=== PATIENT | female | born 1940 | race Caucasian/White ===

== ENCOUNTER 2016-04-09 15:07 | Inpatient (IN) | payer MEDICARE, OTHER ==
[2016-04-09] MEDS ORDERED: HEPARIN SOD (PORCINE) 1,000 UNIT/ML 10 ML VIAL IV PRN ×2 (15:45→16:29)
[2016-04-09 16:26] LABS: HEMATOCRIT 40.7 % (36.0-47.0); HEMOGLOBIN 13.1 g/dL (12.0-15.5); HGB HCT DIFFERENCE -1.4; MEAN CORPUSCULAR HEMOGLOBIN 29.4 pg (27.0-33.4); MEAN CORPUSCULAR HGB CONC 32.2 g/dL (32.0-36.0); MEAN CORPUSCULAR VOLUME 91 fl (80-97); RED BLOOD COUNT 4.46 10^6/uL (3.72-5.28); RED CELL DISTRIBUTION WIDTH 16.1 % (11.5-14.0); WHITE BLOOD COUNT 9.5 10^3/uL (4.0-10.5)
[2016-04-09 16:45] LABS: PROTHROMBIN TIME 12.9 SEC (11.4-15.4)
[2016-04-09 16:46] LABS: ALANINE AMINOTRANSFERASE 18 U/L (9-52); ALKALINE PHOSPHATASE 120 U/L (38-126); ANION GAP 13 (5-19); ASPARTATE AMINO TRANSFERASE 20 U/L (14-36); BILIRUBIN,TOTAL 0.2 mg/dL (0.2-1.3); BLOOD UREA NITROGEN 13 mg/dL (7-20); CALCIUM 9.5 mg/dL (8.4-10.2); CARBON DIOXIDE 21 mmol/L (22-30); CHLORIDE 106 mmol/L (98-107); CREATININE RESULT 0.94 mg/dL (0.52-1.25); GLUCOSE 76 mg/dL (75-110); PARTIAL THROMBOPLASTIN TIME 26.5 SEC (23.5-35.8); POTASSIUM 4.7 mmol/L (3.6-5.0); SODIUM 140.1 mmol/L (137-145); TOTAL PROTEIN 7.2 g/dL (6.3-8.2)
[2016-04-09] MEDS: HEPARIN SODIUM,PORCINE/D5W 25,000 UNIT/250 ML RTUINJ IV PRN (17:16)
[2016-04-09] MEDS ORDERED: ALBUTEROL SULFATE 0.083% NEB 2.5 MG/3 ML AMPUL NEB PRN ×2 (20:02→20:47)
[2016-04-09] MEDS ORDERED: (PENDING PHARMACY ID) (Oxycodone Hcl/Acetaminophen [Percocet 7.5-325 Mg Tablet] 1 EACH) PO PRN (20:02)
[2016-04-09] MEDS ORDERED: (PENDING PHARMACY ID) (Buspirone Hcl [Buspar 5 Mg Tablet] 7.5 MG) PO SCH (20:15)
--- NOTE | 2016-04-09 20:18 | PDOC H&P ---
History of Present Illness Admission Date/PCP: 04/09/16 15:07 SARITA CASTILLO History of Present Illness: SUSAN BINGHAM is a 75 year old female patient apparently saw the computer console operator, Dr. Rosen today in the office because of progressive shortness of breath CTA chest was requested and he showed bilateral emphysematous changes. There is residual infiltrate in the right lower lobe posteriorly. There is minimal bibasilar pleural thickening right more than left. There is right basilar atelectasis or scarring there is no effusions. Thrombus in the right lower lobe main pulmonary artery this is increased in size when compared to January. The thrombus extends into the proximal segmental branches. The left pulmonary artery and branches are patent. The amount of thrombosis as increased when compared to January do suggest a new event. She had a history of pulmonary embolism and she was on anticoagulant but this was discontinued. Patient had a long history of COPD and protein calorie on the nutrition a body mass index is 14 and she has a history of chronic tobacco use. DR Rosen called me this morning to advise me of this patient and that she needed to be admitted to the hospital for management of the acute pulmonary embolism, she is a patient of Dr. Castillo but am covering his service this weekend. Past Medical History Cardiac Medical History: Reports: Hyperlipidema, Hypertension, Pulmonary Embolism Pulmonary Medical History: Reports: Asthma, Bronchitis, Chronic Obstructive Pulmonary Disease (COPD), Pneumonia, Respiratory Failure, Sleep Apnea GI Medical History: Reports: Diverticulitis, Gastroesophageal Reflux Disease Musculoskeltal Medical History: Reports: Arthritis Psychiatric Medical History: Reports: Depression Past Surgical History Past Surgical History: Reports: Colostomy - with reversal, 6 years ago, Hysterectomy, Pacemaker Social History Smoking Status: Current Some Day Smoker Number of Years Smokin Last Time Smoked: today Frequency of Alcohol Use: None Hx Recreational Drug Use: No Drugs: None Hx Prescription Drug Abuse: No Family History Family History: CAD - This is in not immediate family members., DM, Hyperlipidemia, Hypertension Parental Family History Reviewed: Yes Children Family History Reviewed: Yes Sibling(s) Family History Reviewed.: Yes Medication/Allergy Home Medications: Acetazolamide [Diamox 250 mg Tab] 250 mg PO Q12 01/13/16 Citalopram Hydrobromide [Celexa] 40 mg PO DAILY 01/13/16 Montelukast Sodium 10 mg PO DAILY 01/13/16 Promethazine HCl 25 mg PO Q6H PRN 01/13/16 Roflumilast [Daliresp 500 mcg Tablet] 500 mcg PO QHS 01/13/16 Ropinirole HCl 1 mg PO TID 01/13/16 Albuterol Sulfate [Albuterol Sulfate 2.5mg/3 mL] 1 inh PO PRN PRN 01/14/16 Clonazepam [Klonopin 1 mg Tablet] 1 mg PO BID 01/14/16 Gabapentin 200 mg PO QPM 01/14/16 Oxycodone HCl/Acetaminophen [Percocet 7.5-325 Mg Tablet] 1 each PO TID PRN 01/13 Buspirone HCl [Buspar 5 mg Tablet] 7.5 mg PO BID 04/09/16 Docusate Sodium [Colace 100 mg Capsule] 100 mg PO DAILY 04/09/16 Zolpidem Tartrate [Ambien 5 mg Tablet] 5 mg PO QHS PRN 04/09/16 Allergies/Adverse Reactions: codeine [Codeine] Allergy (Unknown, Verified 11/04/14 17:36) erythromycin base [Erythromycin Base] Allergy (Unknown, Verified 11/04/14 17:36) Review of Systems Constitutional: ABSENT: chills, fever(s), headache(s), weight gain, weight loss Eyes: ABSENT: visual disturbances Ears: ABSENT: hearing changes Cardiovascular: PRESENT: dyspnea on exertion Respiratory: PRESENT: dyspnea Gastrointestinal: ABSENT: abdominal pain, constipation, diarrhea, hematemesis, hematochezia, nausea, vomiting Genitourinary: ABSENT: dysuria, hematuria Musculoskeletal: ABSENT: joint swelling Integumentary: ABSENT: rash, wounds Neurological: ABSENT: abnormal gait, abnormal speech, confusion, dizziness, focal weakness, syncope Psychiatric: ABSENT: anxiety, depression, homidical ideation, suicidal ideation Endocrine: ABSENT: cold intolerance, heat intolerance, menstrual abnormalities, polydipsia, polyuria Hematologic/Lymphatic: ABSENT: easy bleeding, easy bruising, lymphadenopathy Physical Exam Vital Signs: Temp Pulse Resp BP Pulse Ox 97.8 F 76 22 H 115/67 100 04/09/16 17:08 04/09/16 17:08 04/09/16 17:08 04/09/16 17:08 04/09/16 17:08 Intake & Output 0304/09/16 04/10/16 06:59 06:59 06:59 Intake Total 240 Balance 240 Weight 35.1 kg General appearance: PRESENT: thin Head exam: PRESENT: atraumatic, normocephalic Eye exam: PRESENT: conjunctiva pink, EOMI, PERRLA Ear exam: PRESENT: normal external ear exam Mouth exam: PRESENT: moist, tongue midline Neck exam: PRESENT: full ROM Respiratory exam: PRESENT: decreased breath sounds Cardiovascular exam: PRESENT: RRR, +S1, +S2 Pulses: PRESENT: normal dorsalis pedis pul, +2 pedal pulses bilateral Vascular exam: PRESENT: normal capillary refill GI/Abdominal exam: PRESENT: normal bowel sounds, soft Rectal exam: PRESENT: deferred Neurological exam: PRESENT: alert, awake, oriented to person, oriented to place , oriented to time, oriented to situation, CN II-XII grossly intact Psychiatric exam: PRESENT: appropriate affect, normal mood Skin exam: PRESENT: dry, intact, warm Results Laboratory Results: 04/09/16 16:00 04/09/16 16:00 04/09/16 04/09/16 16:00 16:00 WBC 9.5 RBC 4.46 Hgb 13.1 Hct 40.7 MCV 91 MCH 29.4 MCHC 32.2 RDW 16.1 H Plt Count 261 Sodium 140.1 Potassium 4.7 Chloride 106 Carbon Dioxide 21 L Anion Gap 13 BUN 13 Creatinine 0.94 Est GFR ( Amer) > 60 Est GFR (Non-Af Amer) 58 L Glucose 76 Calcium 9.5 Total Bilirubin 0.2 AST 20 ALT 18 Alkaline Phosphatase 120 Total Protein 7.2 Albumin 4.0 Assessment & Plan - Diagnosis (1) Pulmonary embolism Qualifiers: Pulmonary embolism type: other Chronicity: acute Acute cor pulmonale presence: without acute cor pulmonale Qualified Code(s): I26.99 - Other pulmonary embolism without acute cor pulmonale Is this a current diagnosis for this admission?: YesPlan: She has a history of pulmonary embolism , she has a known pulmonary embolus the left lower lobe main pulmonary artery, she will be treated with high-dose heparin per protocol (2) Protein-calorie undernutrition Is this a current diagnosis for this admission?: YesPlan: She has a history of protein calorie undernutrition from review of the old record (4) Coronary artery disease Qualifiers: Coronary Disease-Associated Artery/Lesion type: [place] artery [place] vs. transplanted heart: [place] heart Associated angina: angina presence unspecified Qualified Code(s): I25.10 - Atherosclerotic heart disease of [place] coronary artery without angina pectoris (6) Chronic obstructive lung disease Qualifiers: COPD type: unspecified COPD Qualified Code(s): J44.9 - Chronic obstructive pulmonary disease, unspecified Is this a current diagnosis for this admission?: YesPlan: The CAT scan showed residual infiltrate in the right lower lobe posteriorly though clinically she does not look like she has pneumonia, this infiltrate could be possibly chronic lung disease changes other than pneumonic changes will hold off antibiotic at this time unless patient shows symptoms and signs of pneumonia
[2016-04-09] MEDS ORDERED: GABAPENTIN 100 MG CAPSULE PO ONE (21:00)
[2016-04-09] MEDS ORDERED: DOCUSATE SODIUM 100 MG CAPSULE PO ONE (21:00)
[2016-04-09] MEDS ORDERED: CITALOPRAM HYDROBROMIDE 20 MG TABLET PO ONE (21:00)
[2016-04-09] MEDS: CLONAZEPAM 1 MG TABLET PO SCH (21:08)
[2016-04-09] MEDS: ROPINIROLE HCL 1 MG TABLET PO SCH (21:08)
[2016-04-09] MEDS: ZOLPIDEM TARTRATE 5 MG TABLET PO PRN (21:08)
[2016-04-09] MEDS: ACETAZOLAMIDE 250 MG TABLET PO SCH (21:09)
[2016-04-09 21:10] LABS: APPEARANCE,URINE CLEAR; BILIRUBIN,URINE NEGATIVE (NEGATIVE); GLUCOSE, URINE NEGATIVE (NEGATIVE); KETONES,URINE NEGATIVE (NEGATIVE); LEUKOCYTE ESTERASE,URINE TRACE (NEGATIVE); NITRITE,URINE NEGATIVE (NEGATIVE); PROTEIN,URINE NEGATIVE (NEGATIVE); UROBILINOGEN,URINE NEGATIVE mg/dL (<2.0)
[2016-04-09] MEDS: ROFLUMILAST 500 MCG TABLET PO SCH (21:18)
[2016-04-09] MEDS: OXYCODONE-ACETAMINOPHEN 5-325 MG TABLET PO PRN (21:18)
[2016-04-09] MEDS: OXYCODONE HCL IR 5 MG TABLET PO PRN (21:19)
[2016-04-10] MEDS: ROPINIROLE HCL 1 MG TABLET PO SCH ×3 (05:51→22:02)
[2016-04-10] MEDS: DOCUSATE SODIUM 100 MG CAPSULE PO SCH (09:15)
[2016-04-10] MEDS: CLONAZEPAM 1 MG TABLET PO SCH ×2 (09:15→22:02)
[2016-04-10] MEDS: ACETAZOLAMIDE 250 MG TABLET PO SCH ×2 (09:15→22:00)
[2016-04-10] MEDS: CITALOPRAM HYDROBROMIDE 20 MG TABLET PO SCH (09:16)
[2016-04-10] MEDS: OXYCODONE-ACETAMINOPHEN 5-325 MG TABLET PO PRN ×2 (09:17→22:00)
--- NOTE | 2016-04-10 16:35 | PDOC PROGRESS REPORT ---
Subjective Progress Note for:: 04/10/16 Subjective:: She was admitted yesterday because of right pulmonary embolism and she is on IV heparin infusion Physical Exam Vital Signs: Temp Pulse Resp BP Pulse Ox 97.6 F 61 17 98/52 L 99 04/10/16 10:42 04/10/16 10:42 04/10/16 10:42 04/10/16 10:42 04/10/16 10:42 Intake & Output 04/09/16 04/10/16 04/11/16 06:59 06:59 06:59 Intake Total 324 120 Output Total 350 600 Balance -26 -480 Weight 35.2 kg General appearance: PRESENT: no acute distress Eye exam: PRESENT: PERRLA Respiratory exam: PRESENT: clear to auscultation luci Cardiovascular exam: PRESENT: +S1, +S2 GI/Abdominal exam: PRESENT: soft Neurological exam: PRESENT: alert, CN II-XII grossly intact Results Laboratory Results: 04/09/16 16:00 04/09/16 16:00 04/09/16 04/09/16 16:00 20:10 Sodium 140.1 Potassium 4.7 Chloride 106 Carbon Dioxide 21 L Anion Gap 13 BUN 13 Creatinine 0.94 Est GFR ( Amer) > 60 Est GFR (Non-Af Amer) 58 L Glucose 76 Calcium 9.5 Total Bilirubin 0.2 AST 20 ALT 18 Alkaline Phosphatase 120 Total Protein 7.2 Albumin 4.0 Urine Color STRAW Urine Appearance CLEAR Urine pH 7.0 Ur Specific [place] 1.010 Urine Protein NEGATIVE Urine Glucose (UA) NEGATIVE Urine Ketones NEGATIVE Urine Blood NEGATIVE Urine Nitrite NEGATIVE Ur Leukocyte Esterase TRACE H Urine WBC (Auto) 3 Assessment & Plan - Diagnosis (1) Pulmonary embolism Qualifiers: Pulmonary embolism type: other Chronicity: acute Acute cor pulmonale presence: without acute cor pulmonale Qualified Code(s): I26.99 - Other pulmonary embolism without acute cor pulmonale Is this a current diagnosis for this admission?: YesPlan: She will continue IV heparin for a total of 7 days, the other option is to treat with loading dose of Eliquis which is 10 mg p.o. twice daily for 7 days but because of the recurrent nature of the embolism and the fact that it is large I would prefer the IV heparin to be continued for 7 days after which she can be transitioned to a maintenance dose of Eliquis 5 mg p.o. twice daily (2) Protein-calorie undernutrition Is this a current diagnosis for this admission?: Yes (4) Coronary artery disease Qualifiers: Coronary Disease-Associated Artery/Lesion type: [place] artery [place] vs. transplanted heart: [place] heart Associated angina: angina presence unspecified Qualified Code(s): I25.10 - Atherosclerotic heart disease of [place] coronary artery without angina pectoris (5) H/O cardiac pacemaker Is this a current diagnosis for this admission?: Yes (6) Chronic obstructive lung disease Qualifiers: COPD type: unspecified COPD Qualified Code(s): J44.9 - Chronic obstructive pulmonary disease, unspecified Is this a current diagnosis for this admission?: Yes
[2016-04-10] MEDS: GABAPENTIN 100 MG CAPSULE PO SCH (17:41)
[2016-04-10] MEDS: ZOLPIDEM TARTRATE 5 MG TABLET PO PRN (22:01)
[2016-04-10] MEDS: MONTELUKAST SODIUM 10 MG TABLET PO SCH (22:01)
[2016-04-10] MEDS: ROFLUMILAST 500 MCG TABLET PO SCH (22:02)
[2016-04-11] MEDS: HEPARIN SODIUM,PORCINE/D5W 25,000 UNIT/250 ML RTUINJ IV PRN (01:21)
[2016-04-11] MEDS: OXYCODONE HCL IR 5 MG TABLET PO PRN (05:36)
[2016-04-11] MEDS: OXYCODONE-ACETAMINOPHEN 5-325 MG TABLET PO PRN ×2 (05:36→21:22)
[2016-04-11] MEDS: ROPINIROLE HCL 1 MG TABLET PO SCH ×3 (05:36→21:19)
[2016-04-11] MEDS: CITALOPRAM HYDROBROMIDE 20 MG TABLET PO SCH (09:12)
[2016-04-11] MEDS: CLONAZEPAM 1 MG TABLET PO SCH ×2 (09:12→21:19)
[2016-04-11] MEDS: ACETAZOLAMIDE 250 MG TABLET PO SCH ×2 (09:12→21:19)
[2016-04-11] MEDS: DOCUSATE SODIUM 100 MG CAPSULE PO SCH (09:12)
--- NOTE | 2016-04-11 15:32 | PDOC PROGRESS REPORT ---
Subjective Progress Note for:: 04/11/16 Subjective:: She was admitted on Tuesday because of a large pulmonary embolism affecting the right lung, she is on intravenous heparin hopefully for 7 days, this will correlate to the duration for the loading dose of Eliquis. I prefer that she uses intravenous heparin because of the large size of the thrombus and the fact that it is recurrent pulmonary embolism. She will need a lifelong anticoagulation. Physical Exam Vital Signs: Temp Pulse Resp BP Pulse Ox 98.2 F 83 17 98/45 L 97 04/11/16 11:22 04/11/16 14:00 04/11/16 11:22 04/11/16 11:22 04/11/16 11:22 Intake & Output 04/10/16 04/11/16 04/12/16 06:59 06:59 06:59 Intake Total 324 1679 358 Output Total 350 1751 600 Balance -26 -72 -242 Weight 35.2 kg 41.4 kg General appearance: PRESENT: no acute distress Eye exam: PRESENT: PERRLA Respiratory exam: PRESENT: decreased breath sounds Cardiovascular exam: PRESENT: +S1, +S2 GI/Abdominal exam: PRESENT: soft Neurological exam: PRESENT: alert, CN II-XII grossly intact Results Laboratory Results: 04/09/16 16:00 04/09/16 16:00 04/09/16 18:58 Nasophary ([facility] Only) MRSA Surveillance Culture - Final NO MRSA RECOVERED Assessment & Plan - Diagnosis (1) Pulmonary embolism Qualifiers: Pulmonary embolism type: other Chronicity: acute Acute cor pulmonale presence: without acute cor pulmonale Qualified Code(s): I26.99 - Other pulmonary embolism without acute cor pulmonale Is this a current diagnosis for this admission?: YesPlan: She will continue intravenous heparin according to high-dose protocol (2) Protein-calorie undernutrition Is this a current diagnosis for this admission?: Yes (3) Chronic respiratory failure with hypoxia and hypercapnia Is this a current diagnosis for this admission?: Yes (4) Coronary artery disease Qualifiers: Coronary Disease-Associated Artery/Lesion type: [place] artery [place] vs. transplanted heart: [place] heart Associated angina: angina presence unspecified Qualified Code(s): I25.10 - Atherosclerotic heart disease of [place] coronary artery without angina pectoris Is this a current diagnosis for this admission?: Yes (5) H/O cardiac pacemaker Is this a current diagnosis for this admission?: Yes (6) Chronic obstructive lung disease Qualifiers: COPD type: unspecified COPD Qualified Code(s): J44.9 - Chronic obstructive pulmonary disease, unspecified Is this a current diagnosis for this admission?: Yes
[2016-04-11] MEDS: GABAPENTIN 100 MG CAPSULE PO SCH (17:53)
[2016-04-11] MEDS: MONTELUKAST SODIUM 10 MG TABLET PO SCH (21:19)
[2016-04-11] MEDS: ROFLUMILAST 500 MCG TABLET PO SCH ×2 (21:20→21:50)
[2016-04-11] MEDS: ZOLPIDEM TARTRATE 5 MG TABLET PO PRN (21:20)
[2016-04-12] MEDS: OXYCODONE HCL IR 5 MG TABLET PO PRN ×2 (03:29→22:03)
[2016-04-12] MEDS: ROPINIROLE HCL 1 MG TABLET PO SCH ×3 (05:09→21:59)
[2016-04-12] MEDS: DOCUSATE SODIUM 100 MG CAPSULE PO SCH (09:33)
[2016-04-12] MEDS: CITALOPRAM HYDROBROMIDE 20 MG TABLET PO SCH (09:33)
[2016-04-12] MEDS: CLONAZEPAM 1 MG TABLET PO SCH ×2 (09:33→21:58)
[2016-04-12] MEDS: ACETAZOLAMIDE 250 MG TABLET PO SCH ×2 (09:33→21:59)
[2016-04-12] MEDS: OXYCODONE-ACETAMINOPHEN 5-325 MG TABLET PO PRN ×2 (09:34→22:03)
[2016-04-12] MEDS: HEPARIN SODIUM,PORCINE/D5W 25,000 UNIT/250 ML RTUINJ IV PRN (09:36)
[2016-04-12] MEDS: BUSPIRONE HCL 10 MG TABLET PO SCH ×2 (15:14→21:59)
[2016-04-12 16:35] LABS: HEMATOCRIT 37.1 % (36.0-47.0); HEMOGLOBIN 11.7 g/dL (12.0-15.5); MEAN CORPUSCULAR HEMOGLOBIN 28.7 pg (27.0-33.4); MEAN CORPUSCULAR HGB CONC 31.6 g/dL (32.0-36.0); MEAN CORPUSCULAR VOLUME 91 fl (80-97); RED BLOOD COUNT 4.09 10^6/uL (3.72-5.28); RED CELL DISTRIBUTION WIDTH 16.1 % (11.5-14.0); WHITE BLOOD COUNT 6.9 10^3/uL (4.0-10.5)
[2016-04-12] MEDS ORDERED: APIXABAN 2.5 MG TABLET PO ONE (19:00)
[2016-04-12] MEDS: GABAPENTIN 100 MG CAPSULE PO SCH (19:16)
[2016-04-12] MEDS: MONTELUKAST SODIUM 10 MG TABLET PO SCH (21:58)
[2016-04-12] MEDS: ZOLPIDEM TARTRATE 5 MG TABLET PO PRN (22:04)
[2016-04-13] MEDS: BUSPIRONE HCL 10 MG TABLET PO SCH ×3 (06:22→21:31)
[2016-04-13] MEDS: OXYCODONE-ACETAMINOPHEN 5-325 MG TABLET PO PRN ×2 (06:22→21:30)
[2016-04-13] MEDS: OXYCODONE HCL IR 5 MG TABLET PO PRN ×2 (06:23→21:32)
[2016-04-13] MEDS: ROPINIROLE HCL 1 MG TABLET PO SCH ×3 (06:37→21:31)
--- NOTE | 2016-04-13 08:13 | PDOC PROGRESS REPORT ---
Subjective Progress Note for:: 04/13/16 Subjective:: No chest pain or worsening difficulty with breathing. No nausea, vomiting, or abdominal pain. Currently off IV heparin infusion. She has been started on Eliquis therapy. Physical Exam Vital Signs: Temp Pulse Resp BP Pulse Ox 97.5 F 59 L 16 93/52 L 99 04/13/16 04:05 04/13/16 04:05 04/13/16 04:05 04/13/16 04:05 04/13/16 04:05 Intake & Output 04/12/16 04/13/16 04/14/16 06:59 06:59 06:59 Intake Total 1794 1792 Output Total 1725 1000 Balance 69 792 Weight 39.9 kg 40.2 kg Physical Exam: General appearance: PRESENT: no acute distress, cooperative, mild distress - with supplemental oxygen in use., thin Eye exam: PRESENT: conjunctiva pink, EOMI, PERRLA. ABSENT: scleral icterus Neck exam: PRESENT: full ROM. ABSENT: carotid bruit, JVD, lymphadenopathy, thyromegaly Respiratory exam: PRESENT: crackles - scattered, decreased breath sounds Cardiovascular exam: PRESENT: RRR. ABSENT: diastolic murmur, rubs, systolic murmur GI/Abdominal exam: PRESENT: normal bowel sounds, soft. ABSENT: distended, guarding, mass, organomegaly, rebound, tenderness Extremities exam: PRESENT: full ROM Musculoskeletal exam: PRESENT: deformity - related to arthritis involvement of multiple joints. Psychiatric exam: PRESENT: appropriate affect, normal mood. ABSENT: homicidal ideation, suicidal ideation Results Laboratory Results: 04/12/16 16:20 04/09/16 16:00 04/12/16 16:20 WBC 6.9 RBC 4.09 Hgb 11.7 L Hct 37.1 MCV 91 MCH 28.7 MCHC 31.6 L RDW 16.1 H Plt Count 267 Assessment & Plan - Diagnosis (1) Pulmonary embolism Qualifiers: Pulmonary embolism type: other Chronicity: acute Acute cor pulmonale presence: without acute cor pulmonale Qualified Code(s): I26.99 - Other pulmonary embolism without acute cor pulmonale Is this a current diagnosis for this admission?: YesPlan: See attending physician order. (2) Chronic respiratory failure with hypoxia and hypercapnia Is this a current diagnosis for this admission?: YesPlan: See attending physician order. (3) HLD (hyperlipidemia) Qualifiers: Hyperlipidemia type: pure hypercholesterolemia Qualified Code(s): E78.00 - Pure hypercholesterolemia, unspecified; E78.0 - Pure hypercholesterolemia Is this a current diagnosis for this admission?: YesPlan: See attending physician order. (4) HTN (hypertension) Qualifiers: Hypertension type: essential hypertension Qualified Code(s): I10 - Essential (primary) hypertension Is this a current diagnosis for this admission?: YesPlan: See attending physician order. (5) Kwybm-Ckafakhru-Ulzcf syndrome Is this a current diagnosis for this admission?: YesPlan: See attending physician order. - Time Time Spent with patient: 25-34 minutes Medications reviewed and adjusted accordingly: Yes Anticipated discharge: Home with Homehealth - Inpatient Certification Medical Necessity: Need Close Monitoring Due to Risk of Patient Decompensation, Risk of Complication if Not Cared For in Hospital Post Hospital Care: D/C [employer] Documentation - Plan Summary Plan Summary: See attending physician order.
[2016-04-13] MEDS: DOCUSATE SODIUM 100 MG CAPSULE PO SCH (09:28)
[2016-04-13] MEDS: CITALOPRAM HYDROBROMIDE 20 MG TABLET PO SCH (09:28)
[2016-04-13] MEDS: CLONAZEPAM 1 MG TABLET PO SCH ×2 (09:28→21:31)
[2016-04-13] MEDS: ACETAZOLAMIDE 250 MG TABLET PO SCH ×2 (09:29→21:32)
[2016-04-13] MEDS: APIXABAN 2.5 MG TABLET PO SCH ×2 (09:29→17:27)
[2016-04-13] MEDS: GABAPENTIN 100 MG CAPSULE PO SCH (17:27)
[2016-04-13] MEDS: ROFLUMILAST 500 MCG TABLET PO SCH (21:31)
[2016-04-13] MEDS: MONTELUKAST SODIUM 10 MG TABLET PO SCH (21:31)
[2016-04-13] MEDS: ZOLPIDEM TARTRATE 5 MG TABLET PO PRN (22:41)
[2016-04-14] MEDS: BUSPIRONE HCL 10 MG TABLET PO SCH ×3 (06:00→21:24)
[2016-04-14] MEDS: ROPINIROLE HCL 1 MG TABLET PO SCH ×3 (06:00→21:24)
--- NOTE | 2016-04-14 08:18 | PDOC PROGRESS REPORT ---
Subjective Progress Note for:: 04/14/16 Subjective:: No chest pain or worsening difficulty with breathing. No nausea, vomiting, or abdominal pain. No reported bleeding episode. She has been started on Eliquis therapy. Physical Exam Vital Signs: Temp Pulse Resp BP Pulse Ox 97.4 F 64 18 113/55 L 96 04/14/16 04:12 04/14/16 04:12 04/14/16 04:12 04/14/16 04:12 04/14/16 04:12 Intake & Output 04/13/16 04/14/16 04/15/16 06:59 06:59 06:59 Intake Total 1792 597 Output Total 1000 Balance 792 597 Weight 40.2 kg 40.2 kg Physical Exam: General appearance: PRESENT: no acute distress, cooperative, mild distress - with supplemental oxygen in use., thin Eye exam: PRESENT: conjunctiva pink, EOMI, PERRLA. ABSENT: scleral icterus Neck exam: PRESENT: full ROM. ABSENT: carotid bruit, JVD, lymphadenopathy, thyromegaly Respiratory exam: PRESENT: crackles - scattered, decreased breath sounds Cardiovascular exam: PRESENT: RRR. ABSENT: diastolic murmur, rubs, systolic murmur GI/Abdominal exam: PRESENT: normal bowel sounds, soft. ABSENT: distended, guarding, mass, organomegaly, rebound, tenderness Extremities exam: PRESENT: full ROM Musculoskeletal exam: PRESENT: deformity - related to arthritis involvement of multiple joints. Psychiatric exam: PRESENT: appropriate affect, normal mood. ABSENT: homicidal ideation, suicidal ideation Results Laboratory Results: 04/12/16 16:20 04/09/16 16:00 Assessment & Plan - Diagnosis (1) Pulmonary embolism Qualifiers: Pulmonary embolism type: other Chronicity: acute Acute cor pulmonale presence: without acute cor pulmonale Qualified Code(s): I26.99 - Other pulmonary embolism without acute cor pulmonale Is this a current diagnosis for this admission?: YesPlan: See attending physician order. (2) Chronic respiratory failure with hypoxia and hypercapnia Is this a current diagnosis for this admission?: YesPlan: See attending physician order. (3) HLD (hyperlipidemia) Qualifiers: Hyperlipidemia type: pure hypercholesterolemia Qualified Code(s): E78.00 - Pure hypercholesterolemia, unspecified; E78.0 - Pure hypercholesterolemia Is this a current diagnosis for this admission?: YesPlan: See attending physician order. (4) HTN (hypertension) Qualifiers: Hypertension type: essential hypertension Qualified Code(s): I10 - Essential (primary) hypertension Is this a current diagnosis for this admission?: YesPlan: See attending physician order. (5) Rxehc-Ycrnibnas-Hpeoj syndrome Is this a current diagnosis for this admission?: YesPlan: See attending physician order. - Time Time Spent with patient: 25-34 minutes Medications reviewed and adjusted accordingly: Yes Anticipated discharge: Home with Homehealth - Inpatient Certification Medical Necessity: Need Close Monitoring Due to Risk of Patient Decompensation, Need For Continuous Telemetry Monitoring, Risk of Complication if Not Cared For in Hospital - Plan Summary Plan Summary: See attending physician orders.
[2016-04-14] MEDS: CLONAZEPAM 1 MG TABLET PO SCH ×2 (09:20→21:24)
[2016-04-14] MEDS: DOCUSATE SODIUM 100 MG CAPSULE PO SCH (09:20)
[2016-04-14] MEDS: ACETAZOLAMIDE 250 MG TABLET PO SCH ×2 (09:20→21:24)
[2016-04-14] MEDS: CITALOPRAM HYDROBROMIDE 20 MG TABLET PO SCH (09:20)
[2016-04-14] MEDS: APIXABAN 2.5 MG TABLET PO SCH ×2 (09:21→17:35)
[2016-04-14] MEDS: OXYCODONE HCL IR 5 MG TABLET PO PRN ×2 (10:15→19:36)
[2016-04-14] MEDS: OXYCODONE-ACETAMINOPHEN 5-325 MG TABLET PO PRN ×2 (10:15→19:36)
[2016-04-14] MEDS: GABAPENTIN 100 MG CAPSULE PO SCH (17:35)
[2016-04-14] MEDS: MONTELUKAST SODIUM 10 MG TABLET PO SCH (21:24)
[2016-04-14] MEDS: ROFLUMILAST 500 MCG TABLET PO SCH (21:24)
[2016-04-14] MEDS: ZOLPIDEM TARTRATE 5 MG TABLET PO PRN (21:24)
[2016-04-15] MEDS: OXYCODONE HCL IR 5 MG TABLET PO PRN (06:51)
[2016-04-15] MEDS: ROPINIROLE HCL 1 MG TABLET PO SCH (06:51)
[2016-04-15] MEDS: BUSPIRONE HCL 10 MG TABLET PO SCH (06:52)
[2016-04-15] MEDS: OXYCODONE-ACETAMINOPHEN 5-325 MG TABLET PO PRN (06:52)
--- NOTE | 2016-04-15 07:56 | PDOC DISCHARGE SUMMARY ---
General - Admit/Disc Date/PCP Admission Date/Primary Care Provider: 04/09/16 15:07 SARITA CASTILLO Discharge Date: 04/15/16 - Discharge Diagnosis (1) Pulmonary embolism Is this a current diagnosis for this admission?: Yes (2) Chronic respiratory failure with hypoxia and hypercapnia Is this a current diagnosis for this admission?: Yes (3) HLD (hyperlipidemia) Is this a current diagnosis for this admission?: Yes (4) HTN (hypertension) Is this a current diagnosis for this admission?: Yes (5) Ydufo-Whfthrqgg-Viasr syndrome Is this a current diagnosis for this admission?: Yes - Additional Information Discharge Diet: As Tolerated - with oral supplementation Discharge Activity: Activity As Tolerated, Energy Conservation Home Medications: Acetazolamide [Diamox 250 mg Tab] 250 mg PO Q12 01/13/16 Citalopram Hydrobromide [Celexa] 40 mg PO DAILY 01/13/16 Montelukast Sodium 10 mg PO DAILY 01/13/16 Promethazine HCl 25 mg PO Q6H PRN 01/13/16 Roflumilast [Daliresp 500 mcg Tablet] 500 mcg PO QHS 01/13/16 Ropinirole HCl 1 mg PO TID 01/13/16 Albuterol Sulfate [Albuterol Sulfate 2.5mg/3 mL] 1 inh PO PRN PRN 01/14/16 Clonazepam [Klonopin 1 mg Tablet] 1 mg PO BID 01/14/16 Gabapentin 200 mg PO QPM 01/14/16 Oxycodone HCl/Acetaminophen [Percocet 7.5-325 mg Tablet] 1 each PO TID PRN 01/13 Buspirone HCl [Buspar 5 mg Tablet] 7.5 mg PO BID 04/09/16 Docusate Sodium [Colace 100 mg Capsule] 100 mg PO DAILY 04/09/16 Zolpidem Tartrate [Ambien 5 mg Tablet] 5 mg PO QHS PRN 04/09/16 Apixaban [Eliquis 2.5 mg Tablet] 2.5 mg PO BID #60 tablet 04/15/16 History of Present Illness Patient complains of: Shortness of breath History of Present Illness: SUSAN BINGHAM is a 75 year old female patient apparently saw the construction area manager, Dr. Rosen today in the office because of progressive shortness of breath CTA chest was requested and he showed bilateral emphysematous changes. There is residual infiltrate in the right lower lobe posteriorly. There is minimal bibasilar pleural thickening right more than left. There is right basilar atelectasis or scarring there is no effusions. Thrombus in the right lower lobe main pulmonary artery this is increased in size when compared to January. The thrombus extends into the proximal segmental branches. The left pulmonary artery and branches are patent. The amount of thrombosis as increased when compared to January do suggest a new event. She had a history of pulmonary embolism and she was on anticoagulant but this was discontinued. Patient had a long history of COPD and protein calorie on the nutrition a body mass index is 14 and she has a history of chronic tobacco use. DR Rosen called me this morning to advise me of this patient and that she needed to be admitted to the hospital for management of the acute pulmonary embolism, she is a patient of Dr. Castillo but am covering his service this weekend. Hospital Course Hospital Course: Patient was managed with IV heparin initially and eventually changed to oral Eliquis. Breathing remain fair at rest but exertion continue to elicit SOB at her baseline end stage COPD. Her vitals remain fairly stable. Patient is agreeable to discharge home today. She resent [employer] arranged with [facility] [employer]. She will follow up in office as instructed upon discharge. Patient will follow up with Dr. Rosen as instructed upon discharge. Physical Exam Vital Signs: Temp Pulse Resp BP Pulse Ox 98.1 F 63 22 H 102/50 L 98 04/15/16 03:19 04/15/16 07:00 04/15/16 03:19 04/15/16 03:19 04/15/16 03:19 Intake & Output 04/14/16 04/15/16 04/16/16 06:59 06:59 06:59 Intake Total 597 1480 Output Total 0 Balance 597 1480 Weight 40.2 kg 39.8 kg Physical Exam: General appearance: PRESENT: no acute distress, cooperative, mild distress - with supplemental oxygen in use., thin Eye exam: PRESENT: conjunctiva pink, EOMI, PERRLA. ABSENT: scleral icterus Neck exam: PRESENT: full ROM. ABSENT: carotid bruit, JVD, lymphadenopathy, thyromegaly Respiratory exam: PRESENT: crackles - scattered, decreased breath sounds Cardiovascular exam: PRESENT: RRR. ABSENT: diastolic murmur, rubs, systolic murmur GI/Abdominal exam: PRESENT: normal bowel sounds, soft. ABSENT: distended, guarding, mass, organomegaly, rebound, tenderness Extremities exam: PRESENT: full ROM Musculoskeletal exam: PRESENT: deformity - related to arthritis involvement of multiple joints. Psychiatric exam: PRESENT: appropriate affect, normal mood. ABSENT: homicidal ideation, suicidal ideation Results Laboratory Results: 04/12/16 16:20 04/09/16 16:00 Qualifiers PATEINT BEING DISCHARGED WITH ANY OF THE FOLLOWING DIAGNOSIS?: No Plan Discharge Plan: D/C home today with [employer] services. Follow up in office as instructed upon discharge. Time Spent: Less than 30 Minutes
[2016-04-15] MEDS: APIXABAN 2.5 MG TABLET PO SCH (09:03)
[2016-04-15] MEDS: ACETAZOLAMIDE 250 MG TABLET PO SCH (09:04)
[2016-04-15] MEDS: CLONAZEPAM 1 MG TABLET PO SCH (09:04)
[2016-04-15] MEDS: CITALOPRAM HYDROBROMIDE 20 MG TABLET PO SCH (09:04)
[2016-04-15] MEDS: DOCUSATE SODIUM 100 MG CAPSULE PO SCH (09:05)
[2016-04-15 10:45] VITALS: BP 115/67
== END 2016-04-15 12:47 | disposition home health service (06) | DRG 176 ==
LOC: 3S 15:07
PROVIDERS: ADMIT Internal Medicine Geriatric Medicine; ATTEND Internal Medicine Geriatric Medicine
PROC: 3E0F73Z Introduction of Anti-inflammatory into Respiratory Tract, Via Natural or Artificial Opening (ICD-10-PCS; principal; 2016-04-09)
DX: I26.99 Other pulmonary embolism without acute cor pulmonale (principal); E46 Unspecified protein-calorie malnutrition; Z68.1 Body mass index [BMI] 19.9 or less, adult; J96.11 Chronic respiratory failure with hypoxia; J96.12 Chronic respiratory failure with hypercapnia; J44.9 Chronic obstructive pulmonary disease, unspecified; I25.10 Atherosclerotic heart disease of native coronary artery without angina pectoris; Z95.0 Presence of cardiac pacemaker; I45.6 Pre-excitation syndrome; I10 Essential (primary) hypertension; E78.00 Pure hypercholesterolemia, unspecified; F17.210 Nicotine dependence, cigarettes, uncomplicated; Z86.711 Personal history of pulmonary embolism; Z79.01 Long term (current) use of anticoagulants; K21.9 Gastro-esophageal reflux disease without esophagitis; J45.909 Unspecified asthma, uncomplicated; M19.90 Unspecified osteoarthritis, unspecified site; Z90.710 Acquired absence of both cervix and uterus; Z88.1 Allergy status to other antibiotic agents; Z88.6 Allergy status to analgesic agent
CPT/HCPCS: 36415; 71275; 80048; 80076; 81001; 82565; 85027; 85610; 85730; G8978-GP; G8979-GP; J1644; J3490

== ENCOUNTER → 2016-04-09 | Outpatient (CLI) | payer MEDICARE, OTHER ==
[~2016-04-09] MED LIST: APIXABAN 2.5 MG TABLET PO SCH
--- NOTE | 2016-04-12 18:22 | PDOC PROGRESS REPORT ---
Subjective Progress Note for:: 04/12/16 Subjective:: Patient remain on supplemental oxygen. Denied any chest pain. No reported fever or chills. No nausea, vomiting or abdominal pain. No abnormal bleeding. Interval notes appreciated. Her CTA chest suggested progression in her RLL main pulmonary artery thrombus with small extension intop segmental branches of RLL with increase load of thrombus comparative to 01/19/2016 CTA chest findings. She remain on IV heparin infusion with therapeutic PTT level. Physical Exam General appearance: PRESENT: no acute distress, cooperative, mild distress - with supplemental oxygen in use., thin Eye exam: PRESENT: conjunctiva pink, EOMI, PERRLA. ABSENT: scleral icterus Neck exam: PRESENT: full ROM. ABSENT: carotid bruit, JVD, lymphadenopathy, thyromegaly Respiratory exam: PRESENT: crackles - scattered, decreased breath sounds Cardiovascular exam: PRESENT: RRR. ABSENT: diastolic murmur, rubs, systolic murmur GI/Abdominal exam: PRESENT: normal bowel sounds, soft. ABSENT: distended, guarding, mass, organolmegaly, rebound, tenderness Extremities exam: PRESENT: full ROM Musculoskeletal exam: PRESENT: deformity - related to arthritis involvement of multiple joints. Psychiatric exam: PRESENT: appropriate affect, normal mood. ABSENT: homicidal ideation, suicidal ideation Results Laboratory Results: See [facility] for details. This was reviewed and contribute to my decision making on this case. Impressions: Chest/Abdomen CTA 04/09/16 09:23 IMPRESSION: 1. There is pulmonary embolus in the right lower lobe main pulmonary artery with small amount of thrombus extending into segmental branches of the right lower lobe. The amount of thrombus has increased when compared to January this suggests a new event. 2. Emphysematous changes, mild pleural thickening and minimal residual infiltrate in the right lower lobe. Overall aeration is improved when compared to prior study. Assessment & Plan - Diagnosis (1) Pulmonary embolism Qualifiers: Pulmonary embolism type: other Chronicity: acute Acute cor pulmonale presence: without acute cor pulmonale Qualified Code(s): I26.99 - Other pulmonary embolism without acute cor pulmonale Is this a current diagnosis for this admission?: YesPlan: D/C IV heparin infusion. Start on Eliquis 2.5 mg p.o bid (2) Chronic respiratory failure with hypoxia and hypercapnia Is this a current diagnosis for this admission?: YesPlan: See attending physician order. (3) H/O cardiac pacemaker Is this a current diagnosis for this admission?: YesPlan: See attending physician order. (4) HLD (hyperlipidemia) Qualifiers: Hyperlipidemia type: pure hypercholesterolemia Qualified Code(s): E78.00 - Pure hypercholesterolemia, unspecified; E78.0 - Pure hypercholesterolemia Is this a current diagnosis for this admission?: YesPlan: See attending physician order. (5) HTN (hypertension) Qualifiers: Hypertension type: essential hypertension Qualified Code(s): I10 - Essential (primary) hypertension Is this a current diagnosis for this admission?: YesPlan: See attending physician order. (6) Okjwq-Ytemjdysr-Ifqpw syndrome Is this a current diagnosis for this admission?: YesPlan: See attending physician order. - Time Time Spent with patient: 25-34 minutes Medications reviewed and adjusted accordingly: Yes Anticipated discharge: Home with Homehealth Within: Other - Inpatient Certification Medical Necessity: Need Close Monitoring Due to Risk of Patient Decompensation, Need For Continuous Telemetry Monitoring, Risk of Complication if Not Cared For in Hospital Post Hospital Care: D/C [employer] Documentation - Plan Summary Plan Summary: See attending physician order.
== END ==
LOC: RAD 09:24
PROVIDERS: ATTEND Nurse Practitioner Adult Health
DX: I26.99 Other pulmonary embolism without acute cor pulmonale (principal)
CPT/HCPCS: 71275; 82565

== ENCOUNTER 2016-05-23 19:01 | Inpatient (IN) | payer MEDICARE, OTHER ==
[2016-05-23] MEDS ORDERED: METHYLPREDNISOLONE INJ 125 MG/2 ML SDV IV ONE (19:22)
[2016-05-23] MEDS ORDERED: IPRATROPIUM BROMIDE 0.02% NEB 0.5 MG/2.5 ML AMPUL NEB PRN (19:24)
[2016-05-23] MEDS ORDERED: ALBUTEROL SULFATE 0.083% NEB 2.5 MG/3 ML AMPUL NEB ONE (19:24)
[2016-05-23] MEDS ORDERED: METHYLPREDNISOLONE INJ 125 MG/2 ML SDV ONE (19:25)
[2016-05-23] MEDS ORDERED: MAGNESIUM SULFATE/D5W 2 GM/200 ML RTUPB IV ONE (19:25)
--- NOTE | 2016-05-23 19:25 | ER Document Report ---
ED Respiratory Problem - General Mode of Arrival: Ambulatory Information source: Patient, Relative TRAVEL OUTSIDE OF THE [place] IN LAST 30 DAYS: No - HPI Patient complains to provider of: Short of breath Associated symptoms: Other - See above <LARA DOLAN - Last Filed: 05/24/16 00:13> <ELDON SAAVEDRA - Last Filed: 05/25/16 20:56> - General Chief Complaint: Shortness Of Breath Stated Complaint: Short of breath Notes: Patient is a 75 year old female, with a past medical history including COPD and PE, who presents to the emergency department complaining of shortness of breath onset 2 days ago. Patient states that she is normally on 2L of home air but has switched to 3L due to her symptoms, patient was at 85% on her 3L when she arrived. Per daughter, patient appears to be struggling more than normal to catch her breath. Patient has had issues with blood clots in the past and is currently taking Eliquis with no bleeding complications. Patient also complains of cough, diarrhea, chronic chills, and her daughter states patient had an episode of fecal incontinence en route. Patient denies nausea, vomiting, and any new/changing medications. 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 Patient has had her flu and pneumonia vaccinations this year. PCP: Dr. Jackson (LARA DOLAN) - Related Data Allergies/Adverse Reactions: codeine [Codeine] Allergy (Unknown, Verified 11/04/14 17:36) erythromycin base [Erythromycin Base] Allergy (Unknown, Verified 11/04/14 17:36) Home Medications: Current Home Medications Acetazolamide [Diamox 250 mg Tab] 250 mg PO Q12 05/24/16 [History] Albuterol Sulfate [Albuterol Sulfate 2.5mg/3 mL] 2.5 ml NEB TIDP PRN 05/24/16 [ History] Apixaban [Eliquis] 2.5 mg PO Q12 05/24/16 [History] Buspirone HCl [Buspar 15 mg Tablet] 7.5 mg PO BID 05/24/16 [History] Citalopram Hydrobromide [Celexa 40 mg Tablet] 40 mg PO DAILY 05/24/16 [History] Clonazepam [Klonopin 1 mg Tablet] 1 mg PO Q12 05/24/16 [History] Docusate Sodium [Colace 100 mg Capsule] 100 mg PO DAILY 05/24/16 [History] Fluticasone/Salmeterol [Advair 250-50 Diskus 14 Dose/Diskus] 1 puff IH BID 05/24 [History] Gabapentin [Neurontin 100 mg Capsule] 200 mg PO QPM 05/24/16 [History] Montelukast Sodium [Singulair 10 mg Tablet] 10 g PO DAILY 05/24/16 [History] Oxycodone HCl/Acetaminophen [Oxycodon-Acetaminophen 7.5-325] 1 tab PO TID [History] Pregabalin [Lyrica] 50 mg PO DAILY 05/24/16 [History] Promethazine HCl [Phenergan 25 mg Tablet] 25 mg PO Q6HP PRN 05/24/16 [History] Roflumilast [Daliresp 500 mcg Tablet] 500 mcg PO DAILY 05/24/16 [History] Ropinirole HCl 1 mg PO TID 05/24/16 [History] Tiotropium [place] [Spiriva Handihaler 5 Cap/Kit (18 Mcg/Cap)] 2 puff IH BID [History] Zolpidem Tartrate [Ambien 5 mg Tablet] 5 mg PO HSP PRN 05/24/16 [History] Past Medical History - General Information source: Patient - Social History Smoking Status: Unknown if Ever Smoked Family History: Reviewed & Not Pertinent, CAD - This is in not immediate family members., DM, Hyperlipidemia, Hypertension - Past Medical History Cardiac Medical History: Reports: Hx Hypercholesterolemia, Hx Hypertension, Hx Pulmonary Embolism, Other - HX WPW Pulmonary Medical History: Reports: Hx Asthma, Hx Bronchitis, Hx COPD, Hx Pneumonia, Hx Respiratory Failure, Hx Sleep Apnea Renal/ Medical History: Reports: Hx Kidney Stones - 20 year ago GI Medical History: Reports: Hx Diverticulitis, Hx Gastroesophageal Reflux Disease, Hx Ulcer Musculoskeltal Medical History: Reports Hx Arthritis Skin Medical History: Reports Hx MRSA Psychiatric Medical History: Reports: Hx Depression Past Surgical History: Reports: Hx Bowel Surgery - Old colostomy from a tear intestines resectioned, Hx Cardiac Surgery - pacemaker, Hx Colostomy - with reversal, 6 years ago, Hx Hysterectomy, Hx Pacemaker - Immunizations Immunizations up to date: Yes Hx Diphtheria, Pertussis, Tetanus Vaccination: Yes Hx Pneumococcal Vaccination: 06/04/11 <LARA DOLAN - Last Filed: 05/24/16 00:13> Review of Systems - Review of Systems Constitutional: See HPI, Chills EENT: No symptoms reported Cardiovascular: No symptoms reported Respiratory: See HPI, Cough, Short of breath Gastrointestinal: See HPI, Diarrhea, Fecal incontinence. denies: Nausea, Vomiting Genitourinary: No symptoms reported Female Genitourinary: No symptoms reported Musculoskeletal: No symptoms reported Skin: No symptoms reported Hematologic/Lymphatic: No symptoms reported Neurological/Psychological: No symptoms reported -: Yes All other systems reviewed and negative <LARA DOLAN - Last Filed: 05/24/16 00:13> Physical Exam - Vital signs Interpretation: Tachycardic - General General appearance: Alert In distress: Moderate - respiratory distress - HEENT Head: Normocephalic, Atraumatic - Respiratory Respiratory status: Respiratory distress - moderate, Retractions - Intercostal retractions Chest status: Nontender Breath sounds: Wheezing - Diffuse expiratory wheezing Chest palpation: Normal - Cardiovascular Rhythm: Tachycardia Heart sounds: Normal auscultation Murmur: No Pulses: Normal: Radial, Dorsalis pedis - Extremities General upper extremity: Normal inspection General lower extremity: Normal inspection - Neurological Neuro grossly intact: Yes Cognition: Normal Orientation: AAOx4 [place] Coma Scale Eye Opening: Spontaneous [place] Coma Scale Verbal: Oriented [place] Coma Scale Motor: Obeys Commands [place] Coma Scale Total: 15 Speech: Other - mild conversational dyspnea - Psychological Associated symptoms: Normal affect, Normal mood - Skin Skin Temperature: Warm Skin Moisture: Dry Skin Color: Normal <LARA DOLAN - Last Filed: 05/24/16 00:13> Course - Laboratory Result Diagrams: 05/23/16 19:31 05/23/16 19:31 - Consults Dr. Avendano Time consulted: 21:00 - Discussed patients condition, Dr. Avendano will admit <LARA DOLAN - Last Filed: 05/24/16 00:13> - Laboratory Result Diagrams: 05/25/16 06:34 05/25/16 06:34 <ELDON SAAVEDRA - Last Filed: 05/25/16 20:56> - Re-evaluation Re-evalutation: 05/23/16 19:26 Patient presents emergency, chief complaint of severe shortness of breath and tachycardia. On ED arrival patient is 75-year-old female with a history of COPD on 3 L of oxygen at home asthma and bilateral PEs diagnosed on 04/09/16. Patient is on blood thinner in the form of eliquis. She is arriving with 85% on 3 L nasal cannula which she is on at home. On physical examination she is alert and oriented 3 she is afebrile no nuchal rigidity or altered mental status. She has mild conversational dyspnea moderate respiratory distress. Her lungs are decreased movement with expiratory wheeze good pulses perfusion no chest pain. Rales. Immediately obtained IV access Solu-Medrol albuterol Atrovent magnesium EKG stat portable chest x-ray and labs. 05/23/16 23:02 Patient with blood gas showing a pH of 7.21, PCO2 of 64, PO2 of 96, CO2 of 26.9. Chest x-ray shows small pleural effusion but no pneumonia. Patient does have an elevated white count of 19,000 when ahead and gave her broad-spectrum IV antibiotics and lactic acid multiple reassessments at the bedside she still with slight respiratory distress but much improved maintaining her own O2 sats on her 3 L nasal cannula. States she feels significantly better. I contacted the on-call doctor for her primary care physician his can admit her to the hospital for further assessment and evaluation (ELDON SAAVEDRA) - Vital Signs Vital signs: Temp Pulse Resp BP Pulse Ox 97.8 F 105 H 22 H 108/59 L 99 05/25/16 19:28 05/25/16 19:48 05/25/16 19:48 05/25/16 19:28 05/25/16 19:48 - Laboratory Laboratory results interpreted by me: 05/23/16 05/23/16 05/23/16 19:31 19:31 19:31 WBC 19.3 H MCHC 30.7 L RDW 15.6 H Seg Neuts % (Manual) 85 H Lymphocytes % (Manual) 3 L Abs Neuts (Manual) 17.2 H Abs Monocytes (Manual) 1.5 H Carbonic Acid ABG pH ABG pCO2 ABG Total CO2 Glucose 171 H NT-Pro-B Natriuret Pep 1570 H 05/23/16 22:35 WBC MCHC RDW Seg Neuts % (Manual) Lymphocytes % (Manual) Abs Neuts (Manual) Abs Monocytes (Manual) Carbonic Acid 1.94 H ABG pH 7.21 L ABG pCO2 64.4 H ABG Total CO2 26.9 H Glucose NT-Pro-B Natriuret Pep Critical Care Note - Critical Care Note Total time excluding time spent on procedures (mins): 65 <ELDON SAAVEDRA - Last Filed: 05/25/16 20:56> Discharge <LARA DOLAN - Last Filed: 05/24/16 00:13> - Discharge Admitting Provider: [facility] Unit Admitted: [facility] <ELDON SAAVEDRA - Last Filed: 05/25/16 20:56> - Discharge Clinical Impression: acute copd exacerbation, Acute respiratory distress Condition: Stable Disposition: ADMITTED INPATIENT Scribe Attestation: 05/25/16 20:54 i personally performed the services described in the documentation, reviewed the documentation recorded by the scribe in my presence and it accurately and completely records my words and actions. (ELDON SAAVEDRA) Scribe Documentation - Scribe Written by Priscilla:: priscilla Mccrary, 05/23/162002 acting as scribe for :: Dajuan <LARA DOLAN - Last Filed: 05/24/16 00:13>
[2016-05-23] MEDS ORDERED: IPRATROPIUM/ALBUTEROL 0.5-2.5 MG/3 ML AMPUL NEB ONE (19:26)
[2016-05-23] MEDS ORDERED: MAGNESIUM SULFATE/D5W 100 ML IV SCH (19:30)
[2016-05-23 19:56] LABS: HEMATOCRIT 40.2 % (36.0-47.0); HEMOGLOBIN 12.3 g/dL (12.0-15.5); HGB HCT DIFFERENCE -3.3; MEAN CORPUSCULAR HEMOGLOBIN 27.9 pg (27.0-33.4); MEAN CORPUSCULAR HGB CONC 30.7 g/dL (32.0-36.0); MEAN CORPUSCULAR VOLUME 91 fl (80-97); RED BLOOD COUNT 4.42 10^6/uL (3.72-5.28); RED CELL DISTRIBUTION WIDTH 15.6 % (11.5-14.0); WHITE BLOOD COUNT 19.3 10^3/uL (4.0-10.5)
[2016-05-23 20:09] LABS: ANION GAP 13 (5-19); BLOOD UREA NITROGEN 19 mg/dL (7-20); CALCIUM 9.2 mg/dL (8.4-10.2); CARBON DIOXIDE 23 mmol/L (22-30); CHLORIDE 105 mmol/L (98-107); CREATININE RESULT 0.81 mg/dL (0.52-1.25); GLUCOSE 171 mg/dL (75-110); POTASSIUM 4.1 mmol/L (3.6-5.0); SODIUM 140.6 mmol/L (137-145)
[2016-05-23 20:12] LABS: BAND NEUTROPHILS % (MANUAL) 4 % (3-5); BASOPHILS % (MANUAL) 0 % (0-2); EOSINOPHILS % (MANUAL) 0 % (0-6); LYMPHOCYTES % (MANUAL) 3 % (13-45); TOTAL CELLS COUNTED 100
[2016-05-23 20:13] LABS: ANISOCYTOSIS SLIGHT; TOXIC GRANULATION SLIGHT
[2016-05-23 20:22] LABS: TROPONIN I < 0.012 ng/mL
[2016-05-23] MEDS ORDERED: CEFTRIAXONE INJ 1000 MG VIAL IV ONE (21:59)
[2016-05-23] MEDS ORDERED: PIPERACILLIN/TAZOBACTAM 3.375 GM VIAL IV ONE (22:00)
[2016-05-23 22:50] LABS: ARTERIAL BLOOD BASE EXCESS -4.2 mmol/L; ARTERIAL BLOOD O2 SATURATION 95.7 % (94-98)
[2016-05-24] MEDS ORDERED: ALBUTEROL SULFATE 0.083% NEB 2.5 MG/3 ML AMPUL NEB PRN (04:41)
--- NOTE | 2016-05-24 08:43 | EKG REPORT ---
SEVERITY:- ABNORMAL ECG - SINUS TACHYCARDIA PROBABLE LEFT ATRIAL ABNORMALITY LEFT ANTERIOR FASCICULAR BLOCK PROBABLE LEFT VENTRICULAR HYPERTROPHY : Confirmed by: Mervat Mancuso 24-May-2016 08:41:59
[2016-05-24] MEDS: CLONAZEPAM 1 MG TABLET PO SCH ×2 (09:30→21:23)
[2016-05-24] MEDS: LEVOFLOXACIN 750 MG TABLET PO SCH (09:30)
[2016-05-24] MEDS: ROPINIROLE HCL 1 MG TABLET PO SCH ×2 (09:31→15:17)
[2016-05-24] MEDS: MONTELUKAST SODIUM 10 MG TABLET PO SCH (09:31)
[2016-05-24] MEDS: APIXABAN 2.5 MG TABLET PO SCH ×2 (09:31→17:39)
[2016-05-24] MEDS: BUSPIRONE HCL 10 MG TABLET PO SCH ×2 (09:32→21:23)
[2016-05-24] MEDS: ASPIRIN 81 MG TABLET, CHEWABLE PO SCH (09:32)
[2016-05-24] MEDS: ACETAZOLAMIDE 250 MG TABLET PO SCH ×2 (09:32→21:23)
[2016-05-24] MEDS: CEFEPIME 1 GM/D5W RTU 50 ML IV SCH ×2 (09:50→21:22)
[2016-05-24] MEDS: IPRATROPIUM/ALBUTEROL 0.5-2.5 MG/3 ML AMPUL NEB PRN ×2 (10:23→16:47)
[2016-05-24] MEDS: OXYCODONE HCL IR 5 MG TABLET PO PRN (12:32)
[2016-05-24] MEDS: OXYCODONE-ACETAMINOPHEN 5-325 MG TABLET PO PRN ×2 (12:33→23:37)
--- NOTE | 2016-05-24 18:42 | PDOC H&P ---
History of Present Illness Admission Date/PCP: 05/23/16 23:09 SARITA ANNA Patient complains of: Worsening difficulty with brathing History of Present Illness: SUSAN BINGHAM is a 75 year old female known to my practice who presented to ED with worsening difficulty with breathing. Patient denied any associated chest pain or palpitation. She reported associated coughing with sputum production, chills but no definite fever. She was seen in the office 2 days prior to presentation at her baseline end stage COPD on supplemental oxygen at 2L/min. She demonstrated hypoxemia at 85% on 3L/min. No nausea or vomiting but had episode of fecal incontinence with diarrhea prior to her arrival at the ED. There is history of Pulmonary embolism as well as Cemd-Xgnlfhobe-Whdxw syndrome and associated tachycardia. She is schedule for cardiology follow up at [facility] in [place], [place] for possible replacement of her pacemaker or addition of rhythm control medication. She is currently on Eliquis therapy for her pulmonary embolism management. Past Medical History Cardiac Medical History: Reports: Hyperlipidema, Hypertension, Pulmonary Embolism, Other - HX WPW Pulmonary Medical History: Reports: Asthma, Bronchitis, Chronic Obstructive Pulmonary Disease (COPD), Pneumonia, Respiratory Failure, Sleep Apnea GI Medical History: Reports: Diverticulitis, Gastroesophageal Reflux Disease Musculoskeltal Medical History: Reports: Arthritis Psychiatric Medical History: Reports: Depression Past Surgical History Past Surgical History: Reports: Colostomy - with reversal, 6 years ago, Hysterectomy, Pacemaker Social History Smoking Status: Current Some Day Smoker Frequency of Alcohol Use: None Hx Recreational Drug Use: No Drugs: None Hx Prescription Drug Abuse: No Family History Family History: Reviewed & Not Pertinent, CAD - This is in not immediate family members., DM, Hyperlipidemia, Hypertension Parental Family History Reviewed: Yes Children Family History Reviewed: Yes Sibling(s) Family History Reviewed.: Yes Medication/Allergy Home Medications: Acetazolamide [Diamox 250 mg Tab] 250 mg PO Q12 05/24/16 Albuterol Sulfate [Albuterol Sulfate 2.5mg/3 mL] 2.5 ml NEB TIDP PRN 05/24/16 Apixaban [Eliquis] 2.5 mg PO Q12 05/24/16 Buspirone HCl [Buspar 15 mg Tablet] 7.5 mg PO BID 05/24/16 Citalopram Hydrobromide [Celexa 40 mg Tablet] 40 mg PO DAILY 05/24/16 Clonazepam [Klonopin 1 mg Tablet] 1 mg PO Q12 05/24/16 Docusate Sodium [Colace 100 mg Capsule] 100 mg PO DAILY 05/24/16 Fluticasone/Salmeterol [Advair 250-50 Diskus 14 Dose/Diskus] 1 puff IH BID 05/24 Gabapentin [Neurontin 100 mg Capsule] 200 mg PO QPM 05/24/16 Montelukast Sodium [Singulair 10 mg Tablet] 10 g PO DAILY 05/24/16 Oxycodone HCl/Acetaminophen [Oxycodon-Acetaminophen 7.5-325] 1 tab PO TID Pregabalin [Lyrica] 50 mg PO DAILY 05/24/16 Promethazine HCl [Phenergan 25 mg Tablet] 25 mg PO Q6HP PRN 05/24/16 Roflumilast [Daliresp 500 mcg Tablet] 500 mcg PO DAILY 05/24/16 Ropinirole HCl 1 mg PO TID 05/24/16 Tiotropium [place] [Spiriva Handihaler 5 Cap/Kit (18 Mcg/Cap)] 2 puff IH BID Zolpidem Tartrate [Ambien 5 mg Tablet] 5 mg PO HSP PRN 05/24/16 Allergies/Adverse Reactions: codeine [Codeine] Allergy (Unknown, Verified 11/04/14 17:36) erythromycin base [Erythromycin Base] Allergy (Unknown, Verified 11/04/14 17:36) Review of Systems Constitutional: PRESENT: anorexia, chills, fatigue, weakness. ABSENT: as per HPI, fever(s), headache(s), night sweats, weight gain, weight loss, other Eyes: PRESENT: visual disturbances - correction with glasses Ears: ABSENT: hearing changes Nose, Mouth, and Throat: ABSENT: as per HPI, headache(s), mouth pain, sore throat, vertigo, other Cardiovascular: PRESENT: dyspnea on exertion. ABSENT: as per HPI, chest pain, edema, orthropnea, palpitations, other Respiratory: PRESENT: cough, dyspnea, sputum. ABSENT: as per HPI, hemoptysis, other Gastrointestinal: PRESENT: diarrhea. ABSENT: as per HPI, abdominal pain, bloating, coffee ground emesis, constipation, dysphagia, heartburn, hematemesis , hematochezia, melena, nausea, vomiting, other Genitourinary: ABSENT: dysuria, hematuria Musculoskeletal: PRESENT: back pain, deformity, muscle weakness - generalized Integumentary: ABSENT: rash, wounds Neurological: PRESENT: weakness - generalized. ABSENT: as per HPI, abnormal gait, abnormal movements, abnormal speech, confusion, convulsions, dizziness, focal weakness, frequent falls, lack of coordination, memory loss, numbness, paresthesias, restless legs, syncope, tingling, tremor(s), vertigo, other Psychiatric: PRESENT: anxiety. ABSENT: as per HPI, depression, hallucinations, homidical ideation, suicidal ideation Endocrine: PRESENT: cold intolerance - chronic chills. ABSENT: as per HPI, flushing, heat intolerance, menstrual abnormalities, polydipsia, polyphagia, polyuria, other Hematologic/Lymphatic: PRESENT: easy bruising. ABSENT: as per HPI, easy bleeding, lymphadenopathy, other Allergic/Immunologic: ABSENT: as per HPI, seasonal rhinorrhea, other Physical Exam Vital Signs: Temp Pulse Resp BP Pulse Ox 97.6 F 74 20 105/60 95 05/24/16 04:25 05/24/16 08:30 05/24/16 04:25 05/24/16 04:25 05/24/16 04:25 Intake & Output 05/23/16 05/24/16 05/25/16 06:59 06:59 06:59 Intake Total 0 Balance 0 Weight 37.3 kg General appearance: PRESENT: no acute distress, cooperative, mild distress, thin Head exam: PRESENT: atraumatic, normocephalic Eye exam: PRESENT: conjunctiva pink, EOMI, PERRLA. ABSENT: scleral icterus Ear exam: PRESENT: normal external ear exam Mouth exam: PRESENT: moist, tongue midline Throat exam: ABSENT: post pharyngeal erythema, tonsillar erythema, tonsillar exudate, tonsillogmegaly, other Neck exam: PRESENT: full ROM. ABSENT: carotid bruit, JVD, lymphadenopathy, thyromegaly Respiratory exam: PRESENT: accessory muscle use, crackles, decreased breath sounds, prolonged expiratory phas, rhonchi. ABSENT: chest wall tenderness, clear to auscultation luci, rales, retraction, stridor, symmetrical, tachypnea, unlabored, wheezes, other Cardiovascular exam: PRESENT: RRR. ABSENT: diastolic murmur, rubs, systolic murmur Pulses: PRESENT: normal dorsalis pedis pul, +2 pedal pulses bilateral Vascular exam: PRESENT: normal capillary refill GI/Abdominal exam: PRESENT: normal bowel sounds, soft. ABSENT: distended, guarding, mass, organolmegaly, rebound, tenderness Rectal exam: PRESENT: deferred Extremities exam: PRESENT: full ROM Musculoskeletal exam: PRESENT: deformity - due to multiple joint involvement with arthritis Neurological exam: PRESENT: alert, awake, oriented to person, oriented to place , oriented to time, oriented to situation, CN II-XII grossly intact. ABSENT: motor sensory deficit Psychiatric exam: PRESENT: anxious - related to her chronic mental health issue with anxiety Skin exam: PRESENT: dry, intact, warm. ABSENT: cyanosis, rash Results Laboratory Results: I reviewed her laboratory reports as listed on [employer] this form significant part of my medical decision making in this case. Impressions: Chest X-Ray 05/23/16 19:13 IMPRESSION: Small pleural effusions superimposed on chronic obstructive pulmonary disease. Assessment & Plan - Diagnosis (1) Mixed anxiety and depressive disorder Is this a current diagnosis for this admission?: YesPlan: See admitting physician orders. (2) Acute bronchitis with COPD Is this a current diagnosis for this admission?: YesPlan: See admitting physician orders. (3) COPD (chronic obstructive pulmonary disease) Qualifiers: COPD type: unspecified COPD Qualified Code(s): J44.9 - Chronic obstructive pulmonary disease, unspecified Is this a current diagnosis for this admission?: YesPlan: See admitting physician orders. (4) Chronic respiratory failure with hypoxia and hypercapnia Is this a current diagnosis for this admission?: YesPlan: See admitting physician orders. (5) H/O cardiac pacemaker Is this a current diagnosis for this admission?: YesPlan: See admitting physician orders. (6) Pulmonary embolism Qualifiers: Pulmonary embolism type: other Chronicity: chronic Acute cor pulmonale presence: without acute cor pulmonale Qualified Code(s): I27.82 - Chronic pulmonary embolism Is this a current diagnosis for this admission?: YesPlan: See admitting physician orders. (7) HLD (hyperlipidemia) Qualifiers: Hyperlipidemia type: pure hypercholesterolemia Qualified Code(s): E78.00 - Pure hypercholesterolemia, unspecified; E78.0 - Pure hypercholesterolemia Is this a current diagnosis for this admission?: YesPlan: See admitting physician orders. (8) HTN (hypertension) Qualifiers: Hypertension type: essential hypertension Qualified Code(s): I10 - Essential (primary) hypertension Is this a current diagnosis for this admission?: YesPlan: See admitting physician orders. (9) Ulzqt-Kkrzwyuov-Ztabm syndrome Is this a current diagnosis for this admission?: YesPlan: See admitting physician orders. 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
[2016-05-24] MEDS: PREGABALIN 50 MG CAPSULE PO SCH (21:22)
[2016-05-24] MEDS: ROFLUMILAST 500 MCG TABLET PO SCH (21:23)
[2016-05-24] MEDS ORDERED: PROMETHAZINE HCL 25 MG TABLET PO PRN (21:48)
[2016-05-24] MEDS: FLUTICASONE/SALMETEROL DISKUS 250-50 MCG/DOSE IH SCH (22:23)
[2016-05-24] MEDS: ZOLPIDEM TARTRATE 5 MG TABLET PO PRN (22:30)
[2016-05-25 07:02] LABS: ABSOLUTE MONOCYTES (AUTO) 1.7 10^3/uL (0.1-1.4); ABSOLUTE NEUT (AUTO) 14.4 10^3/uL (1.7-8.2); BASOPHILS % (AUTO) 0.1 % (0-2); EOSINOPHILS % (AUTO) 0.1 % (0-6); HEMATOCRIT 36.8 % (36.0-47.0); HEMOGLOBIN 11.7 g/dL (12.0-15.5); HGB HCT DIFFERENCE -1.7; LYMPHOCYTES % (AUTO) 6.1 % (13-45); MEAN CORPUSCULAR HEMOGLOBIN 28.7 pg (27.0-33.4); MEAN CORPUSCULAR HGB CONC 31.8 g/dL (32.0-36.0); MEAN CORPUSCULAR VOLUME 90 fl (80-97); MONOCYTES % (AUTO) 9.7 % (3-13); RED BLOOD COUNT 4.07 10^6/uL (3.72-5.28); RED CELL DISTRIBUTION WIDTH 15.9 % (11.5-14.0); WHITE BLOOD COUNT 17.1 10^3/uL (4.0-10.5)
[2016-05-25 07:23] LABS: ANION GAP 9 (5-19); BLOOD UREA NITROGEN 21 mg/dL (7-20); CALCIUM 9.3 mg/dL (8.4-10.2); CARBON DIOXIDE 25 mmol/L (22-30); CHLORIDE 104 mmol/L (98-107); CREATININE RESULT 0.87 mg/dL (0.52-1.25); GLUCOSE 98 mg/dL (75-110)
--- NOTE | 2016-05-25 08:18 | PDOC PROGRESS REPORT ---
Subjective Progress Note for:: 05/25/16 Subjective:: Patient reported episodes of nausea but no vomiting. No abdominal pain. No chest pain. Baseline difficulty with breathing on supplemental oxygen via nasal canula. Remain on IV Solu Medrol, Levofloxacin and Cefepime. Physical Exam Vital Signs: Temp Pulse Resp BP Pulse Ox 98.0 F 88 18 109/63 97 05/25/16 04:00 05/25/16 08:00 05/25/16 08:00 05/25/16 04:00 05/25/16 08:00 Intake & Output 05/24/16 05/25/16 05/26/16 06:59 06:59 06:59 Intake Total 940 Output Total 650 Balance 290 Weight 62.5 kg General appearance: PRESENT: no acute distress, cooperative, mild distress, thin Head exam: PRESENT: atraumatic, normocephalic Eye exam: PRESENT: conjunctiva pink, EOMI, PERRLA. ABSENT: scleral icterus Respiratory exam: PRESENT: crackles, decreased breath sounds, rhonchi Cardiovascular exam: PRESENT: RRR. ABSENT: diastolic murmur, rubs, systolic murmur GI/Abdominal exam: PRESENT: normal bowel sounds, soft. ABSENT: distended, guarding, mass, organolmegaly, rebound, tenderness Extremities exam: PRESENT: full ROM Musculoskeletal exam: PRESENT: deformity - related to joint involvement with arthritis Neurological exam: PRESENT: alert, awake, oriented to person, oriented to place , oriented to time, oriented to situation, CN II-XII grossly intact. ABSENT: motor sensory deficit Psychiatric exam: PRESENT: appropriate affect, normal mood. ABSENT: homicidal ideation, suicidal ideation Skin exam: PRESENT: dry, intact, warm. ABSENT: cyanosis, rash Results Laboratory Results: 05/25/16 06:34 05/25/16 06:34 05/25/16 05/25/16 06:34 06:34 WBC 17.1 H RBC 4.07 Hgb 11.7 L Hct 36.8 MCV 90 MCH 28.7 MCHC 31.8 L RDW 15.9 H Plt Count 299 Seg Neutrophils % 84.0 H Lymphocytes % 6.1 L Monocytes % 9.7 Eosinophils % 0.1 Basophils % 0.1 Absolute Neutrophils 14.4 H Absolute Lymphocytes 1.0 Absolute Monocytes 1.7 H Absolute Eosinophils 0.0 Absolute Basophils 0.0 Sodium 138.0 Potassium 4.0 Chloride 104 Carbon Dioxide 25 Anion Gap 9 BUN 21 H Creatinine 0.87 Est GFR ( Amer) > 60 Est GFR (Non-Af Amer) > 60 Glucose 98 Calcium 9.3 Impressions: Chest X-Ray 05/23/16 19:13 IMPRESSION: Small pleural effusions superimposed on chronic obstructive pulmonary disease. Assessment & Plan - Diagnosis (1) Mixed anxiety and depressive disorder Is this a current diagnosis for this admission?: YesPlan: See attending physician orders. Maintain on pre-admission medication management. (2) Acute bronchitis with COPD Is this a current diagnosis for this admission?: YesPlan: Continue on current antibiotic coverage and bronchodilator therapy. Encouraged use of Flutter device to aide expectoration. (3) COPD (chronic obstructive pulmonary disease) Qualifiers: COPD type: unspecified COPD Qualified Code(s): J44.9 - Chronic obstructive pulmonary disease, unspecified Is this a current diagnosis for this admission?: YesPlan: Continue current medication management. See attending physician orders. (4) Chronic respiratory failure with hypoxia and hypercapnia Is this a current diagnosis for this admission?: YesPlan: Continue current medication management. See attending physician orders. (5) H/O cardiac pacemaker Is this a current diagnosis for this admission?: YesPlan: See attending physician orders. Maintain on pre-admission medication management. (6) Pulmonary embolism Qualifiers: Pulmonary embolism type: other Chronicity: chronic Acute cor pulmonale presence: without acute cor pulmonale Qualified Code(s): I27.82 - Chronic pulmonary embolism Is this a current diagnosis for this admission?: YesPlan: See attending physician orders. Maintain on pre-admission medication management. (7) HLD (hyperlipidemia) Qualifiers: Hyperlipidemia type: pure hypercholesterolemia Qualified Code(s): E78.00 - Pure hypercholesterolemia, unspecified; E78.0 - Pure hypercholesterolemia Is this a current diagnosis for this admission?: YesPlan: See attending physician orders. Maintain on pre-admission medication management. (8) HTN (hypertension) Qualifiers: Hypertension type: essential hypertension Qualified Code(s): I10 - Essential (primary) hypertension Is this a current diagnosis for this admission?: YesPlan: See attending physician orders. Maintain on pre-admission medication management. (9) Cwmol-Jlwldzgpq-Bwxlq syndrome Is this a current diagnosis for this admission?: YesPlan: See attending physician orders. Maintain on pre-admission medication management. - Time Time Spent with patient: 25-34 minutes Medications reviewed and adjusted accordingly: Yes Anticipated discharge: Home with Homehealth Within: Other - Inpatient Certification Medical Necessity: Need Close Monitoring Due to Risk of Patient Decompensation, Need For IV Fluids, Need For Continuous Telemetry Monitoring, Need for Nebulizer Therapy and Monitoring of Response, Need for IV Antibiotics, Risk of Complication if Not Cared For in Hospital - Plan Summary Plan Summary: See attending physician orders.
[2016-05-25] MEDS ORDERED: TRIMETHOBENZAMIDE HCL 300 MG CAPSULE PO PRN (08:19)
[2016-05-25] MEDS ORDERED: (PENDING PHARMACY ID) (Buspirone Hcl [Buspar 15 Mg Tablet] 7.5 MG) PO SCH (10:00)
[2016-05-25] MEDS ORDERED: ACETAZOLAMIDE 250 MG TABLET PO SCH (10:00)
[2016-05-25] MEDS ORDERED: (PENDING PHARMACY ID) (Oxycodone Hcl/Acetaminophen [Oxycodon-Acetaminophen 7.5-325] 1 TAB) PO SCH (10:00)
[2016-05-25] MEDS ORDERED: OXYCODONE-ACETAMINOPHEN 5-325 MG TABLET PO SCH (10:00)
[2016-05-25] MEDS ORDERED: OXYCODONE HCL IR 5 MG TABLET PO SCH (10:00)
[2016-05-25] MEDS ORDERED: TIOTROPIUM BROMIDE DPI 5 CAP/KIT (18 MCG/CAP) IH SCH (10:00)
[2016-05-25] MEDS: ACETAZOLAMIDE 250 MG TABLET PO SCH ×2 (10:47→22:05)
[2016-05-25] MEDS: ROPINIROLE HCL 1 MG TABLET PO SCH ×3 (10:47→17:57)
[2016-05-25] MEDS: CLONAZEPAM 1 MG TABLET PO SCH ×2 (10:47→22:05)
[2016-05-25] MEDS: LEVOFLOXACIN 750 MG TABLET PO SCH (10:47)
[2016-05-25] MEDS: APIXABAN 2.5 MG TABLET PO SCH ×3 (10:48→22:05)
[2016-05-25] MEDS: BUSPIRONE HCL 10 MG TABLET PO SCH ×3 (10:48→17:58)
[2016-05-25] MEDS: DRONABINOL 2.5 MG CAPSULE PO SCH (10:48)
[2016-05-25] MEDS: MONTELUKAST SODIUM 10 MG TABLET PO SCH (10:48)
[2016-05-25] MEDS: ASPIRIN 81 MG TABLET, CHEWABLE PO SCH (10:48)
[2016-05-25] MEDS: DOCUSATE SODIUM 100 MG CAPSULE PO SCH (10:50)
[2016-05-25] MEDS: CEFEPIME 1 GM/D5W RTU 50 ML IV SCH ×2 (10:51→22:05)
[2016-05-25] MEDS: FLUTICASONE/SALMETEROL DISKUS 250-50 MCG/DOSE IH SCH ×2 (10:52→22:04)
[2016-05-25] MEDS: IPRATROPIUM/ALBUTEROL 0.5-2.5 MG/3 ML AMPUL NEB PRN ×2 (14:06→19:46)
[2016-05-25] MEDS: GABAPENTIN 100 MG CAPSULE PO SCH (17:58)
[2016-05-25] MEDS: PREGABALIN 50 MG CAPSULE PO SCH (22:05)
[2016-05-25] MEDS: ROFLUMILAST 500 MCG TABLET PO SCH (22:05)
--- NOTE | 2016-05-26 08:04 | PDOC PROGRESS REPORT ---
Subjective Progress Note for:: 05/26/16 Subjective:: Patient reported episode of diarrhea this morning. No abdominal pain. Her nausea is improving but P.O intake remain a challenge. No vomiting. No chest pain. Remain on IV Solu Medrol, Levofloxacin and Cefepime. Baseline difficulty with breathing on supplemental oxygen via nasal canula. Physical Exam Vital Signs: Temp Pulse Resp BP Pulse Ox 97.5 F 97 25 H 110/66 100 05/26/16 04:00 05/26/16 04:00 05/26/16 04:00 05/26/16 04:00 05/26/16 04:00 Intake & Output 05/25/16 05/26/16 05/27/16 06:59 06:59 06:59 Intake Total 940 1360 Output Total 650 400 Balance 290 960 Weight 62.5 kg 69.5 kg Physical Exam: General appearance: PRESENT: no acute distress, cooperative, mild distress, thin Head exam: PRESENT: atraumatic, normocephalic Eye exam: PRESENT: conjunctiva pink, EOMI, PERRLA. ABSENT: scleral icterus Respiratory exam: PRESENT: crackles, decreased breath sounds, rhonchi Cardiovascular exam: PRESENT: RRR. ABSENT: diastolic murmur, rubs, systolic murmur GI/Abdominal exam: PRESENT: normal bowel sounds, soft. ABSENT: distended, guarding, mass, organomegaly, rebound, tenderness Extremities exam: PRESENT: full ROM Musculoskeletal exam: PRESENT: deformity - related to joint involvement with arthritis Neurological exam: PRESENT: alert, awake, oriented to person, oriented to place , oriented to time, oriented to situation, CN II-XII grossly intact. ABSENT: motor sensory deficit Psychiatric exam: PRESENT: appropriate affect, normal mood. ABSENT: homicidal ideation, suicidal ideation Skin exam: PRESENT: dry, intact, warm. ABSENT: cyanosis, rash Results Laboratory Results: 05/25/16 06:34 05/25/16 06:34 Impressions: Chest X-Ray 05/23/16 19:13 IMPRESSION: Small pleural effusions superimposed on chronic obstructive pulmonary disease. Assessment & Plan - Diagnosis (1) Mixed anxiety and depressive disorder Is this a current diagnosis for this admission?: Yes (2) Acute bronchitis with COPD Is this a current diagnosis for this admission?: YesPlan: Continue on current antibiotic coverage and bronchodilator therapy. (3) COPD (chronic obstructive pulmonary disease) Qualifiers: COPD type: unspecified COPD Qualified Code(s): J44.9 - Chronic obstructive pulmonary disease, unspecified Is this a current diagnosis for this admission?: YesPlan: Continue current medication management. See attending physician orders. (4) Chronic respiratory failure with hypoxia and hypercapnia Is this a current diagnosis for this admission?: YesPlan: Continue current medication management. See attending physician orders. (5) H/O cardiac pacemaker Is this a current diagnosis for this admission?: YesPlan: See attending physician orders. Maintain on pre-admission medication management. (6) Pulmonary embolism Qualifiers: Pulmonary embolism type: other Chronicity: chronic Acute cor pulmonale presence: without acute cor pulmonale Qualified Code(s): I27.82 - Chronic pulmonary embolism Is this a current diagnosis for this admission?: YesPlan: See attending physician orders. Maintain on pre-admission medication management. (7) HLD (hyperlipidemia) Qualifiers: Hyperlipidemia type: pure hypercholesterolemia Qualified Code(s): E78.00 - Pure hypercholesterolemia, unspecified; E78.0 - Pure hypercholesterolemia Is this a current diagnosis for this admission?: YesPlan: See attending physician orders. Maintain on pre-admission medication management. (8) HTN (hypertension) Qualifiers: Hypertension type: essential hypertension Qualified Code(s): I10 - Essential (primary) hypertension Is this a current diagnosis for this admission?: YesPlan: See attending physician orders. Maintain on pre-admission medication management. (9) Qskok-Uqynqkffx-Wthrn syndrome Is this a current diagnosis for this admission?: YesPlan: See attending physician orders. Maintain on pre-admission medication management. (10) Diarrhea Qualifiers: Diarrhea type: unspecified type Qualified Code(s): R19.7 - Diarrhea , unspecified Is this a current diagnosis for this admission?: NoPlan: Obtain stool for C. difficile toxin titer. Encouraged increase oral fluid, water , intake. Start on IV Normal saline @ 50 ml / hour. - Time Time Spent with patient: 25-34 minutes Medications reviewed and adjusted accordingly: Yes Anticipated discharge: Home with Homehealth - Inpatient Certification Medical Necessity: Need Close Monitoring Due to Risk of Patient Decompensation, Need For IV Fluids, Need For Continuous Telemetry Monitoring, Need for Nebulizer Therapy and Monitoring of Response, Need for IV Antibiotics, Risk of Complication if Not Cared For in Hospital - Plan Summary Plan Summary: See attending physician orders.
[2016-05-26] MEDS ORDERED: METHYLPREDNISOLONE INJ 125 MG/2 ML SDV IV ONE (09:00)
[2016-05-26] MEDS: IPRATROPIUM/ALBUTEROL 0.5-2.5 MG/3 ML AMPUL NEB PRN (09:42)
[2016-05-26] MEDS: ROPINIROLE HCL 1 MG TABLET PO SCH ×3 (11:06→18:12)
[2016-05-26] MEDS: MONTELUKAST SODIUM 10 MG TABLET PO SCH (11:06)
[2016-05-26] MEDS: DRONABINOL 2.5 MG CAPSULE PO SCH (11:07)
[2016-05-26] MEDS: ASPIRIN 81 MG TABLET, CHEWABLE PO SCH (11:07)
[2016-05-26] MEDS: LEVOFLOXACIN 750 MG TABLET PO SCH (11:07)
[2016-05-26] MEDS: APIXABAN 2.5 MG TABLET PO SCH ×2 (11:09→21:14)
[2016-05-26] MEDS: CEFEPIME 1 GM/D5W RTU 50 ML IV SCH ×2 (11:10→21:14)
[2016-05-26] MEDS: NORMAL SALINE 1000 ML 1,000 ML IV PRN (11:12)
[2016-05-26] MEDS: CLONAZEPAM 1 MG TABLET PO SCH ×2 (11:18→21:14)
[2016-05-26] MEDS: ACETAZOLAMIDE 250 MG TABLET PO SCH ×2 (11:18→21:14)
[2016-05-26] MEDS: DOCUSATE SODIUM 100 MG CAPSULE PO SCH (11:18)
[2016-05-26] MEDS: BUSPIRONE HCL 10 MG TABLET PO SCH ×2 (11:18→18:12)
[2016-05-26] MEDS: OXYCODONE-ACETAMINOPHEN 5-325 MG TABLET PO PRN ×2 (12:31→21:27)
[2016-05-26] MEDS: OXYCODONE HCL IR 5 MG TABLET PO PRN ×2 (12:32→21:27)
[2016-05-26] MEDS: METHYLPREDNISOLONE INJ 125 MG/2 ML SDV IV SCH (18:12)
[2016-05-26] MEDS: GABAPENTIN 100 MG CAPSULE PO SCH (18:12)
[2016-05-26] MEDS: PREGABALIN 50 MG CAPSULE PO SCH (21:14)
[2016-05-26] MEDS: ROFLUMILAST 500 MCG TABLET PO SCH (21:14)
[2016-05-27] MEDS: METHYLPREDNISOLONE INJ 125 MG/2 ML SDV IV SCH ×3 (02:10→18:37)
[2016-05-27] MEDS: NORMAL SALINE 1000 ML 1,000 ML IV PRN (04:05)
--- NOTE | 2016-05-27 08:00 | PDOC PROGRESS REPORT ---
Subjective Progress Note for:: 05/27/16 Subjective:: Patient reported improvement in diarrhea since last clinical evaluation. No nausea, vomiting or abdominal pain. No chest pain. Baseline difficulty with breathing on supplemental oxygen via nasal canula at 2.5L/minute. Remain on IV Solu Medrol, Levofloxacin and Cefepime. Physical Exam Vital Signs: Temp Pulse Resp BP Pulse Ox 97.4 F 71 19 94/51 L 93 05/27/16 03:58 05/27/16 07:00 05/27/16 03:58 05/27/16 03:58 05/27/16 03:58 Intake & Output 05/26/16 05/27/16 05/28/16 06:59 06:59 06:59 Intake Total 1360 2190 Output Total 400 300 Balance 960 1890 Weight 69.5 kg Physical Exam: General appearance: PRESENT: no acute distress, cooperative, mild distress, thin Head exam: PRESENT: atraumatic, normocephalic Eye exam: PRESENT: conjunctiva pink, EOMI, PERRLA. ABSENT: scleral icterus Respiratory exam: PRESENT: less crackles, decreased breath sounds, rhonchi Cardiovascular exam: PRESENT: RRR. ABSENT: diastolic murmur, rubs, systolic murmur GI/Abdominal exam: PRESENT: normal bowel sounds, soft. ABSENT: distended, guarding, mass, organomegaly, rebound, tenderness Extremities exam: PRESENT: full ROM Musculoskeletal exam: PRESENT: deformity - related to joint involvement with arthritis Neurological exam: PRESENT: alert, awake, oriented to person, oriented to place , oriented to time, oriented to situation, CN II-XII grossly intact. ABSENT: motor sensory deficit Psychiatric exam: PRESENT: appropriate affect, normal mood. ABSENT: homicidal ideation, suicidal ideation Skin exam: PRESENT: dry, intact, warm. ABSENT: cyanosis, rash Results Laboratory Results: 05/25/16 06:34 05/25/16 06:34 Impressions: Chest X-Ray 05/23/16 19:13 IMPRESSION: Small pleural effusions superimposed on chronic obstructive pulmonary disease. Assessment & Plan - Diagnosis (1) Mixed anxiety and depressive disorder Is this a current diagnosis for this admission?: YesPlan: See attending physician orders. Maintain on pre-admission medication management. (2) Acute bronchitis with COPD Is this a current diagnosis for this admission?: YesPlan: Continue on current antibiotic coverage and bronchodilator therapy. (3) COPD (chronic obstructive pulmonary disease) Qualifiers: COPD type: unspecified COPD Qualified Code(s): J44.9 - Chronic obstructive pulmonary disease, unspecified Is this a current diagnosis for this admission?: YesPlan: Continue current medication management. See attending physician orders. (4) Chronic respiratory failure with hypoxia and hypercapnia Is this a current diagnosis for this admission?: YesPlan: Continue current medication management. See attending physician orders. (5) H/O cardiac pacemaker Is this a current diagnosis for this admission?: YesPlan: See attending physician orders. Maintain on pre-admission medication management. (6) Pulmonary embolism Qualifiers: Pulmonary embolism type: other Chronicity: chronic Acute cor pulmonale presence: without acute cor pulmonale Qualified Code(s): I27.82 - Chronic pulmonary embolism Is this a current diagnosis for this admission?: YesPlan: See attending physician orders. Maintain on pre-admission medication management. (7) HLD (hyperlipidemia) Qualifiers: Hyperlipidemia type: pure hypercholesterolemia Qualified Code(s): E78.00 - Pure hypercholesterolemia, unspecified; E78.0 - Pure hypercholesterolemia Is this a current diagnosis for this admission?: YesPlan: See attending physician orders. Maintain on pre-admission medication management. (8) HTN (hypertension) Qualifiers: Hypertension type: essential hypertension Qualified Code(s): I10 - Essential (primary) hypertension Is this a current diagnosis for this admission?: YesPlan: See attending physician orders. Maintain on pre-admission medication management. (9) Bqghu-Jkxwhviqa-Gkeex syndrome Is this a current diagnosis for this admission?: YesPlan: See attending physician orders. Maintain on pre-admission medication management. (10) Diarrhea Qualifiers: Diarrhea type: unspecified type Qualified Code(s): R19.7 - Diarrhea , unspecified Is this a current diagnosis for this admission?: NoPlan: Improving. C. difficile toxin titer was reported negative. - Time Time Spent with patient: 25-34 minutes Medications reviewed and adjusted accordingly: Yes Anticipated discharge: Home with Homehealth Within: Other - Inpatient Certification Based on my medical assessment, after consideration of the patient's comorbidities, presenting symptoms, or acuity I expect that the services needed warrant INPATIENT care.: Yes I certify that my determination is in accordance with my understanding of Medicare's requirements for reasonable and necessary INPATIENT services [42 CFR 412.3e].: Yes Medical Necessity: Need Close Monitoring Due to Risk of Patient Decompensation, Need For IV Fluids, Need For Continuous Telemetry Monitoring, Need for Nebulizer Therapy and Monitoring of Response, Need for IV Antibiotics, Risk of Complication if Not Cared For in Hospital - Plan Summary Plan Summary: See attending physician orders.
[2016-05-27] MEDS: APIXABAN 2.5 MG TABLET PO SCH ×2 (10:10→21:47)
[2016-05-27] MEDS: ACETAZOLAMIDE 250 MG TABLET PO SCH ×2 (10:10→21:48)
[2016-05-27] MEDS: BUSPIRONE HCL 10 MG TABLET PO SCH ×2 (10:12→18:39)
[2016-05-27] MEDS: ASPIRIN 81 MG TABLET, CHEWABLE PO SCH (10:12)
[2016-05-27] MEDS: CEFEPIME 1 GM/D5W RTU 50 ML IV SCH ×2 (10:13→21:50)
[2016-05-27] MEDS: CLONAZEPAM 1 MG TABLET PO SCH ×2 (10:14→21:48)
[2016-05-27] MEDS: DRONABINOL 2.5 MG CAPSULE PO SCH (10:15)
[2016-05-27] MEDS: LEVOFLOXACIN 750 MG TABLET PO SCH (10:15)
[2016-05-27] MEDS: DOCUSATE SODIUM 100 MG CAPSULE PO SCH (10:16)
[2016-05-27] MEDS: ROPINIROLE HCL 1 MG TABLET PO SCH ×3 (10:16→18:37)
[2016-05-27] MEDS: MONTELUKAST SODIUM 10 MG TABLET PO SCH (10:16)
[2016-05-27] MEDS: CITALOPRAM HYDROBROMIDE 20 MG TABLET PO SCH ×2 (10:37→10:39)
[2016-05-27] MEDS: TIOTROPIUM BROMIDE DPI 5 CAP/KIT (18 MCG/CAP) IH SCH (10:39)
[2016-05-27] MEDS: IPRATROPIUM/ALBUTEROL 0.5-2.5 MG/3 ML AMPUL NEB PRN ×2 (13:16→22:12)
[2016-05-27] MEDS: GABAPENTIN 100 MG CAPSULE PO SCH (18:37)
[2016-05-27] MEDS: ROFLUMILAST 500 MCG TABLET PO SCH (21:47)
[2016-05-27] MEDS: PREGABALIN 50 MG CAPSULE PO SCH (21:48)
[2016-05-27] MEDS: OXYCODONE-ACETAMINOPHEN 5-325 MG TABLET PO PRN (21:58)
[2016-05-28] MEDS: METHYLPREDNISOLONE INJ 125 MG/2 ML SDV IV SCH ×3 (02:59→19:48)
--- NOTE | 2016-05-28 08:25 | PDOC PROGRESS REPORT ---
Subjective Progress Note for:: 05/28/16 Subjective:: Patient reported improvement in breathing effort. Denied any chest pain. No nausea or vomiting but oral intake remain poor. No abdominal pain. No fever or chills. Remain on IV antibiotic therapy. Blood culture remain no growth x 4 days. Physical Exam Vital Signs: Temp Pulse Resp BP Pulse Ox 97.6 F 113 H 21 H 109/50 L 98 05/28/16 04:20 05/28/16 07:00 05/28/16 04:20 05/28/16 04:20 05/28/16 04:20 Intake & Output 05/27/16 05/28/16 05/29/16 06:59 06:59 06:59 Intake Total 2190 1892 Output Total 300 1250 Balance 1890 642 Weight 42 kg Physical Exam: General appearance: PRESENT: no acute distress, cooperative, mild distress, thin Head exam: PRESENT: atraumatic, normocephalic Eye exam: PRESENT: conjunctiva pink, EOMI, PERRLA. ABSENT: scleral icterus Respiratory exam: PRESENT: less crackles, decreased breath sounds, rhonchi Cardiovascular exam: PRESENT: RRR. ABSENT: diastolic murmur, rubs, systolic murmur GI/Abdominal exam: PRESENT: normal bowel sounds, soft. ABSENT: distended, guarding, mass, organomegaly, rebound, tenderness Extremities exam: PRESENT: full ROM Musculoskeletal exam: PRESENT: deformity - related to joint involvement with arthritis Neurological exam: PRESENT: alert, awake, oriented to person, oriented to place , oriented to time, oriented to situation, CN II-XII grossly intact. ABSENT: motor sensory deficit Psychiatric exam: PRESENT: appropriate affect, normal mood. ABSENT: homicidal ideation, suicidal ideation Skin exam: PRESENT: dry, intact, warm. ABSENT: cyanosis, rash Results Laboratory Results: 05/25/16 06:34 05/25/16 06:34 Impressions: Chest X-Ray 05/23/16 19:13 IMPRESSION: Small pleural effusions superimposed on chronic obstructive pulmonary disease. Assessment & Plan - Diagnosis (1) Mixed anxiety and depressive disorder Is this a current diagnosis for this admission?: YesPlan: See attending physician orders. Maintain on current medication management. (2) Acute bronchitis with COPD Is this a current diagnosis for this admission?: YesPlan: Continue on current antibiotic coverage and bronchodilator therapy. Follow up on blood culture findings. (3) COPD (chronic obstructive pulmonary disease) Qualifiers: COPD type: unspecified COPD Qualified Code(s): J44.9 - Chronic obstructive pulmonary disease, unspecified Is this a current diagnosis for this admission?: YesPlan: Continue current medication management. I will taper IV Solu Medrol down to 80 mg [id number]. See attending physician orders. (4) Chronic respiratory failure with hypoxia and hypercapnia Is this a current diagnosis for this admission?: YesPlan: Continue current medication management. See attending physician orders. (5) H/O cardiac pacemaker Is this a current diagnosis for this admission?: YesPlan: See attending physician orders. Maintain on current medication management. (6) Pulmonary embolism Qualifiers: Pulmonary embolism type: other Chronicity: chronic Acute cor pulmonale presence: without acute cor pulmonale Qualified Code(s): I27.82 - Chronic pulmonary embolism Is this a current diagnosis for this admission?: YesPlan: See attending physician orders. Maintain on current medication management. (7) HLD (hyperlipidemia) Qualifiers: Hyperlipidemia type: pure hypercholesterolemia Qualified Code(s): E78.00 - Pure hypercholesterolemia, unspecified; E78.0 - Pure hypercholesterolemia Is this a current diagnosis for this admission?: YesPlan: See attending physician orders. Maintain on current medication management. (8) HTN (hypertension) Qualifiers: Hypertension type: essential hypertension Qualified Code(s): I10 - Essential (primary) hypertension Is this a current diagnosis for this admission?: YesPlan: See attending physician orders. Maintain on medication medication management. (9) Lnxnv-Aelryelgm-Wcdrf syndrome Is this a current diagnosis for this admission?: YesPlan: See attending physician orders. Maintain on current medication management. (10) Diarrhea Qualifiers: Diarrhea type: unspecified type Qualified Code(s): R19.7 - Diarrhea , unspecified Is this a current diagnosis for this admission?: NoPlan: Improving. See attending physician orders. - Time Time Spent with patient: 25-34 minutes Medications reviewed and adjusted accordingly: Yes Anticipated discharge: Home with Homehealth Within: Other - Inpatient Certification Based on my medical assessment, after consideration of the patient's comorbidities, presenting symptoms, or acuity I expect that the services needed warrant INPATIENT care.: Yes I certify that my determination is in accordance with my understanding of Medicare's requirements for reasonable and necessary INPATIENT services [42 CFR 412.3e].: Yes Medical Necessity: Need Close Monitoring Due to Risk of Patient Decompensation, Need For IV Fluids, Need For Continuous Telemetry Monitoring, Need for Nebulizer Therapy and Monitoring of Response, Need for IV Antibiotics, Risk of Complication if Not Cared For in Hospital - Plan Summary Plan Summary: See attending physician orders
[2016-05-28 08:43] LABS: HEMATOCRIT 33.8 % (36.0-47.0); HEMOGLOBIN 10.5 g/dL (12.0-15.5); HGB HCT DIFFERENCE -2.3; MEAN CORPUSCULAR HEMOGLOBIN 28.5 pg (27.0-33.4); MEAN CORPUSCULAR HGB CONC 31.2 g/dL (32.0-36.0); MEAN CORPUSCULAR VOLUME 91 fl (80-97); RED CELL DISTRIBUTION WIDTH 16.4 % (11.5-14.0); WHITE BLOOD COUNT 15.6 10^3/uL (4.0-10.5)
[2016-05-28 08:44] LABS: ALANINE AMINOTRANSFERASE 18 U/L (9-52); ALKALINE PHOSPHATASE 64 U/L (38-126); ANION GAP 10 (5-19); ASPARTATE AMINO TRANSFERASE 10 U/L (14-36); BILIRUBIN,DIRECT 0.1 mg/dL (0.0-0.4); BILIRUBIN,TOTAL 0.2 mg/dL (0.2-1.3); BLOOD UREA NITROGEN 19 mg/dL (7-20); CALCIUM 9.2 mg/dL (8.4-10.2); CARBON DIOXIDE 25 mmol/L (22-30); CHLORIDE 110 mmol/L (98-107); CREATININE RESULT 0.73 mg/dL (0.52-1.25); GLUCOSE 128 mg/dL (75-110); POTASSIUM 4.2 mmol/L (3.6-5.0); SODIUM 144.9 mmol/L (137-145); TOTAL PROTEIN 5.8 g/dL (6.3-8.2)
[2016-05-28 09:03] LABS: BAND NEUTROPHILS % (MANUAL) 3 % (3-5); BASOPHILS % (MANUAL) 0 % (0-2); EOSINOPHILS % (MANUAL) 0 % (0-6); LYMPHOCYTES % (MANUAL) 1 % (13-45); TOTAL CELLS COUNTED 100
[2016-05-28 09:06] LABS: ANISOCYTOSIS 1+; POIKILOCYTOSIS 1+; POLYCHROMASIA SLIGHT; TARGET CELLS 1+
[2016-05-28] MEDS: ROPINIROLE HCL 1 MG TABLET PO SCH ×2 (10:50→19:49)
[2016-05-28] MEDS: BUSPIRONE HCL 10 MG TABLET PO SCH ×2 (10:50→19:48)
[2016-05-28] MEDS: CEFEPIME 1 GM/D5W RTU 50 ML IV SCH ×2 (10:50→22:15)
[2016-05-28] MEDS: TIOTROPIUM BROMIDE DPI 5 CAP/KIT (18 MCG/CAP) IH SCH (10:50)
[2016-05-28] MEDS: APIXABAN 2.5 MG TABLET PO SCH ×2 (10:50→22:17)
[2016-05-28] MEDS: DRONABINOL 2.5 MG CAPSULE PO SCH (10:50)
[2016-05-28] MEDS: ACETAZOLAMIDE 250 MG TABLET PO SCH ×2 (10:50→22:18)
[2016-05-28] MEDS: MONTELUKAST SODIUM 10 MG TABLET PO SCH (10:50)
[2016-05-28] MEDS: DOCUSATE SODIUM 100 MG CAPSULE PO SCH (10:50)
[2016-05-28] MEDS: LEVOFLOXACIN 750 MG TABLET PO SCH (10:50)
[2016-05-28] MEDS: ASPIRIN 81 MG TABLET, CHEWABLE PO SCH (10:50)
[2016-05-28] MEDS: CLONAZEPAM 1 MG TABLET PO SCH ×2 (10:55→22:17)
[2016-05-28] MEDS: OXYCODONE-ACETAMINOPHEN 5-325 MG TABLET PO PRN (16:42)
[2016-05-28 17:11] LABS: ARTERIAL BLOOD BASE EXCESS 0.4 mmol/L; ARTERIAL BLOOD O2 SATURATION 97.4 % (94-98)
[2016-05-28] MEDS: GABAPENTIN 100 MG CAPSULE PO SCH (19:00)
[2016-05-28] MEDS: PREGABALIN 50 MG CAPSULE PO SCH (22:17)
[2016-05-28] MEDS: ROFLUMILAST 500 MCG TABLET PO SCH (22:18)
[2016-05-29] MEDS: METHYLPREDNISOLONE INJ 125 MG/2 ML SDV IV SCH ×2 (03:23→18:17)
[2016-05-29] MEDS: NORMAL SALINE 1000 ML 1,000 ML IV PRN (03:24)
[2016-05-29] MEDS: IPRATROPIUM/ALBUTEROL 0.5-2.5 MG/3 ML AMPUL NEB PRN ×2 (04:27→09:06)
[2016-05-29] MEDS ORDERED: METHYLPREDNISOLONE INJ 125 MG/2 ML SDV IV SCH (09:24)
--- NOTE | 2016-05-29 09:56 | PDOC PROGRESS REPORT ---
Subjective Progress Note for:: 05/29/16 Subjective:: Patient is currently doing same patient still wheezing patients denied any chest pain denied any shortness of the breath. Patient was admitted for the COPD acute exacerbations and the shortness of the breath. Patient's pH was better Physical Exam Vital Signs: Temp Pulse Resp BP Pulse Ox 97.4 F 80 20 112/54 L 98 05/29/16 08:00 05/29/16 09:06 05/29/16 09:06 05/29/16 08:00 05/29/16 09:06 Intake & Output 05/28/16 05/29/16 05/30/16 06:59 06:59 06:59 Intake Total 2492 1592 Output Total 1250 575 Balance 1242 1017 Weight 42 kg 42 kg General appearance: PRESENT: no acute distress, well-developed, well-nourished Head exam: PRESENT: atraumatic, normocephalic Eye exam: PRESENT: conjunctiva pink, EOMI, PERRLA. ABSENT: scleral icterus Ear exam: PRESENT: normal external ear exam Mouth exam: PRESENT: moist, tongue midline Neck exam: PRESENT: full ROM. ABSENT: carotid bruit, JVD, lymphadenopathy, thyromegaly Respiratory exam: PRESENT: wheezes Cardiovascular exam: PRESENT: RRR. ABSENT: diastolic murmur, rubs, systolic murmur Pulses: PRESENT: normal dorsalis pedis pul, +2 pedal pulses bilateral Vascular exam: PRESENT: normal capillary refill GI/Abdominal exam: PRESENT: normal bowel sounds, soft. ABSENT: distended, guarding, mass, organolmegaly, rebound, tenderness Rectal exam: PRESENT: deferred Neurological exam: PRESENT: alert, awake, oriented to person, oriented to place , oriented to time, oriented to situation, CN II-XII grossly intact. ABSENT: motor sensory deficit Psychiatric exam: PRESENT: appropriate affect, normal mood. ABSENT: homicidal ideation, suicidal ideation Skin exam: PRESENT: dry, intact, warm. ABSENT: cyanosis, rash Results Laboratory Results: 05/28/16 06:15 05/28/16 06:15 05/28/16 16:55 Carbonic Acid 1.69 H HCO3/H2CO3 Ratio 16:1 ABG pH 7.31 L ABG pCO2 56.0 H ABG pO2 108.3 H ABG HCO3 27.5 H ABG O2 Saturation 97.4 ABG Base Excess 0.4 FiO2 2.5L Impressions: Chest X-Ray 05/23/16 19:13 IMPRESSION: Small pleural effusions superimposed on chronic obstructive pulmonary disease. Assessment & Plan - Diagnosis (1) Acute bronchitis with COPD Is this a current diagnosis for this admission?: YesPlan: Continues to IV antibiotic will repeat the chest x-ray today (2) COPD (chronic obstructive pulmonary disease) Qualifiers: COPD type: COPD with acute exacerbation Qualified Code(s): J44.1 - Chronic obstructive pulmonary disease with (acute) exacerbation Is this a current diagnosis for this admission?: YesPlan: Continues to IV Solu-Medrol and continues to nebulizer treatments. The chest x- ray consult the pulmonary while patient is not getting better (3) Chronic respiratory failure with hypoxia and hypercapnia Is this a current diagnosis for this admission?: YesPlan: Patient's pH is getting better will continues to current medications consult the pulmonary (4) Coronary artery disease Qualifiers: Coronary Disease-Associated Artery/Lesion type: [place] artery [place] vs. transplanted heart: [place] heart Associated angina: angina presence unspecified Qualified Code(s): I25.10 - Atherosclerotic heart disease of [place] coronary artery without angina pectoris Is this a current diagnosis for this admission?: YesPlan: Stable (5) H/O cardiac pacemaker Is this a current diagnosis for this admission?: YesPlan: Stable (6) Chronic pain syndrome Is this a current diagnosis for this admission?: YesPlan: Continues current medications (7) HTN (hypertension) Qualifiers: Hypertension type: essential hypertension Qualified Code(s): I10 - Essential (primary) hypertension Is this a current diagnosis for this admission?: Yes - Time Time Spent with patient: 15-24 minutes Medications reviewed and adjusted accordingly: Yes Anticipated discharge: Home Within: Other - Inpatient Certification Medical Necessity: Need Close Monitoring Due to Risk of Patient Decompensation, Need for IV Antibiotics - Plan Summary Plan Summary: Continues to IV Solu-Medrol repeat the chest x-ray and repeat the CBC and Chem- 7 and consult the pulmonary. Discussed with the patient's daughter regarding the patient's current conditions
[2016-05-29] MEDS: ASPIRIN 81 MG TABLET, CHEWABLE PO SCH (10:30)
[2016-05-29] MEDS: LEVOFLOXACIN 750 MG TABLET PO SCH (10:30)
[2016-05-29] MEDS: DRONABINOL 2.5 MG CAPSULE PO SCH (10:30)
[2016-05-29] MEDS: DOCUSATE SODIUM 100 MG CAPSULE PO SCH (10:30)
[2016-05-29] MEDS: ROPINIROLE HCL 1 MG TABLET PO SCH ×3 (10:31→18:17)
[2016-05-29] MEDS: CLONAZEPAM 1 MG TABLET PO SCH ×2 (10:31→23:06)
[2016-05-29] MEDS: MONTELUKAST SODIUM 10 MG TABLET PO SCH (10:31)
[2016-05-29] MEDS: TIOTROPIUM BROMIDE DPI 5 CAP/KIT (18 MCG/CAP) IH SCH (10:31)
[2016-05-29] MEDS: CEFEPIME 1 GM/D5W RTU 50 ML IV SCH ×2 (10:33→23:06)
[2016-05-29] MEDS: ACETAZOLAMIDE 250 MG TABLET PO SCH ×2 (10:33→23:05)
[2016-05-29] MEDS: BUSPIRONE HCL 10 MG TABLET PO SCH ×2 (10:35→18:17)
[2016-05-29] MEDS ORDERED: METHYLPREDNISOLONE INJ 125 MG/2 ML SDV IV ONE (11:00)
[2016-05-29 11:39] LABS: ANION GAP 11 (5-19); BLOOD UREA NITROGEN 24 mg/dL (7-20); CALCIUM 9.3 mg/dL (8.4-10.2); CARBON DIOXIDE 25 mmol/L (22-30); CHLORIDE 110 mmol/L (98-107); CREATININE RESULT 0.74 mg/dL (0.52-1.25); GLUCOSE 193 mg/dL (75-110); MAGNESIUM 2.3 mg/dL (1.6-2.3); POTASSIUM 4.1 mmol/L (3.6-5.0); SODIUM 145.7 mmol/L (137-145)
[2016-05-29] MEDS ORDERED: BUDESONIDE NEB 0.5 MG/2 ML AMPUL NEB PRN (13:30)
[2016-05-29] MEDS ORDERED: IPRATROPIUM/ALBUTEROL 0.5-2.5 MG/3 ML AMPUL NEB PRN (13:30)
[2016-05-29] MEDS: APIXABAN 2.5 MG TABLET PO SCH ×2 (13:51→23:04)
--- NOTE | 2016-05-29 14:10 | PDOC CONSULTATION ---
Consultation Consult Date: 05/29/16 Attending physician:: DANISH DAWN Consult reason:: Cardiac dysrhythmia History of Present Illness Admission Date/PCP: 05/24/16 08:34 SARITA ABBEYMANDIELISABETH Patient complains of: Shortness of breath History of Present Illness: SUSAN BINGHAM is a 75 year old female known to me from previous encounter several months ago, who presented this time with worsening difficulty with breathing. Patient denied any associated chest pain or palpitation. She reported associated coughing with sputum production, chills but no definite fever. She was seen in the office 2 days prior to presentation at her baseline end stage COPD on supplemental oxygen at 2L/min. She demonstrated hypoxemia at 85% on 3L/min. No nausea or vomiting but had episode of fecal incontinence with diarrhea prior to her arrival at the ED. 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 She is schedule for cardiology follow up at [facility] in [place], [place] for possible replacement of her pacemaker or addition of rhythm control medication. She is currently on Eliquis therapy for her pulmonary embolism management. During my last consultation, patient was referred to [facility] for cardiac catheterization as she was noted to have wall motion abnormalities on her echocardiogram. On asking patient about this, patient just does not remember what was done. I cannot access [facility] records at this time. Have asked nurses to get this from the medical records department at [facility]. Today I was asked to see her because of some abnormalities being noted on the life skills consultant. Past Medical History Cardiac Medical History: Reports: Hyperlipidema, Hypertension, Pulmonary Embolism, Other - HX WPW Pulmonary Medical History: Reports: Asthma, Bronchitis, Chronic Obstructive Pulmonary Disease (COPD), Pneumonia, Respiratory Failure, Sleep Apnea GI Medical History: Reports: Diverticulitis, Gastroesophageal Reflux Disease Musculoskeltal Medical History: Reports: Arthritis Psychiatric Medical History: Reports: Depression Past Surgical History Past Surgical History: Reports: Colostomy - with reversal, 6 years ago, Hysterectomy, Pacemaker Social History Information Source: Patient Smoking Status: Current Some Day Smoker Frequency of Alcohol Use: None Hx Recreational Drug Use: No Drugs: None Hx Prescription Drug Abuse: No Family History Family History: Reviewed & Not Pertinent, CAD - This is in not immediate family members., DM, Hyperlipidemia, Hypertension Parental Family History Reviewed: Yes Children Family History Reviewed: Yes Sibling(s) Family History Reviewed.: Yes Medication/Allergy Home Medications: Acetazolamide [Diamox 250 mg Tab] 250 mg PO Q12 05/24/16 Albuterol Sulfate [Albuterol Sulfate 2.5mg/3 mL] 2.5 ml NEB TIDP PRN 05/24/16 Apixaban [Eliquis] 2.5 mg PO Q12 05/24/16 Buspirone HCl [Buspar 15 mg Tablet] 7.5 mg PO BID 05/24/16 Citalopram Hydrobromide [Celexa 40 mg Tablet] 40 mg PO DAILY 05/24/16 Clonazepam [Klonopin 1 mg Tablet] 1 mg PO Q12 05/24/16 Docusate Sodium [Colace 100 mg Capsule] 100 mg PO DAILY 05/24/16 Fluticasone/Salmeterol [Advair 250-50 Diskus 14 Dose/Diskus] 1 puff IH BID 05/24 Gabapentin [Neurontin 100 mg Capsule] 200 mg PO QPM 05/24/16 Montelukast Sodium [Singulair 10 mg Tablet] 10 g PO DAILY 05/24/16 Oxycodone HCl/Acetaminophen [Oxycodon-Acetaminophen 7.5-325] 1 tab PO TID Pregabalin [Lyrica] 50 mg PO DAILY 05/24/16 Promethazine HCl [Phenergan 25 mg Tablet] 25 mg PO Q6HP PRN 05/24/16 Roflumilast [Daliresp 500 mcg Tablet] 500 mcg PO DAILY 05/24/16 Ropinirole HCl 1 mg PO TID 05/24/[address] [place] [Spiriva Handihaler 5 Cap/Kit (18 Mcg/Cap)] 2 puff IH BID Zolpidem Tartrate [Ambien 5 mg Tablet] 5 mg PO HSP PRN 05/24/16 Allergies/Adverse Reactions: codeine [Codeine] Allergy (Unknown, Verified 11/04/14 17:36) erythromycin base [Erythromycin Base] Allergy (Unknown, Verified 11/04/14 17:36) Physical Exam Vital Signs: Temp Pulse Resp BP Pulse Ox 97.8 F 106 H 24 H 143/56 H 96 05/29/16 12:00 05/29/16 12:00 05/29/16 12:00 05/29/16 12:00 05/29/16 12:00 Intake & Output 05/28/16 05/29/16 05/30/16 06:59 06:59 06:59 Intake Total 2492 1592 Output Total 1250 575 Balance 1242 1017 Weight 42 kg 42 kg Exam: GENERAL: well-nourished and in no acute distress. Alert and oriented x3 HEAD: Atraumatic, normocephalic. EYES: Pupils equal round and reactive to light, extraocular movements intact, sclera anicteric, conjunctiva are normal. ENT: TMs normal, nares patent, oropharynx clear without exudates. Moist mucous membranes. No oral ulcerations or bleeding gums noted NECK: supple without lymphadenopathy. Trachea is central. No cervical or axillary lymphadenopathy noted. Carotids are 2+, JVD WNL LUNGS: Respiration seems nonlabored, no significant accessory muscle action noted. Bilateral diffuse wheezing noted. No dullness noted. CHEST: Palpation of the chest wall shows no significant chest wall tenderness. No other significant abnormalities noted. 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 ABDOMEN: Soft, no significant tenderness appreciated, normoactive bowel sounds. No guarding, no rebound. No rigidity noted . No masses appreciated. EXTREMITIES: Pedal pulses are 1-2+, no calf tenderness noted. No clubbing or cyanosis.trace pedal edema noted NEUROLOGICAL: Focused neurological exam showed no significant neurologic deficit. Normal speech, no focal weakness appreciated. PSYCH: Normal mood, normal affect. Judgment and insight within normal limits. SKIN: No significant ecchymosis, rash, ulcerations or signs of pruritus noted. MUSCULOSKELETAL EXAM: No significant joint swelling noted. Results Laboratory Results: 05/28/16 06:15 05/29/16 10:45 05/28/16 05/29/16 16:55 10:45 Carbonic Acid 1.69 H HCO3/H2CO3 Ratio 16:1 ABG pH 7.31 L ABG pCO2 56.0 H ABG pO2 108.3 H ABG HCO3 27.5 H ABG O2 Saturation 97.4 ABG Base Excess 0.4 FiO2 2.5L Sodium 145.7 H Potassium 4.1 Chloride 110 H Carbon Dioxide 25 Anion Gap 11 BUN 24 H Creatinine 0.74 Est GFR ( Amer) > 60 Est GFR (Non-Af Amer) > 60 Glucose 193 H Calcium 9.3 Magnesium 2.3 EKG Comments: Sinus tachycardia, left axis deviation, no acute ST-T wave changes noted. Impressions: Chest X-Ray 05/29/16 00:00 IMPRESSION: Slight improved aeration of the lung bases. COPD. Assessment & Plan - Diagnosis (1) Cardiac dysrhythmia Qualifiers: Arrhythmia type: unspecified cardiac arrhythmia Qualified Code(s): I49.9 - Cardiac arrhythmia, unspecified Is this a current diagnosis for this admission?: Yes (2) Acute respiratory distress Is this a current diagnosis for this admission?: Yes (3) Hypercapnic respiratory failure Qualifiers: Chronicity: acute on chronic Qualified Code(s): J96.22 - Acute and chronic respiratory failure with hypercapnia Is this a current diagnosis for this admission?: Yes (4) COPD (chronic obstructive pulmonary disease) Qualifiers: COPD type: COPD with acute exacerbation Qualified Code(s): J44.1 - Chronic obstructive pulmonary disease with (acute) exacerbation Is this a current diagnosis for this admission?: Yes (5) Coronary artery disease Qualifiers: Coronary Disease-Associated Artery/Lesion type: [place] artery [place] vs. transplanted heart: [place] heart Associated angina: angina presence unspecified Qualified Code(s): I25.10 - Atherosclerotic heart disease of [place] coronary artery without angina pectoris Is this a current diagnosis for this admission?: Yes (6) H/O cardiac pacemaker Is this a current diagnosis for this admission?: Yes - Notes Notes: Cardiac dysrhythmia: Patient gives history of cardiac dysrhythmia. Patient has a pacemaker in situ. Patient*telemetry strips were reviewed. Patient noted to have intermittent atrial paced beats. Chest x-ray shows normal positioning of pacemaker leads. Patient did have a recent pacemaker evaluation about a week ago however these results are not available. Review of telemetry monitoring shows that there are significant artifacts which preclude accurate assessment but did not see any significant abnormalities. At this point have recommended the nurse to change the leads, change the electrodes. Will continue to observe patient closely. Dyspnea: This is most likely related to severe COPD. Patient is noted to be actively wheezing. Respiratory failure with hypercapnia: Patient noted to have this based on symptoms of dyspnea and ABG report. Coronary artery disease: Previous chart review shows non-STEMI in January 2016 and coronary CTA showing coronary calcification. Currently without any chest pain. Recommend statin, aspirin, beta logan may be relatively contraindicated because of severe COPD with active wheezing. COPD with exacerbation: This is a significant problems. Patient on oxygen supplementation. Patient apparently continues to smoke. Buyer Tobacco Head has been consulted. Pacemaker in situ: Telemetry strips shows normal functioning of the pacemaker. Will review recent pacemaker interrogation results. - Time Time Spent: 30 to 50 Minutes - CODE STATUS was discussed, patient remains full code. Surrogate decision-maker patient's children. Multiple medical problems were addressed.More than 50% of the time spent coordinating care, discussing management plans with involved caregivers. Management plans discussed with involved personnels. Medical decision making was of moderate to high complexity , patient's has multiple severe comorbidities.
[2016-05-29] MEDS: GABAPENTIN 100 MG CAPSULE PO SCH (18:17)
[2016-05-29] MEDS: BUDESONIDE NEB 0.5 MG/2 ML AMPUL NEB SCH (20:11)
[2016-05-29] MEDS: IPRATROPIUM/ALBUTEROL 0.5-2.5 MG/3 ML AMPUL NEB SCH (20:11)
[2016-05-29] MEDS: PREGABALIN 50 MG CAPSULE PO SCH (23:06)
[2016-05-29] MEDS: ROFLUMILAST 500 MCG TABLET PO SCH (23:06)
[2016-05-30] MEDS: METHYLPREDNISOLONE INJ 125 MG/2 ML SDV IV SCH ×3 (02:24→17:29)
[2016-05-30 08:18] LABS: HEMATOCRIT 32.2 % (36.0-47.0); HGB HCT DIFFERENCE -2.2; MEAN CORPUSCULAR HGB CONC 31.1 g/dL (32.0-36.0); MEAN CORPUSCULAR VOLUME 90 fl (80-97); RED BLOOD COUNT 3.58 10^6/uL (3.72-5.28); RED CELL DISTRIBUTION WIDTH 16.3 % (11.5-14.0); WHITE BLOOD COUNT 12.8 10^3/uL (4.0-10.5)
[2016-05-30] MEDS: IPRATROPIUM/ALBUTEROL 0.5-2.5 MG/3 ML AMPUL NEB SCH ×2 (08:37→20:08)
[2016-05-30] MEDS: BUDESONIDE NEB 0.5 MG/2 ML AMPUL NEB SCH ×2 (08:37→20:08)
[2016-05-30 08:39] LABS: ANION GAP 7 (5-19); BLOOD UREA NITROGEN 24 mg/dL (7-20); CALCIUM 9.2 mg/dL (8.4-10.2); CARBON DIOXIDE 29 mmol/L (22-30); CHLORIDE 109 mmol/L (98-107); CREATININE RESULT 0.67 mg/dL (0.52-1.25); GLUCOSE 109 mg/dL (75-110); POTASSIUM 4.5 mmol/L (3.6-5.0); SODIUM 145.4 mmol/L (137-145)
[2016-05-30 08:43] LABS: BASOPHILS % (MANUAL) 0 % (0-2); EOSINOPHILS % (MANUAL) 0 % (0-6); LYMPHOCYTES % (MANUAL) 6 % (13-45); TOTAL CELLS COUNTED 100
[2016-05-30 08:44] LABS: ANISOCYTOSIS 1+; TARGET CELLS SLIGHT
--- NOTE | 2016-05-30 09:25 | PDOC PROGRESS REPORT ---
Subjective Progress Note for:: 05/30/16 Subjective:: Patient is currently doing fair patient is denying any chest pain denied any shortness of the breath still wheezing Patient had a somewhat irregular rhythm issue and her telemetry yesterday and was seen by the Dr. Mancuso and suggested pretty much all stable No events happened overnight Physical Exam Vital Signs: Temp Pulse Resp BP Pulse Ox 97.7 F 74 22 H 118/54 L 100 05/30/16 07:36 05/30/16 07:36 05/30/16 07:36 05/30/16 07:36 05/30/16 07:36 Intake & Output 05/29/16 05/30/16 05/31/16 06:59 06:59 06:59 Intake Total 1592 2137 Output Total 575 2450 Balance 1017 -313 Weight 42 kg 44.6 kg General appearance: PRESENT: no acute distress, well-developed, well-nourished Head exam: PRESENT: atraumatic, normocephalic Eye exam: PRESENT: conjunctiva pink, EOMI, PERRLA. ABSENT: scleral icterus Ear exam: PRESENT: normal external ear exam Mouth exam: PRESENT: moist, tongue midline Neck exam: PRESENT: full ROM. ABSENT: carotid bruit, JVD, lymphadenopathy, thyromegaly Respiratory exam: PRESENT: wheezes Cardiovascular exam: PRESENT: RRR. ABSENT: diastolic murmur, rubs, systolic murmur Pulses: PRESENT: normal dorsalis pedis pul, +2 pedal pulses bilateral Vascular exam: PRESENT: normal capillary refill GI/Abdominal exam: PRESENT: normal bowel sounds, soft. ABSENT: distended, guarding, mass, organolmegaly, rebound, tenderness Rectal exam: PRESENT: deferred Neurological exam: PRESENT: alert, awake, oriented to person, oriented to place , oriented to time, oriented to situation, CN II-XII grossly intact. ABSENT: motor sensory deficit Psychiatric exam: PRESENT: appropriate affect, normal mood. ABSENT: homicidal ideation, suicidal ideation Skin exam: PRESENT: dry, intact, warm. ABSENT: cyanosis, rash Results Laboratory Results: 05/30/16 07:40 05/30/16 07:40 05/29/16 05/30/16 05/30/16 10:45 07:40 07:40 WBC 12.8 H RBC 3.58 L Hgb 10.0 L Hct 32.2 L MCV 90 MCH 28.0 MCHC 31.1 L RDW 16.3 H Plt Count 493 H Seg Neutrophils % Not Reportable Lymphocytes % Not Reportable Monocytes % Not Reportable Eosinophils % Not Reportable Basophils % Not Reportable Absolute Neutrophils Not Reportable Absolute Lymphocytes Not Reportable Absolute Monocytes Not Reportable Absolute Eosinophils Not Reportable Absolute Basophils Not Reportable Sodium 145.7 H 145.4 H Potassium 4.1 4.5 Chloride 110 H 109 H Carbon Dioxide 25 29 Anion Gap 11 7 BUN 24 H 24 H Creatinine 0.74 0.67 Est GFR ( Amer) > 60 > 60 Est GFR (Non-Af Amer) > 60 > 60 Glucose 193 H 109 Calcium 9.3 9.2 Magnesium 2.3 Impressions: Chest X-Ray 05/29/16 00:00 IMPRESSION: Slight improved aeration of the lung bases. COPD. Assessment & Plan - Diagnosis (1) Acute bronchitis with COPD Is this a current diagnosis for this admission?: YesPlan: Continues to IV antibiotic will repeat the chest x-ray today (2) COPD (chronic obstructive pulmonary disease) Qualifiers: COPD type: COPD with acute exacerbation Qualified Code(s): J44.1 - Chronic obstructive pulmonary disease with (acute) exacerbation Is this a current diagnosis for this admission?: YesPlan: Continues to IV Solu-Medrol and continues to nebulizer treatments. The chest x- ray consult the pulmonary while patient is not getting better (3) Chronic respiratory failure with hypoxia and hypercapnia Is this a current diagnosis for this admission?: YesPlan: Patient's pH is getting better will continues to current medications consult the pulmonary (4) Coronary artery disease Qualifiers: Coronary Disease-Associated Artery/Lesion type: [place] artery [place] vs. transplanted heart: [place] heart Associated angina: angina presence unspecified Qualified Code(s): I25.10 - Atherosclerotic heart disease of [place] coronary artery without angina pectoris Is this a current diagnosis for this admission?: YesPlan: Stable (5) H/O cardiac pacemaker Is this a current diagnosis for this admission?: YesPlan: Stable (6) Chronic pain syndrome Is this a current diagnosis for this admission?: YesPlan: Continues current medications (7) HTN (hypertension) Qualifiers: Hypertension type: essential hypertension Qualified Code(s): I10 - Essential (primary) hypertension Is this a current diagnosis for this admission?: Yes - Time Time Spent with patient: 15-24 minutes Medications reviewed and adjusted accordingly: Yes Anticipated discharge: Home Within: Other - Inpatient Certification Medical Necessity: Need for IV Antibiotics Post Hospital Care: D/C Cigar Head Stringer Documentation - Plan Summary Plan Summary: Continues to current medications patient is currently stable discussed with the patient's family in the room
[2016-05-30] MEDS: BUSPIRONE HCL 10 MG TABLET PO SCH ×2 (11:00→17:29)
[2016-05-30] MEDS: OXYCODONE-ACETAMINOPHEN 5-325 MG TABLET PO PRN ×2 (11:00→21:57)
[2016-05-30] MEDS: MONTELUKAST SODIUM 10 MG TABLET PO SCH (11:00)
[2016-05-30] MEDS: ROPINIROLE HCL 1 MG TABLET PO SCH ×3 (11:01→17:29)
[2016-05-30] MEDS: OXYCODONE HCL IR 5 MG TABLET PO PRN (11:01)
[2016-05-30] MEDS: DOCUSATE SODIUM 100 MG CAPSULE PO SCH (11:01)
[2016-05-30] MEDS: ASPIRIN 81 MG TABLET, CHEWABLE PO SCH (11:01)
[2016-05-30] MEDS: ACETAZOLAMIDE 250 MG TABLET PO SCH ×2 (11:02→21:50)
[2016-05-30] MEDS: DRONABINOL 2.5 MG CAPSULE PO SCH (11:02)
[2016-05-30] MEDS: LEVOFLOXACIN 750 MG TABLET PO SCH (11:02)
[2016-05-30] MEDS: APIXABAN 2.5 MG TABLET PO SCH ×2 (11:02→21:51)
[2016-05-30] MEDS: CLONAZEPAM 1 MG TABLET PO SCH ×2 (11:02→21:50)
[2016-05-30] MEDS: CEFEPIME 1 GM/D5W RTU 50 ML IV SCH ×2 (11:04→21:51)
--- NOTE | 2016-05-30 12:07 | PDOC PROGRESS REPORT ---
Subjective Progress Note for:: 05/30/16 Subjective:: Patient doing better today. She is less short of breath. She is still wheezing but has less shortness of breath. Patient telemetry strip shows sinus rhythm. Occasional atrial paced beats are noted. Records from [facility] was reviewed. Patient was sent there in January for heart catheterization for a non-STEMI but patient did not have a heart catheter but was treated medically. Physical Exam Vital Signs: Temp Pulse Resp BP Pulse Ox 97.7 F 74 22 H 118/54 L 100 05/30/16 07:36 05/30/16 07:36 05/30/16 07:36 05/30/16 07:36 05/30/16 07:36 Intake & Output 05/29/16 05/30/16 05/31/16 06:59 06:59 06:59 Intake Total 1592 2137 Output Total 575 2450 Balance 1017 -313 Weight 42 kg 44.6 kg Exam: GENERAL: well-nourished and in no acute distress. Alert and oriented x3 HEAD: Atraumatic, normocephalic. EYES: Pupils equal round and reactive to light, extraocular movements intact, sclera anicteric, conjunctiva are normal. ENT: TMs normal, nares patent, oropharynx clear without exudates. Moist mucous membranes. No oral ulcerations or bleeding gums noted NECK: supple without lymphadenopathy. Trachea is central. No cervical or axillary lymphadenopathy noted. Carotids are 2+, JVD WNL LUNGS: Respiration seems nonlabored, no significant accessory muscle action noted. Bilateral wheezing noted, improved. No dullness noted. CHEST: Palpation of the chest wall shows no significant chest wall tenderness. No other significant abnormalities noted. Pacemaker noted on the left side. 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 ABDOMEN: Soft, no significant tenderness appreciated, normoactive bowel sounds. No guarding, no rebound. No rigidity noted . No masses appreciated. EXTREMITIES: Pedal pulses are 1-2+, no calf tenderness noted. No clubbing or cyanosis.trace to 1+ pedal edema noted NEUROLOGICAL: Focused neurological exam showed no significant neurologic deficit. Normal speech, no focal weakness appreciated. PSYCH: Normal mood, normal affect. Judgment and insight within normal limits. SKIN: No significant ecchymosis, rash, ulcerations or signs of pruritus noted. MUSCULOSKELETAL EXAM: No significant joint swelling noted. Results Laboratory Results: 05/30/16 07:40 05/30/16 07:40 05/30/16 05/30/16 07:40 07:40 WBC 12.8 H RBC 3.58 L Hgb 10.0 L Hct 32.2 L MCV 90 MCH 28.0 MCHC 31.1 L RDW 16.3 H Plt Count 493 H Seg Neutrophils % Not Reportable Lymphocytes % Not Reportable Monocytes % Not Reportable Eosinophils % Not Reportable Basophils % Not Reportable Absolute Neutrophils Not Reportable Absolute Lymphocytes Not Reportable Absolute Monocytes Not Reportable Absolute Eosinophils Not Reportable Absolute Basophils Not Reportable Sodium 145.4 H Potassium 4.5 Chloride 109 H Carbon Dioxide 29 Anion Gap 7 BUN 24 H Creatinine 0.67 Est GFR ( Amer) > 60 Est GFR (Non-Af Amer) > 60 Glucose 109 Calcium 9.2 Impressions: Chest X-Ray 05/29/16 00:00 IMPRESSION: Slight improved aeration of the lung bases. COPD. Assessment & Plan - Diagnosis (1) Cardiac dysrhythmia Qualifiers: Arrhythmia type: unspecified cardiac arrhythmia Qualified Code(s): I49.9 - Cardiac arrhythmia, unspecified Is this a current diagnosis for this admission?: Yes (2) Acute respiratory distress Is this a current diagnosis for this admission?: Yes (3) Hypercapnic respiratory failure Qualifiers: Chronicity: acute on chronic Qualified Code(s): J96.22 - Acute and chronic respiratory failure with hypercapnia Is this a current diagnosis for this admission?: Yes (4) COPD (chronic obstructive pulmonary disease) Qualifiers: COPD type: COPD with acute exacerbation Qualified Code(s): J44.1 - Chronic obstructive pulmonary disease with (acute) exacerbation Is this a current diagnosis for this admission?: Yes (5) Coronary artery disease Qualifiers: Coronary Disease-Associated Artery/Lesion type: [place] artery [place] vs. transplanted heart: [place] heart Associated angina: angina presence unspecified Qualified Code(s): I25.10 - Atherosclerotic heart disease of [place] coronary artery without angina pectoris Is this a current diagnosis for this admission?: Yes (6) H/O cardiac pacemaker Is this a current diagnosis for this admission?: Yes - Notes Notes: Cardiac dysrhythmia: Patient gives history of cardiac dysrhythmia. Patient has a pacemaker in situ. Patient telemetry strips were reviewed. Patient noted to have intermittent atrial paced beats. Chest x-ray shows normal positioning of pacemaker leads. Patient did have a recent pacemaker evaluation about a week ago however these results are not available. Review of telemetry monitoring shows that patient maintaining sinus rhythm. No indication of pacemaker malfunction just on rhythm strip reviewed. Patient did have a pacemaker interrogation last week results of which are not available. Will continue to observe patient closely. Dyspnea: Improved. This is most likely related to severe COPD. Patient is noted to be wheezing but less than yesterday. Respiratory failure with hypercapnia: Patient noted to have this based on symptoms of dyspnea and ABG report. Improved Coronary artery disease: Previous chart review shows non-STEMI in January 2016 and coronary CTA showing coronary calcification. Currently without any chest pain. Recommend statin, aspirin, beta logan may be relatively contraindicated because of severe COPD with active wheezing. Currently stable. COPD with exacerbation: This is a significant problems. Patient on oxygen supplementation. Patient apparently continues to smoke. Obstetrical Tech has been consulted. Improved. Continue current regimen. - Time Time with patient: 15-25 minutes - CODE STATUS was discussed, patient remains full code. Surrogate decision-maker unchanged. Multiple medical problems were addressed.More than 50% of the time spent coordinating care, discussing management plans with involved caregivers. Management plans discussed with involved personnels. Medical decision making was of moderate to high complexity , patient's has multiple severe comorbidities.
[2016-05-30] MEDS: GABAPENTIN 100 MG CAPSULE PO SCH (17:29)
[2016-05-30] MEDS: PREGABALIN 50 MG CAPSULE PO SCH (21:50)
[2016-05-30] MEDS: ROFLUMILAST 500 MCG TABLET PO SCH (21:51)
[2016-05-30] MEDS: NORMAL SALINE 1000 ML 1,000 ML IV PRN (21:51)
[2016-05-30] MEDS: ZOLPIDEM TARTRATE 5 MG TABLET PO PRN (23:24)
[2016-05-31] MEDS: METHYLPREDNISOLONE INJ 125 MG/2 ML SDV IV SCH ×3 (02:10→17:49)
[2016-05-31 06:31] LABS: ANION GAP 8 (5-19); BLOOD UREA NITROGEN 26 mg/dL (7-20); CALCIUM 8.8 mg/dL (8.4-10.2); CARBON DIOXIDE 28 mmol/L (22-30); CHLORIDE 107 mmol/L (98-107); CREATININE RESULT 0.65 mg/dL (0.52-1.25); GLUCOSE 140 mg/dL (75-110); POTASSIUM 4.4 mmol/L (3.6-5.0); SODIUM 142.9 mmol/L (137-145)
[2016-05-31] MEDS: IPRATROPIUM/ALBUTEROL 0.5-2.5 MG/3 ML AMPUL NEB SCH ×2 (08:42→20:09)
[2016-05-31] MEDS: BUDESONIDE NEB 0.5 MG/2 ML AMPUL NEB SCH ×2 (08:42→20:09)
[2016-05-31] MEDS: DRONABINOL 2.5 MG CAPSULE PO SCH (11:19)
[2016-05-31] MEDS: DOCUSATE SODIUM 100 MG CAPSULE PO SCH (11:25)
[2016-05-31] MEDS: LEVOFLOXACIN 750 MG TABLET PO SCH (11:26)
[2016-05-31] MEDS: MONTELUKAST SODIUM 10 MG TABLET PO SCH (11:26)
[2016-05-31] MEDS: ASPIRIN 81 MG TABLET, CHEWABLE PO SCH (11:26)
[2016-05-31] MEDS: ROPINIROLE HCL 1 MG TABLET PO SCH ×3 (11:26→18:56)
[2016-05-31] MEDS: ACETAZOLAMIDE 250 MG TABLET PO SCH ×2 (11:27→21:56)
[2016-05-31] MEDS: APIXABAN 2.5 MG TABLET PO SCH ×2 (11:27→21:56)
[2016-05-31] MEDS: BUSPIRONE HCL 10 MG TABLET PO SCH ×2 (11:27→17:50)
[2016-05-31] MEDS: GABAPENTIN 100 MG CAPSULE PO SCH (17:48)
--- NOTE | 2016-05-31 18:44 | PDOC PROGRESS REPORT ---
Subjective Progress Note for:: 05/31/16 Subjective:: Patient reported worsening breathing ability over the last weekend with Dr. Suarez on coverage. She was seen in consultation by Dr. Gomez, daytime babysitter, due to arrhythmia. She reported some improvement in breathing effort. She denied any chest pain. No nausea or vomiting. Appetite and p.o intake are improving. No abdominal pain. No fever or chills. Remain on IV antibiotic and IV Solu Medrol therapy. Physical Exam Vital Signs: Temp Pulse Resp BP Pulse Ox 97.2 F 77 16 118/55 L 100 05/31/16 12:00 05/31/16 12:00 05/31/16 12:00 05/31/16 12:00 05/31/16 12:00 Intake & Output 05/30/16 05/31/16 06/01/16 06:59 06:59 06:59 Intake Total 2137 3726 900 Output Total 2450 200 800 Balance -313 3526 100 Weight 44.6 kg 45 kg Physical Exam: General appearance: PRESENT: no acute distress, cooperative, mild distress, thin Head exam: PRESENT: atraumatic, normocephalic Eye exam: PRESENT: conjunctiva pink, EOMI, PERRLA. ABSENT: scleral icterus Respiratory exam: PRESENT: less crackles, decreased breath sounds, rhonchi Cardiovascular exam: PRESENT: RRR. ABSENT: diastolic murmur, rubs, systolic murmur GI/Abdominal exam: PRESENT: normal bowel sounds, soft. ABSENT: distended, guarding, mass, organomegaly, rebound, tenderness Extremities exam: PRESENT: full ROM Musculoskeletal exam: PRESENT: deformity - related to joint involvement with arthritis Neurological exam: PRESENT: alert, awake, oriented to person, oriented to place , oriented to time, oriented to situation, CN II-XII grossly intact. ABSENT: motor sensory deficit Psychiatric exam: PRESENT: appropriate affect, normal mood. ABSENT: homicidal ideation, suicidal ideation Skin exam: PRESENT: dry, intact, warm. ABSENT: cyanosis, rash Results Laboratory Results: 05/30/16 07:40 05/31/16 04:45 05/31/16 04:45 Sodium 142.9 Potassium 4.4 Chloride 107 Carbon Dioxide 28 Anion Gap 8 BUN 26 H Creatinine 0.65 Est GFR ( Amer) > 60 Est GFR (Non-Af Amer) > 60 Glucose 140 H Calcium 8.8 Impressions: Chest X-Ray 05/29/16 00:00 IMPRESSION: Slight improved aeration of the lung bases. COPD. Assessment & Plan - Diagnosis (1) Mixed anxiety and depressive disorder Is this a current diagnosis for this admission?: Yes (2) Acute bronchitis with COPD Is this a current diagnosis for this admission?: YesPlan: Continue on current antibiotic coverage and bronchodilator therapy. Blood culture is no growth x 5 days. (3) COPD (chronic obstructive pulmonary disease) Qualifiers: COPD type: COPD with acute exacerbation Qualified Code(s): J44.1 - Chronic obstructive pulmonary disease with (acute) exacerbation Is this a current diagnosis for this admission?: YesPlan: Continue current IV Solu Medrol down 80 mg [id number] and bronchodilator therapy. See attending physician orders. (4) Chronic respiratory failure with hypoxia and hypercapnia Is this a current diagnosis for this admission?: YesPlan: Continue current medication management. See attending physician orders. (5) H/O cardiac pacemaker Is this a current diagnosis for this admission?: YesPlan: See attending physician orders. Maintain on current medication management. (6) Pulmonary embolism Qualifiers: Pulmonary embolism type: other Chronicity: chronic Acute cor pulmonale presence: without acute cor pulmonale Qualified Code(s): I27.82 - Chronic pulmonary embolism Is this a current diagnosis for this admission?: YesPlan: See attending physician orders. Maintain on current medication management. (7) HLD (hyperlipidemia) Qualifiers: Hyperlipidemia type: pure hypercholesterolemia Qualified Code(s): E78.00 - Pure hypercholesterolemia, unspecified; E78.0 - Pure hypercholesterolemia Is this a current diagnosis for this admission?: YesPlan: See attending physician orders. Maintain on current medication management. (8) HTN (hypertension) Qualifiers: Hypertension type: essential hypertension Qualified Code(s): I10 - Essential (primary) hypertension Is this a current diagnosis for this admission?: YesPlan: See attending physician orders. Maintain on medication medication management. (9) Hnrfx-Mjsilidjd-Rgbqq syndrome Is this a current diagnosis for this admission?: YesPlan: See attending physician orders. Maintain on current medication management. (10) Diarrhea Qualifiers: Diarrhea type: unspecified type Qualified Code(s): R19.7 - Diarrhea , unspecified Is this a current diagnosis for this admission?: NoPlan: Improved. See attending physician orders. - Time Time Spent with patient: 25-34 minutes Medications reviewed and adjusted accordingly: Yes Anticipated discharge: Home with Homehealth Within: Other - Inpatient Certification Medical Necessity: Need Close Monitoring Due to Risk of Patient Decompensation, Need For IV Fluids, Need For Continuous Telemetry Monitoring, Need for Nebulizer Therapy and Monitoring of Response, Need for IV Antibiotics, Risk of Complication if Not Cared For in Hospital Post Hospital Care: D/C Mirror Polisher Documentation - Plan Summary Plan Summary: I will maintain on IV solu medrol and re-evaluate tapering her of and transition to oral steroid therapy as she improves with regard to scattered expiratory rhonchi. I will obtain speech pathology evaluation for possible aspiration risk and recurrent episodes of worsening rhonchi.
--- NOTE | 2016-05-31 20:52 | PDOC PROGRESS REPORT ---
Subjective Progress Note for:: 05/31/16 Subjective:: Patient doing better today. She is less short of breath. She is still wheezing but has less shortness of breath. Patient telemetry strip shows sinus rhythm. Occasional atrial paced beats are noted. Records from [facility] was reviewed. Patient was sent there in January for heart catheterization for a non-STEMI but patient did not have a heart catheter but was treated medically. Patient claims that she is being followed closely by a didactic program in dietetics director and had a recent pacemaker placement. At this point her problem seems mainly pulmonary. Telemetry strips reviewed did not show any significant significant dysrhythmia. Physical Exam Vital Signs: Temp Pulse Resp BP Pulse Ox 97.2 F 71 16 118/55 L 96 05/31/16 12:00 05/31/16 20:12 05/31/16 20:12 05/31/16 12:00 05/31/16 20:12 Intake & Output 05/30/16 05/31/16 06/01/16 06:59 06:59 06:59 Intake Total 2137 3726 900 Output Total 2450 200 800 Balance -313 3526 100 Weight 44.6 kg 45 kg Exam: GENERAL: well-nourished and in no acute distress. Alert and oriented x3 HEAD: Atraumatic, normocephalic. EYES: Pupils equal round and reactive to light, extraocular movements intact, sclera anicteric, conjunctiva are normal. ENT: TMs normal, nares patent, oropharynx clear without exudates. Moist mucous membranes. No oral ulcerations or bleeding gums noted NECK: supple without lymphadenopathy. Trachea is central. No cervical or axillary lymphadenopathy noted. Carotids are 2+, JVD WNL LUNGS: Respiration seems nonlabored, no significant accessory muscle action noted. Bilateral wheezing noted. No dullness noted. CHEST: Palpation of the chest wall shows no significant chest wall tenderness. No other significant abnormalities noted. 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 ABDOMEN: Soft, no significant tenderness appreciated, normoactive bowel sounds. No guarding, no rebound. No rigidity noted . No masses appreciated. EXTREMITIES: Pedal pulses are 1-2+, no calf tenderness noted. No clubbing or cyanosis.negative pedal edema noted NEUROLOGICAL: Focused neurological exam showed no significant neurologic deficit. Normal speech, no focal weakness appreciated. PSYCH: Normal mood, normal affect. Judgment and insight within normal limits. SKIN: No significant ecchymosis, rash, ulcerations or signs of pruritus noted. MUSCULOSKELETAL EXAM: No significant joint swelling noted. Results Laboratory Results: 05/30/16 07:40 05/31/16 04:45 05/31/16 04:45 Sodium 142.9 Potassium 4.4 Chloride 107 Carbon Dioxide 28 Anion Gap 8 BUN 26 H Creatinine 0.65 Est GFR ( Amer) > 60 Est GFR (Non-Af Amer) > 60 Glucose 140 H Calcium 8.8 Impressions: Chest X-Ray 05/29/16 00:00 IMPRESSION: Slight improved aeration of the lung bases. COPD. Assessment & Plan - Diagnosis (1) Cardiac dysrhythmia Qualifiers: Arrhythmia type: unspecified cardiac arrhythmia Qualified Code(s): I49.9 - Cardiac arrhythmia, unspecified Is this a current diagnosis for this admission?: Yes (2) Acute respiratory distress Is this a current diagnosis for this admission?: Yes (3) Hypercapnic respiratory failure Qualifiers: Chronicity: acute on chronic Qualified Code(s): J96.22 - Acute and chronic respiratory failure with hypercapnia Is this a current diagnosis for this admission?: Yes (4) COPD (chronic obstructive pulmonary disease) Qualifiers: COPD type: COPD with acute exacerbation Qualified Code(s): J44.1 - Chronic obstructive pulmonary disease with (acute) exacerbation Is this a current diagnosis for this admission?: Yes (5) Coronary artery disease Qualifiers: Coronary Disease-Associated Artery/Lesion type: [place] artery [place] vs. transplanted heart: [place] heart Associated angina: angina presence unspecified Qualified Code(s): I25.10 - Atherosclerotic heart disease of [place] coronary artery without angina pectoris Is this a current diagnosis for this admission?: Yes (6) H/O cardiac pacemaker Is this a current diagnosis for this admission?: Yes - Notes Notes: Cardiac dysrhythmia: Telemetry reviewed. No significant dysrhythmia noted. Acute respiratory distress: This is related to severe COPD. Hypercapnic respiratory failure: Again related to COPD CAD: Clinically stable. Patient to report any chest pain. History of pacemaker placement. Patient being followed by a didactic program in dietetics director in [place]. Will repeat a 12-lead EKG in the morning. Patient last EKG was several days ago. Patient's medical regimen reviewed and is currently satisfactory. - Time Time with patient: 15-25 minutes - CODE STATUS was discussed, patient remains full code. Surrogate decision-maker unchanged. Multiple medical problems were addressed.More than 50% of the time spent coordinating care, discussing management plans with involved caregivers. Management plans discussed with involved personnels. Medical decision making was of moderate to high complexity , patient's has multiple severe comorbidities. Medications reviewed and adjusted accordingly: Yes
[2016-05-31] MEDS: PREGABALIN 50 MG CAPSULE PO SCH (21:56)
[2016-05-31] MEDS: ROFLUMILAST 500 MCG TABLET PO SCH (21:56)
[2016-05-31] MEDS: ZOLPIDEM TARTRATE 5 MG TABLET PO PRN (22:38)
[2016-05-31] MEDS ORDERED: OXYCODONE-ACETAMINOPHEN 5-325 MG TABLET PO ONE (23:00)
[2016-05-31] MEDS ORDERED: OXYCODONE HCL IR 5 MG TABLET PO ONE (23:00)
[2016-05-31] MEDS: NORMAL SALINE 1000 ML 1,000 ML IV PRN (23:14)
[2016-06-01] MEDS: METHYLPREDNISOLONE INJ 125 MG/2 ML SDV IV SCH ×4 (02:39→21:04)
[2016-06-01 06:17] LABS: ANION GAP 9 (5-19); BLOOD UREA NITROGEN 24 mg/dL (7-20); CALCIUM 8.9 mg/dL (8.4-10.2); CARBON DIOXIDE 26 mmol/L (22-30); CHLORIDE 108 mmol/L (98-107); CREATININE RESULT 0.66 mg/dL (0.52-1.25); GLUCOSE 96 mg/dL (75-110); POTASSIUM 4.3 mmol/L (3.6-5.0); SODIUM 142.7 mmol/L (137-145)
[2016-06-01] MEDS: IPRATROPIUM/ALBUTEROL 0.5-2.5 MG/3 ML AMPUL NEB SCH ×2 (08:18→20:35)
[2016-06-01] MEDS: BUDESONIDE NEB 0.5 MG/2 ML AMPUL NEB SCH ×2 (08:18→20:35)
[2016-06-01] MEDS: ACETAZOLAMIDE 250 MG TABLET PO SCH ×2 (09:42→21:03)
[2016-06-01] MEDS: APIXABAN 2.5 MG TABLET PO SCH ×2 (09:43→21:04)
[2016-06-01] MEDS: ASPIRIN 81 MG TABLET, CHEWABLE PO SCH (09:44)
[2016-06-01] MEDS: MONTELUKAST SODIUM 10 MG TABLET PO SCH (09:45)
[2016-06-01] MEDS: ROPINIROLE HCL 1 MG TABLET PO SCH ×3 (09:45→18:13)
[2016-06-01] MEDS: BUSPIRONE HCL 10 MG TABLET PO SCH ×2 (09:45→18:12)
[2016-06-01] MEDS: LEVOFLOXACIN 750 MG TABLET PO SCH (09:46)
[2016-06-01] MEDS: DOCUSATE SODIUM 100 MG CAPSULE PO SCH (09:47)
--- NOTE | 2016-06-01 11:13 | EKG REPORT ---
SEVERITY:- ABNORMAL ECG - ATRIAL-PACED COMPLEXES NONSPECIFIC INTRAVENTRICULAR CONDUCTION DELAY : Confirmed by: Mervat Mancuso 01-Jun-2016 11:12:52
[2016-06-01] MEDS: GABAPENTIN 100 MG CAPSULE PO SCH (18:13)
--- NOTE | 2016-06-01 19:00 | PDOC PROGRESS REPORT ---
Subjective Progress Note for:: 06/01/16 Subjective:: Patient reported improvement in her breathing so far today. Her spech evaluation as suggestive of reflux or reaction to environmental factors as cause of her breathing decompensation. She denied any chest pain. No nausea or vomiting. Appetite and p.o intake are improving. No fever or chills. Remain on IV antibiotic and IV Solu Medrol therapy. Physical Exam Vital Signs: Temp Pulse Resp BP Pulse Ox 97.7 F 77 16 141/61 H 97 06/01/16 07:19 06/01/16 14:00 06/01/16 08:21 06/01/16 07:19 06/01/16 08:21 Intake & Output 05/31/16 06/01/16 06/02/16 06:59 06:59 06:59 Intake Total 3726 1500 1366 Output Total 200 1300 1800 Balance 3526 200 -434 Weight 45 kg Physical Exam: General appearance: PRESENT: no acute distress, cooperative, mild distress, thin Head exam: PRESENT: atraumatic, normocephalic Eye exam: PRESENT: conjunctiva pink, EOMI, PERRLA. ABSENT: scleral icterus Respiratory exam: PRESENT: No crackles, decreased breath sounds, less end expiratory rhonchi Cardiovascular exam: PRESENT: RRR. ABSENT: diastolic murmur, rubs, systolic murmur GI/Abdominal exam: PRESENT: normal bowel sounds, soft. ABSENT: distended, guarding, mass, organomegaly, rebound, tenderness Extremities exam: PRESENT: full ROM Musculoskeletal exam: PRESENT: deformity - related to joint involvement with arthritis Neurological exam: PRESENT: alert, awake, oriented to person, oriented to place , oriented to time, oriented to situation, CN II-XII grossly intact. ABSENT: motor sensory deficit Psychiatric exam: PRESENT: appropriate affect, normal mood. ABSENT: homicidal ideation, suicidal ideation Skin exam: PRESENT: dry, intact, warm. ABSENT: cyanosis, rash Results Laboratory Results: 05/30/16 07:40 06/01/16 05:15 06/01/16 05:15 Sodium 142.7 Potassium 4.3 Chloride 108 H Carbon Dioxide 26 Anion Gap 9 BUN 24 H Creatinine 0.66 Est GFR ( Amer) > 60 Est GFR (Non-Af Amer) > 60 Glucose 96 Calcium 8.9 Impressions: Chest X-Ray 05/29/16 00:00 IMPRESSION: Slight improved aeration of the lung bases. COPD. Assessment & Plan - Diagnosis (1) Mixed anxiety and depressive disorder Is this a current diagnosis for this admission?: YesPlan: See attending physician orders. Maintain on current medication management. (2) Acute bronchitis with COPD Is this a current diagnosis for this admission?: YesPlan: Continue on current antibiotic coverage and bronchodilator therapy. (3) COPD (chronic obstructive pulmonary disease) Qualifiers: COPD type: COPD with acute exacerbation Qualified Code(s): J44.1 - Chronic obstructive pulmonary disease with (acute) exacerbation Is this a current diagnosis for this admission?: YesPlan: Continue current IV Solu Medrol but taper down to 60 mg [id number] and bronchodilator therapy. See attending physician orders. (4) Chronic respiratory failure with hypoxia and hypercapnia Is this a current diagnosis for this admission?: YesPlan: Continue current medication management. See attending physician orders. (5) H/O cardiac pacemaker Is this a current diagnosis for this admission?: YesPlan: See attending physician orders. Maintain on current medication management. (6) Pulmonary embolism Qualifiers: Pulmonary embolism type: other Chronicity: chronic Acute cor pulmonale presence: without acute cor pulmonale Qualified Code(s): I27.82 - Chronic pulmonary embolism Is this a current diagnosis for this admission?: YesPlan: See attending physician orders. Maintain on current medication management. (7) HLD (hyperlipidemia) Qualifiers: Hyperlipidemia type: pure hypercholesterolemia Qualified Code(s): E78.00 - Pure hypercholesterolemia, unspecified; E78.0 - Pure hypercholesterolemia Is this a current diagnosis for this admission?: YesPlan: See attending physician orders. Maintain on current medication management. (8) HTN (hypertension) Qualifiers: Hypertension type: essential hypertension Qualified Code(s): I10 - Essential (primary) hypertension Is this a current diagnosis for this admission?: YesPlan: See attending physician orders. Maintain on medication medication management. (9) Xyiui-Jvyrorpfa-Bplin syndrome Is this a current diagnosis for this admission?: YesPlan: See attending physician orders. Maintain on current medication management. (10) Diarrhea Qualifiers: Diarrhea type: unspecified type Qualified Code(s): R19.7 - Diarrhea , unspecified Is this a current diagnosis for this admission?: NoPlan: Improved. See attending physician orders. - Time Time Spent with patient: 25-34 minutes Medications reviewed and adjusted accordingly: Yes Anticipated discharge: Home with Homehealth Within: Other - Inpatient Certification Medical Necessity: Need Close Monitoring Due to Risk of Patient Decompensation, Need For IV Fluids, Need For Continuous Telemetry Monitoring, Need for Nebulizer Therapy and Monitoring of Response, Risk of Complication if Not Cared For in Hospital Post Hospital Care: D/C Food Service Assistant 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 I will request for physical therapy evaluation for possible deconditioning.
--- NOTE | 2016-06-01 20:43 | PDOC PROGRESS REPORT ---
Subjective Progress Note for:: 06/01/16 Subjective:: Patient doing better today. She is less short of breath. She is still wheezing but has less shortness of breath. Patient has significant COPD and most of the problem arising from that. Telemetry strips reviewed did not show any significant significant dysrhythmia. EKG review and telemetry strips review shows intermittent atrial paced beats. But patient mainly maintaining her own rhythm. Physical Exam Vital Signs: Temp Pulse Resp BP Pulse Ox 97.7 F 77 16 141/61 H 97 06/01/16 07:19 06/01/16 14:00 06/01/16 08:21 06/01/16 07:19 06/01/16 08:21 Intake & Output 05/31/16 06/01/16 06/02/16 06:59 06:59 06:59 Intake Total 3726 1500 1366 Output Total 200 1300 1800 Balance 3526 200 -434 Weight 45 kg Exam: GENERAL: well-nourished and in no acute distress. Alert and oriented x3 HEAD: Atraumatic, normocephalic. EYES: Pupils equal round and reactive to light, extraocular movements intact, sclera anicteric, conjunctiva are normal. ENT: TMs normal, nares patent, oropharynx clear without exudates. Moist mucous membranes. No oral ulcerations or bleeding gums noted NECK: supple without lymphadenopathy. Trachea is central. No cervical or axillary lymphadenopathy noted. Carotids are 2+, JVD WNL LUNGS: Respiration seems nonlabored, no significant accessory muscle action noted. Few bilateral wheezes rales or rhonchi noted. No significant dullness noted on percussion. Lung findings improved CHEST: Palpation of the chest wall shows no significant chest wall tenderness. No other significant abnormalities noted. 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 ABDOMEN: Soft, no significant tenderness appreciated, normoactive bowel sounds. No guarding, no rebound. No rigidity noted . No masses appreciated. EXTREMITIES: Pedal pulses are 1-2+, no calf tenderness noted. No clubbing or cyanosis.negative pedal edema noted NEUROLOGICAL: Focused neurological exam showed no significant neurologic deficit. Normal speech, no focal weakness appreciated. PSYCH: Normal mood, normal affect. Judgment and insight within normal limits. SKIN: No significant ecchymosis, rash, ulcerations or signs of pruritus noted. MUSCULOSKELETAL EXAM: No significant joint swelling noted. Results Laboratory Results: 05/30/16 07:40 06/01/16 05:15 06/01/16 05:15 Sodium 142.7 Potassium 4.3 Chloride 108 H Carbon Dioxide 26 Anion Gap 9 BUN 24 H Creatinine 0.66 Est GFR ( Amer) > 60 Est GFR (Non-Af Amer) > 60 Glucose 96 Calcium 8.9 Impressions: Chest X-Ray 05/29/16 00:00 IMPRESSION: Slight improved aeration of the lung bases. COPD. Assessment & Plan - Diagnosis (1) Cardiac dysrhythmia Qualifiers: Arrhythmia type: unspecified cardiac arrhythmia Qualified Code(s): I49.9 - Cardiac arrhythmia, unspecified Is this a current diagnosis for this admission?: Yes (2) Acute respiratory distress Is this a current diagnosis for this admission?: Yes (3) Hypercapnic respiratory failure Qualifiers: Chronicity: acute on chronic Qualified Code(s): J96.22 - Acute and chronic respiratory failure with hypercapnia Is this a current diagnosis for this admission?: Yes (4) COPD (chronic obstructive pulmonary disease) Qualifiers: COPD type: COPD with acute exacerbation Qualified Code(s): J44.1 - Chronic obstructive pulmonary disease with (acute) exacerbation Is this a current diagnosis for this admission?: Yes (5) Coronary artery disease Qualifiers: Coronary Disease-Associated Artery/Lesion type: [place] artery [place] vs. transplanted heart: [place] heart Associated angina: angina presence unspecified Qualified Code(s): I25.10 - Atherosclerotic heart disease of [place] coronary artery without angina pectoris Is this a current diagnosis for this admission?: Yes (6) H/O cardiac pacemaker Is this a current diagnosis for this admission?: Yes - Notes Notes: Cardiac dysrhythmia: Telemetry reviewed. No significant dysrhythmia noted. Acute respiratory distress: This is related to severe COPD. Hypercapnic respiratory failure: Again related to COPD CAD: Clinically stable. Patient to report any chest pain. History of pacemaker placement. Patient being followed by a caster operator in [place]. Twelve-lead EKG reviewed. It showed atrial paced rhythm. Patient's medical regimen reviewed and is currently satisfactory. Patient has remained stable from [employer] standpoint. At this point will sign off. Please reconsult if needed.
[2016-06-01] MEDS: ROFLUMILAST 500 MCG TABLET PO SCH (21:03)
[2016-06-01] MEDS: PREGABALIN 50 MG CAPSULE PO SCH (21:04)
[2016-06-01] MEDS: OXYCODONE HCL IR 5 MG TABLET PO PRN (21:09)
[2016-06-01] MEDS: OXYCODONE-ACETAMINOPHEN 5-325 MG TABLET PO PRN (21:11)
[2016-06-02] MEDS: METHYLPREDNISOLONE INJ 125 MG/2 ML SDV IV SCH ×2 (05:39→14:08)
[2016-06-02 06:56] LABS: HEMATOCRIT 34.9 % (36.0-47.0); HEMOGLOBIN 10.8 g/dL (12.0-15.5); HGB HCT DIFFERENCE -2.5; MEAN CORPUSCULAR HEMOGLOBIN 27.8 pg (27.0-33.4); MEAN CORPUSCULAR HGB CONC 31.1 g/dL (32.0-36.0); MEAN CORPUSCULAR VOLUME 90 fl (80-97); RED CELL DISTRIBUTION WIDTH 16.3 % (11.5-14.0); WHITE BLOOD COUNT 14.3 10^3/uL (4.0-10.5)
[2016-06-02 07:30] LABS: BASOPHILS % (MANUAL) 0 % (0-2); EOSINOPHILS % (MANUAL) 0 % (0-6); LYMPHOCYTES % (MANUAL) 5 % (13-45); TOTAL CELLS COUNTED 100
[2016-06-02 07:32] LABS: ANISOCYTOSIS 1+
[2016-06-02] MEDS: BUDESONIDE NEB 0.5 MG/2 ML AMPUL NEB SCH ×2 (07:52→20:24)
[2016-06-02] MEDS: IPRATROPIUM/ALBUTEROL 0.5-2.5 MG/3 ML AMPUL NEB SCH (07:52)
[2016-06-02] MEDS: ROPINIROLE HCL 1 MG TABLET PO SCH ×3 (10:37→18:48)
[2016-06-02] MEDS: ASPIRIN 81 MG TABLET, CHEWABLE PO SCH (10:37)
[2016-06-02] MEDS: MONTELUKAST SODIUM 10 MG TABLET PO SCH (10:37)
[2016-06-02] MEDS: ACETAZOLAMIDE 250 MG TABLET PO SCH ×2 (10:38→21:23)
[2016-06-02] MEDS: LEVOFLOXACIN 750 MG TABLET PO SCH (10:38)
[2016-06-02] MEDS: BUSPIRONE HCL 10 MG TABLET PO SCH ×2 (10:39→18:47)
[2016-06-02] MEDS: APIXABAN 2.5 MG TABLET PO SCH ×2 (10:40→21:22)
[2016-06-02] MEDS: DOCUSATE SODIUM 100 MG CAPSULE PO SCH (10:41)
[2016-06-02] MEDS ORDERED: ALPRAZOLAM 0.25 MG TABLET PO ONE (16:15)
--- NOTE | 2016-06-02 18:04 | PDOC PROGRESS REPORT ---
Subjective Progress Note for:: 06/02/16 Subjective:: Patient reported some improvement in her breathing. She participated in physical therapy session. She is adamant about going home upon discharge. She denied any chest pain. No nausea or vomiting. Appetite and p.o intake are improving. No fever or chills. Remain on IV antibiotic and IV Solu Medrol therapy. Physical Exam Vital Signs: Temp Pulse Resp BP Pulse Ox 98.1 F 75 14 120/58 L 98 06/02/16 16:00 06/02/16 16:00 06/02/16 16:00 06/02/16 16:00 06/02/16 16:00 Intake & Output 06/01/16 06/02/16 06/03/16 06:59 06:59 06:59 Intake Total 1500 2539 400 Output Total 1300 2200 800 Balance 200 339 -400 Physical Exam: General appearance: PRESENT: no acute distress, cooperative, mild distress, thin Head exam: PRESENT: atraumatic, normocephalic Eye exam: PRESENT: conjunctiva pink, EOMI, PERRLA. ABSENT: scleral icterus Respiratory exam: PRESENT: No crackles, decreased breath sounds, less end expiratory rhonchi Cardiovascular exam: PRESENT: RRR. ABSENT: diastolic murmur, rubs, systolic murmur GI/Abdominal exam: PRESENT: normal bowel sounds, soft. ABSENT: distended, guarding, mass, organomegaly, rebound, tenderness Extremities exam: PRESENT: full ROM Musculoskeletal exam: PRESENT: deformity - related to joint involvement with arthritis Neurological exam: PRESENT: alert, awake, oriented to person, oriented to place , oriented to time, oriented to situation, CN II-XII grossly intact. ABSENT: motor sensory deficit Psychiatric exam: PRESENT: appropriate affect, normal mood. ABSENT: homicidal ideation, suicidal ideation Skin exam: PRESENT: dry, intact, warm. ABSENT: cyanosis, rash Results Laboratory Results: 06/02/16 05:45 06/01/16 05:15 06/02/16 05:45 WBC 14.3 H RBC 3.90 Hgb 10.8 L Hct 34.9 L MCV 90 MCH 27.8 MCHC 31.1 L RDW 16.3 H Plt Count 512 H Seg Neutrophils % Not Reportable Lymphocytes % Not Reportable Monocytes % Not Reportable Eosinophils % Not Reportable Basophils % Not Reportable Absolute Neutrophils Not Reportable Absolute Lymphocytes Not Reportable Absolute Monocytes Not Reportable Absolute Eosinophils Not Reportable Absolute Basophils Not Reportable Impressions: Chest X-Ray 05/29/16 00:00 IMPRESSION: Slight improved aeration of the lung bases. COPD. Assessment & Plan - Diagnosis (1) Mixed anxiety and depressive disorder Is this a current diagnosis for this admission?: Yes (2) Acute bronchitis with COPD Is this a current diagnosis for this admission?: YesPlan: Continue on current antibiotic coverage and bronchodilator therapy. (3) COPD (chronic obstructive pulmonary disease) Qualifiers: COPD type: COPD with acute exacerbation Qualified Code(s): J44.1 - Chronic obstructive pulmonary disease with (acute) exacerbation Is this a current diagnosis for this admission?: YesPlan: D/C IV Solu Medrol due to incident of increase jitteriness of unclear source, steroid induce versus bronchodilator. See attending physician orders. (4) Chronic respiratory failure with hypoxia and hypercapnia Is this a current diagnosis for this admission?: YesPlan: Continue current medication management. See attending physician orders. (5) H/O cardiac pacemaker Is this a current diagnosis for this admission?: Yes (6) Pulmonary embolism Qualifiers: Pulmonary embolism type: other Chronicity: chronic Acute cor pulmonale presence: without acute cor pulmonale Qualified Code(s): I27.82 - Chronic pulmonary embolism Is this a current diagnosis for this admission?: Yes (7) HLD (hyperlipidemia) Qualifiers: Hyperlipidemia type: pure hypercholesterolemia Qualified Code(s): E78.00 - Pure hypercholesterolemia, unspecified; E78.0 - Pure hypercholesterolemia Is this a current diagnosis for this admission?: Yes (8) HTN (hypertension) Qualifiers: Hypertension type: essential hypertension Qualified Code(s): I10 - Essential (primary) hypertension Is this a current diagnosis for this admission?: Yes (9) Ztqoe-Mdhgklabu-Nofcr syndrome Is this a current diagnosis for this admission?: Yes (10) Diarrhea Qualifiers: Diarrhea type: unspecified type Qualified Code(s): R19.7 - Diarrhea , unspecified Is this a current diagnosis for this admission?: No - Time Time Spent with patient: 25-34 minutes Medications reviewed and adjusted accordingly: Yes Anticipated discharge: Home with Homehealth Within: Other - Inpatient Certification Medical Necessity: Need Close Monitoring Due to Risk of Patient Decompensation, Need For IV Fluids, Need For Continuous Telemetry Monitoring, Need for Nebulizer Therapy and Monitoring of Response, Need for IV Antibiotics, Risk of Complication if Not Cared For in Hospital Post Hospital Care: D/C Interpreter Deaf 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
[2016-06-02] MEDS: GABAPENTIN 100 MG CAPSULE PO SCH (18:47)
[2016-06-02] MEDS: IPRATROPIUM/ALBUTEROL 0.5-2.5 MG/3 ML AMPUL NEB PRN (20:24)
[2016-06-02] MEDS: ROFLUMILAST 500 MCG TABLET PO SCH (21:22)
[2016-06-02] MEDS: PREGABALIN 50 MG CAPSULE PO SCH (21:23)
[2016-06-02] MEDS: OXYCODONE-ACETAMINOPHEN 5-325 MG TABLET PO PRN (21:27)
[2016-06-02] MEDS: NORMAL SALINE 1000 ML 1,000 ML IV PRN (21:27)
[2016-06-03] MEDS: OXYCODONE HCL IR 5 MG TABLET PO PRN ×2 (02:00→20:16)
[2016-06-03] MEDS: OXYCODONE-ACETAMINOPHEN 5-325 MG TABLET PO PRN (06:42)
[2016-06-03] MEDS: IPRATROPIUM/ALBUTEROL 0.5-2.5 MG/3 ML AMPUL NEB PRN ×2 (08:14→19:59)
[2016-06-03] MEDS: BUDESONIDE NEB 0.5 MG/2 ML AMPUL NEB SCH ×2 (08:14→19:59)
[2016-06-03] MEDS: DOCUSATE SODIUM 100 MG CAPSULE PO SCH (10:31)
[2016-06-03] MEDS: MONTELUKAST SODIUM 10 MG TABLET PO SCH (10:32)
[2016-06-03] MEDS: ACETAZOLAMIDE 250 MG TABLET PO SCH ×2 (10:32→20:16)
[2016-06-03] MEDS: BUSPIRONE HCL 10 MG TABLET PO SCH ×2 (10:32→17:39)
[2016-06-03] MEDS: ROPINIROLE HCL 1 MG TABLET PO SCH ×3 (10:32→20:14)
[2016-06-03] MEDS: ASPIRIN 81 MG TABLET, CHEWABLE PO SCH (10:32)
[2016-06-03] MEDS: APIXABAN 2.5 MG TABLET PO SCH ×2 (10:32→20:15)
[2016-06-03] MEDS ORDERED: ALPRAZOLAM 0.25 MG TABLET PO ONE (11:30)
[2016-06-03] MEDS: GABAPENTIN 100 MG CAPSULE PO SCH (17:38)
[2016-06-03] MEDS: NORMAL SALINE 1000 ML 1,000 ML IV PRN (17:45)
--- NOTE | 2016-06-03 19:47 | PDOC PROGRESS REPORT ---
Subjective Progress Note for:: 06/03/16 Subjective:: There was episode of acute anxiety attack earlier today necessitating administration of Alprazolam with improvement. Patient used to be on Clonazepam prior to admission. Breathing is improving. She has been off IV Solu Medrol since last clinical evaluation but remain on Budesonide nebulizer therapy. She denied any chest pain. No nausea or vomiting. Appetite and p.o intake are fairly satisfactory. No fever or chills. Physical Exam Vital Signs: Temp Pulse Resp BP Pulse Ox 97.9 F 72 16 121/64 99 06/03/16 16:13 06/03/16 16:13 06/03/16 16:13 06/03/16 16:13 06/03/16 16:13 Intake & Output 06/02/16 06/03/16 06/04/16 06:59 06:59 06:59 Intake Total 2539 1575 500 Output Total 2200 1150 1100 Balance 339 425 -600 Physical Exam: General appearance: PRESENT: no acute distress, cooperative, mild distress, thin Head exam: PRESENT: atraumatic, normocephalic Eye exam: PRESENT: conjunctiva pink, EOMI, PERRLA. ABSENT: scleral icterus Respiratory exam: PRESENT: No crackles, decreased breath sounds, less end expiratory rhonchi Cardiovascular exam: PRESENT: RRR. ABSENT: diastolic murmur, rubs, systolic murmur GI/Abdominal exam: PRESENT: normal bowel sounds, soft. ABSENT: distended, guarding, mass, organomegaly, rebound, tenderness Extremities exam: PRESENT: full ROM Musculoskeletal exam: PRESENT: deformity - related to joint involvement with arthritis Neurological exam: PRESENT: alert, awake, oriented to person, oriented to place , oriented to time, oriented to situation, CN II-XII grossly intact. ABSENT: motor sensory deficit Psychiatric exam: PRESENT: appropriate affect, normal mood. ABSENT: homicidal ideation, suicidal ideation Skin exam: PRESENT: dry, intact, warm. ABSENT: cyanosis, rash Results Laboratory Results: 06/02/16 05:45 06/01/16 05:15 Impressions: Chest X-Ray 05/29/16 00:00 IMPRESSION: Slight improved aeration of the lung bases. COPD. Assessment & Plan - Diagnosis (1) Mixed anxiety and depressive disorder Is this a current diagnosis for this admission?: YesPlan: See attending physician orders. I will start her on low dose short acting benzodiazepine Alprazolam 0.25mg p.o bid prn for acute anxiety management. (2) Acute bronchitis with COPD Is this a current diagnosis for this admission?: YesPlan: Continue on current bronchodilator therapy. She completed 7 days of Levofloxacin coverage today. (3) COPD (chronic obstructive pulmonary disease) Qualifiers: COPD type: COPD with acute exacerbation Qualified Code(s): J44.1 - Chronic obstructive pulmonary disease with (acute) exacerbation Is this a current diagnosis for this admission?: YesPlan: See attending physician orders. (4) Chronic respiratory failure with hypoxia and hypercapnia Is this a current diagnosis for this admission?: YesPlan: Continue current medication management. See attending physician orders. (5) H/O cardiac pacemaker Is this a current diagnosis for this admission?: Yes (6) Pulmonary embolism Qualifiers: Pulmonary embolism type: other Chronicity: chronic Acute cor pulmonale presence: without acute cor pulmonale Qualified Code(s): I27.82 - Chronic pulmonary embolism Is this a current diagnosis for this admission?: Yes (7) HLD (hyperlipidemia) Qualifiers: Hyperlipidemia type: pure hypercholesterolemia Qualified Code(s): E78.00 - Pure hypercholesterolemia, unspecified; E78.0 - Pure hypercholesterolemia Is this a current diagnosis for this admission?: Yes (8) HTN (hypertension) Qualifiers: Hypertension type: essential hypertension Qualified Code(s): I10 - Essential (primary) hypertension Is this a current diagnosis for this admission?: Yes (9) Awslj-Cqvvysknp-Pailu syndrome Is this a current diagnosis for this admission?: Yes (10) Diarrhea Qualifiers: Diarrhea type: unspecified type Qualified Code(s): R19.7 - Diarrhea , unspecified Is this a current diagnosis for this admission?: No - Time Time Spent with patient: 25-34 minutes Medications reviewed and adjusted accordingly: Yes Anticipated discharge: Home with Homehealth Within: within 24 hours - Inpatient Certification Medical Necessity: Need For IV Fluids, Need For Continuous Telemetry Monitoring , Need for Nebulizer Therapy and Monitoring of Response, Risk of Complication if Not Cared For in Hospital - Plan Summary Plan Summary: Maintain on current medication management. I discussed possible discharge home tomorrow with [employer] services.
[2016-06-03] MEDS: PREGABALIN 50 MG CAPSULE PO SCH (20:14)
[2016-06-03] MEDS: ROFLUMILAST 500 MCG TABLET PO SCH (20:14)
[2016-06-03] MEDS: ALPRAZOLAM 0.25 MG TABLET PO PRN (20:14)
[2016-06-04] MEDS: OXYCODONE HCL IR 5 MG TABLET PO PRN (02:00)
[2016-06-04] MEDS: OXYCODONE-ACETAMINOPHEN 5-325 MG TABLET PO PRN (07:30)
[2016-06-04] MEDS: BUDESONIDE NEB 0.5 MG/2 ML AMPUL NEB SCH (07:55)
[2016-06-04] MEDS: IPRATROPIUM/ALBUTEROL 0.5-2.5 MG/3 ML AMPUL NEB PRN (07:55)
[2016-06-04] MEDS: ACETAZOLAMIDE 250 MG TABLET PO SCH (10:55)
[2016-06-04] MEDS: ASPIRIN 81 MG TABLET, CHEWABLE PO SCH (10:55)
[2016-06-04] MEDS: MONTELUKAST SODIUM 10 MG TABLET PO SCH (10:55)
[2016-06-04] MEDS: BUSPIRONE HCL 10 MG TABLET PO SCH ×2 (10:56→17:18)
[2016-06-04] MEDS: APIXABAN 2.5 MG TABLET PO SCH (10:56)
[2016-06-04] MEDS: ROPINIROLE HCL 1 MG TABLET PO SCH ×3 (10:56→17:18)
[2016-06-04] MEDS: DOCUSATE SODIUM 100 MG CAPSULE PO SCH (10:59)
[2016-06-04] MEDS: NORMAL SALINE 1000 ML 1,000 ML IV PRN (13:27)
[2016-06-04] MEDS: ALPRAZOLAM 0.25 MG TABLET PO PRN (15:44)
[2016-06-04 16:10] VITALS: BP 144/72
--- NOTE | 2016-06-04 16:14 | PDOC DISCHARGE SUMMARY ---
General - Admit/Disc Date/PCP Admission Date/Primary Care Provider: 05/24/16 08:34 SARITA ANNA Discharge Date: 06/04/16 - Discharge Diagnosis (1) Mixed anxiety and depressive disorder Is this a current diagnosis for this admission?: Yes (2) Acute bronchitis with COPD Is this a current diagnosis for this admission?: Yes (3) COPD (chronic obstructive pulmonary disease) Is this a current diagnosis for this admission?: Yes (4) Chronic respiratory failure with hypoxia and hypercapnia Is this a current diagnosis for this admission?: Yes (5) H/O cardiac pacemaker Is this a current diagnosis for this admission?: Yes (6) Pulmonary embolism Is this a current diagnosis for this admission?: Yes (7) HLD (hyperlipidemia) Is this a current diagnosis for this admission?: Yes (8) HTN (hypertension) Is this a current diagnosis for this admission?: Yes (9) Cflvv-Ozbftgsgc-Zkwbu syndrome Is this a current diagnosis for this admission?: Yes (10) Diarrhea Is this a current diagnosis for this admission?: No - Additional Information Discharge Diet: Regular Discharge Activity: Activity As Tolerated, Balance Activity w/Rest, Energy Conservation Home Medications: Acetazolamide [Diamox 250 mg Tab] 250 mg PO Q12 05/24/16 Albuterol Sulfate [Albuterol Sulfate 2.5mg/3 mL] 2.5 ml NEB TIDP PRN 05/24/16 Apixaban [Eliquis] 2.5 mg PO Q12 05/24/16 Buspirone HCl [Buspar 15 mg Tablet] 7.5 mg PO BID 05/24/16 Citalopram Hydrobromide [Celexa 40 mg Tablet] 40 mg PO DAILY 05/24/16 Docusate Sodium [Colace 100 mg Capsule] 100 mg PO DAILY 05/24/16 Fluticasone/Salmeterol [Advair 250-50 Diskus 14 Dose/Diskus] 1 puff IH BID 05/24 Gabapentin [Neurontin 100 mg Capsule] 200 mg PO QPM 05/24/16 Montelukast Sodium [Singulair 10 mg Tablet] 10 g PO DAILY 05/24/16 Oxycodone HCl/Acetaminophen [Oxycodon-Acetaminophen 7.5-325] 1 tab PO TID Pregabalin [Lyrica] 50 mg PO DAILY 05/24/16 Promethazine HCl [Phenergan 25 mg Tablet] 25 mg PO Q6HP PRN 05/24/16 Roflumilast [Daliresp 500 mcg Tablet] 500 mcg PO DAILY 05/24/16 Ropinirole HCl 1 mg PO TID 05/24/16 Tiotropium [place] [Spiriva Handihaler 5 Cap/Kit (18 Mcg/Cap)] 2 puff IH BID Zolpidem Tartrate [Ambien 5 mg Tablet] 5 mg PO HSP PRN 05/24/16 Alprazolam [Xanax 0.25 mg Tablet] 0.25 mg PO DAILYP PRN #30 tablet 06/04/16 Prednisone 5 mg PO ASDIR PRN #22 tablet 06/04/16 History of Present Illness History of Present Illness: SUSAN BINGHAM is a 75 year old female known to my practice who presented to ED with worsening difficulty with breathing. Patient denied any associated chest pain or palpitation. She reported associated coughing with sputum production, chills but no definite fever. She was seen in the office 2 days prior to presentation at her baseline end stage COPD on supplemental oxygen at 2L/min. She demonstrated hypoxemia at 85% on 3L/min. No nausea or vomiting but had episode of fecal incontinence with diarrhea prior to her arrival at the ED. There is history of Pulmonary embolism as well as Xymc-Fjjflfdwx-Snjga syndrome and associated tachycardia. She is schedule for cardiology follow up at [facility] in [place], [place] for possible replacement of her pacemaker or addition of rhythm control medication. She is currently on Eliquis therapy for her pulmonary embolism management. Hospital Course Hospital Course: Patient was admitted for exacerbated COPD with acute on chronic respiratory failure with hypercapnia and hypoxemia. She did respond bronchodilator and IV solu medrol therapy. She subsequently decompensated without identifiable cause over a period of 48-72 hours. She was seen in consultation by Dr Harry Rosen , tipping machine operator, and Dr. Gomez, cosmetic counselor with appropriate adjustment in her management. She demonstrated episodes of anxiety attack during this hospitalization despite multiple mood stabilizing medication onboard. In view of her comorbidities and advance age sh was taken off long acting Clonazepam and stated on Alprazolam on prn basis t 0.25 mg with satisfactory outcome. She will be discharge home today on continuous supplemental oxygen and [employer]IST services. She will follow up in the office as instructed upon discharge. Physical Exam Vital Signs: Temp Pulse Resp BP Pulse Ox 98.0 F 82 24 H 124/66 98 06/04/16 11:07 06/04/16 14:00 06/04/16 11:07 06/04/16 11:07 06/04/16 11:07 Intake & Output 06/03/16 06/04/16 06/05/16 06:59 06:59 06:59 Intake Total 1575 1652 580 Output Total 1150 1100 600 Balance 425 552 -20 Weight 44.1 kg Physical Exam: General appearance: PRESENT: no acute distress, cooperative, mild distress, thin Head exam: PRESENT: atraumatic, normocephalic Eye exam: PRESENT: conjunctiva pink, EOMI, PERRLA. ABSENT: scleral icterus Respiratory exam: PRESENT: No crackles, decreased breath sounds, less end expiratory rhonchi Cardiovascular exam: PRESENT: RRR. ABSENT: diastolic murmur, rubs, systolic murmur GI/Abdominal exam: PRESENT: normal bowel sounds, soft. ABSENT: distended, guarding, mass, organomegaly, rebound, tenderness Extremities exam: PRESENT: full ROM Musculoskeletal exam: PRESENT: deformity - related to joint involvement with arthritis Neurological exam: PRESENT: alert, awake, oriented to person, oriented to place , oriented to time, oriented to situation, CN II-XII grossly intact. ABSENT: motor sensory deficit Psychiatric exam: PRESENT: appropriate affect, normal mood. ABSENT: homicidal ideation, suicidal ideation Skin exam: PRESENT: dry, intact, warm. ABSENT: cyanosis, rash Results Laboratory Results: 06/02/16 05:45 06/01/16 05:15 Impressions: Chest X-Ray 05/29/16 00:00 IMPRESSION: Slight improved aeration of the lung bases. COPD. Qualifiers PATEINT BEING DISCHARGED WITH ANY OF THE FOLLOWING DIAGNOSIS?: No Plan Discharge Plan: D/C home today with post hospitalization office follow up as instructed upon discharge. Time Spent: Less than 30 Minutes
[2016-06-04] MEDS: GABAPENTIN 100 MG CAPSULE PO SCH (17:18)
--- NOTE | 2016-06-06 15:54 | PDOC CONSULTATION ---
Consultation Consult Date: 05/29/16 Attending physician:: DANISH DAWN Consult reason:: dyspnea History of Present Illness Admission Date/PCP: 05/24/16 08:34 SARITAEVA CASTILLO History of Present Illness: SUSAN BINGHAM is a 75 year old female who presented to ED with worsening difficulty with breathing. Patient denied any associated chest pain or palpitation. She reported associated coughing with sputum production, chills but no definite fever. She was seen in PCP office 2 days prior to presentation at her baseline end stage COPD on supplemental oxygen at 2L/min. She demonstrated hypoxemia at 85% on 3L/min. No nausea or vomiting . There is history of Pulmonary embolism as well as Nwsx-Pxgwqphbn-Fjasx syndrome and associated tachycardia. She is schedule for cardiology follow up at [facility] in [place], [place] for possible replacement of her pacemaker or addition of rhythm control medication. She is currently on Eliquis therapy for her pulmonary embolism management. Past Medical History Cardiac Medical History: Reports: Hyperlipidema, Hypertension, Pulmonary Embolism, Other - HX WPW Pulmonary Medical History: Reports: Asthma, Bronchitis, Chronic Obstructive Pulmonary Disease (COPD), Pneumonia, Respiratory Failure, Sleep Apnea GI Medical History: Reports: Diverticulitis, Gastroesophageal Reflux Disease Musculoskeltal Medical History: Reports: Arthritis Psychiatric Medical History: Reports: Depression Past Surgical History Past Surgical History: Reports: Colostomy - with reversal, 6 years ago, Hysterectomy, Pacemaker Social History Information Source: [facility] Records Smoking Status: Current Some Day Smoker Passive smoke exposure as: Both Frequency of Alcohol Use: None Hx Recreational Drug Use: No Drugs: None Hx Prescription Drug Abuse: No Have you had any respiratory illnesses as a child?: No Have you been exposed to any sick contacts recently?: No Have you travelled outside of [place] in the past 12 months?: No Family History Family History: Reviewed & Not Pertinent, CAD - This is in not immediate family members., DM, Hyperlipidemia, Hypertension Parental Family History Reviewed: Yes Children Family History Reviewed: Yes Sibling(s) Family History Reviewed.: Yes Medication/Allergy Home Medications: Acetazolamide [Diamox 250 mg Tab] 250 mg PO Q12 05/24/16 Albuterol Sulfate [Albuterol Sulfate 2.5mg/3 mL] 2.5 ml NEB TIDP PRN 05/24/16 Apixaban [Eliquis] 2.5 mg PO Q12 05/24/16 Buspirone HCl [Buspar 15 mg Tablet] 7.5 mg PO BID 05/24/16 Citalopram Hydrobromide [Celexa 40 mg Tablet] 40 mg PO DAILY 05/24/16 Docusate Sodium [Colace 100 mg Capsule] 100 mg PO DAILY 05/24/16 Fluticasone/Salmeterol [Advair 250-50 Diskus 14 Dose/Diskus] 1 puff IH BID 05/24 Gabapentin [Neurontin 100 mg Capsule] 200 mg PO QPM 05/24/16 Montelukast Sodium [Singulair 10 mg Tablet] 10 g PO DAILY 05/24/16 Oxycodone HCl/Acetaminophen [Oxycodon-Acetaminophen 7.5-325] 1 tab PO TID Pregabalin [Lyrica] 50 mg PO DAILY 05/24/16 Promethazine HCl [Phenergan 25 mg Tablet] 25 mg PO Q6HP PRN 05/24/16 Roflumilast [Daliresp 500 mcg Tablet] 500 mcg PO DAILY 05/24/16 Ropinirole HCl 1 mg PO TID 05/24/16 Tiotropium [place] [Spiriva Handihaler 5 Cap/Kit (18 Mcg/Cap)] 2 puff IH BID Zolpidem Tartrate [Ambien 5 mg Tablet] 5 mg PO HSP PRN 05/24/16 Alprazolam [Xanax 0.25 mg Tablet] 0.25 mg PO DAILYP PRN #30 tablet 06/04/16 Prednisone 5 mg PO ASDIR PRN #22 tablet 06/04/16 Allergies/Adverse Reactions: codeine [Codeine] Allergy (Unknown, Verified 11/04/14 17:36) erythromycin base [Erythromycin Base] Allergy (Unknown, Verified 11/04/14 17:36) Physical Exam Vital Signs: Temp Pulse Resp BP Pulse Ox 97.8 F 106 H 24 H 143/56 H 96 05/29/16 12:00 05/29/16 12:00 05/29/16 12:00 05/29/16 12:00 05/29/16 12:00 Intake & Output 05/28/16 05/29/16 05/30/16 06:59 06:59 06:59 Intake Total 2492 1592 Output Total 1250 575 Balance 1242 1017 Weight 42 kg 42 kg General appearance: PRESENT: cooperative, disheveled, obese Head exam: PRESENT: normocephalic Eye exam: PRESENT: conjunctiva pale, EOMI Mouth exam: PRESENT: moist, neck supple Teeth exam: PRESENT: poor dentation Neck exam: ABSENT: carotid bruit, JVD, lymphadenopathy, thyromegaly Respiratory exam: PRESENT: decreased breath sounds, prolonged expiratory phas, rhonchi, wheezes Cardiovascular exam: PRESENT: RRR, +S1, +S2 Pulses: PRESENT: normal radial pulses GI/Abdominal exam: PRESENT: normal bowel sounds, soft. ABSENT: distended, guarding, mass, organolmegaly, rebound, tenderness Rectal exam: PRESENT: deferred Extremities exam: PRESENT: +1 edema Neurological exam: PRESENT: alert, awake Skin exam: PRESENT: dry, warm Results Laboratory Results: 05/28/16 06:15 05/29/16 10:45 05/28/16 05/29/16 16:55 10:45 Carbonic Acid 1.69 H HCO3/H2CO3 Ratio 16:1 ABG pH 7.31 L ABG pCO2 56.0 H ABG pO2 108.3 H ABG HCO3 27.5 H ABG O2 Saturation 97.4 ABG Base Excess 0.4 FiO2 2.5L Sodium 145.7 H Potassium 4.1 Chloride 110 H Carbon Dioxide 25 Anion Gap 11 BUN 24 H Creatinine 0.74 Est GFR ( Amer) > 60 Est GFR (Non-Af Amer) > 60 Glucose 193 H Calcium 9.3 Magnesium 2.3 Impressions: Chest X-Ray 05/29/16 00:00 IMPRESSION: Slight improved aeration of the lung bases. COPD. Assessment & Plan - Diagnosis (1) Hypercapnic respiratory failure Qualifiers: Chronicity: acute on chronic Qualified Code(s): J96.22 - Acute and chronic respiratory failure with hypercapnia Is this a current diagnosis for this admission?: YesPlan: NIPPV at home silvano at night (2) COPD (chronic obstructive pulmonary disease) Qualifiers: COPD type: COPD with acute exacerbation Qualified Code(s): J44.1 - Chronic obstructive pulmonary disease with (acute) exacerbation Is this a current diagnosis for this admission?: YesPlan: bronchodialators as you have initiated
--- NOTE | 2016-06-06 15:56 | PDOC PROGRESS REPORT ---
Subjective Progress Note for:: 05/31/16 Subjective:: continued SOB and cough Physical Exam Vital Signs: Temp Pulse Resp BP Pulse Ox 97.4 F 60 14 128/74 H 100 06/02/16 08:00 06/02/16 08:00 06/02/16 08:00 06/02/16 08:00 06/02/16 08:00 Intake & Output 06/01/16 06/02/16 06/03/16 06:59 06:59 06:59 Intake Total 1500 2539 Output Total 1300 2200 Balance 200 339 General appearance: PRESENT: cooperative, disheveled, mild distress, obese Head exam: PRESENT: atraumatic, normocephalic Eye exam: PRESENT: conjunctiva pink, EOMI Mouth exam: PRESENT: moist, neck supple Teeth exam: PRESENT: poor dentation Neck exam: ABSENT: carotid bruit, JVD, lymphadenopathy, thyromegaly Respiratory exam: PRESENT: decreased breath sounds, prolonged expiratory phas, rales, rhonchi, symmetrical Cardiovascular exam: PRESENT: RRR, +S1, +S2 Pulses: PRESENT: normal radial pulses GI/Abdominal exam: PRESENT: normal bowel sounds, soft. ABSENT: distended, guarding, mass, organolmegaly, rebound, tenderness Rectal exam: PRESENT: deferred Extremities exam: PRESENT: +1 edema Neurological exam: PRESENT: alert, awake Skin exam: PRESENT: dry, warm Results Laboratory Results: 06/02/16 05:45 06/01/16 05:15 06/02/16 05:45 WBC 14.3 H RBC 3.90 Hgb 10.8 L Hct 34.9 L MCV 90 MCH 27.8 MCHC 31.1 L RDW 16.3 H Plt Count 512 H Seg Neutrophils % Not Reportable Lymphocytes % Not Reportable Monocytes % Not Reportable Eosinophils % Not Reportable Basophils % Not Reportable Absolute Neutrophils Not Reportable Absolute Lymphocytes Not Reportable Absolute Monocytes Not Reportable Absolute Eosinophils Not Reportable Absolute Basophils Not Reportable Impressions: Chest X-Ray 05/29/16 00:00 IMPRESSION: Slight improved aeration of the lung bases. COPD. Assessment & Plan - Diagnosis (1) Hypercapnic respiratory failure Qualifiers: Chronicity: acute on chronic Qualified Code(s): J96.22 - Acute and chronic respiratory failure with hypercapnia Is this a current diagnosis for this admission?: Yes (2) COPD (chronic obstructive pulmonary disease) Qualifiers: COPD type: COPD with acute exacerbation Qualified Code(s): J44.1 - Chronic obstructive pulmonary disease with (acute) exacerbation Is this a current diagnosis for this admission?: Yes
--- NOTE | 2016-06-06 15:59 | PDOC PROGRESS REPORT ---
Subjective Progress Note for:: 06/01/16 Subjective:: a little better Physical Exam Vital Signs: Temp Pulse Resp BP Pulse Ox 97.4 F 60 14 128/74 H 100 06/02/16 08:00 06/02/16 08:00 06/02/16 08:00 06/02/16 08:00 06/02/16 08:00 Intake & Output 06/01/16 06/02/16 06/03/16 06:59 06:59 06:59 Intake Total 1500 2539 Output Total 1300 2200 Balance 200 339 General appearance: PRESENT: cooperative, disheveled, obese Head exam: PRESENT: atraumatic, normocephalic Eye exam: PRESENT: conjunctiva pale, EOMI Mouth exam: PRESENT: moist, neck supple Teeth exam: PRESENT: poor dentation Neck exam: ABSENT: carotid bruit, JVD, lymphadenopathy, thyromegaly Respiratory exam: PRESENT: decreased breath sounds, prolonged expiratory phas, rales, rhonchi, symmetrical Cardiovascular exam: PRESENT: RRR, +S1, +S2 Pulses: PRESENT: normal radial pulses GI/Abdominal exam: PRESENT: normal bowel sounds, soft. ABSENT: distended, guarding, mass, organolmegaly, rebound, tenderness Rectal exam: PRESENT: deferred Extremities exam: PRESENT: +1 edema Neurological exam: PRESENT: awake Skin exam: PRESENT: dry, warm Results Laboratory Results: 06/02/16 05:45 06/01/16 05:15 06/02/16 05:45 WBC 14.3 H RBC 3.90 Hgb 10.8 L Hct 34.9 L MCV 90 MCH 27.8 MCHC 31.1 L RDW 16.3 H Plt Count 512 H Seg Neutrophils % Not Reportable Lymphocytes % Not Reportable Monocytes % Not Reportable Eosinophils % Not Reportable Basophils % Not Reportable Absolute Neutrophils Not Reportable Absolute Lymphocytes Not Reportable Absolute Monocytes Not Reportable Absolute Eosinophils Not Reportable Absolute Basophils Not Reportable Impressions: Chest X-Ray 05/29/16 00:00 IMPRESSION: Slight improved aeration of the lung bases. COPD. Assessment & Plan - Diagnosis (1) Hypercapnic respiratory failure Qualifiers: Chronicity: acute on chronic Qualified Code(s): J96.22 - Acute and chronic respiratory failure with hypercapnia Is this a current diagnosis for this admission?: Yes (2) COPD (chronic obstructive pulmonary disease) Qualifiers: COPD type: COPD with acute exacerbation Qualified Code(s): J44.1 - Chronic obstructive pulmonary disease with (acute) exacerbation Is this a current diagnosis for this admission?: Yes
--- NOTE | 2016-06-06 16:02 | PDOC PROGRESS REPORT ---
Subjective Progress Note for:: 06/02/16 Subjective:: improved over last 24 hrs Physical Exam Vital Signs: Temp Pulse Resp BP Pulse Ox 97.4 F 60 14 128/74 H 100 06/02/16 08:00 06/02/16 08:00 06/02/16 08:00 06/02/16 08:00 06/02/16 08:00 Intake & Output 06/01/16 06/02/16 06/03/16 06:59 06:59 06:59 Intake Total 1500 2539 Output Total 1300 2200 Balance 200 339 General appearance: PRESENT: no acute distress, cooperative, disheveled, obese Head exam: PRESENT: atraumatic, normocephalic Eye exam: PRESENT: conjunctiva pale, EOMI Mouth exam: PRESENT: moist, neck supple Teeth exam: PRESENT: poor dentation Neck exam: ABSENT: carotid bruit, JVD, lymphadenopathy, thyromegaly Respiratory exam: PRESENT: decreased breath sounds, prolonged expiratory phas, rhonchi, symmetrical, wheezes, other - air movement Cardiovascular exam: PRESENT: RRR, +S1, +S2 Pulses: PRESENT: normal radial pulses GI/Abdominal exam: PRESENT: normal bowel sounds, soft. ABSENT: distended, guarding, mass, organolmegaly, rebound, tenderness Rectal exam: PRESENT: deferred Extremities exam: PRESENT: +1 edema Neurological exam: PRESENT: awake Skin exam: PRESENT: dry Results Laboratory Results: 06/02/16 05:45 06/01/16 05:15 06/02/16 05:45 WBC 14.3 H RBC 3.90 Hgb 10.8 L Hct 34.9 L MCV 90 MCH 27.8 MCHC 31.1 L RDW 16.3 H Plt Count 512 H Seg Neutrophils % Not Reportable Lymphocytes % Not Reportable Monocytes % Not Reportable Eosinophils % Not Reportable Basophils % Not Reportable Absolute Neutrophils Not Reportable Absolute Lymphocytes Not Reportable Absolute Monocytes Not Reportable Absolute Eosinophils Not Reportable Absolute Basophils Not Reportable Impressions: Chest X-Ray 05/29/16 00:00 IMPRESSION: Slight improved aeration of the lung bases. COPD. Assessment & Plan - Diagnosis (1) Hypercapnic respiratory failure Qualifiers: Chronicity: acute on chronic Qualified Code(s): J96.22 - Acute and chronic respiratory failure with hypercapnia Is this a current diagnosis for this admission?: Yes (2) COPD (chronic obstructive pulmonary disease) Qualifiers: COPD type: COPD with acute exacerbation Qualified Code(s): J44.1 - Chronic obstructive pulmonary disease with (acute) exacerbation Is this a current diagnosis for this admission?: Yes
== END 2016-06-04 17:58 | disposition home health service (06) | DRG 190 ==
LOC: ER 19:01 → EH 23:09 → UNDOADMIN 23:09 → EH 05-24 03:45 → 4S 05-24 03:45
PROVIDERS: ADMIT Internal Medicine Geriatric Medicine; ATTEND Internal Medicine Geriatric Medicine
PROC: 3E0F73Z Introduction of Anti-inflammatory into Respiratory Tract, Via Natural or Artificial Opening (ICD-10-PCS; principal; 2016-05-24)
DX: J44.1 Chronic obstructive pulmonary disease with (acute) exacerbation (principal); J96.21 Acute and chronic respiratory failure with hypoxia; J96.22 Acute and chronic respiratory failure with hypercapnia; I27.82 Chronic pulmonary embolism; F41.8 Other specified anxiety disorders; J44.0 Chronic obstructive pulmonary disease with (acute) lower respiratory infection; J20.9 Acute bronchitis, unspecified; I10 Essential (primary) hypertension; E78.00 Pure hypercholesterolemia, unspecified; I45.6 Pre-excitation syndrome; K21.9 Gastro-esophageal reflux disease without esophagitis; M19.90 Unspecified osteoarthritis, unspecified site; I25.10 Atherosclerotic heart disease of native coronary artery without angina pectoris; F17.210 Nicotine dependence, cigarettes, uncomplicated; G89.4 Chronic pain syndrome; I25.2 Old myocardial infarction; Z95.0 Presence of cardiac pacemaker; Z90.710 Acquired absence of both cervix and uterus; Z86.14 Personal history of Methicillin resistant Staphylococcus aureus infection; Z99.81 Dependence on supplemental oxygen; Z88.6 Allergy status to analgesic agent; Z88.3 Allergy status to other anti-infective agents; Z83.3 Family history of diabetes mellitus; Z82.49 Family history of ischemic heart disease and other diseases of the circulatory system
CPT/HCPCS: 36415; 36600; 71010; 80048; 80053; 82803; 83605; 83735; 83880; 84484; 85025; 87040; 87493; 93005; 93010; 94640; 94667; 94668; 96365; 96367; 96375; 99291; G8978-GP; G8979-GP; G8996-GN; G8997-GN; G8998-GN; J0692; J0696; J1642; J2543; J2930; J3475; J3490; J7030; J7620; Q0167

== ENCOUNTER 2016-08-19 19:08 | Inpatient (IN) | payer MEDICARE, OTHER ==
--- NOTE | 2016-08-19 19:39 | ER Document Report ---
ED Fall - General Mode of Arrival: Medic Information source: Patient, Emergency Med Personnel TRAVEL OUTSIDE OF THE [place] IN LAST 30 DAYS: No - HPI Occurred: Just prior to arrival Where: Home Context: Tripped, Fell from standing Associated symptoms: None <ANGEL LUIS OMISE - Last Filed: 08/19/16 20:29> <AGUSTINRADHA - Last Filed: 08/19/16 23:17> - General Chief Complaint: Fall Injury Stated Complaint: FALL/HIP PAIN Time Seen by Provider: 08/19/16 19:17 Notes: Patient is a 75-year-old female presenting to the emergency department via EMS after a fall. Patient states that she tripped and fell at home. Patient fell on her right side and hit the right side of her head and right hip. Patient complains of pain to her right hip and headache. Patient has a laceration just above her right eyebrow. Patient was given fentanyl via EMS. Patient previously had a left hip replacement on 11/04/[address] Robledo. Patient has a history of COPD, hypertension, hypercholesterolemia, a pacemaker, and bilateral PEs. Patient's PCP is Dr. Jackson. (ANGEL LUIS MOISE) - Related data Allergies/Adverse Reactions: codeine [Codeine] Allergy (Unknown, Verified 11/04/14 17:36) erythromycin base [Erythromycin Base] Allergy (Unknown, Verified 11/04/14 17:36) Past Medical History - General Information source: Patient - Social History Smoking Status: Former Smoker Chew tobacco use (# tins/day): No Frequency of alcohol use: None Drug Abuse: None Family History: CAD - This is in not immediate family members., DM, Hyperlipidemia, Hypertension - Past Medical History Cardiac Medical History: Reports: Hx Hypercholesterolemia, Hx Hypertension, Hx Pulmonary Embolism Pulmonary Medical History: Reports: Hx Asthma, Hx Bronchitis, Hx COPD, Hx Pneumonia, Hx Respiratory Failure, Hx Sleep Apnea Renal/ Medical History: Reports: Hx Kidney Stones - 20 year ago GI Medical History: Reports: Hx Diverticulitis, Hx Gastroesophageal Reflux Disease, Hx Ulcer Musculoskeltal Medical History: Reports Hx Arthritis Skin Medical History: Reports Hx MRSA Psychiatric Medical History: Reports: Hx Depression Past Surgical History: Reports: Hx Bowel Surgery - Old colostomy from a tear intestines resectioned, Hx Cardiac Surgery - pacemaker, Hx Colostomy - with reversal, 6 years ago, Hx Hysterectomy, Hx Orthopedic Surgery - left hip replacement 11/04/2014, Hx Pacemaker - Immunizations Immunizations up to date: Yes Hx Diphtheria, Pertussis, Tetanus Vaccination: Yes Hx Pneumococcal Vaccination: 06/04/11 <ANGEL LUIS MOISE - Last Filed: 08/19/16 20:29> Review of Systems - Review of Systems Constitutional: No symptoms reported EENT: No symptoms reported Cardiovascular: No symptoms reported Respiratory: No symptoms reported Gastrointestinal: No symptoms reported Genitourinary: No symptoms reported Female Genitourinary: No symptoms reported Musculoskeletal: See HPI Skin: See HPI Hematologic/Lymphatic: No symptoms reported Neurological/Psychological: No symptoms reported -: Yes All other systems reviewed and negative <ANGEL LUIS MOISE - Last Filed: 08/19/16 20:29> Physical Exam <ANGEL LUIS MOISE - Last Filed: 08/19/16 20:29> - Extremities General upper extremity: Other - There is a skin tear on the left ulnar forearm that was cleaned and dressed by the PCT. No: Normal inspection General lower extremity: Other - The right hip is quite tender and there is a bulging bony deformity palpated <RADHA VELEZ - Last Filed: 08/19/16 23:17> - Vital signs Vitals: Resp 27 H 08/19/16 19:14 - Notes Notes: GENERAL: Alert, interacts well. Mild distress. HEAD: Normocephalic. 4 cm transverse laceration to the right forehead just above the eyebrow. EYES: Appear normal. Pupils equal, round, and reactive to light. ENT: Moist mucus membranes, tongue midline. NECK: Full range of motion. Supple. Trachea midline. LUNGS: Some rhonchi consistent with history of COPD. No respiratory distress. HEART: Pacemaker with regular rate and rhythm. No murmurs, gallops, or rubs. ABDOMEN: Soft, non-tender. Non-distended. Normal bowel sounds. EXTREMITIES: Tenderness to palpation over the right hip. Right leg is shortened compared to left. No edema. Patient appears cachectic. NEUROLOGICAL: Alert and oriented x3. Normal speech. No focal neurological deficits. GSC 15. PSYCH: Normal affect, normal mood. SKIN: Warm, dry, normal turgor. (ANGEL LUIS MOISE) Course - Laboratory Result Diagrams: 08/19/16 19:50 08/19/16 19:50 <ANGEL LUIS MOISE - Last Filed: 08/19/16 20:29> - Laboratory Result Diagrams: 08/19/16 19:50 08/19/16 19:50 - Diagnostic Test Radiology reviewed: Image reviewed, Reports reviewed - CT of the head is unremarkable. X-ray shows COPD without infiltrate. Right hip shows complete intertrochanteric fracture. - EKG Interpretation by Me EKG shows normal: Sinus rhythm, [place], Intervals, QRS Complexes, ST-T Waves Rate: Normal - 98 Rhythm: NSR [place]/QRS: LAHB/LAFB Voltage: Consistant with LVH When compared to previous EKG there are: Changes noted - Compared to 425, this rhythm is not paced and there are T-wave changes in the anterior lateral leads - Consults Dr. Lange Time consulted: 21:05 Consulted provider: will see as inpatient Dr. Jackson Time consulted: 22:30 Consulted provider: will see as inpatient <RADHA VELEZ - Last Filed: 08/19/16 23:17> - Vital Signs Vital signs: Temp Pulse Resp BP Pulse Ox 98.4 F 108 H 14 118/69 96 08/19/16 19:17 08/19/16 19:17 08/19/16 22:01 08/19/16 22:00 08/19/16 22:01 - Laboratory Laboratory results interpreted by me: 08/19/16 08/19/16 19:50 19:50 WBC 22.4 H MCHC 30.9 L RDW 16.9 H Seg Neuts % (Manual) 88 H Band Neutrophils % 1 L Lymphocytes % (Manual) 5 L Abs Neuts (Manual) 19.9 H Carbon Dioxide 21 L Glucose 136 H AST 46 H Procedures - Laceration/Wound Repair Right Upper Face Time completed: 22:30 Wound length (cm): 4 Wound's Depth, Shape: Into muscle, Linear, Contused tissue Laceration pre-procedure: Sterile drapes applied, Shur-Clens applied Anesthetic type: Other - 0.5%lidocain w/ 1:200,000 epi Volume Anesthetic (mLs): 7 Wound explored: Clean, No foreign body removed Irrigated w/ Saline (mLs): 20 Wound Debrided: Minimal Wound Repaired With: Sutures Suture Size/Type: 5:0 Number of Sutures: 10 <RADHA VELEZ - Last Filed: 08/19/16 23:17> Discharge <ANGEL LUIS MOISE - Last Filed: 08/19/16 20:29> - Discharge Admitting Provider: Renetta Unit Admitted: Telemetry <RADHA VELEZ - Last Filed: 08/19/16 23:17> - Discharge Clinical Impression: Closed right hip fracture Qualifiers: Encounter type: initial encounter Qualified Code(s): S72.001A - Fracture of unspecified part of neck of right femur, initial encounter for closed fracture Forehead laceration Qualifiers: Encounter type: initial encounter Qualified Code(s): S01.81XA - Laceration without foreign body of other part of head, initial encounter Chronic obstructive pulmonary disease Qualifiers: COPD type: unspecified COPD Qualified Code(s): J44.9 - Chronic obstructive pulmonary disease, unspecified Condition: Stable Disposition: ADMITTED INPATIENT Scribe Attestation: 08/19/16 22:34 I personally performed the services described in the documentation, reviewed and edited the documentation which was dictated to the scribe in my presence, and it accurately records my words and actions. (RADHA VELEZ) Scribe Documentation - Scribe Written by Sathish:: Sathish Garcia, 08/09/2016 20:20 acting as scribe for :: Agustin <ANGEL LUIS MOISE - Last Filed: 08/19/16 20:29>
[2016-08-19 20:13] LABS: HEMATOCRIT 39.7 % (36.0-47.0); HEMOGLOBIN 12.3 g/dL (12.0-15.5); HGB HCT DIFFERENCE -2.8; MEAN CORPUSCULAR HEMOGLOBIN 27.8 pg (27.0-33.4); MEAN CORPUSCULAR HGB CONC 30.9 g/dL (32.0-36.0); MEAN CORPUSCULAR VOLUME 90 fl (80-97); RED BLOOD COUNT 4.41 10^6/uL (3.72-5.28); RED CELL DISTRIBUTION WIDTH 16.9 % (11.5-14.0); WHITE BLOOD COUNT 22.4 10^3/uL (4.0-10.5)
[2016-08-19 20:21] LABS: ALANINE AMINOTRANSFERASE 28 U/L (9-52); ALBUMIN 4.1 g/dL (3.5-5.0); ALKALINE PHOSPHATASE 90 U/L (38-126); ANION GAP 11 (5-19); ASPARTATE AMINO TRANSFERASE 46 U/L (14-36); BILIRUBIN,DIRECT 0.4 mg/dL (0.0-0.4); BILIRUBIN,TOTAL 0.5 mg/dL (0.2-1.3); BLOOD UREA NITROGEN 14 mg/dL (7-20); CALCIUM 9.6 mg/dL (8.4-10.2); CARBON DIOXIDE 21 mmol/L (22-30); CHLORIDE 107 mmol/L (98-107); CREATINE KINASE 122 U/L (30-135); CREATININE RESULT 0.92 mg/dL (0.52-1.25); GLUCOSE 136 mg/dL (75-110); MAGNESIUM 1.9 mg/dL (1.6-2.3); POTASSIUM 4.1 mmol/L (3.6-5.0); SODIUM 139.4 mmol/L (137-145); TOTAL PROTEIN 7.5 g/dL (6.3-8.2)
--- NOTE | 2016-08-19 20:21 | RADIOLOGY REPORT (SQ) ---
EXAM DESCRIPTION: CT HEAD WITHOUT COMPLETED DATE/TIME: 08/19/2016 8:13 pm REASON FOR STUDY: fall, hit head, on Eliquis COMPARISON: 01/13/2016. TECHNIQUE: Axial images acquired through the brain without intravenous contrast. Images reviewed wi th bone, brain and subdural windows. Images stored on PACS. All CT scanners at this facility use dose modulation, iterative reconstruction, and/or weight based d osing when appropriate to reduce radiation dose to as low as reasonably achievable (ALARA). [facility]: Dose Right [facility]: CareDose [facility]: Dose Right [facility]: Teradose 4D [facility]: Smart Ciapple RADIATION DOSE: Up-to-date CT equipment and radiation dose reduction techniques were employed. CTDIv ol: 64.6 mGy. DLP: 1034 mGy-cm. mGy. LIMITATIONS: None. FINDINGS: VENTRICLES: Normal size and contour. CEREBRUM: No masses. No hemorrhage. No midline shift. Normal grimaldo/white matter differentiation. N o evidence for acute infarction. CEREBELLUM: No masses. No hemorrhage. No alteration of density. No evidence for acute infarction. EXTRAAXIAL SPACES: No fluid collections. No masses. ORBITS AND GLOBE: No intra- or extraconal masses. Normal contour of globe without masses. CALVARIUM: No fracture. PARANASAL SINUSES: No fluid or mucosal thickening. SOFT TISSUES: No mass or hematoma. OTHER: No other significant finding. IMPRESSION: NORMAL BRAIN CT WITHOUT CONTRAST. TECHNICAL DOCUMENTATION: JOB ID: [id number] Quality ID # [id number]: Final reports with documentation of one or more dose reduction techniques (e.g., Au tomated exposure control, adjustment of the mA and/or kV according to patient size, use of iterative reconstruction technique) 2010 [employer]- All Rights Reserved
[2016-08-19 20:25] LABS: BAND NEUTROPHILS % (MANUAL) 1 % (3-5); BASOPHILS % (MANUAL) 0 % (0-2); EOSINOPHILS % (MANUAL) 0 % (0-6); LYMPHOCYTES % (MANUAL) 5 % (13-45); TOTAL CELLS COUNTED 100
[2016-08-19 20:27] LABS: ANISOCYTOSIS SLIGHT
[2016-08-19 20:33] LABS: TROPONIN I < 0.012 ng/mL
--- NOTE | 2016-08-19 20:43 | RADIOLOGY REPORT (SQ) ---
EXAM DESCRIPTION: CHEST SINGLE VIEW COMPLETED DATE/TIME: 08/19/2016 8:31 pm REASON FOR STUDY: hip fX COMPARISON: 05/29/2016. NUMBER OF VIEWS: One view. TECHNIQUE: Single frontal radiographic view of the chest acquired. LIMITATIONS: None. FINDINGS: LUNGS AND PLEURA: No opacities, masses or pneumothorax. No pleural effusion. Attenuated bl ood vessels and flattened radha-diaphragms. MEDIASTINUM AND HILAR STRUCTURES: No masses. Contour normal. HEART AND VASCULAR STRUCTURES: Heart normal in size. Normal vasculature. BONES: No acute findings. HARDWARE: Pacemaker. Vascular access port. OTHER: No other significant finding. IMPRESSION: COPD. NO ACUTE RADIOGRAPHIC FINDING IN THE CHEST. TECHNICAL DOCUMENTATION: JOB ID: [id number] [employer]- All Rights Reserved
[2016-08-19] MEDS ORDERED: LIDOCAINE 1%/EPINEPHRINE INJ 20 ML VIAL INJ ONE (20:44)
--- NOTE | 2016-08-19 20:44 | RADIOLOGY REPORT (SQ) ---
EXAM DESCRIPTION: HIP BILATERAL COMPLETED DATE/TIME: 08/19/2016 8:31 pm REASON FOR STUDY: PAIN COMPARISON: 03/04/2015. NUMBER OF VIEWS: Two views TECHNIQUE: AP pelvis and additional frog-leg view of both hips. LIMITATIONS: None. FINDINGS: MINERALIZATION: Normal. HIPS: Intertrochanteric fracture of the right hip with angulation. Old posttraumatic changes in the left hip with hardware. PELVIS AND SACRUM: No acute fracture or dislocation. No worrisome bone lesions. PUBIS AND ISCHIUM: No acute fracture. LOWER LUMBAR SPINE: No significant findings as visualized. SOFT TISSUES: No findings. OTHER: No other significant finding. IMPRESSION: ACUTE INTERTROCHANTERIC FRACTURE OF THE RIGHT HIP. OLD POSTTRAUMATIC AND POST SURGICAL CHANGES IN THE LEFT HIP. TECHNICAL DOCUMENTATION: JOB ID: [id number] [employer]- All Rights Reserved
[2016-08-19] MEDS ORDERED: LIDOCAINE 0.5%/EPINEPHRINE INJ 50 ML VIAL INJ ONE (20:56)
[2016-08-19] MEDS ORDERED: NORMAL SALINE 1000 ML 500 ML IV ONE (21:22)
[2016-08-19 22:15] LABS: APPEARANCE,URINE CLEAR; BILIRUBIN,URINE NEGATIVE (NEGATIVE); GLUCOSE, URINE NEGATIVE (NEGATIVE); KETONES,URINE NEGATIVE (NEGATIVE); LEUKOCYTE ESTERASE,URINE NEGATIVE (NEGATIVE); NITRITE,URINE NEGATIVE (NEGATIVE); PROTEIN,URINE NEGATIVE (NEGATIVE); URINE SPECIFIC GRAVITY 1.011; UROBILINOGEN,URINE NEGATIVE mg/dL (<2.0)
[2016-08-20] MEDS ORDERED: OXYCODONE-ACETAMINOPHEN 5-325 MG TABLET ONE (01:20)
[2016-08-20] MEDS: OXYCODONE-ACETAMINOPHEN 5-325 MG TABLET PO PRN ×5 (01:20→22:33)
[2016-08-20] MEDS ORDERED: NORMAL SALINE 1000 ML 1,000 ML IV PRN (01:34)
[2016-08-20] MEDS ORDERED: GLUCAGON,HUMAN RECOMB 1 MG INJ SUBCUT PRN (06:47)
[2016-08-20] MEDS ORDERED: DEXTROSE 40% GEL 15 GM TUBE PO PRN ×2 (06:47)
[2016-08-20] MEDS ORDERED: DEXTROSE 50%-WATER 25 GM/50 ML DISP.SYRIN IV PRN ×2 (06:47)
[2016-08-20] MEDS ORDERED: CEFAZOLIN 2 GM/D5W RTU 2 GM/50 ML RTUPB IV PRN (06:56)
--- NOTE | 2016-08-20 07:04 | PDOC CONSULTATION ---
Consultation Consult Date: 08/20/16 Consult reason:: Hip fracture History of Present Illness Admission Date/PCP: 08/20/16 01:46 SARITA CASTILLO History of Present Illness: SUSAN BINGHAM is a 75 year old female who sustained a left hip fracture approximately a year ago treated with an open reduction and internal fixation. The patient is done well in the intervening year until she fell again yesterday and was unable to weight-bear on the right side. Evaluation in the emergency room demonstrated a right intertrochanteric femur fracture. The patient is admitted to Dr. Castillo and orthopedics was consulted for fracture management. Past Medical History Cardiac Medical History: Reports: Hyperlipidema, Hypertension, Pulmonary Embolism Pulmonary Medical History: Reports: Asthma, Bronchitis, Chronic Obstructive Pulmonary Disease (COPD), Pneumonia, Respiratory Failure, Sleep Apnea GI Medical History: Reports: Diverticulitis, Gastroesophageal Reflux Disease Musculoskeltal Medical History: Reports: Arthritis Psychiatric Medical History: Reports: Depression Past Surgical History Past Surgical History: Reports: Colostomy - with reversal, 6 years ago, Hysterectomy, Orthopedic Surgery - left hip replacement 11/04/2014, Pacemaker Social History Information Source: Patient, [facility] Records Smoking Status: Former Smoker Frequency of Alcohol Use: None Hx Recreational Drug Use: No Drugs: None Hx Prescription Drug Abuse: No - Advance Directive Resuscitation Status: Full Code Family History Family History: CAD - This is in not immediate family members., DM, Hyperlipidemia, Hypertension Parental Family History Reviewed: No Children Family History Reviewed: No Sibling(s) Family History Reviewed.: No Medication/Allergy Home Medications: Acetazolamide [Diamox 250 mg Tab] 250 mg PO Q12 05/24/16 Albuterol Sulfate [Albuterol Sulfate 2.5mg/3 mL] 2.5 ml NEB TIDP PRN 05/24/16 Apixaban [Eliquis] 2.5 mg PO Q12 05/24/16 Buspirone HCl [Buspar 15 mg Tablet] 7.5 mg PO BID 05/24/16 Citalopram Hydrobromide [Celexa 40 mg Tablet] 40 mg PO DAILY 05/24/16 Docusate Sodium [Colace 100 mg Capsule] 100 mg PO DAILY 05/24/16 Fluticasone/Salmeterol [Advair 250-50 Diskus 14 Dose/Diskus] 1 puff IH BID 05/24 Gabapentin [Neurontin 100 mg Capsule] 200 mg PO QPM 05/24/16 Montelukast Sodium [Singulair 10 mg Tablet] 10 g PO DAILY 05/24/16 Oxycodone HCl/Acetaminophen [Oxycodon-Acetaminophen 7.5-325] 1 tab PO TID Pregabalin [Lyrica] 50 mg PO DAILY 05/24/16 Promethazine HCl [Phenergan 25 mg Tablet] 25 mg PO Q6HP PRN 05/24/16 Roflumilast [Daliresp 500 mcg Tablet] 500 mcg PO DAILY 05/24/16 Ropinirole HCl 1 mg PO TID 05/24/16 Tiotropium [place] [Spiriva Handihaler 5 Cap/Kit (18 Mcg/Cap)] 2 puff IH BID Zolpidem Tartrate [Ambien 5 mg Tablet] 5 mg PO HSP PRN 05/24/16 Alprazolam [Xanax 0.25 mg Tablet] 0.25 mg PO DAILYP PRN #30 tablet 06/04/16 Prednisone 5 mg PO ASDIR PRN #22 tablet 06/04/16 Allergies/Adverse Reactions: codeine [Codeine] Allergy (Unknown, Verified 11/04/14 17:36) erythromycin base [Erythromycin Base] Allergy (Unknown, Verified 11/04/14 17:36) Review of Systems All systems: as per H Physical Exam Vital Signs: Temp Pulse Resp BP Pulse Ox 37.0 C 84 18 114/61 92 08/20/16 03:22 08/20/16 03:22 08/20/16 03:22 08/20/16 03:22 08/20/16 03:22 Intake & Output 08/19/16 08/20/16 08/21/16 06:59 06:59 06:59 Intake Total 559 Output Total 400 Balance 159 Physical Exam: The very thin almost cachectic appearing elderly white female lying in a hospital bed. She is alert and appropriate. General appearance: PRESENT: mild distress, thin Head exam: PRESENT: normocephalic Eye exam: PRESENT: EOMI Respiratory exam: PRESENT: unlabored Pulses: PRESENT: +1 pedal pulses bilateral Vascular exam: PRESENT: normal capillary refill GI/Abdominal exam: PRESENT: soft Rectal exam: PRESENT: deferred Extremities exam: PRESENT: other - Right lower extremity shortened and externally rotated skin is intact. Distal neurovascular examination is intact. Neurological exam: PRESENT: alert, awake, oriented to person, oriented to place , oriented to time, oriented to situation. ABSENT: motor sensory deficit Psychiatric exam: PRESENT: appropriate affect, normal mood. ABSENT: homicidal ideation, suicidal ideation Skin exam: PRESENT: dry, intact, warm. ABSENT: cyanosis, rash Results Impressions: Chest X-Ray 08/19/16 19:41 IMPRESSION: COPD. NO ACUTE RADIOGRAPHIC FINDING IN THE CHEST. Head CT 08/19/16 19:41 IMPRESSION: NORMAL BRAIN CT WITHOUT CONTRAST. Hip X-Ray 08/19/16 19:41 IMPRESSION: ACUTE INTERTROCHANTERIC FRACTURE OF THE RIGHT HIP. OLD POSTTRAUMATIC AND POST SURGICAL CHANGES IN THE LEFT HIP. Status: Imported from PACS Assessment & Plan - Diagnosis (1) Closed right hip fracture Qualifiers: Encounter type: initial encounter Qualified Code(s): S72.001A - Fracture of unspecified part of neck of right femur, initial encounter for closed fracture Is this a current diagnosis for this admission?: YesPlan: 75-year-old white female with a right intertrochanteric femur fracture which is best served with an open reduction internal fixation. We will proceed with this pending medical and cardiac clearance as well as OR availability. - Time Time Spent: 50 to 70 Minutes Anticipated discharge: SNF Within: Other
--- NOTE | 2016-08-20 08:15 | EKG REPORT ---
SEVERITY:- ABNORMAL ECG - SINUS RHYTHM LEFT ANTERIOR FASCICULAR BLOCK ABNORMAL BIPHASIC T WAVES IN V2, V3, V4, SUGGESTIVE WELLEN'S SYNDROME, CLINICAL CORRELATION IS VERY MUCH NEEDED, CARDIOLOGY CONSULT IF IN ACS SETTING. : Confirmed by: Ramakrishna Gerber MD 20-Aug-2016 08:15:12
--- NOTE | 2016-08-20 08:58 | PDOC H&P ---
History of Present Illness Admission Date/PCP: 08/20/16 01:46 SARITA ANNA Patient complains of: Fall with right hip pain History of Present Illness: SUSAN BINGHAM is a 75 year old female known to my practice who presented to ED with complain of fall while loading her washing machine and tripped over a cord. She subsequently experience pain and difficulty bearing weight on her right hip joint. She denied any preceding chest pain, palpitation, dizziness or lightheadedness. No loss of consciousness. She sustained laceration injury to right side of her head. Patient reported subsequent nausea but no vomiting. Her initial evaluation in the ED was remarkable for right intertrochanteric fracture of right femur. Past Medical History Cardiac Medical History: Reports: Hyperlipidema, Hypertension, Pulmonary Embolism Pulmonary Medical History: Reports: Asthma, Bronchitis, Chronic Obstructive Pulmonary Disease (COPD), Pneumonia, Respiratory Failure, Sleep Apnea GI Medical History: Reports: Diverticulitis, Gastroesophageal Reflux Disease Musculoskeltal Medical History: Reports: Arthritis Psychiatric Medical History: Reports: Depression Past Surgical History Past Surgical History: Reports: Colostomy - with reversal, 6 years ago, Hysterectomy, Orthopedic Surgery - left hip replacement 11/04/2014, Pacemaker Social History Smoking Status: Former Smoker Frequency of Alcohol Use: None Hx Recreational Drug Use: No Drugs: None Hx Prescription Drug Abuse: No - Advance Directive Resuscitation Status: Full Code Family History Family History: CAD - This is in not immediate family members., DM, Hyperlipidemia, Hypertension Parental Family History Reviewed: Yes Children Family History Reviewed: Yes Sibling(s) Family History Reviewed.: Yes Medication/Allergy Home Medications: Acetazolamide [Diamox 250 mg Tab] 250 mg PO Q12 05/24/16 Albuterol Sulfate [Albuterol Sulfate 2.5mg/3 mL] 2.5 ml NEB TIDP PRN 05/24/16 Apixaban [Eliquis] 2.5 mg PO Q12 05/24/16 Buspirone HCl [Buspar 15 mg Tablet] 7.5 mg PO BID 05/24/16 Citalopram Hydrobromide [Celexa 40 mg Tablet] 40 mg PO DAILY 05/24/16 Docusate Sodium [Colace 100 mg Capsule] 100 mg PO DAILY 05/24/16 Fluticasone/Salmeterol [Advair 250-50 Diskus 14 Dose/Diskus] 1 puff IH BID 05/24 Gabapentin [Neurontin 100 mg Capsule] 200 mg PO QPM 05/24/16 Montelukast Sodium [Singulair 10 mg Tablet] 10 g PO DAILY 05/24/16 Oxycodone HCl/Acetaminophen [Oxycodon-Acetaminophen 7.5-325] 1 tab PO TID Pregabalin [Lyrica] 50 mg PO DAILY 05/24/16 Promethazine HCl [Phenergan 25 mg Tablet] 25 mg PO Q6HP PRN 05/24/16 Roflumilast [Daliresp 500 mcg Tablet] 500 mcg PO DAILY 05/24/16 Ropinirole HCl 1 mg PO TID 05/24/16 Tiotropium [place] [Spiriva Handihaler 5 Cap/Kit (18 Mcg/Cap)] 2 puff IH BID Zolpidem Tartrate [Ambien 5 mg Tablet] 5 mg PO HSP PRN 05/24/16 Alprazolam [Xanax 0.25 mg Tablet] 0.25 mg PO DAILYP PRN #30 tablet 06/04/16 Prednisone 5 mg PO ASDIR PRN #22 tablet 06/04/16 Allergies/Adverse Reactions: codeine [Codeine] Allergy (Unknown, Verified 11/04/14 17:36) erythromycin base [Erythromycin Base] Allergy (Unknown, Verified 11/04/14 17:36) Review of Systems Constitutional: ABSENT: chills, fever(s), headache(s), weight gain, weight loss Eyes: PRESENT: visual disturbances - CAWG Ears: ABSENT: hearing changes Nose, Mouth, and Throat: ABSENT: as per HPI, headache(s), mouth pain, sore throat, vertigo, other Cardiovascular: PRESENT: dyspnea on exertion - related to her end stage COPD Respiratory: PRESENT: dyspnea - related to her End stage COPD Gastrointestinal: PRESENT: nausea. ABSENT: as per HPI, abdominal pain, bloating , coffee ground emesis, constipation, diarrhea, dysphagia, heartburn, hematemesis, hematochezia, melena, vomiting, other Musculoskeletal: PRESENT: deformity - relate to multiple joints involvement with arthritis, other - right hip joint pain Neurological: PRESENT: abnormal gait - due to right hip joint fracture. ABSENT : as per HPI, abnormal movements, abnormal speech, confusion, convulsions, dizziness, focal weakness, frequent falls, lack of coordination, memory loss, numbness, paresthesias, restless legs, syncope, tingling, tremor(s), vertigo, weakness, other Psychiatric: PRESENT: anxiety. ABSENT: as per HPI, depression, hallucinations, homidical ideation, suicidal ideation, other Endocrine: ABSENT: cold intolerance, heat intolerance, menstrual abnormalities, polydipsia, polyuria Hematologic/Lymphatic: ABSENT: easy bleeding, easy bruising, lymphadenopathy Physical Exam Vital Signs: Temp Pulse Resp BP Pulse Ox 98.6 F 86 18 114/61 92 08/20/16 03:22 08/20/16 07:00 08/20/16 03:22 08/20/16 03:22 08/20/16 03:22 Intake & Output 08/19/16 08/20/16 08/21/16 06:59 06:59 06:59 Intake Total 559 Output Total 400 Balance 159 General appearance: PRESENT: cooperative, mild distress - from right hip joint pain, thin Head exam: PRESENT: atraumatic - s/p laceration injury right temporal region with suture closure Eye exam: PRESENT: conjunctiva pink, EOMI, PERRLA. ABSENT: scleral icterus Ear exam: PRESENT: normal external ear exam Mouth exam: PRESENT: moist, tongue midline Throat exam: ABSENT: post pharyngeal erythema, tonsillar erythema, tonsillar exudate, tonsillogmegaly, other Neck exam: PRESENT: full ROM. ABSENT: carotid bruit, JVD, lymphadenopathy, thyromegaly Respiratory exam: PRESENT: decreased breath sounds, prolonged expiratory phas, rhonchi - minimal expiratory phase Cardiovascular exam: PRESENT: RRR. ABSENT: diastolic murmur, rubs, systolic murmur GI/Abdominal exam: PRESENT: normal bowel sounds, soft. ABSENT: distended, guarding, mass, organolmegaly, rebound, tenderness Rectal exam: PRESENT: deferred Gentrourinary exam: PRESENT: indwelling catheter Extremities exam: PRESENT: tenderness - right hip joint with motion. ABSENT: pedal edema Musculoskeletal exam: PRESENT: deformity, tenderness Neurological exam: PRESENT: alert, awake, oriented to person, oriented to place , oriented to time, oriented to situation, CN II-XII grossly intact. ABSENT: motor sensory deficit Psychiatric exam: PRESENT: anxious - related to her underlying mental health and ongoing acute issue. ABSENT: agitated, appropriate affect, depressed, flat affect, homicidal ideation, manic, normal mood, suicidal ideation, unusual affect, other Skin exam: PRESENT: dry, normal color, warm, other - laceration injury right nondenominational region Results Impressions: Chest X-Ray 08/19/16 19:41 IMPRESSION: COPD. NO ACUTE RADIOGRAPHIC FINDING IN THE CHEST. Head CT 08/19/16 19:41 IMPRESSION: NORMAL BRAIN CT WITHOUT CONTRAST. Hip X-Ray 08/19/16 19:41 IMPRESSION: ACUTE INTERTROCHANTERIC FRACTURE OF THE RIGHT HIP. OLD POSTTRAUMATIC AND POST SURGICAL CHANGES IN THE LEFT HIP. Assessment & Plan - Diagnosis (1) Closed right hip fracture Qualifiers: Encounter type: initial encounter Qualified Code(s): S72.001A - Fracture of unspecified part of neck of right femur, initial encounter for closed fracture Is this a current diagnosis for this admission?: YesPlan: See admitting physician orders. (2) Laceration of face without complication Qualifiers: Encounter type: subsequent encounter Qualified Code(s): S01.81XD - Laceration without foreign body of other part of head, subsequent encounter Is this a current diagnosis for this admission?: YesPlan: See admitting physician orders. S/p closure with suturing. (3) COPD (chronic obstructive pulmonary disease) Qualifiers: COPD type: COPD with acute exacerbation Qualified Code(s): J44.1 - Chronic obstructive pulmonary disease with (acute) exacerbation Is this a current diagnosis for this admission?: YesPlan: See admitting physician orders. (4) Chronic respiratory failure with hypoxia and hypercapnia Is this a current diagnosis for this admission?: YesPlan: See admitting physician orders. (5) CAD (coronary artery disease) Qualifiers: Coronary Disease-Associated Artery/Lesion type: [place] artery Associated angina: without angina Is this a current diagnosis for this admission?: YesPlan: See admitting physician orders. (6) Old non-ST elevation myocardial infarction (NSTEMI) Is this a current diagnosis for this admission?: YesPlan: See admitting physician orders. (8) HTN (hypertension) Qualifiers: Hypertension type: essential hypertension Qualified Code(s): I10 - Essential (primary) hypertension Is this a current diagnosis for this admission?: YesPlan: See admitting physician orders. (9) Pfsch-Dxuuckzzh-Auyty syndrome Is this a current diagnosis for this admission?: YesPlan: See admitting physician orders. (10) HLD (hyperlipidemia) Qualifiers: Hyperlipidemia type: pure hypercholesterolemia Qualified Code(s): E78.00 - Pure hypercholesterolemia, unspecified; E78.0 - Pure hypercholesterolemia Is this a current diagnosis for this admission?: YesPlan: See admitting physician orders. (11) Mixed anxiety and depressive disorder Is this a current diagnosis for this admission?: YesPlan: See admitting physician orders. - Time Time Spent: 50 to 70 Minutes Medications reviewed and adjusted accordingly: Yes Anticipated discharge: SNF - Inpatient Certification Based on my medical assessment, after consideration of the patient's comorbidities, presenting symptoms, or acuity I expect that the services needed warrant INPATIENT care.: Yes I certify that my determination is in accordance with my understanding of Medicare's requirements for reasonable and necessary INPATIENT services [42 CFR 412.3e].: Yes Medical Necessity: Need Close Monitoring Due to Risk of Patient Decompensation, Need For IV Fluids, Need For Continuous Telemetry Monitoring, Need for Surgery, Risk of Complication if Not Cared For in Hospital Post Hospital Care: D/C or Transfer Summary - Plan Summary Plan Summary: See admitting physician orders. Request pulmonary and cardiac clearance for ORIF of right hip fracture in view of her significant comorbidities.
[2016-08-20 09:34] LABS: ABSOLUTE LYMPHOCYTES (AUTO) 1.8 10^3/uL (0.5-4.7); ABSOLUTE MONOCYTES (AUTO) 1.4 10^3/uL (0.1-1.4); ABSOLUTE NEUT (AUTO) 8.8 10^3/uL (1.7-8.2); BASOPHILS % (AUTO) 0.2 % (0-2); EOSINOPHILS % (AUTO) 0.2 % (0-6); HEMATOCRIT 35.2 % (36.0-47.0); HGB HCT DIFFERENCE -2.2; LYMPHOCYTES % (AUTO) 14.8 % (13-45); MEAN CORPUSCULAR HEMOGLOBIN 27.8 pg (27.0-33.4); MEAN CORPUSCULAR HGB CONC 31.3 g/dL (32.0-36.0); MEAN CORPUSCULAR VOLUME 89 fl (80-97); MONOCYTES % (AUTO) 11.7 % (3-13); RED BLOOD COUNT 3.96 10^6/uL (3.72-5.28); RED CELL DISTRIBUTION WIDTH 16.4 % (11.5-14.0); SEGMENTED NEUTROPHILS % (AUTO) 73.1 % (42-78)
[2016-08-20 09:46] LABS: PARTIAL THROMBOPLASTIN TIME 31.6 SEC (23.5-35.8)
[2016-08-20] MEDS ORDERED: IPRATROPIUM/ALBUTEROL 0.5-2.5 MG/3 ML AMPUL NEB ONE ×2 (12:50→13:30)
--- NOTE | 2016-08-20 13:26 | Progress Note ---
Provider Note Provider Note: Date of progress note: 08/20/2016. Reason for consultation: Preoperative cardiac risk assessment in the patient with history of coronary artery disease, COPD, history of pulmonary embolism, and hypertension. Patient interviewed history taken and patient examined. The patient has a history of coronary artery disease history of old non-ST elevation [place] with the no anginal symptoms, but T inversions in the anterior leads, history of pulmonary embolism, history of hypertension, history of COPD with chronic respiratory failure, and history of hyperlipidemia, and history of anxiety and depression,, fell and broke her right hip surgery surgical correction of the same. The patient denies any chest pain or discomfort. But in view of the EKG changes will and history of pulmonary embolism and pulmonary CT angiogram has been ordered, along with we will get a stress test Cardiolite Lexiscan in the a.m. Formal consult to follow after results of the above are available tomorrow. Also echocardiogram has been ordered on the patient. Discussed with Dr. Jackson. Discussed with Dr. Sanz. Thank you
[2016-08-20 14:11] LABS: ANION GAP 8 (5-19); BLOOD UREA NITROGEN 14 mg/dL (7-20); CALCIUM 9.2 mg/dL (8.4-10.2); CARBON DIOXIDE 20 mmol/L (22-30); CHLORIDE 107 mmol/L (98-107); CREATININE RESULT 0.97 mg/dL (0.52-1.25); GLUCOSE 109 mg/dL (75-110); MAGNESIUM 1.7 mg/dL (1.6-2.3); PHOSPHORUS 4.3 mg/dL (2.5-4.5); POTASSIUM 4.3 mmol/L (3.6-5.0); SODIUM 135.1 mmol/L (137-145)
[2016-08-20] MEDS ORDERED: BUDESONIDE NEB 0.25 MG/2 ML AMPUL NEB ONE (14:15)
[2016-08-20] MEDS ORDERED: ROFLUMILAST 500 MCG TABLET PO ONE (14:15)
[2016-08-20 14:29] LABS: ARTERIAL BLOOD O2 SATURATION 94.1 % (94-98)
--- NOTE | 2016-08-20 15:00 | RADIOLOGY REPORT (SQ) ---
EXAM DESCRIPTION: CTA CHEST COMPLETED DATE/TIME: 08/20/2016 2:39 pm REASON FOR STUDY: H?O PE.Anterior T changes. COMPARISON: CT angio chest 04/09/2016, 01/19/2016, 04/25/2015, 05/30/2011 TECHNIQUE: CT scan of the chest performed using helical scanning technique with dynamic intravenous contrast injection. Images reviewed with lung, soft tissue and bone windows. Reconstructed coronal and sagittal MPR images reviewed. Additional 3 dimensional post-processing performed to develop Maximal Intensity Projection images (VT P). All images stored on PACS. All CT scanners at this facility use dose modulation, iterative reconstruction, and/or weight based d osing when appropriate to reduce radiation dose to as low as reasonably achievable (ALARA). [facility]: Dose Right [facility]: CareDose [facility]: Dose Right [facility]: Teradose 4D [facility]: [employer] CONTRAST TYPE AND DOSE: contrast/concentration: Isovue 370.00 mg/ml; Total Contrast Delivered: 51.0 ml; Total Saline Delivered: 96.1 ml RENAL FUNCTION: Creatinine 0.92 RADIATION DOSE: Up-to-date CT equipment and radiation dose reduction techniques were employed. CTDIv ol: 6.4 - 7.5 mGy. DLP: 255 mGy-cm. . LIMITATIONS: None. FINDINGS: LUNGS AND PLEURA: Advanced changes of obstructive lung disease with hyperinflation and hyp erlucency. No focal infiltrates. No pleural effusions. No pulmonary nodules. AORTA AND GREAT VESSELS: No aneurysm or dissection. HEART: No pericardial effusion. PULMONARY ARTERIES: No emboli visualized in the main pulmonary arteries or the segmental branches. HILAR AND MEDIASTINAL STRUCTURES: No adenopathy. Wall thickening mid 3rd of the esophagus. Consider barium swallow for followup. HARDWARE: Right-sided permanent central line tip superior vena cava. Left-sided dual lead pacemaker. UPPER ABDOMEN: 5 mm intrarenal nonobstructive stone lower pole right kidney. 1 cm cyst right lower p ole kidney THYROID AND OTHER SOFT TISSUES: No masses. No adenopathy. BONES: T11 50% compression deformity unchanged from 04/09/2016. 3D MIPS: Confirm above findings. OTHER: No other significant finding. IMPRESSION: Obstructive lung disease No CT angio evidence of acute pulmonary emboli or thoracic aortic dissection TECHNICAL DOCUMENTATION: JOB ID: [id number] Quality ID # [id number]: Final reports with documentation of one or more dose reduction techniques (e.g., Au tomated exposure control, adjustment of the mA and/or kV according to patient size, use of iterative reconstruction technique) 2010 [employer]- All Rights Reserved
[2016-08-20] MEDS: IPRATROPIUM/ALBUTEROL 0.5-2.5 MG/3 ML AMPUL NEB SCH (16:31)
--- NOTE | 2016-08-20 16:47 | XCELERA REPORT ---
[address] [address] Transthoracic Echocardiogram Report Name: SUSAN BINGHAM Age: 75 yrs Gender: Female : 1940 Patient Status: Inpatient Patient Location: [id number] Study Date: 08/20/2016 11:14 AM Height: 61 in Weight: 91 lb BSA: 1.4 m2 Procedure: A two-dimensional transthoracic echocardiogram with color flow and Doppler was performed. The study was technically difficult with many images being suboptimal in quality. Reason For Study: ABNORMAL EKG / MURMUR / PRE_-OP History: ABNORMAL EKG / MURMUR / PRE_-OP. Ordering Physician: KATHLEEN ZHAO Performed By: Viry Diaz Interpretation Summary The left ventricle is normal in size. There is normal left ventricular wall thickness. LV EF is 45% Left ventricular systolic function is mildly reduced. Doppler measurements suggest impaired left ventricular relaxation, which is associated with grade I/IV or mild diastolic dysfunction There is mild global hypokinesis of the left ventricle. The left atrial size is normal. The interatrial septum is intact with no evidence for an atrial septal defect. There is no evidence of mitral valve prolapse. There is no vegetation seen on the mitral valve. There is no mitral valve stenosis. There is no mitral regurgitation noted. There is no aortic valvular vegetation. There is no aortic valve stenosis There is no LVOT obstruction. There is a mild amount of aortic regurgitation There is no tricuspid stenosis. There is a mild amount of tricuspid regurgitation RVSP is 49 to 54 mm of Hg , with RA mean of 10 to 15. There is moderate pulmonary hypertension by echo There is no pericardial effusion. MMode/2D Measurements \T\ Calculations RVDd: 3.7 cm LVIDd: 4.2 cm FS: 22.1 % Ao root diam: 3.0 cm IVSd: 0.82 cm LVIDs: 3.3 cm EDV(Teich): 78.8 ml LVPWd: 0.82 cm ESV(Teich): 43.4 ml Ao root area: 7.3 cm2 EF(Teich): 44.9 % Doppler Measurements \T\ Calculations MV E max eric: MV dec slope: Ao V2 max: AI max eric: 40.3 cm/sec 144.5 cm/sec 175.7 cm/sec MV A max eric: 226.8 cm/sec2 Ao max PG: AI max P.1 cm/sec MV dec time: 8.4 mmHg 12.6 mmHg MV E/A: 0.55 0.18 sec AI dec slope: 80.9 cm/sec2 AI P1/2t: 635.8 msec LV V1 max PG: PA V2 max: TR max eric: 2.0 mmHg 71.6 cm/sec 296.6 cm/sec LV V1 max: PA max P.0 mmHg TR max P.2 cm/sec 35.3 mmHg Left Ventricle The left ventricle is normal in size. There is normal left ventricular wall thickness. LV EF is 45%. Left ventricular systolic function is mildly reduced. Doppler measurements suggest impaired left ventricular relaxation, which is associated with grade I/IV or mild diastolic dysfunction. There is mild global hypokinesis of the left ventricle. There is no thrombus. There is no ventricular septal defect visualized. Right Ventricle The right ventricle is not well visualized secondary to technical limitations. Atria The right atrium is normal. The left atrial size is normal. The interatrial septum is intact with no evidence for an atrial septal defect. Mitral Valve There is no evidence of mitral valve prolapse. There is no vegetation seen on the mitral valve. There is no mitral valve stenosis. There is no mitral regurgitation noted. Aortic Valve There is no aortic valvular vegetation. There is no aortic valve stenosis. There is no LVOT obstruction. There is a mild amount of aortic regurgitation. Tricuspid Valve There is no tricuspid stenosis. There is a mild amount of tricuspid regurgitation. RVSP is 49 to 54 mm of Hg , with RA mean of 10 to 15. There is moderate pulmonary hypertension by echo. Pulmonic Valve There is no pulmonic valvular stenosis. There is no pulmonic valvular regurgitation. Great Vessels The aortic root is normal size. The inferior vena cava appeared normal and decreased < 50% with respiration (RAP 10-15 mmHg). Effusions There is no pericardial effusion. : KATHLEEN ZHAO > Kathleen Zhao
[2016-08-20] MEDS: NORMAL SALINE 1000 ML 1,000 ML IV PRN (17:50)
[2016-08-20] MEDS: BUDESONIDE NEB 0.25 MG/2 ML AMPUL NEB SCH (19:53)
--- NOTE | 2016-08-20 20:49 | PDOC CONSULTATION ---
Consultation Consult Date: 08/20/16 Attending physician:: SARITA CASTILLO Consult reason:: COPD History of Present Illness Admission Date/PCP: 08/20/16 01:46 SARITA CASTILLO History of Present Illness: SUSAN BINGHAM is a 75 year old female known to my practice complain of fall while loading her washing machine and tripped over a cord. She subsequently experience pain and difficulty bearing weight on her right hip joint. She denied any preceding chest pain, palpitation, dizziness or lightheadedness. No loss of consciousness. She sustained laceration injury to right side of her head. Patient reported subsequent nausea but no vomiting. Her initial evaluation in the ED was remarkable for right intertrochanteric fracture of right femur.hx of COPD and dysphagia and aspiration Past Medical History Cardiac Medical History: Reports: Hyperlipidema, Hypertension, Pulmonary Embolism Pulmonary Medical History: Reports: Asthma, Bronchitis, Chronic Obstructive Pulmonary Disease (COPD), Pneumonia, Respiratory Failure, Sleep Apnea GI Medical History: Reports: Diverticulitis, Gastroesophageal Reflux Disease Musculoskeltal Medical History: Reports: Arthritis Psychiatric Medical History: Reports: Depression Past Surgical History Past Surgical History: Reports: Colostomy - with reversal, 6 years ago, Hysterectomy, Orthopedic Surgery - left hip replacement 11/04/2014, Pacemaker Social History Smoking Status: Former Smoker Passive smoke exposure as: Both Frequency of Alcohol Use: None Hx Recreational Drug Use: No Drugs: None Hx Prescription Drug Abuse: No - Advance Directive Resuscitation Status: Full Code Family History Family History: CAD - This is in not immediate family members., DM, Hyperlipidemia, Hypertension Parental Family History Reviewed: Yes Children Family History Reviewed: Yes Sibling(s) Family History Reviewed.: Yes Medication/Allergy Home Medications: Acetazolamide [Diamox 250 mg Tab] 250 mg PO Q12 05/24/16 Albuterol Sulfate [Albuterol Sulfate 2.5mg/3 mL] 2.5 ml NEB Q8HP PRN 05/24/16 Apixaban [Eliquis] 2.5 mg PO Q12 05/24/16 Buspirone HCl [Buspar 15 mg Tablet] 7.5 mg PO Q8 05/24/16 Citalopram Hydrobromide [Celexa 40 mg Tablet] 40 mg PO DAILY 05/24/16 Docusate Sodium [Colace 100 mg Capsule] 100 mg PO DAILYP PRN 05/24/16 Fluticasone/Salmeterol [Advair 250-50 Diskus 14 Dose/Diskus] 1 puff IH BID 05/24 Gabapentin [Neurontin 100 mg Capsule] 200 mg PO QPM 05/24/16 Montelukast Sodium [Singulair 10 mg Tablet] 10 g PO DAILY 05/24/16 Oxycodone HCl/Acetaminophen [Oxycodon-Acetaminophen 7.5-325] 1 tab PO Q8 Pregabalin [Lyrica] 50 mg PO DAILY 05/24/16 Promethazine HCl [Phenergan 25 mg Tablet] 25 mg PO Q6HP PRN 05/24/16 Roflumilast [Daliresp 500 mcg Tablet] 500 mcg PO QHS 05/24/16 Ropinirole HCl 1 mg PO Q8 05/24/16 Tiotropium [place] [Spiriva Handihaler 5 Cap/Kit (18 Mcg/Cap)] 2 puff IH Q12 Zolpidem Tartrate [Ambien 5 mg Tablet] 5 mg PO HSP PRN 05/24/16 Alprazolam [Xanax 0.25 mg Tablet] 0.25 mg PO DAILYP PRN #30 tablet 06/04/16 Aspirin [Aspirin EC] 81 mg PO QHS 08/20/16 Allergies/Adverse Reactions: codeine [Codeine] Allergy (Unknown, Verified 11/04/14 17:36) erythromycin base [Erythromycin Base] Allergy (Unknown, Verified 11/04/14 17:36) Review of Systems All systems: reviewed and no additional remarkable complaints except as stated Eyes: ABSENT: visual disturbances Physical Exam Vital Signs: Temp Pulse Resp BP Pulse Ox 98.3 F 82 14 103/48 L 97 08/20/16 09:00 08/20/16 09:00 08/20/16 09:00 08/20/16 09:00 08/20/16 09:00 Intake & Output 08/19/16 08/20/16 08/21/16 06:59 06:59 06:59 Intake Total 559 Output Total 400 Balance 159 General appearance: PRESENT: no acute distress, cooperative, disheveled, thin Head exam: PRESENT: atraumatic, normocephalic Eye exam: PRESENT: conjunctiva pale, EOMI Mouth exam: PRESENT: dry mucosa, neck supple, tongue midline Neck exam: ABSENT: carotid bruit, JVD, lymphadenopathy, thyromegaly Respiratory exam: PRESENT: decreased breath sounds, prolonged expiratory phas, unlabored Cardiovascular exam: PRESENT: RRR, +S1, +S2 Pulses: PRESENT: normal radial pulses GI/Abdominal exam: PRESENT: normal bowel sounds, soft. ABSENT: distended, guarding, mass, organolmegaly, rebound, tenderness Rectal exam: PRESENT: deferred Gentrourinary exam: PRESENT: indwelling catheter Musculoskeletal exam: ABSENT: other - r hip fx Neurological exam: PRESENT: alert, awake Psychiatric exam: PRESENT: normal mood Skin exam: PRESENT: dry, warm Results Laboratory Results: 08/20/16 09:19 08/20/16 09:19 WBC 12.0 H RBC 3.96 Hgb 11.0 L Hct 35.2 L MCV 89 MCH 27.8 MCHC 31.3 L RDW 16.4 H Plt Count 221 Seg Neutrophils % 73.1 Lymphocytes % 14.8 Monocytes % 11.7 Eosinophils % 0.2 Basophils % 0.2 Absolute Neutrophils 8.8 H Absolute Lymphocytes 1.8 Absolute Monocytes 1.4 Absolute Eosinophils 0.0 Absolute Basophils 0.0 Impressions: Chest X-Ray 08/19/16 19:41 IMPRESSION: COPD. NO ACUTE RADIOGRAPHIC FINDING IN THE CHEST. Head CT 08/19/16 19:41 IMPRESSION: NORMAL BRAIN CT WITHOUT CONTRAST. Hip X-Ray 08/19/16 19:41 IMPRESSION: ACUTE INTERTROCHANTERIC FRACTURE OF THE RIGHT HIP. OLD POSTTRAUMATIC AND POST SURGICAL CHANGES IN THE LEFT HIP. Assessment & Plan - Diagnosis (1) Chronic obstructive lung disease Qualifiers: COPD type: unspecified COPD Qualified Code(s): J44.9 - Chronic obstructive pulmonary disease, unspecified Is this a current diagnosis for this admission?: YesPlan: bedside spirometry bronchodialators (2) Closed right hip fracture Qualifiers: Encounter type: initial encounter Qualified Code(s): S72.001A - Fracture of unspecified part of neck of right femur, initial encounter for closed fracture Is this a current diagnosis for this admission?: Yes (3) Coronary artery disease Qualifiers: Coronary Disease-Associated Artery/Lesion type: [place] artery [place] vs. transplanted heart: [place] heart Associated angina: angina presence unspecified Qualified Code(s): I25.10 - Atherosclerotic heart disease of [place] coronary artery without angina pectoris
[2016-08-21] MEDS: IPRATROPIUM/ALBUTEROL 0.5-2.5 MG/3 ML AMPUL NEB SCH ×3 (00:17→16:05)
[2016-08-21] MEDS: NORMAL SALINE 1000 ML 1,000 ML IV PRN ×3 (01:55→17:11)
[2016-08-21] MEDS: OXYCODONE-ACETAMINOPHEN 5-325 MG TABLET PO PRN ×5 (02:59→21:32)
[2016-08-21] MEDS: LANSOPRAZOLE 30 MG TAB.RAP.DR PO SCH (05:47)
[2016-08-21] MEDS: BUDESONIDE NEB 0.25 MG/2 ML AMPUL NEB SCH ×2 (08:02→20:10)
--- NOTE | 2016-08-21 08:19 | PDOC PROGRESS REPORT ---
Subjective Progress Note for:: 08/21/16 Physical Exam Vital Signs: Temp Pulse Resp BP Pulse Ox 37.2 C 89 16 132/53 H 95 08/21/16 04:00 08/21/16 04:00 08/21/16 04:00 08/21/16 04:00 08/21/16 04:00 Intake & Output 08/20/16 08/21/16 08/22/16 06:59 06:59 06:59 Intake Total 559 3033 Output Total 400 1150 Balance 159 1883 Weight 49.2 kg Results Laboratory Results: 08/20/16 09:19 08/20/16 09:19 08/20/16 08/20/16 08/20/16 09:19 09:19 14:07 WBC 12.0 H RBC 3.96 Hgb 11.0 L Hct 35.2 L MCV 89 MCH 27.8 MCHC 31.3 L RDW 16.4 H Plt Count 221 Seg Neutrophils % 73.1 Lymphocytes % 14.8 Monocytes % 11.7 Eosinophils % 0.2 Basophils % 0.2 Absolute Neutrophils 8.8 H Absolute Lymphocytes 1.8 Absolute Monocytes 1.4 Absolute Eosinophils 0.0 Absolute Basophils 0.0 Carbonic Acid 1.12 HCO3/H2CO3 Ratio 18:1 ABG pH 7.37 ABG pCO2 37.2 ABG pO2 71.8 L ABG HCO3 20.8 ABG O2 Saturation 94.1 ABG Base Excess -4.0 FiO2 1.5 LPM Sodium 135.1 L Potassium 4.3 Chloride 107 Carbon Dioxide 20 L Anion Gap 8 BUN 14 Creatinine 0.97 Est GFR ( Amer) > 60 Est GFR (Non-Af Amer) 56 L Glucose 109 Calcium 9.2 Phosphorus 4.3 Magnesium 1.7 08/21/16 04:04 Troponin I 0.017 Impressions: Chest X-Ray 08/19/16 19:41 IMPRESSION: COPD. NO ACUTE RADIOGRAPHIC FINDING IN THE CHEST. Head CT 08/19/16 19:41 IMPRESSION: NORMAL BRAIN CT WITHOUT CONTRAST. Hip X-Ray 08/19/16 19:41 IMPRESSION: ACUTE INTERTROCHANTERIC FRACTURE OF THE RIGHT HIP. OLD POSTTRAUMATIC AND POST SURGICAL CHANGES IN THE LEFT HIP. Chest/Abdomen CTA 08/20/16 00:00 IMPRESSION: Obstructive lung disease No CT angio evidence of acute pulmonary emboli or thoracic aortic dissection Assessment & Plan - Diagnosis (1) Closed right hip fracture Qualifiers: Encounter type: initial encounter Qualified Code(s): S72.001A - Fracture of unspecified part of neck of right femur, initial encounter for closed fracture Is this a current diagnosis for this admission?: YesPlan: Is pending cardiac clearance. Plan will be for an open reduction internal fixation of right hip fracture under choice anesthesia tomorrow morning if cardiac clearance is obtained. - Time Time Spent with patient: 15-24 minutes Anticipated discharge: SNF Within: Other
[2016-08-21] MEDS ORDERED: RINGERS SOLUTION,LACTATED 1,000 ML IV PRN (08:54)
[2016-08-21] MEDS ORDERED: CEFAZOLIN 2 GM/D5W RTU 2 GM/50 ML RTUPB IV PRN (08:55)
[2016-08-21] MEDS: ENOXAPARIN SODIUM INJ 30 MG/0.3 ML DISP.SYRIN SUBCUT SCH (09:54)
--- NOTE | 2016-08-21 10:11 | EKG REPORT ---
SEVERITY:- BORDERLINE ECG - SINUS RHYTHM BORDERLINE LEFT AXIS DEVIATION BORDERLINE T ABNORMALITIES, ANTERIOR LEADS : Confirmed by: Ramakrishna Gerber MD 21-Aug-2016 10:10:43
--- NOTE | 2016-08-21 16:21 | PDOC PROGRESS REPORT ---
Subjective Progress Note for:: 08/21/16 Subjective:: Patient was seen by the bedside, she was admitted because of fracture of the right hip, consultation was requested from cardiology because of a history of coronary artery disease, she scheduled for stress test before surgical treatment of the fracture Physical Exam Vital Signs: Temp Pulse Resp BP Pulse Ox 98.6 F 76 18 141/53 H 96 08/21/16 12:38 08/21/16 16:05 08/21/16 16:05 08/21/16 12:38 08/21/16 16:05 Intake & Output 08/20/16 08/21/16 08/22/16 06:59 06:59 06:59 Intake Total 559 3033 477 Output Total 400 1150 600 Balance 159 1883 -123 Weight 49.2 kg General appearance: PRESENT: no acute distress Eye exam: PRESENT: PERRLA Respiratory exam: PRESENT: clear to auscultation luci Cardiovascular exam: PRESENT: +S1, +S2 GI/Abdominal exam: PRESENT: soft Neurological exam: PRESENT: alert, CN II-XII grossly intact Results Laboratory Results: 08/20/16 09:19 08/20/16 09:19 08/21/16 04:04 Troponin I 0.017 Impressions: Chest X-Ray 08/19/16 19:41 IMPRESSION: COPD. NO ACUTE RADIOGRAPHIC FINDING IN THE CHEST. Head CT 08/19/16 19:41 IMPRESSION: NORMAL BRAIN CT WITHOUT CONTRAST. Hip X-Ray 08/19/16 19:41 IMPRESSION: ACUTE INTERTROCHANTERIC FRACTURE OF THE RIGHT HIP. OLD POSTTRAUMATIC AND POST SURGICAL CHANGES IN THE LEFT HIP. Chest/Abdomen CTA 08/20/16 00:00 IMPRESSION: Obstructive lung disease No CT angio evidence of acute pulmonary emboli or thoracic aortic dissection Assessment & Plan - Diagnosis (1) CAD (coronary artery disease) Qualifiers: Coronary Disease-Associated Artery/Lesion type: [place] artery Associated angina: without angina Is this a current diagnosis for this admission?: Yes (2) Chronic obstructive lung disease Qualifiers: COPD type: unspecified COPD Qualified Code(s): J44.9 - Chronic obstructive pulmonary disease, unspecified Is this a current diagnosis for this admission?: Yes (3) Closed right hip fracture Qualifiers: Encounter type: initial encounter Qualified Code(s): S72.001A - Fracture of unspecified part of neck of right femur, initial encounter for closed fracture Is this a current diagnosis for this admission?: Yes (4) Laceration of face without complication Qualifiers: Encounter type: subsequent encounter Qualified Code(s): S01.81XD - Laceration without foreign body of other part of head, subsequent encounter Is this a current diagnosis for this admission?: Yes (5) Mixed anxiety and depressive disorder Is this a current diagnosis for this admission?: Yes (6) Old non-ST elevation myocardial infarction (NSTEMI) Is this a current diagnosis for this admission?: Yes
--- NOTE | 2016-08-21 22:18 | CONSULTATION REPORT E ---
Consultation Report NAME: SUSAN BINGHAM : 1940 AGE: 75Y DATE: 08/21/2016 408 A TO: DORCAS ZHAO M.D. FROM: SARITA CASTILLO M.D. Requesting Physician REASON FOR CONSULTATION: Preoperative cardiac risk assessment for patient to undergo right hip fracture surgery. HISTORY OF PRESENT ILLNESS: The patient is a 75-year-old female who seems to be older than her stated age, with a history of COPD on home oxygen, history of hypertension, and history of pulmonary embolism and history of hypertension, accidentally slipped and fell and sustained a fracture of the right hip, and the patient is to undergo surgery for the same. Hence cardiac clearance requested for cardiac risk assessment for the surgery. The patient denies any chest pain or discomfort. There is no shortness of breath. There is no wheezing. There is no PND or orthopnea. There are no palpitations. There is no TIA or CVA symptoms. PAST MEDICAL HISTORY: Positive for history of hypertension which the patient states is well controlled. She also has a history of COPD and is on home oxygen for that with no symptoms of acute exacerbation of COPD recently. She has a history of pulmonary embolism about 5 months ago and is on Eliquis 2.5 mg p.o. b.i.d. 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 She has no history of diabetes mellitus. She has a history of arthritis, anxiety, depression and she also has a past history of diverticulitis and gastroesophageal reflux disease. She also has a history of sleep apnea but the patient states she does not wear CPAP. A few months ago she had acute exacerbation of COPD and had a troponin I leak and was transferred to [facility] where she did not undergo cardiac catheterization; it was thought that her troponin I elevation was secondary to type-2 WY due to acute exacerbation of COPD and no cardiac catheterization was done. There is no definite history of coronary artery disease and no definite history of WY except for the type-2 WY as mentioned earlier. She has no history of TIA or CVA. She has a past history of syncope due to sick sinus syndrome with bradycardia causing syncope which has been corrected with a permanent pacemaker. There is no history of thyroid disease. There is no history of diabetes mellitus. The patient denies any history of chronic kidney disease. PAST SURGICAL HISTORY: Positive for colostomy with reversal 6 years ago. She has a history of hysterectomy. She has a history of orthopedic surgery, left hip replacement and pacemaker placement which is a dual-chamber permanent pacemaker placement. ALLERGIES: 1. CODEINE. 2. ERYTHROMYCIN BASE. DISPOSITION: The patient is a FULL CODE, and her daughter is her surrogate healthcare decision maker. FAMILY HISTORY: Positive for CAD, diabetes mellitus, hypertension, and hyperlipidemia. SOCIAL HISTORY: The patient quit smoking 3-4 years ago. There is no history of EtOH abuse. MEDICATIONS: 1. Pulmicort nebulizers 0.25 mg nebulizer treatment q.12 h. 2. Cefazolin 2 gm in 50 mL IV preop. 3. Glutose 40% gel, 15 gm p.o. p.r.n. and dextrose 30 gm p.o. p.r.n. (that is 40% glutose gel) 15 gm and 30 gm p.o. p.r.n. hypoglycemia. 4. Dextrose 50% 25 gm IV and 12.5 gm IV p.r.n. hypoglycemia. 6. Lovenox 30 mg subcutaneously daily. 7. Her Eliquis has been stopped. 8. She is on glucagon 1 mg subcutaneously p.r.n. 9. Heparin 70 units IV after each use; this is q.8 h. 10. Ipratropium/albuterol nebulizer treatment 3 mL nebulizer treatment q.8 h. 11. Prevacid 30 mg p.o. at 6 a.m. 12. Normal saline at 125 mL/hr. 13. Oxycodone 1 tablet p.o. q.4 h. p.r.n. 14. Lactated Ringer's 125 mL/hr. REVIEW OF SYSTEMS: CONSTITUTIONAL: Denies any fever, chills or rigors. Complains of generalized fatigue and weakness. HEENT: Eyes: No history of amblyopia or diplopia. No history of amaurosis fugax. Ears: History of hearing loss bilaterally, no history of tinnitus, no history of vertigo and no history of recurrent ear infections. Nose: There is no history of hay fever, no history of nosebleeds, no history of bleeding from the nose. Mouth: No history of altered taste sensation, no ulcers in the mouth, no bleeding from the gums. Throat: There is no redness of the oropharynx and there are no exudates in the throat. There is no odynophagia or dysphagia, no recurrent throats infections. SKIN: There is no pruritus. There is no yellowish discoloration of the skin. There is no psoriasis. There is no skin cancer. NECK: No history of neck pain. No history of painless or painful swelling of the neck. No symptoms of C-spine arthritis. No goiter. LUNGS: history of COPD, on home oxygen. No recent symptoms of cough or sputum production or wheezing. She also has a history of sleep apnea. The patient is not very forthcoming about whether she uses CPAP or not. She has a history of pulmonary embolism and was on Eliquis until recently. No symptoms suggestive of recurrence of pulmonary embolism. CARDIAC: As far as I know, the patient has no definite history of coronary artery disease. History of type 2 myocardial infarction due to supply-demand mismatch due to acute exacerbation of COPD a few months ago. She did not have cardiac catheterization. She has a history of sick sinus syndrome with tachycardia and bradycardia, history of permanent pacemaker, history of WPW syndrome but no recent tachycardia. No history of congestive heart failure. No history of leg edema. No history of syncope after the pacemaker. 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 History of hypertension, well controlled. RENAL: No history of chronic kidney disease. No history of renal failure. No history of symptoms of UTI. No history of hematuria, polyuria or dysuria. ENDOCRINE: No history of diabetes mellitus. No history of thyroid disease. No history of polydipsia or polyuria. No history of heat or cold intolerance. CENTRAL NERVOUS SYSTEM: No history of TIA or CVA. No history of headaches, migraines or seizures. No gait imbalance. PSYCHIATRIC: History of anxiety and depression present. No history of suicidal ideation. VASCULAR: No history of calf or buttock claudication. No history of DVT. HEMATOLOGICAL: No history of bleeding diathesis. No history of clotting disorders. Note that the patient was supposed to have an IV Lexiscan Cardiolite stress test today for preoperative cardiac risk assessment but the patient did consume caffeine and, hence, it has been postponed for tomorrow. PHYSICAL EXAMINATION: GENERAL: At present, the patient is cachectic and chronically ill. VITAL SIGNS: She is afebrile with a temperature of 98.6 degrees Fahrenheit, pulse of 95 beats per minute, blood pressure is 141/53, respirations are 20 per minute, 02 sats are 97% on 2 L nasal cannula. HEENT: Head is atraumatic, normocephalic. Eyes: Pupils are equal, round, regular, reactive to light and accommodation. Extraocular movements are normal. There is no conjunctival pallor. There is no scleral icterus. Ears: Tympanic membranes are intact. External auditory canals are clear. Nose: There is no deviated nasal septum. There is no inflammation of the nasal mucous membranes. Mouth: Mucous membranes of the mouth are moist. Tongue is moist. There are no ulcers. There is no bleeding from the gums. Throat: There is no redness of the oropharynx. There is no bleeding from the gums. There are no exudates. SKIN: There are no skin rashes. There is no petechia or ecchymosis. There are no skin lesions. NECK: Supple. There is no JVD. Carotids are equal. There is no bruit. There is no lymphadenopathy. There is no goiter. LUNGS: Show diminished air entry, prolonged expiration without any rhonchi, rales or wheezing. There is hyperresonance on percussion of the chest throughout. There is no chest wall tenderness. HEART: S1 and S2 are heard. There is no S3 gallop. There is no S4 gallop. There is a systolic murmur in the left sternal border and the apex. There is no rub. ABDOMEN: Soft, nontender. There is no hepatosplenomegaly. Bowel sounds are well heard. There are no tender areas or masses. EXTREMITIES: Femorals are diminished. There are no femoral bruits. Leg pulses are diminished. There is no pedal edema. There is no DVT or cellulitis. There is no calf tenderness. CENTRAL NERVOUS SYSTEM: The patient is conscious, awake, alert, oriented x3 with no focal deficits. PSYCHIATRIC: The patient's judgment and insight seem to be intact. At present, the patient does not appear to be agitated or depressed. DIAGNOSTIC TEST RESULTS: The patient's EKG shows sinus rhythm, left anterior fascicular block, abnormal T inversion in V1, V2, V3 and V4, suggestive of ischemia. The patient's chest x-ray shows no acute radiographic findings. There is evidence of COPD. There is no evidence of congestive heart failure on the chest x-ray as is reviewed by me. The patient's echocardiogram shows the left ventricle is normal in size. There is no LVH. The LV ejection fraction is mildly reduced at 45%. Doppler measurements suggest impaired left ventricular relaxation which is mild diastolic dysfunction. There is mild global hypokinesis of the left ventricle, the left ventricular size is normal. The atrial septum is intact with no evidence of atrial septal defect. There is no evidence of mitral valve prolapse and there is no vegetation of the mitral valve. There is no mitral regurgitation and there is no mitral valve stenosis. There is no aortic valve stenosis. There is a mild amount of aortic regurgitation. There is on tricuspid stenosis. There is a mild amount of tricuspid regurgitation. The right ventricular systolic pressure is moderately elevated at 49 mmHg to 51 mmHg with RA mean of 10-15. There is no pericardial effusion. The patient's chest CTA shows obstructive lung disease, no CTA angiographic evidence of acute pulmonary emboli or thoracic aortic dissection. The patient's white count is 12,000, hemoglobin is 11, hematocrit is 35.2, and platelet count is 221,000. The patient's sodium is 135.1, potassium is 4.3, chloride 107, CO2 20, the patient's BUN is 14, creatinine 0.97, and GFR is reduced at 56 mL and her glucose is 109, her calcium is 9.2, phosphorus 4.3, magnesium is 1.7. CPK-MB is negative. CPK is less than 0.012 and 0.017, hence negative. Albumin is 4.1, total protein is 7.5. The ABG showed a pH of 7.37, pCO2 37.2, pO2 is 71.8 which is low, and 02 sats are 94% on 1.5 L nasal cannula. The patient's pro time is 14, INR is 1.01, PTT is 31.6. IMPRESSION: 1. Closed right hip fracture, for surgery. 2. COPD on home oxygen. 3. Abnormal EKG suggestive of ischemia anterior wall. The patient is for stress test Cardiolite Lexiscan tomorrow since she would not have it done today. 4. Chronic respiratory failure with hypoxemia, at present remains stable. No evidence of acute exacerbation of COPD. 5. No significant coronary artery disease as per history. 6. Elevated troponin I a few months ago secondary to type-2 supply/demand mismatch issue rather than a non-ST elevation WY. The patient did not have cardiac catheterization at [facility]. This was thought to be due to acute exacerbation of COPD. 7. Sick sinus syndrome with tachycardia and bradycardia and with a history of syncope with bradycardia, status post permanent pacemaker placement. 8. History of permanent pacemaker placement. 9. Hypertension, well controlled. 10. History of Vlska-Qpxtmezkx-Otint syndrome with no acute clinical expression of the disease. 11. Hyperlipidemia. 12. Mixed anxiety and depressive disorder. 13. Cardiomyopathy with mildly reduced LV ejection fraction. 14. Past history of pulmonary embolism. 15. Moderate pulmonary hypertension. 16. Preoperative cardiac risk assessment. RECOMMENDATIONS: Note, in view of the EKG changes, it is imperative that we get an IV Lexiscan Cardiolite stress test to make sure that the patient has no acute ischemia. If the stress test is negative, the patient would be acceptable/mild to moderate cardiovascular risk for this procedure. Note, Pulmonary has been consulted. We will continue the patient's current medications. Postoperatively would make sure that the patient has DVT/PE prophylaxis in view of the patient's prior history of pulmonary embolism. The patient needs to be on long-term anticoagulation. Note, would recommend that the patient be on IV Cardizem and IV normal saline. We will start the patient on a small dose of beta-logan in the a.m. after the stress test. We will await the stress test. Note, the patient was seen on 08/20 and also today at around 12:30 p.m. on 08/21/2016. Note, 40 minutes spent on this patient with more than 50% of the time spent on direct patient care. Her medications have been reviewed. We will start the patient on beta-logan after the patient's stress test which will be done tomorrow. Note, highly complex medical decision making involved in this case. Discussed with Dr. Sanz and discussed with the attending physician covering Dr. Castillo. Will follow with you. Thanking you. DICTATING PHYSICIAN: DORCAS ZHAO M.D. [id number] PHY#: [id number] ID: [id number] JOB#: [id number] ACCT: [id number] cc:DORCAS ZHAO M.D. >
[2016-08-22] MEDS: RINGERS SOLUTION,LACTATED 1,000 ML IV PRN ×2 (00:17→08:44)
[2016-08-22] MEDS: IPRATROPIUM/ALBUTEROL 0.5-2.5 MG/3 ML AMPUL NEB SCH ×4 (00:45→20:31)
[2016-08-22] MEDS: OXYCODONE-ACETAMINOPHEN 5-325 MG TABLET PO PRN ×5 (02:22→23:21)
[2016-08-22] MEDS: LANSOPRAZOLE 30 MG TAB.RAP.DR PO SCH (05:30)
[2016-08-22] MEDS: BUDESONIDE NEB 0.25 MG/2 ML AMPUL NEB SCH ×2 (08:03→20:31)
[2016-08-22] MEDS ORDERED: DEXAMETHASONE SOD PHOSPHATE INJ 4 MG/1 ML VIAL ONE (08:06)
[2016-08-22] MEDS ORDERED: ONDANSETRON HCL INJ/PF 4 MG/2 ML SDV ONE (08:06)
[2016-08-22] MEDS ORDERED: PHENYLEPHRINE HCL INJ/PF 10 MG/1 ML SDV ONE (08:06)
[2016-08-22] MEDS ORDERED: METOCLOPRAMIDE HCL INJ/PF 10 MG/2 ML SDV ONE (08:06)
[2016-08-22] MEDS ORDERED: LIDOCAINE 2% INJ-PF (20 MG/ML) 10 ML AMPUL ONE (08:06)
[2016-08-22] MEDS: ENOXAPARIN SODIUM INJ 30 MG/0.3 ML DISP.SYRIN SUBCUT SCH ×2 (09:02→21:58)
[2016-08-22] MEDS ORDERED: REGADENOSON INJ 0.4 MG/5 ML DISP.SYRIN IV ONE (10:45)
[2016-08-22] MEDS ORDERED: METOPROLOL TARTRATE 50 MG TABLET ONE (12:02)
[2016-08-22] MEDS: ONDANSETRON HCL INJ/PF 4 MG/2 ML SDV IV PRN (12:14)
[2016-08-22] MEDS: METOPROLOL SUCCINATE 25 MG TAB.SR.24H PO SCH (12:34)
--- NOTE | 2016-08-22 12:34 | DRAGON STRESS TEST REPORT ---
Intravenous Lexiscan Cardiolite stress test using single photon emmision computerized tomography. Date of procedure: 08/22/2016. Ordering Provider: Dr. Kathleen Montero. Patient's status: Inpatient. Attending Physician: Dr. Jackson. Indication: Abnormal EKG, multiple risk factors for coronary artery disease, and preoperative cardiac risk assessment.. Coronary risk factors: Age, hypertension, and family history of coronary artery disease. Resting EKG: Sinus Rhythm. T inversion in leads V1 to V3. Nonspecific ST-T changes inferior leads Stress EKG: This is [address] segment depression in the inferior leads and also in leads V3 and V4. This is suggestive of Lexiscan induced ischemia. The patient had no chest pain or discomfort, and there were no arrhythmias seen.. Reason for termination: Protocol. Conclusions: IschemicEKG and normal hemodynamic response to IV Lexiscan. Nuclear data: At rest the patient was given 10.84 millicuries of technetium 99m sestamibi injected intravenously. As per protocol rest non gated SPECT images were obtained. Subsequently the patient was given intravenous Lexiscan at a dose of 0.4 mg in 5 mL intravenously, followed by flush with normal saline. Subsequently the stress dose of 32.1 millicuries of technetium 99m sestamibi was injected intravenously. As per protocol stress gated images were obtained. Nuclear interpretation: Review of images showed that all segments of the myocardium had normal perfusion at rest, and normal perfusion post stress with IV Lexiscan. All segments of the myocardium had normal motion, contraction, and thickening by gated study. T. I D. ratio was normal at 0.84. Computer read rest, and stress left ventricular ejection fraction were 46 %, and 47 %, respectively. Visually both the stress and rest ejection fractions were slightly reduced with mild diffuse hypo-kyphosis, with ejection fraction around approximately 45%.. Conclusion: 1. There is no scintigraphic evidence of Lexiscan induced myocardial ischemia. 2. There is no scintigraphic evidence of myocardial infarction/scar. 3. There were EKG changes of ischemia induced by Lexiscan. 4. Evidence of mild cardiomyopathy with LV ejection fraction of 45%. Correlate with echo findings for LV ejection fraction. Recommendations: 1. In spite of a normal perfusion scan, with the EKG changes with IV IV Lexiscan, makes the patient is slightly higher risk for cardiac events in future compared to patients with normal EKG response and normal perfusion by Cardiolite imaging. 2. In spite of this the patient will be an acceptable cardiac risk for his proposed right hip fracture surgery under spinal anesthesia. 3. Postoperatively we will monitor the patient on telemetry unit, and get serial EKGs and enzymes. 4.Aggressive risk factor modification, and treating the underlying co- morbidities. Discussed the above with the patient and patient's son. Discussed with Dr. Sanz the orthopedist. CHANDRAKANT
[2016-08-22] MEDS ORDERED: FENTANYL CITRATE INJ/PF 100 MCG/2 ML AMPUL ONE (12:47)
[2016-08-22] MEDS ORDERED: KETAMINE HCL INJ 500 MG/10 ML VIAL ONE (12:47)
[2016-08-22] MEDS ORDERED: MIDAZOLAM 2 MG/2 ML INJ ONE (12:47)
[2016-08-22] MEDS ORDERED: EPHEDRINE SULFATE INJ 50 MG/1 ML AMPULE ONE (12:47)
[2016-08-22] MEDS ORDERED: PROPOFOL INJ 200 MG/20 ML VIAL IV ONE (12:48)
[2016-08-22] MEDS ORDERED: IBUPROFEN INJ 800 MG/8 ML VIAL IV ONE (12:48)
[2016-08-22] MEDS ORDERED: ACETAMINOPHEN 100 ML IV ONE (12:48)
--- NOTE | 2016-08-22 12:57 | PDOC PROGRESS REPORT ---
Subjective Progress Note for:: 08/22/16 Subjective:: Patient was seen by the bedside, she is scheduled for ORIF today, she was seen by the product delivery specialist, Dr. Montero for preoperative risk assessment. She had a stress test this morning, this was negative for any reversible ischemia. Physical Exam Vital Signs: Temp Pulse Resp BP Pulse Ox 98.8 F 92 18 123/68 97 08/22/16 08:00 08/22/16 08:03 08/22/16 08:03 08/22/16 08:00 08/22/16 08:03 Intake & Output 08/21/16 08/22/16 08/23/16 06:59 06:59 06:59 Intake Total 3033 3301 Output Total 1150 2200 Balance 1883 1101 Weight 49.2 kg 48.7 kg General appearance: PRESENT: no acute distress Eye exam: PRESENT: PERRLA Respiratory exam: PRESENT: clear to auscultation luci Cardiovascular exam: PRESENT: +S1, +S2 GI/Abdominal exam: PRESENT: soft Results Laboratory Results: 08/20/16 09:19 08/20/16 09:19 08/21/16 04:04 Troponin I 0.017 Impressions: Chest X-Ray 08/19/16 19:41 IMPRESSION: COPD. NO ACUTE RADIOGRAPHIC FINDING IN THE CHEST. Head CT 08/19/16 19:41 IMPRESSION: NORMAL BRAIN CT WITHOUT CONTRAST. Hip X-Ray 08/19/16 19:41 IMPRESSION: ACUTE INTERTROCHANTERIC FRACTURE OF THE RIGHT HIP. OLD POSTTRAUMATIC AND POST SURGICAL CHANGES IN THE LEFT HIP. Chest/Abdomen CTA 08/20/16 00:00 IMPRESSION: Obstructive lung disease No CT angio evidence of acute pulmonary emboli or thoracic aortic dissection Assessment & Plan - Diagnosis (1) CAD (coronary artery disease) Qualifiers: Coronary Disease-Associated Artery/Lesion type: [place] artery Associated angina: without angina Is this a current diagnosis for this admission?: Yes (2) Chronic obstructive lung disease Qualifiers: COPD type: unspecified COPD Qualified Code(s): J44.9 - Chronic obstructive pulmonary disease, unspecified Is this a current diagnosis for this admission?: Yes (3) Closed right hip fracture Qualifiers: Encounter type: initial encounter Qualified Code(s): S72.001A - Fracture of unspecified part of neck of right femur, initial encounter for closed fracture Is this a current diagnosis for this admission?: Yes (4) Laceration of face without complication Qualifiers: Encounter type: subsequent encounter Qualified Code(s): S01.81XD - Laceration without foreign body of other part of head, subsequent encounter Is this a current diagnosis for this admission?: Yes (5) Mixed anxiety and depressive disorder Is this a current diagnosis for this admission?: Yes (6) Old non-ST elevation myocardial infarction (NSTEMI) Is this a current diagnosis for this admission?: Yes
[2016-08-22] MEDS ORDERED: CEFAZOLIN 2 GM/D5W RTU 2 GM/50 ML RTUPB IV ONE (13:00)
[2016-08-22] MEDS ORDERED: DIPHENHYDRAMINE HCL 50 MG/ML VIAL IV PRN (13:48)
[2016-08-22] MEDS ORDERED: PROMETHAZINE HCL INJ 25 MG/1 ML VIAL IV PRN ×2 (13:48)
[2016-08-22] MEDS ORDERED: FENTANYL CITRATE INJ/PF 100 MCG/2 ML AMPUL IV PRN ×2 (13:48)
[2016-08-22] MEDS ORDERED: MEPERIDINE HCL/PF INJ 25 MG/1 ML DISP.SYRIN IV PRN (13:48)
--- NOTE | 2016-08-22 13:53 | Operative Report ---
Operative Report DATE OF SURGERY: 08/22/16 PREOPERATIVE DIAGNOSIS: Right intertrochanteric femur fracture OPERATION: Reduction internal fixation of right intertrochanteric femur fracture SURGEON: IMER KEATING ANESTHESIA: Spinal ESTIMATED BLOOD LOSS: 100 PROCEDURE: The patient supine on the fracture table the right lower extremity is manipulated under fluoroscopic guidance to affected near anatomic reduction of the intertrochanteric femur fracture in 2 planes. Subsequently the skin was prepped and draped in a sterile fashion. A pin is placed percutaneously through the skin down through the greater trochanter into the proximal femoral metadiaphysis. A combined reamer is then used to fashion a cortical opening. Ball-tipped guide danica was placed down the femur and the femoral depth is measured to be 340 mm. Subsequently a Cambridge gamma 3 nail 340 mm x 11 mm x 125 was advanced over the ball-tipped guide danica to appropriate depth the proximal interlock. 85 mm proximal interlock was placed uneventfully. Under fluoroscopic guidance freehand a distal 52.5 mm interlock is placed. The entire fracture reduction and hardware placement are reviewed fluoroscopically and felt to be adequate. The wounds are irrigated and closed with interrupted Vicryl followed by fransisco. A sterile compressive dressing was applied and patient's return to the PACU in satisfactory condition.
[2016-08-22] MEDS ORDERED: METOPROLOL TARTRATE PF/INJ 5 MG/5 ML SDV IV ONE ×2 (14:00→14:04)
--- NOTE | 2016-08-22 14:22 | RADIOLOGY REPORT (SQ) ---
EXAM DESCRIPTION: NO CHG FLUORO; HIP IN OPERATING RM COMPLETED DATE/TIME: 08/22/2016 2:10 pm REASON FOR STUDY: ORIF RT HIP ASSISTED WITH FLUORO IN OR COMPARISON: 08/19/2016. FLUOROSCOPY TIME: 0.5 minutes. 4 images saved to PACS. TECHNIQUE: Intra-operative images acquired during surgical procedure to evaluate progress. NUMBER OF IMAGES: 4 images. LIMITATIONS: None. FINDINGS: Surgical fixation of the intertrochanteric fracture of the right hip with placement of vibha dware. IMPRESSION: IMAGE(S) OBTAINED DURING PROCEDURE. COMMENT: Quality ID [id number]: Final reports for procedures using fluoroscopy that document radiation exp osure indices, or exposure time and number of fluorographic images (if radiation exposure indices are not available) Please consult full operative report of the attending physician for description of the procedure. TECHNICAL DOCUMENTATION: JOB ID: [id number] [employer]- All Rights Reserved
[2016-08-22] MEDS ORDERED: METOPROLOL TARTRATE PF/INJ 5 MG/5 ML SDV IV PRN (14:49)
--- NOTE | 2016-08-22 16:09 | PROGRESS NOTE E ---
Progress Note NAME: SUSAN BINGHAM : 1940 AGE: 75Y DATE: 08/22/2016 ROOM: 332 SUBJECTIVE: Note that the patient has no chest pain or discomfort. There is no PND, orthopnea. There is no arrhythmia seen on the monitor. There is no chest pain or discomfort. There are no TIA or CVA symptoms. Note that the patient had a Lexiscan Cardiolite stress test done today without any problems. Please see report for details later. OBJECTIVE: GENERAL: On examination, the patient appears to be chronically ill and cachectic but she is otherwise in no acute distress. VITAL SIGNS: She is afebrile with a temperature of 98.8 degrees Fahrenheit. Pulse is 70 beats per minute. Blood pressure 123/68. Respirations are 20 per minute. O2 sats are 96% on 2 liters nasal cannula. HEENT: Head is atraumatic, normocephalic. Eyes, pupils are equal, round, regular. Reactive to light accommodation. Extraocular movements are normal. There is no conjunctival pallor. There is no scleral icterus. ENT is negative. NECK: Supple. There is no JVD. Carotids are equal. There is no bruit. There is no lymphadenopathy. There is no goiter. Trachea central. LUNGS: Show no evidence of accessory muscles of respiration in use. There is diminished air entry and prolonged expiration on auscultation. On percussion, there is hyperresonance and some chest wall tenderness. CARDIOVASCULAR: S1 and S2 are heard. There is no S3 gallop. There is no S4 gallop. There is systolic murmur in the left sternal border at the apex. There is no rub. ABDOMEN: Soft, nontender. There is no hepatosplenomegaly. Bowel sounds are well heard. There are no tender areas, masses. EXTREMITIES: Femorals are diminished. There are no femoral bruits. Leg pulses are diminished. There is no pedal edema. There is no DVT or cellulitis. There is no calf tenderness. CENTRAL NERVOUS SYSTEM: The patient is conscious, awake, alert. Oriented x3 with no focal deficit. PSYCHIATRIC: The patient's judgement seem to be intact. Judgment and insight seem to intact and normal. The patient does not appear to be agitated or depressed. IMPRESSION: 1. CLOSED RIGHT FRACTURE FOR SURGERY. 2. COPD ON HOME OXYGEN. 3. ABNORMAL EKG SUGGESTIVE OF ISCHEMIA OF ANTERIOR WALL. The patient is for stress test today, which has been done. See addendum for a report of stress test. 4. CHRONIC RESPIRATORY FAILURE WITH HYPOXEMIA PRESENT, REMAINS STABLE. No evidence of acute exacerbation COPD. 5. NO SIGNIFICANT CORONARY ARTERY DISEASE PER HISTORY. 6. ELEVATED TROPONIN I 2 MONTHS AGO SECONDARY TO TYPE 2 SUPPLY DEMAND MISMATCH ISSUE RATHER THAN A [id number]-WC-[id number] WI. The patient did not have a cardiac catheterization at [facility] where she was transferred. This was thought to be due to acute exacerbation of COPD causing elevation in her troponin I. 7. 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 No syncope after the pacemaker. 8. HISTORY OF PERMANENT PACEMAKER PLACEMENT. Pacemaker functioning well. 9. HYPERTENSION, WELL CONTROLLED. 10. HISTORY OF [id number] SYNDROME WITH NO ACUTE CLINICAL EXACERBATION OF THE DISEASE. 11. HYPERLIPIDEMIA. 12. MIXED ANXIETY AND DEPRESSIVE DISORDER. 13. CARDIOMYOPATHY WITH MILDLY REDUCED LV EJECTION FRACTION. 14. PAST HISTORY OF PULMONARY EMBOLISM. 15. MODERATE PULMONARY HYPERTENSION. 16. PREOPERATIVE CARDIAC ASSESSMENT. RECOMMENDATIONS: Continue current treatment. Would start the patient on Toprol XL 25 mg p.o. now and daily for cardiac protection. ADDENDUM: Note, I have reviewed the Cardiolite nuclear images. The patient had no chest pain or discomfort and the IV Lexiscan was given intravenously but the patient did have [address] segment depression, Lexiscan suggestive of ischemia but scintigraphic imaging, that is nuclear imaging, did not show any reversible ischemia or WI or scar. There is mild global hypokinesis with an LV ejection fraction of 43%, consistent with mild cardiomyopathy. In view of this, the patient would be an acceptable cardiac risk for this surgery of the right hip fracture under spinal anesthesia. Postoperatively, would get serial EKGs and enzymes to be on the safe side. Note, although the patient's nuclear imaging shows no evidence of WI or ischemia, in view of the patient's EKG changes, the patient is at slightly higher future cardiac events compared with patients who have normal perfusion and no EKG changes with IV Lexiscan. This has been discussed with the patient and the patient's son, discussed with Dr. Sanz and discussed with the anesthesiologist. Note, 35 minutes spent on this patient, more than 50% of the time spent on direct patient care. Also, discussions of the stress test with the patient and the patient's son, and also the echo findings with them. Also, medications have been reviewed and medications have been added. Note, highly complex medical decision making involved in this case. Will follow with you. Postoperatively, would recommend that the patient be monitored on telemetry and get serial EKGs and cardiac enzymes. DICTATING PHYSICIAN: DORCAS ZHAO M.D. [id number] PHY#: [id number] ID: [id number] JOB#: [id number] ACCT: [id number] cc: >
[2016-08-22] MEDS: OXYCODONE HCL IR 5 MG TABLET PO PRN ×2 (17:46→23:21)
[2016-08-22] MEDS: HYDROCODONE/ACETAMINOPHEN 5-325 MG TABLET PO PRN (20:03)
[2016-08-22] MEDS: CEFAZOLIN 2 GM/D5W RTU 2 GM/50 ML RTUPB IV SCH (21:57)
[2016-08-23] MEDS: HYDROCODONE/ACETAMINOPHEN 5-325 MG TABLET PO PRN ×2 (03:37→10:06)
[2016-08-23] MEDS: CEFAZOLIN 2 GM/D5W RTU 2 GM/50 ML RTUPB IV SCH (05:21)
[2016-08-23] MEDS: LANSOPRAZOLE 30 MG TAB.RAP.DR PO SCH (05:21)
[2016-08-23 06:17] LABS: ABSOLUTE LYMPHOCYTES (AUTO) 1.2 10^3/uL (0.5-4.7); ABSOLUTE MONOCYTES (AUTO) 1.5 10^3/uL (0.1-1.4); ABSOLUTE NEUT (AUTO) 11.7 10^3/uL (1.7-8.2); BASOPHILS % (AUTO) 0.1 % (0-2); EOSINOPHILS % (AUTO) 0.1 % (0-6); HEMATOCRIT 26.7 % (36.0-47.0); HGB HCT DIFFERENCE -1.2; LYMPHOCYTES % (AUTO) 8.5 % (13-45); MEAN CORPUSCULAR HEMOGLOBIN 27.7 pg (27.0-33.4); MEAN CORPUSCULAR HGB CONC 31.7 g/dL (32.0-36.0); MEAN CORPUSCULAR VOLUME 87 fl (80-97); MONOCYTES % (AUTO) 10.3 % (3-13); RED BLOOD COUNT 3.06 10^6/uL (3.72-5.28); RED CELL DISTRIBUTION WIDTH 16.7 % (11.5-14.0); WHITE BLOOD COUNT 14.4 10^3/uL (4.0-10.5)
[2016-08-23 06:30] LABS: ANION GAP 6 (5-19); BLOOD UREA NITROGEN 16 mg/dL (7-20); CALCIUM 8.5 mg/dL (8.4-10.2); CARBON DIOXIDE 26 mmol/L (22-30); CHLORIDE 107 mmol/L (98-107); CREATININE RESULT 0.84 mg/dL (0.52-1.25); GLUCOSE 94 mg/dL (75-110); POTASSIUM 4.1 mmol/L (3.6-5.0); SODIUM 138.6 mmol/L (137-145)
[2016-08-23 06:31] LABS: HEMOGLOBIN 8.5 g/dL (12.0-15.5)
[2016-08-23] MEDS: IPRATROPIUM/ALBUTEROL 0.5-2.5 MG/3 ML AMPUL NEB SCH ×2 (07:58→15:56)
[2016-08-23] MEDS: BUDESONIDE NEB 0.25 MG/2 ML AMPUL NEB SCH ×2 (07:58→20:25)
[2016-08-23] MEDS: ONDANSETRON HCL INJ/PF 4 MG/2 ML SDV IV PRN ×2 (08:37→18:05)
[2016-08-23] MEDS: OXYCODONE HCL IR 5 MG TABLET PO PRN ×3 (08:38→22:20)
[2016-08-23] MEDS: OXYCODONE-ACETAMINOPHEN 5-325 MG TABLET PO PRN ×3 (08:38→18:07)
[2016-08-23 09:34] LABS: ABSOLUTE LYMPHOCYTES (AUTO) 1.9 10^3/uL (0.5-4.7); ABSOLUTE MONOCYTES (AUTO) 1.3 10^3/uL (0.1-1.4); ABSOLUTE NEUT (AUTO) 10.6 10^3/uL (1.7-8.2); BASOPHILS % (AUTO) 0.1 % (0-2); EOSINOPHILS % (AUTO) 0.2 % (0-6); HEMATOCRIT 26.4 % (36.0-47.0); HEMOGLOBIN 8.3 g/dL (12.0-15.5); HGB HCT DIFFERENCE -1.5; LYMPHOCYTES % (AUTO) 13.9 % (13-45); MEAN CORPUSCULAR HEMOGLOBIN 27.7 pg (27.0-33.4); MEAN CORPUSCULAR HGB CONC 31.5 g/dL (32.0-36.0); MEAN CORPUSCULAR VOLUME 88 fl (80-97); MONOCYTES % (AUTO) 9.2 % (3-13); RED CELL DISTRIBUTION WIDTH 16.6 % (11.5-14.0); SEGMENTED NEUTROPHILS % (AUTO) 76.6 % (42-78); WHITE BLOOD COUNT 13.9 10^3/uL (4.0-10.5)
[2016-08-23] MEDS: ENOXAPARIN SODIUM INJ 30 MG/0.3 ML DISP.SYRIN SUBCUT SCH (10:11)
--- NOTE | 2016-08-23 12:17 | EKG REPORT ---
SEVERITY:- ABNORMAL ECG - SINUS RHYTHM BORDERLINE LEFT AXIS DEVIATION NONSPECIFIC T ABNORMALITIES, ANTERIOR LEADS : Confirmed by: Mervat Mancuso 23-Aug-2016 12:17:05
[2016-08-23] MEDS: METOPROLOL SUCCINATE 25 MG TAB.SR.24H PO SCH (13:52)
--- NOTE | 2016-08-23 18:37 | PDOC PROGRESS REPORT ---
Subjective Progress Note for:: 08/23/16 Subjective:: Patient reported frequent episodes of nausea but no vomiting. P.O intake remain a challenge. No abdominal pain. No chest pain. Breathing fairly satisfactory on supplemental oxygen via nasal canula. No fever or chills. Physical Exam Vital Signs: Temp Pulse Resp BP Pulse Ox 97.5 F 85 18 107/61 95 08/23/16 15:14 08/23/16 15:59 08/23/16 15:59 08/23/16 15:14 08/23/16 15:59 Intake & Output 08/22/16 08/23/16 08/24/16 06:59 06:59 06:59 Intake Total 3301 1225 0 Output Total 2200 830 150 Balance 1101 395 -150 Weight 48.7 kg 48.3 kg General appearance: PRESENT: no acute distress, cooperative, well-developed, well-nourished Head exam: PRESENT: atraumatic, normocephalic Eye exam: PRESENT: conjunctiva pink, EOMI, PERRLA. ABSENT: scleral icterus Respiratory exam: PRESENT: clear to auscultation luci, decreased breath sounds Cardiovascular exam: PRESENT: RRR. ABSENT: diastolic murmur, rubs, systolic murmur GI/Abdominal exam: PRESENT: normal bowel sounds, soft. ABSENT: distended, guarding, mass, organolmegaly, rebound, tenderness Extremities exam: ABSENT: pedal edema Neurological exam: PRESENT: alert, awake, oriented to person, oriented to place , oriented to time, oriented to situation, CN II-XII grossly intact. ABSENT: motor sensory deficit Psychiatric exam: PRESENT: appropriate affect, normal mood. ABSENT: homicidal ideation, suicidal ideation Skin exam: PRESENT: dry, warm, other - right hip region surgical site dressing okay. Results Laboratory Results: 08/23/16 09:15 08/23/16 05:49 08/23/16 08/23/16 08/23/16 05:49 05:49 09:15 WBC 14.4 H 13.9 H RBC 3.06 L 3.00 L Hgb 8.5 L D 8.3 L Hct 26.7 L 26.4 L MCV 87 88 MCH 27.7 27.7 MCHC 31.7 L 31.5 L RDW 16.7 H 16.6 H Plt Count 213 227 Seg Neutrophils % 81.0 H 76.6 Lymphocytes % 8.5 L 13.9 Monocytes % 10.3 9.2 Eosinophils % 0.1 0.2 Basophils % 0.1 0.1 Absolute Neutrophils 11.7 H 10.6 H Absolute Lymphocytes 1.2 1.9 Absolute Monocytes 1.5 H 1.3 Absolute Eosinophils 0.0 0.0 Absolute Basophils 0.0 0.0 Sodium 138.6 Potassium 4.1 Chloride 107 Carbon Dioxide 26 Anion Gap 6 BUN 16 Creatinine 0.84 Est GFR ( Amer) > 60 Est GFR (Non-Af Amer) > 60 Glucose 94 Calcium 8.5 08/21/16 08/23/16 04:04 11:05 Troponin I 0.017 0.017 Impressions: Chest X-Ray 08/19/16 19:41 IMPRESSION: COPD. NO ACUTE RADIOGRAPHIC FINDING IN THE CHEST. Head CT 08/19/16 19:41 IMPRESSION: NORMAL BRAIN CT WITHOUT CONTRAST. Chest/Abdomen CTA 08/20/16 00:00 IMPRESSION: Obstructive lung disease No CT angio evidence of acute pulmonary emboli or thoracic aortic dissection Fluoroscopy 08/22/16 00:00 IMPRESSION: IMAGE(S) OBTAINED DURING PROCEDURE. Hip X-Ray 08/22/16 00:00 IMPRESSION: IMAGE(S) OBTAINED DURING PROCEDURE. Assessment & Plan - Diagnosis (1) Closed right hip fracture Qualifiers: Encounter type: initial encounter Qualified Code(s): S72.001A - Fracture of unspecified part of neck of right femur, initial encounter for closed fracture Is this a current diagnosis for this admission?: Yes (2) Laceration of face without complication Qualifiers: Encounter type: subsequent encounter Qualified Code(s): S01.81XD - Laceration without foreign body of other part of head, subsequent encounter Is this a current diagnosis for this admission?: Yes (3) COPD (chronic obstructive pulmonary disease) Qualifiers: COPD type: COPD with acute exacerbation Qualified Code(s): J44.1 - Chronic obstructive pulmonary disease with (acute) exacerbation Is this a current diagnosis for this admission?: Yes (4) Chronic respiratory failure with hypoxia and hypercapnia Is this a current diagnosis for this admission?: Yes (5) CAD (coronary artery disease) Qualifiers: Coronary Disease-Associated Artery/Lesion type: [place] artery Associated angina: without angina Is this a current diagnosis for this admission?: Yes (6) Old non-ST elevation myocardial infarction (NSTEMI) Is this a current diagnosis for this admission?: Yes (8) HTN (hypertension) Qualifiers: Hypertension type: essential hypertension Qualified Code(s): I10 - Essential (primary) hypertension Is this a current diagnosis for this admission?: Yes (9) Nvrld-Sdivfixsn-Glsbp syndrome Is this a current diagnosis for this admission?: Yes (10) HLD (hyperlipidemia) Qualifiers: Hyperlipidemia type: pure hypercholesterolemia Qualified Code(s): E78.00 - Pure hypercholesterolemia, unspecified; E78.0 - Pure hypercholesterolemia Is this a current diagnosis for this admission?: Yes (11) Mixed anxiety and depressive disorder Is this a current diagnosis for this admission?: Yes - Time Time Spent with patient: 25-34 minutes Medications reviewed and adjusted accordingly: Yes Anticipated discharge: SNF - short term rehabilitation Within: Other - Inpatient Certification Based on my medical assessment, after consideration of the patient's comorbidities, presenting symptoms, or acuity I expect that the services needed warrant INPATIENT care.: Yes I certify that my determination is in accordance with my understanding of Medicare's requirements for reasonable and necessary INPATIENT services [42 CFR 412.3e].: Yes Medical Necessity: Need Close Monitoring Due to Risk of Patient Decompensation, Need For IV Fluids, Need For Continuous Telemetry Monitoring, Need for Nebulizer Therapy and Monitoring of Response, Need for Pain Control, Risk of Complication if Not Cared For in Hospital Post Hospital Care: D/C or Transfer Summary - Plan Summary Plan Summary: Start on Tigan 300 mg p.o tid. Maintain on IV Zofran on prn basis for nausea management. Resume preadmission medication as indicated. Continue all other current medication management. Discussed with patent and daughter agreeable to SNF placement for rehabilitation.
[2016-08-23] MEDS ORDERED: DOCUSATE SODIUM 100 MG CAPSULE PO PRN (18:48)
[2016-08-23] MEDS ORDERED: ZOLPIDEM TARTRATE 5 MG TABLET PO PRN (18:48)
[2016-08-23] MEDS ORDERED: ALBUTEROL SULFATE 0.083% NEB 2.5 MG/3 ML AMPUL NEB PRN (18:48)
[2016-08-23] MEDS ORDERED: TRIMETHOBENZAMIDE HCL 300 MG CAPSULE PO ONE (20:00)
[2016-08-23] MEDS: BUSPIRONE HCL 10 MG TABLET PO SCH (21:01)
[2016-08-23] MEDS: ROPINIROLE HCL 1 MG TABLET PO SCH (21:02)
[2016-08-23] MEDS: ACETAZOLAMIDE 250 MG TABLET PO SCH (21:02)
[2016-08-23] MEDS: APIXABAN 2.5 MG TABLET PO SCH (21:03)
[2016-08-23] MEDS: ROFLUMILAST 500 MCG TABLET PO SCH (21:03)
[2016-08-23] MEDS ORDERED: TIOTROPIUM BROMIDE DPI 5 CAP/KIT (18 MCG/CAP) IH SCH (22:00)
[2016-08-23] MEDS ORDERED: (PENDING PHARMACY ID) (Buspirone Hcl [Buspar 15 Mg Tablet] 7.5 MG) PO SCH (22:00)
[2016-08-23] MEDS ORDERED: (PENDING PHARMACY ID) (Roflumilast [Daliresp 500 Mcg Tablet] 500 MCG) PO SCH (22:00)
[2016-08-23] MEDS: FLUTICASONE/SALMETEROL DISKUS 250-50 MCG/DOSE IH SCH (22:22)
--- NOTE | 2016-08-23 22:23 | Pulmonary Function Test ---
Pulmonary Function Test Date of Procedure:: 08/20/16 INDICATION:: dyspnea Referring Provider: fabrizio - Report Spirometry: FVC 1.44L 57% postbronchodialator FVC 1.93L 44% FEV1 0,60 L 32% postbronchodialator FEV! 0.83 L 44% FEV1/FVC 42% postbronchodialator 36% predicted 75% Impression: Severe obstructive ventilation defect
--- NOTE | 2016-08-23 22:24 | PROGRESS NOTE E ---
Progress Note NAME: SUSAN BINGHAM : 1940 AGE: 75Y DATE: 08/23/2016 ROOM: 332 SUBJECTIVE: The patient did have surgery yesterday and she is doing well. She has no chest pain or discomfort. No shortness of breath. There is no PND, orthopnea. There are no anginal symptoms. There is no evidence of NM by troponin I. Her EKG continues to show T-wave inversion in the anterior leads which are nonspecific. There are no arrhythmias on the monitor. There are no TIA or CVA symptoms. OBJECTIVE: GENERAL: On examination, the patient appears to be chronically ill and cachectic. VITAL SIGNS: She is afebrile with a temperature of 97.7 degrees Fahrenheit. Pulse is 80 beats per minute. Blood pressure is 113/61. Respirations are 18 per minute. O2 saturations are 99% on 2 L nasal cannula. HEENT: Head is atraumatic, normocephalic. Eyes; pupils are equal, round, regular, reactive to light and accommodation. Extraocular movements are normal. There is no conjunctival pallor. There is no scleral icterus. ENT is negative. NECK: Supple. There is no JVD. Carotids are equal. There is no bruit. There is no lymphadenopathy. There is no goiter. Trachea is central. LUNGS: Showed no evidence of accessory muscles of respiration in use. There is diminished air entry and prolonged expiration on auscultation. On percussion there is hyperresonance and there is no chest wall tenderness. There are no rhonchi, rales, or wheezing. CARDIOVASCULAR: S1 and S2 is heard. There is no S3 gallop. There is no S4 gallop. There is systolic murmur in the left sternal border at the apex. There is no rub. ABDOMEN: Soft, nontender. There is no hepatosplenomegaly. Bowel sounds are well heard. There are no tender areas or masses. EXTREMITIES: Femorals are diminished. There are no femoral bruits. Leg pulses are diminished. There is no pedal edema. There is no DVT or cellulitis. There is no calf tenderness. CENTRAL NERVOUS SYSTEM: The patient is conscious, awake, alert, oriented x3 with no focal deficit. PSYCHIATRIC: The patient's judgement and insight seem to be intact. Her affect is normal. LABORATORY DATA: The patient's white count is 30,900; hemoglobin is 8.3; hematocrit is 36.4; and her platelet count is 237,000. The patient's sodium is 138.6, potassium 4.1, chloride 107, CO2 is 26. The patient's BUN is 16, creatinine 0.84, GFR is greater than 60, glucose is 94, and her calcium is 8.5. Her cardiac enzymes in the form of troponin is negative x2 with a value of 0.017 and 0.017. IMPRESSION: 1. CLOSED FRACTURE RIGHT HIP. The patient had surgery. 2. COPD ON HOME OXYGEN. The patient at presented without any evidence of acute exacerbation of COPD. 3. ABNORMAL EKG SUGGESTIVE OF ISCHEMIA OF ANTERIOR WALL. The patient's stress test was negative. The patient is without any anginal symptoms. 4. CHRONIC RESPIRATORY FAILURE WITH HYPOXEMIA PRESENT, REMAINS STABLE. No evidence of acute exacerbation COPD. 5. NO SIGNIFICANT CORONARY ARTERY DISEASE PER HISTORY. 6. ELEVATED TROPONIN I IN JUNE 2016, THOUGHT TO BE SECONDARY TO TYPE 2 NM AND NOT A [id number] NM. 7. SICK SINUS SYNDROME WITH TACHYCARDIA AND BRADYCARDIA WITH HISTORY OF SYNCOPE WITH BRADYCARDIA, STATUS POST PERMANENT PACEMAKER. No syncope after the pacemaker. 8. HISTORY OF PERMANENT PACEMAKER PLACEMENT. Pacemaker functioning well. 9. HYPERTENSION, WELL-CONTROLLED. 10. HISTORY OF [id number] SYNDROME WITH NO ACUTE CLINICAL EXPRESSION OF THE DISEASE. 11. HYPERLIPIDEMIA. 12. MIXED ANXIETY AND DEPRESSIVE DISORDER. 13. CARDIOMYOPATHY WITH MILDLY REDUCED LV EJECTION FRACTION. 14. PAST HISTORY OF PULMONARY EMBOLISM. 15. MODERATE PULMONARY HYPERTENSION. RECOMMENDATIONS: Continue the patient on Eliquis 2.5 mg p.o. q.12 hours. Continue her pulmonary treatment. Continue the patient on metoprolol and continue her respiratory treatments including Daliresp 500 mcg p.o. at bedtime and ropinirole. TIME SPENT: Twenty-five minutes spent on this patient with more than 50% of the time spent on direct patient care. Note. the patient is a moderately complex medical decision making. Medications have been reviewed. The case discussed with the other caregiving providers on the case. We will follow with you. DICTATING PHYSICIAN: DORCAS ZHAO M.D. [id number] BUDDY#: [id number] ID: [id number] JOB#: [id number] ACCT: [id number] cc: >
[2016-08-24] MEDS: IPRATROPIUM/ALBUTEROL 0.5-2.5 MG/3 ML AMPUL NEB SCH ×4 (00:43→23:54)
[2016-08-24] MEDS: ROPINIROLE HCL 1 MG TABLET PO SCH ×3 (05:20→21:07)
[2016-08-24] MEDS: BUSPIRONE HCL 10 MG TABLET PO SCH ×3 (05:20→21:07)
[2016-08-24] MEDS: LANSOPRAZOLE 30 MG TAB.RAP.DR PO SCH (05:20)
[2016-08-24] MEDS: OXYCODONE HCL IR 5 MG TABLET PO PRN ×2 (05:23→17:20)
--- NOTE | 2016-08-24 07:08 | PDOC PROGRESS REPORT ---
Subjective Progress Note for:: 08/24/16 Subjective:: Patient complains of minor discomfort. Physical Exam Vital Signs: Temp Pulse Resp BP Pulse Ox 36.7 C 74 18 126/62 H 98 08/24/16 04:09 08/24/16 06:58 08/24/16 04:09 08/24/16 04:09 08/24/16 04:09 Intake & Output 08/23/16 08/24/16 08/25/16 06:59 06:59 06:59 Intake Total 1225 682 Output Total 830 1150 Balance 395 -468 Weight 48.3 kg Extremities exam: PRESENT: other - Right lower extremity dressings intact. Leg lengths are equal. Distal neurovascular examination is intact. Results Laboratory Results: 08/23/16 09:15 08/23/16 05:49 08/23/16 09:15 WBC 13.9 H RBC 3.00 L Hgb 8.3 L Hct 26.4 L MCV 88 MCH 27.7 MCHC 31.5 L RDW 16.6 H Plt Count 227 Seg Neutrophils % 76.6 Lymphocytes % 13.9 Monocytes % 9.2 Eosinophils % 0.2 Basophils % 0.1 Absolute Neutrophils 10.6 H Absolute Lymphocytes 1.9 Absolute Monocytes 1.3 Absolute Eosinophils 0.0 Absolute Basophils 0.0 08/21/16 08/23/16 04:04 11:05 Troponin I 0.017 0.017 Impressions: Chest X-Ray 08/19/16 19:41 IMPRESSION: COPD. NO ACUTE RADIOGRAPHIC FINDING IN THE CHEST. Head CT 08/19/16 19:41 IMPRESSION: NORMAL BRAIN CT WITHOUT CONTRAST. Chest/Abdomen CTA 08/20/16 00:00 IMPRESSION: Obstructive lung disease No CT angio evidence of acute pulmonary emboli or thoracic aortic dissection Fluoroscopy 08/22/16 00:00 IMPRESSION: IMAGE(S) OBTAINED DURING PROCEDURE. Hip X-Ray 08/22/16 00:00 IMPRESSION: IMAGE(S) OBTAINED DURING PROCEDURE. Assessment & Plan - Diagnosis (1) Closed right hip fracture Qualifiers: Encounter type: initial encounter Qualified Code(s): S72.001A - Fracture of unspecified part of neck of right femur, initial encounter for closed fracture Is this a current diagnosis for this admission?: YesPlan: Limited progress with physical therapy yesterday. Hematocrit remains above 26% . Plan for transfer to a fpc facility when medically appropriate. - Time Time Spent with patient: 15-24 minutes Anticipated discharge: SNF Within: Other
[2016-08-24] MEDS: BUDESONIDE NEB 0.25 MG/2 ML AMPUL NEB SCH ×2 (08:43→20:43)
[2016-08-24] MEDS ORDERED: (PENDING PHARMACY ID) (Citalopram Hydrobromide [Celexa 40 Mg Tablet] 40 MG) PO SCH (10:00)
[2016-08-24] MEDS: FLUTICASONE/SALMETEROL DISKUS 250-50 MCG/DOSE IH SCH ×2 (10:22→21:07)
[2016-08-24] MEDS: TIOTROPIUM BROMIDE DPI 5 CAP/KIT (18 MCG/CAP) IH SCH (10:23)
[2016-08-24] MEDS: PREGABALIN 50 MG CAPSULE PO SCH (10:24)
[2016-08-24] MEDS: TRIMETHOBENZAMIDE HCL 300 MG CAPSULE PO SCH ×3 (10:24→17:12)
[2016-08-24] MEDS: CITALOPRAM HYDROBROMIDE 20 MG TABLET PO SCH (10:24)
[2016-08-24] MEDS: MONTELUKAST SODIUM 10 MG TABLET PO SCH (10:24)
[2016-08-24] MEDS: APIXABAN 2.5 MG TABLET PO SCH ×2 (10:25→21:07)
[2016-08-24] MEDS: ACETAZOLAMIDE 250 MG TABLET PO SCH ×2 (10:25→21:07)
[2016-08-24] MEDS: METOPROLOL SUCCINATE 25 MG TAB.SR.24H PO SCH (13:12)
[2016-08-24] MEDS: ONDANSETRON HCL INJ/PF 4 MG/2 ML SDV IV PRN (13:12)
[2016-08-24] MEDS: HYDROCODONE/ACETAMINOPHEN 5-325 MG TABLET PO PRN (13:12)
--- NOTE | 2016-08-24 13:54 | PROGRESS NOTE E ---
Progress Note NAME: SUSAN BINGHAM : 1940 AGE: 75Y DATE: 08/24/2016 ROOM: 332 SUBJECTIVE: The patient denies any chest pain or discomfort. Her breathing is baseline. There is no acute exacerbation of COPD. There is no PND or orthopnea. There are no anginal symptoms. There is no arrhythmia seen on the monitor. The patient is undergoing physiotherapy. She has some pain in the right side of the hip where she was operated on, but this is fairly well controlled with medication. She is working with Physiotherapy. There are no TIA or CVA symptoms. PHYSICAL EXAMINATION: GENERAL: The patient appears to be chronically ill and cachectic. VITAL SIGNS: She is afebrile with a temperature of 97.9 degrees Fahrenheit. Pulse is 82 beats per minute. Blood pressure is 134/67. Respirations are 20 per minute. O2 sats are 99% on room air. HEENT: Head is atraumatic, normocephalic. Eyes - Pupils are equal, round, regular, reactive to light and accommodation. Extraocular movements are normal. There is no conjunctival pallor. There is no scleral icterus. ENT is negative. NECK: Supple. There is no JVD. Carotids are equal. There is no bruit. There is no lymphadenopathy. There is no goiter. Trachea is central. LUNGS: Show diminished air entry and prolonged expiration on auscultation without any rhonchi, rales or wheezing. There is hyperresonance on percussion. There is no chest wall tenderness. There are no accessory muscles of respiration in use. HEART: S1 and S2 is heard. There is no S3 gallop. There is no S4 gallop. There is a systolic murmur at the left sternal border and the apex. There is no rub. ABDOMEN: Soft and nontender. There is no hepatosplenomegaly. Bowel sounds are well heard. There are no tender areas or masses. EXTREMITIES: Femorals are diminished. There are no femoral bruits. Leg pulses are diminished. There is no pedal edema. There is no DVT or cellulitis. There is no calf tenderness. The dressing on the right hip is dry. CENTRAL NERVOUS SYSTEM: The patient is conscious, awake, alert, and oriented x3 with no focal deficits. PSYCHIATRIC: The patient's judgement and insight are intact. Her affect is normal. DIAGNOSTICS: The patient's 24-hour intake is 682 mL and output is 1150 mL. IMPRESSION: 1. CLOSED FRACTURE OF THE RIGHT HIP, STATUS POST SURGERY. 2. COPD, ON HOME OXYGEN, AT PRESENT NO EVIDENCE OF ACUTE EXACERBATION OF COPD. 3. ABNORMAL EKG SUGGESTIVE OF ISCHEMIA OF THE ANTERIOR WALL, BUT THE PATIENT IS WITHOUT ANY CHEST PAIN AND THE STRESS TEST WAS NEGATIVE; HENCE, THIS COULD REPRESENT T-WAVE CHANGES SECONDARY TO "CARDIAC MEMORY" DUE TO PATIENT HAVING A PERMANENT PACEMAKER. 4. CHRONIC RESPIRATORY FAILURE WITH HYPOXEMIA, AT PRESENT REMAINS STABLE WITH GOOD O2 SATURATIONS ON NASAL OXYGEN. NO EVIDENCE OF ACUTE EXACERBATION OF COPD. 5. NO SIGNIFICANT CORONARY ARTERY DISEASE PER HISTORY AND NEGATIVE STRESS TEST RECENTLY. 6. 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 7. 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 NO SYNCOPE AFTER THE PACEMAKER HAS BEEN PLACED. 8. HISTORY OF PERMANENT PACEMAKER PLACEMENT. PACEMAKER FUNCTIONING WELL. 9. HYPERTENSION, WELL CONTROLLED. 10. HISTORY OF [id number]-[id number] SYNDROME WITH NO ACUTE OR CLINICAL EXPRESSION OF THE DISEASE. 11. HYPERLIPIDEMIA. 12. MIXED ANXIETY AND DEPRESSIVE DISORDER. 13. CARDIOMYOPATHY WITH MILDLY REDUCED LV EJECTION FRACTION. 14. PAST HISTORY OF PULMONARY EMBOLISM. 15. MODERATE PULMONARY HYPERTENSION. RECOMMENDATIONS: Continue the patient on Eliquis 2.5 mg p.o. every 12 hours. Continue pulmonary treatment. Continue her on metoprolol and continue respiratory treatments, including Daliresp 500 mcg p.o. at bedtime. Note, 25 minutes were spent with the patient with more than 50% of the time spent on direct patient care. The patient's cardiac status is stable and I will sign off. The patient is a patient of [facility]. She will follow up with me in the office after discharge. Note, her medications have been reviewed. I discussed the case with Dr. Jackson, the attending physician on record. Note, this was moderate complexity medical decision making involved in this case. I will follow the patient in the office. I will sign off. DICTATING PHYSICIAN: DORCAS ZHAO M.D. [id number] PHY#: [id number] ID: [id number] JOB#: [id number] ACCT: [id number] cc: >
--- NOTE | 2016-08-24 13:57 | PDOC PROGRESS REPORT ---
Subjective Progress Note for:: 08/24/16 Subjective:: Patient reported no significant episode of nausea or vomiting. Her P.O intake today if fair but remain a challenge. No abdominal pain. No chest pain. Breathing fairly satisfactory on supplemental oxygen via nasal canula. No fever or chills. Physical Exam Vital Signs: Temp Pulse Resp BP Pulse Ox 97.9 F 82 20 124/67 99 08/24/16 11:14 08/24/16 11:14 08/24/16 11:14 08/24/16 11:14 08/24/16 11:14 Intake & Output 08/23/16 08/24/16 08/25/16 06:59 06:59 06:59 Intake Total 1225 682 0 Output Total 830 1150 200 Balance 395 -468 -200 Weight 48.3 kg Physical Exam: General appearance: PRESENT: no acute distress, cooperative, well-developed, well-nourished Head exam: PRESENT: atraumatic, normocephalic Eye exam: PRESENT: conjunctiva pink, EOMI, PERRLA. ABSENT: scleral icterus Respiratory exam: PRESENT: clear to auscultation luci, decreased breath sounds Cardiovascular exam: PRESENT: RRR. ABSENT: diastolic murmur, rubs, systolic murmur GI/Abdominal exam: PRESENT: normal bowel sounds, soft. ABSENT: distended, guarding, mass, organolmegaly, rebound, tenderness Extremities exam: ABSENT: pedal edema Neurological exam: PRESENT: alert, awake, oriented to person, oriented to place , oriented to time, oriented to situation, CN II-XII grossly intact. ABSENT: motor sensory deficit Psychiatric exam: PRESENT: appropriate affect, normal mood. ABSENT: homicidal ideation, suicidal ideation Skin exam: PRESENT: dry, warm, other - right hip region surgical site dressing okay. Results Laboratory Results: 08/23/16 09:15 08/23/16 05:49 08/21/16 08/23/16 04:04 11:05 Troponin I 0.017 0.017 Impressions: Chest X-Ray 08/19/16 19:41 IMPRESSION: COPD. NO ACUTE RADIOGRAPHIC FINDING IN THE CHEST. Head CT 08/19/16 19:41 IMPRESSION: NORMAL BRAIN CT WITHOUT CONTRAST. Chest/Abdomen CTA 08/20/16 00:00 IMPRESSION: Obstructive lung disease No CT angio evidence of acute pulmonary emboli or thoracic aortic dissection Fluoroscopy 08/22/16 00:00 IMPRESSION: IMAGE(S) OBTAINED DURING PROCEDURE. Hip X-Ray 08/22/16 00:00 IMPRESSION: IMAGE(S) OBTAINED DURING PROCEDURE. Assessment & Plan - Diagnosis (1) Closed right hip fracture Qualifiers: Encounter type: initial encounter Qualified Code(s): S72.001A - Fracture of unspecified part of neck of right femur, initial encounter for closed fracture Is this a current diagnosis for this admission?: Yes (2) Laceration of face without complication Qualifiers: Encounter type: subsequent encounter Qualified Code(s): S01.81XD - Laceration without foreign body of other part of head, subsequent encounter Is this a current diagnosis for this admission?: Yes (3) COPD (chronic obstructive pulmonary disease) Qualifiers: COPD type: COPD with acute exacerbation Qualified Code(s): J44.1 - Chronic obstructive pulmonary disease with (acute) exacerbation Is this a current diagnosis for this admission?: Yes (4) Chronic respiratory failure with hypoxia and hypercapnia Is this a current diagnosis for this admission?: Yes (5) CAD (coronary artery disease) Qualifiers: Coronary Disease-Associated Artery/Lesion type: [place] artery Associated angina: without angina Is this a current diagnosis for this admission?: Yes (6) Old non-ST elevation myocardial infarction (NSTEMI) Is this a current diagnosis for this admission?: Yes (8) HTN (hypertension) Qualifiers: Hypertension type: essential hypertension Qualified Code(s): I10 - Essential (primary) hypertension Is this a current diagnosis for this admission?: Yes (9) Snucz-Qhulamimy-Jmrbv syndrome Is this a current diagnosis for this admission?: Yes (10) HLD (hyperlipidemia) Qualifiers: Hyperlipidemia type: pure hypercholesterolemia Qualified Code(s): E78.00 - Pure hypercholesterolemia, unspecified; E78.0 - Pure hypercholesterolemia Is this a current diagnosis for this admission?: Yes (11) Mixed anxiety and depressive disorder Is this a current diagnosis for this admission?: Yes - Time Time Spent with patient: 25-34 minutes Medications reviewed and adjusted accordingly: Yes Within: Other - counseling done on participation in physical therapy.
--- NOTE | 2016-08-24 16:54 | PDOC PROGRESS REPORT ---
Subjective Progress Note for:: 08/24/16 Subjective:: Patient denies any pain Physical Exam Vital Signs: Temp Pulse Resp BP Pulse Ox 97.9 F 80 20 124/67 99 08/24/16 11:14 08/24/16 14:00 08/24/16 11:14 08/24/16 11:14 08/24/16 11:14 Intake & Output 08/23/16 08/24/16 08/25/16 06:59 06:59 06:59 Intake Total 1225 682 0 Output Total 830 1150 200 Balance 395 -468 -200 Weight 48.3 kg General appearance: PRESENT: no acute distress, cooperative, disheveled, thin, well-developed Head exam: PRESENT: atraumatic, normocephalic Eye exam: PRESENT: conjunctiva pale, EOMI Mouth exam: PRESENT: dry mucosa, neck supple, tongue midline Neck exam: ABSENT: carotid bruit, JVD, lymphadenopathy, thyromegaly Respiratory exam: PRESENT: decreased breath sounds, prolonged expiratory phas, rhonchi, symmetrical, unlabored, wheezes Cardiovascular exam: PRESENT: irregular rhythm Pulses: PRESENT: normal radial pulses GI/Abdominal exam: PRESENT: normal bowel sounds, soft. ABSENT: distended, guarding, mass, organolmegaly, rebound, tenderness Rectal exam: PRESENT: deferred Gentrourinary exam: PRESENT: indwelling catheter Neurological exam: PRESENT: awake Skin exam: PRESENT: dry, warm Results Laboratory Results: 08/23/16 09:15 08/23/16 05:49 08/21/16 08/23/16 04:04 11:05 Troponin I 0.017 0.017 Impressions: Chest X-Ray 08/19/16 19:41 IMPRESSION: COPD. NO ACUTE RADIOGRAPHIC FINDING IN THE CHEST. Head CT 08/19/16 19:41 IMPRESSION: NORMAL BRAIN CT WITHOUT CONTRAST. Chest/Abdomen CTA 08/20/16 00:00 IMPRESSION: Obstructive lung disease No CT angio evidence of acute pulmonary emboli or thoracic aortic dissection Fluoroscopy 08/22/16 00:00 IMPRESSION: IMAGE(S) OBTAINED DURING PROCEDURE. Hip X-Ray 08/22/16 00:00 IMPRESSION: IMAGE(S) OBTAINED DURING PROCEDURE. Assessment & Plan - Diagnosis (1) Chronic obstructive lung disease Qualifiers: COPD type: unspecified COPD Qualified Code(s): J44.9 - Chronic obstructive pulmonary disease, unspecified Is this a current diagnosis for this admission?: Yes (2) Closed right hip fracture Qualifiers: Encounter type: initial encounter Qualified Code(s): S72.001A - Fracture of unspecified part of neck of right femur, initial encounter for closed fracture Is this a current diagnosis for this admission?: Yes (3) Coronary artery disease Qualifiers: Coronary Disease-Associated Artery/Lesion type: [place] artery [place] vs. transplanted heart: [place] heart Associated angina: angina presence unspecified Qualified Code(s): I25.10 - Atherosclerotic heart disease of [place] coronary artery without angina pectoris Is this a current diagnosis for this admission?: Yes (4) H/O cardiac pacemaker Is this a current diagnosis for this admission?: Yes
--- NOTE | 2016-08-24 16:57 | PDOC PROGRESS REPORT ---
Subjective Progress Note for:: 08/23/16 Subjective:: Patient without complaints Physical Exam Vital Signs: Temp Pulse Resp BP Pulse Ox 98.1 F 94 18 113/49 L 99 08/23/16 19:57 08/23/16 19:57 08/23/16 19:57 08/23/16 19:57 08/23/16 19:57 Intake & Output 08/22/16 08/23/16 08/24/16 06:59 06:59 06:59 Intake Total 3301 1225 237 Output Total 2200 830 300 Balance 1101 395 -63 Weight 48.7 kg 48.3 kg General appearance: PRESENT: cooperative, disheveled, thin, well-developed Head exam: PRESENT: atraumatic, normocephalic Eye exam: PRESENT: conjunctiva pale, EOMI Mouth exam: PRESENT: dry mucosa, neck supple, tongue midline Respiratory exam: PRESENT: decreased breath sounds, prolonged expiratory phas, rhonchi, unlabored Cardiovascular exam: PRESENT: RRR, +S1, +S2 Pulses: PRESENT: normal radial pulses GI/Abdominal exam: PRESENT: normal bowel sounds, soft. ABSENT: distended, guarding, mass, organolmegaly, rebound, tenderness Rectal exam: PRESENT: deferred Gentrourinary exam: PRESENT: indwelling catheter Musculoskeletal exam: PRESENT: other - Closed fracture to hip Neurological exam: PRESENT: awake Focused psych exam: PRESENT: delusional Skin exam: PRESENT: dry, warm Results Laboratory Results: 08/23/16 09:15 08/23/16 05:49 08/23/16 08/23/16 08/23/16 05:49 05:49 09:15 WBC 14.4 H 13.9 H RBC 3.06 L 3.00 L Hgb 8.5 L D 8.3 L Hct 26.7 L 26.4 L MCV 87 88 MCH 27.7 27.7 MCHC 31.7 L 31.5 L RDW 16.7 H 16.6 H Plt Count 213 227 Seg Neutrophils % 81.0 H 76.6 Lymphocytes % 8.5 L 13.9 Monocytes % 10.3 9.2 Eosinophils % 0.1 0.2 Basophils % 0.1 0.1 Absolute Neutrophils 11.7 H 10.6 H Absolute Lymphocytes 1.2 1.9 Absolute Monocytes 1.5 H 1.3 Absolute Eosinophils 0.0 0.0 Absolute Basophils 0.0 0.0 Sodium 138.6 Potassium 4.1 Chloride 107 Carbon Dioxide 26 Anion Gap 6 BUN 16 Creatinine 0.84 Est GFR ( Amer) > 60 Est GFR (Non-Af Amer) > 60 Glucose 94 Calcium 8.5 08/21/16 08/23/16 04:04 11:05 Troponin I 0.017 0.017 Impressions: Chest X-Ray 08/19/16 19:41 IMPRESSION: COPD. NO ACUTE RADIOGRAPHIC FINDING IN THE CHEST. Head CT 08/19/16 19:41 IMPRESSION: NORMAL BRAIN CT WITHOUT CONTRAST. Chest/Abdomen CTA 08/20/16 00:00 IMPRESSION: Obstructive lung disease No CT angio evidence of acute pulmonary emboli or thoracic aortic dissection Fluoroscopy 08/22/16 00:00 IMPRESSION: IMAGE(S) OBTAINED DURING PROCEDURE. Hip X-Ray 08/22/16 00:00 IMPRESSION: IMAGE(S) OBTAINED DURING PROCEDURE. Assessment & Plan - Diagnosis (1) Chronic obstructive lung disease Qualifiers: COPD type: unspecified COPD Qualified Code(s): J44.9 - Chronic obstructive pulmonary disease, unspecified Is this a current diagnosis for this admission?: Yes (2) Closed right hip fracture Qualifiers: Encounter type: initial encounter Qualified Code(s): S72.001A - Fracture of unspecified part of neck of right femur, initial encounter for closed fracture Is this a current diagnosis for this admission?: Yes (3) Coronary artery disease Qualifiers: Coronary Disease-Associated Artery/Lesion type: [place] artery [place] vs. transplanted heart: [place] heart Associated angina: angina presence unspecified Qualified Code(s): I25.10 - Atherosclerotic heart disease of [place] coronary artery without angina pectoris (4) H/O cardiac pacemaker Is this a current diagnosis for this admission?: Yes (5) Dementia Is this a current diagnosis for this admission?: Yes (6) Closed fracture of left hip requiring operative repair Is this a current diagnosis for this admission?: Yes
[2016-08-24] MEDS: GABAPENTIN 100 MG CAPSULE PO SCH (17:12)
[2016-08-24] MEDS: ROFLUMILAST 500 MCG TABLET PO SCH (21:07)
[2016-08-25] MEDS: LANSOPRAZOLE 30 MG TAB.RAP.DR PO SCH (05:48)
[2016-08-25] MEDS: BUSPIRONE HCL 10 MG TABLET PO SCH ×3 (05:48→22:27)
[2016-08-25] MEDS: ROPINIROLE HCL 1 MG TABLET PO SCH ×3 (05:48→22:27)
[2016-08-25] MEDS: OXYCODONE HCL IR 5 MG TABLET PO PRN ×2 (06:01→13:17)
[2016-08-25] MEDS: HYDROCODONE/ACETAMINOPHEN 5-325 MG TABLET PO PRN ×2 (07:44→18:30)
[2016-08-25] MEDS: BUDESONIDE NEB 0.25 MG/2 ML AMPUL NEB SCH ×2 (08:12→20:01)
[2016-08-25] MEDS: IPRATROPIUM/ALBUTEROL 0.5-2.5 MG/3 ML AMPUL NEB SCH ×3 (08:12→23:43)
[2016-08-25] MEDS: FLUTICASONE/SALMETEROL DISKUS 250-50 MCG/DOSE IH SCH ×2 (10:05→22:30)
[2016-08-25] MEDS: TIOTROPIUM BROMIDE DPI 5 CAP/KIT (18 MCG/CAP) IH SCH (10:06)
[2016-08-25] MEDS: PREGABALIN 50 MG CAPSULE PO SCH (10:07)
[2016-08-25] MEDS: APIXABAN 2.5 MG TABLET PO SCH ×2 (10:07→22:27)
[2016-08-25] MEDS: CITALOPRAM HYDROBROMIDE 20 MG TABLET PO SCH (10:07)
[2016-08-25] MEDS: ACETAZOLAMIDE 250 MG TABLET PO SCH ×2 (10:07→22:27)
[2016-08-25] MEDS: TRIMETHOBENZAMIDE HCL 300 MG CAPSULE PO SCH ×3 (10:07→17:29)
[2016-08-25] MEDS: MONTELUKAST SODIUM 10 MG TABLET PO SCH (10:07)
[2016-08-25] MEDS: METOPROLOL SUCCINATE 25 MG TAB.SR.24H PO SCH (13:15)
[2016-08-25] MEDS: GABAPENTIN 100 MG CAPSULE PO SCH (17:29)
--- NOTE | 2016-08-25 20:41 | PDOC PROGRESS REPORT ---
Subjective Progress Note for:: 08/25/16 Subjective:: Patient denied any chest pain. Breathing at baseline with oxygen supplementation via nasal canula. No fever or chills. Her nausea is fairly controlled but P. O intake remain a challenge. No abdominal pain. No chest pain. She participated in physical therapy session today with walker assistance ambulation. There is concern about strong urine odour. Patient is requesting for stool softener. Physical Exam Vital Signs: Temp Pulse Resp BP Pulse Ox 98.1 F 80 18 103/48 L 94 08/25/16 15:27 08/25/16 20:02 08/25/16 20:02 08/25/16 15:27 08/25/16 20:02 Intake & Output 08/24/16 08/25/16 08/26/16 06:59 06:59 06:59 Intake Total 682 189 880 Output Total 1150 800 Balance -468 -611 880 Weight 48.4 kg Physical Exam: General appearance: PRESENT: no acute distress, cooperative, well-developed, well-nourished Head exam: PRESENT: atraumatic, normocephalic Eye exam: PRESENT: conjunctiva pink, EOMI, PERRLA. ABSENT: scleral icterus Respiratory exam: PRESENT: clear to auscultation luci, decreased breath sounds Cardiovascular exam: PRESENT: RRR. ABSENT: diastolic murmur, rubs, systolic murmur GI/Abdominal exam: PRESENT: normal bowel sounds, soft. ABSENT: distended, guarding, mass, organolmegaly, rebound, tenderness Extremities exam: ABSENT: pedal edema Neurological exam: PRESENT: alert, awake, oriented to person, oriented to place , oriented to time, oriented to situation, CN II-XII grossly intact. ABSENT: motor sensory deficit Psychiatric exam: PRESENT: appropriate affect, normal mood. ABSENT: homicidal ideation, suicidal ideation Skin exam: PRESENT: dry, warm, other - right hip region surgical site dressing okay. Results Laboratory Results: 08/23/16 09:15 08/23/16 05:49 08/21/16 08/23/16 04:04 11:05 Troponin I 0.017 0.017 Impressions: Chest X-Ray 08/19/16 19:41 IMPRESSION: COPD. NO ACUTE RADIOGRAPHIC FINDING IN THE CHEST. Head CT 08/19/16 19:41 IMPRESSION: NORMAL BRAIN CT WITHOUT CONTRAST. Chest/Abdomen CTA 08/20/16 00:00 IMPRESSION: Obstructive lung disease No CT angio evidence of acute pulmonary emboli or thoracic aortic dissection Fluoroscopy 08/22/16 00:00 IMPRESSION: IMAGE(S) OBTAINED DURING PROCEDURE. Hip X-Ray 08/22/16 00:00 IMPRESSION: IMAGE(S) OBTAINED DURING PROCEDURE. Assessment & Plan - Diagnosis (1) Closed right hip fracture Qualifiers: Encounter type: initial encounter Qualified Code(s): S72.001A - Fracture of unspecified part of neck of right femur, initial encounter for closed fracture Is this a current diagnosis for this admission?: Yes (2) Laceration of face without complication Qualifiers: Encounter type: subsequent encounter Qualified Code(s): S01.81XD - Laceration without foreign body of other part of head, subsequent encounter Is this a current diagnosis for this admission?: Yes (3) COPD (chronic obstructive pulmonary disease) Qualifiers: COPD type: COPD with acute exacerbation Qualified Code(s): J44.1 - Chronic obstructive pulmonary disease with (acute) exacerbation Is this a current diagnosis for this admission?: Yes (4) Chronic respiratory failure with hypoxia and hypercapnia Is this a current diagnosis for this admission?: Yes (5) CAD (coronary artery disease) Qualifiers: Coronary Disease-Associated Artery/Lesion type: [place] artery Associated angina: without angina Is this a current diagnosis for this admission?: Yes (6) Old non-ST elevation myocardial infarction (NSTEMI) Is this a current diagnosis for this admission?: Yes (7) H/O cardiac pacemaker Is this a current diagnosis for this admission?: Yes (8) HTN (hypertension) Qualifiers: Hypertension type: essential hypertension Qualified Code(s): I10 - Essential (primary) hypertension Is this a current diagnosis for this admission?: Yes (9) Yfdgj-Wkdtrppdz-Brndg syndrome Is this a current diagnosis for this admission?: Yes (10) HLD (hyperlipidemia) Qualifiers: Hyperlipidemia type: pure hypercholesterolemia Qualified Code(s): E78.00 - Pure hypercholesterolemia, unspecified; E78.0 - Pure hypercholesterolemia Is this a current diagnosis for this admission?: Yes (11) Mixed anxiety and depressive disorder Is this a current diagnosis for this admission?: Yes - Time Time Spent with patient: 25-34 minutes Medications reviewed and adjusted accordingly: Yes Anticipated discharge: SNF Within: Other - Inpatient Certification Based on my medical assessment, after consideration of the patient's comorbidities, presenting symptoms, or acuity I expect that the services needed warrant INPATIENT care.: Yes I certify that my determination is in accordance with my understanding of Medicare's requirements for reasonable and necessary INPATIENT services [42 CFR 412.3e].: Yes Medical Necessity: Need Close Monitoring Due to Risk of Patient Decompensation, Need For IV Fluids, Need For Continuous Telemetry Monitoring, Need for Nebulizer Therapy and Monitoring of Response, Risk of Complication if Not Cared For in Hospital Post Hospital Care: D/C or Transfer Summary - Plan Summary Plan Summary: Continue current medication management. Start on Colace 200mg p.o qhs. Obtain U/ A, microscopy and culture as indicated. Obtain CBC with diff, CMP.
[2016-08-25] MEDS ORDERED: DOCUSATE SODIUM 100 MG CAPSULE PO ONE (20:47)
[2016-08-25 21:34] LABS: APPEARANCE,URINE SLIGHTLY-CLOUDY; BILIRUBIN,URINE NEGATIVE (NEGATIVE); GLUCOSE, URINE NEGATIVE (NEGATIVE); KETONES,URINE NEGATIVE (NEGATIVE); LEUKOCYTE ESTERASE,URINE MODERATE (NEGATIVE); NITRITE,URINE POSITIVE (NEGATIVE); PROTEIN,URINE NEGATIVE (NEGATIVE); URINE SPECIFIC GRAVITY 1.012; UROBILINOGEN,URINE NEGATIVE mg/dL (<2.0)
[2016-08-25] MEDS: ROFLUMILAST 500 MCG TABLET PO SCH (22:27)
[2016-08-25] MEDS: ALPRAZOLAM 0.25 MG TABLET PO PRN (22:27)
[2016-08-26] MEDS: OXYCODONE HCL IR 5 MG TABLET PO PRN ×2 (00:13→08:00)
[2016-08-26] MEDS: HYDROCODONE/ACETAMINOPHEN 5-325 MG TABLET PO PRN ×2 (00:17→08:00)
[2016-08-26] MEDS: LANSOPRAZOLE 30 MG TAB.RAP.DR PO SCH (05:48)
[2016-08-26] MEDS: BUSPIRONE HCL 10 MG TABLET PO SCH ×3 (05:49→21:30)
[2016-08-26] MEDS: ROPINIROLE HCL 1 MG TABLET PO SCH ×3 (05:49→21:30)
--- NOTE | 2016-08-26 07:15 | PDOC PROGRESS REPORT ---
Subjective Progress Note for:: 08/26/16 Subjective:: With complaints of discomfort associated with ambulation Physical Exam Vital Signs: Temp Pulse Resp BP Pulse Ox 36.6 C 64 20 107/48 L 100 08/26/16 03:48 08/26/16 06:53 08/26/16 03:48 08/26/16 03:48 08/26/16 03:48 Intake & Output 08/25/16 08/26/16 08/27/16 06:59 06:59 06:59 Intake Total 189 1219 Output Total 800 600 Balance -611 619 Weight 48.4 kg General appearance: PRESENT: no acute distress Head exam: PRESENT: normocephalic Respiratory exam: PRESENT: unlabored Cardiovascular exam: PRESENT: RRR Pulses: PRESENT: +1 pedal pulses bilateral Vascular exam: PRESENT: normal capillary refill GI/Abdominal exam: PRESENT: soft Rectal exam: PRESENT: deferred Extremities exam: PRESENT: other - Lower extremity wounds are clean dry and intact. Dressings are removed. Results Laboratory Results: 08/23/16 09:15 08/23/16 05:49 08/25/16 21:10 Urine Color YELLOW Urine Appearance SLIGHTLY-CLOUDY Urine pH 8.0 Ur Specific [place] 1.012 Urine Protein NEGATIVE Urine Glucose (UA) NEGATIVE Urine Ketones NEGATIVE Urine Blood NEGATIVE Urine Nitrite POSITIVE H Ur Leukocyte Esterase MODERATE H Urine WBC (Auto) 87 Urine RBC (Auto) 2 08/21/16 08/23/16 04:04 11:05 Troponin I 0.017 0.017 Impressions: Chest X-Ray 08/19/16 19:41 IMPRESSION: COPD. NO ACUTE RADIOGRAPHIC FINDING IN THE CHEST. Head CT 08/19/16 19:41 IMPRESSION: NORMAL BRAIN CT WITHOUT CONTRAST. Chest/Abdomen CTA 08/20/16 00:00 IMPRESSION: Obstructive lung disease No CT angio evidence of acute pulmonary emboli or thoracic aortic dissection Fluoroscopy 08/22/16 00:00 IMPRESSION: IMAGE(S) OBTAINED DURING PROCEDURE. Hip X-Ray 08/22/16 00:00 IMPRESSION: IMAGE(S) OBTAINED DURING PROCEDURE. Assessment & Plan - Diagnosis (1) Closed right hip fracture Qualifiers: Encounter type: initial encounter Qualified Code(s): S72.001A - Fracture of unspecified part of neck of right femur, initial encounter for closed fracture Is this a current diagnosis for this admission?: YesPlan: 6-year-old white female status post open reduction internal fixation of right intertrochanteric fracture with an uneventful postoperative course. Discharge to a residential facility is pending. - Time Time Spent with patient: 15-24 minutes Anticipated discharge: SNF Within: when bed available
[2016-08-26] MEDS: IPRATROPIUM/ALBUTEROL 0.5-2.5 MG/3 ML AMPUL NEB SCH ×2 (08:46→16:16)
[2016-08-26] MEDS: BUDESONIDE NEB 0.25 MG/2 ML AMPUL NEB SCH ×2 (08:46→20:24)
[2016-08-26] MEDS: APIXABAN 2.5 MG TABLET PO SCH ×2 (10:12→21:30)
[2016-08-26] MEDS: CLONAZEPAM 1 MG TABLET PO SCH ×2 (10:13→17:28)
[2016-08-26] MEDS: PREGABALIN 50 MG CAPSULE PO SCH (10:13)
[2016-08-26] MEDS: TRIMETHOBENZAMIDE HCL 300 MG CAPSULE PO SCH ×3 (10:13→17:28)
[2016-08-26] MEDS: FLUTICASONE/SALMETEROL DISKUS 250-50 MCG/DOSE IH SCH ×2 (10:13→21:30)
[2016-08-26] MEDS: MONTELUKAST SODIUM 10 MG TABLET PO SCH (10:13)
[2016-08-26] MEDS: CITALOPRAM HYDROBROMIDE 20 MG TABLET PO SCH (10:13)
[2016-08-26] MEDS: ACETAZOLAMIDE 250 MG TABLET PO SCH ×2 (10:13→21:30)
[2016-08-26] MEDS: TIOTROPIUM BROMIDE DPI 5 CAP/KIT (18 MCG/CAP) IH SCH (10:13)
[2016-08-26] MEDS: METOPROLOL SUCCINATE 25 MG TAB.SR.24H PO SCH (13:00)
[2016-08-26] MEDS: GABAPENTIN 100 MG CAPSULE PO SCH (17:27)
[2016-08-26] MEDS ORDERED: AMOXICILLIN TR/POT CLAVULANATE 500-125 MG TAB PO ONE (19:30)
--- NOTE | 2016-08-26 19:48 | PDOC PROGRESS REPORT ---
Subjective Progress Note for:: 08/26/16 Subjective:: Patient denied any chest pain. Breathing at baseline with oxygen supplementation via nasal canula. No fever or chills. No nausea, vomiting, or abdominal pain. P.O intake portion remain poor. She continue to participate satisfactorily in physical therapy session. Her urine analysis and culture did suggest UTI with gram negative danica organism growing on culture plate. Physical Exam Vital Signs: Temp Pulse Resp BP Pulse Ox 98.5 F 78 19 100/50 L 97 08/26/16 15:57 08/26/16 18:41 08/26/16 15:57 08/26/16 18:41 08/26/16 15:57 Intake & Output 08/25/16 08/26/16 08/27/16 06:59 06:59 06:59 Intake Total 189 1219 367 Output Total 800 600 400 Balance -611 619 -33 Weight 48.4 kg 47 kg Physical Exam: General appearance: PRESENT: no acute distress, cooperative, well-developed, well-nourished Head exam: PRESENT: atraumatic, normocephalic Eye exam: PRESENT: conjunctiva pink, EOMI, PERRLA. ABSENT: scleral icterus Respiratory exam: PRESENT: clear to auscultation luci, decreased breath sounds Cardiovascular exam: PRESENT: RRR. ABSENT: diastolic murmur, rubs, systolic murmur GI/Abdominal exam: PRESENT: normal bowel sounds, soft. ABSENT: distended, guarding, mass, organomegaly, rebound, tenderness Extremities exam: ABSENT: pedal edema Neurological exam: PRESENT: alert, awake, oriented to person, oriented to place , oriented to time, oriented to situation, CN II-XII grossly intact. ABSENT: motor sensory deficit Psychiatric exam: PRESENT: appropriate affect, normal mood. ABSENT: homicidal ideation, suicidal ideation Skin exam: PRESENT: dry, warm, other - right hip region surgical site dressing okay. Results Laboratory Results: 08/23/16 09:15 08/23/16 05:49 08/25/16 21:10 Urine Color YELLOW Urine Appearance SLIGHTLY-CLOUDY Urine pH 8.0 Ur Specific [place] 1.012 Urine Protein NEGATIVE Urine Glucose (UA) NEGATIVE Urine Ketones NEGATIVE Urine Blood NEGATIVE Urine Nitrite POSITIVE H Ur Leukocyte Esterase MODERATE H Urine WBC (Auto) 87 Urine RBC (Auto) 2 08/21/16 08/23/16 04:04 11:05 Troponin I 0.017 0.017 Impressions: Chest X-Ray 08/19/16 19:41 IMPRESSION: COPD. NO ACUTE RADIOGRAPHIC FINDING IN THE CHEST. Head CT 08/19/16 19:41 IMPRESSION: NORMAL BRAIN CT WITHOUT CONTRAST. Chest/Abdomen CTA 08/20/16 00:00 IMPRESSION: Obstructive lung disease No CT angio evidence of acute pulmonary emboli or thoracic aortic dissection Fluoroscopy 08/22/16 00:00 IMPRESSION: IMAGE(S) OBTAINED DURING PROCEDURE. Hip X-Ray 08/22/16 00:00 IMPRESSION: IMAGE(S) OBTAINED DURING PROCEDURE. Assessment & Plan - Diagnosis (1) Closed right hip fracture Qualifiers: Encounter type: initial encounter Qualified Code(s): S72.001A - Fracture of unspecified part of neck of right femur, initial encounter for closed fracture Is this a current diagnosis for this admission?: Yes (2) Laceration of face without complication Qualifiers: Encounter type: subsequent encounter Qualified Code(s): S01.81XD - Laceration without foreign body of other part of head, subsequent encounter Is this a current diagnosis for this admission?: Yes (3) COPD (chronic obstructive pulmonary disease) Qualifiers: COPD type: COPD with acute exacerbation Qualified Code(s): J44.1 - Chronic obstructive pulmonary disease with (acute) exacerbation Is this a current diagnosis for this admission?: Yes (4) Chronic respiratory failure with hypoxia and hypercapnia Is this a current diagnosis for this admission?: Yes (5) CAD (coronary artery disease) Qualifiers: Coronary Disease-Associated Artery/Lesion type: [place] artery Associated angina: without angina Is this a current diagnosis for this admission?: Yes (6) Old non-ST elevation myocardial infarction (NSTEMI) Is this a current diagnosis for this admission?: Yes (7) H/O cardiac pacemaker Is this a current diagnosis for this admission?: Yes (8) HTN (hypertension) Qualifiers: Hypertension type: essential hypertension Qualified Code(s): I10 - Essential (primary) hypertension Is this a current diagnosis for this admission?: Yes (9) Xwpxa-Uikjuiflr-Mwksz syndrome Is this a current diagnosis for this admission?: Yes (10) HLD (hyperlipidemia) Qualifiers: Hyperlipidemia type: pure hypercholesterolemia Qualified Code(s): E78.00 - Pure hypercholesterolemia, unspecified; E78.0 - Pure hypercholesterolemia Is this a current diagnosis for this admission?: Yes (11) Mixed anxiety and depressive disorder Is this a current diagnosis for this admission?: Yes - Time Time Spent with patient: 25-34 minutes Medications reviewed and adjusted accordingly: Yes Anticipated discharge: SNF Within: Other - Inpatient Certification Based on my medical assessment, after consideration of the patient's comorbidities, presenting symptoms, or acuity I expect that the services needed warrant INPATIENT care.: Yes I certify that my determination is in accordance with my understanding of Medicare's requirements for reasonable and necessary INPATIENT services [42 CFR 412.3e].: Yes Medical Necessity: Need Close Monitoring Due to Risk of Patient Decompensation, Need For IV Fluids, Need For Continuous Telemetry Monitoring, Need for Nebulizer Therapy and Monitoring of Response, Risk of Complication if Not Cared For in Hospital Post Hospital Care: D/C or Transfer Summary - Plan Summary Plan Summary: Start on Levofloxacin 250mg p.o daily with first dose tonight. Maintain on all other current medication.
[2016-08-26] MEDS: ROFLUMILAST 500 MCG TABLET PO SCH (21:30)
[2016-08-26] MEDS: ALPRAZOLAM 0.25 MG TABLET PO PRN (21:35)
[2016-08-27] MEDS: IPRATROPIUM/ALBUTEROL 0.5-2.5 MG/3 ML AMPUL NEB SCH ×3 (00:20→16:10)
[2016-08-27] MEDS: HYDROCODONE/ACETAMINOPHEN 5-325 MG TABLET PO PRN ×2 (01:30→11:46)
[2016-08-27] MEDS: OXYCODONE HCL IR 5 MG TABLET PO PRN ×2 (01:30→15:51)
[2016-08-27] MEDS: LANSOPRAZOLE 30 MG TAB.RAP.DR PO SCH (05:06)
[2016-08-27] MEDS: BUSPIRONE HCL 10 MG TABLET PO SCH ×2 (05:06→13:11)
[2016-08-27] MEDS: ROPINIROLE HCL 1 MG TABLET PO SCH ×2 (05:06→13:12)
--- NOTE | 2016-08-27 07:02 | PDOC PROGRESS REPORT ---
Subjective Progress Note for:: 08/27/16 Subjective:: Continues to complain of right lower extremity pain associated with ambulation. No pain at rest. Physical Exam Vital Signs: Temp Pulse Resp BP Pulse Ox 36.8 C 75 20 101/53 L 99 08/27/16 03:41 08/27/16 03:41 08/27/16 03:41 08/27/16 03:41 08/27/16 03:41 Intake & Output 08/26/16 08/27/16 08/28/16 06:59 06:59 06:59 Intake Total 1219 1726 Output Total 600 1400 Balance 619 326 Weight 48.7 kg General appearance: PRESENT: thin Head exam: PRESENT: normocephalic Eye exam: PRESENT: EOMI Respiratory exam: PRESENT: unlabored Cardiovascular exam: PRESENT: RRR Extremities exam: PRESENT: other - Lower extremity wounds clean dry and intact. Leg lengths equal. Distal neurovascular examination is intact. Results Laboratory Results: 08/23/16 09:15 08/23/16 05:49 08/21/16 08/23/16 04:04 11:05 Troponin I 0.017 0.017 Impressions: Chest X-Ray 08/19/16 19:41 IMPRESSION: COPD. NO ACUTE RADIOGRAPHIC FINDING IN THE CHEST. Head CT 08/19/16 19:41 IMPRESSION: NORMAL BRAIN CT WITHOUT CONTRAST. Chest/Abdomen CTA 08/20/16 00:00 IMPRESSION: Obstructive lung disease No CT angio evidence of acute pulmonary emboli or thoracic aortic dissection Fluoroscopy 08/22/16 00:00 IMPRESSION: IMAGE(S) OBTAINED DURING PROCEDURE. Hip X-Ray 08/22/16 00:00 IMPRESSION: IMAGE(S) OBTAINED DURING PROCEDURE. Assessment & Plan - Diagnosis (1) Closed right hip fracture Qualifiers: Encounter type: initial encounter Qualified Code(s): S72.001A - Fracture of unspecified part of neck of right femur, initial encounter for closed fracture Is this a current diagnosis for this admission?: Yes
[2016-08-27] MEDS: BUDESONIDE NEB 0.25 MG/2 ML AMPUL NEB SCH (08:26)
[2016-08-27] MEDS: TRIMETHOBENZAMIDE HCL 300 MG CAPSULE PO SCH ×2 (10:20→13:11)
[2016-08-27] MEDS: ACETAZOLAMIDE 250 MG TABLET PO SCH (10:20)
[2016-08-27] MEDS: CITALOPRAM HYDROBROMIDE 20 MG TABLET PO SCH (10:20)
[2016-08-27] MEDS: PREGABALIN 50 MG CAPSULE PO SCH (10:21)
[2016-08-27] MEDS: AMOXICILLIN TR/POT CLAVULANATE 500-125 MG TAB PO SCH ×2 (10:21→13:12)
[2016-08-27] MEDS: CLONAZEPAM 1 MG TABLET PO SCH (10:21)
[2016-08-27] MEDS: APIXABAN 2.5 MG TABLET PO SCH (10:22)
[2016-08-27] MEDS: FLUTICASONE/SALMETEROL DISKUS 250-50 MCG/DOSE IH SCH (10:22)
[2016-08-27] MEDS: TIOTROPIUM BROMIDE DPI 5 CAP/KIT (18 MCG/CAP) IH SCH (10:22)
[2016-08-27] MEDS: MONTELUKAST SODIUM 10 MG TABLET PO SCH (10:22)
[2016-08-27] MEDS: METOPROLOL SUCCINATE 25 MG TAB.SR.24H PO SCH (13:12)
--- NOTE | 2016-08-27 14:46 | PDOC TRANSFER SUMMARY ---
General - Admit/Disc Date/PCP Admission Date/Primary Care Provider: 08/20/16 01:46 SARITA ANNA Discharge Date: 08/27/16 - Discharge Diagnosis (1) Closed right hip fracture Is this a current diagnosis for this admission?: Yes (2) Laceration of face without complication Is this a current diagnosis for this admission?: Yes (3) COPD (chronic obstructive pulmonary disease) Is this a current diagnosis for this admission?: Yes (4) Chronic respiratory failure with hypoxia and hypercapnia Is this a current diagnosis for this admission?: Yes (5) CAD (coronary artery disease) Is this a current diagnosis for this admission?: Yes (6) Old non-ST elevation myocardial infarction (NSTEMI) Is this a current diagnosis for this admission?: Yes (7) H/O cardiac pacemaker Is this a current diagnosis for this admission?: Yes (8) HTN (hypertension) Is this a current diagnosis for this admission?: Yes (9) Dnxkp-Fscfuucza-Rfvow syndrome Is this a current diagnosis for this admission?: Yes (10) HLD (hyperlipidemia) Is this a current diagnosis for this admission?: Yes (11) Mixed anxiety and depressive disorder Is this a current diagnosis for this admission?: Yes - Additional Information Resuscitation Status: Full Code Discharge Diet: Cardiac Discharge Activity: Slowly Increase Activity, Supervised Activity Home Medications: Acetazolamide [Diamox 250 mg Tab] 250 mg PO BID 08/24/16 Albuterol Sulfate [Albuterol Sulfate 2.5mg/3 mL] 3 ml NEB RTTIDP PRN 08/24/16 Alprazolam [Xanax 0.25 mg Tablet] 0.25 mg PO BIDP PRN 08/24/16 Apixaban [Eliquis 2.5 mg Tablet] 2.5 mg PO Q12 08/24/16 Aspirin [Adult Low Dose Aspirin EC] 81 mg PO DAILY 08/24/16 Buspirone HCl [Buspar 15 mg Tablet] 7.5 mg PO TID 08/24/16 Citalopram Hydrobromide [Celexa 40 mg Tablet] 40 mg PO DAILY 08/24/16 Clonazepam [Klonopin 1 mg Tablet] 1 mg PO BID 08/24/16 Docusate Sodium [Colace 100 mg Capsule] 100 mg PO DAILY 08/24/16 Fluticasone/Salmeterol [Advair 250-50 Diskus 14 Dose/Diskus] 1 puff IH Q12 08/24 Montelukast Sodium [Singulair 10 mg Tablet] 10 mg PO DAILY 08/24/16 Pregabalin [Lyrica 50 mg Capsule] 50 mg PO QHS 08/24/16 Promethazine HCl [Phenergan 25 mg Tablet] 25 mg PO Q6HP PRN 08/24/16 Roflumilast [Daliresp 500 mcg Tablet] 500 mcg PO QHS 08/24/16 Ropinirole HCl 1 mg PO TID 08/24/16 Tiotropium [place] [Spiriva Handihaler 18 mcg/dose (30 Dose)] 18 mcg IH DAILY Zolpidem Tartrate [Ambien 5 mg Tablet] 5 mg PO QPM PRN 08/24/16 Amox Tr/Potassium Clavulanate [Augmentin "500" Tablet] 1 tab PO TID #21 tablet 08/27/16 Oxycodone HCl/Acetaminophen [Percocet 7.5-325 mg Tablet] 1 tab PO TIDP PRN #60 tablet 08/27/16 History of Present Illness Admission Date/PCP: 08/20/16 01:46 SARITAEVA CASTILLO History of Present Illness: SUSAN BINGHAM is a 75 year old female known to my practice complain of fall while loading her washing machine and tripped over a cord. She subsequently experience pain and difficulty bearing weight on her right hip joint. She denied any preceding chest pain, palpitation, dizziness or lightheadedness. No loss of consciousness. She sustained laceration injury to right side of her head. Patient reported subsequent nausea but no vomiting. Her initial evaluation in the ED was remarkable for right intertrochanteric fracture of right femur.hx of COPD and dysphagia and aspiration Hospital Course Hospital Course: Patient responded to supportive care and eventual surgical intervention with right hip ORIF. She did very well post operatively but developed UTI with E.Coli ESBL sensitive to Augmentin. She will remain on antibiotic therapy for 7 more days. She remain afebrile. She has been participating in physical therapy satisfactorily. Her oral intake remain a challenge despite reported satisfactory appetite. She will be transferred to [facility] for short term rehabilitation program. Patient and facility nurse will be instructed to call office prior to her discharge for follow up appointment. She will follow up with Dr. Sanz, orthopedic surgeon, as instructed upon discharge. Physical Exam Vital Signs: Temp Pulse Resp BP Pulse Ox 98.4 F 73 18 116/63 100 08/27/16 11:11 08/27/16 11:11 08/27/16 11:11 08/27/16 11:11 08/27/16 11:11 Intake & Output 08/26/16 08/27/16 08/28/16 06:59 06:59 06:59 Intake Total 1219 1726 0 Output Total 600 1400 Balance 619 326 0 Weight 48.7 kg General appearance: PRESENT: no acute distress, cooperative, well-developed, well-nourished Head exam: PRESENT: atraumatic, normocephalic Eye exam: PRESENT: conjunctiva pink, EOMI, PERRLA. ABSENT: scleral icterus Respiratory exam: PRESENT: clear to auscultation luci, decreased breath sounds Cardiovascular exam: PRESENT: RRR. ABSENT: diastolic murmur, rubs, systolic murmur GI/Abdominal exam: PRESENT: normal bowel sounds, soft. ABSENT: distended, guarding, mass, organomegaly, rebound, tenderness Extremities exam: ABSENT: pedal edema Neurological exam: PRESENT: alert, awake, oriented to person, oriented to place , oriented to time, oriented to situation, CN II-XII grossly intact. ABSENT: motor sensory deficit Psychiatric exam: PRESENT: appropriate affect, normal mood. ABSENT: homicidal ideation, suicidal ideation Skin exam: PRESENT: dry, warm, other - right hip region surgical site dressing okay. Results Laboratory Results: 08/23/16 09:15 08/23/16 05:49 08/25/16 21:10 Clean Catch Midstream Urine Culture - Final Escherichia Coli Esbl 08/21/16 08/23/16 04:04 11:05 Troponin I 0.017 0.017 Impressions: Chest X-Ray 08/19/16 19:41 IMPRESSION: COPD. NO ACUTE RADIOGRAPHIC FINDING IN THE CHEST. Head CT 08/19/16 19:41 IMPRESSION: NORMAL BRAIN CT WITHOUT CONTRAST. Chest/Abdomen CTA 08/20/16 00:00 IMPRESSION: Obstructive lung disease No CT angio evidence of acute pulmonary emboli or thoracic aortic dissection Fluoroscopy 08/22/16 00:00 IMPRESSION: IMAGE(S) OBTAINED DURING PROCEDURE. Hip X-Ray 08/22/16 00:00 IMPRESSION: IMAGE(S) OBTAINED DURING PROCEDURE. Transfer Plan - Disposition Transfer Plan: Transfer to [facility] for short term rehabilitation. - Time Spent with Patient Time spent with patient: Less than 30 Minutes Qualifiers PATEINT BEING DISCHARGED WITH ANY OF THE FOLLOWING DIAGNOSIS?: No Plan Discharge Plan: I discussed post discharge plan with patient and daughter. She will be transferred to [facility] today. Follow up with me as instructed upon discharge and with Dr Sanz as directed. Time Spent: Greater than 30 Minutes
[2016-08-27 15:55] VITALS: BP 105/53
--- NOTE | 2016-08-28 19:24 | PDOC PROGRESS REPORT ---
Subjective Progress Note for:: 08/26/16 Subjective:: Patient quiet Physical Exam Vital Signs: Temp Pulse Resp BP Pulse Ox 97.6 F 74 17 110/57 L 100 08/26/16 11:07 08/26/16 14:00 08/26/16 11:07 08/26/16 11:07 08/26/16 11:07 Intake & Output 08/25/16 08/26/16 08/27/16 06:59 06:59 06:59 Intake Total 189 1219 0 Output Total 800 600 Balance -611 619 0 Weight 48.4 kg 47 kg General appearance: PRESENT: no acute distress, disheveled, well-developed Head exam: PRESENT: atraumatic, normocephalic Eye exam: PRESENT: conjunctiva pale, EOMI Mouth exam: PRESENT: moist, neck supple Neck exam: ABSENT: carotid bruit, JVD, lymphadenopathy, thyromegaly Respiratory exam: PRESENT: decreased breath sounds, prolonged expiratory phas Cardiovascular exam: PRESENT: RRR, +S1, +S2 Pulses: PRESENT: normal radial pulses Rectal exam: PRESENT: deferred Musculoskeletal exam: PRESENT: normal inspection Neurological exam: PRESENT: awake Skin exam: PRESENT: dry, warm Results Laboratory Results: 08/23/16 09:15 08/23/16 05:49 08/25/16 21:10 Urine Color YELLOW Urine Appearance SLIGHTLY-CLOUDY Urine pH 8.0 Ur Specific [place] 1.012 Urine Protein NEGATIVE Urine Glucose (UA) NEGATIVE Urine Ketones NEGATIVE Urine Blood NEGATIVE Urine Nitrite POSITIVE H Ur Leukocyte Esterase MODERATE H Urine WBC (Auto) 87 Urine RBC (Auto) 2 08/21/16 08/23/16 04:04 11:05 Troponin I 0.017 0.017 Impressions: Chest X-Ray 08/19/16 19:41 IMPRESSION: COPD. NO ACUTE RADIOGRAPHIC FINDING IN THE CHEST. Head CT 08/19/16 19:41 IMPRESSION: NORMAL BRAIN CT WITHOUT CONTRAST. Chest/Abdomen CTA 08/20/16 00:00 IMPRESSION: Obstructive lung disease No CT angio evidence of acute pulmonary emboli or thoracic aortic dissection Fluoroscopy 08/22/16 00:00 IMPRESSION: IMAGE(S) OBTAINED DURING PROCEDURE. Hip X-Ray 08/22/16 00:00 IMPRESSION: IMAGE(S) OBTAINED DURING PROCEDURE. Assessment & Plan - Diagnosis (1) Chronic obstructive lung disease Qualifiers: COPD type: unspecified COPD Qualified Code(s): J44.9 - Chronic obstructive pulmonary disease, unspecified Is this a current diagnosis for this admission?: Yes (2) Closed right hip fracture Qualifiers: Encounter type: initial encounter Qualified Code(s): S72.001A - Fracture of unspecified part of neck of right femur, initial encounter for closed fracture Is this a current diagnosis for this admission?: Yes (3) Coronary artery disease Qualifiers: Coronary Disease-Associated Artery/Lesion type: [place] artery [place] vs. transplanted heart: [place] heart Associated angina: angina presence unspecified Qualified Code(s): I25.10 - Atherosclerotic heart disease of [place] coronary artery without angina pectoris Is this a current diagnosis for this admission?: Yes (4) H/O cardiac pacemaker Is this a current diagnosis for this admission?: Yes (5) Dementia Is this a current diagnosis for this admission?: Yes (6) Closed fracture of left hip requiring operative repair Is this a current diagnosis for this admission?: Yes
== END 2016-08-27 16:40 | DRG 481 ==
LOC: ER 19:08 → EH 22:46 → UNDOADMIN 22:46 → EH 08-20 00:22 → 4N 08-20 00:22 → EH 08-20 01:46 → 3S 08-22 15:16
PROVIDERS: ADMIT Internal Medicine Geriatric Medicine; ATTEND Internal Medicine Geriatric Medicine
PROC: 0HQ1XZZ Repair Face Skin, External Approach (ICD-10-PCS; 2016-08-20)
PROC: 0QS634Z Reposition Right Upper Femur with Internal Fixation Device, Percutaneous Approach (ICD-10-PCS; principal; 2016-08-22 13:00)
DX: S72.141A Displaced intertrochanteric fracture of right femur, initial encounter for closed fracture (principal); J44.1 Chronic obstructive pulmonary disease with (acute) exacerbation; J96.12 Chronic respiratory failure with hypercapnia; J96.11 Chronic respiratory failure with hypoxia; S01.81XA Laceration without foreign body of other part of head, initial encounter; W01.0XXA Fall on same level from slipping, tripping and stumbling without subsequent striking against object, initial encounter; Y93.9 Activity, unspecified; Y92.009 Unspecified place in unspecified non-institutional (private) residence as the place of occurrence of the external cause; Y99.9 Unspecified external cause status; I10 Essential (primary) hypertension; E78.00 Pure hypercholesterolemia, unspecified; I25.10 Atherosclerotic heart disease of native coronary artery without angina pectoris; G47.30 Sleep apnea, unspecified; F41.8 Other specified anxiety disorders; M19.90 Unspecified osteoarthritis, unspecified site; Z79.899 Other long term (current) drug therapy; Z90.710 Acquired absence of both cervix and uterus; Z95.0 Presence of cardiac pacemaker; Z86.711 Personal history of pulmonary embolism; Z87.891 Personal history of nicotine dependence; Z88.8 Allergy status to other drugs, medicaments and biological substances; I25.2 Old myocardial infarction
CPT/HCPCS: 01230; 36415; 36600; 51702; 70450; 71010; 71275; 73522; 78452; 80048; 80053; 81001; 82550; 82553; 82803; 83735; 84100; 84484; 85025; 85610; 85730; 87086; 87088; 87186; 93005; 93010; 93017; 93306; 94010; 94060; 94799; 96360; 99285; A9500; C1713; G8978-GP; G8979-GP; J0131; J0690; J1100; J1642; J1650; J1741; J2250; J2370; J2405; J2704; J2765; J2785; J3010; J3490; J7030; J7120; J7620; J7626; Q9969

== ENCOUNTER 2016-10-20 16:21 | Inpatient (IN) | payer MEDICARE, OTHER ==
[2016-10-20] MEDS ORDERED: NORMAL SALINE 1000 ML 1,000 ML IV ONE (16:50)
--- NOTE | 2016-10-20 16:52 | ER Document Report ---
ED Medical Screen (RME) - General Chief Complaint: Shortness Of Breath Stated Complaint: DIFFICULTY BREATHING Time Seen by Provider: 10/20/16 16:49 Mode of Arrival: Ambulatory Information source: Patient, Relative TRAVEL OUTSIDE OF THE [place] IN LAST 30 DAYS: No - HPI Patient complains to provider of: sob Onset: Other - pt with h/o COPD on home 02 with c/o increasing SOB with cough for the past several days. - Related Data Allergies/Adverse Reactions: codeine [Codeine] Allergy (Unknown, Verified 10/20/16 16:38) erythromycin base [Erythromycin Base] Allergy (Unknown, Verified 10/20/16 16:38) Past Medical History - Social History Drug Abuse: None - Past Medical History Cardiac Medical History: Reports: Hx Hypercholesterolemia, Hx Hypertension, Hx Pulmonary Embolism Pulmonary Medical History: Reports: Hx Asthma, Hx Bronchitis, Hx COPD, Hx Pneumonia, Hx Respiratory Failure, Hx Sleep Apnea Neurological Medical History: Denies: Hx Cerebrovascular Accident Endocrine Medical History: Denies: Hx Graves' Disease Renal/ Medical History: Reports: Hx Kidney Stones - 20 year ago. Denies: Hx Ovarian Cysts, Hx Peritoneal Dialysis, Hx Pelvic Inflammatory Disease Malignancy Medical History: GI Medical History: Reports: Hx Diverticulitis, Hx Gastroesophageal Reflux Disease, Hx Ulcer. Denies: Hx Irritable Bowel, Hx Liver Failure Musculoskeltal Medical History: Reports Hx Arthritis, Denies Hx Multiple Sclerosis, Denies Hx Muscular Dystrophy Skin Medical History: Reports Hx MRSA Psychiatric Medical History: Reports: Hx Depression Denies: Hx Schizophrenia Traumatic Medical History: Denies: Hx Fractures Infectious Medical History: Past Surgical History: Reports: Hx Bowel Surgery - Old colostomy from a tear intestines resectioned, Hx Cardiac Surgery - pacemaker, Hx Colostomy - with reversal, 6 years ago, Hx Hysterectomy, Hx Orthopedic Surgery - left hip replacement 11/04/2014, Hx Pacemaker - Immunizations Immunizations up to date: Yes Hx Diphtheria, Pertussis, Tetanus Vaccination: Yes Physical Exam - Vital signs Vitals: Temp Pulse Resp BP Pulse Ox 98.6 F 113 H 22 H 133/70 H 92 10/20/16 16:37 10/20/16 16:37 10/20/16 16:37 10/20/16 16:37 10/20/16 16:37 Course - Vital Signs Vital signs: Temp Pulse Resp BP Pulse Ox 98.6 F 113 H 22 H 133/70 H 92 10/20/16 16:37 10/20/16 16:37 10/20/16 16:37 10/20/16 16:37 10/20/16 16:37
[2016-10-20 17:50] LABS: APPEARANCE,URINE SLIGHTLY-CLOUDY; BILIRUBIN,URINE NEGATIVE (NEGATIVE); GLUCOSE, URINE NEGATIVE (NEGATIVE); KETONES,URINE NEGATIVE (NEGATIVE); LEUKOCYTE ESTERASE,URINE MODERATE (NEGATIVE); NITRITE,URINE NEGATIVE (NEGATIVE); PROTEIN,URINE 30 mg/dL (NEGATIVE); URINE SPECIFIC GRAVITY 1.014; UROBILINOGEN,URINE NEGATIVE mg/dL (<2.0)
--- NOTE | 2016-10-20 18:10 | RADIOLOGY REPORT (SQ) ---
EXAM DESCRIPTION: CHEST PA/LAT COMPLETED DATE/TIME: 10/20/2016 6:01 pm REASON FOR STUDY: sob COMPARISON: 01/18/2016 EXAM PARAMETERS: NUMBER OF VIEWS: two views TECHNIQUE: Digital Frontal and Lateral radiographic views of the chest acquired. RADIATION DOSE: NA LIMITATIONS: none FINDINGS: LUNGS AND PLEURA: Chronic interstitial lung changes are present. The lungs are hyperexpan ded. There may be a minimal right pleural effusion. There is no acute infiltrate. There is no mass . MEDIASTINUM AND HILAR STRUCTURES: No masses or contour abnormalities. HEART AND VASCULAR STRUCTURES: Heart normal size. No evidence for failure. BONES: No acute findings. HARDWARE: Pacemaker on the left. Injection port on the right. OTHER: No other significant finding. IMPRESSION: Chronic lung changes with minimal right pleural effusion and no acute pulmonary disease. TECHNICAL DOCUMENTATION: JOB ID: [id number] [email or web address] All Rights Reserved
[2016-10-20] MEDS ORDERED: METHYLPREDNISOLONE INJ 125 MG/2 ML SDV IV ONE (18:35)
[2016-10-20] MEDS ORDERED: CEFTRIAXONE 1 GM/D5W RTU 1 GM/50 ML RTUPB IV ONE (18:36)
[2016-10-20] MEDS ORDERED: IPRATROPIUM/ALBUTEROL 0.5-2.5 MG/3 ML AMPUL NEB ONE ×2 (18:36→20:17)
--- NOTE | 2016-10-20 18:41 | ER Document Report ---
ED Respiratory Problem - General Chief Complaint: Shortness Of Breath Stated Complaint: DIFFICULTY BREATHING Time Seen by Provider: 10/20/16 16:49 Mode of Arrival: Ambulatory Notes: 76-year-old white female O2 dependent on 2 L/min nasal cannula oxygen with history of COPD presents with approximately 3 days of worsening shortness of breath. She has had minimal problems for about a month now but much more severe over the last 3 days with purulent green and grimaldo sputum. She has had fever at home but is unsure how high. She has chronic back and hip pain since a fall injury and fractures of the about a month ago. No new chest pain. She has found no other alleviating factors, exacerbated though by exertion. TRAVEL OUTSIDE OF THE [place] IN LAST 30 DAYS: No - Related Data Allergies/Adverse Reactions: codeine [Codeine] Allergy (Unknown, Verified 10/20/16 16:38) erythromycin base [Erythromycin Base] Allergy (Unknown, Verified 10/20/16 16:38) Past Medical History - General Information source: Patient, Relative - Social History Smoking Status: Current Some Day Smoker Drug Abuse: None Family History: CAD - This is in not immediate family members., DM, Hyperlipidemia, Hypertension - Past Medical History Cardiac Medical History: Reports: Hx Hypercholesterolemia, Hx Hypertension, Hx Pulmonary Embolism Pulmonary Medical History: Reports: Hx Asthma, Hx Bronchitis, Hx COPD, Hx Pneumonia, Hx Respiratory Failure, Hx Sleep Apnea Neurological Medical History: Denies: Hx Cerebrovascular Accident Endocrine Medical History: Denies: Hx Graves' Disease Renal/ Medical History: Reports: Hx Kidney Stones - 20 year ago. Denies: Hx Ovarian Cysts, Hx Peritoneal Dialysis, Hx Pelvic Inflammatory Disease Malignancy Medical History: GI Medical History: Reports: Hx Diverticulitis, Hx Gastroesophageal Reflux Disease, Hx Ulcer. Denies: Hx Irritable Bowel, Hx Liver Failure Musculoskeltal Medical History: Reports Hx Arthritis, Denies Hx Multiple Sclerosis, Denies Hx Muscular Dystrophy Skin Medical History: Reports Hx MRSA Psychiatric Medical History: Reports: Hx Depression Denies: Hx Schizophrenia Traumatic Medical History: Denies: Hx Fractures Infectious Medical History: Past Surgical History: Reports: Hx Bowel Surgery - Old colostomy from a tear intestines resectioned, Hx Cardiac Surgery - pacemaker, Hx Colostomy - with reversal, 6 years ago, Hx Hysterectomy, Hx Orthopedic Surgery - left hip replacement 11/04/2014, Hx Pacemaker - Immunizations Immunizations up to date: Yes Hx Diphtheria, Pertussis, Tetanus Vaccination: Yes Hx Pneumococcal Vaccination: 06/04/11 Review of Systems - Review of Systems -: Yes All other systems reviewed and negative Physical Exam - Vital signs Vitals: Temp Pulse Resp BP Pulse Ox 98.6 F 113 H 22 H 133/70 H 92 10/20/16 16:37 10/20/16 16:37 10/20/16 16:37 10/20/16 16:37 10/20/16 16:37 Notes: Temperature 98.6 pulse 113 respirations 22 O2 saturation 92% on 2 L/min nasal cannula - Notes Notes: Physical Exam: GENERAL: VS as per nursing doc. Thin appearing female in no apparent distress except mildly tachypneic. HEAD: Atraumatic, normocephalic. EYES: Mild disconjugate gaze, sclera anicteric, no conjunctival injection or discharge. ENT: Nares patent, oropharynx clear without exudates. Moist mucous membranes. NECK: Normal range of motion, supple without lymphadenopathy. LUNGS: Decreased breath sounds bilaterally with mild wheezing and rhonchi. HEART: Normal S1S2. Regular rate and rhythm with systolic murmur. Equal peripheral pulses. ABDOMEN: Soft, non-tender. Large reducible ventral hernia EXTREMITIES: Normal range of motion. No calf tenderness. Muscular atrophy noted , no edema. NEUROLOGICAL: Cranial nerves grossly intact. Normal speech. Normal sensory and motor exams. No gross cerebellar abnormalities. PSYCH: Normal mood, normal affect. SKIN: Warm, dry, no cyanosis, no splinter hemorrhages. Cap refill < 2 sec. Course - Re-evaluation Re-evalutation: 10/20/16 23:14 I woke the patient from sleep and reevaluated her. She has improved after 2 nebs and steroids here. White blood cell count was elevated but she apparently is not on steroids. She was dosed with Rocephin with the suggestion of infection by the productive sputum and elevated white blood cell count. ABG is pending and then we will move towards admission. - Vital Signs Vital signs: Temp Pulse Resp BP Pulse Ox 98.6 F 113 H 28 H 113/64 97 10/20/16 16:37 10/20/16 16:37 10/20/16 23:01 10/20/16 23:01 10/20/16 23:01 - Laboratory Result Diagrams: 10/20/16 19:03 10/20/16 19:03 Laboratory results interpreted by me: 10/20/16 10/20/16 10/20/16 17:05 19:03 19:03 WBC 18.0 H Hgb 11.0 L Hct 34.9 L MCHC 31.5 L RDW 15.6 H Seg Neutrophils % 83.5 H Lymphocytes % 6.6 L Absolute Neutrophils 15.0 H Absolute Monocytes 1.7 H Carbonic Acid ABG pH ABG pCO2 ABG pO2 ABG O2 Saturation BUN 25 H Est GFR (Non-Af Amer) 59 L Creatine Kinase 26 L Urine Protein 30 H Urine Blood SMALL H Ur Leukocyte Esterase MODERATE H 10/20/16 23:26 WBC Hgb Hct MCHC RDW Seg Neutrophils % Lymphocytes % Absolute Neutrophils Absolute Monocytes Carbonic Acid 1.54 H ABG pH 7.25 L ABG pCO2 51.3 H ABG pO2 49.1 L ABG O2 Saturation 77.8 L BUN Est GFR (Non-Af Amer) Creatine Kinase Urine Protein Urine Blood Ur Leukocyte Esterase - Diagnostic Test Radiology reviewed: Image reviewed, Reports reviewed - Chronic lung changes with very minimal right pleural effusion. No clear evidence of pneumonia. - EKG Interpretation by Me Rate: Tachycardia - Rate 110, sinus tachycardia with left axis deviation and left ventricular hypertrophy. Widened QRS. - Consults Dr. Jackson Time consulted: 00:09 - [facility] Full admit. Will put on Levaquin as Allg to [facility] Critical Care Note - Critical Care Note Total time excluding time spent on procedures (mins): 36 Discharge - Discharge Clinical Impression: Decompensated COPD with exacerbation (chronic obstructive pulmonary disease), Pneumonia Condition: Fair Disposition: ADMITTED INPATIENT Admitting Provider: Renetta Unit Admitted: [facility]
[2016-10-20 19:21] LABS: ABSOLUTE BASOPHILS # (AUTO) 0.1 10^3/uL (0.0-0.2); ABSOLUTE LYMPHOCYTES (AUTO) 1.2 10^3/uL (0.5-4.7); ABSOLUTE MONOCYTES (AUTO) 1.7 10^3/uL (0.1-1.4); BASOPHILS % (AUTO) 0.3 % (0-2); HEMATOCRIT 34.9 % (36.0-47.0); HGB HCT DIFFERENCE -1.9; LYMPHOCYTES % (AUTO) 6.6 % (13-45); MEAN CORPUSCULAR HEMOGLOBIN 27.8 pg (27.0-33.4); MEAN CORPUSCULAR HGB CONC 31.5 g/dL (32.0-36.0); MEAN CORPUSCULAR VOLUME 88 fl (80-97); MONOCYTES % (AUTO) 9.6 % (3-13); RED BLOOD COUNT 3.96 10^6/uL (3.72-5.28); RED CELL DISTRIBUTION WIDTH 15.6 % (11.5-14.0); SEGMENTED NEUTROPHILS % (AUTO) 83.5 % (42-78)
[2016-10-20 19:41] LABS: ALANINE AMINOTRANSFERASE 15 U/L (9-52); ALBUMIN 3.6 g/dL (3.5-5.0); ALKALINE PHOSPHATASE 118 U/L (38-126); ANION GAP 13 (5-19); ASPARTATE AMINO TRANSFERASE 16 U/L (14-36); BILIRUBIN,DIRECT 0.3 mg/dL (0.0-0.4); BILIRUBIN,TOTAL 0.4 mg/dL (0.2-1.3); BLOOD UREA NITROGEN 25 mg/dL (7-20); CALCIUM 9.2 mg/dL (8.4-10.2); CARBON DIOXIDE 24 mmol/L (22-30); CHLORIDE 106 mmol/L (98-107); CREATINE KINASE 26 U/L (30-135); CREATININE RESULT 0.93 mg/dL (0.52-1.25); GLUCOSE 109 mg/dL (75-110); POTASSIUM 3.9 mmol/L (3.6-5.0); SODIUM 142.5 mmol/L (137-145); TOTAL PROTEIN 6.6 g/dL (6.3-8.2)
[2016-10-20 19:53] LABS: CREATINE KINASE MB 0.43 ng/mL (<4.55)
[2016-10-20 19:59] LABS: TROPONIN I < 0.012 ng/mL
--- NOTE | 2016-10-20 22:48 | EKG REPORT ---
SEVERITY:- ABNORMAL ECG - SINUS TACHYCARDIA PROBABLE LEFT ATRIAL ABNORMALITY LEFT AXIS DEVIATION LEFT VENTRICULAR HYPERTROPHY : Confirmed by: Mervat Mancuso 20-Oct-2016 22:47:51
[2016-10-20 23:48] LABS: ARTERIAL BLOOD BASE EXCESS -5.7 mmol/L; ARTERIAL BLOOD O2 SATURATION 77.8 % (94-98)
[2016-10-21] MEDS ORDERED: NORMAL SALINE 1000 ML 1,000 ML IV ONE
[2016-10-21 06:51] LABS: HEMATOCRIT 32.5 % (36.0-47.0); HEMOGLOBIN 10.4 g/dL (12.0-15.5); HGB HCT DIFFERENCE -1.3; MEAN CORPUSCULAR HEMOGLOBIN 28.1 pg (27.0-33.4); MEAN CORPUSCULAR HGB CONC 32.1 g/dL (32.0-36.0); MEAN CORPUSCULAR VOLUME 88 fl (80-97); RED BLOOD COUNT 3.71 10^6/uL (3.72-5.28); RED CELL DISTRIBUTION WIDTH 15.9 % (11.5-14.0); WHITE BLOOD COUNT 10.5 10^3/uL (4.0-10.5)
[2016-10-21 07:05] LABS: ALANINE AMINOTRANSFERASE 18 U/L (9-52); ALBUMIN 3.2 g/dL (3.5-5.0); ALKALINE PHOSPHATASE 98 U/L (38-126); ANION GAP 11 (5-19); ASPARTATE AMINO TRANSFERASE 13 U/L (14-36); BILIRUBIN,DIRECT 0.3 mg/dL (0.0-0.4); BILIRUBIN,TOTAL 0.3 mg/dL (0.2-1.3); BLOOD UREA NITROGEN 23 mg/dL (7-20); CALCIUM 9.2 mg/dL (8.4-10.2); CARBON DIOXIDE 22 mmol/L (22-30); CHLORIDE 109 mmol/L (98-107); CREATININE RESULT 0.76 mg/dL (0.52-1.25); GLUCOSE 147 mg/dL (75-110); POTASSIUM 4.1 mmol/L (3.6-5.0); SODIUM 142.4 mmol/L (137-145); TOTAL PROTEIN 6.1 g/dL (6.3-8.2)
[2016-10-21] MEDS ORDERED: ACETAMINOPHEN 325 MG TABLET PO PRN (08:58)
[2016-10-21] MEDS ORDERED: LANSOPRAZOLE 30 MG TAB.RAP.DR PO ONE (09:15)
[2016-10-21] MEDS: NORMAL SALINE 1000 ML 1,000 ML IV PRN (10:37)
[2016-10-21 11:21] LABS: PROTHROMBIN TIME 14.1 SEC (11.4-15.4)
[2016-10-21] MEDS: LEVOFLOXACIN 500 MG/D5W RTU 500 MG/100 ML RTUPB IV SCH (11:21)
[2016-10-21] MEDS: ENOXAPARIN SODIUM INJ 30 MG/0.3 ML DISP.SYRIN SUBCUT SCH (11:21)
[2016-10-21 11:22] LABS: PARTIAL THROMBOPLASTIN TIME 21.3 SEC (23.5-35.8)
[2016-10-21] MEDS: METHYLPREDNISOLONE INJ 125 MG/2 ML SDV IV SCH ×2 (13:53→22:12)
--- NOTE | 2016-10-21 14:02 | PDOC H&P ---
History of Present Illness Admission Date/PCP: 10/21/16 08:52 [facility] Patient complains of: Difficulty with breathing, Coughing History of Present Illness: SUSAN BINGHAM is a 76 year old female known to my practice who presented to the ED with complaint of worsening difficulty with breathing for about 3 days preceding her presentation. She reported associated productive coughing with greenish brown sputum production and fever. She claimed to always be cold and chilly. she denied any chest pain. No nausea, vomiting or abdominal pain but claimed poor appetite and oral intake except for diet Coke beverage. She denied any significant headache or dizziness. There is associated nasal and sinus congestion with running nose all the time. Patient denied cigarette smoking, alcohol or recreational drug usage. Her morbidities include COPD, HTN, Hyperlipidemia, Pulmonary Embolism, GERD, Depression, osteoarthritis, Arrhythmia s/p pacemaker placement. Past Medical History Cardiac Medical History: Reports: Hyperlipidema, Hypertension, Pulmonary Embolism Pulmonary Medical History: Reports: Asthma, Bronchitis, Chronic Obstructive Pulmonary Disease (COPD), Pneumonia, Respiratory Failure, Sleep Apnea Neurological Medical History: Endocrine Medical History: Renal/ Medical History: Malignancy Medical History: GI Medical History: Reports: Diverticulitis, Gastroesophageal Reflux Disease Musculoskeltal Medical History: Reports: Arthritis Psychiatric Medical History: Reports: Depression Hematology: Infectious Medical History: Past Surgical History Past Surgical History: Reports: Colostomy - with reversal, 6 years ago, Hysterectomy, Orthopedic Surgery - left hip replacement 11/04/2014, Pacemaker Social History Smoking Status: Current Some Day Smoker Frequency of Alcohol Use: None Hx Recreational Drug Use: No Drugs: None Hx Prescription Drug Abuse: No - Advance Directive Resuscitation Status: Full Code Family History Family History: CAD - This is in not immediate family members., DM, Hyperlipidemia, Hypertension Parental Family History Reviewed: Yes Children Family History Reviewed: Yes Sibling(s) Family History Reviewed.: Yes Medication/Allergy Home Medications: Acetazolamide [Diamox 250 mg Tab] 250 mg PO BID 10/21/16 Alprazolam [Xanax 0.25 mg Tablet] 0.25 mg PO BIDP PRN 10/21/16 Buspirone HCl [Buspar 15 mg Tablet] 7.5 mg PO TID 10/21/16 Citalopram Hydrobromide [Celexa 40 mg Tablet] 1 tab PO DAILY 09/14/17 Clonazepam [Klonopin 1 mg Tablet] 1 mg PO BID 10/21/16 Montelukast Sodium [Singulair 10 mg Tablet] 10 mg PO DAILY 10/21/16 Oxycodone HCl/Acetaminophen [Percocet 7.5-325 mg Tablet] 1 tab PO TIDP PRN 10/21 Pregabalin [Lyrica 50 mg Capsule] 50 mg PO QHS 10/21/16 Promethazine HCl 25 mg PO Q6HP PRN 10/21/16 Ropinirole HCl 1 mg PO TID 10/21/16 Zolpidem Tartrate [Ambien 5 mg Tablet] 5 mg PO QPMP PRN 10/21/16 Allergies/Adverse Reactions: codeine [Codeine] Allergy (Unknown, Verified 10/20/16 16:38) erythromycin base [Erythromycin Base] Allergy (Unknown, Verified 10/20/16 16:38) Review of Systems Constitutional: PRESENT: chills, fever(s), weakness Eyes: ABSENT: visual disturbances Ears: ABSENT: hearing changes Nose, Mouth, and Throat: ABSENT: as per HPI, headache(s), mouth pain, sore throat, vertigo, other Cardiovascular: PRESENT: dyspnea on exertion. ABSENT: as per HPI, chest pain, edema, orthropnea, palpitations, other Respiratory: PRESENT: cough, dyspnea, sputum. ABSENT: as per HPI, hemoptysis, other Gastrointestinal: PRESENT: other - poor appetite and oral intake Genitourinary: ABSENT: dysuria, hematuria Musculoskeletal: PRESENT: back pain - chronic back pain, muscle weakness Integumentary: ABSENT: as per HPI, diaphoresis, erythema, lesions, pruritus, rash, wounds, other Neurological: PRESENT: weakness - generalized. ABSENT: as per HPI, abnormal gait, abnormal movements, abnormal speech, confusion, convulsions, dizziness, focal weakness, frequent falls, lack of coordination, memory loss, numbness, paresthesias, restless legs, syncope, tingling, tremor(s), vertigo, other Psychiatric: PRESENT: anxiety, depression. ABSENT: as per HPI, hallucinations, homidical ideation, suicidal ideation, other Endocrine: ABSENT: cold intolerance, heat intolerance, polydipsia, polyuria Hematologic/Lymphatic: ABSENT: easy bleeding, easy bruising, lymphadenopathy Allergic/Immunologic: PRESENT: seasonal rhinorrhea Physical Exam Vital Signs: Temp Pulse Resp BP Pulse Ox 97.4 F 69 21 H 124/60 99 10/21/16 11:52 10/21/16 11:52 10/21/16 11:52 10/21/16 11:52 10/21/16 11:52 Intake & Output 10/20/16 10/21/16 10/22/16 06:59 06:59 06:59 Intake Total 0 Balance 0 General appearance: PRESENT: mild distress - with use of supplemental oxygen via nasal cannula at 2L/min Head exam: PRESENT: atraumatic, normocephalic Eye exam: PRESENT: conjunctiva pink, EOMI, PERRLA. ABSENT: scleral icterus Ear exam: PRESENT: normal external ear exam Mouth exam: PRESENT: moist, tongue midline Throat exam: ABSENT: post pharyngeal erythema, tonsillar erythema, tonsillar exudate, tonsillogmegaly, other Neck exam: PRESENT: full ROM. ABSENT: carotid bruit, JVD, lymphadenopathy, thyromegaly Respiratory exam: PRESENT: decreased breath sounds, prolonged expiratory phas, rhonchi, wheezes Cardiovascular exam: PRESENT: RRR. ABSENT: diastolic murmur, rubs, systolic murmur Pulses: PRESENT: normal dorsalis pedis pul, +2 pedal pulses bilateral Vascular exam: PRESENT: normal capillary refill. ABSENT: pallor GI/Abdominal exam: PRESENT: normal bowel sounds, soft. ABSENT: distended, guarding, mass, organolmegaly, rebound, tenderness Rectal exam: PRESENT: deferred Extremities exam: ABSENT: pedal edema Musculoskeletal exam: PRESENT: deformity - related to multiple joints involvement with arthritis, normal inspection Neurological exam: PRESENT: alert, awake, oriented to person, oriented to place , oriented to time, oriented to situation, CN II-XII grossly intact. ABSENT: motor sensory deficit Psychiatric exam: PRESENT: appropriate affect, normal mood. ABSENT: homicidal ideation, suicidal ideation Skin exam: PRESENT: dry, intact, warm. ABSENT: cyanosis, rash Results Laboratory Results: I reviewed her lab results on Last Size and form significant part of my medical decision making. Impressions: Chest X-Ray 10/20/16 16:49 IMPRESSION: Chronic lung changes with minimal right pleural effusion and no acute pulmonary disease. Assessment & Plan - Diagnosis (1) Chronic respiratory failure with hypoxia and hypercapnia Is this a current diagnosis for this admission?: Yes Plan: See admitting attending physician orders. (2) Acute bronchitis with COPD Is this a current diagnosis for this admission?: Yes Plan: See admitting attending physician orders. (3) Pulmonary embolism Qualifiers: Pulmonary embolism type: other Chronicity: chronic Acute cor pulmonale presence: without acute cor pulmonale Qualified Code(s): I27.82 - Chronic pulmonary embolism Is this a current diagnosis for this admission?: Yes Plan: See admitting attending physician orders. (4) HTN (hypertension) Qualifiers: Hypertension type: essential hypertension Qualified Code(s): I10 - Essential (primary) hypertension Is this a current diagnosis for this admission?: Yes Plan: See admitting attending physician orders. (5) HLD (hyperlipidemia) Qualifiers: Hyperlipidemia type: pure hypercholesterolemia Qualified Code(s): E78.00 - Pure hypercholesterolemia, unspecified Is this a current diagnosis for this admission?: Yes Plan: See admitting attending physician orders. (6) GERD (gastroesophageal reflux disease) Qualifiers: Esophagitis presence: without esophagitis Qualified Code(s): K21.9 - Gastro -esophageal reflux disease without esophagitis Is this a current diagnosis for this admission?: Yes Plan: See admitting attending physician orders. (7) Osteoarthritis Qualifiers: Osteoarthritis location: unspecified site Is this a current diagnosis for this admission?: Yes Plan: See admitting attending physician orders. - Time Time Spent: 50 to 70 Minutes Medications reviewed and adjusted accordingly: Yes Anticipated discharge: Home with Homehealth Within: Other - Inpatient Certification Based on my medical assessment, after consideration of the patient's comorbidities, presenting symptoms, or acuity I expect that the services needed warrant INPATIENT care.: Yes I certify that my determination is in accordance with my understanding of Medicare's requirements for reasonable and necessary INPATIENT services [42 CFR 412.3e].: Yes Medical Necessity: Need Close Monitoring Due to Risk of Patient Decompensation, Need For IV Fluids, Need For Continuous Telemetry Monitoring, Need for Nebulizer Therapy and Monitoring of Response, Need for IV Antibiotics, Risk of Complication if Not Cared For in Hospital Post Hospital Care: D/C Furnishings Conservator Documentation - Plan Summary Plan Summary: See admitting attending physician orders.
[2016-10-21] MEDS: CEFTRIAXONE 1 GM/D5W RTU 1 GM/50 ML RTUPB IV SCH (21:01)
[2016-10-22 04:49] LABS: ABSOLUTE LYMPHOCYTES (AUTO) 0.8 10^3/uL (0.5-4.7); ABSOLUTE MONOCYTES (AUTO) 0.6 10^3/uL (0.1-1.4); ABSOLUTE NEUT (AUTO) 12.2 10^3/uL (1.7-8.2); BASOPHILS % (AUTO) 0.2 % (0-2); HEMATOCRIT 36.3 % (36.0-47.0); HEMOGLOBIN 11.5 g/dL (12.0-15.5); HGB HCT DIFFERENCE -1.8; LYMPHOCYTES % (AUTO) 5.6 % (13-45); MEAN CORPUSCULAR HEMOGLOBIN 27.4 pg (27.0-33.4); MEAN CORPUSCULAR HGB CONC 31.6 g/dL (32.0-36.0); MEAN CORPUSCULAR VOLUME 87 fl (80-97); MONOCYTES % (AUTO) 4.1 % (3-13); RED BLOOD COUNT 4.19 10^6/uL (3.72-5.28); RED CELL DISTRIBUTION WIDTH 15.6 % (11.5-14.0); SEGMENTED NEUTROPHILS % (AUTO) 90.1 % (42-78); WHITE BLOOD COUNT 13.5 10^3/uL (4.0-10.5)
[2016-10-22 05:10] LABS: ALANINE AMINOTRANSFERASE 18 U/L (9-52); ALBUMIN 3.7 g/dL (3.5-5.0); ALKALINE PHOSPHATASE 106 U/L (38-126); ANION GAP 11 (5-19); ASPARTATE AMINO TRANSFERASE 17 U/L (14-36); BILIRUBIN,DIRECT 0.3 mg/dL (0.0-0.4); BILIRUBIN,TOTAL 0.3 mg/dL (0.2-1.3); BLOOD UREA NITROGEN 28 mg/dL (7-20); CALCIUM 9.7 mg/dL (8.4-10.2); CARBON DIOXIDE 25 mmol/L (22-30); CHLORIDE 109 mmol/L (98-107); CREATININE RESULT 0.85 mg/dL (0.52-1.25); GLUCOSE 145 mg/dL (75-110); POTASSIUM 4.7 mmol/L (3.6-5.0); SODIUM 145.2 mmol/L (137-145)
[2016-10-22] MEDS: LANSOPRAZOLE 30 MG TAB.RAP.DR PO SCH (05:21)
[2016-10-22] MEDS: METHYLPREDNISOLONE INJ 125 MG/2 ML SDV IV SCH ×3 (05:22→21:17)
[2016-10-22] MEDS: LEVOFLOXACIN 500 MG/D5W RTU 500 MG/100 ML RTUPB IV SCH (10:30)
[2016-10-22] MEDS: ENOXAPARIN SODIUM INJ 30 MG/0.3 ML DISP.SYRIN SUBCUT SCH (10:30)
[2016-10-22] MEDS ORDERED: ONDANSETRON 4 MG TAB.RAPDIS PO PRN (11:15)
[2016-10-22] MEDS: OXYCODONE-ACETAMINOPHEN 5-325 MG TABLET PO PRN ×3 (11:51→21:18)
[2016-10-22] MEDS: NORMAL SALINE 1000 ML 1,000 ML IV PRN (16:00)
[2016-10-22] MEDS ORDERED: ZOLPIDEM TARTRATE 5 MG TABLET PO PRN (17:20)
[2016-10-22] MEDS: CEFTRIAXONE 1 GM/D5W RTU 1 GM/50 ML RTUPB IV SCH (17:22)
--- NOTE | 2016-10-22 17:36 | PDOC PROGRESS REPORT ---
Subjective Progress Note for:: 10/22/16 Subjective:: Patient reported form improvement in her breathing. No recurrent need for BiPAP usage. No fever or chills. No chest pain. P.O intake remain a challenge due to reported nausea but no vomiting. Remain on IV antibiotic, bronchodilatprs, and Solu-Medrol therapies. Physical Exam Vital Signs: Temp Pulse Resp BP Pulse Ox 98.1 F 60 20 118/67 97 10/22/16 13:58 10/22/16 14:00 10/22/16 13:58 10/22/16 13:58 10/22/16 13:58 Intake & Output 10/21/16 10/22/16 10/23/16 06:59 06:59 06:59 Intake Total 2165 637 Output Total 1900 500 Balance 265 137 General appearance: PRESENT: mild distress - on supplemental oxygen via nasal cannual at 2L/min. Head exam: PRESENT: atraumatic, normocephalic Eye exam: PRESENT: conjunctiva pink. ABSENT: conjunctiva pale, scleral icterus Mouth exam: PRESENT: moist Respiratory exam: PRESENT: decreased breath sounds, prolonged expiratory phas, rhonchi - minimal end expiratory phase., wheezes - minimal Cardiovascular exam: PRESENT: RRR. ABSENT: diastolic murmur, rubs, systolic murmur GI/Abdominal exam: PRESENT: normal bowel sounds, soft. ABSENT: distended, guarding, mass, organolmegaly, rebound, tenderness Extremities exam: ABSENT: pedal edema Musculoskeletal exam: PRESENT: deformity - related to osteoarthritis Neurological exam: PRESENT: alert, awake, oriented to person, oriented to place , oriented to time, oriented to situation, CN II-XII grossly intact. ABSENT: motor sensory deficit Psychiatric exam: PRESENT: appropriate affect, normal mood. ABSENT: homicidal ideation, suicidal ideation Skin exam: PRESENT: dry, intact, warm. ABSENT: cyanosis, rash Results Laboratory Results: 10/22/16 04:36 10/22/16 04:36 10/22/16 10/22/16 04:36 04:36 WBC 13.5 H RBC 4.19 Hgb 11.5 L Hct 36.3 MCV 87 MCH 27.4 MCHC 31.6 L RDW 15.6 H Plt Count 310 Seg Neutrophils % 90.1 H Lymphocytes % 5.6 L Monocytes % 4.1 Eosinophils % 0.0 Basophils % 0.2 Absolute Neutrophils 12.2 H Absolute Lymphocytes 0.8 Absolute Monocytes 0.6 Absolute Eosinophils 0.0 Absolute Basophils 0.0 Sodium 145.2 H Potassium 4.7 Chloride 109 H Carbon Dioxide 25 Anion Gap 11 BUN 28 H Creatinine 0.85 Est GFR ( Amer) > 60 Est GFR (Non-Af Amer) > 60 Glucose 145 H Calcium 9.7 Total Bilirubin 0.3 AST 17 ALT 18 Alkaline Phosphatase 106 Total Protein 7.0 Albumin 3.7 Impressions: Chest X-Ray 10/20/16 16:49 IMPRESSION: Chronic lung changes with minimal right pleural effusion and no acute pulmonary disease. Assessment & Plan - Diagnosis (1) Chronic respiratory failure with hypoxia and hypercapnia Is this a current diagnosis for this admission?: Yes (2) Acute bronchitis with COPD Is this a current diagnosis for this admission?: Yes (3) Pulmonary embolism Qualifiers: Pulmonary embolism type: other Chronicity: chronic Acute cor pulmonale presence: without acute cor pulmonale Qualified Code(s): I27.82 - Chronic pulmonary embolism Is this a current diagnosis for this admission?: Yes (4) HTN (hypertension) Qualifiers: Hypertension type: essential hypertension Qualified Code(s): I10 - Essential (primary) hypertension Is this a current diagnosis for this admission?: Yes (5) HLD (hyperlipidemia) Qualifiers: Hyperlipidemia type: pure hypercholesterolemia Qualified Code(s): E78.00 - Pure hypercholesterolemia, unspecified Is this a current diagnosis for this admission?: Yes (6) GERD (gastroesophageal reflux disease) Qualifiers: Esophagitis presence: without esophagitis Qualified Code(s): K21.9 - Gastro -esophageal reflux disease without esophagitis Is this a current diagnosis for this admission?: Yes (7) Osteoarthritis Qualifiers: Osteoarthritis location: unspecified site Is this a current diagnosis for this admission?: Yes - Time Time Spent with patient: 25-34 minutes Medications reviewed and adjusted accordingly: Yes Anticipated discharge: Home with Homehealth - Inpatient Certification Based on my medical assessment, after consideration of the patient's comorbidities, presenting symptoms, or acuity I expect that the services needed warrant INPATIENT care.: Yes Medical Necessity: Need Close Monitoring Due to Risk of Patient Decompensation, Need For IV Fluids, Need For Continuous Telemetry Monitoring, Need for Nebulizer Therapy and Monitoring of Response, Need for IV Antibiotics, Risk of Complication if Not Cared For in Hospital Post Hospital Care: D/C Shellfish Farming Supervisor Documentation - Plan Summary Plan Summary: Decrease IV Solu-Medrol to 80 mg q8hrs, Maintain on all other current medication management. I will hold off on most of her [employer] depressing home medications. Encouraged increase P.O intake with oral supplementations of Glucerna.
[2016-10-22] MEDS: ACETAZOLAMIDE 250 MG TABLET PO SCH (17:43)
[2016-10-22] MEDS ORDERED: ROPINIROLE HCL 1 MG TABLET PO SCH (18:00)
[2016-10-22] MEDS: IPRATROPIUM/ALBUTEROL 0.5-2.5 MG/3 ML AMPUL NEB PRN (20:57)
[2016-10-22] MEDS: PREGABALIN 50 MG CAPSULE PO SCH (21:17)
[2016-10-22] MEDS: ROPINIROLE HCL 1 MG TABLET PO SCH (21:18)
[2016-10-23] MEDS: METHYLPREDNISOLONE INJ 125 MG/2 ML SDV IV SCH ×3 (05:11→21:21)
[2016-10-23] MEDS: LANSOPRAZOLE 30 MG TAB.RAP.DR PO SCH (05:11)
[2016-10-23] MEDS: ROPINIROLE HCL 1 MG TABLET PO SCH ×3 (05:11→21:20)
[2016-10-23] MEDS: OXYCODONE-ACETAMINOPHEN 5-325 MG TABLET PO PRN ×2 (05:11→13:23)
[2016-10-23] MEDS: LEVOFLOXACIN 500 MG/D5W RTU 500 MG/100 ML RTUPB IV SCH (09:54)
[2016-10-23] MEDS: ACETAZOLAMIDE 250 MG TABLET PO SCH ×2 (09:54→17:10)
[2016-10-23] MEDS: ENOXAPARIN SODIUM INJ 30 MG/0.3 ML DISP.SYRIN SUBCUT SCH (09:54)
--- NOTE | 2016-10-23 14:24 | PDOC PROGRESS REPORT ---
Subjective Progress Note for:: 10/23/16 Subjective:: Out of bed in chair. Remain on supplemental oxygen via nasal cannula. No chest pain, fever or chills. P.O intake and nausea are improving. No vomiting. Remain on IV antibiotic, bronchodilators, and Solu-Medrol therapies. Physical Exam Vital Signs: Temp Pulse Resp BP Pulse Ox 97.3 F 60 23 H 125/61 97 10/23/16 11:58 10/23/16 13:37 10/23/16 11:58 10/23/16 11:58 10/23/16 11:58 Intake & Output 10/22/16 10/23/16 10/24/16 06:59 06:59 06:59 Intake Total 2165 3449 480 Output Total 1900 500 600 Balance 265 2949 -120 Weight 44.6 kg Physical Exam: General appearance: PRESENT: mild distress - on supplemental oxygen via nasal cannula at 2L/min. Head exam: PRESENT: atraumatic, normocephalic Eye exam: PRESENT: conjunctiva pink. ABSENT: conjunctiva pale, scleral icterus Mouth exam: PRESENT: moist Respiratory exam: PRESENT: decreased breath sounds, prolonged expiratory phase, rhonchi - minimal end expiratory phase., wheezes - minimal Cardiovascular exam: PRESENT: RRR. ABSENT: diastolic murmur, rubs, systolic murmur GI/Abdominal exam: PRESENT: normal bowel sounds, soft. ABSENT: distended, guarding, mass, organomegaly, rebound, tenderness Extremities exam: ABSENT: pedal edema Musculoskeletal exam: PRESENT: deformity - related to osteoarthritis Neurological exam: PRESENT: alert, awake, oriented to person, oriented to place , oriented to time, oriented to situation, CN II-XII grossly intact. ABSENT: motor sensory deficit Psychiatric exam: PRESENT: appropriate affect, normal mood. ABSENT: homicidal ideation, suicidal ideation Skin exam: PRESENT: dry, intact, warm. ABSENT: cyanosis, rash Results Laboratory Results: 10/22/16 04:36 10/22/16 04:36 Impressions: Chest X-Ray 10/20/16 16:49 IMPRESSION: Chronic lung changes with minimal right pleural effusion and no acute pulmonary disease. Assessment & Plan - Diagnosis (1) Chronic respiratory failure with hypoxia and hypercapnia Is this a current diagnosis for this admission?: Yes (2) Acute bronchitis with COPD Is this a current diagnosis for this admission?: Yes (3) Pulmonary embolism Qualifiers: Pulmonary embolism type: other Chronicity: chronic Acute cor pulmonale presence: without acute cor pulmonale Qualified Code(s): I27.82 - Chronic pulmonary embolism Is this a current diagnosis for this admission?: Yes (4) HTN (hypertension) Qualifiers: Hypertension type: essential hypertension Qualified Code(s): I10 - Essential (primary) hypertension Is this a current diagnosis for this admission?: Yes (5) HLD (hyperlipidemia) Qualifiers: Hyperlipidemia type: pure hypercholesterolemia Qualified Code(s): E78.00 - Pure hypercholesterolemia, unspecified Is this a current diagnosis for this admission?: Yes (6) GERD (gastroesophageal reflux disease) Qualifiers: Esophagitis presence: without esophagitis Qualified Code(s): K21.9 - Gastro -esophageal reflux disease without esophagitis Is this a current diagnosis for this admission?: Yes (7) Osteoarthritis Qualifiers: Osteoarthritis location: unspecified site Is this a current diagnosis for this admission?: Yes - Time Time Spent with patient: 25-34 minutes Medications reviewed and adjusted accordingly: Yes Anticipated discharge: Home with Homehealth Within: Other - Inpatient Certification Based on my medical assessment, after consideration of the patient's comorbidities, presenting symptoms, or acuity I expect that the services needed warrant INPATIENT care.: Yes I certify that my determination is in accordance with my understanding of Medicare's requirements for reasonable and necessary INPATIENT services [42 CFR 412.3e].: Yes Medical Necessity: Need Close Monitoring Due to Risk of Patient Decompensation, Need For IV Fluids, Need For Continuous Telemetry Monitoring, Need for Nebulizer Therapy and Monitoring of Response, Need for IV Antibiotics, Risk of Complication if Not Cared For in Hospital Post Hospital Care: D/C Metal Reed Tuner 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
[2016-10-23] MEDS: CEFTRIAXONE 1 GM/D5W RTU 1 GM/50 ML RTUPB IV SCH (17:11)
[2016-10-23] MEDS: PREGABALIN 50 MG CAPSULE PO SCH (21:20)
[2016-10-23] MEDS: NORMAL SALINE 1000 ML 1,000 ML IV PRN (21:20)
[2016-10-24] MEDS: METHYLPREDNISOLONE INJ 125 MG/2 ML SDV IV SCH ×2 (06:04→13:30)
[2016-10-24] MEDS: ROPINIROLE HCL 1 MG TABLET PO SCH ×3 (06:04→21:17)
[2016-10-24] MEDS: LANSOPRAZOLE 30 MG TAB.RAP.DR PO SCH (06:04)
[2016-10-24 06:31] LABS: ABSOLUTE LYMPHOCYTES (AUTO) 1.2 10^3/uL (0.5-4.7); ABSOLUTE MONOCYTES (AUTO) 1.4 10^3/uL (0.1-1.4); BASOPHILS % (AUTO) 0.1 % (0-2); HEMATOCRIT 33.3 % (36.0-47.0); HEMOGLOBIN 10.5 g/dL (12.0-15.5); HGB HCT DIFFERENCE -1.8; MEAN CORPUSCULAR HEMOGLOBIN 27.6 pg (27.0-33.4); MEAN CORPUSCULAR HGB CONC 31.4 g/dL (32.0-36.0); MEAN CORPUSCULAR VOLUME 88 fl (80-97); MONOCYTES % (AUTO) 10.1 % (3-13); RED BLOOD COUNT 3.78 10^6/uL (3.72-5.28); RED CELL DISTRIBUTION WIDTH 15.7 % (11.5-14.0); SEGMENTED NEUTROPHILS % (AUTO) 80.8 % (42-78); WHITE BLOOD COUNT 13.6 10^3/uL (4.0-10.5)
[2016-10-24 06:41] LABS: ANION GAP 7 (5-19); BLOOD UREA NITROGEN 25 mg/dL (7-20); CALCIUM 9.1 mg/dL (8.4-10.2); CARBON DIOXIDE 25 mmol/L (22-30); CHLORIDE 111 mmol/L (98-107); GLUCOSE 117 mg/dL (75-110); POTASSIUM 3.7 mmol/L (3.6-5.0); SODIUM 142.6 mmol/L (137-145)
[2016-10-24] MEDS: ACETAZOLAMIDE 250 MG TABLET PO SCH ×2 (09:37→17:11)
[2016-10-24] MEDS: OXYCODONE-ACETAMINOPHEN 5-325 MG TABLET PO PRN ×2 (09:37→17:12)
[2016-10-24] MEDS: LEVOFLOXACIN 500 MG/D5W RTU 500 MG/100 ML RTUPB IV SCH (09:38)
[2016-10-24] MEDS: ENOXAPARIN SODIUM INJ 30 MG/0.3 ML DISP.SYRIN SUBCUT SCH (09:39)
[2016-10-24] MEDS ORDERED: METHYLPREDNISOLONE INJ 125 MG/2 ML SDV IV SCH (13:56)
[2016-10-24] MEDS ORDERED: (PENDING PHARMACY ID) (Buspirone Hcl [Buspar 15 Mg Tablet] 7.5 MG) PO SCH (14:00)
--- NOTE | 2016-10-24 14:02 | PDOC PROGRESS REPORT ---
Subjective Progress Note for:: 10/24/16 Subjective:: No chest pain, fever or chills. P.O intake and nausea are improving. No vomiting. Remain on IV antibiotic, bronchodilators, and Solu-Medrol therapies. Physical Exam Vital Signs: Temp Pulse Resp BP Pulse Ox 97.8 F 59 L 23 H 130/61 H 100 10/24/16 11:28 10/24/16 11:28 10/24/16 11:28 10/24/16 11:28 10/24/16 11:28 Intake & Output 10/23/16 10/24/16 10/25/16 06:59 06:59 06:59 Intake Total 3449 3170 240 Output Total 500 2200 200 Balance 2949 970 40 Weight 44.6 kg Physical Exam: General appearance: PRESENT: mild distress - on supplemental oxygen via nasal cannula at 2L/min. Head exam: PRESENT: atraumatic, normocephalic Eye exam: PRESENT: conjunctiva pink. ABSENT: conjunctiva pale, scleral icterus Mouth exam: PRESENT: moist Respiratory exam: PRESENT: decreased breath sounds, prolonged expiratory phase, rhonchi - minimal end expiratory phase., wheezes - minimal Cardiovascular exam: PRESENT: RRR. ABSENT: diastolic murmur, rubs, systolic murmur GI/Abdominal exam: PRESENT: normal bowel sounds, soft. ABSENT: distended, guarding, mass, organomegaly, rebound, tenderness Extremities exam: ABSENT: pedal edema Musculoskeletal exam: PRESENT: deformity - related to osteoarthritis Neurological exam: PRESENT: alert, awake, oriented to person, oriented to place , oriented to time, oriented to situation, CN II-XII grossly intact. ABSENT: motor sensory deficit Psychiatric exam: PRESENT: appropriate affect, normal mood. ABSENT: homicidal ideation, suicidal ideation Skin exam: PRESENT: dry, intact, warm. ABSENT: cyanosis, rash Results Laboratory Results: 10/24/16 06:00 10/24/16 06:00 10/24/16 10/24/16 06:00 06:00 WBC 13.6 H RBC 3.78 Hgb 10.5 L Hct 33.3 L MCV 88 MCH 27.6 MCHC 31.4 L RDW 15.7 H Plt Count 353 Seg Neutrophils % 80.8 H Lymphocytes % 9.0 L Monocytes % 10.1 Eosinophils % 0.0 Basophils % 0.1 Absolute Neutrophils 11.0 H Absolute Lymphocytes 1.2 Absolute Monocytes 1.4 Absolute Eosinophils 0.0 Absolute Basophils 0.0 Sodium 142.6 Potassium 3.7 Chloride 111 H Carbon Dioxide 25 Anion Gap 7 BUN 25 H Creatinine 0.90 Est GFR ( Amer) > 60 Est GFR (Non-Af Amer) > 60 Glucose 117 H Calcium 9.1 Impressions: Chest X-Ray 10/20/16 16:49 IMPRESSION: Chronic lung changes with minimal right pleural effusion and no acute pulmonary disease. Assessment & Plan - Diagnosis (1) Chronic respiratory failure with hypoxia and hypercapnia Is this a current diagnosis for this admission?: Yes (2) Acute bronchitis with COPD Is this a current diagnosis for this admission?: Yes (3) Pulmonary embolism Qualifiers: Pulmonary embolism type: other Chronicity: chronic Acute cor pulmonale presence: without acute cor pulmonale Qualified Code(s): I27.82 - Chronic pulmonary embolism Is this a current diagnosis for this admission?: Yes (4) HTN (hypertension) Qualifiers: Hypertension type: essential hypertension Qualified Code(s): I10 - Essential (primary) hypertension Is this a current diagnosis for this admission?: Yes (5) HLD (hyperlipidemia) Qualifiers: Hyperlipidemia type: pure hypercholesterolemia Qualified Code(s): E78.00 - Pure hypercholesterolemia, unspecified Is this a current diagnosis for this admission?: Yes (6) GERD (gastroesophageal reflux disease) Qualifiers: Esophagitis presence: without esophagitis Qualified Code(s): K21.9 - Gastro -esophageal reflux disease without esophagitis Is this a current diagnosis for this admission?: Yes (7) Osteoarthritis Qualifiers: Osteoarthritis location: unspecified site Is this a current diagnosis for this admission?: Yes - Time Time Spent with patient: 25-34 minutes Medications reviewed and adjusted accordingly: Yes Anticipated discharge: Home with Homehealth Within: Other - Inpatient Certification Based on my medical assessment, after consideration of the patient's comorbidities, presenting symptoms, or acuity I expect that the services needed warrant INPATIENT care.: Yes I certify that my determination is in accordance with my understanding of Medicare's requirements for reasonable and necessary INPATIENT services [42 CFR 412.3e].: Yes Medical Necessity: Need Close Monitoring Due to Risk of Patient Decompensation, Need For IV Fluids, Need For Continuous Telemetry Monitoring, Need for Nebulizer Therapy and Monitoring of Response, Need for IV Antibiotics, Risk of Complication if Not Cared For in Hospital 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
[2016-10-24] MEDS: METHYLPREDNISOLONE INJ 40 MG/1 ML SDV IV SCH ×2 (15:06→21:17)
[2016-10-24] MEDS: IPRATROPIUM/ALBUTEROL 0.5-2.5 MG/3 ML AMPUL NEB PRN (16:20)
[2016-10-24] MEDS: CEFTRIAXONE 1 GM/D5W RTU 1 GM/50 ML RTUPB IV SCH (17:12)
[2016-10-24] MEDS: ALPRAZOLAM 0.25 MG TABLET PO PRN ×2 (17:13→21:17)
[2016-10-24] MEDS: PREGABALIN 50 MG CAPSULE PO SCH (21:17)
[2016-10-25] MEDS: LANSOPRAZOLE 30 MG TAB.RAP.DR PO SCH (06:25)
[2016-10-25] MEDS: METHYLPREDNISOLONE INJ 40 MG/1 ML SDV IV SCH ×2 (06:25→13:34)
[2016-10-25] MEDS: NORMAL SALINE 1000 ML 1,000 ML IV PRN (06:25)
[2016-10-25] MEDS: ROPINIROLE HCL 1 MG TABLET PO SCH ×3 (06:25→21:33)
[2016-10-25] MEDS: ENOXAPARIN SODIUM INJ 30 MG/0.3 ML DISP.SYRIN SUBCUT SCH (09:17)
[2016-10-25] MEDS: MONTELUKAST SODIUM 10 MG TABLET PO SCH (09:18)
[2016-10-25] MEDS: ACETAZOLAMIDE 250 MG TABLET PO SCH ×2 (09:18→18:32)
[2016-10-25] MEDS: CITALOPRAM HYDROBROMIDE 20 MG TABLET PO SCH (09:19)
[2016-10-25] MEDS: LEVOFLOXACIN 500 MG/D5W RTU 500 MG/100 ML RTUPB IV SCH (09:19)
[2016-10-25] MEDS ORDERED: (PENDING PHARMACY ID) (Citalopram Hydrobromide [Celexa 40 Mg Tablet] 1 TAB) PO SCH (10:00)
--- NOTE | 2016-10-25 14:23 | PDOC PROGRESS REPORT ---
Subjective Progress Note for:: 10/25/16 Subjective:: Patient reported improvement in her breathing. No chest pain, fever or chills. P.O intake improving. No nausea, vomiting or abdominal pain. Remain on IV antibiotic, bronchodilators, and Solu-Medrol therapies. Physical Exam Vital Signs: Temp Pulse Resp BP Pulse Ox 97.9 F 81 16 149/54 H 100 10/25/16 12:12 10/25/16 14:00 10/25/16 12:12 10/25/16 12:12 10/25/16 12:12 Intake & Output 10/24/16 10/25/16 10/26/16 06:59 06:59 06:59 Intake Total 3170 2497 Output Total 2200 1500 Balance 970 997 Physical Exam: General appearance: PRESENT: mild distress - on supplemental oxygen via nasal cannula at 2L/min. Head exam: PRESENT: atraumatic, normocephalic Eye exam: PRESENT: conjunctiva pink. ABSENT: conjunctiva pale, scleral icterus Mouth exam: PRESENT: moist Respiratory exam: PRESENT: decreased breath sounds, prolonged expiratory phase, rhonchi - minimal end expiratory phase., wheezes - minimal Cardiovascular exam: PRESENT: RRR. ABSENT: diastolic murmur, rubs, systolic murmur GI/Abdominal exam: PRESENT: normal bowel sounds, soft. ABSENT: distended, guarding, mass, organomegaly, rebound, tenderness Extremities exam: ABSENT: pedal edema Musculoskeletal exam: PRESENT: deformity - related to osteoarthritis Neurological exam: PRESENT: alert, awake, oriented to person, oriented to place , oriented to time, oriented to situation, CN II-XII grossly intact. ABSENT: motor sensory deficit Psychiatric exam: PRESENT: appropriate affect, normal mood. ABSENT: homicidal ideation, suicidal ideation Skin exam: PRESENT: dry, intact, warm. ABSENT: cyanosis, rash Results Laboratory Results: 10/24/16 06:00 10/24/16 06:00 Impressions: Chest X-Ray 10/20/16 16:49 IMPRESSION: Chronic lung changes with minimal right pleural effusion and no acute pulmonary disease. Assessment & Plan - Diagnosis (1) Chronic respiratory failure with hypoxia and hypercapnia Is this a current diagnosis for this admission?: Yes (2) Acute bronchitis with COPD Is this a current diagnosis for this admission?: Yes (3) Pulmonary embolism Qualifiers: Pulmonary embolism type: other Chronicity: chronic Acute cor pulmonale presence: without acute cor pulmonale Qualified Code(s): I27.82 - Chronic pulmonary embolism Is this a current diagnosis for this admission?: Yes (4) HTN (hypertension) Qualifiers: Hypertension type: essential hypertension Qualified Code(s): I10 - Essential (primary) hypertension Is this a current diagnosis for this admission?: Yes (5) HLD (hyperlipidemia) Qualifiers: Hyperlipidemia type: pure hypercholesterolemia Qualified Code(s): E78.00 - Pure hypercholesterolemia, unspecified Is this a current diagnosis for this admission?: Yes (6) GERD (gastroesophageal reflux disease) Qualifiers: Esophagitis presence: without esophagitis Qualified Code(s): K21.9 - Gastro -esophageal reflux disease without esophagitis Is this a current diagnosis for this admission?: Yes (7) Osteoarthritis Qualifiers: Osteoarthritis location: unspecified site Is this a current diagnosis for this admission?: Yes - Time Time Spent with patient: 25-34 minutes Medications reviewed and adjusted accordingly: Yes Anticipated discharge: Home with Homehealth Within: within 48 hours - Inpatient Certification Based on my medical assessment, after consideration of the patient's comorbidities, presenting symptoms, or acuity I expect that the services needed warrant INPATIENT care.: Yes I certify that my determination is in accordance with my understanding of Medicare's requirements for reasonable and necessary INPATIENT services [42 CFR 412.3e].: Yes Medical Necessity: Need Close Monitoring Due to Risk of Patient Decompensation, Need For IV Fluids, Need For Continuous Telemetry Monitoring, Need for Nebulizer Therapy and Monitoring of Response, Need for IV Antibiotics, Risk of Complication if Not Cared For in Hospital 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 Maintain on IV Antibiotic therapy. Blood culture is no growth x 4 days. If she continue to improve, consider discharge home tomorrow on oral antibiotic.
[2016-10-25] MEDS ORDERED: ZOLPIDEM TARTRATE 5 MG TABLET PO PRN (15:00)
[2016-10-25] MEDS: OXYCODONE-ACETAMINOPHEN 5-325 MG TABLET PO PRN ×2 (16:10→21:33)
[2016-10-25] MEDS: CEFTRIAXONE 1 GM/D5W RTU 1 GM/50 ML RTUPB IV SCH (18:32)
[2016-10-25] MEDS: ALPRAZOLAM 0.25 MG TABLET PO PRN (18:36)
[2016-10-25] MEDS: PREGABALIN 50 MG CAPSULE PO SCH (21:33)
[2016-10-26] MEDS: ROPINIROLE HCL 1 MG TABLET PO SCH ×3 (05:40→21:46)
[2016-10-26] MEDS: LANSOPRAZOLE 30 MG TAB.RAP.DR PO SCH (05:40)
[2016-10-26] MEDS: MONTELUKAST SODIUM 10 MG TABLET PO SCH (09:58)
[2016-10-26] MEDS: ACETAZOLAMIDE 250 MG TABLET PO SCH ×2 (10:01→17:47)
[2016-10-26] MEDS: CITALOPRAM HYDROBROMIDE 20 MG TABLET PO SCH (10:01)
[2016-10-26] MEDS: PREDNISONE 20 MG TABLET PO SCH (10:02)
[2016-10-26] MEDS: ENOXAPARIN SODIUM INJ 30 MG/0.3 ML DISP.SYRIN SUBCUT SCH (10:03)
[2016-10-26] MEDS: LEVOFLOXACIN 500 MG/D5W RTU 500 MG/100 ML RTUPB IV SCH (10:03)
[2016-10-26] MEDS: IPRATROPIUM/ALBUTEROL 0.5-2.5 MG/3 ML AMPUL NEB PRN (13:39)
[2016-10-26] MEDS: CEFTRIAXONE 1 GM/D5W RTU 1 GM/50 ML RTUPB IV SCH (17:47)
--- NOTE | 2016-10-26 19:49 | PDOC PROGRESS REPORT ---
Subjective Progress Note for:: 10/26/16 Subjective:: Patient continue to improve with regard to her breathing. She denied any chest pain, fever or chills. P.O intake improving. No nausea, vomiting or abdominal pain. Remain on IV antibiotic, bronchodilators, and oral prednisone. Physical Exam Vital Signs: Temp Pulse Resp BP Pulse Ox 98.5 F 71 24 H 135/56 H 99 10/26/16 15:06 10/26/16 15:06 10/26/16 15:06 10/26/16 15:06 10/26/16 15:06 Intake & Output 10/25/16 10/26/16 10/27/16 06:59 06:59 06:59 Intake Total 2497 3561 200 Output Total 1500 1200 1100 Balance 997 2361 -900 Physical Exam: General appearance: PRESENT: mild distress - on supplemental oxygen via nasal cannula at 2L/min. Head exam: PRESENT: atraumatic, normocephalic Eye exam: PRESENT: conjunctiva pink. ABSENT: conjunctiva pale, scleral icterus Mouth exam: PRESENT: moist Respiratory exam: PRESENT: decreased breath sounds, prolonged expiratory phase, rhonchi - minimal end expiratory phase., wheezes - minimal Cardiovascular exam: PRESENT: RRR. ABSENT: diastolic murmur, rubs, systolic murmur GI/Abdominal exam: PRESENT: normal bowel sounds, soft. ABSENT: distended, guarding, mass, organomegaly, rebound, tenderness Extremities exam: ABSENT: pedal edema Musculoskeletal exam: PRESENT: deformity - related to osteoarthritis Neurological exam: PRESENT: alert, awake, oriented to person, oriented to place , oriented to time, oriented to situation, CN II-XII grossly intact. ABSENT: motor sensory deficit Psychiatric exam: PRESENT: appropriate affect, normal mood. ABSENT: homicidal ideation, suicidal ideation Skin exam: PRESENT: dry, intact, warm. ABSENT: cyanosis, rash Results Laboratory Results: 10/24/16 06:00 10/24/16 06:00 Impressions: Chest X-Ray 10/20/16 16:49 IMPRESSION: Chronic lung changes with minimal right pleural effusion and no acute pulmonary disease. Assessment & Plan - Diagnosis (1) Chronic respiratory failure with hypoxia and hypercapnia Is this a current diagnosis for this admission?: Yes (2) Acute bronchitis with COPD Is this a current diagnosis for this admission?: Yes (3) Pulmonary embolism Qualifiers: Pulmonary embolism type: other Chronicity: chronic Acute cor pulmonale presence: without acute cor pulmonale Qualified Code(s): I27.82 - Chronic pulmonary embolism Is this a current diagnosis for this admission?: Yes (4) HTN (hypertension) Qualifiers: Hypertension type: essential hypertension Qualified Code(s): I10 - Essential (primary) hypertension Is this a current diagnosis for this admission?: Yes (5) HLD (hyperlipidemia) Qualifiers: Hyperlipidemia type: pure hypercholesterolemia Qualified Code(s): E78.00 - Pure hypercholesterolemia, unspecified Is this a current diagnosis for this admission?: Yes (6) GERD (gastroesophageal reflux disease) Qualifiers: Esophagitis presence: without esophagitis Qualified Code(s): K21.9 - Gastro -esophageal reflux disease without esophagitis Is this a current diagnosis for this admission?: Yes (7) Osteoarthritis Qualifiers: Osteoarthritis location: unspecified site Is this a current diagnosis for this admission?: Yes - Time Time Spent with patient: 25-34 minutes Medications reviewed and adjusted accordingly: Yes Anticipated discharge: Home with Homehealth Within: within 24 hours - Inpatient Certification Based on my medical assessment, after consideration of the patient's comorbidities, presenting symptoms, or acuity I expect that the services needed warrant INPATIENT care.: Yes I certify that my determination is in accordance with my understanding of Medicare's requirements for reasonable and necessary INPATIENT services [42 CFR 412.3e].: Yes Medical Necessity: Need Close Monitoring Due to Risk of Patient Decompensation, Need For IV Fluids, Need For Continuous Telemetry Monitoring, Need for Nebulizer Therapy and Monitoring of Response, Need for IV Antibiotics, Risk of Complication if Not Cared For in Hospital Post Hospital 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 Start on oral Levofloxacin 500 mg po daily. I did discuss with patient possible discharge home tomorrow.
[2016-10-26] MEDS: PREGABALIN 50 MG CAPSULE PO SCH (21:46)
[2016-10-26] MEDS: ALPRAZOLAM 0.25 MG TABLET PO PRN (21:46)
[2016-10-26] MEDS: OXYCODONE-ACETAMINOPHEN 5-325 MG TABLET PO PRN (21:46)
[2016-10-27] MEDS: LANSOPRAZOLE 30 MG TAB.RAP.DR PO SCH (05:13)
[2016-10-27] MEDS: ROPINIROLE HCL 1 MG TABLET PO SCH ×2 (05:14→14:10)
[2016-10-27] MEDS ORDERED: LEVOFLOXACIN 500 MG TABLET PO SCH (10:00)
[2016-10-27] MEDS: ACETAZOLAMIDE 250 MG TABLET PO SCH ×2 (11:22→17:42)
[2016-10-27] MEDS: CITALOPRAM HYDROBROMIDE 20 MG TABLET PO SCH (11:22)
[2016-10-27] MEDS: PREDNISONE 20 MG TABLET PO SCH (11:22)
[2016-10-27] MEDS: MONTELUKAST SODIUM 10 MG TABLET PO SCH (11:24)
[2016-10-27] MEDS: ENOXAPARIN SODIUM INJ 30 MG/0.3 ML DISP.SYRIN SUBCUT SCH (11:24)
[2016-10-27] MEDS: IPRATROPIUM/ALBUTEROL 0.5-2.5 MG/3 ML AMPUL NEB PRN (14:22)
[2016-10-27] MEDS: ALPRAZOLAM 0.25 MG TABLET PO PRN (17:48)
[2016-10-27] MEDS: NORMAL SALINE 1000 ML 1,000 ML IV PRN (17:48)
--- NOTE | 2016-10-27 18:53 | PDOC DISCHARGE SUMMARY ---
General - Admit/Disc Date/PCP Admission Date/Primary Care Provider: 10/21/16 08:52 SARITA CASTILLO Discharge Date: 10/27/16 - Discharge Diagnosis (1) Chronic respiratory failure with hypoxia and hypercapnia Is this a current diagnosis for this admission?: Yes (2) Acute bronchitis with COPD Is this a current diagnosis for this admission?: Yes (3) Pulmonary embolism Is this a current diagnosis for this admission?: Yes (4) HTN (hypertension) Is this a current diagnosis for this admission?: Yes (5) HLD (hyperlipidemia) Is this a current diagnosis for this admission?: Yes (6) GERD (gastroesophageal reflux disease) Is this a current diagnosis for this admission?: Yes (7) Osteoarthritis Is this a current diagnosis for this admission?: Yes - Additional Information Resuscitation Status: Full Code Discharge Diet: Regular Discharge Activity: Activity As Tolerated, Slowly Increase Activity Home Medications: Acetazolamide [Diamox 250 mg Tab] 250 mg PO BID 10/21/16 Alprazolam [Xanax 0.25 mg Tablet] 0.25 mg PO BIDP PRN 10/21/16 Buspirone HCl [Buspar 15 mg Tablet] 7.5 mg PO TID 10/21/16 Citalopram Hydrobromide [Celexa 40 mg Tablet] 1 tab PO DAILY 10/21/16 Clonazepam [Klonopin 1 mg Tablet] 1 mg PO BID 10/21/16 Montelukast Sodium [Singulair 10 mg Tablet] 10 mg PO DAILY 10/21/16 Oxycodone HCl/Acetaminophen [Percocet 7.5-325 mg Tablet] 1 tab PO TIDP PRN 10/21 Pregabalin [Lyrica 50 mg Capsule] 50 mg PO QHS 10/21/16 Promethazine HCl 25 mg PO Q6HP PRN 10/21/16 Ropinirole HCl 1 mg PO TID 10/21/16 Zolpidem Tartrate [Ambien 5 mg Tablet] 5 mg PO QPMP PRN 10/21/16 Levofloxacin [Levaquin 500 mg Tablet] 500 mg PO DAILY #7 tablet 10/27/16 Prednisone 5 mg PO ASDIR PRN #14 tablet 10/27/16 History of Present Illness History of Present Illness: SUSAN BINGHAM is a 76 year old female known to my practice who presented to the ED with complaint of worsening difficulty with breathing for about 3 days preceding her presentation. She reported associated productive coughing with greenish brown sputum production and fever. She claimed to always be cold and chilly. she denied any chest pain. No nausea, vomiting or abdominal pain but claimed poor appetite and oral intake except for diet Coke beverage. She denied any significant headache or dizziness. There is associated nasal and sinus congestion with running nose all the time. Patient denied cigarette smoking, alcohol or recreational drug usage. Her morbidities include COPD, HTN, Hyperlipidemia, Pulmonary Embolism, GERD, Depression, osteoarthritis, Arrhythmia s/p pacemaker placement. Hospital Course Hospital Course: Patient was managed with IV Antibiotic, nebulizer therapy and IV Solu-Medrol. Her breathing did improved. She was transition to oral Prednisone and Levofloxacin. She will be discharge home today. She will remain on tapering dose Prednisone over next 8 days and oral Levaquin for 7 days. She will follow up in the office as instructed upon discharge. Physical Exam Vital Signs: Temp Pulse Resp BP Pulse Ox 98.9 F 80 18 121/59 L 98 10/27/16 15:29 10/27/16 15:29 10/27/16 15:29 10/27/16 15:29 10/27/16 15:29 Intake & Output 10/26/16 10/27/16 10/28/16 06:59 06:59 06:59 Intake Total 3561 1400 1374 Output Total 1200 1100 1400 Balance 2361 300 -26 Weight 49.7 kg Physical Exam: General appearance: PRESENT: mild distress - on supplemental oxygen via nasal cannula at 2L/min. Head exam: PRESENT: atraumatic, normocephalic Eye exam: PRESENT: conjunctiva pink. ABSENT: conjunctiva pale, scleral icterus Mouth exam: PRESENT: moist Respiratory exam: PRESENT: decreased breath sounds, prolonged expiratory phase Cardiovascular exam: PRESENT: RRR. ABSENT: diastolic murmur, rubs, systolic murmur GI/Abdominal exam: PRESENT: normal bowel sounds, soft. ABSENT: distended, guarding, mass, organomegaly, rebound, tenderness Extremities exam: ABSENT: pedal edema Musculoskeletal exam: PRESENT: deformity - related to osteoarthritis Neurological exam: PRESENT: alert, awake, oriented to person, oriented to place , oriented to time, oriented to situation, CN II-XII grossly intact. ABSENT: motor sensory deficit Psychiatric exam: PRESENT: appropriate affect, normal mood. ABSENT: homicidal ideation, suicidal ideation Skin exam: PRESENT: dry, intact, warm. ABSENT: cyanosis, rash Results Laboratory Results: 10/24/16 06:00 10/24/16 06:00 Impressions: Chest X-Ray 10/20/16 16:49 IMPRESSION: Chronic lung changes with minimal right pleural effusion and no acute pulmonary disease. Qualifiers PATEINT BEING DISCHARGED WITH ANY OF THE FOLLOWING DIAGNOSIS?: No Plan Discharge Plan: D/C home today. Follow up in the office as instructed upon discharge. Time Spent: Less than 30 Minutes
[2016-10-27 19:29] VITALS: BP 114/59
== END 2016-10-27 20:11 | disposition home or self-care (01) | DRG 191 ==
LOC: ER 16:21 → UNDOADMIN 10-21 00:13 → EH 10-21 00:13 → 3W 10-21 01:37 → EH 10-21 01:37 → 3W 10-21 08:52
PROVIDERS: ADMIT Internal Medicine Geriatric Medicine; ATTEND Internal Medicine Geriatric Medicine
DX: J44.0 Chronic obstructive pulmonary disease with (acute) lower respiratory infection (principal); I27.82 Chronic pulmonary embolism; J96.12 Chronic respiratory failure with hypercapnia; J96.11 Chronic respiratory failure with hypoxia; J20.9 Acute bronchitis, unspecified; I10 Essential (primary) hypertension; E78.00 Pure hypercholesterolemia, unspecified; K21.9 Gastro-esophageal reflux disease without esophagitis; M19.90 Unspecified osteoarthritis, unspecified site; F32.9 Major depressive disorder, single episode, unspecified; Z79.899 Other long term (current) drug therapy; Z95.0 Presence of cardiac pacemaker
CPT/HCPCS: 36415; 71020; 80048; 80053; 81001; 82550; 82553; 82803; 83605; 84484; 85025; 85027; 85610; 85730; 87040; 93005; 93010; 94640; 94660; 96361; 96365; 96375; 99291; J0696; J1650; J1956; J2920; J2930; J3490; J7030; J7512; J7620; S0119

== ENCOUNTER 2017-07-08 08:29 | Inpatient (IN) | payer MEDICARE ==
--- NOTE | 2017-07-08 08:46 | EKG REPORT ---
SEVERITY:- BORDERLINE ECG - SINUS TACHYCARDIA VENTRICULAR PREMATURE COMPLEX BORDERLINE LEFT AXIS DEVIATION BORDERLINE PROLONGED QT INTERVAL : Confirmed by: Mervat Mancuso 08-Jul-2017 08:45:44
--- NOTE | 2017-07-08 09:44 | ER Document Report ---
ED General - General Chief Complaint: Shortness Of Breath Stated Complaint: SHORTNESS OF BREATH Time Seen by Provider: 07/08/17 09:43 Mode of Arrival: Medic Information source: Patient, Relative, Emergency Med Personnel TRAVEL OUTSIDE OF THE [place] IN LAST 30 DAYS: No - HPI Onset: Other - SEVERAL DAYS Onset/Duration: Gradual Quality of pain: No pain Severity: Moderate Context: END-STAGE COPD, 02 DEPENDENT Associated symptoms: Chills, Productive cough - YELLOW, Sweating Exacerbated by: Denies Relieved by: Denies Similar symptoms previously: Yes - NOT RECENT Recently seen / treated by doctor: No - Related Data Allergies/Adverse Reactions: codeine [Codeine] Allergy (Unknown, Verified 10/20/16 16:38) erythromycin base [Erythromycin Base] Allergy (Unknown, Verified 10/20/16 16:38) Past Medical History - General Information source: Patient, Relative - Social History Smoking Status: Never Smoker Chew tobacco use (# tins/day): No Frequency of alcohol use: None Drug Abuse: None Lives with: Family Family History: CAD - This is in not immediate family members., DM, Hyperlipidemia, Hypertension Patient has suicidal ideation: No Patient has homicidal ideation: No - Past Medical History Cardiac Medical History: Reports: Hx Hypercholesterolemia, Hx Hypertension, Hx Pulmonary Embolism Pulmonary Medical History: Reports: Hx Asthma, Hx Bronchitis, Hx COPD, Hx Pneumonia, Hx Respiratory Failure, Hx Sleep Apnea Neurological Medical History: Denies: Hx Cerebrovascular Accident Endocrine Medical History: Denies: Hx Graves' Disease Renal/ Medical History: Reports: Hx Kidney Stones - 20 year ago. Denies: Hx Ovarian Cysts, Hx Peritoneal Dialysis, Hx Pelvic Inflammatory Disease Malignancy Medical History: GI Medical History: Reports: Hx Diverticulitis, Hx Gastroesophageal Reflux Disease, Hx Ulcer. Denies: Hx Irritable Bowel, Hx Liver Failure, Hx Pancreatitis Musculoskeltal Medical History: Reports Hx Arthritis, Denies Hx Multiple Sclerosis, Denies Hx Muscular Dystrophy Skin Medical History: Reports Hx MRSA Psychiatric Medical History: Reports: Hx Depression Denies: Hx Schizophrenia Traumatic Medical History: Denies: Hx Fractures Infectious Medical History: Past Surgical History: Reports: Hx Bowel Surgery - Old colostomy from a tear intestines resectioned, Hx Cardiac Surgery - pacemaker, Hx Colostomy - with reversal, 6 years ago, Hx Hysterectomy, Hx Orthopedic Surgery - left hip replacement 11/04/2014, Hx Pacemaker - Immunizations Immunizations up to date: Yes Hx Diphtheria, Pertussis, Tetanus Vaccination: Yes Hx Pneumococcal Vaccination: 06/04/11 Review of Systems - Review of Systems Constitutional: See HPI EENT: No symptoms reported Cardiovascular: No symptoms reported Respiratory: See HPI Gastrointestinal: No symptoms reported Genitourinary: Dysuria Female Genitourinary: Post menopausal Musculoskeletal: No symptoms reported Skin: No symptoms reported Neurological/Psychological: Tremor Physical Exam - Vital signs Vitals: Temp Pulse Resp BP Pulse Ox 98.4 F 122 H 24 H 128/78 H 95 07/08/17 08:58 07/08/17 08:58 07/08/17 08:58 07/08/17 08:58 07/08/17 08:58 Interpretation: Tachycardic, Hypoxic, Tachypneic - General General appearance: Alert, Anxious In distress: None - HEENT Head: Normocephalic Eyes: Normal Conjunctiva: Normal Ears: Normal Nasal: Normal Mouth/Lips: Normal Mucous membranes: Dry Neck: Normal, Supple - Respiratory Respiratory status: No respiratory distress, Tachypnea Chest status: Nontender Breath sounds: Rhonchi - Cardiovascular Rhythm: Regular Heart sounds: Normal auscultation Murmur: No - Abdominal Inspection: Normal Distension: No distension Bowel sounds: Hypoactive - Back Back: Normal - Extremities General upper extremity: Normal inspection General lower extremity: Normal inspection. No: Tender, Edema - Neurological Neuro grossly intact: Yes Cognition: Normal Orientation: AAOx4 - Psychological Associated symptoms: Normal affect, Normal mood - Skin Skin Temperature: Warm Skin Moisture: Dry Skin Color: Normal Skin Turgor: Elastic Course - Vital Signs Vital signs: Temp Pulse Resp BP Pulse Ox 98.4 F 122 H 33 H 128/78 H 95 07/08/17 08:58 07/08/17 08:58 07/08/17 08:58 07/08/17 08:58 07/08/17 08:58 - Laboratory Result Diagrams: 07/08/17 10:58 07/08/17 10:58 Laboratory results interpreted by me: 07/08/17 07/08/17 07/08/17 10:58 10:58 11:21 WBC 18.6 H Hgb 11.5 L Hct 35.7 L MCH 26.5 L RDW 18.5 H Seg Neutrophils % 83.2 H Lymphocytes % 9.6 L Absolute Neutrophils 15.5 H Potassium 5.1 H BUN 29 H Est GFR (Non-Af Amer) 56 L Urine Protein 30 H Ur Leukocyte Esterase TRACE H Urine Ascorbic Acid 40 H - Diagnostic Test Radiology reviewed: Image reviewed, Reports reviewed - EKG Interpretation by Me EKG shows normal: Sinus rhythm. abnormal: Intervals - BORDERLINE LONG QT Rate: Tachycardia Rhythm: PVC's [place]/QRS: Left axis deviation - Consults DR. CASTILLO Time consulted: 13:20 Consulted provider: will see as inpatient Discharge - Discharge Clinical Impression: Decompensated COPD with exacerbation (chronic obstructive pulmonary disease) Condition: Fair Disposition: ADMITTED INPATIENT Admitting Provider: Renetta Unit Admitted: Telemetry
[2017-07-08] MEDS ORDERED: NORMAL SALINE 1000 ML 500 ML IV PRN (10:00)
--- NOTE | 2017-07-08 10:39 | RADIOLOGY REPORT (SQ) ---
EXAM DESCRIPTION: CHEST SINGLE VIEW COMPLETED DATE/TIME: 07/08/2017 10:27 am REASON FOR STUDY: COUGH, DYSPNEA COMPARISON: CT angio chest 08/20/2016 Chest films 08/19/2016, 10/20/2016 EXAM PARAMETERS: NUMBER OF VIEWS: One view. TECHNIQUE: Single frontal radiographic view of the chest acquired. RADIATION DOSE: NA LIMITATIONS: None. FINDINGS: LUNGS AND PLEURA: Lungs are hyperinflated and hyperlucent from obstructive disease. No ac [place] infiltrates. No pleural effusion. No pneumothorax. MEDIASTINUM AND HILAR STRUCTURES: No masses. Contour normal. HEART AND VASCULAR STRUCTURES: Heart normal in size. Prominent central pulmonary arteries from pulmo nary hypertension. BONES: Osteoporotic HARDWARE: Right-sided permanent central line tip superior vena cava. Left-sided pacemaker. OTHER: No other significant finding. IMPRESSION: Obstructive lung disease. No acute infiltrates. TECHNICAL DOCUMENTATION: JOB ID: [id number] [employer]- All Rights Reserved Reading location - IP/workstation name: [email or web address]
[2017-07-08 11:26] LABS: ABSOLUTE BASOPHILS # (AUTO) 0.1 10^3/uL (0.0-0.2); ABSOLUTE LYMPHOCYTES (AUTO) 1.8 10^3/uL (0.5-4.7); ABSOLUTE MONOCYTES (AUTO) 1.2 10^3/uL (0.1-1.4); ABSOLUTE NEUT (AUTO) 15.5 10^3/uL (1.7-8.2); BASOPHILS % (AUTO) 0.4 % (0-2); EOSINOPHILS % (AUTO) 0.1 % (0-6); HEMATOCRIT 35.7 % (36.0-47.0); HEMOGLOBIN 11.5 g/dL (12.0-15.5); LYMPHOCYTES % (AUTO) 9.6 % (13-45); MEAN CORPUSCULAR HEMOGLOBIN 26.5 pg (27.0-33.4); MEAN CORPUSCULAR HGB CONC 32.2 g/dL (32.0-36.0); MEAN CORPUSCULAR VOLUME 82 fl (80-97); MONOCYTES % (AUTO) 6.7 % (3-13); PLATELET COUNT 395 10^3/uL (150-450); RED BLOOD COUNT 4.34 10^6/uL (3.72-5.28); RED CELL DISTRIBUTION WIDTH 18.5 % (11.5-14.0); SEGMENTED NEUTROPHILS % (AUTO) 83.2 % (42-78); TOTAL CELLS COUNTED % (AUTO) 100 %; WHITE BLOOD COUNT 18.6 10^3/uL (4.0-10.5)
[2017-07-08 11:51] LABS: ALANINE AMINOTRANSFERASE 22 U/L (9-52); ALKALINE PHOSPHATASE 78 U/L (38-126); ANION GAP 13 (5-19); ASPARTATE AMINO TRANSFERASE 21 U/L (14-36); BILIRUBIN,DIRECT 0.3 mg/dL (0.0-0.4); BILIRUBIN,TOTAL 0.3 mg/dL (0.2-1.3); BLOOD UREA NITROGEN 29 mg/dL (7-20); CARBON DIOXIDE 28 mmol/L (22-30); CHLORIDE 103 mmol/L (98-107); CREATINE KINASE 35 U/L (30-135); GLUCOSE 101 mg/dL (75-110); POTASSIUM 5.1 mmol/L (3.6-5.0); SODIUM 143.9 mmol/L (137-145); TOTAL PROTEIN 7.6 g/dL (6.3-8.2)
[2017-07-08 12:00] LABS: APPEARANCE,URINE SLIGHTLY-CLOUDY; BILIRUBIN,URINE NEGATIVE (NEGATIVE); COLOR,URINE YELLOW; GLUCOSE, URINE NEGATIVE (NEGATIVE); KETONES,URINE NEGATIVE (NEGATIVE); LEUKOCYTE ESTERASE,URINE TRACE (NEGATIVE); NITRITE,URINE NEGATIVE (NEGATIVE); PROTEIN,URINE 30 mg/dL (NEGATIVE); URINE SPECIFIC GRAVITY 1.023; UROBILINOGEN,URINE NEGATIVE mg/dL (<2.0)
[2017-07-08] MEDS ORDERED: LEVOFLOXACIN 750 MG/D5W RTU 750 MG/150 ML RTUPB IV ONE (13:21)
[2017-07-08] MEDS ORDERED: OXYCODONE-ACETAMINOPHEN 5-325 MG TABLET PO ONE (13:24)
--- NOTE | 2017-07-08 15:10 | PDOC H&P ---
History of Present Illness Admission Date/PCP: 07/08/17 13:42 SARITA ANNA Patient complains of: worsening difficulty with breathing History of Present Illness: SUSAN BINGHAM is a 76 year old female known to my practice presented to the Ed with worsening difficulty with breathing for several days. Patient has baseline end stage COPD oxygen dependent. She reported increase sputum production with some amount of blood component, chest congestion, low grade fever and chills for couple of days. She denied definite chest pain. She claimed compliance with all her medications. No nausea, vomiting or abdominal pain. Her initial evaluation in the Ed was remarkable for tachypnea, tachycardia and leukocytosis. Her chest X ray revealed features of COPD without acute infiltrate. Her morbidities are extensive and include oxygen dependent COPD with recurrent admissions, Hypertension, Hyperlipidemia, GERD, Pulmonary Embolism, Cardiac arrhythmia, mixed anxiety with depressive mood. She was advised hospitalization for exacerbated COPD and acute bronchitis. Past Medical History Cardiac Medical History: Reports: Hyperlipidema, Hypertension, Pulmonary Embolism Pulmonary Medical History: Reports: Asthma, Bronchitis, Chronic Obstructive Pulmonary Disease (COPD), Pneumonia, Respiratory Failure, Sleep Apnea Neurological Medical History: Endocrine Medical History: Renal/ Medical History: Malignancy Medical History: GI Medical History: Reports: Diverticulitis, Gastroesophageal Reflux Disease Musculoskeltal Medical History: Reports: Arthritis Psychiatric Medical History: Reports: Depression Hematology: Infectious Medical History: Past Surgical History Past Surgical History: Reports: Colostomy - with reversal, 6 years ago, Hysterectomy, Orthopedic Surgery - left hip replacement 11/04/2014, Pacemaker Social History Lives with: Family Smoking Status: Never Smoker Frequency of Alcohol Use: None Hx Recreational Drug Use: No Drugs: None Hx Prescription Drug Abuse: No Family History Family History: CAD - This is in not immediate family members., DM, Hyperlipidemia, Hypertension Parental Family History Reviewed: Yes Children Family History Reviewed: Yes Sibling(s) Family History Reviewed.: Yes Medication/Allergy Home Medications: Acetazolamide [Diamox 250 mg Tab] 250 mg PO BID 07/08/17 Albuterol Sulfate [Albuterol Sulfate 2.5mg/3 mL] 1 vial NEB DAILYP PRN 07/08/17 Alprazolam [Xanax 0.5 mg Tablet] 0.5 mg PO Q8 07/08/17 Apixaban [Eliquis 5 mg Tablet] 5 mg PO Q12 07/08/17 Aspirin [Aspirin EC] 81 mg PO DAILY 07/08/17 Buspirone HCl [Buspar 15 mg Tablet] 7.5 mg PO TID 07/08/17 Citalopram Hydrobromide [Celexa 40 mg Tablet] 40 mg PO DAILY 07/08/17 Montelukast Sodium [Singulair 10 mg Tablet] 10 mg PO DAILY 07/08/17 Oxycodone HCl/Acetaminophen [Percocet 7.5-325 mg Tablet] 1 tab PO Q8HP PRN 07/08 Pregabalin [Lyrica 50 mg Capsule] 50 mg PO QHS 07/08/17 Ropinirole HCl [Requip] 1 mg PO TID 07/08/17 Zolpidem Tartrate [Ambien 5 mg Tablet] 5 mg PO HSP PRN 07/08/17 Allergies/Adverse Reactions: codeine [Codeine] Allergy (Unknown, Verified 10/20/16 16:38) erythromycin base [Erythromycin Base] Allergy (Unknown, Verified 10/20/16 16:38) Review of Systems Constitutional: PRESENT: chills, fever(s) Eyes: ABSENT: visual disturbances Ears: ABSENT: hearing changes Nose, Mouth, and Throat: ABSENT: as per HPI, headache(s), mouth pain, sore throat, vertigo, other Cardiovascular: PRESENT: dyspnea on exertion. ABSENT: as per HPI, chest pain, edema, orthropnea, palpitations, other Respiratory: PRESENT: cough, dyspnea, sputum. ABSENT: hemoptysis Gastrointestinal: ABSENT: abdominal pain, constipation, diarrhea, hematemesis, hematochezia, nausea, vomiting Genitourinary: ABSENT: dysuria, hematuria Musculoskeletal: PRESENT: deformity - related to multiple joints involvement with arthritis Integumentary: ABSENT: rash, wounds Neurological: ABSENT: abnormal gait, abnormal speech, confusion, dizziness, focal weakness, syncope Psychiatric: PRESENT: anxiety, depression Endocrine: ABSENT: cold intolerance, heat intolerance, polydipsia, polyuria Hematologic/Lymphatic: ABSENT: easy bleeding, easy bruising, lymphadenopathy Allergic/Immunologic: ABSENT: seasonal rhinorrhea Physical Exam Vital Signs: Temp Pulse Resp BP Pulse Ox 98.4 F 122 H 33 H 128/78 H 95 07/08/17 08:58 07/08/17 08:58 07/08/17 08:58 07/08/17 08:58 07/08/17 08:58 General appearance: PRESENT: mild distress - with supplemental oxygen via nasal cannular Head exam: PRESENT: atraumatic, normocephalic Eye exam: PRESENT: conjunctiva pink, EOMI, PERRLA. ABSENT: scleral icterus Mouth exam: PRESENT: moist Throat exam: ABSENT: post pharyngeal erythema, tonsillar erythema, tonsillar exudate, tonsillogmegaly, other Neck exam: PRESENT: full ROM. ABSENT: carotid bruit, JVD, lymphadenopathy, thyromegaly Respiratory exam: PRESENT: crackles, decreased breath sounds, rhonchi, tachypnea Cardiovascular exam: PRESENT: RRR, +S1, +S2, tachycardia. ABSENT: diastolic murmur, rubs, systolic murmur Vascular exam: PRESENT: normal capillary refill. ABSENT: pallor GI/Abdominal exam: PRESENT: normal bowel sounds, soft. ABSENT: distended, guarding, mass, organolmegaly, rebound, tenderness Rectal exam: PRESENT: deferred Extremities exam: ABSENT: pedal edema Musculoskeletal exam: PRESENT: deformity - related to her multiple joints involvement with arthritis. ABSENT: tenderness Neurological exam: PRESENT: alert, awake, oriented to person, oriented to place , oriented to time, oriented to situation, CN II-XII grossly intact. ABSENT: motor sensory deficit Psychiatric exam: PRESENT: anxious Skin exam: PRESENT: dry, intact, warm. ABSENT: cyanosis, rash Results Laboratory Results: I reviewed her lab results on [email or web address] and form significant part of my medical decision making. Impressions: Chest X-Ray 07/08/17 09:58 IMPRESSION: Obstructive lung disease. No acute infiltrates. Assessment & Plan - Diagnosis (1) Decompensated COPD with exacerbation (chronic obstructive pulmonary disease) Is this a current diagnosis for this admission?: Yes Plan: See admitting attending physician orders. (2) Acute bronchitis with COPD Is this a current diagnosis for this admission?: Yes Plan: See admitting attending physician orders. (3) CAD (coronary artery disease) Qualifiers: Coronary Disease-Associated Artery/Lesion type: [place] artery Associated angina: without angina Is this a current diagnosis for this admission?: Yes Plan: See admitting attending physician orders. (4) Cardiac dysrhythmia Qualifiers: Arrhythmia type: unspecified cardiac arrhythmia Qualified Code(s): I49.9 - Cardiac arrhythmia, unspecified Is this a current diagnosis for this admission?: Yes Plan: See admitting attending physician orders. (5) H/O cardiac pacemaker Is this a current diagnosis for this admission?: Yes Plan: See admitting attending physician orders. (6) HTN (hypertension) Qualifiers: Hypertension type: essential hypertension Qualified Code(s): I10 - Essential (primary) hypertension Is this a current diagnosis for this admission?: Yes Plan: See admitting attending physician orders. (7) HLD (hyperlipidemia) Qualifiers: Hyperlipidemia type: pure hypercholesterolemia Qualified Code(s): E78.00 - Pure hypercholesterolemia, unspecified Is this a current diagnosis for this admission?: Yes Plan: See admitting attending physician orders. (8) GERD (gastroesophageal reflux disease) Qualifiers: Esophagitis presence: without esophagitis Qualified Code(s): K21.9 - Gastro -esophageal reflux disease without esophagitis Is this a current diagnosis for this admission?: Yes Plan: See admitting attending physician orders. (9) Mixed anxiety and depressive disorder Is this a current diagnosis for this admission?: Yes Plan: See admitting attending physician orders. - Time Time Spent: 50 to 70 Minutes Medications reviewed and adjusted accordingly: Yes Anticipated discharge: Home with Homehealth Within: Other - Inpatient Certification Based on my medical assessment, after consideration of the patient's comorbidities, presenting symptoms, or acuity I expect that the services needed warrant INPATIENT care.: Yes I certify that my determination is in accordance with my understanding of Medicare's requirements for reasonable and necessary INPATIENT services [42 CFR 412.3e].: Yes Medical Necessity: Need Close Monitoring Due to Risk of Patient Decompensation, Need For IV Fluids, Need For Continuous Telemetry Monitoring, Need for Nebulizer Therapy and Monitoring of Response, Need for IV Antibiotics, Risk of Complication if Not Cared For in Hospital Post Hospital Care: D/C Professional Skater Documentation - Plan Summary Plan Summary: See admitting attending physician orders.
[2017-07-08] MEDS ORDERED: GUAIFENESIN SYRP 200 MG/10 ML UDC PO PRN (15:13)
[2017-07-08] MEDS ORDERED: IPRATROPIUM/ALBUTEROL 0.5-2.5 MG/3 ML AMPUL NEB PRN (15:14)
[2017-07-08] MEDS ORDERED: (PENDING PHARMACY ID) (Oxycodone Hcl/Acetaminophen [Percocet 7.5-325 Mg Tablet] 1 TAB) PO PRN (15:15)
[2017-07-08 17:32] LABS: INTERNATIONAL RATION (INR) 1.07; PROTHROMBIN TIME 14.4 SEC (11.4-15.4)
[2017-07-08 17:33] LABS: PARTIAL THROMBOPLASTIN TIME 27.5 SEC (23.5-35.8)
[2017-07-08] MEDS ORDERED: (PENDING PHARMACY ID) (Buspirone Hcl [Buspar 15 Mg Tablet] 7.5 MG) PO SCH (18:00)
[2017-07-08] MEDS: ACETAZOLAMIDE 250 MG TABLET PO SCH (18:02)
[2017-07-08] MEDS: OXYCODONE-ACETAMINOPHEN 5-325 MG TABLET PO PRN (19:35)
[2017-07-08] MEDS: BUSPIRONE HCL 10 MG TABLET PO SCH (21:31)
[2017-07-08] MEDS: ROPINIROLE HCL 1 MG TABLET PO SCH (21:31)
[2017-07-08] MEDS: PREGABALIN 50 MG CAPSULE PO SCH (21:31)
[2017-07-08] MEDS: ALPRAZOLAM 0.5 MG TABLET PO SCH (21:31)
[2017-07-08] MEDS: METHYLPREDNISOLONE INJ 125 MG/2 ML SDV IV SCH (21:32)
[2017-07-08] MEDS: APIXABAN 5 MG TABLET PO SCH (21:32)
[2017-07-09] MEDS: OXYCODONE-ACETAMINOPHEN 5-325 MG TABLET PO PRN ×3 (04:28→22:43)
[2017-07-09] MEDS: BUSPIRONE HCL 10 MG TABLET PO SCH ×3 (05:31→21:27)
[2017-07-09] MEDS: ALPRAZOLAM 0.5 MG TABLET PO SCH ×3 (05:31→21:24)
[2017-07-09] MEDS: METHYLPREDNISOLONE INJ 125 MG/2 ML SDV IV SCH ×3 (05:31→21:27)
[2017-07-09] MEDS: ROPINIROLE HCL 1 MG TABLET PO SCH ×3 (05:32→21:27)
[2017-07-09] MEDS: LANSOPRAZOLE 30 MG TAB.RAP.DR PO SCH (05:32)
[2017-07-09] MEDS: ASPIRIN 81 MG TABLET, ENT COATED PO SCH (09:37)
[2017-07-09] MEDS: CITALOPRAM HYDROBROMIDE 20 MG TABLET PO SCH (09:38)
[2017-07-09] MEDS: APIXABAN 5 MG TABLET PO SCH ×2 (09:38→21:27)
[2017-07-09] MEDS: MONTELUKAST SODIUM 10 MG TABLET PO SCH (09:38)
[2017-07-09] MEDS: ACETAZOLAMIDE 250 MG TABLET PO SCH ×2 (09:38→17:15)
[2017-07-09] MEDS ORDERED: (PENDING PHARMACY ID) (Citalopram Hydrobromide [Celexa 40 Mg Tablet] 40 MG) PO SCH (10:00)
[2017-07-09] MEDS: ACETAMINOPHEN 325 MG TABLET PO PRN ×2 (10:22→18:41)
--- NOTE | 2017-07-09 11:23 | PDOC PROGRESS REPORT ---
Subjective Progress Note for:: 07/09/17 Subjective:: Patient was admitted for the end-stage COPD with acute exacerbations Is currently doing better Patient's denied any chest pain Any shortness of the breath According to the nursing stump patients currently restricted with the breathing treatment Reason For Visit: EXACERBATED COPD ACUTE BRONCHITIS Physical Exam Vital Signs: Temp Pulse Resp BP Pulse Ox 97.6 F 65 22 H 105/64 92 07/09/17 08:10 07/09/17 08:10 07/09/17 08:10 07/09/17 08:10 07/09/17 08:10 Intake & Output 07/08/17 07/09/17 07/10/17 06:59 06:59 06:59 Intake Total 2039 Balance 2039 Weight 47.4 kg General appearance: PRESENT: no acute distress, well-developed, well-nourished Head exam: PRESENT: atraumatic, normocephalic Eye exam: PRESENT: conjunctiva pink, EOMI, PERRLA. ABSENT: scleral icterus Ear exam: PRESENT: normal external ear exam Mouth exam: PRESENT: moist, tongue midline Neck exam: PRESENT: full ROM. ABSENT: carotid bruit, JVD, lymphadenopathy, thyromegaly Respiratory exam: PRESENT: clear to auscultation luci Cardiovascular exam: PRESENT: RRR. ABSENT: diastolic murmur, rubs, systolic murmur Pulses: PRESENT: normal dorsalis pedis pul, +2 pedal pulses bilateral Vascular exam: PRESENT: normal capillary refill GI/Abdominal exam: PRESENT: normal bowel sounds, soft. ABSENT: distended, guarding, mass, organolmegaly, rebound, tenderness Rectal exam: PRESENT: deferred Neurological exam: PRESENT: alert, awake, oriented to person. ABSENT: motor sensory deficit Psychiatric exam: PRESENT: appropriate affect, normal mood. ABSENT: homicidal ideation, suicidal ideation Skin exam: PRESENT: dry, intact, warm. ABSENT: cyanosis, rash Results Impressions: Chest X-Ray 07/08/17 09:58 IMPRESSION: Obstructive lung disease. No acute infiltrates. Assessment & Plan - Diagnosis (1) Decompensated COPD with exacerbation (chronic obstructive pulmonary disease) Is this a current diagnosis for this admission?: Yes (2) CAD (coronary artery disease) Qualifiers: Coronary Disease-Associated Artery/Lesion type: [place] artery Associated angina: without angina Is this a current diagnosis for this admission?: Yes (3) Cardiac dysrhythmia Qualifiers: Arrhythmia type: unspecified cardiac arrhythmia Qualified Code(s): I49.9 - Cardiac arrhythmia, unspecified Is this a current diagnosis for this admission?: Yes (4) Chronic respiratory failure with hypoxia and hypercapnia Is this a current diagnosis for this admission?: Yes (5) Dementia Is this a current diagnosis for this admission?: Yes (6) GERD (gastroesophageal reflux disease) Qualifiers: Esophagitis presence: without esophagitis Qualified Code(s): K21.9 - Gastro -esophageal reflux disease without esophagitis Is this a current diagnosis for this admission?: Yes - Time Time Spent with patient: 15-24 minutes Medications reviewed and adjusted accordingly: Yes Anticipated discharge: Other Within: Other - Inpatient Certification Medical Necessity: Need Close Monitoring Due to Risk of Patient Decompensation, Need for IV Antibiotics Post Hospital Care: D/C Natural Science Manager Documentation - Plan Summary Plan Summary: Will change the DuoNeb to Xopenex due to the shakiness during the treatments continue IV Solu-Medrol and may be considered to reduce the dose tomorrow
[2017-07-09] MEDS: LEVALBUTEROL HCL NEB 1.25 MG/3 ML AMPUL NEB PRN ×2 (14:31→20:00)
[2017-07-09] MEDS: PREGABALIN 50 MG CAPSULE PO SCH (21:24)
[2017-07-09] MEDS: ZOLPIDEM TARTRATE 5 MG TABLET PO PRN (23:20)
[2017-07-10] MEDS: NORMAL SALINE 1000 ML 1,000 ML IV PRN ×2 (01:38→15:30)
[2017-07-10] MEDS: METHYLPREDNISOLONE INJ 125 MG/2 ML SDV IV SCH ×3 (05:48→21:33)
[2017-07-10] MEDS: BUSPIRONE HCL 10 MG TABLET PO SCH ×3 (05:52→21:33)
[2017-07-10] MEDS: LANSOPRAZOLE 30 MG TAB.RAP.DR PO SCH (05:52)
[2017-07-10] MEDS: ROPINIROLE HCL 1 MG TABLET PO SCH ×3 (05:52→21:34)
[2017-07-10] MEDS: ALPRAZOLAM 0.5 MG TABLET PO SCH ×3 (05:52→21:33)
[2017-07-10 07:02] LABS: HEMATOCRIT 30.3 % (36.0-47.0); HEMOGLOBIN 9.5 g/dL (12.0-15.5); MEAN CORPUSCULAR HEMOGLOBIN 26.8 pg (27.0-33.4); MEAN CORPUSCULAR HGB CONC 31.3 g/dL (32.0-36.0); PLATELET COUNT 366 10^3/uL (150-450); RED BLOOD COUNT 3.53 10^6/uL (3.72-5.28); RED CELL DISTRIBUTION WIDTH 18.7 % (11.5-14.0); WHITE BLOOD COUNT 24.2 10^3/uL (4.0-10.5)
[2017-07-10 07:16] LABS: ANION GAP 9 (5-19); BLOOD UREA NITROGEN 24 mg/dL (7-20); CARBON DIOXIDE 18 mmol/L (22-30); CHLORIDE 115 mmol/L (98-107); GLUCOSE 151 mg/dL (75-110); POTASSIUM 4.1 mmol/L (3.6-5.0); SODIUM 142.1 mmol/L (137-145)
[2017-07-10 08:08] LABS: MEAN CORPUSCULAR VOLUME 86 fl (80-97)
[2017-07-10 08:13] LABS: ABSOLUTE LYMPHOCYTES# (MANUAL) 1.2 10^3/uL (0.5-4.7); ABSOLUTE MONOCYTES # (MANUAL) 0.7 10^3/uL (0.1-1.4); ABSOLUTE NEUTROPHILS# (MANUAL) 22.3 10^3/uL (1.7-8.2); BASOPHILS % (MANUAL) 0 % (0-2); EOSINOPHILS % (MANUAL) 0 % (0-6); LYMPHOCYTES % (MANUAL) 5 % (13-45); MONOCYTES % (MANUAL) 3 % (3-13); SEGMENTED NEUTROPHILS % (MAN) 92 % (42-78); TOTAL CELLS COUNTED 100
[2017-07-10 08:14] LABS: BURR CELLS SLIGHT; POIKILOCYTOSIS SLIGHT
[2017-07-10 08:15] LABS: ANISOCYTOSIS 2+; OVALOCYTES SLIGHT; PLATELET COMMENT ADEQUATE
[2017-07-10] MEDS: LEVOFLOXACIN 750 MG/D5W RTU 750 MG/150 ML RTUPB IV SCH (11:11)
[2017-07-10] MEDS: CITALOPRAM HYDROBROMIDE 20 MG TABLET PO SCH (11:14)
--- NOTE | 2017-07-10 11:14 | PDOC PROGRESS REPORT ---
Subjective Progress Note for:: 07/10/17 Subjective:: Patient is currently doing fair Is denied any chest pain denied any shortness of the breath No fever overnight Her white count is elevated most likely due to the steroid Changing the DuoNeb to Xopenex the patient shakiness is getting better Reason For Visit: EXACERBATED COPD ACUTE BRONCHITIS Physical Exam Vital Signs: Temp Pulse Resp BP Pulse Ox 98.4 F 83 20 118/45 L 99 07/10/17 04:00 07/10/17 04:00 07/10/17 04:00 07/10/17 04:00 07/10/17 04:00 Intake & Output 07/09/17 07/10/17 07/11/17 06:59 06:59 06:59 Intake Total 2039 325 Balance 2039 3250 Weight 47.4 kg 49.5 kg General appearance: PRESENT: no acute distress, well-developed, well-nourished Head exam: PRESENT: atraumatic, normocephalic Eye exam: PRESENT: conjunctiva pink, EOMI, PERRLA. ABSENT: scleral icterus Ear exam: PRESENT: normal external ear exam Mouth exam: PRESENT: moist, tongue midline Neck exam: PRESENT: full ROM. ABSENT: carotid bruit, JVD, lymphadenopathy, thyromegaly Respiratory exam: PRESENT: clear to auscultation luci Cardiovascular exam: PRESENT: RRR. ABSENT: diastolic murmur, rubs, systolic murmur Pulses: PRESENT: normal dorsalis pedis pul, +2 pedal pulses bilateral Vascular exam: PRESENT: normal capillary refill GI/Abdominal exam: PRESENT: normal bowel sounds, soft. ABSENT: distended, guarding, mass, organolmegaly, rebound, tenderness Rectal exam: PRESENT: deferred Extremities exam: ABSENT: pedal edema Neurological exam: PRESENT: alert, awake, oriented to person, oriented to place. ABSENT: motor sensory deficit Psychiatric exam: PRESENT: appropriate affect, normal mood. ABSENT: homicidal ideation, suicidal ideation Skin exam: PRESENT: dry, intact, warm. ABSENT: cyanosis, rash Results Laboratory Results: 07/10/17 06:29 07/10/17 06:29 07/10/17 07/10/17 06:29 06:29 WBC 24.2 H RBC 3.53 L Hgb 9.5 L Hct 30.3 L MCV 86 D MCH 26.8 L MCHC 31.3 L RDW 18.7 H Plt Count 366 Seg Neutrophils % Not Reportable Lymphocytes % Not Reportable Monocytes % Not Reportable Eosinophils % Not Reportable Basophils % Not Reportable Absolute Neutrophils Not Reportable Absolute Lymphocytes Not Reportable Absolute Monocytes Not Reportable Absolute Eosinophils Not Reportable Absolute Basophils Not Reportable Sodium 142.1 Potassium 4.1 Chloride 115 H Carbon Dioxide 18 L Anion Gap 9 BUN 24 H Creatinine 0.83 Est GFR ( Amer) > 60 Est GFR (Non-Af Amer) > 60 Glucose 151 H Calcium 9.0 Impressions: Chest X-Ray 07/08/17 09:58 IMPRESSION: Obstructive lung disease. No acute infiltrates. Assessment & Plan - Diagnosis (1) Decompensated COPD with exacerbation (chronic obstructive pulmonary disease) Is this a current diagnosis for this admission?: Yes Plan: Reduce the IV steroid (2) CAD (coronary artery disease) Qualifiers: Coronary Disease-Associated Artery/Lesion type: [place] artery Associated angina: without angina Is this a current diagnosis for this admission?: Yes (3) Cardiac dysrhythmia Qualifiers: Arrhythmia type: unspecified cardiac arrhythmia Qualified Code(s): I49.9 - Cardiac arrhythmia, unspecified Is this a current diagnosis for this admission?: Yes (4) Chronic respiratory failure with hypoxia and hypercapnia Is this a current diagnosis for this admission?: Yes (5) Dementia Is this a current diagnosis for this admission?: Yes (6) GERD (gastroesophageal reflux disease) Qualifiers: Esophagitis presence: without esophagitis Qualified Code(s): K21.9 - Gastro -esophageal reflux disease without esophagitis Is this a current diagnosis for this admission?: Yes - Time Time Spent with patient: 15-24 minutes Medications reviewed and adjusted accordingly: Yes Anticipated discharge: Other Within: Other - Inpatient Certification Medical Necessity: Need Close Monitoring Due to Risk of Patient Decompensation, Need for IV Antibiotics Post Hospital Care: D/C Assembler Installer Structures Documentation - Plan Summary Plan Summary: Continues to IV antibiotic Reduce the IV steroid Repeat the CBC in the morning
[2017-07-10] MEDS: MONTELUKAST SODIUM 10 MG TABLET PO SCH (11:15)
[2017-07-10] MEDS: ACETAZOLAMIDE 250 MG TABLET PO SCH ×2 (11:15→18:15)
[2017-07-10] MEDS: ASPIRIN 81 MG TABLET, ENT COATED PO SCH (11:15)
[2017-07-10] MEDS: APIXABAN 5 MG TABLET PO SCH ×2 (11:15→21:33)
[2017-07-10] MEDS: OXYCODONE-ACETAMINOPHEN 5-325 MG TABLET PO PRN ×2 (12:46→22:55)
[2017-07-10] MEDS: LEVALBUTEROL HCL NEB 1.25 MG/3 ML AMPUL NEB PRN (16:25)
[2017-07-10] MEDS: PSYLLIUM SEED-SF 5.85 GM PACKET PO SCH (18:16)
[2017-07-10] MEDS: PREGABALIN 50 MG CAPSULE PO SCH (21:33)
[2017-07-10] MEDS: ZOLPIDEM TARTRATE 5 MG TABLET PO PRN (22:55)
[2017-07-11 05:27] LABS: HEMATOCRIT 31.5 % (36.0-47.0); HEMOGLOBIN 9.7 g/dL (12.0-15.5); MEAN CORPUSCULAR HEMOGLOBIN 26.8 pg (27.0-33.4); MEAN CORPUSCULAR HGB CONC 30.9 g/dL (32.0-36.0); MEAN CORPUSCULAR VOLUME 87 fl (80-97); PLATELET COUNT 435 10^3/uL (150-450); RED BLOOD COUNT 3.62 10^6/uL (3.72-5.28); WHITE BLOOD COUNT 22.2 10^3/uL (4.0-10.5)
[2017-07-11 05:54] LABS: ABSOLUTE LYMPHOCYTES# (MANUAL) 0.9 10^3/uL (0.5-4.7); ABSOLUTE MONOCYTES # (MANUAL) 0.2 10^3/uL (0.1-1.4); ABSOLUTE NEUTROPHILS# (MANUAL) 21.1 10^3/uL (1.7-8.2); BAND NEUTROPHILS % (MANUAL) 1 % (3-5); BASOPHILS % (MANUAL) 0 % (0-2); EOSINOPHILS % (MANUAL) 0 % (0-6); LYMPHOCYTES % (MANUAL) 4 % (13-45); MONOCYTES % (MANUAL) 1 % (3-13); SEGMENTED NEUTROPHILS % (MAN) 94 % (42-78); TOTAL CELLS COUNTED 100
[2017-07-11 05:55] LABS: ANION GAP 8 (5-19); BLOOD UREA NITROGEN 30 mg/dL (7-20); CALCIUM 9.4 mg/dL (8.4-10.2); CARBON DIOXIDE 20 mmol/L (22-30); CHLORIDE 113 mmol/L (98-107); GLUCOSE 114 mg/dL (75-110); POTASSIUM 4.9 mmol/L (3.6-5.0); SODIUM 141.2 mmol/L (137-145)
[2017-07-11 05:57] LABS: ANISOCYTOSIS 2+; BURR CELLS SLIGHT; OVALOCYTES SLIGHT; PLATELET COMMENT ADEQUATE; POIKILOCYTOSIS 1+; SCHISTOCYTES SLIGHT
[2017-07-11] MEDS: BUSPIRONE HCL 10 MG TABLET PO SCH ×3 (06:11→22:10)
[2017-07-11] MEDS: NORMAL SALINE 1000 ML 1,000 ML IV PRN ×2 (06:11→23:54)
[2017-07-11] MEDS: ROPINIROLE HCL 1 MG TABLET PO SCH ×3 (06:11→22:11)
[2017-07-11] MEDS: ALPRAZOLAM 0.5 MG TABLET PO SCH ×3 (06:12→22:11)
[2017-07-11] MEDS: LANSOPRAZOLE 30 MG TAB.RAP.DR PO SCH (06:12)
[2017-07-11] MEDS: METHYLPREDNISOLONE INJ 125 MG/2 ML SDV IV SCH ×3 (06:15→22:11)
[2017-07-11] MEDS: OXYCODONE-ACETAMINOPHEN 5-325 MG TABLET PO PRN ×2 (07:41→23:51)
[2017-07-11] MEDS: OXYCODONE HCL IR 5 MG TABLET PO PRN (07:46)
[2017-07-11] MEDS: MONTELUKAST SODIUM 10 MG TABLET PO SCH ×2 (10:00→22:10)
[2017-07-11] MEDS: PSYLLIUM SEED-SF 5.85 GM PACKET PO SCH ×2 (11:42→18:30)
[2017-07-11] MEDS: ASPIRIN 81 MG TABLET, ENT COATED PO SCH (11:42)
[2017-07-11] MEDS: ACETAZOLAMIDE 250 MG TABLET PO SCH ×2 (11:43→18:32)
[2017-07-11] MEDS: CITALOPRAM HYDROBROMIDE 20 MG TABLET PO SCH (11:43)
[2017-07-11] MEDS: APIXABAN 5 MG TABLET PO SCH ×2 (11:44→22:11)
[2017-07-11] MEDS: PREGABALIN 50 MG CAPSULE PO SCH (22:11)
[2017-07-11] MEDS: ZOLPIDEM TARTRATE 5 MG TABLET PO PRN (23:52)
[2017-07-12 05:04] LABS: HEMATOCRIT 33.6 % (36.0-47.0); HEMOGLOBIN 10.4 g/dL (12.0-15.5); MEAN CORPUSCULAR HEMOGLOBIN 26.8 pg (27.0-33.4); MEAN CORPUSCULAR HGB CONC 30.9 g/dL (32.0-36.0); MEAN CORPUSCULAR VOLUME 87 fl (80-97); PLATELET COUNT 388 10^3/uL (150-450); RED BLOOD COUNT 3.88 10^6/uL (3.72-5.28); RED CELL DISTRIBUTION WIDTH 19.4 % (11.5-14.0); WHITE BLOOD COUNT 12.5 10^3/uL (4.0-10.5)
[2017-07-12 05:19] LABS: ANION GAP 9 (5-19); BLOOD UREA NITROGEN 35 mg/dL (7-20); CALCIUM 9.2 mg/dL (8.4-10.2); CARBON DIOXIDE 19 mmol/L (22-30); CHLORIDE 114 mmol/L (98-107); GLUCOSE 152 mg/dL (75-110); POTASSIUM 4.1 mmol/L (3.6-5.0); SODIUM 142.1 mmol/L (137-145)
[2017-07-12] MEDS: METHYLPREDNISOLONE INJ 125 MG/2 ML SDV IV SCH ×2 (05:21→14:48)
[2017-07-12] MEDS: LANSOPRAZOLE 30 MG TAB.RAP.DR PO SCH (05:21)
[2017-07-12] MEDS: ALPRAZOLAM 0.5 MG TABLET PO SCH ×3 (05:21→21:45)
[2017-07-12] MEDS: BUSPIRONE HCL 10 MG TABLET PO SCH ×3 (05:21→21:45)
[2017-07-12] MEDS: ROPINIROLE HCL 1 MG TABLET PO SCH ×3 (05:22→21:46)
[2017-07-12 05:58] LABS: ABSOLUTE LYMPHOCYTES# (MANUAL) 0.9 10^3/uL (0.5-4.7); ABSOLUTE MONOCYTES # (MANUAL) 0.3 10^3/uL (0.1-1.4); ABSOLUTE NEUTROPHILS# (MANUAL) 11.4 10^3/uL (1.7-8.2); BAND NEUTROPHILS % (MANUAL) 2 % (3-5); BASOPHILS % (MANUAL) 0 % (0-2); EOSINOPHILS % (MANUAL) 0 % (0-6); LYMPHOCYTES % (MANUAL) 7 % (13-45); METAMYELOCYTES % (MANUAL) 1 % (0); MONOCYTES % (MANUAL) 2 % (3-13); PLATELET COMMENT ADEQUATE; SEGMENTED NEUTROPHILS % (MAN) 88 % (42-78); TOTAL CELLS COUNTED 100
[2017-07-12] MEDS: LEVOFLOXACIN 750 MG/D5W RTU 750 MG/150 ML RTUPB IV SCH (10:04)
[2017-07-12] MEDS: APIXABAN 5 MG TABLET PO SCH ×2 (10:04→21:46)
[2017-07-12] MEDS: CITALOPRAM HYDROBROMIDE 20 MG TABLET PO SCH (10:05)
[2017-07-12] MEDS: PSYLLIUM SEED-SF 5.85 GM PACKET PO SCH ×2 (10:05→19:05)
[2017-07-12] MEDS: ASPIRIN 81 MG TABLET, ENT COATED PO SCH (10:05)
[2017-07-12] MEDS: OXYCODONE-ACETAMINOPHEN 5-325 MG TABLET PO PRN (12:36)
[2017-07-12] MEDS: ACETAZOLAMIDE 250 MG TABLET PO SCH ×2 (12:38→19:05)
[2017-07-12] MEDS: NORMAL SALINE 1000 ML 1,000 ML IV PRN (14:51)
--- NOTE | 2017-07-12 20:17 | PDOC PROGRESS REPORT ---
Subjective Progress Note for:: 07/11/17 Subjective:: Patient reported some improvement in her breathing, continue to experience productive cough but less yellow in color! No chest pain or palpitation. Reason For Visit: EXACERBATED COPD ACUTE BRONCHITIS Physical Exam Vital Signs: Temp Pulse Resp BP Pulse Ox 98.5 F 91 21 H 133/66 H 93 07/11/17 04:00 07/11/17 04:00 07/11/17 04:00 07/11/17 04:00 07/11/17 04:00 Intake & Output 07/10/17 07/11/17 07/12/17 06:59 06:59 06:59 Intake Total 3250 2942 Balance 3250 2942 Weight 49.5 kg 49.8 kg General appearance: PRESENT: mild distress - remain on supplemental oxygen via nasal cannula Head exam: PRESENT: atraumatic, normocephalic Mouth exam: PRESENT: moist Respiratory exam: PRESENT: decreased breath sounds, rhonchi - expiratory phase Cardiovascular exam: PRESENT: RRR. ABSENT: diastolic murmur, rubs, systolic murmur Vascular exam: PRESENT: normal capillary refill, pallor GI/Abdominal exam: PRESENT: normal bowel sounds, soft. ABSENT: distended, guarding, mass, organolmegaly, rebound, tenderness Extremities exam: ABSENT: pedal edema Musculoskeletal exam: PRESENT: normal inspection Neurological exam: PRESENT: alert, awake, oriented to person, oriented to place , oriented to time, oriented to situation, CN II-XII grossly intact. ABSENT: motor sensory deficit Skin exam: PRESENT: dry, intact, warm Results Laboratory Results: 07/11/17 04:22 07/11/17 04:22 07/11/17 07/11/17 04:22 04:22 WBC 22.2 H RBC 3.62 L Hgb 9.7 L Hct 31.5 L MCV 87 MCH 26.8 L MCHC 30.9 L RDW 19.0 H Plt Count 435 Seg Neutrophils % Not Reportable Lymphocytes % Not Reportable Monocytes % Not Reportable Eosinophils % Not Reportable Basophils % Not Reportable Absolute Neutrophils Not Reportable Absolute Lymphocytes Not Reportable Absolute Monocytes Not Reportable Absolute Eosinophils Not Reportable Absolute Basophils Not Reportable Sodium 141.2 Potassium 4.9 Chloride 113 H Carbon Dioxide 20 L Anion Gap 8 BUN 30 H Creatinine 0.95 Est GFR ( Amer) > 60 Est GFR (Non-Af Amer) 58 L Glucose 114 H Calcium 9.4 Impressions: Chest X-Ray 07/08/17 09:58 IMPRESSION: Obstructive lung disease. No acute infiltrates. Assessment & Plan - Diagnosis (1) Decompensated COPD with exacerbation (chronic obstructive pulmonary disease) Is this a current diagnosis for this admission?: Yes Plan: Improving respiratory function. Decrease IV Solu Medrol to 40 mg q8hr. (2) Acute bronchitis with COPD Is this a current diagnosis for this admission?: Yes Plan: Continue on Levofloxacin coverage. (3) CAD (coronary artery disease) Qualifiers: Coronary Disease-Associated Artery/Lesion type: [place] artery Associated angina: without angina Is this a current diagnosis for this admission?: Yes Plan: Continue current medication management. (4) Cardiac dysrhythmia Qualifiers: Arrhythmia type: unspecified cardiac arrhythmia Qualified Code(s): I49.9 - Cardiac arrhythmia, unspecified Is this a current diagnosis for this admission?: Yes Plan: Continue current medication management. (5) H/O cardiac pacemaker Is this a current diagnosis for this admission?: Yes Plan: Continue current medication management. (6) HTN (hypertension) Qualifiers: Hypertension type: essential hypertension Qualified Code(s): I10 - Essential (primary) hypertension Is this a current diagnosis for this admission?: Yes Plan: Continue current medication management. (7) HLD (hyperlipidemia) Qualifiers: Hyperlipidemia type: pure hypercholesterolemia Qualified Code(s): E78.00 - Pure hypercholesterolemia, unspecified Is this a current diagnosis for this admission?: Yes Plan: Continue current medication management. (8) GERD (gastroesophageal reflux disease) Qualifiers: Esophagitis presence: without esophagitis Qualified Code(s): K21.9 - Gastro -esophageal reflux disease without esophagitis Is this a current diagnosis for this admission?: Yes Plan: Continue current medication management. (9) Mixed anxiety and depressive disorder Is this a current diagnosis for this admission?: Yes Plan: Continue current medication management. - Time Time Spent with patient: 25-34 minutes - Inpatient Certification Based on my medical assessment, after consideration of the patient's comorbidities, presenting symptoms, or acuity I expect that the services needed warrant INPATIENT care.: Yes I certify that my determination is in accordance with my understanding of Medicare's requirements for reasonable and necessary INPATIENT services [42 CFR 412.3e].: Yes Medical Necessity: Need Close Monitoring Due to Risk of Patient Decompensation, Need For Continuous Telemetry Monitoring, Need for Nebulizer Therapy and Monitoring of Response, Need for IV Antibiotics, Risk of Complication if Not Cared For in Hospital Post Hospital Care: D/C Technical Communicator Documentation - Plan Summary Plan Summary: Decrease IV Solu Medrol dosage to 40 mg [id number]. Continue all other current medication management.
--- NOTE | 2017-07-12 20:20 | PDOC PROGRESS REPORT ---
Subjective Progress Note for:: 07/12/17 Subjective:: Patient reported not feeling well today but cannot pinpoint her dismay. She denied any chest pain. Continue to cough with sputum production. No definite fever or chills. No nausea or vomiting. Reason For Visit: EXACERBATED COPD ACUTE BRONCHITIS Physical Exam Vital Signs: Temp Pulse Resp BP Pulse Ox 97.9 F 73 16 134/67 H 98 07/12/17 15:21 07/12/17 15:21 07/12/17 12:33 07/12/17 15:21 07/12/17 15:21 Intake & Output 07/11/17 07/12/17 07/13/17 06:59 06:59 06:59 Intake Total 2942 1770 7590 Balance 2942 1770 7559 Weight 49.8 kg 49.5 kg Physical Exam: General appearance: PRESENT: mild distress - remain on supplemental oxygen via nasal cannula Head exam: PRESENT: atraumatic, normocephalic Mouth exam: PRESENT: moist Respiratory exam: PRESENT: decreased breath sounds, rhonchi - expiratory phase Cardiovascular exam: PRESENT: RRR. ABSENT: diastolic murmur, rubs, systolic murmur Vascular exam: PRESENT: normal capillary refill, pallor GI/Abdominal exam: PRESENT: normal bowel sounds, soft. ABSENT: distended, guarding, mass, organomegaly, rebound, tenderness Extremities exam: ABSENT: pedal edema Musculoskeletal exam: PRESENT: normal inspection Neurological exam: PRESENT: alert, awake, oriented to person, oriented to place , oriented to time, oriented to situation, CN II-XII grossly intact. ABSENT: motor sensory deficit Skin exam: PRESENT: dry, intact, warm Results Laboratory Results: 07/12/17 04:41 07/12/17 04:41 07/12/17 07/12/17 04:41 04:41 WBC 12.5 H RBC 3.88 Hgb 10.4 L Hct 33.6 L MCV 87 MCH 26.8 L MCHC 30.9 L RDW 19.4 H Plt Count 388 Seg Neutrophils % Not Reportable Lymphocytes % Not Reportable Monocytes % Not Reportable Eosinophils % Not Reportable Basophils % Not Reportable Absolute Neutrophils Not Reportable Absolute Lymphocytes Not Reportable Absolute Monocytes Not Reportable Absolute Eosinophils Not Reportable Absolute Basophils Not Reportable Sodium 142.1 Potassium 4.1 Chloride 114 H Carbon Dioxide 19 L Anion Gap 9 BUN 35 H Creatinine 0.94 Est GFR ( Amer) > 60 Est GFR (Non-Af Amer) 58 L Glucose 152 H Calcium 9.2 Impressions: Chest X-Ray 07/08/17 09:58 IMPRESSION: Obstructive lung disease. No acute infiltrates. Assessment & Plan - Diagnosis (1) Decompensated COPD with exacerbation (chronic obstructive pulmonary disease) Is this a current diagnosis for this admission?: Yes (2) Acute bronchitis with COPD Is this a current diagnosis for this admission?: Yes (3) CAD (coronary artery disease) Qualifiers: Coronary Disease-Associated Artery/Lesion type: [place] artery Associated angina: without angina Is this a current diagnosis for this admission?: Yes (4) Cardiac dysrhythmia Qualifiers: Arrhythmia type: unspecified cardiac arrhythmia Qualified Code(s): I49.9 - Cardiac arrhythmia, unspecified Is this a current diagnosis for this admission?: Yes (5) H/O cardiac pacemaker Is this a current diagnosis for this admission?: Yes (6) HTN (hypertension) Qualifiers: Hypertension type: essential hypertension Qualified Code(s): I10 - Essential (primary) hypertension Is this a current diagnosis for this admission?: Yes (7) HLD (hyperlipidemia) Qualifiers: Hyperlipidemia type: pure hypercholesterolemia Qualified Code(s): E78.00 - Pure hypercholesterolemia, unspecified Is this a current diagnosis for this admission?: Yes (8) GERD (gastroesophageal reflux disease) Qualifiers: Esophagitis presence: without esophagitis Qualified Code(s): K21.9 - Gastro -esophageal reflux disease without esophagitis Is this a current diagnosis for this admission?: Yes (9) Mixed anxiety and depressive disorder Is this a current diagnosis for this admission?: Yes - Time Time Spent with patient: 25-34 minutes Medications reviewed and adjusted accordingly: Yes Anticipated discharge: Home with Homehealth Within: Other - Inpatient Certification Based on my medical assessment, after consideration of the patient's comorbidities, presenting symptoms, or acuity I expect that the services needed warrant INPATIENT care.: Yes I certify that my determination is in accordance with my understanding of Medicare's requirements for reasonable and necessary INPATIENT services [42 CFR 412.3e].: Yes Medical Necessity: Need Close Monitoring Due to Risk of Patient Decompensation, Need For IV Fluids, Need For Continuous Telemetry Monitoring, Need for Nebulizer Therapy and Monitoring of Response, Risk of Complication if Not Cared For in Hospital Post Hospital Care: D/C Cribber 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
[2017-07-12] MEDS ORDERED: METHYLPREDNISOLONE INJ 125 MG/2 ML SDV IV SCH (20:21)
[2017-07-12] MEDS: PREGABALIN 50 MG CAPSULE PO SCH (21:45)
[2017-07-12] MEDS: MONTELUKAST SODIUM 10 MG TABLET PO SCH (21:45)
[2017-07-12] MEDS: METHYLPREDNISOLONE INJ 40 MG/1 ML SDV IV SCH (21:52)
[2017-07-13] MEDS: OXYCODONE-ACETAMINOPHEN 5-325 MG TABLET PO PRN ×3 (00:15→23:44)
[2017-07-13] MEDS: ZOLPIDEM TARTRATE 5 MG TABLET PO PRN ×2 (00:16→23:44)
[2017-07-13] MEDS: ALPRAZOLAM 0.5 MG TABLET PO SCH ×3 (05:50→22:52)
[2017-07-13] MEDS: BUSPIRONE HCL 10 MG TABLET PO SCH ×3 (05:50→22:52)
[2017-07-13] MEDS: LANSOPRAZOLE 30 MG TAB.RAP.DR PO SCH (05:50)
[2017-07-13] MEDS: NORMAL SALINE 1000 ML 1,000 ML IV PRN (05:50)
[2017-07-13] MEDS: ROPINIROLE HCL 1 MG TABLET PO SCH ×3 (05:50→22:52)
[2017-07-13] MEDS: METHYLPREDNISOLONE INJ 40 MG/1 ML SDV IV SCH ×3 (05:51→22:52)
--- NOTE | 2017-07-13 07:54 | PDOC PROGRESS REPORT ---
Subjective Progress Note for:: 07/13/17 Subjective:: Her breathing is better this morning. No chest pain. Remain on supplemental oxygen via nasal cannula. No nausea, vomiting, or abdominal pain. Reason For Visit: EXACERBATED COPD ACUTE BRONCHITIS Physical Exam Vital Signs: Temp Pulse Resp BP Pulse Ox 98.1 F 60 15 146/67 H 98 07/13/17 00:20 07/13/17 07:00 07/13/17 00:20 07/13/17 00:20 07/13/17 00:25 Intake & Output 07/12/17 07/13/17 07/14/17 06:59 06:59 06:59 Intake Total 1770 8709 Output Total 300 Balance 1770 8409 Weight 49.5 kg 53.6 kg Physical Exam: General appearance: PRESENT: mild distress - remain on supplemental oxygen via nasal cannula Head exam: PRESENT: atraumatic, normocephalic Mouth exam: PRESENT: moist Respiratory exam: PRESENT: decreased breath sounds, rhonchi - expiratory phase Cardiovascular exam: PRESENT: RRR. ABSENT: diastolic murmur, rubs, systolic murmur Vascular exam: PRESENT: normal capillary refill, pallor GI/Abdominal exam: PRESENT: normal bowel sounds, soft. ABSENT: distended, guarding, mass, organomegaly, rebound, tenderness Extremities exam: ABSENT: pedal edema Musculoskeletal exam: PRESENT: normal inspection Neurological exam: PRESENT: alert, awake, oriented to person, oriented to place , oriented to time, oriented to situation, CN II-XII grossly intact. ABSENT: motor sensory deficit Skin exam: PRESENT: dry, intact, warm Results Laboratory Results: 07/12/17 04:41 07/12/17 04:41 Impressions: Chest X-Ray 07/08/17 09:58 IMPRESSION: Obstructive lung disease. No acute infiltrates. Assessment & Plan - Diagnosis (1) Decompensated COPD with exacerbation (chronic obstructive pulmonary disease) Is this a current diagnosis for this admission?: Yes (2) Acute bronchitis with COPD Is this a current diagnosis for this admission?: Yes (3) CAD (coronary artery disease) Qualifiers: Coronary Disease-Associated Artery/Lesion type: [place] artery Associated angina: without angina Is this a current diagnosis for this admission?: Yes (4) Cardiac dysrhythmia Qualifiers: Arrhythmia type: unspecified cardiac arrhythmia Qualified Code(s): I49.9 - Cardiac arrhythmia, unspecified Is this a current diagnosis for this admission?: Yes (5) H/O cardiac pacemaker Is this a current diagnosis for this admission?: Yes (6) HTN (hypertension) Qualifiers: Hypertension type: essential hypertension Qualified Code(s): I10 - Essential (primary) hypertension Is this a current diagnosis for this admission?: Yes (7) HLD (hyperlipidemia) Qualifiers: Hyperlipidemia type: pure hypercholesterolemia Qualified Code(s): E78.00 - Pure hypercholesterolemia, unspecified Is this a current diagnosis for this admission?: Yes (8) GERD (gastroesophageal reflux disease) Qualifiers: Esophagitis presence: without esophagitis Qualified Code(s): K21.9 - Gastro -esophageal reflux disease without esophagitis Is this a current diagnosis for this admission?: Yes (9) Mixed anxiety and depressive disorder Is this a current diagnosis for this admission?: Yes - Time Time Spent with patient: 25-34 minutes Medications reviewed and adjusted accordingly: Yes Anticipated discharge: Home with Homehealth Within: Other - Inpatient Certification Based on my medical assessment, after consideration of the patient's comorbidities, presenting symptoms, or acuity I expect that the services needed warrant INPATIENT care.: Yes I certify that my determination is in accordance with my understanding of Medicare's requirements for reasonable and necessary INPATIENT services [42 CFR 412.3e].: Yes Medical Necessity: Need Close Monitoring Due to Risk of Patient Decompensation, Need For IV Fluids, Need For Continuous Telemetry Monitoring, Risk of Complication if Not Cared For in Hospital 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 Physical therapy evaluation to mobilize today.
[2017-07-13] MEDS: ACETAZOLAMIDE 250 MG TABLET PO SCH ×2 (09:57→18:00)
[2017-07-13] MEDS: ASPIRIN 81 MG TABLET, ENT COATED PO SCH (09:57)
[2017-07-13] MEDS: CITALOPRAM HYDROBROMIDE 20 MG TABLET PO SCH (09:57)
[2017-07-13] MEDS: PSYLLIUM SEED-SF 5.85 GM PACKET PO SCH ×2 (09:57→17:59)
[2017-07-13] MEDS: APIXABAN 5 MG TABLET PO SCH ×2 (09:57→22:52)
[2017-07-13] MEDS: LEVALBUTEROL HCL NEB 1.25 MG/3 ML AMPUL NEB PRN (12:52)
[2017-07-13] MEDS: MONTELUKAST SODIUM 10 MG TABLET PO SCH (22:52)
[2017-07-13] MEDS: PREGABALIN 50 MG CAPSULE PO SCH (22:52)
[2017-07-13] MEDS: OXYCODONE HCL IR 5 MG TABLET PO PRN (23:44)
[2017-07-14 05:29] LABS: HEMATOCRIT 33.5 % (36.0-47.0); HEMOGLOBIN 10.4 g/dL (12.0-15.5); MEAN CORPUSCULAR HEMOGLOBIN 26.8 pg (27.0-33.4); MEAN CORPUSCULAR HGB CONC 31.1 g/dL (32.0-36.0); MEAN CORPUSCULAR VOLUME 86 fl (80-97); PLATELET COUNT 465 10^3/uL (150-450); RED BLOOD COUNT 3.89 10^6/uL (3.72-5.28); RED CELL DISTRIBUTION WIDTH 19.2 % (11.5-14.0)
[2017-07-14] MEDS: ALPRAZOLAM 0.5 MG TABLET PO SCH ×3 (05:31→21:15)
[2017-07-14] MEDS: LANSOPRAZOLE 30 MG TAB.RAP.DR PO SCH (05:32)
[2017-07-14] MEDS: BUSPIRONE HCL 10 MG TABLET PO SCH ×3 (05:32→21:15)
[2017-07-14] MEDS: ROPINIROLE HCL 1 MG TABLET PO SCH ×3 (05:32→21:15)
[2017-07-14] MEDS: METHYLPREDNISOLONE INJ 40 MG/1 ML SDV IV SCH ×3 (05:32→21:15)
[2017-07-14 05:50] LABS: ANION GAP 5 (5-19); BLOOD UREA NITROGEN 32 mg/dL (7-20); CALCIUM 8.4 mg/dL (8.4-10.2); CARBON DIOXIDE 21 mmol/L (22-30); CHLORIDE 114 mmol/L (98-107); GLUCOSE 118 mg/dL (75-110); POTASSIUM 4.3 mmol/L (3.6-5.0); SODIUM 140.3 mmol/L (137-145)
[2017-07-14 05:55] LABS: ABSOLUTE LYMPHOCYTES# (MANUAL) 0.8 10^3/uL (0.5-4.7); ABSOLUTE MONOCYTES # (MANUAL) 0.7 10^3/uL (0.1-1.4); ABSOLUTE NEUTROPHILS# (MANUAL) 12.5 10^3/uL (1.7-8.2); BAND NEUTROPHILS % (MANUAL) 3 % (3-5); BASOPHILS % (MANUAL) 0 % (0-2); EOSINOPHILS % (MANUAL) 0 % (0-6); LYMPHOCYTES % (MANUAL) 6 % (13-45); MONOCYTES % (MANUAL) 5 % (3-13); SEGMENTED NEUTROPHILS % (MAN) 86 % (42-78); TOTAL CELLS COUNTED 100
[2017-07-14 05:56] LABS: ANISOCYTOSIS 2+; HYPOCHROMASIA SLIGHT; PLATELET COMMENT INCREASED; POIKILOCYTOSIS SLIGHT; TOXIC GRANULATION SLIGHT
--- NOTE | 2017-07-14 07:57 | PDOC PROGRESS REPORT ---
Subjective Progress Note for:: 07/14/17 Subjective:: No chest pain. Breathing is improving but productive cough persist. Remain on supplemental oxygen via nasal cannula. No nausea, vomiting, or abdominal pain. Reason For Visit: EXACERBATED COPD ACUTE BRONCHITIS Physical Exam Vital Signs: Temp Pulse Resp BP Pulse Ox 97.8 F 63 17 127/67 H 99 07/14/17 04:00 07/14/17 04:00 07/14/17 04:00 07/14/17 04:00 07/14/17 04:00 Intake & Output 07/13/17 07/14/17 07/15/17 06:59 06:59 06:59 Intake Total 8709 1674 Output Total 300 Balance 8409 1674 Weight 53.6 kg 53.4 kg Physical Exam: General appearance: PRESENT: mild distress - remain on supplemental oxygen via nasal cannula Head exam: PRESENT: atraumatic, normocephalic Mouth exam: PRESENT: moist Respiratory exam: PRESENT: decreased breath sounds, rhonchi - expiratory phase Cardiovascular exam: PRESENT: RRR. ABSENT: diastolic murmur, rubs, systolic murmur Vascular exam: PRESENT: normal capillary refill ABSENT: pallor GI/Abdominal exam: PRESENT: normal bowel sounds, soft. ABSENT: distended, guarding, mass, organomegaly, rebound, tenderness Extremities exam: ABSENT: pedal edema Musculoskeletal exam: PRESENT: normal inspection Neurological exam: PRESENT: alert, awake, oriented to person, oriented to place , oriented to time, oriented to situation, CN II-XII grossly intact. ABSENT: motor sensory deficit Skin exam: PRESENT: dry, intact, warm Results Laboratory Results: 07/14/17 04:27 07/14/17 04:27 07/14/17 07/14/17 04:27 04:27 WBC 14.0 H RBC 3.89 Hgb 10.4 L Hct 33.5 L MCV 86 MCH 26.8 L MCHC 31.1 L RDW 19.2 H Plt Count 465 H Seg Neutrophils % Not Reportable Lymphocytes % Not Reportable Monocytes % Not Reportable Eosinophils % Not Reportable Basophils % Not Reportable Absolute Neutrophils Not Reportable Absolute Lymphocytes Not Reportable Absolute Monocytes Not Reportable Absolute Eosinophils Not Reportable Absolute Basophils Not Reportable Sodium 140.3 Potassium 4.3 Chloride 114 H Carbon Dioxide 21 L Anion Gap 5 BUN 32 H Creatinine 0.94 Est GFR ( Amer) > 60 Est GFR (Non-Af Amer) 58 L Glucose 118 H Calcium 8.4 Impressions: Chest X-Ray 07/08/17 09:58 IMPRESSION: Obstructive lung disease. No acute infiltrates. Assessment & Plan - Diagnosis (1) Decompensated COPD with exacerbation (chronic obstructive pulmonary disease) Is this a current diagnosis for this admission?: Yes (2) Acute bronchitis with COPD Is this a current diagnosis for this admission?: Yes (3) CAD (coronary artery disease) Qualifiers: Coronary Disease-Associated Artery/Lesion type: [place] artery Associated angina: without angina Is this a current diagnosis for this admission?: Yes (4) Cardiac dysrhythmia Qualifiers: Arrhythmia type: unspecified cardiac arrhythmia Qualified Code(s): I49.9 - Cardiac arrhythmia, unspecified Is this a current diagnosis for this admission?: Yes (5) H/O cardiac pacemaker Is this a current diagnosis for this admission?: Yes (6) HTN (hypertension) Qualifiers: Hypertension type: essential hypertension Qualified Code(s): I10 - Essential (primary) hypertension Is this a current diagnosis for this admission?: Yes (7) HLD (hyperlipidemia) Qualifiers: Hyperlipidemia type: pure hypercholesterolemia Qualified Code(s): E78.00 - Pure hypercholesterolemia, unspecified Is this a current diagnosis for this admission?: Yes (8) GERD (gastroesophageal reflux disease) Qualifiers: Esophagitis presence: without esophagitis Qualified Code(s): K21.9 - Gastro -esophageal reflux disease without esophagitis Is this a current diagnosis for this admission?: Yes (9) Mixed anxiety and depressive disorder Is this a current diagnosis for this admission?: Yes - Time Time Spent with patient: 25-34 minutes Medications reviewed and adjusted accordingly: Yes Anticipated discharge: Home with Homehealth Within: Other - Inpatient Certification Based on my medical assessment, after consideration of the patient's comorbidities, presenting symptoms, or acuity I expect that the services needed warrant INPATIENT care.: Yes I certify that my determination is in accordance with my understanding of Medicare's requirements for reasonable and necessary INPATIENT services [42 CFR 412.3e].: Yes Medical Necessity: Need Close Monitoring Due to Risk of Patient Decompensation, Need For IV Fluids, Need For Continuous Telemetry Monitoring, Need for Nebulizer Therapy and Monitoring of Response, Risk of Complication if Not Cared For in Hospital Post Hospital Care: D/C 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 Encouraged use of Flutter to aide expectoration.
[2017-07-14] MEDS: CITALOPRAM HYDROBROMIDE 20 MG TABLET PO SCH (09:33)
[2017-07-14] MEDS: ASPIRIN 81 MG TABLET, ENT COATED PO SCH (09:34)
[2017-07-14] MEDS: ACETAZOLAMIDE 250 MG TABLET PO SCH ×2 (09:34→17:26)
[2017-07-14] MEDS: LEVOFLOXACIN 750 MG TABLET PO SCH (09:34)
[2017-07-14] MEDS: APIXABAN 5 MG TABLET PO SCH ×2 (09:35→21:15)
[2017-07-14] MEDS: NORMAL SALINE 1000 ML 1,000 ML IV PRN ×2 (09:35→22:28)
[2017-07-14] MEDS: PSYLLIUM SEED-SF 5.85 GM PACKET PO SCH ×2 (09:36→17:26)
[2017-07-14] MEDS: OXYCODONE-ACETAMINOPHEN 5-325 MG TABLET PO PRN ×2 (11:19→22:28)
[2017-07-14] MEDS: OXYCODONE HCL IR 5 MG TABLET PO PRN ×2 (11:19→22:29)
[2017-07-14] MEDS: MONTELUKAST SODIUM 10 MG TABLET PO SCH (21:15)
[2017-07-14] MEDS: PREGABALIN 50 MG CAPSULE PO SCH (21:15)
[2017-07-14] MEDS: ZOLPIDEM TARTRATE 5 MG TABLET PO PRN (22:28)
[2017-07-15] MEDS: BUSPIRONE HCL 10 MG TABLET PO SCH ×3 (06:21→22:49)
[2017-07-15] MEDS: ALPRAZOLAM 0.5 MG TABLET PO SCH ×2 (06:21→14:38)
[2017-07-15] MEDS: LANSOPRAZOLE 30 MG TAB.RAP.DR PO SCH (06:21)
[2017-07-15] MEDS: OXYCODONE HCL IR 5 MG TABLET PO PRN ×2 (06:21→14:37)
[2017-07-15] MEDS: OXYCODONE-ACETAMINOPHEN 5-325 MG TABLET PO PRN ×3 (06:21→23:36)
[2017-07-15] MEDS: METHYLPREDNISOLONE INJ 40 MG/1 ML SDV IV SCH ×3 (06:22→22:50)
[2017-07-15] MEDS: ROPINIROLE HCL 1 MG TABLET PO SCH ×3 (06:23→22:49)
--- NOTE | 2017-07-15 08:26 | PDOC PROGRESS REPORT ---
Subjective Progress Note for:: 07/15/17 Subjective:: Patient reported ongoing early satiety and feeling full with minimal intake. She claimed associated abdominal pain this morning. No nausea or vomiting. No chest pain. Breathing at baseline. Remain on supplemental oxygen via nasal cannula. Reason For Visit: EXACERBATED COPD ACUTE BRONCHITIS Physical Exam Vital Signs: Temp Pulse Resp BP Pulse Ox 98.2 F 60 19 130/72 H 99 07/15/17 04:00 07/15/17 07:00 07/15/17 04:00 07/15/17 04:00 07/15/17 04:00 Intake & Output 07/14/17 07/15/17 07/16/17 06:59 06:59 06:59 Intake Total 1674 2965 Output Total 1800 Balance 1674 1165 Weight 53.4 kg 54.9 kg Physical Exam: General appearance: PRESENT: mild distress - remain on supplemental oxygen via nasal cannula Head exam: PRESENT: atraumatic, normocephalic Mouth exam: PRESENT: moist Respiratory exam: PRESENT: decreased breath sounds, rhonchi - expiratory phase Cardiovascular exam: PRESENT: RRR. ABSENT: diastolic murmur, rubs, systolic murmur Vascular exam: PRESENT: normal capillary refill ABSENT: pallor GI/Abdominal exam: PRESENT: normal bowel sounds, soft. ABSENT: distended, guarding, mass, organomegaly, rebound, tenderness Extremities exam: ABSENT: pedal edema Musculoskeletal exam: PRESENT: normal inspection Neurological exam: PRESENT: alert, awake, oriented to person, oriented to place , oriented to time, oriented to situation, CN II-XII grossly intact. ABSENT: motor sensory deficit Skin exam: PRESENT: dry, intact, warm Results Laboratory Results: 07/14/17 04:27 07/14/17 04:27 Impressions: Chest X-Ray 07/08/17 09:58 IMPRESSION: Obstructive lung disease. No acute infiltrates. Assessment & Plan - Diagnosis (1) Decompensated COPD with exacerbation (chronic obstructive pulmonary disease) Is this a current diagnosis for this admission?: Yes (2) Acute bronchitis with COPD Is this a current diagnosis for this admission?: Yes (3) CAD (coronary artery disease) Qualifiers: Coronary Disease-Associated Artery/Lesion type: [place] artery Associated angina: without angina Is this a current diagnosis for this admission?: Yes (4) Cardiac dysrhythmia Qualifiers: Arrhythmia type: unspecified cardiac arrhythmia Qualified Code(s): I49.9 - Cardiac arrhythmia, unspecified Is this a current diagnosis for this admission?: Yes (5) H/O cardiac pacemaker Is this a current diagnosis for this admission?: Yes (6) HTN (hypertension) Qualifiers: Hypertension type: essential hypertension Qualified Code(s): I10 - Essential (primary) hypertension Is this a current diagnosis for this admission?: Yes (7) HLD (hyperlipidemia) Qualifiers: Hyperlipidemia type: pure hypercholesterolemia Qualified Code(s): E78.00 - Pure hypercholesterolemia, unspecified Is this a current diagnosis for this admission?: Yes (8) GERD (gastroesophageal reflux disease) Qualifiers: Esophagitis presence: without esophagitis Qualified Code(s): K21.9 - Gastro -esophageal reflux disease without esophagitis Is this a current diagnosis for this admission?: Yes (9) Mixed anxiety and depressive disorder Is this a current diagnosis for this admission?: Yes (10) Abdominal pain Qualifiers: Abdominal location: generalized Qualified Code(s): R10.84 - Generalized abdominal pain Is this a current diagnosis for this admission?: Yes Plan: See attending physician orders (11) Early satiety Is this a current diagnosis for this admission?: Yes Plan: See attending physician orders - Time Time Spent with patient: 25-34 minutes Medications reviewed and adjusted accordingly: Yes Anticipated discharge: Home with Homehealth Within: Other - Inpatient Certification Based on my medical assessment, after consideration of the patient's comorbidities, presenting symptoms, or acuity I expect that the services needed warrant INPATIENT care.: Yes I certify that my determination is in accordance with my understanding of Medicare's requirements for reasonable and necessary INPATIENT services [42 CFR 412.3e].: Yes Medical Necessity: Need Close Monitoring Due to Risk of Patient Decompensation, Need For IV Fluids, Need For Continuous Telemetry Monitoring, Need for Nebulizer Therapy and Monitoring of Response, Risk of Complication if Not Cared For in Hospital Post Hospital Care: D/C Mingler Operator Documentation - Plan Summary Plan Summary: See attending physician orders
[2017-07-15] MEDS: CITALOPRAM HYDROBROMIDE 20 MG TABLET PO SCH (10:08)
[2017-07-15] MEDS: PSYLLIUM SEED-SF 5.85 GM PACKET PO SCH ×2 (10:08→18:25)
[2017-07-15] MEDS: ASPIRIN 81 MG TABLET, ENT COATED PO SCH (10:09)
[2017-07-15] MEDS: ACETAZOLAMIDE 250 MG TABLET PO SCH ×2 (10:09→18:23)
[2017-07-15] MEDS: APIXABAN 5 MG TABLET PO SCH ×2 (10:09→22:48)
--- NOTE | 2017-07-15 12:15 | RADIOLOGY REPORT (SQ) ---
EXAM DESCRIPTION: CT ABD/PELVIS WITH IV ORAL COMPLETED DATE/TIME: 07/15/2017 11:46 am REASON FOR STUDY: Abdominal pain with early satiety COMPARISON: None. TECHNIQUE: CT scan of the abdomen and pelvis performed using helical scanning technique with dynamic intravenous contrast injection. Oral contrast. Images reviewed with lung, soft tissue, and bone win dows. Reconstructed coronal and sagittal MPR images reviewed. Delayed images for evaluation of the ur inary system also acquired. All images stored on PACS. All CT scanners at this facility use dose modulation, iterative reconstruction, and/or weight based d osing when appropriate to reduce radiation dose to as low as reasonably achievable (ALARA). [facility]: Dose Right [facility]: CareDose [facility]: Dose Right [facility]: Teradose 4D [facility]: Enconcert CONTRAST TYPE AND DOSE: contrast/concentration: Isovue 370.00 mg/ml; Total Contrast Delivered: 59.0 ml; Total Saline Delivered: 65.0 ml RENAL FUNCTION: BUN 32 creatinine 0.94 RADIATION DOSE: CT Rad equipment meets quality standard of care and radiation dose reduction techniq ues were employed. CTDIvol: 4.0 - 4.7 mGy. DLP: 396 mGy-cm.. LIMITATIONS: None. FINDINGS: LOWER CHEST: Subsegmental atelectasis in the right base. Minimal pleural effusions. LIVER: Normal size. No masses. No dilated ducts. SPLEEN: Normal size. No focal lesions. PANCREAS: No masses. No significant calcifications. No adjacent inflammation or peripancreatic fluid collections. Pancreatic duct not dilated. GALLBLADDER: No identified stones by CT criteria. No inflammatory changes to suggest cholecystitis. ADRENAL GLANDS: No significant masses or asymmetry. RIGHT KIDNEY AND URETER: No solid masses. A tiny nonobstructing intrarenal calculus is present. N o hydronephrosis or hydroureter. LEFT KIDNEY AND URETER: No solid masses. No significant calcifications. No hydronephrosis or hydr oureter. AORTA AND VESSELS: No aneurysm. Atherosclerosis. RETROPERITONEUM: No retroperitoneal adenopathy, hemorrhage or masses. BOWEL AND PERITONEAL CAVITY: No masses or inflammatory changes. No free fluid or peritoneal masses. APPENDIX: Normal. PELVIS: No mass. No free fluid. Normal bladder. ABDOMINAL WALL: Questionable wide ventral hernia. However, the peritoneum and fascia appear to be in tact BONES: ORIF in each hip. No osseous lesions are seen. OTHER: No other significant finding. IMPRESSION: 1. Subsegmental atelectasis. Minimal pleural effusions. 2. Nonobstructing right renal calculus. 3. Questionable wide ventral hernia. TECHNICAL DOCUMENTATION: JOB ID: [id number] Quality ID # [id number]: Final reports with documentation of one or more dose reduction techniques (e.g., Au tomated exposure control, adjustment of the mA and/or kV according to patient size, use of iterative reconstruction technique) 2010 [employer]- All Rights Reserved Reading location - IP/workstation name: [email or web address]
[2017-07-15] MEDS: NORMAL SALINE 1000 ML 1,000 ML IV PRN (14:39)
[2017-07-15] MEDS ORDERED: ALPRAZOLAM 0.5 MG TABLET PO ONE (22:45)
[2017-07-15] MEDS: MONTELUKAST SODIUM 10 MG TABLET PO SCH (22:48)
[2017-07-15] MEDS: PREGABALIN 50 MG CAPSULE PO SCH (22:49)
[2017-07-15] MEDS: ZOLPIDEM TARTRATE 5 MG TABLET PO PRN (23:37)
[2017-07-16] MEDS: LANSOPRAZOLE 30 MG TAB.RAP.DR PO SCH (05:20)
[2017-07-16] MEDS: BUSPIRONE HCL 10 MG TABLET PO SCH ×3 (05:20→22:56)
[2017-07-16] MEDS: METHYLPREDNISOLONE INJ 40 MG/1 ML SDV IV SCH ×3 (05:20→22:57)
[2017-07-16] MEDS: ROPINIROLE HCL 1 MG TABLET PO SCH ×3 (05:20→22:54)
[2017-07-16] MEDS: NORMAL SALINE 1000 ML 1,000 ML IV PRN ×2 (05:21→18:00)
[2017-07-16] MEDS: ALPRAZOLAM 0.5 MG TABLET PO SCH ×3 (05:21→22:56)
[2017-07-16] MEDS: PSYLLIUM SEED-SF 5.85 GM PACKET PO SCH ×2 (09:29→17:28)
[2017-07-16] MEDS: ACETAZOLAMIDE 250 MG TABLET PO SCH ×2 (09:30→18:00)
[2017-07-16] MEDS: ASPIRIN 81 MG TABLET, ENT COATED PO SCH (09:31)
[2017-07-16] MEDS: CITALOPRAM HYDROBROMIDE 20 MG TABLET PO SCH (09:31)
[2017-07-16] MEDS: APIXABAN 5 MG TABLET PO SCH ×2 (09:31→22:54)
[2017-07-16] MEDS: LEVOFLOXACIN 750 MG TABLET PO SCH (09:32)
--- NOTE | 2017-07-16 13:23 | PDOC PROGRESS REPORT ---
Subjective Progress Note for:: 07/16/17 Subjective:: Patient is seen by the bedside, there is no new complaints Reason For Visit: EXACERBATED COPD ACUTE BRONCHITIS Physical Exam Vital Signs: Temp Pulse Resp BP Pulse Ox 97.2 F 84 20 141/62 H 100 07/16/17 11:10 07/16/17 11:10 07/16/17 11:10 07/16/17 11:10 07/16/17 11:10 Intake & Output 07/15/17 07/16/17 07/17/17 06:59 06:59 06:59 Intake Total 2965 2235 Output Total 1800 1300 Balance 1165 935 Weight 54.9 kg 57.2 kg General appearance: PRESENT: no acute distress Head exam: PRESENT: atraumatic, normocephalic Eye exam: PRESENT: PERRLA Ear exam: PRESENT: normal external ear exam Mouth exam: PRESENT: moist, tongue midline Neck exam: PRESENT: full ROM Vascular exam: PRESENT: normal capillary refill GI/Abdominal exam: PRESENT: diminished bowel sounds, normal bowel sounds, soft Rectal exam: PRESENT: deferred Neurological exam: PRESENT: alert Psychiatric exam: PRESENT: appropriate affect, normal mood Skin exam: PRESENT: dry, intact, warm Results Laboratory Results: 07/14/17 04:27 07/14/17 04:27 Impressions: Chest X-Ray 07/08/17 09:58 IMPRESSION: Obstructive lung disease. No acute infiltrates. Abdomen/Pelvis CT 07/15/17 00:00 IMPRESSION: 1. Subsegmental atelectasis. Minimal pleural effusions. 2. Nonobstructing right renal calculus. 3. Questionable wide ventral hernia. Assessment & Plan - Diagnosis (1) Decompensated COPD with exacerbation (chronic obstructive pulmonary disease) Is this a current diagnosis for this admission?: Yes Plan: Continue medication
[2017-07-16] MEDS: OXYCODONE-ACETAMINOPHEN 5-325 MG TABLET PO PRN (13:24)
[2017-07-16] MEDS: PREGABALIN 50 MG CAPSULE PO SCH (22:54)
[2017-07-16] MEDS: MONTELUKAST SODIUM 10 MG TABLET PO SCH (22:57)
[2017-07-16] MEDS: LEVALBUTEROL HCL NEB 1.25 MG/3 ML AMPUL NEB PRN (23:17)
[2017-07-17] MEDS: ZOLPIDEM TARTRATE 5 MG TABLET PO PRN ×2 (00:06→22:59)
[2017-07-17] MEDS: OXYCODONE-ACETAMINOPHEN 5-325 MG TABLET PO PRN ×3 (00:07→23:00)
[2017-07-17] MEDS: ALPRAZOLAM 0.5 MG TABLET PO SCH ×3 (05:08→22:57)
[2017-07-17] MEDS: BUSPIRONE HCL 10 MG TABLET PO SCH ×3 (05:08→22:55)
[2017-07-17] MEDS: LANSOPRAZOLE 30 MG TAB.RAP.DR PO SCH (05:09)
[2017-07-17] MEDS: ROPINIROLE HCL 1 MG TABLET PO SCH ×3 (05:09→22:56)
[2017-07-17] MEDS: METHYLPREDNISOLONE INJ 40 MG/1 ML SDV IV SCH (05:09)
[2017-07-17 07:14] LABS: HEMATOCRIT 32.7 % (36.0-47.0); HEMOGLOBIN 10.2 g/dL (12.0-15.5); MEAN CORPUSCULAR HEMOGLOBIN 26.6 pg (27.0-33.4); MEAN CORPUSCULAR HGB CONC 31.1 g/dL (32.0-36.0); MEAN CORPUSCULAR VOLUME 86 fl (80-97); RED BLOOD COUNT 3.82 10^6/uL (3.72-5.28); RED CELL DISTRIBUTION WIDTH 19.9 % (11.5-14.0)
[2017-07-17 07:15] LABS: PLATELET COUNT 481 10^3/uL (150-450)
[2017-07-17 07:18] LABS: ALANINE AMINOTRANSFERASE 21 U/L (9-52); ALBUMIN 2.6 g/dL (3.5-5.0); ALKALINE PHOSPHATASE 73 U/L (38-126); ANION GAP 8 (5-19); ASPARTATE AMINO TRANSFERASE 16 U/L (14-36); BLOOD UREA NITROGEN 28 mg/dL (7-20); CALCIUM 8.1 mg/dL (8.4-10.2); CARBON DIOXIDE 23 mmol/L (22-30); CHLORIDE 110 mmol/L (98-107); GLUCOSE 119 mg/dL (75-110); POTASSIUM 4.4 mmol/L (3.6-5.0); SODIUM 141.1 mmol/L (137-145); TOTAL PROTEIN 5.1 g/dL (6.3-8.2)
[2017-07-17 07:19] LABS: BILIRUBIN,TOTAL < 0.1 mg/dL (0.2-1.3)
[2017-07-17 07:22] LABS: ABSOLUTE LYMPHOCYTES# (MANUAL) 1.3 10^3/uL (0.5-4.7); ABSOLUTE MONOCYTES # (MANUAL) 1.3 10^3/uL (0.1-1.4); ABSOLUTE NEUTROPHILS# (MANUAL) 29.6 10^3/uL (1.7-8.2); BASOPHILS % (MANUAL) 0 % (0-2); EOSINOPHILS % (MANUAL) 0 % (0-6); LYMPHOCYTES % (MANUAL) 4 % (13-45); METAMYELOCYTES % (MANUAL) 1 % (0); MONOCYTES % (MANUAL) 4 % (3-13); SEGMENTED NEUTROPHILS % (MAN) 91 % (42-78); TOTAL CELLS COUNTED 100
[2017-07-17 07:25] LABS: ANISOCYTOSIS 2+; HYPOCHROMASIA 1+; PLATELET COMMENT INCREASED
[2017-07-17 07:26] LABS: WHITE BLOOD COUNT 32.2 10^3/uL (4.0-10.5)
--- NOTE | 2017-07-17 08:40 | RADIOLOGY REPORT (SQ) ---
EXAM DESCRIPTION: CHEST SINGLE VIEW COMPLETED DATE/TIME: 07/17/2017 8:25 am REASON FOR STUDY: lungs sound congested COMPARISON: 07/08/2017. 10/20/2016. FINDINGS: Single-view chest, AP portable upright at approximately 0803 hours. Hyperinflated. Mild skin fold artifacts. Faint right mid lung zone opacity may represent early deve loping pneumonia. Stable cardiomediastinal silhouette with prominent [place] bilaterally. This looks unchanged. Right port and left pacer remain in place. IMPRESSION: Potential mild patchy developing right lung infiltrate. Otherwise stable exam. TECHNICAL DOCUMENTATION: JOB ID: [id number] Reading location - IP/workstation name: [email or web address]
[2017-07-17] MEDS: CITALOPRAM HYDROBROMIDE 20 MG TABLET PO SCH (10:03)
[2017-07-17] MEDS: ASPIRIN 81 MG TABLET, ENT COATED PO SCH (10:03)
[2017-07-17] MEDS: OXYCODONE HCL IR 5 MG TABLET PO PRN (10:04)
[2017-07-17] MEDS: ACETAZOLAMIDE 250 MG TABLET PO SCH ×2 (10:05→17:23)
[2017-07-17] MEDS: APIXABAN 5 MG TABLET PO SCH ×2 (10:06→22:56)
[2017-07-17] MEDS: PSYLLIUM SEED-SF 5.85 GM PACKET PO SCH ×2 (10:07→17:22)
[2017-07-17 13:30] LABS: HEMATOCRIT 34.4 % (36.0-47.0); HEMOGLOBIN 10.6 g/dL (12.0-15.5); MEAN CORPUSCULAR HEMOGLOBIN 26.6 pg (27.0-33.4); MEAN CORPUSCULAR HGB CONC 30.8 g/dL (32.0-36.0); MEAN CORPUSCULAR VOLUME 86 fl (80-97); PLATELET COUNT 532 10^3/uL (150-450); RED BLOOD COUNT 3.99 10^6/uL (3.72-5.28); RED CELL DISTRIBUTION WIDTH 20.4 % (11.5-14.0); WHITE BLOOD COUNT 28.3 10^3/uL (4.0-10.5)
[2017-07-17 13:51] LABS: ABSOLUTE LYMPHOCYTES# (MANUAL) 2.3 10^3/uL (0.5-4.7); ABSOLUTE MONOCYTES # (MANUAL) 2.3 10^3/uL (0.1-1.4); ABSOLUTE NEUTROPHILS# (MANUAL) 23.8 10^3/uL (1.7-8.2); BASOPHILS % (MANUAL) 0 % (0-2); EOSINOPHILS % (MANUAL) 0 % (0-6); LYMPHOCYTES % (MANUAL) 6 % (13-45); MONOCYTES % (MANUAL) 8 % (3-13); SEGMENTED NEUTROPHILS % (MAN) 84 % (42-78); TOTAL CELLS COUNTED 100
[2017-07-17 13:56] LABS: ANISOCYTOSIS 2+; HYPOCHROMASIA SLIGHT; OVALOCYTES SLIGHT; PLATELET CLUMPS PRESENT; PLATELET COMMENT INCREASED; POIKILOCYTOSIS SLIGHT; TOXIC GRANULATION 1+; TOXIC VACUOLATION PRESENT
[2017-07-17] MEDS ORDERED: PREDNISONE 20 MG TABLET PO ONE (14:00)
--- NOTE | 2017-07-17 14:05 | RADIOLOGY REPORT (SQ) ---
EXAM DESCRIPTION: CT CHEST WITHOUT COMPLETED DATE/TIME: 07/17/2017 1:48 pm REASON FOR STUDY: pneumonia COMPARISON: 2017. Radiographs from earlier today. CT abdomen 07/15/2017. TECHNIQUE: CT scan performed of the chest without intravenous contrast. Images reviewed with lung, soft tissue and bone windows. Reconstructed coronal and sagittal MPR images reviewed. All images st ored on PACS. All CT scanners at this facility use dose modulation, iterative reconstruction, and/or weight based d osing when appropriate to reduce radiation dose to as low as reasonably achievable (ALARA). [facility]: Dose Right [facility]: CareDose [facility]: Dose Right [facility]: Teradose 4D [facility]: [employer] RADIATION DOSE: CT Rad equipment meets quality standard of care and radiation dose reduction techniq ues were employed. CTDIvol: 5.4 mGy. DLP: 214 mGy-cm. mGy. LIMITATIONS: No technical limitations. FINDINGS: LUNGS AND PLEURA: Emphysema and scar. No significant pleural effusion or pneumonia on albaroalbert spicer's study. HILAR AND MEDIASTINAL STRUCTURES: Small stable nodes. HEART AND VASCULAR STRUCTURES: No aneurysm. No pericardial effusion. UPPER ABDOMEN: Nonobstructive right nephrolithiasis. Limited evaluation. THYROID AND OTHER SOFT TISSUES: No masses. No adenopathy. BONES: Osteopenic. Chronic T11 compression fracture. No acute lesion. HARDWARE: Right port and left pacer. OTHER: No other significant findings. IMPRESSION: 1. Stable chest. No acute or suspicious abnormality. TECHNICAL DOCUMENTATION: JOB ID: [id number] Quality ID # [id number]: Final reports with documentation of one or more dose reduction techniques (e.g., Au tomated exposure control, adjustment of the mA and/or kV according to patient size, use of iterative reconstruction technique) 2010 [employer]- All Rights Reserved Reading location - IP/workstation name: [email or web address]
--- NOTE | 2017-07-17 15:41 | PDOC PROGRESS REPORT ---
Subjective Progress Note for:: 07/17/17 Subjective:: She was seen by the bedside, the white blood cell count from today's lab work is significantly elevated 32,000, repeat 28,000, she is coughing a stat CT chest was done, there is no acute infiltrate, it showed emphysema. She is presently on Solu-Medrol, this could also be a contributing factor in the etiology of the leukocytosis it is mainly neutrophilia consistent with steroid use. She is also coughing the cough is somewhat white, discontinue Solu-Medrol start prednisone 20 mg p.o. daily. She was supposed to be discharged home on Tuesday, yesterday I saw she was stable Reason For Visit: EXACERBATED COPD ACUTE BRONCHITIS Physical Exam Vital Signs: Temp Pulse Resp BP Pulse Ox 98.5 F 95 16 131/65 H 98 07/17/17 11:33 07/17/17 14:00 07/17/17 11:33 07/17/17 11:33 07/17/17 11:33 Intake & Output 07/16/17 07/17/17 07/18/17 06:59 06:59 06:59 Intake Total 2235 3772 Output Total 1300 1600 Balance 935 2172 Weight 57.2 kg 45.3 kg General appearance: PRESENT: no acute distress Eye exam: PRESENT: PERRLA Respiratory exam: PRESENT: rhonchi Cardiovascular exam: PRESENT: +S1, +S2 GI/Abdominal exam: PRESENT: soft Neurological exam: PRESENT: alert Results Laboratory Results: 07/17/17 12:58 07/17/17 05:16 07/17/17 07/17/17 07/17/17 05:16 05:16 12:58 WBC 32.2 H* 28.3 H RBC 3.82 3.99 Hgb 10.2 L 10.6 L Hct 32.7 L 34.4 L MCV 86 86 MCH 26.6 L 26.6 L MCHC 31.1 L 30.8 L RDW 19.9 H 20.4 H Plt Count 481 H 532 H Seg Neutrophils % Not Reportable Not Reportable Lymphocytes % Not Reportable Not Reportable Monocytes % Not Reportable Not Reportable Eosinophils % Not Reportable Not Reportable Basophils % Not Reportable Not Reportable Absolute Neutrophils Not Reportable Not Reportable Absolute Lymphocytes Not Reportable Not Reportable Absolute Monocytes Not Reportable Not Reportable Absolute Eosinophils Not Reportable Not Reportable Absolute Basophils Not Reportable Not Reportable Sodium 141.1 Potassium 4.4 Chloride 110 H Carbon Dioxide 23 Anion Gap 8 BUN 28 H Creatinine 0.90 Est GFR ( Amer) > 60 Est GFR (Non-Af Amer) > 60 Glucose 119 H Calcium 8.1 L Total Bilirubin < 0.1 L AST 16 ALT 21 Alkaline Phosphatase 73 Total Protein 5.1 L Albumin 2.6 L Impressions: Abdomen/Pelvis CT 07/15/17 00:00 IMPRESSION: 1. Subsegmental atelectasis. Minimal pleural effusions. 2. Nonobstructing right renal calculus. 3. Questionable wide ventral hernia. Chest X-Ray 07/16/17 00:00 IMPRESSION: Potential mild patchy developing right lung infiltrate. Otherwise stable exam. Chest CT 07/17/17 00:00 IMPRESSION: 1. Stable chest. No acute or suspicious abnormality. Assessment & Plan - Diagnosis (1) Decompensated COPD with exacerbation (chronic obstructive pulmonary disease) Is this a current diagnosis for this admission?: Yes (2) Leucocytosis Qualifiers: Leukocytosis type: leukemoid reaction Qualified Code(s): D72.823 - Leukemoid reaction Is this a current diagnosis for this admission?: Yes Plan: She has significant leukocytosis most likely from steroid use, chest x-ray showed no acute infiltrate to suggest pneumonia history of COPD
[2017-07-17] MEDS: PREGABALIN 50 MG CAPSULE PO SCH (22:56)
[2017-07-17] MEDS: MONTELUKAST SODIUM 10 MG TABLET PO SCH (22:57)
[2017-07-18] MEDS: LANSOPRAZOLE 30 MG TAB.RAP.DR PO SCH (05:01)
[2017-07-18] MEDS: ROPINIROLE HCL 1 MG TABLET PO SCH ×3 (05:01→21:32)
[2017-07-18] MEDS: BUSPIRONE HCL 10 MG TABLET PO SCH ×3 (05:02→21:32)
[2017-07-18] MEDS: ALPRAZOLAM 0.5 MG TABLET PO SCH ×3 (05:02→21:33)
[2017-07-18] MEDS ORDERED: PREDNISONE 20 MG TABLET PO SCH (10:00)
[2017-07-18] MEDS ORDERED: LEVOFLOXACIN 750 MG TABLET PO SCH (10:00)
[2017-07-18] MEDS: CITALOPRAM HYDROBROMIDE 20 MG TABLET PO SCH (10:33)
[2017-07-18] MEDS: APIXABAN 5 MG TABLET PO SCH ×2 (10:34→21:32)
[2017-07-18] MEDS: ASPIRIN 81 MG TABLET, ENT COATED PO SCH (10:36)
[2017-07-18] MEDS: PSYLLIUM SEED-SF 5.85 GM PACKET PO SCH ×2 (10:38→18:07)
[2017-07-18] MEDS: ACETAZOLAMIDE 250 MG TABLET PO SCH ×2 (10:38→18:07)
[2017-07-18] MEDS: OXYCODONE-ACETAMINOPHEN 5-325 MG TABLET PO PRN ×2 (15:19→23:32)
[2017-07-18] MEDS: OXYCODONE HCL IR 5 MG TABLET PO PRN (15:20)
[2017-07-18 17:59] LABS: HEMATOCRIT 35.1 % (36.0-47.0); HEMOGLOBIN 10.7 g/dL (12.0-15.5); MEAN CORPUSCULAR HEMOGLOBIN 26.7 pg (27.0-33.4); MEAN CORPUSCULAR HGB CONC 30.6 g/dL (32.0-36.0); MEAN CORPUSCULAR VOLUME 87 fl (80-97); PLATELET COUNT 493 10^3/uL (150-450); RED BLOOD COUNT 4.02 10^6/uL (3.72-5.28); WHITE BLOOD COUNT 21.7 10^3/uL (4.0-10.5)
[2017-07-18 18:26] LABS: ABSOLUTE LYMPHOCYTES# (MANUAL) 4.6 10^3/uL (0.5-4.7); ABSOLUTE MONOCYTES # (MANUAL) 1.5 10^3/uL (0.1-1.4); ABSOLUTE NEUTROPHILS# (MANUAL) 15.6 10^3/uL (1.7-8.2); BASOPHILS % (MANUAL) 0 % (0-2); EOSINOPHILS % (MANUAL) 0 % (0-6); LYMPHOCYTES % (MANUAL) 21 % (13-45); MONOCYTES % (MANUAL) 7 % (3-13); SEGMENTED NEUTROPHILS % (MAN) 72 % (42-78); TOTAL CELLS COUNTED 100
[2017-07-18 18:27] LABS: HYPOCHROMASIA SLIGHT; TOXIC GRANULATION 1+; TOXIC VACUOLATION PRESENT
[2017-07-18 18:28] LABS: ANISOCYTOSIS 3+; OVALOCYTES SLIGHT; PLATELET COMMENT INCREASED; POIKILOCYTOSIS SLIGHT
--- NOTE | 2017-07-18 19:02 | PDOC PROGRESS REPORT ---
Subjective Progress Note for:: 07/18/17 Subjective:: No chest pain. Breathing at baseline. Remain on supplemental oxygen via nasal cannula. No abdominal pain, nausea or vomiting. Patient reported bowel movement with each attempt at urinating. Reason For Visit: EXACERBATED COPD ACUTE BRONCHITIS Physical Exam Vital Signs: Temp Pulse Resp BP Pulse Ox 97.6 F 87 16 137/60 H 98 07/18/17 11:36 07/18/17 14:00 07/18/17 11:36 07/18/17 11:36 07/18/17 11:36 Intake & Output 07/17/17 07/18/17 07/19/17 06:59 06:59 06:59 Intake Total 3772 1359 10 Output Total 1600 2650 Balance 2172 -1291 10 Weight 45.3 kg 56.8 kg Physical Exam: General appearance: PRESENT: mild distress - remain on supplemental oxygen via nasal cannula Head exam: PRESENT: atraumatic, normocephalic Mouth exam: PRESENT: moist Respiratory exam: PRESENT: decreased breath sounds, rhonchi - expiratory phase Cardiovascular exam: PRESENT: RRR. ABSENT: diastolic murmur, rubs, systolic murmur Vascular exam: PRESENT: normal capillary refill ABSENT: pallor GI/Abdominal exam: PRESENT: normal bowel sounds, soft. ABSENT: distended, guarding, mass, organomegaly, rebound, tenderness Extremities exam: ABSENT: pedal edema Musculoskeletal exam: PRESENT: normal inspection Neurological exam: PRESENT: alert, awake, oriented to person, oriented to place , oriented to time, oriented to situation, CN II-XII grossly intact. ABSENT: motor sensory deficit Skin exam: PRESENT: dry, intact, warm Results Laboratory Results: 07/18/17 07:50 07/17/17 05:16 07/18/17 07:50 WBC 21.7 H RBC 4.02 Hgb 10.7 L Hct 35.1 L MCV 87 MCH 26.7 L MCHC 30.6 L RDW 21.0 H Plt Count 493 H Seg Neutrophils % Not Reportable Lymphocytes % Not Reportable Monocytes % Not Reportable Eosinophils % Not Reportable Basophils % Not Reportable Absolute Neutrophils Not Reportable Absolute Lymphocytes Not Reportable Absolute Monocytes Not Reportable Absolute Eosinophils Not Reportable Absolute Basophils Not Reportable Impressions: Abdomen/Pelvis CT 07/15/17 00:00 IMPRESSION: 1. Subsegmental atelectasis. Minimal pleural effusions. 2. Nonobstructing right renal calculus. 3. Questionable wide ventral hernia. Chest X-Ray 07/16/17 00:00 IMPRESSION: Potential mild patchy developing right lung infiltrate. Otherwise stable exam. Chest CT 07/17/17 00:00 IMPRESSION: 1. Stable chest. No acute or suspicious abnormality. Assessment & Plan - Diagnosis (1) Decompensated COPD with exacerbation (chronic obstructive pulmonary disease) Is this a current diagnosis for this admission?: Yes Plan: Improving respiratory function. Decrease Prednisone to 10 mg p.o daily from tomorrow. (2) Acute bronchitis with COPD Is this a current diagnosis for this admission?: Yes Plan: D/C Levofloxacin coverage. (3) CAD (coronary artery disease) Qualifiers: Coronary Disease-Associated Artery/Lesion type: [place] artery Associated angina: without angina Is this a current diagnosis for this admission?: Yes Plan: Continue current medication management. (4) Cardiac dysrhythmia Qualifiers: Arrhythmia type: unspecified cardiac arrhythmia Qualified Code(s): I49.9 - Cardiac arrhythmia, unspecified Is this a current diagnosis for this admission?: Yes Plan: Continue current medication management. (5) H/O cardiac pacemaker Is this a current diagnosis for this admission?: Yes Plan: Continue current medication management. (6) HTN (hypertension) Qualifiers: Hypertension type: essential hypertension Qualified Code(s): I10 - Essential (primary) hypertension Is this a current diagnosis for this admission?: Yes Plan: Continue current medication management. (7) HLD (hyperlipidemia) Qualifiers: Hyperlipidemia type: pure hypercholesterolemia Qualified Code(s): E78.00 - Pure hypercholesterolemia, unspecified Is this a current diagnosis for this admission?: Yes Plan: Continue current medication management. (8) GERD (gastroesophageal reflux disease) Qualifiers: Esophagitis presence: without esophagitis Qualified Code(s): K21.9 - Gastro -esophageal reflux disease without esophagitis Is this a current diagnosis for this admission?: Yes Plan: Continue current medication management. (9) Mixed anxiety and depressive disorder Is this a current diagnosis for this admission?: Yes Plan: Continue current medication management. (10) Abdominal pain Qualifiers: Abdominal location: generalized Qualified Code(s): R10.84 - Generalized abdominal pain Is this a current diagnosis for this admission?: Yes Plan: Resolved. (11) Early satiety Is this a current diagnosis for this admission?: Yes Plan: improving. - Time Time Spent with patient: 25-34 minutes Medications reviewed and adjusted accordingly: Yes Anticipated discharge: Home with Homehealth Within: Other - Inpatient Certification Based on my medical assessment, after consideration of the patient's comorbidities, presenting symptoms, or acuity I expect that the services needed warrant INPATIENT care.: Yes I certify that my determination is in accordance with my understanding of Medicare's requirements for reasonable and necessary INPATIENT services [42 CFR 412.3e].: Yes Medical Necessity: Need Close Monitoring Due to Risk of Patient Decompensation, Need For Continuous Telemetry Monitoring, Need for Nebulizer Therapy and Monitoring of Response, Risk of Complication if Not Cared For in Hospital 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
[2017-07-18 19:40] LABS: BLOOD UREA NITROGEN 35 mg/dL (7-20); CALCIUM 8.5 mg/dL (8.4-10.2); GLUCOSE 83 mg/dL (75-110); POTASSIUM 4.6 mmol/L (3.6-5.0)
[2017-07-18 19:46] LABS: ANION GAP 5 (5-19); CARBON DIOXIDE 27 mmol/L (22-30); CHLORIDE 108 mmol/L (98-107); SODIUM 140.4 mmol/L (137-145)
[2017-07-18] MEDS: PREGABALIN 50 MG CAPSULE PO SCH (21:32)
[2017-07-18] MEDS: MONTELUKAST SODIUM 10 MG TABLET PO SCH (21:33)
[2017-07-18] MEDS: ZOLPIDEM TARTRATE 5 MG TABLET PO PRN (23:32)
[2017-07-19 05:40] LABS: HEMATOCRIT 34.8 % (36.0-47.0); MEAN CORPUSCULAR HEMOGLOBIN 27.2 pg (27.0-33.4); MEAN CORPUSCULAR HGB CONC 31.5 g/dL (32.0-36.0); MEAN CORPUSCULAR VOLUME 87 fl (80-97); PLATELET COUNT 449 10^3/uL (150-450); RED BLOOD COUNT 4.02 10^6/uL (3.72-5.28); RED CELL DISTRIBUTION WIDTH 20.9 % (11.5-14.0); WHITE BLOOD COUNT 19.9 10^3/uL (4.0-10.5)
[2017-07-19 06:11] LABS: ABSOLUTE MONOCYTES # (MANUAL) 0.8 10^3/uL (0.1-1.4); ABSOLUTE NEUTROPHILS# (MANUAL) 16.1 10^3/uL (1.7-8.2); BAND NEUTROPHILS % (MANUAL) 1 % (3-5); BASOPHILS % (MANUAL) 0 % (0-2); EOSINOPHILS % (MANUAL) 0 % (0-6); LYMPHOCYTES % (MANUAL) 15 % (13-45); METAMYELOCYTES % (MANUAL) 2 % (0); MONOCYTES % (MANUAL) 4 % (3-13); SEGMENTED NEUTROPHILS % (MAN) 78 % (42-78); TOTAL CELLS COUNTED 100
[2017-07-19 06:13] LABS: ANISOCYTOSIS 2+; BURR CELLS SLIGHT; OVALOCYTES SLIGHT; POIKILOCYTOSIS SLIGHT; TOXIC GRANULATION SLIGHT
[2017-07-19 06:14] LABS: HYPOCHROMASIA SLIGHT; PLATELET COMMENT ADEQUATE
[2017-07-19] MEDS: ALPRAZOLAM 0.5 MG TABLET PO SCH ×3 (06:39→21:07)
[2017-07-19] MEDS: LANSOPRAZOLE 30 MG TAB.RAP.DR PO SCH (06:39)
[2017-07-19] MEDS: ROPINIROLE HCL 1 MG TABLET PO SCH ×3 (06:39→21:07)
[2017-07-19] MEDS: BUSPIRONE HCL 10 MG TABLET PO SCH ×3 (06:39→21:07)
[2017-07-19] MEDS: OXYCODONE-ACETAMINOPHEN 5-325 MG TABLET PO PRN ×2 (07:44→16:40)
--- NOTE | 2017-07-19 08:08 | PDOC PROGRESS REPORT ---
Subjective Progress Note for:: 07/19/17 Subjective:: No chest pain. Breathing at baseline. Remain on supplemental oxygen via nasal cannula. No fever or chills. No abdominal pain, nausea or vomiting. She denied diarrhea but continue to experience bowel movement with each attempt at urinating. Reason For Visit: EXACERBATED COPD ACUTE BRONCHITIS Physical Exam Vital Signs: Temp Pulse Resp BP Pulse Ox 97.3 F 80 20 143/69 H 95 07/19/17 04:00 07/19/17 07:00 07/19/17 04:00 07/19/17 04:00 07/19/17 04:00 Intake & Output 07/18/17 07/19/17 07/20/17 06:59 06:59 06:59 Intake Total 1359 1173 Output Total 2650 Balance -1291 1173 Weight 56.8 kg 53.3 kg Physical Exam: General appearance: PRESENT: mild distress - remain on supplemental oxygen via nasal cannula Head exam: PRESENT: atraumatic, normocephalic Mouth exam: PRESENT: moist Respiratory exam: PRESENT: decreased breath sounds, rhonchi - expiratory phase Cardiovascular exam: PRESENT: RRR. ABSENT: diastolic murmur, rubs, systolic murmur Vascular exam: ABSENT: pallor GI/Abdominal exam: PRESENT: normal bowel sounds, soft. ABSENT: distended, guarding, mass, organomegaly, rebound, tenderness Extremities exam: ABSENT: pedal edema Musculoskeletal exam: PRESENT: normal inspection Neurological exam: PRESENT: alert, awake, oriented to person, oriented to place , oriented to time, oriented to situation, CN II-XII grossly intact. ABSENT: motor sensory deficit Skin exam: PRESENT: dry, intact, warm Results Laboratory Results: 07/19/17 04:16 07/18/17 07:50 07/18/17 07/18/17 07/19/17 07:50 07:50 04:16 WBC 21.7 H 19.9 H RBC 4.02 4.02 Hgb 10.7 L 11.0 L Hct 35.1 L 34.8 L MCV 87 87 MCH 26.7 L 27.2 MCHC 30.6 L 31.5 L RDW 21.0 H 20.9 H Plt Count 493 H 449 Seg Neutrophils % Not Reportable Not Reportable Lymphocytes % Not Reportable Not Reportable Monocytes % Not Reportable Not Reportable Eosinophils % Not Reportable Not Reportable Basophils % Not Reportable Not Reportable Absolute Neutrophils Not Reportable Not Reportable Absolute Lymphocytes Not Reportable Not Reportable Absolute Monocytes Not Reportable Not Reportable Absolute Eosinophils Not Reportable Not Reportable Absolute Basophils Not Reportable Not Reportable Sodium 140.4 Potassium 4.6 Chloride 108 H Carbon Dioxide 27 Anion Gap 5 BUN 35 H Creatinine 0.91 Est GFR ( Amer) > 60 Est GFR (Non-Af Amer) > 60 Glucose 83 Calcium 8.5 Impressions: Abdomen/Pelvis CT 07/15/17 00:00 IMPRESSION: 1. Subsegmental atelectasis. Minimal pleural effusions. 2. Nonobstructing right renal calculus. 3. Questionable wide ventral hernia. Chest X-Ray 07/16/17 00:00 IMPRESSION: Potential mild patchy developing right lung infiltrate. Otherwise stable exam. Chest CT 07/17/17 00:00 IMPRESSION: 1. Stable chest. No acute or suspicious abnormality. Assessment & Plan - Diagnosis (1) Decompensated COPD with exacerbation (chronic obstructive pulmonary disease) Is this a current diagnosis for this admission?: Yes Plan: Improving respiratory function. Decrease Prednisone to 5 mg p.o daily. (2) Acute bronchitis with COPD Is this a current diagnosis for this admission?: Yes Plan: Improved. (3) CAD (coronary artery disease) Qualifiers: Coronary Disease-Associated Artery/Lesion type: [place] artery Associated angina: without angina Is this a current diagnosis for this admission?: Yes Plan: Continue current medication management. (4) Cardiac dysrhythmia Qualifiers: Arrhythmia type: unspecified cardiac arrhythmia Qualified Code(s): I49.9 - Cardiac arrhythmia, unspecified Is this a current diagnosis for this admission?: Yes Plan: Continue current medication management. (5) H/O cardiac pacemaker Is this a current diagnosis for this admission?: Yes Plan: Continue current medication management. (6) HTN (hypertension) Qualifiers: Hypertension type: essential hypertension Qualified Code(s): I10 - Essential (primary) hypertension Is this a current diagnosis for this admission?: Yes Plan: Continue current medication management. (7) HLD (hyperlipidemia) Qualifiers: Hyperlipidemia type: pure hypercholesterolemia Qualified Code(s): E78.00 - Pure hypercholesterolemia, unspecified Is this a current diagnosis for this admission?: Yes Plan: Continue current medication management. (8) GERD (gastroesophageal reflux disease) Qualifiers: Esophagitis presence: without esophagitis Qualified Code(s): K21.9 - Gastro -esophageal reflux disease without esophagitis Is this a current diagnosis for this admission?: Yes Plan: Continue current medication management. (9) Mixed anxiety and depressive disorder Is this a current diagnosis for this admission?: Yes (10) Abdominal pain Qualifiers: Abdominal location: generalized Qualified Code(s): R10.84 - Generalized abdominal pain Is this a current diagnosis for this admission?: Yes Plan: Resolved. (11) Early satiety Is this a current diagnosis for this admission?: Yes Plan: improving. - Time Time Spent with patient: 25-34 minutes Medications reviewed and adjusted accordingly: Yes Anticipated discharge: Home with Homehealth Within: Other - Inpatient Certification Based on my medical assessment, after consideration of the patient's comorbidities, presenting symptoms, or acuity I expect that the services needed warrant INPATIENT care.: Yes I certify that my determination is in accordance with my understanding of Medicare's requirements for reasonable and necessary INPATIENT services [42 CFR 412.3e].: Yes Medical Necessity: Need Close Monitoring Due to Risk of Patient Decompensation, Need For Continuous Telemetry Monitoring, Need for Nebulizer Therapy and Monitoring of Response, Risk of Complication if Not Cared For in Hospital 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 Follow up on stool evaluation for possible C.difficile toxin titer.
[2017-07-19 08:22] LABS: PATH REVIEW PATHOLOGIST REVIEWED
[2017-07-19] MEDS: PSYLLIUM SEED-SF 5.85 GM PACKET PO SCH ×2 (08:55→17:13)
[2017-07-19 09:01] LABS: HEMATOCRIT 33.7 % (36.0-47.0); HEMOGLOBIN 10.8 g/dL (12.0-15.5); MEAN CORPUSCULAR HEMOGLOBIN 27.1 pg (27.0-33.4); MEAN CORPUSCULAR VOLUME 85 fl (80-97); PLATELET COUNT 429 10^3/uL (150-450); RED BLOOD COUNT 3.99 10^6/uL (3.72-5.28); RED CELL DISTRIBUTION WIDTH 20.5 % (11.5-14.0); WHITE BLOOD COUNT 17.4 10^3/uL (4.0-10.5)
[2017-07-19] MEDS: ACETAZOLAMIDE 250 MG TABLET PO SCH ×2 (09:03→17:15)
[2017-07-19] MEDS: CITALOPRAM HYDROBROMIDE 20 MG TABLET PO SCH (09:03)
[2017-07-19] MEDS: APIXABAN 5 MG TABLET PO SCH ×2 (09:04→21:07)
[2017-07-19] MEDS: ASPIRIN 81 MG TABLET, ENT COATED PO SCH (09:04)
[2017-07-19] MEDS: PREDNISONE 5 MG TABLET PO SCH (09:25)
[2017-07-19 09:59] LABS: ABSOLUTE LYMPHOCYTES# (MANUAL) 4.5 10^3/uL (0.5-4.7); ABSOLUTE MONOCYTES # (MANUAL) 2.3 10^3/uL (0.1-1.4); ABSOLUTE NEUTROPHILS# (MANUAL) 10.6 10^3/uL (1.7-8.2); BASOPHILS % (MANUAL) 0 % (0-2); EOSINOPHILS % (MANUAL) 0 % (0-6); LYMPHOCYTES % (MANUAL) 26 % (13-45); METAMYELOCYTES % (MANUAL) 1 % (0); MONOCYTES % (MANUAL) 13 % (3-13); NUCLEATED RED BLOOD CELLS 1 /100 WBC (0); SEGMENTED NEUTROPHILS % (MAN) 60 % (42-78); TOTAL CELLS COUNTED 100
[2017-07-19 10:00] LABS: ANISOCYTOSIS 2+; BURR CELLS SLIGHT; PLATELET COMMENT ADEQUATE; POIKILOCYTOSIS SLIGHT; POLYCHROMASIA SLIGHT; SCHISTOCYTES SLIGHT; TARGET CELLS 1+; TOXIC GRANULATION SLIGHT
[2017-07-19] MEDS ORDERED: PREDNISONE 10 MG TABLET PO SCH (10:00)
[2017-07-19] MEDS: MONTELUKAST SODIUM 10 MG TABLET PO SCH (21:07)
[2017-07-19] MEDS: PREGABALIN 50 MG CAPSULE PO SCH (21:07)
[2017-07-19] MEDS: ZOLPIDEM TARTRATE 5 MG TABLET PO PRN (22:57)
[2017-07-20] MEDS: OXYCODONE-ACETAMINOPHEN 5-325 MG TABLET PO PRN (00:32)
[2017-07-20] MEDS: LANSOPRAZOLE 30 MG TAB.RAP.DR PO SCH (05:47)
[2017-07-20] MEDS: ALPRAZOLAM 0.5 MG TABLET PO SCH (05:47)
[2017-07-20] MEDS: BUSPIRONE HCL 10 MG TABLET PO SCH (05:47)
[2017-07-20] MEDS: ROPINIROLE HCL 1 MG TABLET PO SCH (05:47)
--- NOTE | 2017-07-20 08:19 | PDOC DISCHARGE SUMMARY ---
General - Admit/Disc Date/PCP Admission Date/Primary Care Provider: 07/08/17 13:42 SARITA ANNA Discharge Date: 07/20/17 - Discharge Diagnosis (1) Decompensated COPD with exacerbation (chronic obstructive pulmonary disease) Is this a current diagnosis for this admission?: Yes Summary: Improved. (2) Acute bronchitis with COPD Is this a current diagnosis for this admission?: Yes Summary: Resolved (3) CAD (coronary artery disease) Is this a current diagnosis for this admission?: Yes Summary: Stable (4) Cardiac dysrhythmia Is this a current diagnosis for this admission?: Yes Summary: Stable (5) H/O cardiac pacemaker Is this a current diagnosis for this admission?: Yes Summary: Stable. (6) HTN (hypertension) Is this a current diagnosis for this admission?: Yes Summary: Stable. (7) HLD (hyperlipidemia) Is this a current diagnosis for this admission?: Yes Summary: Stable. (8) GERD (gastroesophageal reflux disease) Is this a current diagnosis for this admission?: Yes Summary: Stable. (9) Mixed anxiety and depressive disorder Is this a current diagnosis for this admission?: Yes Summary: Stable. (10) Abdominal pain Is this a current diagnosis for this admission?: Yes Summary: Resolved. (11) Early satiety Is this a current diagnosis for this admission?: Yes Summary: Stable. - Additional Information Resuscitation Status: Full Code Discharge Diet: Regular Discharge Activity: Activity As Tolerated Prescriptions: Alprazolam [Xanax 0.5 mg Tablet] 0.5 mg PO Q8 #60 tablet Prednisone [Deltasone 5 mg Tablet] 5 mg PO DAILY #7 tablet Home Medications: Acetazolamide [Diamox 250 mg Tab] 250 mg PO BID 07/08/17 Albuterol Sulfate [Albuterol Sulfate 2.5mg/3 mL] 1 vial NEB DAILYP PRN 07/08/17 Apixaban [Eliquis 5 mg Tablet] 5 mg PO Q12 07/08/17 Buspirone HCl [Buspar 15 mg Tablet] 7.5 mg PO TID 07/08/17 Citalopram Hydrobromide [Celexa 40 mg Tablet] 40 mg PO DAILY 07/08/17 Montelukast Sodium [Singulair 10 mg Tablet] 10 mg PO DAILY 07/08/17 Oxycodone HCl/Acetaminophen [Percocet 7.5-325 mg Tablet] 1 tab PO Q8HP PRN 07/08 Pregabalin [Lyrica 50 mg Capsule] 50 mg PO QHS 07/08/17 Ropinirole HCl [Requip] 1 mg PO TID 07/08/17 Zolpidem Tartrate [Ambien 5 mg Tablet] 5 mg PO HSP PRN 07/08/17 Alprazolam [Xanax 0.5 mg Tablet] 0.5 mg PO Q8 #60 tablet 07/20/17 Prednisone [Deltasone 5 mg Tablet] 5 mg PO DAILY #7 tablet 07/20/17 History of Present Illness Patient complains of: Worsening difficulty with breathing History of Present Illness: SUSAN BINGHAM is a 76 year old female known to my practice presented to the ED with worsening difficulty with breathing for several days. Patient has baseline end stage COPD oxygen dependent. She reported increase sputum production with some amount of blood component, chest congestion, low grade fever and chills for couple of days. She denied definite chest pain. She claimed compliance with all her medications. No nausea, vomiting or abdominal pain. Her initial evaluation in the Ed was remarkable for tachypnea, tachycardia and leukocytosis. Her chest X ray revealed features of COPD without acute infiltrate. Her morbidities are extensive and include oxygen dependent COPD with recurrent admissions, Hypertension, Hyperlipidemia, GERD, Pulmonary Embolism, Cardiac arrhythmia, mixed anxiety with depressive mood. She was advised hospitalization for exacerbated COPD and acute bronchitis. Hospital Course Hospital Course: Admitted for acute bronchitis with exacerbated end stage COPD oxygen dependent. She responded to supplemental oxygen support, antibiotic therapy, and IV steroid treatment. She was transition to oral therapy with Levofloxacin and oral Prednisone. Her significant Leukocytosis was due to steroid therapy and currently showing downward trend. She denied any fever or chills. No diarrhea, abdominal pain, nausea or vomiting. Encouraged increase oral intake. She is agreeable to discharge home today. She will be discharge with home health services for ADL assistance and skill nursing to oversee medication compliance and post acute care support. She will follow up in the office as instructed upon discharge. Physical Exam Vital Signs: Temp Pulse Resp BP Pulse Ox 97.8 F 73 16 143/74 H 93 07/20/17 07:31 07/20/17 07:31 07/20/17 07:31 07/20/17 07:31 07/20/17 07:31 Intake & Output 07/19/17 07/20/17 07/21/17 06:59 06:59 06:59 Intake Total 1173 2758 Output Total 3120 Balance 1173 -362 Weight 53.3 kg 53.3 kg Physical Exam: General appearance: PRESENT: mild distress - remain on supplemental oxygen via nasal cannula Head exam: PRESENT: atraumatic, normocephalic Mouth exam: PRESENT: moist Respiratory exam: PRESENT: decreased breath sounds, rhonchi - expiratory phase Cardiovascular exam: PRESENT: RRR. ABSENT: diastolic murmur, rubs, systolic murmur Vascular exam: ABSENT: pallor GI/Abdominal exam: PRESENT: normal bowel sounds, soft. ABSENT: distended, guarding, mass, organomegaly, rebound, tenderness Extremities exam: ABSENT: pedal edema Musculoskeletal exam: PRESENT: normal inspection Neurological exam: PRESENT: alert, awake, oriented to person, oriented to place , oriented to time, oriented to situation, CN II-XII grossly intact. ABSENT: motor sensory deficit Skin exam: PRESENT: dry, intact, warm Results Laboratory Results: 07/19/17 08:25 07/18/17 07:50 07/19/17 08:25 WBC 17.4 H RBC 3.99 Hgb 10.8 L Hct 33.7 L MCV 85 MCH 27.1 MCHC 32.0 RDW 20.5 H Plt Count 429 Seg Neutrophils % Not Reportable Lymphocytes % Not Reportable Monocytes % Not Reportable Eosinophils % Not Reportable Basophils % Not Reportable Absolute Neutrophils Not Reportable Absolute Lymphocytes Not Reportable Absolute Monocytes Not Reportable Absolute Eosinophils Not Reportable Absolute Basophils Not Reportable Impressions: Abdomen/Pelvis CT 07/15/17 00:00 IMPRESSION: 1. Subsegmental atelectasis. Minimal pleural effusions. 2. Nonobstructing right renal calculus. 3. Questionable wide ventral hernia. Chest X-Ray 07/16/17 00:00 IMPRESSION: Potential mild patchy developing right lung infiltrate. Otherwise stable exam. Chest CT 07/17/17 00:00 IMPRESSION: 1. Stable chest. No acute or suspicious abnormality. Qualifiers - * PATIENT BEING DISCHARGED WITH ANY OF THE FOLLOWING DIAGNOSIS: No Plan Discharge Plan: Discharge home today with home health agency services. Follow up in the office as instructed upon discharge.
[2017-07-20 08:36] VITALS: BP 132/76
[2017-07-20] MEDS: CITALOPRAM HYDROBROMIDE 20 MG TABLET PO SCH (09:27)
[2017-07-20] MEDS: ACETAZOLAMIDE 250 MG TABLET PO SCH (09:28)
[2017-07-20] MEDS: ASPIRIN 81 MG TABLET, ENT COATED PO SCH (09:28)
[2017-07-20] MEDS: APIXABAN 5 MG TABLET PO SCH (09:28)
[2017-07-20] MEDS: PREDNISONE 5 MG TABLET PO SCH (09:28)
[2017-07-20] MEDS: PSYLLIUM SEED-SF 5.85 GM PACKET PO SCH (09:29)
[2017-07-20] MEDS: LEVALBUTEROL HCL NEB 1.25 MG/3 ML AMPUL NEB PRN (09:37)
== END 2017-07-20 11:40 | disposition home health service (06) | DRG 191 ==
LOC: ER 08:29 → EH 13:42 → 4N 15:20
PROVIDERS: ADMIT Internal Medicine Geriatric Medicine; ATTEND Internal Medicine Geriatric Medicine
PROC: 3E0F73Z Introduction of Anti-inflammatory into Respiratory Tract, Via Natural or Artificial Opening (ICD-10-PCS; principal; 2017-07-08)
DX: J44.1 Chronic obstructive pulmonary disease with (acute) exacerbation (principal); J96.12 Chronic respiratory failure with hypercapnia; J96.11 Chronic respiratory failure with hypoxia; J20.9 Acute bronchitis, unspecified; Z99.81 Dependence on supplemental oxygen; I10 Essential (primary) hypertension; E78.5 Hyperlipidemia, unspecified; K21.9 Gastro-esophageal reflux disease without esophagitis; J44.0 Chronic obstructive pulmonary disease with (acute) lower respiratory infection; F41.9 Anxiety disorder, unspecified; Z86.711 Personal history of pulmonary embolism; M19.90 Unspecified osteoarthritis, unspecified site; F32.9 Major depressive disorder, single episode, unspecified; I25.10 Atherosclerotic heart disease of native coronary artery without angina pectoris; F41.8 Other specified anxiety disorders; I49.9 Cardiac arrhythmia, unspecified; F03.90 Unspecified dementia, unspecified severity, without behavioral disturbance, psychotic disturbance, mood disturbance, and anxiety; R10.84 Generalized abdominal pain; D72.823 Leukemoid reaction; R68.81 Early satiety; Z96.642 Presence of left artificial hip joint; Z90.710 Acquired absence of both cervix and uterus; Z90.49 Acquired absence of other specified parts of digestive tract; Z95.0 Presence of cardiac pacemaker; Z79.82 Long term (current) use of aspirin; Z79.899 Other long term (current) drug therapy; Z88.6 Allergy status to analgesic agent; Z88.1 Allergy status to other antibiotic agents
CPT/HCPCS: 36415; 51701; 71045; 71250; 74177; 80048; 80053; 81001; 82550; 82553; 83735; 85025; 85610; 85730; 87040; 87086; 87088; 93005; 93010; 94640; 94667; 94799; 99285; G8978-GP; G8979-GP; J1956; J2920; J2930; J3490; J7030; J7512; J7620

== ENCOUNTER 2017-12-24 01:05 | Inpatient (IN) | payer MEDICARE, OTHER ==
[2017-12-24] MEDS ORDERED: LEVOFLOXACIN 750 MG/D5W RTU 750 MG/150 ML RTUPB IV ONE (01:10)
[2017-12-24] MEDS ORDERED: RINGERS SOLUTION,LACTATED 1,000 ML IV ONE ×3 (01:10→01:53)
--- NOTE | 2017-12-24 01:22 | ER Document Report ---
ED General - General Stated Complaint: RESPIRATORY PROBLEM Time Seen by Provider: 12/24/17 01:08 Cannot obtain history due to: Unstable vital signs, Altered mental status Notes: Patient is a 77-year-old female with a past history of COPD currently on 2 L of nasal cannula at all times who presents in respiratory distress. No additional history can be obtained secondary to the patient's degree of distress and her inability to communicate. TRAVEL OUTSIDE OF THE [place] IN LAST 30 DAYS: No - Related Data Allergies/Adverse Reactions: codeine [Codeine] Allergy (Unknown, Verified 12/24/17 01:23) erythromycin base [Erythromycin Base] Allergy (Unknown, Verified 12/24/17 01:23) Past Medical History - General Information source: Emergency Med Personnel Cannot obtain history due to: Unstable vital signs - Social History Smoking Status: Unknown if Ever Smoked Frequency of alcohol use: None Drug Abuse: None Lives with: Family Family History: CAD - This is in not immediate family members., DM, Hyperlipidemia, Hypertension - Past Medical History Cardiac Medical History: Reports: Hx Hypercholesterolemia, Hx Hypertension, Hx Pulmonary Embolism Pulmonary Medical History: Reports: Hx Asthma, Hx Bronchitis, Hx COPD, Hx Pneumonia, Hx Respiratory Failure, Hx Sleep Apnea Neurological Medical History: Denies: Hx Cerebrovascular Accident Endocrine Medical History: Denies: Hx Graves' Disease Renal/ Medical History: Reports: Hx Kidney Stones - 20 year ago. Denies: Hx Ovarian Cysts, Hx Peritoneal Dialysis, Hx Pelvic Inflammatory Disease Malignancy Medical History: GI Medical History: Reports: Hx Diverticulitis, Hx Gastroesophageal Reflux Disease, Hx Ulcer. Denies: Hx Irritable Bowel, Hx Liver Failure, Hx Pancreatitis Musculoskeletal Medical History: Reports Hx Arthritis, Denies Hx Multiple Sclerosis, Denies Hx Muscular Dystrophy Skin Medical History: Reports Hx MRSA Psychiatric Medical History: Reports: Hx Depression Denies: Hx Schizophrenia Traumatic Medical History: Denies: Hx Fractures Infectious Medical History: Past Surgical History: Reports: Hx Bowel Surgery - Old colostomy from a tear intestines resectioned, Hx Cardiac Surgery - pacemaker, Hx Colostomy - with reversal, 6 years ago, Hx Hysterectomy, Hx Orthopedic Surgery - left hip replacement 11/04/2014, Hx Pacemaker - Immunizations Immunizations up to date: Yes Hx Diphtheria, Pertussis, Tetanus Vaccination: Yes Hx Pneumococcal Vaccination: 06/04/11 Review of Systems - Review of Systems -: Yes ROS unobtainable due to patient's medical condition Physical Exam - Vital signs Vitals: Resp 34 H 12/24/17 01:07 Interpretation: Tachycardic, Tachypneic, Febrile Notes: PHYSICAL EXAMINATION: GENERAL: Very ill in appearance, in respiratory distress. HEAD: Atraumatic, normocephalic. EYES: Pupils equal round and reactive to light, extraocular movements intact, sclera anicteric, conjunctiva are normal. ENT: nares patent, oropharynx clear without exudates. Dry mucous membranes. NECK: Normal range of motion, supple without lymphadenopathy LUNGS: In severe respiratory distress. Breathing apparently 40 times per minute. Unable to speak secondary to her distress. Coarse breath sounds throughout, rhonchorous at the bases bilaterally. Faint expiratory wheezing throughout. HEART: Regular tachycardia without murmurs ABDOMEN: Soft, nontender, normoactive bowel sounds. No guarding, no rebound. No masses appreciated. EXTREMITIES: Normal range of motion, no pitting or edema. No cyanosis. NEUROLOGICAL: No focal neurological deficits. Moves all extremities spontaneously and on command. PSYCH: Unable to assess SKIN: Warm, Dry, normal turgor, no rashes or lesions noted. Course - Re-evaluation Re-evalutation: 12/24/17 01:12 Presentation a very ill-appearing 37-year-old female in acute respiratory distress. The patient is tachypneic breathing approximate 40 times per minute on the time of initial assessment. She is retracting in the supraclavicular intercostal spaces. Very poor air movement in all lung martínez. Initially satting 80% on 2 L by nasal cannula which she uses at baseline. She has coarse wheezing in all lung martínez. She has received multiple albuterol nebulizer prior to arrival in the emergency department as well as 125 mill grams of Solu- Medrol. Patient's blood pressure is too low to allow for infusion of magnesium at this point. The patient is noted to have a core temperature of 101.5 F at time of presentation. She does meet sepsis criteria based on tachycardia, hypotension, hypoxia and fever. She has been started on levofloxacin for presumptive diagnosis of pneumonia. Will continue in-line nebulizers. Patient was immediately placed on BiPAP at time of presentation. Will continue to reassess at regular intervals. 12/24/17 01:30 I have reassessed the patient. Her work of breathing has improved although she remains tachypneic on BiPAP. Heart rate remains elevated at 128 although this is an improvement from time of presentation. Patient remains moderately hypotensive. 2 L of lactated Ringer's are infusing. Patient remains very guarded condition and will require frequent and regular reassessments. 12/24/17 01:51 Patient's work of breathing continues to improve dramatically although her blood pressure does continue to soften. Pressures are coming down into the 80s systolic. Patient is receiving aggressive IV rehydration. We will start a 3rd liter. 12/24/17 02:23 Patient continues to have significant improvement in her work of breathing is now breathing approximately 25 times per minute, saturating 98% on 60% FiO2. Her tachycardia is also gradually improving currently heart rate is 112. The patient does continue to be hypotensive blood pressure of 80/42. The labs have begun to return showing findings consistent with an acute metabolic acidosis with both lactate elevation at 3.9 as well as associated acute renal failure with associated uremia. CBC pending. Chest x-ray read from radiology does confirm findings of a left sided diffuse pneumonia. Will continue to monitor and reassess the patient at regular intervals. However at this point the patient has received 2.5 L of fluid resuscitation and her map continues to persist below 65. We will therefore initiate norepinephrine through the patient 's port. 12/24/17 02:31 I have discussed goals of care with the patient. She does not currently warrant intubation but states that under dire circumstances she would consent to intubation. She states she would not want chest compression and is a DNR. 12/24/17 03:08 Patient's map has improved to 65 on 6 mcg/min of norepinephrine. Current blood pressure 94 and 51. I have discussed with Dr. Avendano who has accepted the patient for ICU admission. I have updated the patient and her family. - Vital Signs Vital signs: Temp Pulse Resp BP Pulse Ox 101.5 F H 31 H 86/42 L 100 12/24/17 01:10 12/24/17 01:50 12/24/17 01:46 12/24/17 01:50 - Laboratory Result Diagrams: 12/24/17 01:25 12/24/17 01:25 Laboratory results interpreted by me: 12/24/17 12/24/17 12/24/17 01:25 01:25 01:25 WBC 72.5 H* Hgb 10.5 L Hct 34.7 L MCH 25.1 L MCHC 30.1 L RDW 17.9 H Seg Neuts % (Manual) 81 H Band Neutrophils % 15 H Lymphocytes % (Manual) 3 L Monocytes % (Manual) 1 L Abs Neuts (Manual) 69.6 H VBG pH VBG HCO3 Carbon Dioxide 19 L BUN 53 H Creatinine 2.55 H Est GFR ( Amer) 22 L Est GFR (Non-Af Amer) 18 L Glucose 112 H Lactic Acid 3.9 H NT-Pro-B Natriuret Pep Albumin 3.2 L Urine Protein Urine Blood Ur Leukocyte Esterase 12/24/17 12/24/17 12/24/17 01:25 01:25 01:45 WBC Hgb Hct MCH MCHC RDW Seg Neuts % (Manual) Band Neutrophils % Lymphocytes % (Manual) Monocytes % (Manual) Abs Neuts (Manual) VBG pH 7.13 L* VBG HCO3 19.1 L Carbon Dioxide BUN Creatinine Est GFR ( Amer) Est GFR (Non-Af Amer) Glucose Lactic Acid NT-Pro-B Natriuret Pep 07758 H Albumin Urine Protein 100 H Urine Blood SMALL H Ur Leukocyte Esterase SMALL H - Diagnostic Test Radiology reviewed: Image reviewed, Reports reviewed Radiology results interpreted by me: 12/24/17 01:54 Chest x-ray: Significant infiltrate in the left upper and lower lobes apparent right lower lobe infiltrate Critical Care Note - Critical Care Note Total time excluding time spent on procedures (mins): 38 Comments: Critical care time spent obtaining history from patient or surrogate, discussions with consultants, development of treatment plan with patient or surrogate, evaluation of patient's response to treatment, examination of patient , ordering and performing treatments and interventions, ordering and review of laboratory studies, re-evaluation of patient's condition, ordering and review of radiographic studies and review of old charts Discharge - Discharge Clinical Impression: Septic shock, Severe sepsis, Metabolic acidosis, Respiratory distress, Bandemia Acute respiratory failure Qualifiers: Respiratory failure complication: hypoxia Qualified Code(s): J96.01 - Acute respiratory failure with hypoxia Pneumonia Qualifiers: Pneumonia type: due to unspecified organism Laterality: left Lung location: unspecified part of lung Qualified Code(s): J18.9 - Pneumonia, unspecified organism COPD (chronic obstructive pulmonary disease) Qualifiers: COPD type: unspecified COPD Qualified Code(s): J44.9 - Chronic obstructive pulmonary disease, unspecified Condition: Critical Disposition: ADMITTED INPATIENT Admitting Provider: [facility] Unit Admitted: ICU Referrals: SARITA CASTILLO MD [Primary Care Provider] - Follow up as needed
[2017-12-24 01:47] LABS: VENOUS BLOOD BASE EXCESS -10.3 mmol/L; VENOUS BLOOD HCO3 19.1 mmol/L (20-32); VENOUS BLOOD PCO2 58.7 mmHg (35-63)
[2017-12-24 01:49] LABS: VENOUS BLOOD PH 7.13 (7.30-7.42)
--- NOTE | 2017-12-24 01:54 | RADIOLOGY REPORT (SQ) ---
EXAM DESCRIPTION: XR CHEST 1 VIEW COMPLETED DATE/TME: 12/24/2017 01:09 CLINICAL HISTORY: 77 years, Female, sob, fever COMPARISON: 07/17/2017 chest x-ray NUMBER OF VIEWS: 1 TECHNIQUE: Frontal view the chest LIMITATIONS: None. FINDINGS: The heart size is normal. Left-sided pacing device noted. Atheromatous change thoracic aorta. Frqicm-l-Gepa catheter in place. No pneumothorax. Underlying emphysema. Extensive airspace opacity in the left perihilar region and left upper lobe. Minor fibrotic changes in the lung bases. IMPRESSION: Airspace opacity in the left perihilar region and left upper lobe which could reflect pneumonia. Recommend follow-up to ensure resolution. Underlying emphysema with minor fibrotic changes 2010 [employer]- All Rights Reserved
[2017-12-24 02:03] LABS: APPEARANCE,URINE CLOUDY; BILIRUBIN,URINE NEGATIVE (NEGATIVE); COLOR,URINE YELLOW; GLUCOSE, URINE NEGATIVE (NEGATIVE); KETONES,URINE NEGATIVE (NEGATIVE); LEUKOCYTE ESTERASE,URINE SMALL (NEGATIVE); NITRITE,URINE NEGATIVE (NEGATIVE); PROTEIN,URINE 100 mg/dL (NEGATIVE); URINE SPECIFIC GRAVITY 1.017; UROBILINOGEN,URINE NEGATIVE mg/dL (<2.0)
[2017-12-24 02:04] LABS: HEMATOCRIT 34.7 % (36.0-47.0); HEMOGLOBIN 10.5 g/dL (12.0-15.5); MEAN CORPUSCULAR HEMOGLOBIN 25.1 pg (27.0-33.4); MEAN CORPUSCULAR HGB CONC 30.1 g/dL (32.0-36.0); MEAN CORPUSCULAR VOLUME 83 fl (80-97); PLATELET COUNT 359 10^3/uL (150-450); RED BLOOD COUNT 4.16 10^6/uL (3.72-5.28); RED CELL DISTRIBUTION WIDTH 17.9 % (11.5-14.0)
[2017-12-24 02:07] LABS: ALANINE AMINOTRANSFERASE 18 U/L (9-52); ALBUMIN 3.2 g/dL (3.5-5.0); ALKALINE PHOSPHATASE 104 U/L (38-126); ANION GAP 19 (5-19); ASPARTATE AMINO TRANSFERASE 31 U/L (14-36); BILIRUBIN,DIRECT 0.2 mg/dL (0.0-0.4); BILIRUBIN,TOTAL 0.2 mg/dL (0.2-1.3); BLOOD UREA NITROGEN 53 mg/dL (7-20); CALCIUM 9.2 mg/dL (8.4-10.2); CARBON DIOXIDE 19 mmol/L (22-30); CHLORIDE 101 mmol/L (98-107); GLUCOSE 112 mg/dL (75-110); POTASSIUM 4.4 mmol/L (3.6-5.0); SODIUM 138.7 mmol/L (137-145); TOTAL PROTEIN 6.5 g/dL (6.3-8.2)
[2017-12-24 02:18] LABS: NT PRO BNP 18900 pg/mL (<450)
[2017-12-24 02:19] LABS: TROPONIN I < 0.012 ng/mL
[2017-12-24 02:22] LABS: ABSOLUTE LYMPHOCYTES# (MANUAL) 2.2 10^3/uL (0.5-4.7); ABSOLUTE MONOCYTES # (MANUAL) 0.7 10^3/uL (0.1-1.4); ABSOLUTE NEUTROPHILS# (MANUAL) 69.6 10^3/uL (1.7-8.2); BASOPHILS % (MANUAL) 0 % (0-2); EOSINOPHILS % (MANUAL) 0 % (0-6); LYMPHOCYTES % (MANUAL) 3 % (13-45); MONOCYTES % (MANUAL) 1 % (3-13); SEGMENTED NEUTROPHILS % (MAN) 81 % (42-78); TOTAL CELLS COUNTED 100
[2017-12-24 02:30] LABS: ANISOCYTOSIS 2+; BURR CELLS SLIGHT; PLATELET COMMENT ADEQUATE; POIKILOCYTOSIS SLIGHT; TOXIC VACUOLATION PRESENT
[2017-12-24 02:31] LABS: BAND NEUTROPHILS % (MANUAL) 15 % (3-5)
[2017-12-24 02:32] LABS: WHITE BLOOD COUNT 72.5 10^3/uL (4.0-10.5)
[2017-12-24] MEDS ORDERED: NOREPINEPHRINE BITARTRATE INJ/PF 4 MG/4 ML SDV IV ONE (02:32)
[2017-12-24] MEDS: DEXTROSE 5%-WATER 250 ML with NOREPINEPHRINE BITARTRATE 4 MG IV PRN ×6 (02:58→17:54)
[2017-12-24] MEDS ORDERED: DEXTROSE 5%-WATER 250 ML with NOREPINEPHRINE BITARTRATE 4 MG IV PRN ×2 (03:59)
[2017-12-24] MEDS ORDERED: VANCOMYCIN HCL 0 MG in DEXTROSE 5%-WATER 250 ML IV NR (04:00)
[2017-12-24] MEDS ORDERED: PIPERACILLIN/TAZOBACTAM 3.375 GM VIAL IV PRN (04:03)
[2017-12-24] MEDS ORDERED: PIPERACILLIN SODIUM/TAZOBACTAM 3.375 GM in NORMAL SALINE 100 ML IV ONE (04:15)
[2017-12-24 04:22] LABS: INTERNATIONAL RATION (INR) 1.66; PROTHROMBIN TIME 20.4 SEC (11.4-15.4)
[2017-12-24 04:23] LABS: PARTIAL THROMBOPLASTIN TIME 44.9 SEC (23.5-35.8)
[2017-12-24 04:28] LABS: AMYLASE 50 U/L (30-110)
[2017-12-24 04:29] LABS: LIPASE < 10.0 U/L (23-300)
[2017-12-24] MEDS ORDERED: VASOPRESSIN INJ 20 UNIT/1 ML VIAL ONE (04:34)
[2017-12-24] MEDS: IPRATROPIUM/ALBUTEROL 0.5-2.5 MG/3 ML AMPUL NEB SCH ×7 (04:44→22:49)
[2017-12-24] MEDS: NORMAL SALINE 1000 ML 1,000 ML IV PRN ×3 (04:45→17:55)
[2017-12-24 04:46] LABS: FREE T4 (FREE THYROXINE) 1.02 ng/dL (0.78-2.19)
[2017-12-24 04:55] LABS: URINE BARBITURATES SCREEN NEGATIVE; URINE COCAINE SCREEN NEGATIVE; URINE MARIJUANA (THC) SCREEN NEGATIVE; URINE METHADONE SCREEN NEGATIVE; URINE PHENCYCLIDINE SCREEN NEGATIVE
[2017-12-24 04:59] LABS: THYROID STIMULATING HORMONE 1.14 uIU/mL (0.47-4.68)
[2017-12-24] MEDS: DEXTROSE 5%-WATER 250 ML with VASOPRESSIN 100 UNIT IV PRN ×2 (05:00)
[2017-12-24 05:01] LABS: URINE AMPHETAMINES SCREEN NEGATIVE
[2017-12-24 05:05] LABS: URINE BENZODIAZEPINES SCREEN UNCONFIRMED POSITIVE
[2017-12-24 05:14] LABS: ARTERIAL BLOOD BASE EXCESS -10.9 mmol/L; ARTERIAL BLOOD H2CO3 1.71 mmol/L (1.05-1.35); ARTERIAL BLOOD HCO3 18.3 mmol/L (20-24); ARTERIAL BLOOD O2 SATURATION 92.1 % (94-98); ARTERIAL BLOOD PCO2 56.8 mmHg (35-45); ARTERIAL BLOOD PO2 82.6 mmHg (80-100)
[2017-12-24 05:15] LABS: ARTERIAL BLOOD FIO2 40%
[2017-12-24 05:16] LABS: ARTERIAL BLOOD PH 7.13 (7.35-7.45)
[2017-12-24 05:27] LABS: UR PRO/CREAT RATIO RESULT 0.4 mg/mg (0.0-0.2); URINE CREATININE 197.4 mg/dL (15-278); URINE PROTEIN 79.4 mg/dL (<12)
[2017-12-24] MEDS ORDERED: VANCOMYCIN HCL INJ 500 MG VIAL IV PRN (05:27)
[2017-12-24] MEDS ORDERED: SODIUM BICARBONATE 8.4% INJ 50 MEQ/50 ML DISP.SYRIN ONE (05:46)
[2017-12-24] MEDS ORDERED: SODIUM BICARBONATE 8.4% INJ 50 MEQ/50 ML DISP.SYRIN IV ONE (06:00)
[2017-12-24] MEDS ORDERED: VANCOMYCIN HCL 750 MG in DEXTROSE 5%-WATER 250 ML IV ONE (06:00)
[2017-12-24] MEDS ORDERED: VANCOMYCIN HCL INJ 1000 MG VIAL ONE (06:11)
[2017-12-24 08:48] LABS: CREATINE KINASE MB 7.37 ng/mL (<4.55)
[2017-12-24 08:56] LABS: TROPONIN I < 0.012 ng/mL
[2017-12-24] MEDS: PIPERACILLIN SODIUM/TAZOBACTAM 3.375 GM in NORMAL SALINE 100 ML IV SCH ×3 (09:11→20:00)
[2017-12-24] MEDS: ENOXAPARIN SODIUM INJ 30 MG/0.3 ML DISP.SYRIN SUBCUT SCH (09:11)
--- NOTE | 2017-12-24 09:56 | EKG REPORT ---
SEVERITY:- ABNORMAL ECG - SINUS TACHYCARDIA PROBABLE LEFT ATRIAL ABNORMALITY LEFT ANTERIOR FASCICULAR BLOCK ABNRM R PROG, CONSIDER ASMI OR LEAD PLACEMENT : Confirmed by: Mervat Mancuso 24-Dec-2017 09:55:24
--- NOTE | 2017-12-24 09:56 | EKG REPORT ---
SEVERITY:- BORDERLINE ECG - SINUS TACHYCARDIA LEFT AXIS DEVIATION BORDERLINE T WAVE ABNORMALITIES : Confirmed by: Mervat Mancuso 24-Dec-2017 09:55:11
[2017-12-24] MEDS ORDERED: VANCOMYCIN HCL 500 MG in DEXTROSE 5%-WATER 100 ML IV ONE (10:00)
[2017-12-24 10:23] LABS: ARTERIAL BLOOD BASE EXCESS -6.8 mmol/L; ARTERIAL BLOOD H2CO3 1.44 mmol/L (1.05-1.35); ARTERIAL BLOOD HCO3 20.3 mmol/L (20-24); ARTERIAL BLOOD O2 SATURATION 90.9 % (94-98); ARTERIAL BLOOD PCO2 47.9 mmHg (35-45); ARTERIAL BLOOD PH 7.25 (7.35-7.45); ARTERIAL BLOOD PO2 69.3 mmHg (80-100); ARTERIAL BLOOD TOTAL CO2 21.8 mmol/L (21-25)
[2017-12-24 10:25] LABS: ARTERIAL BLOOD FIO2 40%
[2017-12-24] MEDS: ACETYLCYSTEINE 20% SOLN 800 MG/4 ML VIAL.NEB NEB SCH ×2 (11:33→20:52)
[2017-12-24 12:03] LABS: HEMOGLOBIN 8.6 g/dL (12.0-15.5); MEAN CORPUSCULAR HEMOGLOBIN 25.1 pg (27.0-33.4); MEAN CORPUSCULAR HGB CONC 30.7 g/dL (32.0-36.0); MEAN CORPUSCULAR VOLUME 82 fl (80-97); PLATELET COUNT 307 10^3/uL (150-450); RED BLOOD COUNT 3.42 10^6/uL (3.72-5.28); RED CELL DISTRIBUTION WIDTH 18.1 % (11.5-14.0)
[2017-12-24 12:06] LABS: ALANINE AMINOTRANSFERASE 16 U/L (9-52); ALBUMIN 2.5 g/dL (3.5-5.0); ALKALINE PHOSPHATASE 73 U/L (38-126); ANION GAP 15 (5-19); ASPARTATE AMINO TRANSFERASE 35 U/L (14-36); BILIRUBIN,DIRECT 0.2 mg/dL (0.0-0.4); BILIRUBIN,TOTAL 0.2 mg/dL (0.2-1.3); BLOOD UREA NITROGEN 48 mg/dL (7-20); CALCIUM 8.6 mg/dL (8.4-10.2); CARBON DIOXIDE 20 mmol/L (22-30); CHLORIDE 100 mmol/L (98-107); GLUCOSE 185 mg/dL (75-110); PHOSPHORUS 5.5 mg/dL (2.5-4.5); POTASSIUM 4.5 mmol/L (3.6-5.0); SODIUM 134.8 mmol/L (137-145); TOTAL PROTEIN 5.3 g/dL (6.3-8.2)
[2017-12-24 12:11] LABS: WHITE BLOOD COUNT 60.3 10^3/uL (4.0-10.5)
[2017-12-24 12:24] LABS: ABSOLUTE MONOCYTES # (MANUAL) 0.6 10^3/uL (0.1-1.4); ABSOLUTE NEUTROPHILS# (MANUAL) 59.7 10^3/uL (1.7-8.2); BAND NEUTROPHILS % (MANUAL) 13 % (3-5); BASOPHILS % (MANUAL) 0 % (0-2); EOSINOPHILS % (MANUAL) 0 % (0-6); LYMPHOCYTES % (MANUAL) 0 % (13-45); MONOCYTES % (MANUAL) 1 % (3-13); SEGMENTED NEUTROPHILS % (MAN) 86 % (42-78); TOTAL CELLS COUNTED 100
[2017-12-24 12:26] LABS: ANISOCYTOSIS 2+; HYPOCHROMASIA 1+; PLATELET COMMENT ADEQUATE; POLYCHROMASIA SLIGHT; TOXIC GRANULATION SLIGHT; TOXIC VACUOLATION PRESENT
--- NOTE | 2017-12-24 12:33 | PDOC H&P ---
History of Present Illness Admission Date/PCP: 12/24/17 03:44 SARITA CASTILLO History of Present Illness: SUSAN BINGHAM is a 77 year old female, she has a history of very severe chronic obstructive pulmonary disease, patient of Dr. Castillo she came to the emergency room last night for evaluation of respiratory distress, in the emergency room she was evaluated she was found to be tachypneic breathing approximately about 40 times per minute there was severe retraction in the supraclavicular intercostal space. There was very poor air movement in all lung martínez initially oxygen saturation was 80% on 2 L nasal cannula. Before she arrived in the emergency room she was treated by EMS with bronchodilators albuterol as well as Solu-Medrol 125 mg. The core temperature was 101.5 the blood pressure was also low when she presented the emergency room, she was placed on noninvasive positive pressure ventilation BiPAP at the time of presentation. She was very hypotensive on presentation she was started on vasopressorwith norepinephrine. She is a DNR she does not want chest compression I received a call from the emergency room physician about this patient, we discussed the case, she was continue on noninvasive positive pressure ventilation BiPAP, she was continue on vasopresor patient's condition is very critical the hemogram revealed WBC of 72,000, the chest x-ray showed airspace opacity in the left perihilar region and left upper lobe patient is presenting with severe sepsis syndrome, she also have altered mental status, there is evidence of multiple got dysfunction including acute kidney injury, encephalopathy, pneumonia, I discussed all these findings with patient's family. Patient's daughter is the chief of discharge planning department. She is also very acidotic but is mainly respiratory, she has respiratory acidosis most likely secondary to pneumonia Past Medical History Cardiac Medical History: Reports: Hyperlipidema, Hypertension, Pulmonary Embolism Pulmonary Medical History: Reports: Asthma, Bronchitis, Chronic Obstructive Pulmonary Disease (COPD), Pneumonia, Respiratory Failure, Sleep Apnea Neurological Medical History: Endocrine Medical History: Renal/ Medical History: Malignancy Medical History: GI Medical History: Reports: Diverticulitis, Gastroesophageal Reflux Disease Musculoskeltal Medical History: Reports: Arthritis Psychiatric Medical History: Reports: Depression Hematology: Infectious Medical History: Past Surgical History Past Surgical History: Reports: Colostomy - with reversal, 6 years ago, Hysterectomy, Orthopedic Surgery - left hip replacement 11/04/2014, Pacemaker Social History Lives with: Family Smoking Status: Former Smoker Frequency of Alcohol Use: None Hx Recreational Drug Use: No Drugs: None Hx Prescription Drug Abuse: No - Advance Directive Resuscitation Status: Do Not Resuscitate Family History Family History: CAD - This is in not immediate family members., DM, Hyperlipidemia, Hypertension Parental Family History Reviewed: Yes Children Family History Reviewed: Yes Sibling(s) Family History Reviewed.: Yes Medication/Allergy Home Medications: Acetazolamide [Diamox 250 mg Tab] 250 mg PO BID 07/08/17 Albuterol Sulfate [Albuterol Sulfate 2.5mg/3 mL] 1 vial NEB DAILYP PRN 07/08/17 Buspirone HCl [Buspar 15 mg Tablet] 7.5 mg PO TID 07/08/17 Citalopram Hydrobromide [Celexa 40 mg Tablet] 40 mg PO DAILY 07/08/17 Montelukast Sodium [Singulair 10 mg Tablet] 10 mg PO DAILY 07/08/17 Oxycodone HCl/Acetaminophen [Percocet 7.5-325 mg Tablet] 1 tab PO Q8HP PRN 07/08 Ropinirole HCl [Requip] 1 mg PO TID 07/08/17 Zolpidem Tartrate [Ambien 5 mg Tablet] 5 mg PO HSP PRN 07/08/17 Alprazolam [Xanax 0.5 mg Tablet] 0.5 mg PO Q8 #60 tablet 07/20/17 Fluticasone/Umeclidin/Vilanter [Trelegy 100-62.5-25 Mcg Ellipta 14 Dose/Dpi] 1 each IH DAILY 12/24/17 Promethazine HCl [Phenergan 25 mg Tablet] 25 mg PO Q6HP PRN 12/24/17 Allergies/Adverse Reactions: codeine [Codeine] Allergy (Unknown, Verified 12/24/17 01:23) erythromycin base [Erythromycin Base] Allergy (Unknown, Verified 12/24/17 01:23) Review of Systems ROS unobtainable: Due to mental status Physical Exam Vital Signs: Temp Pulse Resp BP Pulse Ox 98.2 F 102 H 33 H 155/55 H 97 12/24/17 10:12 12/24/17 11:33 12/24/17 11:33 12/24/17 10:12 12/24/17 11:33 Intake & Output 12/23/17 12/24/17 12/25/17 06:59 06:59 06:59 Intake Total 335 104 Output Total 140 Balance 335 -36 Weight 57.7 kg General appearance: PRESENT: severe distress Respiratory exam: PRESENT: rhonchi, wheezes Cardiovascular exam: PRESENT: +S1, +S2 GI/Abdominal exam: PRESENT: soft Neurological exam: PRESENT: alert Results Laboratory Results: 12/24/17 12/24/17 12/24/17 04:50 05:23 09:57 Seg Neutrophils % Lymphocytes % Monocytes % Eosinophils % Basophils % Absolute Neutrophils Absolute Lymphocytes Absolute Monocytes Absolute Eosinophils Absolute Basophils Carbonic Acid 1.71 H 1.44 H HCO3/H2CO3 Ratio 10:1 14:1 ABG pH 7.13 L* 7.25 L ABG pCO2 56.8 H 47.9 H ABG pO2 82.6 69.3 L ABG HCO3 18.3 L 20.3 ABG O2 Saturation 92.1 L 90.9 L ABG Base Excess -10.9 -6.8 FiO2 40% 40% Lactic Acid 4.3 H 12/24/17 12/24/17 11:12 11:12 Seg Neutrophils % Not Reportable Lymphocytes % Not Reportable Monocytes % Not Reportable Eosinophils % Not Reportable Basophils % Not Reportable Absolute Neutrophils Not Reportable Absolute Lymphocytes Not Reportable Absolute Monocytes Not Reportable Absolute Eosinophils Not Reportable Absolute Basophils Not Reportable Carbonic Acid HCO3/H2CO3 Ratio ABG pH ABG pCO2 ABG pO2 ABG HCO3 ABG O2 Saturation ABG Base Excess FiO2 Lactic Acid 2.7 H 12/24/17 12/24/17 07:56 07:56 Creatine Kinase 228 H CK-MB (CK-2) 7.37 H Troponin I < 0.012 Impressions: Chest X-Ray 12/24/17 01:09 IMPRESSION: Airspace opacity in the left perihilar region and left upper lobe which could reflect pneumonia. Recommend follow-up to ensure resolution. Underlying emphysema with minor fibrotic changes 2010 [employer]- All Rights Reserved Assessment & Plan - Diagnosis (1) Septic shock Is this a current diagnosis for this admission?: Yes Plan: She has septic shock, secondary to pneumonia, start vancomycin and Zosyn (2) Acute respiratory acidosis Is this a current diagnosis for this admission?: Yes (3) Pneumonia Qualifiers: Pneumonia type: due to unspecified organism Laterality: left Lung location: upper lobe of lung Qualified Code(s): J18.1 - Lobar pneumonia, unspecified organism Is this a current diagnosis for this admission?: Yes (4) Leukemoid reaction Is this a current diagnosis for this admission?: Yes Plan: She has severe leukocytosis, WBC 72,000, this could be a leukemoid reaction secondary to severe sepsis but we need to rule out leukemia as well, flow cytometry is ordered (5) Acute kidney injury Is this a current diagnosis for this admission?: Yes Plan: This is most likely ATN from low blood pressure, presently nonoliguric hopefully she would not require CRRT - Time Time Spent: Greater than 70 Minutes
[2017-12-24 13:36] LABS: ARTERIAL BLOOD BASE EXCESS -5.2 mmol/L; ARTERIAL BLOOD H2CO3 1.43 mmol/L (1.05-1.35); ARTERIAL BLOOD HCO3 21.6 mmol/L (20-24); ARTERIAL BLOOD O2 SATURATION 92.3 % (94-98); ARTERIAL BLOOD PCO2 47.4 mmHg (35-45); ARTERIAL BLOOD PH 7.28 (7.35-7.45); ARTERIAL BLOOD PO2 71.7 mmHg (80-100)
[2017-12-24 13:42] LABS: ARTERIAL BLOOD FIO2 40%
[2017-12-24 14:34] LABS: TROPONIN I < 0.012 ng/mL
[2017-12-24] MEDS ORDERED: FUROSEMIDE INJ/PF 20 MG/2 ML SDV IV ONE (19:45)
[2017-12-24] MEDS: ROPINIROLE HCL 1 MG TABLET PO SCH (21:23)
[2017-12-24] MEDS ORDERED: ONDANSETRON HCL INJ/PF 4 MG/2 ML SDV ONE (23:50)
[2017-12-25 00:33] LABS: ARTERIAL BLOOD BASE EXCESS -3.5 mmol/L; ARTERIAL BLOOD H2CO3 1.41 mmol/L (1.05-1.35); ARTERIAL BLOOD HCO3 22.8 mmol/L (20-24); ARTERIAL BLOOD O2 SATURATION 95.3 % (94-98); ARTERIAL BLOOD PCO2 46.9 mmHg (35-45); ARTERIAL BLOOD PH 7.31 (7.35-7.45); ARTERIAL BLOOD PO2 84.1 mmHg (80-100); ARTERIAL BLOOD TOTAL CO2 24.3 mmol/L (21-25)
[2017-12-25 00:34] LABS: ARTERIAL BLOOD FIO2 40%
[2017-12-25] MEDS: IPRATROPIUM/ALBUTEROL 0.5-2.5 MG/3 ML AMPUL NEB SCH ×6 (02:41→20:14)
[2017-12-25] MEDS: PIPERACILLIN SODIUM/TAZOBACTAM 3.375 GM in NORMAL SALINE 100 ML IV SCH ×4 (03:08→22:12)
[2017-12-25] MEDS: NORMAL SALINE 1000 ML 1,000 ML IV PRN ×3 (03:09→21:18)
[2017-12-25] MEDS: DEXTROSE 5%-WATER 250 ML with VASOPRESSIN 100 UNIT IV PRN ×2 (04:04)
[2017-12-25 04:39] LABS: ABSOLUTE BASOPHILS # (AUTO) 0.2 10^3/uL (0.0-0.2); ABSOLUTE LYMPHOCYTES (AUTO) 2.5 10^3/uL (0.5-4.7); ABSOLUTE MONOCYTES (AUTO) 1.3 10^3/uL (0.1-1.4); BASOPHILS % (AUTO) 0.4 % (0-2); HEMATOCRIT 25.6 % (36.0-47.0); LYMPHOCYTES % (AUTO) 5.8 % (13-45); MEAN CORPUSCULAR HEMOGLOBIN 25.1 pg (27.0-33.4); MEAN CORPUSCULAR HGB CONC 31.3 g/dL (32.0-36.0); MEAN CORPUSCULAR VOLUME 80 fl (80-97); MONOCYTES % (AUTO) 2.9 % (3-13); PLATELET COUNT 293 10^3/uL (150-450); SEGMENTED NEUTROPHILS % (AUTO) 90.9 % (42-78); TOTAL CELLS COUNTED % (AUTO) 100 %
[2017-12-25 04:43] LABS: ALANINE AMINOTRANSFERASE 19 U/L (9-52); ALBUMIN 2.4 g/dL (3.5-5.0); ALKALINE PHOSPHATASE 63 U/L (38-126); ANION GAP 9 (5-19); ASPARTATE AMINO TRANSFERASE 39 U/L (14-36); BILIRUBIN,DIRECT 0.3 mg/dL (0.0-0.4); BILIRUBIN,TOTAL 0.3 mg/dL (0.2-1.3); BLOOD UREA NITROGEN 46 mg/dL (7-20); CALCIUM 8.4 mg/dL (8.4-10.2); CARBON DIOXIDE 23 mmol/L (22-30); CHLORIDE 104 mmol/L (98-107); GLUCOSE 132 mg/dL (75-110); PHOSPHORUS 4.4 mg/dL (2.5-4.5); POTASSIUM 4.3 mmol/L (3.6-5.0); SODIUM 136.3 mmol/L (137-145); TOTAL PROTEIN 5.1 g/dL (6.3-8.2)
[2017-12-25 04:48] LABS: WHITE BLOOD COUNT 44.1 10^3/uL (4.0-10.5)
[2017-12-25] MEDS: LACTOBACILLUS ACIDOPHILUS 250 MG TAB PO SCH ×2 (05:21→17:44)
[2017-12-25] MEDS: ROPINIROLE HCL 1 MG TABLET PO SCH ×3 (05:21→22:12)
[2017-12-25] MEDS: LANSOPRAZOLE 15 MG TAB.RAP.DR PO SCH (05:21)
[2017-12-25 05:24] LABS: ARTERIAL BLOOD BASE EXCESS -2.2 mmol/L; ARTERIAL BLOOD H2CO3 1.47 mmol/L (1.05-1.35); ARTERIAL BLOOD O2 SATURATION 95.9 % (94-98); ARTERIAL BLOOD PCO2 48.7 mmHg (35-45); ARTERIAL BLOOD PH 7.31 (7.35-7.45); ARTERIAL BLOOD PO2 88.2 mmHg (80-100); ARTERIAL BLOOD TOTAL CO2 25.5 mmol/L (21-25)
[2017-12-25 05:25] LABS: ARTERIAL BLOOD FIO2 45%
[2017-12-25] MEDS: ONDANSETRON HCL INJ/PF 4 MG/2 ML SDV IV PRN ×3 (06:08→19:26)
--- NOTE | 2017-12-25 06:20 | RADIOLOGY REPORT (SQ) ---
EXAM DESCRIPTION: XR CHEST 1 VIEW COMPLETED DATE/TME: 12/25/2017 06:00 CLINICAL HISTORY: 77 years, Female, pna/resp failure COMPARISON: 12/24/2017 chest x-ray NUMBER OF VIEWS: 1 TECHNIQUE: Frontal view the chest LIMITATIONS: None. FINDINGS: Heart size is stable. Left-sided pacing device. Persistent left perihilar and left basilar airspace opacities. Underlying emphysema. Jcatix-w-Iegy catheter in place. No pneumothorax. Nodular opacities in the left upper lobe are also present. There is a new right perihilar nodular opacity. Blunting of the costophrenic angles consistent with tiny effusions and/or pleural thickening. IMPRESSION: Persistent airspace opacities throughout the left hemithorax. New right perihilar opacity. Small bibasilar effusions and/or pleural thickening. Underlying emphysema. 2010 [employer]- All Rights Reserved
[2017-12-25] MEDS: ACETYLCYSTEINE 20% SOLN 800 MG/4 ML VIAL.NEB NEB SCH ×2 (08:23→20:14)
[2017-12-25] MEDS: ENOXAPARIN SODIUM INJ 30 MG/0.3 ML DISP.SYRIN SUBCUT SCH (09:52)
--- NOTE | 2017-12-25 10:39 | EKG REPORT ---
SEVERITY:- OTHERWISE NORMAL ECG - SINUS RHYTHM BORDERLINE LEFT AXIS DEVIATION : Confirmed by: Mervat Mancuso 25-Dec-2017 10:38:33
--- NOTE | 2017-12-25 11:49 | PDOC PROGRESS REPORT ---
Subjective Progress Note for:: 12/25/17 Subjective:: Patient seen by the bedside she is alert responsive she continues to require noninvasive positive pressure ventilation BiPAP, the blood culture is growing gram-positive cocci in chain, Streptococcus she has dense left lower lobe pneumonia Reason For Visit: SEPSIS,LEUKEMOID REACTION,LEUKEMIA/LYMPHOMA, Physical Exam Vital Signs: Temp Pulse Resp BP Pulse Ox 98.8 F 88 21 H 116/61 98 12/25/17 07:41 12/25/17 08:23 12/25/17 10:00 12/25/17 09:59 12/25/17 10:00 Intake & Output 12/24/17 12/25/17 12/26/17 06:59 06:59 06:59 Intake Total 335 3268 100 Output Total 2120 285 Balance 335 1148 -185 Weight 57.7 kg 59.9 kg General appearance: PRESENT: severe distress Eye exam: PRESENT: PERRLA Respiratory exam: PRESENT: rhonchi Cardiovascular exam: PRESENT: +S1, +S2 GI/Abdominal exam: PRESENT: soft - Okay Neurological exam: PRESENT: alert Results Laboratory Results: 12/25/17 04:22 12/25/17 04:22 12/24/17 12/24/17 12/24/17 11:12 11:12 11:12 WBC 60.3 H* RBC 3.42 L Hgb 8.6 L Hct 28.0 L MCV 82 MCH 25.1 L MCHC 30.7 L RDW 18.1 H Plt Count 307 Seg Neutrophils % Not Reportable Lymphocytes % Not Reportable Monocytes % Not Reportable Eosinophils % Not Reportable Basophils % Not Reportable Absolute Neutrophils Not Reportable Absolute Lymphocytes Not Reportable Absolute Monocytes Not Reportable Absolute Eosinophils Not Reportable Absolute Basophils Not Reportable Carbonic Acid HCO3/H2CO3 Ratio ABG pH ABG pCO2 ABG pO2 ABG HCO3 ABG O2 Saturation ABG Base Excess FiO2 Sodium 134.8 L Potassium 4.5 Chloride 100 Carbon Dioxide 20 L Anion Gap 15 BUN 48 H Creatinine 1.85 H Est GFR ( Amer) 32 L Est GFR (Non-Af Amer) 27 L Glucose 185 H Lactic Acid 2.7 H Calcium 8.6 Phosphorus 5.5 H Magnesium 1.9 Total Bilirubin 0.2 AST 35 ALT 16 Alkaline Phosphatase 73 Total Protein 5.3 L Albumin 2.5 L Stool for White Cells 11/12/24/17 12/25/17 13:25 20:50 00:20 WBC RBC Hgb Hct MCV MCH MCHC RDW Plt Count Seg Neutrophils % Lymphocytes % Monocytes % Eosinophils % Basophils % Absolute Neutrophils Absolute Lymphocytes Absolute Monocytes Absolute Eosinophils Absolute Basophils Carbonic Acid 1.43 H 1.41 H HCO3/H2CO3 Ratio 15:1 16:1 ABG pH 7.28 L 7.31 L ABG pCO2 47.4 H 46.9 H ABG pO2 71.7 L 84.1 ABG HCO3 21.6 22.8 ABG O2 Saturation 92.3 L 95.3 ABG Base Excess -5.2 -3.5 FiO2 40% 40% Sodium Potassium Chloride Carbon Dioxide Anion Gap BUN Creatinine Est GFR ( Amer) Est GFR (Non-Af Amer) Glucose Lactic Acid Calcium Phosphorus Magnesium Total Bilirubin AST ALT Alkaline Phosphatase Total Protein Albumin Stool for White Cells NO WBCs SEEN 12/25/17 12/25/17 12/25/17 04:22 04:22 04:22 WBC RBC Hgb Hct MCV MCH MCHC RDW Plt Count Seg Neutrophils % Lymphocytes % Monocytes % Eosinophils % Basophils % Absolute Neutrophils Absolute Lymphocytes Absolute Monocytes Absolute Eosinophils Absolute Basophils Carbonic Acid HCO3/H2CO3 Ratio ABG pH ABG pCO2 ABG pO2 ABG HCO3 ABG O2 Saturation ABG Base Excess FiO2 Sodium 136.3 L Potassium 4.3 Chloride 104 Carbon Dioxide 23 Anion Gap 9 BUN 46 H Creatinine 1.73 H Est GFR ( Amer) 35 L Est GFR (Non-Af Amer) 29 L Glucose 132 H Lactic Acid 1.3 Calcium 8.4 Phosphorus 4.4 Magnesium 2.1 Total Bilirubin 0.3 AST 39 H ALT 19 Alkaline Phosphatase 63 Total Protein 5.1 L Albumin 2.4 L Stool for White Cells 12/25/17 12/25/17 04:22 05:10 WBC 44.1 H* RBC 3.20 L Hgb 8.0 L Hct 25.6 L MCV 80 MCH 25.1 L MCHC 31.3 L RDW 18.0 H Plt Count 293 Seg Neutrophils % 90.9 H Lymphocytes % 5.8 L Monocytes % 2.9 L Eosinophils % 0.0 Basophils % 0.4 Absolute Neutrophils 40.0 H Absolute Lymphocytes 2.5 Absolute Monocytes 1.3 Absolute Eosinophils 0.0 Absolute Basophils 0.2 Carbonic Acid 1.47 H HCO3/H2CO3 Ratio 16:1 ABG pH 7.31 L ABG pCO2 48.7 H ABG pO2 88.2 ABG HCO3 24.0 ABG O2 Saturation 95.9 ABG Base Excess -2.2 FiO2 45% Sodium Potassium Chloride Carbon Dioxide Anion Gap BUN Creatinine Est GFR ( Amer) Est GFR (Non-Af Amer) Glucose Lactic Acid Calcium Phosphorus Magnesium Total Bilirubin AST ALT Alkaline Phosphatase Total Protein Albumin Stool for White Cells 12/24/17 12/24/17 12/24/17 07:56 07:56 13:50 Creatine Kinase 228 H 151 H CK-MB (CK-2) 7.37 H Troponin I < 0.012 12/24/17 13:50 Creatine Kinase CK-MB (CK-2) 6.20 H Troponin I < 0.012 Impressions: Chest X-Ray 12/25/17 06:00 IMPRESSION: Persistent airspace opacities throughout the left hemithorax. New right perihilar opacity. Small bibasilar effusions and/or pleural thickening. Underlying emphysema. 2010 [employer]- All Rights Reserved Assessment & Plan - Diagnosis (1) Septic shock Is this a current diagnosis for this admission?: Yes Plan: She is still on IV norepinephrine, vasopressin (2) Acute respiratory acidosis Is this a current diagnosis for this admission?: Yes Plan: She continues to require noninvasive positive pressure ventilation (3) Pneumonia Qualifiers: Pneumonia type: due to unspecified organism Laterality: left Lung location: lower lobe of lung Qualified Code(s): J18.1 - Lobar pneumonia, unspecified organism Is this a current diagnosis for this admission?: Yes (4) Leukemoid reaction Is this a current diagnosis for this admission?: Yes (5) Acute kidney injury Is this a current diagnosis for this admission?: Yes Plan: Kidney function improving - Plan Summary Plan Summary: Patient condition still critical, start nutrition
[2017-12-25 14:24] LABS: ARTERIAL BLOOD BASE EXCESS -5.6 mmol/L; ARTERIAL BLOOD H2CO3 1.22 mmol/L (1.05-1.35); ARTERIAL BLOOD HCO3 20.1 mmol/L (20-24); ARTERIAL BLOOD O2 SATURATION 97.1 % (94-98); ARTERIAL BLOOD PCO2 40.4 mmHg (35-45); ARTERIAL BLOOD PH 7.32 (7.35-7.45); ARTERIAL BLOOD PO2 99.9 mmHg (80-100); ARTERIAL BLOOD TOTAL CO2 21.4 mmol/L (21-25)
[2017-12-25 14:25] LABS: ARTERIAL BLOOD FIO2 40%
[2017-12-25] MEDS ORDERED: FUROSEMIDE INJ/PF 20 MG/2 ML SDV ONE (15:42)
[2017-12-25] MEDS ORDERED: FUROSEMIDE INJ/PF 20 MG/2 ML SDV IV SCH (16:00)
[2017-12-25] MEDS: ACETAMINOPHEN 325 MG TABLET PO PRN (17:43)
[2017-12-25] MEDS ORDERED: GUAIFENESIN/CODEINE PHOS 100-10 MG/ 5 ML UDC PO PRN (21:47)
[2017-12-25] MEDS ORDERED: GUAIFENESIN SYRP 200 MG/10 ML UDC PO PRN (22:00)
[2017-12-25] MEDS: OXYCODONE HCL IR 5 MG TABLET PO PRN (22:14)
[2017-12-25] MEDS: OXYCODONE-ACETAMINOPHEN 5-325 MG TABLET PO PRN (22:14)
[2017-12-26] MEDS: IPRATROPIUM/ALBUTEROL 0.5-2.5 MG/3 ML AMPUL NEB SCH ×4 (02:09→20:10)
[2017-12-26 04:06] LABS: HEMATOCRIT 25.1 % (36.0-47.0); MEAN CORPUSCULAR HEMOGLOBIN 25.3 pg (27.0-33.4); MEAN CORPUSCULAR HGB CONC 31.4 g/dL (32.0-36.0); MEAN CORPUSCULAR VOLUME 81 fl (80-97); PLATELET COUNT 285 10^3/uL (150-450); RED BLOOD COUNT 3.12 10^6/uL (3.72-5.28); WHITE BLOOD COUNT 23.2 10^3/uL (4.0-10.5)
[2017-12-26 04:18] LABS: ALANINE AMINOTRANSFERASE 22 U/L (9-52); ALBUMIN 2.3 g/dL (3.5-5.0); ALKALINE PHOSPHATASE 54 U/L (38-126); ANION GAP 12 (5-19); ASPARTATE AMINO TRANSFERASE 30 U/L (14-36); BILIRUBIN,DIRECT 0.2 mg/dL (0.0-0.4); BILIRUBIN,TOTAL 0.2 mg/dL (0.2-1.3); BLOOD UREA NITROGEN 43 mg/dL (7-20); CALCIUM 8.3 mg/dL (8.4-10.2); CARBON DIOXIDE 22 mmol/L (22-30); CHLORIDE 107 mmol/L (98-107); GLUCOSE 74 mg/dL (75-110); POTASSIUM 3.9 mmol/L (3.6-5.0); SODIUM 140.8 mmol/L (137-145)
[2017-12-26 04:22] LABS: ABSOLUTE LYMPHOCYTES# (MANUAL) 1.9 10^3/uL (0.5-4.7); ABSOLUTE MONOCYTES # (MANUAL) 0.7 10^3/uL (0.1-1.4); ABSOLUTE NEUTROPHILS# (MANUAL) 20.6 10^3/uL (1.7-8.2); BASOPHILS % (MANUAL) 0 % (0-2); EOSINOPHILS % (MANUAL) 0 % (0-6); LYMPHOCYTES % (MANUAL) 8 % (13-45); MONOCYTES % (MANUAL) 3 % (3-13); NUCLEATED RED BLOOD CELLS 2 /100 WBC (0); SEGMENTED NEUTROPHILS % (MAN) 89 % (42-78); TOTAL CELLS COUNTED 100
[2017-12-26 04:24] LABS: ANISOCYTOSIS 2+; BURR CELLS 1+; PLATELET COMMENT ADEQUATE; POLYCHROMASIA 1+
[2017-12-26] MEDS: PIPERACILLIN SODIUM/TAZOBACTAM 3.375 GM in NORMAL SALINE 100 ML IV SCH ×4 (04:29→21:55)
[2017-12-26 04:35] LABS: HEMOGLOBIN 7.9 g/dL (12.0-15.5)
[2017-12-26] MEDS: LACTOBACILLUS ACIDOPHILUS 250 MG TAB PO SCH ×2 (05:42→17:19)
[2017-12-26] MEDS: ROPINIROLE HCL 1 MG TABLET PO SCH ×3 (05:42→21:54)
[2017-12-26] MEDS: LANSOPRAZOLE 15 MG TAB.RAP.DR PO SCH (05:42)
[2017-12-26] MEDS: OXYCODONE-ACETAMINOPHEN 5-325 MG TABLET PO PRN ×2 (05:59→16:20)
[2017-12-26] MEDS: OXYCODONE HCL IR 5 MG TABLET PO PRN ×2 (05:59→16:19)
[2017-12-26 06:10] LABS: ARTERIAL BLOOD BASE EXCESS -1.4 mmol/L; ARTERIAL BLOOD H2CO3 1.71 mmol/L (1.05-1.35); ARTERIAL BLOOD HCO3 25.7 mmol/L (20-24); ARTERIAL BLOOD O2 SATURATION 92.6 % (94-98); ARTERIAL BLOOD PCO2 56.8 mmHg (35-45); ARTERIAL BLOOD PH 7.27 (7.35-7.45); ARTERIAL BLOOD PO2 73.6 mmHg (80-100); ARTERIAL BLOOD TOTAL CO2 27.5 mmol/L (21-25)
[2017-12-26 06:11] LABS: ARTERIAL BLOOD FIO2 50%
--- NOTE | 2017-12-26 06:30 | RADIOLOGY REPORT (SQ) ---
EXAM DESCRIPTION: XR CHEST 1 VIEW COMPLETED DATE/TME: 12/26/2017 06:00 CLINICAL HISTORY: 77 years, Female, pna/septic shock COMPARISON: 12/25/2017 chest x-ray NUMBER OF VIEWS: 1 TECHNIQUE: Frontal view the chest LIMITATIONS: None. FINDINGS: Heart size is grossly stable. Atheromatous change thoracic aorta. Pacing device and [id number] catheter in place. Underlying emphysema. Osteopenia. No pneumothorax. Interval worsening of airspace opacities of the left lung base. Minimal blunting right costophrenic angle consistent with tiny right effusion. IMPRESSION: Worsening of airspace opacities of the left hemithorax. Other findings are grossly stable 2010 [employer] [facility] [employer]- All Rights Reserved
--- NOTE | 2017-12-26 08:09 | PDOC PROGRESS REPORT ---
Subjective Progress Note for:: 12/26/17 Subjective:: Patient reported that her breathing is getting better. There is persistence of coughing with sputum production. There is generalized body aches and pain, nausea and near vomiting. She remain on BiPAP support. Reason For Visit: SEPSIS,LEUKEMOID REACTION,LEUKEMIA/LYMPHOMA, Physical Exam Vital Signs: Temp Pulse Resp BP Pulse Ox 97.2 F 92 17 89/48 L 99 12/26/17 05:18 12/26/17 02:10 12/26/17 05:29 12/26/17 05:29 12/26/17 05:29 Intake & Output 12/25/17 12/26/17 12/27/17 06:59 06:59 06:59 Intake Total 3268 3217 Output Total 2120 2710 Balance 1148 507 Weight 59.9 kg 61.7 kg General appearance: PRESENT: mild distress - on BiPAP support, thin Head exam: PRESENT: atraumatic, normocephalic Eye exam: PRESENT: conjunctiva pink, EOMI, PERRLA. ABSENT: scleral icterus Ear exam: PRESENT: normal external ear exam Mouth exam: PRESENT: moist Respiratory exam: PRESENT: crackles - scattered bilaterally, decreased breath sounds - bilaterally Cardiovascular exam: PRESENT: RRR. ABSENT: diastolic murmur, rubs, systolic murmur Vascular exam: PRESENT: normal capillary refill. ABSENT: pallor GI/Abdominal exam: PRESENT: normal bowel sounds, soft. ABSENT: distended, guarding, mass, organolmegaly, rebound, tenderness Extremities exam: ABSENT: pedal edema Musculoskeletal exam: PRESENT: ambulatory - related to multiple joints involverment with arthritis Neurological exam: PRESENT: alert - [id number], awake, oriented to person, oriented to place, oriented to time, oriented to situation, CN II-XII grossly intact. ABSENT: motor sensory deficit Psychiatric exam: PRESENT: appropriate affect, normal mood. ABSENT: homicidal ideation, suicidal ideation Skin exam: PRESENT: dry, intact, warm. ABSENT: cyanosis, rash Results Laboratory Results: 12/26/17 03:55 12/26/17 03:55 12/25/17 12/26/17 12/26/17 14:13 03:55 03:55 WBC 23.2 H RBC 3.12 L Hgb 7.9 L Hct 25.1 L MCV 81 MCH 25.3 L MCHC 31.4 L RDW 18.0 H Plt Count 285 Seg Neutrophils % Not Reportable Lymphocytes % Not Reportable Monocytes % Not Reportable Eosinophils % Not Reportable Basophils % Not Reportable Absolute Neutrophils Not Reportable Absolute Lymphocytes Not Reportable Absolute Monocytes Not Reportable Absolute Eosinophils Not Reportable Absolute Basophils Not Reportable Carbonic Acid 1.22 HCO3/H2CO3 Ratio 16:1 ABG pH 7.32 L ABG pCO2 40.4 ABG pO2 99.9 ABG HCO3 20.1 ABG O2 Saturation 97.1 ABG Base Excess -5.6 FiO2 40% Sodium 140.8 Potassium 3.9 Chloride 107 Carbon Dioxide 22 Anion Gap 12 BUN 43 H Creatinine 1.49 H Est GFR ( Amer) 41 L Est GFR (Non-Af Amer) 34 L Glucose 74 L Calcium 8.3 L Magnesium 2.1 Total Bilirubin 0.2 AST 30 ALT 22 Alkaline Phosphatase 54 Total Protein 5.0 L Albumin 2.3 L 12/26/17 05:50 WBC RBC Hgb Hct MCV MCH MCHC RDW Plt Count Seg Neutrophils % Lymphocytes % Monocytes % Eosinophils % Basophils % Absolute Neutrophils Absolute Lymphocytes Absolute Monocytes Absolute Eosinophils Absolute Basophils Carbonic Acid 1.71 H HCO3/H2CO3 Ratio 15:1 ABG pH 7.27 L ABG pCO2 56.8 H ABG pO2 73.6 L ABG HCO3 25.7 H ABG O2 Saturation 92.6 L ABG Base Excess -1.4 FiO2 50% Sodium Potassium Chloride Carbon Dioxide Anion Gap BUN Creatinine Est GFR ( Amer) Est GFR (Non-Af Amer) Glucose Calcium Magnesium Total Bilirubin AST ALT Alkaline Phosphatase Total Protein Albumin 12/24/17 12/24/17 12/24/17 07:56 07:56 13:50 Creatine Kinase 228 H 151 H CK-MB (CK-2) 7.37 H Troponin I < 0.012 12/24/17 13:50 Creatine Kinase CK-MB (CK-2) 6.20 H Troponin I < 0.012 Impressions: Chest X-Ray 12/26/17 06:00 IMPRESSION: Worsening of airspace opacities of the left hemithorax. Other findings are grossly stable 2010 [employer]- All Rights Reserved Assessment & Plan - Diagnosis (1) Lobar pneumonia, unspecified organism Is this a current diagnosis for this admission?: Yes Plan: Continue IV Vancomycin and Zosyn coverage. Follow up on blood culture findings. (2) Chronic respiratory failure with hypoxia and hypercapnia Is this a current diagnosis for this admission?: Yes Plan: Continue BiPAP support management. (3) History of pulmonary embolus (PE) Is this a current diagnosis for this admission?: Yes Plan: Maintain on her preadmission medication management. (4) H/O cardiac pacemaker Is this a current diagnosis for this admission?: Yes Plan: Continue with cardiac monitoring and support management. - Time Time Spent with patient: 25-34 minutes Medications reviewed and adjusted accordingly: Yes Anticipated discharge: Home with Homehealth Within: Other - Inpatient Certification Based on my medical assessment, after consideration of the patient's comorbidities, presenting symptoms, or acuity I expect that the services needed warrant INPATIENT care.: Yes I certify that my determination is in accordance with my understanding of Medicare's requirements for reasonable and necessary INPATIENT services [42 CFR 412.3e].: Yes Medical Necessity: Need Close Monitoring Due to Risk of Patient Decompensation, Need For IV Fluids, Need For Continuous Telemetry Monitoring, Need for Nebulizer Therapy and Monitoring of Response, Need for IV Antibiotics, Risk of Complication if Not Cared For in Hospital Post 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 Start on bedside usage of flutter device and incentive spirometer to aide pulmonary toileting.
[2017-12-26] MEDS: ACETYLCYSTEINE 20% SOLN 800 MG/4 ML VIAL.NEB NEB SCH ×2 (08:23→20:10)
[2017-12-26] MEDS: NORMAL SALINE 1000 ML 1,000 ML IV PRN ×2 (09:34→23:54)
[2017-12-26] MEDS ORDERED: (PENDING PHARMACY ID) (Buspirone Hcl [Buspar 15 Mg Tablet] 7.5 MG) PO SCH (10:00)
[2017-12-26] MEDS ORDERED: VANCOMYCIN HCL 1,000 MG in DEXTROSE 5%-WATER 250 ML IV SCH (10:00)
[2017-12-26] MEDS ORDERED: (PENDING PHARMACY ID) (Citalopram Hydrobromide [Celexa 40 Mg Tablet] 40 MG) PO SCH (10:00)
[2017-12-26] MEDS: ACETAZOLAMIDE 250 MG TABLET PO SCH ×2 (10:17→17:19)
[2017-12-26] MEDS: MONTELUKAST SODIUM 10 MG TABLET PO SCH (10:17)
[2017-12-26] MEDS: ENOXAPARIN SODIUM INJ 30 MG/0.3 ML DISP.SYRIN SUBCUT SCH (10:17)
[2017-12-26] MEDS: CITALOPRAM HYDROBROMIDE 20 MG TABLET PO SCH (10:17)
[2017-12-26] MEDS: BUSPIRONE HCL 10 MG TABLET PO SCH ×2 (14:10→21:53)
[2017-12-26] MEDS: ALPRAZOLAM 0.5 MG TABLET PO SCH ×2 (14:10→21:53)
[2017-12-26 16:04] LABS: PATH REVIEW PATHOLOGIST REVIEWED
[2017-12-27] MEDS: OXYCODONE-ACETAMINOPHEN 5-325 MG TABLET PO PRN ×2 (00:35→22:05)
[2017-12-27] MEDS: IPRATROPIUM/ALBUTEROL 0.5-2.5 MG/3 ML AMPUL NEB SCH ×4 (02:02→20:42)
[2017-12-27] MEDS: PIPERACILLIN SODIUM/TAZOBACTAM 3.375 GM in NORMAL SALINE 100 ML IV SCH ×4 (02:38→22:04)
[2017-12-27 04:23] LABS: MEAN CORPUSCULAR HGB CONC 30.1 g/dL (32.0-36.0); MEAN CORPUSCULAR VOLUME 83 fl (80-97); PLATELET COUNT 307 10^3/uL (150-450); RED BLOOD COUNT 3.61 10^6/uL (3.72-5.28); RED CELL DISTRIBUTION WIDTH 18.1 % (11.5-14.0); WHITE BLOOD COUNT 16.1 10^3/uL (4.0-10.5)
[2017-12-27 04:43] LABS: ALANINE AMINOTRANSFERASE 20 U/L (9-52); ALBUMIN 2.5 g/dL (3.5-5.0); ALKALINE PHOSPHATASE 62 U/L (38-126); ANION GAP 9 (5-19); ASPARTATE AMINO TRANSFERASE 24 U/L (14-36); BILIRUBIN,DIRECT 0.3 mg/dL (0.0-0.4); BILIRUBIN,TOTAL 0.3 mg/dL (0.2-1.3); BLOOD UREA NITROGEN 30 mg/dL (7-20); CALCIUM 8.3 mg/dL (8.4-10.2); CARBON DIOXIDE 25 mmol/L (22-30); CHLORIDE 110 mmol/L (98-107); GLUCOSE 62 mg/dL (75-110); POTASSIUM 3.9 mmol/L (3.6-5.0); SODIUM 143.9 mmol/L (137-145); TOTAL PROTEIN 5.4 g/dL (6.3-8.2)
[2017-12-27 04:51] LABS: ABSOLUTE LYMPHOCYTES# (MANUAL) 2.3 10^3/uL (0.5-4.7); ABSOLUTE NEUTROPHILS# (MANUAL) 12.9 10^3/uL (1.7-8.2); BASOPHILS % (MANUAL) 0 % (0-2); EOSINOPHILS % (MANUAL) 0 % (0-6); LYMPHOCYTES % (MANUAL) 14 % (13-45); MONOCYTES % (MANUAL) 6 % (3-13); NUCLEATED RED BLOOD CELLS 1 /100 WBC (0); SEGMENTED NEUTROPHILS % (MAN) 80 % (42-78); TOTAL CELLS COUNTED 100
[2017-12-27 04:52] LABS: TOXIC GRANULATION 1+; TOXIC VACUOLATION PRESENT
[2017-12-27 04:53] LABS: ANISOCYTOSIS 2+; BURR CELLS 2+; HELMET CELLS SLIGHT; OVALOCYTES 2+
[2017-12-27 04:54] LABS: TEAR DROP CELLS 1+
[2017-12-27 04:55] LABS: PLATELET COMMENT ADEQUATE; POIKILOCYTOSIS 3+
[2017-12-27] MEDS: BUSPIRONE HCL 10 MG TABLET PO SCH (05:12)
[2017-12-27] MEDS: LACTOBACILLUS ACIDOPHILUS 250 MG TAB PO SCH ×2 (05:12→18:28)
[2017-12-27] MEDS: ROPINIROLE HCL 1 MG TABLET PO SCH (05:12)
[2017-12-27] MEDS: LANSOPRAZOLE 15 MG TAB.RAP.DR PO SCH (05:12)
[2017-12-27] MEDS: ALPRAZOLAM 0.5 MG TABLET PO SCH (05:13)
[2017-12-27 05:52] LABS: ARTERIAL BLOOD BASE EXCESS -6.3 mmol/L; ARTERIAL BLOOD H2CO3 1.83 mmol/L (1.05-1.35); ARTERIAL BLOOD HCO3 22.5 mmol/L (20-24); ARTERIAL BLOOD PCO2 60.9 mmHg (35-45); ARTERIAL BLOOD PO2 92.5 mmHg (80-100); ARTERIAL BLOOD TOTAL CO2 24.3 mmol/L (21-25)
[2017-12-27 05:53] LABS: ARTERIAL BLOOD FIO2 40%; ARTERIAL BLOOD PH 7.19 (7.35-7.45)
--- NOTE | 2017-12-27 07:09 | RADIOLOGY REPORT (SQ) ---
EXAM DESCRIPTION: XR CHEST 1 VIEW COMPLETED DATE/TME: 12/27/2017 06:00 CLINICAL HISTORY: 77 years Female, pna resp failure COMPARISON: One day prior. NUMBER OF VIEWS/TECHNIQUE: 1/AP FINDINGS: Moderate opacity-effusion of the left lower hemithorax, moderate interstitial markings, moderate patchy opacity of the lateral left lower and mid hemithorax. Normal cardiac silhouette size. Left cardiac stimulator with leads. Adequate appearing right subclavian central line. No pneumothorax. Stable bony thorax. IMPRESSION: No significant change.
--- NOTE | 2017-12-27 07:57 | PDOC PROGRESS REPORT ---
Subjective Progress Note for:: 12/27/17 Subjective:: Patient remain on BiPAP support with reported demonstrable confusional state. She was restarted on some of her home medication including Xanax, Percocet, Buspar and Requip since last clinical evaluation. No reported fever. No chest pain. Continue to experience coughing with sputum production. Reason For Visit: SEPSIS,LEUKEMOID REACTION,LEUKEMIA/LYMPHOMA, Physical Exam Vital Signs: Temp Pulse Resp BP Pulse Ox 97.0 F 96 22 H 94/78 L 98 12/27/17 05:08 12/27/17 02:00 12/27/17 06:01 12/27/17 06:00 12/27/17 06:01 Intake & Output 12/26/17 12/27/17 12/28/17 06:59 06:59 06:59 Intake Total 3217 2502 Output Total 2710 2835 Balance 507 -333 Weight 61.7 kg 61.6 kg Physical Exam: General appearance: PRESENT: mild distress - on BiPAP support, thin Head exam: PRESENT: atraumatic, normocephalic Eye exam: PRESENT: conjunctiva pink, EOMI, PERRLA. ABSENT: scleral icterus Ear exam: PRESENT: normal external ear exam Mouth exam: PRESENT: moist Respiratory exam: PRESENT: crackles - scattered bilaterally, decreased breath sounds - bilaterally Cardiovascular exam: PRESENT: RRR. ABSENT: diastolic murmur, rubs, systolic murmur Vascular exam: PRESENT: normal capillary refill. ABSENT: pallor GI/Abdominal exam: PRESENT: normal bowel sounds, soft. ABSENT: distended, guarding, mass, organomegaly, rebound, tenderness Extremities exam: ABSENT: pedal edema Musculoskeletal exam: PRESENT: ambulatory - related to multiple joints involvement with arthritis Neurological exam: PRESENT: alert, awake, oriented to person, oriented to place , oriented to time, oriented to situation, CN II-XII grossly intact. ABSENT: motor sensory deficit Psychiatric exam: PRESENT: appropriate affect, normal mood. ABSENT: homicidal ideation, suicidal ideation Skin exam: PRESENT: dry, intact, warm. ABSENT: cyanosis, rash Results Laboratory Results: 12/27/17 03:50 12/27/17 03:50 12/27/17 12/27/17 12/27/17 03:50 03:50 05:35 WBC 16.1 H RBC 3.61 L Hgb 9.0 L Hct 30.0 L MCV 83 MCH 25.0 L MCHC 30.1 L RDW 18.1 H Plt Count 307 Seg Neutrophils % Not Reportable Lymphocytes % Not Reportable Monocytes % Not Reportable Eosinophils % Not Reportable Basophils % Not Reportable Absolute Neutrophils Not Reportable Absolute Lymphocytes Not Reportable Absolute Monocytes Not Reportable Absolute Eosinophils Not Reportable Absolute Basophils Not Reportable Carbonic Acid 1.83 H HCO3/H2CO3 Ratio 12:1 ABG pH 7.19 L* ABG pCO2 60.9 H ABG pO2 92.5 ABG HCO3 22.5 ABG O2 Saturation 95.0 ABG Base Excess -6.3 FiO2 40% Sodium 143.9 Potassium 3.9 Chloride 110 H Carbon Dioxide 25 Anion Gap 9 BUN 30 H Creatinine 1.34 H Est GFR ( Amer) 47 L Est GFR (Non-Af Amer) 39 L Glucose 62 L Calcium 8.3 L Total Bilirubin 0.3 AST 24 ALT 20 Alkaline Phosphatase 62 Total Protein 5.4 L Albumin 2.5 L 12/24/17 20:35 Nasophary (Mrsa Only) MRSA Surveillance Culture - Final 12/24/17 21:15 Sputum Gram Stain - Final 12/24/17 21:15 Sputum Sputum Culture - Final Yeast, Not Mihaela Albicans Reduced Normal Analy 12/24/17 12/24/17 12/24/17 07:56 07:56 13:50 Creatine Kinase 228 H 151 H CK-MB (CK-2) 7.37 H Troponin I < 0.012 12/24/17 13:50 Creatine Kinase CK-MB (CK-2) 6.20 H Troponin I < 0.012 Impressions: Chest X-Ray 12/27/17 06:00 IMPRESSION: No significant change. Assessment & Plan - Diagnosis (1) Lobar pneumonia, unspecified organism Is this a current diagnosis for this admission?: Yes (2) Chronic respiratory failure with hypoxia and hypercapnia Is this a current diagnosis for this admission?: Yes (3) History of pulmonary embolus (PE) Is this a current diagnosis for this admission?: Yes (4) H/O cardiac pacemaker Is this a current diagnosis for this admission?: Yes - Time Time Spent with patient: 25-34 minutes Medications reviewed and adjusted accordingly: Yes Anticipated discharge: Home with Homehealth Within: Other - Inpatient Certification Based on my medical assessment, after consideration of the patient's comorbidities, presenting symptoms, or acuity I expect that the services needed warrant INPATIENT care.: Yes I certify that my determination is in accordance with my understanding of Medicare's requirements for reasonable and necessary INPATIENT services [42 CFR 412.3e].: Yes Medical Necessity: Need Close Monitoring Due to Risk of Patient Decompensation, Need For IV Fluids, Need For Continuous Telemetry Monitoring, Need for Nebulizer Therapy and Monitoring of Response, Need for IV Antibiotics, Risk of Complication if Not Cared For in Hospital Post Hospital Care: D/C 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 Continue IV Zosyn and Vancomycin coverage. Add IV Diflucan for yeast not mihaela recovery from sputum culture in view of her COPD and steroid exposure prior to admission. Follow up on blood culture findings. Continue all other current medication anfd supportive management.
[2017-12-27 08:00] LABS: ARTERIAL BLOOD BASE EXCESS -3.6 mmol/L; ARTERIAL BLOOD H2CO3 1.74 mmol/L (1.05-1.35); ARTERIAL BLOOD O2 SATURATION 91.4 % (94-98); ARTERIAL BLOOD PCO2 57.9 mmHg (35-45); ARTERIAL BLOOD PH 7.24 (7.35-7.45); ARTERIAL BLOOD PO2 72.3 mmHg (80-100); ARTERIAL BLOOD TOTAL CO2 25.8 mmol/L (21-25)
[2017-12-27 08:01] LABS: ARTERIAL BLOOD FIO2 35%
[2017-12-27] MEDS: ACETYLCYSTEINE 20% SOLN 800 MG/4 ML VIAL.NEB NEB SCH ×2 (08:12→20:42)
[2017-12-27] MEDS: NORMAL SALINE 1000 ML 1,000 ML IV PRN ×2 (08:43→18:28)
[2017-12-27] MEDS: MONTELUKAST SODIUM 10 MG TABLET PO SCH (09:28)
[2017-12-27] MEDS: CITALOPRAM HYDROBROMIDE 20 MG TABLET PO SCH (09:29)
[2017-12-27] MEDS: ACETAZOLAMIDE 250 MG TABLET PO SCH ×2 (09:29→18:27)
[2017-12-27] MEDS: ENOXAPARIN SODIUM INJ 30 MG/0.3 ML DISP.SYRIN SUBCUT SCH (09:30)
[2017-12-27] MEDS: VANCOMYCIN HCL 750 MG in DEXTROSE 5%-WATER 250 ML IV SCH (09:30)
[2017-12-27] MEDS: FLUCONAZOLE 200 MG/NS RTU 200 MG/100 ML RTUPB IV SCH (09:30)
[2017-12-27] MEDS ORDERED: BUSPIRONE HCL 10 MG TABLET PO PRN (09:35)
--- NOTE | 2017-12-27 12:17 | PDOC CONSULTATION ---
Consultation Consult Date: 12/24/17 Attending physician:: JENNIFER WHEAT Consult reason:: pna/septic shock/arf/ams History of Present Illness Admission Date/PCP: 12/24/17 03:44 SARITA CASTILLO History of Present Illness: SUSAN BINGHAM is a 77 year old female,Known to [facility] patient presents with with altered mental status and temperature she subsequently presented to the ER and apparently she had been coughing and has some streaky hemoptysis as well upon arrival to the ED she had a temp and elevated temperature and white count 72,000 as well as being somewhat hypo- tensive and was taken and placed in the ICU with vasopressors being treated for septic shock. Past Medical History Cardiac Medical History: Reports: Hyperlipidema, Hypertension, Pulmonary Embolism Pulmonary Medical History: Reports: Asthma, Bronchitis, Chronic Obstructive Pulmonary Disease (COPD), Pneumonia, Respiratory Failure, Sleep Apnea Neurological Medical History: Endocrine Medical History: Renal/ Medical History: Malignancy Medical History: GI Medical History: Reports: Diverticulitis, Gastroesophageal Reflux Disease Musculoskeltal Medical History: Reports: Arthritis Psychiatric Medical History: Reports: Depression Traumatic Medical History: Denies: Gunshot Wound, Stab Wound Hematology: Infectious Medical History: Denies: HIV Past Surgical History Past Surgical History: Reports: Colostomy - with reversal, 6 years ago, Hysterectomy, Orthopedic Surgery - left hip replacement 11/04/2014, Pacemaker Social History Information Source: [facility] Records Lives with: Family Smoking Status: Former Smoker Passive smoke exposure as: Both Frequency of Alcohol Use: None Hx Recreational Drug Use: No Drugs: None Hx Prescription Drug Abuse: No Do you have pets?: No Have you had any respiratory illnesses as a child?: No Have you been exposed to any sick contacts recently?: No Have you had any recent respiratory illnesses?: No Have you travelled outside of [place] in the past 12 months?: No - Advance Directive Resuscitation Status: Do Not Resuscitate Family History Family History: CAD - This is in not immediate family members., DM, Hyperlipidemia, Hypertension Parental Family History Reviewed: Yes Children Family History Reviewed: Yes Sibling(s) Family History Reviewed.: Yes Medication/Allergy Home Medications: Acetazolamide [Diamox 250 mg Tab] 250 mg PO BID 07/08/17 Albuterol Sulfate [Albuterol Sulfate 2.5mg/3 mL] 1 vial NEB DAILYP PRN 07/08/17 Buspirone HCl [Buspar 15 mg Tablet] 7.5 mg PO TID 07/08/17 Citalopram Hydrobromide [Celexa 40 mg Tablet] 40 mg PO DAILY 07/08/17 Montelukast Sodium [Singulair 10 mg Tablet] 10 mg PO DAILY 07/08/17 Oxycodone HCl/Acetaminophen [Percocet 7.5-325 mg Tablet] 1 tab PO Q8HP PRN 07/08 Ropinirole HCl [Requip] 1 mg PO TID 07/08/17 Zolpidem Tartrate [Ambien 5 mg Tablet] 5 mg PO HSP PRN 07/08/17 Alprazolam [Xanax 0.5 mg Tablet] 0.5 mg PO Q8 #60 tablet 07/20/17 Fluticasone/Umeclidin/Vilanter [Trelegy 100-62.5-25 Mcg Ellipta 14 Dose/Dpi] 1 each IH DAILY 12/24/17 Promethazine HCl [Phenergan 25 mg Tablet] 25 mg PO Q6HP PRN 12/24/17 Allergies/Adverse Reactions: codeine [Codeine] Allergy (Unknown, Verified 12/24/17 01:23) erythromycin base [Erythromycin Base] Allergy (Unknown, Verified 12/24/17 01:23) Review of Systems ROS unobtainable: Due to mental status Physical Exam Vital Signs: Temp Pulse Resp BP Pulse Ox 98.2 F 105 H 29 H 155/55 H 100 12/24/17 10:12 12/24/17 10:12 12/24/17 10:12 12/24/17 10:12 12/24/17 10:12 Intake & Output 12/23/17 12/24/17 12/25/17 06:59 06:59 06:59 Intake Total 335 104 Output Total 140 Balance 335 -36 Weight 57.7 kg General appearance: PRESENT: disheveled, mild distress Head exam: PRESENT: atraumatic, normocephalic Eye exam: PRESENT: conjunctiva pale, EOMI. ABSENT: nystagmus, periorbital swelling, scleral icterus Mouth exam: PRESENT: dry mucosa, neck supple, tongue midline Teeth exam: PRESENT: edentulous Neck exam: ABSENT: carotid bruit, JVD, lymphadenopathy, thyromegaly, tracheal deviation, tracheostomy Respiratory exam: PRESENT: crackles, decreased breath sounds, prolonged expiratory phas, rhonchi, tachypnea. ABSENT: retraction, stridor Cardiovascular exam: PRESENT: irregular rhythm GI/Abdominal exam: PRESENT: soft. ABSENT: tenderness Gentrourinary exam: PRESENT: indwelling catheter Extremities exam: PRESENT: pedal edema. ABSENT: calf tenderness, clubbing, joint swelling Musculoskeletal exam: ABSENT: ambulatory, deformity, dislocation Neurological exam: PRESENT: altered, awake Psychiatric exam: PRESENT: flat affect Skin exam: PRESENT: dry, warm Results Laboratory Results: 12/24/17 12/24/17 12/24/17 04:50 05:23 09:57 Carbonic Acid 1.71 H 1.44 H HCO3/H2CO3 Ratio 10:1 14:1 ABG pH 7.13 L* 7.25 L ABG pCO2 56.8 H 47.9 H ABG pO2 82.6 69.3 L ABG HCO3 18.3 L 20.3 ABG O2 Saturation 92.1 L 90.9 L ABG Base Excess -10.9 -6.8 FiO2 40% 40% Lactic Acid 4.3 H 12/24/17 12/24/17 07:56 07:56 Creatine Kinase 228 H CK-MB (CK-2) 7.37 H Troponin I < 0.012 Impressions: Chest X-Ray 12/24/17 01:09 IMPRESSION: Airspace opacity in the left perihilar region and left upper lobe which could reflect pneumonia. Recommend follow-up to ensure resolution. Underlying emphysema with minor fibrotic changes 2010 [employer]- All Rights Reserved Assessment & Plan - Diagnosis (1) Acute respiratory failure Qualifiers: Respiratory failure complication: hypoxia and hypercapnia Qualified Code(s) : J96.01 - Acute respiratory failure with hypoxia; J96.02 - Acute respiratory failure with hypercapnia; J96.02 - Acute respiratory failure with hypercapnia; J96.02 - Acute respiratory failure with hypercapnia Is this a current diagnosis for this admission?: Yes Plan: DNR trying to avoid intubation stable on BiPAP will increase the inspiratory setting to improve her tidal volumes (2) Bandemia Is this a current diagnosis for this admission?: Yes Plan: Labs- All tests 24 hr 12/24/17 01:25 WBC 72.5 H* Seg Neuts % (Manual) 81 H Band Neutrophils % 15 H (3) Metabolic acidosis Is this a current diagnosis for this admission?: Yes Plan: lactic acid rising (4) Pneumonia Qualifiers: Pneumonia type: due to unspecified organism Laterality: left Lung location: unspecified part of lung Qualified Code(s): J18.9 - Pneumonia, unspecified organism Is this a current diagnosis for this admission?: Yes Plan: no sputum start chest phsiotherapy + mucolytic (5) Septic shock Is this a current diagnosis for this admission?: Yes Plan: multiple vasopressors (6) GERD (gastroesophageal reflux disease) Qualifiers: Is this a current diagnosis for this admission?: Yes Plan: H2 logan - Time Total Critical Time (Minutes): 50
--- NOTE | 2017-12-27 12:22 | PDOC PROGRESS REPORT ---
Subjective Progress Note for:: 12/25/17 Subjective:: Slightly more alert but still lethargic Reason For Visit: SEPSIS,LEUKEMOID REACTION,LEUKEMIA/LYMPHOMA, Physical Exam Vital Signs: Temp Pulse Resp BP Pulse Ox 98.8 F 88 21 H 116/61 98 12/25/17 07:41 12/25/17 08:23 12/25/17 10:00 12/25/17 09:59 12/25/17 10:00 Intake & Output 12/24/17 12/25/17 12/26/17 06:59 06:59 06:59 Intake Total 335 3268 100 Output Total 2120 285 Balance 335 1148 -185 Weight 57.7 kg 59.9 kg General appearance: PRESENT: no acute distress, cooperative, disheveled Head exam: PRESENT: atraumatic, normocephalic Eye exam: PRESENT: conjunctiva pale, EOMI. ABSENT: nystagmus, periorbital swelling, scleral icterus Mouth exam: PRESENT: dry mucosa, neck supple, tongue midline Neck exam: ABSENT: carotid bruit, JVD, lymphadenopathy, thyromegaly, tracheal deviation, tracheostomy Respiratory exam: PRESENT: crackles, decreased breath sounds, prolonged expiratory phas, rhonchi, tachypnea, unlabored. ABSENT: retraction, stridor Cardiovascular exam: PRESENT: +S1, +S2, tachycardia Pulses: PRESENT: normal radial pulses GI/Abdominal exam: PRESENT: soft. ABSENT: tenderness Gentrourinary exam: PRESENT: indwelling catheter Extremities exam: PRESENT: pedal edema. ABSENT: calf tenderness, clubbing, joint swelling Musculoskeletal exam: ABSENT: ambulatory, deformity, dislocation Neurological exam: PRESENT: altered, awake Psychiatric exam: PRESENT: flat affect Skin exam: PRESENT: dry, warm Results Laboratory Results: 12/25/17 04:22 12/25/17 04:22 12/24/17 12/24/17 12/24/17 11:12 11:12 11:12 WBC 60.3 H* RBC 3.42 L Hgb 8.6 L Hct 28.0 L MCV 82 MCH 25.1 L MCHC 30.7 L RDW 18.1 H Plt Count 307 Seg Neutrophils % Not Reportable Lymphocytes % Not Reportable Monocytes % Not Reportable Eosinophils % Not Reportable Basophils % Not Reportable Absolute Neutrophils Not Reportable Absolute Lymphocytes Not Reportable Absolute Monocytes Not Reportable Absolute Eosinophils Not Reportable Absolute Basophils Not Reportable Carbonic Acid HCO3/H2CO3 Ratio ABG pH ABG pCO2 ABG pO2 ABG HCO3 ABG O2 Saturation ABG Base Excess FiO2 Sodium 134.8 L Potassium 4.5 Chloride 100 Carbon Dioxide 20 L Anion Gap 15 BUN 48 H Creatinine 1.85 H Est GFR ( Amer) 32 L Est GFR (Non-Af Amer) 27 L Glucose 185 H Lactic Acid 2.7 H Calcium 8.6 Phosphorus 5.5 H Magnesium 1.9 Total Bilirubin 0.2 AST 35 ALT 16 Alkaline Phosphatase 73 Total Protein 5.3 L Albumin 2.5 L Stool for White Cells 12/24/17 12/24/17 12/25/17 13:25 20:50 00:20 WBC RBC Hgb Hct MCV MCH MCHC RDW Plt Count Seg Neutrophils % Lymphocytes % Monocytes % Eosinophils % Basophils % Absolute Neutrophils Absolute Lymphocytes Absolute Monocytes Absolute Eosinophils Absolute Basophils Carbonic Acid 1.43 H 1.41 H HCO3/H2CO3 Ratio 15:1 16:1 ABG pH 7.28 L 7.31 L ABG pCO2 47.4 H 46.9 H ABG pO2 71.7 L 84.1 ABG HCO3 21.6 22.8 ABG O2 Saturation 92.3 L 95.3 ABG Base Excess -5.2 -3.5 FiO2 40% 40% Sodium Potassium Chloride Carbon Dioxide Anion Gap BUN Creatinine Est GFR ( Amer) Est GFR (Non-Af Amer) Glucose Lactic Acid Calcium Phosphorus Magnesium Total Bilirubin AST ALT Alkaline Phosphatase Total Protein Albumin Stool for White Cells NO WBCs SEEN 12/25/17 12/25/17 12/25/17 04:22 04:22 04:22 WBC RBC Hgb Hct MCV MCH MCHC RDW Plt Count Seg Neutrophils % Lymphocytes % Monocytes % Eosinophils % Basophils % Absolute Neutrophils Absolute Lymphocytes Absolute Monocytes Absolute Eosinophils Absolute Basophils Carbonic Acid HCO3/H2CO3 Ratio ABG pH ABG pCO2 ABG pO2 ABG HCO3 ABG O2 Saturation ABG Base Excess FiO2 Sodium 136.3 L Potassium 4.3 Chloride 104 Carbon Dioxide 23 Anion Gap 9 BUN 46 H Creatinine 1.73 H Est GFR ( Amer) 35 L Est GFR (Non-Af Amer) 29 L Glucose 132 H Lactic Acid 1.3 Calcium 8.4 Phosphorus 4.4 Magnesium 2.1 Total Bilirubin 0.3 AST 39 H ALT 19 Alkaline Phosphatase 63 Total Protein 5.1 L Albumin 2.4 L Stool for White Cells 12/25/17 12/25/17 04:22 05:10 WBC 44.1 H* RBC 3.20 L Hgb 8.0 L Hct 25.6 L MCV 80 MCH 25.1 L MCHC 31.3 L RDW 18.0 H Plt Count 293 Seg Neutrophils % 90.9 H Lymphocytes % 5.8 L Monocytes % 2.9 L Eosinophils % 0.0 Basophils % 0.4 Absolute Neutrophils 40.0 H Absolute Lymphocytes 2.5 Absolute Monocytes 1.3 Absolute Eosinophils 0.0 Absolute Basophils 0.2 Carbonic Acid 1.47 H HCO3/H2CO3 Ratio 16:1 ABG pH 7.31 L ABG pCO2 48.7 H ABG pO2 88.2 ABG HCO3 24.0 ABG O2 Saturation 95.9 ABG Base Excess -2.2 FiO2 45% Sodium Potassium Chloride Carbon Dioxide Anion Gap BUN Creatinine Est GFR ( Amer) Est GFR (Non-Af Amer) Glucose Lactic Acid Calcium Phosphorus Magnesium Total Bilirubin AST ALT Alkaline Phosphatase Total Protein Albumin Stool for White Cells 12/24/17 12/24/17 12/24/17 07:56 07:56 13:50 Creatine Kinase 228 H 151 H CK-MB (CK-2) 7.37 H Troponin I < 0.012 12/24/17 13:50 Creatine Kinase CK-MB (CK-2) 6.20 H Troponin I < 0.012 Impressions: Chest X-Ray 12/25/17 06:00 IMPRESSION: Persistent airspace opacities throughout the left hemithorax. New right perihilar opacity. Small bibasilar effusions and/or pleural thickening. Underlying emphysema. 2010 [employer]- All Rights Reserved Assessment & Plan - Diagnosis (1) Acute respiratory failure Qualifiers: Respiratory failure complication: hypoxia and hypercapnia Qualified Code(s) : J96.01 - Acute respiratory failure with hypoxia; J96.02 - Acute respiratory failure with hypercapnia; J96.02 - Acute respiratory failure with hypercapnia; J96.02 - Acute respiratory failure with hypercapnia Is this a current diagnosis for this admission?: Yes Plan: Stable (2) Bandemia Is this a current diagnosis for this admission?: Yes (3) Metabolic acidosis Is this a current diagnosis for this admission?: Yes (4) Pneumonia Qualifiers: Pneumonia type: due to unspecified organism Laterality: left Lung location: unspecified part of lung Qualified Code(s): J18.9 - Pneumonia, unspecified organism Is this a current diagnosis for this admission?: Yes Plan: 1 bc + strep pna (5) Septic shock Is this a current diagnosis for this admission?: Yes Plan: multiple vasopressors (6) GERD (gastroesophageal reflux disease) Qualifiers: Is this a current diagnosis for this admission?: Yes Plan: H2 logan - Time Total Critical Time (Minutes): 45 - Plan Summary Plan Summary: Reviewed plan of care with family and they concur
--- NOTE | 2017-12-27 12:27 | PDOC PROGRESS REPORT ---
Subjective Progress Note for:: 12/26/17 Subjective:: more alert Reason For Visit: SEPSIS,LEUKEMOID REACTION,LEUKEMIA/LYMPHOMA, Physical Exam Vital Signs: Temp Pulse Resp BP Pulse Ox 97.2 F 82 20 95/50 L 95 12/26/17 10:00 12/26/17 10:00 12/26/17 10:00 12/26/17 10:00 12/26/17 10:00 Intake & Output 12/25/17 12/26/17 12/27/17 06:59 06:59 06:59 Intake Total 3268 3217 752 Output Total 2120 9450 400 Balance 1148 507 352 Weight 59.9 kg 61.7 kg General appearance: PRESENT: no acute distress, cooperative, disheveled Head exam: PRESENT: atraumatic, normocephalic Eye exam: PRESENT: conjunctiva pale. ABSENT: nystagmus, periorbital swelling, scleral icterus Mouth exam: PRESENT: dry mucosa, neck supple, tongue midline Neck exam: ABSENT: carotid bruit, JVD, lymphadenopathy, thyromegaly, tracheal deviation, tracheostomy Respiratory exam: PRESENT: decreased breath sounds, prolonged expiratory phas, rales, rhonchi, unlabored. ABSENT: retraction, stridor Cardiovascular exam: PRESENT: +S1, +S2 Pulses: PRESENT: normal radial pulses GI/Abdominal exam: PRESENT: soft. ABSENT: tenderness Gentrourinary exam: PRESENT: indwelling catheter Extremities exam: PRESENT: pedal edema. ABSENT: calf tenderness, clubbing, joint swelling Musculoskeletal exam: ABSENT: ambulatory, deformity, dislocation Neurological exam: PRESENT: awake Psychiatric exam: PRESENT: flat affect Skin exam: PRESENT: dry, warm Results Laboratory Results: 12/26/17 03:55 12/26/17 03:55 12/25/17 12/26/17 12/26/17 14:13 03:55 03:55 WBC 23.2 H RBC 3.12 L Hgb 7.9 L Hct 25.1 L MCV 81 MCH 25.3 L MCHC 31.4 L RDW 18.0 H Plt Count 285 Seg Neutrophils % Not Reportable Lymphocytes % Not Reportable Monocytes % Not Reportable Eosinophils % Not Reportable Basophils % Not Reportable Absolute Neutrophils Not Reportable Absolute Lymphocytes Not Reportable Absolute Monocytes Not Reportable Absolute Eosinophils Not Reportable Absolute Basophils Not Reportable Carbonic Acid 1.22 HCO3/H2CO3 Ratio 16:1 ABG pH 7.32 L ABG pCO2 40.4 ABG pO2 99.9 ABG HCO3 20.1 ABG O2 Saturation 97.1 ABG Base Excess -5.6 FiO2 40% Sodium 140.8 Potassium 3.9 Chloride 107 Carbon Dioxide 22 Anion Gap 12 BUN 43 H Creatinine 1.49 H Est GFR ( Amer) 41 L Est GFR (Non-Af Amer) 34 L Glucose 74 L Calcium 8.3 L Magnesium 2.1 Total Bilirubin 0.2 AST 30 ALT 22 Alkaline Phosphatase 54 Total Protein 5.0 L Albumin 2.3 L 12/26/17 05:50 WBC RBC Hgb Hct MCV MCH MCHC RDW Plt Count Seg Neutrophils % Lymphocytes % Monocytes % Eosinophils % Basophils % Absolute Neutrophils Absolute Lymphocytes Absolute Monocytes Absolute Eosinophils Absolute Basophils Carbonic Acid 1.71 H HCO3/H2CO3 Ratio 15:1 ABG pH 7.27 L ABG pCO2 56.8 H ABG pO2 73.6 L ABG HCO3 25.7 H ABG O2 Saturation 92.6 L ABG Base Excess -1.4 FiO2 50% Sodium Potassium Chloride Carbon Dioxide Anion Gap BUN Creatinine Est GFR ( Amer) Est GFR (Non-Af Amer) Glucose Calcium Magnesium Total Bilirubin AST ALT Alkaline Phosphatase Total Protein Albumin 12/24/17 20:35 Nasophary (Mrsa Only) MRSA Surveillance Culture - Final 12/24/17 21:15 Sputum Gram Stain - Final 12/24/17 21:15 Sputum Sputum Culture - Final Yeast, Not Mihaela Albicans Reduced Normal Analy 12/24/17 12/24/17 12/24/17 07:56 07:56 13:50 Creatine Kinase 228 H 151 H CK-MB (CK-2) 7.37 H Troponin I < 0.012 12/24/17 13:50 Creatine Kinase CK-MB (CK-2) 6.20 H Troponin I < 0.012 Impressions: Chest X-Ray 12/26/17 06:00 IMPRESSION: Worsening of airspace opacities of the left hemithorax. Other findings are grossly stable 2010 [email or web address]- All Rights Reserved Assessment & Plan - Diagnosis (1) Acute respiratory failure Qualifiers: Respiratory failure complication: hypoxia and hypercapnia Qualified Code(s) : J96.01 - Acute respiratory failure with hypoxia; J96.02 - Acute respiratory failure with hypercapnia; J96.02 - Acute respiratory failure with hypercapnia; J96.02 - Acute respiratory failure with hypercapnia Is this a current diagnosis for this admission?: Yes Plan: Try to alternate BiPAP with high flow oxygen as the latter is more comfortable (2) Bandemia Is this a current diagnosis for this admission?: No (3) Metabolic acidosis Is this a current diagnosis for this admission?: Yes Plan: Improving (4) Pneumonia Qualifiers: Pneumonia type: due to unspecified organism Laterality: left Lung location: unspecified part of lung Qualified Code(s): J18.9 - Pneumonia, unspecified organism Is this a current diagnosis for this admission?: Yes Plan: 1 bc + strep pna (5) Septic shock Is this a current diagnosis for this admission?: Yes Plan: 1 vasopressor (6) GERD (gastroesophageal reflux disease) Qualifiers: Is this a current diagnosis for this admission?: Yes Plan: H2 logan - Time Total Critical Time (Minutes): 45
--- NOTE | 2017-12-27 12:31 | PDOC PROGRESS REPORT ---
Subjective Progress Note for:: 12/27/17 Subjective:: Poor last night PCO2 increased became patient became more lethargic Reason For Visit: SEPSIS,LEUKEMOID REACTION,LEUKEMIA/LYMPHOMA, Physical Exam Vital Signs: Temp Pulse Resp BP Pulse Ox 97.7 F 90 23 H 121/55 L 97 12/27/17 08:00 12/27/17 08:13 12/27/17 08:13 12/27/17 08:00 12/27/17 08:13 Intake & Output 12/26/17 12/27/17 12/28/17 06:59 06:59 06:59 Intake Total 3217 2502 1000 Output Total 2710 2835 175 Balance 507 -333 825 Weight 61.7 kg 61.6 kg General appearance: PRESENT: no acute distress, cooperative, disheveled Head exam: PRESENT: atraumatic, normocephalic Eye exam: PRESENT: conjunctiva pale, EOMI Mouth exam: PRESENT: dry mucosa, neck supple, tongue midline Neck exam: ABSENT: carotid bruit, JVD, lymphadenopathy, thyromegaly, tracheal deviation, tracheostomy Respiratory exam: PRESENT: decreased breath sounds, prolonged expiratory phas, rales, rhonchi, unlabored. ABSENT: retraction, stridor Cardiovascular exam: PRESENT: +S1, +S2 Pulses: PRESENT: normal radial pulses GI/Abdominal exam: PRESENT: soft. ABSENT: tenderness Gentrourinary exam: PRESENT: indwelling catheter Extremities exam: PRESENT: pedal edema. ABSENT: calf tenderness, clubbing, joint swelling Musculoskeletal exam: ABSENT: ambulatory Neurological exam: PRESENT: awake, oriented to person, oriented to place, oriented to situation Psychiatric exam: PRESENT: flat affect Skin exam: PRESENT: dry, warm Results Laboratory Results: 12/27/17 03:50 12/27/17 03:50 12/27/17 12/27/17 12/27/17 03:50 03:50 05:35 WBC 16.1 H RBC 3.61 L Hgb 9.0 L Hct 30.0 L MCV 83 MCH 25.0 L MCHC 30.1 L RDW 18.1 H Plt Count 307 Seg Neutrophils % Not Reportable Lymphocytes % Not Reportable Monocytes % Not Reportable Eosinophils % Not Reportable Basophils % Not Reportable Absolute Neutrophils Not Reportable Absolute Lymphocytes Not Reportable Absolute Monocytes Not Reportable Absolute Eosinophils Not Reportable Absolute Basophils Not Reportable Carbonic Acid 1.83 H HCO3/H2CO3 Ratio 12:1 ABG pH 7.19 L* ABG pCO2 60.9 H ABG pO2 92.5 ABG HCO3 22.5 ABG O2 Saturation 95.0 ABG Base Excess -6.3 FiO2 40% Sodium 143.9 Potassium 3.9 Chloride 110 H Carbon Dioxide 25 Anion Gap 9 BUN 30 H Creatinine 1.34 H Est GFR ( Amer) 47 L Est GFR (Non-Af Amer) 39 L Glucose 62 L Calcium 8.3 L Total Bilirubin 0.3 AST 24 ALT 20 Alkaline Phosphatase 62 Total Protein 5.4 L Albumin 2.5 L 12/27/17 07:49 WBC RBC Hgb Hct MCV MCH MCHC RDW Plt Count Seg Neutrophils % Lymphocytes % Monocytes % Eosinophils % Basophils % Absolute Neutrophils Absolute Lymphocytes Absolute Monocytes Absolute Eosinophils Absolute Basophils Carbonic Acid 1.74 H HCO3/H2CO3 Ratio 13:1 ABG pH 7.24 L ABG pCO2 57.9 H ABG pO2 72.3 L ABG HCO3 24.0 ABG O2 Saturation 91.4 L ABG Base Excess -3.6 FiO2 35% Sodium Potassium Chloride Carbon Dioxide Anion Gap BUN Creatinine Est GFR ( Amer) Est GFR (Non-Af Amer) Glucose Calcium Total Bilirubin AST ALT Alkaline Phosphatase Total Protein Albumin 12/24/17 20:35 Nasophary (Mrsa Only) MRSA Surveillance Culture - Final 12/24/17 21:15 Sputum Gram Stain - Final 12/24/17 21:15 Sputum Sputum Culture - Final Yeast, Not Mihaela Albicans Reduced Normal Analy 12/24/17 12/24/17 12/24/17 07:56 07:56 13:50 Creatine Kinase 228 H 151 H CK-MB (CK-2) 7.37 H Troponin I < 0.012 12/24/17 13:50 Creatine Kinase CK-MB (CK-2) 6.20 H Troponin I < 0.012 Impressions: Chest X-Ray 12/27/17 06:00 IMPRESSION: No significant change. Assessment & Plan - Diagnosis (1) Acute respiratory failure Qualifiers: Respiratory failure complication: hypoxia and hypercapnia Qualified Code(s) : J96.01 - Acute respiratory failure with hypoxia; J96.02 - Acute respiratory failure with hypercapnia; J96.02 - Acute respiratory failure with hypercapnia; J96.02 - Acute respiratory failure with hypercapnia Is this a current diagnosis for this admission?: Yes (2) Bandemia Is this a current diagnosis for this admission?: Yes (3) Metabolic acidosis Is this a current diagnosis for this admission?: Yes (4) Pneumonia Qualifiers: Pneumonia type: due to unspecified organism Laterality: left Lung location: unspecified part of lung Qualified Code(s): J18.9 - Pneumonia, unspecified organism Is this a current diagnosis for this admission?: Yes (5) Septic shock Is this a current diagnosis for this admission?: Yes (6) GERD (gastroesophageal reflux disease) Qualifiers: Is this a current diagnosis for this admission?: Yes
[2017-12-27 13:16] LABS: ARTERIAL BLOOD BASE EXCESS -3.7 mmol/L; ARTERIAL BLOOD FIO2 30%; ARTERIAL BLOOD H2CO3 1.55 mmol/L (1.05-1.35); ARTERIAL BLOOD HCO3 23.2 mmol/L (20-24); ARTERIAL BLOOD O2 SATURATION 94.5 % (94-98); ARTERIAL BLOOD PCO2 51.6 mmHg (35-45); ARTERIAL BLOOD PH 7.27 (7.35-7.45); ARTERIAL BLOOD PO2 81.8 mmHg (80-100); ARTERIAL BLOOD TOTAL CO2 24.8 mmol/L (21-25)
[2017-12-27] MEDS: ALPRAZOLAM 0.25 MG TABLET PO SCH ×2 (14:10→22:05)
[2017-12-28] MEDS: IPRATROPIUM/ALBUTEROL 0.5-2.5 MG/3 ML AMPUL NEB SCH ×4 (01:43→19:35)
[2017-12-28] MEDS: OXYCODONE HCL IR 5 MG TABLET PO PRN ×2 (01:50→21:28)
[2017-12-28] MEDS: NORMAL SALINE 1000 ML 1,000 ML IV PRN ×2 (02:39→15:15)
[2017-12-28] MEDS: PIPERACILLIN SODIUM/TAZOBACTAM 3.375 GM in NORMAL SALINE 100 ML IV SCH ×4 (02:39→21:27)
[2017-12-28 04:12] LABS: HEMOGLOBIN 8.4 g/dL (12.0-15.5); MEAN CORPUSCULAR HEMOGLOBIN 25.2 pg (27.0-33.4); MEAN CORPUSCULAR VOLUME 81 fl (80-97); PLATELET COUNT 311 10^3/uL (150-450); RED BLOOD COUNT 3.33 10^6/uL (3.72-5.28); RED CELL DISTRIBUTION WIDTH 18.4 % (11.5-14.0); WHITE BLOOD COUNT 10.1 10^3/uL (4.0-10.5)
[2017-12-28 04:17] LABS: ALANINE AMINOTRANSFERASE 14 U/L (9-52); ALBUMIN 2.7 g/dL (3.5-5.0); ALKALINE PHOSPHATASE 61 U/L (38-126); ANION GAP 11 (5-19); ASPARTATE AMINO TRANSFERASE 19 U/L (14-36); BILIRUBIN,DIRECT 0.2 mg/dL (0.0-0.4); BILIRUBIN,TOTAL 0.3 mg/dL (0.2-1.3); BLOOD UREA NITROGEN 19 mg/dL (7-20); CALCIUM 8.4 mg/dL (8.4-10.2); CARBON DIOXIDE 25 mmol/L (22-30); CHLORIDE 113 mmol/L (98-107); GLUCOSE 78 mg/dL (75-110); POTASSIUM 3.5 mmol/L (3.6-5.0); SODIUM 149.1 mmol/L (137-145)
[2017-12-28 04:35] LABS: ABSOLUTE LYMPHOCYTES# (MANUAL) 1.7 10^3/uL (0.5-4.7); ABSOLUTE MONOCYTES # (MANUAL) 1.4 10^3/uL (0.1-1.4); BASOPHILS % (MANUAL) 0 % (0-2); EOSINOPHILS % (MANUAL) 0 % (0-6); LYMPHOCYTES % (MANUAL) 17 % (13-45); MONOCYTES % (MANUAL) 14 % (3-13); NUCLEATED RED BLOOD CELLS 1 /100 WBC (0); SEGMENTED NEUTROPHILS % (MAN) 69 % (42-78); TOTAL CELLS COUNTED 100
[2017-12-28 04:36] LABS: ANISOCYTOSIS 1+; BURR CELLS 1+; POIKILOCYTOSIS 1+
[2017-12-28 04:37] LABS: PLATELET COMMENT ADEQUATE; PLATELET GIANT PRESENT; PLATELET LARGE PRESENT; SCHISTOCYTES 1+; TOXIC GRANULATION 2+
[2017-12-28] MEDS: LANSOPRAZOLE 15 MG TAB.RAP.DR PO SCH (05:15)
[2017-12-28] MEDS: ALPRAZOLAM 0.25 MG TABLET PO SCH ×3 (05:15→21:28)
[2017-12-28] MEDS: LACTOBACILLUS ACIDOPHILUS 250 MG TAB PO SCH ×2 (05:15→17:12)
[2017-12-28 05:19] LABS: ARTERIAL BLOOD BASE EXCESS -4.2 mmol/L; ARTERIAL BLOOD H2CO3 1.47 mmol/L (1.05-1.35); ARTERIAL BLOOD HCO3 22.5 mmol/L (20-24); ARTERIAL BLOOD O2 SATURATION 94.6 % (94-98); ARTERIAL BLOOD PCO2 48.7 mmHg (35-45); ARTERIAL BLOOD PH 7.28 (7.35-7.45); ARTERIAL BLOOD PO2 81.2 mmHg (80-100)
[2017-12-28 05:20] LABS: ARTERIAL BLOOD FIO2 30%
--- NOTE | 2017-12-28 06:33 | RADIOLOGY REPORT (SQ) ---
EXAM DESCRIPTION: XR CHEST 1 VIEW COMPLETED DATE/TME: 12/28/2017 06:00 CLINICAL HISTORY: 77 years Female, pna/resp failure COMPARISON: One day prior. NUMBER OF VIEWS/TECHNIQUE: 1/AP FINDINGS: Moderate mixed airspace and interstitial opacities. Bilateral lower thoracic opacity/effusion. Normal cardiac silhouette size. Atherosclerosis. Left cardiac stimulator with leads. Adequate appearing right subclavian central line. No pneumothorax. Stable bony thorax. IMPRESSION: No significant change.
--- NOTE | 2017-12-28 07:59 | PDOC PROGRESS REPORT ---
Subjective Progress Note for:: 12/28/17 Subjective:: Patient is more lucid and clear minded this am. Appropriate in conversation. Complain about lack of sleep and reported use of Ambien at home. No chest pain. Remain on BiPAP support. No nausea, vomiting, or abdominal pain. No reported fever or chills. Reason For Visit: SEPSIS,LEUKEMOID REACTION,LEUKEMIA/LYMPHOMA, Physical Exam Vital Signs: Temp Pulse Resp BP Pulse Ox 98.6 F 89 18 119/52 L 96 12/27/17 18:00 12/28/17 01:43 12/28/17 06:01 12/28/17 06:01 12/28/17 06:01 Intake & Output 12/27/17 12/28/17 12/29/17 06:59 06:59 06:59 Intake Total 2602 3942 Output Total 2835 1545 Balance -233 2397 Weight 61.6 kg 63.4 kg Physical Exam: General appearance: PRESENT: on BiPAP support, thin Head exam: PRESENT: atraumatic, normocephalic Eye exam: PRESENT: conjunctiva pink, EOMI, PERRLA. ABSENT: scleral icterus Ear exam: PRESENT: normal external ear exam Mouth exam: PRESENT: moist Respiratory exam: PRESENT: crackles - scattered bilaterally, decreased breath sounds - bilaterally Cardiovascular exam: PRESENT: RRR. ABSENT: diastolic murmur, rubs, systolic murmur Vascular exam: ABSENT: pallor GI/Abdominal exam: PRESENT: normal bowel sounds, soft. ABSENT: distended, guarding, mass, organomegaly, rebound, tenderness Extremities exam: ABSENT: pedal edema Musculoskeletal exam: PRESENT: ambulatory - related to multiple joints involvement with arthritis Neurological exam: PRESENT: alert, awake, oriented to person, oriented to place , oriented to time, oriented to situation, CN II-XII grossly intact. ABSENT: motor sensory deficit Psychiatric exam: PRESENT: appropriate affect, normal mood. ABSENT: homicidal ideation, suicidal ideation Skin exam: PRESENT: dry, intact, warm. ABSENT: cyanosis, rash Results Laboratory Results: 12/28/17 03:56 12/28/17 03:56 12/27/17 12/27/17 12/28/17 07:49 13:00 03:56 WBC 10.1 RBC 3.33 L Hgb 8.4 L Hct 27.0 L MCV 81 MCH 25.2 L MCHC 31.0 L RDW 18.4 H Plt Count 311 Seg Neutrophils % Not Reportable Lymphocytes % Not Reportable Monocytes % Not Reportable Eosinophils % Not Reportable Basophils % Not Reportable Absolute Neutrophils Not Reportable Absolute Lymphocytes Not Reportable Absolute Monocytes Not Reportable Absolute Eosinophils Not Reportable Absolute Basophils Not Reportable Carbonic Acid 1.74 H 1.55 H HCO3/H2CO3 Ratio 13:1 14:1 ABG pH 7.24 L 7.27 L ABG pCO2 57.9 H 51.6 H ABG pO2 72.3 L 81.8 ABG HCO3 24.0 23.2 ABG O2 Saturation 91.4 L 94.5 ABG Base Excess -3.6 -3.7 FiO2 35% 30% Sodium Potassium Chloride Carbon Dioxide Anion Gap BUN Creatinine Est GFR ( Amer) Est GFR (Non-Af Amer) Glucose Calcium Magnesium Total Bilirubin AST ALT Alkaline Phosphatase Total Protein Albumin 12/28/17 12/28/17 03:56 05:15 WBC RBC Hgb Hct MCV MCH MCHC RDW Plt Count Seg Neutrophils % Lymphocytes % Monocytes % Eosinophils % Basophils % Absolute Neutrophils Absolute Lymphocytes Absolute Monocytes Absolute Eosinophils Absolute Basophils Carbonic Acid 1.47 H HCO3/H2CO3 Ratio 15:1 ABG pH 7.28 L ABG pCO2 48.7 H ABG pO2 81.2 ABG HCO3 22.5 ABG O2 Saturation 94.6 ABG Base Excess -4.2 FiO2 30% Sodium 149.1 H Potassium 3.5 L Chloride 113 H Carbon Dioxide 25 Anion Gap 11 BUN 19 Creatinine 1.08 Est GFR ( Amer) > 60 Est GFR (Non-Af Amer) 49 L Glucose 78 Calcium 8.4 Magnesium 2.0 Total Bilirubin 0.3 AST 19 ALT 14 Alkaline Phosphatase 61 Total Protein 6.0 L Albumin 2.7 L 12/24/17 12/24/17 12/24/17 07:56 07:56 13:50 Creatine Kinase 228 H 151 H CK-MB (CK-2) 7.37 H Troponin I < 0.012 12/24/17 13:50 Creatine Kinase CK-MB (CK-2) 6.20 H Troponin I < 0.012 Impressions: Chest X-Ray 12/28/17 06:00 IMPRESSION: No significant change. Assessment & Plan - Diagnosis (1) Acute respiratory failure Qualifiers: Respiratory failure complication: hypoxia and hypercapnia Qualified Code(s) : J96.01 - Acute respiratory failure with hypoxia; J96.02 - Acute respiratory failure with hypercapnia; J96.02 - Acute respiratory failure with hypercapnia; J96.02 - Acute respiratory failure with hypercapnia Is this a current diagnosis for this admission?: Yes Plan: Continue noninvasive respiratory support via BiPAP and High flow nasal device as needed. Attempt to wean off with clinical improvement of her acute illness. (2) Lobar pneumonia, unspecified organism Is this a current diagnosis for this admission?: Yes Plan: Continue IV Zosyn, Vancomycin and Diflucan coverage. Follow up on blood culture findings. (3) Chronic respiratory failure with hypoxia and hypercapnia Is this a current diagnosis for this admission?: Yes (4) History of pulmonary embolus (PE) Is this a current diagnosis for this admission?: Yes (5) H/O cardiac pacemaker Is this a current diagnosis for this admission?: Yes - Time Time Spent with patient: 25-34 minutes Medications reviewed and adjusted accordingly: Yes Anticipated discharge: SNF - for short term rehabilitation Within: Other - Inpatient Certification Based on my medical assessment, after consideration of the patient's comorbidities, presenting symptoms, or acuity I expect that the services needed warrant INPATIENT care.: Yes I certify that my determination is in accordance with my understanding of Medicare's requirements for reasonable and necessary INPATIENT services [42 CFR 412.3e].: Yes Medical Necessity: Need Close Monitoring Due to Risk of Patient Decompensation, Need For IV Fluids, Need For Continuous Telemetry Monitoring, Need for Nebulizer Therapy and Monitoring of Response, Need for IV Antibiotics, Risk of Complication if Not Cared For in Hospital Post Hospital Care: D/C or Transfer Summary - Plan Summary Plan Summary: Continue current medication management. Allow use of Melatonin 3 mg po qhs prn for insomnia management. Patient will receive potassium replacement. Check serum magnesium level.
[2017-12-28] MEDS: ACETYLCYSTEINE 20% SOLN 800 MG/4 ML VIAL.NEB NEB SCH ×2 (08:31→19:35)
[2017-12-28] MEDS: POTASSIUM CHLORIDE 10 MEQ CAPSULE.ER PO SCH ×2 (08:59→10:42)
[2017-12-28] MEDS: CITALOPRAM HYDROBROMIDE 20 MG TABLET PO SCH (10:42)
[2017-12-28] MEDS: MONTELUKAST SODIUM 10 MG TABLET PO SCH (10:43)
[2017-12-28] MEDS: ACETAZOLAMIDE 250 MG TABLET PO SCH ×2 (10:43→17:12)
[2017-12-28] MEDS: FLUCONAZOLE 200 MG/NS RTU 200 MG/100 ML RTUPB IV SCH (10:43)
[2017-12-28] MEDS: ENOXAPARIN SODIUM INJ 30 MG/0.3 ML DISP.SYRIN SUBCUT SCH (10:44)
[2017-12-28] MEDS: VANCOMYCIN HCL 750 MG in DEXTROSE 5%-WATER 250 ML IV SCH (10:44)
[2017-12-28] MEDS: ONDANSETRON HCL INJ/PF 4 MG/2 ML SDV IV PRN (13:17)
[2017-12-28] MEDS: MELATONIN 3 MG TABLET PO SCH (21:28)
[2017-12-28] MEDS: OXYCODONE-ACETAMINOPHEN 5-325 MG TABLET PO PRN (21:28)
--- NOTE | 2017-12-28 23:06 | Operative Report ---
Nonrecallable Operative Report DATE OF SURGERY: 12/28/17 PREOPERATIVE DIAGNOSIS: Infected Mediport POSTOPERATIVE DIAGNOSIS: Same as above OPERATION: Removal of infected right subclavian Mediport SURGEON: HUSAM OLSON ANESTHESIA: Local TISSUE REMOVED OR ALTERED: Right subclavian Mediport COMPLICATIONS: None apparent ESTIMATED BLOOD LOSS: Minimal PROCEDURE: Drains/implants: None. Procedure in detail: After informed consent was obtained, the patient was sat in the semi-upright position. The area of the right chest was prepped and draped in a normal sterile fashion. 1% lidocaine was used to infiltrate the skin of the right chest, around the Mediport. An 11 blade scalpel was used to create an incision within the bounds of the previous scar. The Mediport was dissected free of the surrounding tissue using sharp and blunt dissection. The Mediport hub was completely freed and removed from the pocket. The catheter and Mediport hub was then removed from the patient as one continuous piece. Pressure was held, and hemostasis was achieved. The subcutaneous tissue was closed using 3-0 Vicryl suture in simple interrupted fashion. The overlying skin was closed using 3-0 Vicryl suture in running subcuticular fashion. Dermabond was placed, and the procedure was concluded. All sponge, instrument, and needle counts were correct. Condition: Fair.
--- NOTE | 2017-12-28 23:17 | PDOC CONSULTATION ---
Consultation Consult reason:: Infected Mediport History of Present Illness Admission Date/PCP: 12/24/17 03:44 SARITA CASTILLO History of Present Illness: SUSAN BINGHAM is a 77 year old female seen at the request of Dr. Rosen. This is a patient with very difficult IV access and has had an indwelling Mediport for many years. The patient presented to the hospital with severe sepsis, severe leukocytosis, and respiratory distress. Dr. Rosen is concerned that her Mediport may be infected, and contributing to her current difficulties. The patient does report shortness of breath, fatigue, and malaise. She denies chest pain, headache, nausea, vomiting, abdominal pain, hematemesis, melena, hematochezia, blurry vision. Past Medical History Cardiac Medical History: Reports: Hyperlipidema, Hypertension, Pulmonary Embolism Pulmonary Medical History: Reports: Asthma, Bronchitis, Chronic Obstructive Pulmonary Disease (COPD), Pneumonia, Respiratory Failure, Sleep Apnea Neurological Medical History: Endocrine Medical History: Renal/ Medical History: Malignancy Medical History: GI Medical History: Reports: Diverticulitis, Gastroesophageal Reflux Disease Musculoskeltal Medical History: Reports: Arthritis Psychiatric Medical History: Reports: Depression Traumatic Medical History: Denies: Gunshot Wound, Stab Wound Hematology: Infectious Medical History: Denies: HIV Past Surgical History Past Surgical History: Reports: Colostomy - with reversal, 6 years ago, Hysterectomy, Orthopedic Surgery - left hip replacement 11/04/2014, Pacemaker Social History Lives with: Family Smoking Status: Former Smoker Frequency of Alcohol Use: None Hx Recreational Drug Use: No Drugs: None Hx Prescription Drug Abuse: No - Advance Directive Resuscitation Status: Do Not Resuscitate Family History Family History: CAD - This is in not immediate family members., DM, Hyperlipidemia, Hypertension Parental Family History Reviewed: Yes Children Family History Reviewed: Yes Sibling(s) Family History Reviewed.: Yes Medication/Allergy Home Medications: Acetazolamide [Diamox 250 mg Tab] 250 mg PO BID 07/08/17 Albuterol Sulfate [Albuterol Sulfate 2.5mg/3 mL] 1 vial NEB DAILYP PRN 07/08/17 Buspirone HCl [Buspar 15 mg Tablet] 7.5 mg PO TID 07/08/17 Citalopram Hydrobromide [Celexa 40 mg Tablet] 40 mg PO DAILY 07/08/17 Montelukast Sodium [Singulair 10 mg Tablet] 10 mg PO DAILY 07/08/17 Oxycodone HCl/Acetaminophen [Percocet 7.5-325 mg Tablet] 1 tab PO Q8HP PRN 07/08 Ropinirole HCl [Requip] 1 mg PO TID 07/08/17 Zolpidem Tartrate [Ambien 5 mg Tablet] 5 mg PO HSP PRN 07/08/17 Alprazolam [Xanax 0.5 mg Tablet] 0.5 mg PO Q8 #60 tablet 07/20/17 Fluticasone/Umeclidin/Vilanter [Trelegy 100-62.5-25 Mcg Ellipta 14 Dose/Dpi] 1 each IH DAILY 12/24/17 Promethazine HCl [Phenergan 25 mg Tablet] 25 mg PO Q6HP PRN 12/24/17 Allergies/Adverse Reactions: codeine [Codeine] Allergy (Unknown, Verified 12/24/17 01:23) erythromycin base [Erythromycin Base] Allergy (Unknown, Verified 12/24/17 01:23) Review of Systems Constitutional: PRESENT: anorexia, fatigue, weakness. ABSENT: chills Eyes: ABSENT: visual disturbances Ears: ABSENT: hearing changes Nose, Mouth, and Throat: ABSENT: sore throat Cardiovascular: ABSENT: chest pain Respiratory: PRESENT: cough, dyspnea, sputum Gastrointestinal: ABSENT: abdominal pain, hematochezia, melena, nausea, vomiting Musculoskeletal: ABSENT: back pain Integumentary: ABSENT: pruritus, rash Neurological: PRESENT: confusion - Now resolved, weakness. ABSENT: abnormal speech, tremor(s) Psychiatric: ABSENT: anxiety, depression Endocrine: ABSENT: cold intolerance, heat intolerance Hematologic/Lymphatic: ABSENT: easy bleeding, easy bruising Physical Exam Vital Signs: Temp Pulse Resp BP Pulse Ox 99.0 F 98 19 110/50 L 96 12/28/17 14:03 12/28/17 20:00 12/28/17 22:02 12/28/17 22:02 12/28/17 22:02 Intake & Output 12/27/17 12/28/17 12/29/17 06:59 06:59 06:59 Intake Total 8767 7578 5935 Output Total 2839 4085 2310 Balance -233 2847 190 Weight 61.6 kg 63.4 kg General appearance: PRESENT: mild distress - Respiratory, other - Elderly Head exam: PRESENT: atraumatic, normocephalic Eye exam: PRESENT: EOMI, PERRLA. ABSENT: scleral icterus Mouth exam: PRESENT: moist, neck supple Neck exam: ABSENT: meningismus, tenderness, thyromegaly, tracheal deviation Respiratory exam: PRESENT: rales, rhonchi, unlabored. ABSENT: chest wall tenderness, tachypnea Cardiovascular exam: PRESENT: RRR Pulses: PRESENT: normal radial pulses Vascular exam: ABSENT: pallor GI/Abdominal exam: PRESENT: soft. ABSENT: distended, firm, tenderness Rectal exam: PRESENT: deferred Extremities exam: ABSENT: clubbing Musculoskeletal exam: ABSENT: deformity Neurological exam: PRESENT: alert, awake, oriented to person, oriented to place , oriented to time, oriented to situation, CN II-XII grossly intact Psychiatric exam: ABSENT: agitated, anxious, depressed Focused psych exam: ABSENT: delusional Skin exam: ABSENT: cyanosis, erythema, jaundice Results Laboratory Results: 12/28/17 03:56 12/28/17 03:56 12/28/17 12/28/17 12/28/17 03:56 03:56 05:15 WBC 10.1 RBC 3.33 L Hgb 8.4 L Hct 27.0 L MCV 81 MCH 25.2 L MCHC 31.0 L RDW 18.4 H Plt Count 311 Seg Neutrophils % Not Reportable Lymphocytes % Not Reportable Monocytes % Not Reportable Eosinophils % Not Reportable Basophils % Not Reportable Absolute Neutrophils Not Reportable Absolute Lymphocytes Not Reportable Absolute Monocytes Not Reportable Absolute Eosinophils Not Reportable Absolute Basophils Not Reportable Carbonic Acid 1.47 H HCO3/H2CO3 Ratio 15:1 ABG pH 7.28 L ABG pCO2 48.7 H ABG pO2 81.2 ABG HCO3 22.5 ABG O2 Saturation 94.6 ABG Base Excess -4.2 FiO2 30% Sodium 149.1 H Potassium 3.5 L Chloride 113 H Carbon Dioxide 25 Anion Gap 11 BUN 19 Creatinine 1.08 Est GFR ( Amer) > 60 Est GFR (Non-Af Amer) 49 L Glucose 78 Calcium 8.4 Magnesium 2.0 Total Bilirubin 0.3 AST 19 ALT 14 Alkaline Phosphatase 61 Total Protein 6.0 L Albumin 2.7 L 12/28/17 08:56 WBC RBC Hgb Hct MCV MCH MCHC RDW Plt Count Seg Neutrophils % Lymphocytes % Monocytes % Eosinophils % Basophils % Absolute Neutrophils Absolute Lymphocytes Absolute Monocytes Absolute Eosinophils Absolute Basophils Carbonic Acid HCO3/H2CO3 Ratio ABG pH ABG pCO2 ABG pO2 ABG HCO3 ABG O2 Saturation ABG Base Excess FiO2 Sodium Potassium Chloride Carbon Dioxide Anion Gap BUN Creatinine Est GFR ( Amer) Est GFR (Non-Af Amer) Glucose Calcium Magnesium 2.0 Total Bilirubin AST ALT Alkaline Phosphatase Total Protein Albumin 12/24/17 20:50 Stool - Stool - Final 12/24/17 20:50 Stool - Stool Stool Culture - Final NO SALMONELLA, SHIGELLA, CAMPYLOBACTER, OR E.COLI 0157 RECOVERED. NEGATIVE FOR SHIGA TOXINS 1&2. 12/24/17 12/24/17 12/24/17 07:56 07:56 13:50 Creatine Kinase 228 H 151 H CK-MB (CK-2) 7.37 H Troponin I < 0.012 12/24/17 13:50 Creatine Kinase CK-MB (CK-2) 6.20 H Troponin I < 0.012 Impressions: Chest X-Ray 12/28/17 06:00 IMPRESSION: No significant change. Assessment & Plan - Diagnosis (1) Infection of venous access port Qualifiers: Encounter type: initial encounter Qualified Code(s): T80.219A - Unspecified infection due to central venous catheter, initial encounter Is this a current diagnosis for this admission?: Yes - Plan Summary Plan Summary: This is a 77-year-old female with sepsis and respiratory distress. There is concerned that her port is contributing to her difficulties. I have been consulted for removal of her Mediport. I have discussed this with the patient, and she is in agreement. Risks/benefits discussed, informed consent obtained, and all questions answered. She has very difficult IV access. I will place an ultrasound-guided 20-gauge IV in the left forearm prior to removal of the Mediport.
[2017-12-29] MEDS: IPRATROPIUM/ALBUTEROL 0.5-2.5 MG/3 ML AMPUL NEB SCH ×4 (01:49→20:44)
[2017-12-29] MEDS: PIPERACILLIN SODIUM/TAZOBACTAM 3.375 GM in NORMAL SALINE 100 ML IV SCH ×4 (02:19→21:52)
[2017-12-29] MEDS: NORMAL SALINE 1000 ML 1,000 ML IV PRN ×2 (02:19→10:47)
[2017-12-29 03:53] LABS: HEMATOCRIT 25.4 % (36.0-47.0); MEAN CORPUSCULAR HEMOGLOBIN 25.4 pg (27.0-33.4); MEAN CORPUSCULAR HGB CONC 30.6 g/dL (32.0-36.0); MEAN CORPUSCULAR VOLUME 83 fl (80-97); PLATELET COUNT 323 10^3/uL (150-450); RED BLOOD COUNT 3.07 10^6/uL (3.72-5.28); RED CELL DISTRIBUTION WIDTH 18.6 % (11.5-14.0); WHITE BLOOD COUNT 9.8 10^3/uL (4.0-10.5)
[2017-12-29 04:11] LABS: ALANINE AMINOTRANSFERASE 14 U/L (9-52); ALBUMIN 2.4 g/dL (3.5-5.0); ALKALINE PHOSPHATASE 46 U/L (38-126); ANION GAP 5 (5-19); ASPARTATE AMINO TRANSFERASE 28 U/L (14-36); BILIRUBIN,DIRECT 0.4 mg/dL (0.0-0.4); BILIRUBIN,TOTAL 0.5 mg/dL (0.2-1.3); BLOOD UREA NITROGEN 13 mg/dL (7-20); CARBON DIOXIDE 24 mmol/L (22-30); CHLORIDE 116 mmol/L (98-107); GLUCOSE 86 mg/dL (75-110); POTASSIUM 4.4 mmol/L (3.6-5.0); SODIUM 145.4 mmol/L (137-145); TOTAL PROTEIN 5.6 g/dL (6.3-8.2)
[2017-12-29 04:12] LABS: ABSOLUTE LYMPHOCYTES# (MANUAL) 2.1 10^3/uL (0.5-4.7); ABSOLUTE MONOCYTES # (MANUAL) 1.3 10^3/uL (0.1-1.4); ABSOLUTE NEUTROPHILS# (MANUAL) 6.3 10^3/uL (1.7-8.2); BAND NEUTROPHILS % (MANUAL) 2 % (3-5); BASOPHILS % (MANUAL) 0 % (0-2); EOSINOPHILS % (MANUAL) 2 % (0-6); LYMPHOCYTES % (MANUAL) 21 % (13-45); MONOCYTES % (MANUAL) 13 % (3-13); NUCLEATED RED BLOOD CELLS 1 /100 WBC (0); SEGMENTED NEUTROPHILS % (MAN) 62 % (42-78); TOTAL CELLS COUNTED 100
[2017-12-29 04:15] LABS: ANISOCYTOSIS 2+; HYPOCHROMASIA SLIGHT; PLATELET COMMENT ADEQUATE; POLYCHROMASIA SLIGHT; TOXIC VACUOLATION PRESENT
[2017-12-29 04:16] LABS: HEMOGLOBIN 7.8 g/dL (12.0-15.5)
[2017-12-29 04:17] LABS: ARTERIAL BLOOD H2CO3 1.52 mmol/L (1.05-1.35); ARTERIAL BLOOD HCO3 19.8 mmol/L (20-24); ARTERIAL BLOOD PCO2 50.5 mmHg (35-45); ARTERIAL BLOOD PH 7.21 (7.35-7.45); ARTERIAL BLOOD PO2 57.7 mmHg (80-100)
[2017-12-29 04:18] LABS: ARTERIAL BLOOD BASE EXCESS -7.7 mmol/L; ARTERIAL BLOOD FIO2 2; ARTERIAL BLOOD O2 SATURATION 83.8 % (94-98); ARTERIAL BLOOD TOTAL CO2 21.4 mmol/L (21-25)
[2017-12-29] MEDS: LACTOBACILLUS ACIDOPHILUS 250 MG TAB PO SCH ×2 (05:13→18:08)
[2017-12-29] MEDS: ALPRAZOLAM 0.25 MG TABLET PO SCH ×3 (05:13→21:53)
[2017-12-29] MEDS: LANSOPRAZOLE 15 MG TAB.RAP.DR PO SCH (05:13)
--- NOTE | 2017-12-29 06:13 | RADIOLOGY REPORT (SQ) ---
EXAM DESCRIPTION: XR CHEST 1 VIEW COMPLETED DATE/TME: 12/29/2017 06:00 CLINICAL HISTORY: 77 years Female, pna COMPARISON: One day prior. NUMBER OF VIEWS/TECHNIQUE: 1/AP FINDINGS: Bilateral lower thoracic opacity/effusion. Moderate mixed airspace and interstitial opacities. Normal cardiac silhouette size. Left cardiac stimulator with leads. No pneumothorax. Stable bony thorax. Interval absence of right miniport central line. IMPRESSION: Interval line/tube modification.
[2017-12-29 06:49] LABS: ARTERIAL BLOOD BASE EXCESS -7.9 mmol/L; ARTERIAL BLOOD FIO2 30%; ARTERIAL BLOOD H2CO3 1.51 mmol/L (1.05-1.35); ARTERIAL BLOOD HCO3 19.7 mmol/L (20-24); ARTERIAL BLOOD O2 SATURATION 94.4 % (94-98); ARTERIAL BLOOD PCO2 50.2 mmHg (35-45); ARTERIAL BLOOD PH 7.21 (7.35-7.45); ARTERIAL BLOOD PO2 85.7 mmHg (80-100); ARTERIAL BLOOD TOTAL CO2 21.2 mmol/L (21-25)
[2017-12-29] MEDS: ACETYLCYSTEINE 20% SOLN 800 MG/4 ML VIAL.NEB NEB SCH ×2 (08:39→20:44)
[2017-12-29] MEDS: CITALOPRAM HYDROBROMIDE 20 MG TABLET PO SCH (10:46)
[2017-12-29] MEDS: FLUCONAZOLE 200 MG/NS RTU 200 MG/100 ML RTUPB IV SCH (10:47)
[2017-12-29] MEDS: ACETAZOLAMIDE 250 MG TABLET PO SCH ×2 (10:47→18:08)
[2017-12-29] MEDS: VANCOMYCIN HCL 750 MG in DEXTROSE 5%-WATER 250 ML IV SCH (10:47)
[2017-12-29] MEDS: ENOXAPARIN SODIUM INJ 30 MG/0.3 ML DISP.SYRIN SUBCUT SCH (10:47)
[2017-12-29] MEDS: MONTELUKAST SODIUM 10 MG TABLET PO SCH (10:47)
[2017-12-29] MEDS ORDERED: NORMAL SALINE 1000 ML 1,000 ML IV PRN (15:17)
--- NOTE | 2017-12-29 15:22 | PDOC PROGRESS REPORT ---
Subjective Progress Note for:: 12/29/17 Subjective:: Patient denied chest pain. Remain on nasal cannula while awake and BiPAP support while sleeping. No nausea, vomiting, or abdominal pain. No reported fever or chills. Reason For Visit: SEPSIS,LEUKEMOID REACTION,LEUKEMIA/LYMPHOMA, Physical Exam Vital Signs: Temp Pulse Resp BP Pulse Ox 99.0 F 92 19 130/59 H 96 12/28/17 14:03 12/29/17 14:31 12/29/17 15:02 12/29/17 15:02 12/29/17 15:02 Intake & Output 12/28/17 12/29/17 12/30/17 06:59 06:59 06:59 Intake Total 4392 3950 1000 Output Total 1545 2485 800 Balance 2847 1465 200 Weight 63.4 kg 66 kg Physical Exam: General appearance: PRESENT: on nasal cannula and BiPAP support as indicated, thin Head exam: PRESENT: atraumatic, normocephalic Eye exam: PRESENT: conjunctiva pink, EOMI, PERRLA. ABSENT: scleral icterus Ear exam: PRESENT: normal external ear exam Mouth exam: PRESENT: moist Respiratory exam: PRESENT: crackles - scattered bilaterally, decreased breath sounds - bilaterally Cardiovascular exam: PRESENT: RRR. ABSENT: diastolic murmur, rubs, systolic murmur Vascular exam: ABSENT: pallor GI/Abdominal exam: PRESENT: normal bowel sounds, soft. ABSENT: distended, guarding, mass, organomegaly, rebound, tenderness Extremities exam: ABSENT: pedal edema Musculoskeletal exam: PRESENT: ambulatory - related to multiple joints involvement with arthritis Neurological exam: PRESENT: alert, awake, oriented to person, oriented to place , oriented to time, oriented to situation, CN II-XII grossly intact. ABSENT: motor sensory deficit Psychiatric exam: PRESENT: appropriate affect, normal mood. ABSENT: homicidal ideation, suicidal ideation Skin exam: PRESENT: dry, intact, warm. ABSENT: cyanosis, rash Results Laboratory Results: 12/29/17 03:40 12/29/17 03:40 12/29/17 12/29/17 12/29/17 03:40 03:40 04:09 WBC 9.8 RBC 3.07 L Hgb 7.8 L Hct 25.4 L MCV 83 MCH 25.4 L MCHC 30.6 L RDW 18.6 H Plt Count 323 Seg Neutrophils % Not Reportable Lymphocytes % Not Reportable Monocytes % Not Reportable Eosinophils % Not Reportable Basophils % Not Reportable Absolute Neutrophils Not Reportable Absolute Lymphocytes Not Reportable Absolute Monocytes Not Reportable Absolute Eosinophils Not Reportable Absolute Basophils Not Reportable Carbonic Acid 1.52 H HCO3/H2CO3 Ratio 13:1 ABG pH 7.21 L ABG pCO2 50.5 H ABG pO2 57.7 L ABG HCO3 19.8 L ABG O2 Saturation 83.8 L ABG Base Excess -7.7 FiO2 2 Sodium 145.4 H Potassium 4.4 Chloride 116 H Carbon Dioxide 24 Anion Gap 5 BUN 13 Creatinine 0.98 Est GFR ( Amer) > 60 Est GFR (Non-Af Amer) 55 L Glucose 86 Calcium 8.0 L Total Bilirubin 0.5 AST 28 ALT 14 Alkaline Phosphatase 46 Total Protein 5.6 L Albumin 2.4 L 12/29/17 06:41 WBC RBC Hgb Hct MCV MCH MCHC RDW Plt Count Seg Neutrophils % Lymphocytes % Monocytes % Eosinophils % Basophils % Absolute Neutrophils Absolute Lymphocytes Absolute Monocytes Absolute Eosinophils Absolute Basophils Carbonic Acid 1.51 H HCO3/H2CO3 Ratio 13:1 ABG pH 7.21 L ABG pCO2 50.2 H ABG pO2 85.7 ABG HCO3 19.7 L ABG O2 Saturation 94.4 ABG Base Excess -7.9 FiO2 30% Sodium Potassium Chloride Carbon Dioxide Anion Gap BUN Creatinine Est GFR ( Amer) Est GFR (Non-Af Amer) Glucose Calcium Total Bilirubin AST ALT Alkaline Phosphatase Total Protein Albumin 12/24/17 11:12 Blood Blood Culture - Final NO GROWTH IN 5 DAYS 12/24/17 05:23 Blood Blood Culture - Final NO GROWTH IN 5 DAYS 12/24/17 12/24/17 12/24/17 07:56 07:56 13:50 Creatine Kinase 228 H 151 H CK-MB (CK-2) 7.37 H Troponin I < 0.012 12/24/17 13:50 Creatine Kinase CK-MB (CK-2) 6.20 H Troponin I < 0.012 Impressions: Chest X-Ray 12/29/17 06:00 IMPRESSION: Interval line/tube modification. Assessment & Plan - Diagnosis (1) Acute respiratory failure Qualifiers: Respiratory failure complication: hypoxia and hypercapnia Qualified Code(s) : J96.01 - Acute respiratory failure with hypoxia; J96.02 - Acute respiratory failure with hypercapnia; J96.02 - Acute respiratory failure with hypercapnia; J96.02 - Acute respiratory failure with hypercapnia Is this a current diagnosis for this admission?: Yes (2) Lobar pneumonia, unspecified organism Is this a current diagnosis for this admission?: Yes (3) Chronic respiratory failure with hypoxia and hypercapnia Is this a current diagnosis for this admission?: Yes (4) History of pulmonary embolus (PE) Is this a current diagnosis for this admission?: Yes (5) H/O cardiac pacemaker Is this a current diagnosis for this admission?: Yes - Time Time Spent with patient: 25-34 minutes Medications reviewed and adjusted accordingly: Yes Anticipated discharge: Home with Homehealth Within: Other - Inpatient Certification Based on my medical assessment, after consideration of the patient's comorbidities, presenting symptoms, or acuity I expect that the services needed warrant INPATIENT care.: Yes I certify that my determination is in accordance with my understanding of Medicare's requirements for reasonable and necessary INPATIENT services [42 CFR 412.3e].: Yes Medical Necessity: Need Close Monitoring Due to Risk of Patient Decompensation, Need For IV Fluids, Need For Continuous Telemetry Monitoring, Need for Nebulizer Therapy and Monitoring of Response, Need for IV Antibiotics, Risk of Complication if Not Cared For in Hospital Post Hospital Care: D/C [employer] 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 Decrease IV fluid rate to 75mL/hour. Follow up on am labs she may need PRBC transfusion if Hgb continue downward trend. Obtain stool guaiac test.
[2017-12-29] MEDS: OXYCODONE-ACETAMINOPHEN 5-325 MG TABLET PO PRN (21:52)
[2017-12-29] MEDS: OXYCODONE HCL IR 5 MG TABLET PO PRN (21:53)
[2017-12-29] MEDS: MELATONIN 3 MG TABLET PO SCH (21:54)
[2017-12-30] MEDS: IPRATROPIUM/ALBUTEROL 0.5-2.5 MG/3 ML AMPUL NEB SCH ×4 (02:53→20:59)
[2017-12-30] MEDS: PIPERACILLIN SODIUM/TAZOBACTAM 3.375 GM in NORMAL SALINE 100 ML IV SCH ×4 (03:50→21:29)
[2017-12-30 04:33] LABS: HEMATOCRIT 27.1 % (36.0-47.0); HEMOGLOBIN 8.3 g/dL (12.0-15.5); MEAN CORPUSCULAR HEMOGLOBIN 25.6 pg (27.0-33.4); MEAN CORPUSCULAR HGB CONC 30.7 g/dL (32.0-36.0); MEAN CORPUSCULAR VOLUME 83 fl (80-97); PLATELET COUNT 413 10^3/uL (150-450); RED BLOOD COUNT 3.25 10^6/uL (3.72-5.28); RED CELL DISTRIBUTION WIDTH 18.7 % (11.5-14.0)
[2017-12-30 04:51] LABS: ALANINE AMINOTRANSFERASE 12 U/L (9-52); ALBUMIN 2.3 g/dL (3.5-5.0); ALKALINE PHOSPHATASE 70 U/L (38-126); ANION GAP 11 (5-19); ASPARTATE AMINO TRANSFERASE 17 U/L (14-36); BLOOD UREA NITROGEN 9 mg/dL (7-20); CARBON DIOXIDE 19 mmol/L (22-30); CHLORIDE 114 mmol/L (98-107); GLUCOSE 101 mg/dL (75-110); POTASSIUM 4.1 mmol/L (3.6-5.0); SODIUM 143.7 mmol/L (137-145); TOTAL PROTEIN 5.2 g/dL (6.3-8.2)
[2017-12-30 04:52] LABS: BILIRUBIN,TOTAL < 0.1 mg/dL (0.2-1.3)
[2017-12-30 05:22] LABS: ABSOLUTE MONOCYTES # (MANUAL) 1.2 10^3/uL (0.1-1.4); ABSOLUTE NEUTROPHILS# (MANUAL) 6.6 10^3/uL (1.7-8.2); BAND NEUTROPHILS % (MANUAL) 2 % (3-5); BASOPHILS % (MANUAL) 0 % (0-2); EOSINOPHILS % (MANUAL) 2 % (0-6); LYMPHOCYTES % (MANUAL) 20 % (13-45); METAMYELOCYTES % (MANUAL) 1 % (0); MONOCYTES % (MANUAL) 12 % (3-13); NUCLEATED RED BLOOD CELLS 1 /100 WBC (0); SEGMENTED NEUTROPHILS % (MAN) 63 % (42-78); TOTAL CELLS COUNTED 100
[2017-12-30 05:23] LABS: ANISOCYTOSIS 2+; BURR CELLS 1+; PAPPENHEIMER BODIES PRESENT; PLATELET COMMENT ADEQUATE; PLATELET LARGE PRESENT; POIKILOCYTOSIS 1+; POLYCHROMASIA SLIGHT; SCHISTOCYTES SLIGHT; TEAR DROP CELLS 1+
[2017-12-30 05:24] LABS: ARTERIAL BLOOD BASE EXCESS -7.7 mmol/L; ARTERIAL BLOOD FIO2 30%; ARTERIAL BLOOD H2CO3 1.39 mmol/L (1.05-1.35); ARTERIAL BLOOD HCO3 19.3 mmol/L (20-24); ARTERIAL BLOOD O2 SATURATION 93.7 % (94-98); ARTERIAL BLOOD PCO2 46.1 mmHg (35-45); ARTERIAL BLOOD PH 7.24 (7.35-7.45); ARTERIAL BLOOD TOTAL CO2 20.7 mmol/L (21-25)
[2017-12-30] MEDS: LANSOPRAZOLE 15 MG TAB.RAP.DR PO SCH (05:41)
[2017-12-30] MEDS: LACTOBACILLUS ACIDOPHILUS 250 MG TAB PO SCH ×2 (05:41→17:59)
[2017-12-30] MEDS: ALPRAZOLAM 0.25 MG TABLET PO SCH ×3 (05:41→21:29)
--- NOTE | 2017-12-30 06:53 | RADIOLOGY REPORT (SQ) ---
EXAM DESCRIPTION: XR CHEST 1 VIEW COMPLETED DATE/TME: 12/30/2017 06:00 CLINICAL HISTORY: 77 years Female, pna resp failure COMPARISON: One day prior. NUMBER OF VIEWS/TECHNIQUE: 1/AP FINDINGS: Moderate opacity-effusion of the left lower hemithorax, small right basilar opacity-effusion. Mild interstitial markings.Atherosclerosis. Left chest tube. Likely normal cardiac silhouette size partially obscured. No pneumothorax. Stable bony thorax. IMPRESSION: No significant change.
[2017-12-30] MEDS: ACETYLCYSTEINE 20% SOLN 800 MG/4 ML VIAL.NEB NEB SCH ×2 (08:43→20:58)
[2017-12-30] MEDS: VANCOMYCIN HCL 750 MG in DEXTROSE 5%-WATER 250 ML IV SCH (09:45)
[2017-12-30] MEDS: FLUCONAZOLE 200 MG/NS RTU 200 MG/100 ML RTUPB IV SCH (09:45)
[2017-12-30] MEDS: ACETAZOLAMIDE 250 MG TABLET PO SCH ×2 (09:45→17:59)
[2017-12-30] MEDS: CITALOPRAM HYDROBROMIDE 20 MG TABLET PO SCH (09:45)
[2017-12-30] MEDS: MONTELUKAST SODIUM 10 MG TABLET PO SCH (09:47)
[2017-12-30 10:28] LABS: VANCOMYCIN,TROUGH 11.1 ug/mL (5.0-20.0)
[2017-12-30] MEDS: SODIUM BICARBONATE 650 MG TABLET PO SCH ×2 (12:44→21:29)
[2017-12-30] MEDS: 1/2 NORMAL SALINE 1,000 ML IV PRN (12:44)
[2017-12-30] MEDS: ENOXAPARIN SODIUM INJ 30 MG/0.3 ML DISP.SYRIN SUBCUT SCH (12:46)
[2017-12-30] MEDS: OXYCODONE-ACETAMINOPHEN 5-325 MG TABLET PO PRN (14:33)
[2017-12-30] MEDS: OXYCODONE HCL IR 5 MG TABLET PO PRN (14:33)
--- NOTE | 2017-12-30 14:39 | PDOC PROGRESS REPORT ---
Subjective Progress Note for:: 12/30/17 Subjective:: Patient was admitted for the respiratory failure and lobar pneumonia Currently on IV antibiotic Patient is alert awake denied any chest pain denies shortness of the breath Denied any abdominal pain Patient still have a loose stool Patient's C. difficile was negative Reason For Visit: SEPSIS,LEUKEMOID REACTION,LEUKEMIA/LYMPHOMA, Physical Exam Vital Signs: Temp Pulse Resp BP Pulse Ox 99.0 F 94 23 H 127/59 H 100 12/28/17 14:03 12/30/17 13:57 12/30/17 14:03 12/30/17 14:03 12/30/17 14:03 Intake & Output 12/29/17 12/30/17 12/31/17 06:59 06:59 06:59 Intake Total 3950 2150 400 Output Total 2560 3325 1725 Balance 1390 -1175 -1325 Weight 66 kg 66.2 kg General appearance: PRESENT: no acute distress, well-developed, well-nourished Head exam: PRESENT: atraumatic, normocephalic Eye exam: PRESENT: conjunctiva pink, EOMI, PERRLA. ABSENT: scleral icterus Ear exam: PRESENT: normal external ear exam Mouth exam: PRESENT: moist, tongue midline Neck exam: PRESENT: full ROM. ABSENT: carotid bruit, JVD, lymphadenopathy, thyromegaly Respiratory exam: PRESENT: decreased breath sounds Cardiovascular exam: PRESENT: RRR. ABSENT: diastolic murmur, rubs, systolic murmur Pulses: PRESENT: normal dorsalis pedis pul, +2 pedal pulses bilateral Vascular exam: PRESENT: normal capillary refill GI/Abdominal exam: PRESENT: normal bowel sounds, soft. ABSENT: distended, guarding, mass, organolmegaly, rebound, tenderness Rectal exam: PRESENT: deferred Extremities exam: ABSENT: pedal edema Neurological exam: PRESENT: alert, awake, oriented to person, oriented to place , oriented to time, oriented to situation, CN II-XII grossly intact. ABSENT: motor sensory deficit Psychiatric exam: PRESENT: appropriate affect, normal mood. ABSENT: homicidal ideation, suicidal ideation Skin exam: PRESENT: dry, intact, warm. ABSENT: cyanosis, rash Results Laboratory Results: 12/30/17 04:13 12/30/17 09:45 12/30/17 12/30/17 12/30/17 04:13 04:13 05:19 WBC 10.0 RBC 3.25 L Hgb 8.3 L Hct 27.1 L MCV 83 MCH 25.6 L MCHC 30.7 L RDW 18.7 H Plt Count 413 Seg Neutrophils % Not Reportable Lymphocytes % Not Reportable Monocytes % Not Reportable Eosinophils % Not Reportable Basophils % Not Reportable Absolute Neutrophils Not Reportable Absolute Lymphocytes Not Reportable Absolute Monocytes Not Reportable Absolute Eosinophils Not Reportable Absolute Basophils Not Reportable Carbonic Acid 1.39 H HCO3/H2CO3 Ratio 13:1 ABG pH 7.24 L ABG pCO2 46.1 H ABG pO2 80.0 ABG HCO3 19.3 L ABG O2 Saturation 93.7 L ABG Base Excess -7.7 FiO2 30% Sodium 143.7 Potassium 4.1 Chloride 114 H Carbon Dioxide 19 L Anion Gap 11 BUN 9 Creatinine 0.97 Est GFR ( Amer) > 60 Est GFR (Non-Af Amer) 56 L Glucose 101 Calcium 8.0 L Magnesium 1.8 Total Bilirubin < 0.1 L AST 17 ALT 12 Alkaline Phosphatase 70 Total Protein 5.2 L Albumin 2.3 L 12/30/17 09:45 WBC RBC Hgb Hct MCV MCH MCHC RDW Plt Count Seg Neutrophils % Lymphocytes % Monocytes % Eosinophils % Basophils % Absolute Neutrophils Absolute Lymphocytes Absolute Monocytes Absolute Eosinophils Absolute Basophils Carbonic Acid HCO3/H2CO3 Ratio ABG pH ABG pCO2 ABG pO2 ABG HCO3 ABG O2 Saturation ABG Base Excess FiO2 Sodium Potassium Chloride Carbon Dioxide Anion Gap BUN Creatinine 1.00 Est GFR ( Amer) > 60 Est GFR (Non-Af Amer) 54 L Glucose Calcium Magnesium Total Bilirubin AST ALT Alkaline Phosphatase Total Protein Albumin 12/24/17 11:12 Blood Blood Culture - Final NO GROWTH IN 5 DAYS 12/24/17 12/24/17 12/24/17 07:56 07:56 13:50 Creatine Kinase 228 H 151 H CK-MB (CK-2) 7.37 H Troponin I < 0.012 12/24/17 13:50 Creatine Kinase CK-MB (CK-2) 6.20 H Troponin I < 0.012 Impressions: Chest X-Ray 12/30/17 06:00 IMPRESSION: No significant change. Assessment & Plan - Diagnosis (1) Acute respiratory failure Qualifiers: Respiratory failure complication: hypoxia and hypercapnia Qualified Code(s) : J96.01 - Acute respiratory failure with hypoxia; J96.02 - Acute respiratory failure with hypercapnia; J96.02 - Acute respiratory failure with hypercapnia; J96.02 - Acute respiratory failure with hypercapnia Is this a current diagnosis for this admission?: Yes (2) History of pulmonary embolus (PE) Is this a current diagnosis for this admission?: Yes (3) Pneumonia Qualifiers: Pneumonia type: due to unspecified organism Laterality: left Lung location: unspecified part of lung Qualified Code(s): J18.9 - Pneumonia, unspecified organism Is this a current diagnosis for this admission?: Yes (4) CAD (coronary artery disease) Qualifiers: Coronary Disease-Associated Artery/Lesion type: nez perce artery Associated angina: without angina Is this a current diagnosis for this admission?: Yes (5) COPD (chronic obstructive pulmonary disease) Qualifiers: COPD type: COPD with acute exacerbation Qualified Code(s): J44.1 - Chronic obstructive pulmonary disease with (acute) exacerbation Is this a current diagnosis for this admission?: Yes - Time Time Spent with patient: 25-34 minutes Total Critical Time (Minutes): 25 Medications reviewed and adjusted accordingly: Yes Anticipated discharge: SNF Within: Other - Inpatient Certification I certify that my determination is in accordance with my understanding of Medicare's requirements for reasonable and necessary INPATIENT services [42 CFR 412.3e].: Yes Medical Necessity: Need Close Monitoring Due to Risk of Patient Decompensation, Need For IV Fluids, Need for IV Antibiotics Post Hospital Care: D/C 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 difficile
[2017-12-30] MEDS: MELATONIN 3 MG TABLET PO SCH (21:29)
[2017-12-31] MEDS: IPRATROPIUM/ALBUTEROL 0.5-2.5 MG/3 ML AMPUL NEB SCH ×4 (02:31→20:34)
[2017-12-31] MEDS: 1/2 NORMAL SALINE 1,000 ML IV PRN ×2 (03:00→21:30)
[2017-12-31] MEDS: PIPERACILLIN SODIUM/TAZOBACTAM 3.375 GM in NORMAL SALINE 100 ML IV SCH (03:00)
[2017-12-31 04:00] LABS: HEMATOCRIT 26.4 % (36.0-47.0); HEMOGLOBIN 8.1 g/dL (12.0-15.5); MEAN CORPUSCULAR HEMOGLOBIN 25.4 pg (27.0-33.4); MEAN CORPUSCULAR HGB CONC 30.8 g/dL (32.0-36.0); MEAN CORPUSCULAR VOLUME 82 fl (80-97); PLATELET COUNT 477 10^3/uL (150-450); RED BLOOD COUNT 3.21 10^6/uL (3.72-5.28); WHITE BLOOD COUNT 10.9 10^3/uL (4.0-10.5)
[2017-12-31 04:21] LABS: ALANINE AMINOTRANSFERASE 15 U/L (9-52); ALBUMIN 2.3 g/dL (3.5-5.0); ALKALINE PHOSPHATASE 66 U/L (38-126); ANION GAP 9 (5-19); ASPARTATE AMINO TRANSFERASE 14 U/L (14-36); BLOOD UREA NITROGEN 10 mg/dL (7-20); CALCIUM 7.9 mg/dL (8.4-10.2); CARBON DIOXIDE 22 mmol/L (22-30); CHLORIDE 114 mmol/L (98-107); GLUCOSE 119 mg/dL (75-110); POTASSIUM 3.8 mmol/L (3.6-5.0); SODIUM 145.1 mmol/L (137-145)
[2017-12-31 04:22] LABS: BILIRUBIN,TOTAL < 0.1 mg/dL (0.2-1.3)
[2017-12-31 04:25] LABS: ABSOLUTE MONOCYTES # (MANUAL) 0.8 10^3/uL (0.1-1.4); ABSOLUTE NEUTROPHILS# (MANUAL) 7.4 10^3/uL (1.7-8.2); BAND NEUTROPHILS % (MANUAL) 5 % (3-5); BASOPHILS % (MANUAL) 0 % (0-2); EOSINOPHILS % (MANUAL) 7 % (0-6); LYMPHOCYTES % (MANUAL) 18 % (13-45); METAMYELOCYTES % (MANUAL) 2 % (0); MONOCYTES % (MANUAL) 7 % (3-13); SEGMENTED NEUTROPHILS % (MAN) 61 % (42-78); TOTAL CELLS COUNTED 100
[2017-12-31 04:26] LABS: ANISOCYTOSIS 2+; HYPOCHROMASIA SLIGHT; PLATELET COMMENT INCREASED; POIKILOCYTOSIS SLIGHT; POLYCHROMASIA SLIGHT; SCHISTOCYTES SLIGHT; TOXIC GRANULATION SLIGHT; TOXIC VACUOLATION PRESENT
[2017-12-31 04:42] LABS: ARTERIAL BLOOD BASE EXCESS -1.3 mmol/L; ARTERIAL BLOOD H2CO3 1.63 mmol/L (1.05-1.35); ARTERIAL BLOOD HCO3 25.6 mmol/L (20-24); ARTERIAL BLOOD O2 SATURATION 91.5 % (94-98); ARTERIAL BLOOD PCO2 54.2 mmHg (35-45); ARTERIAL BLOOD PH 7.29 (7.35-7.45); ARTERIAL BLOOD PO2 68.8 mmHg (80-100); ARTERIAL BLOOD TOTAL CO2 27.3 mmol/L (21-25)
[2017-12-31 04:43] LABS: ARTERIAL BLOOD FIO2 3
[2017-12-31] MEDS: LACTOBACILLUS ACIDOPHILUS 250 MG TAB PO SCH ×2 (05:27→18:12)
[2017-12-31] MEDS: ALPRAZOLAM 0.25 MG TABLET PO SCH ×3 (05:27→21:29)
[2017-12-31] MEDS: LANSOPRAZOLE 15 MG TAB.RAP.DR PO SCH (05:27)
--- NOTE | 2017-12-31 06:40 | RADIOLOGY REPORT (SQ) ---
EXAM DESCRIPTION: XR CHEST 1 VIEW COMPLETED DATE/TME: 12/31/2017 06:00 CLINICAL HISTORY: 77 years Female, pna/resp failure COMPARISON: One day prior. NUMBER OF VIEWS/TECHNIQUE: 1/AP FINDINGS: Moderate opacity-effusion of the left lower hemithorax, small right basilar opacity-effusion, mild diffuse fibrosis pattern.Atherosclerosis. Left cardiac stimulator with leads. Normal cardiac silhouette size. No pneumothorax. Stable bony thorax. IMPRESSION: No significant change.
[2017-12-31] MEDS: ACETYLCYSTEINE 20% SOLN 800 MG/4 ML VIAL.NEB NEB SCH ×2 (08:36→20:34)
--- NOTE | 2017-12-31 09:22 | RADIOLOGY REPORT (SQ) ---
EXAM DESCRIPTION: U/S CHEST COMPLETED DATE/TIME: 12/31/2017 9:03 am REASON FOR STUDY: check fluid volume for potential thoracentesis COMPARISON: CT CHEST 07/17/2017 MULTIPLE CHEST FILMS 07/17/2017, 12/28/2017, 12/29/2017, 12/30/2017, 12/31/2017 TECHNIQUE: Portable ultrasound in the ICU was performed, to evaluate for pleural effusion bilaterall y LIMITATIONS: None. FINDINGS: On the right side, no significant pleural effusion is present. On the left side, a very small amount of fluid is present at the left lung base with adjacent collaps e, consolidated left lower lobe. IMPRESSION: No significant right pleural effusion. Very small left pleural effusion, consolidation left lower lobe. TECHNICAL DOCUMENTATION: JOB ID: [id number] [employer]- All Rights Reserved Reading location - IP/workstation name: [email or web address]
--- NOTE | 2017-12-31 09:35 | PDOC PROGRESS REPORT ---
Subjective Progress Note for:: 12/31/17 Subjective:: Patient is currently doing same Patient's chest x-ray suggests the pleural effusion but the chest ultrasound did not show any significant fluid for any interventions Patient still have a puffy upper extremity and lower extremity Still on a BiPAP on and off Patient is denied any chest pain Still very poor p.o. intake Reason For Visit: SEPSIS,LEUKEMOID REACTION,LEUKEMIA/LYMPHOMA, Physical Exam Vital Signs: Temp Pulse Resp BP Pulse Ox 99.5 F 104 H 19 154/76 H 92 12/31/17 04:00 12/31/17 08:42 12/31/17 08:42 12/31/17 06:04 12/31/17 08:42 Intake & Output 12/30/17 12/31/17 01/01/18 06:59 06:59 06:59 Intake Total 2150 3300 Output Total 3325 4150 700 Balance -1175 -850 -700 Weight 66.2 kg 63.4 kg General appearance: PRESENT: no acute distress, well-developed, well-nourished Head exam: PRESENT: atraumatic, normocephalic Eye exam: PRESENT: conjunctiva pink, EOMI, PERRLA. ABSENT: scleral icterus Ear exam: PRESENT: normal external ear exam Mouth exam: PRESENT: moist, tongue midline Neck exam: PRESENT: full ROM. ABSENT: carotid bruit, JVD, lymphadenopathy, thyromegaly Respiratory exam: PRESENT: decreased breath sounds Cardiovascular exam: PRESENT: RRR. ABSENT: diastolic murmur, rubs, systolic murmur Pulses: PRESENT: normal dorsalis pedis pul, +2 pedal pulses bilateral Vascular exam: PRESENT: normal capillary refill GI/Abdominal exam: PRESENT: normal bowel sounds, soft. ABSENT: distended, guarding, mass, organolmegaly, rebound, tenderness Rectal exam: PRESENT: deferred Extremities exam: PRESENT: pedal edema Neurological exam: PRESENT: alert, awake, oriented to person, oriented to place. ABSENT: motor sensory deficit Psychiatric exam: PRESENT: appropriate affect, normal mood. ABSENT: homicidal ideation, suicidal ideation Skin exam: PRESENT: dry, intact, warm. ABSENT: cyanosis, rash Results Laboratory Results: 12/31/17 03:48 12/31/17 03:48 12/30/17 12/31/17 12/31/17 09:45 03:48 03:48 WBC 10.9 H RBC 3.21 L Hgb 8.1 L Hct 26.4 L MCV 82 MCH 25.4 L MCHC 30.8 L RDW 19.0 H Plt Count 477 H Seg Neutrophils % Not Reportable Lymphocytes % Not Reportable Monocytes % Not Reportable Eosinophils % Not Reportable Basophils % Not Reportable Absolute Neutrophils Not Reportable Absolute Lymphocytes Not Reportable Absolute Monocytes Not Reportable Absolute Eosinophils Not Reportable Absolute Basophils Not Reportable Carbonic Acid HCO3/H2CO3 Ratio ABG pH ABG pCO2 ABG pO2 ABG HCO3 ABG O2 Saturation ABG Base Excess FiO2 Sodium 145.1 H Potassium 3.8 Chloride 114 H Carbon Dioxide 22 Anion Gap 9 BUN 10 Creatinine 1.00 0.93 Est GFR ( Amer) > 60 > 60 Est GFR (Non-Af Amer) 54 L 59 L Glucose 119 H Calcium 7.9 L Magnesium 1.7 Total Bilirubin < 0.1 L AST 14 ALT 15 Alkaline Phosphatase 66 Total Protein 5.0 L Albumin 2.3 L 12/31/17 04:26 WBC RBC Hgb Hct MCV MCH MCHC RDW Plt Count Seg Neutrophils % Lymphocytes % Monocytes % Eosinophils % Basophils % Absolute Neutrophils Absolute Lymphocytes Absolute Monocytes Absolute Eosinophils Absolute Basophils Carbonic Acid 1.63 H HCO3/H2CO3 Ratio 15:1 ABG pH 7.29 L ABG pCO2 54.2 H ABG pO2 68.8 L ABG HCO3 25.6 H ABG O2 Saturation 91.5 L ABG Base Excess -1.3 FiO2 3 Sodium Potassium Chloride Carbon Dioxide Anion Gap BUN Creatinine Est GFR ( Amer) Est GFR (Non-Af Amer) Glucose Calcium Magnesium Total Bilirubin AST ALT Alkaline Phosphatase Total Protein Albumin 12/24/17 12/24/17 12/24/17 07:56 07:56 13:50 Creatine Kinase 228 H 151 H CK-MB (CK-2) 7.37 H Troponin I < 0.012 12/24/17 13:50 Creatine Kinase CK-MB (CK-2) 6.20 H Troponin I < 0.012 Impressions: Chest Ultrasound 12/31/17 00:00 IMPRESSION: No significant right pleural effusion. Very small left pleural effusion, consolidation left lower lobe. Chest X-Ray 12/31/17 06:00 IMPRESSION: No significant change. Assessment & Plan - Diagnosis (1) Acute respiratory failure Qualifiers: Respiratory failure complication: hypoxia and hypercapnia Qualified Code(s) : J96.01 - Acute respiratory failure with hypoxia; J96.02 - Acute respiratory failure with hypercapnia; J96.02 - Acute respiratory failure with hypercapnia; J96.02 - Acute respiratory failure with hypercapnia Is this a current diagnosis for this admission?: Yes (2) History of pulmonary embolus (PE) Is this a current diagnosis for this admission?: Yes (3) Pneumonia Qualifiers: Pneumonia type: due to unspecified organism Laterality: left Lung location: unspecified part of lung Qualified Code(s): J18.9 - Pneumonia, unspecified organism Is this a current diagnosis for this admission?: Yes (4) CAD (coronary artery disease) Qualifiers: Coronary Disease-Associated Artery/Lesion type: [place] artery Associated angina: without angina Is this a current diagnosis for this admission?: Yes (5) COPD (chronic obstructive pulmonary disease) Qualifiers: COPD type: COPD with acute exacerbation Qualified Code(s): J44.1 - Chronic obstructive pulmonary disease with (acute) exacerbation Is this a current diagnosis for this admission?: Yes - Time Time Spent with patient: 15-24 minutes Medications reviewed and adjusted accordingly: Yes Anticipated discharge: Other Within: Other - Inpatient Certification I certify that my determination is in accordance with my understanding of Medicare's requirements for reasonable and necessary INPATIENT services [42 CFR 412.3e].: Yes Medical Necessity: Significant Comorbidiites Make Outpatient Treatment Too Risky , Need Close Monitoring Due to Risk of Patient Decompensation, Need for IV Antibiotics Post Hospital Care: D/C [facility] Documentation - Plan Summary Plan Summary: Will continues to IV antibiotic follow-up with the pulmonary Will give Lasix 10 mg IV daily to the peripheral edema
[2017-12-31] MEDS: VANCOMYCIN HCL 1,000 MG in DEXTROSE 5%-WATER 250 ML IV SCH (10:40)
[2017-12-31] MEDS: FUROSEMIDE INJ/PF 20 MG/2 ML SDV IV SCH ×2 (10:41→21:29)
[2017-12-31] MEDS: FLUCONAZOLE 200 MG/NS RTU 200 MG/100 ML RTUPB IV SCH (10:41)
[2017-12-31] MEDS: ACETAZOLAMIDE 250 MG TABLET PO SCH ×2 (10:42→18:12)
[2017-12-31] MEDS: SODIUM BICARBONATE 650 MG TABLET PO SCH ×2 (10:42→21:29)
[2017-12-31] MEDS: MONTELUKAST SODIUM 10 MG TABLET PO SCH (10:42)
[2017-12-31] MEDS: CITALOPRAM HYDROBROMIDE 20 MG TABLET PO SCH (10:42)
[2017-12-31] MEDS: ENOXAPARIN SODIUM INJ 30 MG/0.3 ML DISP.SYRIN SUBCUT SCH (10:43)
--- NOTE | 2017-12-31 12:14 | PDOC PROGRESS REPORT ---
Subjective Progress Note for:: 12/28/17 Subjective:: Little bit better Reason For Visit: SEPSIS,LEUKEMOID REACTION,LEUKEMIA/LYMPHOMA, Physical Exam Vital Signs: Temp Pulse Resp BP Pulse Ox 98.1 F 93 20 119/52 L 99 12/28/17 07:55 12/28/17 08:31 12/28/17 08:31 12/28/17 07:55 12/28/17 08:31 Intake & Output 12/27/17 12/28/17 12/29/17 06:59 06:59 06:59 Intake Total 2602 3942 Output Total 2835 1545 100 Balance -233 2397 -100 Weight 61.6 kg 63.4 kg General appearance: PRESENT: no acute distress, cooperative, disheveled Head exam: PRESENT: atraumatic, normocephalic Eye exam: PRESENT: conjunctiva pale, EOMI. ABSENT: nystagmus, periorbital swelling, scleral icterus Mouth exam: PRESENT: dry mucosa, neck supple, tongue midline Neck exam: ABSENT: carotid bruit, JVD, lymphadenopathy, thyromegaly, tracheal deviation, tracheostomy Respiratory exam: PRESENT: decreased breath sounds, prolonged expiratory phas, rales, rhonchi, tachypnea, unlabored. ABSENT: retraction, stridor Cardiovascular exam: PRESENT: irregular rhythm Pulses: PRESENT: normal radial pulses GI/Abdominal exam: PRESENT: soft. ABSENT: tenderness Gentrourinary exam: PRESENT: indwelling catheter Extremities exam: PRESENT: pedal edema. ABSENT: calf tenderness, clubbing, joint swelling Musculoskeletal exam: ABSENT: ambulatory, deformity, dislocation Neurological exam: PRESENT: alert, awake Psychiatric exam: PRESENT: flat affect Skin exam: PRESENT: dry, warm Results Laboratory Results: 12/28/17 03:56 12/28/17 03:56 12/27/17 12/28/17 12/28/17 13:00 03:56 03:56 WBC 10.1 RBC 3.33 L Hgb 8.4 L Hct 27.0 L MCV 81 MCH 25.2 L MCHC 31.0 L RDW 18.4 H Plt Count 311 Seg Neutrophils % Not Reportable Lymphocytes % Not Reportable Monocytes % Not Reportable Eosinophils % Not Reportable Basophils % Not Reportable Absolute Neutrophils Not Reportable Absolute Lymphocytes Not Reportable Absolute Monocytes Not Reportable Absolute Eosinophils Not Reportable Absolute Basophils Not Reportable Carbonic Acid 1.55 H HCO3/H2CO3 Ratio 14:1 ABG pH 7.27 L ABG pCO2 51.6 H ABG pO2 81.8 ABG HCO3 23.2 ABG O2 Saturation 94.5 ABG Base Excess -3.7 FiO2 30% Sodium 149.1 H Potassium 3.5 L Chloride 113 H Carbon Dioxide 25 Anion Gap 11 BUN 19 Creatinine 1.08 Est GFR ( Amer) > 60 Est GFR (Non-Af Amer) 49 L Glucose 78 Calcium 8.4 Magnesium 2.0 Total Bilirubin 0.3 AST 19 ALT 14 Alkaline Phosphatase 61 Total Protein 6.0 L Albumin 2.7 L 12/28/17 05:15 WBC RBC Hgb Hct MCV MCH MCHC RDW Plt Count Seg Neutrophils % Lymphocytes % Monocytes % Eosinophils % Basophils % Absolute Neutrophils Absolute Lymphocytes Absolute Monocytes Absolute Eosinophils Absolute Basophils Carbonic Acid 1.47 H HCO3/H2CO3 Ratio 15:1 ABG pH 7.28 L ABG pCO2 48.7 H ABG pO2 81.2 ABG HCO3 22.5 ABG O2 Saturation 94.6 ABG Base Excess -4.2 FiO2 30% Sodium Potassium Chloride Carbon Dioxide Anion Gap BUN Creatinine Est GFR ( Amer) Est GFR (Non-Af Amer) Glucose Calcium Magnesium Total Bilirubin AST ALT Alkaline Phosphatase Total Protein Albumin 12/24/17 20:50 Stool - Stool - Final 12/24/17 20:50 Stool - Stool Stool Culture - Final NO SALMONELLA, SHIGELLA, CAMPYLOBACTER, OR E.COLI 0157 RECOVERED. NEGATIVE FOR SHIGA TOXINS 1&2. 12/24/17 12/24/17 12/24/17 07:56 07:56 13:50 Creatine Kinase 228 H 151 H CK-MB (CK-2) 7.37 H Troponin I < 0.012 12/24/17 13:50 Creatine Kinase CK-MB (CK-2) 6.20 H Troponin I < 0.012 Impressions: Chest X-Ray 12/28/17 06:00 IMPRESSION: No significant change. Assessment & Plan - Diagnosis (1) Acute respiratory failure Qualifiers: Respiratory failure complication: hypoxia and hypercapnia Qualified Code(s) : J96.01 - Acute respiratory failure with hypoxia; J96.02 - Acute respiratory failure with hypercapnia; J96.02 - Acute respiratory failure with hypercapnia; J96.02 - Acute respiratory failure with hypercapnia Is this a current diagnosis for this admission?: Yes Plan: primarily BiPAP with high flow oxygen as a respite as the latter is more comfortable (2) Bandemia Is this a current diagnosis for this admission?: No (3) Metabolic acidosis Is this a current diagnosis for this admission?: Yes Plan: Improving but no renal comp for resp acidosis (4) Pneumonia Qualifiers: Pneumonia type: due to unspecified organism Laterality: left Lung location: unspecified part of lung Qualified Code(s): J18.9 - Pneumonia, unspecified organism Is this a current diagnosis for this admission?: Yes Plan: wbc wnl (5) Septic shock Is this a current diagnosis for this admission?: No (6) GERD (gastroesophageal reflux disease) Qualifiers: Is this a current diagnosis for this admission?: Yes Plan: H2 logan - Time Total Critical Time (Minutes): 45
--- NOTE | 2017-12-31 12:19 | PDOC PROGRESS REPORT ---
Subjective Progress Note for:: 12/29/17 Subjective:: Increase alertness today Reason For Visit: SEPSIS,LEUKEMOID REACTION,LEUKEMIA/LYMPHOMA, Physical Exam Vital Signs: Temp Pulse Resp BP Pulse Ox 99.0 F 87 17 129/56 H 97 12/28/17 14:03 12/29/17 08:00 12/29/17 10:02 12/29/17 10:02 12/29/17 10:02 Intake & Output 12/28/17 12/29/17 12/30/17 06:59 06:59 06:59 Intake Total 4392 3600 Output Total 1545 2485 400 Balance 2847 1115 -400 Weight 63.4 kg 66 kg General appearance: PRESENT: no acute distress, cooperative, disheveled, well- developed, well-nourished Head exam: PRESENT: atraumatic, normocephalic Eye exam: PRESENT: conjunctiva pale. ABSENT: nystagmus, periorbital swelling Mouth exam: PRESENT: dry mucosa, neck supple, tongue midline Neck exam: ABSENT: carotid bruit, JVD, lymphadenopathy, thyromegaly, tracheal deviation, tracheostomy Respiratory exam: PRESENT: decreased breath sounds, prolonged expiratory phas, rales, rhonchi, tachypnea, unlabored. ABSENT: retraction, stridor Cardiovascular exam: PRESENT: irregular rhythm Pulses: PRESENT: normal radial pulses GI/Abdominal exam: PRESENT: soft. ABSENT: tenderness Gentrourinary exam: PRESENT: indwelling catheter Extremities exam: PRESENT: pedal edema. ABSENT: calf tenderness, clubbing, joint swelling Musculoskeletal exam: ABSENT: ambulatory, deformity, dislocation Neurological exam: PRESENT: alert, awake Psychiatric exam: PRESENT: flat affect Skin exam: PRESENT: warm Results Laboratory Results: 12/29/17 03:40 12/29/17 03:40 12/29/17 12/29/17 12/29/17 03:40 03:40 04:09 WBC 9.8 RBC 3.07 L Hgb 7.8 L Hct 25.4 L MCV 83 MCH 25.4 L MCHC 30.6 L RDW 18.6 H Plt Count 323 Seg Neutrophils % Not Reportable Lymphocytes % Not Reportable Monocytes % Not Reportable Eosinophils % Not Reportable Basophils % Not Reportable Absolute Neutrophils Not Reportable Absolute Lymphocytes Not Reportable Absolute Monocytes Not Reportable Absolute Eosinophils Not Reportable Absolute Basophils Not Reportable Carbonic Acid 1.52 H HCO3/H2CO3 Ratio 13:1 ABG pH 7.21 L ABG pCO2 50.5 H ABG pO2 57.7 L ABG HCO3 19.8 L ABG O2 Saturation 83.8 L ABG Base Excess -7.7 FiO2 2 Sodium 145.4 H Potassium 4.4 Chloride 116 H Carbon Dioxide 24 Anion Gap 5 BUN 13 Creatinine 0.98 Est GFR ( Amer) > 60 Est GFR (Non-Af Amer) 55 L Glucose 86 Calcium 8.0 L Total Bilirubin 0.5 AST 28 ALT 14 Alkaline Phosphatase 46 Total Protein 5.6 L Albumin 2.4 L 12/29/17 06:41 WBC RBC Hgb Hct MCV MCH MCHC RDW Plt Count Seg Neutrophils % Lymphocytes % Monocytes % Eosinophils % Basophils % Absolute Neutrophils Absolute Lymphocytes Absolute Monocytes Absolute Eosinophils Absolute Basophils Carbonic Acid 1.51 H HCO3/H2CO3 Ratio 13:1 ABG pH 7.21 L ABG pCO2 50.2 H ABG pO2 85.7 ABG HCO3 19.7 L ABG O2 Saturation 94.4 ABG Base Excess -7.9 FiO2 30% Sodium Potassium Chloride Carbon Dioxide Anion Gap BUN Creatinine Est GFR ( Amer) Est GFR (Non-Af Amer) Glucose Calcium Total Bilirubin AST ALT Alkaline Phosphatase Total Protein Albumin 12/24/17 05:23 Blood Blood Culture - Final NO GROWTH IN 5 DAYS 12/24/17 20:50 Stool - Stool - Final 12/24/17 20:50 Stool - Stool Stool Culture - Final NO SALMONELLA, SHIGELLA, CAMPYLOBACTER, OR E.COLI 0157 RECOVERED. NEGATIVE FOR SHIGA TOXINS 1&2. 12/24/17 12/24/17 12/24/17 07:56 07:56 13:50 Creatine Kinase 228 H 151 H CK-MB (CK-2) 7.37 H Troponin I < 0.012 12/24/17 13:50 Creatine Kinase CK-MB (CK-2) 6.20 H Troponin I < 0.012 Impressions: Chest X-Ray 12/29/17 06:00 IMPRESSION: Interval line/tube modification. Assessment & Plan - Diagnosis (1) Acute respiratory failure Qualifiers: Respiratory failure complication: hypoxia and hypercapnia Qualified Code(s) : J96.01 - Acute respiratory failure with hypoxia; J96.02 - Acute respiratory failure with hypercapnia; J96.02 - Acute respiratory failure with hypercapnia; J96.02 - Acute respiratory failure with hypercapnia Is this a current diagnosis for this admission?: Yes Plan: primarily BiPAP with high flow oxygen as a respite as the latter is more comfortable (2) Bandemia Is this a current diagnosis for this admission?: No (3) Metabolic acidosis Is this a current diagnosis for this admission?: Yes Plan: Improving but no renal comp for resp acidosis (4) Pneumonia Qualifiers: Pneumonia type: due to unspecified organism Laterality: left Lung location: unspecified part of lung Qualified Code(s): J18.9 - Pneumonia, unspecified organism Is this a current diagnosis for this admission?: Yes Plan: wbc wnl (5) Septic shock Is this a current diagnosis for this admission?: No (6) GERD (gastroesophageal reflux disease) Qualifiers: Is this a current diagnosis for this admission?: Yes Plan: H2 logan - Time Total Critical Time (Minutes): 40
--- NOTE | 2017-12-31 12:25 | PDOC PROGRESS REPORT ---
Subjective Progress Note for:: 12/30/17 Subjective:: Increase alertness today Reason For Visit: SEPSIS,LEUKEMOID REACTION,LEUKEMIA/LYMPHOMA, Physical Exam Vital Signs: Temp Pulse Resp BP Pulse Ox 99.0 F 99 26 H 122/60 100 12/28/17 14:03 12/30/17 08:43 12/30/17 10:04 12/30/17 10:04 12/30/17 10:04 Intake & Output 12/29/17 12/30/17 12/31/17 06:59 06:59 06:59 Intake Total 3950 2150 200 Output Total 2560 3325 825 Balance 1390 1175 -625 Weight 66 kg 66.2 kg General appearance: PRESENT: no acute distress, cooperative, disheveled Head exam: PRESENT: atraumatic, normocephalic Eye exam: PRESENT: conjunctiva pale. ABSENT: nystagmus, periorbital swelling, scleral icterus Mouth exam: PRESENT: dry mucosa, neck supple, tongue midline Neck exam: ABSENT: carotid bruit, JVD, lymphadenopathy, thyromegaly, tracheal deviation, tracheostomy Respiratory exam: PRESENT: decreased breath sounds, prolonged expiratory phas, rales, rhonchi, tachypnea, unlabored. ABSENT: retraction Cardiovascular exam: PRESENT: irregular rhythm Pulses: PRESENT: normal radial pulses GI/Abdominal exam: PRESENT: soft. ABSENT: tenderness Gentrourinary exam: PRESENT: indwelling catheter Extremities exam: PRESENT: pedal edema. ABSENT: calf tenderness, clubbing, joint swelling Musculoskeletal exam: ABSENT: ambulatory, deformity, dislocation Neurological exam: PRESENT: alert, awake Psychiatric exam: PRESENT: flat affect Skin exam: PRESENT: dry, warm Results Laboratory Results: 12/30/17 04:13 12/30/17 09:45 12/30/17 12/30/17 12/30/17 04:13 04:13 05:19 WBC 10.0 RBC 3.25 L Hgb 8.3 L Hct 27.1 L MCV 83 MCH 25.6 L MCHC 30.7 L RDW 18.7 H Plt Count 413 Seg Neutrophils % Not Reportable Lymphocytes % Not Reportable Monocytes % Not Reportable Eosinophils % Not Reportable Basophils % Not Reportable Absolute Neutrophils Not Reportable Absolute Lymphocytes Not Reportable Absolute Monocytes Not Reportable Absolute Eosinophils Not Reportable Absolute Basophils Not Reportable Carbonic Acid 1.39 H HCO3/H2CO3 Ratio 13:1 ABG pH 7.24 L ABG pCO2 46.1 H ABG pO2 80.0 ABG HCO3 19.3 L ABG O2 Saturation 93.7 L ABG Base Excess -7.7 FiO2 30% Sodium 143.7 Potassium 4.1 Chloride 114 H Carbon Dioxide 19 L Anion Gap 11 BUN 9 Creatinine 0.97 Est GFR ( Amer) > 60 Est GFR (Non-Af Amer) 56 L Glucose 101 Calcium 8.0 L Magnesium 1.8 Total Bilirubin < 0.1 L AST 17 ALT 12 Alkaline Phosphatase 70 Total Protein 5.2 L Albumin 2.3 L 12/30/17 09:45 WBC RBC Hgb Hct MCV MCH MCHC RDW Plt Count Seg Neutrophils % Lymphocytes % Monocytes % Eosinophils % Basophils % Absolute Neutrophils Absolute Lymphocytes Absolute Monocytes Absolute Eosinophils Absolute Basophils Carbonic Acid HCO3/H2CO3 Ratio ABG pH ABG pCO2 ABG pO2 ABG HCO3 ABG O2 Saturation ABG Base Excess FiO2 Sodium Potassium Chloride Carbon Dioxide Anion Gap BUN Creatinine 1.00 Est GFR ( Amer) > 60 Est GFR (Non-Af Amer) 54 L Glucose Calcium Magnesium Total Bilirubin AST ALT Alkaline Phosphatase Total Protein Albumin 12/24/17 11:12 Blood Blood Culture - Final NO GROWTH IN 5 DAYS 12/24/17 12/24/17 12/24/17 07:56 07:56 13:50 Creatine Kinase 228 H 151 H CK-MB (CK-2) 7.37 H Troponin I < 0.012 12/24/17 13:50 Creatine Kinase CK-MB (CK-2) 6.20 H Troponin I < 0.012 Impressions: Chest X-Ray 12/30/17 06:00 IMPRESSION: No significant change. Assessment & Plan - Diagnosis (1) Acute respiratory failure Qualifiers: Respiratory failure complication: hypoxia and hypercapnia Qualified Code(s) : J96.01 - Acute respiratory failure with hypoxia; J96.02 - Acute respiratory failure with hypercapnia; J96.02 - Acute respiratory failure with hypercapnia; J96.02 - Acute respiratory failure with hypercapnia Is this a current diagnosis for this admission?: Yes Plan: primarily BiPAP with high flow oxygen as a respite as the latter is more comfortable (2) Bandemia Is this a current diagnosis for this admission?: No (3) Metabolic acidosis Is this a current diagnosis for this admission?: Yes Plan: no renal comp for resp acidosis ass [id number] (4) Pneumonia Qualifiers: Pneumonia type: due to unspecified organism Laterality: left Lung location: unspecified part of lung Qualified Code(s): J18.9 - Pneumonia, unspecified organism Is this a current diagnosis for this admission?: Yes Plan: wbc wnl (5) Septic shock Is this a current diagnosis for this admission?: No (6) GERD (gastroesophageal reflux disease) Qualifiers: Is this a current diagnosis for this admission?: Yes Plan: H2 logan - Time Total Critical Time (Minutes): 45
[2017-12-31] MEDS: MELATONIN 3 MG TABLET PO SCH (21:29)
[2017-12-31] MEDS: OXYCODONE-ACETAMINOPHEN 5-325 MG TABLET PO PRN (22:39)
[2017-12-31] MEDS: OXYCODONE HCL IR 5 MG TABLET PO PRN (22:39)
[2018-01-01] MEDS: IPRATROPIUM/ALBUTEROL 0.5-2.5 MG/3 ML AMPUL NEB SCH ×4 (02:16→20:54)
[2018-01-01 04:20] LABS: ANION GAP 10 (5-19); BLOOD UREA NITROGEN 9 mg/dL (7-20); CALCIUM 8.4 mg/dL (8.4-10.2); CARBON DIOXIDE 26 mmol/L (22-30); CHLORIDE 107 mmol/L (98-107); GLUCOSE 85 mg/dL (75-110); POTASSIUM 3.3 mmol/L (3.6-5.0); SODIUM 142.6 mmol/L (137-145)
[2018-01-01 04:25] LABS: HEMATOCRIT 28.3 % (36.0-47.0); HEMOGLOBIN 8.8 g/dL (12.0-15.5); MEAN CORPUSCULAR HEMOGLOBIN 25.3 pg (27.0-33.4); MEAN CORPUSCULAR HGB CONC 31.2 g/dL (32.0-36.0); MEAN CORPUSCULAR VOLUME 81 fl (80-97); PLATELET COUNT 554 10^3/uL (150-450); RED BLOOD COUNT 3.49 10^6/uL (3.72-5.28); RED CELL DISTRIBUTION WIDTH 18.9 % (11.5-14.0); WHITE BLOOD COUNT 10.2 10^3/uL (4.0-10.5)
[2018-01-01] MEDS: ALPRAZOLAM 0.25 MG TABLET PO SCH ×3 (05:34→22:19)
[2018-01-01] MEDS: LACTOBACILLUS ACIDOPHILUS 250 MG TAB PO SCH ×2 (05:34→17:00)
[2018-01-01] MEDS: LANSOPRAZOLE 15 MG TAB.RAP.DR PO SCH (05:35)
[2018-01-01 05:39] LABS: ABSOLUTE LYMPHOCYTES# (MANUAL) 2.3 10^3/uL (0.5-4.7); ABSOLUTE MONOCYTES # (MANUAL) 0.7 10^3/uL (0.1-1.4); ABSOLUTE NEUTROPHILS# (MANUAL) 6.8 10^3/uL (1.7-8.2); ANISOCYTOSIS 1+; BASOPHILS % (MANUAL) 0 % (0-2); EOSINOPHILS % (MANUAL) 3 % (0-6); LYMPHOCYTES % (MANUAL) 23 % (13-45); MONOCYTES % (MANUAL) 7 % (3-13); POLYCHROMASIA SLIGHT; SCHISTOCYTES SLIGHT; SEGMENTED NEUTROPHILS % (MAN) 67 % (42-78); TARGET CELLS SLIGHT; TOTAL CELLS COUNTED 100
[2018-01-01 05:40] LABS: PLATELET COMMENT ADEQUATE
[2018-01-01 05:51] LABS: ARTERIAL BLOOD BASE EXCESS -0.1 mmol/L; ARTERIAL BLOOD FIO2 40%; ARTERIAL BLOOD H2CO3 1.44 mmol/L (1.05-1.35); ARTERIAL BLOOD HCO3 25.7 mmol/L (20-24); ARTERIAL BLOOD PCO2 47.9 mmHg (35-45); ARTERIAL BLOOD PH 7.35 (7.35-7.45); ARTERIAL BLOOD PO2 78.7 mmHg (80-100); ARTERIAL BLOOD TOTAL CO2 27.2 mmol/L (21-25)
[2018-01-01] MEDS: POTASSIUM CHLORIDE 10 MEQ CAPSULE.ER PO SCH ×2 (06:43→12:34)
[2018-01-01] MEDS: OXYCODONE-ACETAMINOPHEN 5-325 MG TABLET PO PRN ×2 (06:43→16:55)
[2018-01-01] MEDS: OXYCODONE HCL IR 5 MG TABLET PO PRN ×2 (06:44→16:55)
--- NOTE | 2018-01-01 06:51 | RADIOLOGY REPORT (SQ) ---
EXAM DESCRIPTION: XR CHEST 1 VIEW COMPLETED DATE/TME: 01/01/2018 06:00 CLINICAL HISTORY: 77 years Female, pna COMPARISON: One day prior. NUMBER OF VIEWS/TECHNIQUE: 1/AP FINDINGS: Moderate left lower hemithoracic opacity-effusion, small patchy opacity of the right lung base, moderate interstitial markings.Atherosclerosis. Right cardiac stimulator with leads. Likely normal cardiac silhouette size partially obscured. No pneumothorax. Stable bony thorax. IMPRESSION: No significant change.
[2018-01-01] MEDS: ACETYLCYSTEINE 20% SOLN 800 MG/4 ML VIAL.NEB NEB SCH ×2 (08:13→20:54)
--- NOTE | 2018-01-01 09:05 | PDOC PROGRESS REPORT ---
Subjective Progress Note for:: 01/01/18 Subjective:: Patient is currently doing fair Was put in a new mask yesterday by Dr. Rosen and patient's pH is better Patient is denied any chest pain denied any shortness of breath no Fever no chills Reason For Visit: SEPSIS,LEUKEMOID REACTION,LEUKEMIA/LYMPHOMA, Physical Exam Vital Signs: Temp Pulse Resp BP Pulse Ox 96.4 F L 66 16 110/44 L 97 01/01/18 07:56 01/01/18 08:59 01/01/18 08:59 01/01/18 07:56 01/01/18 08:59 Intake & Output 12/31/17 01/01/18 01/02/18 06:59 06:59 06:59 Intake Total 3300 1500 Output Total 4150 6800 375 Balance -850 -5300 -375 Weight 63.4 kg 58.8 kg General appearance: PRESENT: no acute distress, well-developed, well-nourished Head exam: PRESENT: atraumatic, normocephalic Eye exam: PRESENT: conjunctiva pink, EOMI, PERRLA. ABSENT: scleral icterus Ear exam: PRESENT: normal external ear exam Mouth exam: PRESENT: moist, tongue midline Neck exam: PRESENT: full ROM. ABSENT: carotid bruit, JVD, lymphadenopathy, thyromegaly Respiratory exam: PRESENT: clear to auscultation luci Cardiovascular exam: PRESENT: RRR. ABSENT: diastolic murmur, rubs, systolic murmur Pulses: PRESENT: normal dorsalis pedis pul, +2 pedal pulses bilateral Vascular exam: PRESENT: normal capillary refill GI/Abdominal exam: PRESENT: normal bowel sounds, soft. ABSENT: distended, guarding, mass, organolmegaly, rebound, tenderness Rectal exam: PRESENT: deferred Neurological exam: PRESENT: alert, awake, oriented to person, oriented to place , oriented to time, oriented to situation, CN II-XII grossly intact. ABSENT: motor sensory deficit Psychiatric exam: PRESENT: appropriate affect, normal mood. ABSENT: homicidal ideation, suicidal ideation Skin exam: PRESENT: dry, intact, warm. ABSENT: cyanosis, rash Results Laboratory Results: 01/01/18 03:46 01/01/18 03:46 01/01/18 01/01/18 01/01/18 03:46 03:46 03:46 WBC 10.2 RBC 3.49 L Hgb 8.8 L Hct 28.3 L MCV 81 MCH 25.3 L MCHC 31.2 L RDW 18.9 H Plt Count 554 H Seg Neutrophils % Not Reportable Lymphocytes % Not Reportable Monocytes % Not Reportable Eosinophils % Not Reportable Basophils % Not Reportable Absolute Neutrophils Not Reportable Absolute Lymphocytes Not Reportable Absolute Monocytes Not Reportable Absolute Eosinophils Not Reportable Absolute Basophils Not Reportable Carbonic Acid HCO3/H2CO3 Ratio ABG pH ABG pCO2 ABG pO2 ABG HCO3 ABG O2 Saturation ABG Base Excess FiO2 Sodium 142.6 Potassium 3.3 L Chloride 107 Carbon Dioxide 26 Anion Gap 10 BUN 9 Creatinine 0.87 Est GFR ( Amer) > 60 Est GFR (Non-Af Amer) > 60 Glucose 85 Calcium 8.4 Magnesium 1.7 01/01/18 05:41 WBC RBC Hgb Hct MCV MCH MCHC RDW Plt Count Seg Neutrophils % Lymphocytes % Monocytes % Eosinophils % Basophils % Absolute Neutrophils Absolute Lymphocytes Absolute Monocytes Absolute Eosinophils Absolute Basophils Carbonic Acid 1.44 H HCO3/H2CO3 Ratio 17:1 ABG pH 7.35 ABG pCO2 47.9 H ABG pO2 78.7 L ABG HCO3 25.7 H ABG O2 Saturation 95.0 ABG Base Excess -0.1 FiO2 40% Sodium Potassium Chloride Carbon Dioxide Anion Gap BUN Creatinine Est GFR ( Amer) Est GFR (Non-Af Amer) Glucose Calcium Magnesium 12/28/17 13:48 Catheter Tip - Port A Cath Line Catheter Tip Culture - Final NO GROWTH 3 DAYS 12/24/17 12/24/17 12/24/17 07:56 07:56 13:50 Creatine Kinase 228 H 151 H CK-MB (CK-2) 7.37 H Troponin I < 0.012 12/24/17 13:50 Creatine Kinase CK-MB (CK-2) 6.20 H Troponin I < 0.012 Impressions: Chest Ultrasound 12/31/17 00:00 IMPRESSION: No significant right pleural effusion. Very small left pleural effusion, consolidation left lower lobe. Chest X-Ray 01/01/18 06:00 IMPRESSION: No significant change. Assessment & Plan - Diagnosis (1) Acute respiratory failure Qualifiers: Respiratory failure complication: hypoxia and hypercapnia Qualified Code(s) : J96.01 - Acute respiratory failure with hypoxia; J96.02 - Acute respiratory failure with hypercapnia; J96.02 - Acute respiratory failure with hypercapnia; J96.02 - Acute respiratory failure with hypercapnia Is this a current diagnosis for this admission?: Yes (2) History of pulmonary embolus (PE) Is this a current diagnosis for this admission?: Yes (3) Pneumonia Qualifiers: Pneumonia type: due to unspecified organism Laterality: left Lung location: unspecified part of lung Qualified Code(s): J18.9 - Pneumonia, unspecified organism Is this a current diagnosis for this admission?: Yes (4) CAD (coronary artery disease) Qualifiers: Coronary Disease-Associated Artery/Lesion type: picayune artery Associated angina: without angina Is this a current diagnosis for this admission?: Yes (5) COPD (chronic obstructive pulmonary disease) Qualifiers: COPD type: COPD with acute exacerbation Qualified Code(s): J44.1 - Chronic obstructive pulmonary disease with (acute) exacerbation Is this a current diagnosis for this admission?: Yes - Time Time Spent with patient: 15-24 minutes Medications reviewed and adjusted accordingly: Yes Anticipated discharge: Other Within: Other - Inpatient Certification Based on my medical assessment, after consideration of the patient's comorbidities, presenting symptoms, or acuity I expect that the services needed warrant INPATIENT care.: Yes I certify that my determination is in accordance with my understanding of Medicare's requirements for reasonable and necessary INPATIENT services [42 CFR 412.3e].: Yes Medical Necessity: Significant Comorbidiites Make Outpatient Treatment Too Risky , Need Close Monitoring Due to Risk of Patient Decompensation, Need for IV Antibiotics Post Hospital Care: D/C [employer] Documentation - Plan Summary Plan Summary: Replace the potassiums Patient peripheral edema is much improved will stop the Lasix
[2018-01-01] MEDS: 1/2 NORMAL SALINE 1,000 ML IV PRN (11:34)
[2018-01-01] MEDS ORDERED: POTASSIUM CHLORIDE 10 MEQ CAPSULE.ER PO ONE (12:17)
[2018-01-01] MEDS: SODIUM BICARBONATE 650 MG TABLET PO SCH ×2 (12:34→22:19)
[2018-01-01] MEDS: MONTELUKAST SODIUM 10 MG TABLET PO SCH (12:34)
[2018-01-01] MEDS: ACETAZOLAMIDE 250 MG TABLET PO SCH ×2 (12:34→17:00)
[2018-01-01] MEDS: CITALOPRAM HYDROBROMIDE 20 MG TABLET PO SCH (12:34)
[2018-01-01] MEDS: FLUCONAZOLE 200 MG/NS RTU 200 MG/100 ML RTUPB IV SCH (13:37)
[2018-01-01] MEDS: VANCOMYCIN HCL 1,000 MG in DEXTROSE 5%-WATER 250 ML IV SCH (13:37)
[2018-01-01] MEDS: FUROSEMIDE INJ/PF 20 MG/2 ML SDV IV SCH ×2 (13:38→22:19)
[2018-01-01] MEDS: PIPERACILLIN SODIUM/TAZOBACTAM 3.375 GM in NORMAL SALINE 100 ML IV SCH ×2 (13:38→17:00)
[2018-01-01] MEDS: ENOXAPARIN SODIUM INJ 30 MG/0.3 ML DISP.SYRIN SUBCUT SCH (13:39)
--- NOTE | 2018-01-01 16:31 | PDOC PROGRESS REPORT ---
Subjective Progress Note for:: 01/01/18 Subjective:: Increase alertness today Reason For Visit: SEPSIS,LEUKEMOID REACTION,LEUKEMIA/LYMPHOMA, Physical Exam Vital Signs: Temp Pulse Resp BP Pulse Ox 96.4 F L 66 16 110/44 L 97 01/01/18 07:56 01/01/18 08:59 01/01/18 08:59 01/01/18 07:56 01/01/18 08:59 Intake & Output 12/31/17 01/01/18 01/02/18 06:59 06:59 06:59 Intake Total 3300 1500 Output Total 4150 6800 375 Balance -850 -5300 -375 Weight 63.4 kg 58.8 kg General appearance: PRESENT: no acute distress, cooperative, disheveled Head exam: PRESENT: atraumatic, normocephalic Eye exam: PRESENT: conjunctiva pale, EOMI. ABSENT: nystagmus, periorbital swelling Mouth exam: PRESENT: dry mucosa, neck supple, tongue midline Neck exam: ABSENT: carotid bruit, JVD, lymphadenopathy, thyromegaly, tracheal deviation, tracheostomy Respiratory exam: PRESENT: crackles, decreased breath sounds, prolonged expiratory phas, rhonchi, unlabored. ABSENT: retraction, stridor Cardiovascular exam: PRESENT: RRR, +S1, +S2 Pulses: PRESENT: normal radial pulses GI/Abdominal exam: PRESENT: soft. ABSENT: tenderness Extremities exam: PRESENT: pedal edema. ABSENT: calf tenderness, clubbing Musculoskeletal exam: ABSENT: ambulatory, deformity, dislocation Neurological exam: PRESENT: alert, awake Psychiatric exam: PRESENT: flat affect Skin exam: PRESENT: dry, warm Results Laboratory Results: 01/01/18 03:46 01/01/18 03:46 01/01/18 01/01/18 01/01/18 03:46 03:46 03:46 WBC 10.2 RBC 3.49 L Hgb 8.8 L Hct 28.3 L MCV 81 MCH 25.3 L MCHC 31.2 L RDW 18.9 H Plt Count 554 H Seg Neutrophils % Not Reportable Lymphocytes % Not Reportable Monocytes % Not Reportable Eosinophils % Not Reportable Basophils % Not Reportable Absolute Neutrophils Not Reportable Absolute Lymphocytes Not Reportable Absolute Monocytes Not Reportable Absolute Eosinophils Not Reportable Absolute Basophils Not Reportable Carbonic Acid HCO3/H2CO3 Ratio ABG pH ABG pCO2 ABG pO2 ABG HCO3 ABG O2 Saturation ABG Base Excess FiO2 Sodium 142.6 Potassium 3.3 L Chloride 107 Carbon Dioxide 26 Anion Gap 10 BUN 9 Creatinine 0.87 Est GFR ( Amer) > 60 Est GFR (Non-Af Amer) > 60 Glucose 85 Calcium 8.4 Magnesium 1.7 01/01/18 05:41 WBC RBC Hgb Hct MCV MCH MCHC RDW Plt Count Seg Neutrophils % Lymphocytes % Monocytes % Eosinophils % Basophils % Absolute Neutrophils Absolute Lymphocytes Absolute Monocytes Absolute Eosinophils Absolute Basophils Carbonic Acid 1.44 H HCO3/H2CO3 Ratio 17:1 ABG pH 7.35 ABG pCO2 47.9 H ABG pO2 78.7 L ABG HCO3 25.7 H ABG O2 Saturation 95.0 ABG Base Excess -0.1 FiO2 40% Sodium Potassium Chloride Carbon Dioxide Anion Gap BUN Creatinine Est GFR ( Amer) Est GFR (Non-Af Amer) Glucose Calcium Magnesium 12/28/17 13:48 Catheter Tip - Port A Cath Line Catheter Tip Culture - Final NO GROWTH 3 DAYS 12/24/17 12/24/17 12/24/17 07:56 07:56 13:50 Creatine Kinase 228 H 151 H CK-MB (CK-2) 7.37 H Troponin I < 0.012 12/24/17 13:50 Creatine Kinase CK-MB (CK-2) 6.20 H Troponin I < 0.012 Impressions: Chest Ultrasound 12/31/17 00:00 IMPRESSION: No significant right pleural effusion. Very small left pleural effusion, consolidation left lower lobe. Chest X-Ray 01/01/18 06:00 IMPRESSION: No significant change. Assessment & Plan - Diagnosis (1) Acute respiratory failure Qualifiers: Respiratory failure complication: hypoxia and hypercapnia Qualified Code(s) : J96.01 - Acute respiratory failure with hypoxia; J96.02 - Acute respiratory failure with hypercapnia; J96.02 - Acute respiratory failure with hypercapnia; J96.02 - Acute respiratory failure with hypercapnia Is this a current diagnosis for this admission?: Yes Plan: primarily BiPAP with high flow oxygen as a respite as the latter is more comfortable,cxr remains abn (2) Bandemia Is this a current diagnosis for this admission?: No (3) Metabolic acidosis Is this a current diagnosis for this admission?: Yes Plan: normal on hco3 tabs (4) Pneumonia Qualifiers: Pneumonia type: due to unspecified organism Laterality: left Lung location: unspecified part of lung Qualified Code(s): J18.9 - Pneumonia, unspecified organism Is this a current diagnosis for this admission?: Yes Plan: wbc wnl (5) Septic shock Is this a current diagnosis for this admission?: No (6) GERD (gastroesophageal reflux disease) Qualifiers: Is this a current diagnosis for this admission?: Yes Plan: H2 logan - Time Total Critical Time (Minutes): 45 Anticipated discharge: Home with Homehealth
[2018-01-01] MEDS: MELATONIN 3 MG TABLET PO SCH (22:21)
[2018-01-02] MEDS: PIPERACILLIN SODIUM/TAZOBACTAM 3.375 GM in NORMAL SALINE 100 ML IV SCH ×4 (00:41→18:53)
[2018-01-02] MEDS: OXYCODONE-ACETAMINOPHEN 5-325 MG TABLET PO PRN ×2 (02:29→14:57)
[2018-01-02] MEDS: OXYCODONE HCL IR 5 MG TABLET PO PRN ×2 (02:30→14:57)
[2018-01-02] MEDS: IPRATROPIUM/ALBUTEROL 0.5-2.5 MG/3 ML AMPUL NEB SCH ×4 (02:53→19:50)
[2018-01-02] MEDS: LANSOPRAZOLE 15 MG TAB.RAP.DR PO SCH (06:21)
[2018-01-02] MEDS: ALPRAZOLAM 0.25 MG TABLET PO SCH ×3 (06:21→21:56)
[2018-01-02] MEDS: LACTOBACILLUS ACIDOPHILUS 250 MG TAB PO SCH ×2 (06:21→18:34)
[2018-01-02 06:23] LABS: HEMATOCRIT 31.7 % (36.0-47.0); HEMOGLOBIN 9.8 g/dL (12.0-15.5); MEAN CORPUSCULAR HGB CONC 31.1 g/dL (32.0-36.0); MEAN CORPUSCULAR VOLUME 80 fl (80-97); PLATELET COUNT 655 10^3/uL (150-450); RED BLOOD COUNT 3.94 10^6/uL (3.72-5.28); RED CELL DISTRIBUTION WIDTH 19.2 % (11.5-14.0); WHITE BLOOD COUNT 10.4 10^3/uL (4.0-10.5)
--- NOTE | 2018-01-02 06:34 | RADIOLOGY REPORT (SQ) ---
EXAM DESCRIPTION: XR CHEST 1 VIEW COMPLETED DATE/TME: 01/02/2018 06:00 CLINICAL HISTORY: 77 years Female, pna COMPARISON: One day prior. NUMBER OF VIEWS/TECHNIQUE: 1/AP FINDINGS: Moderate left lower hemithoracic opacity-effusion, moderate coarsened interstitial markings. Atherosclerosis. Left cardiac stimulator with leads. Normal cardiac silhouette size. No pneumothorax. Stable bony thorax. IMPRESSION: No significant change.
[2018-01-02 06:38] LABS: ANION GAP 11 (5-19); BLOOD UREA NITROGEN 13 mg/dL (7-20); CALCIUM 8.8 mg/dL (8.4-10.2); CARBON DIOXIDE 27 mmol/L (22-30); CHLORIDE 105 mmol/L (98-107); GLUCOSE 81 mg/dL (75-110); POTASSIUM 4.3 mmol/L (3.6-5.0); SODIUM 142.6 mmol/L (137-145)
[2018-01-02 06:54] LABS: ABSOLUTE LYMPHOCYTES# (MANUAL) 1.5 10^3/uL (0.5-4.7); ABSOLUTE MONOCYTES # (MANUAL) 1.6 10^3/uL (0.1-1.4); ABSOLUTE NEUTROPHILS# (MANUAL) 7.3 10^3/uL (1.7-8.2); BASOPHILS % (MANUAL) 0 % (0-2); EOSINOPHILS % (MANUAL) 1 % (0-6); LYMPHOCYTES % (MANUAL) 14 % (13-45); MONOCYTES % (MANUAL) 15 % (3-13); SEGMENTED NEUTROPHILS % (MAN) 70 % (42-78); TOTAL CELLS COUNTED 100
[2018-01-02 06:55] LABS: ANISOCYTOSIS 2+; PLATELET COMMENT INCREASED; POLYCHROMASIA 1+
[2018-01-02 07:01] LABS: ARTERIAL BLOOD BASE EXCESS -1.6 mmol/L; ARTERIAL BLOOD H2CO3 1.37 mmol/L (1.05-1.35); ARTERIAL BLOOD HCO3 24.2 mmol/L (20-24); ARTERIAL BLOOD PCO2 45.4 mmHg (35-45); ARTERIAL BLOOD PH 7.34 (7.35-7.45); ARTERIAL BLOOD PO2 73.6 mmHg (80-100); ARTERIAL BLOOD TOTAL CO2 25.6 mmol/L (21-25)
[2018-01-02 07:02] LABS: ARTERIAL BLOOD FIO2 45%
[2018-01-02] MEDS: ACETYLCYSTEINE 20% SOLN 800 MG/4 ML VIAL.NEB NEB SCH ×2 (08:43→19:51)
--- NOTE | 2018-01-02 08:46 | PDOC PROGRESS REPORT ---
Subjective Progress Note for:: 01/02/18 Subjective:: Patient had new BiPAP mask with some improvement in her breathing. She reported poor appetite as limitation to her food intake although nursing staff reported consumption of supplements. No nausea, vomiting or abdominal pain. No reported fever or chills. Reason For Visit: SEPSIS,LEUKEMOID REACTION,LEUKEMIA/LYMPHOMA, Physical Exam Vital Signs: Temp Pulse Resp BP Pulse Ox 99.0 F 83 17 120/60 97 01/01/18 18:00 01/02/18 02:53 01/02/18 07:00 01/02/18 06:36 01/02/18 07:00 Intake & Output 01/01/18 01/02/18 01/03/18 06:59 06:59 06:59 Intake Total 1850 2780 Output Total 6800 5510 Balance -4950 -2730 Weight 58.8 kg 56.4 kg Physical Exam: General appearance: PRESENT: remain on BiPAP support as indicated, thin Head exam: PRESENT: atraumatic, normocephalic Eye exam: PRESENT: conjunctiva pink, EOMI, PERRLA. ABSENT: scleral icterus Ear exam: PRESENT: normal external ear exam Mouth exam: PRESENT: moist Respiratory exam: PRESENT: crackles - scattered bilaterally, decreased breath sounds - bilaterally Cardiovascular exam: PRESENT: RRR. ABSENT: diastolic murmur, rubs, systolic murmur Vascular exam: ABSENT: pallor GI/Abdominal exam: PRESENT: normal bowel sounds, soft. ABSENT: distended, guarding, mass, organomegaly, rebound, tenderness Extremities exam: ABSENT: pedal edema Musculoskeletal exam: PRESENT: ambulatory - related to multiple joints involvement with arthritis Neurological exam: PRESENT: alert, awake, oriented to person, oriented to place , oriented to time, oriented to situation, CN II-XII grossly intact. ABSENT: motor sensory deficit Psychiatric exam: PRESENT: appropriate affect, normal mood. ABSENT: homicidal ideation, suicidal ideation Skin exam: PRESENT: dry, intact, warm. ABSENT: cyanosis, rash Results Laboratory Results: 01/02/18 06:03 01/02/18 06:03 01/02/18 01/02/18 01/02/18 06:03 06:03 06:49 WBC 10.4 RBC 3.94 Hgb 9.8 L Hct 31.7 L MCV 80 MCH 25.0 L MCHC 31.1 L RDW 19.2 H Plt Count 655 H Seg Neutrophils % Not Reportable Lymphocytes % Not Reportable Monocytes % Not Reportable Eosinophils % Not Reportable Basophils % Not Reportable Absolute Neutrophils Not Reportable Absolute Lymphocytes Not Reportable Absolute Monocytes Not Reportable Absolute Eosinophils Not Reportable Absolute Basophils Not Reportable Carbonic Acid 1.37 H HCO3/H2CO3 Ratio 17:1 ABG pH 7.34 L ABG pCO2 45.4 H ABG pO2 73.6 L ABG HCO3 24.2 H ABG O2 Saturation 94.0 ABG Base Excess -1.6 FiO2 45% Sodium 142.6 Potassium 4.3 Chloride 105 Carbon Dioxide 27 Anion Gap 11 BUN 13 Creatinine 1.01 Est GFR ( Amer) > 60 Est GFR (Non-Af Amer) 53 L Glucose 81 Calcium 8.8 Magnesium 1.8 12/24/17 12/24/17 12/24/17 07:56 07:56 13:50 Creatine Kinase 228 H 151 H CK-MB (CK-2) 7.37 H Troponin I < 0.012 12/24/17 13:50 Creatine Kinase CK-MB (CK-2) 6.20 H Troponin I < 0.012 Impressions: Chest Ultrasound 12/31/17 00:00 IMPRESSION: No significant right pleural effusion. Very small left pleural effusion, consolidation left lower lobe. Chest X-Ray 01/02/18 06:00 IMPRESSION: No significant change. Assessment & Plan - Diagnosis (1) Acute respiratory failure Qualifiers: Respiratory failure complication: hypoxia and hypercapnia Qualified Code(s) : J96.01 - Acute respiratory failure with hypoxia; J96.02 - Acute respiratory failure with hypercapnia; J96.02 - Acute respiratory failure with hypercapnia; J96.02 - Acute respiratory failure with hypercapnia Is this a current diagnosis for this admission?: Yes (2) Lobar pneumonia, unspecified organism Is this a current diagnosis for this admission?: Yes (3) Chronic respiratory failure with hypoxia and hypercapnia Is this a current diagnosis for this admission?: Yes (4) History of pulmonary embolus (PE) Is this a current diagnosis for this admission?: Yes (5) H/O cardiac pacemaker Is this a current diagnosis for this admission?: Yes - Time Time Spent with patient: 25-34 minutes Medications reviewed and adjusted accordingly: Yes Anticipated discharge: SNF Within: Other - Inpatient Certification Based on my medical assessment, after consideration of the patient's comorbidities, presenting symptoms, or acuity I expect that the services needed warrant INPATIENT care.: Yes I certify that my determination is in accordance with my understanding of Medicare's requirements for reasonable and necessary INPATIENT services [42 CFR 412.3e].: Yes Medical Necessity: Need Close Monitoring Due to Risk of Patient Decompensation, Need For IV Fluids, Need For Continuous Telemetry Monitoring, Need for Nebulizer Therapy and Monitoring of Response, Need for IV Antibiotics, Risk of Complication if Not Cared For in Hospital Post Hospital Care: D/C or Transfer Summary - Plan Summary Plan Summary: Continue current medication management. Start on Zbec vitamin and Megace to improvement appetite and possibly po intake. Pulmonary input appreciated.
--- NOTE | 2018-01-02 11:21 | PDOC PROGRESS REPORT ---
Subjective Progress Note for:: 01/02/18 Subjective:: Increase alertness today Reason For Visit: SEPSIS,LEUKEMOID REACTION,LEUKEMIA/LYMPHOMA, Physical Exam Vital Signs: Temp Pulse Resp BP Pulse Ox 99.0 F 83 17 120/60 97 01/01/18 18:00 01/02/18 02:53 01/02/18 07:00 01/02/18 06:36 01/02/18 07:00 Intake & Output 01/01/18 01/02/18 01/03/18 06:59 06:59 06:59 Intake Total 1850 2780 100 Output Total 6800 5510 Balance -4950 -2730 100 Weight 58.8 kg 56.4 kg General appearance: PRESENT: no acute distress, cooperative, disheveled, thin Head exam: PRESENT: atraumatic, normocephalic Eye exam: PRESENT: conjunctiva pale, EOMI. ABSENT: nystagmus, periorbital swelling Mouth exam: PRESENT: dry mucosa, neck supple, tongue midline Neck exam: ABSENT: carotid bruit, JVD, lymphadenopathy, thyromegaly, tracheal deviation, tracheostomy Respiratory exam: PRESENT: crackles, decreased breath sounds, prolonged expiratory phas, rhonchi, unlabored, wheezes. ABSENT: rales, retraction, stridor Cardiovascular exam: PRESENT: RRR, +S1, +S2 Pulses: PRESENT: normal radial pulses GI/Abdominal exam: PRESENT: soft. ABSENT: tenderness Extremities exam: PRESENT: pedal edema. ABSENT: calf tenderness, clubbing, joint swelling Musculoskeletal exam: ABSENT: deformity, dislocation Neurological exam: PRESENT: alert, awake Psychiatric exam: PRESENT: flat affect Skin exam: PRESENT: dry, warm Results Laboratory Results: 01/02/18 06:03 01/02/18 06:03 01/02/18 01/02/18 01/02/18 06:03 06:03 06:49 WBC 10.4 RBC 3.94 Hgb 9.8 L Hct 31.7 L MCV 80 MCH 25.0 L MCHC 31.1 L RDW 19.2 H Plt Count 655 H Seg Neutrophils % Not Reportable Lymphocytes % Not Reportable Monocytes % Not Reportable Eosinophils % Not Reportable Basophils % Not Reportable Absolute Neutrophils Not Reportable Absolute Lymphocytes Not Reportable Absolute Monocytes Not Reportable Absolute Eosinophils Not Reportable Absolute Basophils Not Reportable Carbonic Acid 1.37 H HCO3/H2CO3 Ratio 17:1 ABG pH 7.34 L ABG pCO2 45.4 H ABG pO2 73.6 L ABG HCO3 24.2 H ABG O2 Saturation 94.0 ABG Base Excess -1.6 FiO2 45% Sodium 142.6 Potassium 4.3 Chloride 105 Carbon Dioxide 27 Anion Gap 11 BUN 13 Creatinine 1.01 Est GFR ( Amer) > 60 Est GFR (Non-Af Amer) 53 L Glucose 81 Calcium 8.8 Magnesium 1.8 12/24/17 12/24/17 12/24/17 07:56 07:56 13:50 Creatine Kinase 228 H 151 H CK-MB (CK-2) 7.37 H Troponin I < 0.012 12/24/17 13:50 Creatine Kinase CK-MB (CK-2) 6.20 H Troponin I < 0.012 Impressions: Chest Ultrasound 12/31/17 00:00 IMPRESSION: No significant right pleural effusion. Very small left pleural effusion, consolidation left lower lobe. Chest X-Ray 01/02/18 06:00 IMPRESSION: No significant change. Assessment & Plan - Diagnosis (1) Acute respiratory failure Qualifiers: Respiratory failure complication: hypoxia and hypercapnia Qualified Code(s) : J96.01 - Acute respiratory failure with hypoxia; J96.02 - Acute respiratory failure with hypercapnia; J96.02 - Acute respiratory failure with hypercapnia; J96.02 - Acute respiratory failure with hypercapnia Is this a current diagnosis for this admission?: Yes Plan: primarily BiPAP with high flow oxygen as a respite as the latter is more comfortable,cxr remains abn (2) Bandemia Is this a current diagnosis for this admission?: No (3) Metabolic acidosis Is this a current diagnosis for this admission?: Yes Plan: normal on hco3 tabs (4) Pneumonia Qualifiers: Pneumonia type: due to unspecified organism Laterality: left Lung location: unspecified part of lung Qualified Code(s): J18.9 - Pneumonia, unspecified organism Is this a current diagnosis for this admission?: Yes Plan: wbc wnl (5) Septic shock Is this a current diagnosis for this admission?: No (6) GERD (gastroesophageal reflux disease) Qualifiers: Is this a current diagnosis for this admission?: Yes Plan: H2 logan - Time Total Critical Time (Minutes): 40
[2018-01-02] MEDS: FUROSEMIDE INJ/PF 20 MG/2 ML SDV IV SCH ×2 (11:32→21:56)
[2018-01-02] MEDS: CITALOPRAM HYDROBROMIDE 20 MG TABLET PO SCH (11:32)
[2018-01-02] MEDS: FLUCONAZOLE 200 MG/NS RTU 200 MG/100 ML RTUPB IV SCH (11:32)
[2018-01-02] MEDS: ENOXAPARIN SODIUM INJ 30 MG/0.3 ML DISP.SYRIN SUBCUT SCH (11:33)
[2018-01-02] MEDS: MULTIVIT-STRESS FORMULA/ZINC TABLET PO SCH (11:33)
[2018-01-02] MEDS: ACETAZOLAMIDE 250 MG TABLET PO SCH ×2 (11:33→18:53)
[2018-01-02] MEDS: SODIUM BICARBONATE 650 MG TABLET PO SCH ×2 (11:33→21:56)
[2018-01-02] MEDS: MONTELUKAST SODIUM 10 MG TABLET PO SCH (11:33)
[2018-01-02] MEDS: VANCOMYCIN HCL 1,000 MG in DEXTROSE 5%-WATER 250 ML IV SCH (11:35)
[2018-01-02] MEDS: MEGESTROL ACETATE SUSP 400 MG/10 ML UDCUP PO SCH (11:35)
--- NOTE | 2018-01-02 14:25 | RADIOLOGY REPORT (SQ) ---
EXAM DESCRIPTION: PICC INSERTION; U/S GUIDE FOR VASCULAR ACCESS COMPLETED DATE/TIME: 01/02/2018 2:02 pm REASON FOR STUDY: IV ACCESS COMPARISON: AP chest 01/02/2018 FLUOROSCOPY TIME: No fluoroscopy was used. Bedside digital chest radiographs 6 portable chest films and 1 ultrasound imagesaved to PACS. TECHNIQUE: Fluoroscopic and ultrasound guided PICC placement. LIMITATIONS: None. PROCEDURE: After written consent and assessment were obtained, the patient was brought into the fluo roscopy room and placed supine on the table. Ultrasound evaluation of potential access sites were per formed. After successfully identifying a patent right basilic vein, the right arm was prepped and laura ped in a sterile fashion along with the ultrasound probe. The entry site was anesthetized with 1% lid ocaine. A 21 gauge 7 cm needle was advanced through the skin and into the basilic vein under live ult rasound guidance. An ultrasound image was saved to PACS confirming access site. A .018 guide wire w as then inserted through the needle and into the venous system. The needle was then removed and an 11 blade scalpel was used to make a 1cm skin incision. A 5 fr peel-away sheath was advanced over the w rodo and into the venous system. A measurement was then made using the existing wire and live fluorosc opic guidance. The wire was then removed and trimmed. The PICC was advanced through the peel-away she ath and into the venous system. The peel-away sheath was removed and the catheter was adhered to the patients arm with a stat lock. The catheter was then aspirated and flushed and a sterile bandage was placed over the access site. A fluoroscopic spot image was saved to PACS confirming the catheter tip within the superior vena cava. IMPRESSION: SUCCESSFUL PLACEMENT OF A 5 FR DUAL LUMEN 34 CM PICC IN THE RIGHT BASILIC VEIN. COMMENT: Patient medication list reviewed: Yes- Quality ID# [id number]:Eligible professional attests to doc umenting in the medical record they obtained, updated, or reviewed the patient's current medications. . Quality ID 145: Final reports for procedures using fluoroscopy that document radiation exposure dionicio fredy, or exposure time and number of fluorographic images (if radiation exposure indices are not avail able) Quality ID #76: The patient was prepped and draped using maximum sterile barrier technique including cap, mask, sterile gown, sterile gloves, a large sterile sheet, hand hygiene, and 2% Chlorhexidine fo r cutaneous antisepsis. When ultrasound is used, sterile ultrasound techniques are followed requiring sterile gel and sterile probes. TECHNICAL DOCUMENTATION: JOB ID: [id number] [employer]- All Rights Reserved rev-06/24 Reading location - IP/workstation name: [email or web address]
[2018-01-02] MEDS: MELATONIN 3 MG TABLET PO SCH (21:56)
[2018-01-02] MEDS: 1/2 NORMAL SALINE 1,000 ML IV PRN (21:57)
[2018-01-03] MEDS: PIPERACILLIN SODIUM/TAZOBACTAM 3.375 GM in NORMAL SALINE 100 ML IV SCH ×5 (00:24→23:51)
[2018-01-03] MEDS: NORMAL SALINE 10 ML SDV (SCHEDULED) IV SCH ×3 (00:24→21:29)
[2018-01-03] MEDS: IPRATROPIUM/ALBUTEROL 0.5-2.5 MG/3 ML AMPUL NEB SCH ×4 (02:07→20:12)
[2018-01-03 05:35] LABS: ANION GAP 8 (5-19); BLOOD UREA NITROGEN 19 mg/dL (7-20); CALCIUM 8.1 mg/dL (8.4-10.2); CARBON DIOXIDE 27 mmol/L (22-30); CHLORIDE 104 mmol/L (98-107); GLUCOSE 94 mg/dL (75-110); SODIUM 139.3 mmol/L (137-145)
[2018-01-03 05:39] LABS: POTASSIUM 3.2 mmol/L (3.6-5.0)
[2018-01-03] MEDS: LANSOPRAZOLE 15 MG TAB.RAP.DR PO SCH (06:05)
[2018-01-03] MEDS: ALPRAZOLAM 0.25 MG TABLET PO SCH ×2 (06:05→21:28)
[2018-01-03] MEDS: LACTOBACILLUS ACIDOPHILUS 250 MG TAB PO SCH ×2 (06:05→18:36)
--- NOTE | 2018-01-03 07:49 | PDOC PROGRESS REPORT ---
Subjective Progress Note for:: 01/03/18 Subjective:: Nursing staff reported gradual improvement in oral intake. There was incident of de-saturation and difficulty reestablishing adequate oxygenation after laying patient flat for self care yesterday. She remain on BiPAP support. No reported chest pain, nausea, vomiting or abdominal pain. There is reported intermittent loose stools. No fever. PICC line was established yesterday and she remain on IV Zosyn, Vancomycin and Diflucan coverage. Reason For Visit: SEPSIS,LEUKEMOID REACTION,LEUKEMIA/LYMPHOMA, Physical Exam Vital Signs: Temp Pulse Resp BP Pulse Ox 98.2 F 68 23 H 116/57 L 98 01/03/18 05:13 01/03/18 02:08 01/03/18 06:07 01/03/18 06:07 01/03/18 06:07 Intake & Output 01/02/18 01/03/18 01/04/18 06:59 06:59 06:59 Intake Total 2780 2630 Output Total 5510 3975 Balance -2730 -1345 Weight 56.4 kg 58.3 kg Physical Exam: General appearance: PRESENT: remain on BiPAP support as indicated, thin Head exam: PRESENT: atraumatic, normocephalic Eye exam: PRESENT: conjunctiva pink, EOMI, PERRLA. ABSENT: scleral icterus Ear exam: PRESENT: normal external ear exam Mouth exam: PRESENT: moist Respiratory exam: PRESENT: decreased breath sounds - bilaterally Cardiovascular exam: PRESENT: RRR. ABSENT: diastolic murmur, rubs, systolic murmur Vascular exam: ABSENT: pallor GI/Abdominal exam: PRESENT: normal bowel sounds, soft. ABSENT: distended, guarding, mass, organomegaly, rebound, tenderness Extremities exam: ABSENT: pedal edema Musculoskeletal exam: PRESENT: ambulatory - related to multiple joints involvement with arthritis Neurological exam: PRESENT: alert, awake, oriented to person, oriented to place , oriented to time, oriented to situation, CN II-XII grossly intact. ABSENT: motor sensory deficit Psychiatric exam: PRESENT: appropriate affect, normal mood. ABSENT: homicidal ideation, suicidal ideation Skin exam: PRESENT: dry, intact, warm. ABSENT: cyanosis, rash Results Laboratory Results: 01/02/18 06:03 01/03/18 05:05 01/03/18 05:05 Sodium 139.3 Potassium 3.2 L D Chloride 104 Carbon Dioxide 27 Anion Gap 8 BUN 19 Creatinine 1.13 Est GFR ( Amer) 57 L Est GFR (Non-Af Amer) 47 L Glucose 94 Calcium 8.1 L 12/24/17 12/24/17 12/24/17 07:56 07:56 13:50 Creatine Kinase 228 H 151 H CK-MB (CK-2) 7.37 H Troponin I < 0.012 12/24/17 13:50 Creatine Kinase CK-MB (CK-2) 6.20 H Troponin I < 0.012 Impressions: Chest Ultrasound 12/31/17 00:00 IMPRESSION: No significant right pleural effusion. Very small left pleural effusion, consolidation left lower lobe. Interventional Vascular Procedure 01/02/18 00:00 IMPRESSION: SUCCESSFUL PLACEMENT OF A 5 FR DUAL LUMEN 34 CM PICC IN THE RIGHT BASILIC VEIN. PICC Line Insertion 01/02/18 00:00 IMPRESSION: SUCCESSFUL PLACEMENT OF A 5 FR DUAL LUMEN 34 CM PICC IN THE RIGHT BASILIC VEIN. Chest X-Ray 01/02/18 06:00 IMPRESSION: No significant change. Assessment & Plan - Diagnosis (1) Acute respiratory failure Qualifiers: Respiratory failure complication: hypoxia and hypercapnia Qualified Code(s) : J96.01 - Acute respiratory failure with hypoxia; J96.02 - Acute respiratory failure with hypercapnia; J96.02 - Acute respiratory failure with hypercapnia; J96.02 - Acute respiratory failure with hypercapnia Is this a current diagnosis for this admission?: Yes (2) Lobar pneumonia, unspecified organism Is this a current diagnosis for this admission?: Yes (3) Chronic respiratory failure with hypoxia and hypercapnia Is this a current diagnosis for this admission?: Yes (4) History of pulmonary embolus (PE) Is this a current diagnosis for this admission?: Yes (5) H/O cardiac pacemaker Is this a current diagnosis for this admission?: Yes - Time Time Spent with patient: 25-34 minutes Medications reviewed and adjusted accordingly: Yes Anticipated discharge: SNF Within: Other - Inpatient Certification Based on my medical assessment, after consideration of the patient's comorbidities, presenting symptoms, or acuity I expect that the services needed warrant INPATIENT care.: Yes I certify that my determination is in accordance with my understanding of Medicare's requirements for reasonable and necessary INPATIENT services [42 CFR 412.3e].: Yes Medical Necessity: Need Close Monitoring Due to Risk of Patient Decompensation, Need For IV Fluids, Need For Continuous Telemetry Monitoring, Need for Nebulizer Therapy and Monitoring of Response, Need for IV Antibiotics, Risk of Complication if Not Cared For in Hospital Post Hospital Care: D/C or Transfer Summary - Plan Summary Plan Summary: Continue current medication management. Obtain chest US to assess extent of possible left pleural effusion. Encourage increase oral intake. Potassium replacement and serum mag level will be done. Overall prognosis remain fair.
[2018-01-03] MEDS: ACETYLCYSTEINE 20% SOLN 800 MG/4 ML VIAL.NEB NEB SCH ×2 (10:05→20:12)
[2018-01-03] MEDS: VANCOMYCIN HCL 1,000 MG in DEXTROSE 5%-WATER 250 ML IV SCH (10:15)
[2018-01-03] MEDS: FUROSEMIDE INJ/PF 20 MG/2 ML SDV IV SCH ×2 (10:16→21:30)
[2018-01-03] MEDS: ENOXAPARIN SODIUM INJ 30 MG/0.3 ML DISP.SYRIN SUBCUT SCH (10:16)
[2018-01-03] MEDS: POTASSIUM CHLORIDE 10 MEQ CAPSULE.ER PO SCH ×2 (10:17→14:00)
[2018-01-03] MEDS: CITALOPRAM HYDROBROMIDE 20 MG TABLET PO SCH (10:17)
[2018-01-03] MEDS: SODIUM BICARBONATE 650 MG TABLET PO SCH ×2 (10:17→21:28)
[2018-01-03] MEDS: ACETAZOLAMIDE 250 MG TABLET PO SCH ×2 (10:18→18:33)
[2018-01-03] MEDS: MONTELUKAST SODIUM 10 MG TABLET PO SCH (10:18)
[2018-01-03] MEDS: MULTIVIT-STRESS FORMULA/ZINC TABLET PO SCH (10:18)
[2018-01-03] MEDS: MEGESTROL ACETATE SUSP 400 MG/10 ML UDCUP PO SCH (10:20)
[2018-01-03] MEDS: 1/2 NORMAL SALINE 1,000 ML IV PRN (10:35)
--- NOTE | 2018-01-03 10:44 | RADIOLOGY REPORT (SQ) ---
EXAM DESCRIPTION: CHEST SINGLE VIEW COMPLETED DATE/TIME: 01/03/2018 10:23 am REASON FOR STUDY: PNA COMPARISON: 01/02/2018 NUMBER OF VIEWS: One view. TECHNIQUE: Single frontal radiographic image of the chest acquired. LIMITATIONS: None. FINDINGS: LUNGS AND PLEURA: There is persistent left lower lobe airspace disease. Aeration in the l eft upper lobe is improved. Right lung field is grossly unchanged. MEDIASTINUM AND HILAR STRUCTURES: Stable heart size and mediastinal structures. HEART AND VASCULAR STRUCTURES: Stable appearance. BONES: No acute findings. HARDWARE: PICC line along with battery pack and leads are in place. PICC line overlies the SVC. OTHER: No other significant finding. IMPRESSION: Persistent left lower lobe pneumonia. Improvement aeration in the left upper lobe. PIC C line is in satisfactory position. TECHNICAL DOCUMENTATION: JOB ID: [id number] [employer]- All Rights Reserved Reading location - IP/workstation name: [email or web address]
--- NOTE | 2018-01-03 11:09 | PDOC PROGRESS REPORT ---
Subjective Progress Note for:: 01/03/18 Subjective:: Increase alertness today Reason For Visit: SEPSIS,LEUKEMOID REACTION,LEUKEMIA/LYMPHOMA, Physical Exam Vital Signs: Temp Pulse Resp BP Pulse Ox 98.1 F 64 19 117/55 L 100 01/03/18 08:00 01/03/18 08:00 01/03/18 08:00 01/03/18 08:00 01/03/18 08:00 Intake & Output 01/02/18 01/03/18 01/04/18 06:59 06:59 06:59 Intake Total 2780 2630 Output Total 5510 3975 300 Balance -2731 -1345 -300 Weight 56.4 kg 58.3 kg General appearance: PRESENT: no acute distress, cooperative, disheveled, thin Head exam: PRESENT: atraumatic, normocephalic Eye exam: PRESENT: conjunctiva pale, EOMI. ABSENT: nystagmus, periorbital swelling, scleral icterus Mouth exam: PRESENT: dry mucosa, neck supple, tongue midline Neck exam: ABSENT: carotid bruit, JVD, lymphadenopathy, thyromegaly, tracheal deviation Respiratory exam: PRESENT: decreased breath sounds - silavno L lat chest E->A, prolonged expiratory phas, rales, rhonchi, unlabored. ABSENT: retraction Cardiovascular exam: PRESENT: RRR, +S1, +S2 Pulses: PRESENT: normal radial pulses GI/Abdominal exam: PRESENT: soft. ABSENT: tenderness Extremities exam: PRESENT: pedal edema. ABSENT: calf tenderness, clubbing, joint swelling Neurological exam: PRESENT: alert, awake Psychiatric exam: PRESENT: appropriate affect Skin exam: PRESENT: dry, warm Results Laboratory Results: 01/02/18 06:03 01/03/18 05:05 01/03/18 05:05 Sodium 139.3 Potassium 3.2 L D Chloride 104 Carbon Dioxide 27 Anion Gap 8 BUN 19 Creatinine 1.13 Est GFR ( Amer) 57 L Est GFR (Non-Af Amer) 47 L Glucose 94 Calcium 8.1 L 12/24/17 12/24/17 12/24/17 07:56 07:56 13:50 Creatine Kinase 228 H 151 H CK-MB (CK-2) 7.37 H Troponin I < 0.012 12/24/17 13:50 Creatine Kinase CK-MB (CK-2) 6.20 H Troponin I < 0.012 Impressions: Chest Ultrasound 12/31/17 00:00 IMPRESSION: No significant right pleural effusion. Very small left pleural effusion, consolidation left lower lobe. Interventional Vascular Procedure 01/02/18 00:00 IMPRESSION: SUCCESSFUL PLACEMENT OF A 5 FR DUAL LUMEN 34 CM PICC IN THE RIGHT BASILIC VEIN. PICC Line Insertion 01/02/18 00:00 IMPRESSION: SUCCESSFUL PLACEMENT OF A 5 FR DUAL LUMEN 34 CM PICC IN THE RIGHT BASILIC VEIN. Chest X-Ray 01/02/18 06:00 IMPRESSION: No significant change. Assessment & Plan - Diagnosis (1) Acute respiratory failure Qualifiers: Respiratory failure complication: hypoxia and hypercapnia Qualified Code(s) : J96.01 - Acute respiratory failure with hypoxia; J96.02 - Acute respiratory failure with hypercapnia; J96.02 - Acute respiratory failure with hypercapnia; J96.02 - Acute respiratory failure with hypercapnia Is this a current diagnosis for this admission?: Yes Plan: primarily BiPAP with high flow oxygen as a respite as the latter is more comfortable,ultra soud L hemithorax (2) Bandemia Is this a current diagnosis for this admission?: No (3) Metabolic acidosis Is this a current diagnosis for this admission?: Yes Plan: decrease bicarb to 650 (4) Pneumonia Qualifiers: Pneumonia type: due to unspecified organism Laterality: left Lung location: unspecified part of lung Qualified Code(s): J18.9 - Pneumonia, unspecified organism Is this a current diagnosis for this admission?: Yes Plan: wbc wnl (5) Septic shock Is this a current diagnosis for this admission?: No (6) GERD (gastroesophageal reflux disease) Qualifiers: Is this a current diagnosis for this admission?: Yes Plan: H2 logan - Time Total Critical Time (Minutes): 45
[2018-01-03] MEDS: OXYCODONE-ACETAMINOPHEN 5-325 MG TABLET PO PRN (11:11)
[2018-01-03] MEDS: OXYCODONE HCL IR 5 MG TABLET PO PRN ×2 (11:12→21:27)
[2018-01-03 11:23] LABS: ABSOLUTE BASOPHILS # (AUTO) 0.1 10^3/uL (0.0-0.2); ABSOLUTE EOSINOPHILS # (AUTO) 0.2 10^3/uL (0.0-0.6); ABSOLUTE LYMPHOCYTES (AUTO) 2.1 10^3/uL (0.5-4.7); ABSOLUTE MONOCYTES (AUTO) 1.1 10^3/uL (0.1-1.4); ABSOLUTE NEUT (AUTO) 9.4 10^3/uL (1.7-8.2); BASOPHILS % (AUTO) 0.4 % (0-2); EOSINOPHILS % (AUTO) 1.8 % (0-6); HEMATOCRIT 29.1 % (36.0-47.0); HEMOGLOBIN 9.1 g/dL (12.0-15.5); LYMPHOCYTES % (AUTO) 15.9 % (13-45); MEAN CORPUSCULAR HEMOGLOBIN 25.2 pg (27.0-33.4); MEAN CORPUSCULAR HGB CONC 31.3 g/dL (32.0-36.0); MEAN CORPUSCULAR VOLUME 80 fl (80-97); MONOCYTES % (AUTO) 8.8 % (3-13); RED BLOOD COUNT 3.62 10^6/uL (3.72-5.28); RED CELL DISTRIBUTION WIDTH 19.1 % (11.5-14.0); SEGMENTED NEUTROPHILS % (AUTO) 73.1 % (42-78); TOTAL CELLS COUNTED % (AUTO) 100 %; WHITE BLOOD COUNT 12.9 10^3/uL (4.0-10.5)
[2018-01-03 11:24] LABS: ARTERIAL BLOOD BASE EXCESS -0.1 mmol/L; ARTERIAL BLOOD H2CO3 1.24 mmol/L (1.05-1.35); ARTERIAL BLOOD HCO3 24.8 mmol/L (20-24); ARTERIAL BLOOD O2 SATURATION 95.7 % (94-98); ARTERIAL BLOOD PCO2 41.3 mmHg (35-45); ARTERIAL BLOOD PO2 79.7 mmHg (80-100)
[2018-01-03 11:27] LABS: ARTERIAL BLOOD FIO2 35%
[2018-01-03 11:37] LABS: VANCOMYCIN,TROUGH 18.7 ug/mL (5.0-20.0)
--- NOTE | 2018-01-03 11:44 | RADIOLOGY REPORT (SQ) ---
EXAM DESCRIPTION: U/S CHEST COMPLETED DATE/TIME: 01/03/2018 11:19 am REASON FOR STUDY: eval left pleural effusion COMPARISON: CT chest 07/17/2017 Multiple chest films from 12/24/2017 to 01/03/2018 TECHNIQUE: Ultrasound of the left chest was performed to evaluate pleural fluid. LIMITATIONS: None. FINDINGS: Left chest ultrasound demonstrates a small amount of fluid in the left posterior costophre lukas sulcus adjacent to consolidated collapse left lower lobe. Recommend CT scan of the chest with IV contrast to evaluate for loculated pleural fluid amenable to CT-guided drainage IMPRESSION: Small amount of fluid in the left posterior costophrenic sulcus. This is similar compar ed to ultrasound 12/31/2017. Consider follow-up CT chest with IV contrast to assess for loculated left pleural fluid, given left l ower lobe pneumonia. TECHNICAL DOCUMENTATION: JOB ID: [id number] [employer]- All Rights Reserved Reading location - IP/workstation name: [email or web address]
[2018-01-03 11:47] LABS: PLATELET COUNT 650 10^3/uL (150-450)
[2018-01-03 11:48] LABS: ANISOCYTOSIS 2+; HYPOCHROMASIA 1+; OVALOCYTES SLIGHT; PLATELET CLUMPS PRESENT; PLATELET COMMENT INCREASED; POIKILOCYTOSIS SLIGHT; POLYCHROMASIA 1+; TARGET CELLS 1+; TEAR DROP CELLS SLIGHT
[2018-01-03] MEDS ORDERED: ALPRAZOLAM 0.25 MG TABLET PO ONE (17:00)
[2018-01-03] MEDS: MELATONIN 3 MG TABLET PO SCH (21:28)
[2018-01-04] MEDS: IPRATROPIUM/ALBUTEROL 0.5-2.5 MG/3 ML AMPUL NEB SCH ×4 (01:51→20:02)
[2018-01-04] MEDS: OXYCODONE-ACETAMINOPHEN 5-325 MG TABLET PO PRN ×3 (04:30→20:30)
[2018-01-04] MEDS: 1/2 NORMAL SALINE 1,000 ML IV PRN ×2 (04:32→20:24)
[2018-01-04] MEDS: LACTOBACILLUS ACIDOPHILUS 250 MG TAB PO SCH ×2 (06:15→17:05)
[2018-01-04] MEDS: PIPERACILLIN SODIUM/TAZOBACTAM 3.375 GM in NORMAL SALINE 100 ML IV SCH ×4 (06:15→23:05)
[2018-01-04] MEDS: ALPRAZOLAM 0.25 MG TABLET PO SCH ×3 (06:15→21:07)
[2018-01-04] MEDS: LANSOPRAZOLE 15 MG TAB.RAP.DR PO SCH (06:16)
--- NOTE | 2018-01-04 06:24 | RADIOLOGY REPORT (SQ) ---
EXAM DESCRIPTION: XR CHEST 1 VIEW COMPLETED DATE/TME: 01/04/2018 06:00 CLINICAL HISTORY: 77 years, Female, pna COMPARISON: 01/03/2018 chest x-ray NUMBER OF VIEWS: 1 TECHNIQUE: AP portable upright chest LIMITATIONS: None. FINDINGS: The heart size is stable. Left-sided pacing device. Atheromatous change thoracic aorta. PIC catheter in place. Persistent airspace opacities of the left lung base and right perihilar region. Tiny bibasilar effusions and/or pleural thickening. No pneumothorax. IMPRESSION: Little interval change copyright 2010 [email or web address]- All Rights Reserved
[2018-01-04 06:32] LABS: HEMATOCRIT 26.5 % (36.0-47.0); HEMOGLOBIN 8.2 g/dL (12.0-15.5); MEAN CORPUSCULAR HGB CONC 31.1 g/dL (32.0-36.0); MEAN CORPUSCULAR VOLUME 81 fl (80-97); PLATELET COUNT 608 10^3/uL (150-450); RED BLOOD COUNT 3.29 10^6/uL (3.72-5.28); RED CELL DISTRIBUTION WIDTH 19.2 % (11.5-14.0); WHITE BLOOD COUNT 12.5 10^3/uL (4.0-10.5)
[2018-01-04 06:35] LABS: ALANINE AMINOTRANSFERASE 19 U/L (9-52); ALBUMIN 2.8 g/dL (3.5-5.0); ALKALINE PHOSPHATASE 64 U/L (38-126); ANION GAP 12 (5-19); ASPARTATE AMINO TRANSFERASE 16 U/L (14-36); BILIRUBIN,DIRECT 0.1 mg/dL (0.0-0.4); BILIRUBIN,TOTAL 0.1 mg/dL (0.2-1.3); BLOOD UREA NITROGEN 19 mg/dL (7-20); CALCIUM 8.5 mg/dL (8.4-10.2); CARBON DIOXIDE 22 mmol/L (22-30); CHLORIDE 109 mmol/L (98-107); GLUCOSE 91 mg/dL (75-110); SODIUM 142.7 mmol/L (137-145); TOTAL PROTEIN 5.9 g/dL (6.3-8.2)
[2018-01-04 06:57] LABS: ABSOLUTE LYMPHOCYTES# (MANUAL) 1.8 10^3/uL (0.5-4.7); ABSOLUTE MONOCYTES # (MANUAL) 1.4 10^3/uL (0.1-1.4); ABSOLUTE NEUTROPHILS# (MANUAL) 8.8 10^3/uL (1.7-8.2); ANISOCYTOSIS 2+; BASOPHILS % (MANUAL) 1 % (0-2); EOSINOPHILS % (MANUAL) 4 % (0-6); LYMPHOCYTES % (MANUAL) 14 % (13-45); METAMYELOCYTES % (MANUAL) 2 % (0); MONOCYTES % (MANUAL) 11 % (3-13); OVALOCYTES SLIGHT; PLATELET COMMENT INCREASED; POIKILOCYTOSIS SLIGHT; POLYCHROMASIA SLIGHT; SEGMENTED NEUTROPHILS % (MAN) 68 % (42-78); TARGET CELLS SLIGHT; TEAR DROP CELLS SLIGHT; TOTAL CELLS COUNTED 100
--- NOTE | 2018-01-04 08:02 | PDOC PROGRESS REPORT ---
Subjective Progress Note for:: 01/04/18 Subjective:: Patient is currently on nasal cannula supplemental oxygen and reported satisfactory breathing efforts. No chest pain. No nausea or vomiting. Her appetite and po intake are improving. No reported fever or chills. Chest US revealed small left pleural effusion, less likely cause of her de-saturation. Reason For Visit: SEPSIS,LEUKEMOID REACTION,LEUKEMIA/LYMPHOMA, Physical Exam Vital Signs: Temp Pulse Resp BP Pulse Ox 97.2 F 81 23 H 106/55 L 100 01/04/18 07:33 01/04/18 01:52 01/04/18 06:07 01/04/18 06:07 01/04/18 06:07 Intake & Output 01/03/18 01/04/18 01/05/18 06:59 06:59 06:59 Intake Total 2630 2950 Output Total 3975 3725 30 Balance -1345 -775 -30 Weight 58.3 kg 56.7 kg Physical Exam: General appearance: PRESENT: remain on BiPAP support as indicated, thin Head exam: PRESENT: atraumatic, normocephalic Eye exam: PRESENT: conjunctiva pink, EOMI, PERRLA. ABSENT: pallor, scleral icterus Ear exam: PRESENT: normal external ear exam Mouth exam: PRESENT: moist Respiratory exam: PRESENT: Satisfactory air flow, decreased breath sounds - bilaterally GI/Abdominal exam: PRESENT: normal bowel sounds, soft. ABSENT: distended, guarding, mass, organomegaly, rebound, tenderness Extremities exam: ABSENT: pedal edema Musculoskeletal exam: PRESENT: ambulatory - related to multiple joints involvement with arthritis Neurological exam: PRESENT: alert, awake, oriented to person, oriented to place , oriented to time, oriented to situation, CN II-XII grossly intact. ABSENT: motor sensory deficit Psychiatric exam: PRESENT: appropriate affect, normal mood. ABSENT: homicidal ideation, suicidal ideation Skin exam: PRESENT: dry, intact, warm. ABSENT: cyanosis, rash Results Laboratory Results: 01/04/18 06:10 01/04/18 06:10 01/03/18 01/03/18 01/03/18 10:40 10:40 10:40 WBC 12.9 H RBC 3.62 L Hgb 9.1 L Hct 29.1 L MCV 80 MCH 25.2 L MCHC 31.3 L RDW 19.1 H Plt Count 650 H Seg Neutrophils % 73.1 Lymphocytes % 15.9 Monocytes % 8.8 Eosinophils % 1.8 Basophils % 0.4 Absolute Neutrophils 9.4 H Absolute Lymphocytes 2.1 Absolute Monocytes 1.1 Absolute Eosinophils 0.2 Absolute Basophils 0.1 Carbonic Acid 1.24 HCO3/H2CO3 Ratio 20:1 ABG pH 7.40 ABG pCO2 41.3 ABG pO2 79.7 L ABG HCO3 24.8 H ABG O2 Saturation 95.7 ABG Base Excess -0.1 FiO2 35% Sodium Potassium Chloride Carbon Dioxide Anion Gap BUN Creatinine Est GFR ( Amer) Est GFR (Non-Af Amer) Glucose Calcium Magnesium 1.7 Total Bilirubin AST ALT Alkaline Phosphatase Total Protein Albumin Stool Occult Blood 01/03/18 01/04/18 01/04/18 12:15 06:10 06:10 WBC 12.5 H RBC 3.29 L Hgb 8.2 L Hct 26.5 L MCV 81 MCH 25.0 L MCHC 31.1 L RDW 19.2 H Plt Count 608 H Seg Neutrophils % Not Reportable Lymphocytes % Not Reportable Monocytes % Not Reportable Eosinophils % Not Reportable Basophils % Not Reportable Absolute Neutrophils Not Reportable Absolute Lymphocytes Not Reportable Absolute Monocytes Not Reportable Absolute Eosinophils Not Reportable Absolute Basophils Not Reportable Carbonic Acid HCO3/H2CO3 Ratio ABG pH ABG pCO2 ABG pO2 ABG HCO3 ABG O2 Saturation ABG Base Excess FiO2 Sodium 142.7 Potassium 4.0 Chloride 109 H Carbon Dioxide 22 Anion Gap 12 BUN 19 Creatinine 1.24 Est GFR ( Amer) 51 L Est GFR (Non-Af Amer) 42 L Glucose 91 Calcium 8.5 Magnesium Total Bilirubin 0.1 L AST 16 ALT 19 Alkaline Phosphatase 64 Total Protein 5.9 L Albumin 2.8 L Stool Occult Blood NEGATIVE 12/24/17 12/24/17 12/24/17 07:56 07:56 13:50 Creatine Kinase 228 H 151 H CK-MB (CK-2) 7.37 H Troponin I < 0.012 12/24/17 13:50 Creatine Kinase CK-MB (CK-2) 6.20 H Troponin I < 0.012 Impressions: Interventional Vascular Procedure 01/02/18 00:00 IMPRESSION: SUCCESSFUL PLACEMENT OF A 5 FR DUAL LUMEN 34 CM PICC IN THE RIGHT BASILIC VEIN. PICC Line Insertion 01/02/18 00:00 IMPRESSION: SUCCESSFUL PLACEMENT OF A 5 FR DUAL LUMEN 34 CM PICC IN THE RIGHT BASILIC VEIN. Chest Ultrasound 01/03/18 00:00 IMPRESSION: Small amount of fluid in the left posterior costophrenic sulcus. This is similar compared to ultrasound 12/31/2017. Consider follow-up CT chest with IV contrast to assess for loculated left pleural fluid, given left lower lobe pneumonia. Chest X-Ray 01/04/18 06:00 IMPRESSION: Little interval change copyright 2011 [employer]- All Rights Reserved Assessment & Plan - Diagnosis (1) Acute respiratory failure Qualifiers: Respiratory failure complication: hypoxia and hypercapnia Qualified Code(s) : J96.01 - Acute respiratory failure with hypoxia; J96.02 - Acute respiratory failure with hypercapnia; J96.02 - Acute respiratory failure with hypercapnia; J96.02 - Acute respiratory failure with hypercapnia Is this a current diagnosis for this admission?: Yes (2) Lobar pneumonia, unspecified organism Is this a current diagnosis for this admission?: Yes (3) Chronic respiratory failure with hypoxia and hypercapnia Is this a current diagnosis for this admission?: Yes (4) History of pulmonary embolus (PE) Is this a current diagnosis for this admission?: Yes (5) H/O cardiac pacemaker Is this a current diagnosis for this admission?: Yes - Time Time Spent with patient: 25-34 minutes Medications reviewed and adjusted accordingly: Yes Anticipated discharge: SNF - for short term rehabilitation. Within: Other - Inpatient Certification Based on my medical assessment, after consideration of the patient's comorbidities, presenting symptoms, or acuity I expect that the services needed warrant INPATIENT care.: Yes I certify that my determination is in accordance with my understanding of Medicare's requirements for reasonable and necessary INPATIENT services [42 CFR 412.3e].: Yes Medical Necessity: Need Close Monitoring Due to Risk of Patient Decompensation, Need For IV Fluids, Need For Continuous Telemetry Monitoring, Need for Nebulizer Therapy and Monitoring of Response, Need for IV Antibiotics, Risk of Complication if Not Cared For in Hospital Post Hospital Care: D/C or Transfer Summary - Plan Summary Plan Summary: Down grade to IMCU. Continue IV antibiotic and antifungal therapy. Maintain on all other current medication management. PT/OT intervention. Possible discharge to SNF for short term rehabilitation.
[2018-01-04] MEDS: ACETYLCYSTEINE 20% SOLN 800 MG/4 ML VIAL.NEB NEB SCH ×2 (08:12→20:01)
[2018-01-04] MEDS: MONTELUKAST SODIUM 10 MG TABLET PO SCH (09:40)
[2018-01-04] MEDS: MULTIVIT-STRESS FORMULA/ZINC TABLET PO SCH (09:40)
[2018-01-04] MEDS: CITALOPRAM HYDROBROMIDE 20 MG TABLET PO SCH (09:40)
[2018-01-04] MEDS: ACETAZOLAMIDE 250 MG TABLET PO SCH ×2 (09:40→17:05)
[2018-01-04] MEDS: FUROSEMIDE INJ/PF 20 MG/2 ML SDV IV SCH ×2 (09:40→21:07)
[2018-01-04] MEDS: SODIUM BICARBONATE 650 MG TABLET PO SCH ×2 (09:40→21:06)
[2018-01-04] MEDS: ENOXAPARIN SODIUM INJ 30 MG/0.3 ML DISP.SYRIN SUBCUT SCH (09:42)
[2018-01-04] MEDS: MEGESTROL ACETATE SUSP 400 MG/10 ML UDCUP PO SCH (09:43)
[2018-01-04] MEDS: NORMAL SALINE 10 ML SDV (SCHEDULED) IV SCH ×2 (09:44→21:07)
[2018-01-04] MEDS: VANCOMYCIN HCL 1,000 MG in DEXTROSE 5%-WATER 250 ML IV SCH (09:53)
--- NOTE | 2018-01-04 13:36 | PDOC PROGRESS REPORT ---
Subjective Progress Note for:: 01/04/18 Subjective:: Patient without complaints Reason For Visit: SEPSIS,LEUKEMOID REACTION,LEUKEMIA/LYMPHOMA, Physical Exam Vital Signs: Temp Pulse Resp BP Pulse Ox 97.2 F 79 23 H 106/55 L 100 01/04/18 07:33 01/04/18 08:12 01/04/18 08:12 01/04/18 06:07 01/04/18 08:12 Intake & Output 01/03/18 01/04/18 01/05/18 06:59 06:59 06:59 Intake Total 2630 2950 Output Total 3975 3725 30 Balance -1345 -775 -30 Weight 58.3 kg 56.7 kg General appearance: PRESENT: no acute distress, cooperative, disheveled Head exam: PRESENT: atraumatic, normocephalic Eye exam: PRESENT: conjunctiva pale, EOMI. ABSENT: nystagmus, periorbital swelling, scleral icterus Mouth exam: PRESENT: dry mucosa, neck supple, tongue midline Neck exam: ABSENT: carotid bruit, JVD, lymphadenopathy, thyromegaly, tracheal deviation, tracheostomy Respiratory exam: PRESENT: decreased breath sounds, prolonged expiratory phas, rales, rhonchi, unlabored. ABSENT: retraction, stridor, tachypnea Cardiovascular exam: PRESENT: RRR, +S1, +S2 Pulses: PRESENT: normal radial pulses GI/Abdominal exam: PRESENT: soft. ABSENT: tenderness Gentrourinary exam: PRESENT: indwelling catheter Extremities exam: PRESENT: pedal edema. ABSENT: calf tenderness, clubbing, joint swelling Neurological exam: PRESENT: alert, awake Psychiatric exam: PRESENT: appropriate affect Skin exam: PRESENT: dry, warm Results Laboratory Results: 01/04/18 06:10 01/04/18 06:10 01/03/18 01/03/18 01/03/18 10:40 10:40 10:40 WBC 12.9 H RBC 3.62 L Hgb 9.1 L Hct 29.1 L MCV 80 MCH 25.2 L MCHC 31.3 L RDW 19.1 H Plt Count 650 H Seg Neutrophils % 73.1 Lymphocytes % 15.9 Monocytes % 8.8 Eosinophils % 1.8 Basophils % 0.4 Absolute Neutrophils 9.4 H Absolute Lymphocytes 2.1 Absolute Monocytes 1.1 Absolute Eosinophils 0.2 Absolute Basophils 0.1 Carbonic Acid 1.24 HCO3/H2CO3 Ratio 20:1 ABG pH 7.40 ABG pCO2 41.3 ABG pO2 79.7 L ABG HCO3 24.8 H ABG O2 Saturation 95.7 ABG Base Excess -0.1 FiO2 35% Sodium Potassium Chloride Carbon Dioxide Anion Gap BUN Creatinine Est GFR ( Amer) Est GFR (Non-Af Amer) Glucose Calcium Magnesium 1.7 Total Bilirubin AST ALT Alkaline Phosphatase Total Protein Albumin Stool Occult Blood 01/03/18 01/04/18 01/04/18 12:15 06:10 06:10 WBC 12.5 H RBC 3.29 L Hgb 8.2 L Hct 26.5 L MCV 81 MCH 25.0 L MCHC 31.1 L RDW 19.2 H Plt Count 608 H Seg Neutrophils % Not Reportable Lymphocytes % Not Reportable Monocytes % Not Reportable Eosinophils % Not Reportable Basophils % Not Reportable Absolute Neutrophils Not Reportable Absolute Lymphocytes Not Reportable Absolute Monocytes Not Reportable Absolute Eosinophils Not Reportable Absolute Basophils Not Reportable Carbonic Acid HCO3/H2CO3 Ratio ABG pH ABG pCO2 ABG pO2 ABG HCO3 ABG O2 Saturation ABG Base Excess FiO2 Sodium 142.7 Potassium 4.0 Chloride 109 H Carbon Dioxide 22 Anion Gap 12 BUN 19 Creatinine 1.24 Est GFR ( Amer) 51 L Est GFR (Non-Af Amer) 42 L Glucose 91 Calcium 8.5 Magnesium Total Bilirubin 0.1 L AST 16 ALT 19 Alkaline Phosphatase 64 Total Protein 5.9 L Albumin 2.8 L Stool Occult Blood NEGATIVE 12/24/17 12/24/17 12/24/17 07:56 07:56 13:50 Creatine Kinase 228 H 151 H CK-MB (CK-2) 7.37 H Troponin I < 0.012 12/24/17 13:50 Creatine Kinase CK-MB (CK-2) 6.20 H Troponin I < 0.012 Impressions: Interventional Vascular Procedure 01/02/18 00:00 IMPRESSION: SUCCESSFUL PLACEMENT OF A 5 FR DUAL LUMEN 34 CM PICC IN THE RIGHT BASILIC VEIN. PICC Line Insertion 01/02/18 00:00 IMPRESSION: SUCCESSFUL PLACEMENT OF A 5 FR DUAL LUMEN 34 CM PICC IN THE RIGHT BASILIC VEIN. Chest Ultrasound 01/03/18 00:00 IMPRESSION: Small amount of fluid in the left posterior costophrenic sulcus. This is similar compared to ultrasound 12/31/2017. Consider follow-up CT chest with IV contrast to assess for loculated left pleural fluid, given left lower lobe pneumonia. Chest X-Ray 01/04/18 06:00 IMPRESSION: Little interval change copyright 2011 [employer]- All Rights Reserved Assessment & Plan - Diagnosis (1) Acute respiratory failure Qualifiers: Respiratory failure complication: hypoxia and hypercapnia Qualified Code(s) : J96.01 - Acute respiratory failure with hypoxia; J96.02 - Acute respiratory failure with hypercapnia; J96.02 - Acute respiratory failure with hypercapnia; J96.02 - Acute respiratory failure with hypercapnia Is this a current diagnosis for this admission?: Yes Plan: primarily BiPAP with high flow oxygen as a respite as the latter is more comfortable (2) Bandemia Is this a current diagnosis for this admission?: No (3) Metabolic acidosis Is this a current diagnosis for this admission?: Yes Plan: decrease bicarb to 650 (4) Pneumonia Qualifiers: Pneumonia type: due to unspecified organism Laterality: left Lung location: unspecified part of lung Qualified Code(s): J18.9 - Pneumonia, unspecified organism Is this a current diagnosis for this admission?: Yes Plan: wbc Slightly elevated unchanged from 24 hours ago (5) Septic shock Is this a current diagnosis for this admission?: No (6) GERD (gastroesophageal reflux disease) Qualifiers: Is this a current diagnosis for this admission?: Yes Plan: H2 logan - Time Total Critical Time (Minutes): 40
[2018-01-04] MEDS: OXYCODONE HCL IR 5 MG TABLET PO PRN ×2 (14:07→23:27)
[2018-01-04] MEDS: MELATONIN 3 MG TABLET PO SCH (21:06)
[2018-01-05] MEDS: IPRATROPIUM/ALBUTEROL 0.5-2.5 MG/3 ML AMPUL NEB SCH ×4 (02:13→20:23)
[2018-01-05] MEDS: LACTOBACILLUS ACIDOPHILUS 250 MG TAB PO SCH ×2 (05:15→17:12)
[2018-01-05] MEDS: ALPRAZOLAM 0.25 MG TABLET PO SCH ×3 (05:15→21:08)
[2018-01-05] MEDS: OXYCODONE-ACETAMINOPHEN 5-325 MG TABLET PO PRN ×2 (05:15→21:08)
[2018-01-05] MEDS: PIPERACILLIN SODIUM/TAZOBACTAM 3.375 GM in NORMAL SALINE 100 ML IV SCH ×4 (05:15→23:26)
[2018-01-05] MEDS: LANSOPRAZOLE 15 MG TAB.RAP.DR PO SCH (05:15)
[2018-01-05 06:43] LABS: ARTERIAL BLOOD BASE EXCESS -3.8 mmol/L; ARTERIAL BLOOD H2CO3 1.37 mmol/L (1.05-1.35); ARTERIAL BLOOD HCO3 22.4 mmol/L (20-24); ARTERIAL BLOOD O2 SATURATION 93.4 % (94-98); ARTERIAL BLOOD PCO2 45.6 mmHg (35-45); ARTERIAL BLOOD PH 7.31 (7.35-7.45); ARTERIAL BLOOD PO2 73.4 mmHg (80-100); ARTERIAL BLOOD TOTAL CO2 23.8 mmol/L (21-25)
[2018-01-05 06:45] LABS: ARTERIAL BLOOD FIO2 35%
[2018-01-05 06:51] LABS: ANION GAP 18 (5-19); BLOOD UREA NITROGEN 17 mg/dL (7-20); CALCIUM 7.5 mg/dL (8.4-10.2); CARBON DIOXIDE 19 mmol/L (22-30); CHLORIDE 114 mmol/L (98-107); GLUCOSE 81 mg/dL (75-110); POTASSIUM 3.4 mmol/L (3.6-5.0); SODIUM 150.9 mmol/L (137-145)
[2018-01-05 07:23] LABS: HEMATOCRIT 24.3 % (36.0-47.0); MEAN CORPUSCULAR HEMOGLOBIN 25.1 pg (27.0-33.4); MEAN CORPUSCULAR HGB CONC 30.6 g/dL (32.0-36.0); MEAN CORPUSCULAR VOLUME 82 fl (80-97); PLATELET COUNT 574 10^3/uL (150-450); RED BLOOD COUNT 2.97 10^6/uL (3.72-5.28); RED CELL DISTRIBUTION WIDTH 19.7 % (11.5-14.0); WHITE BLOOD COUNT 10.3 10^3/uL (4.0-10.5)
[2018-01-05 07:35] LABS: HEMOGLOBIN 7.4 g/dL (12.0-15.5)
[2018-01-05] MEDS: ACETYLCYSTEINE 20% SOLN 800 MG/4 ML VIAL.NEB NEB SCH ×2 (07:59→20:24)
[2018-01-05] MEDS ORDERED: FUROSEMIDE INJ/PF 20 MG/2 ML SDV IV PRN (08:30)
[2018-01-05] MEDS: POTASSIUM CHLORIDE 10 MEQ CAPSULE.ER PO SCH ×2 (09:03→10:59)
[2018-01-05] MEDS: OXYCODONE HCL IR 5 MG TABLET PO PRN ×2 (09:18→23:34)
[2018-01-05] MEDS: MEGESTROL ACETATE SUSP 400 MG/10 ML UDCUP PO SCH (09:19)
[2018-01-05] MEDS: CITALOPRAM HYDROBROMIDE 20 MG TABLET PO SCH (09:20)
[2018-01-05] MEDS: SODIUM BICARBONATE 650 MG TABLET PO SCH ×2 (09:20→21:08)
[2018-01-05] MEDS: ACETAZOLAMIDE 250 MG TABLET PO SCH ×2 (09:21→17:12)
[2018-01-05] MEDS: ENOXAPARIN SODIUM INJ 30 MG/0.3 ML DISP.SYRIN SUBCUT SCH (09:22)
[2018-01-05] MEDS: MONTELUKAST SODIUM 10 MG TABLET PO SCH (09:23)
[2018-01-05] MEDS: NORMAL SALINE 10 ML SDV (SCHEDULED) IV SCH ×2 (09:23→21:08)
[2018-01-05] MEDS: MULTIVIT-STRESS FORMULA/ZINC TABLET PO SCH (09:23)
[2018-01-05] MEDS: VANCOMYCIN HCL 1,000 MG in DEXTROSE 5%-WATER 250 ML IV SCH (09:27)
[2018-01-05] MEDS: 1/2 NORMAL SALINE 1,000 ML IV PRN (13:12)
[2018-01-05] MEDS: NORMAL SALINE 10 ML SDV (AFTER EACH USE) IV PRN ×2 (15:55→23:27)
[2018-01-05] MEDS: ACETAMINOPHEN 325 MG TABLET PO PRN (17:12)
[2018-01-05 18:03] LABS: HEMATOCRIT 31.6 % (36.0-47.0); HEMOGLOBIN 10.2 g/dL (12.0-15.5); RED BLOOD COUNT 3.81 10^6/uL (3.72-5.28); WHITE BLOOD COUNT 10.5 10^3/uL (4.0-10.5)
[2018-01-05 18:04] LABS: LYMPHOCYTES % (AUTO) 17.5 % (13-45); MEAN CORPUSCULAR HEMOGLOBIN 26.7 pg (27.0-33.4); MEAN CORPUSCULAR HGB CONC 32.2 g/dL (32.0-36.0); MEAN CORPUSCULAR VOLUME 83 fl (80-97); MONOCYTES % (AUTO) 15.7 % (3-13); PLATELET COUNT 565 10^3/uL (150-450); RED CELL DISTRIBUTION WIDTH 18.2 % (11.5-14.0); SEGMENTED NEUTROPHILS % (AUTO) 63.2 % (42-78)
[2018-01-05 18:05] LABS: ABSOLUTE BASOPHILS # (AUTO) 0.1 10^3/uL (0.0-0.2); ABSOLUTE EOSINOPHILS # (AUTO) 0.3 10^3/uL (0.0-0.6); ABSOLUTE LYMPHOCYTES (AUTO) 1.8 10^3/uL (0.5-4.7); ABSOLUTE MONOCYTES (AUTO) 1.6 10^3/uL (0.1-1.4); ABSOLUTE NEUT (AUTO) 6.6 10^3/uL (1.7-8.2); BASOPHILS % (AUTO) 0.6 % (0-2); TOTAL CELLS COUNTED % (AUTO) 100 %
--- NOTE | 2018-01-05 19:54 | PDOC PROGRESS REPORT ---
Subjective Progress Note for:: 01/05/18 Subjective:: Patient denied any chest pain. Currently off supplemental oxygen and completed feeding herself breakfast. Intake remain a challenge. No nausea or vomiting. No reported fever or chills. Reason For Visit: SEPSIS,LEUKEMOID REACTION,LEUKEMIA/LYMPHOMA, Physical Exam Vital Signs: Temp Pulse Resp BP Pulse Ox 97.7 F 77 20 134/50 H 97 01/05/18 07:23 01/05/18 02:10 01/05/18 06:38 01/05/18 06:38 01/05/18 06:38 Intake & Output 01/04/18 01/05/18 01/06/18 06:59 06:59 06:59 Intake Total 3050 1887 Output Total 3725 3010 Balance -675 -1123 Weight 56.7 kg 53 kg Physical Exam: General appearance: PRESENT: remain on BiPAP support and supplemental oxygen via nasal cannula as indicated, thin Head exam: PRESENT: atraumatic, normocephalic Eye exam: PRESENT: conjunctiva pink, EOMI, PERRLA. ABSENT: pallor, scleral icterus Ear exam: PRESENT: normal external ear exam Mouth exam: PRESENT: moist Respiratory exam: PRESENT: Satisfactory air flow, decreased breath sounds - bilaterally GI/Abdominal exam: PRESENT: normal bowel sounds, soft. ABSENT: distended, guarding, mass, organomegaly, rebound, tenderness Extremities exam: ABSENT: pedal edema Musculoskeletal exam: PRESENT: ambulatory - related to multiple joints involvement with arthritis Neurological exam: PRESENT: alert, awake, oriented to person, oriented to place , oriented to time, oriented to situation, CN II-XII grossly intact. ABSENT: motor sensory deficit Psychiatric exam: PRESENT: appropriate affect, normal mood. ABSENT: homicidal ideation, suicidal ideation Skin exam: PRESENT: dry, intact, warm. ABSENT: cyanosis, rash Results Laboratory Results: 01/05/18 05:30 01/05/18 05:30 01/04/18 01/05/18 01/05/18 10:10 05:30 05:30 WBC 10.3 RBC 2.97 L Hgb 7.4 L Hct 24.3 L MCV 82 MCH 25.1 L MCHC 30.6 L RDW 19.7 H Plt Count 574 H Carbonic Acid Cancelled HCO3/H2CO3 Ratio Cancelled ABG pH Cancelled ABG pCO2 Cancelled ABG pO2 Cancelled ABG HCO3 Cancelled ABG O2 Saturation Cancelled ABG Base Excess Cancelled FiO2 Cancelled Sodium Potassium Chloride Carbon Dioxide Anion Gap BUN Creatinine Est GFR ( Amer) Est GFR (Non-Af Amer) Glucose Calcium Magnesium 01/05/18 01/05/18 05:30 06:25 WBC RBC Hgb Hct MCV MCH MCHC RDW Plt Count Carbonic Acid 1.37 H HCO3/H2CO3 Ratio 16:1 ABG pH 7.31 L ABG pCO2 45.6 H ABG pO2 73.4 L ABG HCO3 22.4 ABG O2 Saturation 93.4 L ABG Base Excess -3.8 FiO2 35% Sodium 150.9 H Potassium 3.4 L Chloride 114 H Carbon Dioxide 19 L Anion Gap 18 BUN 17 Creatinine 0.90 Est GFR ( Amer) > 60 Est GFR (Non-Af Amer) > 60 Glucose 81 Calcium 7.5 L Magnesium 1.8 12/24/17 12/24/17 12/24/17 07:56 07:56 13:50 Creatine Kinase 228 H 151 H CK-MB (CK-2) 7.37 H Troponin I < 0.012 12/24/17 13:50 Creatine Kinase CK-MB (CK-2) 6.20 H Troponin I < 0.012 Impressions: Interventional Vascular Procedure 01/02/18 00:00 IMPRESSION: SUCCESSFUL PLACEMENT OF A 5 FR DUAL LUMEN 34 CM PICC IN THE RIGHT BASILIC VEIN. PICC Line Insertion 01/02/18 00:00 IMPRESSION: SUCCESSFUL PLACEMENT OF A 5 FR DUAL LUMEN 34 CM PICC IN THE RIGHT BASILIC VEIN. Chest Ultrasound 01/03/18 00:00 IMPRESSION: Small amount of fluid in the left posterior costophrenic sulcus. This is similar compared to ultrasound 12/31/2017. Consider follow-up CT chest with IV contrast to assess for loculated left pleural fluid, given left lower lobe pneumonia. Chest X-Ray 01/04/18 06:00 IMPRESSION: Little interval change copyright 2011 [employer]- All Rights Reserved Assessment & Plan - Diagnosis (1) Acute respiratory failure Qualifiers: Respiratory failure complication: hypoxia and hypercapnia Qualified Code(s) : J96.01 - Acute respiratory failure with hypoxia; J96.02 - Acute respiratory failure with hypercapnia; J96.02 - Acute respiratory failure with hypercapnia; J96.02 - Acute respiratory failure with hypercapnia Is this a current diagnosis for this admission?: Yes (2) Lobar pneumonia, unspecified organism Is this a current diagnosis for this admission?: Yes (3) Chronic respiratory failure with hypoxia and hypercapnia Is this a current diagnosis for this admission?: Yes (4) History of pulmonary embolus (PE) Is this a current diagnosis for this admission?: Yes (5) H/O cardiac pacemaker Is this a current diagnosis for this admission?: Yes - Time Time Spent with patient: 25-34 minutes Medications reviewed and adjusted accordingly: Yes Anticipated discharge: SNF Within: Other - Inpatient Certification Based on my medical assessment, after consideration of the patient's comorbidities, presenting symptoms, or acuity I expect that the services needed warrant INPATIENT care.: Yes I certify that my determination is in accordance with my understanding of Medicare's requirements for reasonable and necessary INPATIENT services [42 CFR 412.3e].: Yes Medical Necessity: Need Close Monitoring Due to Risk of Patient Decompensation, Need For IV Fluids, Need For Continuous Telemetry Monitoring, Need for Nebulizer Therapy and Monitoring of Response, Need for IV Antibiotics, Risk of Complication if Not Cared For in Hospital Post Hospital Care: D/C or Transfer Summary - Plan Summary Plan Summary: She will receive 2 units PRBC transfusion due to drop in her hemoglobin below 8 gm/dL. She will receive potassium replacement for hypokalemia. She will continue IV antibiotic and antifungal therapy. Emphasized physical and occupation therapy participation. Continue all other current medication management.
[2018-01-05] MEDS: MELATONIN 3 MG TABLET PO SCH (21:08)
[2018-01-06] MEDS: IPRATROPIUM/ALBUTEROL 0.5-2.5 MG/3 ML AMPUL NEB SCH ×4 (02:13→20:31)
[2018-01-06] MEDS: 1/2 NORMAL SALINE 1,000 ML IV PRN ×2 (02:50→21:13)
[2018-01-06] MEDS: LACTOBACILLUS ACIDOPHILUS 250 MG TAB PO SCH ×2 (05:06→18:22)
[2018-01-06] MEDS: ALPRAZOLAM 0.25 MG TABLET PO SCH ×3 (05:06→21:13)
[2018-01-06] MEDS: LANSOPRAZOLE 15 MG TAB.RAP.DR PO SCH (05:06)
[2018-01-06] MEDS: PIPERACILLIN SODIUM/TAZOBACTAM 3.375 GM in NORMAL SALINE 100 ML IV SCH ×4 (05:06→23:23)
[2018-01-06] MEDS: OXYCODONE-ACETAMINOPHEN 5-325 MG TABLET PO PRN ×2 (05:15→21:13)
[2018-01-06] MEDS: ACETYLCYSTEINE 20% SOLN 800 MG/4 ML VIAL.NEB NEB SCH ×2 (08:01→20:31)
[2018-01-06] MEDS: MEGESTROL ACETATE SUSP 400 MG/10 ML UDCUP PO SCH (10:01)
[2018-01-06] MEDS: CITALOPRAM HYDROBROMIDE 20 MG TABLET PO SCH (10:02)
[2018-01-06] MEDS: ACETAZOLAMIDE 250 MG TABLET PO SCH ×2 (10:02→18:22)
[2018-01-06] MEDS: MONTELUKAST SODIUM 10 MG TABLET PO SCH (10:02)
[2018-01-06] MEDS: VANCOMYCIN HCL 1,000 MG in DEXTROSE 5%-WATER 250 ML IV SCH (10:02)
[2018-01-06] MEDS: MULTIVIT-STRESS FORMULA/ZINC TABLET PO SCH (10:02)
[2018-01-06] MEDS: SODIUM BICARBONATE 650 MG TABLET PO SCH ×2 (10:02→21:12)
[2018-01-06] MEDS: ENOXAPARIN SODIUM INJ 30 MG/0.3 ML DISP.SYRIN SUBCUT SCH (10:03)
[2018-01-06] MEDS: NORMAL SALINE 10 ML SDV (SCHEDULED) IV SCH ×2 (10:06→21:13)
--- NOTE | 2018-01-06 16:05 | PDOC PROGRESS REPORT ---
Subjective Progress Note for:: 01/06/18 Subjective:: Patient denied any chest pain. Remain on supplemental oxygen via nasal cannula during daytime and BiPAP support at night while sleeping. No nausea or vomiting. No reported fever or chills. Did not participate in PT session today due to fatigue. Reason For Visit: SEPSIS,LEUKEMOID REACTION,LEUKEMIA/LYMPHOMA, Physical Exam Vital Signs: Temp Pulse Resp BP Pulse Ox 97.6 F 94 23 H 120/46 L 97 01/06/18 15:50 01/06/18 15:50 01/06/18 15:50 01/06/18 15:50 01/06/18 15:50 Intake & Output 01/05/18 01/06/18 01/07/18 06:59 06:59 06:59 Intake Total 1887 3858 936 Output Total 3010 3300 500 Balance -1123 558 436 Weight 53 kg 56.5 kg Physical Exam: General appearance: PRESENT: remain on BiPAP support and supplemental oxygen via nasal cannula as indicated, thin Head exam: PRESENT: atraumatic, normocephalic Eye exam: PRESENT: conjunctiva pink, EOMI, PERRLA. ABSENT: pallor, scleral icterus Ear exam: PRESENT: normal external ear exam Mouth exam: PRESENT: moist Respiratory exam: PRESENT: Satisfactory air flow, decreased breath sounds - bilaterally GI/Abdominal exam: PRESENT: normal bowel sounds, soft. ABSENT: distended, guarding, mass, organomegaly, rebound, tenderness Extremities exam: ABSENT: pedal edema Musculoskeletal exam: PRESENT: ambulatory - related to multiple joints involvement with arthritis Neurological exam: PRESENT: alert, awake, oriented to person, oriented to place , oriented to time, oriented to situation, CN II-XII grossly intact. ABSENT: motor sensory deficit Psychiatric exam: PRESENT: appropriate affect, normal mood. ABSENT: homicidal ideation, suicidal ideation Skin exam: PRESENT: dry, intact, warm. ABSENT: cyanosis, rash Results Laboratory Results: 01/05/18 17:19 01/05/18 13:21 01/05/18 17:19 WBC 10.5 RBC 3.81 Hgb 10.2 L D Hct 31.6 L MCV 83 MCH 26.7 L MCHC 32.2 RDW 18.2 H Plt Count 565 H Seg Neutrophils % 63.2 Lymphocytes % 17.5 Monocytes % 15.7 H Eosinophils % 3.0 Basophils % 0.6 Absolute Neutrophils 6.6 Absolute Lymphocytes 1.8 Absolute Monocytes 1.6 H Absolute Eosinophils 0.3 Absolute Basophils 0.1 12/24/17 12/24/17 12/24/17 07:56 07:56 13:50 Creatine Kinase 228 H 151 H CK-MB (CK-2) 7.37 H Troponin I < 0.012 12/24/17 13:50 Creatine Kinase CK-MB (CK-2) 6.20 H Troponin I < 0.012 Impressions: Interventional Vascular Procedure 01/02/18 00:00 IMPRESSION: SUCCESSFUL PLACEMENT OF A 5 FR DUAL LUMEN 34 CM PICC IN THE RIGHT BASILIC VEIN. PICC Line Insertion 01/02/18 00:00 IMPRESSION: SUCCESSFUL PLACEMENT OF A 5 FR DUAL LUMEN 34 CM PICC IN THE RIGHT BASILIC VEIN. Chest Ultrasound 01/03/18 00:00 IMPRESSION: Small amount of fluid in the left posterior costophrenic sulcus. This is similar compared to ultrasound 12/31/2017. Consider follow-up CT chest with IV contrast to assess for loculated left pleural fluid, given left lower lobe pneumonia. Chest X-Ray 01/04/18 06:00 IMPRESSION: Little interval change copyright 2011 [employer]- All Rights Reserved Assessment & Plan - Diagnosis (1) Acute respiratory failure Qualifiers: Respiratory failure complication: hypoxia and hypercapnia Qualified Code(s) : J96.01 - Acute respiratory failure with hypoxia; J96.02 - Acute respiratory failure with hypercapnia; J96.02 - Acute respiratory failure with hypercapnia; J96.02 - Acute respiratory failure with hypercapnia Is this a current diagnosis for this admission?: Yes (2) Lobar pneumonia, unspecified organism Is this a current diagnosis for this admission?: Yes (3) Chronic respiratory failure with hypoxia and hypercapnia Is this a current diagnosis for this admission?: Yes (4) History of pulmonary embolus (PE) Is this a current diagnosis for this admission?: Yes (5) H/O cardiac pacemaker Is this a current diagnosis for this admission?: Yes - Time Time Spent with patient: 25-34 minutes Medications reviewed and adjusted accordingly: Yes Anticipated discharge: SNF Within: Other - Inpatient Certification Based on my medical assessment, after consideration of the patient's comorbidities, presenting symptoms, or acuity I expect that the services needed warrant INPATIENT care.: Yes I certify that my determination is in accordance with my understanding of Medicare's requirements for reasonable and necessary INPATIENT services [42 CFR 412.3e].: Yes Medical Necessity: Need Close Monitoring Due to Risk of Patient Decompensation, Need For IV Fluids, Need For Continuous Telemetry Monitoring, Need for IV Antibiotics, Risk of Complication if Not Cared For in Hospital Post Hospital Care: D/C or Transfer Summary - Plan Summary Plan Summary: Continue I antibiotic coverage. Encourage mobilization. D/C indwelling gar catheter for bedside commode. Follow up on d/c discharge planner regarding SNF placement for short term rehabilitation.
[2018-01-06] MEDS: MELATONIN 3 MG TABLET PO SCH (21:12)
[2018-01-07] MEDS: IPRATROPIUM/ALBUTEROL 0.5-2.5 MG/3 ML AMPUL NEB SCH ×4 (02:37→20:12)
[2018-01-07] MEDS: PIPERACILLIN SODIUM/TAZOBACTAM 3.375 GM in NORMAL SALINE 100 ML IV SCH ×4 (05:30→23:09)
[2018-01-07] MEDS: LACTOBACILLUS ACIDOPHILUS 250 MG TAB PO SCH ×2 (05:30→18:23)
[2018-01-07] MEDS: ALPRAZOLAM 0.25 MG TABLET PO SCH ×3 (05:30→22:24)
[2018-01-07] MEDS: LANSOPRAZOLE 15 MG TAB.RAP.DR PO SCH (05:31)
[2018-01-07] MEDS: OXYCODONE HCL IR 5 MG TABLET PO PRN (05:32)
[2018-01-07] MEDS: ACETAMINOPHEN 325 MG TABLET PO PRN (05:32)
[2018-01-07] MEDS: ACETYLCYSTEINE 20% SOLN 800 MG/4 ML VIAL.NEB NEB SCH ×2 (08:16→20:12)
[2018-01-07] MEDS: MONTELUKAST SODIUM 10 MG TABLET PO SCH (09:23)
[2018-01-07] MEDS: MULTIVIT-STRESS FORMULA/ZINC TABLET PO SCH (09:23)
[2018-01-07] MEDS: SODIUM BICARBONATE 650 MG TABLET PO SCH ×2 (09:23→22:24)
[2018-01-07] MEDS: ACETAZOLAMIDE 250 MG TABLET PO SCH ×2 (09:23→18:23)
[2018-01-07] MEDS: CITALOPRAM HYDROBROMIDE 20 MG TABLET PO SCH (09:24)
[2018-01-07] MEDS: ENOXAPARIN SODIUM INJ 30 MG/0.3 ML DISP.SYRIN SUBCUT SCH (09:24)
[2018-01-07] MEDS: MEGESTROL ACETATE SUSP 400 MG/10 ML UDCUP PO SCH (09:26)
[2018-01-07] MEDS: NORMAL SALINE 10 ML SDV (SCHEDULED) IV SCH ×2 (09:26→22:26)
--- NOTE | 2018-01-07 18:07 | PDOC PROGRESS REPORT ---
Subjective Progress Note for:: 01/07/18 Subjective:: Patient seen by the bedside, no new complaints Reason For Visit: SEPSIS,LEUKEMOID REACTION,LEUKEMIA/LYMPHOMA, Physical Exam Vital Signs: Temp Pulse Resp BP Pulse Ox 98.9 F 96 18 135/51 H 95 01/07/18 16:14 01/07/18 16:14 01/07/18 16:14 01/07/18 16:14 01/07/18 16:14 Intake & Output 01/06/18 01/07/18 01/08/18 06:59 06:59 06:59 Intake Total 3858 3250 757 Output Total 3300 1700 2550 Balance 558 1550 -1793 Weight 56.5 kg 55.3 kg General appearance: PRESENT: no acute distress Respiratory exam: PRESENT: clear to auscultation luci Cardiovascular exam: PRESENT: +S1, +S2 GI/Abdominal exam: PRESENT: soft Neurological exam: PRESENT: alert Results Laboratory Results: 01/05/18 17:19 01/05/18 13:21 12/24/17 12/24/17 12/24/17 07:56 07:56 13:50 Creatine Kinase 228 H 151 H CK-MB (CK-2) 7.37 H Troponin I < 0.012 12/24/17 13:50 Creatine Kinase CK-MB (CK-2) 6.20 H Troponin I < 0.012 Impressions: Interventional Vascular Procedure 01/02/18 00:00 IMPRESSION: SUCCESSFUL PLACEMENT OF A 5 FR DUAL LUMEN 34 CM PICC IN THE RIGHT BASILIC VEIN. PICC Line Insertion 01/02/18 00:00 IMPRESSION: SUCCESSFUL PLACEMENT OF A 5 FR DUAL LUMEN 34 CM PICC IN THE RIGHT BASILIC VEIN. Chest Ultrasound 01/03/18 00:00 IMPRESSION: Small amount of fluid in the left posterior costophrenic sulcus. This is similar compared to ultrasound 12/31/2017. Consider follow-up CT chest with IV contrast to assess for loculated left pleural fluid, given left lower lobe pneumonia. Chest X-Ray 01/04/18 06:00 IMPRESSION: Little interval change copyright 2011 [employer]- All Rights Reserved Assessment & Plan - Diagnosis (1) Septic shock Is this a current diagnosis for this admission?: Yes (2) Acute respiratory acidosis Is this a current diagnosis for this admission?: Yes (3) Pneumonia Qualifiers: Pneumonia type: due to unspecified organism Laterality: left Lung location: lower lobe of lung Qualified Code(s): J18.1 - Lobar pneumonia, unspecified organism Is this a current diagnosis for this admission?: Yes (4) Leukemoid reaction Is this a current diagnosis for this admission?: Yes (5) Acute kidney injury Is this a current diagnosis for this admission?: Yes
[2018-01-07] MEDS: 1/2 NORMAL SALINE 1,000 ML IV PRN (18:25)
[2018-01-07] MEDS: OXYCODONE-ACETAMINOPHEN 5-325 MG TABLET PO PRN (22:25)
[2018-01-07] MEDS: MELATONIN 3 MG TABLET PO SCH (22:40)
[2018-01-08] MEDS: IPRATROPIUM/ALBUTEROL 0.5-2.5 MG/3 ML AMPUL NEB SCH ×4 (02:15→19:54)
[2018-01-08] MEDS: PIPERACILLIN SODIUM/TAZOBACTAM 3.375 GM in NORMAL SALINE 100 ML IV SCH (05:02)
[2018-01-08] MEDS: LACTOBACILLUS ACIDOPHILUS 250 MG TAB PO SCH ×2 (05:02→18:01)
[2018-01-08] MEDS: LANSOPRAZOLE 15 MG TAB.RAP.DR PO SCH (05:02)
[2018-01-08] MEDS: ALPRAZOLAM 0.25 MG TABLET PO SCH ×3 (05:02→21:10)
[2018-01-08] MEDS: OXYCODONE HCL IR 5 MG TABLET PO PRN (06:06)
[2018-01-08] MEDS: OXYCODONE-ACETAMINOPHEN 5-325 MG TABLET PO PRN ×2 (06:24→21:11)
[2018-01-08] MEDS: VANCOMYCIN HCL 1,000 MG in DEXTROSE 5%-WATER 250 ML IV SCH ×2 (07:17→18:02)
[2018-01-08] MEDS: ACETYLCYSTEINE 20% SOLN 800 MG/4 ML VIAL.NEB NEB SCH ×2 (08:26→19:54)
[2018-01-08] MEDS: CITALOPRAM HYDROBROMIDE 20 MG TABLET PO SCH (10:07)
[2018-01-08] MEDS: SODIUM BICARBONATE 650 MG TABLET PO SCH ×2 (10:08→21:10)
[2018-01-08] MEDS: MULTIVIT-STRESS FORMULA/ZINC TABLET PO SCH (10:08)
[2018-01-08] MEDS: ACETAZOLAMIDE 250 MG TABLET PO SCH ×2 (10:08→18:01)
[2018-01-08] MEDS: MONTELUKAST SODIUM 10 MG TABLET PO SCH (10:08)
[2018-01-08] MEDS: ENOXAPARIN SODIUM INJ 30 MG/0.3 ML DISP.SYRIN SUBCUT SCH (10:08)
[2018-01-08] MEDS: NORMAL SALINE 10 ML SDV (SCHEDULED) IV SCH ×2 (10:09→21:10)
[2018-01-08] MEDS: MEGESTROL ACETATE SUSP 400 MG/10 ML UDCUP PO SCH (10:09)
[2018-01-08 18:14] LABS: VANCOMYCIN,TROUGH 13.7 ug/mL (5.0-20.0)
--- NOTE | 2018-01-08 18:37 | PDOC PROGRESS REPORT ---
Subjective Progress Note for:: 01/08/18 Subjective:: Patient seen by the bedside, very severe COPD, no new complaints Reason For Visit: SEPSIS,LEUKEMOID REACTION,LEUKEMIA/LYMPHOMA, Physical Exam Vital Signs: Temp Pulse Resp BP Pulse Ox 97.6 F 89 28 H 110/56 L 94 01/08/18 16:00 01/08/18 16:00 01/08/18 16:00 01/08/18 16:00 01/08/18 14:00 Intake & Output 01/07/18 01/08/18 01/09/18 06:59 06:59 06:59 Intake Total 3250 2675 678 Output Total 1700 4450 900 Balance 4200 -7445 -391 Weight 55.3 kg 59.2 kg General appearance: PRESENT: no acute distress Eye exam: PRESENT: PERRLA Respiratory exam: PRESENT: rhonchi Cardiovascular exam: PRESENT: +S1, +S2 GI/Abdominal exam: PRESENT: soft Neurological exam: PRESENT: alert Results Laboratory Results: 01/05/18 17:19 01/05/18 13:21 12/24/17 12/24/17 12/24/17 07:56 07:56 13:50 Creatine Kinase 228 H 151 H CK-MB (CK-2) 7.37 H Troponin I < 0.012 12/24/17 13:50 Creatine Kinase CK-MB (CK-2) 6.20 H Troponin I < 0.012 Impressions: Interventional Vascular Procedure 01/02/18 00:00 IMPRESSION: SUCCESSFUL PLACEMENT OF A 5 FR DUAL LUMEN 34 CM PICC IN THE RIGHT BASILIC VEIN. PICC Line Insertion 01/02/18 00:00 IMPRESSION: SUCCESSFUL PLACEMENT OF A 5 FR DUAL LUMEN 34 CM PICC IN THE RIGHT BASILIC VEIN. Chest Ultrasound 01/03/18 00:00 IMPRESSION: Small amount of fluid in the left posterior costophrenic sulcus. This is similar compared to ultrasound 12/31/2017. Consider follow-up CT chest with IV contrast to assess for loculated left pleural fluid, given left lower lobe pneumonia. Chest X-Ray 01/04/18 06:00 IMPRESSION: Little interval change copyright 2011 [employer]- All Rights Reserved Assessment & Plan - Diagnosis (1) Septic shock Is this a current diagnosis for this admission?: Yes (2) Acute respiratory acidosis Is this a current diagnosis for this admission?: Yes (3) Pneumonia Qualifiers: Pneumonia type: due to unspecified organism Laterality: left Lung location: lower lobe of lung Qualified Code(s): J18.1 - Lobar pneumonia, unspecified organism Is this a current diagnosis for this admission?: Yes (4) Leukemoid reaction Is this a current diagnosis for this admission?: Yes (5) Acute kidney injury Is this a current diagnosis for this admission?: Yes - Plan Summary Plan Summary: Continue treatment
[2018-01-08] MEDS: MELATONIN 3 MG TABLET PO SCH (22:39)
[2018-01-09] MEDS: IPRATROPIUM/ALBUTEROL 0.5-2.5 MG/3 ML AMPUL NEB SCH ×4 (02:25→19:49)
[2018-01-09] MEDS: OXYCODONE HCL IR 5 MG TABLET PO PRN (03:10)
[2018-01-09] MEDS: ALPRAZOLAM 0.25 MG TABLET PO SCH ×3 (06:15→23:10)
[2018-01-09] MEDS: LACTOBACILLUS ACIDOPHILUS 250 MG TAB PO SCH ×2 (06:15→17:51)
[2018-01-09] MEDS: LANSOPRAZOLE 15 MG TAB.RAP.DR PO SCH (06:15)
[2018-01-09] MEDS: ACETYLCYSTEINE 20% SOLN 800 MG/4 ML VIAL.NEB NEB SCH ×2 (08:52→19:48)
[2018-01-09] MEDS: SODIUM BICARBONATE 650 MG TABLET PO SCH ×2 (09:31→23:10)
[2018-01-09] MEDS: ENOXAPARIN SODIUM INJ 30 MG/0.3 ML DISP.SYRIN SUBCUT SCH (09:33)
[2018-01-09] MEDS: MONTELUKAST SODIUM 10 MG TABLET PO SCH (09:33)
[2018-01-09] MEDS: ACETAZOLAMIDE 250 MG TABLET PO SCH ×2 (09:33→17:51)
[2018-01-09] MEDS: MEGESTROL ACETATE SUSP 400 MG/10 ML UDCUP PO SCH (09:33)
[2018-01-09] MEDS: MULTIVIT-STRESS FORMULA/ZINC TABLET PO SCH (09:35)
[2018-01-09] MEDS: CITALOPRAM HYDROBROMIDE 20 MG TABLET PO SCH (09:35)
[2018-01-09] MEDS: NORMAL SALINE 10 ML SDV (SCHEDULED) IV SCH ×2 (09:38→23:10)
[2018-01-09] MEDS: OXYCODONE-ACETAMINOPHEN 5-325 MG TABLET PO PRN (11:35)
--- NOTE | 2018-01-09 11:35 | PDOC PROGRESS REPORT ---
Subjective Progress Note for:: 01/05/18 Subjective:: Patient without complaints Reason For Visit: SEPSIS,LEUKEMOID REACTION,LEUKEMIA/LYMPHOMA, Physical Exam Vital Signs: Temp Pulse Resp BP Pulse Ox 97.7 F 77 20 134/50 H 97 01/05/18 07:23 01/05/18 02:10 01/05/18 06:38 01/05/18 06:38 01/05/18 06:38 Intake & Output 01/04/18 01/05/18 01/06/18 06:59 06:59 06:59 Intake Total 3050 1887 Output Total 3725 3010 Balance -675 1123 Weight 56.7 kg 53 kg General appearance: PRESENT: no acute distress, cooperative, disheveled, well- developed, well-nourished Head exam: PRESENT: normocephalic Eye exam: PRESENT: conjunctiva pale, EOMI. ABSENT: nystagmus, periorbital swelling Mouth exam: PRESENT: dry mucosa, neck supple, tongue midline Neck exam: ABSENT: carotid bruit, JVD, lymphadenopathy, thyromegaly, tracheal deviation, tracheostomy Respiratory exam: PRESENT: decreased breath sounds, prolonged expiratory phas, rales, rhonchi, unlabored. ABSENT: retraction Cardiovascular exam: PRESENT: RRR, +S1, +S2 Pulses: PRESENT: normal radial pulses GI/Abdominal exam: PRESENT: soft. ABSENT: tenderness Extremities exam: PRESENT: pedal edema. ABSENT: calf tenderness, clubbing, joint swelling Musculoskeletal exam: ABSENT: deformity, dislocation Neurological exam: PRESENT: alert, awake Psychiatric exam: PRESENT: appropriate affect Skin exam: PRESENT: dry, warm Results Laboratory Results: 01/05/18 05:30 01/05/18 05:30 01/04/18 01/05/18 01/05/18 10:10 05:30 05:30 WBC 10.3 RBC 2.97 L Hgb 7.4 L Hct 24.3 L MCV 82 MCH 25.1 L MCHC 30.6 L RDW 19.7 H Plt Count 574 H Carbonic Acid Cancelled HCO3/H2CO3 Ratio Cancelled ABG pH Cancelled ABG pCO2 Cancelled ABG pO2 Cancelled ABG HCO3 Cancelled ABG O2 Saturation Cancelled ABG Base Excess Cancelled FiO2 Cancelled Sodium Potassium Chloride Carbon Dioxide Anion Gap BUN Creatinine Est GFR ( Amer) Est GFR (Non-Af Amer) Glucose Calcium Magnesium 01/05/18 01/05/18 05:30 06:25 WBC RBC Hgb Hct MCV MCH MCHC RDW Plt Count Carbonic Acid 1.37 H HCO3/H2CO3 Ratio 16:1 ABG pH 7.31 L ABG pCO2 45.6 H ABG pO2 73.4 L ABG HCO3 22.4 ABG O2 Saturation 93.4 L ABG Base Excess -3.8 FiO2 35% Sodium 150.9 H Potassium 3.4 L Chloride 114 H Carbon Dioxide 19 L Anion Gap 18 BUN 17 Creatinine 0.90 Est GFR ( Amer) > 60 Est GFR (Non-Af Amer) > 60 Glucose 81 Calcium 7.5 L Magnesium 1.8 12/24/17 12/24/17 12/24/17 07:56 07:56 13:50 Creatine Kinase 228 H 151 H CK-MB (CK-2) 7.37 H Troponin I < 0.012 12/24/17 13:50 Creatine Kinase CK-MB (CK-2) 6.20 H Troponin I < 0.012 Impressions: Interventional Vascular Procedure 01/02/18 00:00 IMPRESSION: SUCCESSFUL PLACEMENT OF A 5 FR DUAL LUMEN 34 CM PICC IN THE RIGHT BASILIC VEIN. PICC Line Insertion 01/02/18 00:00 IMPRESSION: SUCCESSFUL PLACEMENT OF A 5 FR DUAL LUMEN 34 CM PICC IN THE RIGHT BASILIC VEIN. Chest Ultrasound 01/03/18 00:00 IMPRESSION: Small amount of fluid in the left posterior costophrenic sulcus. This is similar compared to ultrasound 12/31/2017. Consider follow-up CT chest with IV contrast to assess for loculated left pleural fluid, given left lower lobe pneumonia. Chest X-Ray 01/04/18 06:00 IMPRESSION: Little interval change copyright 2011 [employer]- All Rights Reserved Assessment & Plan - Diagnosis (1) Acute respiratory failure Qualifiers: Respiratory failure complication: hypoxia and hypercapnia Qualified Code(s) : J96.01 - Acute respiratory failure with hypoxia; J96.02 - Acute respiratory failure with hypercapnia; J96.02 - Acute respiratory failure with hypercapnia; J96.02 - Acute respiratory failure with hypercapnia Is this a current diagnosis for this admission?: Yes Plan: Continues to improve (2) Bandemia Is this a current diagnosis for this admission?: No (3) Pneumonia Qualifiers: Pneumonia type: due to unspecified organism Laterality: left Lung location: unspecified part of lung Qualified Code(s): J18.9 - Pneumonia, unspecified organism Is this a current diagnosis for this admission?: Yes Plan: wbc Slightly elevated unchanged from 24 hours ago (4) Septic shock Is this a current diagnosis for this admission?: No (5) GERD (gastroesophageal reflux disease) Qualifiers: Is this a current diagnosis for this admission?: Yes Plan: H2 logan
--- NOTE | 2018-01-09 11:37 | PDOC PROGRESS REPORT ---
Subjective Progress Note for:: 01/06/18 Subjective:: Patient without complaints Reason For Visit: SEPSIS,LEUKEMOID REACTION,LEUKEMIA/LYMPHOMA, Physical Exam Vital Signs: Temp Pulse Resp BP Pulse Ox 98.0 F 77 16 113/45 L 91 L 01/06/18 07:39 01/06/18 08:01 01/06/18 08:01 01/06/18 07:39 01/06/18 08:01 Intake & Output 01/05/18 01/06/18 01/07/18 06:59 06:59 06:59 Intake Total 1887 3858 Output Total 3010 3300 Balance -1123 558 Weight 53 kg 56.5 kg General appearance: PRESENT: no acute distress, cooperative, disheveled, well- developed, well-nourished Head exam: PRESENT: atraumatic, normocephalic Eye exam: PRESENT: conjunctiva pale, EOMI. ABSENT: nystagmus Mouth exam: PRESENT: dry mucosa, neck supple, tongue midline Neck exam: ABSENT: carotid bruit, JVD, lymphadenopathy, thyromegaly, tracheal deviation, tracheostomy - [id number] Respiratory exam: PRESENT: decreased breath sounds, prolonged expiratory phas, rales, rhonchi, unlabored, wheezes. ABSENT: retraction, stridor Cardiovascular exam: PRESENT: RRR, +S1, +S2 Pulses: PRESENT: normal radial pulses GI/Abdominal exam: PRESENT: soft. ABSENT: tenderness Extremities exam: PRESENT: pedal edema. ABSENT: calf tenderness, clubbing, joint swelling Neurological exam: PRESENT: alert, awake Psychiatric exam: PRESENT: appropriate affect Skin exam: PRESENT: dry, warm Results Laboratory Results: 01/05/18 17:19 01/05/18 13:21 01/05/18 01/05/18 01/05/18 08:58 13:21 17:19 WBC 10.5 RBC 3.81 Hgb 10.2 L D Hct 31.6 L MCV 83 MCH 26.7 L MCHC 32.2 RDW 18.2 H Plt Count 565 H Seg Neutrophils % 63.2 Lymphocytes % 17.5 Monocytes % 15.7 H Eosinophils % 3.0 Basophils % 0.6 Absolute Neutrophils 6.6 Absolute Lymphocytes 1.8 Absolute Monocytes 1.6 H Absolute Eosinophils 0.3 Absolute Basophils 0.1 Potassium 4.5 D Blood Type O POSITIVE Antibody Screen NEGATIVE 12/24/17 12/24/17 12/24/17 07:56 07:56 13:50 Creatine Kinase 228 H 151 H CK-MB (CK-2) 7.37 H Troponin I < 0.012 12/24/17 13:50 Creatine Kinase CK-MB (CK-2) 6.20 H Troponin I < 0.012 Impressions: Interventional Vascular Procedure 01/02/18 00:00 IMPRESSION: SUCCESSFUL PLACEMENT OF A 5 FR DUAL LUMEN 34 CM PICC IN THE RIGHT BASILIC VEIN. PICC Line Insertion 01/02/18 00:00 IMPRESSION: SUCCESSFUL PLACEMENT OF A 5 FR DUAL LUMEN 34 CM PICC IN THE RIGHT BASILIC VEIN. Chest Ultrasound 01/03/18 00:00 IMPRESSION: Small amount of fluid in the left posterior costophrenic sulcus. This is similar compared to ultrasound 12/31/2017. Consider follow-up CT chest with IV contrast to assess for loculated left pleural fluid, given left lower lobe pneumonia. Chest X-Ray 01/04/18 06:00 IMPRESSION: Little interval change copyright 2011 [employer]- All Rights Reserved Assessment & Plan - Diagnosis (1) Acute respiratory failure Qualifiers: Respiratory failure complication: hypoxia and hypercapnia Qualified Code(s) : J96.01 - Acute respiratory failure with hypoxia; J96.02 - Acute respiratory failure with hypercapnia; J96.02 - Acute respiratory failure with hypercapnia; J96.02 - Acute respiratory failure with hypercapnia Is this a current diagnosis for this admission?: Yes Plan: Continues to improve (2) Bandemia Is this a current diagnosis for this admission?: No (3) Metabolic acidosis Is this a current diagnosis for this admission?: No (4) Pneumonia Qualifiers: Pneumonia type: due to unspecified organism Laterality: left Lung location: unspecified part of lung Qualified Code(s): J18.9 - Pneumonia, unspecified organism Is this a current diagnosis for this admission?: Yes Plan: wbc Slightly elevated unchanged from 24 hours ago (5) Septic shock Is this a current diagnosis for this admission?: No (6) GERD (gastroesophageal reflux disease) Qualifiers: Is this a current diagnosis for this admission?: Yes Plan: H2 logan - Time Total Critical Time (Minutes): 40
[2018-01-09] MEDS: VANCOMYCIN HCL 1,000 MG in DEXTROSE 5%-WATER 250 ML IV SCH (17:50)
--- NOTE | 2018-01-09 19:32 | PDOC PROGRESS REPORT ---
Subjective Progress Note for:: 01/09/18 Subjective:: Patient denied any chest pain. Tolerating oxygen supplementation via nasal cannula. off AVAP support. No fever or chills. No nausea, vomiting or abdominal pain. Awaiting SNF short term rehabilitation placement. Reason For Visit: SEPSIS,LEUKEMOID REACTION,LEUKEMIA/LYMPHOMA, Physical Exam Vital Signs: Temp Pulse Resp BP Pulse Ox 97.6 F 94 20 111/43 L 96 01/09/18 15:27 01/09/18 15:27 01/09/18 15:27 01/09/18 15:27 01/09/18 15:27 Intake & Output 01/08/18 01/09/18 01/10/18 06:59 06:59 06:59 Intake Total 2675 928 592 Output Total 4450 900 Balance -1775 28 592 Weight 59.2 kg 54 kg Physical Exam: General appearance: PRESENT: remain on supplemental oxygen via nasal cannula, thin Head exam: PRESENT: atraumatic, normocephalic Eye exam: PRESENT: conjunctiva pink, EOMI, PERRLA. ABSENT: pallor, scleral icterus Ear exam: PRESENT: normal external ear exam Mouth exam: PRESENT: moist Respiratory exam: PRESENT: Satisfactory air flow, decreased breath sounds - bilaterally GI/Abdominal exam: PRESENT: normal bowel sounds, soft. ABSENT: distended, guarding, mass, organomegaly, rebound, tenderness Extremities exam: ABSENT: pedal edema Musculoskeletal exam: PRESENT: ambulatory - related to multiple joints involvement with arthritis Neurological exam: PRESENT: alert, awake, oriented to person, oriented to place , oriented to time, oriented to situation, CN II-XII grossly intact. ABSENT: motor sensory deficit Psychiatric exam: PRESENT: appropriate affect, normal mood. ABSENT: homicidal ideation, suicidal ideation Skin exam: PRESENT: dry, intact, warm. ABSENT: cyanosis, rash Results Laboratory Results: 01/05/18 17:19 01/05/18 13:21 12/24/17 12/24/17 12/24/17 07:56 07:56 13:50 Creatine Kinase 228 H 151 H CK-MB (CK-2) 7.37 H Troponin I < 0.012 12/24/17 13:50 Creatine Kinase CK-MB (CK-2) 6.20 H Troponin I < 0.012 Impressions: Interventional Vascular Procedure 01/02/18 00:00 IMPRESSION: SUCCESSFUL PLACEMENT OF A 5 FR DUAL LUMEN 34 CM PICC IN THE RIGHT BASILIC VEIN. PICC Line Insertion 01/02/18 00:00 IMPRESSION: SUCCESSFUL PLACEMENT OF A 5 FR DUAL LUMEN 34 CM PICC IN THE RIGHT BASILIC VEIN. Chest Ultrasound 01/03/18 00:00 IMPRESSION: Small amount of fluid in the left posterior costophrenic sulcus. This is similar compared to ultrasound 12/31/2017. Consider follow-up CT chest with IV contrast to assess for loculated left pleural fluid, given left lower lobe pneumonia. Chest X-Ray 01/04/18 06:00 IMPRESSION: Little interval change copyright 2010 [employer]- All Rights Reserved Assessment & Plan - Diagnosis (1) Acute respiratory failure Qualifiers: Respiratory failure complication: hypoxia and hypercapnia Qualified Code(s) : J96.01 - Acute respiratory failure with hypoxia; J96.02 - Acute respiratory failure with hypercapnia; J96.02 - Acute respiratory failure with hypercapnia; J96.02 - Acute respiratory failure with hypercapnia Is this a current diagnosis for this admission?: Yes (2) Lobar pneumonia, unspecified organism Is this a current diagnosis for this admission?: Yes (3) Chronic respiratory failure with hypoxia and hypercapnia Is this a current diagnosis for this admission?: Yes (4) History of pulmonary embolus (PE) Is this a current diagnosis for this admission?: Yes (5) H/O cardiac pacemaker Is this a current diagnosis for this admission?: Yes - Time Time Spent with patient: 25-34 minutes Medications reviewed and adjusted accordingly: Yes Anticipated discharge: SNF Within: Other - Inpatient Certification Based on my medical assessment, after consideration of the patient's comorbidities, presenting symptoms, or acuity I expect that the services needed warrant INPATIENT care.: Yes I certify that my determination is in accordance with my understanding of Medicare's requirements for reasonable and necessary INPATIENT services [42 CFR 412.3e].: Yes Medical Necessity: Need Close Monitoring Due to Risk of Patient Decompensation, Need For Continuous Telemetry Monitoring, Need for Nebulizer Therapy and Monitoring of Response, Risk of Complication if Not Cared For in Hospital Post Hospital Care: D/C or Transfer Summary - Plan Summary Plan Summary: Continue current medication management. Follow up on SNF placement. D/C program services planner input appreciated.
[2018-01-09] MEDS: MELATONIN 3 MG TABLET PO SCH (23:11)
[2018-01-10] MEDS ORDERED: OXYCODONE HCL IR 5 MG TABLET PO PRN (00:23)
[2018-01-10] MEDS: OXYCODONE-ACETAMINOPHEN 5-325 MG TABLET PO PRN ×2 (00:49→08:05)
[2018-01-10] MEDS: IPRATROPIUM/ALBUTEROL 0.5-2.5 MG/3 ML AMPUL NEB SCH ×3 (02:09→13:44)
[2018-01-10] MEDS: LACTOBACILLUS ACIDOPHILUS 250 MG TAB PO SCH (05:33)
[2018-01-10] MEDS: LANSOPRAZOLE 15 MG TAB.RAP.DR PO SCH (05:33)
[2018-01-10] MEDS: ALPRAZOLAM 0.25 MG TABLET PO SCH ×2 (05:33→13:40)
[2018-01-10] MEDS: ACETYLCYSTEINE 20% SOLN 800 MG/4 ML VIAL.NEB NEB SCH (08:19)
[2018-01-10] MEDS: ENOXAPARIN SODIUM INJ 30 MG/0.3 ML DISP.SYRIN SUBCUT SCH (09:36)
[2018-01-10] MEDS: CITALOPRAM HYDROBROMIDE 20 MG TABLET PO SCH (09:36)
[2018-01-10] MEDS: MONTELUKAST SODIUM 10 MG TABLET PO SCH (09:36)
[2018-01-10] MEDS: MULTIVIT-STRESS FORMULA/ZINC TABLET PO SCH (09:37)
[2018-01-10] MEDS: SODIUM BICARBONATE 650 MG TABLET PO SCH (09:37)
[2018-01-10] MEDS: ACETAZOLAMIDE 250 MG TABLET PO SCH (09:37)
[2018-01-10] MEDS: NORMAL SALINE 10 ML SDV (SCHEDULED) IV SCH (09:38)
[2018-01-10] MEDS: MEGESTROL ACETATE SUSP 400 MG/10 ML UDCUP PO SCH (09:38)
--- NOTE | 2018-01-10 10:46 | PDOC TRANSFER SUMMARY ---
General - Admit/Disc Date/PCP Admission Date/Primary Care Provider: 12/24/17 03:44 SARITA CASTILLO Discharge Date: 01/10/18 - Discharge Diagnosis (1) Acute respiratory failure Is this a current diagnosis for this admission?: Yes (2) Lobar pneumonia, unspecified organism Is this a current diagnosis for this admission?: Yes (3) Chronic respiratory failure with hypoxia and hypercapnia Is this a current diagnosis for this admission?: Yes (4) History of pulmonary embolus (PE) Is this a current diagnosis for this admission?: Yes (5) H/O cardiac pacemaker Is this a current diagnosis for this admission?: Yes (6) Acute kidney injury Is this a current diagnosis for this admission?: Yes Summary: Resolved with IV fluid hydration and medication adjustment. (7) Leukemoid reaction Is this a current diagnosis for this admission?: Yes Summary: Resolved with antibiotic therapy. - Additional Information Resuscitation Status: Do Not Resuscitate Prescriptions: Alprazolam [Xanax 0.5 mg Tablet] 0.5 mg PO Q8 #60 tablet Lactobacillus Acidophilus [Bacid 250 mg Tablet] 250 mg PO Q12A #60 tab Megestrol Acetate [Megace Aislinn 400 mg/10 ml Udcup] 400 mg PO DAILY #300 ml Multivit-Stress Formula/Zinc [Zbec Tablet] 1 tab PO DAILY #30 tablet Oxycodone HCl/Acetaminophen [Percocet 7.5-325 mg Tablet] 1 tab PO Q8HP PRN #60 tablet PRN Reason: For Pain Sodium Bicarbonate [Sodium Bicarbonate 650 mg Tablet] 650 mg PO Q12 #60 tablet Zolpidem Tartrate [Ambien 5 mg Tablet] 5 mg PO HSP PRN #30 tablet PRN Reason: FOR SLEEP Home Medications: Acetazolamide [Diamox 250 mg Tab] 250 mg PO BID 07/08/17 Albuterol Sulfate [Albuterol Sulfate 2.5mg/3 mL] 1 vial NEB DAILYP PRN 07/08/17 Buspirone HCl [Buspar 15 mg Tablet] 7.5 mg PO TID 07/08/17 Citalopram Hydrobromide [Celexa 40 mg Tablet] 40 mg PO DAILY 07/08/17 Montelukast Sodium [Singulair 10 mg Tablet] 10 mg PO DAILY 07/08/17 Ropinirole HCl [Requip] 1 mg PO TID 07/08/17 Fluticasone/Umeclidin/Vilanter [Trelegy 100-62.5-25 Mcg Ellipta 14 Dose/Dpi] 1 each IH DAILY 12/24/17 Promethazine HCl [Phenergan 25 mg Tablet] 25 mg PO Q6HP PRN 12/24/17 Alprazolam [Xanax 0.5 mg Tablet] 0.5 mg PO Q8 #60 tablet 01/10/18 Heparin Sodium,Porcine [Heparin Flush 10 Unit/ml 5 ml Disp.syrg] 30 unit IV .AFTER EACH USE PRN disp.syrin 01/10/18 Heparin Sodium,Porcine [Heparin Flush 10 Unit/ml 5 ml Disp.syrg] 30 unit IV Q12 disp.syrin 01/10/18 Lactobacillus Acidophilus [Bacid 250 mg Tablet] 250 mg PO Q12A #60 tab 01/10/18 Megestrol Acetate [Megace Aislinn 400 mg/10 ml Udcup] 400 mg PO DAILY #300 ml 01/10 Multivit-Stress Formula/Zinc [Zbec Tablet] 1 tab PO DAILY #30 tablet 01/10/18 Oxycodone HCl/Acetaminophen [Percocet 7.5-325 mg Tablet] 1 tab PO Q8HP PRN #60 tablet 01/10/18 Sodium Bicarbonate [Sodium Bicarbonate 650 mg Tablet] 650 mg PO Q12 #60 tablet 01/10/18 Zolpidem Tartrate [Ambien 5 mg Tablet] 5 mg PO HSP PRN #30 tablet 01/10/18 History of Present Illness Admission Date/PCP: 12/24/17 03:44 SARITA CASTILLO History of Present Illness: SUSAN BINGHAM is a 77 year old female, she has a history of very severe chronic obstructive pulmonary disease, patient of Dr. Castillo she came to the emergency room last night for evaluation of respiratory distress, in the emergency room she was evaluated she was found to be tachypneic breathing approximately about 40 times per minute there was severe retraction in the supraclavicular intercostal space. There was very poor air movement in all lung martínez initially oxygen saturation was 80% on 2 L nasal cannula. Before she arrived in the emergency room she was treated by EMS with bronchodilators albuterol as well as Solu-Medrol 125 mg. The core temperature was 101.5 the blood pressure was also low when she presented the emergency room, she was placed on noninvasive positive pressure ventilation BiPAP at the time of presentation. She was very hypotensive on presentation she was started on vasopressor with norepinephrine. She is a DNR she does not want chest compression I received a call from the emergency room physician about this patient, we discussed the case, she was continue on noninvasive positive pressure ventilation BiPAP, she was continue on vasopresor patient's condition is very critical the hemogram revealed WBC of 72,000, the chest x-ray showed airspace opacity in the left perihilar region and left upper lobe patient is presenting with severe sepsis syndrome, she also have altered mental status, there is evidence of multiple organs dysfunction including acute kidney injury, encephalopathy, pneumonia, I discussed all these findings with patient's family. Patient's daughter is the chief of discharge planning department. She is also very acidotic but is mainly respiratory, she has respiratory acidosis most likely secondary to pneumonia Hospital Course Hospital Course: Patient was admitted to ICU on respiratory support via AVAP and management for sepsis syndrome with multiple organs dysfunction including acute on chronic respiratory failure with respiratory acidosis, pneumonia with leukemoid reaction and acute renal injury. She did respond to therapy with resolution of her respiratory acidosis, acute renal failure and sepsis. Her port-a-cath was removed due to concern that it could be the source of her infection. Her blood culture did grew streptococcus pneumoniae, cath culture was no growth after 3 days and sputum culture grew yeast not Mihaela. She was adequately covered with antibiotic and antifungal therapy. She was eventually transferred out of ICU to [facility] level. She participated in physical and occupational therapy sessions satisfactorily with recommendation for short term rehabilitation upon discharge. She has remain clinically stable on supplemental oxygen via nasal cannula at 2L/min which was her baseline prior to admission. She has been offered bed at [facility] [place] and she will be transferred to the facility today for short term rehabilitation. She will follow up in the office as instructed upon discharge from the [facility]. Arrangement will be made for her PICC line management at the [facility]. She will consult with general surgery on outpatient for Port-a-Cath placement when she return to the community. Physical Exam Vital Signs: Temp Pulse Resp BP Pulse Ox 98.5 F 68 20 111/48 L 95 01/10/18 03:18 01/10/18 07:00 01/10/18 03:18 01/10/18 03:18 01/10/18 03:18 Intake & Output 01/09/18 01/10/18 01/11/18 06:59 06:59 06:59 Intake Total 928 692 Output Total 900 Balance 28 692 Weight 54 kg 53.5 kg General appearance: PRESENT: remain on supplemental oxygen via nasal cannula at 2L/min, thin Head exam: PRESENT: atraumatic, normocephalic Eye exam: PRESENT: conjunctiva pink, EOMI, PERRLA. ABSENT: scleral icterus Ear exam: PRESENT: normal external ear exam Mouth exam: PRESENT: moist Respiratory exam: PRESENT: Satisfactory air flow, decreased breath sounds - bilaterally Cardiovascular exam: PRESENT: RRR. ABSENT: diastolic murmur, rubs, systolic murmur Vascular exam: PRESENT: PICC line in right arm. ABSENT: pallor GI/Abdominal exam: PRESENT: normal bowel sounds, soft. ABSENT: distended, guarding, mass, organomegaly, rebound, tenderness Extremities exam: ABSENT: pedal edema Musculoskeletal exam: PRESENT: ambulatory - related to multiple joints involvement with arthritis Neurological exam: PRESENT: alert, awake, oriented to person, oriented to place , oriented to time, oriented to situation, CN II-XII grossly intact. ABSENT: motor sensory deficit Psychiatric exam: PRESENT: appropriate affect, normal mood. ABSENT: homicidal ideation, suicidal ideation Skin exam: PRESENT: dry, intact, warm. ABSENT: cyanosis, rash Results Laboratory Results: 01/05/18 17:19 01/05/18 13:21 12/24/17 12/24/17 12/24/17 07:56 07:56 13:50 Creatine Kinase 228 H 151 H CK-MB (CK-2) 7.37 H Troponin I < 0.012 12/24/17 13:50 Creatine Kinase CK-MB (CK-2) 6.20 H Troponin I < 0.012 Impressions: Interventional Vascular Procedure 01/02/18 00:00 IMPRESSION: SUCCESSFUL PLACEMENT OF A 5 FR DUAL LUMEN 34 CM PICC IN THE RIGHT BASILIC VEIN. PICC Line Insertion 01/02/18 00:00 IMPRESSION: SUCCESSFUL PLACEMENT OF A 5 FR DUAL LUMEN 34 CM PICC IN THE RIGHT BASILIC VEIN. Chest Ultrasound 01/03/18 00:00 IMPRESSION: Small amount of fluid in the left posterior costophrenic sulcus. This is similar compared to ultrasound 12/31/2017. Consider follow-up CT chest with IV contrast to assess for loculated left pleural fluid, given left lower lobe pneumonia. Chest X-Ray 01/04/18 06:00 IMPRESSION: Little interval change copyright 2011 [email or web address] All Rights Reserved Transfer Plan - Disposition Transfer Plan: Transfer to [facility] [place] for short term rehabilitation. Follow up in the office as instructed upon discharge form the SNF. - Time Spent with Patient Time spent with patient: Greater than 30 Minutes - care coordination and post discharge care instructions. Qualifiers - * PATIENT BEING DISCHARGED WITH ANY OF THE FOLLOWING DIAGNOSIS: No Plan Discharge Plan: Transfer to [facility] [place] for short term rehabilitation. Follow up in the office as instructed upon discharge form the SNF. Time Spent: Greater than 30 Minutes - care coordination and post discharge care instructions.
[2018-01-10 13:31] VITALS: BP 108/48
== END 2018-01-10 15:45 | DRG 314 ==
LOC: ER 01:05 → EH 03:44 → ICU 04:53 → 3W 01-05 12:05
PROVIDERS: ADMIT Internal Medicine; ATTEND Internal Medicine Geriatric Medicine
PROC: 5A09457 Assistance with Respiratory Ventilation, 24-96 Consecutive Hours, Continuous Positive Airway Pressure (ICD-10-PCS; principal; 2017-12-24)
PROC: 0JPT0WZ Removal of Totally Implantable Vascular Access Device from Trunk Subcutaneous Tissue and Fascia, Open Approach (ICD-10-PCS; 2017-12-28)
PROC: 02HV33Z Insertion of Infusion Device into Superior Vena Cava, Percutaneous Approach (ICD-10-PCS; 2018-01-02)
PROC: B548ZZA Ultrasonography of Superior Vena Cava, Guidance (ICD-10-PCS; 2018-01-02)
PROC: B5181ZA Fluoroscopy of Superior Vena Cava using Low Osmolar Contrast, Guidance (ICD-10-PCS; 2018-01-02)
PROC: 30233N1 Transfusion of Nonautologous Red Blood Cells into Peripheral Vein, Percutaneous Approach (ICD-10-PCS; 2018-01-05)
DX: T80.218A Other infection due to central venous catheter, initial encounter (principal); A41.9 Sepsis, unspecified organism; R65.21 Severe sepsis with septic shock; J18.1 Lobar pneumonia, unspecified organism; N17.0 Acute kidney failure with tubular necrosis; J96.22 Acute and chronic respiratory failure with hypercapnia; J96.21 Acute and chronic respiratory failure with hypoxia; J44.1 Chronic obstructive pulmonary disease with (acute) exacerbation; J44.0 Chronic obstructive pulmonary disease with (acute) lower respiratory infection; D72.823 Leukemoid reaction; Z66 Do not resuscitate; E78.5 Hyperlipidemia, unspecified; K21.9 Gastro-esophageal reflux disease without esophagitis; I10 Essential (primary) hypertension; M19.90 Unspecified osteoarthritis, unspecified site; F32.9 Major depressive disorder, single episode, unspecified; Z79.899 Other long term (current) drug therapy; Z95.0 Presence of cardiac pacemaker; Z86.711 Personal history of pulmonary embolism; Z87.19 Personal history of other diseases of the digestive system; Z90.710 Acquired absence of both cervix and uterus; Z96.642 Presence of left artificial hip joint; Z93.3 Colostomy status; Z87.891 Personal history of nicotine dependence; Z88.1 Allergy status to other antibiotic agents; Z88.8 Allergy status to other drugs, medicaments and biological substances
CPT/HCPCS: 36415; 36430; 36569; 36591; 51701; 71045; 76604; 76937; 80048; 80053; 80202; 80307; 81001; 82150; 82272; 82550; 82553; 82565; 82570; 82803; 82962; 83036; 83605; 83690; 83735; 83880; 84100; 84132; 84156; 84439; 84443; 84484; 85025; 85027; 85610; 85730; 86850; 86900; 86901; 86920; 87040; 87045; 87070; 87077; 87086; 87186; 87205; 87493; 88184; 88185; 89055; 90686; 93005; 93010; 94640; 94660; 94667; 94668; 96365; 96366; 99291; C1769; G8978-GP; G8979-GP; G8987-GO; G8988-GO; J1450; J1642; J1650; J1940; J1956; J2405; J2543; J3370; J3490; J7030; J7060; J7120; J7620; P9016

== ENCOUNTER 2018-02-13 08:38 | Day surgery (SDC) | payer MEDICARE, OTHER ==
[~2018-02-13 08:38] MED LIST changes: -APIXABAN 2.5 MG TABLET PO SCH; +CEFAZOLIN 1 GM/D5W RTU 1 GM/50 ML RTUPB IV ONE; +CEFAZOLIN 1 GM/D5W RTU 1 GM/50 ML RTUPB IV PRN; +DEXTROSE 5%-1/2 NORMAL SALINE 1,000 ML IV PRN; +DIAZEPAM 5 MG TABLET ONE; +DIAZEPAM 5 MG TABLET PO PRN; +OXYCODONE-ACETAMINOPHEN 5-325 MG TABLET ONE; +OXYCODONE-ACETAMINOPHEN 5-325 MG TABLET PO PRN
[2018-02-13 09:49] LABS: HEMATOCRIT 37.9 % (36.0-47.0); HEMOGLOBIN 12.2 g/dL (12.0-15.5); MEAN CORPUSCULAR HEMOGLOBIN 26.9 pg (27.0-33.4); MEAN CORPUSCULAR HGB CONC 32.1 g/dL (32.0-36.0); MEAN CORPUSCULAR VOLUME 84 fl (80-97); PLATELET COUNT 350 10^3/uL (150-450); RED BLOOD COUNT 4.52 10^6/uL (3.72-5.28); RED CELL DISTRIBUTION WIDTH 19.9 % (11.5-14.0); WHITE BLOOD COUNT 10.5 10^3/uL (4.0-10.5)
[2018-02-13] MEDS ORDERED: LIDOCAINE 0.5% INJ-PF (5 MG/ML) 50 ML SDV ONE (09:49)
[2018-02-13] MEDS ORDERED: MIDAZOLAM 2 MG/2 ML INJ ONE (09:54)
[2018-02-13] MEDS ORDERED: BACITRACIN INJ 50,000 UNIT VIAL ONE (09:55)
[2018-02-13] MEDS ORDERED: FENTANYL CITRATE INJ/PF 100 MCG/2 ML AMPUL ONE (09:55)
[2018-02-13 10:10] LABS: ANION GAP 11 (5-19); BLOOD UREA NITROGEN 17 mg/dL (7-20); CALCIUM 9.3 mg/dL (8.4-10.2); CARBON DIOXIDE 21 mmol/L (22-30); CHLORIDE 103 mmol/L (98-107); GLUCOSE 86 mg/dL (75-110); POTASSIUM 4.5 mmol/L (3.6-5.0); SODIUM 134.5 mmol/L (137-145)
--- NOTE | 2018-02-13 10:28 | RADIOLOGY REPORT (SQ) ---
EXAM DESCRIPTION: CHEST SINGLE VIEW COMPLETED DATE/TIME: 02/13/2018 10:08 am REASON FOR STUDY: PREOP COMPARISON: CT chest 07/17/2017 Chest films 01/04/2018, 01/03/2018, 01/02/2018, 12/30/2017 EXAM PARAMETERS: NUMBER OF VIEWS: One view. TECHNIQUE: Single frontal radiographic view of the chest acquired. RADIATION DOSE: NA LIMITATIONS: None. FINDINGS: LUNGS AND PLEURA: Obstructive lung disease is present. There is improvement in appearance of the chest compared to December 2017, with resolved left lower l obe and lingular pneumonia. On today's study, there is chronic increased interstitial markings in the periphery of both lung base s and hyperinflation of the apices. No acute infiltrates. No pleural effusion or pneumothorax. MEDIASTINUM AND HILAR STRUCTURES: No masses. Contour normal. HEART AND VASCULAR STRUCTURES: Heart normal in size. Normal vasculature. BONES: No acute findings. HARDWARE: Unchanged left-sided dual lead pacemaker OTHER: No other significant finding. IMPRESSION: Obstructive lung disease. No acute findings on today's study TECHNICAL DOCUMENTATION: JOB ID: [id number]- All Rights Reserved Reading location - IP/workstation name: [email or web address]
--- NOTE | 2018-02-13 11:43 | Discharge Summary ---
Discharge Summary (SDC) - Discharge Final Diagnosis: #1 recurrent pneumonias. 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 4. Pacemaker in place. 5. COPD. 6. Hypertension. Date of Surgery: 02/13/18 Discharge Date: 02/13/18 Condition: Poor Treatment or Instructions: Discharge home [after recovery per ASU criteria]. Diet ,as tolerated, when fully awake advance as tolerated. Activities within moderation encouraged. Follow up in my office by appointment in about [1 week]. Call for appointment. Leave wounds [covered], [keep clean and dry, until office visit in 1 week]. Hold of on school/work [until evaluation in office]. Meds per med rec. Percocet. May shower [in 48 hrs], [try to keep operated area as dry as possible]. Referrals: SARITA CASTILLO MD [Primary Care Provider] - Discharge Diet: As Tolerated Respiratory Treatments at Home: Deep Breathing/Coughing Discharge Activity: Activity As Tolerated Report the Following to Your Physician Immediately: Shortness of Breath, Unusual Bleeding
--- NOTE | 2018-02-13 11:50 | RADIOLOGY REPORT (SQ) ---
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 LIMITATIONS: None. PROCEDURE: Intra procedural imaging and fluoro during placement of a right sided permanent central l ine with the tip in the superior vena cava. Please see the operative report for further details. IMPRESSION: Intra procedural imaging and fluoro COMMENT: Quality ID 145: Final reports for procedures using fluoroscopy that document radiation exp osure indices, or exposure time and number of fluorographic images (if radiation exposure indices are not available) TECHNICAL DOCUMENTATION: JOB ID: [id number] [employer]- All Rights Reserved rev Reading location - IP/workstation name: [facility]
--- NOTE | 2018-02-13 11:50 | RADIOLOGY REPORT (SQ) ---
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 LIMITATIONS: None. PROCEDURE: Intra procedural imaging and fluoro during placement of a right sided permanent central l ine with the tip in the superior vena cava. Please see the operative report for further details. IMPRESSION: Intra procedural imaging and fluoro COMMENT: Quality ID 145: Final reports for procedures using fluoroscopy that document radiation exp osure indices, or exposure time and number of fluorographic images (if radiation exposure indices are not available) TECHNICAL DOCUMENTATION: JOB ID: [id number] [employer]- All Rights Reserved rev Reading location - IP/workstation name: [facility]RR
--- NOTE | 2018-02-13 11:57 | Operative Report ---
Operative Report DATE OF SURGERY: 02/13/18 PREOPERATIVE DIAGNOSIS: #1 recurrent pneumonias. 2. Extinction of peripheral access. 3. Lpsxm-Uyvzwxinh-Mkzyp syndrome. 4. Pacemaker in place. 5. COPD. 6. Hypertension. POSTOPERATIVE DIAGNOSIS: #1 recurrent pneumonias. 2. Extinction of peripheral access. 3. Mfuha-Tjbbqxtpp-Fkhsx syndrome. 4. Pacemaker in place. 5. COPD. 6. Hypertension. OPERATION: 1. Ultrasound evaluation of the right internal jugular vein. 2. Insertion of Port-A-Cath via real-time access in the right internal jugular vein. 3. Angiogram and interpretation. SURGEON: AMBER VEGA X RAY SERVICE TECHNICIAN: None. ANESTHESIA: Moderate Sedation TISSUE REMOVED OR ALTERED: Not applicable. COMPLICATIONS: None. ESTIMATED BLOOD LOSS: 5 mL. INTRAOPERATIVE FINDINGS: Of a satisfactory right internal jugular vein about 1.2 cm in diameter. Satisfactory access and placement with the tip just down in the right atrium. Easy egress of blood and ingress of heparinized solution. Smooth flow of contrast through the catheter, right atrium and ventricle and pulmonary outflow tract. PROCEDURE: After obtaining informed consent, the patient was taken to the Newspaper Journalist and positioned supine. The [right] neck and chest were prepared with chlorhexidine and draped out with sterile linen. After the " universal timeout", in which it was verified that the patient continued to receive antibiotic, the procedure commenced. A steriley sheathed ultrasound probe was used to evaluate the [right] internal jugular vein. Local anesthesia was infiltrated adjacent to the probe. Access into the [right] internal jugular vein was obtained using a micropuncture needle, followed by micropuncture wire and then a micropuncture catheter. This was followed by introduction of a 0.035 guidewire the tip of which was placed down into the inferior vena cava . The port sites was marked , locally anesthetized and incision made. Dissection now proceeded to the deep subcutaneous subcutaneous tissues so that a pocket for the port was made. Meticulous hemostasis was secured and the catheter was tunneled between the 2 incisions. Proximally, the catheter was now positioned using a peel-away sheath. Distally the catheter was tailored to an appropriate length and then mated to the port using the contained fixating device. The port was now placed in the pocket and the catheter optimally positioned. The port was accessed with a Dickey needle and an angiogram done under digital subtraction. The findings as dictated. With adequate and satisfactory positioning, both lumens of the chamber were irrigated with heparinized solution. The wounds were now closed using interrupted 3-0 PDS to the subcutaneous tissues and a continuous subcuticular suture of 4-0 Monocryl to the skin. These are reinforced with Steri-Strips over benzoin and then dressings applied. Time: 0.2 Minute. Dose: 8.83 m Gy Contrast: 5 mls. Isovue 300. Copies of the dictated operative report for Dr. Amber Adame MD.
[2018-02-13 13:14] VITALS: BP 129/74
== END 2018-02-13 13:10 | disposition home or self-care (01) ==
LOC: CCL 08:38
PROVIDERS: ATTEND Surgery
DX: J18.9 Pneumonia, unspecified organism (principal); Z79.2 Long term (current) use of antibiotics; I45.6 Pre-excitation syndrome; Z95.0 Presence of cardiac pacemaker; I10 Essential (primary) hypertension; J44.9 Chronic obstructive pulmonary disease, unspecified; M19.90 Unspecified osteoarthritis, unspecified site; I49.9 Cardiac arrhythmia, unspecified; Z99.81 Dependence on supplemental oxygen; Z87.891 Personal history of nicotine dependence; Z79.899 Other long term (current) drug therapy; Z79.51 Long term (current) use of inhaled steroids; Z79.891 Long term (current) use of opiate analgesic
CPT/HCPCS: 36415; 85027; 80048; 36561; 76937; 77001; 71045; C1752; C1788; J2250; J3490 ×2; J0690; A9270 ×2; J3010; J1644; C1713

== ENCOUNTER 2018-02-14 15:28 | Emergency (ER) | payer MEDICARE, OTHER ==
[2018-02-14] MEDS ORDERED: NORMAL SALINE 1000 ML 500 ML IV ONE (15:56)
--- NOTE | 2018-02-14 15:58 | ER Document Report ---
ED Medical Screen (RME) - General Chief Complaint: Fall Stated Complaint: RIGHT ARM PAIN Time Seen by Provider: 02/14/18 15:47 Notes: RAPID MEDICAL EVALUATION DISCLOSURE I have seen this patient as part of a Rapid Medical Evaluation and, if ruthie licable, placed any initially appropriate orders. The patient will be seen and fully evaluated, including a full history and physical exam, by a provider (in Main ED or Fast Track) when a room becomes available. 77-year-old female here with multiple complaints. She is mainly here due to a fall this morning. She states that she was unsteady on her feet and this led to the fall. The daughter states that she has recently had a plethora of symptoms including palpitations, shortness of breath, cough productive of yellow sputum. She was recently admitted to the hospital, ICU setting, for pneumonia. The daughter does not believe it completely cleared. Yesterday, she did have a port placed yesterday since the intensivists thought her previous port may have been infected and was therefore removed. EXAM Tachycardic Mild end expiratory wheezes with mild decreased aeration Left greater than right bibasilar rhonchi Moderate left shoulder TTP with anterior fullness Moderate pain with RUE external/internal rotation Mild midshaft humerus bony TTP TRAVEL OUTSIDE OF THE [place].S. IN LAST 30 DAYS: No - Related Data Allergies/Adverse Reactions: codeine [Codeine] Allergy (Unknown, Verified 02/14/18 15:31) erythromycin base [Erythromycin Base] Allergy (Unknown, Verified 02/14/18 15:31) Past Medical History - Social History Chew tobacco use (# tins/day): No Frequency of alcohol use: None Drug Abuse: None - Past Medical History Cardiac Medical History: Reports: Hx Hypercholesterolemia, Hx Hypertension, Hx Pulmonary Embolism Denies: Hx Coronary Artery Disease, Hx Heart Attack Pulmonary Medical History: Reports: Hx Asthma, Hx Bronchitis, Hx COPD, Hx Pneumonia, Hx Respiratory Failure, Hx Sleep Apnea Neurological Medical History: Denies: Hx Cerebrovascular Accident, Hx Seizures Endocrine Medical History: Denies: Hx Graves' Disease Renal/ Medical History: Reports: Hx Kidney Stones - 20 year ago. Denies: Hx Ovarian Cysts, Hx Peritoneal Dialysis, Hx Pelvic Inflammatory Disease Malignancy Medical History: GI Medical History: Reports: Hx Diverticulitis, Hx Gastroesophageal Reflux Disease, Hx Ulcer. Denies: Hx Irritable Bowel, Hx Liver Failure, Hx Pancreatitis Musculoskeltal Medical History: Denies Hx Arthritis, Denies Hx Multiple Sclerosis, Denies Hx Muscular Dystrophy Skin Medical History: Reports Hx MRSA Psychiatric Medical History: Reports: Hx Depression Denies: Hx Schizophrenia Traumatic Medical History: Denies: Hx Fractures, Hx Gunshot Wound Infectious Medical History: Denies: Hx HIV Past Surgical History: Reports: Hx Bowel Surgery - Old colostomy from a tear intestines resectioned, Hx Cardiac Surgery - pacemaker, Hx Colostomy - with reversal, 6 years ago, Hx Hysterectomy, Hx Orthopedic Surgery - left hip replacement 11/04/2014, Hx Pacemaker - Immunizations Immunizations up to date: Yes Hx Diphtheria, Pertussis, Tetanus Vaccination: No History of Influenza Vaccine for 11/2016 - 04/2017 Season: Unknown Physical Exam - Vital signs Vitals: Temp Pulse Resp BP Pulse Ox 97.5 F 118 H 20 94/55 L 94 02/14/18 15:34 02/14/18 15:34 02/14/18 15:34 02/14/18 15:34 02/14/18 15:34 Course - Vital Signs Vital signs: Temp Pulse Resp BP Pulse Ox 97.5 F 118 H 20 94/55 L 94 02/14/18 15:34 02/14/18 15:34 02/14/18 15:34 02/14/18 15:34 02/14/18 15:34 Doctor's Discharge - Discharge Referrals: SARITA CASTILLO MD [Primary Care Provider] - Follow up as needed
--- NOTE | 2018-02-14 16:07 | ER Document Report ---
ED Fall - General Chief Complaint: Fall Stated Complaint: RIGHT ARM PAIN Time Seen by Provider: 02/14/18 15:47 Mode of Arrival: Ambulatory Information source: Patient, Relative TRAVEL OUTSIDE OF THE [place] IN LAST 30 DAYS: No - HPI Occurred: Other - This is a 77-year-old female with a history of COPD as well as pneumonia recurrently with a subcutaneous port placed yesterday for difficulty in obtaining IV access that presents for an evaluation today after falling onto her right shoulder. She thereafter had difficulty getting up and was assisted by family to the emergency department. She did hit her head did not lose consciousness denies any headache neck pain or pain elsewhere at this time. - Related data Allergies/Adverse Reactions: codeine [Codeine] Allergy (Unknown, Verified 02/14/18 15:31) erythromycin base [Erythromycin Base] Allergy (Unknown, Verified 02/14/18 15:31) Past Medical History - General Information source: Patient, Relative - Social History Smoking Status: Unknown if Ever Smoked Chew tobacco use (# tins/day): No Frequency of alcohol use: None Drug Abuse: None Family History: CAD - This is in not immediate family members., DM, Hyperlipidemia, Hypertension Patient has suicidal ideation: No Patient has homicidal ideation: No - Past Medical History Cardiac Medical History: Reports: Hx Hypercholesterolemia, Hx Hypertension, Hx Pulmonary Embolism Denies: Hx Coronary Artery Disease, Hx Heart Attack Pulmonary Medical History: Reports: Hx Asthma, Hx Bronchitis, Hx COPD, Hx Pneumonia, Hx Respiratory Failure, Hx Sleep Apnea Neurological Medical History: Denies: Hx Cerebrovascular Accident, Hx Seizures Endocrine Medical History: Denies: Hx Graves' Disease Renal/ Medical History: Reports: Hx Kidney Stones - 20 year ago. Denies: Hx Ovarian Cysts, Hx Peritoneal Dialysis, Hx Pelvic Inflammatory Disease Malignancy Medical History: GI Medical History: Reports: Hx Diverticulitis, Hx Gastroesophageal Reflux Disease, Hx Ulcer. Denies: Hx Irritable Bowel, Hx Liver Failure, Hx Pancreatitis Musculoskeletal Medical History: Denies Hx Arthritis, Denies Hx Multiple Sclerosis, Denies Hx Muscular Dystrophy Skin Medical History: Reports Hx MRSA Psychiatric Medical History: Reports: Hx Depression Denies: Hx Schizophrenia Traumatic Medical History: Denies: Hx Fractures, Hx Gunshot Wound Infectious Medical History: Denies: Hx HIV Past Surgical History: Reports: Hx Bowel Surgery - Old colostomy from a tear intestines resectioned, Hx Cardiac Surgery - pacemaker, Hx Colostomy - with reversal, 6 years ago, Hx Hysterectomy, Hx Orthopedic Surgery - left hip replacement 11/04/2014, Hx Pacemaker - Immunizations Immunizations up to date: Yes Hx Diphtheria, Pertussis, Tetanus Vaccination: No Hx Pneumococcal Vaccination: 06/04/11 Review of Systems - Review of Systems -: Yes All other systems reviewed and negative Physical Exam - Vital signs Vitals: Temp Pulse Resp BP Pulse Ox 97.5 F 118 H 20 94/55 L 94 02/14/18 15:34 02/14/18 15:34 02/14/18 15:34 02/14/18 15:34 02/14/18 15:34 - General General appearance: Anxious In distress: Mild - HEENT Head: Normocephalic Eyes: Normal Conjunctiva: Normal Cornea: Normal Extraocular movements intact: Yes Eyelashes: Normal Pupils: PERRL - Respiratory Respiratory status: No respiratory distress Chest status: Nontender Breath sounds: Normal Chest palpation: Normal - Cardiovascular Rhythm: Regular Heart sounds: Normal auscultation Murmur: No - Abdominal Inspection: Normal Distension: No distension Bowel sounds: Normal Tenderness: Nontender - Back Back: Normal, Nontender - Extremities General upper extremity: Other - Tenderness to palpation along the right deltoid, Chest wall stable Normal range of motion of the left shoulder, normal range of motion left elbow, normal range of motion of left wrist Tenderness to palpation of the right deltoid, tenderness to palpation of the right elbow, no tenderness to palpation of the right wrist. General lower extremity: Normal inspection, Nontender, Normal ROM, Normal strength Course - Re-evaluation Re-evalutation: This 77-year-old female presented for evaluation after falling on her left shoulder. Through triage she had a head scan ordered as well as a CT of the cervical spine. She has intense pain in the right shoulder but nowhere else. X-rays of the shoulder were obtained as well as the chest. And investigation of this patient is noteworthy that she is remarkably frail chronically ill oxygen dependent COPD patient. She is got marked tenderness in the right shoulder. She is got diminished range of motion of the right shoulder. X-ray demonstrates an impacted humeral head fracture. 02/14/18 18:51 [address] doctor ibarra who states that he will follow-up with patient in clinic. Patient to wear a sling no other intervention or splint needed at this time. Patient with an unremarkable evaluation otherwise, does demonstrate leukocytosis from her treatment for her ongoing pulmonary issues with steroids as well as inhalers. She is got no obvious fracture in the cervical spine pelvis chest or skull. Spoke to the patient's daughter who incidentally works at the hospital, she will assist with discharge planning as this patient generally requires a walker to ambulate but now with broken humerus will be unable to utilize. She will be using a cane to ambulate and says that generally she is able to ambulate well with a cane and without any other assistance though her daughter states that this may not be entirely true. - Vital Signs Vital signs: Temp Pulse Resp BP Pulse Ox 97.5 F 118 H 20 114/61 97 02/14/18 15:34 02/14/18 15:34 02/14/18 20:50 02/14/18 20:50 02/14/18 20:49 - Laboratory Result Diagrams: 02/14/18 18:14 02/14/18 18:14 Laboratory results interpreted by me: 02/14/18 02/14/18 02/14/18 18:14 18:14 18:14 WBC 18.0 H MCH 26.8 L MCHC 31.5 L RDW 19.9 H Seg Neutrophils % 86.0 H Lymphocytes % 7.8 L Absolute Neutrophils 15.5 H Sodium 133.7 L Creatinine 1.29 H Est GFR ( Amer) 49 L Est GFR (Non-Af Amer) 40 L Glucose 111 H NT-Pro-B Natriuret Pep 542 H Discharge - Discharge Clinical Impression: Elbow pain, right, Shortness of breath Fall Qualifiers: Encounter type: initial encounter Qualified Code(s): W19.XXXA - Unspecified fall, initial encounter Humerus fracture Qualifiers: Encounter type: initial encounter Humerus Location: proximal Fracture type: closed Fracture morphology: unspecified fracture morphology Laterality: right Qualified Code(s): S42.201A - Unspecified fracture of upper end of right humerus, initial encounter for closed fracture Condition: Good Disposition: HOME, SELF-CARE Instructions: Oral Narcotic Medication ([facility]), Sling as Treatment ([facility]) Additional Instructions: You were seen today in the emergency department because you fell and broke your arm. You had an evaluation including a CAT scan of your head as well as your neck and x-rays of your chest, shoulder, and your right arm. Your arm is broken on the right side, you should keep it in the sling anytime you are awake through the day. You need to schedule an appointment this week with an orthopedist. You have been given a referral to 1, use the contact information to schedule appointment tomorrow. You been given a medication to help with the pain and swelling. You can also use normal pain medications and medicines for the swelling. Prescriptions: Hydrocodone/Acetaminophen [[place] 5-325 mg Tablet] 1 tab PO Q8 PRN 4 Days #15 tablet PRN Reason: Referrals: SARITA CASTILLO MD [Primary Care Provider] - Follow up as needed GÓMEZ ALMODOVAR MD [ACTIVE STAFF] - Follow up in 3-5 days
--- NOTE | 2018-02-14 16:54 | RADIOLOGY REPORT (SQ) ---
EXAM DESCRIPTION: CT HEAD WITHOUT COMPLETED DATE/TIME: 02/14/2018 4:40 pm REASON FOR STUDY: s/p fall COMPARISON: 08/19/2016 TECHNIQUE: Axial images acquired through the brain without intravenous contrast. Images reviewed wi th bone, brain and subdural windows. Additional sagittal and coronal reconstructions were generated. Images stored on PACS. All CT scanners at this facility use dose modulation, iterative reconstruction, and/or weight based d osing when appropriate to reduce radiation dose to as low as reasonably achievable (ALARA). [facility]: Dose Right [facility]: CareDose [facility]: Dose Right [facility]: Teradose 4D [facility]: Smart [employer] RADIATION DOSE: CT Rad equipment meets quality standard of care and radiation dose reduction techniq ues were employed. CTDIvol: 53.2 mGy. DLP: 964 mGy-cm. mGy. LIMITATIONS: None. FINDINGS: VENTRICLES: Normal size and contour. CEREBRUM: No masses. No hemorrhage. No midline shift. No evidence for acute infarction. Normal gra y/white matter differentiation. No areas of low density in the white matter. CEREBELLUM: No masses. No hemorrhage. No alteration of density. No evidence for acute infarction. EXTRAAXIAL SPACES: No fluid collections. No masses. ORBITS AND GLOBE: No intra- or extraconal masses. Normal contour of globe without masses. CALVARIUM: No fracture. PARANASAL SINUSES: No fluid or mucosal thickening. SOFT TISSUES: No mass or hematoma. OTHER: No other significant finding. IMPRESSION: NORMAL BRAIN CT WITHOUT CONTRAST. EVIDENCE OF ACUTE STROKE: NO. COMMENT: Quality ID # [id number]: Final reports with documentation of one or more dose reduction techniques (e.g., Automated exposure control, adjustment of the mA and/or kV according to patient size, use of iterative reconstruction technique) TECHNICAL DOCUMENTATION: JOB ID: [id number] [employer]- All Rights Reserved Reading location - IP/workstation name: [email or web address]
--- NOTE | 2018-02-14 16:55 | RADIOLOGY REPORT (SQ) ---
EXAM DESCRIPTION: CT CERVICAL SPINE WITHOUT COMPLETED DATE/TIME: 02/14/2018 4:45 pm REASON FOR STUDY: s/p fall COMPARISON: None. TECHNIQUE: Axial images acquired through the cervical spine without intravenous contrast. Images re viewed with lung, soft tissue and bone windows. Reconstructed coronal and sagittal MPR images review ed. Images stored on PACS. All CT scanners at this facility use dose modulation, iterative reconstruction, and/or weight based d osing when appropriate to reduce radiation dose to as low as reasonably achievable (ALARA). [facility]: Dose Right [facility]: CareDose [facility]: Dose Right [facility]: Teradose 4D [facility]: Smart [employer] RADIATION DOSE: CT Rad equipment meets quality standard of care and radiation dose reduction techniq ues were employed. CTDIvol: 15.2 mGy. DLP: 304 mGy-cm. mGy. LIMITATIONS: None. FINDINGS: ALIGNMENT: There is slight retrolisthesis of C4 on C5. MINERALIZATION: Normal. VERTEBRAL BODIES: No fractures or dislocation. DISCS: Multilevel disc space narrowing with osteophytes. Changes are most prominent at C4-5 and C5-C 6. FACETS, LATERAL MASSES, POSTERIOR ELEMENTS: Facet arthropathy. No fractures. No dislocation. No ac nichole findings. HARDWARE: None in the spine. VISUALIZED RIBS: No fractures. LUNG APICES AND SOFT TISSUES: There are emphysematous changes in the lung apices. OTHER: No other significant finding. IMPRESSION: CHRONIC DEGENERATIVE CHANGES. NO ACUTE FINDINGS. TECHNICAL DOCUMENTATION: JOB ID: [id number] Quality ID # [id number]: Final reports with documentation of one or more dose reduction techniques (e.g., Au tomated exposure control, adjustment of the mA and/or kV according to patient size, use of iterative reconstruction technique) 2010 [employer]- All Rights Reserved Reading location - IP/workstation name: [email or web address]
--- NOTE | 2018-02-14 16:58 | RADIOLOGY REPORT (SQ) ---
EXAM DESCRIPTION: HUMERUS RIGHT COMPLETED DATE/TIME: 02/14/2018 4:47 pm REASON FOR STUDY: s/p fall; fx dislocation? COMPARISON: None. NUMBER OF VIEWS: Two views. TECHNIQUE: Two radiographic images were acquired of the right humerus to include elbow and shoulder in at least one projection. LIMITATIONS: None. FINDINGS: MINERALIZATION: Osteopenia. BONES: There is a slightly impacted fracture of the proximal right humerus. SOFT TISSUES: No obvious swelling or foreign body. OTHER: No other significant finding. IMPRESSION: Proximal right humerus fracture. Slight impaction. TECHNICAL DOCUMENTATION: JOB ID: [id number] [employer]- All Rights Reserved Reading location - IP/workstation name: [email or web address]
--- NOTE | 2018-02-14 16:59 | RADIOLOGY REPORT (SQ) ---
EXAM DESCRIPTION: SHOULDER RIGHT 2 OR MORE VIEWS COMPLETED DATE/TIME: 02/14/2018 4:47 pm REASON FOR STUDY: s/p fall; fx dislocation? COMPARISON: None. NUMBER OF VIEWS: Three views. TECHNIQUE: Internal rotation, external rotation, and Y view images acquired of the right shoulder. LIMITATIONS: None. FINDINGS: MINERALIZATION: Osteopenia. BONES: There is a slightly impacted proximal right humerus fracture. No dislocation. JOINTS: No dislocation. VISUALIZED LUNGS AND RIBS: No pneumothorax. No rib fracture. SOFT TISSUES: No radiopaque foreign body. OTHER: No other significant finding. IMPRESSION: Slightly impacted proximal right humerus fracture. TECHNICAL DOCUMENTATION: JOB ID: [id number] [employer]- All Rights Reserved Reading location - IP/workstation name: [email or web address]
--- NOTE | 2018-02-14 17:00 | RADIOLOGY REPORT (SQ) ---
EXAM DESCRIPTION: CHEST 2 VIEWS COMPLETED DATE/TIME: 02/14/2018 4:47 pm REASON FOR STUDY: SOB cough prod yellow sputum; pneumonia? COMPARISON: 02/13/2018 EXAM PARAMETERS: NUMBER OF VIEWS: two views TECHNIQUE: Digital Frontal and Lateral radiographic views of the chest acquired. RADIATION DOSE: NA LIMITATIONS: none FINDINGS: LUNGS AND PLEURA: Lung martínez are hyperexpanded. There is now patchy bilateral airspace d isease present. This could represent pneumonia or asymmetric edema. There are small pleural effusio ns. MEDIASTINUM AND HILAR STRUCTURES: No masses or contour abnormalities. HEART AND VASCULAR STRUCTURES: Heart normal size. No evidence for failure. BONES: No acute findings. HARDWARE: Battery pack and leads remain in place. Ncxmlx-P-Ones has been added. OTHER: No other significant finding. IMPRESSION: COPD. There is now patchy bilateral airspace disease. There are small effusions. Diff erential includes pneumonia versus pulmonary edema. TECHNICAL DOCUMENTATION: JOB ID: [id number] [employer]- All Rights Reserved Reading location - IP/workstation name: [email or web address]
[2018-02-14] MEDS ORDERED: OXYCODONE-ACETAMINOPHEN 5-325 MG TABLET PO ONE (18:04)
--- NOTE | 2018-02-14 18:12 | RADIOLOGY REPORT (SQ) ---
EXAM DESCRIPTION: ELBOW RIGHT AP/LAT COMPLETED DATE/TIME: 02/14/2018 6:01 pm REASON FOR STUDY: possible elbow fx COMPARISON: None. NUMBER OF VIEWS: Two views. TECHNIQUE: AP and lateral radiographic images acquired of the right elbow. LIMITATIONS: None. FINDINGS: MINERALIZATION: Osteopenia. BONES: No acute fracture or dislocation. No worrisome bone lesions. JOINT: No effusion. SOFT TISSUES: No soft tissue swelling. No foreign body. OTHER: No other significant finding. IMPRESSION: Osteopenia. No acute fracture or dislocation. TECHNICAL DOCUMENTATION: JOB ID: [id number] [employer]- All Rights Reserved Reading location - IP/workstation name: [email or web address]
[2018-02-14 18:32] LABS: ABSOLUTE LYMPHOCYTES (AUTO) 1.4 10^3/uL (0.5-4.7); ABSOLUTE NEUT (AUTO) 15.5 10^3/uL (1.7-8.2); BASOPHILS % (AUTO) 0.2 % (0-2); EOSINOPHILS % (AUTO) 0.2 % (0-6); HEMATOCRIT 38.4 % (36.0-47.0); HEMOGLOBIN 12.1 g/dL (12.0-15.5); LYMPHOCYTES % (AUTO) 7.8 % (13-45); MEAN CORPUSCULAR HEMOGLOBIN 26.8 pg (27.0-33.4); MEAN CORPUSCULAR HGB CONC 31.5 g/dL (32.0-36.0); MEAN CORPUSCULAR VOLUME 85 fl (80-97); MONOCYTES % (AUTO) 5.8 % (3-13); PLATELET COUNT 303 10^3/uL (150-450); RED BLOOD COUNT 4.52 10^6/uL (3.72-5.28); RED CELL DISTRIBUTION WIDTH 19.9 % (11.5-14.0); TOTAL CELLS COUNTED % (AUTO) 100 %
[2018-02-14 18:46] LABS: ALANINE AMINOTRANSFERASE 21 U/L (9-52); ALBUMIN 3.7 g/dL (3.5-5.0); ALKALINE PHOSPHATASE 91 U/L (38-126); ANION GAP 8 (5-19); ASPARTATE AMINO TRANSFERASE 20 U/L (14-36); BILIRUBIN,DIRECT 0.1 mg/dL (0.0-0.4); BILIRUBIN,TOTAL 0.2 mg/dL (0.2-1.3); BLOOD UREA NITROGEN 16 mg/dL (7-20); CALCIUM 8.9 mg/dL (8.4-10.2); CARBON DIOXIDE 22 mmol/L (22-30); CHLORIDE 104 mmol/L (98-107); GLUCOSE 111 mg/dL (75-110); POTASSIUM 4.7 mmol/L (3.6-5.0); SODIUM 133.7 mmol/L (137-145); TOTAL PROTEIN 6.7 g/dL (6.3-8.2)
--- NOTE | 2018-02-14 18:49 | EKG REPORT ---
SEVERITY:- ABNORMAL ECG - SINUS RHYTHM LEFT ANTERIOR FASCICULAR BLOCK CONSIDER LEFT VENTRICULAR HYPERTROPHY BORDERLINE PROLONGED QT INTERVAL : Confirmed by: Ramakrishna Gerber MD 14-Feb-2018 18:49:03
[2018-02-14 18:57] LABS: NT PRO BNP 542 pg/mL (<450)
[2018-02-14 19:08] LABS: TROPONIN I < 0.012 ng/mL
--- NOTE | 2018-02-14 19:12 | ER Document Report ---
ED General - General Chief Complaint: Fall Stated Complaint: RIGHT ARM PAIN Time Seen by Provider: 02/14/18 15:47 TRAVEL OUTSIDE OF THE [place]. IN LAST 30 DAYS: No - HPI Onset: Other - Pain and swelling of the right shoulder - Related Data Allergies/Adverse Reactions: codeine [Codeine] Allergy (Unknown, Verified 02/14/18 15:31) erythromycin base [Erythromycin Base] Allergy (Unknown, Verified 02/14/18 15:31) Past Medical History - Social History Smoking Status: Unknown if Ever Smoked Chew tobacco use (# tins/day): No Frequency of alcohol use: None Drug Abuse: None Family History: CAD - This is in not immediate family members., DM, Hyperlipidemia, Hypertension Patient has suicidal ideation: No Patient has homicidal ideation: No - Past Medical History Cardiac Medical History: Reports: Hx Hypercholesterolemia, Hx Hypertension, Hx Pulmonary Embolism Denies: Hx Coronary Artery Disease, Hx Heart Attack Pulmonary Medical History: Reports: Hx Asthma, Hx Bronchitis, Hx COPD, Hx Pneumonia, Hx Respiratory Failure, Hx Sleep Apnea Neurological Medical History: Denies: Hx Cerebrovascular Accident, Hx Seizures Endocrine Medical History: Denies: Hx Graves' Disease Renal/ Medical History: Reports: Hx Kidney Stones - 20 year ago. Denies: Hx Ovarian Cysts, Hx Peritoneal Dialysis, Hx Pelvic Inflammatory Disease Malignancy Medical History: GI Medical History: Reports: Hx Diverticulitis, Hx Gastroesophageal Reflux Disease, Hx Ulcer. Denies: Hx Irritable Bowel, Hx Liver Failure, Hx Pancreatitis Musculoskeletal Medical History: Denies Hx Arthritis, Denies Hx Multiple Sclerosis, Denies Hx Muscular Dystrophy Skin Medical History: Reports Hx MRSA Psychiatric Medical History: Reports: Hx Depression Denies: Hx Schizophrenia Traumatic Medical History: Denies: Hx Fractures, Hx Gunshot Wound Infectious Medical History: Denies: Hx HIV Past Surgical History: Reports: Hx Bowel Surgery - Old colostomy from a tear intestines resectioned, Hx Cardiac Surgery - pacemaker, Hx Colostomy - with reversal, 6 years ago, Hx Hysterectomy, Hx Orthopedic Surgery - left hip replacement 11/04/2014, Hx Pacemaker - Immunizations Immunizations up to date: Yes Hx Diphtheria, Pertussis, Tetanus Vaccination: No Hx Pneumococcal Vaccination: 06/04/11 Physical Exam - Vital signs Vitals: Temp Pulse Resp BP Pulse Ox 97.5 F 118 H 20 94/55 L 94 02/14/18 15:34 02/14/18 15:34 02/14/18 15:34 02/14/18 15:34 02/14/18 15:34 Course - Vital Signs Vital signs: Temp Pulse Resp BP Pulse Ox 97.5 F 118 H 20 94/55 L 94 02/14/18 15:34 02/14/18 15:34 02/14/18 15:34 02/14/18 15:34 02/14/18 15:34 - Laboratory Result Diagrams: 02/14/18 18:14 02/14/18 18:14 Laboratory results interpreted by me: 02/14/18 02/14/18 18:14 18:14 WBC 18.0 H MCH 26.8 L MCHC 31.5 L RDW 19.9 H Seg Neutrophils % 86.0 H Lymphocytes % 7.8 L Absolute Neutrophils 15.5 H Sodium 133.7 L Creatinine 1.29 H Est GFR ( Amer) 49 L Est GFR (Non-Af Amer) 40 L Glucose 111 H Discharge - Discharge Clinical Impression: Elbow pain, right, Shortness of breath Fall Qualifiers: Encounter type: initial encounter Qualified Code(s): W19.XXXA - Unspecified fall, initial encounter Humerus fracture Qualifiers: Encounter type: initial encounter Humerus Location: proximal Fracture type: closed Fracture morphology: unspecified fracture morphology Laterality: right Qualified Code(s): S42.201A - Unspecified fracture of upper end of right humerus, initial encounter for closed fracture Condition: Good Disposition: HOME, SELF-CARE Instructions: Oral Narcotic Medication ([facility]), Sling as Treatment ([facility]) Additional Instructions: You were seen today in the emergency department because you fell and broke your arm. You had an evaluation including a CAT scan of your head as well as your neck and x-rays of your chest, shoulder, and your right arm. Your arm is broken on the right side, you should keep it in the sling anytime you are awake through the day. You need to schedule an appointment this week with an orthopedist. You have been given a referral to 1, use the contact information to schedule appointment tomorrow. You been given a medication to help with the pain and swelling. You can also use normal pain medications and medicines for the swelling. Prescriptions: Hydrocodone/Acetaminophen [[place] 5-325 mg Tablet] 1 tab PO Q8 PRN 4 Days #15 tablet PRN Reason: Referrals: SARITA CASTILLO MD [Primary Care Provider] - Follow up as needed
[2018-02-14] MEDS ORDERED: ONDANSETRON 4 MG TAB.RAPDIS ONE (19:53)
[2018-02-14] MEDS ORDERED: ONDANSETRON 4 MG TAB.RAPDIS PO ONE (20:45)
[2018-02-14 21:03] VITALS: BP 114/61
== END 2018-02-14 21:05 | disposition home or self-care (01) ==
LOC: ER 15:28
DX: S42.201A Unspecified fracture of upper end of right humerus, initial encounter for closed fracture (principal); W19.XXXA Unspecified fall, initial encounter; J44.9 Chronic obstructive pulmonary disease, unspecified; Z87.01 Personal history of pneumonia (recurrent); Z88.5 Allergy status to narcotic agent; I10 Essential (primary) hypertension; Z99.81 Dependence on supplemental oxygen; M25.521 Pain in right elbow; R06.02 Shortness of breath
CPT/HCPCS: 93005; 99284; 36415; 87040; 85025; 80053; 84484; 83605; 83880; 71046; 73070; 73060; 73030; 70450; 72125; 93010; A9270 ×2; J7030; S0119

== ENCOUNTER 2018-02-16 14:38 | Inpatient (IN) | payer MEDICARE, OTHER ==
--- NOTE | 2018-02-16 15:24 | RADIOLOGY REPORT (SQ) ---
EXAM DESCRIPTION: CT HEAD WITHOUT COMPLETED DATE/TIME: 02/16/2018 3:15 pm REASON FOR STUDY: cough COMPARISON: None. TECHNIQUE: Axial images acquired through the brain without intravenous contrast. Images reviewed wi th bone, brain and subdural windows. Additional sagittal and coronal reconstructions were generated. Images stored on PACS. All CT scanners at this facility use dose modulation, iterative reconstruction, and/or weight based d osing when appropriate to reduce radiation dose to as low as reasonably achievable (ALARA). [facility]: Dose Right [facility]: CareDose [facility]: Dose Right [facility]: Teradose 4D [facility]: Cogbooks RADIATION DOSE: CT Rad equipment meets quality standard of care and radiation dose reduction techniq ues were employed. CTDIvol: 53.2 mGy. DLP: 991 mGy-cm. mGy. LIMITATIONS: None. FINDINGS: VENTRICLES: Normal size and contour. CEREBRUM: No masses. No hemorrhage. No midline shift. No evidence for acute infarction. Normal gra y/white matter differentiation. No areas of low density in the white matter. CEREBELLUM: No masses. No hemorrhage. No alteration of density. No evidence for acute infarction. EXTRAAXIAL SPACES: No fluid collections. No masses. ORBITS AND GLOBE: No intra- or extraconal masses. Normal contour of globe without masses. CALVARIUM: No fracture. PARANASAL SINUSES: No fluid or mucosal thickening. SOFT TISSUES: No mass or hematoma. OTHER: No other significant finding. IMPRESSION: NORMAL BRAIN CT WITHOUT CONTRAST. EVIDENCE OF ACUTE STROKE: NO. COMMENT: Quality ID # [id number]: Final reports with documentation of one or more dose reduction techniques (e.g., Automated exposure control, adjustment of the mA and/or kV according to patient size, use of iterative reconstruction technique) TECHNICAL DOCUMENTATION: JOB ID: [id number] [employer]- All Rights Reserved Reading location - IP/workstation name: [email or web address]
--- NOTE | 2018-02-16 15:40 | RADIOLOGY REPORT (SQ) ---
EXAM DESCRIPTION: CHEST SINGLE VIEW COMPLETED DATE/TIME: 02/16/2018 3:16 pm REASON FOR STUDY: cough COMPARISON: 02/14/2018 NUMBER OF VIEWS: One view. TECHNIQUE: Single frontal radiographic image of the chest acquired. LIMITATIONS: None. FINDINGS: LUNGS AND PLEURA: Subsegmental airspace disease left lower lobe. Improved aeration in the right lung. There is a background of COPD. MEDIASTINUM AND HEART: Stable heart size and mediastinal structures. SUPPORT DEVICES: Appropriate location without change. BONY STRUCTURES: No acute findings. HARDWARE: None. OTHER: No other significant finding. IMPRESSION: COPD. Left lower lobe pneumonia. Reading location - IP/workstation name: [email or web address]
[2018-02-16 15:47] LABS: ABSOLUTE BASOPHILS # (AUTO) 0.1 10^3/uL (0.0-0.2); ABSOLUTE LYMPHOCYTES (AUTO) 1.9 10^3/uL (0.5-4.7); ABSOLUTE MONOCYTES (AUTO) 1.3 10^3/uL (0.1-1.4); ABSOLUTE NEUT (AUTO) 15.3 10^3/uL (1.7-8.2); BASOPHILS % (AUTO) 0.6 % (0-2); HEMATOCRIT 38.5 % (36.0-47.0); HEMOGLOBIN 12.2 g/dL (12.0-15.5); MEAN CORPUSCULAR HEMOGLOBIN 26.8 pg (27.0-33.4); MEAN CORPUSCULAR HGB CONC 31.8 g/dL (32.0-36.0); MEAN CORPUSCULAR VOLUME 84 fl (80-97); PLATELET COUNT 336 10^3/uL (150-450); RED BLOOD COUNT 4.57 10^6/uL (3.72-5.28); RED CELL DISTRIBUTION WIDTH 20.7 % (11.5-14.0); SEGMENTED NEUTROPHILS % (AUTO) 82.4 % (42-78); TOTAL CELLS COUNTED % (AUTO) 100 %; WHITE BLOOD COUNT 18.6 10^3/uL (4.0-10.5)
[2018-02-16 15:48] LABS: VENOUS BLOOD BASE EXCESS -3.9 mmol/L; VENOUS BLOOD HCO3 23.4 mmol/L (20-32); VENOUS BLOOD PCO2 52.2 mmHg (35-63); VENOUS BLOOD PH 7.27 (7.30-7.42)
[2018-02-16 16:18] LABS: APPEARANCE,URINE CLEAR; BILIRUBIN,URINE NEGATIVE (NEGATIVE); COLOR,URINE YELLOW; GLUCOSE, URINE NEGATIVE (NEGATIVE); KETONES,URINE NEGATIVE (NEGATIVE); LEUKOCYTE ESTERASE,URINE NEGATIVE (NEGATIVE); NITRITE,URINE NEGATIVE (NEGATIVE); PROTEIN,URINE NEGATIVE (NEGATIVE); URINE SPECIFIC GRAVITY 1.013; UROBILINOGEN,URINE NEGATIVE mg/dL (<2.0)
--- NOTE | 2018-02-16 17:06 | EKG REPORT ---
SEVERITY:- ABNORMAL ECG - SINUS TACHYCARDIA VENTRICULAR PREMATURE COMPLEX LEFT ANTERIOR FASCICULAR BLOCK CONSIDER LEFT VENTRICULAR HYPERTROPHY BORDERLINE PROLONGED QT INTERVAL : Confirmed by: Ramakrishna Gerber MD 16-Feb-2018 17:05:15
[2018-02-16] MEDS ORDERED: CEFTRIAXONE 1 GM/D5W RTU 1 GM/50 ML RTUPB IV ONE (17:22)
[2018-02-16 18:12] LABS: ALANINE AMINOTRANSFERASE 13 U/L (9-52); ALKALINE PHOSPHATASE 90 U/L (38-126); ANION GAP 11 (5-19); ASPARTATE AMINO TRANSFERASE 23 U/L (14-36); BILIRUBIN,DIRECT 0.2 mg/dL (0.0-0.4); BILIRUBIN,TOTAL 0.4 mg/dL (0.2-1.3); BLOOD UREA NITROGEN 13 mg/dL (7-20); CALCIUM 9.2 mg/dL (8.4-10.2); CARBON DIOXIDE 20 mmol/L (22-30); CHLORIDE 104 mmol/L (98-107); GLUCOSE 101 mg/dL (75-110); POTASSIUM 4.5 mmol/L (3.6-5.0); SODIUM 135.2 mmol/L (137-145); TOTAL PROTEIN 7.4 g/dL (6.3-8.2)
--- NOTE | 2018-02-16 18:39 | ER Document Report ---
ED General - General Chief Complaint: Altered Mental Status Stated Complaint: ALTERED MENTAL STATUS Time Seen by Provider: 02/16/18 15:01 Mode of Arrival: Medic Information source: Patient, Relative Notes: This is a 77-year-old female that is brought to the emergency room because of increased confusion after last few days. Patient is have a history of COPD is not on 2 L nasal cannula and has a history of respiratory failure. She did have a recent fall with a proximal humerus fracture and the family member states that since that time she has had increased confusion. She was noted to have desaturation into the 80s while she was in triage. Patient does report cough and does have baseline shortness of breath. TRAVEL OUTSIDE OF THE [place] IN LAST 30 DAYS: No - HPI Onset: Last week Onset/Duration: Gradual Quality of pain: No pain Severity: None Pain Level: Denies Associated symptoms: Nonproductive cough, Shortness of breath. denies: Chest pain, Fever Exacerbated by: Denies Relieved by: Denies Similar symptoms previously: Yes Recently seen / treated by doctor: Yes - Related Data Allergies/Adverse Reactions: codeine [Codeine] Allergy (Unknown, Verified 02/14/18 15:31) erythromycin base [Erythromycin Base] Allergy (Unknown, Verified 02/14/18 15:31) Past Medical History - General Information source: Patient, Relative - Social History Smoking Status: Former Smoker Cigarette use (# per day): No Chew tobacco use (# tins/day): No Frequency of alcohol use: None Drug Abuse: None Lives with: Family Family History: CAD - This is in not immediate family members., DM, Hyperlipidemia, Hypertension Patient has suicidal ideation: No Patient has homicidal ideation: No - Past Medical History Cardiac Medical History: Reports: Hx Hypercholesterolemia, Hx Hypertension, Hx Pulmonary Embolism Denies: Hx Coronary Artery Disease, Hx Heart Attack Pulmonary Medical History: Reports: Hx Asthma, Hx Bronchitis, Hx COPD, Hx Pneumonia, Hx Respiratory Failure, Hx Sleep Apnea Neurological Medical History: Denies: Hx Cerebrovascular Accident, Hx Seizures Endocrine Medical History: Denies: Hx Graves' Disease Renal/ Medical History: Reports: Hx Kidney Stones - 20 year ago. Denies: Hx Ovarian Cysts, Hx Peritoneal Dialysis, Hx Pelvic Inflammatory Disease Malignancy Medical History: GI Medical History: Reports: Hx Diverticulitis, Hx Gastroesophageal Reflux Disease, Hx Ulcer. Denies: Hx Irritable Bowel, Hx Liver Failure, Hx Pancreatitis Musculoskeletal Medical History: Denies Hx Arthritis, Denies Hx Multiple Sclerosis, Denies Hx Muscular Dystrophy Skin Medical History: Reports Hx MRSA Psychiatric Medical History: Reports: Hx Depression Denies: Hx Schizophrenia Traumatic Medical History: Denies: Hx Fractures, Hx Gunshot Wound Infectious Medical History: Denies: Hx HIV Past Surgical History: Reports: Hx Bowel Surgery - Old colostomy from a tear intestines resectioned, Hx Cardiac Surgery - pacemaker, Hx Colostomy - with reve rsal, 6 years ago, Hx Hysterectomy, Hx Orthopedic Surgery - left hip replacement 11/04/2014, Hx Pacemaker - Immunizations Immunizations up to date: Yes Hx Diphtheria, Pertussis, Tetanus Vaccination: No Hx Pneumococcal Vaccination: 06/04/11 Review of Systems - Review of Systems Constitutional: denies: Chills, Fever EENT: No symptoms reported Cardiovascular: No symptoms reported Respiratory: See HPI Gastrointestinal: No symptoms reported Genitourinary: No symptoms reported Female Genitourinary: No symptoms reported Musculoskeletal: No symptoms reported Skin: No symptoms reported Neurological/Psychological: See HPI, Confusion Physical Exam - Vital signs Vitals: Temp Pulse Resp BP Pulse Ox 97.8 F 117 H 28 H 117/62 85 L 02/16/18 14:41 02/16/18 14:41 02/16/18 14:41 02/16/18 14:41 02/16/18 14:41 Notes: Physical exam: GENERAL: She is alert and oriented x3, answering questions HEAD: Atraumatic, normocephalic. EYES: Pupils equal round and reactive to light, extraocular movements intact, sclera anicteric, conjunctiva are normal. ENT: TMs normal, nares patent, oropharynx clear without exudates. Moist mucous membranes. NECK: Normal range of motion, supple without obvious mass or JVD. LUNGS: Patient does have crackles at the left base with rhonchi and does have bilateral wheezing. HEART: Regular rate and rhythm without murmurs, rubs or gallops. ABDOMEN: Soft, normoactive bowel sounds. No tenderness to palpation. No guarding, no rebound. No masses appreciated. EXTREMITIES: Normal range of motion, no pitting or edema. No clubbing or cyanosis. NEUROLOGICAL: Cranial nerves II through XII grossly intact. Normal speech, moving all extremities. PSYCH: Normal mood, normal affect. SKIN: Warm, Dry, normal turgor, no rashes or lesions noted. Course - Re-evaluation Re-evalutation: 02/16/18 18:38 Is an oxygen dependent 77-year-old woman with COPD presenting with increased confusion, leukocytosis and a chest x-ray showing a left lobe pneumonia. Therefore, blood cultures were sent and IV antibiotics were started for pneumonia. - Vital Signs Vital signs: Temp Pulse Resp BP Pulse Ox 97.8 F 117 H 22 H 121/58 L 97 02/16/18 14:41 02/16/18 14:41 02/16/18 23:01 02/16/18 23:01 02/16/18 23:01 - Laboratory Result Diagrams: 02/16/18 15:33 02/16/18 17:09 Laboratory results interpreted by me: 02/16/18 02/16/18 02/16/18 15:33 15:33 17:09 WBC 18.6 H MCH 26.8 L MCHC 31.8 L RDW 20.7 H Seg Neutrophils % 82.4 H Lymphocytes % 10.0 L Absolute Neutrophils 15.3 H VBG pH 7.27 L Sodium 135.2 L Carbon Dioxide 20 L Est GFR (Non-Af Amer) 52 L - Diagnostic Test Radiology reviewed: Image reviewed, Reports reviewed - Left lower lobe pneumonia - EKG Interpretation by Me Rate: Tachycardia - EKG shows sinus tachycardia with a ventricular rate of 105, left anterior fascicular block, no acute ST-T wave changes Critical Care Note - Critical Care Note Total time excluding time spent on procedures (mins): 60 Discharge - Discharge Clinical Impression: Pneumonia Condition: Stable Disposition: ADMITTED INPATIENT Admitting Provider: Renetta Unit Admitted: [facility]
[2018-02-17] MEDS: OXYCODONE-ACETAMINOPHEN 5-325 MG TABLET PO PRN ×4 (02:07→20:11)
[2018-02-17] MEDS ORDERED: VANCOMYCIN HCL 0 MG in DEXTROSE 5%-WATER 250 ML IV NR (09:00)
[2018-02-17] MEDS ORDERED: (PENDING PHARMACY ID) (Buspirone Hcl [Buspar 15 Mg Tablet] 7.5 MG) PO SCH (09:00)
[2018-02-17] MEDS ORDERED: (PENDING PHARMACY ID) (Citalopram Hydrobromide [Celexa 40 Mg Tablet] 40 MG) PO SCH (10:00)
[2018-02-17] MEDS ORDERED: (PENDING PHARMACY ID) (Multivit-Min/Iron/Folic/Lutein [Centrum Silver Women Tablet] 1 EACH PO SCH (10:00)
[2018-02-17] MEDS: ACETAZOLAMIDE 250 MG TABLET PO SCH ×2 (10:19→22:02)
[2018-02-17] MEDS: ENOXAPARIN SODIUM INJ 30 MG/0.3 ML DISP.SYRIN SUBCUT SCH (10:19)
[2018-02-17] MEDS: FLUTICASONE/UMECLIDIN/VILANTER 100-62.5-25 MCG/DOSE IH SCH (10:20)
[2018-02-17] MEDS: LANSOPRAZOLE 30 MG TAB.RAP.DR PO SCH (10:20)
[2018-02-17] MEDS: MONTELUKAST SODIUM 10 MG TABLET PO SCH (10:20)
[2018-02-17] MEDS: ROPINIROLE HCL 1 MG TABLET PO SCH ×3 (10:20→22:02)
[2018-02-17] MEDS: CITALOPRAM HYDROBROMIDE 20 MG TABLET PO SCH (12:36)
[2018-02-17] MEDS: MULTIVITAMINS W-IRON TABLET, CHEWABLE PO SCH (12:37)
[2018-02-17] MEDS: ALPRAZOLAM 0.5 MG TABLET PO PRN (12:47)
[2018-02-17] MEDS: VANCOMYCIN HCL 500 MG in DEXTROSE 5%-WATER 100 ML IV SCH (12:47)
--- NOTE | 2018-02-17 16:28 | PDOC H&P ---
History of Present Illness Admission Date/PCP: 02/16/18 18:48 SARITA ANNA Patient complains of: [place] Confuiosn and Difficultry with breathing History of Present Illness: SUSAN BINGHAM is a 77 year old female patient known to my practice brought to the ED by family with reported worsening confusion and difficulty with breathing over last few days. She reported associated coughing and development of low oxygen level whenever she is off her supplemental oxygen via nasal cannula at 3L/dl. She denied nasal or sinus congestion. She denied associated fever or chills. No chest pain, palpitation, nausea or vomiting. There is associated poor appetite and p.o intake. She denied any diarrhea or constipation. She reported recent fall at home with development of right impacted proximal humerus fracture and ecchymosis in the same area. Her initial ED evaluation revealed leukocytosis, left lower lobe consolidation, and increase confussional state. Her morbidities include end state COPD, Hypertension, Hyperlipidemia, chronic pulmonary embolism, Asthma, Cardiovascular Accident, Seizures disorder, Depression, and osteoarthritis. She was advised hosp italization for further evaluation and management Past Medical History Cardiac Medical History: Reports: Hyperlipidema, Hypertension, Pulmonary Embolism Denies: Coronary Artery Disease, Myocardial Infarction Pulmonary Medical History: Reports: Asthma, Bronchitis, Chronic Obstructive Pulmonary Disease (COPD), Pneumonia, Respiratory Failure, Sleep Apnea Neurological Medical History: Denies: Seizures Endocrine Medical History: Renal/ Medical History: Malignancy Medical History: GI Medical History: Reports: Diverticulitis, Gastroesophageal Reflux Disease Musculoskeltal Medical History: Denies: Arthritis Psychiatric Medical History: Reports: Depression Traumatic Medical History: Denies: Gunshot Wound Hematology: Denies: Anemia Infectious Medical History: Denies: HIV Past Surgical History Past Surgical History: Reports: Colostomy - with reversal, 6 years ago, Hysterectomy, Orthopedic Surgery - left hip replacement 11/04/2014, Pacemaker Social History Lives with: Family Smoking Status: Former Smoker Last Time Smoked: 2016 Frequency of Alcohol Use: None Hx Recreational Drug Use: No Drugs: None Hx Prescription Drug Abuse: No Family History Family History: CAD - This is in not immediate family members., DM, Hyperlipidemia, Hypertension Parental Family History Reviewed: Yes Children Family History Reviewed: Yes Sibling(s) Family History Reviewed.: Yes Medication/Allergy Home Medications: Acetazolamide [Diamox 250 mg Tab] 250 mg PO Q12 07/08/17 Buspirone HCl [Buspar 15 mg Tablet] 7.5 mg PO Q8 MDD LAST FILLED 11-21-17 07/08/17 Citalopram Hydrobromide [Celexa 40 mg Tablet] 40 mg PO DAILY 07/08/17 Montelukast Sodium [Singulair 10 mg Tablet] 10 mg PO DAILY 07/08/17 Ropinirole HCl [Requip] 1 mg PO Q8 MDD LAST FILLED 10-17-17 07/08/17 Oxycodone HCl/Acetaminophen [Percocet 7.5-325 mg Tablet] 1 tab PO Q8HP PRN #60 tablet 01/10/18 Zolpidem Tartrate [Ambien 5 mg Tablet] 5 mg PO HSP PRN #30 tablet 01/10/18 Alprazolam [Xanax 0.5 mg Tablet] 0.5 mg PO Q8HP PRN 02/16/18 Fluticasone/Umeclidin/Vilanter [Trelegy 100-62.5-25 Mcg Ellipta 14 Dose/Dpi] 1 each IH DAILY MDD LAST FILLED 10-17-17 02/16/18 Multivit-Min/Iron/Folic/Lutein [Centrum Silver Women Tablet] 1 each PO DAILY 02/16/18 Allergies/Adverse Reactions: erythromycin base [Erythromycin Base] Allergy (Unknown, Verified 02/14/18 15:31) Physical Exam Vital Signs: Temp Pulse Resp BP Pulse Ox 98.4 F 85 18 119/51 L 95 02/17/18 03:03 02/17/18 07:00 02/17/18 03:03 02/17/18 03:03 02/17/18 03:03 Intake & Output 02/16/18 02/17/18 02/18/18 06:59 06:59 06:59 Intake Total 50 Balance 50 Weight 48.5 kg General appearance: PRESENT: mild distress - on supplemental oxygen via nasal cannula, thin Head exam: PRESENT: atraumatic, normocephalic Eye exam: PRESENT: conjunctiva pink, EOMI, PERRLA. ABSENT: scleral icterus Ear exam: PRESENT: normal external ear exam Mouth exam: PRESENT: moist Respiratory exam: PRESENT: decreased breath sounds, rhonchi, wheezes Cardiovascular exam: PRESENT: RRR. ABSENT: diastolic murmur, rubs, systolic murmur Pulses: PRESENT: +1 pedal pulses bilateral Vascular exam: PRESENT: normal capillary refill, other - right chest wall perm- cath. ABSENT: pallor GI/Abdominal exam: PRESENT: normal bowel sounds, soft. ABSENT: distended, guarding, mass, organolmegaly, rebound, tenderness Rectal exam: PRESENT: deferred Extremities exam: ABSENT: pedal edema Musculoskeletal exam: PRESENT: deformity - related to multiple joints involvement with arthritis, tenderness - right arm and shoulder region from recent fal and fracture. Neurological exam: PRESENT: alert, awake, oriented to person, oriented to place, oriented to time, oriented to situation, CN II-XII grossly intact. ABSENT: motor sensory deficit Psychiatric exam: PRESENT: appropriate affect, normal mood. ABSENT: homicidal ideation, suicidal ideation Skin exam: PRESENT: dry, warm, other - upper extremities resolving ecchymotic lesions from her recent fall incident. Results Laboratory Results: 02/16/18 15:33 02/16/18 17:09 02/16/18 02/16/18 02/16/18 15:33 15:33 15:33 WBC 18.6 H RBC 4.57 Hgb 12.2 Hct 38.5 MCV 84 MCH 26.8 L MCHC 31.8 L RDW 20.7 H Plt Count 336 Seg Neutrophils % 82.4 H Lymphocytes % 10.0 L Monocytes % 7.0 Eosinophils % 0.0 Basophils % 0.6 Absolute Neutrophils 15.3 H Absolute Lymphocytes 1.9 Absolute Monocytes 1.3 Absolute Eosinophils 0.0 Absolute Basophils 0.1 VBG pH 7.27 L VBG pCO2 52.2 VBG HCO3 23.4 VBG Base Excess -3.9 Sodium Cancelled Potassium Cancelled Chloride Cancelled Carbon Dioxide Cancelled Anion Gap Cancelled BUN Cancelled Creatinine Cancelled Est GFR ( Amer) Cancelled Est GFR (Non-Af Amer) Cancelled Glucose Cancelled Calcium Cancelled Total Bilirubin Cancelled AST Cancelled ALT Cancelled Alkaline Phosphatase Cancelled Total Protein Cancelled Albumin Cancelled Urine Color Urine Appearance Urine pH Ur Specific [place] Urine Protein Urine Glucose (UA) Urine Ketones Urine Blood Urine Nitrite Ur Leukocyte Esterase Urine WBC (Auto) Urine RBC (Auto) 02/16/18 02/16/18 15:55 17:09 WBC RBC Hgb Hct MCV MCH MCHC RDW Plt Count Seg Neutrophils % Lymphocytes % Monocytes % Eosinophils % Basophils % Absolute Neutrophils Absolute Lymphocytes Absolute Monocytes Absolute Eosinophils Absolute Basophils VBG pH VBG pCO2 VBG HCO3 VBG Base Excess Sodium 135.2 L Potassium 4.5 Chloride 104 Carbon Dioxide 20 L Anion Gap 11 BUN 13 Creatinine 1.04 Est GFR ( Amer) > 60 Est GFR (Non-Af Amer) 52 L Glucose 101 Calcium 9.2 Total Bilirubin 0.4 AST 23 ALT 13 Alkaline Phosphatase 90 Total Protein 7.4 Albumin 4.0 Urine Color YELLOW Urine Appearance CLEAR Urine pH 6.0 Ur Specific [place] 1.013 Urine Protein NEGATIVE Urine Glucose (UA) NEGATIVE Urine Ketones NEGATIVE Urine Blood NEGATIVE Urine Nitrite NEGATIVE Ur Leukocyte Esterase NEGATIVE Urine WBC (Auto) 2 Urine RBC (Auto) 0 Impressions: Chest X-Ray 02/16/18 15:02 IMPRESSION: COPD. Left lower lobe pneumonia. Head CT 02/16/18 15:02 IMPRESSION: NORMAL BRAIN CT WITHOUT CONTRAST. EVIDENCE OF ACUTE STROKE: NO. Assessment & Plan - Diagnosis (1) Lobar pneumonia, unspecified organism Is this a current diagnosis for this admission?: Yes Plan: Admit to IMCU for closer monitoring in view of her significant morbidities. D/C IV Rocephin with concern for HAP. Start on IV Cefepime 2 gm [id number] and IV Levofloxacin 750 mg daily. Continue IV Vancomycin coverage. (2) End stage chronic obstructive pulmonary disease Is this a current diagnosis for this admission?: Yes Plan: Continue her preadmission medication management and re-evaluate as necessary. (3) Chronic respiratory failure with hypoxia and hypercapnia Is this a current diagnosis for this admission?: Yes Plan: Patient will remain on supplemental oxygen via nasal cannula and all her preadmission medication management. (4) HTN (hypertension) Qualifiers: Hypertension type: essential hypertension Qualified Code(s): I10 - Essential (primary) hypertension Is this a current diagnosis for this admission?: Yes Plan: Continue all preadmission medication management. (5) HLD (hyperlipidemia) Qualifiers: Hyperlipidemia type: pure hypercholesterolemia Qualified Code(s): E78.00 - Pure hypercholesterolemia, unspecified Is this a current diagnosis for this admission?: Yes Plan: Continue all preadmission medication management. (6) Osteoarthritis Qualifiers: Osteoarthritis location: unspecified site Is this a current diagnosis for this admission?: Yes Plan: Continue all preadmission medication management. (7) Humerus fracture Qualifiers: Encounter type: subsequent encounter Humerus Location: proximal Fracture type: closed Fracture morphology: unspecified fracture morphology Laterality: right Qualified Code(s): S42.201A - Unspecified fracture of upper end of right humerus, initial encounter for closed fracture Is this a current diagnosis for this admission?: Yes Plan: We will continue conservative management with use of upper extremity support sling and pain management. (8) Chronic pain syndrome Is this a current diagnosis for this admission?: Yes Plan: Continue all preadmission medication management. (9) Long-term current use of opiate analgesic Is this a current diagnosis for this admission?: Yes Plan: Continue preadmission medication management with adjustment of dosage strength. (10) Mixed anxiety and depressive disorder Is this a current diagnosis for this admission?: Yes Plan: Continue all preadmission medication management. (11) GERD (gastroesophageal reflux disease) Qualifiers: Esophagitis presence: without esophagitis Qualified Code(s): K21.9 - Gastro-esophageal reflux disease without esophagitis Is this a current diagnosis for this admission?: Yes Plan: Continue all preadmission medication management. (12) Protein-calorie undernutrition Qualifiers: Protein-calorie malnutrition severity: moderate Qualified Code(s): E44.0 - Moderate protein-calorie malnutrition Is this a current diagnosis for this admission?: Yes Plan: Start on supplemental nutrition using Ensure and Beneprotein. - Time Time Spent: 50 to 70 Minutes Medications reviewed and adjusted accordingly: Yes Anticipated discharge: Home with Homehealth Within: Other - Inpatient Certification Based on my medical assessment, after consideration of the patient's mc rbidities, presenting symptoms, or acuity I expect that the services needed warrant INPATIENT care.: Yes I certify that my determination is in accordance with my understanding of Medicare's requirements for reasonable and necessary INPATIENT services [42 CFR 412.3e].: Yes Medical Necessity: Need Close Monitoring Due to Risk of Patient Decompensation, Need For IV Fluids, Need For Continuous Telemetry Monitoring, Need for Pain Control, Need for IV Antibiotics, Risk of Complication if Not Cared For in Hospital Post Hospital Care: D/C Disintegrator Documentation - Plan Summary Plan Summary: See admitting attending physician orders as per above outlined care plan.
[2018-02-17] MEDS ORDERED: CEFTRIAXONE 1 GM/D5W RTU 1 GM/50 ML RTUPB IV SCH (18:00)
[2018-02-17] MEDS: LEVOFLOXACIN 750 MG/D5W RTU 750 MG/150 ML RTUPB IV SCH (22:00)
[2018-02-17] MEDS: ZOLPIDEM TARTRATE 5 MG TABLET PO PRN (22:04)
[2018-02-17] MEDS: CEFEPIME 2 GM/D5W RTU 2 GM/50 ML RTUPB IV SCH (22:59)
[2018-02-18] MEDS: OXYCODONE-ACETAMINOPHEN 5-325 MG TABLET PO PRN ×4 (03:41→23:17)
[2018-02-18] MEDS: ALPRAZOLAM 0.5 MG TABLET PO PRN ×2 (03:41→23:17)
[2018-02-18] MEDS: ROPINIROLE HCL 1 MG TABLET PO SCH ×3 (05:54→22:37)
[2018-02-18] MEDS: LANSOPRAZOLE 30 MG TAB.RAP.DR PO SCH (05:54)
[2018-02-18] MEDS: MULTIVITAMINS W-IRON TABLET, CHEWABLE PO SCH (09:07)
[2018-02-18] MEDS: CITALOPRAM HYDROBROMIDE 20 MG TABLET PO SCH (09:07)
[2018-02-18] MEDS: ACETAZOLAMIDE 250 MG TABLET PO SCH ×2 (09:08→22:37)
[2018-02-18] MEDS: ENOXAPARIN SODIUM INJ 30 MG/0.3 ML DISP.SYRIN SUBCUT SCH (09:08)
[2018-02-18] MEDS: MONTELUKAST SODIUM 10 MG TABLET PO SCH (09:08)
[2018-02-18] MEDS: FLUTICASONE/UMECLIDIN/VILANTER 100-62.5-25 MCG/DOSE IH SCH (09:09)
[2018-02-18] MEDS: CEFEPIME 2 GM/D5W RTU 2 GM/50 ML RTUPB IV SCH ×2 (09:09→22:37)
[2018-02-18] MEDS: VANCOMYCIN HCL 500 MG in DEXTROSE 5%-WATER 100 ML IV SCH (13:01)
--- NOTE | 2018-02-18 18:13 | PDOC PROGRESS REPORT ---
Subjective Progress Note for:: 02/18/18 Subjective:: Patient was seen by the bedside she has no new complaints Reason For Visit: PNEUMONIA COPD Physical Exam Vital Signs: Temp Pulse Resp BP Pulse Ox 98.5 F 72 18 96/54 L 95 02/18/18 15:41 02/18/18 15:41 02/18/18 15:41 02/18/18 15:41 02/18/18 15:41 Intake & Output 02/17/18 02/18/18 02/19/18 06:59 06:59 06:59 Intake Total 50 675 375 Output Total 400 Balance 50 675 -25 Weight 48.5 kg 51.9 kg General appearance: PRESENT: no acute distress Eye exam: PRESENT: PERRLA Respiratory exam: PRESENT: rhonchi Cardiovascular exam: PRESENT: +S1, +S2 GI/Abdominal exam: PRESENT: soft Neurological exam: PRESENT: alert Results Laboratory Results: 02/16/18 15:33 02/16/18 17:09 02/16/18 15:55 Clean Catch Midstream Urine Culture - Final NO GROWTH 2 DAYS Impressions: Chest X-Ray 02/16/18 15:02 IMPRESSION: COPD. Left lower lobe pneumonia. Head CT 02/16/18 15:02 IMPRESSION: NORMAL BRAIN CT WITHOUT CONTRAST. EVIDENCE OF ACUTE STROKE: NO. Assessment & Plan - Diagnosis (1) Lobar pneumonia, unspecified organism Is this a current diagnosis for this admission?: Yes Plan: Continue treatment (2) End stage chronic obstructive pulmonary disease Is this a current diagnosis for this admission?: Yes (3) CAD (coronary artery disease) Qualifiers: Coronary Disease-Associated Artery/Lesion type: [place] artery Associated angina: without angina Is this a current diagnosis for this admission?: Yes
[2018-02-18] MEDS: ZOLPIDEM TARTRATE 5 MG TABLET PO PRN (23:17)
[2018-02-19] MEDS: OXYCODONE-ACETAMINOPHEN 5-325 MG TABLET PO PRN ×4 (03:25→22:09)
[2018-02-19] MEDS: LANSOPRAZOLE 30 MG TAB.RAP.DR PO SCH (05:14)
[2018-02-19] MEDS: ROPINIROLE HCL 1 MG TABLET PO SCH ×3 (05:14→21:14)
[2018-02-19] MEDS: ACETAZOLAMIDE 250 MG TABLET PO SCH ×2 (10:01→21:14)
[2018-02-19] MEDS: CITALOPRAM HYDROBROMIDE 20 MG TABLET PO SCH (10:01)
[2018-02-19] MEDS: MONTELUKAST SODIUM 10 MG TABLET PO SCH (10:01)
[2018-02-19] MEDS: MULTIVITAMINS W-IRON TABLET, CHEWABLE PO SCH (10:02)
[2018-02-19] MEDS: CEFEPIME 2 GM/D5W RTU 2 GM/50 ML RTUPB IV SCH ×2 (10:02→21:14)
[2018-02-19] MEDS: ENOXAPARIN SODIUM INJ 30 MG/0.3 ML DISP.SYRIN SUBCUT SCH (10:04)
[2018-02-19] MEDS: FLUTICASONE/UMECLIDIN/VILANTER 100-62.5-25 MCG/DOSE IH SCH (10:04)
[2018-02-19] MEDS: ALPRAZOLAM 0.5 MG TABLET PO PRN ×2 (10:06→22:09)
[2018-02-19] MEDS: VANCOMYCIN HCL 500 MG in DEXTROSE 5%-WATER 100 ML IV SCH (11:40)
--- NOTE | 2018-02-19 14:47 | PDOC PROGRESS REPORT ---
Subjective Progress Note for:: 02/19/18 Subjective:: Patient was seen by the bedside she has no new complaints Reason For Visit: PNEUMONIA COPD Physical Exam Vital Signs: Temp Pulse Resp BP Pulse Ox 98.0 F 94 18 97/46 L 96 02/19/18 11:12 02/19/18 11:12 02/19/18 11:12 02/19/18 11:12 02/19/18 11:12 Intake & Output 02/18/18 02/19/18 02/20/18 06:59 06:59 06:59 Intake Total 675 625 400 Output Total 400 Balance 675 225 400 Weight 51.9 kg 51 kg General appearance: PRESENT: no acute distress Eye exam: PRESENT: PERRLA Respiratory exam: PRESENT: rhonchi Cardiovascular exam: PRESENT: +S1, +S2 GI/Abdominal exam: PRESENT: soft Results Laboratory Results: 02/16/18 15:33 02/16/18 17:09 02/17/18 03:30 Sputum Gram Stain - Final 02/17/18 03:30 Sputum Sputum Culture - Final Pseudomonas Aeruginosa Normal Analy Absent 02/16/18 15:55 Clean Catch Midstream Urine Culture - Final NO GROWTH 2 DAYS Impressions: Chest X-Ray 02/16/18 15:02 IMPRESSION: COPD. Left lower lobe pneumonia. Head CT 02/16/18 15:02 IMPRESSION: NORMAL BRAIN CT WITHOUT CONTRAST. EVIDENCE OF ACUTE STROKE: NO. Assessment & Plan - Diagnosis (1) Lobar pneumonia, unspecified organism Is this a current diagnosis for this admission?: Yes Plan: Continue treatment (2) End stage chronic obstructive pulmonary disease Is this a current diagnosis for this admission?: Yes (3) CAD (coronary artery disease) Qualifiers: Coronary Disease-Associated Artery/Lesion type: circle artery Associated angina: without angina Is this a current diagnosis for this admission?: Yes
[2018-02-19] MEDS: LEVOFLOXACIN 750 MG/D5W RTU 750 MG/150 ML RTUPB IV SCH (17:19)
[2018-02-19] MEDS ORDERED: MEROPENEM 1 GM in NORMAL SALINE 50 ML IV SCH (18:00)
[2018-02-19] MEDS: ZOLPIDEM TARTRATE 5 MG TABLET PO PRN (22:10)
[2018-02-20] MEDS: ROPINIROLE HCL 1 MG TABLET PO SCH ×3 (05:13→21:14)
[2018-02-20] MEDS: LANSOPRAZOLE 30 MG TAB.RAP.DR PO SCH (05:13)
[2018-02-20] MEDS: OXYCODONE-ACETAMINOPHEN 5-325 MG TABLET PO PRN (08:30)
[2018-02-20] MEDS: MULTIVITAMINS W-IRON TABLET, CHEWABLE PO SCH (09:36)
[2018-02-20] MEDS: MONTELUKAST SODIUM 10 MG TABLET PO SCH (09:37)
[2018-02-20] MEDS: ACETAZOLAMIDE 250 MG TABLET PO SCH ×2 (09:37→21:14)
[2018-02-20] MEDS: CITALOPRAM HYDROBROMIDE 20 MG TABLET PO SCH (09:37)
[2018-02-20] MEDS: FLUTICASONE/UMECLIDIN/VILANTER 100-62.5-25 MCG/DOSE IH SCH (09:38)
[2018-02-20] MEDS: ENOXAPARIN SODIUM INJ 30 MG/0.3 ML DISP.SYRIN SUBCUT SCH (09:38)
[2018-02-20] MEDS: CEFEPIME 2 GM/D5W RTU 2 GM/50 ML RTUPB IV SCH ×2 (09:38→21:14)
[2018-02-20 12:01] LABS: VANCOMYCIN,TROUGH 14.5 ug/mL (5.0-20.0)
--- NOTE | 2018-02-20 20:28 | PDOC PROGRESS REPORT ---
Subjective Progress Note for:: 02/20/18 Subjective:: Patient reported improvement in her breathing and less productive coughing. Sputum culture did revealed Pseudomonas Aeruginosa. No chest pain. No nausea, vomiting, or abdominal pain. No fever but continue to experience intermittent chills. Reason For Visit: PNEUMONIA COPD Physical Exam Vital Signs: Temp Pulse Resp BP Pulse Ox 97.5 F 76 18 101/46 L 100 02/20/18 14:52 02/20/18 14:52 02/20/18 14:52 02/20/18 14:52 02/20/18 14:52 Intake & Output 02/19/18 02/20/18 02/21/18 06:59 06:59 06:59 Intake Total 625 1258 787 Output Total 400 700 900 Balance 225 558 -113 Weight 51 kg 50.6 kg General appearance: PRESENT: no acute distress, thin Head exam: PRESENT: atraumatic, normocephalic Eye exam: PRESENT: conjunctiva pink, EOMI, PERRLA. ABSENT: scleral icterus Ear exam: PRESENT: normal external ear exam Mouth exam: PRESENT: moist Respiratory exam: PRESENT: decreased breath sounds - at lung bases, prolonged expiratory phas Cardiovascular exam: PRESENT: RRR. ABSENT: diastolic murmur, rubs, systolic murmur Vascular exam: PRESENT: normal capillary refill, other - right anterior chest wall vascular catheter dressing okay.. ABSENT: pallor GI/Abdominal exam: PRESENT: normal bowel sounds, soft. ABSENT: distended, guarding, mass, organolmegaly, rebound, tenderness Extremities exam: ABSENT: pedal edema Musculoskeletal exam: PRESENT: deformity - related to multiple joints involvement with arthritis Neurological exam: PRESENT: alert, awake, oriented to person, oriented to place, oriented to time, oriented to situation, CN II-XII grossly intact. ABSENT: motor sensory deficit Psychiatric exam: PRESENT: appropriate affect, normal mood. ABSENT: homicidal ideation, suicidal ideation Skin exam: PRESENT: dry, warm Results Laboratory Results: 02/16/18 15:33 02/16/18 17:09 Impressions: Chest X-Ray 02/16/18 15:02 IMPRESSION: COPD. Left lower lobe pneumonia. Head CT 02/16/18 15:02 IMPRESSION: NORMAL BRAIN CT WITHOUT CONTRAST. EVIDENCE OF ACUTE STROKE: NO. Assessment & Plan - Diagnosis (1) Lobar pneumonia, unspecified organism Is this a current diagnosis for this admission?: Yes (2) End stage chronic obstructive pulmonary disease Is this a current diagnosis for this admission?: Yes (3) Chronic respiratory failure with hypoxia and hypercapnia Is this a current diagnosis for this admission?: Yes (4) HTN (hypertension) Qualifiers: Hypertension type: essential hypertension Qualified Code(s): I10 - Essential (primary) hypertension Is this a current diagnosis for this admission?: Yes (5) HLD (hyperlipidemia) Qualifiers: Hyperlipidemia type: pure hypercholesterolemia Qualified Code(s): E78.00 - Pure hypercholesterolemia, unspecified Is this a current diagnosis for this admission?: Yes (6) Osteoarthritis Qualifiers: Osteoarthritis location: unspecified site Is this a current diagnosis for this admission?: Yes (7) Humerus fracture Qualifiers: Encounter type: subsequent encounter Humerus Location: proximal Fracture type: closed Fracture morphology: unspecified fracture morphology Laterali ty: right Is this a current diagnosis for this admission?: Yes (8) Chronic pain syndrome Is this a current diagnosis for this admission?: Yes (9) Long-term current use of opiate analgesic Is this a current diagnosis for this admission?: Yes (10) Mixed anxiety and depressive disorder Is this a current diagnosis for this admission?: Yes (11) GERD (gastroesophageal reflux disease) Qualifiers: Esophagitis presence: without esophagitis Qualified Code(s): K21.9 - G rc-esophageal reflux disease without esophagitis Is this a current diagnosis for this admission?: Yes (12) Protein-calorie undernutrition Qualifiers: Protein-calorie malnutrition severity: moderate Qualified Code(s): E44.0 - Moderate protein-calorie malnutrition Is this a current diagnosis for this admission?: Yes (13) Pneumonia due to Pseudomonas aeruginosa Is this a current diagnosis for this admission?: Yes Plan: Continue IV Cefepime coverage. D/C IV Vancomycin and Levofloxacin coverage. - Time Time Spent with patient: 25-34 minutes Medications reviewed and adjusted accordingly: Yes Anticipated discharge: Home with Homehealth Within: Other - Inpatient Certification Based on my medical assessment, after consideration of the patient's comorbidi ties, presenting symptoms, or acuity I expect that the services needed warrant INPATIENT care.: Yes I certify that my determination is in accordance with my understanding of Darci scherer's requirements for reasonable and necessary INPATIENT services [42 CFR 412.3e].: Yes Medical Necessity: Need Close Monitoring Due to Risk of Patient Decompensation, Need For IV Fluids, Need For Continuous Telemetry Monitoring, Need for IV Antibiotics, Risk of Complication if Not Cared For in Hospital, Risk of Diagnosis Which Will Require Inpatient Eval/Care/Monitoring Post Hospital Care: D/C Computerized Mill Recorder Documentation - Plan Summary Plan Summary: Continue current medication management. Encouraged use of Flutter device. Obtain CBC with diff and CMP in am.
[2018-02-20] MEDS: ZOLPIDEM TARTRATE 5 MG TABLET PO PRN (22:12)
[2018-02-20] MEDS: ALPRAZOLAM 0.5 MG TABLET PO PRN (22:12)
[2018-02-21] MEDS: OXYCODONE-ACETAMINOPHEN 5-325 MG TABLET PO PRN ×3 (00:23→19:41)
[2018-02-21] MEDS: ROPINIROLE HCL 1 MG TABLET PO SCH ×3 (05:22→21:12)
[2018-02-21] MEDS: LANSOPRAZOLE 30 MG TAB.RAP.DR PO SCH (05:24)
[2018-02-21 06:44] LABS: HEMATOCRIT 36.3 % (36.0-47.0); HEMOGLOBIN 11.6 g/dL (12.0-15.5); MEAN CORPUSCULAR HEMOGLOBIN 26.9 pg (27.0-33.4); MEAN CORPUSCULAR HGB CONC 32.1 g/dL (32.0-36.0); MEAN CORPUSCULAR VOLUME 84 fl (80-97); PLATELET COUNT 408 10^3/uL (150-450); RED BLOOD COUNT 4.33 10^6/uL (3.72-5.28); RED CELL DISTRIBUTION WIDTH 20.9 % (11.5-14.0); WHITE BLOOD COUNT 10.3 10^3/uL (4.0-10.5)
[2018-02-21 06:59] LABS: ALANINE AMINOTRANSFERASE 20 U/L (9-52); ALBUMIN 3.8 g/dL (3.5-5.0); ALKALINE PHOSPHATASE 89 U/L (38-126); ANION GAP 9 (5-19); ASPARTATE AMINO TRANSFERASE 19 U/L (14-36); BILIRUBIN,DIRECT 0.1 mg/dL (0.0-0.4); BILIRUBIN,TOTAL 0.2 mg/dL (0.2-1.3); BLOOD UREA NITROGEN 25 mg/dL (7-20); CALCIUM 9.7 mg/dL (8.4-10.2); CARBON DIOXIDE 21 mmol/L (22-30); CHLORIDE 109 mmol/L (98-107); GLUCOSE 102 mg/dL (75-110); POTASSIUM 4.8 mmol/L (3.6-5.0); SODIUM 139.3 mmol/L (137-145); TOTAL PROTEIN 7.1 g/dL (6.3-8.2)
[2018-02-21 07:07] LABS: BASOPHILS % (MANUAL) 2 % (0-2); EOSINOPHILS % (MANUAL) 2 % (0-6); LYMPHOCYTES % (MANUAL) 19 % (13-45); MONOCYTES % (MANUAL) 19 % (3-13); MYELOCYTES % (MANUAL) 2 % (0); SEGMENTED NEUTROPHILS % (MAN) 56 % (42-78); TOTAL CELLS COUNTED 100
[2018-02-21 07:08] LABS: ANISOCYTOSIS 2+; BURR CELLS 1+; PLATELET COMMENT ADEQUATE; PLATELET LARGE PRESENT; POIKILOCYTOSIS 2+; SCHISTOCYTES 1+; TEAR DROP CELLS 1+; TOXIC GRANULATION 1+
[2018-02-21] MEDS: ENOXAPARIN SODIUM INJ 30 MG/0.3 ML DISP.SYRIN SUBCUT SCH (09:26)
[2018-02-21] MEDS: CITALOPRAM HYDROBROMIDE 20 MG TABLET PO SCH (09:26)
[2018-02-21] MEDS: FLUTICASONE/UMECLIDIN/VILANTER 100-62.5-25 MCG/DOSE IH SCH (09:26)
[2018-02-21] MEDS: MULTIVITAMINS W-IRON TABLET, CHEWABLE PO SCH (09:26)
[2018-02-21] MEDS: MONTELUKAST SODIUM 10 MG TABLET PO SCH (09:27)
[2018-02-21] MEDS: ACETAZOLAMIDE 250 MG TABLET PO SCH ×2 (09:28→21:12)
[2018-02-21] MEDS: CEFEPIME 2 GM/D5W RTU 2 GM/50 ML RTUPB IV SCH ×2 (09:30→21:12)
[2018-02-21 16:16] LABS: PATH REVIEW PATHOLOGIST REVIEWED
--- NOTE | 2018-02-21 17:55 | PDOC PROGRESS REPORT ---
Subjective Progress Note for:: 02/21/18 Subjective:: Breathing is improving. No chest pain. No nausea, vomiting, or abdominal pain. No fever or chills since last clinical evaluation. Reason For Visit: PNEUMONIA COPD Physical Exam Vital Signs: Temp Pulse Resp BP Pulse Ox 98.3 F 67 15 95/61 L 96 02/21/18 03:10 02/21/18 07:00 02/21/18 03:10 02/21/18 03:10 02/21/18 03:10 Intake & Output 02/20/18 02/21/18 02/22/18 06:59 06:59 06:59 Intake Total 1258 837 Output Total 700 900 Balance 558 -63 Weight 50.6 kg 50.3 kg Physical Exam: General appearance: PRESENT: no acute distress, thin Head exam: PRESENT: atraumatic, normocephalic Eye exam: PRESENT: conjunctiva pink, EOMI, PERRLA. ABSENT: pallor, scleral icterus Ear exam: PRESENT: normal external ear exam Mouth exam: PRESENT: moist Respiratory exam: PRESENT: decreased breath sounds - at lung bases, prolonged expiratory phas Cardiovascular exam: PRESENT: RRR. ABSENT: diastolic murmur, rubs, systolic mu rmur Vascular exam: PRESENT: normal capillary refill, other - right anterior chest wall vascular catheter dressing okay. GI/Abdominal exam: PRESENT: normal bowel sounds, soft. ABSENT: distended, guar ding, mass, organomegaly, rebound, tenderness Extremities exam: ABSENT: pedal edema Musculoskeletal exam: PRESENT: deformity - related to multiple joints involvement with arthritis Neurological exam: PRESENT: alert, awake, oriented to person, oriented to place, oriented to time, oriented to situation, CN II-XII grossly intact. ABSENT: motor sensory deficit Psychiatric exam: PRESENT: appropriate affect, normal mood. ABSENT: homicidal ideation, suicidal ideation Skin exam: PRESENT: dry, warm Results Laboratory Results: 02/21/18 05:53 02/21/18 05:53 02/21/18 02/21/18 05:53 05:53 WBC 10.3 RBC 4.33 Hgb 11.6 L Hct 36.3 MCV 84 MCH 26.9 L MCHC 32.1 RDW 20.9 H Plt Count 408 Seg Neutrophils % Not Reportable Lymphocytes % Not Reportable Monocytes % Not Reportable Eosinophils % Not Reportable Basophils % Not Reportable Absolute Neutrophils Not Reportable Absolute Lymphocytes Not Reportable Absolute Monocytes Not Reportable Absolute Eosinophils Not Reportable Absolute Basophils Not Reportable Sodium 139.3 Potassium 4.8 Chloride 109 H Carbon Dioxide 21 L Anion Gap 9 BUN 25 H Creatinine 1.01 Est GFR ( Amer) > 60 Est GFR (Non-Af Amer) 53 L Glucose 102 Calcium 9.7 Total Bilirubin 0.2 AST 19 ALT 20 Alkaline Phosphatase 89 Total Protein 7.1 Albumin 3.8 Impressions: Chest X-Ray 02/16/18 15:02 IMPRESSION: COPD. Left lower lobe pneumonia. Head CT 02/16/18 15:02 IMPRESSION: NORMAL BRAIN CT WITHOUT CONTRAST. EVIDENCE OF ACUTE STROKE: NO. Assessment & Plan - Diagnosis (1) Lobar pneumonia, unspecified organism Is this a current diagnosis for this admission?: Yes (2) End stage chronic obstructive pulmonary disease Is this a current diagnosis for this admission?: Yes (3) Chronic respiratory failure with hypoxia and hypercapnia Is this a current diagnosis for this admission?: Yes (4) HTN (hypertension) Qualifiers: Hypertension type: essential hypertension Qualified Code(s): I10 - Essential (primary) hypertension Is this a current diagnosis for this admission?: Yes (5) HLD (hyperlipidemia) Qualifiers: Hyperlipidemia type: pure hypercholesterolemia Qualified Code(s): E78.00 - Pure hypercholesterolemia, unspecified Is this a current diagnosis for this admission?: Yes (6) Osteoarthritis Qualifiers: Osteoarthritis location: unspecified site Is this a current diagnosis for this admission?: Yes (7) Humerus fracture Qualifiers: Encounter type: subsequent encounter Humerus Location: proximal Fracture type: closed Fracture morphology: unspecified fracture morphology Laterality: right Is this a current diagnosis for this admission?: Yes (8) Chronic pain syndrome Is this a current diagnosis for this admission?: Yes (9) Long-term current use of opiate analgesic Is this a current diagnosis for this admission?: Yes (10) Mixed anxiety and depressive disorder Is this a current diagnosis for this admission?: Yes (11) GERD (gastroesophageal reflux disease) Qualifiers: Esophagitis presence: without esophagitis Qualified Code(s): K21.9 - Gastro-esophageal reflux disease without esophagitis Is this a current diagnosis for this admission?: Yes (12) Protein-calorie undernutrition Qualifiers: Protein-calorie malnutrition severity: moderate Qualified Code(s): E44.0 - Moderate protein-calorie malnutrition Is this a current diagnosis for this admission?: Yes (13) Pneumonia due to Pseudomonas aeruginosa Is this a current diagnosis for this admission?: Yes - Time Time Spent with patient: 25-34 minutes Medications reviewed and adjusted accordingly: Yes Anticipated discharge: Home with Homehealth Within: Other - Inpatient Certification Based on my medical assessment, after consideration of the patient's comorbidities, presenting symptoms, or acuity I expect that the services needed warrant INPATIENT care.: Yes I certify that my determination is in accordance with my understanding of Medicare's requirements for reasonable and necessary INPATIENT services [42 CFR 412.3e].: Yes Medical Necessity: Need Close Monitoring Due to Risk of Patient Decompensation, Need For IV Fluids, Need For Continuous Telemetry Monitoring, Need for IV Antibiotics, Risk of Complication if Not Cared For in Hospital Post Hospital Care: D/C Dermatology Procedural Physician Documentation - Plan Summary Plan Summary: Continue IV Cefepime coverage. Maintain on all other current medication management. Obtain PT/OT evaluation.
[2018-02-21] MEDS: ALPRAZOLAM 0.5 MG TABLET PO PRN (22:31)
[2018-02-21] MEDS: ZOLPIDEM TARTRATE 5 MG TABLET PO PRN (22:31)
[2018-02-22] MEDS: OXYCODONE-ACETAMINOPHEN 5-325 MG TABLET PO PRN ×2 (05:27→14:22)
[2018-02-22] MEDS: ROPINIROLE HCL 1 MG TABLET PO SCH ×3 (05:27→22:00)
[2018-02-22] MEDS: LANSOPRAZOLE 30 MG TAB.RAP.DR PO SCH (05:27)
[2018-02-22] MEDS: CITALOPRAM HYDROBROMIDE 20 MG TABLET PO SCH (11:04)
[2018-02-22] MEDS: MULTIVITAMINS W-IRON TABLET, CHEWABLE PO SCH (11:04)
[2018-02-22] MEDS: FLUTICASONE/UMECLIDIN/VILANTER 100-62.5-25 MCG/DOSE IH SCH (11:05)
[2018-02-22] MEDS: MONTELUKAST SODIUM 10 MG TABLET PO SCH (11:05)
[2018-02-22] MEDS: ACETAZOLAMIDE 250 MG TABLET PO SCH ×2 (11:05→22:00)
[2018-02-22] MEDS: CEFEPIME 2 GM/D5W RTU 2 GM/50 ML RTUPB IV SCH ×2 (11:06→22:00)
[2018-02-22] MEDS: ENOXAPARIN SODIUM INJ 30 MG/0.3 ML DISP.SYRIN SUBCUT SCH (11:09)
--- NOTE | 2018-02-22 18:21 | PDOC PROGRESS REPORT ---
Subjective Progress Note for:: 02/22/18 Subjective:: Patient reported improvement in her breathing and less coughing. Participated in rehabilitation session with PT/OT. No fever or chills. No chest pain, nausea, vomiting or abdominal pain. Reason For Visit: PNEUMONIA COPD Physical Exam Vital Signs: Temp Pulse Resp BP Pulse Ox 98.0 F 63 15 113/54 L 98 02/22/18 07:18 02/22/18 07:18 02/22/18 07:18 02/22/18 07:18 02/22/18 07:18 Intake & Output 02/21/18 02/22/18 02/23/18 06:59 06:59 06:59 Intake Total 837 1255 Output Total 900 900 Balance -63 355 Weight 50.3 kg 50.4 kg Physical Exam: General appearance: PRESENT: no acute distress, thin Head exam: PRESENT: atraumatic, normocephalic Eye exam: PRESENT: conjunctiva pink, EOMI, PERRLA. ABSENT: pallor, scleral icterus Ear exam: PRESENT: normal external ear exam Mouth exam: PRESENT: moist Respiratory exam: PRESENT: decreased breath sounds - at lung bases. Cardiovascular exam: PRESENT: RRR. ABSENT: diastolic murmur, rubs, systolic murmur Vascular exam: PRESENT: normal capillary refill, other - right anterior chest wall port-a-cath in use. GI/Abdominal exam: PRESENT: normal bowel sounds, soft. ABSENT: distended, guarding, mass, organomegaly, rebound, tenderness Extremities exam: ABSENT: pedal edema Musculoskeletal exam: PRESENT: deformity - related to multiple joints involvement with arthritis Neurological exam: PRESENT: alert, awake, oriented to person, oriented to place, oriented to time, oriented to situation, CN II-XII grossly intact. ABSENT: motor sensory deficit Psychiatric exam: PRESENT: appropriate affect, normal mood. ABSENT: homicidal ideation, suicidal ideation Skin exam: PRESENT: dry, warm Results Laboratory Results: 02/21/18 05:53 02/21/18 05:53 Impressions: Chest X-Ray 02/16/18 15:02 IMPRESSION: COPD. Left lower lobe pneumonia. Head CT 02/16/18 15:02 IMPRESSION: NORMAL BRAIN CT WITHOUT CONTRAST. EVIDENCE OF ACUTE STROKE: NO. Assessment & Plan - Diagnosis (1) Pneumonia due to Pseudomonas aeruginosa Is this a current diagnosis for this admission?: Yes (2) End stage chronic obstructive pulmonary disease Is this a current diagnosis for this admission?: Yes (3) Chronic respiratory failure with hypoxia and hypercapnia Is this a current diagnosis for this admission?: Yes (4) HTN (hypertension) Qualifiers: Hypertension type: essential hypertension Qualified Code(s): I10 - Essential (primary) hypertension Is this a current diagnosis for this admission?: Yes (5) HLD (hyperlipidemia) Qualifiers: Hyperlipidemia type: pure hypercholesterolemia Qualified Code(s): E78.00 - Pure hypercholesterolemia, unspecified Is this a current diagnosis for this admission?: Yes (6) Osteoarthritis Qualifiers: Osteoarthritis location: unspecified site Is this a current diagnosis for this admission?: Yes (7) Humerus fracture Qualifiers: Encounter type: subsequent encounter Humerus Location: proximal Fracture type: closed Fracture morphology: unspecified fracture morphology Laterality: right Is this a current diagnosis for this admission?: Yes (8) Chronic pain syndrome Is this a current diagnosis for this admission?: Yes (9) Long-term current use of opiate analgesic Is this a current diagnosis for this admission?: Yes (10) Mixed anxiety and depressive disorder Is this a current diagnosis for this admission?: Yes (11) GERD (gastroesophageal reflux disease) Qualifiers: Esophagitis presence: without esophagitis Qualified Code(s): K21.9 - Gastro-esophageal reflux disease without esophagitis Is this a current diagnosis for this admission?: Yes (12) Protein-calorie undernutrition Qualifiers: Protein-calorie malnutrition severity: moderate Qualified Code(s): E44.0 - Moderate protein-calorie malnutrition Is this a current diagnosis for this admission?: Yes - Time Time Spent with patient: 25-34 minutes Medications reviewed and adjusted accordingly: Yes Anticipated discharge: Home with Homehealth Within: within 48 hours - Inpatient Certification Based on my medical assessment, after consideration of the patient's comorbidities, presenting symptoms, or acuity I expect that the services needed warrant INPATIENT care.: Yes I certify that my determination is in accordance with my understanding of Medicare's requirements for reasonable and necessary INPATIENT services [42 CFR 412.3e].: Yes Medical Necessity: Need Close Monitoring Due to Risk of Patient Decompensation, Need For IV Fluids, Need For Continuous Telemetry Monitoring, Need for IV Antibiotics, Risk of Complication if Not Cared For in Hospital Post Hospital Care: D/C Waiter Waitress Documentation - Plan Summary Plan Summary: D/C IV Cefepime in am. Start on oral Ciprofloxacin 500 mg po q12 hours based on culture sensitivity report. Maintain on al other current medication and rehabilitation management.
[2018-02-22] MEDS: ALPRAZOLAM 0.5 MG TABLET PO PRN (22:00)
[2018-02-22] MEDS: ZOLPIDEM TARTRATE 5 MG TABLET PO PRN (22:00)
[2018-02-23] MEDS: ROPINIROLE HCL 1 MG TABLET PO SCH ×3 (05:01→21:33)
[2018-02-23] MEDS: LANSOPRAZOLE 30 MG TAB.RAP.DR PO SCH (05:01)
[2018-02-23] MEDS: OXYCODONE-ACETAMINOPHEN 5-325 MG TABLET PO PRN ×3 (06:17→22:28)
[2018-02-23] MEDS: MONTELUKAST SODIUM 10 MG TABLET PO SCH (09:15)
[2018-02-23] MEDS: CITALOPRAM HYDROBROMIDE 20 MG TABLET PO SCH (09:15)
[2018-02-23] MEDS: MULTIVITAMINS W-IRON TABLET, CHEWABLE PO SCH (09:15)
[2018-02-23] MEDS: FLUTICASONE/UMECLIDIN/VILANTER 100-62.5-25 MCG/DOSE IH SCH (09:16)
[2018-02-23] MEDS: ACETAZOLAMIDE 250 MG TABLET PO SCH ×2 (09:16→21:33)
[2018-02-23] MEDS: ENOXAPARIN SODIUM INJ 30 MG/0.3 ML DISP.SYRIN SUBCUT SCH (09:16)
[2018-02-23] MEDS: CIPROFLOXACIN HCL 500 MG TABLET PO SCH ×2 (10:59→21:33)
--- NOTE | 2018-02-23 18:05 | PDOC PROGRESS REPORT ---
Subjective Progress Note for:: 02/23/18 Subjective:: No fever or chills. Coughing is better with less sputum production. No chest pain. No abdominal pain, nausea or vomiting. Oral intake remain a challenge. Reason For Visit: PNEUMONIA COPD Physical Exam Vital Signs: Temp Pulse Resp BP Pulse Ox 98.3 F 67 18 109/66 94 02/23/18 07:37 02/23/18 07:37 02/23/18 07:37 02/23/18 07:37 02/23/18 07:37 Intake & Output 02/22/18 02/23/18 02/24/18 06:59 06:59 06:59 Intake Total 1255 745 Output Total 900 1600 Balance 355 -855 Weight 50.4 kg 50.5 kg Physical Exam: General appearance: PRESENT: no acute distress, thin Head exam: PRESENT: atraumatic, normocephalic Eye exam: PRESENT: conjunctiva pink, EOMI, PERRLA. ABSENT: pallor, scleral icterus Ear exam: PRESENT: normal external ear exam Mouth exam: PRESENT: moist Respiratory exam: PRESENT: decreased breath sounds - at lung bases. Cardiovascular exam: PRESENT: RRR. ABSENT: diastolic murmur, rubs, systolic m urmur GI/Abdominal exam: PRESENT: normal bowel sounds, soft. ABSENT: distended, guarding, mass, organomegaly, rebound, tenderness Extremities exam: ABSENT: pedal edema Musculoskeletal exam: PRESENT: deformity - related to multiple joints involvement with arthritis, left impacted humeral fracture in sling support Neurological exam: PRESENT: alert, awake, oriented to person, oriented to place, oriented to time, oriented to situation, CN II-XII grossly intact. ABSENT: motor sensory deficit Psychiatric exam: PRESENT: appropriate affect, normal mood. ABSENT: homicidal ideation, suicidal ideation Skin exam: PRESENT: dry, warm Results Laboratory Results: 02/21/18 05:53 02/21/18 05:53 Impressions: Chest X-Ray 02/16/18 15:02 IMPRESSION: COPD. Left lower lobe pneumonia. Head CT 02/16/18 15:02 IMPRESSION: NORMAL BRAIN CT WITHOUT CONTRAST. EVIDENCE OF ACUTE STROKE: NO. Assessment & Plan - Diagnosis (1) Pneumonia due to Pseudomonas aeruginosa Is this a current diagnosis for this admission?: Yes (2) End stage chronic obstructive pulmonary disease Is this a current diagnosis for this admission?: Yes (3) Chronic respiratory failure with hypoxia and hypercapnia Is this a current diagnosis for this admission?: Yes (4) HTN (hypertension) Qualifiers: Hypertension type: essential hypertension Qualified Code(s): I10 - Essential (primary) hypertension Is this a current diagnosis for this admission?: Yes (5) HLD (hyperlipidemia) Qualifiers: Hyperlipidemia type: pure hypercholesterolemia Qualified Code(s): E78.00 - Pure hypercholesterolemia, unspecified Is this a current diagnosis for this admission?: Yes (6) Osteoarthritis Qualifiers: Osteoarthritis location: unspecified site Is this a current diagnosis for this admission?: Yes (7) Humerus fracture Qualifiers: Encounter type: subsequent encounter Humerus Location: proximal Fracture type: closed Fracture morphology: unspecified fracture morphology Laterality: right Is this a current diagnosis for this admission?: Yes (8) Chronic pain syndrome Is this a current diagnosis for this admission?: Yes (9) Long-term current use of opiate analgesic Is this a current diagnosis for this admission?: Yes (10) Mixed anxiety and depressive disorder Is this a current diagnosis for this admission?: Yes (11) GERD (gastroesophageal reflux disease) Qualifiers: Esophagitis presence: without esophagitis Qualified Code(s): K21.9 - Gastr o-esophageal reflux disease without esophagitis Is this a current diagnosis for this admission?: Yes (12) Protein-calorie undernutrition Qualifiers: Protein-calorie malnutrition severity: moderate Qualified Code(s): E44.0 - Moderate protein-calorie malnutrition Is this a current diagnosis for this admission?: Yes - Time Time Spent with patient: 25-34 minutes Medications reviewed and adjusted accordingly: Yes Anticipated discharge: Home with Homehealth Within: Other - Inpatient Certification Based on my medical assessment, after consideration of the patient's comorbidities, presenting symptoms, or acuity I expect that the services needed warrant INPATIENT care.: Yes I certify that my determination is in accordance with my understanding of Medicare's requirements for reasonable and necessary INPATIENT services [42 CFR 412.3e].: Yes Medical Necessity: Need Close Monitoring Due to Risk of Patient Decompensation, Need For IV Fluids, Need For Continuous Telemetry Monitoring, Need for Nebulizer Therapy and Monitoring of Response, Need for IV Antibiotics, Risk of Complication if Not Cared For in Hospital, Risk of Diagnosis Which Will Require Inpatient Eval/Care/Monitoring Post Hospital Care: D/C Marketing Segment Manager Documentation - Plan Summary Plan Summary: D/C Cefepime. Start on Ciprofloxacin 500 mg po bid. Maintain on all other current medication management.
[2018-02-23] MEDS: ZOLPIDEM TARTRATE 5 MG TABLET PO PRN (22:27)
[2018-02-23] MEDS: ALPRAZOLAM 0.5 MG TABLET PO PRN (22:27)
[2018-02-24] MEDS: ROPINIROLE HCL 1 MG TABLET PO SCH (05:06)
[2018-02-24] MEDS: LANSOPRAZOLE 30 MG TAB.RAP.DR PO SCH (05:06)
[2018-02-24] MEDS: OXYCODONE-ACETAMINOPHEN 5-325 MG TABLET PO PRN (08:06)
[2018-02-24] MEDS: MONTELUKAST SODIUM 10 MG TABLET PO SCH (10:15)
[2018-02-24] MEDS: MULTIVITAMINS W-IRON TABLET, CHEWABLE PO SCH (10:15)
[2018-02-24] MEDS: CIPROFLOXACIN HCL 500 MG TABLET PO SCH (10:15)
[2018-02-24] MEDS: FLUTICASONE/UMECLIDIN/VILANTER 100-62.5-25 MCG/DOSE IH SCH (10:16)
[2018-02-24] MEDS: ACETAZOLAMIDE 250 MG TABLET PO SCH (10:16)
[2018-02-24] MEDS: ENOXAPARIN SODIUM INJ 30 MG/0.3 ML DISP.SYRIN SUBCUT SCH (10:16)
[2018-02-24] MEDS: CITALOPRAM HYDROBROMIDE 20 MG TABLET PO SCH (10:16)
[2018-02-24 11:07] VITALS: BP 100/48
--- NOTE | 2018-02-24 16:10 | PDOC DISCHARGE SUMMARY ---
General - Admit/Disc Date/PCP Admission Date/Primary Care Provider: 02/16/18 18:48 SARITA CASTILLO Discharge Date: 02/24/18 - Discharge Diagnosis (1) Pneumonia due to Pseudomonas aeruginosa Is this a current diagnosis for this admission?: Yes (2) End stage chronic obstructive pulmonary disease Is this a current diagnosis for this admission?: Yes (3) Chronic respiratory failure with hypoxia and hypercapnia Is this a current diagnosis for this admission?: Yes (4) HTN (hypertension) Is this a current diagnosis for this admission?: Yes (5) HLD (hyperlipidemia) Is this a current diagnosis for this admission?: Yes (6) Osteoarthritis Is this a current diagnosis for this admission?: Yes (7) Humerus fracture Is this a current diagnosis for this admission?: Yes (8) Chronic pain syndrome Is this a current diagnosis for this admission?: Yes (9) Long-term current use of opiate analgesic Is this a current diagnosis for this admission?: Yes (10) Mixed anxiety and depressive disorder Is this a current diagnosis for this admission?: Yes (11) GERD (gastroesophageal reflux disease) Is this a current diagnosis for this admission?: Yes (12) Protein-calorie undernutrition Is this a current diagnosis for this admission?: Yes - Additional Information Discharge Diet: Regular Discharge Activity: Activity As Tolerated, Slowly Increase Activity Prescriptions: Ciprofloxacin HCl [Cipro 500 mg Tablet] 500 mg PO Q12H #14 tablet Home Medications: Acetazolamide [Diamox 250 mg Tab] 250 mg PO Q12 07/08/17 Buspirone HCl [Buspar 15 mg Tablet] 7.5 mg PO Q8 MDD LAST FILLED 11-21-17 07/08/17 Citalopram Hydrobromide [Celexa 40 mg Tablet] 40 mg PO DAILY 07/08/17 Montelukast Sodium [Singulair 10 mg Tablet] 10 mg PO DAILY 07/08/17 Ropinirole HCl [Requip] 1 mg PO Q8 MDD LAST FILLED 10-17-17 07/08/17 Oxycodone HCl/Acetaminophen [Percocet 7.5-325 mg Tablet] 1 tab PO Q8HP PRN #60 tablet 01/10/18 Zolpidem Tartrate [Ambien 5 mg Tablet] 5 mg PO HSP PRN #30 tablet 01/10/18 Alprazolam [Xanax 0.5 mg Tablet] 0.5 mg PO Q8HP PRN 02/16/18 Fluticasone/Umeclidin/Vilanter [Trelegy 100-62.5-25 Mcg Ellipta 14 Dose/Dpi] 1 each IH DAILY MDD LAST FILLED 10-17-17 02/16/18 Multivit-Min/Iron/Folic/Lutein [Centrum Silver Women Tablet] 1 each PO DAILY 0 02/16/18 Ciprofloxacin HCl [Cipro 500 mg Tablet] 500 mg PO Q12H #14 tablet 02/23/18 History of Present Illness Patient complains of: Confussion and difficulty with breathing History of Present Illness: SUSAN BINGHAM is a 77 year old female patient known to my practice brought to the ED by family with reported worsening confusion and difficulty with breathing over last few days. She reported associated coughing and development of low oxygen level whenever she is off her supplemental oxygen via nasal cannula at 3L/dl. She denied nasal or sinus congestion. She denied associated fever or chills. No chest pain, palpitation, nausea or vomiting. There is associated poor appetite and p.o intake. She denied any diarrhea or c onstipation. She reported recent fall at home with development of right impacted proximal humerus fracture and ecchymosis in the same area. Her initial ED evaluation revealed leukocytosis, left lower lobe consolidation, and increase confussional state. Her morbidities include oxygen dependent end state COPD, Hypertension, Hyperlipidemia, chronic pulmonary embolism, Asthma, Cardiovascular Accident, Seizures disorder, Depression, and osteoarthritis. She was advised hospitalization for further evaluation and management Hospital Course Hospital Course: Patient was managed with IV Cefepime, Levofloxacin and Vancomycin for left ;lower lobe pneumonia due to concern for possible HAP. Her Levofloxacin and Vancomycin were eventually discontinued Vancomycin and Levofloxacin with growth of Pseudomonas Aeruginosa. Her presenting symptoms did improved. Her associated leukocytosis resolved. She remain afebrile for the past 48 hours with discontinuation of IV Cefepime. She is currently on oral Ciprofloxacin and she will be discharge home on same. Physical Exam Vital Signs: Temp Pulse Resp BP Pulse Ox 97.4 F 65 16 121/57 L 99 02/24/18 03:35 02/24/18 07:00 02/24/18 03:35 02/24/18 03:35 02/24/18 03:35 Intake & Output 0102/24/18 02/25/18 06:59 06:59 06:59 Intake Total 745 791 Output Total 1600 550 Balance -855 241 Weight 50.5 kg 50.7 kg Physical Exam: General appearance: PRESENT: no acute distress, thin Head exam: PRESENT: atraumatic, normocephalic Eye exam: PRESENT: conjunctiva pink, EOMI, PERRLA. ABSENT: pallor, scleral icterus Ear exam: PRESENT: normal external ear exam Mouth exam: PRESENT: moist Respiratory exam: PRESENT: decreased breath sounds - at lung bases. Cardiovascular exam: PRESENT: RRR. ABSENT: diastolic murmur, rubs, systolic murmur GI/Abdominal exam: PRESENT: normal bowel sounds, soft. ABSENT: distended, guarding, mass, organomegaly, rebound, tenderness Extremities exam: ABSENT: pedal edema Musculoskeletal exam: PRESENT: deformity - related to multiple joints involvement with arthritis, left impacted humeral fracture in sling support Neurological exam: PRESENT: alert, awake, oriented to person, oriented to place, oriented to time, oriented to situation, CN II-XII grossly intact. ABSENT: motor sensory deficit Psychiatric exam: PRESENT: appropriate affect, normal mood. ABSENT: homicidal ideation, suicidal ideation Skin exam: PRESENT: dry, warm Results Laboratory Results: 02/21/18 05:53 02/21/18 05:53 Impressions: Chest X-Ray 02/16/18 15:02 IMPRESSION: COPD. Left lower lobe pneumonia. Head CT 02/16/18 15:02 IMPRESSION: NORMAL BRAIN CT WITHOUT CONTRAST. EVIDENCE OF ACUTE STROKE: NO. Qualifiers - * PATIENT BEING DISCHARGED WITH ANY OF THE FOLLOWING DIAGNOSIS: No Plan Discharge Plan: D/C Home today. Follow up in the office as instructed upon discharge.
== END 2018-02-24 12:30 | disposition home health service (06) | DRG 178 ==
LOC: ER 14:38 → EH 18:48 → 3S 02-17 02:56
PROVIDERS: ADMIT Internal Medicine Geriatric Medicine; ATTEND Internal Medicine Geriatric Medicine
DX: J15.1 Pneumonia due to Pseudomonas (principal); J96.12 Chronic respiratory failure with hypercapnia; J96.11 Chronic respiratory failure with hypoxia; E44.0 Moderate protein-calorie malnutrition; J44.9 Chronic obstructive pulmonary disease, unspecified; I10 Essential (primary) hypertension; E78.00 Pure hypercholesterolemia, unspecified; K21.9 Gastro-esophageal reflux disease without esophagitis; S42.201D Unspecified fracture of upper end of right humerus, subsequent encounter for fracture with routine healing; F41.8 Other specified anxiety disorders; M19.90 Unspecified osteoarthritis, unspecified site; G89.4 Chronic pain syndrome; Z87.891 Personal history of nicotine dependence; Z79.891 Long term (current) use of opiate analgesic; Z68.21 Body mass index [BMI] 21.0-21.9, adult
CPT/HCPCS: 36415; 70450; 71045; 71046; 72125; 80053; 80202; 81001; 82803; 83605; 83880; 84484; 85025; 87040; 87070; 87077; 87086; 87186; 87205; 93005; 93010; 96365; 99291; J0692; J0696; J1650; J1956; J3370; J3490

== ENCOUNTER 2018-03-08 16:58 | Inpatient (IN) | payer MEDICARE, OTHER ==
--- NOTE | 2018-03-08 18:07 | RADIOLOGY REPORT (SQ) ---
EXAM DESCRIPTION: CHEST SINGLE VIEW COMPLETED DATE/TIME: 03/08/2018 5:55 pm REASON FOR STUDY: bed 8 db COMPARISON: 02/16/2018 EXAM PARAMETERS: NUMBER OF VIEWS: One view. TECHNIQUE: Single frontal radiographic view of the chest acquired. RADIATION DOSE: NA LIMITATIONS: None. FINDINGS: LUNGS AND PLEURA: There is persistent hyperexpansion and bibasilar airspace disease left g reater than right. Small effusions cannot be excluded. MEDIASTINUM AND HILAR STRUCTURES: No masses. Contour normal. HEART AND VASCULAR STRUCTURES: Heart normal in size. Normal vasculature. BONES: No acute findings. HARDWARE: [id number] remains in place. Battery pack and leads are unchanged. OTHER: No other significant finding. IMPRESSION: COPD with persistent bibasilar airspace disease left greater than right. TECHNICAL DOCUMENTATION: JOB ID: [id number] [employer]- All Rights Reserved Reading location - IP/workstation name: [email or web address]
--- NOTE | 2018-03-08 18:30 | ER Document Report ---
ED Respiratory Problem - General Chief Complaint: Breathing Difficulty Stated Complaint: SHORT OF BREATH Time Seen by Provider: 03/08/18 18:21 Notes: This is a 77-year-old female patient to the emergency department for evaluation of shortness of breath. Patient was recently hospitalized for pneumonia. Was on multiple medications. Has severe COPD. Has been home and doing well but over the last several days began to have increased shortness of breath and tachycardia. Today she was quite anxious. She began having worsening shortness of breath. Patient has had a pulmonary embolism in the past. Is supposed to be on blood thinners but is not. TRAVEL OUTSIDE OF THE [place] IN LAST 30 DAYS: No - HPI Patient complains to provider of: Chest pain, COPD, Hurts to breath, Short of breath Onset: Yesterday Duration: Continuous, Worse/persistent Severity: Moderate Context: Hx COPD Short of Breath: Severe Cough: Nonproductive Sputum amount: None Associated symptoms: Chest pain/discomfort, Cough, Short of breath - Related Data Allergies/Adverse Reactions: erythromycin base [Erythromycin Base] Allergy (Unknown, Verified 02/14/18 15:31) Past Medical History - General Information source: Patient - Social History Smoking Status: Former Smoker Frequency of alcohol use: None Drug Abuse: None Lives with: Family Family History: CAD - This is in not immediate family members., DM, Hyperlipidemia, Hypertension Patient has suicidal ideation: No Patient has homicidal ideation: No - Past Medical History Cardiac Medical History: Reports: Hx Hypercholesterolemia, Hx Hypertension, Hx Pulmonary Embolism Denies: Hx Coronary Artery Disease, Hx Heart Attack Pulmonary Medical History: Reports: Hx Asthma, Hx Bronchitis, Hx COPD, Hx Pneumonia, Hx Respiratory Failure, Hx Sleep Apnea Neurological Medical History: Denies: Hx Cerebrovascular Accident, Hx Seizures Endocrine Medical History: Denies: Hx Graves' Disease Renal/ Medical History: Reports: Hx Kidney Stones - 20 year ago. Denies: Hx Ovarian Cysts, Hx Peritoneal Dialysis, Hx Pelvic Inflammatory Disease Malignancy Medical History: GI Medical History: Reports: Hx Diverticulitis, Hx Gastroesophageal Reflux Disease, Hx Ulcer. Denies: Hx Irritable Bowel, Hx Liver Failure, Hx Pancreatitis Musculoskeletal Medical History: Denies Hx Arthritis, Denies Hx Multiple Sclerosis, Denies Hx Muscular Dystrophy Skin Medical History: Reports Hx MRSA Psychiatric Medical History: Reports: Hx Depression Denies: Hx Schizophrenia Traumatic Medical History: Denies: Hx Fractures, Hx Gunshot Wound Infectious Medical History: Denies: Hx HIV Past Surgical History: Reports: Hx Bowel Surgery - Old colostomy from a tear intestines resectioned, Hx Cardiac Surgery - pacemaker, Hx Colostomy - with reversal, 6 years ago, Hx Hysterectomy, Hx Orthopedic Surgery - left hip replacement 11/04/2014, Hx Pacemaker - Immunizations Immunizations up to date: Yes Hx Diphtheria, Pertussis, Tetanus Vaccination: No Hx Pneumococcal Vaccination: 06/04/11 Review of Systems - Review of Systems Notes: Constitutional: denies: Chills, Diaphoresis, +Fever, +Malaise, +Weakness EENT: denies: Eye discharge, Blurred vision, Tearing, Double vision, Nose congestion, Nose discharge, Throat swelling, Mouth pain Cardiovascular: denies: Palpitations, Heart racing, Orthopnea, Dyspnea, +Chest pain Respiratory: denies: Cough, Hurts to breathe, +Wheezing, +Shortness of breath Gastrointestinal: denies: Abdominal pain, Diarrhea, Nausea, Vomiting, Black stools, bright red blood in stool Genitourinary: denies: Burning, Dysuria, Discharge, Frequency, Flank pain, Hematuria Musculoskeletal: denies: Joint pain, Joint swelling, Muscle pain, Muscle stiffness, back pain Hematologic/Lymphatic: denies: Anemia, Easy bleeding, Easy bruising, Blood clots Neurological/Psychological: denies: Confusion, Dementia, Depression, Loss of consciousness Skin: No lesions, no masses, no skin breakdown, no abscesses Physical Exam - Vital signs Vitals: Resp 21 H 03/08/18 17:15 Interpretation: Tachycardic, Tachypneic - General General appearance: Appears well, Alert - HEENT Head: Normocephalic, Atraumatic Eyes: Normal Pupils: PERRL - Respiratory Respiratory status: Respiratory distress, Tachypnea Chest status: Nontender Breath sounds: Wheezing Chest palpation: Normal - Cardiovascular Rhythm: Regular, Tachycardia Heart sounds: Normal auscultation Murmur: No - Abdominal Inspection: Normal Distension: No distension Bowel sounds: Normal Tenderness: Nontender Organomegaly: No organomegaly - Back Back: Normal, Nontender - Extremities General upper extremity: Normal inspection, Nontender, Normal color, Normal ROM, Normal temperature General lower extremity: Normal inspection, Nontender, Normal color, Normal ROM, Normal temperature, Normal weight bearing. No: Gennaro's sign - Neurological Neuro grossly intact: Yes Cognition: Normal Orientation: AAOx4 [place] Coma Scale Eye Opening: Spontaneous [place] Coma Scale Verbal: Oriented [place] Coma Scale Motor: Obeys Commands [place] Coma Scale Total: 15 Speech: Normal Motor strength normal: LUE, RUE, LLE, RLE Sensory: Normal - Psychological Associated symptoms: Normal affect, Normal mood - Skin Skin Temperature: Warm Skin Moisture: Dry Skin Color: Normal Course - Re-evaluation Re-evalutation: 03/08/18 19:47 Patient is having significant work of breathing, tachycardia. Had a recent hospitalization. Prior history of pulmonary embolism. Ordering CT scan. Consult with patient's primary care doctor Dr. Dinh. Wants her placed back on vancomycin cefepime and Levaquin. At this time patient in stable condition but will keep a very close eye on her. Waiting on CT scan results for the chest. Will place in the IMCU at this time. 03/09/18 02:47 Laboratory 03/08/18 03/08/18 03/08/18 18:10 18:10 18:10 WBC 24.3 H RBC 4.40 Hgb 12.2 Hct 37.7 MCV 86 MCH 27.7 MCHC 32.3 RDW 21.5 H Plt Count 424 Total Counted 100 Seg Neutrophils % Not Reportable Seg Neuts % (Manual) 82 H Lymphocytes % Not Reportable Lymphocytes % (Manual) 10 L Monocytes % Not Reportable Monocytes % (Manual) 8 Eosinophils % Not Reportable Eosinophils % (Manual) 0 Basophils % Not Reportable Basophils % (Manual) 0 Absolute Neutrophils Not Reportable Abs Neuts (Manual) 19.9 H Absolute Lymphocytes Not Reportable Abs Lymphs (Manual) 2.4 Absolute Monocytes Not Reportable Abs Monocytes (Manual) 1.9 H Absolute Eosinophils Not Reportable Absolute Eos (Manual) 0.0 Absolute Basophils Not Reportable Abs Basophils (Manual) 0.0 Toxic Vacuolation PRESENT Large Platelets PRESENT Platelet Comment ADEQUATE Poikilocytosis SLIGHT Anisocytosis 3+ Target Cells SLIGHT PT INR APTT Sodium 139.3 Potassium 4.4 Chloride 107 Carbon Dioxide 22 Anion Gap 10 BUN 21 H Creatinine 0.98 Est GFR ( Amer) > 60 Est GFR (Non-Af Amer) 55 L Glucose 106 Lactic Acid Calcium 9.7 Total Bilirubin 0.4 Direct Bilirubin 0.3 Neonat Total Bilirubin Not Reportable Neonat Direct Bilirubin Not Reportable Neonat Indirect Bili Not Reportable AST 19 ALT 12 Alkaline Phosphatase 132 H Creatine Kinase < 20 L CK-MB (CK-2) 0.59 Troponin I < 0.012 Total Protein 7.8 Albumin 4.4 03/08/18 03/08/18 18:10 18:10 WBC RBC Hgb Hct MCV MCH MCHC RDW Plt Count Total Counted Seg Neutrophils % Seg Neuts % (Manual) Lymphocytes % Lymphocytes % (Manual) Monocytes % Monocytes % (Manual) Eosinophils % Eosinophils % (Manual) Basophils % Basophils % (Manual) Absolute Neutrophils Abs Neuts (Manual) Absolute Lymphocytes Abs Lymphs (Manual) Absolute Monocytes Abs Monocytes (Manual) Absolute Eosinophils Absolute Eos (Manual) Absolute Basophils Abs Basophils (Manual) Toxic Vacuolation Large Platelets Platelet Comment Poikilocytosis Anisocytosis Target Cells PT 14.0 INR 1.03 APTT 30.0 Sodium Potassium Chloride Carbon Dioxide Anion Gap BUN Creatinine Est GFR ( Amer) Est GFR (Non-Af Amer) Glucose Lactic Acid 1.1 Calcium Total Bilirubin Direct Bilirubin Neonat Total Bilirubin Neonat Direct Bilirubin Neonat Indirect Bili AST ALT Alkaline Phosphatase Creatine Kinase CK-MB (CK-2) Troponin I Total Protein Albumin Chest X-Ray 03/08/18 17:46 IMPRESSION: COPD with persistent bibasilar airspace disease left greater than right. Chest/Abdomen CTA 03/08/18 18:32 IMPRESSION: 1. No acute pulmonary embolism. 2. Diffuse emphysema with areas of scarring. 3. Atelectasis versus consolidation in the lung bases. 4. No pleural effusions or pneumothorax. - Vital Signs Vital signs: Temp Pulse Resp BP Pulse Ox 98.5 F 82 20 126/65 H 98 03/08/18 23:50 03/09/18 02:00 03/08/18 23:50 03/08/18 23:50 03/08/18 23:50 - Laboratory Result Diagrams: 03/08/18 18:10 03/08/18 18:10 Laboratory results interpreted by me: 03/08/18 03/08/18 18:10 18:10 WBC 24.3 H RDW 21.5 H Seg Neuts % (Manual) 82 H Lymphocytes % (Manual) 10 L Abs Neuts (Manual) 19.9 H Abs Monocytes (Manual) 1.9 H BUN 21 H Est GFR (Non-Af Amer) 55 L Alkaline Phosphatase 132 H Creatine Kinase < 20 L Critical Care Note - Critical Care Note Total time excluding time spent on procedures (mins): 60 Comments: Tachycardia, respiratory distress, consultation with primary care doctor, Discharge - Discharge Clinical Impression: COPD exacerbation Pneumonia Qualifiers: Pneumonia type: due to unspecified organism Laterality: bilateral Lung location: lower lobe of lung Qualified Code(s): J18.1 - Lobar pneumonia, unspecified organism Condition: Fair Disposition: ADMITTED INPATIENT Admitting Provider: Eliel dinh Unit Admitted: [facility]
[2018-03-08] MEDS ORDERED: NORMAL SALINE 500 ML IV ONE (18:32)
[2018-03-08] MEDS ORDERED: METHYLPREDNISOLONE INJ 125 MG/2 ML SDV IV ONE (18:32)
[2018-03-08] MEDS ORDERED: ALBUTEROL SULFATE 0.083% NEB 2.5 MG/3 ML AMPUL NEB ONE ×2 (18:32→20:45)
[2018-03-08 18:45] LABS: INTERNATIONAL RATION (INR) 1.03
[2018-03-08 18:46] LABS: HEMATOCRIT 37.7 % (36.0-47.0); HEMOGLOBIN 12.2 g/dL (12.0-15.5); MEAN CORPUSCULAR HEMOGLOBIN 27.7 pg (27.0-33.4); MEAN CORPUSCULAR HGB CONC 32.3 g/dL (32.0-36.0); MEAN CORPUSCULAR VOLUME 86 fl (80-97); PLATELET COUNT 424 10^3/uL (150-450); RED CELL DISTRIBUTION WIDTH 21.5 % (11.5-14.0); WHITE BLOOD COUNT 24.3 10^3/uL (4.0-10.5)
[2018-03-08 18:56] LABS: ALANINE AMINOTRANSFERASE 12 U/L (9-52); ALBUMIN 4.4 g/dL (3.5-5.0); ALKALINE PHOSPHATASE 132 U/L (38-126); ANION GAP 10 (5-19); ASPARTATE AMINO TRANSFERASE 19 U/L (14-36); BILIRUBIN,DIRECT 0.3 mg/dL (0.0-0.4); BILIRUBIN,TOTAL 0.4 mg/dL (0.2-1.3); BLOOD UREA NITROGEN 21 mg/dL (7-20); CALCIUM 9.7 mg/dL (8.4-10.2); CARBON DIOXIDE 22 mmol/L (22-30); CHLORIDE 107 mmol/L (98-107); CREATINE KINASE < 20 U/L (30-135); GLUCOSE 106 mg/dL (75-110); POTASSIUM 4.4 mmol/L (3.6-5.0); SODIUM 139.3 mmol/L (137-145); TOTAL PROTEIN 7.8 g/dL (6.3-8.2)
[2018-03-08 19:02] LABS: ABSOLUTE LYMPHOCYTES# (MANUAL) 2.4 10^3/uL (0.5-4.7); ABSOLUTE MONOCYTES # (MANUAL) 1.9 10^3/uL (0.1-1.4); ABSOLUTE NEUTROPHILS# (MANUAL) 19.9 10^3/uL (1.7-8.2); BASOPHILS % (MANUAL) 0 % (0-2); EOSINOPHILS % (MANUAL) 0 % (0-6); LYMPHOCYTES % (MANUAL) 10 % (13-45); MONOCYTES % (MANUAL) 8 % (3-13); SEGMENTED NEUTROPHILS % (MAN) 82 % (42-78); TOTAL CELLS COUNTED 100
[2018-03-08 19:04] LABS: ANISOCYTOSIS 3+; PLATELET COMMENT ADEQUATE; PLATELET LARGE PRESENT; POIKILOCYTOSIS SLIGHT; TARGET CELLS SLIGHT; TOXIC VACUOLATION PRESENT
[2018-03-08 19:07] LABS: CREATINE KINASE MB 0.59 ng/mL (<4.55)
[2018-03-08 19:11] LABS: TROPONIN I < 0.012 ng/mL
[2018-03-08] MEDS ORDERED: LEVOFLOXACIN 500 MG/D5W RTU 500 MG/100 ML RTUPB IV ONE (19:45)
[2018-03-08] MEDS ORDERED: VANCOMYCIN HCL INJ 1000 MG VIAL IV ONE (19:45)
[2018-03-08] MEDS ORDERED: CEFEPIME 1 GM/D5W RTU 1 GM/50 ML RTUPB IV ONE (19:46)
--- NOTE | 2018-03-08 21:21 | RADIOLOGY REPORT (SQ) ---
CT CHEST ANGIOGRAPHY WITHOUT THEN WITH IV CONTRAST HISTORY: Shortness of breath. COMPARISON: 07/17/2017 TECHNIQUE: CT angiogram of the chest with IV contrast. 3-D MIP images were obtained in coronal and sagittal reconstructions. This exam was performed according to our departmental dose-optimization program, which includes automated exposure control, adjustment of the mA and/or kV according to patient size and/or use of iterative reconstruction technique. FINDINGS: No acute pulmonary embolism is seen in the main or segmental branches. The thyroid gland is normal. There are small scattered mediastinal lymph nodes. No hilar adenopathy. The heart size is normal without pericardial effusion. There are diffuse emphysematous changes throughout both lung martínez with scattered areas of fibrosis along with atelectasis/consolidation in the posterior lung bases. No pleural effusions or pneumothorax. There is an old compression fracture of T11. The visualized upper abdomen demonstrates renal cysts. IMPRESSION: 1. No acute pulmonary embolism. 2. Diffuse emphysema with areas of scarring. 3. Atelectasis versus consolidation in the lung bases. 4. No pleural effusions or pneumothorax.
[2018-03-08 22:04] LABS: ARTERIAL BLOOD BASE EXCESS -4.7 mmol/L; ARTERIAL BLOOD FIO2 30%; ARTERIAL BLOOD H2CO3 0.98 mmol/L (1.05-1.35); ARTERIAL BLOOD HCO3 19.4 mmol/L (20-24); ARTERIAL BLOOD O2 SATURATION 77.7 % (94-98); ARTERIAL BLOOD PCO2 32.7 mmHg (35-45); ARTERIAL BLOOD PH 7.39 (7.35-7.45); ARTERIAL BLOOD PO2 41.9 mmHg (80-100); ARTERIAL BLOOD TOTAL CO2 20.4 mmol/L (21-25)
[2018-03-08] MEDS ORDERED: OXYCODONE-ACETAMINOPHEN 5-325 MG TABLET PO ONE (22:53)
[2018-03-08] MEDS ORDERED: ZOLPIDEM TARTRATE 5 MG TABLET PO SCH (23:00)
[2018-03-08] MEDS ORDERED: ZOLPIDEM TARTRATE 5 MG TABLET PO ONE (23:15)
[2018-03-09] MEDS ORDERED: VANCOMYCIN HCL INJ 1000 MG VIAL IV PRN (00:39)
[2018-03-09] MEDS ORDERED: PHARMACY COMMUNICATION ORDER MC PRN ×2 (00:43→00:44)
[2018-03-09] MEDS ORDERED: VANCOMYCIN HCL 750 MG in DEXTROSE 5%-WATER 250 ML IV ONE (01:00)
[2018-03-09] MEDS: NORMAL SALINE 1000 ML 1,000 ML IV PRN (01:23)
[2018-03-09] MEDS ORDERED: VANCOMYCIN HCL INJ 1000 MG VIAL ONE (01:35)
[2018-03-09] MEDS ORDERED: METHYLPREDNISOLONE INJ 40 MG/1 ML SDV IV SCH (02:00)
[2018-03-09 04:37] LABS: HEMATOCRIT 29.5 % (36.0-47.0); MEAN CORPUSCULAR HEMOGLOBIN 27.3 pg (27.0-33.4); MEAN CORPUSCULAR HGB CONC 31.6 g/dL (32.0-36.0); MEAN CORPUSCULAR VOLUME 86 fl (80-97); PLATELET COUNT 311 10^3/uL (150-450); RED BLOOD COUNT 3.41 10^6/uL (3.72-5.28); RED CELL DISTRIBUTION WIDTH 21.3 % (11.5-14.0); WHITE BLOOD COUNT 16.8 10^3/uL (4.0-10.5)
[2018-03-09 04:40] LABS: HEMOGLOBIN 9.3 g/dL (12.0-15.5)
[2018-03-09 04:53] LABS: ALANINE AMINOTRANSFERASE 14 U/L (9-52); ALBUMIN 2.9 g/dL (3.5-5.0); ALKALINE PHOSPHATASE 79 U/L (38-126); ANION GAP 10 (5-19); ASPARTATE AMINO TRANSFERASE 14 U/L (14-36); BILIRUBIN,DIRECT 0.2 mg/dL (0.0-0.4); BILIRUBIN,TOTAL 0.2 mg/dL (0.2-1.3); BLOOD UREA NITROGEN 16 mg/dL (7-20); CALCIUM 7.6 mg/dL (8.4-10.2); CARBON DIOXIDE 16 mmol/L (22-30); CHLORIDE 112 mmol/L (98-107); GLUCOSE 179 mg/dL (75-110); POTASSIUM 3.6 mmol/L (3.6-5.0); SODIUM 137.8 mmol/L (137-145); TOTAL PROTEIN 5.7 g/dL (6.3-8.2)
[2018-03-09 04:59] LABS: ABSOLUTE LYMPHOCYTES# (MANUAL) 0.2 10^3/uL (0.5-4.7); ABSOLUTE MONOCYTES # (MANUAL) 0.5 10^3/uL (0.1-1.4); ABSOLUTE NEUTROPHILS# (MANUAL) 16.1 10^3/uL (1.7-8.2); BASOPHILS % (MANUAL) 0 % (0-2); EOSINOPHILS % (MANUAL) 0 % (0-6); LYMPHOCYTES % (MANUAL) 1 % (13-45); MONOCYTES % (MANUAL) 3 % (3-13); SEGMENTED NEUTROPHILS % (MAN) 96 % (42-78); TOTAL CELLS COUNTED 100
[2018-03-09 05:00] LABS: ANISOCYTOSIS 3+; PLATELET COMMENT ADEQUATE; TARGET CELLS SLIGHT
[2018-03-09] MEDS: OXYCODONE-ACETAMINOPHEN 5-325 MG TABLET PO PRN ×2 (06:37→22:19)
--- NOTE | 2018-03-09 07:44 | EKG REPORT ---
SEVERITY:- ABNORMAL ECG - SINUS TACHYCARDIA PROBABLE LEFT ATRIAL ABNORMALITY LEFT AXIS DEVIATION = LAFB LEFT VENTRICULAR HYPERTROPHY : Confirmed by: Ramakrishna Gerber MD 09-Mar-2018 07:43:41
[2018-03-09] MEDS: CITALOPRAM HYDROBROMIDE 20 MG TABLET PO SCH (09:12)
[2018-03-09] MEDS: ROPINIROLE HCL 1 MG TABLET PO SCH ×3 (09:12→17:17)
[2018-03-09] MEDS: ACETAMINOPHEN 325 MG TABLET PO PRN ×2 (09:12→19:48)
[2018-03-09] MEDS: METHYLPREDNISOLONE INJ 125 MG/2 ML SDV IV SCH ×2 (09:13→17:17)
[2018-03-09] MEDS: MONTELUKAST SODIUM 10 MG TABLET PO SCH (09:14)
[2018-03-09] MEDS: ACETAZOLAMIDE 250 MG TABLET PO SCH ×2 (09:14→22:18)
[2018-03-09] MEDS: ALPRAZOLAM 0.5 MG TABLET PO PRN ×2 (09:22→22:18)
[2018-03-09] MEDS ORDERED: (PENDING PHARMACY ID) (Citalopram Hydrobromide [Celexa 40 Mg Tablet] 40 MG) PO SCH (10:00)
[2018-03-09] MEDS ORDERED: (PENDING PHARMACY ID) (Buspirone Hcl [Buspar 15 Mg Tablet] 7.5 MG) PO SCH (14:00)
--- NOTE | 2018-03-09 17:47 | PDOC H&P ---
History of Present Illness Admission Date/PCP: 03/08/18 19:53 SARITA CASTILLO Patient complains of: Worsening difficulty with breathing History of Present Illness: SUSAN BINGHAM is a 77 year old female patient known to my practice and recently discharged from this hospital follow admission for pneumonia and exacerbated COPD. Patient reported that over the last couple of days she became progressively short of breath more than her usual level due to end stage COPD with oxygen dependency. She reported worsening chest congestion with fever and productive coughing with sputum production. She reported compliance with her medication and home bronchodilators therapy. She denied any chest pain. She reported episodes of palpitation, worsening generalized weakness, poor appetite and oral intake. No nausea or vomiting. No abdominal pain, constipation or alessio rrhea. Her initial evaluation in the ED was remarkable for respiratory distress, tachypnea and tachycardia with concern for pulmonary embolism. Her CTA chest was negative for pulmonary embolism but suggested bilateral lower lobe atelectasis versus consolidation. Her morbidities include Hypertension, Hyperlipidemia, Pulmonary Embolism, COPD with chronic respiratory failure, Asthma, GERD, sleep apnea, and anxiety. She was advised hospitalization for further evaluation and management. Past Medical History Cardiac Medical History: Reports: Hyperlipidema, Hypertension, Pulmonary Embolism Denies: Coronary Artery Disease, Myocardial Infarction Pulmonary Medical History: Reports: Asthma, Bronchitis, Chronic Obstructive Pulm onary Disease (COPD), Pneumonia, Respiratory Failure, Sleep Apnea Neurological Medical History: Denies: Seizures Endocrine Medical History: Renal/ Medical History: Malignancy Medical History: GI Medical History: Reports: Diverticulitis, Gastroesophageal Reflux Disease Musculoskeltal Medical History: Denies: Arthritis Psychiatric Medical History: Reports: Depression Traumatic Medical History: Denies: Gunshot Wound Hematology: Denies: Anemia Infectious Medical History: Denies: HIV Past Surgical History Past Surgical History: Reports: Colostomy - with reversal, 6 years ago, Hysterectomy, Orthopedic Surgery - left hip replacement 11/04/2014, Pacemaker Social History Lives with: Family Smoking Status: Former Smoker Frequency of Alcohol Use: None Hx Recreational Drug Use: No Drugs: None Hx Prescription Drug Abuse: No Family History Family History: CAD - This is in not immediate family members., DM, Hyperlipidemia, Hypertension Parental Family History Reviewed: Yes Children Family History Reviewed: Yes Sibling(s) Family History Reviewed.: Yes Medication/Allergy Home Medications: Acetazolamide [Diamox 250 mg Tab] 250 mg PO Q12 03/08/18 Alprazolam [Xanax 0.5 mg Tablet] 0.5 mg PO Q8HP PRN 03/08/18 Buspirone HCl [Buspar 15 mg Tablet] 7.5 mg PO Q8 03/08/18 Citalopram Hydrobromide [Celexa 40 mg Tablet] 40 mg PO DAILY 03/08/18 Fluticasone/Umeclidin/Vilanter [Trelegy 100-62.5-25 Mcg Ellipta 14 Dose/Dpi] 1 puff IH DAILY 03/08/18 Ipratropium/Albuterol Sulfate [Combivent Respimat 4 gm Mdi] 1 puff IH Q4HP PRN 03/08/18 Montelukast Sodium [Singulair] 10 mg PO DAILY 03/08/18 Oxycodone HCl/Acetaminophen [Endocet 7.5-325 mg Tablet] 1 tab PO Q8HP PRN 03/08/18 Ropinirole HCl [Requip] 1 mg PO TID 03/08/18 Zolpidem Tartrate [Ambien 5 mg Tablet] 5 mg PO HSP PRN 03/08/18 Allergies/Adverse Reactions: erythromycin base [Erythromycin Base] Allergy (Unknown, Verified 02/14/18 15:31) Review of Systems Constitutional: PRESENT: fatigue, fever(s), weakness Eyes: PRESENT: visual disturbances Ears: ABSENT: as per HPI, hearing changes, other Nose, Mouth, and Throat: ABSENT: as per HPI, headache(s), mouth pain, sore throat, vertigo, other Cardiovascular: PRESENT: dyspnea on exertion, palpitations. ABSENT: as per HPI, chest pain, edema, orthropnea, other Respiratory: PRESENT: cough, dyspnea, sputum. ABSENT: as per HPI, hemoptysis, other Gastrointestinal: ABSENT: abdominal pain, constipation, diarrhea, hematemesis, hematochezia, nausea, vomiting Genitourinary: ABSENT: dysuria, hematuria Musculoskeletal: ABSENT: joint swelling Integumentary: ABSENT: rash, wounds Neurological: ABSENT: abnormal gait, abnormal speech, confusion, dizziness, focal weakness, syncope Psychiatric: PRESENT: anxiety Endocrine: ABSENT: cold intolerance, heat intolerance, polydipsia, polyuria Hematologic/Lymphatic: ABSENT: easy bleeding, easy bruising, lymphadenopathy Allergic/Immunologic: ABSENT: seasonal rhinorrhea Physical Exam Vital Signs: Temp Pulse Resp BP Pulse Ox 97.6 F 78 20 119/59 L 96 03/09/18 03:54 03/09/18 07:00 03/09/18 03:54 03/09/18 03:54 03/09/18 03:54 Intake & Output 03/08/18 03/09/18 03/10/18 06:59 06:59 06:59 Intake Total 900 Balance 900 Weight 51.8 kg General appearance: PRESENT: mild distress - on supplemental oxygen via nasal cannula, thin Head exam: PRESENT: atraumatic, normocephalic Eye exam: PRESENT: conjunctiva pink, EOMI, PERRLA. ABSENT: scleral icterus Ear exam: PRESENT: normal external ear exam Mouth exam: PRESENT: moist Teeth exam: ABSENT: dental caries, dental tenderness, edentulous, poor dentation, other Neck exam: ABSENT: lymphadenopathy, tenderness, thyromegaly Respiratory exam: PRESENT: decreased breath sounds, prolonged expiratory phas, rhonchi, tachypnea, wheezes Cardiovascular exam: PRESENT: RRR, +S1, +S2, tachycardia. ABSENT: diastolic murmur, systolic murmur Pulses: PRESENT: +1 pedal pulses bilateral Vascular exam: PRESENT: normal capillary refill. ABSENT: pallor GI/Abdominal exam: PRESENT: normal bowel sounds, soft. ABSENT: distended, guarding, mass, organolmegaly, rebound, tenderness Extremities exam: ABSENT: pedal edema Musculoskeletal exam: PRESENT: deformity - due to multiple joints involvement with arthritis Neurological exam: PRESENT: alert, awake, oriented to person, oriented to place, oriented to time, oriented to situation, CN II-XII grossly intact. ABSENT: mot or sensory deficit Psychiatric exam: PRESENT: appropriate affect, normal mood. ABSENT: homicidal ideation, suicidal ideation Skin exam: PRESENT: dry, warm Results Laboratory Results: 03/09/18 04:00 03/09/18 04:00 03/08/18 03/08/18 03/08/18 18:10 18:10 18:10 WBC 24.3 H RBC 4.40 Hgb 12.2 Hct 37.7 MCV 86 MCH 27.7 MCHC 32.3 RDW 21.5 H Plt Count 424 Seg Neutrophils % Not Reportable Lymphocytes % Not Reportable Monocytes % Not Reportable Eosinophils % Not Reportable Basophils % Not Reportable Absolute Neutrophils Not Reportable Absolute Lymphocytes Not Reportable Absolute Monocytes Not Reportable Absolute Eosinophils Not Reportable Absolute Basophils Not Reportable Carbonic Acid HCO3/H2CO3 Ratio ABG pH ABG pCO2 ABG pO2 ABG HCO3 ABG O2 Saturation ABG Base Excess FiO2 Sodium 139.3 Potassium 4.4 Chloride 107 Carbon Dioxide 22 Anion Gap 10 BUN 21 H Creatinine 0.98 Est GFR ( Amer) > 60 Est GFR (Non-Af Amer) 55 L Glucose 106 Lactic Acid 1.1 Calcium 9.7 Total Bilirubin 0.4 AST 19 ALT 12 Alkaline Phosphatase 132 H Total Protein 7.8 Albumin 4.4 03/08/18 03/09/18 03/09/18 21:40 04:00 04:00 WBC 16.8 H RBC 3.41 L Hgb 9.3 L D Hct 29.5 L MCV 86 MCH 27.3 MCHC 31.6 L RDW 21.3 H Plt Count 311 Seg Neutrophils % Not Reportable Lymphocytes % Not Reportable Monocytes % Not Reportable Eosinophils % Not Reportable Basophils % Not Reportable Absolute Neutrophils Not Reportable Absolute Lymphocytes Not Reportable Absolute Monocytes Not Reportable Absolute Eosinophils Not Reportable Absolute Basophils Not Reportable Carbonic Acid 0.98 L HCO3/H2CO3 Ratio 19:1 ABG pH 7.39 ABG pCO2 32.7 L ABG pO2 41.9 L ABG HCO3 19.4 L ABG O2 Saturation 77.7 L ABG Base Excess -4.7 FiO2 30% Sodium 137.8 Potassium 3.6 Chloride 112 H Carbon Dioxide 16 L Anion Gap 10 BUN 16 Creatinine 0.76 Est GFR ( Amer) > 60 Est GFR (Non-Af Amer) > 60 Glucose 179 H Lactic Acid Calcium 7.6 L Total Bilirubin 0.2 AST 14 ALT 14 Alkaline Phosphatase 79 Total Protein 5.7 L Albumin 2.9 L 03/08/18 03/08/18 18:10 18:10 Creatine Kinase < 20 L CK-MB (CK-2) 0.59 Troponin I < 0.012 Impressions: Chest X-Ray 03/08/18 17:46 IMPRESSION: COPD with persistent bibasilar airspace disease left greater than right. Chest/Abdomen CTA 03/08/18 18:32 IMPRESSION: 1. No acute pulmonary embolism. 2. Diffuse emphysema with areas of scarring. 3. Atelectasis versus consolidation in the lung bases. 4. No pleural effusions or pneumothorax. Assessment & Plan - Diagnosis (1) Lobar pneumonia, unspecified organism Is this a current diagnosis for this admission?: Yes Plan: Maintain on triple antibiotic coverage with concern for HAP in view of her recent hospitalization and associated significant leukocytosis. (2) Decompensated COPD with exacerbation (chronic obstructive pulmonary disease) Is this a current diagnosis for this admission?: Yes Plan: Maintain on bronchodilators and low dose IV Solu Medrol therapy. Continue supplemental oxygen via nasal cannula. I did discuss with patient consideration of BiPAP while sleeping and possible use at home in view of her frequent decompensation upon discharge form the hospital. (3) Chronic respiratory failure with hypoxia and hypercapnia Is this a current diagnosis for this admission?: Yes Plan: Maintain on supplemental oxygen via nasal cannula and consideration of BiPAP or trilogy vent support to improve work of breathing and possibly upon discharge home. (4) HTN (hypertension) Qualifiers: Hypertension type: essential hypertension Qualified Code(s): I10 - Essential (primary) hypertension Is this a current diagnosis for this admission?: Yes Plan: Continue preadmission medication management. (5) HLD (hyperlipidemia) Qualifiers: Hyperlipidemia type: pure hypercholesterolemia Qualified Code(s): E78.00 - Pure hypercholesterolemia, unspecified Is this a current diagnosis for this admission?: Yes Plan: Continue preadmission medication management. (6) Chronic pain syndrome Is this a current diagnosis for this admission?: Yes Plan: Continue preadmission medication management. (7) Long-term current use of opiate analgesic Is this a current diagnosis for this admission?: Yes Plan: Continue preadmission medication management. - Time Time Spent: 50 to 70 Minutes Medications reviewed and adjusted accordingly: Yes Anticipated discharge: Home with Homehealth Within: Other - Inpatient Certification Based on my medical assessment, after consideration of the patient's comorbidities, presenting symptoms, or acuity I expect that the services needed warrant INPATIENT care.: Yes I certify that my determination is in accordance with my understanding of Medicare's requirements for reasonable and necessary INPATIENT services [42 CFR 412.3e].: Yes Medical Necessity: Need Close Monitoring Due to Risk of Patient Decompensation, Need For IV Fluids, Need For Continuous Telemetry Monitoring, Need for Nebulizer Therapy and Monitoring of Response, Need for Pain Control, Need for IV Antibiotics, Risk of Complication if Not Cared For in Hospital, Risk of Diagnosis Which Will Require Inpatient Eval/Care/Monitoring 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 Her prognosis remain guarded. I will request corporate event planner input for CIVIL DRAFTING TECHNICIAN services and home respiratory support device upon discharge.
[2018-03-09] MEDS: CEFEPIME 1 GM/D5W RTU 1 GM/50 ML RTUPB IV SCH (20:37)
[2018-03-09] MEDS ORDERED: VANCOMYCIN HCL 1,250 MG in DEXTROSE 5%-WATER 250 ML IV SCH (22:00)
[2018-03-09] MEDS ORDERED: ZOLPIDEM TARTRATE 5 MG TABLET PO SCH (22:00)
[2018-03-09] MEDS: ZOLPIDEM TARTRATE 5 MG TABLET PO PRN (22:18)
[2018-03-10] MEDS: NORMAL SALINE 1000 ML 1,000 ML IV PRN (00:12)
[2018-03-10] MEDS: METHYLPREDNISOLONE INJ 125 MG/2 ML SDV IV SCH ×3 (02:49→18:19)
[2018-03-10 07:15] LABS: ABSOLUTE LYMPHOCYTES (AUTO) 1.3 10^3/uL (0.5-4.7); ABSOLUTE MONOCYTES (AUTO) 0.6 10^3/uL (0.1-1.4); ABSOLUTE NEUT (AUTO) 17.3 10^3/uL (1.7-8.2); BASOPHILS % (AUTO) 0.1 % (0-2); HEMATOCRIT 31.7 % (36.0-47.0); HEMOGLOBIN 10.2 g/dL (12.0-15.5); LYMPHOCYTES % (AUTO) 6.5 % (13-45); MEAN CORPUSCULAR HEMOGLOBIN 27.5 pg (27.0-33.4); MEAN CORPUSCULAR HGB CONC 32.3 g/dL (32.0-36.0); MEAN CORPUSCULAR VOLUME 85 fl (80-97); MONOCYTES % (AUTO) 3.4 % (3-13); PLATELET COUNT 376 10^3/uL (150-450); RED BLOOD COUNT 3.72 10^6/uL (3.72-5.28); RED CELL DISTRIBUTION WIDTH 21.5 % (11.5-14.0); TOTAL CELLS COUNTED % (AUTO) 100 %; WHITE BLOOD COUNT 19.2 10^3/uL (4.0-10.5)
[2018-03-10 07:36] LABS: ALANINE AMINOTRANSFERASE 18 U/L (9-52); ALBUMIN 3.2 g/dL (3.5-5.0); ALKALINE PHOSPHATASE 100 U/L (38-126); ANION GAP 7 (5-19); ASPARTATE AMINO TRANSFERASE 15 U/L (14-36); BILIRUBIN,DIRECT 0.1 mg/dL (0.0-0.4); BILIRUBIN,TOTAL 0.2 mg/dL (0.2-1.3); BLOOD UREA NITROGEN 23 mg/dL (7-20); CARBON DIOXIDE 21 mmol/L (22-30); CHLORIDE 109 mmol/L (98-107); GLUCOSE 138 mg/dL (75-110); POTASSIUM 4.3 mmol/L (3.6-5.0); SODIUM 136.5 mmol/L (137-145); TOTAL PROTEIN 6.2 g/dL (6.3-8.2)
[2018-03-10] MEDS: ACETAZOLAMIDE 250 MG TABLET PO SCH ×2 (10:05→22:36)
[2018-03-10] MEDS: CITALOPRAM HYDROBROMIDE 20 MG TABLET PO SCH (10:05)
[2018-03-10] MEDS: ROPINIROLE HCL 1 MG TABLET PO SCH ×3 (10:05→18:20)
[2018-03-10] MEDS: MONTELUKAST SODIUM 10 MG TABLET PO SCH (10:05)
[2018-03-10] MEDS: ALPRAZOLAM 0.5 MG TABLET PO PRN ×2 (10:10→22:36)
--- NOTE | 2018-03-10 14:54 | PDOC PROGRESS REPORT ---
Subjective Progress Note for:: 03/10/18 Subjective:: Patient reported some improvement in her breathing with use of BiPAP during the night. No chest pain. Coughing persist with sputum production. No chest pain. No nausea, vomiting, or abdominal pain. No fever or chills. Reason For Visit: EXACERBATED COPD,LOBAR PNEUMONIA Physical Exam Vital Signs: Temp Pulse Resp BP Pulse Ox 97.6 F 60 17 126/45 H 98 03/10/18 04:02 03/10/18 07:00 03/10/18 04:02 03/10/18 04:02 03/10/18 04:02 Intake & Output 03/09/18 03/10/18 03/11/18 06:59 06:59 06:59 Intake Total 900 2145 Balance 900 2145 Weight 51.8 kg 52.8 kg General appearance: PRESENT: mild distress - on supplemental oxygen via cannula., thin Eye exam: ABSENT: conjunctiva pale, scleral icterus Ear exam: ABSENT: normal external ear exam Mouth exam: PRESENT: moist Neck exam: PRESENT: full ROM. ABSENT: carotid bruit, JVD, lymphadenopathy Respiratory exam: PRESENT: decreased breath sounds, rhonchi - minimal expiratory phase Cardiovascular exam: PRESENT: RRR, +S1, +S2. ABSENT: diastolic murmur, gallop, systolic murmur Vascular exam: PRESENT: normal capillary refill. ABSENT: pallor GI/Abdominal exam: PRESENT: normal bowel sounds, soft. ABSENT: distended, guarding, mass, organolmegaly, rebound, tenderness Extremities exam: ABSENT: pedal edema Musculoskeletal exam: PRESENT: deformity - multiple joints involvement with arthritis Neurological exam: PRESENT: alert, awake, oriented to person, oriented to place, oriented to time, oriented to situation, CN II-XII grossly intact. ABSENT: motor sensory deficit Psychiatric exam: PRESENT: appropriate affect, normal mood. ABSENT: homicidal ideation, suicidal ideation Skin exam: PRESENT: dry, warm Results Laboratory Results: 03/10/18 06:38 03/10/18 06:38 03/10/18 03/10/18 06:38 06:38 WBC 19.2 H RBC 3.72 Hgb 10.2 L Hct 31.7 L MCV 85 MCH 27.5 MCHC 32.3 RDW 21.5 H Plt Count 376 Seg Neutrophils % 90.0 H Lymphocytes % 6.5 L Monocytes % 3.4 Eosinophils % 0.0 Basophils % 0.1 Absolute Neutrophils 17.3 H Absolute Lymphocytes 1.3 Absolute Monocytes 0.6 Absolute Eosinophils 0.0 Absolute Basophils 0.0 Sodium 136.5 L Potassium 4.3 Chloride 109 H Carbon Dioxide 21 L Anion Gap 7 BUN 23 H Creatinine 0.79 Est GFR ( Amer) > 60 Est GFR (Non-Af Amer) > 60 Glucose 138 H Calcium 9.0 Total Bilirubin 0.2 AST 15 ALT 18 Alkaline Phosphatase 100 Total Protein 6.2 L Albumin 3.2 L 03/08/18 03/08/18 18:10 18:10 Creatine Kinase < 20 L CK-MB (CK-2) 0.59 Troponin I < 0.012 Impressions: Chest X-Ray 03/08/18 17:46 IMPRESSION: COPD with persistent bibasilar airspace disease left greater than right. Chest/Abdomen CTA 03/08/18 18:32 IMPRESSION: 1. No acute pulmonary embolism. 2. Diffuse emphysema with areas of scarring. 3. Atelectasis versus consolidation in the lung bases. 4. No pleural effusions or pneumothorax. Assessment & Plan - Diagnosis (1) Lobar pneumonia, unspecified organism Is this a current diagnosis for this admission?: Yes (2) Decompensated COPD with exacerbation (chronic obstructive pulmonary disease) Is this a current diagnosis for this admission?: Yes (3) Chronic respiratory failure with hypoxia and hypercapnia Is this a current diagnosis for this admission?: Yes (4) HTN (hypertension) Qualifiers: Hypertension type: essential hypertension Qualified Code(s): I10 - Essent ial (primary) hypertension Is this a current diagnosis for this admission?: Yes (5) HLD (hyperlipidemia) Qualifiers: Hyperlipidemia type: pure hypercholesterolemia Qualified Code(s): E78.00 - Pure hypercholesterolemia, unspecified Is this a current diagnosis for this admission?: Yes (6) Chronic pain syndrome Is this a current diagnosis for this admission?: Yes (7) Long-term current use of opiate analgesic Is this a current diagnosis for this admission?: Yes - Time Time Spent with patient: 25-34 minutes Medications reviewed and adjusted accordingly: Yes Anticipated discharge: Home with Homehealth Within: Other - Inpatient Certification Based on my medical assessment, after consideration of the patient's comorbidities, presenting symptoms, or acuity I expect that the services needed warrant INPATIENT care.: Yes I certify that my determination is in accordance with my understanding of Medicare's requirements for reasonable and necessary INPATIENT services [42 CFR 412.3e].: Yes Medical Necessity: Need Close Monitoring Due to Risk of Patient Decompensation, Need For IV Fluids, Need For Continuous Telemetry Monitoring, Need for Nebulizer Therapy and Monitoring of Response, Need for IV Antibiotics, Risk of Complication if Not Cared For in Hospital, Risk of Diagnosis Which Will Require Inpatient Eval/Care/Monitoring Post Hospital Care: D/C Herd Tester Documentation - Plan Summary Plan Summary: Continue triple IV antibiotic therapy. Follow up on blood pressure findings.
[2018-03-10] MEDS: CEFEPIME 1 GM/D5W RTU 1 GM/50 ML RTUPB IV SCH (18:19)
[2018-03-10] MEDS: ZOLPIDEM TARTRATE 5 MG TABLET PO PRN (22:36)
[2018-03-10] MEDS: OXYCODONE-ACETAMINOPHEN 5-325 MG TABLET PO PRN (22:36)
[2018-03-10] MEDS: LEVOFLOXACIN 500 MG/D5W RTU 500 MG/100 ML RTUPB IV SCH (22:37)
[2018-03-10] MEDS: VANCOMYCIN HCL 1,000 MG in DEXTROSE 5%-WATER 250 ML IV SCH (22:38)
[2018-03-11] MEDS: METHYLPREDNISOLONE INJ 125 MG/2 ML SDV IV SCH ×3 (02:21→17:30)
[2018-03-11] MEDS: MONTELUKAST SODIUM 10 MG TABLET PO SCH (09:43)
[2018-03-11] MEDS: ALPRAZOLAM 0.5 MG TABLET PO PRN ×2 (09:43→22:11)
[2018-03-11] MEDS: ACETAZOLAMIDE 250 MG TABLET PO SCH ×2 (09:43→22:11)
[2018-03-11] MEDS: ROPINIROLE HCL 1 MG TABLET PO SCH ×3 (09:43→17:30)
[2018-03-11] MEDS: CITALOPRAM HYDROBROMIDE 20 MG TABLET PO SCH (09:43)
[2018-03-11] MEDS: IPRATROPIUM/ALBUTEROL 0.5-2.5 MG/3 ML AMPUL NEB PRN (11:47)
[2018-03-11] MEDS: CEFEPIME 1 GM/D5W RTU 1 GM/50 ML RTUPB IV SCH (17:29)
[2018-03-11] MEDS: ZOLPIDEM TARTRATE 5 MG TABLET PO PRN (22:11)
[2018-03-11] MEDS: OXYCODONE-ACETAMINOPHEN 5-325 MG TABLET PO PRN (22:11)
[2018-03-11] MEDS: VANCOMYCIN HCL 1,000 MG in DEXTROSE 5%-WATER 250 ML IV SCH (22:12)
[2018-03-12] MEDS: METHYLPREDNISOLONE INJ 125 MG/2 ML SDV IV SCH ×3 (02:08→17:10)
[2018-03-12] MEDS: OXYCODONE-ACETAMINOPHEN 5-325 MG TABLET PO PRN ×2 (06:25→22:36)
[2018-03-12] MEDS: NORMAL SALINE 1000 ML 1,000 ML IV PRN (06:25)
[2018-03-12] MEDS: MONTELUKAST SODIUM 10 MG TABLET PO SCH (09:42)
[2018-03-12] MEDS: ALPRAZOLAM 0.5 MG TABLET PO PRN ×2 (09:42→22:36)
[2018-03-12] MEDS: ROPINIROLE HCL 1 MG TABLET PO SCH ×3 (09:42→17:10)
[2018-03-12] MEDS: CITALOPRAM HYDROBROMIDE 20 MG TABLET PO SCH (09:42)
[2018-03-12] MEDS: ACETAZOLAMIDE 250 MG TABLET PO SCH ×2 (09:55→22:40)
[2018-03-12] MEDS: IPRATROPIUM/ALBUTEROL 0.5-2.5 MG/3 ML AMPUL NEB PRN (11:17)
--- NOTE | 2018-03-12 16:26 | PDOC PROGRESS REPORT ---
Subjective Progress Note for:: 03/11/18 Subjective:: Patient denied chest pain. Patient remain on BiPAP support while sleeping and nasal cannula oxygen support while awake. No nausea, vomiting, or abdominal pain. No fever or chills. Reason For Visit: EXACERBATED COPD,LOBAR PNEUMONIA Physical Exam Vital Signs: Temp Pulse Resp BP Pulse Ox 98.3 F 75 16 138/61 H 99 03/11/18 15:52 03/11/18 15:52 03/11/18 15:52 03/11/18 15:52 03/11/18 15:52 Intake & Output 03/10/18 03/11/18 03/12/18 06:59 06:59 06:59 Intake Total 2145 636 809 Output Total 425 Balance 2145 211 809 Weight 52.8 kg 52.3 kg Physical Exam: General appearance: PRESENT: mild distress - on supplemental oxygen via cannula., thin Eye exam: ABSENT: conjunctiva pale, pallor, scleral icterus Neck exam: PRESENT: full ROM. ABSENT: carotid bruit, JVD, lymphadenopathy Respiratory exam: PRESENT: decreased breath sounds, rhonchi - minimal expiratory phase Cardiovascular exam: PRESENT: RRR, +S1, +S2. ABSENT: diastolic murmur, gallop, systolic murmur GI/Abdominal exam: PRESENT: normal bowel sounds, soft. ABSENT: distended, guarding, mass, organomegaly, rebound, tenderness Extremities exam: ABSENT: pedal edema Musculoskeletal exam: PRESENT: deformity - multiple joints involvement with arthritis Neurological exam: PRESENT: alert, awake, oriented to person, oriented to place, oriented to time, oriented to situation, CN II-XII grossly intact. ABSENT: motor sensory deficit Psychiatric exam: PRESENT: appropriate affect, normal mood. ABSENT: homicidal ideation, suicidal ideation Skin exam: PRESENT: dry, warm Results Laboratory Results: 03/10/18 06:38 03/10/18 06:38 03/08/18 03/08/18 18:10 18:10 Creatine Kinase < 20 L CK-MB (CK-2) 0.59 Troponin I < 0.012 Impressions: Chest X-Ray 03/08/18 17:46 IMPRESSION: COPD with persistent bibasilar airspace disease left greater than right. Chest/Abdomen CTA 03/08/18 18:32 IMPRESSION: 1. No acute pulmonary embolism. 2. Diffuse emphysema with areas of scarring. 3. Atelectasis versus consolidation in the lung bases. 4. No pleural effusions or pneumothorax. Assessment & Plan - Diagnosis (1) Lobar pneumonia, unspecified organism Is this a current diagnosis for this admission?: Yes (2) Decompensated COPD with exacerbation (chronic obstructive pulmonary disease) Is this a current diagnosis for this admission?: Yes (3) Chronic respiratory failure with hypoxia and hypercapnia Is this a current diagnosis for this admission?: Yes (4) HTN (hypertension) Qualifiers: Hypertension type: essential hypertension Qualified Code(s): I10 - Essential (primary) hypertension Is this a current diagnosis for this admission?: Yes (5) HLD (hyperlipidemia) Qualifiers: Hyperlipidemia type: pure hypercholesterolemia Qualified Code(s): E78.00 - Pure hypercholesterolemia, unspecified Is this a current diagnosis for this admission?: Yes (6) Chronic pain syndrome Is this a current diagnosis for this admission?: Yes (7) Long-term current use of opiate analgesic Is this a current diagnosis for this admission?: Yes - Time Time Spent with patient: 25-34 minutes Medications reviewed and adjusted accordingly: Yes Anticipated discharge: Home with Homehealth Within: Other - Inpatient Certification Based on my medical assessment, after consideration of the patient's comorbidities, presenting symptoms, or acuity I expect that the services needed warrant INPATIENT care.: Yes I certify that my determination is in accordance with my understanding of Medicare's requirements for reasonable and necessary INPATIENT services [42 CFR 412.3e].: Yes Medical Necessity: Need Close Monitoring Due to Risk of Patient Decompensation, Need For IV Fluids, Need For Continuous Telemetry Monitoring, Need for Nebulizer Therapy and Monitoring of Response, Need for IV Antibiotics, Risk of Complicat ion if Not Cared For in Hospital, Risk of Diagnosis Which Will Require Inpatient Eval/Care/Monitoring Post Hospital Care: D/C Motion Picture Commentator Documentation - Plan Summary Plan Summary: Continue current antibiotic coverage. Follow up on culture findings.
--- NOTE | 2018-03-12 16:31 | PDOC PROGRESS REPORT ---
Subjective Progress Note for:: 03/12/18 Subjective:: Patient denied chest pain. Less coughing and sputum production. Patient remain on BiPAP support while sleeping and nasal cannula oxygen support while awake. No nausea, vomiting, or abdominal pain. No fever or chills. Reason For Visit: EXACERBATED COPD,LOBAR PNEUMONIA Physical Exam Vital Signs: Temp Pulse Resp BP Pulse Ox 98.2 F 79 18 120/55 L 97 03/12/18 15:36 03/12/18 15:36 03/12/18 15:36 03/12/18 15:36 03/12/18 15:36 Intake & Output 03/11/18 03/12/18 03/13/18 06:59 06:59 06:59 Intake Total 1636 2049 Output Total 425 800 Balance 1211 1249 Weight 52.3 kg 51.1 kg Physical Exam: General appearance: PRESENT: mild distress - on supplemental oxygen via cannula., thin Respiratory exam: PRESENT: decreased breath sounds, rhonchi - minimal expiratory phase Cardiovascular exam: PRESENT: RRR, +S1, +S2. ABSENT: diastolic murmur, gallop, systolic murmur GI/Abdominal exam: PRESENT: normal bowel sounds, soft. ABSENT: distended, guarding, mass, organomegaly, rebound, tenderness Extremities exam: ABSENT: pedal edema Musculoskeletal exam: PRESENT: deformity - multiple joints involvement with arthritis Neurological exam: PRESENT: alert, awake, oriented to person, oriented to place, oriented to time, oriented to situation, CN II-XII grossly intact. ABSENT: motor sensory deficit Psychiatric exam: PRESENT: appropriate affect, normal mood. ABSENT: homicidal ideation, suicidal ideation Skin exam: PRESENT: dry, warm Results Laboratory Results: 03/10/18 06:38 03/10/18 06:38 03/08/18 03/08/18 18:10 18:10 Creatine Kinase < 20 L CK-MB (CK-2) 0.59 Troponin I < 0.012 Impressions: Chest X-Ray 03/08/18 17:46 IMPRESSION: COPD with persistent bibasilar airspace disease left greater than right. Chest/Abdomen CTA 03/08/18 18:32 IMPRESSION: 1. No acute pulmonary embolism. 2. Diffuse emphysema with areas of scarring. 3. Atelectasis versus consolidation in the lung bases. 4. No pleural effusions or pneumothorax. Assessment & Plan - Diagnosis (1) Lobar pneumonia, unspecified organism Is this a current diagnosis for this admission?: Yes (2) Decompensated COPD with exacerbation (chronic obstructive pulmonary disease) Is this a current diagnosis for this admission?: Yes (3) Chronic respiratory failure with hypoxia and hypercapnia Is this a current diagnosis for this admission?: Yes (4) HTN (hypertension) Qualifiers: Hypertension type: essential hypertension Qualified Code(s): I10 - Essential (primary) hypertension Is this a current diagnosis for this admission?: Yes (5) HLD (hyperlipidemia) Qualifiers: Hyperlipidemia type: pure hypercholesterolemia Qualified Code(s): E78.00 - Pure hypercholesterolemia, unspecified Is this a current diagnosis for this admission?: Yes (6) Chronic pain syndrome Is this a current diagnosis for this admission?: Yes (7) Long-term current use of opiate analgesic Is this a current diagnosis for this admission?: Yes - Time Time Spent with patient: 25-34 minutes Medications reviewed and adjusted accordingly: Yes Anticipated discharge: Home with Homehealth Within: Other - Inpatient Certification Based on my medical assessment, after consideration of the patient's comorbidities, presenting symptoms, or acuity I expect that the services needed warrant INPATIENT care.: Yes I certify that my determination is in accordance with my understanding of Medicare's requirements for reasonable and necessary INPATIENT services [42 CFR 412.3e].: Yes Medical Necessity: Need Close Monitoring Due to Risk of Patient Decompensation, Need For IV Fluids, Need For Continuous Telemetry Monitoring, Need for Nebulizer Therapy and Monitoring of Response, Need for IV Antibiotics, Risk of Complica tion if Not Cared For in Hospital, Risk of Diagnosis Which Will Require Inpatient Eval/Care/Monitoring Post Hospital Care: D/C Solution Director Documentation - Plan Summary Plan Summary: Continue current medication management. Encourage use of incentive spirometer and flutter devices. Request pulmonary consult with Dr. Rosen regarding home use of noninvasive respiratory support device for chronic respiratory failure upon discharge.
[2018-03-12] MEDS: CEFEPIME 1 GM/D5W RTU 1 GM/50 ML RTUPB IV SCH (17:10)
[2018-03-12] MEDS: VANCOMYCIN HCL 1,000 MG in DEXTROSE 5%-WATER 250 ML IV SCH (21:47)
[2018-03-12 22:14] LABS: VANCOMYCIN,TROUGH 19.3 ug/mL (5.0-20.0)
[2018-03-12] MEDS: ZOLPIDEM TARTRATE 5 MG TABLET PO PRN (22:36)
[2018-03-12] MEDS: LEVOFLOXACIN 500 MG/D5W RTU 500 MG/100 ML RTUPB IV SCH (22:37)
[2018-03-13] MEDS: METHYLPREDNISOLONE INJ 125 MG/2 ML SDV IV SCH ×2 (01:27→09:54)
[2018-03-13] MEDS: OXYCODONE-ACETAMINOPHEN 5-325 MG TABLET PO PRN ×2 (04:01→22:03)
[2018-03-13 04:22] LABS: HEMATOCRIT 33.8 % (36.0-47.0); HEMOGLOBIN 10.8 g/dL (12.0-15.5); MEAN CORPUSCULAR HEMOGLOBIN 27.5 pg (27.0-33.4); MEAN CORPUSCULAR HGB CONC 32.1 g/dL (32.0-36.0); MEAN CORPUSCULAR VOLUME 86 fl (80-97); PLATELET COUNT 372 10^3/uL (150-450); RED BLOOD COUNT 3.94 10^6/uL (3.72-5.28); RED CELL DISTRIBUTION WIDTH 20.7 % (11.5-14.0); WHITE BLOOD COUNT 10.9 10^3/uL (4.0-10.5)
[2018-03-13 04:39] LABS: ALANINE AMINOTRANSFERASE 11 U/L (9-52); ALBUMIN 3.2 g/dL (3.5-5.0); ALKALINE PHOSPHATASE 98 U/L (38-126); ANION GAP 9 (5-19); ASPARTATE AMINO TRANSFERASE 15 U/L (14-36); BILIRUBIN,DIRECT 0.1 mg/dL (0.0-0.4); BILIRUBIN,TOTAL 0.1 mg/dL (0.2-1.3); BLOOD UREA NITROGEN 25 mg/dL (7-20); CALCIUM 8.9 mg/dL (8.4-10.2); CARBON DIOXIDE 22 mmol/L (22-30); CHLORIDE 108 mmol/L (98-107); GLUCOSE 129 mg/dL (75-110); POTASSIUM 4.2 mmol/L (3.6-5.0); SODIUM 138.5 mmol/L (137-145)
[2018-03-13 04:41] LABS: ABSOLUTE LYMPHOCYTES# (MANUAL) 0.5 10^3/uL (0.5-4.7); ABSOLUTE MONOCYTES # (MANUAL) 0.3 10^3/uL (0.1-1.4); BASOPHILS % (MANUAL) 0 % (0-2); EOSINOPHILS % (MANUAL) 0 % (0-6); LYMPHOCYTES % (MANUAL) 5 % (13-45); MONOCYTES % (MANUAL) 3 % (3-13); POLYCHROMASIA 2+; SEGMENTED NEUTROPHILS % (MAN) 92 % (42-78); TOTAL CELLS COUNTED 100
[2018-03-13 04:42] LABS: ANISOCYTOSIS 2+; PLATELET COMMENT ADEQUATE
[2018-03-13] MEDS: NORMAL SALINE 1000 ML 1,000 ML IV PRN (06:46)
[2018-03-13 07:54] LABS: APPEARANCE,URINE CLEAR; BILIRUBIN,URINE NEGATIVE (NEGATIVE); COLOR,URINE STRAW; GLUCOSE, URINE NEGATIVE (NEGATIVE); KETONES,URINE NEGATIVE (NEGATIVE); LEUKOCYTE ESTERASE,URINE NEGATIVE (NEGATIVE); NITRITE,URINE NEGATIVE (NEGATIVE); PROTEIN,URINE NEGATIVE (NEGATIVE); UROBILINOGEN,URINE NEGATIVE mg/dL (<2.0)
[2018-03-13] MEDS: MONTELUKAST SODIUM 10 MG TABLET PO SCH (09:54)
[2018-03-13] MEDS: CITALOPRAM HYDROBROMIDE 20 MG TABLET PO SCH (09:54)
[2018-03-13] MEDS: ROPINIROLE HCL 1 MG TABLET PO SCH ×3 (09:54→17:13)
[2018-03-13] MEDS: ACETAZOLAMIDE 250 MG TABLET PO SCH ×2 (09:55→21:31)
[2018-03-13] MEDS: ALPRAZOLAM 0.5 MG TABLET PO PRN ×2 (09:59→22:07)
[2018-03-13] MEDS: IPRATROPIUM/ALBUTEROL 0.5-2.5 MG/3 ML AMPUL NEB PRN (10:47)
[2018-03-13 12:20] LABS: ARTERIAL BLOOD BASE EXCESS -3.5 mmol/L; ARTERIAL BLOOD H2CO3 1.26 mmol/L (1.05-1.35); ARTERIAL BLOOD O2 SATURATION 97.2 % (94-98); ARTERIAL BLOOD PCO2 41.8 mmHg (35-45); ARTERIAL BLOOD PH 7.34 (7.35-7.45); ARTERIAL BLOOD PO2 100.1 mmHg (80-100); ARTERIAL BLOOD TOTAL CO2 23.3 mmol/L (21-25)
[2018-03-13 12:23] LABS: ARTERIAL BLOOD FIO2 3L
--- NOTE | 2018-03-13 14:07 | PDOC PROGRESS REPORT ---
Subjective Progress Note for:: 03/13/18 Subjective:: Patient reported improvement in her breathing with use of BiPAP during sleeping hours. No chest pain. No nausea, vomiting, or abdominal pain. No fever or chills. Reason For Visit: EXACERBATED COPD,LOBAR PNEUMONIA Physical Exam Vital Signs: Temp Pulse Resp BP Pulse Ox 97.6 F 66 18 125/57 L 99 03/13/18 11:18 03/13/18 11:18 03/13/18 11:18 03/13/18 11:18 03/13/18 11:18 Intake & Output 03/12/18 03/13/18 03/14/18 06:59 06:59 06:59 Intake Total 2049 2094 750 Output Total 800 500 Balance 1249 2094 250 Weight 51.1 kg 54.5 kg Physical Exam: General appearance: PRESENT: mild distress - on supplemental oxygen via cannula., thin Respiratory exam: PRESENT: decreased breath sounds, rhonchi - minimal expiratory phase Cardiovascular exam: PRESENT: RRR, +S1, +S2. ABSENT: diastolic murmur, gallop, systolic murmur GI/Abdominal exam: PRESENT: normal bowel sounds, soft. ABSENT: distended, guarding, mass, organomegaly, rebound, tenderness Extremities exam: ABSENT: pedal edema Musculoskeletal exam: PRESENT: deformity - multiple joints involvement with arthritis Neurological exam: PRESENT: alert, awake, oriented to person, oriented to place, oriented to time, oriented to situation, CN II-XII grossly intact. ABSENT: motor sensory deficit Psychiatric exam: PRESENT: appropriate affect, normal mood. ABSENT: homicidal ideation, suicidal ideation Skin exam: PRESENT: dry, warm Results Laboratory Results: 03/13/18 04:18 03/13/18 04:18 03/13/18 03/13/18 03/13/18 04:18 04:18 06:45 WBC 10.9 H RBC 3.94 Hgb 10.8 L Hct 33.8 L MCV 86 MCH 27.5 MCHC 32.1 RDW 20.7 H Plt Count 372 Seg Neutrophils % Not Reportable Lymphocytes % Not Reportable Monocytes % Not Reportable Eosinophils % Not Reportable Basophils % Not Reportable Absolute Neutrophils Not Reportable Absolute Lymphocytes Not Reportable Absolute Monocytes Not Reportable Absolute Eosinophils Not Reportable Absolute Basophils Not Reportable Carbonic Acid HCO3/H2CO3 Ratio ABG pH ABG pCO2 ABG pO2 ABG HCO3 ABG O2 Saturation ABG Base Excess FiO2 Sodium 138.5 Potassium 4.2 Chloride 108 H Carbon Dioxide 22 Anion Gap 9 BUN 25 H Creatinine 0.79 Est GFR ( Amer) > 60 Est GFR (Non-Af Amer) > 60 Glucose 129 H Calcium 8.9 Total Bilirubin 0.1 L AST 15 ALT 11 Alkaline Phosphatase 98 Total Protein 6.0 L Albumin 3.2 L Urine Color STRAW Urine Appearance CLEAR Urine pH 8.0 Ur Specific [place] 1.010 Urine Protein NEGATIVE Urine Glucose (UA) NEGATIVE Urine Ketones NEGATIVE Urine Blood NEGATIVE Urine Nitrite NEGATIVE Ur Leukocyte Esterase NEGATIVE Urine WBC (Auto) 0 Urine RBC (Auto) 0 03/13/18 12:03 WBC RBC Hgb Hct MCV MCH MCHC RDW Plt Count Seg Neutrophils % Lymphocytes % Monocytes % Eosinophils % Basophils % Absolute Neutrophils Absolute Lymphocytes Absolute Monocytes Absolute Eosinophils Absolute Basophils Carbonic Acid 1.26 HCO3/H2CO3 Ratio 17:1 ABG pH 7.34 L ABG pCO2 41.8 ABG pO2 100.1 H ABG HCO3 22.0 ABG O2 Saturation 97.2 ABG Base Excess -3.5 FiO2 3L Sodium Potassium Chloride Carbon Dioxide Anion Gap BUN Creatinine Est GFR ( Amer) Est GFR (Non-Af Amer) Glucose Calcium Total Bilirubin AST ALT Alkaline Phosphatase Total Protein Albumin Urine Color Urine Appearance Urine pH Ur Specific [place] Urine Protein Urine Glucose (UA) Urine Ketones Urine Blood Urine Nitrite Ur Leukocyte Esterase Urine WBC (Auto) Urine RBC (Auto) 03/08/18 03/08/18 18:10 18:10 Creatine Kinase < 20 L CK-MB (CK-2) 0.59 Troponin I < 0.012 Impressions: Chest X-Ray 03/08/18 17:46 IMPRESSION: COPD with persistent bibasilar airspace disease left greater than right. Chest/Abdomen CTA 03/08/18 18:32 IMPRESSION: 1. No acute pulmonary embolism. 2. Diffuse emphysema with areas of scarring. 3. Atelectasis versus consolidation in the lung bases. 4. No pleural effusions or pneumothorax. Assessment & Plan - Diagnosis (1) Lobar pneumonia, unspecified organism Is this a current diagnosis for this admission?: Yes (2) Decompensated COPD with exacerbation (chronic obstructive pulmonary disease) Is this a current diagnosis for this admission?: Yes (3) Chronic respiratory failure with hypoxia and hypercapnia Is this a current diagnosis for this admission?: Yes (4) HTN (hypertension) Qualifiers: Hypertension type: essential hypertension Qualified Code(s): I10 - Essential (primary) hypertension Is this a current diagnosis for this admission?: Yes (5) HLD (hyperlipidemia) Qualifiers: Hyperlipidemia type: pure hypercholesterolemia Qualified Code(s): E78.00 - Pure hypercholesterolemia, unspecified Is this a current diagnosis for this admission?: Yes (6) Chronic pain syndrome Is this a current diagnosis for this admission?: Yes (7) Long-term current use of opiate analgesic Is this a current diagnosis for this admission?: Yes - Time Time Spent with patient: 25-34 minutes Medications reviewed and adjusted accordingly: Yes Anticipated discharge: Home with Homehealth Within: Other - Inpatient Certification Based on my medical assessment, after consideration of the patient's comorbidities, presenting symptoms, or acuity I expect that the services needed warrant INPATIENT care.: Yes I certify that my determination is in accordance with my understanding of Medicare's requirements for reasonable and necessary INPATIENT services [42 CFR 412.3e].: Yes Medical Necessity: Significant Comorbidiites Make Outpatient Treatment Too Risky, Need Close Monitoring Due to Risk of Patient Decompensation, Need For IV Fluids, Need For Continuous Telemetry Monitoring, Need for Nebulizer Therapy and Monitoring of Response, Need for IV Antibiotics, Risk of Complication if Not Cared For in Hospital, Risk of Diagnosis Which Will Require Inpatient Eval/Care/Monitoring Post Hospital Care: D/C 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 Decrease IV Solu Medrol to 40 mg q 8hours. I discussed case with Dr. Rosen, [employer], this morning. Patient will benefit from BiPAP usage upon discharge. Follow up on culture findings, so far no growth to date.
[2018-03-13] MEDS: CEFEPIME 1 GM/D5W RTU 1 GM/50 ML RTUPB IV SCH (17:13)
[2018-03-13] MEDS: METHYLPREDNISOLONE INJ 40 MG/1 ML SDV IV SCH (17:13)
[2018-03-13] MEDS: VANCOMYCIN HCL 1,000 MG in DEXTROSE 5%-WATER 250 ML IV SCH (21:31)
[2018-03-13] MEDS: ZOLPIDEM TARTRATE 5 MG TABLET PO PRN (22:05)
[2018-03-14] MEDS: METHYLPREDNISOLONE INJ 40 MG/1 ML SDV IV SCH ×3 (01:15→17:46)
[2018-03-14] MEDS: NORMAL SALINE 1000 ML 1,000 ML IV PRN ×2 (01:17→19:16)
[2018-03-14] MEDS: OXYCODONE-ACETAMINOPHEN 5-325 MG TABLET PO PRN ×2 (03:58→21:52)
--- NOTE | 2018-03-14 08:12 | PDOC PROGRESS REPORT ---
Subjective Progress Note for:: 03/14/18 Subjective:: No chest pain and improving breathing with use of BiPAP during sleeping hours. No fever or chills. No nausea, vomiting, or abdominal pain. No fever or chills. Her blood culture report is no growth x 5 days. Reason For Visit: EXACERBATED COPD,LOBAR PNEUMONIA Physical Exam Vital Signs: Temp Pulse Resp BP Pulse Ox 97.7 F 69 18 129/53 H 100 03/14/18 07:13 03/14/18 07:13 03/14/18 07:13 03/14/18 07:13 03/14/18 07:13 Intake & Output 03/13/18 03/14/18 03/15/18 06:59 06:59 06:59 Intake Total 2093 3420 Output Total 800 Balance 2093 2620 Weight 54.5 kg 50.8 kg Physical Exam: General appearance: PRESENT: mild distress - on supplemental oxygen via cannula. Currently on BiPAP support while sleeping, thin Respiratory exam: PRESENT: decreased breath sounds, rhonchi - minimal expiratory phase Cardiovascular exam: PRESENT: RRR, +S1, +S2. ABSENT: diastolic murmur, gallop, systolic murmur GI/Abdominal exam: PRESENT: normal bowel sounds, soft. ABSENT: distended, guarding, mass, organomegaly, rebound, tenderness Extremities exam: ABSENT: pedal edema Musculoskeletal exam: PRESENT: deformity - multiple joints involvement with arthritis Neurological exam: PRESENT: alert, awake, oriented to person, oriented to place, oriented to time, oriented to situation, CN II-XII grossly intact. ABSENT: motor sensory deficit Psychiatric exam: PRESENT: appropriate affect, normal mood. ABSENT: homicidal ideation, suicidal ideation Skin exam: PRESENT: dry, warm Results Laboratory Results: 03/13/18 04:18 03/13/18 04:18 03/13/18 03/13/18 06:45 12:03 Carbonic Acid 1.26 HCO3/H2CO3 Ratio 17:1 ABG pH 7.34 L ABG pCO2 41.8 ABG pO2 100.1 H ABG HCO3 22.0 ABG O2 Saturation 97.2 ABG Base Excess -3.5 FiO2 3L Urine Color STRAW Urine Appearance CLEAR Urine pH 8.0 Ur Specific [place] 1.010 Urine Protein NEGATIVE Urine Glucose (UA) NEGATIVE Urine Ketones NEGATIVE Urine Blood NEGATIVE Urine Nitrite NEGATIVE Ur Leukocyte Esterase NEGATIVE Urine WBC (Auto) 0 Urine RBC (Auto) 0 03/08/18 22:00 Blood Blood Culture - Final NO GROWTH IN 5 DAYS 03/08/18 18:10 Blood Blood Culture - Final NO GROWTH IN 5 DAYS 03/08/18 03/08/18 18:10 18:10 Creatine Kinase < 20 L CK-MB (CK-2) 0.59 Troponin I < 0.012 Impressions: Chest X-Ray 03/08/18 17:46 IMPRESSION: COPD with persistent bibasilar airspace disease left greater than right. Chest/Abdomen CTA 03/08/18 18:32 IMPRESSION: 1. No acute pulmonary embolism. 2. Diffuse emphysema with areas of scarring. 3. Atelectasis versus consolidation in the lung bases. 4. No pleural effusions or pneumothorax. Assessment & Plan - Diagnosis (1) Lobar pneumonia, unspecified organism Is this a current diagnosis for this admission?: Yes (2) Decompensated COPD with exacerbation (chronic obstructive pulmonary disease) Is this a current diagnosis for this admission?: Yes (3) Chronic respiratory failure with hypoxia and hypercapnia Is this a current diagnosis for this admission?: Yes (4) HTN (hypertension) Qualifiers: Hypertension type: essential hypertension Qualified Code(s): I10 - Essential (primary) hypertension Is this a current diagnosis for this admission?: Yes (5) HLD (hyperlipidemia) Qualifiers: Hyperlipidemia type: pure hypercholesterolemia Qualified Code(s): E78.00 - Pure hypercholesterolemia, unspecified Is this a current diagnosis for this admission?: Yes (6) Chronic pain syndrome Is this a current diagnosis for this admission?: Yes (7) Long-term current use of opiate analgesic Is this a current diagnosis for this admission?: Yes - Time Time Spent with patient: 25-34 minutes Medications reviewed and adjusted accordingly: Yes Anticipated discharge: Home with Homehealth Within: Other - Inpatient Certification Based on my medical assessment, after consideration of the patient's comorbidities, presenting symptoms, or acuity I expect that the services needed warrant INPATIENT care.: Yes I certify that my determination is in accordance with my understanding of Medicare's requirements for reasonable and necessary INPATIENT services [42 CFR 412.3e].: Yes Medical Necessity: Significant Comorbidiites Make Outpatient Treatment Too Risky, Need Close Monitoring Due to Risk of Patient Decompensation, Need For IV Fluids, Need For Continuous Telemetry Monitoring, Need for Nebulizer Therapy and Monitoring of Response, Need for IV Antibiotics, Risk of Complication if Not Cared For in Hospital, Risk of Diagnosis Which Will Require Inpatient Eval/Care/Monitoring Post Hospital Care: D/C Job Service Consultant Documentation - Plan Summary Plan Summary: D/C IV Vancomycin. Maintain on IV Levofloxacin and Cefepime coverage based on her 02/19/2018 sputum culture findings with Pseudomonas Aeruginosa.
[2018-03-14] MEDS: IPRATROPIUM/ALBUTEROL 0.5-2.5 MG/3 ML AMPUL NEB PRN ×4 (08:40→20:57)
[2018-03-14] MEDS: ACETAZOLAMIDE 250 MG TABLET PO SCH ×2 (09:41→21:08)
[2018-03-14] MEDS: MONTELUKAST SODIUM 10 MG TABLET PO SCH (09:41)
[2018-03-14] MEDS: CITALOPRAM HYDROBROMIDE 20 MG TABLET PO SCH (09:41)
[2018-03-14] MEDS: ROPINIROLE HCL 1 MG TABLET PO SCH ×3 (09:41→17:46)
[2018-03-14] MEDS: ALPRAZOLAM 0.5 MG TABLET PO PRN ×2 (09:43→21:52)
[2018-03-14] MEDS: CEFEPIME 1 GM/D5W RTU 1 GM/50 ML RTUPB IV SCH (17:46)
[2018-03-14] MEDS: LEVOFLOXACIN 500 MG/D5W RTU 500 MG/100 ML RTUPB IV SCH (21:08)
[2018-03-14] MEDS: ZOLPIDEM TARTRATE 5 MG TABLET PO PRN (21:52)
[2018-03-15] MEDS: METHYLPREDNISOLONE INJ 40 MG/1 ML SDV IV SCH ×3 (01:04→17:08)
[2018-03-15] MEDS: OXYCODONE-ACETAMINOPHEN 5-325 MG TABLET PO PRN ×2 (06:23→21:44)
--- NOTE | 2018-03-15 09:07 | PDOC PROGRESS REPORT ---
Subjective Progress Note for:: 03/15/18 Subjective:: No chest pain. Remain on BiPAP during sleeping hours. No fever or chills. No nausea, vomiting, or abdominal pain. No fever or chills. Reason For Visit: EXACERBATED COPD,LOBAR PNEUMONIA Physical Exam Vital Signs: Temp Pulse Resp BP Pulse Ox 97.5 F 63 20 156/66 H 99 03/15/18 07:37 03/15/18 07:37 03/15/18 07:37 03/15/18 07:37 03/15/18 07:37 Intake & Output 03/14/18 03/15/18 03/16/18 06:59 06:59 06:59 Intake Total 3420 3241 Output Total 800 500 Balance 2620 2741 Weight 50.8 kg 53.8 kg Physical Exam: General appearance: PRESENT: mild distress - on supplemental oxygen via cannula. Currently on BiPAP support while sleeping, thin Respiratory exam: PRESENT: decreased breath sounds, rhonchi - minimal expiratory phase Cardiovascular exam: PRESENT: RRR, +S1, +S2. ABSENT: diastolic murmur, gallop, systolic murmur GI/Abdominal exam: PRESENT: normal bowel sounds, soft. ABSENT: distended, guarding, mass, organomegaly, rebound, tenderness Extremities exam: ABSENT: pedal edema Musculoskeletal exam: PRESENT: deformity - multiple joints involvement with arthritis Neurological exam: PRESENT: alert, awake, oriented to person, oriented to place, oriented to time, oriented to situation, CN II-XII grossly intact. ABSENT: motor sensory deficit Psychiatric exam: PRESENT: appropriate affect, normal mood. ABSENT: homicidal ideation, suicidal ideation Skin exam: PRESENT: dry, warm Results Laboratory Results: 03/13/18 04:18 03/13/18 04:18 03/08/18 03/08/18 18:10 18:10 Creatine Kinase < 20 L CK-MB (CK-2) 0.59 Troponin I < 0.012 Impressions: Chest X-Ray 03/08/18 17:46 IMPRESSION: COPD with persistent bibasilar airspace disease left greater than right. Chest/Abdomen CTA 03/08/18 18:32 IMPRESSION: 1. No acute pulmonary embolism. 2. Diffuse emphysema with areas of scarring. 3. Atelectasis versus consolidation in the lung bases. 4. No pleural effusions or pneumothorax. Assessment & Plan - Diagnosis (1) Lobar pneumonia, unspecified organism Is this a current diagnosis for this admission?: Yes (2) Decompensated COPD with exacerbation (chronic obstructive pulmonary disease) Is this a current diagnosis for this admission?: Yes (3) Chronic respiratory failure with hypoxia and hypercapnia Is this a current diagnosis for this admission?: Yes (4) HTN (hypertension) Qualifiers: Hypertension type: essential hypertension Qualified Code(s): I10 - Essential (primary) hypertension Is this a current diagnosis for this admission?: Yes (5) HLD (hyperlipidemia) Qualifiers: Hyperlipidemia type: pure hypercholesterolemia Qualified Code(s): E78.00 - Pure hypercholesterolemia, unspecified Is this a current diagnosis for this admission?: Yes (6) Chronic pain syndrome Is this a current diagnosis for this admission?: Yes (7) Long-term current use of opiate analgesic Is this a current diagnosis for this admission?: Yes - Time Time Spent with patient: 25-34 minutes Medications reviewed and adjusted accordingly: Yes Anticipated discharge: Home with Homehealth Within: Other - Inpatient Certification Based on my medical assessment, after consideration of the patient's comorbidities, presenting symptoms, or acuity I expect that the services needed warrant INPATIENT care.: Yes I certify that my determination is in accordance with my understanding of Medicare's requirements for reasonable and necessary INPATIENT services [42 CFR 412.3e].: Yes Medical Necessity: Significant Comorbidiites Make Outpatient Treatment Too Risk y, Need Close Monitoring Due to Risk of Patient Decompensation, Need For IV Fluids, Need For Continuous Telemetry Monitoring, Need for IV Antibiotics, Risk of Complication if Not Cared For in Hospital, Risk of Diagnosis Which Will Require Inpatient Eval/Care/Monitoring Post Hospital Care: 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 Consider transition to oral Levofloxacin tomorrow. Maintain on all other current medication management.
[2018-03-15] MEDS: ROPINIROLE HCL 1 MG TABLET PO SCH ×3 (09:28→17:08)
[2018-03-15] MEDS: ACETAZOLAMIDE 250 MG TABLET PO SCH ×2 (09:29→21:45)
[2018-03-15] MEDS: MONTELUKAST SODIUM 10 MG TABLET PO SCH (09:29)
[2018-03-15] MEDS: CITALOPRAM HYDROBROMIDE 20 MG TABLET PO SCH (09:29)
[2018-03-15] MEDS: IPRATROPIUM/ALBUTEROL 0.5-2.5 MG/3 ML AMPUL NEB PRN ×3 (11:56→21:21)
[2018-03-15] MEDS: NORMAL SALINE 1000 ML 1,000 ML IV PRN (14:10)
[2018-03-15] MEDS: CEFEPIME 1 GM/D5W RTU 1 GM/50 ML RTUPB IV SCH (17:08)
[2018-03-15] MEDS: ALPRAZOLAM 0.5 MG TABLET PO PRN (21:45)
[2018-03-15] MEDS: ZOLPIDEM TARTRATE 5 MG TABLET PO PRN (21:45)
[2018-03-16] MEDS: METHYLPREDNISOLONE INJ 40 MG/1 ML SDV IV SCH ×3 (01:55→17:47)
[2018-03-16] MEDS: OXYCODONE-ACETAMINOPHEN 5-325 MG TABLET PO PRN (04:57)
[2018-03-16] MEDS: ROPINIROLE HCL 1 MG TABLET PO SCH ×3 (09:45→17:47)
[2018-03-16] MEDS: MONTELUKAST SODIUM 10 MG TABLET PO SCH (09:45)
[2018-03-16] MEDS: ACETAZOLAMIDE 250 MG TABLET PO SCH ×2 (09:46→22:02)
[2018-03-16] MEDS: CITALOPRAM HYDROBROMIDE 20 MG TABLET PO SCH (09:46)
[2018-03-16] MEDS: NORMAL SALINE 1000 ML 1,000 ML IV PRN (09:47)
--- NOTE | 2018-03-16 12:47 | Pulmonary Function Test ---
Pulmonary Function Test Date of Procedure:: 03/16/18 INDICATION:: Shortness of breath Referring Provider: Dr.Abayomi Jackson - Report Spirometry: FVC 1.84 L 76% postbronchodilator 1.97 L 82% FEV1 0.83 L 46% postbronchodilator 0.91 L 51% FEV1/FVC % 45 postbronchodilator 46 predicted 75 FVC F 25-75% 0.61 L 41% postbronchodilator 0.39 L 27% Impression: Severe obstructive ventilatory defect with insignificant response to bronchodilator therapy this in and of itself does not preclude a clinical trial of bronchodilator therapy.
--- NOTE | 2018-03-16 14:34 | PDOC PROGRESS REPORT ---
Subjective Progress Note for:: 03/16/18 Subjective:: complains of shortness of breath with exertion. on 3 l/m via nasal cannula Reason For Visit: Chronic Respiratory Failure/ hypoxia Physical Exam Vital Signs: Temp Pulse Resp BP Pulse Ox 97.8 F 62 16 143/59 H 100 03/16/18 12:07 03/16/18 12:07 03/16/18 12:07 03/16/18 12:07 03/16/18 12:07 Intake & Output 03/15/18 03/16/18 03/17/18 06:59 06:59 06:59 Intake Total 3241 1590 1281 Output Total 500 1600 Balance 2741 1590 -319 Weight 53.8 kg 50.5 kg General appearance: PRESENT: cooperative, mild distress, thin, other - 2 l/m nasal cannula Head exam: PRESENT: atraumatic, normocephalic Eye exam: PRESENT: conjunctiva pink Mouth exam: PRESENT: dry mucosa, neck supple, tongue midline Neck exam: ABSENT: carotid bruit, JVD, lymphadenopathy, thyromegaly, tracheal deviation, tracheostomy Respiratory exam: PRESENT: decreased breath sounds, prolonged expiratory phas, wheezes. ABSENT: stridor Cardiovascular exam: PRESENT: RRR, +S1, +S2. ABSENT: diastolic murmur, systolic murmur Pulses: PRESENT: normal radial pulses GI/Abdominal exam: PRESENT: soft. ABSENT: tenderness Extremities exam: ABSENT: pedal edema Neurological exam: PRESENT: alert, awake, oriented to person, oriented to place, oriented to time Psychiatric exam: PRESENT: normal mood Skin exam: PRESENT: dry, normal color Results Laboratory Results: 03/13/18 04:18 03/13/18 04:18 03/08/18 03/08/18 18:10 18:10 Creatine Kinase < 20 L CK-MB (CK-2) 0.59 Troponin I < 0.012 Impressions: Chest X-Ray 03/08/18 17:46 IMPRESSION: COPD with persistent bibasilar airspace disease left greater than right. Chest/Abdomen CTA 03/08/18 18:32 IMPRESSION: 1. No acute pulmonary embolism. 2. Diffuse emphysema with areas of scarring. 3. Atelectasis versus consolidation in the lung bases. 4. No pleural effusions or pneumothorax. Assessment & Plan - Diagnosis (1) Pneumonia Qualifiers: Pneumonia type: due to unspecified organism Laterality: bilateral Lung location: lower lobe of lung Qualified Code(s): J18.1 - Lobar pneumonia, unspecified organism Is this a current diagnosis for this admission?: Yes Plan: improving (2) Chronic respiratory failure with hypoxia Is this a current diagnosis for this admission?: Yes Plan: continue current bronchodilator therapy, supplemental oxygen and bipap at night (3) COPD exacerbation Is this a current diagnosis for this admission?: Yes Plan: continue current bronchodilator therapy, oxygen and BIPAP at night. Patient would benefit from a semi electric hospital bed to keep the head elevated 30 degree due to the severity of the patients lung condition (COPD) and chances for aspiration that could lead to future hospital readmission. Patient will also qualify for a gel overlay with this bed that may be ordered through a local DME provider.
[2018-03-16] MEDS: IPRATROPIUM/ALBUTEROL 0.5-2.5 MG/3 ML AMPUL NEB PRN (16:53)
[2018-03-16] MEDS: CEFEPIME 1 GM/D5W RTU 1 GM/50 ML RTUPB IV SCH (17:48)
--- NOTE | 2018-03-16 19:06 | PDOC PROGRESS REPORT ---
Subjective Progress Note for:: 03/16/18 Subjective:: No chest pain. She reported exertional difficulty breathing. She remain on BiPAP during sleeping hours. No fever or chills. No nausea, vomiting, or abdominal pain. No fever or chills. Reason For Visit: EXACERBATED COPD,LOBAR PNEUMONIA Physical Exam Vital Signs: Temp Pulse Resp BP Pulse Ox 98.3 F 70 14 131/61 H 100 03/16/18 15:15 03/16/18 15:15 03/16/18 15:15 03/16/18 15:15 03/16/18 15:15 Intake & Output 03/15/18 03/16/18 03/17/18 06:59 06:59 06:59 Intake Total 3241 1590 1699 Output Total 500 2300 Balance 2741 1590 -601 Weight 53.8 kg 50.5 kg Physical Exam: General appearance: PRESENT: mild distress - on supplemental oxygen via cannula. Currently on BiPAP support while sleeping, thin Respiratory exam: PRESENT: decreased breath sounds, rhonchi - minimal expiratory phase Cardiovascular exam: PRESENT: RRR, +S1, +S2. ABSENT: diastolic murmur, gallop, systolic murmur GI/Abdominal exam: PRESENT: normal bowel sounds, soft. ABSENT: distended, guarding, mass, organomegaly, rebound, tenderness Extremities exam: ABSENT: pedal edema Musculoskeletal exam: PRESENT: deformity - multiple joints involvement with arthritis Neurological exam: PRESENT: alert, awake, oriented to person, oriented to place, oriented to time, oriented to situation, CN II-XII grossly intact. ABSENT: motor sensory deficit Psychiatric exam: PRESENT: appropriate affect, normal mood. ABSENT: homicidal ideation, suicidal ideation Skin exam: PRESENT: dry, warm Results Laboratory Results: 03/13/18 04:18 03/13/18 04:18 03/08/18 03/08/18 18:10 18:10 Creatine Kinase < 20 L CK-MB (CK-2) 0.59 Troponin I < 0.012 Impressions: Chest X-Ray 03/08/18 17:46 IMPRESSION: COPD with persistent bibasilar airspace disease left greater than right. Chest/Abdomen CTA 03/08/18 18:32 IMPRESSION: 1. No acute pulmonary embolism. 2. Diffuse emphysema with areas of scarring. 3. Atelectasis versus consolidation in the lung bases. 4. No pleural effusions or pneumothorax. Assessment & Plan - Diagnosis (1) Lobar pneumonia, unspecified organism Is this a current diagnosis for this admission?: Yes (2) Decompensated COPD with exacerbation (chronic obstructive pulmonary disease) Is this a current diagnosis for this admission?: Yes (3) Chronic respiratory failure with hypoxia and hypercapnia Is this a current diagnosis for this admission?: Yes (4) HTN (hypertension) Qualifiers: Hypertension type: essential hypertension Qualified Code(s): I10 - Essential (primary) hypertension Is this a current diagnosis for this admission?: Yes (5) HLD (hyperlipidemia) Qualifiers: Hyperlipidemia type: pure hypercholesterolemia Qualified Code(s): E78.00 - Pure hypercholesterolemia, unspecified Is this a current diagnosis for this admission?: Yes (6) Chronic pain syndrome Is this a current diagnosis for this admission?: Yes (7) Long-term current use of opiate analgesic Is this a current diagnosis for this admission?: Yes - Time Time Spent with patient: 25-34 minutes Medications reviewed and adjusted accordingly: Yes Anticipated discharge: Home with Homehealth Within: Other - Inpatient Certification Based on my medical assessment, after consideration of the patient's comorbidities, presenting symptoms, or acuity I expect that the services needed warrant INPATIENT care.: Yes I certify that my determination is in accordance with my understanding of Medicare's requirements for reasonable and necessary INPATIENT services [42 CFR 412.3e].: Yes Medical Necessity: Need Close Monitoring Due to Risk of Patient Decompensation, Need For IV Fluids, Need For Continuous Telemetry Monitoring, Need for Nebulizer Therapy and Monitoring of Response, Risk of Complication if Not Cared For in Hospital, Risk of Diagnosis Which Will Require Inpatient Eval/Care/Monitoring Post Hospital Care: D/C 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 Follow up on efforts to get her set up with BiPAP at home upon discharge. There is suggestion of hospital bed at home upon discharge but in view of her energy level and the fact that she lives alone she will need full electric bed.
[2018-03-16] MEDS ORDERED: ZOLPIDEM TARTRATE 5 MG TABLET ONE (21:57)
[2018-03-16] MEDS ORDERED: OXYCODONE-ACETAMINOPHEN 5-325 MG TABLET ONE (21:57)
[2018-03-16] MEDS: LEVOFLOXACIN 500 MG/D5W RTU 500 MG/100 ML RTUPB IV SCH (22:03)
[2018-03-16] MEDS ORDERED: ZOLPIDEM TARTRATE 5 MG TABLET PO PRN (22:31)
[2018-03-16] MEDS ORDERED: ALPRAZOLAM 0.5 MG TABLET PO PRN (22:31)
[2018-03-16] MEDS ORDERED: OXYCODONE-ACETAMINOPHEN 5-325 MG TABLET PO PRN (22:31)
[2018-03-17] MEDS: METHYLPREDNISOLONE INJ 40 MG/1 ML SDV IV SCH ×2 (03:28→09:36)
[2018-03-17] MEDS: ACETAZOLAMIDE 250 MG TABLET PO SCH (09:36)
[2018-03-17] MEDS: ROPINIROLE HCL 1 MG TABLET PO SCH ×2 (09:36→13:39)
[2018-03-17] MEDS: CITALOPRAM HYDROBROMIDE 20 MG TABLET PO SCH (09:36)
[2018-03-17] MEDS: MONTELUKAST SODIUM 10 MG TABLET PO SCH (09:36)
--- NOTE | 2018-03-17 15:03 | PDOC DISCHARGE SUMMARY ---
General - Admit/Disc Date/PCP Admission Date/Primary Care Provider: 03/08/18 19:53 SARITA CASTILLO Discharge Date: 03/17/18 - Discharge Diagnosis (1) Lobar pneumonia, unspecified organism Is this a current diagnosis for this admission?: Yes (2) Decompensated COPD with exacerbation (chronic obstructive pulmonary disease) Is this a current diagnosis for this admission?: Yes (3) Chronic respiratory failure with hypoxia and hypercapnia Is this a current diagnosis for this admission?: Yes (4) HTN (hypertension) Is this a current diagnosis for this admission?: Yes (5) HLD (hyperlipidemia) Is this a current diagnosis for this admission?: Yes (6) Chronic pain syndrome Is this a current diagnosis for this admission?: Yes (7) Long-term current use of opiate analgesic Is this a current diagnosis for this admission?: Yes - Additional Information Prescriptions: Prednisone [Deltasone 10 mg Tablet] 10 mg PO ASDIR PRN #15 tablet PRN Reason: Home Medications: Acetazolamide [Diamox 250 mg Tab] 250 mg PO Q12 03/08/18 Alprazolam [Xanax 0.5 mg Tablet] 0.5 mg PO Q8HP PRN 03/08/18 Buspirone HCl [Buspar 15 mg Tablet] 7.5 mg PO Q8 03/08/18 Citalopram Hydrobromide [Celexa 40 mg Tablet] 40 mg PO DAILY 03/08/18 Fluticasone/Umeclidin/Vilanter [Trelegy 100-62.5-25 Mcg Ellipta 14 Dose/Dpi] 1 puff IH DAILY 03/08/18 Ipratropium/Albuterol Sulfate [Combivent Respimat 4 gm Mdi] 1 puff IH Q4HP PRN 03/08/18 Montelukast Sodium [Singulair] 10 mg PO DAILY 03/08/18 Oxycodone HCl/Acetaminophen [Endocet 7.5-325 mg Tablet] 1 tab PO Q8HP PRN 03/08/18 Ropinirole HCl [Requip] 1 mg PO TID 03/08/18 Zolpidem Tartrate [Ambien 5 mg Tablet] 5 mg PO HSP PRN 03/08/18 Prednisone [Deltasone 10 mg Tablet] 10 mg PO ASDIR PRN #15 tablet 03/17/18 History of Present Illness Patient complains of: Progressively short of breath History of Present Illness: SUSAN BINGHAM is a 77 year old female patient known to my practice and recently discharged from this hospital follow admission for pneumonia and exacerbated COPD. Patient reported that over the last couple of days she became progressively short of breath more than her usual level due to end stage COPD with oxygen dependency. She reported worsening chest congestion with fever and productive coughing with sputum production. She reported compliance with her medication and home bronchodilators therapy. She denied any chest pain. She reported episodes of palpitation, worsening generalized weakness, poor appetite and oral intake. No nausea or vomiting. No abdominal pain, constipation or diarrhea. Her initial evaluation in the ED was remarkable for respiratory distress, tachypnea and tachycardia with concern for pulmonary embolism. Her CTA chest was negative for pulmonary embolism but suggested bilateral lower lobe atelectasis versus consolidation. Her morbidities include Hypertension, Hyperlipidemia, Pulmonary Embolism, COPD with chronic respiratory failure, Asthma, Gastroesophageal reflux, sleep apnea, and anxiety. She was advised hospitalization for further evaluation and management. Hospital Course Hospital Course: She was managed with triple antibiotic coverage initially due to concern for hospital acquired pneumonia. Patient was supported ventilatory jeff with BiPAP due to COPD with associated hypercapnia and overall fatigue due to increase work of breathing. Her blood culture was eventually no growth x 5 days and her antibiotic coverage was adjusted to cover for her most recent sputum culture findings of Pseudomonas Aeruginosa. She remain on adequate coverage dose of IV Cefepime and Levofloxacin. She was seen in consultation by Dr. Rosen, wood room hand, with recommendation to discharge home of BiPAP and semi-electric hospital bed. She will be discharged home today with home health service incl [facility] visiting nurse and physical therapy service. She will followup in the office as instructed upon discharge. Physical Exam Vital Signs: Temp Pulse Resp BP Pulse Ox 97.7 F 96 14 122/48 L 97 03/17/18 12:27 03/17/18 14:00 03/17/18 12:29 03/17/18 12:27 03/17/18 12:29 Pulse Oximeter Nocturnal Start: 03/16/18 17:02 Freq: RTQ4 Status: Complete Protocol: Document 03/17/18 04:00 SFL (Rec: 03/17/18 05:05 SFL [id number]) Nocturnal Pulse Oximetry Equipment Usage Equipment in Use Oxygen Delivery Method (includes room Nasal Cannula air) O2 Sat by Pulse Oximetry (92-100) 95 Continuous Pulse Oximeter Set Up No Continuous SpO2 Discontinued No Continuous SpO2 Machine # 2 Intake & Output 03/16/18 03/17/18 03/18/18 06:59 06:59 06:59 Intake Total 1590 3702 Output Total 2300 Balance 1590 1402 Weight 50.5 kg 56.4 kg Physical Exam: General appearance: PRESENT: mild distress - on supplemental oxygen via cannula., thin Eye exam: ABSENT: conjunctiva pale, pallor, scleral icterus Neck exam: PRESENT: full ROM. ABSENT: carotid bruit, JVD, lymphadenopathy Respiratory exam: PRESENT: decreased breath sounds at lung bases Cardiovascular exam: PRESENT: RRR, +S1, +S2. ABSENT: diastolic murmur, gallop, systolic murmur GI/Abdominal exam: PRESENT: normal bowel sounds, soft. ABSENT: distended, guarding, mass, organomegaly, rebound, tenderness Extremities exam: ABSENT: pedal edema Musculoskeletal exam: PRESENT: deformity - multiple joints involvement with arthritis Neurological exam: PRESENT: alert, awake, oriented to person, oriented to place, oriented to time, oriented to situation, CN II-XII grossly intact. ABSENT: motor sensory deficit Psychiatric exam: PRESENT: appropriate affect, normal mood. ABSENT: homicidal ideation, suicidal ideation Skin exam: PRESENT: dry, warm Results Laboratory Results: 03/13/18 04:18 03/13/18 04:18 03/08/18 03/08/18 18:10 18:10 Creatine Kinase < 20 L CK-MB (CK-2) 0.59 Troponin I < 0.012 Impressions: Chest X-Ray 03/08/18 17:46 IMPRESSION: COPD with persistent bibasilar airspace disease left greater than right. Chest/Abdomen CTA 03/08/18 18:32 IMPRESSION: 1. No acute pulmonary embolism. 2. Diffuse emphysema with areas of scarring. 3. Atelectasis versus consolidation in the lung bases. 4. No pleural effusions or pneumothorax. Qualifiers - * PATIENT BEING DISCHARGED WITH ANY OF THE FOLLOWING DIAGNOSIS: No Plan Discharge Plan: Discharge home today. Follow up in the office as instructed upon discharge.
[2018-03-17 15:28] VITALS: BP 120/55
== END 2018-03-17 16:06 | disposition home health service (06) | DRG 190 ==
LOC: ER 16:58 → EH 19:53 → 3S 23:32
PROVIDERS: ADMIT Internal Medicine Geriatric Medicine; ATTEND Internal Medicine Geriatric Medicine
PROC: 5A09557 Assistance with Respiratory Ventilation, Greater than 96 Consecutive Hours, Continuous Positive Airway Pressure (ICD-10-PCS; principal; 2018-03-08)
DX: J44.0 Chronic obstructive pulmonary disease with (acute) lower respiratory infection (principal); J18.9 Pneumonia, unspecified organism; J96.11 Chronic respiratory failure with hypoxia; J96.12 Chronic respiratory failure with hypercapnia; J44.1 Chronic obstructive pulmonary disease with (acute) exacerbation; I10 Essential (primary) hypertension; G89.4 Chronic pain syndrome; E78.5 Hyperlipidemia, unspecified; K21.9 Gastro-esophageal reflux disease without esophagitis; F41.9 Anxiety disorder, unspecified; G47.30 Sleep apnea, unspecified; Z99.81 Dependence on supplemental oxygen; Z86.711 Personal history of pulmonary embolism; Z95.0 Presence of cardiac pacemaker; Z96.642 Presence of left artificial hip joint; Z82.49 Family history of ischemic heart disease and other diseases of the circulatory system; Z79.899 Other long term (current) drug therapy; Z88.1 Allergy status to other antibiotic agents; Z79.891 Long term (current) use of opiate analgesic; Z86.14 Personal history of Methicillin resistant Staphylococcus aureus infection
CPT/HCPCS: 36415; 36591; 36600; 71045; 71275; 80053; 80202; 81001; 82550; 82553; 82803; 83605; 84484; 85025; 85610; 85730; 87040; 93005; 93010; 94010; 94640; 94660; 94762; 99291; J0692; J1956; J2920; J2930; J3370; J3490; J7030; J7040; J7060; J7620

== ENCOUNTER 2018-04-02 13:56 | Inpatient (IN) | payer MEDICARE, OTHER ==
[2018-04-02] MEDS ORDERED: MAGNESIUM SULFATE/D5W 1 GM/100 ML RTUPB IV ONE ×2 (13:59→17:07)
[2018-04-02] MEDS ORDERED: METHYLPREDNISOLONE INJ 125 MG/2 ML SDV ONE (13:59)
[2018-04-02] MEDS ORDERED: IPRATROPIUM/ALBUTEROL 0.5-2.5 MG/3 ML AMPUL NEB ONE (14:00)
[2018-04-02] MEDS ORDERED: NORMAL SALINE 1000 ML 1,000 ML IV ONE (14:02)
[2018-04-02] MEDS ORDERED: VANCOMYCIN HCL INJ 1000 MG VIAL ONE (14:04)
[2018-04-02 14:16] LABS: ABSOLUTE MONOCYTES (AUTO) 1.9 10^3/uL (0.1-1.4); ABSOLUTE NEUT (AUTO) 7.5 10^3/uL (1.7-8.2); BASOPHILS % (AUTO) 0.1 % (0-2); EOSINOPHILS % (AUTO) 0.1 % (0-6); HEMATOCRIT 36.7 % (36.0-47.0); HEMOGLOBIN 11.7 g/dL (12.0-15.5); LYMPHOCYTES % (AUTO) 17.3 % (13-45); MEAN CORPUSCULAR HEMOGLOBIN 27.9 pg (27.0-33.4); MEAN CORPUSCULAR HGB CONC 31.9 g/dL (32.0-36.0); MEAN CORPUSCULAR VOLUME 87 fl (80-97); MONOCYTES % (AUTO) 16.7 % (3-13); PLATELET COUNT 670 10^3/uL (150-450); RED BLOOD COUNT 4.21 10^6/uL (3.72-5.28); RED CELL DISTRIBUTION WIDTH 20.7 % (11.5-14.0); SEGMENTED NEUTROPHILS % (AUTO) 65.8 % (42-78); TOTAL CELLS COUNTED % (AUTO) 100 %; WHITE BLOOD COUNT 11.4 10^3/uL (4.0-10.5)
[2018-04-02 14:29] LABS: ALANINE AMINOTRANSFERASE 7 U/L (9-52); ALKALINE PHOSPHATASE 106 U/L (38-126); ANION GAP 9 (5-19); ASPARTATE AMINO TRANSFERASE 36 U/L (14-36); BILIRUBIN,DIRECT 0.6 mg/dL (0.0-0.4); BILIRUBIN,TOTAL 0.7 mg/dL (0.2-1.3); BLOOD UREA NITROGEN 16 mg/dL (7-20); CALCIUM 9.3 mg/dL (8.4-10.2); CARBON DIOXIDE 24 mmol/L (22-30); CHLORIDE 108 mmol/L (98-107); CREATINE KINASE 32 U/L (30-135); GLUCOSE 158 mg/dL (75-110); POTASSIUM 5.7 mmol/L (3.6-5.0); SODIUM 140.5 mmol/L (137-145)
[2018-04-02 14:41] LABS: CREATINE KINASE MB 0.82 ng/mL (<4.55)
[2018-04-02 14:43] LABS: TROPONIN I < 0.012 ng/mL
--- NOTE | 2018-04-02 14:49 | RADIOLOGY REPORT (SQ) ---
EXAM DESCRIPTION: CHEST SINGLE VIEW COMPLETED DATE/TIME: 04/02/2018 2:38 pm REASON FOR STUDY: sob COMPARISON: 03/08/2018 TECHNIQUE: Single frontal radiographic view of the chest acquired. NUMBER OF VIEWS: One view. LIMITATIONS: None. FINDINGS: LUNGS AND PLEURA: No pneumothorax. Mild increased interstitial prominence, early intersti tial edema versus atypical infectious process. No consolidation or pleural effusion. MEDIASTINUM AND HILAR STRUCTURES: Stable. HEART AND VASCULAR STRUCTURES: Stable. BONES: No acute findings. HARDWARE: Right chest port. Cardiac pacer. OTHER: No other significant finding. IMPRESSION: Mild increased interstitial prominence, early interstitial edema versus atypical infecti ous process. No consolidation or pleural effusion. TECHNICAL DOCUMENTATION: JOB ID: [id number] 2010 [employer]- All Rights Reserved Reading location - IP/workstation name: [email or web address]
[2018-04-02] MEDS ORDERED: PIPERACILLIN/TAZOBACTAM 3.375 GM VIAL IV ONE (15:11)
[2018-04-02] MEDS ORDERED: VANCOMYCIN HCL INJ 1000 MG VIAL IV ONE (15:11)
--- NOTE | 2018-04-02 15:52 | EKG REPORT ---
SEVERITY:- ABNORMAL ECG - SINUS TACHYCARDIA MULTIPLE VENTRICULAR PREMATURE COMPLEXES NONSPECIFIC REPOL ABNORMALITY, DIFFUSE LEADS : Confirmed by: Ramakrishna Gerber MD 02-Apr-2018 15:52:02
[2018-04-02 16:25] LABS: INTERNATIONAL RATION (INR) 1.28; PROTHROMBIN TIME 16.6 SEC (11.4-15.4)
[2018-04-02 16:30] LABS: VENOUS BLOOD BASE EXCESS -5.4 mmol/L; VENOUS BLOOD HCO3 21.6 mmol/L (20-32); VENOUS BLOOD PCO2 47.5 mmHg (35-63); VENOUS BLOOD PH 7.28 (7.30-7.42)
--- NOTE | 2018-04-02 17:00 | ER Document Report ---
ED General - General Chief Complaint: Shortness Of Breath Stated Complaint: SHORTNESS OF BREATH Time Seen by Provider: 04/02/18 14:06 Mode of Arrival: Medic Information source: Patient, Emergency Med Personnel Notes: 77-year-old female with COPD, hypertension, hyperlipidemia, chronic respiratory failure who is on home oxygen presents via EMS in respiratory distress. Per EMS patient was found hypoxic, tachypneic with significant accessory muscle use. Patient did receive 3 DuoNeb's prior to arrival. Patient reports a recent admission for pneumonia and was discharged on March 17, 2018. But due to significant distress was not able to provide me much information before having to be placed on BiPAP for increased work of breathing. family states she had been doing well until this morning when she developed increased work of breathing, productive cough. Family also states she does have a BiPAP machine at home but they do not feel that it is working appropriately. TRAVEL OUTSIDE OF THE [place] IN LAST 30 DAYS: No - HPI Onset: This morning Onset/Duration: Sudden Quality of pain: No pain Severity: Severe Pain Level: Denies Associated symptoms: Nonproductive cough, Shortness of breath. denies: Chest pain, Fever, Nausea, Vomiting Exacerbated by: Coughing Relieved by: Denies Similar symptoms previously: Yes Recently seen / treated by doctor: Yes - Recent discharge from [facility] [place] - Related Data Allergies/Adverse Reactions: erythromycin base [Erythromycin Base] Allergy (Unknown, Verified 02/14/18 15:31) Past Medical History - General Information source: Patient, [facility] - Social History Smoking Status: Former Smoker Frequency of alcohol use: None Drug Abuse: None Lives with: Family Family History: CAD - This is in not immediate family members., DM, Hyperlipidemia, Hypertension Patient has suicidal ideation: No Patient has homicidal ideation: No - Past Medical History Cardiac Medical History: Reports: Hx Hypercholesterolemia, Hx Hypertension, Hx Pulmonary Embolism Denies: Hx Coronary Artery Disease, Hx Heart Attack Pulmonary Medical History: Reports: Hx Asthma, Hx Bronchitis, Hx COPD, Hx Pneum onia, Hx Respiratory Failure, Hx Sleep Apnea Neurological Medical History: Denies: Hx Cerebrovascular Accident, Hx Seizures Endocrine Medical History: Denies: Hx Graves' Disease Renal/ Medical History: Reports: Hx Kidney Stones - 20 year ago. Denies: Hx Ovarian Cysts, Hx Peritoneal Dialysis, Hx Pelvic Inflammatory Disease Malignancy Medical History: GI Medical History: Reports: Hx Diverticulitis, Hx Gastroesophageal Reflux Disease, Hx Ulcer. Denies: Hx Irritable Bowel, Hx Liver Failure, Hx Pancreatitis Musculoskeletal Medical History: Denies Hx Arthritis, Denies Hx Multiple Sclerosis, Denies Hx Muscular Dystrophy Skin Medical History: Reports Hx MRSA Psychiatric Medical History: Reports: Hx Depression Denies: Hx Schizophrenia Traumatic Medical History: Denies: Hx Fractures, Hx Gunshot Wound Infectious Medical History: Denies: Hx HIV Past Surgical History: Reports: Hx Bowel Surgery - Old colostomy from a tear intestines resectioned, Hx Cardiac Surgery - pacemaker, Hx Colostomy - with reversal, 6 years ago, Hx Hysterectomy, Hx Orthopedic Surgery - left hip replacement 11/04/2014, Hx Pacemaker - Immunizations Immunizations up to date: Yes Hx Diphtheria, Pertussis, Tetanus Vaccination: No Hx Pneumococcal Vaccination: 06/04/11 Review of Systems - Review of Systems Notes: REVIEW OF SYSTEMS: CONSTITUTIONAL : Denies fever, chills, or sweats. Denies weight loss. EENT: Denies visual changes, eye pain. Denies sore throat, oral lesions, difficulty swallowing. CARDIOVASCULAR: Denies chest pain. Denies palpitations. Denies lower extremity edema. RESPIRATORY: + Cough, shortness of breath, wheezing, increased work of breathing GASTROINTESTINAL: Denies abdominal pain or distention. Denies nausea, vomiting, or diarrhea. Denies blood in vomitus, stools, or per rectum. Denies black, tarry stools. Denies constipation. GENITOURINARY: Denies difficulty urinating, painful urination, frequency, blood in urine, or vaginal discharge. MUSCULOSKELETAL: Denies back or neck pain or stiffness. Denies joint pain or swelling. SKIN: Denies rash, lesions or sores. HEMATOLOGIC : Denies easy bruising or bleeding. LYMPHATIC: Denies swollen glands. NEUROLOGICAL: Denies confusion or altered mental status. Denies loss of consciousness. Denies dizziness or lightheadedness. Denies headache. Denies weakness or paralysis. Denies problems difficulty with ambulation, slurred speech. Denies sensory loss, numbness, or tingling. Denies seizures. PSYCHIATRIC: Denies anxiety or stress. Denies depression, suicidal ideation, or homicidal ideation. Denies visual or auditory hallucinations. Physical Exam - Vital signs Vitals: Temp Pulse Resp BP Pulse Ox 99.6 F 130 H 26 H 122/69 96 04/02/18 14:16 04/02/18 14:16 04/02/18 14:16 04/02/18 14:16 04/02/18 14:16 - Notes Notes: PHYSICAL EXAMINATION: GENERAL: Ill-appearing, tripoding, significant distress. HEAD: Atraumatic, normocephalic. EYES: Pupils equal round and reactive to light, extraocular movements intact, conjunctiva are normal. ENT: Nares patent, oropharynx clear without exudates. Dry mucous membranes. NECK: Normal range of motion, supple without lymphadenopathy LUNGS: Diffuse wheezing in all lung martínez. Significant increased work of breathing, accessory muscle use. Inability to speak in full sentences. Tripoding. HEART: Tachycardic regular rhythm without murmurs ABDOMEN: Soft, nontender, nondistended abdomen. No guarding, no rebound. No masses appreciated. Female : deferred Musculoskeletal: Normal range of motion, no pitting or edema. No cyanosis. NEUROLOGICAL: Cranial nerves grossly intact. Normal sensory, motor exams PSYCH: anxious SKIN: Warm, Dry, normal turgor, no rashes or lesions noted. Course - Re-evaluation Re-evalutation: 04/02/18 21:37 Laboratory 04/02/18 04/02/18 04/02/18 14:05 14:05 14:05 WBC 11.4 H RBC 4.21 Hgb 11.7 L Hct 36.7 MCV 87 MCH 27.9 MCHC 31.9 L RDW 20.7 H Plt Count 670 H Seg Neutrophils % 65.8 Lymphocytes % 17.3 Monocytes % 16.7 H Eosinophils % 0.1 Basophils % 0.1 Absolute Neutrophils 7.5 Absolute Lymphocytes 2.0 Absolute Monocytes 1.9 H Absolute Eosinophils 0.0 Absolute Basophils 0.0 PT Cancelled INR Cancelled VBG pH VBG pCO2 VBG HCO3 VBG Base Excess Sodium 140.5 Potassium 5.7 H Chloride 108 H Carbon Dioxide 24 Anion Gap 9 BUN 16 Creatinine 0.81 Est GFR ( Amer) > 60 Est GFR (Non-Af Amer) > 60 Glucose 158 H Lactic Acid Calcium 9.3 Total Bilirubin 0.7 Direct Bilirubin 0.6 H Neonat Total Bilirubin Not Reportable Neonat Direct Bilirubin Not Reportable Neonat Indirect Bili Not Reportable AST 36 ALT 7 L Alkaline Phosphatase 106 Creatine Kinase 32 CK-MB (CK-2) Troponin I NT-Pro-B Natriuret Pep Total Protein 8.0 Albumin 4.0 04/02/18 04/02/18 04/02/18 14:05 14:05 14:52 WBC RBC Hgb Hct MCV MCH MCHC RDW Plt Count Seg Neutrophils % Lymphocytes % Monocytes % Eosinophils % Basophils % Absolute Neutrophils Absolute Lymphocytes Absolute Monocytes Absolute Eosinophils Absolute Basophils PT INR VBG pH VBG pCO2 VBG HCO3 VBG Base Excess Sodium Potassium Chloride Carbon Dioxide Anion Gap BUN Creatinine Est GFR ( Amer) Est GFR (Non-Af Amer) Glucose Lactic Acid 1.4 Calcium Total Bilirubin Direct Bilirubin Neonat Total Bilirubin Neonat Direct Bilirubin Neonat Indirect Bili AST ALT Alkaline Phosphatase Creatine Kinase CK-MB (CK-2) 0.82 Troponin I < 0.012 NT-Pro-B Natriuret Pep 2270 H Total Protein Albumin 04/02/18 04/02/18 04/02/18 14:52 14:52 16:00 WBC RBC Hgb Hct MCV MCH MCHC RDW Plt Count Seg Neutrophils % Lymphocytes % Monocytes % Eosinophils % Basophils % Absolute Neutrophils Absolute Lymphocytes Absolute Monocytes Absolute Eosinophils Absolute Basophils PT Cancelled INR Cancelled VBG pH Cancelled 7.28 L VBG pCO2 Cancelled 47.5 VBG HCO3 Cancelled 21.6 VBG Base Excess Cancelled -5.4 Sodium Potassium Chloride Carbon Dioxide Anion Gap BUN Creatinine Est GFR ( Amer) Est GFR (Non-Af Amer) Glucose Lactic Acid Calcium Total Bilirubin Direct Bilirubin Neonat Total Bilirubin Neonat Direct Bilirubin Neonat Indirect Bili AST ALT Alkaline Phosphatase Creatine Kinase CK-MB (CK-2) Troponin I NT-Pro-B Natriuret Pep Total Protein Albumin 04/02/18 16:00 WBC RBC Hgb Hct MCV MCH MCHC RDW Plt Count Seg Neutrophils % Lymphocytes % Monocytes % Eosinophils % Basophils % Absolute Neutrophils Absolute Lymphocytes Absolute Monocytes Absolute Eosinophils Absolute Basophils PT 16.6 H INR 1.28 VBG pH VBG pCO2 VBG HCO3 VBG Base Excess Sodium Potassium Chloride Carbon Dioxide Anion Gap BUN Creatinine Est GFR ( Amer) Est GFR (Non-Af Amer) Glucose Lactic Acid Calcium Total Bilirubin Direct Bilirubin Neonat Total Bilirubin Neonat Direct Bilirubin Neonat Indirect Bili AST ALT Alkaline Phosphatase Creatine Kinase CK-MB (CK-2) Troponin I NT-Pro-B Natriuret Pep Total Protein Albumin Chest X-Ray 04/02/18 14:03 IMPRESSION: Mild increased interstitial prominence, early interstitial edema versus atypical infectious process. No consolidation or pleural effusion. Temp Pulse Resp BP Pulse Ox 99.6 F 130 H 19 115/62 99 04/02/18 14:16 04/02/18 14:16 04/02/18 21:01 04/02/18 21:00 04/02/18 21:01 77-year-old female with chronic respiratory failure presents and significant respiratory distress via EMS. EMS reported that upon their arrival patient was hypoxic with O2 sats in the mid 80s. Patient did receive 3 DuoNeb's prior to arrival to the emergency department. Patient was placed on sewer and inspector and EKG was obtained which showed the patient to be in sinus tachycardia. Patient was immediately transferred to our BiPAP machine and did display decreased work of breathing. Did discuss intubation with the who states "I will get better on this" pointing to the BiPAP machine. Patient was administered continuous albuterol treatment, Solu-Medrol, magnesium, vancomycin, Zosyn. Patient did have a recent discharge from the hospital for pneumonia. CBC shows mild leukocytosis, no anemia. CMP does show a potassium of 5.7 but without EKG changes. We will continue to monitor. VBG does show the patient to be acidotic. Cardiac and lactate within normal limits. Chest x-ray obtained and showed mild interstitial edema versus atypical infection. No evidence of pleural effusion or consolidation. On reevaluation patient is resting more comfortably. Respiratory rate has decreased and patient family now at the bedside.'s discussed case with Dr. Avendano on-call for Dr. Jackson and he is familiar with the patient. He recommends IMCU admission. Patient and family comfortable with this. - Vital Signs Vital signs: Temp Pulse Resp BP Pulse Ox 99.6 F 130 H 19 115/62 99 04/02/18 14:16 04/02/18 14:16 04/02/18 21:01 04/02/18 21:00 04/02/18 21:01 - Laboratory Result Diagrams: 04/02/18 14:05 04/02/18 14:05 Laboratory results interpreted by me: 04/02/18 04/02/18 04/02/18 14:05 14:05 14:05 WBC 11.4 H Hgb 11.7 L MCHC 31.9 L RDW 20.7 H Plt Count 670 H Monocytes % 16.7 H Absolute Monocytes 1.9 H PT VBG pH Potassium 5.7 H Chloride 108 H Glucose 158 H Direct Bilirubin 0.6 H ALT 7 L NT-Pro-B Natriuret Pep 2270 H 04/02/18 04/02/18 16:00 16:00 WBC Hgb MCHC RDW Plt Count Monocytes % Absolute Monocytes PT 16.6 H VBG pH 7.28 L Potassium Chloride Glucose Direct Bilirubin ALT NT-Pro-B Natriuret Pep - Diagnostic Test Radiology reviewed: Image reviewed, Reports reviewed - EKG Interpretation by Ar EKG shows normal: Sinus rhythm Rate: Tachycardia Rhythm: PVC's When compared to previous EKG there are: No significant change Critical Care Note - Critical Care Note Total time excluding time spent on procedures (mins): 40 - Minutes of critical care time spent in direct contact evaluating and reevaluating the patient, treating symptoms, reviewing labs and studies and speaking with family and consultants excluding any procedures Discharge - Discharge Clinical Impression: Hypoxia, Decompensated COPD with exacerbation (chronic obstructive pulmonary disease), Tachypnea, [id number] syndrome Respiratory failure Qualifiers: Chronicity: chronic Respiratory failure complication: hypoxia Qualified Code(s): J96.11 - Chronic respiratory failure with hypoxia Condition: Fair Disposition: ADMITTED INPATIENT Admitting Provider: Renetta Unit Admitted: TRINI
[2018-04-02] MEDS ORDERED: METHYLPREDNISOLONE INJ 125 MG/2 ML SDV IV ONE (17:06)
[2018-04-02 18:23] LABS: APPEARANCE,URINE SLIGHTLY-CLOUDY; BILIRUBIN,URINE NEGATIVE (NEGATIVE); COLOR,URINE YELLOW; GLUCOSE, URINE NEGATIVE (NEGATIVE); KETONES,URINE NEGATIVE (NEGATIVE); LEUKOCYTE ESTERASE,URINE NEGATIVE (NEGATIVE); NITRITE,URINE NEGATIVE (NEGATIVE); PROTEIN,URINE 30 mg/dL (NEGATIVE); URINE SPECIFIC GRAVITY 1.021; UROBILINOGEN,URINE NEGATIVE mg/dL (<2.0)
[2018-04-02] MEDS: METHYLPREDNISOLONE INJ 125 MG/2 ML SDV IV SCH (21:31)
[2018-04-02 21:40] LABS: INTERNATIONAL RATION (INR) 1.21; PROTHROMBIN TIME 15.9 SEC (11.4-15.4)
[2018-04-02 21:41] LABS: PARTIAL THROMBOPLASTIN TIME 39.7 SEC (23.5-35.8)
[2018-04-02 21:45] LABS: URINE AMPHETAMINES SCREEN NEGATIVE; URINE BARBITURATES SCREEN NEGATIVE; URINE BENZODIAZEPINES SCREEN UNCONFIRMED POSITIVE; URINE COCAINE SCREEN NEGATIVE; URINE MARIJUANA (THC) SCREEN NEGATIVE; URINE METHADONE SCREEN NEGATIVE; URINE PHENCYCLIDINE SCREEN NEGATIVE
[2018-04-02 21:54] LABS: LIPASE 182.8 U/L (23-300); PHOSPHORUS 4.2 mg/dL (2.5-4.5)
[2018-04-02 22:00] LABS: ARTERIAL BLOOD BASE EXCESS -3.4 mmol/L; ARTERIAL BLOOD H2CO3 1.23 mmol/L (1.05-1.35); ARTERIAL BLOOD O2 SATURATION 97.9 % (94-98); ARTERIAL BLOOD PH 7.35 (7.35-7.45); ARTERIAL BLOOD PO2 112.5 mmHg (80-100); ARTERIAL BLOOD TOTAL CO2 23.2 mmol/L (21-25)
[2018-04-02 22:01] LABS: ARTERIAL BLOOD FIO2 35%
[2018-04-02 22:07] LABS: CREATINE KINASE MB 0.72 ng/mL (<4.55)
[2018-04-02 22:08] LABS: TROPONIN I < 0.012 ng/mL
[2018-04-02 22:11] LABS: FREE T4 (FREE THYROXINE) 1.56 ng/dL (0.78-2.19)
[2018-04-02 22:25] LABS: THYROID STIMULATING HORMONE 0.08 uIU/mL (0.47-4.68)
[2018-04-02] MEDS: IPRATROPIUM/ALBUTEROL 0.5-2.5 MG/3 ML AMPUL NEB SCH (22:52)
[2018-04-03] MEDS: IPRATROPIUM/ALBUTEROL 0.5-2.5 MG/3 ML AMPUL NEB SCH ×4 (02:02→10:56)
[2018-04-03 03:52] LABS: ABSOLUTE LYMPHOCYTES (AUTO) 0.9 10^3/uL (0.5-4.7); ABSOLUTE MONOCYTES (AUTO) 0.5 10^3/uL (0.1-1.4); ABSOLUTE NEUT (AUTO) 7.6 10^3/uL (1.7-8.2); HEMATOCRIT 31.4 % (36.0-47.0); HEMOGLOBIN 10.4 g/dL (12.0-15.5); LYMPHOCYTES % (AUTO) 9.6 % (13-45); MEAN CORPUSCULAR HEMOGLOBIN 28.1 pg (27.0-33.4); MEAN CORPUSCULAR HGB CONC 33.1 g/dL (32.0-36.0); MEAN CORPUSCULAR VOLUME 85 fl (80-97); MONOCYTES % (AUTO) 5.5 % (3-13); PLATELET COUNT 698 10^3/uL (150-450); RED BLOOD COUNT 3.69 10^6/uL (3.72-5.28); RED CELL DISTRIBUTION WIDTH 18.8 % (11.5-14.0); SEGMENTED NEUTROPHILS % (AUTO) 84.9 % (42-78); TOTAL CELLS COUNTED % (AUTO) 100 %
[2018-04-03 04:12] LABS: ALANINE AMINOTRANSFERASE < 6 U/L (9-52); ALBUMIN 2.9 g/dL (3.5-5.0); ALKALINE PHOSPHATASE 95 U/L (38-126); ANION GAP 7 (5-19); ASPARTATE AMINO TRANSFERASE 11 U/L (14-36); BILIRUBIN,DIRECT 0.2 mg/dL (0.0-0.4); BILIRUBIN,TOTAL 0.2 mg/dL (0.2-1.3); BLOOD UREA NITROGEN 16 mg/dL (7-20); CALCIUM 8.9 mg/dL (8.4-10.2); CARBON DIOXIDE 22 mmol/L (22-30); CHLORIDE 113 mmol/L (98-107); CHOLESTEROL 134.05 mg/dL (0-200); GLUCOSE 142 mg/dL (75-110); SODIUM 142.4 mmol/L (137-145); TOTAL PROTEIN 6.2 g/dL (6.3-8.2); TRIGLYCERIDES 59 mg/dL (<150)
[2018-04-03 04:28] LABS: DIRECT LDL 71 mg/dL (<100)
[2018-04-03 04:46] LABS: CREATINE KINASE MB 0.86 ng/mL (<4.55)
[2018-04-03 04:58] LABS: TROPONIN I < 0.012 ng/mL
[2018-04-03] MEDS: METHYLPREDNISOLONE INJ 125 MG/2 ML SDV IV SCH ×3 (05:57→21:11)
[2018-04-03] MEDS: ENOXAPARIN SODIUM INJ 40 MG/0.4 ML DISP.SYRIN SUBCUT SCH (09:09)
[2018-04-03 11:50] LABS: CREATINE KINASE MB 0.98 ng/mL (<4.55)
[2018-04-03] MEDS: LEVALBUTEROL HCL NEB 1.25 MG/3 ML AMPUL NEB SCH ×3 (11:50→20:00)
[2018-04-03 11:52] LABS: TROPONIN I < 0.012 ng/mL
[2018-04-03] MEDS ORDERED: OXYCODONE HCL PO PRN (13:38)
[2018-04-03] MEDS ORDERED: ACETAMINOPHEN PO PRN (13:38)
[2018-04-03] MEDS ORDERED: ROPINIROLE HCL 1 MG TABLET PO SCH (14:00)
[2018-04-03] MEDS ORDERED: (PENDING PHARMACY ID) (Buspirone Hcl [Buspar 15 Mg Tablet] 7.5 MG) PO SCH (14:00)
[2018-04-03] MEDS: BUSPIRONE HCL 10 MG TABLET PO SCH ×2 (14:15→21:11)
[2018-04-03] MEDS: ROPINIROLE HCL 1 MG TABLET PO SCH ×2 (14:15→21:11)
[2018-04-03] MEDS: ALPRAZOLAM 0.5 MG TABLET PO PRN (14:18)
--- NOTE | 2018-04-03 18:44 | PDOC H&P ---
History of Present Illness Admission Date/PCP: 04/02/18 17:49 SARITA ANNA Patient complains of: Difficulty with breathing History of Present Illness: SUSAN BINGHAM is a 77 year old female known to my practice who was discharged from this facility for exacerbated COPD and pneumonia. Patient was brought to the ED by EMS due to onset of exacerbated difficulty with breathing on the day of her presentation. She has baseline end stage COPD on BiPAP support at home. Patient reported compliance with her medication and supplemental oxygen usage at home. There was associated chest congestion, productive cough with brownish to yellow sputum production. She denied any definite fever but reported been cold all the time.Her initial evaluation in the ED was significant for increase work of breathing with resultant placement of BiPAP support. She was advised hospitalization for further evaluation and management. Her morbidities include chronic respiratory failure, end-stage COPD on supplemental oxygen, Hypertension, Hyperlipidemia, [id number]-[id number]-Ctlit syndrome s/p pacemaker placement. Past Medical History Cardiac Medical History: Reports: Hyperlipidema, Hypertension, Pulmonary Embolism Denies: Coronary Artery Disease, Myocardial Infarction Pulmonary Medical History: Reports: Asthma, Bronchitis, Chronic Obstructive Pulmonary Disease (COPD), Pneumonia, Respiratory Failure, Sleep Apnea Neurological Medical History: Denies: Seizures Endocrine Medical History: Renal/ Medical History: Malignancy Medical History: GI Medical History: Reports: Diverticulitis, Gastroesophageal Reflux Disease Musculoskeltal Medical History: Denies: Arthritis Psychiatric Medical History: Reports: Depression Traumatic Medical History: Denies: Gunshot Wound Hematology: Denies: Anemia Infectious Medical History: Denies: HIV Past Surgical History Past Surgical History: Reports: Colostomy - with reversal, 6 years ago, Hysterectomy, Orthopedic Surgery - left hip replacement 11/04/2014, Pacemaker Social History Lives with: Family Smoking Status: Former Smoker Frequency of Alcohol Use: None Hx Recreational Drug Use: No Drugs: None Hx Prescription Drug Abuse: No - Advance Directive Resuscitation Status: Full Code Family History Family History: CAD - This is in not immediate family members., DM, Hyperlipidemia, Hypertension Parental Family History Reviewed: Yes Children Family History Reviewed: Yes Sibling(s) Family History Reviewed.: Yes Medication/Allergy Home Medications: Acetazolamide [Diamox 250 mg Tab] 250 mg PO Q12 04/03/18 Alprazolam [Xanax 0.5 mg Tablet] 0.5 mg PO Q8HP PRN 04/03/18 Buspirone HCl [Buspar 15 mg Tablet] 7.5 mg PO Q8 04/03/18 Citalopram Hydrobromide [Celexa 40 mg Tablet] 40 mg PO DAILY 04/03/18 Fluticasone/Umeclidin/Vilanter [Trelegy 100-62.5-25 Mcg Ellipta 14 Dose/Dpi] 1 each IH DAILY 04/03/18 Ipratropium/Albuterol Sulfate [Combivent Respimat 4 gm Mdi] 1 puff IH Q4HP PRN 04/03/18 Montelukast Sodium [Singulair 10 mg Tablet] 10 mg PO DAILY 04/03/18 Oxycodone HCl/Acetaminophen [Endocet 7.5-325 mg Tablet] 1 each PO Q8HP PRN 04/03/18 Ropinirole HCl [Requip] 1 mg PO TID 04/03/18 Zolpidem Tartrate [Ambien 5 mg Tablet] 5 mg PO HSP PRN 04/03/18 Allergies/Adverse Reactions: erythromycin base [Erythromycin Base] Allergy (Unknown, Verified 02/14/18 15:31) Review of Systems Constitutional: PRESENT: fatigue, weakness. ABSENT: chills, fever(s) Eyes: PRESENT: visual disturbances Ears: ABSENT: hearing changes Cardiovascular: PRESENT: dyspnea on exertion, palpitations. ABSENT: as per HPI, chest pain, edema, orthropnea, other Respiratory: PRESENT: cough, dyspnea, sputum Gastrointestinal: ABSENT: abdominal pain, constipation, diarrhea, hematemesis, hematochezia, nausea, vomiting Genitourinary: ABSENT: dysuria, hematuria Musculoskeletal: ABSENT: joint swelling Integumentary: ABSENT: rash, wounds Neurological: ABSENT: abnormal gait, abnormal speech, confusion, dizziness, focal weakness, syncope Psychiatric: ABSENT: anxiety, depression, homidical ideation, suicidal ideation Endocrine: ABSENT: cold intolerance, heat intolerance, polydipsia, polyuria Hematologic/Lymphatic: ABSENT: easy bleeding, easy bruising, lymphadenopathy Allergic/Immunologic: ABSENT: seasonal rhinorrhea Physical Exam Vital Signs: Temp Pulse Resp BP Pulse Ox 97.7 F 111 H 21 H 127/81 H 96 04/03/18 08:05 04/03/18 08:05 04/03/18 08:05 04/03/18 08:05 04/03/18 08:05 Intake & Output 04/02/18 04/03/18 04/04/18 06:59 06:59 06:59 Intake Total 1100 Output Total 200 Balance 900 Weight 72.9 kg General appearance: PRESENT: mild distress - on supplemental oxygen via nasal cannula at the time of my evaluation. Head exam: PRESENT: atraumatic, normocephalic Eye exam: PRESENT: conjunctiva pink, EOMI, PERRLA. ABSENT: scleral icterus Ear exam: PRESENT: normal external ear exam Mouth exam: PRESENT: moist Neck exam: PRESENT: full ROM. ABSENT: carotid bruit, JVD, lymphadenopathy, thyromegaly Respiratory exam: PRESENT: accessory muscle use, crackles, decreased breath sounds - at lung bases Cardiovascular exam: PRESENT: RRR, +S1, +S2. ABSENT: diastolic murmur, systolic murmur Pulses: PRESENT: +1 pedal pulses bilateral Vascular exam: PRESENT: normal capillary refill. ABSENT: pallor GI/Abdominal exam: PRESENT: normal bowel sounds, soft. ABSENT: distended, guarding, mass, organolmegaly, rebound, tenderness Rectal exam: PRESENT: deferred Extremities exam: ABSENT: pedal edema Neurological exam: PRESENT: alert, awake, oriented to person, oriented to place, oriented to time, oriented to situation, CN II-XII grossly intact. ABSENT: motor sensory deficit Psychiatric exam: PRESENT: agitated, anxious Skin exam: PRESENT: dry, warm Results Laboratory Results: 04/03/18 03:40 04/03/18 03:40 04/02/18 04/02/18 04/02/18 14:05 14:05 14:52 WBC 11.4 H RBC 4.21 Hgb 11.7 L Hct 36.7 MCV 87 MCH 27.9 MCHC 31.9 L RDW 20.7 H Plt Count 670 H Seg Neutrophils % 65.8 Lymphocytes % 17.3 Monocytes % 16.7 H Eosinophils % 0.1 Basophils % 0.1 Absolute Neutrophils 7.5 Absolute Lymphocytes 2.0 Absolute Monocytes 1.9 H Absolute Eosinophils 0.0 Absolute Basophils 0.0 Carbonic Acid HCO3/H2CO3 Ratio ABG pH ABG pCO2 ABG pO2 ABG HCO3 ABG O2 Saturation ABG Base Excess VBG pH VBG pCO2 VBG HCO3 VBG Base Excess FiO2 Sodium 140.5 Potassium 5.7 H Chloride 108 H Carbon Dioxide 24 Anion Gap 9 BUN 16 Creatinine 0.81 Est GFR ( Amer) > 60 Est GFR (Non-Af Amer) > 60 Glucose 158 H Lactic Acid 1.4 Calcium 9.3 Phosphorus Magnesium Total Bilirubin 0.7 AST 36 ALT 7 L Alkaline Phosphatase 106 Ammonia Total Protein 8.0 Albumin 4.0 Triglycerides Cholesterol LDL Cholesterol Direct VLDL Cholesterol HDL Cholesterol Amylase Lipase TSH Free T4 Urine Color Urine Appearance Urine pH Ur Specific [place]way Urine Protein Urine Glucose (UA) Urine Ketones Urine Blood Urine Nitrite Ur Leukocyte Esterase Urine WBC (Auto) Urine RBC (Auto) 04/02/18 04/02/18 04/02/18 14:52 16:00 17:54 WBC RBC Hgb Hct MCV MCH MCHC RDW Plt Count Seg Neutrophils % Lymphocytes % Monocytes % Eosinophils % Basophils % Absolute Neutrophils Absolute Lymphocytes Absolute Monocytes Absolute Eosinophils Absolute Basophils Carbonic Acid HCO3/H2CO3 Ratio ABG pH ABG pCO2 ABG pO2 ABG HCO3 ABG O2 Saturation ABG Base Excess VBG pH Cancelled 7.28 L VBG pCO2 Cancelled 47.5 VBG HCO3 Cancelled 21.6 VBG Base Excess Cancelled -5.4 FiO2 Sodium Potassium Chloride Carbon Dioxide Anion Gap BUN Creatinine Est GFR ( Amer) Est GFR (Non-Af Amer) Glucose Lactic Acid Calcium Phosphorus Magnesium Total Bilirubin AST ALT Alkaline Phosphatase Ammonia Total Protein Albumin Triglycerides Cholesterol LDL Cholesterol Direct VLDL Cholesterol HDL Cholesterol Amylase Lipase TSH Free T4 Urine Color YELLOW Urine Appearance SLIGHTLY-CLOUDY Urine pH 5.0 Ur Specific [place] 1.021 Urine Protein 30 H Urine Glucose (UA) NEGATIVE Urine Ketones NEGATIVE Urine Blood NEGATIVE Urine Nitrite NEGATIVE Ur Leukocyte Esterase NEGATIVE Urine WBC (Auto) 2 Urine RBC (Auto) 0 04/02/18 04/02/18 04/02/18 21:25 21:25 21:25 WBC RBC Hgb Hct MCV MCH MCHC RDW Plt Count Seg Neutrophils % Lymphocytes % Monocytes % Eosinophils % Basophils % Absolute Neutrophils Absolute Lymphocytes Absolute Monocytes Absolute Eosinophils Absolute Basophils Carbonic Acid HCO3/H2CO3 Ratio ABG pH ABG pCO2 ABG pO2 ABG HCO3 ABG O2 Saturation ABG Base Excess VBG pH VBG pCO2 VBG HCO3 VBG Base Excess FiO2 Sodium Potassium Chloride Carbon Dioxide Anion Gap BUN Creatinine Est GFR ( Amer) Est GFR (Non-Af Amer) Glucose Lactic Acid Calcium Phosphorus 4.2 Magnesium 2.6 H Total Bilirubin AST ALT Alkaline Phosphatase Ammonia < 8.7 L Total Protein Albumin Triglycerides Cholesterol LDL Cholesterol Direct VLDL Cholesterol HDL Cholesterol Amylase 64 Lipase 182.8 TSH 0.08 L Free T4 1.56 Urine Color Urine Appearance Urine pH Ur Specific [place] Urine Protein Urine Glucose (UA) Urine Ketones Urine Blood Urine Nitrite Ur Leukocyte Esterase Urine WBC (Auto) Urine RBC (Auto) 04/02/18 04/03/18 04/03/18 21:45 03:40 03:40 WBC 8.9 RBC 3.69 L Hgb 10.4 L Hct 31.4 L MCV 85 MCH 28.1 MCHC 33.1 RDW 18.8 H Plt Count 698 H Seg Neutrophils % 84.9 H Lymphocytes % 9.6 L Monocytes % 5.5 Eosinophils % 0.0 Basophils % 0.0 Absolute Neutrophils 7.6 Absolute Lymphocytes 0.9 Absolute Monocytes 0.5 Absolute Eosinophils 0.0 Absolute Basophils 0.0 Carbonic Acid 1.23 HCO3/H2CO3 Ratio 17:1 ABG pH 7.35 ABG pCO2 41.0 ABG pO2 112.5 H ABG HCO3 22.0 ABG O2 Saturation 97.9 ABG Base Excess -3.4 VBG pH VBG pCO2 VBG HCO3 VBG Base Excess FiO2 35% Sodium 142.4 Potassium 4.0 D Chloride 113 H Carbon Dioxide 22 Anion Gap 7 BUN 16 Creatinine 0.68 Est GFR ( Amer) > 60 Est GFR (Non-Af Amer) > 60 Glucose 142 H Lactic Acid Calcium 8.9 Phosphorus Magnesium Total Bilirubin 0.2 AST 11 L ALT < 6 L Alkaline Phosphatase 95 Ammonia Total Protein 6.2 L Albumin 2.9 L Triglycerides 59 Cholesterol 134.05 LDL Cholesterol Direct 71 VLDL Cholesterol 12.0 HDL Cholesterol 33 L Amylase Lipase TSH Free T4 Urine Color Urine Appearance Urine pH Ur Specific [place] Urine Protein Urine Glucose (UA) Urine Ketones Urine Blood Urine Nitrite Ur Leukocyte Esterase Urine WBC (Auto) Urine RBC (Auto) 04/02/18 04/02/18 04/02/18 14:05 14:05 14:05 Creatine Kinase 32 CK-MB (CK-2) 0.82 Troponin I < 0.012 NT-Pro-B Natriuret Pep 2270 H 04/02/18 04/02/18 04/03/18 21:25 21:25 03:40 Creatine Kinase < 20 L < 20 L CK-MB (CK-2) 0.72 Troponin I < 0.012 NT-Pro-B Natriuret Pep 04/03/18 04/03/18 03:40 03:40 Creatine Kinase CK-MB (CK-2) 0.86 Troponin I < 0.012 NT-Pro-B Natriuret Pep 2050 H Impressions: Chest X-Ray 04/02/18 14:03 IMPRESSION: Mild increased interstitial prominence, early interstitial edema versus atypical infectious process. No consolidation or pleural effusion. Assessment & Plan - Diagnosis (1) Decompensated COPD with exacerbation (chronic obstructive pulmonary disease) Is this a current diagnosis for this admission?: Yes Plan: See admitting attending physician orders. Her decompensation even on BiPAP support at home suggest that patient is in end stage of her lung disease process. She completed a MOST form during her last hospitalization which will be honored. (2) End stage chronic obstructive pulmonary disease Is this a current diagnosis for this admission?: Yes Plan: Maintain on IV Solu Medrol; and bronchodilators therapy. Maintain on supplemen sami oxygen via nasal cannula while awake and BiPAP support while sleeping. (3) HTN (hypertension) Qualifiers: Hypertension type: essential hypertension Qualified Code(s): I10 - Essential (primary) hypertension Is this a current diagnosis for this admission?: Yes Plan: Continue preadmission anti hypertensive medication management. (4) HLD (hyperlipidemia) Qualifiers: Hyperlipidemia type: pure hypercholesterolemia Qualified Code(s): E78.00 - Pure hypercholesterolemia, unspecified Is this a current diagnosis for this admission?: Yes Plan: Continue preadmission medication management. (5) Phvwg-Jhuwsncfn-Ahtop syndrome Plan: Continue preadmission medication management. (6) Mixed anxiety and depressive disorder Is this a current diagnosis for this admission?: Yes Plan: Continue preadmission medication management. (7) Protein-calorie undernutrition Qualifiers: Protein-calorie malnutrition severity: moderate Qualified Code(s): E44.0 - Moderate protein-calorie malnutrition Is this a current diagnosis for this admission?: Yes Plan: Continue preadmission anti hypertensive medication management. (8) Osteoarthritis Qualifiers: Osteoarthritis location: unspecified site Is this a current diagnosis for this admission?: Yes Plan: Continue preadmission medication management. (9) Chronic pain syndrome Is this a current diagnosis for this admission?: Yes Plan: Continue preadmission medication management. - Time Time Spent: 50 to 70 Minutes Medications reviewed and adjusted accordingly: Yes Anticipated discharge: Home with Homehealth Within: Other - Inpatient Certification Based on my medical assessment, after consideration of the patient's comorbidities, presenting symptoms, or acuity I expect that the services needed warrant INPATIENT care.: Yes I certify that my determination is in accordance with my understanding of Medicare's requirements for reasonable and necessary INPATIENT services [42 CFR 412.3e].: Yes Medical Necessity: Significant Comorbidiites Make Outpatient Treatment Too Risky, Need Close Monitoring Due to Risk of Patient Decompensation, Need For IV Fluids, Need For Continuous Telemetry Monitoring, Need for Nebulizer Therapy and Monitoring of Response, Risk of Complication if Not Cared For in Hospital, Risk of Diagnosis Which Will Require Inpatient Eval/Care/Monitoring Post Hospital Care: D/C Unit Assembler Documentation - Plan Summary Plan Summary: See admitting attending physician orders as per above outlined care plan.
[2018-04-03] MEDS ORDERED: VANCOMYCIN HCL 0 MG in DEXTROSE 5%-WATER 250 ML IV NR (19:30)
[2018-04-03] MEDS: PIPERACILLIN SODIUM/TAZOBACTAM 3.375 GM in NORMAL SALINE 100 ML IV SCH (20:25)
[2018-04-03] MEDS: ACETAZOLAMIDE 250 MG TABLET PO SCH (21:11)
[2018-04-03] MEDS: OXYCODONE-ACETAMINOPHEN 5-325 MG TABLET PO PRN (22:14)
[2018-04-03] MEDS: ZOLPIDEM TARTRATE 5 MG TABLET PO PRN (22:14)
[2018-04-03] MEDS: VANCOMYCIN HCL 750 MG in DEXTROSE 5%-WATER 250 ML IV SCH (22:15)
[2018-04-03] MEDS: OXYCODONE HCL IR 5 MG TABLET PO PRN (22:15)
[2018-04-04] MEDS: LEVALBUTEROL HCL NEB 1.25 MG/3 ML AMPUL NEB SCH ×7 (00:10→23:54)
[2018-04-04] MEDS: PIPERACILLIN SODIUM/TAZOBACTAM 3.375 GM in NORMAL SALINE 100 ML IV SCH ×5 (00:11→23:02)
[2018-04-04 04:55] LABS: ALANINE AMINOTRANSFERASE 7 U/L (9-52); ALBUMIN 2.8 g/dL (3.5-5.0); ALKALINE PHOSPHATASE 97 U/L (38-126); ANION GAP 8 (5-19); ASPARTATE AMINO TRANSFERASE 11 U/L (14-36); BILIRUBIN,DIRECT 0.2 mg/dL (0.0-0.4); BILIRUBIN,TOTAL 0.2 mg/dL (0.2-1.3); BLOOD UREA NITROGEN 27 mg/dL (7-20); CALCIUM 9.6 mg/dL (8.4-10.2); CARBON DIOXIDE 27 mmol/L (22-30); CHLORIDE 108 mmol/L (98-107); GLUCOSE 136 mg/dL (75-110); POTASSIUM 4.2 mmol/L (3.6-5.0); TOTAL PROTEIN 5.9 g/dL (6.3-8.2)
[2018-04-04 04:57] LABS: HEMATOCRIT 30.5 % (36.0-47.0); HEMOGLOBIN 9.8 g/dL (12.0-15.5); MEAN CORPUSCULAR HEMOGLOBIN 27.5 pg (27.0-33.4); MEAN CORPUSCULAR HGB CONC 32.2 g/dL (32.0-36.0); MEAN CORPUSCULAR VOLUME 86 fl (80-97); PLATELET COUNT 776 10^3/uL (150-450); RED BLOOD COUNT 3.56 10^6/uL (3.72-5.28); RED CELL DISTRIBUTION WIDTH 19.2 % (11.5-14.0)
[2018-04-04] MEDS: BUSPIRONE HCL 10 MG TABLET PO SCH ×3 (05:00→21:20)
[2018-04-04] MEDS: METHYLPREDNISOLONE INJ 125 MG/2 ML SDV IV SCH ×3 (05:00→21:19)
[2018-04-04] MEDS: ROPINIROLE HCL 1 MG TABLET PO SCH ×3 (05:01→21:19)
[2018-04-04 05:16] LABS: ABSOLUTE MONOCYTES # (MANUAL) 0.6 10^3/uL (0.1-1.4); ABSOLUTE NEUTROPHILS# (MANUAL) 18.4 10^3/uL (1.7-8.2); BASOPHILS % (MANUAL) 0 % (0-2); EOSINOPHILS % (MANUAL) 0 % (0-6); LYMPHOCYTES % (MANUAL) 5 % (13-45); MONOCYTES % (MANUAL) 3 % (3-13); SEGMENTED NEUTROPHILS % (MAN) 92 % (42-78); TOTAL CELLS COUNTED 100
[2018-04-04 05:21] LABS: ANISOCYTOSIS 2+; BURR CELLS SLIGHT; OVALOCYTES SLIGHT; POIKILOCYTOSIS 1+; SCHISTOCYTES SLIGHT; TOXIC GRANULATION 1+
[2018-04-04 05:22] LABS: PLATELET COMMENT ADEQUATE; TEAR DROP CELLS 1+
[2018-04-04] MEDS: ALPRAZOLAM 0.5 MG TABLET PO PRN ×2 (06:03→17:21)
[2018-04-04] MEDS: OXYCODONE HCL IR 5 MG TABLET PO PRN ×2 (06:03→21:21)
[2018-04-04] MEDS: OXYCODONE-ACETAMINOPHEN 5-325 MG TABLET PO PRN ×2 (06:04→21:21)
[2018-04-04] MEDS ORDERED: METRONIDAZOLE 500 MG TABLET PO ONE (06:45)
[2018-04-04] MEDS ORDERED: METRONIDAZOLE 500 MG TABLET ONE (06:57)
[2018-04-04] MEDS: CITALOPRAM HYDROBROMIDE 20 MG TABLET PO SCH (09:07)
[2018-04-04] MEDS: MONTELUKAST SODIUM 10 MG TABLET PO SCH (09:07)
[2018-04-04] MEDS: ACETAZOLAMIDE 250 MG TABLET PO SCH ×2 (09:08→21:20)
[2018-04-04] MEDS: VANCOMYCIN HCL 750 MG in DEXTROSE 5%-WATER 250 ML IV SCH ×2 (09:08→21:10)
[2018-04-04] MEDS: ENOXAPARIN SODIUM INJ 40 MG/0.4 ML DISP.SYRIN SUBCUT SCH (09:08)
[2018-04-04] MEDS ORDERED: (PENDING PHARMACY ID) (Citalopram Hydrobromide [Celexa 40 Mg Tablet] 40 MG) PO SCH (10:00)
[2018-04-04 12:13] LABS: WHITE BLOOD COUNT 8.9 10^3/uL (4.0-10.5)
[2018-04-04] MEDS: METRONIDAZOLE 500 MG TABLET PO SCH ×2 (13:59→21:19)
[2018-04-04] MEDS: NYSTATIN TOPICAL POWDER 15 GM TP SCH ×2 (14:01→17:18)
--- NOTE | 2018-04-04 19:41 | PDOC PROGRESS REPORT ---
Subjective Progress Note for:: 04/04/18 Subjective:: Patient reported diarrhea since last clinical evaluation. Stool evaluation confirmed first episode of C. difficile toxin colitis. No fever or chills. No abdominal pain, nausea, or vomiting. Reason For Visit: ACUTE HYPOXEMIC RESPIRATORY FAILURE, EXACERBATED Physical Exam Vital Signs: Temp Pulse Resp BP Pulse Ox 97.3 F 97 18 120/62 96 04/04/18 16:08 04/04/18 18:47 04/04/18 16:37 04/04/18 16:08 04/04/18 16:37 Intake & Output 04/03/18 04/04/18 04/05/18 06:59 06:59 06:59 Intake Total 8682 514 3548 Output Total 200 Balance 862 618 8013 Weight 72.9 kg 38.9 kg General appearance: PRESENT: mild distress - with breathing. remain on supplemntal oxygne via nasal cannula. Head exam: PRESENT: atraumatic, normocephalic Mouth exam: PRESENT: moist Respiratory exam: PRESENT: rhonchi - expiratory phase. Cardiovascular exam: PRESENT: RRR, +S1, +S2. ABSENT: diastolic murmur, rubs, systolic murmur Vascular exam: ABSENT: pallor GI/Abdominal exam: PRESENT: normal bowel sounds, soft. ABSENT: distended, guarding, mass, organolmegaly, rebound, tenderness Extremities exam: ABSENT: pedal edema Neurological exam: PRESENT: alert, awake, oriented to person, oriented to place, oriented to time, oriented to situation, CN II-XII grossly intact. ABSENT: motor sensory deficit Psychiatric exam: PRESENT: appropriate affect, normal mood. ABSENT: homicidal ideation, suicidal ideation Skin exam: PRESENT: dry, warm Results Laboratory Results: 04/04/18 04:00 04/04/18 04:00 04/03/18 04/04/18 04/04/18 03:40 04:00 04:00 WBC 8.9 20.0 H D RBC 3.56 L Hgb 9.8 L Hct 30.5 L MCV 86 MCH 27.5 MCHC 32.2 RDW 19.2 H Plt Count 776 H Seg Neutrophils % Not Reportable Lymphocytes % Not Reportable Monocytes % Not Reportable Eosinophils % Not Reportable Basophils % Not Reportable Absolute Neutrophils Not Reportable Absolute Lymphocytes Not Reportable Absolute Monocytes Not Reportable Absolute Eosinophils Not Reportable Absolute Basophils Not Reportable Sodium 143.0 Potassium 4.2 Chloride 108 H Carbon Dioxide 27 Anion Gap 8 BUN 27 H Creatinine 0.96 Est GFR ( Amer) > 60 Est GFR (Non-Af Amer) 57 L Glucose 136 H Calcium 9.6 Total Bilirubin 0.2 AST 11 L ALT 7 L Alkaline Phosphatase 97 Total Protein 5.9 L Albumin 2.8 L 04/02/18 17:54 Catheterized Urine Urine Culture - Final NO GROWTH 2 DAYS 04/02/18 04/02/18 04/02/18 14:05 14:05 14:05 Creatine Kinase 32 CK-MB (CK-2) 0.82 Troponin I < 0.012 NT-Pro-B Natriuret Pep 2270 H 04/02/18 04/02/18 04/03/18 21:25 21:25 03:40 Creatine Kinase < 20 L < 20 L CK-MB (CK-2) 0.72 Troponin I < 0.012 NT-Pro-B Natriuret Pep 04/03/18 04/03/18 04/03/18 03:40 03:40 10:30 Creatine Kinase < 20 L CK-MB (CK-2) 0.86 Troponin I < 0.012 NT-Pro-B Natriuret Pep 2050 H 04/03/18 10:30 Creatine Kinase CK-MB (CK-2) 0.98 Troponin I < 0.012 NT-Pro-B Natriuret Pep Impressions: Chest X-Ray 04/02/18 14:03 IMPRESSION: Mild increased interstitial prominence, early interstitial edema versus atypical infectious process. No consolidation or pleural effusion. Assessment & Plan - Diagnosis (1) Decompensated COPD with exacerbation (chronic obstructive pulmonary disease) Is this a current diagnosis for this admission?: Yes Plan: Leukocytosis is probably due to steroid therapy. Decrease IV Solu Medrol to 60 mg Q 8hours. Continue other current medication management. (2) End stage chronic obstructive pulmonary disease Is this a current diagnosis for this admission?: Yes Plan: In the absence of overt air space disease process and presence of C.difficile colitis, I will discontinue IV Zosyn and Vancomycin. (3) HTN (hypertension) Qualifiers: Hypertension type: essential hypertension Qualified Code(s): I10 - Essential (primary) hypertension Is this a current diagnosis for this admission?: Yes (4) HLD (hyperlipidemia) Qualifiers: Hyperlipidemia type: pure hypercholesterolemia Qualified Code(s): E78.00 - Pure hypercholesterolemia, unspecified Is this a current diagnosis for this admission?: Yes (6) Mixed anxiety and depressive disorder Is this a current diagnosis for this admission?: Yes (7) Protein-calorie undernutrition Qualifiers: Protein-calorie malnutrition severity: moderate Qualified Code(s): E44.0 - Moderate protein-calorie malnutrition Is this a current diagnosis for this admission?: Yes (8) Osteoarthritis Qualifiers: Osteoarthritis location: unspecified site Is this a current diagnosis for this admission?: Yes (9) Chronic pain syndrome Is this a current diagnosis for this admission?: Yes (10) C. difficile diarrhea Is this a current diagnosis for this admission?: Yes Plan: Maintain on oral Metronidazole therapy. Monitor response and reevaluate need for oral Vancomycin. Continue fluid support. - Time Time Spent with patient: 25-34 minutes Medications reviewed and adjusted accordingly: Yes Anticipated discharge: Home with Homehealth Within: Other - Inpatient Certification Based on my medical assessment, after consideration of the patient's mc rbidities, presenting symptoms, or acuity I expect that the services needed warrant INPATIENT care.: Yes I certify that my determination is in accordance with my understanding of Medicare's requirements for reasonable and necessary INPATIENT services [42 CFR 412.3e].: Yes Medical Necessity: Significant Comorbidiites Make Outpatient Treatment Too Risky, Need Close Monitoring Due to Risk of Patient Decompensation, Need For IV Fluids, Need For Continuous Telemetry Monitoring, Need for Nebulizer Therapy and Monitoring of Response, Risk of Complication if Not Cared For in Hospital, Risk of Diagnosis Which Will Require Inpatient Eval/Care/Monitoring Post Hospital Care: D/C Internal Sales Engineer Documentation - Plan Summary Plan Summary: Continue on above outlined care plan.
[2018-04-04] MEDS: ZOLPIDEM TARTRATE 5 MG TABLET PO PRN (21:19)
[2018-04-05] MEDS: LEVALBUTEROL HCL NEB 1.25 MG/3 ML AMPUL NEB SCH ×5 (04:20→21:24)
[2018-04-05 04:23] LABS: HEMATOCRIT 30.3 % (36.0-47.0); HEMOGLOBIN 9.3 g/dL (12.0-15.5); MEAN CORPUSCULAR HEMOGLOBIN 27.2 pg (27.0-33.4); MEAN CORPUSCULAR HGB CONC 30.8 g/dL (32.0-36.0); MEAN CORPUSCULAR VOLUME 88 fl (80-97); PLATELET COUNT 774 10^3/uL (150-450); RED BLOOD COUNT 3.43 10^6/uL (3.72-5.28); RED CELL DISTRIBUTION WIDTH 19.5 % (11.5-14.0)
[2018-04-05 04:26] LABS: ALANINE AMINOTRANSFERASE 18 U/L (9-52); ALBUMIN 2.8 g/dL (3.5-5.0); ALKALINE PHOSPHATASE 82 U/L (38-126); ANION GAP 8 (5-19); ASPARTATE AMINO TRANSFERASE 16 U/L (14-36); BLOOD UREA NITROGEN 24 mg/dL (7-20); CALCIUM 9.2 mg/dL (8.4-10.2); CARBON DIOXIDE 25 mmol/L (22-30); CHLORIDE 108 mmol/L (98-107); GLUCOSE 109 mg/dL (75-110); POTASSIUM 4.3 mmol/L (3.6-5.0); SODIUM 141.1 mmol/L (137-145); TOTAL PROTEIN 5.7 g/dL (6.3-8.2)
[2018-04-05 04:29] LABS: BILIRUBIN,TOTAL < 0.1 mg/dL (0.2-1.3)
[2018-04-05 05:06] LABS: ABSOLUTE LYMPHOCYTES# (MANUAL) 3.7 10^3/uL (0.5-4.7); ABSOLUTE MONOCYTES # (MANUAL) 5.2 10^3/uL (0.1-1.4); ABSOLUTE NEUTROPHILS# (MANUAL) 19.5 10^3/uL (1.7-8.2); BAND NEUTROPHILS % (MANUAL) 6 % (3-5); BASOPHILS % (MANUAL) 0 % (0-2); EOSINOPHILS % (MANUAL) 0 % (0-6); IMMATURE MONONUCLEAR% (MANUAL) 1 % (0); LYMPHOCYTES % (MANUAL) 13 % (13-45); MONOCYTES % (MANUAL) 18 % (3-13); MYELOCYTES % (MANUAL) 4 % (0); TOTAL CELLS COUNTED 100
[2018-04-05 05:07] LABS: PLATELET COMMENT ADEQUATE
[2018-04-05 05:09] LABS: HYPOCHROMASIA 1+; POLYCHROMASIA SLIGHT; SEGMENTED NEUTROPHILS % (MAN) 58 % (42-78)
[2018-04-05 05:15] LABS: WHITE BLOOD COUNT 28.7 10^3/uL (4.0-10.5)
[2018-04-05] MEDS: METHYLPREDNISOLONE INJ 125 MG/2 ML SDV IV SCH (05:23)
[2018-04-05] MEDS: PIPERACILLIN SODIUM/TAZOBACTAM 3.375 GM in NORMAL SALINE 100 ML IV SCH (05:23)
[2018-04-05] MEDS: BUSPIRONE HCL 10 MG TABLET PO SCH ×3 (05:24→21:21)
[2018-04-05] MEDS: ALPRAZOLAM 0.5 MG TABLET PO PRN ×2 (05:24→14:06)
[2018-04-05] MEDS: METRONIDAZOLE 500 MG TABLET PO SCH ×3 (05:24→21:23)
[2018-04-05] MEDS: ROPINIROLE HCL 1 MG TABLET PO SCH ×3 (05:24→21:23)
[2018-04-05] MEDS: CITALOPRAM HYDROBROMIDE 20 MG TABLET PO SCH (09:53)
[2018-04-05] MEDS: ACETAZOLAMIDE 250 MG TABLET PO SCH ×2 (09:53→21:22)
[2018-04-05] MEDS: MONTELUKAST SODIUM 10 MG TABLET PO SCH (09:53)
[2018-04-05] MEDS: NYSTATIN TOPICAL POWDER 15 GM TP SCH ×2 (09:54→17:49)
[2018-04-05] MEDS: VANCOMYCIN HCL INJ 500 MG VIAL PO SCH ×4 (09:54→23:23)
[2018-04-05] MEDS: ENOXAPARIN SODIUM INJ 40 MG/0.4 ML DISP.SYRIN SUBCUT SCH (09:54)
[2018-04-05 10:22] LABS: PATH REVIEW PATHOLOGIST REVIEWED
[2018-04-05 10:48] LABS: VANCOMYCIN,TROUGH 18.5 ug/mL (5.0-20.0)
[2018-04-05] MEDS ORDERED: METHYLPREDNISOLONE INJ 125 MG/2 ML SDV IV SCH (14:00)
[2018-04-05] MEDS: METHYLPREDNISOLONE INJ 40 MG/1 ML SDV IV SCH ×2 (14:07→21:21)
--- NOTE | 2018-04-05 18:12 | PDOC PROGRESS REPORT ---
Subjective Progress Note for:: 04/05/18 Subjective:: Patient continue to experience diarrhea. No fever or chills. No abdominal pain, nausea, or vomiting. No chest pain. Remain on supplemental oxygen via nasal cannula and BiPAP support while sleeping. Reason For Visit: ACUTE HYPOXEMIC RESPIRATORY FAILURE, EXACERBATED Physical Exam Vital Signs: Temp Pulse Resp BP Pulse Ox 98.0 F 91 18 107/53 L 98 04/05/18 14:55 04/05/18 16:04 04/05/18 16:04 04/05/18 14:55 04/05/18 16:04 Intake & Output 04/04/18 04/05/18 04/06/18 06:59 06:59 06:59 Intake Total 902 1728 957 Balance 902 1728 957 Weight 38.9 kg 40.2 kg Physical Exam: General appearance: PRESENT: mild distress - with breathing. remain on supplemntal oxygne via nasal cannula. Head exam: PRESENT: atraumatic, normocephalic Mouth exam: PRESENT: moist Respiratory exam: PRESENT: rhonchi - expiratory phase. Cardiovascular exam: PRESENT: RRR, +S1, +S2. ABSENT: diastolic murmur, rubs, systolic murmur Vascular exam: ABSENT: pallor GI/Abdominal exam: PRESENT: normal bowel sounds, soft. ABSENT: distended, gua rding, mass, organomegaly, rebound, tenderness Extremities exam: ABSENT: pedal edema Neurological exam: PRESENT: alert, awake, oriented to person, oriented to place, oriented to time, oriented to situation, CN II-XII grossly intact. ABSENT: motor sensory deficit Psychiatric exam: PRESENT: appropriate affect, normal mood. ABSENT: homicidal ideation, suicidal ideation Skin exam: PRESENT: dry, warm Results Laboratory Results: 04/05/18 04:00 04/05/18 09:40 04/05/18 04/05/18 04/05/18 04:00 04:00 09:40 WBC 28.7 H RBC 3.43 L Hgb 9.3 L Hct 30.3 L MCV 88 MCH 27.2 MCHC 30.8 L RDW 19.5 H Plt Count 774 H Seg Neutrophils % Not Reportable Lymphocytes % Not Reportable Monocytes % Not Reportable Eosinophils % Not Reportable Basophils % Not Reportable Absolute Neutrophils Not Reportable Absolute Lymphocytes Not Reportable Absolute Monocytes Not Reportable Absolute Eosinophils Not Reportable Absolute Basophils Not Reportable Sodium 141.1 Potassium 4.3 Chloride 108 H Carbon Dioxide 25 Anion Gap 8 BUN 24 H Creatinine 0.99 0.97 Est GFR ( Amer) > 60 > 60 Est GFR (Non-Af Amer) 55 L 56 L Glucose 109 Calcium 9.2 Total Bilirubin < 0.1 L AST 16 ALT 18 Alkaline Phosphatase 82 Total Protein 5.7 L Albumin 2.8 L 04/02/18 04/02/18 04/02/18 14:05 14:05 14:05 Creatine Kinase 32 CK-MB (CK-2) 0.82 Troponin I < 0.012 NT-Pro-B Natriuret Pep 2270 H 04/02/18 04/02/18 04/03/18 21:25 21:25 03:40 Creatine Kinase < 20 L < 20 L CK-MB (CK-2) 0.72 Troponin I < 0.012 NT-Pro-B Natriuret Pep 04/03/18 04/03/18 04/03/18 03:40 03:40 10:30 Creatine Kinase < 20 L CK-MB (CK-2) 0.86 Troponin I < 0.012 NT-Pro-B Natriuret Pep 2050 H 04/03/18 10:30 Creatine Kinase CK-MB (CK-2) 0.98 Troponin I < 0.012 NT-Pro-B Natriuret Pep Impressions: Chest X-Ray 04/02/18 14:03 IMPRESSION: Mild increased interstitial prominence, early interstitial edema versus atypical infectious process. No consolidation or pleural effusion. Assessment & Plan - Diagnosis (1) Decompensated COPD with exacerbation (chronic obstructive pulmonary disease) Is this a current diagnosis for this admission?: Yes (2) End stage chronic obstructive pulmonary disease Is this a current diagnosis for this admission?: Yes (3) HTN (hypertension) Qualifiers: Hypertension type: essential hypertension Qualified Code(s): I10 - Essential (primary) hypertension Is this a current diagnosis for this admission?: Yes (4) HLD (hyperlipidemia) Qualifiers: Hyperlipidemia type: pure hypercholesterolemia Qualified Code(s): E78.00 - Pure hypercholesterolemia, unspecified Is this a current diagnosis for this admission?: Yes (6) Mixed anxiety and depressive disorder Is this a current diagnosis for this admission?: Yes (7) Protein-calorie undernutrition Qualifiers: Protein-calorie malnutrition severity: moderate Qualified Code(s): E44.0 - Moderate protein-calorie malnutrition Is this a current diagnosis for this admission?: Yes (8) Osteoarthritis Qualifiers: Osteoarthritis location: unspecified site Is this a current diagnosis for this admission?: Yes (9) Chronic pain syndrome Is this a current diagnosis for this admission?: Yes (10) C. difficile diarrhea Is this a current diagnosis for this admission?: Yes - Time Time Spent with patient: 25-34 minutes Medications reviewed and adjusted accordingly: Yes Anticipated discharge: Home with Homehealth Within: Other - Inpatient Certification Based on my medical assessment, after consideration of the patient's comorbidities, presenting symptoms, or acuity I expect that the services needed warrant INPATIENT care.: Yes I certify that my determination is in accordance with my understanding of Medicare's requirements for reasonable and necessary INPATIENT services [42 CFR 412.3e].: Yes Medical Necessity: Significant Comorbidiites Make Outpatient Treatment Too Risky, Need Close Monitoring Due to Risk of Patient Decompensation, Need For IV Fluids, Need For Continuous Telemetry Monitoring, Need for Nebulizer Therapy and Monitoring of Response, Need for IV Antibiotics, Risk of Complication if Not Cared For in Hospital, Risk of Diagnosis Which Will Require Inpatient Eval/Care/Monitoring Post 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 Start on oral Vancomycin 250 mg p.o q 6 hours. Decrease IV Solu Medrol to 40 mg [id number]. Maintain on all other current medicati on management.
[2018-04-05] MEDS: ZOLPIDEM TARTRATE 5 MG TABLET PO PRN (21:21)
[2018-04-05] MEDS: OXYCODONE HCL IR 5 MG TABLET PO PRN (21:21)
[2018-04-05] MEDS: OXYCODONE-ACETAMINOPHEN 5-325 MG TABLET PO PRN (21:22)
[2018-04-06] MEDS: LEVALBUTEROL HCL NEB 1.25 MG/3 ML AMPUL NEB SCH ×7 (00:31→23:47)
[2018-04-06 04:02] LABS: HEMATOCRIT 29.2 % (36.0-47.0); HEMOGLOBIN 9.1 g/dL (12.0-15.5); MEAN CORPUSCULAR HEMOGLOBIN 26.9 pg (27.0-33.4); MEAN CORPUSCULAR VOLUME 87 fl (80-97); PLATELET COUNT 734 10^3/uL (150-450); RED BLOOD COUNT 3.37 10^6/uL (3.72-5.28); RED CELL DISTRIBUTION WIDTH 19.2 % (11.5-14.0); WHITE BLOOD COUNT 26.9 10^3/uL (4.0-10.5)
[2018-04-06 04:19] LABS: ANION GAP 7 (5-19); BLOOD UREA NITROGEN 21 mg/dL (7-20); CALCIUM 9.1 mg/dL (8.4-10.2); CARBON DIOXIDE 25 mmol/L (22-30); CHLORIDE 111 mmol/L (98-107); GLUCOSE 105 mg/dL (75-110); POTASSIUM 4.2 mmol/L (3.6-5.0); SODIUM 142.6 mmol/L (137-145)
[2018-04-06 04:34] LABS: ABSOLUTE LYMPHOCYTES# (MANUAL) 1.3 10^3/uL (0.5-4.7); ABSOLUTE MONOCYTES # (MANUAL) 1.6 10^3/uL (0.1-1.4); ABSOLUTE NEUTROPHILS# (MANUAL) 23.9 10^3/uL (1.7-8.2); BAND NEUTROPHILS % (MANUAL) 2 % (3-5); BASOPHILS % (MANUAL) 0 % (0-2); EOSINOPHILS % (MANUAL) 0 % (0-6); LYMPHOCYTES % (MANUAL) 5 % (13-45); METAMYELOCYTES % (MANUAL) 4 % (0); MONOCYTES % (MANUAL) 6 % (3-13); MYELOCYTES % (MANUAL) 6 % (0); PROMYELOCYTES % (MANUAL) 3 % (0); SEGMENTED NEUTROPHILS % (MAN) 74 % (42-78); TOTAL CELLS COUNTED 100
[2018-04-06 04:41] LABS: ANISOCYTOSIS 2+; PLATELET COMMENT INCREASED; TEAR DROP CELLS SLIGHT
[2018-04-06] MEDS: OXYCODONE-ACETAMINOPHEN 5-325 MG TABLET PO PRN ×2 (05:21→21:24)
[2018-04-06] MEDS: OXYCODONE HCL IR 5 MG TABLET PO PRN ×2 (05:21→21:23)
[2018-04-06] MEDS: METHYLPREDNISOLONE INJ 40 MG/1 ML SDV IV SCH ×2 (05:21→17:25)
[2018-04-06] MEDS: ALPRAZOLAM 0.5 MG TABLET PO PRN ×2 (05:22→14:44)
[2018-04-06] MEDS: BUSPIRONE HCL 10 MG TABLET PO SCH ×3 (05:22→21:23)
[2018-04-06] MEDS: VANCOMYCIN HCL INJ 500 MG VIAL PO SCH ×4 (05:24→23:11)
[2018-04-06] MEDS: METRONIDAZOLE 500 MG TABLET PO SCH ×3 (05:24→21:25)
[2018-04-06] MEDS: ROPINIROLE HCL 1 MG TABLET PO SCH ×3 (05:24→21:25)
[2018-04-06] MEDS: ACETAZOLAMIDE 250 MG TABLET PO SCH ×2 (09:51→21:24)
[2018-04-06] MEDS: NYSTATIN TOPICAL POWDER 15 GM TP SCH ×2 (09:51→18:50)
[2018-04-06] MEDS: CITALOPRAM HYDROBROMIDE 20 MG TABLET PO SCH (09:51)
[2018-04-06] MEDS: MONTELUKAST SODIUM 10 MG TABLET PO SCH (09:51)
[2018-04-06] MEDS: ENOXAPARIN SODIUM INJ 40 MG/0.4 ML DISP.SYRIN SUBCUT SCH (09:52)
--- NOTE | 2018-04-06 18:42 | PDOC PROGRESS REPORT ---
Subjective Progress Note for:: 04/06/18 Subjective:: Patient continue to experience intermittent diarrhea. No fever or chills. No abdominal pain, nausea, or vomiting. No chest pain. Remain on supplemental oxygen via nasal cannula and BiPAP support while sleeping. Reason For Visit: ACUTE HYPOXEMIC RESPIRATORY FAILURE, EXACERBATED Physical Exam Vital Signs: Temp Pulse Resp BP Pulse Ox 97.7 F 87 16 116/63 98 04/06/18 15:26 04/06/18 15:54 04/06/18 15:54 04/06/18 15:26 04/06/18 15:54 Intake & Output 04/05/18 04/06/18 04/07/18 06:59 06:59 06:59 Intake Total 1728 1513 355 Output Total 2 Balance 1728 1511 355 Weight 40.2 kg 41 kg Physical Exam: General appearance: PRESENT: mild distress - with breathing. remain on supplemntal oxygne via nasal cannula. Head exam: PRESENT: atraumatic, normocephalic Mouth exam: PRESENT: moist Respiratory exam: PRESENT: rhonchi - expiratory phase. Cardiovascular exam: PRESENT: RRR, +S1, +S2. ABSENT: diastolic murmur, rubs, systolic murmur Vascular exam: ABSENT: pallor GI/Abdominal exam: PRESENT: normal bowel sounds, soft. ABSENT: distended, guarding, mass, organomegaly, rebound, tenderness Extremities exam: ABSENT: pedal edema Neurological exam: PRESENT: alert, awake, oriented to person, oriented to place, oriented to time, oriented to situation, CN II-XII grossly intact. ABSENT: motor sensory deficit Psychiatric exam: PRESENT: appropriate affect, normal mood. ABSENT: homicidal ideation, suicidal ideation Skin exam: PRESENT: dry, warm Results Laboratory Results: 04/06/18 03:55 04/06/18 03:55 04/05/18 04/06/18 04/06/18 04:00 03:55 03:55 WBC 28.7 H 26.9 H RBC 3.43 L 3.37 L Hgb 9.3 L 9.1 L Hct 30.3 L 29.2 L MCV 88 87 MCH 27.2 26.9 L MCHC 30.8 L 31.0 L RDW 19.5 H 19.2 H Plt Count 774 H 734 H Seg Neutrophils % Not Reportable Lymphocytes % Not Reportable Monocytes % Not Reportable Eosinophils % Not Reportable Basophils % Not Reportable Absolute Neutrophils Not Reportable Absolute Lymphocytes Not Reportable Absolute Monocytes Not Reportable Absolute Eosinophils Not Reportable Absolute Basophils Not Reportable Sodium 142.6 Potassium 4.2 Chloride 111 H Carbon Dioxide 25 Anion Gap 7 BUN 21 H Creatinine 0.89 Est GFR ( Amer) > 60 Est GFR (Non-Af Amer) > 60 Glucose 105 Calcium 9.1 04/02/18 04/02/18 04/02/18 14:05 14:05 14:05 Creatine Kinase 32 CK-MB (CK-2) 0.82 Troponin I < 0.012 NT-Pro-B Natriuret Pep 2270 H 04/02/18 04/02/18 04/03/18 21:25 21:25 03:40 Creatine Kinase < 20 L < 20 L CK-MB (CK-2) 0.72 Troponin I < 0.012 NT-Pro-B Natriuret Pep 04/03/18 04/03/18 04/03/18 03:40 03:40 10:30 Creatine Kinase < 20 L CK-MB (CK-2) 0.86 Troponin I < 0.012 NT-Pro-B Natriuret Pep 2050 H 04/03/18 10:30 Creatine Kinase CK-MB (CK-2) 0.98 Troponin I < 0.012 NT-Pro-B Natriuret Pep Impressions: Chest X-Ray 04/02/18 14:03 IMPRESSION: Mild increased interstitial prominence, early interstitial edema versus atypical infectious process. No consolidation or pleural effusion. Assessment & Plan - Diagnosis (1) Decompensated COPD with exacerbation (chronic obstructive pulmonary disease) Is this a current diagnosis for this admission?: Yes (2) End stage chronic obstructive pulmonary disease Is this a current diagnosis for this admission?: Yes (3) HTN (hypertension) Qualifiers: Hypertension type: essential hypertension Qualified Code(s): I10 - Essential (primary) hypertension Is this a current diagnosis for this admission?: Yes (4) HLD (hyperlipidemia) Qualifiers: Hyperlipidemia type: pure hypercholesterolemia Qualified Code(s): E78.00 - Pure hypercholesterolemia, unspecified Is this a current diagnosis for this admission?: Yes (6) Mixed anxiety and depressive disorder Is this a current diagnosis for this admission?: Yes (7) Protein-calorie undernutrition Qualifiers: Protein-calorie malnutrition severity: moderate Qualified Code(s): E44.0 - Moderate protein-calorie malnutrition Is this a current diagnosis for this admission?: Yes (8) Osteoarthritis Qualifiers: Osteoarthritis location: unspecified site Is this a current diagnosis for this admission?: Yes (9) Chronic pain syndrome Is this a current diagnosis for this admission?: Yes (10) C. difficile diarrhea Is this a current diagnosis for this admission?: Yes - Time Time Spent with patient: 25-34 minutes Medications reviewed and adjusted accordingly: Yes Anticipated discharge: Home with Homehealth Within: Other - Inpatient Certification Based on my medical assessment, after consideration of the patient's comorbidities, presenting symptoms, or acuity I expect that the services needed warrant INPATIENT care.: Yes I certify that my determination is in accordance with my understanding of Medicare's requirements for reasonable and necessary INPATIENT services [42 CFR 412.3e].: Yes Medical Necessity: Significant Comorbidiites Make Outpatient Treatment Too Risky, Need Close Monitoring Due to Risk of Patient Decompensation, Need For IV Fluids, Need For Continuous Telemetry Monitoring, Need for Nebulizer Therapy and Monitoring of Response, Risk of Complication if Not Cared For in Hospital, Risk of Diagnosis Which Will Require Inpatient Eval/Care/Monitoring 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 Decrease IV Solu Medrol to 40 mg q12 hours. Restart on Trelegy therapy. Follow up on CBC in am.
[2018-04-06] MEDS: ZOLPIDEM TARTRATE 5 MG TABLET PO PRN (21:23)
[2018-04-07 04:20] LABS: HEMATOCRIT 31.2 % (36.0-47.0); MEAN CORPUSCULAR HEMOGLOBIN 27.8 pg (27.0-33.4); MEAN CORPUSCULAR VOLUME 87 fl (80-97); PLATELET COUNT 741 10^3/uL (150-450); RED BLOOD COUNT 3.59 10^6/uL (3.72-5.28); RED CELL DISTRIBUTION WIDTH 19.7 % (11.5-14.0)
[2018-04-07] MEDS: LEVALBUTEROL HCL NEB 1.25 MG/3 ML AMPUL NEB SCH ×6 (04:22→23:50)
[2018-04-07 04:45] LABS: ANION GAP 5 (5-19); BLOOD UREA NITROGEN 22 mg/dL (7-20); CALCIUM 9.2 mg/dL (8.4-10.2); CARBON DIOXIDE 29 mmol/L (22-30); CHLORIDE 107 mmol/L (98-107); GLUCOSE 95 mg/dL (75-110); POTASSIUM 4.7 mmol/L (3.6-5.0); SODIUM 140.5 mmol/L (137-145)
[2018-04-07] MEDS: VANCOMYCIN HCL INJ 500 MG VIAL PO SCH ×2 (05:09→12:03)
[2018-04-07] MEDS: ALPRAZOLAM 0.5 MG TABLET PO PRN ×2 (05:09→13:52)
[2018-04-07] MEDS: ROPINIROLE HCL 1 MG TABLET PO SCH ×3 (05:10→21:24)
[2018-04-07] MEDS: BUSPIRONE HCL 10 MG TABLET PO SCH ×3 (05:10→21:24)
[2018-04-07] MEDS: METRONIDAZOLE 500 MG TABLET PO SCH ×2 (05:10→13:52)
[2018-04-07 05:17] LABS: ABSOLUTE LYMPHOCYTES# (MANUAL) 4.8 10^3/uL (0.5-4.7); ABSOLUTE MONOCYTES # (MANUAL) 5.6 10^3/uL (0.1-1.4); ABSOLUTE NEUTROPHILS# (MANUAL) 17.4 10^3/uL (1.7-8.2); BASOPHILS % (MANUAL) 1 % (0-2); EOSINOPHILS % (MANUAL) 0 % (0-6); LYMPHOCYTES % (MANUAL) 16 % (13-45); METAMYELOCYTES % (MANUAL) 2 % (0); MONOCYTES % (MANUAL) 20 % (3-13); MYELOCYTES % (MANUAL) 2 % (0); PROMYELOCYTES % (MANUAL) 1 % (0); SEGMENTED NEUTROPHILS % (MAN) 57 % (42-78); TOTAL CELLS COUNTED 100
[2018-04-07 05:21] LABS: ANISOCYTOSIS 2+; HYPOCHROMASIA 1+; PLATELET COMMENT ADEQUATE
[2018-04-07] MEDS ORDERED: METHYLPREDNISOLONE INJ 40 MG/1 ML SDV IV SCH (06:00)
[2018-04-07] MEDS: OXYCODONE-ACETAMINOPHEN 5-325 MG TABLET PO PRN ×2 (08:29→21:25)
[2018-04-07] MEDS: OXYCODONE HCL IR 5 MG TABLET PO PRN ×2 (08:31→21:26)
[2018-04-07] MEDS: FLUTICASONE/UMECLIDIN/VILANTER 100-62.5-25 MCG/DOSE IH SCH (10:46)
[2018-04-07] MEDS: ACETAZOLAMIDE 250 MG TABLET PO SCH ×2 (10:47→21:25)
[2018-04-07] MEDS: MONTELUKAST SODIUM 10 MG TABLET PO SCH (10:48)
[2018-04-07] MEDS: CITALOPRAM HYDROBROMIDE 20 MG TABLET PO SCH (10:48)
[2018-04-07] MEDS: ENOXAPARIN SODIUM INJ 40 MG/0.4 ML DISP.SYRIN SUBCUT SCH (10:48)
[2018-04-07] MEDS: NYSTATIN TOPICAL POWDER 15 GM TP SCH ×2 (12:02→17:32)
[2018-04-07] MEDS: FIDAXOMICIN 200 MG TABLET PO SCH (17:29)
[2018-04-07] MEDS: ZOLPIDEM TARTRATE 5 MG TABLET PO PRN (21:25)
[2018-04-08 04:01] LABS: HEMATOCRIT 33.1 % (36.0-47.0); HEMOGLOBIN 10.4 g/dL (12.0-15.5); MEAN CORPUSCULAR HEMOGLOBIN 27.2 pg (27.0-33.4); MEAN CORPUSCULAR HGB CONC 31.4 g/dL (32.0-36.0); MEAN CORPUSCULAR VOLUME 87 fl (80-97); PLATELET COUNT 719 10^3/uL (150-450); RED BLOOD COUNT 3.83 10^6/uL (3.72-5.28); RED CELL DISTRIBUTION WIDTH 19.9 % (11.5-14.0); WHITE BLOOD COUNT 28.9 10^3/uL (4.0-10.5)
[2018-04-08 04:22] LABS: ABSOLUTE LYMPHOCYTES# (MANUAL) 9.8 10^3/uL (0.5-4.7); ABSOLUTE MONOCYTES # (MANUAL) 4.6 10^3/uL (0.1-1.4); ABSOLUTE NEUTROPHILS# (MANUAL) 14.5 10^3/uL (1.7-8.2); BASOPHILS % (MANUAL) 0 % (0-2); EOSINOPHILS % (MANUAL) 0 % (0-6); LYMPHOCYTES % (MANUAL) 34 % (13-45); MONOCYTES % (MANUAL) 16 % (3-13); NUCLEATED RED BLOOD CELLS 1 /100 WBC (0); SEGMENTED NEUTROPHILS % (MAN) 50 % (42-78); TOTAL CELLS COUNTED 100
[2018-04-08 04:23] LABS: ANISOCYTOSIS 3+; PLATELET COMMENT ADEQUATE; POLYCHROMASIA 2+
[2018-04-08] MEDS: LEVALBUTEROL HCL NEB 1.25 MG/3 ML AMPUL NEB SCH ×6 (04:32→23:49)
[2018-04-08] MEDS: ALPRAZOLAM 0.5 MG TABLET PO PRN ×3 (05:06→21:46)
[2018-04-08] MEDS: BUSPIRONE HCL 10 MG TABLET PO SCH ×3 (05:06→21:45)
[2018-04-08] MEDS: ROPINIROLE HCL 1 MG TABLET PO SCH ×3 (05:06→21:45)
[2018-04-08] MEDS: MONTELUKAST SODIUM 10 MG TABLET PO SCH (09:42)
[2018-04-08] MEDS: ENOXAPARIN SODIUM INJ 40 MG/0.4 ML DISP.SYRIN SUBCUT SCH (09:42)
[2018-04-08] MEDS: NYSTATIN TOPICAL POWDER 15 GM TP SCH ×2 (09:43→17:47)
[2018-04-08] MEDS: ACETAZOLAMIDE 250 MG TABLET PO SCH ×2 (09:43→21:46)
[2018-04-08] MEDS: CITALOPRAM HYDROBROMIDE 20 MG TABLET PO SCH (09:43)
[2018-04-08] MEDS: FIDAXOMICIN 200 MG TABLET PO SCH ×2 (09:45→17:45)
[2018-04-08] MEDS: FLUTICASONE/UMECLIDIN/VILANTER 100-62.5-25 MCG/DOSE IH SCH (09:45)
--- NOTE | 2018-04-08 10:13 | PDOC PROGRESS REPORT ---
Subjective Progress Note for:: 04/08/18 Subjective:: Patient is feeling better except still having intermittent on and off diarrhea Patients denied any chest pain to than any shortness of the breath Patient was put in the dificd yesterday while failed the Flagyl and vancomycin Reason For Visit: ACUTE HYPOXEMIC RESPIRATORY FAILURE, EXACERBATED Physical Exam Vital Signs: Temp Pulse Resp BP Pulse Ox 99.2 F 97 16 105/62 94 04/08/18 08:00 04/08/18 08:54 04/08/18 08:54 04/08/18 08:00 04/08/18 08:54 Intake & Output 04/07/18 04/08/18 04/09/18 06:59 06:59 06:59 Intake Total 970 912 Balance 970 912 Weight 40.1 kg 39.8 kg General appearance: PRESENT: no acute distress, well-developed, well-nourished Head exam: PRESENT: atraumatic, normocephalic Eye exam: PRESENT: conjunctiva pink, EOMI, PERRLA. ABSENT: scleral icterus Ear exam: PRESENT: normal external ear exam Mouth exam: PRESENT: moist, tongue midline Neck exam: PRESENT: full ROM. ABSENT: carotid bruit, JVD, lymphadenopathy, thyromegaly Respiratory exam: PRESENT: clear to auscultation luci Cardiovascular exam: PRESENT: RRR. ABSENT: diastolic murmur, rubs, systolic murmur Vascular exam: PRESENT: normal capillary refill GI/Abdominal exam: PRESENT: normal bowel sounds, soft. ABSENT: distended, guarding, mass, organolmegaly, rebound, tenderness Rectal exam: PRESENT: deferred Neurological exam: PRESENT: alert, awake, oriented to person, oriented to place, oriented to time, oriented to situation, CN II-XII grossly intact. ABSENT: motor sensory deficit Psychiatric exam: PRESENT: appropriate affect, normal mood. ABSENT: homicidal ideation, suicidal ideation Skin exam: PRESENT: dry, intact, warm. ABSENT: cyanosis, rash Results Laboratory Results: 04/08/18 03:57 04/07/18 04:00 04/08/18 03:57 WBC 28.9 H RBC 3.83 Hgb 10.4 L Hct 33.1 L MCV 87 MCH 27.2 MCHC 31.4 L RDW 19.9 H Plt Count 719 H Seg Neutrophils % Not Reportable Lymphocytes % Not Reportable Monocytes % Not Reportable Eosinophils % Not Reportable Basophils % Not Reportable Absolute Neutrophils Not Reportable Absolute Lymphocytes Not Reportable Absolute Monocytes Not Reportable Absolute Eosinophils Not Reportable Absolute Basophils Not Reportable 04/02/18 16:00 Blood Blood Culture - Final NO GROWTH IN 5 DAYS 04/02/18 14:52 Blood Blood Culture - Final NO GROWTH IN 5 DAYS 04/02/18 04/02/18 04/02/18 14:05 14:05 14:05 Creatine Kinase 32 CK-MB (CK-2) 0.82 Troponin I < 0.012 NT-Pro-B Natriuret Pep 2270 H 04/02/18 04/02/18 04/03/18 21:25 21:25 03:40 Creatine Kinase < 20 L < 20 L CK-MB (CK-2) 0.72 Troponin I < 0.012 NT-Pro-B Natriuret Pep 04/03/18 04/03/18 04/03/18 03:40 03:40 10:30 Creatine Kinase < 20 L CK-MB (CK-2) 0.86 Troponin I < 0.012 NT-Pro-B Natriuret Pep 2050 H 04/03/18 10:30 Creatine Kinase CK-MB (CK-2) 0.98 Troponin I < 0.012 NT-Pro-B Natriuret Pep Impressions: Chest X-Ray 04/02/18 14:03 IMPRESSION: Mild increased interstitial prominence, early interstitial edema versus atypical infectious process. No consolidation or pleural effusion. Assessment & Plan - Diagnosis (1) C. difficile diarrhea Is this a current diagnosis for this admission?: Yes Plan: Continues to current medications may be at the cholestyramine powder for gram times once a day (2) Decompensated COPD with exacerbation (chronic obstructive pulmonary disease) Is this a current diagnosis for this admission?: Yes Plan: And is on nebulizer treatments (3) Juixe-Dmwpclzvf-Hdumj syndrome Is this a current diagnosis for this admission?: Yes (4) Coronary artery disease Qualifiers: Coronary Disease-Associated Artery/Lesion type: [place] artery [place] vs. transplanted heart: [place] heart Associated angina: angina presence unspecified Qualified Code(s): I25.10 - Atherosclerotic heart disease of [place] coronary artery without angina pectoris Is this a current diagnosis for this admission?: Yes (5) End stage chronic obstructive pulmonary disease Is this a current diagnosis for this admission?: Yes (6) GERD (gastroesophageal reflux disease) Qualifiers: Esophagitis presence: without esophagitis Qualified Code(s): K21.9 - Gastro-esophageal reflux disease without esophagitis Is this a current diagnosis for this admission?: Yes - Time Time Spent with patient: 15-24 minutes Medications reviewed and adjusted accordingly: Yes Anticipated discharge: Home Within: Other - Plan Summary Plan Summary: Will repeat the CBC and Chem-7 in the morning continues to current medications
[2018-04-08] MEDS: CHOLESTYRAMINE/ASPARTAME 4 GM PACKET PO SCH (13:21)
[2018-04-08] MEDS: OXYCODONE HCL IR 5 MG TABLET PO PRN (13:54)
[2018-04-08] MEDS: OXYCODONE-ACETAMINOPHEN 5-325 MG TABLET PO PRN (13:55)
[2018-04-08] MEDS: ZOLPIDEM TARTRATE 5 MG TABLET PO PRN (21:46)
[2018-04-09] MEDS: LEVALBUTEROL HCL NEB 1.25 MG/3 ML AMPUL NEB SCH ×5 (04:24→19:43)
[2018-04-09] MEDS: ROPINIROLE HCL 1 MG TABLET PO SCH ×3 (06:32→22:10)
[2018-04-09] MEDS: BUSPIRONE HCL 10 MG TABLET PO SCH ×3 (06:32→22:10)
[2018-04-09 07:13] LABS: HEMATOCRIT 33.6 % (36.0-47.0); HEMOGLOBIN 10.6 g/dL (12.0-15.5); MEAN CORPUSCULAR HEMOGLOBIN 27.4 pg (27.0-33.4); MEAN CORPUSCULAR HGB CONC 31.5 g/dL (32.0-36.0); MEAN CORPUSCULAR VOLUME 87 fl (80-97); PLATELET COUNT 600 10^3/uL (150-450); RED BLOOD COUNT 3.85 10^6/uL (3.72-5.28); RED CELL DISTRIBUTION WIDTH 20.1 % (11.5-14.0)
[2018-04-09 07:20] LABS: ANION GAP 5 (5-19); BLOOD UREA NITROGEN 22 mg/dL (7-20); CALCIUM 9.1 mg/dL (8.4-10.2); CARBON DIOXIDE 26 mmol/L (22-30); CHLORIDE 107 mmol/L (98-107); GLUCOSE 89 mg/dL (75-110); POTASSIUM 4.6 mmol/L (3.6-5.0); SODIUM 138.4 mmol/L (137-145)
[2018-04-09 08:20] LABS: ABSOLUTE LYMPHOCYTES# (MANUAL) 8.1 10^3/uL (0.5-4.7); ABSOLUTE MONOCYTES # (MANUAL) 1.9 10^3/uL (0.1-1.4); BAND NEUTROPHILS % (MANUAL) 5 % (3-5); BASOPHILS % (MANUAL) 0 % (0-2); EOSINOPHILS % (MANUAL) 0 % (0-6); LYMPHOCYTES % (MANUAL) 30 % (13-45); METAMYELOCYTES % (MANUAL) 2 % (0); MONOCYTES % (MANUAL) 7 % (3-13); MYELOCYTES % (MANUAL) 1 % (0); NUCLEATED RED BLOOD CELLS 1 /100 WBC (0); PROMYELOCYTES % (MANUAL) 1 % (0); SEGMENTED NEUTROPHILS % (MAN) 54 % (42-78); TOTAL CELLS COUNTED 100
[2018-04-09 08:22] LABS: ANISOCYTOSIS 2+; HYPOCHROMASIA SLIGHT; OVALOCYTES SLIGHT; PLATELET CLUMPS PRESENT; PLATELET COMMENT INCREASED; POIKILOCYTOSIS 1+; POLYCHROMASIA SLIGHT; TARGET CELLS SLIGHT; TOXIC GRANULATION SLIGHT
[2018-04-09] MEDS: ENOXAPARIN SODIUM INJ 40 MG/0.4 ML DISP.SYRIN SUBCUT SCH (09:45)
[2018-04-09] MEDS: NYSTATIN TOPICAL POWDER 15 GM TP SCH ×2 (09:45→17:23)
[2018-04-09] MEDS: CHOLESTYRAMINE/ASPARTAME 4 GM PACKET PO SCH (09:45)
[2018-04-09] MEDS: ACETAZOLAMIDE 250 MG TABLET PO SCH ×2 (09:45→22:10)
[2018-04-09] MEDS: CITALOPRAM HYDROBROMIDE 20 MG TABLET PO SCH (09:45)
[2018-04-09] MEDS: MONTELUKAST SODIUM 10 MG TABLET PO SCH (09:45)
[2018-04-09] MEDS: FIDAXOMICIN 200 MG TABLET PO SCH ×2 (09:45→17:23)
--- NOTE | 2018-04-09 10:20 | PDOC PROGRESS REPORT ---
Subjective Progress Note for:: 04/09/18 Subjective:: Patient is currently doing fair Patient's diarrhea is also improving Patient received 1 dose of cholestyramine and also received the new medicines dificid No chest pain no short of breath No fever Reason For Visit: ACUTE HYPOXEMIC RESPIRATORY FAILURE, EXACERBATED Physical Exam Vital Signs: Temp Pulse Resp BP Pulse Ox 98.6 F 84 16 115/58 L 99 04/09/18 07:04 04/09/18 08:07 04/09/18 08:07 04/09/18 07:04 04/09/18 08:07 Intake & Output 04/08/18 04/09/18 04/10/18 06:59 06:59 06:59 Intake Total 912 1663 Balance 912 1663 Weight 39.8 kg 36.9 kg General appearance: PRESENT: no acute distress, well-developed, well-nourished Head exam: PRESENT: atraumatic, normocephalic Eye exam: PRESENT: conjunctiva pink, EOMI, PERRLA. ABSENT: scleral icterus Ear exam: PRESENT: normal external ear exam Mouth exam: PRESENT: moist, tongue midline Neck exam: PRESENT: full ROM. ABSENT: carotid bruit, JVD, lymphadenopathy, thyromegaly Respiratory exam: PRESENT: clear to auscultation luci Cardiovascular exam: PRESENT: RRR. ABSENT: diastolic murmur, rubs, systolic murmur Vascular exam: PRESENT: normal capillary refill GI/Abdominal exam: PRESENT: normal bowel sounds, soft. ABSENT: distended, gu arding, mass, organolmegaly, rebound, tenderness Rectal exam: PRESENT: deferred Neurological exam: PRESENT: alert, awake, oriented to person, oriented to place, oriented to time, oriented to situation, CN II-XII grossly intact. ABSENT: motor sensory deficit Psychiatric exam: PRESENT: appropriate affect, normal mood. ABSENT: homicidal ideation, suicidal ideation Skin exam: PRESENT: dry, intact, warm. ABSENT: cyanosis, rash Results Laboratory Results: 04/09/18 06:40 04/09/18 06:40 04/09/18 04/09/18 06:40 06:40 WBC 27.0 H RBC 3.85 Hgb 10.6 L Hct 33.6 L MCV 87 MCH 27.4 MCHC 31.5 L RDW 20.1 H Plt Count 600 H Seg Neutrophils % Not Reportable Lymphocytes % Not Reportable Monocytes % Not Reportable Eosinophils % Not Reportable Basophils % Not Reportable Absolute Neutrophils Not Reportable Absolute Lymphocytes Not Reportable Absolute Monocytes Not Reportable Absolute Eosinophils Not Reportable Absolute Basophils Not Reportable Sodium 138.4 Potassium 4.6 Chloride 107 Carbon Dioxide 26 Anion Gap 5 BUN 22 H Creatinine 0.82 Est GFR ( Amer) > 60 Est GFR (Non-Af Amer) > 60 Glucose 89 Calcium 9.1 04/02/18 04/02/18 04/02/18 14:05 14:05 14:05 Creatine Kinase 32 CK-MB (CK-2) 0.82 Troponin I < 0.012 NT-Pro-B Natriuret Pep 2270 H 04/02/18 04/02/18 04/03/18 21:25 21:25 03:40 Creatine Kinase < 20 L < 20 L CK-MB (CK-2) 0.72 Troponin I < 0.012 NT-Pro-B Natriuret Pep 04/03/18 04/03/18 04/03/18 03:40 03:40 10:30 Creatine Kinase < 20 L CK-MB (CK-2) 0.86 Troponin I < 0.012 NT-Pro-B Natriuret Pep 2050 H 04/03/18 10:30 Creatine Kinase CK-MB (CK-2) 0.98 Troponin I < 0.012 NT-Pro-B Natriuret Pep Impressions: Chest X-Ray 04/02/18 14:03 IMPRESSION: Mild increased interstitial prominence, early interstitial edema versus atypical infectious process. No consolidation or pleural effusion. Assessment & Plan - Diagnosis (1) C. difficile diarrhea Is this a current diagnosis for this admission?: Yes Plan: Continues to current medications (2) Decompensated COPD with exacerbation (chronic obstructive pulmonary disease) Is this a current diagnosis for this admission?: Yes Plan: And is on nebulizer treatments (3) Smtvp-Wujfjveea-Gvsmz syndrome Is this a current diagnosis for this admission?: Yes (4) Coronary artery disease Qualifiers: Coronary Disease-Associated Artery/Lesion type: [place] artery [place] vs. transplanted heart: [place] heart Associated angina: angina presence unspecified Qualified Code(s): I25.10 - Atherosclerotic heart disease of [place] coronary artery without angina pectoris Is this a current diagnosis for this admission?: Yes (5) End stage chronic obstructive pulmonary disease Is this a current diagnosis for this admission?: Yes (6) GERD (gastroesophageal reflux disease) Qualifiers: Esophagitis presence: without esophagitis Qualified Code(s): K21.9 - Gastro-esophageal reflux disease without esophagitis Is this a current diagnosis for this admission?: Yes - Time Time Spent with patient: 15-24 minutes Medications reviewed and adjusted accordingly: Yes Anticipated discharge: Home Within: Other - Plan Summary Plan Summary: Continues to current medications
[2018-04-09] MEDS: FLUTICASONE/UMECLIDIN/VILANTER 100-62.5-25 MCG/DOSE IH SCH (13:51)
[2018-04-09] MEDS: ALPRAZOLAM 0.5 MG TABLET PO PRN ×2 (13:56→22:10)
[2018-04-09] MEDS: OXYCODONE-ACETAMINOPHEN 5-325 MG TABLET PO PRN (22:10)
[2018-04-10] MEDS: LEVALBUTEROL HCL NEB 1.25 MG/3 ML AMPUL NEB SCH ×7 (00:02→23:57)
[2018-04-10] MEDS: OXYCODONE-ACETAMINOPHEN 5-325 MG TABLET PO PRN ×2 (06:16→21:15)
[2018-04-10] MEDS: ALPRAZOLAM 0.5 MG TABLET PO PRN (06:16)
[2018-04-10] MEDS: BUSPIRONE HCL 10 MG TABLET PO SCH ×3 (06:16→21:15)
[2018-04-10] MEDS: ROPINIROLE HCL 1 MG TABLET PO SCH ×3 (06:17→21:17)
[2018-04-10 06:50] LABS: ANION GAP 7 (5-19); BLOOD UREA NITROGEN 28 mg/dL (7-20); CALCIUM 8.8 mg/dL (8.4-10.2); CARBON DIOXIDE 24 mmol/L (22-30); CHLORIDE 107 mmol/L (98-107); GLUCOSE 93 mg/dL (75-110); POTASSIUM 4.7 mmol/L (3.6-5.0); SODIUM 138.1 mmol/L (137-145)
[2018-04-10] MEDS: FIDAXOMICIN 200 MG TABLET PO SCH ×2 (09:19→18:04)
[2018-04-10] MEDS: CITALOPRAM HYDROBROMIDE 20 MG TABLET PO SCH (09:19)
[2018-04-10] MEDS: ACETAZOLAMIDE 250 MG TABLET PO SCH ×2 (09:19→21:16)
[2018-04-10] MEDS: MONTELUKAST SODIUM 10 MG TABLET PO SCH (09:19)
[2018-04-10] MEDS: ENOXAPARIN SODIUM INJ 40 MG/0.4 ML DISP.SYRIN SUBCUT SCH (09:20)
[2018-04-10] MEDS: CHOLESTYRAMINE/ASPARTAME 4 GM PACKET PO SCH (09:20)
[2018-04-10] MEDS: NYSTATIN TOPICAL POWDER 15 GM TP SCH ×2 (09:20→18:04)
[2018-04-10] MEDS: FLUTICASONE/UMECLIDIN/VILANTER 100-62.5-25 MCG/DOSE IH SCH (09:21)
--- NOTE | 2018-04-10 16:31 | PDOC PROGRESS REPORT ---
Subjective Progress Note for:: 04/10/18 Subjective:: Patient reported some formed stool. No nausea, vomiting or abdominalpain. No fever or chills. No chest pain. breathing improving but coughing and expectoration persist. Reason For Visit: ACUTE HYPOXEMIC RESPIRATORY FAILURE, EXACERBATED Physical Exam Vital Signs: Temp Pulse Resp BP Pulse Ox 97.4 F 103 H 18 114/63 88 L 04/10/18 03:03 04/10/18 08:16 04/10/18 08:16 04/10/18 03:03 04/10/18 08:16 Intake & Output 04/09/18 04/10/18 04/11/18 06:59 06:59 06:59 Intake Total 1663 1060 Balance 1663 1060 Weight 36.9 kg 48.8 kg Physical Exam: General appearance: PRESENT: mild distress - with breathing. remain on supplemental oxygen via nasal cannula. Head exam: PRESENT: atraumatic, normocephalic Mouth exam: PRESENT: moist Respiratory exam: PRESENT: minimal rhonchi - expiratory phase. Cardiovascular exam: PRESENT: RRR, +S1, +S2. ABSENT: diastolic murmur, rubs, systolic murmur Vascular exam: ABSENT: pallor GI/Abdominal exam: PRESENT: normal bowel sounds, soft. ABSENT: distended, guarding, mass, organomegaly, rebound, tenderness Extremities exam: ABSENT: pedal edema Neurological exam: PRESENT: alert, awake, oriented to person, oriented to place, oriented to time, oriented to situation, CN II-XII grossly intact. ABSENT: motor sensory deficit Psychiatric exam: PRESENT: appropriate affect, normal mood. ABSENT: homicidal ideation, suicidal ideation Skin exam: PRESENT: dry, warm Results Laboratory Results: 04/09/18 06:40 04/10/18 06:20 04/10/18 06:20 Sodium 138.1 Potassium 4.7 Chloride 107 Carbon Dioxide 24 Anion Gap 7 BUN 28 H Creatinine 0.90 Est GFR ( Amer) > 60 Est GFR (Non-Af Amer) > 60 Glucose 93 Calcium 8.8 04/02/18 04/02/18 04/02/18 14:05 14:05 14:05 Creatine Kinase 32 CK-MB (CK-2) 0.82 Troponin I < 0.012 NT-Pro-B Natriuret Pep 2270 H 04/02/18 04/02/1804/03/19 21:25 21:25 03:40 Creatine Kinase < 20 L < 20 L CK-MB (CK-2) 0.72 Troponin I < 0.012 NT-Pro-B Natriuret Pep 04/03/18 04/03/18 04/03/18 03:40 03:40 10:30 Creatine Kinase < 20 L CK-MB (CK-2) 0.86 Troponin I < 0.012 NT-Pro-B Natriuret Pep 2050 H 04/03/18 10:30 Creatine Kinase CK-MB (CK-2) 0.98 Troponin I < 0.012 NT-Pro-B Natriuret Pep Impressions: Chest X-Ray 04/02/18 14:03 IMPRESSION: Mild increased interstitial prominence, early interstitial edema versus atypical infectious process. No consolidation or pleural effusion. Assessment & Plan - Diagnosis (1) Decompensated COPD with exacerbation (chronic obstructive pulmonary disease) Is this a current diagnosis for this admission?: Yes (2) End stage chronic obstructive pulmonary disease Is this a current diagnosis for this admission?: Yes (3) HTN (hypertension) Qualifiers: Hypertension type: essential hypertension Qualified Code(s): I10 - Essential (primary) hypertension Is this a current diagnosis for this admission?: Yes (4) HLD (hyperlipidemia) Qualifiers: Hyperlipidemia type: pure hypercholesterolemia Qualified Code(s): E78.00 - Pure hypercholesterolemia, unspecified Is this a current diagnosis for this admission?: Yes (5) Oxsra-Pzaqagxum-Gdbhw syndrome Is this a current diagnosis for this admission?: Yes (6) Mixed anxiety and depressive disorder Is this a current diagnosis for this admission?: Yes (7) Protein-calorie undernutrition Qualifiers: Protein-calorie malnutrition severity: moderate Qualified Code(s): E44.0 - Moderate protein-calorie malnutrition Is this a current diagnosis for this admission?: Yes (8) Osteoarthritis Qualifiers: Osteoarthritis location: unspecified site Is this a current diagnosis for this admission?: Yes (9) Chronic pain syndrome Is this a current diagnosis for this admission?: Yes (10) C. difficile diarrhea Is this a current diagnosis for this admission?: Yes - Time Time Spent with patient: 25-34 minutes Medications reviewed and adjusted accordingly: Yes Anticipated discharge: Home with Homehealth Within: Other - Inpatient Certification Based on my medical assessment, after consideration of the patient's comorbidities, presenting symptoms, or acuity I expect that the services needed warrant INPATIENT care.: Yes I certify that my determination is in accordance with my understanding of Medicare's requirements for reasonable and necessary INPATIENT services [42 CFR 412.3e].: Yes Medical Necessity: Significant Comorbidiites Make Outpatient Treatment Too Risky, Need Close Monitoring Due to Risk of Patient Decompensation, Need For IV Fluids, Need For Continuous Telemetry Monitoring, Need for Nebulizer Therapy and Monitoring of Response, Risk of Complication if Not Cared For in Hospital, Risk of Diagnosis Which Will Require Inpatient Eval/Care/Monitoring Post Hospital Care: D/C Home Improvement Advisor Documentation - Plan Summary Plan Summary: Blood and urine cultures are no growth for appropriate incubation time. Continue current medication management. Obtain CBC with diff in am.
--- NOTE | 2018-04-10 16:32 | PDOC PROGRESS REPORT ---
Subjective Progress Note for:: 04/07/18 Subjective:: Patient reported some improvement in her diarrhea frequency. No abdominal pain, nausea or vomiting. No fever or chills. No chest pain. Remain on supplemental oxygen via nasal cannula and BiPAP support while sleeping. Reason For Visit: ACUTE HYPOXEMIC RESPIRATORY FAILURE, EXACERBATED Physical Exam Vital Signs: Temp Pulse Resp BP Pulse Ox 98.1 F 110 H 16 118/59 L 97 04/07/18 10:40 04/07/18 13:48 04/07/18 12:15 04/07/18 10:40 04/07/18 12:15 Intake & Output 04/06/18 04/07/18 04/08/18 06:59 06:59 06:59 Intake Total 1513 970 225 Output Total 2 Balance 1511 970 225 Weight 41 kg 40.1 kg Physical Exam: General appearance: PRESENT: mild distress - with breathing. remain on supplemntal oxygne via nasal cannula. Head exam: PRESENT: atraumatic, normocephalic Mouth exam: PRESENT: moist Respiratory exam: PRESENT: rhonchi - expiratory phase. Cardiovascular exam: PRESENT: RRR, +S1, +S2. ABSENT: diastolic murmur, rubs, systolic murmur Vascular exam: ABSENT: pallor GI/Abdominal exam: PRESENT: normal bowel sounds, soft. ABSENT: distended, guarding, mass, organomegaly, rebound, tenderness Extremities exam: ABSENT: pedal edema Neurological exam: PRESENT: alert, awake, oriented to person, oriented to place, oriented to time, oriented to situation, CN II-XII grossly intact. ABSENT: motor sensory deficit Psychiatric exam: PRESENT: appropriate affect, normal mood. ABSENT: homicidal ideation, suicidal ideation Skin exam: PRESENT: dry, warm Results Laboratory Results: 04/07/18 04:00 04/07/18 04:00 04/07/18 04/07/18 04:00 04:00 WBC 28.0 H RBC 3.59 L Hgb 10.0 L Hct 31.2 L MCV 87 MCH 27.8 MCHC 32.0 RDW 19.7 H Plt Count 741 H Seg Neutrophils % Not Reportable Lymphocytes % Not Reportable Monocytes % Not Reportable Eosinophils % Not Reportable Basophils % Not Reportable Absolute Neutrophils Not Reportable Absolute Lymphocytes Not Reportable Absolute Monocytes Not Reportable Absolute Eosinophils Not Reportable Absolute Basophils Not Reportable Sodium 140.5 Potassium 4.7 Chloride 107 Carbon Dioxide 29 Anion Gap 5 BUN 22 H Creatinine 0.87 Est GFR ( Amer) > 60 Est GFR (Non-Af Amer) > 60 Glucose 95 Calcium 9.2 04/02/18 14:52 Blood Blood Culture - Final NO GROWTH IN 5 DAYS 04/02/18 04/02/18 04/02/18 14:05 14:05 14:05 Creatine Kinase 32 CK-MB (CK-2) 0.82 Troponin I < 0.012 NT-Pro-B Natriuret Pep 2270 H 04/02/18 04/02/18 04/03/18 21:25 21:25 03:40 Creatine Kinase < 20 L < 20 L CK-MB (CK-2) 0.72 Troponin I < 0.012 NT-Pro-B Natriuret Pep 04/03/18 04/03/18 04/03/18 03:40 03:40 10:30 Creatine Kinase < 20 L CK-MB (CK-2) 0.86 Troponin I < 0.012 NT-Pro-B Natriuret Pep 2050 H 04/03/18 10:30 Creatine Kinase CK-MB (CK-2) 0.98 Troponin I < 0.012 NT-Pro-B Natriuret Pep Impressions: Chest X-Ray 04/02/18 14:03 IMPRESSION: Mild increased interstitial prominence, early interstitial edema versus atypical infectious process. No consolidation or pleural effusion. Assessment & Plan - Diagnosis (1) Decompensated COPD with exacerbation (chronic obstructive pulmonary disease) Is this a current diagnosis for this admission?: Yes Plan: Leukocytosis is probably due to steroid therapy. D/C IV Solu Medrol. Continue other current medication management. (2) End stage chronic obstructive pulmonary disease Is this a current diagnosis for this admission?: Yes Plan: D/C IV Solu Medrol. Continue all other current medication management. (3) HTN (hypertension) Qualifiers: Hypertension type: essential hypertension Qualified Code(s): I10 - Essential (primary) hypertension Is this a current diagnosis for this admission?: Yes (4) HLD (hyperlipidemia) Qualifiers: Hyperlipidemia type: pure hypercholesterolemia Qualified Code(s): E78.00 - Pure hypercholesterolemia, unspecified Is this a current diagnosis for this admission?: Yes (6) Mixed anxiety and depressive disorder Is this a current diagnosis for this admission?: Yes (7) Protein-calorie undernutrition Qualifiers: Protein-calorie malnutrition severity: moderate Qualified Code(s): E44.0 - Moderate protein-calorie malnutrition Is this a current diagnosis for this admission?: Yes (8) Osteoarthritis Qualifiers: Osteoarthritis location: unspecified site Is this a current diagnosis for this admission?: Yes (9) Chronic pain syndrome Is this a current diagnosis for this admission?: Yes (10) C. difficile diarrhea Is this a current diagnosis for this admission?: Yes Plan: D/C oral Vancomycin. Start on Dificid 200 mg po bid in view of her worsening leukocytosis. There is consideration of Steroid contribution to her leukocytosis. - Time Time Spent with patient: 25-34 minutes Medications reviewed and adjusted accordingly: Yes Anticipated discharge: Home with Homehealth Within: Other - Inpatient Certification I certify that my determination is in accordance with my understanding of Medicare's requirements for reasonable and necessary INPATIENT services [42 CFR 412.3e].: Yes Medical Necessity: Significant Comorbidiites Make Outpatient Treatment Too Risky, Need Close Monitoring Due to Risk of Patient Decompensation, Need For Continuous Telemetry Monitoring, Need for Nebulizer Therapy and Monitoring of Response, Risk of Complication if Not Cared For in Hospital, Risk of Diagnosis Which Will Require Inpatient Eval/Care/Monitoring Post Hospital Care: D/C Delivery Table Operator Documentation - Plan Summary Plan Summary: See physician orders as per above outline care plan.
[2018-04-10] MEDS: OXYCODONE HCL IR 5 MG TABLET PO PRN (21:15)
[2018-04-10] MEDS: ZOLPIDEM TARTRATE 5 MG TABLET PO PRN (21:16)
[2018-04-11 04:05] LABS: HEMATOCRIT 33.6 % (36.0-47.0); HEMOGLOBIN 10.7 g/dL (12.0-15.5); MEAN CORPUSCULAR HEMOGLOBIN 27.5 pg (27.0-33.4); MEAN CORPUSCULAR HGB CONC 31.9 g/dL (32.0-36.0); MEAN CORPUSCULAR VOLUME 86 fl (80-97); PLATELET COUNT 443 10^3/uL (150-450); RED BLOOD COUNT 3.89 10^6/uL (3.72-5.28); RED CELL DISTRIBUTION WIDTH 20.6 % (11.5-14.0); WHITE BLOOD COUNT 23.8 10^3/uL (4.0-10.5)
[2018-04-11] MEDS: LEVALBUTEROL HCL NEB 1.25 MG/3 ML AMPUL NEB SCH ×6 (04:14→23:49)
[2018-04-11 04:40] LABS: ABSOLUTE LYMPHOCYTES# (MANUAL) 4.8 10^3/uL (0.5-4.7); ABSOLUTE MONOCYTES # (MANUAL) 2.1 10^3/uL (0.1-1.4); ABSOLUTE NEUTROPHILS# (MANUAL) 16.9 10^3/uL (1.7-8.2); BASOPHILS % (MANUAL) 0 % (0-2); EOSINOPHILS % (MANUAL) 0 % (0-6); LYMPHOCYTES % (MANUAL) 20 % (13-45); MONOCYTES % (MANUAL) 9 % (3-13); TOTAL CELLS COUNTED 100
[2018-04-11 04:45] LABS: ANISOCYTOSIS 2+; OVALOCYTES 2+; POIKILOCYTOSIS 2+; TEAR DROP CELLS SLIGHT; TOXIC GRANULATION 1+; TOXIC VACUOLATION PRESENT
[2018-04-11 04:46] LABS: PLATELET COMMENT ADEQUATE
[2018-04-11] MEDS: BUSPIRONE HCL 10 MG TABLET PO SCH ×3 (05:03→22:53)
[2018-04-11] MEDS: ROPINIROLE HCL 1 MG TABLET PO SCH ×3 (05:03→22:52)
[2018-04-11] MEDS: FIDAXOMICIN 200 MG TABLET PO SCH ×2 (10:08→18:32)
[2018-04-11] MEDS: ACETAZOLAMIDE 250 MG TABLET PO SCH ×2 (10:08→22:54)
[2018-04-11] MEDS: MONTELUKAST SODIUM 10 MG TABLET PO SCH (10:08)
[2018-04-11] MEDS: CITALOPRAM HYDROBROMIDE 20 MG TABLET PO SCH (10:08)
[2018-04-11] MEDS: CHOLESTYRAMINE/ASPARTAME 4 GM PACKET PO SCH (10:08)
[2018-04-11] MEDS: ENOXAPARIN SODIUM INJ 40 MG/0.4 ML DISP.SYRIN SUBCUT SCH (10:09)
[2018-04-11] MEDS: FLUTICASONE/UMECLIDIN/VILANTER 100-62.5-25 MCG/DOSE IH SCH (10:09)
[2018-04-11] MEDS: NYSTATIN TOPICAL POWDER 15 GM TP SCH (10:10)
[2018-04-11] MEDS: ALPRAZOLAM 0.5 MG TABLET PO PRN ×2 (14:22→22:50)
--- NOTE | 2018-04-11 16:40 | PDOC PROGRESS REPORT ---
Subjective Progress Note for:: 04/11/18 Subjective:: Patient reported persistent loose stool but not lisa diarrhea. Most bowel movement follow ingestion of Ensure oral supplement. No nausea or vomiting. No abdominal pain. No chest pain. Breathing fair on supplemental oxygen. Reason For Visit: ACUTE HYPOXEMIC RESPIRATORY FAILURE, EXACERBATED Physical Exam Vital Signs: Temp Pulse Resp BP Pulse Ox 97.7 F 110 H 16 121/54 L 96 04/11/18 12:12 04/11/18 15:49 04/11/18 15:49 04/11/18 12:12 04/11/18 15:49 Intake & Output 04/10/18 04/11/18 04/12/18 06:59 06:59 06:59 Intake Total 1060 1074 474 Balance 1060 1074 474 Weight 48.8 kg 47.7 kg Physical Exam: General appearance: PRESENT: mild distress - with breathing. remain on supplemental oxygen via nasal cannula. Head exam: PRESENT: atraumatic, normocephalic Mouth exam: PRESENT: moist Respiratory exam: PRESENT: minimal rhonchi - expiratory phase. Cardiovascular exam: PRESENT: RRR, +S1, +S2. ABSENT: diastolic murmur, rubs, systolic murmur Vascular exam: ABSENT: pallor GI/Abdominal exam: PRESENT: normal bowel sounds, soft. ABSENT: distended, guarding, mass, organomegaly, rebound, tenderness Extremities exam: ABSENT: pedal edema Neurological exam: PRESENT: alert, awake, oriented to person, oriented to place, oriented to time, oriented to situation, CN II-XII grossly intact. ABSENT: motor sensory deficit Psychiatric exam: PRESENT: appropriate affect, normal mood. ABSENT: homicidal ideation, suicidal ideation Skin exam: PRESENT: dry, warm, persistent skin yeast infection bilateral beneath breast tissue fold and vulva regions. Results Laboratory Results: 04/11/18 03:55 04/10/18 06:20 04/11/18 03:55 WBC 23.8 H RBC 3.89 Hgb 10.7 L Hct 33.6 L MCV 86 MCH 27.5 MCHC 31.9 L RDW 20.6 H Plt Count 443 Seg Neutrophils % Not Reportable Lymphocytes % Not Reportable Monocytes % Not Reportable Eosinophils % Not Reportable Basophils % Not Reportable Absolute Neutrophils Not Reportable Absolute Lymphocytes Not Reportable Absolute Monocytes Not Reportable Absolute Eosinophils Not Reportable Absolute Basophils Not Reportable 04/02/18 04/02/18 04/02/18 14:05 14:05 14:05 Creatine Kinase 32 CK-MB (CK-2) 0.82 Troponin I < 0.012 NT-Pro-B Natriuret Pep 2270 H 04/02/18 04/02/18 04/03/18 21:25 21:25 03:40 Creatine Kinase < 20 L < 20 L CK-MB (CK-2) 0.72 Troponin I < 0.012 NT-Pro-B Natriuret Pep 04/03/18 04/03/18 04/03/18 03:40 03:40 10:30 Creatine Kinase < 20 L CK-MB (CK-2) 0.86 Troponin I < 0.012 NT-Pro-B Natriuret Pep 2050 H 04/03/18 10:30 Creatine Kinase CK-MB (CK-2) 0.98 Troponin I < 0.012 NT-Pro-B Natriuret Pep Impressions: Chest X-Ray 04/02/18 14:03 IMPRESSION: Mild increased interstitial prominence, early interstitial edema versus atypical infectious process. No consolidation or pleural effusion. Assessment & Plan - Diagnosis (1) Decompensated COPD with exacerbation (chronic obstructive pulmonary disease) Is this a current diagnosis for this admission?: Yes (2) End stage chronic obstructive pulmonary disease Is this a current diagnosis for this admission?: Yes (3) HTN (hypertension) Qualifiers: Hypertension type: essential hypertension Qualified Code(s): I10 - Essential (primary) hypertension Is this a current diagnosis for this admission?: Yes (4) HLD (hyperlipidemia) Qualifiers: Hyperlipidemia type: pure hypercholesterolemia Qualified Code(s): E78.00 - Pure hypercholesterolemia, unspecified Is this a current diagnosis for this admission?: Yes (5) Zcfhm-Xewvykvvh-Ucclo syndrome Is this a current diagnosis for this admission?: Yes (6) Mixed anxiety and depressive disorder Is this a current diagnosis for this admission?: Yes (7) Protein-calorie undernutrition Qualifiers: Protein-calorie malnutrition severity: moderate Qualified Code(s): E44.0 - Moderate protein-calorie malnutrition Is this a current diagnosis for this admission?: Yes (8) Osteoarthritis Qualifiers: Osteoarthritis location: unspecified site Is this a current diagnosis for this admission?: Yes (9) Chronic pain syndrome Is this a current diagnosis for this admission?: Yes (10) C. difficile diarrhea Is this a current diagnosis for this admission?: Yes (11) Yeast dermatitis Is this a current diagnosis for this admission?: Yes Plan: Continue Nystatin powder application to breast region lesions. (12) Yeast infection involving the vagina and surrounding area Is this a current diagnosis for this admission?: Yes Plan: Start on Diflucan 100 mg po daily. - Time Time Spent with patient: 25-34 minutes Medications reviewed and adjusted accordingly: Yes Anticipated discharge: Home with Homehealth Within: Other - Inpatient Certification Based on my medical assessment, after consideration of the patient's comorbidities, presenting symptoms, or acuity I expect that the services needed warrant INPATIENT care.: Yes I certify that my determination is in accordance with my understanding of Medicare's requirements for reasonable and necessary INPATIENT services [42 CFR 412.3e].: Yes Medical Necessity: Significant Comorbidiites Make Outpatient Treatment Too Risky, Need Close Monitoring Due to Risk of Patient Decompensation, Need For Continuous Telemetry Monitoring, Need for Nebulizer Therapy and Monitoring of Response, Risk of Complication if Not Cared For in Hospital, Risk of Diagnosis Which Will Require Inpatient Eval/Care/Monitoring Post Hospital Care: D/C Aws Developer Documentation - Plan Summary Plan Summary: Maintain on above outlined care plan. Obtain CBC with diff in am.
[2018-04-11] MEDS: FLUCONAZOLE 100 MG TABLET PO SCH (18:30)
[2018-04-11] MEDS: OXYCODONE-ACETAMINOPHEN 5-325 MG TABLET PO PRN (22:50)
[2018-04-11] MEDS: ZOLPIDEM TARTRATE 5 MG TABLET PO PRN (22:52)
[2018-04-12 04:53] LABS: ANION GAP 8 (5-19); BLOOD UREA NITROGEN 29 mg/dL (7-20); CALCIUM 8.8 mg/dL (8.4-10.2); CARBON DIOXIDE 24 mmol/L (22-30); CHLORIDE 105 mmol/L (98-107); GLUCOSE 94 mg/dL (75-110); POTASSIUM 4.6 mmol/L (3.6-5.0); SODIUM 136.5 mmol/L (137-145)
[2018-04-12 04:55] LABS: HEMATOCRIT 33.1 % (36.0-47.0); HEMOGLOBIN 10.5 g/dL (12.0-15.5); MEAN CORPUSCULAR HEMOGLOBIN 27.6 pg (27.0-33.4); MEAN CORPUSCULAR HGB CONC 31.7 g/dL (32.0-36.0); MEAN CORPUSCULAR VOLUME 87 fl (80-97); PLATELET COUNT 415 10^3/uL (150-450); RED BLOOD COUNT 3.81 10^6/uL (3.72-5.28); RED CELL DISTRIBUTION WIDTH 20.4 % (11.5-14.0); WHITE BLOOD COUNT 22.5 10^3/uL (4.0-10.5)
[2018-04-12] MEDS: LEVALBUTEROL HCL NEB 1.25 MG/3 ML AMPUL NEB SCH ×5 (05:07→21:07)
[2018-04-12 05:32] LABS: ABSOLUTE LYMPHOCYTES# (MANUAL) 3.2 10^3/uL (0.5-4.7); ABSOLUTE MONOCYTES # (MANUAL) 1.6 10^3/uL (0.1-1.4); ABSOLUTE NEUTROPHILS# (MANUAL) 17.8 10^3/uL (1.7-8.2); BAND NEUTROPHILS % (MANUAL) 1 % (3-5); BASOPHILS % (MANUAL) 0 % (0-2); EOSINOPHILS % (MANUAL) 0 % (0-6); LYMPHOCYTES % (MANUAL) 14 % (13-45); METAMYELOCYTES % (MANUAL) 8 % (0); MONOCYTES % (MANUAL) 7 % (3-13); MYELOCYTES % (MANUAL) 3 % (0); SEGMENTED NEUTROPHILS % (MAN) 67 % (42-78); TOTAL CELLS COUNTED 100
[2018-04-12 05:36] LABS: POLYCHROMASIA SLIGHT; TOXIC GRANULATION 1+; TOXIC VACUOLATION PRESENT
[2018-04-12 05:37] LABS: ANISOCYTOSIS 3+; OVALOCYTES SLIGHT; PLATELET COMMENT ADEQUATE; POIKILOCYTOSIS 1+; SCHISTOCYTES SLIGHT; TEAR DROP CELLS SLIGHT
[2018-04-12] MEDS: ROPINIROLE HCL 1 MG TABLET PO SCH ×3 (05:54→21:56)
[2018-04-12] MEDS: BUSPIRONE HCL 10 MG TABLET PO SCH ×3 (05:55→21:56)
[2018-04-12] MEDS: OXYCODONE HCL IR 5 MG TABLET PO PRN ×2 (10:08→21:55)
[2018-04-12] MEDS: OXYCODONE-ACETAMINOPHEN 5-325 MG TABLET PO PRN ×2 (10:09→21:54)
[2018-04-12] MEDS: CITALOPRAM HYDROBROMIDE 20 MG TABLET PO SCH (10:09)
[2018-04-12] MEDS: MONTELUKAST SODIUM 10 MG TABLET PO SCH (10:09)
[2018-04-12] MEDS: ACETAZOLAMIDE 250 MG TABLET PO SCH ×2 (10:09→21:55)
[2018-04-12] MEDS: FIDAXOMICIN 200 MG TABLET PO SCH ×2 (10:10→18:05)
[2018-04-12] MEDS: CHOLESTYRAMINE/ASPARTAME 4 GM PACKET PO SCH (10:11)
[2018-04-12] MEDS: ENOXAPARIN SODIUM INJ 40 MG/0.4 ML DISP.SYRIN SUBCUT SCH (10:11)
[2018-04-12] MEDS: FLUTICASONE/UMECLIDIN/VILANTER 100-62.5-25 MCG/DOSE IH SCH (10:12)
[2018-04-12] MEDS: ALPRAZOLAM 0.5 MG TABLET PO PRN (10:18)
[2018-04-12] MEDS: FLUCONAZOLE 100 MG TABLET PO SCH (18:05)
--- NOTE | 2018-04-12 18:24 | PDOC PROGRESS REPORT ---
Subjective Progress Note for:: 04/12/18 Subjective:: No reported diarrhea so far today. No nausea or vomiting. No abdominal pain. No chest pain. Remain on nasal cannula supplemental oxygen. Reason For Visit: ACUTE HYPOXEMIC RESPIRATORY FAILURE, EXACERBATED Physical Exam Vital Signs: Temp Pulse Resp BP Pulse Ox 98.9 F 94 20 106/49 L 99 04/12/18 07:10 04/12/18 07:10 04/12/18 07:10 04/12/18 07:10 04/12/18 07:10 Intake & Output 04/11/18 04/12/18 04/13/18 06:59 06:59 06:59 Intake Total 1074 1111 Balance 1074 1111 Weight 47.7 kg 47.3 kg Physical Exam: General appearance: PRESENT: mild distress - with breathing. remain on supplemental oxygen via nasal cannula. Head exam: PRESENT: atraumatic, normocephalic Mouth exam: PRESENT: moist Respiratory exam: PRESENT: minimal rhonchi - expiratory phase. Cardiovascular exam: PRESENT: RRR, +S1, +S2. ABSENT: diastolic murmur, rubs, systolic murmur Vascular exam: ABSENT: pallor GI/Abdominal exam: PRESENT: normal bowel sounds, soft. ABSENT: distended, guarding, mass, organomegaly, rebound, tenderness Extremities exam: ABSENT: pedal edema Neurological exam: PRESENT: alert, awake, oriented to person, oriented to place, oriented to time, oriented to situation, CN II-XII grossly intact. ABSENT: motor sensory deficit Psychiatric exam: PRESENT: appropriate affect, normal mood. ABSENT: homicidal ideation, suicidal ideation Skin exam: PRESENT: dry, warm Results Laboratory Results: 04/12/18 04:21 04/12/18 04:21 04/12/18 04/12/18 04:21 04:21 WBC 22.5 H RBC 3.81 Hgb 10.5 L Hct 33.1 L MCV 87 MCH 27.6 MCHC 31.7 L RDW 20.4 H Plt Count 415 Seg Neutrophils % Not Reportable Lymphocytes % Not Reportable Monocytes % Not Reportable Eosinophils % Not Reportable Basophils % Not Reportable Absolute Neutrophils Not Reportable Absolute Lymphocytes Not Reportable Absolute Monocytes Not Reportable Absolute Eosinophils Not Reportable Absolute Basophils Not Reportable Sodium 136.5 L Potassium 4.6 Chloride 105 Carbon Dioxide 24 Anion Gap 8 BUN 29 H Creatinine 0.97 Est GFR ( Amer) > 60 Est GFR (Non-Af Amer) 56 L Glucose 94 Calcium 8.8 04/02/18 04/02/18 04/02/18 14:05 14:05 14:05 Creatine Kinase 32 CK-MB (CK-2) 0.82 Troponin I < 0.012 NT-Pro-B Natriuret Pep 2270 H 04/02/18 04/02/18 04/03/18 21:25 21:25 03:40 Creatine Kinase < 20 L < 20 L CK-MB (CK-2) 0.72 Troponin I < 0.012 NT-Pro-B Natriuret Pep 04/03/18 04/03/18 04/03/18 03:40 03:40 10:30 Creatine Kinase < 20 L CK-MB (CK-2) 0.86 Troponin I < 0.012 NT-Pro-B Natriuret Pep 2050 H 04/03/18 10:30 Creatine Kinase CK-MB (CK-2) 0.98 Troponin I < 0.012 NT-Pro-B Natriuret Pep Impressions: Chest X-Ray 04/02/18 14:03 IMPRESSION: Mild increased interstitial prominence, early interstitial edema versus atypical infectious process. No consolidation or pleural effusion. Assessment & Plan - Diagnosis (1) Decompensated COPD with exacerbation (chronic obstructive pulmonary disease) Is this a current diagnosis for this admission?: Yes (2) End stage chronic obstructive pulmonary disease Is this a current diagnosis for this admission?: Yes (3) HTN (hypertension) Qualifiers: Hypertension type: essential hypertension Qualified Code(s): I10 - Essential (primary) hypertension Is this a current diagnosis for this admission?: Yes (4) HLD (hyperlipidemia) Qualifiers: Hyperlipidemia type: pure hypercholesterolemia Qualified Code(s): E78.00 - Pure hypercholesterolemia, unspecified Is this a current diagnosis for this admission?: Yes (5) Flffz-Qpwcqnngs-Svfod syndrome Is this a current diagnosis for this admission?: Yes (6) Mixed anxiety and depressive disorder Is this a current diagnosis for this admission?: Yes (7) Protein-calorie undernutrition Qualifiers: Protein-calorie malnutrition severity: moderate Qualified Code(s): E44.0 - Moderate protein-calorie malnutrition Is this a current diagnosis for this admission?: Yes (8) Osteoarthritis Qualifiers: Osteoarthritis location: unspecified site Is this a current diagnosis for this admission?: Yes (9) Chronic pain syndrome Is this a current diagnosis for this admission?: Yes (10) C. difficile diarrhea Is this a current diagnosis for this admission?: Yes (11) Yeast dermatitis Is this a current diagnosis for this admission?: Yes (12) Yeast infection involving the vagina and surrounding area Is this a current diagnosis for this admission?: Yes - Time Time Spent with patient: 25-34 minutes Medications reviewed and adjusted accordingly: Yes Within: Other - Inpatient Certification Based on my medical assessment, after consideration of the patient's comorbidities, presenting symptoms, or acuity I expect that the services needed warrant INPATIENT care.: Yes I certify that my determination is in accordance with my understanding of Medicare's requirements for reasonable and necessary INPATIENT services [42 CFR 412.3e].: Yes Medical Necessity: Significant Comorbidiites Make Outpatient Treatment Too Risky, Need Close Monitoring Due to Risk of Patient Decompensation, Need For Continuous Telemetry Monitoring, Need for Nebulizer Therapy and Monitoring of Response, Risk of Complication if Not Cared For in Hospital, Risk of Diagnosis Which Will Require Inpatient Eval/Care/Monitoring Post Hospital Care: D/C Customer Experience Analyst Documentation - Plan Summary Plan Summary: Continue current medication management.
[2018-04-12] MEDS: ZOLPIDEM TARTRATE 5 MG TABLET PO PRN (21:55)
[2018-04-13] MEDS: LEVALBUTEROL HCL NEB 1.25 MG/3 ML AMPUL NEB SCH ×6 (00:05→20:41)
[2018-04-13 04:37] LABS: HEMATOCRIT 32.5 % (36.0-47.0); HEMOGLOBIN 10.3 g/dL (12.0-15.5); MEAN CORPUSCULAR HEMOGLOBIN 27.8 pg (27.0-33.4); MEAN CORPUSCULAR HGB CONC 31.7 g/dL (32.0-36.0); MEAN CORPUSCULAR VOLUME 88 fl (80-97); PLATELET COUNT 415 10^3/uL (150-450); RED BLOOD COUNT 3.71 10^6/uL (3.72-5.28); RED CELL DISTRIBUTION WIDTH 20.3 % (11.5-14.0); WHITE BLOOD COUNT 20.5 10^3/uL (4.0-10.5)
[2018-04-13 05:00] LABS: ABSOLUTE LYMPHOCYTES# (MANUAL) 2.5 10^3/uL (0.5-4.7); ABSOLUTE MONOCYTES # (MANUAL) 3.9 10^3/uL (0.1-1.4); ABSOLUTE NEUTROPHILS# (MANUAL) 13.9 10^3/uL (1.7-8.2); BAND NEUTROPHILS % (MANUAL) 5 % (3-5); BASOPHILS % (MANUAL) 0 % (0-2); EOSINOPHILS % (MANUAL) 1 % (0-6); LYMPHOCYTES % (MANUAL) 12 % (13-45); METAMYELOCYTES % (MANUAL) 1 % (0); MONOCYTES % (MANUAL) 19 % (3-13); SEGMENTED NEUTROPHILS % (MAN) 62 % (42-78); TOTAL CELLS COUNTED 100
[2018-04-13 05:01] LABS: ANISOCYTOSIS 2+; PLATELET COMMENT ADEQUATE; TOXIC GRANULATION 1+; TOXIC VACUOLATION PRESENT
[2018-04-13] MEDS: ALPRAZOLAM 0.5 MG TABLET PO PRN ×2 (05:11→13:39)
[2018-04-13] MEDS: BUSPIRONE HCL 10 MG TABLET PO SCH ×3 (05:11→21:53)
[2018-04-13] MEDS: ROPINIROLE HCL 1 MG TABLET PO SCH ×3 (05:15→21:55)
[2018-04-13] MEDS: ENOXAPARIN SODIUM INJ 40 MG/0.4 ML DISP.SYRIN SUBCUT SCH (10:45)
[2018-04-13] MEDS: FLUTICASONE/UMECLIDIN/VILANTER 100-62.5-25 MCG/DOSE IH SCH (10:45)
[2018-04-13] MEDS: FIDAXOMICIN 200 MG TABLET PO SCH ×2 (10:46→17:29)
[2018-04-13] MEDS: MONTELUKAST SODIUM 10 MG TABLET PO SCH (10:46)
[2018-04-13] MEDS: ACETAZOLAMIDE 250 MG TABLET PO SCH ×2 (10:46→21:53)
[2018-04-13] MEDS: CHOLESTYRAMINE/ASPARTAME 4 GM PACKET PO SCH (10:46)
[2018-04-13] MEDS: CITALOPRAM HYDROBROMIDE 20 MG TABLET PO SCH (10:46)
[2018-04-13] MEDS: OXYCODONE HCL IR 5 MG TABLET PO PRN ×2 (13:36→21:54)
[2018-04-13] MEDS: OXYCODONE-ACETAMINOPHEN 5-325 MG TABLET PO PRN ×2 (13:39→21:54)
[2018-04-13 14:02] LABS: BAND NEUTROPHILS % (MANUAL) 5 % (3-5); METAMYELOCYTES % (MANUAL) 2 % (0); MYELOCYTES % (MANUAL) 3 % (0); PROMYELOCYTES % (MANUAL) 1 % (0)
[2018-04-13 14:03] LABS: SEGMENTED NEUTROPHILS % (MAN) 60 % (42-78)
[2018-04-13] MEDS: FLUCONAZOLE 100 MG TABLET PO SCH (17:29)
--- NOTE | 2018-04-13 17:58 | PDOC PROGRESS REPORT ---
Subjective Progress Note for:: 04/13/18 Subjective:: No chest pain. Remain on supplemental oxygen via nasal cannula. No diarrhea, nausea or vomiting. No abdominal pain. Rash beneath breast tissue remain red and itchy. Vulva itching is better. Reason For Visit: ACUTE HYPOXEMIC RESPIRATORY FAILURE, EXACERBATED Physical Exam Vital Signs: Temp Pulse Resp BP Pulse Ox 98.4 F 81 16 110/55 L 99 04/13/18 15:13 04/13/18 16:15 04/13/18 16:15 04/13/18 15:13 04/13/18 16:15 Intake & Output 04/12/18 04/13/18 04/14/18 06:59 06:59 06:59 Intake Total 1111 473 237 Balance 1111 473 237 Weight 47.3 kg 45.5 kg Physical Exam: General appearance: PRESENT: mild distress - with breathing. remain on supplemental oxygen via nasal cannula. Head exam: PRESENT: atraumatic, normocephalic Mouth exam: PRESENT: moist Respiratory exam: PRESENT: minimal rhonchi - expiratory phase. Cardiovascular exam: PRESENT: RRR, +S1, +S2. ABSENT: diastolic murmur, rubs, systolic murmur Vascular exam: ABSENT: pallor GI/Abdominal exam: PRESENT: normal bowel sounds, soft. ABSENT: distended, gua rding, mass, organomegaly, rebound, tenderness Extremities exam: ABSENT: pedal edema Neurological exam: PRESENT: alert, awake, oriented to person, oriented to place, oriented to time, oriented to situation, CN II-XII grossly intact. ABSENT: motor sensory deficit Psychiatric exam: PRESENT: appropriate affect, normal mood. ABSENT: homicidal ideation, suicidal ideation Skin exam: PRESENT: dry, warm, scaly rash in mammary fold region bilaterally Results Laboratory Results: 04/13/18 04:00 04/12/18 04:21 04/13/18 04:00 WBC 20.5 H RBC 3.71 L Hgb 10.3 L Hct 32.5 L MCV 88 MCH 27.8 MCHC 31.7 L RDW 20.3 H Plt Count 415 Seg Neutrophils % Not Reportable Lymphocytes % Not Reportable Monocytes % Not Reportable Eosinophils % Not Reportable Basophils % Not Reportable Absolute Neutrophils Not Reportable Absolute Lymphocytes Not Reportable Absolute Monocytes Not Reportable Absolute Eosinophils Not Reportable Absolute Basophils Not Reportable 04/02/18 04/02/1804/02/19 14:05 14:05 14:05 Creatine Kinase 32 CK-MB (CK-2) 0.82 Troponin I < 0.012 NT-Pro-B Natriuret Pep 2270 H 04/02/18 04/02/18 04/03/18 21:25 21:25 03:40 Creatine Kinase < 20 L < 20 L CK-MB (CK-2) 0.72 Troponin I < 0.012 NT-Pro-B Natriuret Pep 04/03/18 04/03/18 04/03/18 03:40 03:40 10:30 Creatine Kinase < 20 L CK-MB (CK-2) 0.86 Troponin I < 0.012 NT-Pro-B Natriuret Pep 2050 H 04/03/18 10:30 Creatine Kinase CK-MB (CK-2) 0.98 Troponin I < 0.012 NT-Pro-B Natriuret Pep Impressions: Chest X-Ray 04/02/18 14:03 IMPRESSION: Mild increased interstitial prominence, early interstitial edema versus atypical infectious process. No consolidation or pleural effusion. Assessment & Plan - Diagnosis (1) Decompensated COPD with exacerbation (chronic obstructive pulmonary disease) Is this a current diagnosis for this admission?: Yes (2) End stage chronic obstructive pulmonary disease Is this a current diagnosis for this admission?: Yes (3) HTN (hypertension) Qualifiers: Hypertension type: essential hypertension Qualified Code(s): I10 - Essential (primary) hypertension Is this a current diagnosis for this admission?: Yes (4) HLD (hyperlipidemia) Qualifiers: Hyperlipidemia type: pure hypercholesterolemia Qualified Code(s): E78.00 - Pure hypercholesterolemia, unspecified Is this a current diagnosis for this admission?: Yes (5) Bsdqr-Zdwxbranp-Annlq syndrome Is this a current diagnosis for this admission?: Yes (6) Mixed anxiety and depressive disorder Is this a current diagnosis for this admission?: Yes (7) Protein-calorie undernutrition Qualifiers: Protein-calorie malnutrition severity: moderate Qualified Code(s): E44.0 - Moderate protein-calorie malnutrition Is this a current diagnosis for this admission?: Yes (8) Osteoarthritis Qualifiers: Osteoarthritis location: unspecified site Is this a current diagnosis for this admission?: Yes (9) Chronic pain syndrome Is this a current diagnosis for this admission?: Yes (10) C. difficile diarrhea Is this a current diagnosis for this admission?: Yes (11) Yeast dermatitis Is this a current diagnosis for this admission?: Yes (12) Yeast infection involving the vagina and surrounding area Is this a current diagnosis for this admission?: Yes - Time Time Spent with patient: 25-34 minutes Medications reviewed and adjusted accordingly: Yes Anticipated discharge: Home with Homehealth Within: Other - Inpatient Certification Based on my medical assessment, after consideration of the patient's comorbidities, presenting symptoms, or acuity I expect that the services needed warrant INPATIENT care.: Yes I certify that my determination is in accordance with my understanding of Medicare's requirements for reasonable and necessary INPATIENT services [42 CFR 412.3e].: Yes Medical Necessity: Significant Comorbidiites Make Outpatient Treatment Too Risky, Need Close Monitoring Due to Risk of Patient Decompensation, Need For Continuous Telemetry Monitoring, Need for Nebulizer Therapy and Monitoring of Response, Risk of Complication if Not Cared For in Hospital, Risk of Diagnosis Which Will Require Inpatient Eval/Care/Monitoring Post Hospital Care: D/C Information Broker Documentation - Plan Summary Plan Summary: Start on Clotrimazole cream topically to affected region bid. Continue all other current medication management. Possible d/c tomorrow.
[2018-04-13] MEDS: ZOLPIDEM TARTRATE 5 MG TABLET PO PRN (21:53)
[2018-04-13] MEDS: CLOTRIMAZOLE 1% CREAM 15 GM TP SCH (21:53)
[2018-04-14] MEDS: LEVALBUTEROL HCL NEB 1.25 MG/3 ML AMPUL NEB SCH ×6 (00:29→20:43)
[2018-04-14 04:27] LABS: HEMATOCRIT 30.5 % (36.0-47.0); HEMOGLOBIN 9.7 g/dL (12.0-15.5); MEAN CORPUSCULAR HGB CONC 31.8 g/dL (32.0-36.0); MEAN CORPUSCULAR VOLUME 88 fl (80-97); PLATELET COUNT 409 10^3/uL (150-450); RED BLOOD COUNT 3.47 10^6/uL (3.72-5.28); WHITE BLOOD COUNT 20.4 10^3/uL (4.0-10.5)
[2018-04-14 04:42] LABS: ABSOLUTE LYMPHOCYTES# (MANUAL) 2.4 10^3/uL (0.5-4.7); ABSOLUTE MONOCYTES # (MANUAL) 1.6 10^3/uL (0.1-1.4); ABSOLUTE NEUTROPHILS# (MANUAL) 16.3 10^3/uL (1.7-8.2); BAND NEUTROPHILS % (MANUAL) 6 % (3-5); BASOPHILS % (MANUAL) 0 % (0-2); EOSINOPHILS % (MANUAL) 0 % (0-6); LYMPHOCYTES % (MANUAL) 12 % (13-45); METAMYELOCYTES % (MANUAL) 1 % (0); MONOCYTES % (MANUAL) 8 % (3-13); SEGMENTED NEUTROPHILS % (MAN) 73 % (42-78); TOTAL CELLS COUNTED 100
[2018-04-14 04:43] LABS: ANISOCYTOSIS 2+; PLATELET COMMENT ADEQUATE; POLYCHROMASIA 1+; TOXIC GRANULATION 1+; TOXIC VACUOLATION PRESENT
[2018-04-14] MEDS: ROPINIROLE HCL 1 MG TABLET PO SCH ×3 (05:26→21:58)
[2018-04-14] MEDS: BUSPIRONE HCL 10 MG TABLET PO SCH ×3 (05:26→21:57)
[2018-04-14] MEDS: ALPRAZOLAM 0.5 MG TABLET PO PRN (05:26)
[2018-04-14] MEDS: MONTELUKAST SODIUM 10 MG TABLET PO SCH (10:06)
[2018-04-14] MEDS: CITALOPRAM HYDROBROMIDE 20 MG TABLET PO SCH (10:06)
[2018-04-14] MEDS: OXYCODONE-ACETAMINOPHEN 5-325 MG TABLET PO PRN ×2 (10:07→21:58)
[2018-04-14] MEDS: ACETAZOLAMIDE 250 MG TABLET PO SCH ×2 (10:07→21:58)
[2018-04-14] MEDS: OXYCODONE HCL IR 5 MG TABLET PO PRN ×2 (10:08→21:58)
[2018-04-14] MEDS: FIDAXOMICIN 200 MG TABLET PO SCH ×2 (10:09→18:41)
[2018-04-14] MEDS: CHOLESTYRAMINE/ASPARTAME 4 GM PACKET PO SCH (10:09)
[2018-04-14] MEDS: CLOTRIMAZOLE 1% CREAM 15 GM TP SCH ×2 (10:10→19:05)
[2018-04-14] MEDS: ENOXAPARIN SODIUM INJ 40 MG/0.4 ML DISP.SYRIN SUBCUT SCH (10:11)
[2018-04-14] MEDS: FLUTICASONE/UMECLIDIN/VILANTER 100-62.5-25 MCG/DOSE IH SCH (10:12)
--- NOTE | 2018-04-14 17:08 | PDOC PROGRESS REPORT ---
Subjective Progress Note for:: 04/14/18 Subjective:: No diarrhea, nausea or vomiting. No abdominal pain. No chest pain. Remain on supplemental oxygen via nasal cannula. No fever or chills. Reason For Visit: ACUTE HYPOXEMIC RESPIRATORY FAILURE, EXACERBATED Physical Exam Vital Signs: Temp Pulse Resp BP Pulse Ox 98.5 F 104 H 18 110/48 L 98 04/14/18 11:11 04/14/18 14:00 04/14/18 12:08 04/14/18 11:11 04/14/18 12:08 Intake & Output 04/13/18 04/14/18 04/15/18 06:59 06:59 06:59 Intake Total 473 674 237 Balance 473 674 237 Weight 45.5 kg 46.1 kg Physical Exam: General appearance: PRESENT: mild distress - with breathing. remain on supplemental oxygen via nasal cannula. Head exam: PRESENT: atraumatic, normocephalic Mouth exam: PRESENT: moist Respiratory exam: PRESENT: minimal rhonchi - expiratory phase. Cardiovascular exam: PRESENT: RRR, +S1, +S2. ABSENT: diastolic murmur, rubs, systolic murmur Vascular exam: ABSENT: pallor GI/Abdominal exam: PRESENT: normal bowel sounds, soft. ABSENT: distended, guarding, mass, organomegaly, rebound, tenderness Extremities exam: ABSENT: pedal edema Neurological exam: PRESENT: alert, awake, oriented to person, oriented to place, oriented to time, oriented to situation, CN II-XII grossly intact. ABSENT: motor sensory deficit Psychiatric exam: PRESENT: appropriate affect, normal mood. ABSENT: homicidal ideation, suicidal ideation Skin exam: PRESENT: dry, warm, scaly rash in mammary fold region bilaterally Results Laboratory Results: 04/14/18 04:00 04/12/18 04:21 04/14/18 04:00 WBC 20.4 H RBC 3.47 L Hgb 9.7 L Hct 30.5 L MCV 88 MCH 28.0 MCHC 31.8 L RDW 20.0 H Plt Count 409 Seg Neutrophils % Not Reportable Lymphocytes % Not Reportable Monocytes % Not Reportable Eosinophils % Not Reportable Basophils % Not Reportable Absolute Neutrophils Not Reportable Absolute Lymphocytes Not Reportable Absolute Monocytes Not Reportable Absolute Eosinophils Not Reportable Absolute Basophils Not Reportable 04/02/18 04/02/18 04/02/18 14:05 14:05 14:05 Creatine Kinase 32 CK-MB (CK-2) 0.82 Troponin I < 0.012 NT-Pro-B Natriuret Pep 2270 H 04/02/18 04/02/18 04/03/18 21:25 21:25 03:40 Creatine Kinase < 20 L < 20 L CK-MB (CK-2) 0.72 Troponin I < 0.012 NT-Pro-B Natriuret Pep 04/03/18 04/03/18 04/03/18 03:40 03:40 10:30 Creatine Kinase < 20 L CK-MB (CK-2) 0.86 Troponin I < 0.012 NT-Pro-B Natriuret Pep 2050 H 04/03/18 10:30 Creatine Kinase CK-MB (CK-2) 0.98 Troponin I < 0.012 NT-Pro-B Natriuret Pep Impressions: Chest X-Ray 04/02/18 14:03 IMPRESSION: Mild increased interstitial prominence, early interstitial edema versus atypical infectious process. No consolidation or pleural effusion. Assessment & Plan - Diagnosis (1) Decompensated COPD with exacerbation (chronic obstructive pulmonary disease) Is this a current diagnosis for this admission?: Yes (2) End stage chronic obstructive pulmonary disease Is this a current diagnosis for this admission?: Yes (3) HTN (hypertension) Qualifiers: Hypertension type: essential hypertension Qualified Code(s): I10 - Essential (primary) hypertension Is this a current diagnosis for this admission?: Yes (4) HLD (hyperlipidemia) Qualifiers: Hyperlipidemia type: pure hypercholesterolemia Qualified Code(s): E78.00 - Pure hypercholesterolemia, unspecified Is this a current diagnosis for this admission?: Yes (5) Dlqsl-Epmkifbgv-Ldajg syndrome Is this a current diagnosis for this admission?: Yes (6) Mixed anxiety and depressive disorder Is this a current diagnosis for this admission?: Yes (7) Protein-calorie undernutrition Qualifiers: Protein-calorie malnutrition severity: moderate Qualified Code(s): E44.0 - Moderate protein-calorie malnutrition Is this a current diagnosis for this admission?: Yes (8) Osteoarthritis Qualifiers: Osteoarthritis location: unspecified site Is this a current diagnosis for this admission?: Yes (9) Chronic pain syndrome Is this a current diagnosis for this admission?: Yes (10) C. difficile diarrhea Is this a current diagnosis for this admission?: Yes (11) Yeast dermatitis Is this a current diagnosis for this admission?: Yes (12) Yeast infection involving the vagina and surrounding area Is this a current diagnosis for this admission?: Yes - Time Time Spent with patient: 25-34 minutes Medications reviewed and adjusted accordingly: Yes Anticipated discharge: Home with Homehealth Within: Other - Inpatient Certification Based on my medical assessment, after consideration of the patient's comorbidities, presenting symptoms, or acuity I expect that the services needed warrant INPATIENT care.: Yes I certify that my determination is in accordance with my understanding of Medicare's requirements for reasonable and necessary INPATIENT services [42 CFR 412.3e].: Yes Medical Necessity: Significant Comorbidiites Make Outpatient Treatment Too Risky, Need Close Monitoring Due to Risk of Patient Decompensation, Need For Continuous Telemetry Monitoring, Risk of Complication if Not Cared For in Hospital, Risk of Diagnosis Which Will Require Inpatient Eval/Care/Monitoring Post Hospital Care: D/C Size Worker Documentation - Plan Summary Plan Summary: Patient will continue on Dificid therapy. Attempted to discharge home on oral Dificid but prescription coverage demanded $1000.00 copay for the medication. Patient insisted that she cannot afford the medicine. Continue all other current medication management.
[2018-04-14] MEDS: FLUCONAZOLE 100 MG TABLET PO SCH (18:40)
[2018-04-14] MEDS: ZOLPIDEM TARTRATE 5 MG TABLET PO PRN (21:58)
[2018-04-15] MEDS: LEVALBUTEROL HCL NEB 1.25 MG/3 ML AMPUL NEB SCH ×6 (00:49→19:58)
[2018-04-15] MEDS: ALPRAZOLAM 0.5 MG TABLET PO PRN ×2 (05:15→13:06)
[2018-04-15] MEDS: BUSPIRONE HCL 10 MG TABLET PO SCH ×3 (05:15→21:29)
[2018-04-15] MEDS: ROPINIROLE HCL 1 MG TABLET PO SCH ×3 (05:15→21:29)
[2018-04-15] MEDS: OXYCODONE-ACETAMINOPHEN 5-325 MG TABLET PO PRN ×2 (08:01→21:28)
[2018-04-15] MEDS: OXYCODONE HCL IR 5 MG TABLET PO PRN ×2 (08:04→21:29)
[2018-04-15] MEDS: CHOLESTYRAMINE/ASPARTAME 4 GM PACKET PO SCH (10:06)
[2018-04-15] MEDS: ENOXAPARIN SODIUM INJ 40 MG/0.4 ML DISP.SYRIN SUBCUT SCH (10:06)
[2018-04-15] MEDS: ACETAZOLAMIDE 250 MG TABLET PO SCH ×2 (10:06→21:29)
[2018-04-15] MEDS: FIDAXOMICIN 200 MG TABLET PO SCH ×2 (10:06→17:43)
[2018-04-15] MEDS: CITALOPRAM HYDROBROMIDE 20 MG TABLET PO SCH (10:06)
[2018-04-15] MEDS: MONTELUKAST SODIUM 10 MG TABLET PO SCH (10:06)
[2018-04-15] MEDS: FLUTICASONE/UMECLIDIN/VILANTER 100-62.5-25 MCG/DOSE IH SCH (10:07)
[2018-04-15] MEDS: CLOTRIMAZOLE 1% CREAM 15 GM TP SCH ×2 (10:09→17:37)
--- NOTE | 2018-04-15 17:37 | PDOC PROGRESS REPORT ---
Subjective Progress Note for:: 04/15/18 Subjective:: Patient is alert oriented she has no new complaints Reason For Visit: ACUTE HYPOXEMIC RESPIRATORY FAILURE, EXACERBATED Physical Exam Vital Signs: Temp Pulse Resp BP Pulse Ox 98.4 F 92 16 117/61 96 04/15/18 11:08 04/15/18 15:27 04/15/18 15:27 04/15/18 11:08 04/15/18 15:27 Intake & Output 04/14/18 04/15/18 04/16/18 06:59 06:59 07:59 Intake Total 674 474 355 Balance 674 474 355 Weight 46.1 kg 46.3 kg General appearance: PRESENT: no acute distress Eye exam: PRESENT: PERRLA Respiratory exam: PRESENT: clear to auscultation luci Cardiovascular exam: PRESENT: +S1, +S2 Results Laboratory Results: 04/14/18 04:00 04/12/18 04:21 04/02/18 04/02/18 04/02/18 14:05 14:05 14:05 Creatine Kinase 32 CK-MB (CK-2) 0.82 Troponin I < 0.012 NT-Pro-B Natriuret Pep 2270 H 04/02/18 04/02/18 04/03/18 21:25 21:25 03:40 Creatine Kinase < 20 L < 20 L CK-MB (CK-2) 0.72 Troponin I < 0.012 NT-Pro-B Natriuret Pep 04/03/18 04/03/18 04/03/18 03:40 03:40 10:30 Creatine Kinase < 20 L CK-MB (CK-2) 0.86 Troponin I < 0.012 NT-Pro-B Natriuret Pep 2050 H 04/03/18 10:30 Creatine Kinase CK-MB (CK-2) 0.98 Troponin I < 0.012 NT-Pro-B Natriuret Pep Impressions: Chest X-Ray 04/02/18 14:03 IMPRESSION: Mild increased interstitial prominence, early interstitial edema versus atypical infectious process. No consolidation or pleural effusion. Assessment & Plan - Diagnosis (1) C. difficile diarrhea Is this a current diagnosis for this admission?: Yes Plan: Continue treatment (2) Respiratory failure Qualifiers: Chronicity: chronic Respiratory failure complication: hypoxia Qualified Code(s): J96.11 - Chronic respiratory failure with hypoxia Is this a current diagnosis for this admission?: Yes
[2018-04-15] MEDS: FLUCONAZOLE 100 MG TABLET PO SCH (17:43)
[2018-04-15] MEDS: ZOLPIDEM TARTRATE 5 MG TABLET PO PRN (21:29)
[2018-04-16] MEDS: LEVALBUTEROL HCL NEB 1.25 MG/3 ML AMPUL NEB SCH ×6 (00:05→20:17)
[2018-04-16] MEDS: ROPINIROLE HCL 1 MG TABLET PO SCH ×3 (05:14→22:58)
[2018-04-16] MEDS: ALPRAZOLAM 0.5 MG TABLET PO PRN ×2 (05:14→23:14)
[2018-04-16] MEDS: BUSPIRONE HCL 10 MG TABLET PO SCH ×3 (05:15→22:58)
[2018-04-16] MEDS: FIDAXOMICIN 200 MG TABLET PO SCH ×2 (09:30→17:16)
[2018-04-16] MEDS: MONTELUKAST SODIUM 10 MG TABLET PO SCH (09:30)
[2018-04-16] MEDS: ACETAZOLAMIDE 250 MG TABLET PO SCH ×2 (09:31→22:58)
[2018-04-16] MEDS: CHOLESTYRAMINE/ASPARTAME 4 GM PACKET PO SCH (09:31)
[2018-04-16] MEDS: CITALOPRAM HYDROBROMIDE 20 MG TABLET PO SCH (09:31)
[2018-04-16] MEDS: FLUTICASONE/UMECLIDIN/VILANTER 100-62.5-25 MCG/DOSE IH SCH (09:31)
[2018-04-16] MEDS: CLOTRIMAZOLE 1% CREAM 15 GM TP SCH ×2 (09:31→17:16)
[2018-04-16] MEDS: ENOXAPARIN SODIUM INJ 40 MG/0.4 ML DISP.SYRIN SUBCUT SCH (09:31)
--- NOTE | 2018-04-16 12:29 | PDOC PROGRESS REPORT ---
Subjective Progress Note for:: 04/16/18 Subjective:: Patient is alert oriented she has no new complaints Reason For Visit: ACUTE HYPOXEMIC RESPIRATORY FAILURE, EXACERBATED Physical Exam Vital Signs: Temp Pulse Resp BP Pulse Ox 99.4 F 99 20 93/48 L 95 04/16/18 11:32 04/16/18 11:32 04/16/18 11:32 04/16/18 11:32 04/16/18 11:32 Intake & Output 04/15/18 04/16/18 04/17/18 05:59 06:59 06:59 Intake Total 237 Balance 237 Weight General appearance: PRESENT: no acute distress Eye exam: PRESENT: PERRLA Respiratory exam: PRESENT: clear to auscultation luci Cardiovascular exam: PRESENT: +S1, +S2 Results Laboratory Results: 04/14/18 04:00 04/12/18 04:21 04/02/18 04/02/18 04/02/18 14:05 14:05 14:05 Creatine Kinase 32 CK-MB (CK-2) 0.82 Troponin I < 0.012 NT-Pro-B Natriuret Pep 2270 H 04/02/18 04/02/18 04/03/18 21:25 21:25 03:40 Creatine Kinase < 20 L < 20 L CK-MB (CK-2) 0.72 Troponin I < 0.012 NT-Pro-B Natriuret Pep 04/03/18 04/03/18 04/03/18 03:40 03:40 10:30 Creatine Kinase < 20 L CK-MB (CK-2) 0.86 Troponin I < 0.012 NT-Pro-B Natriuret Pep 2050 H 04/03/18 10:30 Creatine Kinase CK-MB (CK-2) 0.98 Troponin I < 0.012 NT-Pro-B Natriuret Pep Impressions: Chest X-Ray 04/02/18 14:03 IMPRESSION: Mild increased interstitial prominence, early interstitial edema versus atypical infectious process. No consolidation or pleural effusion. Assessment & Plan - Diagnosis (1) C. difficile diarrhea Is this a current diagnosis for this admission?: Yes Plan: Continue treatment (2) Respiratory failure Qualifiers: Chronicity: chronic Respiratory failure complication: hypoxia Qualified Code(s): J96.11 - Chronic respiratory failure with hypoxia Is this a current diagnosis for this admission?: Yes
[2018-04-16] MEDS: FLUCONAZOLE 100 MG TABLET PO SCH (17:16)
[2018-04-16] MEDS: OXYCODONE-ACETAMINOPHEN 5-325 MG TABLET PO PRN (22:57)
[2018-04-16] MEDS: ZOLPIDEM TARTRATE 5 MG TABLET PO PRN (22:57)
[2018-04-17] MEDS: LEVALBUTEROL HCL NEB 1.25 MG/3 ML AMPUL NEB SCH ×7 (00:15→23:57)
[2018-04-17] MEDS: BUSPIRONE HCL 10 MG TABLET PO SCH ×3 (05:48→22:00)
[2018-04-17] MEDS: ROPINIROLE HCL 1 MG TABLET PO SCH ×3 (05:52→22:00)
[2018-04-17] MEDS: ALPRAZOLAM 0.5 MG TABLET PO PRN ×2 (07:37→22:00)
[2018-04-17] MEDS: OXYCODONE-ACETAMINOPHEN 5-325 MG TABLET PO PRN (07:37)
[2018-04-17 09:09] LABS: HEMATOCRIT 27.1 % (36.0-47.0); HEMOGLOBIN 8.7 g/dL (12.0-15.5); MEAN CORPUSCULAR HEMOGLOBIN 27.6 pg (27.0-33.4); MEAN CORPUSCULAR VOLUME 86 fl (80-97); PLATELET COUNT 523 10^3/uL (150-450); RED BLOOD COUNT 3.15 10^6/uL (3.72-5.28); RED CELL DISTRIBUTION WIDTH 19.7 % (11.5-14.0); WHITE BLOOD COUNT 14.4 10^3/uL (4.0-10.5)
[2018-04-17] MEDS: CITALOPRAM HYDROBROMIDE 20 MG TABLET PO SCH (09:27)
[2018-04-17] MEDS: MONTELUKAST SODIUM 10 MG TABLET PO SCH (09:27)
[2018-04-17] MEDS: FIDAXOMICIN 200 MG TABLET PO SCH ×2 (09:27→22:01)
[2018-04-17] MEDS: CHOLESTYRAMINE/ASPARTAME 4 GM PACKET PO SCH (09:27)
[2018-04-17] MEDS: FLUTICASONE/UMECLIDIN/VILANTER 100-62.5-25 MCG/DOSE IH SCH (09:27)
[2018-04-17] MEDS: ENOXAPARIN SODIUM INJ 40 MG/0.4 ML DISP.SYRIN SUBCUT SCH (09:27)
[2018-04-17] MEDS: ACETAZOLAMIDE 250 MG TABLET PO SCH ×2 (09:27→22:01)
[2018-04-17] MEDS: CLOTRIMAZOLE 1% CREAM 15 GM TP SCH ×2 (09:28→17:04)
[2018-04-17 09:33] LABS: ANION GAP 9 (5-19); BLOOD UREA NITROGEN 21 mg/dL (7-20); CALCIUM 8.9 mg/dL (8.4-10.2); CARBON DIOXIDE 24 mmol/L (22-30); CHLORIDE 96 mmol/L (98-107); GLUCOSE 142 mg/dL (75-110); POTASSIUM 4.6 mmol/L (3.6-5.0); SODIUM 129.4 mmol/L (137-145)
[2018-04-17 09:44] LABS: ABSOLUTE LYMPHOCYTES# (MANUAL) 1.4 10^3/uL (0.5-4.7); ABSOLUTE MONOCYTES # (MANUAL) 0.6 10^3/uL (0.1-1.4); ABSOLUTE NEUTROPHILS# (MANUAL) 11.8 10^3/uL (1.7-8.2); ANISOCYTOSIS 2+; BAND NEUTROPHILS % (MANUAL) 1 % (3-5); BASOPHILS % (MANUAL) 0 % (0-2); EOSINOPHILS % (MANUAL) 4 % (0-6); HYPOCHROMASIA 1+; LYMPHOCYTES % (MANUAL) 10 % (13-45); METAMYELOCYTES % (MANUAL) 2 % (0); MONOCYTES % (MANUAL) 4 % (3-13); PLATELET COMMENT INCREASED; SEGMENTED NEUTROPHILS % (MAN) 79 % (42-78); TOTAL CELLS COUNTED 100
[2018-04-17] MEDS: FLUCONAZOLE 100 MG TABLET PO SCH (17:04)
--- NOTE | 2018-04-17 18:07 | PDOC PROGRESS REPORT ---
Subjective Progress Note for:: 04/17/18 Subjective:: Patient reported improvement in her diarrhea and yeast rash beneath her breast tissue. No chest pain. She remain on supplemental oxygen via nasal cannula. Reason For Visit: ACUTE HYPOXEMIC RESPIRATORY FAILURE, EXACERBATED Physical Exam Vital Signs: Temp Pulse Resp BP Pulse Ox 98.0 F 98 16 95/51 L 100 04/17/18 14:49 04/17/18 16:29 04/17/18 16:29 04/17/18 14:49 04/17/18 16:29 Intake & Output 04/16/18 04/17/18 04/18/18 06:59 06:59 06:59 Intake Total 1766 425 Balance 1766 425 Weight 49.1 kg Physical Exam: General appearance: PRESENT: mild distress - with breathing. remain on supplemental oxygen via nasal cannula. Head exam: PRESENT: atraumatic, normocephalic Mouth exam: PRESENT: moist Respiratory exam: PRESENT: minimal rhonchi - expiratory phase. Cardiovascular exam: PRESENT: RRR, +S1, +S2. ABSENT: diastolic murmur, rubs, systolic murmur Vascular exam: ABSENT: pallor GI/Abdominal exam: PRESENT: normal bowel sounds, soft. ABSENT: distended, guarding, mass, organomegaly, rebound, tenderness Extremities exam: ABSENT: pedal edema Neurological exam: PRESENT: alert, awake, oriented to person, oriented to place, oriented to time, oriented to situation, CN II-XII grossly intact. ABSENT: motor sensory deficit Psychiatric exam: PRESENT: appropriate affect, normal mood. ABSENT: homicidal ideation, suicidal ideation Skin exam: PRESENT: dry, warm, improving scaly rash in mammary fold region bi laterally Results Laboratory Results: 04/17/18 08:45 04/17/18 08:45 04/17/18 04/17/18 08:45 08:45 WBC 14.4 H RBC 3.15 L Hgb 8.7 L Hct 27.1 L MCV 86 MCH 27.6 MCHC 32.0 RDW 19.7 H Plt Count 523 H Seg Neutrophils % Not Reportable Lymphocytes % Not Reportable Monocytes % Not Reportable Eosinophils % Not Reportable Basophils % Not Reportable Absolute Neutrophils Not Reportable Absolute Lymphocytes Not Reportable Absolute Monocytes Not Reportable Absolute Eosinophils Not Reportable Absolute Basophils Not Reportable Sodium 129.4 L Potassium 4.6 Chloride 96 L Carbon Dioxide 24 Anion Gap 9 BUN 21 H Creatinine 0.85 Est GFR ( Amer) > 60 Est GFR (Non-Af Amer) > 60 Glucose 142 H Calcium 8.9 04/02/18 04/02/18 04/02/18 14:05 14:05 14:05 Creatine Kinase 32 CK-MB (CK-2) 0.82 Troponin I < 0.012 NT-Pro-B Natriuret Pep 2270 H 04/02/18 04/02/18 04/03/18 21:25 21:25 03:40 Creatine Kinase < 20 L < 20 L CK-MB (CK-2) 0.72 Troponin I < 0.012 NT-Pro-B Natriuret Pep 04/03/18 04/03/18 04/03/18 03:40 03:40 10:30 Creatine Kinase < 20 L CK-MB (CK-2) 0.86 Troponin I < 0.012 NT-Pro-B Natriuret Pep 2050 H 04/03/18 10:30 Creatine Kinase CK-MB (CK-2) 0.98 Troponin I < 0.012 NT-Pro-B Natriuret Pep Impressions: Chest X-Ray 04/02/18 14:03 IMPRESSION: Mild increased interstitial prominence, early interstitial edema versus atypical infectious process. No consolidation or pleural effusion. Assessment & Plan - Diagnosis (1) Decompensated COPD with exacerbation (chronic obstructive pulmonary disease) Is this a current diagnosis for this admission?: Yes (2) End stage chronic obstructive pulmonary disease Is this a current diagnosis for this admission?: Yes (3) HTN (hypertension) Qualifiers: Hypertension type: essential hypertension Qualified Code(s): I10 - Essential (primary) hypertension Is this a current diagnosis for this admission?: Yes (4) HLD (hyperlipidemia) Qualifiers: Hyperlipidemia type: pure hypercholesterolemia Qualified Code(s): E78.00 - Pure hypercholesterolemia, unspecified Is this a current diagnosis for this admission?: Yes (5) Yyuos-Qvousrqpt-Izumb syndrome Is this a current diagnosis for this admission?: Yes (6) Mixed anxiety and depressive disorder Is this a current diagnosis for this admission?: Yes (7) Protein-calorie undernutrition Qualifiers: Protein-calorie malnutrition severity: moderate Qualified Code(s): E44.0 - Moderate protein-calorie malnutrition Is this a current diagnosis for this admission?: Yes (8) Osteoarthritis Qualifiers: Osteoarthritis location: unspecified site Is this a current diagnosis for this admission?: Yes (9) Chronic pain syndrome Is this a current diagnosis for this admission?: Yes (10) C. difficile diarrhea Is this a current diagnosis for this admission?: Yes (11) Yeast dermatitis Is this a current diagnosis for this admission?: Yes (12) Yeast infection involving the vagina and surrounding area Is this a current diagnosis for this admission?: Yes (13) Hyponatremia with normal extracellular fluid volume Is this a current diagnosis for this admission?: Yes Plan: Start on gentle IV hydration with normal saline infusion. (14) Anemia Qualifiers: Anemia type: unspecified type Qualified Code(s): D64.9 - Anemia, unspecified Is this a current diagnosis for this admission?: Yes Plan: Obtain anemia study with stool occult blood testing. Repeat CBC in AM. - Time Time Spent with patient: 25-34 minutes Medications reviewed and adjusted accordingly: Yes Anticipated discharge: Home with Homehealth Within: within 24 hours - Inpatient Certification Based on my medical assessment, after consideration of the patient's comorbidities, presenting symptoms, or acuity I expect that the services needed warrant INPATIENT care.: Yes I certify that my determination is in accordance with my understanding of Medicare's requirements for reasonable and necessary INPATIENT services [42 CFR 412.3e].: Yes Medical Necessity: Significant Comorbidiites Make Outpatient Treatment Too Risky, Need Close Monitoring Due to Risk of Patient Decompensation, Need For Continuous Telemetry Monitoring, Need for Nebulizer Therapy and Monitoring of Response, Risk of Complication if Not Cared For in Hospital, Risk of Diagnosis Which Will Require Inpatient Eval/Care/Monitoring Post Hospital Care: D/C Installation Drafter Documentation - Plan Summary Plan Summary: Start on IV normal saline at 75 ml/hour. Obtain anemia workup and stool occult blood testing. Continue all other current medication management.
[2018-04-17] MEDS: NORMAL SALINE 1000 ML 1,000 ML IV PRN (18:40)
[2018-04-17 18:41] LABS: ABSOLUTE RETICS # 0.071 10^6/uL (0.028-0.122); RETICULOCYTE COUNT (AUTO) 2.25 % (0.66-2.85)
[2018-04-17] MEDS ORDERED: OXYCODONE-ACETAMINOPHEN 5-325 MG TABLET PO PRN (18:55)
[2018-04-17 18:57] LABS: IRON(TIBC) 13.5 ug/dL (37-170)
[2018-04-17] MEDS: ZOLPIDEM TARTRATE 5 MG TABLET PO PRN (22:02)
[2018-04-17 22:42] LABS: FOLATE > 20.00 ng/mL (>2.76)
[2018-04-18] MEDS: LEVALBUTEROL HCL NEB 1.25 MG/3 ML AMPUL NEB SCH ×5 (04:28→20:34)
[2018-04-18 05:31] LABS: HEMOGLOBIN 8.1 g/dL (12.0-15.5); MEAN CORPUSCULAR HEMOGLOBIN 28.3 pg (27.0-33.4); MEAN CORPUSCULAR HGB CONC 32.5 g/dL (32.0-36.0); MEAN CORPUSCULAR VOLUME 87 fl (80-97); PLATELET COUNT 555 10^3/uL (150-450); RED BLOOD COUNT 2.88 10^6/uL (3.72-5.28); RED CELL DISTRIBUTION WIDTH 20.4 % (11.5-14.0); WHITE BLOOD COUNT 13.4 10^3/uL (4.0-10.5)
[2018-04-18 05:58] LABS: ANION GAP 5 (5-19); BLOOD UREA NITROGEN 21 mg/dL (7-20); CALCIUM 8.6 mg/dL (8.4-10.2); CARBON DIOXIDE 26 mmol/L (22-30); CHLORIDE 101 mmol/L (98-107); GLUCOSE 99 mg/dL (75-110); POTASSIUM 4.6 mmol/L (3.6-5.0); SODIUM 131.9 mmol/L (137-145)
[2018-04-18] MEDS: ROPINIROLE HCL 1 MG TABLET PO SCH ×3 (06:05→21:51)
[2018-04-18] MEDS: BUSPIRONE HCL 10 MG TABLET PO SCH ×3 (06:05→21:46)
[2018-04-18 07:11] LABS: ABSOLUTE LYMPHOCYTES# (MANUAL) 2.1 10^3/uL (0.5-4.7); ABSOLUTE MONOCYTES # (MANUAL) 1.5 10^3/uL (0.1-1.4); ABSOLUTE NEUTROPHILS# (MANUAL) 8.7 10^3/uL (1.7-8.2); BAND NEUTROPHILS % (MANUAL) 2 % (3-5); BASOPHILS % (MANUAL) 0 % (0-2); EOSINOPHILS % (MANUAL) 8 % (0-6); LYMPHOCYTES % (MANUAL) 16 % (13-45); METAMYELOCYTES % (MANUAL) 1 % (0); MONOCYTES % (MANUAL) 11 % (3-13); MYELOCYTES % (MANUAL) 2 % (0); SEGMENTED NEUTROPHILS % (MAN) 60 % (42-78); TOTAL CELLS COUNTED 100
[2018-04-18 07:12] LABS: PLATELET COMMENT INCREASED
[2018-04-18 07:17] LABS: HYPOCHROMASIA 2+; POLYCHROMASIA SLIGHT
[2018-04-18 07:18] LABS: ANISOCYTOSIS 2+; POIKILOCYTOSIS 1+
[2018-04-18] MEDS: NORMAL SALINE 1000 ML 1,000 ML IV PRN (09:50)
[2018-04-18] MEDS: CHOLESTYRAMINE/ASPARTAME 4 GM PACKET PO SCH (09:50)
[2018-04-18] MEDS: ACETAZOLAMIDE 250 MG TABLET PO SCH ×2 (09:50→21:46)
[2018-04-18] MEDS: FIDAXOMICIN 200 MG TABLET PO SCH ×2 (09:51→21:50)
[2018-04-18] MEDS: MONTELUKAST SODIUM 10 MG TABLET PO SCH (09:51)
[2018-04-18] MEDS: ENOXAPARIN SODIUM INJ 40 MG/0.4 ML DISP.SYRIN SUBCUT SCH (09:51)
[2018-04-18] MEDS: CITALOPRAM HYDROBROMIDE 20 MG TABLET PO SCH (09:51)
[2018-04-18] MEDS: FLUTICASONE/UMECLIDIN/VILANTER 100-62.5-25 MCG/DOSE IH SCH (09:52)
[2018-04-18] MEDS: CLOTRIMAZOLE 1% CREAM 15 GM TP SCH ×2 (09:53→18:13)
[2018-04-18] MEDS: ALPRAZOLAM 0.5 MG TABLET PO PRN ×2 (09:57→21:52)
[2018-04-18 14:18] LABS: ARTERIAL BLOOD BASE EXCESS -2.1 mmol/L; ARTERIAL BLOOD HCO3 24.8 mmol/L (20-24); ARTERIAL BLOOD O2 SATURATION 95.2 % (94-98); ARTERIAL BLOOD PCO2 53.3 mmHg (35-45); ARTERIAL BLOOD PH 7.29 (7.35-7.45); ARTERIAL BLOOD PO2 85.7 mmHg (80-100); ARTERIAL BLOOD TOTAL CO2 26.4 mmol/L (21-25)
[2018-04-18 14:25] LABS: ARTERIAL BLOOD FIO2 2L
--- NOTE | 2018-04-18 17:41 | PDOC PROGRESS REPORT ---
Subjective Progress Note for:: 04/18/18 Subjective:: Patient denied any diarrhea so far today. No nausea, vomiting or abdominal pain. No chest pain. She remain on supplemental oxygen via nasal cannula. Reason For Visit: ACUTE HYPOXEMIC RESPIRATORY FAILURE, EXACERBATED Physical Exam Vital Signs: Temp Pulse Resp BP Pulse Ox 98.4 F 99 16 96/46 L 100 04/18/18 14:49 04/18/18 16:58 04/18/18 16:58 04/18/18 14:49 04/18/18 16:58 Intake & Output 04/17/18 04/18/18 04/19/18 06:59 06:59 06:59 Intake Total 1766 1290 1575 Output Total 400 750 Balance 1766 890 825 Weight 49.1 kg 48.3 kg Physical Exam: General appearance: PRESENT: mild distress - with breathing. remain on supplemental oxygen via nasal cannula. Head exam: PRESENT: atraumatic, normocephalic Mouth exam: PRESENT: moist Respiratory exam: PRESENT: minimal rhonchi - expiratory phase. Cardiovascular exam: PRESENT: RRR, +S1, +S2. ABSENT: diastolic murmur, rubs, systolic murmur Vascular exam: ABSENT: pallor GI/Abdominal exam: PRESENT: normal bowel sounds, soft. ABSENT: distended, guarding, mass, organomegaly, rebound, tenderness Extremities exam: ABSENT: pedal edema Neurological exam: PRESENT: alert, awake, oriented to person, oriented to place, oriented to time, oriented to situation, CN II-XII grossly intact. ABSENT: motor sensory deficit Psychiatric exam: PRESENT: appropriate affect, normal mood. ABSENT: homicidal ideation, suicidal ideation Skin exam: PRESENT: dry, warm, improving scaly rash in mammary fold region bilaterally Results Laboratory Results: 04/18/18 05:11 04/18/18 05:11 04/17/18 04/17/18 04/18/18 18:20 18:20 05:11 WBC 13.4 H RBC 2.88 L Hgb 8.1 L Hct 25.0 L MCV 87 MCH 28.3 MCHC 32.5 RDW 20.4 H Plt Count 555 H Seg Neutrophils % Not Reportable Lymphocytes % Not Reportable Monocytes % Not Reportable Eosinophils % Not Reportable Basophils % Not Reportable Absolute Neutrophils Not Reportable Absolute Lymphocytes Not Reportable Absolute Monocytes Not Reportable Absolute Eosinophils Not Reportable Absolute Basophils Not Reportable Retic Count (auto) 2.25 Absolute Retic 0.071 Carbonic Acid HCO3/H2CO3 Ratio ABG pH ABG pCO2 ABG pO2 ABG HCO3 ABG O2 Saturation ABG Base Excess FiO2 Sodium Potassium Chloride Carbon Dioxide Anion Gap BUN Creatinine Est GFR ( Amer) Est GFR (Non-Af Amer) Glucose Calcium Iron 13.5 L TIBC 273 % Saturation 5 Ferritin 184.00 Vitamin B12 828.0 Folate > 20.00 04/18/18 04/18/18 05:11 13:55 WBC RBC Hgb Hct MCV MCH MCHC RDW Plt Count Seg Neutrophils % Lymphocytes % Monocytes % Eosinophils % Basophils % Absolute Neutrophils Absolute Lymphocytes Absolute Monocytes Absolute Eosinophils Absolute Basophils Retic Count (auto) Absolute Retic Carbonic Acid 1.60 H HCO3/H2CO3 Ratio 15:1 ABG pH 7.29 L ABG pCO2 53.3 H ABG pO2 85.7 ABG HCO3 24.8 H ABG O2 Saturation 95.2 ABG Base Excess -2.1 FiO2 2L Sodium 131.9 L Potassium 4.6 Chloride 101 Carbon Dioxide 26 Anion Gap 5 BUN 21 H Creatinine 0.88 Est GFR ( Amer) > 60 Est GFR (Non-Af Amer) > 60 Glucose 99 Calcium 8.6 Iron TIBC % Saturation Ferritin Vitamin B12 Folate 04/02/18 04/02/18 04/02/18 14:05 14:05 14:05 Creatine Kinase 32 CK-MB (CK-2) 0.82 Troponin I < 0.012 NT-Pro-B Natriuret Pep 2270 H 04/02/18 04/02/18 04/03/18 21:25 21:25 03:40 Creatine Kinase < 20 L < 20 L CK-MB (CK-2) 0.72 Troponin I < 0.012 NT-Pro-B Natriuret Pep 04/03/18 04/03/18 04/03/18 03:40 03:40 10:30 Creatine Kinase < 20 L CK-MB (CK-2) 0.86 Troponin I < 0.012 NT-Pro-B Natriuret Pep 2050 H 04/03/18 10:30 Creatine Kinase CK-MB (CK-2) 0.98 Troponin I < 0.012 NT-Pro-B Natriuret Pep Impressions: Chest X-Ray 04/02/18 14:03 IMPRESSION: Mild increased interstitial prominence, early interstitial edema versus atypical infectious process. No consolidation or pleural effusion. Assessment & Plan - Diagnosis (1) Decompensated COPD with exacerbation (chronic obstructive pulmonary disease) Is this a current diagnosis for this admission?: Yes (2) End stage chronic obstructive pulmonary disease Is this a current diagnosis for this admission?: Yes (3) HTN (hypertension) Qualifiers: Hypertension type: essential hypertension Qualified Code(s): I10 - Essential (primary) hypertension Is this a current diagnosis for this admission?: Yes (4) HLD (hyperlipidemia) Qualifiers: Hyperlipidemia type: pure hypercholesterolemia Qualified Code(s): E78.00 - Pure hypercholesterolemia, unspecified Is this a current diagnosis for this admission?: Yes (5) Oseli-Bbdvriuwx-Avkbs syndrome Is this a current diagnosis for this admission?: Yes (6) Mixed anxiety and depressive disorder Is this a current diagnosis for this admission?: Yes (7) Protein-calorie undernutrition Qualifiers: Protein-calorie malnutrition severity: moderate Qualified Code(s): E44.0 - Moderate protein-calorie malnutrition Is this a current diagnosis for this admission?: Yes (8) Osteoarthritis Qualifiers: Osteoarthritis location: unspecified site Is this a current diagnosis for this admission?: Yes (9) Chronic pain syndrome Is this a current diagnosis for this admission?: Yes (10) C. difficile diarrhea Is this a current diagnosis for this admission?: Yes (11) Yeast dermatitis Is this a current diagnosis for this admission?: Yes (12) Yeast infection involving the vagina and surrounding area Is this a current diagnosis for this admission?: Yes (13) Hyponatremia with normal extracellular fluid volume Is this a current diagnosis for this admission?: Yes (14) Anemia of chronic disease Is this a current diagnosis for this admission?: Yes Plan: I am concern about her recurrent admission due to chronic ill health. I will request repeat CBC in view of her borderline HCT to require blood transfusion. She iill continue on all other current medication management. - Time Time Spent with patient: 25-34 minutes Medications reviewed and adjusted accordingly: Yes Anticipated discharge: Home with Homehealth Within: within 24 hours - Inpatient Certification Based on my medical assessment, after consideration of the patient's comorbidities, presenting symptoms, or acuity I expect that the services needed warrant INPATIENT care.: Yes I certify that my determination is in accordance with my understanding of Medicare's requirements for reasonable and necessary INPATIENT services [42 CFR 412.3e].: Yes Medical Necessity: Significant Comorbidiites Make Outpatient Treatment Too Risky, Need Close Monitoring Due to Risk of Patient Decompensation, Need For IV Fluids, Need For Continuous Telemetry Monitoring, Need for Nebulizer Therapy and Monitoring of Response, Risk of Complication if Not Cared For in Hospital, Risk of Diagnosis Which Will Require Inpatient Eval/Care/Monitoring Post Hospital Care: D/C [employer] Documentation - Plan Summary Plan Summary: Continue current medication management. Follow up on CBC finding and possible PRBC transfusion. Patient is in agreement with concern about her anemia and discharge plan. Repeat BMP and CBC in am.
[2018-04-18] MEDS: FLUCONAZOLE 100 MG TABLET PO SCH (18:13)
[2018-04-18 18:46] LABS: HEMATOCRIT 24.7 % (36.0-47.0); MEAN CORPUSCULAR HEMOGLOBIN 28.4 pg (27.0-33.4); MEAN CORPUSCULAR HGB CONC 32.4 g/dL (32.0-36.0); MEAN CORPUSCULAR VOLUME 88 fl (80-97); PLATELET COUNT 539 10^3/uL (150-450); RED BLOOD COUNT 2.82 10^6/uL (3.72-5.28); WHITE BLOOD COUNT 10.9 10^3/uL (4.0-10.5)
[2018-04-18 19:06] LABS: ABSOLUTE LYMPHOCYTES# (MANUAL) 1.5 10^3/uL (0.5-4.7); ABSOLUTE MONOCYTES # (MANUAL) 1.3 10^3/uL (0.1-1.4); BAND NEUTROPHILS % (MANUAL) 3 % (3-5); BASOPHILS % (MANUAL) 0 % (0-2); EOSINOPHILS % (MANUAL) 10 % (0-6); LYMPHOCYTES % (MANUAL) 14 % (13-45); METAMYELOCYTES % (MANUAL) 1 % (0); MONOCYTES % (MANUAL) 12 % (3-13); SEGMENTED NEUTROPHILS % (MAN) 60 % (42-78); TOTAL CELLS COUNTED 100
[2018-04-18 19:09] LABS: ANISOCYTOSIS 2+; HYPOCHROMASIA SLIGHT; PLATELET COMMENT INCREASED; POIKILOCYTOSIS SLIGHT; TOXIC GRANULATION SLIGHT
[2018-04-18] MEDS: OXYCODONE HCL IR 5 MG TABLET PO PRN (21:51)
[2018-04-18] MEDS: ZOLPIDEM TARTRATE 5 MG TABLET PO PRN (21:52)
[2018-04-19] MEDS: LEVALBUTEROL HCL NEB 1.25 MG/3 ML AMPUL NEB SCH ×4 (00:02→11:47)
[2018-04-19] MEDS: ROPINIROLE HCL 1 MG TABLET PO SCH (06:24)
[2018-04-19] MEDS: OXYCODONE HCL IR 5 MG TABLET PO PRN (06:24)
[2018-04-19] MEDS: BUSPIRONE HCL 10 MG TABLET PO SCH (06:25)
[2018-04-19] MEDS: ALPRAZOLAM 0.5 MG TABLET PO PRN (06:25)
[2018-04-19 07:52] LABS: HEMATOCRIT 32.3 % (36.0-47.0); MEAN CORPUSCULAR HEMOGLOBIN 29.2 pg (27.0-33.4); MEAN CORPUSCULAR HGB CONC 33.2 g/dL (32.0-36.0); MEAN CORPUSCULAR VOLUME 88 fl (80-97); PLATELET COUNT 483 10^3/uL (150-450); RED BLOOD COUNT 3.68 10^6/uL (3.72-5.28); RED CELL DISTRIBUTION WIDTH 17.7 % (11.5-14.0); WHITE BLOOD COUNT 10.7 10^3/uL (4.0-10.5)
[2018-04-19 07:53] LABS: HEMOGLOBIN 10.7 g/dL (12.0-15.5)
[2018-04-19] MEDS: NORMAL SALINE 1000 ML 1,000 ML IV PRN (08:03)
[2018-04-19 08:18] LABS: ABSOLUTE LYMPHOCYTES# (MANUAL) 1.9 10^3/uL (0.5-4.7); ABSOLUTE MONOCYTES # (MANUAL) 0.7 10^3/uL (0.1-1.4); ABSOLUTE NEUTROPHILS# (MANUAL) 6.1 10^3/uL (1.7-8.2); BAND NEUTROPHILS % (MANUAL) 2 % (3-5); BASOPHILS % (MANUAL) 1 % (0-2); EOSINOPHILS % (MANUAL) 17 % (0-6); LYMPHOCYTES % (MANUAL) 18 % (13-45); METAMYELOCYTES % (MANUAL) 2 % (0); MONOCYTES % (MANUAL) 7 % (3-13); SEGMENTED NEUTROPHILS % (MAN) 53 % (42-78); TOTAL CELLS COUNTED 100
[2018-04-19 08:19] LABS: ANISOCYTOSIS 1+; OVALOCYTES 1+; PLATELET COMMENT INCREASED; POIKILOCYTOSIS 1+; POLYCHROMASIA SLIGHT; TEAR DROP CELLS SLIGHT
[2018-04-19 08:26] LABS: ANION GAP 7 (5-19); BLOOD UREA NITROGEN 16 mg/dL (7-20); CALCIUM 8.6 mg/dL (8.4-10.2); CARBON DIOXIDE 23 mmol/L (22-30); CHLORIDE 103 mmol/L (98-107); GLUCOSE 83 mg/dL (75-110); SODIUM 133.4 mmol/L (137-145)
--- NOTE | 2018-04-19 08:36 | PDOC DISCHARGE SUMMARY ---
General - Admit/Disc Date/PCP Admission Date/Primary Care Provider: 04/02/18 17:49 SARITA CASTILLO Discharge Date: 04/19/18 - Discharge Diagnosis (1) Decompensated COPD with exacerbation (chronic obstructive pulmonary disease) Is this a current diagnosis for this admission?: Yes (2) End stage chronic obstructive pulmonary disease Is this a current diagnosis for this admission?: Yes (3) HTN (hypertension) Is this a current diagnosis for this admission?: Yes (4) HLD (hyperlipidemia) Is this a current diagnosis for this admission?: Yes (5) Rrztg-Zowaumwac-Ndyda syndrome Is this a current diagnosis for this admission?: Yes (6) Mixed anxiety and depressive disorder Is this a current diagnosis for this admission?: Yes (7) Protein-calorie undernutrition Is this a current diagnosis for this admission?: Yes (8) Osteoarthritis Is this a current diagnosis for this admission?: Yes (9) Chronic pain syndrome Is this a current diagnosis for this admission?: Yes (10) C. difficile diarrhea Is this a current diagnosis for this admission?: Yes (11) Yeast dermatitis Is this a current diagnosis for this admission?: Yes (12) Yeast infection involving the vagina and surrounding area Is this a current diagnosis for this admission?: Yes (13) Hyponatremia with normal extracellular fluid volume Is this a current diagnosis for this admission?: Yes (14) Anemia of chronic disease Is this a current diagnosis for this admission?: Yes - Additional Information Resuscitation Status: Full Code Prescriptions: Alprazolam [Xanax 0.5 mg Tablet] 0.5 mg PO Q8HP PRN #60 tablet PRN Reason: Anxiety Clotrimazole [Antifungal Ringworm] 14.2 gm TP BID #1 cream..g. Home Medications: Acetazolamide [Diamox 250 mg Tab] 250 mg PO Q12 04/03/18 Buspirone HCl [Buspar 15 mg Tablet] 7.5 mg PO Q8 04/03/18 Citalopram Hydrobromide [Celexa 40 mg Tablet] 40 mg PO DAILY 04/03/18 Fluticasone/Umeclidin/Vilanter [Trelegy 100-62.5-25 Mcg Ellipta 14 Dose/Dpi] 1 each IH DAILY 04/03/18 Ipratropium/Albuterol Sulfate [Combivent Respimat 4 gm Mdi] 1 puff IH Q4HP PRN 04/03/18 Montelukast Sodium [Singulair 10 mg Tablet] 10 mg PO DAILY 04/03/18 Oxycodone HCl/Acetaminophen [Endocet 7.5-325 mg Tablet] 1 each PO Q8HP PRN 04/03/18 Ropinirole HCl [Requip] 1 mg PO TID 04/03/18 Zolpidem Tartrate [Ambien 5 mg Tablet] 5 mg PO HSP PRN 04/03/18 Alprazolam [Xanax 0.5 mg Tablet] 0.5 mg PO Q8HP PRN #60 tablet 04/19/18 Clotrimazole [Antifungal Ringworm] 14.2 gm TP BID #1 cream..g. 04/19/18 History of Present Illness Patient complains of: Difficulty with breathing History of Present Illness: SUSAN BINGHAM is a 77 year old female known to my practice who was discharged from this facility for exacerbated COPD and pneumonia. Patient was brought to the ED by EMS due to onset of exacerbated difficulty with breathing on the day of her presentation. She has baseline end stage COPD on BiPAP support at home. Patient reported compliance with her medication and supplemental oxygen usage at home. There was associated chest congestion, productive cough with brownish to yellow sputum production. She denied any definite fever but reported been cold all the time.Her initial evaluation in the ED was significant for increase work of breathing with resultant placement of BiPAP support. She was advised hospitalization for further evaluation and management. 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 Hospital Course Hospital Course: Patient was admitted for exacerbated COPD to [facility] with BiPAP support and IV Solu Medrol, bronchodilators and antibiotic therapy coverage for concern about recurrent lower lobe pneumonia. Due to associated diarrhea, her evaluation revealed possible antibiotic associated C. difficile colitis. She was subsequently started on oral Flagyl which was stepwise changed to oral Vancomycin and eventually Dificid due to lack of response with elevated leukocytosis. She was tapered off IV Solu Medrol coverage. She was treated for skin and vulvovaginal yeast infection. she was transfused two units of PRBC for worsening anemia. Her anemia workup suggested anemia of chronic disease. She will be discharged home today with follow up appointment as instructed upon discharge. Physical Exam Vital Signs: Temp Pulse Resp BP Pulse Ox 98.7 F 81 16 107/56 L 100 04/19/18 06:16 04/19/18 07:00 04/19/18 06:16 04/19/18 06:16 04/19/18 04:53 Intake & Output 04/18/18 04/19/18 04/20/18 06:59 06:59 06:59 Intake Total 1290 3425 Output Total 400 750 Balance 890 2675 Weight 48.3 kg 49.7 kg Physical Exam: General appearance: PRESENT: mild distress - with breathing. remain on supplemental oxygen via nasal cannula. Head exam: PRESENT: atraumatic, normocephalic Mouth exam: PRESENT: moist Respiratory exam: PRESENT: minimal rhonchi - expiratory phase. Cardiovascular exam: PRESENT: RRR, +S1, +S2. ABSENT: diastolic murmur, rubs, systolic murmur Vascular exam: ABSENT: pallor GI/Abdominal exam: PRESENT: normal bowel sounds, soft. ABSENT: distended, guarding, mass, organomegaly, rebound, tenderness Extremities exam: ABSENT: pedal edema Neurological exam: PRESENT: alert, awake, oriented to person, oriented to place, oriented to time, oriented to situation, CN II-XII grossly intact. ABSENT: motor sensory deficit Psychiatric exam: PRESENT: appropriate affect, normal mood. ABSENT: homicidal ideation, suicidal ideation Skin exam: PRESENT: dry, warm, improving scaly rash in mammary fold region bilat erally Results Laboratory Results: 04/19/18 06:25 04/18/18 04/18/18 04/18/18 13:55 18:30 20:46 WBC 10.9 H RBC 2.82 L Hgb 8.0 L Hct 24.7 L MCV 88 MCH 28.4 MCHC 32.4 RDW 20.0 H Plt Count 539 H Seg Neutrophils % Not Reportable Lymphocytes % Not Reportable Monocytes % Not Reportable Eosinophils % Not Reportable Basophils % Not Reportable Absolute Neutrophils Not Reportable Absolute Lymphocytes Not Reportable Absolute Monocytes Not Reportable Absolute Eosinophils Not Reportable Absolute Basophils Not Reportable Carbonic Acid 1.60 H HCO3/H2CO3 Ratio 15:1 ABG pH 7.29 L ABG pCO2 53.3 H ABG pO2 85.7 ABG HCO3 24.8 H ABG O2 Saturation 95.2 ABG Base Excess -2.1 FiO2 2L Blood Type O POSITIVE Antibody Screen NEGATIVE 04/19/18 06:25 WBC 10.7 H RBC 3.68 L Hgb 10.7 L D Hct 32.3 L MCV 88 MCH 29.2 MCHC 33.2 RDW 17.7 H Plt Count 483 H Seg Neutrophils % Not Reportable Lymphocytes % Not Reportable Monocytes % Not Reportable Eosinophils % Not Reportable Basophils % Not Reportable Absolute Neutrophils Not Reportable Absolute Lymphocytes Not Reportable Absolute Monocytes Not Reportable Absolute Eosinophils Not Reportable Absolute Basophils Not Reportable Carbonic Acid HCO3/H2CO3 Ratio ABG pH ABG pCO2 ABG pO2 ABG HCO3 ABG O2 Saturation ABG Base Excess FiO2 Blood Type Antibody Screen 04/02/18 04/02/18 04/02/18 14:05 14:05 14:05 Creatine Kinase 32 CK-MB (CK-2) 0.82 Troponin I < 0.012 NT-Pro-B Natriuret Pep 2270 H 04/02/18 04/02/18 04/03/18 21:25 21:25 03:40 Creatine Kinase < 20 L < 20 L CK-MB (CK-2) 0.72 Troponin I < 0.012 NT-Pro-B Natriuret Pep 04/03/18 04/03/18 04/03/18 03:40 03:40 10:30 Creatine Kinase < 20 L CK-MB (CK-2) 0.86 Troponin I < 0.012 NT-Pro-B Natriuret Pep 2050 H 04/03/18 10:30 Creatine Kinase CK-MB (CK-2) 0.98 Troponin I < 0.012 NT-Pro-B Natriuret Pep Impressions: Chest X-Ray 04/02/18 14:03 IMPRESSION: Mild increased interstitial prominence, early interstitial edema versus atypical infectious process. No consolidation or pleural effusion. Qualifiers - * PATIENT BEING DISCHARGED WITH ANY OF THE FOLLOWING DIAGNOSIS: No Plan Discharge Plan: D/C home today. Follow up in the office as instructed upon discharge. Time Spent: Greater than 30 Minutes - I had extensive discussion with patient recurrent compliance with medications, self care at home and use of respiratory support devices including Flutter and incentive spirometer. I will consider remote patient monitoring program to further decrease her readmission risk at her follow up appointment.
[2018-04-19 08:54] VITALS: BP 107/56
[2018-04-19] MEDS: ENOXAPARIN SODIUM INJ 40 MG/0.4 ML DISP.SYRIN SUBCUT SCH (09:19)
[2018-04-19] MEDS: CITALOPRAM HYDROBROMIDE 20 MG TABLET PO SCH (09:19)
[2018-04-19] MEDS: ACETAZOLAMIDE 250 MG TABLET PO SCH (09:20)
[2018-04-19] MEDS: MONTELUKAST SODIUM 10 MG TABLET PO SCH (09:20)
[2018-04-19] MEDS: CHOLESTYRAMINE/ASPARTAME 4 GM PACKET PO SCH (09:20)
[2018-04-19] MEDS: FIDAXOMICIN 200 MG TABLET PO SCH (09:20)
[2018-04-19] MEDS: CLOTRIMAZOLE 1% CREAM 15 GM TP SCH (09:21)
== END 2018-04-19 12:00 | disposition home health service (06) | DRG 189 ==
LOC: ER 13:56 → EH 17:49 → 3W 04-03 04:20
PROVIDERS: ADMIT Internal Medicine Geriatric Medicine; ATTEND Internal Medicine Geriatric Medicine
PROC: 5A09357 Assistance with Respiratory Ventilation, Less than 24 Consecutive Hours, Continuous Positive Airway Pressure (ICD-10-PCS; principal; 2018-04-02)
PROC: 3E0F73Z Introduction of Anti-inflammatory into Respiratory Tract, Via Natural or Artificial Opening (ICD-10-PCS; 2018-04-02)
PROC: 30233N1 Transfusion of Nonautologous Red Blood Cells into Peripheral Vein, Percutaneous Approach (ICD-10-PCS; 2018-04-18)
DX: J96.21 Acute and chronic respiratory failure with hypoxia (principal); J18.9 Pneumonia, unspecified organism; J44.1 Chronic obstructive pulmonary disease with (acute) exacerbation; A04.72 Enterocolitis due to Clostridium difficile, not specified as recurrent; E87.1 Hypo-osmolality and hyponatremia; J44.0 Chronic obstructive pulmonary disease with (acute) lower respiratory infection; E44.0 Moderate protein-calorie malnutrition; I45.6 Pre-excitation syndrome; F41.8 Other specified anxiety disorders; M19.90 Unspecified osteoarthritis, unspecified site; G89.4 Chronic pain syndrome; B37.2 Candidiasis of skin and nail; B37.3 Candidiasis of vulva and vagina; D63.8 Anemia in other chronic diseases classified elsewhere; F32.9 Major depressive disorder, single episode, unspecified; K21.9 Gastro-esophageal reflux disease without esophagitis; G47.30 Sleep apnea, unspecified; E78.00 Pure hypercholesterolemia, unspecified; D72.829 Elevated white blood cell count, unspecified; T38.0X5A Adverse effect of glucocorticoids and synthetic analogues, initial encounter; I10 Essential (primary) hypertension; Z79.899 Other long term (current) drug therapy; Z95.0 Presence of cardiac pacemaker; Z86.711 Personal history of pulmonary embolism; Z90.710 Acquired absence of both cervix and uterus; Z96.642 Presence of left artificial hip joint; Z87.891 Personal history of nicotine dependence; Z79.891 Long term (current) use of opiate analgesic; Z88.1 Allergy status to other antibiotic agents; Z99.81 Dependence on supplemental oxygen; Z82.49 Family history of ischemic heart disease and other diseases of the circulatory system; Z83.3 Family history of diabetes mellitus; Z86.14 Personal history of Methicillin resistant Staphylococcus aureus infection; Z90.49 Acquired absence of other specified parts of digestive tract
CPT/HCPCS: 36415; 36430; 36591; 36600; 71045; 80048; 80053; 80061; 80076; 80202; 80307; 81001; 82140; 82150; 82550; 82553; 82565; 82607; 82728; 82746; 82803; 83036; 83540; 83550; 83605; 83690; 83735; 83880; 84100; 84439; 84443; 84484; 85025; 85045; 85610; 85730; 86850; 86900; 86901; 86920; 87040; 87086; 87493; 93005; 93010; 94640; 94660; 94667; 96361; 96365; 96367; 96375; 99291; J1642; J1650; J2543; J2920; J2930; J3370; J3475; J3490; J7030; J7060; J7620; P9016

== ENCOUNTER 2018-05-01 16:47 | Inpatient (IN) | payer MEDICARE, OTHER ==
[2018-05-01] MEDS ORDERED: NORMAL SALINE 1000 ML 1,000 ML IV ONE (17:39)
--- NOTE | 2018-05-01 17:41 | ER Document Report ---
ED Medical Screen (RME) - General Chief Complaint: Shortness Of Breath Stated Complaint: SHORTNESS OF BREATH Primary Care Provider: SARITA CASTILLO MD [Primary Care Provider] - Follow up as needed Notes: Patient is a 77-year-old female that presents to the emergency department for chief complaint of palpitations and shortness of breath. Patient recently was in the hospital for pneumonia, and also has had C. difficile, she was recently o n Dificid according to the patient's family that is at bedside, she has been having diarrhea more recently as well. ROS: Other than noted above, the 12 point review of systems was reviewed with the p atient and were negative, all pertinent findings are included in the HPI. PHYSICAL EXAMINATION: Vital signs reviewed. GENERAL: Ill-appearing female, elderly, mild distress HEAD: Atraumatic, normocephalic. EYES: Pupils equal round extraocular movements intact, conjunctiva are normal. ENT: Nares patent NECK: Normal range of motion CV: Heart rate tachycardic, regular rhythm LUNGS: No respiratory distress, coarse lung sounds particularly on the right compared to the left. Musculoskeletal: Normal range of motion NEUROLOGICAL: Normal speech PSYCH: Normal mood, normal affect. MDM: Patient seen and examined for rapid initial assessment. Vital signs reviewed. A comprehensive ED assessment and evaluation of the patient, analysis of test results and completion of the medical decision making process will be conducted by additional ED providers. *Note is created using voice recognition software and may contain spelling, syntax or grammatical errors. TRAVEL OUTSIDE OF THE [place] IN LAST 30 DAYS: No - Related Data Allergies/Adverse Reactions: erythromycin base [Erythromycin Base] Allergy (Unknown, Verified 02/14/18 15:31) Past Medical History - Past Medical History Cardiac Medical History: Reports: Hx Hypercholesterolemia, Hx Hypertension, Hx Pulmonary Embolism Denies: Hx Coronary Artery Disease, Hx Heart Attack Pulmonary Medical History: Reports: Hx Asthma, Hx Bronchitis, Hx COPD, Hx Pneumonia, Hx Respiratory Failure, Hx Sleep Apnea Neurological Medical History: Denies: Hx Cerebrovascular Accident, Hx Seizures Endocrine Medical History: Denies: Hx Graves' Disease Renal/ Medical History: Reports: Hx Kidney Stones - 20 year ago. Denies: Hx Ovarian Cysts, Hx Peritoneal Dialysis, Hx Pelvic Inflammatory Disease Malignancy Medical History: GI Medical History: Reports: Hx Diverticulitis, Hx Gastroesophageal Reflux Disease, Hx Ulcer. Denies: Hx Irritable Bowel, Hx Liver Failure, Hx Pancreatitis Musculoskeltal Medical History: Denies Hx Arthritis, Denies Hx Multiple Sclerosis, Denies Hx Muscular Dystrophy Skin Medical History: Reports Hx MRSA Psychiatric Medical History: Reports: Hx Depression Denies: Hx Schizophrenia Traumatic Medical History: Denies: Hx Fractures, Hx Gunshot Wound Infectious Medical History: Denies: Hx HIV Past Surgical History: Reports: Hx Bowel Surgery - Old colostomy from a tear intestines resectioned, Hx Cardiac Surgery - pacemaker, Hx Colostomy - with reversal, 6 years ago, Hx Hysterectomy, Hx Orthopedic Surgery - left hip replacement 11/04/2014, Hx Pacemaker - Immunizations Immunizations up to date: Yes Hx Diphtheria, Pertussis, Tetanus Vaccination: No History of Influenza Vaccine for 11/2016 - 04/2017 Season: Unknown Physical Exam - Vital signs Vitals: Temp Pulse Resp BP Pulse Ox 97.9 F 130 H 39 H 114/67 92 05/01/18 17:00 05/01/18 17:00 05/01/18 17:00 05/01/18 17:00 05/01/18 17:00 Course - Vital Signs Vital signs: Temp Pulse Resp BP Pulse Ox 97.9 F 130 H 39 H 114/67 92 05/01/18 17:00 05/01/18 17:00 05/01/18 17:00 05/01/18 17:00 05/01/18 17:00 Doctor's Discharge - Discharge Referrals: SARITA CASTILLO MD [Primary Care Provider] - Follow up as needed
--- NOTE | 2018-05-01 18:08 | RADIOLOGY REPORT (SQ) ---
EXAM DESCRIPTION: CHEST SINGLE VIEW COMPLETED DATE/TIME: 05/01/2018 5:56 pm REASON FOR STUDY: shortness of breath COMPARISON: 04/02/2018 NUMBER OF VIEWS: One view. TECHNIQUE: Single frontal radiographic image of the chest acquired. LIMITATIONS: None. FINDINGS: LUNGS AND PLEURA: COPD. Scarring and bronchiectasis in both lungs which is stable. Airsp laisha opacity with ipsilateral volume loss left lower lobe. MEDIASTINUM AND HEART: Stable heart size and mediastinal structures. SUPPORT DEVICES: Appropriate location without change. BONY STRUCTURES: No acute findings. HARDWARE: Stable position of right-sided port and left pacemaker. OTHER: No other significant finding. IMPRESSION: COPD. Atelectasis or early pneumonia left lower lobe. Reading location - IP/workstation name: [email or web address]
[2018-05-01 18:14] LABS: HEMATOCRIT 41.2 % (36.0-47.0); HEMOGLOBIN 13.4 g/dL (12.0-15.5); MEAN CORPUSCULAR HEMOGLOBIN 28.5 pg (27.0-33.4); MEAN CORPUSCULAR HGB CONC 32.7 g/dL (32.0-36.0); MEAN CORPUSCULAR VOLUME 87 fl (80-97); PLATELET COUNT 537 10^3/uL (150-450); RED BLOOD COUNT 4.71 10^6/uL (3.72-5.28); RED CELL DISTRIBUTION WIDTH 17.5 % (11.5-14.0); WHITE BLOOD COUNT 16.1 10^3/uL (4.0-10.5)
[2018-05-01 18:20] LABS: INTERNATIONAL RATION (INR) 1.07; PROTHROMBIN TIME 14.4 SEC (11.4-15.4)
[2018-05-01 18:29] LABS: ALANINE AMINOTRANSFERASE 10 U/L (9-52); ALBUMIN 3.2 g/dL (3.5-5.0); ALKALINE PHOSPHATASE 94 U/L (38-126); ANION GAP 10 (5-19); ASPARTATE AMINO TRANSFERASE 15 U/L (14-36); BILIRUBIN,DIRECT 0.3 mg/dL (0.0-0.4); BILIRUBIN,TOTAL 0.3 mg/dL (0.2-1.3); BLOOD UREA NITROGEN 15 mg/dL (7-20); CALCIUM 9.4 mg/dL (8.4-10.2); CARBON DIOXIDE 22 mmol/L (22-30); CHLORIDE 102 mmol/L (98-107); GLUCOSE 117 mg/dL (75-110); POTASSIUM 4.5 mmol/L (3.6-5.0); TOTAL PROTEIN 7.4 g/dL (6.3-8.2)
[2018-05-01 18:49] LABS: ABSOLUTE LYMPHOCYTES# (MANUAL) 2.9 10^3/uL (0.5-4.7); ABSOLUTE MONOCYTES # (MANUAL) 2.4 10^3/uL (0.1-1.4); ABSOLUTE NEUTROPHILS# (MANUAL) 9.3 10^3/uL (1.7-8.2); BASOPHILS % (MANUAL) 0 % (0-2); EOSINOPHILS % (MANUAL) 2 % (0-6); LYMPHOCYTES % (MANUAL) 18 % (13-45); MONOCYTES % (MANUAL) 15 % (3-13); SEGMENTED NEUTROPHILS % (MAN) 58 % (42-78); TOTAL CELLS COUNTED 100
[2018-05-01 18:50] LABS: IMMATURE MONONUCLEAR% (MANUAL) 7 % (0); PLATELET COMMENT INCREASED; TOXIC GRANULATION 1+
[2018-05-01] MEDS ORDERED: CEFTRIAXONE INJ 1000 MG VIAL IV ONE (19:02)
[2018-05-01] MEDS ORDERED: AZITHROMYCIN 250 MG TABLET PO ONE (19:02)
--- NOTE | 2018-05-01 19:06 | ER Document Report ---
ED General - General Chief Complaint: Shortness Of Breath Stated Complaint: SHORTNESS OF BREATH Time Seen by Provider: 05/01/18 18:22 Primary Care Provider: SARITA CASTILLO MD [Primary Care Provider] - Follow up as needed Notes: Patient is a 77-year old female with a past medical history of advanced COPD with 3 L of oxygen dependency at baseline, history of Kvfix-Anelopzqt-Gckyf disease, recent hospitalization for C. difficile colitis and pneumonia in March 2018 who presents today complaining of palpitations, shortness of breath and tachycardia. The patient went to see Dr. 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 This is his first visit with this patient. In the office her heart rate was noted to be in the 130s-140s sinus tachycardia. She was also noted to be saturating 88% on her normal 3 L of oxygen. She was subsequently referred to the emergency department for evaluation. The patient and her daughter at the bedside reports that the patient has not felt well since being discharged in March. She states that it is difficult for her to exert herself even to get up from her bedroom to the bathroom without feeling extremely short of breath and feeling like her heart is racing. She also notes that she chronically has labored breathing. She has not followed up yet with her primary care doctor regarding these concerns. She has been using her home nebulizers with minimal to no significant improvement of her symptoms. Exertion does worsen her symptoms. She has kept a cough with sputum production since the initial hospitalization. She has not had fever. States that she chronically feels extremely tired. TRAVEL OUTSIDE OF THE [place] IN LAST 30 DAYS: No - Related Data Allergies/Adverse Reactions: erythromycin base [Erythromycin Base] Allergy (Unknown, Verified 05/01/18 18:06) Past Medical History - General Information source: Patient - Social History Smoking Status: Never Smoker Frequency of alcohol use: None Drug Abuse: None Lives with: Family Family History: CAD - This is in not immediate family members., DM, Hyperlipidemia, Hypertension Patient has suicidal ideation: No Patient has homicidal ideation: No - Past Medical History Cardiac Medical History: Reports: Hx Hypercholesterolemia, Hx Hypertension, Hx Pulmonary Embolism Denies: Hx Coronary Artery Disease, Hx Heart Attack Pulmonary Medical History: Reports: Hx Asthma, Hx Bronchitis, Hx COPD, Hx Pneumonia, Hx Respiratory Failure, Hx Sleep Apnea Neurological Medical History: Denies: Hx Cerebrovascular Accident, Hx Seizures Endocrine Medical History: Denies: Hx Graves' Disease Renal/ Medical History: Reports: Hx Kidney Stones - 20 year ago. Denies: Hx Ovarian Cysts, Hx Peritoneal Dialysis, Hx Pelvic Inflammatory Disease Malignancy Medical History: GI Medical History: Reports: Hx Diverticulitis, Hx Gastroesophageal Reflux Disease, Hx Ulcer. Denies: Hx Irritable Bowel, Hx Liver Failure, Hx Pancreatitis Musculoskeletal Medical History: Denies Hx Arthritis, Denies Hx Multiple Sclerosis, Denies Hx Muscular Dystrophy Skin Medical History: Reports Hx MRSA Psychiatric Medical History: Reports: Hx Depression Denies: Hx Schizophrenia Traumatic Medical History: Denies: Hx Fractures, Hx Gunshot Wound Infectious Medical History: Denies: Hx HIV Past Surgical History: Reports: Hx Bowel Surgery - Old colostomy from a tear intestines resectioned, Hx Cardiac Surgery - pacemaker, Hx Colostomy - with reversal, 6 years ago, Hx Hysterectomy, Hx Orthopedic Surgery - left hip replacement 11/04/2014, RIGHT KNEE CYST REMOVAL, Hx Pacemaker - Immunizations Immunizations up to date: Yes Hx Diphtheria, Pertussis, Tetanus Vaccination: No Hx Pneumococcal Vaccination: 06/04/11 Review of Systems - Review of Systems Notes: Constitutional: Negative for fever. HENT: Negative for sore throat. Eyes: Negative for visual changes. Cardiovascular: Positive for palpitations Respiratory: Positive for shortness of breath, cough Gastrointestinal: Negative for abdominal pain, positive for diarrhea Genitourinary: Negative for dysuria. Musculoskeletal: Negative for back pain. Skin: Negative for rash. Neurological: Negative for headaches, weakness or numbness. 10 point ROS negative except as marked above and in HPI. Physical Exam - Vital signs Vitals: Temp Pulse Resp BP Pulse Ox 97.9 F 130 H 39 H 114/67 92 05/01/18 17:00 05/01/18 17:00 05/01/18 17:00 05/01/18 17:00 05/01/18 17:00 Interpretation: Tachycardic, Tachypneic Notes: PHYSICAL EXAMINATION: GENERAL: Frail, elderly female in no acute distress HEAD: Atraumatic, normocephalic. EYES: Pupils equal round and reactive to light, extraocular movements intact, sclera anicteric, conjunctiva are normal. ENT: nares patent, oropharynx clear without exudates. Moderately dry mucous membranes. NECK: Normal range of motion, supple without lymphadenopathy LUNGS: Patient is labored in her breathing. Even sitting in the bed breathing approximately 27-30 times per minute. She intimately has a rattling cough. On lung examination she has faint expiratory wheezing in the bilateral upper lobes, diminished in the bilateral lobes more prominent on the left HEART: Regular rate and rhythm without murmurs ABDOMEN: Soft, nontender, normoactive bowel sounds. No guarding, no rebound. No masses appreciated. EXTREMITIES: Normal range of motion, no pitting or edema. No cyanosis. NEUROLOGICAL: No focal neurological deficits. Moves all extremities spontaneously and on command. PSYCH: Normal mood, normal affect. SKIN: Warm, Dry, normal turgor, no rashes or lesions noted. Course - Re-evaluation Re-evalutation: 05/01/18 19:10 Patient presents with tachycardia, hypoxemia both of which have resolved since the patient has been lying in the bed. It is however certainly concerning the patient became markedly tachycardic and hypoxic with minimal exertion going from a sitting to standing position to obtain her weight in clinic. Her chest x-ray appears to show developing left lower lobe pneumonia and her white count is elevated at 16.1. The remainder of her laboratories otherwise and excitable ranges. However given the patient's labored breathing, leukocytosis, rapidity with which she decompensates, I have discussed her with the primary care p helder Castillo. After review the details of the case Dr. Castillo and I have agreed that the patient requires hospitalization on BiPAP in the [facility]. Patient and family in agreement. - Vital Signs Vital signs: Temp Pulse Resp BP Pulse Ox 97.9 F 130 H 24 H 130/85 H 99 05/01/18 17:00 05/01/18 17:00 05/01/18 19:01 05/01/18 19:01 05/01/18 19:01 - Laboratory Result Diagrams: 05/01/18 17:46 05/01/18 17:46 Laboratory results interpreted by me: 05/01/18 05/01/18 17:46 17:46 WBC 16.1 H RDW 17.5 H Plt Count 537 H Monocytes % (Manual) 15 H Immature Leukocytes % 7 H Abs Neuts (Manual) 9.3 H Abs Monocytes (Manual) 2.4 H Sodium 134.0 L Est GFR (Non-Af Amer) 57 L Glucose 117 H Albumin 3.2 L - Diagnostic Test Radiology reviewed: Image reviewed, Reports reviewed Radiology results interpreted by me: 05/01/18 19:11 Chest x-ray: Left lower lobe infiltrate - EKG Interpretation by Me Additional EKG results interpreted by me: 05/01/18 19:12 Sinus tachycardia, rate 128. No ST elevations or depressions. QTC is 456. Discharge - Discharge Clinical Impression: Decompensated COPD with exacerbation (chronic obstructive pulmonary disease), Chronic respiratory failure with hypoxia and hypercapnia Protein-calorie undernutrition Qualifiers: Protein-calorie malnutrition severity: unspecified severity Qualified Code(s): E46 - Unspecified protein-calorie malnutrition Left lower lobe pneumonia Qualifiers: Pneumonia type: due to unspecified organism Qualified Code(s): J18.1 - Lobar pneumonia, unspecified organism Condition: Fair Disposition: ADMITTED INPATIENT Admitting Provider: Renetta Referrals: SARITA CASTILLO MD [Primary Care Provider] - Follow up as needed
[2018-05-01 20:29] LABS: APPEARANCE,URINE SLIGHTLY-CLOUDY; BILIRUBIN,URINE NEGATIVE (NEGATIVE); COLOR,URINE YELLOW; GLUCOSE, URINE NEGATIVE (NEGATIVE); KETONES,URINE NEGATIVE (NEGATIVE); LEUKOCYTE ESTERASE,URINE LARGE (NEGATIVE); NITRITE,URINE NEGATIVE (NEGATIVE); PROTEIN,URINE NEGATIVE (NEGATIVE); URINE SPECIFIC GRAVITY 1.008; UROBILINOGEN,URINE NEGATIVE mg/dL (<2.0)
--- NOTE | 2018-05-01 21:24 | EKG REPORT ---
SEVERITY:- ABNORMAL ECG - SINUS TACHYCARDIA PROBABLE LEFT ATRIAL ABNORMALITY LEFT AXIS DEVIATION LVH WITH SECONDARY REPOLARIZATION ABNORMALITY : Confirmed by: Kathleen Montero MD 01-May-2018 21:22:29
[2018-05-02] MEDS ORDERED: VANCOMYCIN HCL INJ 1000 MG VIAL IV PRN (00:33)
[2018-05-02] MEDS ORDERED: IPRATROPIUM/ALBUTEROL 120 PUFF/4 GM MDI IH PRN (00:37)
[2018-05-02] MEDS ORDERED: VANCOMYCIN HCL 1,000 MG in DEXTROSE 5%-WATER 250 ML IV ONE (00:59)
[2018-05-02] MEDS ORDERED: ROPINIROLE HCL 1 MG TABLET PO ONE (01:00)
[2018-05-02] MEDS ORDERED: METHYLPREDNISOLONE INJ 125 MG/2 ML SDV IV ONE ×2 (01:00→01:15)
[2018-05-02] MEDS ORDERED: MONTELUKAST SODIUM 10 MG TABLET PO ONE (01:00)
[2018-05-02] MEDS ORDERED: ACETAZOLAMIDE 250 MG TABLET PO ONE (01:00)
[2018-05-02] MEDS ORDERED: BUSPIRONE HCL 10 MG TABLET PO ONE (01:00)
[2018-05-02] MEDS: NORMAL SALINE 1000 ML 1,000 ML IV PRN ×2 (01:12→18:53)
[2018-05-02] MEDS ORDERED: VANCOMYCIN HCL INJ 1000 MG VIAL ONE (01:31)
[2018-05-02] MEDS ORDERED: METHYLPREDNISOLONE INJ 125 MG/2 ML SDV IV SCH ×2 (02:00→10:00)
[2018-05-02 02:04] LABS: VENOUS BLOOD BASE EXCESS -3.3 mmol/L; VENOUS BLOOD HCO3 22.4 mmol/L (20-32); VENOUS BLOOD PCO2 42.3 mmHg (35-63); VENOUS BLOOD PH 7.34 (7.30-7.42)
[2018-05-02] MEDS: BUSPIRONE HCL 10 MG TABLET PO SCH ×3 (05:17→21:48)
[2018-05-02 05:47] LABS: HEMATOCRIT 37.4 % (36.0-47.0); HEMOGLOBIN 12.2 g/dL (12.0-15.5); MEAN CORPUSCULAR HEMOGLOBIN 28.3 pg (27.0-33.4); MEAN CORPUSCULAR HGB CONC 32.6 g/dL (32.0-36.0); MEAN CORPUSCULAR VOLUME 87 fl (80-97); PLATELET COUNT 464 10^3/uL (150-450); RED BLOOD COUNT 4.29 10^6/uL (3.72-5.28); RED CELL DISTRIBUTION WIDTH 18.3 % (11.5-14.0)
[2018-05-02 06:26] LABS: ALANINE AMINOTRANSFERASE 15 U/L (9-52); ALBUMIN 2.8 g/dL (3.5-5.0); ALKALINE PHOSPHATASE 76 U/L (38-126); ANION GAP 11 (5-19); ASPARTATE AMINO TRANSFERASE 14 U/L (14-36); BILIRUBIN,DIRECT 0.2 mg/dL (0.0-0.4); BILIRUBIN,TOTAL 0.2 mg/dL (0.2-1.3); BLOOD UREA NITROGEN 13 mg/dL (7-20); CALCIUM 8.8 mg/dL (8.4-10.2); CARBON DIOXIDE 21 mmol/L (22-30); CHLORIDE 103 mmol/L (98-107); GLUCOSE 163 mg/dL (75-110); POTASSIUM 4.1 mmol/L (3.6-5.0); SODIUM 134.7 mmol/L (137-145); TOTAL PROTEIN 6.5 g/dL (6.3-8.2)
[2018-05-02 06:59] LABS: ABSOLUTE LYMPHOCYTES# (MANUAL) 4.1 10^3/uL (0.5-4.7); ABSOLUTE NEUTROPHILS# (MANUAL) 47.6 10^3/uL (1.7-8.2); BASOPHILS % (MANUAL) 0 % (0-2); EOSINOPHILS % (MANUAL) 0 % (0-6); LYMPHOCYTES % (MANUAL) 8 % (13-45); MONOCYTES % (MANUAL) 0 % (3-13); SEGMENTED NEUTROPHILS % (MAN) 92 % (42-78); TOTAL CELLS COUNTED 100
[2018-05-02 07:01] LABS: TOXIC GRANULATION 1+; TOXIC VACUOLATION PRESENT
[2018-05-02 07:02] LABS: ANISOCYTOSIS 2+; POIKILOCYTOSIS 2+
[2018-05-02 07:03] LABS: BURR CELLS 1+; OVALOCYTES 1+; PLATELET COMMENT ADEQUATE
[2018-05-02] MEDS: FIDAXOMICIN 200 MG TABLET PO SCH ×2 (09:36→21:48)
[2018-05-02] MEDS: CITALOPRAM HYDROBROMIDE 20 MG TABLET PO SCH (09:37)
[2018-05-02] MEDS: FLUTICASONE/UMECLIDIN/VILANTER 100-62.5-25 MCG/DOSE IH SCH (09:37)
[2018-05-02] MEDS: ROPINIROLE HCL 1 MG TABLET PO SCH ×3 (09:37→17:27)
[2018-05-02] MEDS: ACETAZOLAMIDE 250 MG TABLET PO SCH ×2 (09:37→21:48)
[2018-05-02] MEDS: OXYCODONE HCL IR 5 MG TABLET PO PRN ×2 (09:39→17:27)
[2018-05-02] MEDS: LEVALBUTEROL HCL NEB 1.25 MG/3 ML AMPUL NEB PRN ×2 (10:09→17:19)
[2018-05-02 11:01] LABS: HEMATOCRIT 37.6 % (36.0-47.0); HEMOGLOBIN 12.1 g/dL (12.0-15.5); MEAN CORPUSCULAR HEMOGLOBIN 28.2 pg (27.0-33.4); MEAN CORPUSCULAR HGB CONC 32.3 g/dL (32.0-36.0); MEAN CORPUSCULAR VOLUME 87 fl (80-97); PLATELET COUNT 436 10^3/uL (150-450)
[2018-05-02 11:26] LABS: ABSOLUTE LYMPHOCYTES# (MANUAL) 3.3 10^3/uL (0.5-4.7); ABSOLUTE MONOCYTES # (MANUAL) 0.9 10^3/uL (0.1-1.4); BASOPHILS % (MANUAL) 0 % (0-2); EOSINOPHILS % (MANUAL) 0 % (0-6); LYMPHOCYTES % (MANUAL) 7 % (13-45); MONOCYTES % (MANUAL) 2 % (3-13); SEGMENTED NEUTROPHILS % (MAN) 91 % (42-78); TOTAL CELLS COUNTED 100
[2018-05-02 11:28] LABS: ANISOCYTOSIS 1+; HYPOCHROMASIA SLIGHT; PLATELET COMMENT ADEQUATE; POLYCHROMASIA SLIGHT
[2018-05-02 11:34] LABS: WHITE BLOOD COUNT 47.2 10^3/uL (4.0-10.5)
[2018-05-02 12:09] LABS: PATH REVIEW PATHOLOGIST REVIEWED
[2018-05-02] MEDS: ALPRAZOLAM 0.5 MG TABLET PO PRN ×2 (14:46→23:13)
[2018-05-02] MEDS: OXYCODONE-ACETAMINOPHEN 5-325 MG TABLET PO PRN (17:27)
[2018-05-02] MEDS: MONTELUKAST SODIUM 10 MG TABLET PO SCH (17:34)
--- NOTE | 2018-05-02 19:55 | PDOC H&P ---
History of Present Illness Admission Date/PCP: 05/01/18 20:05 SARITA CHEMORoyce Patient complains of: Shortness of breath History of Present Illness: SUSAN BINGHAM is a 77 year old female patient known to my practice who was referred to the ED by Dr. 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 It reported that her heart rate was in the 130-140's w ith oxygen saturation at 88% while on 3L/min supplemental oxygen via nasal cannula. Patient and daughter reported persistent exertional dyspnea even on supplemental oxygen since her discharged home late last month following hospitalization for C. dificile colitis and exacerbated COPD. Patient claimed compliance with BiPAP usage at home while sleeping. she denied any fever but always felt cold. She reported associated palpitation, persistent productive coughing, use of her nebulizer machine and medication more than usual. There is persistent generalized weakness, fatigue, poor appetite and oral intake. Her Ed evaluation was significant for persistent hypoxemia, tachycardia, and leukocytosis with concern for possible pneumonia as per her chest X ray unofficial findings. She was advised hospitalization for further evaluation ad management. Her morbidities include C. difficile colitis, end stage COPD with hypoxemia and oxygen supplementation dependent, HTN, HLD, Pulmonary embolism, Diverticulitis, Gastroesophageal Reflux Disease, MRSA pneumonia, mixed anxiety wit [id number], osteoarthritis with chronic pain syndrome and chronic opioid dependency. Past Medical History Cardiac Medical History: Reports: Hyperlipidema, Hypertension, Pulmonary Embolism Denies: Coronary Artery Disease, Myocardial Infarction Pulmonary Medical History: Reports: Asthma, Bronchitis, Chronic Obstructive Pulmonary Disease (COPD), Pneumonia, Respiratory Failure, Sleep Apnea Neurological Medical History: Denies: Seizures Endocrine Medical History: Renal/ Medical History: Malignancy Medical History: GI Medical History: Reports: Diverticulitis, Gastroesophageal Reflux Disease Musculoskeltal Medical History: Denies: Arthritis Psychiatric Medical History: Reports: Depression Traumatic Medical History: Denies: Gunshot Wound Hematology: Denies: Anemia Infectious Medical History: Denies: HIV Past Surgical History Past Surgical History: Reports: Colostomy - with reversal, 6 years ago, Hy sterectomy, Orthopedic Surgery - left hip replacement 11/04/2014, RIGHT KNEE CYST REMOVAL, Pacemaker Social History Lives with: Family Smoking Status: Former Smoker Cigarettes Packs Per Day: 0.2 Number of Years Smokin Frequency of Alcohol Use: None Hx Recreational Drug Use: No Drugs: None Hx Prescription Drug Abuse: No - Advance Directive Resuscitation Status: Full Code Family History Family History: CAD - This is in not immediate family members., DM, Hyperlipidemia, Hypertension Parental Family History Reviewed: Yes Children Family History Reviewed: Yes Sibling(s) Family History Reviewed.: Yes Medication/Allergy Home Medications: Acetazolamide [Diamox 250 mg Tab] 250 mg PO Q12 05/01/18 Alprazolam [Xanax 0.5 mg Tablet] 0.5 mg PO Q8HP PRN 05/01/18 Buspirone HCl [Buspar 15 mg Tablet] 7.5 mg PO Q8 05/01/18 Citalopram Hydrobromide [Celexa 40 mg Tablet] 40 mg PO DAILY 05/01/18 Fluticasone/Umeclidin/Vilanter [Trelegy 100-62.5-25 Mcg Ellipta 14 Dose/Dpi] 1 puff IH DAILY 05/01/18 Ipratropium/Albuterol Sulfate [Combivent Respimat 4 gm Mdi] 1 puff IH Q4HP PRN 05/01/18 Montelukast Sodium [Singulair 10 mg Tablet] 10 mg PO QPM 05/01/18 Oxycodone HCl/Acetaminophen [Percocet 7.5-325 mg Tablet] 1 tab PO Q8HP PRN 05/01/18 Ropinirole HCl [Requip] 1 mg PO TID 05/01/18 Zolpidem Tartrate [Ambien 5 mg Tablet] 5 mg PO HSP PRN 05/01/18 Allergies/Adverse Reactions: erythromycin base [Erythromycin Base] Allergy (Unknown, Verified 05/01/18 18:06) Review of Systems Constitutional: PRESENT: anorexia, chills, fatigue, weakness Eyes: PRESENT: visual disturbances Ears: PRESENT: hearing changes Nose, Mouth, and Throat: ABSENT: as per HPI, headache(s), mouth pain, sore throat, vertigo, other Cardiovascular: PRESENT: dyspnea on exertion, palpitations. ABSENT: as per HPI, chest pain, edema, orthropnea, other Respiratory: PRESENT: cough, dyspnea, sputum. ABSENT: as per HPI, hemoptysis, other Gastrointestinal: PRESENT: diarrhea, nausea. ABSENT: as per HPI, abdominal pain, bloating, coffee ground emesis, constipation, dysphagia, heartburn, hematemesis, hematochezia, melena, vomiting, other Genitourinary: ABSENT: dysuria, hematuria Musculoskeletal: ABSENT: joint swelling Neurological: ABSENT: abnormal gait, abnormal speech, confusion, dizziness, focal weakness, syncope Psychiatric: PRESENT: anxiety, depression. ABSENT: homidical ideation, suicidal ideation Endocrine: ABSENT: cold intolerance, heat intolerance, polydipsia, polyuria Hematologic/Lymphatic: ABSENT: easy bleeding, easy bruising, lymphadenopathy Allergic/Immunologic: ABSENT: seasonal rhinorrhea Physical Exam Vital Signs: Temp Pulse Resp BP Pulse Ox 98.0 F 72 24 H 100/57 L 97 05/02/18 07:55 05/02/18 07:55 05/02/18 07:55 05/02/18 07:55 05/02/18 07:55 Intake & Output 05/01/18 05/02/18 05/03/18 06:59 06:59 06:59 Intake Total 1472 Output Total 150 Balance 1322 Weight 45.3 kg General appearance: PRESENT: mild distress, thin - on supplemental oxygen via nasal cannula at 3L/min Head exam: PRESENT: atraumatic, normocephalic Eye exam: PRESENT: conjunctiva pink, EOMI, PERRLA. ABSENT: scleral icterus Ear exam: PRESENT: normal external ear exam Mouth exam: PRESENT: moist Respiratory exam: PRESENT: crackles, decreased breath sounds, rhonchi Cardiovascular exam: PRESENT: RRR. ABSENT: diastolic murmur, rubs, systolic murmur Vascular exam: ABSENT: pallor GI/Abdominal exam: PRESENT: normal bowel sounds, soft. ABSENT: distended, guarding, mass, organolmegaly, rebound, tenderness Rectal exam: PRESENT: deferred Extremities exam: ABSENT: pedal edema Neurological exam: PRESENT: alert, awake, oriented to person, oriented to place, oriented to time, oriented to situation, CN II-XII grossly intact. ABSENT: motor sensory deficit Psychiatric exam: PRESENT: appropriate affect, normal mood. ABSENT: homicidal ideation, suicidal ideation Skin exam: PRESENT: dry, warm Results Laboratory Results: 05/02/18 05:15 05/02/18 05:15 05/01/18 05/01/18 05/01/18 17:46 17:46 17:46 WBC 16.1 H RBC 4.71 Hgb 13.4 Hct 41.2 MCV 87 MCH 28.5 MCHC 32.7 RDW 17.5 H Plt Count 537 H Seg Neutrophils % Not Reportable Lymphocytes % Not Reportable Monocytes % Not Reportable Eosinophils % Not Reportable Basophils % Not Reportable Absolute Neutrophils Not Reportable Absolute Lymphocytes Not Reportable Absolute Monocytes Not Reportable Absolute Eosinophils Not Reportable Absolute Basophils Not Reportable VBG pH VBG pCO2 VBG HCO3 VBG Base Excess Sodium 134.0 L Potassium 4.5 Chloride 102 Carbon Dioxide 22 Anion Gap 10 BUN 15 Creatinine 0.95 Est GFR ( Amer) > 60 Est GFR (Non-Af Amer) 57 L Glucose 117 H Lactic Acid 1.6 Calcium 9.4 Total Bilirubin 0.3 AST 15 ALT 10 Alkaline Phosphatase 94 Total Protein 7.4 Albumin 3.2 L Urine Color Urine Appearance Urine pH Ur Specific [place] Urine Protein Urine Glucose (UA) Urine Ketones Urine Blood Urine Nitrite Ur Leukocyte Esterase Urine WBC (Auto) Urine RBC (Auto) 05/01/18 05/02/18 05/02/18 19:34 01:35 05:15 WBC 51.7 H* D RBC 4.29 Hgb 12.2 Hct 37.4 MCV 87 MCH 28.3 MCHC 32.6 RDW 18.3 H Plt Count 464 H Seg Neutrophils % Not Reportable Lymphocytes % Not Reportable Monocytes % Not Reportable Eosinophils % Not Reportable Basophils % Not Reportable Absolute Neutrophils Not Reportable Absolute Lymphocytes Not Reportable Absolute Monocytes Not Reportable Absolute Eosinophils Not Reportable Absolute Basophils Not Reportable VBG pH 7.34 VBG pCO2 42.3 VBG HCO3 22.4 VBG Base Excess -3.3 Sodium Potassium Chloride Carbon Dioxide Anion Gap BUN Creatinine Est GFR ( Amer) Est GFR (Non-Af Amer) Glucose Lactic Acid Calcium Total Bilirubin AST ALT Alkaline Phosphatase Total Protein Albumin Urine Color YELLOW Urine Appearance SLIGHTLY-CLOUDY Urine pH 7.0 Ur Specific [place] 1.008 Urine Protein NEGATIVE Urine Glucose (UA) NEGATIVE Urine Ketones NEGATIVE Urine Blood NEGATIVE Urine Nitrite NEGATIVE Ur Leukocyte Esterase LARGE H Urine WBC (Auto) 8 Urine RBC (Auto) 1 05/02/18 05:15 WBC RBC Hgb Hct MCV MCH MCHC RDW Plt Count Seg Neutrophils % Lymphocytes % Monocytes % Eosinophils % Basophils % Absolute Neutrophils Absolute Lymphocytes Absolute Monocytes Absolute Eosinophils Absolute Basophils VBG pH VBG pCO2 VBG HCO3 VBG Base Excess Sodium 134.7 L Potassium 4.1 Chloride 103 Carbon Dioxide 21 L Anion Gap 11 BUN 13 Creatinine 1.03 Est GFR ( Amer) > 60 Est GFR (Non-Af Amer) 52 L Glucose 163 H Lactic Acid Calcium 8.8 Total Bilirubin 0.2 AST 14 ALT 15 Alkaline Phosphatase 76 Total Protein 6.5 Albumin 2.8 L Urine Color Urine Appearance Urine pH Ur Specific [place] Urine Protein Urine Glucose (UA) Urine Ketones Urine Blood Urine Nitrite Ur Leukocyte Esterase Urine WBC (Auto) Urine RBC (Auto) 05/01/18 17:46 Troponin I < 0.012 Impressions: Chest X-Ray 05/01/18 17:39 IMPRESSION: COPD. Atelectasis or early pneumonia left lower lobe. Assessment & Plan - Diagnosis (1) Chronic respiratory failure with hypoxia and hypercapnia Is this a current diagnosis for this admission?: Yes Plan: See admitting attending physician orders. (2) Cardiac dysrhythmia Qualifiers: Arrhythmia type: unspecified cardiac arrhythmia Qualified Code(s): I49.9 - Cardiac arrhythmia, unspecified Is this a current diagnosis for this admission?: Yes Plan: See admitting attending physician orders. (3) Recurrent colitis due to Clostridium difficile Is this a current diagnosis for this admission?: Yes Plan: See admitting attending physician orders. (4) HTN (hypertension) Qualifiers: Hypertension type: essential hypertension Qualified Code(s): I10 - Essential (primary) hypertension Is this a current diagnosis for this admission?: Yes Plan: See admitting attending physician orders. (5) HLD (hyperlipidemia) Qualifiers: Hyperlipidemia type: pure hypercholesterolemia Qualified Code(s): E78.00 - Pure hypercholesterolemia, unspecified Is this a current diagnosis for this admission?: Yes Plan: See admitting attending physician orders. (6) Long-term current use of opiate analgesic Is this a current diagnosis for this admission?: Yes Plan: See admitting attending physician orders. (7) Chronic pain syndrome Is this a current diagnosis for this admission?: Yes Plan: See admitting attending physician orders. (8) Mixed anxiety and depressive disorder Is this a current diagnosis for this admission?: Yes Plan: See admitting attending physician orders. - Time Time Spent: 50 to 70 Minutes Medications reviewed and adjusted accordingly: Yes Anticipated discharge: Home with Homehealth Within: Other - Inpatient Certification Based on my medical assessment, after consideration of the patient's comorbidities, presenting symptoms, or acuity I expect that the services needed warrant INPATIENT care.: Yes I certify that my determination is in accordance with my understanding of Medicare's requirements for reasonable and necessary INPATIENT services [42 CFR 412.3e].: Yes Medical Necessity: Significant Comorbidiites Make Outpatient Treatment Too Risky, Need Close Monitoring Due to Risk of Patient Decompensation, Need For IV Fluids, Need For Continuous Telemetry Monitoring, Need for Nebulizer Therapy and Monitoring of Response, Need for IV Antibiotics, Risk of Complication if Not Cared For in Hospital, Risk of Diagnosis Which Will Require Inpatient Eval/Care/Monitoring Post Hospital Care: 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
[2018-05-02] MEDS: ZOLPIDEM TARTRATE 5 MG TABLET PO PRN (21:48)
[2018-05-03] MEDS ORDERED: METHYLPREDNISOLONE INJ 40 MG/1 ML SDV IV ONE (00:30)
[2018-05-03] MEDS: BUSPIRONE HCL 10 MG TABLET PO SCH ×3 (05:07→22:20)
[2018-05-03 06:19] LABS: HEMATOCRIT 34.8 % (36.0-47.0); HEMOGLOBIN 11.1 g/dL (12.0-15.5); MEAN CORPUSCULAR HEMOGLOBIN 27.9 pg (27.0-33.4); MEAN CORPUSCULAR HGB CONC 31.8 g/dL (32.0-36.0); MEAN CORPUSCULAR VOLUME 88 fl (80-97); PLATELET COUNT 421 10^3/uL (150-450); RED BLOOD COUNT 3.97 10^6/uL (3.72-5.28); RED CELL DISTRIBUTION WIDTH 17.8 % (11.5-14.0); WHITE BLOOD COUNT 24.6 10^3/uL (4.0-10.5)
[2018-05-03 06:20] LABS: ALANINE AMINOTRANSFERASE 16 U/L (9-52); ALBUMIN 2.6 g/dL (3.5-5.0); ALKALINE PHOSPHATASE 88 U/L (38-126); ANION GAP 8 (5-19); ASPARTATE AMINO TRANSFERASE 11 U/L (14-36); BLOOD UREA NITROGEN 13 mg/dL (7-20); CALCIUM 8.5 mg/dL (8.4-10.2); CARBON DIOXIDE 21 mmol/L (22-30); CHLORIDE 108 mmol/L (98-107); GLUCOSE 144 mg/dL (75-110); POTASSIUM 4.3 mmol/L (3.6-5.0); SODIUM 137.2 mmol/L (137-145); TOTAL PROTEIN 6.2 g/dL (6.3-8.2)
[2018-05-03 06:29] LABS: ABSOLUTE LYMPHOCYTES# (MANUAL) 0.7 10^3/uL (0.5-4.7); ABSOLUTE MONOCYTES # (MANUAL) 1.5 10^3/uL (0.1-1.4); ABSOLUTE NEUTROPHILS# (MANUAL) 22.4 10^3/uL (1.7-8.2); BASOPHILS % (MANUAL) 0 % (0-2); EOSINOPHILS % (MANUAL) 0 % (0-6); LYMPHOCYTES % (MANUAL) 3 % (13-45); MONOCYTES % (MANUAL) 6 % (3-13); SEGMENTED NEUTROPHILS % (MAN) 91 % (42-78); TOTAL CELLS COUNTED 100
[2018-05-03 06:30] LABS: ANISOCYTOSIS 1+; BURR CELLS SLIGHT; HYPOCHROMASIA 1+; PLATELET COMMENT ADEQUATE; POIKILOCYTOSIS 1+
[2018-05-03 06:32] LABS: BILIRUBIN,TOTAL < 0.1 mg/dL (0.2-1.3)
[2018-05-03] MEDS: OXYCODONE HCL IR 5 MG TABLET PO PRN ×2 (06:53→15:17)
[2018-05-03] MEDS: OXYCODONE-ACETAMINOPHEN 5-325 MG TABLET PO PRN ×2 (06:53→15:18)
[2018-05-03] MEDS: ALPRAZOLAM 0.5 MG TABLET PO PRN ×2 (08:20→22:22)
[2018-05-03 08:50] LABS: WHITE BLOOD COUNT 51.7 10^3/uL (4.0-10.5)
[2018-05-03] MEDS ORDERED: METHYLPREDNISOLONE INJ 40 MG/1 ML SDV IV SCH (10:00)
[2018-05-03] MEDS: FIDAXOMICIN 200 MG TABLET PO SCH ×2 (10:09→22:19)
[2018-05-03] MEDS: CITALOPRAM HYDROBROMIDE 20 MG TABLET PO SCH (10:09)
[2018-05-03] MEDS: ACETAZOLAMIDE 250 MG TABLET PO SCH ×2 (10:09→22:19)
[2018-05-03] MEDS: ROPINIROLE HCL 1 MG TABLET PO SCH ×3 (10:09→17:45)
[2018-05-03] MEDS: FLUTICASONE/UMECLIDIN/VILANTER 100-62.5-25 MCG/DOSE IH SCH (10:10)
[2018-05-03] MEDS: METHYLPREDNISOLONE INJ 125 MG/2 ML SDV IV SCH ×2 (10:13→17:45)
[2018-05-03] MEDS: NORMAL SALINE 1000 ML 1,000 ML IV PRN (10:17)
[2018-05-03] MEDS: MONTELUKAST SODIUM 10 MG TABLET PO SCH (17:45)
--- NOTE | 2018-05-03 18:41 | PDOC PROGRESS REPORT ---
Subjective Progress Note for:: 05/03/18 Subjective:: Patient reported improvement with her diarrhea. No abdominal pain, fever or chills. No chest pain. remain on supplemental oxygen via nasal cannula and BiPAP support while sleeping. Reason For Visit: DECOMPENSATED CHF WITH EXACERBATION,ACUTE ON Physical Exam Vital Signs: Temp Pulse Resp BP Pulse Ox 97.5 F 112 H 25 H 127/58 H 91 L 05/03/18 07:31 05/03/18 07:31 05/03/18 07:31 05/03/18 07:31 05/03/18 07:31 Intake & Output 05/02/18 05/03/18 05/04/18 06:59 06:59 06:59 Intake Total 1472 2410 Output Total 150 Balance 1322 2410 Weight 45.3 kg 45.5 kg General appearance: PRESENT: no acute distress, well-developed, well-nourished Head exam: PRESENT: atraumatic, normocephalic Eye exam: PRESENT: conjunctiva pink, EOMI, PERRLA. ABSENT: scleral icterus Ear exam: PRESENT: normal external ear exam Mouth exam: PRESENT: moist Respiratory exam: PRESENT: decreased breath sounds - at lung bases, rhonchi - minimal Cardiovascular exam: PRESENT: RRR, +S1, +S2, tachycardia. ABSENT: diastolic murmur, rubs, systolic murmur Vascular exam: ABSENT: pallor GI/Abdominal exam: PRESENT: normal bowel sounds, soft. ABSENT: distended, guarding, mass, organolmegaly, rebound, tenderness Extremities exam: ABSENT: pedal edema Neurological exam: PRESENT: alert, awake, oriented to person, oriented to place, oriented to time, oriented to situation, CN II-XII grossly intact. ABSENT: motor sensory deficit Psychiatric exam: PRESENT: appropriate affect, normal mood. ABSENT: homicidal ideation, suicidal ideation Skin exam: PRESENT: dry, warm Results Laboratory Results: 05/03/18 05:15 05/03/18 05:15 05/02/18 05/03/18 05/03/18 10:10 05:15 05:15 WBC 47.2 H* 24.6 H RBC 4.30 3.97 Hgb 12.1 11.1 L Hct 37.6 34.8 L MCV 87 88 MCH 28.2 27.9 MCHC 32.3 31.8 L RDW 18.0 H 17.8 H Plt Count 436 421 Seg Neutrophils % Not Reportable Not Reportable Lymphocytes % Not Reportable Not Reportable Monocytes % Not Reportable Not Reportable Eosinophils % Not Reportable Not Reportable Basophils % Not Reportable Not Reportable Absolute Neutrophils Not Reportable Not Reportable Absolute Lymphocytes Not Reportable Not Reportable Absolute Monocytes Not Reportable Not Reportable Absolute Eosinophils Not Reportable Not Reportable Absolute Basophils Not Reportable Not Reportable Sodium 137.2 Potassium 4.3 Chloride 108 H Carbon Dioxide 21 L Anion Gap 8 BUN 13 Creatinine 0.84 Est GFR ( Amer) > 60 Est GFR (Non-Af Amer) > 60 Glucose 144 H Calcium 8.5 Total Bilirubin < 0.1 L AST 11 L ALT 16 Alkaline Phosphatase 88 Total Protein 6.2 L Albumin 2.6 L 05/01/18 17:46 Troponin I < 0.012 Impressions: Chest X-Ray 05/01/18 17:39 IMPRESSION: COPD. Atelectasis or early pneumonia left lower lobe. Assessment & Plan - Diagnosis (1) Chronic respiratory failure with hypoxia and hypercapnia Is this a current diagnosis for this admission?: Yes (2) Cardiac dysrhythmia Qualifiers: Arrhythmia type: unspecified cardiac arrhythmia Qualified Code(s): I49.9 - Cardiac arrhythmia, unspecified Is this a current diagnosis for this admission?: Yes (3) Recurrent colitis due to Clostridium difficile Is this a current diagnosis for this admission?: Yes (4) HTN (hypertension) Qualifiers: Hypertension type: essential hypertension Qualified Code(s): I10 - Essent ial (primary) hypertension Is this a current diagnosis for this admission?: Yes (5) HLD (hyperlipidemia) Qualifiers: Hyperlipidemia type: pure hypercholesterolemia Qualified Code(s): E78.00 - Pure hypercholesterolemia, unspecified Is this a current diagnosis for this admission?: Yes (6) Long-term current use of opiate analgesic Is this a current diagnosis for this admission?: Yes (7) Chronic pain syndrome Is this a current diagnosis for this admission?: Yes (8) Mixed anxiety and depressive disorder Is this a current diagnosis for this admission?: Yes (9) E. coli UTI (urinary tract infection) Is this a current diagnosis for this admission?: Yes Plan: Start on Invanz coverage based on culture and sensitivity report. - Time Time Spent with patient: 25-34 minutes Medications reviewed and adjusted accordingly: Yes Anticipated discharge: Home with Homehealth Within: Other - Inpatient Certification Based on my medical assessment, after consideration of the patient's comorbidities, presenting symptoms, or acuity I expect that the services needed warrant INPATIENT care.: Yes I certify that my determination is in accordance with my understanding of Medicare's requirements for reasonable and necessary INPATIENT services [42 CFR 412.3e].: Yes Medical Necessity: Significant Comorbidiites Make Outpatient Treatment Too Risky, Need Close Monitoring Due to Risk of Patient Decompensation, Need For IV Fluids, Need For Continuous Telemetry Monitoring, Need for Nebulizer Therapy and Monitoring of Response, Need for IV Antibiotics, Risk of Complication if Not Cared For in Hospital, Risk of Diagnosis Which Will Require Inpatient Eval/Care/Monitoring Post Hospital Care: D/C Mason Liner Documentation - Plan Summary Plan Summary: Maintain on oral Dificid and IV Invanz therapy. Continue all other current medication management.
[2018-05-03] MEDS ORDERED: ERTAPENEM SODIUM 1 GM in NORMAL SALINE 50 ML IV SCH (20:00)
[2018-05-03] MEDS: ZOLPIDEM TARTRATE 5 MG TABLET PO PRN (22:19)
[2018-05-04] MEDS: OXYCODONE-ACETAMINOPHEN 5-325 MG TABLET PO PRN ×3 (00:11→22:17)
[2018-05-04] MEDS: OXYCODONE HCL IR 5 MG TABLET PO PRN ×3 (00:12→22:18)
[2018-05-04] MEDS: NORMAL SALINE 1000 ML 1,000 ML IV PRN ×2 (00:13→14:58)
[2018-05-04] MEDS: METHYLPREDNISOLONE INJ 125 MG/2 ML SDV IV SCH ×3 (02:36→18:37)
[2018-05-04] MEDS: BUSPIRONE HCL 10 MG TABLET PO SCH ×3 (05:14→22:14)
[2018-05-04 05:30] LABS: HEMATOCRIT 36.3 % (36.0-47.0); HEMOGLOBIN 11.7 g/dL (12.0-15.5); MEAN CORPUSCULAR HEMOGLOBIN 28.4 pg (27.0-33.4); MEAN CORPUSCULAR HGB CONC 32.3 g/dL (32.0-36.0); MEAN CORPUSCULAR VOLUME 88 fl (80-97); PLATELET COUNT 424 10^3/uL (150-450); RED BLOOD COUNT 4.13 10^6/uL (3.72-5.28); RED CELL DISTRIBUTION WIDTH 17.5 % (11.5-14.0); WHITE BLOOD COUNT 24.4 10^3/uL (4.0-10.5)
[2018-05-04 05:55] LABS: ANION GAP 9 (5-19); BLOOD UREA NITROGEN 14 mg/dL (7-20); CALCIUM 9.2 mg/dL (8.4-10.2); CARBON DIOXIDE 21 mmol/L (22-30); CHLORIDE 106 mmol/L (98-107); GLUCOSE 125 mg/dL (75-110); POTASSIUM 3.9 mmol/L (3.6-5.0); SODIUM 136.1 mmol/L (137-145)
[2018-05-04 06:02] LABS: ABSOLUTE LYMPHOCYTES# (MANUAL) 0.7 10^3/uL (0.5-4.7); ABSOLUTE NEUTROPHILS# (MANUAL) 22.7 10^3/uL (1.7-8.2); BAND NEUTROPHILS % (MANUAL) 6 % (3-5); BASOPHILS % (MANUAL) 0 % (0-2); EOSINOPHILS % (MANUAL) 0 % (0-6); LYMPHOCYTES % (MANUAL) 3 % (13-45); MONOCYTES % (MANUAL) 4 % (3-13); NUCLEATED RED BLOOD CELLS 1 /100 WBC (0); SEGMENTED NEUTROPHILS % (MAN) 87 % (42-78); TOTAL CELLS COUNTED 100
[2018-05-04 06:03] LABS: ANISOCYTOSIS 2+; PLATELET COMMENT ADEQUATE
[2018-05-04] MEDS: ALPRAZOLAM 0.5 MG TABLET PO PRN ×2 (08:20→22:23)
[2018-05-04] MEDS: CITALOPRAM HYDROBROMIDE 20 MG TABLET PO SCH (10:02)
[2018-05-04] MEDS: ROPINIROLE HCL 1 MG TABLET PO SCH ×3 (10:03→18:37)
[2018-05-04] MEDS: FIDAXOMICIN 200 MG TABLET PO SCH ×2 (10:03→22:15)
[2018-05-04] MEDS: ACETAZOLAMIDE 250 MG TABLET PO SCH ×2 (10:03→22:18)
[2018-05-04] MEDS: FLUTICASONE/UMECLIDIN/VILANTER 100-62.5-25 MCG/DOSE IH SCH (10:04)
[2018-05-04 12:49] LABS: PATH REVIEW PATHOLOGIST REVIEWED
[2018-05-04] MEDS: MONTELUKAST SODIUM 10 MG TABLET PO SCH (18:37)
--- NOTE | 2018-05-04 19:06 | PDOC PROGRESS REPORT ---
Subjective Progress Note for:: 05/04/18 Subjective:: Patient reported worsening diarrhea today. No mucous or blood in stool. No associated abdominal pain or vomiting but reported episodes of nausea close enough to almost vomiting. No chest pain. remain on supplemental oxygen via nasal cannula and BiPAP usage while sleeping. Reason For Visit: DECOMPENSATED CHF WITH EXACERBATION,ACUTE ON Physical Exam Vital Signs: Temp Pulse Resp BP Pulse Ox 97.6 F 59 L 20 126/49 H 98 05/04/18 14:23 05/04/18 14:23 05/04/18 14:23 05/04/18 14:23 05/04/18 14:23 Intake & Output 05/03/18 05/04/18 05/05/18 06:59 06:59 06:59 Intake Total 2410 3413 2125 Balance 2410 3413 2125 Weight 45.5 kg 51 kg Physical Exam: General appearance: PRESENT: no acute distress, well-developed, well-nourished Head exam: PRESENT: atraumatic, normocephalic Eye exam: PRESENT: conjunctiva pink, EOMI, PERRLA. ABSENT: pallor, scleral icterus Ear exam: PRESENT: normal external ear exam Mouth exam: PRESENT: moist Respiratory exam: PRESENT: decreased breath sounds - at lung bases, rhonchi - minimal Cardiovascular exam: PRESENT: RRR, +S1, +S2. ABSENT: diastolic murmur, rubs, systolic murmur GI/Abdominal exam: PRESENT: normal bowel sounds, soft. ABSENT: distended, guarding, mass, organomegaly, rebound, tenderness Extremities exam: ABSENT: pedal edema Neurological exam: PRESENT: alert, awake, oriented to person, oriented to place, oriented to time, oriented to situation, CN II-XII grossly intact. ABSENT: motor sensory deficit Psychiatric exam: PRESENT: appropriate affect, normal mood. ABSENT: homicidal ideation, suicidal ideation Skin exam: PRESENT: dry, warm Results Laboratory Results: 05/04/18 05:13 05/04/18 05:13 05/04/18 05/04/18 05:13 05:13 WBC 24.4 H RBC 4.13 Hgb 11.7 L Hct 36.3 MCV 88 MCH 28.4 MCHC 32.3 RDW 17.5 H Plt Count 424 Seg Neutrophils % Not Reportable Lymphocytes % Not Reportable Monocytes % Not Reportable Eosinophils % Not Reportable Basophils % Not Reportable Absolute Neutrophils Not Reportable Absolute Lymphocytes Not Reportable Absolute Monocytes Not Reportable Absolute Eosinophils Not Reportable Absolute Basophils Not Reportable Sodium 136.1 L Potassium 3.9 Chloride 106 Carbon Dioxide 21 L Anion Gap 9 BUN 14 Creatinine 0.66 Est GFR ( Amer) > 60 Est GFR (Non-Af Amer) > 60 Glucose 125 H Calcium 9.2 05/01/18 17:46 Troponin I < 0.012 Impressions: Chest X-Ray 05/01/18 17:39 IMPRESSION: COPD. Atelectasis or early pneumonia left lower lobe. Assessment & Plan - Diagnosis (1) Chronic respiratory failure with hypoxia and hypercapnia Is this a current diagnosis for this admission?: Yes Plan: I do not agree with acute on chronic respiratory failure in carlos alberto of the stated diagnosis. 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 Patient has chronic respiratory failure and remain on supplemental oxygen prior to current admission. (2) Cardiac dysrhythmia Qualifiers: Arrhythmia type: unspecified cardiac arrhythmia Qualified Code(s): I49.9 - Cardiac arrhythmia, unspecified Is this a current diagnosis for this admission?: Yes (3) Recurrent colitis due to Clostridium difficile Is this a current diagnosis for this admission?: Yes (4) HTN (hypertension) Qualifiers: Hypertension type: essential hypertension Qualified Code(s): I10 - Essen tial (primary) hypertension Is this a current diagnosis for this admission?: Yes (5) HLD (hyperlipidemia) Qualifiers: Hyperlipidemia type: pure hypercholesterolemia Qualified Code(s): E78.00 - Pure hypercholesterolemia, unspecified Is this a current diagnosis for this admission?: Yes (6) Long-term current use of opiate analgesic Is this a current diagnosis for this admission?: Yes (7) Chronic pain syndrome Is this a current diagnosis for this admission?: Yes (8) Mixed anxiety and depressive disorder Is this a current diagnosis for this admission?: Yes (9) E. coli UTI (urinary tract infection) Is this a current diagnosis for this admission?: Yes (10) Pseudomonas pneumonia Qualifiers: Laterality: left Lung location: lower lobe of lung Qualified Code(s): J15.1 - Pneumonia due to Pseudomonas Is this a current diagnosis for this admission?: Yes Plan: D/C Ertapenem. Start on Meropenem due to increase risk of hospital acquired pneumonia in view of her recent readmissions. - Time Time Spent with patient: 25-34 minutes Medications reviewed and adjusted accordingly: Yes Anticipated discharge: Home with Homehealth Within: Other - Inpatient Certification Based on my medical assessment, after consideration of the patient's comorbidities, presenting symptoms, or acuity I expect that the services needed warrant INPATIENT care.: Yes I certify that my determination is in accordance with my understanding of Medicare's requirements for reasonable and necessary INPATIENT services [42 CFR 412.3e].: Yes Medical Necessity: Significant Comorbidiites Make Outpatient Treatment Too Risky, Need Close Monitoring Due to Risk of Patient Decompensation, Need For Continuous Telemetry Monitoring, Need for Nebulizer Therapy and Monitoring of Response, Need for IV Antibiotics, Risk of Complication if Not Cared For in Hospital, Risk of Diagnosis Which Will Require Inpatient Eval/Care/Monitoring Post Hospital Care: D/C Commis Chef Documentation - Plan Summary Plan Summary: See attending physician orders as per outlined care plan. Monitor severity of diarrhea and consider further intervention as indicated.
[2018-05-04] MEDS: ZOLPIDEM TARTRATE 5 MG TABLET PO PRN (22:18)
[2018-05-04] MEDS ORDERED: MEROPENEM 1 GM VIAL ONE (22:27)
[2018-05-04] MEDS: MEROPENEM 1 GM in NORMAL SALINE 50 ML IV SCH (22:40)
[2018-05-05] MEDS ORDERED: METHYLPREDNISOLONE INJ 125 MG/2 ML SDV IV SCH (02:00)
[2018-05-05] MEDS: METHYLPREDNISOLONE INJ 40 MG/1 ML SDV IV SCH ×3 (02:28→17:35)
[2018-05-05] MEDS: NORMAL SALINE 1000 ML 1,000 ML IV PRN ×2 (05:28→19:51)
[2018-05-05] MEDS: BUSPIRONE HCL 10 MG TABLET PO SCH ×3 (05:28→22:45)
[2018-05-05] MEDS: OXYCODONE-ACETAMINOPHEN 5-325 MG TABLET PO PRN ×2 (08:19→22:54)
[2018-05-05] MEDS: OXYCODONE HCL IR 5 MG TABLET PO PRN ×2 (08:19→22:50)
[2018-05-05] MEDS: ALPRAZOLAM 0.5 MG TABLET PO PRN ×2 (08:20→22:48)
[2018-05-05] MEDS: MEROPENEM 1 GM in NORMAL SALINE 50 ML IV SCH ×2 (11:44→22:47)
[2018-05-05] MEDS: CITALOPRAM HYDROBROMIDE 20 MG TABLET PO SCH (11:44)
[2018-05-05] MEDS: ROPINIROLE HCL 1 MG TABLET PO SCH ×3 (11:45→17:35)
[2018-05-05] MEDS: FLUTICASONE/UMECLIDIN/VILANTER 100-62.5-25 MCG/DOSE IH SCH (11:45)
[2018-05-05] MEDS: ACETAZOLAMIDE 250 MG TABLET PO SCH ×2 (11:45→22:47)
[2018-05-05] MEDS: FIDAXOMICIN 200 MG TABLET PO SCH ×2 (11:45→22:46)
--- NOTE | 2018-05-05 16:40 | PDOC PROGRESS REPORT ---
Subjective Progress Note for:: 05/05/18 Subjective:: Patient reported some degree of diarrhea persist but not as much as yesterday. No nausea, vomiting, or abdominal pain. No fever but experience occasional chills and outbreak of sweating. No chest pain., remain on supplemental oxygen via nasal cannula and BiPAP support while sleeping. Remain on oral Dificid and IV Meropenem coverage. Reason For Visit: DECOMPENSATED CHF WITH EXACERBATION,ACUTE ON Physical Exam Vital Signs: Temp Pulse Resp BP Pulse Ox 98.1 F 86 18 119/89 H 97 05/05/18 15:57 05/05/18 15:57 05/05/18 15:57 05/05/18 15:57 05/05/18 15:57 Intake & Output 05/04/18 05/05/18 05/06/18 06:59 06:59 06:59 Intake Total 3413 3912 500 Balance 3413 3912 500 Weight 51 kg 113.7 kg Physical Exam: General appearance: PRESENT: no acute distress, well-developed, well-nourished Head exam: PRESENT: atraumatic, normocephalic Eye exam: PRESENT: conjunctiva pink, EOMI, PERRLA. ABSENT: pallor, scleral icterus Ear exam: PRESENT: normal external ear exam Mouth exam: PRESENT: moist Respiratory exam: PRESENT: decreased breath sounds - at lung bases, rhonchi - minimal Cardiovascular exam: PRESENT: RRR, +S1, +S2. ABSENT: diastolic murmur, rubs, systolic murmur GI/Abdominal exam: PRESENT: normal bowel sounds, soft. ABSENT: distended, guarding, mass, organomegaly, rebound, tenderness Extremities exam: ABSENT: pedal edema Neurological exam: PRESENT: alert, awake, oriented to person, oriented to place, oriented to time, oriented to situation, CN II-XII grossly intact. ABSENT: motor sensory deficit Psychiatric exam: PRESENT: appropriate affect, normal mood. ABSENT: homicidal ideation, suicidal ideation Skin exam: PRESENT: dry, warm Results Laboratory Results: 05/04/18 05:13 05/04/18 05:13 05/02/18 08:35 Sputum Gram Stain - Final 05/01/18 17:46 Troponin I < 0.012 Impressions: Chest X-Ray 05/01/18 17:39 IMPRESSION: COPD. Atelectasis or early pneumonia left lower lobe. Assessment & Plan - Diagnosis (1) Chronic respiratory failure with hypoxia and hypercapnia Is this a current diagnosis for this admission?: Yes (2) Cardiac dysrhythmia Qualifiers: Arrhythmia type: unspecified cardiac arrhythmia Qualified Code(s): I49.9 - Cardiac arrhythmia, unspecified Is this a current diagnosis for this admission?: Yes (3) Recurrent colitis due to Clostridium difficile Is this a current diagnosis for this admission?: Yes (4) HTN (hypertension) Qualifiers: Hypertension type: essential hypertension Qualified Code(s): I10 - Essential (primary) hypertension Is this a current diagnosis for this admission?: Yes (5) HLD (hyperlipidemia) Qualifiers: Hyperlipidemia type: pure hypercholesterolemia Qualified Code(s): E78.00 - Pure hypercholesterolemia, unspecified Is this a current diagnosis for this admission?: Yes (6) Long-term current use of opiate analgesic Is this a current diagnosis for this admission?: Yes (7) Chronic pain syndrome Is this a current diagnosis for this admission?: Yes (8) Mixed anxiety and depressive disorder Is this a current diagnosis for this admission?: Yes (9) E. coli UTI (urinary tract infection) Is this a current diagnosis for this admission?: Yes (10) Pseudomonas pneumonia Qualifiers: Laterality: left Lung location: lower lobe of lung Qualified Code(s): J15.1 - Pneumonia due to Pseudomonas Is this a current diagnosis for this admission?: Yes - Time Time Spent with patient: 25-34 minutes Medications reviewed and adjusted accordingly: Yes Anticipated discharge: Home with Homehealth Within: Other - Inpatient Certification Based on my medical assessment, after consideration of the patient's comorbidities, presenting symptoms, or acuity I expect that the services needed warrant INPATIENT care.: Yes I certify that my determination is in accordance with my understanding of Medicare's requirements for reasonable and necessary INPATIENT services [42 CFR 412.3e].: Yes Medical Necessity: Significant Comorbidiites Make Outpatient Treatment Too Risky , Need Close Monitoring Due to Risk of Patient Decompensation, Need For Continuous Telemetry Monitoring, Need for Nebulizer Therapy and Monitoring of Response, Need for IV Antibiotics, Risk of Complication if Not Cared For in Hospital, Risk of Diagnosis Which Will Require Inpatient Eval/Care/Monitoring Post Hospital Care: 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 Start on Lactobacillus Acidophilus 500 mg po bid therapy to aide in C. difficile treatment.
[2018-05-05] MEDS: MONTELUKAST SODIUM 10 MG TABLET PO SCH (17:35)
[2018-05-05] MEDS: LACTOBACILLUS ACIDOPHILUS 250 MG TAB PO SCH (17:35)
[2018-05-05] MEDS: ZOLPIDEM TARTRATE 5 MG TABLET PO PRN (22:52)
[2018-05-06] MEDS: METHYLPREDNISOLONE INJ 40 MG/1 ML SDV IV SCH ×3 (02:05→17:08)
[2018-05-06] MEDS: BUSPIRONE HCL 10 MG TABLET PO SCH ×3 (05:47→22:29)
[2018-05-06] MEDS: NORMAL SALINE 1000 ML 1,000 ML IV PRN ×2 (06:00→20:20)
[2018-05-06] MEDS: OXYCODONE HCL IR 5 MG TABLET PO PRN ×2 (08:21→22:50)
[2018-05-06] MEDS: ALPRAZOLAM 0.5 MG TABLET PO PRN ×2 (08:22→22:52)
[2018-05-06] MEDS: OXYCODONE-ACETAMINOPHEN 5-325 MG TABLET PO PRN ×2 (08:22→22:49)
[2018-05-06] MEDS: ACETAZOLAMIDE 250 MG TABLET PO SCH ×2 (10:16→22:31)
[2018-05-06] MEDS: FIDAXOMICIN 200 MG TABLET PO SCH ×2 (10:16→22:31)
[2018-05-06] MEDS: LACTOBACILLUS ACIDOPHILUS 250 MG TAB PO SCH ×2 (10:17→17:08)
[2018-05-06] MEDS: CITALOPRAM HYDROBROMIDE 20 MG TABLET PO SCH (10:17)
[2018-05-06] MEDS: ROPINIROLE HCL 1 MG TABLET PO SCH ×3 (10:17→17:08)
[2018-05-06] MEDS: MEROPENEM 1 GM in NORMAL SALINE 50 ML IV SCH ×2 (10:17→22:32)
[2018-05-06] MEDS: FLUTICASONE/UMECLIDIN/VILANTER 100-62.5-25 MCG/DOSE IH SCH (10:17)
--- NOTE | 2018-05-06 15:34 | PDOC PROGRESS REPORT ---
Subjective Progress Note for:: 05/06/18 Subjective:: Patient reported some improvement inher diarrhea. No nausea, vomiting, or abdominal pain. No chest pain. Breathing is fair on supplemental oxygen via nasal cannula. No fever or chills. Reason For Visit: DECOMPENSATED CHF WITH EXACERBATION,ACUTE ON Physical Exam Vital Signs: Temp Pulse Resp BP Pulse Ox 97.7 F 60 16 107/50 L 95 05/06/18 12:37 05/06/18 14:00 05/06/18 12:37 05/06/18 12:37 05/06/18 12:37 Intake & Output 05/05/18 05/06/18 05/07/18 06:59 06:59 06:59 Intake Total 3912 3355 524 Balance 3912 3355 524 Weight 113.7 kg 114.4 kg Physical Exam: General appearance: PRESENT: no acute distress, well-developed, well-nourished Head exam: PRESENT: atraumatic, normocephalic Eye exam: PRESENT: conjunctiva pink ABSENT: pallor, scleral icterus Ear exam: PRESENT: normal external ear exam Mouth exam: PRESENT: moist Respiratory exam: PRESENT: decreased breath sounds - at lung bases Cardiovascular exam: PRESENT: RRR, +S1, +S2. ABSENT: diastolic murmur, rubs, systolic murmur GI/Abdominal exam: PRESENT: normal bowel sounds, soft. ABSENT: distended, guarding, mass, organomegaly, rebound, tenderness Extremities exam: ABSENT: pedal edema Neurological exam: PRESENT: alert, awake, oriented to person, oriented to place, oriented to time, oriented to situation, CN II-XII grossly intact. ABSENT: motor sensory deficit Psychiatric exam: PRESENT: appropriate affect, normal mood. ABSENT: homicidal ideation, suicidal ideation Skin exam: PRESENT: dry, warm Results Laboratory Results: 05/04/18 05:13 05/04/18 05:13 05/02/18 08:35 Sputum Gram Stain - Final 05/01/18 17:46 Troponin I < 0.012 Impressions: Chest X-Ray 05/01/18 17:39 IMPRESSION: COPD. Atelectasis or early pneumonia left lower lobe. Assessment & Plan - Diagnosis (1) Chronic respiratory failure with hypoxia and hypercapnia Is this a current diagnosis for this admission?: Yes (2) Cardiac dysrhythmia Qualifiers: Arrhythmia type: unspecified cardiac arrhythmia Qualified Code(s): I49.9 - Cardiac arrhythmia, unspecified Is this a current diagnosis for this admission?: Yes (3) Recurrent colitis due to Clostridium difficile Is this a current diagnosis for this admission?: Yes (4) HTN (hypertension) Qualifiers: Hypertension type: essential hypertension Qualified Code(s): I10 - Essential (primary) hypertension Is this a current diagnosis for this admission?: Yes (5) HLD (hyperlipidemia) Qualifiers: Hyperlipidemia type: pure hypercholesterolemia Qualified Code(s): E78.00 - Pure hypercholesterolemia, unspecified Is this a current diagnosis for this admission?: Yes (6) Long-term current use of opiate analgesic Is this a current diagnosis for this admission?: Yes (7) Chronic pain syndrome Is this a current diagnosis for this admission?: Yes (8) Mixed anxiety and depressive disorder Is this a current diagnosis for this admission?: Yes (9) E. coli UTI (urinary tract infection) Is this a current diagnosis for this admission?: Yes (10) Pseudomonas pneumonia Qualifiers: Laterality: left Lung location: lower lobe of lung Qualified Code(s): J15.1 - Pneumonia due to Pseudomonas Is this a current diagnosis for this admission?: Yes - Time Time Spent with patient: 25-34 minutes Medications reviewed and adjusted accordingly: Yes Anticipated discharge: Home with Homehealth Within: Other - Inpatient Certification Based on my medical assessment, after consideration of the patient's comorbidities, presenting symptoms, or acuity I expect that the services needed warrant INPATIENT care.: Yes I certify that my determination is in accordance with my understanding of Medicare's requirements for reasonable and necessary INPATIENT services [42 CFR 412.3e].: Yes Medical Necessity: Significant Comorbidiites Make Outpatient Treatment Too Risky, Need Close Monitoring Due to Risk of Patient Decompensation, Need For IV Fluids, Need For Continuous Telemetry Monitoring, Need for Nebulizer Therapy and Monitoring of Response, Need for IV Antibiotics, Risk of Complication if Not Cared For in Hospital, Risk of Diagnosis Which Will Require Inpatient Eval/Care/Monitoring Post Hospital Care: D/C Shirt Operator Documentation - Plan Summary Plan Summary: Continue current medication management. Obtain CBC with diff and CMP in am.
[2018-05-06] MEDS: MONTELUKAST SODIUM 10 MG TABLET PO SCH (17:08)
[2018-05-06] MEDS: ENOXAPARIN SODIUM INJ 40 MG/0.4 ML DISP.SYRIN SUBCUT SCH (17:08)
[2018-05-06] MEDS: ZOLPIDEM TARTRATE 5 MG TABLET PO PRN (22:52)
[2018-05-07] MEDS: METHYLPREDNISOLONE INJ 40 MG/1 ML SDV IV SCH ×3 (02:00→17:55)
[2018-05-07] MEDS: BUSPIRONE HCL 10 MG TABLET PO SCH ×3 (05:52→22:13)
[2018-05-07] MEDS: ALPRAZOLAM 0.5 MG TABLET PO PRN ×3 (06:09→22:16)
[2018-05-07] MEDS: OXYCODONE-ACETAMINOPHEN 5-325 MG TABLET PO PRN ×3 (06:09→22:16)
[2018-05-07 06:54] LABS: ALANINE AMINOTRANSFERASE 9 U/L (9-52); ALKALINE PHOSPHATASE 69 U/L (38-126); ANION GAP 5 (5-19); ASPARTATE AMINO TRANSFERASE 13 U/L (14-36); BILIRUBIN,DIRECT 0.2 mg/dL (0.0-0.4); BILIRUBIN,TOTAL 0.3 mg/dL (0.2-1.3); BLOOD UREA NITROGEN 21 mg/dL (7-20); CALCIUM 9.1 mg/dL (8.4-10.2); CARBON DIOXIDE 21 mmol/L (22-30); CHLORIDE 112 mmol/L (98-107); GLUCOSE 82 mg/dL (75-110); SODIUM 138.3 mmol/L (137-145); TOTAL PROTEIN 6.5 g/dL (6.3-8.2)
[2018-05-07 06:55] LABS: HEMATOCRIT 39.7 % (36.0-47.0); HEMOGLOBIN 12.9 g/dL (12.0-15.5); MEAN CORPUSCULAR HEMOGLOBIN 28.4 pg (27.0-33.4); MEAN CORPUSCULAR HGB CONC 32.4 g/dL (32.0-36.0); MEAN CORPUSCULAR VOLUME 88 fl (80-97); PLATELET COUNT 436 10^3/uL (150-450); RED BLOOD COUNT 4.53 10^6/uL (3.72-5.28); RED CELL DISTRIBUTION WIDTH 17.9 % (11.5-14.0); WHITE BLOOD COUNT 20.7 10^3/uL (4.0-10.5)
[2018-05-07 07:16] LABS: ABSOLUTE LYMPHOCYTES# (MANUAL) 2.3 10^3/uL (0.5-4.7); ABSOLUTE MONOCYTES # (MANUAL) 0.4 10^3/uL (0.1-1.4); BAND NEUTROPHILS % (MANUAL) 2 % (3-5); BASOPHILS % (MANUAL) 0 % (0-2); EOSINOPHILS % (MANUAL) 0 % (0-6); LYMPHOCYTES % (MANUAL) 11 % (13-45); METAMYELOCYTES % (MANUAL) 1 % (0); MONOCYTES % (MANUAL) 2 % (3-13); SEGMENTED NEUTROPHILS % (MAN) 84 % (42-78); TOTAL CELLS COUNTED 100
[2018-05-07 07:17] LABS: PLATELET COMMENT ADEQUATE
[2018-05-07 07:19] LABS: HYPOCHROMASIA 1+
[2018-05-07 07:20] LABS: ANISOCYTOSIS 1+; BURR CELLS 1+; POIKILOCYTOSIS SLIGHT
[2018-05-07] MEDS: LACTOBACILLUS ACIDOPHILUS 250 MG TAB PO SCH ×2 (10:09→17:55)
[2018-05-07] MEDS: ENOXAPARIN SODIUM INJ 40 MG/0.4 ML DISP.SYRIN SUBCUT SCH (10:10)
[2018-05-07] MEDS: ACETAZOLAMIDE 250 MG TABLET PO SCH ×2 (10:10→22:14)
[2018-05-07] MEDS: CITALOPRAM HYDROBROMIDE 20 MG TABLET PO SCH (10:10)
[2018-05-07] MEDS: ROPINIROLE HCL 1 MG TABLET PO SCH ×3 (10:10→17:55)
[2018-05-07] MEDS: FIDAXOMICIN 200 MG TABLET PO SCH ×2 (10:10→22:15)
[2018-05-07] MEDS: MEROPENEM 1 GM in NORMAL SALINE 50 ML IV SCH ×2 (10:10→22:15)
[2018-05-07] MEDS: FLUTICASONE/UMECLIDIN/VILANTER 100-62.5-25 MCG/DOSE IH SCH (10:11)
[2018-05-07] MEDS: NORMAL SALINE 1000 ML 1,000 ML IV PRN ×2 (10:11→22:26)
[2018-05-07] MEDS: OXYCODONE HCL IR 5 MG TABLET PO PRN ×2 (14:38→22:17)
--- NOTE | 2018-05-07 16:45 | PDOC PROGRESS REPORT ---
Subjective Progress Note for:: 05/07/18 Subjective:: Patient reported no diarrhea, nausea, vomiting, or abdominal pain. No chest pain. Her breathing remain stable presently on supplemental oxygen via nasal cannula. No fever or chills. Reason For Visit: DECOMPENSATED CHF WITH EXACERBATION,ACUTE ON Physical Exam Vital Signs: Temp Pulse Resp BP Pulse Ox 97.5 F 68 17 116/54 L 99 05/07/18 12:44 05/07/18 12:44 05/07/18 12:44 05/07/18 12:44 05/07/18 12:44 Intake & Output 05/06/18 05/07/18 05/08/18 06:59 06:59 06:59 Intake Total 3355 2548 1487 Balance 3355 2548 1487 Weight 114.4 kg 48.2 kg Physical Exam: General appearance: PRESENT: no acute distress, well-developed, well-nourished Head exam: PRESENT: atraumatic, normocephalic Eye exam: PRESENT: conjunctiva pink ABSENT: pallor, scleral icterus Ear exam: PRESENT: normal external ear exam Mouth exam: PRESENT: moist Respiratory exam: PRESENT: decreased breath sounds - at lung bases Cardiovascular exam: PRESENT: RRR, +S1, +S2. ABSENT: diastolic murmur, rubs, systolic murmur GI/Abdominal exam: PRESENT: normal bowel sounds, soft. ABSENT: distended, guarding, mass, organomegaly, rebound, tenderness Extremities exam: ABSENT: pedal edema Neurological exam: PRESENT: alert, awake, oriented to person, oriented to place, oriented to time, oriented to situation, CN II-XII grossly intact. ABSENT: motor sensory deficit Psychiatric exam: PRESENT: appropriate affect, normal mood. ABSENT: homicidal ideation, suicidal ideation Skin exam: PRESENT: dry, warm Results Laboratory Results: 05/07/18 05:55 05/07/18 05:55 05/07/18 05/07/18 05:55 05:55 WBC 20.7 H RBC 4.53 Hgb 12.9 Hct 39.7 MCV 88 MCH 28.4 MCHC 32.4 RDW 17.9 H Plt Count 436 Seg Neutrophils % Not Reportable Lymphocytes % Not Reportable Monocytes % Not Reportable Eosinophils % Not Reportable Basophils % Not Reportable Absolute Neutrophils Not Reportable Absolute Lymphocytes Not Reportable Absolute Monocytes Not Reportable Absolute Eosinophils Not Reportable Absolute Basophils Not Reportable Sodium 138.3 Potassium 4.0 Chloride 112 H Carbon Dioxide 21 L Anion Gap 5 BUN 21 H Creatinine 0.75 Est GFR ( Amer) > 60 Est GFR (Non-Af Amer) > 60 Glucose 82 Calcium 9.1 Total Bilirubin 0.3 AST 13 L ALT 9 Alkaline Phosphatase 69 Total Protein 6.5 Albumin 3.0 L 05/02/18 01:35 Blood Blood Culture - Final NO GROWTH IN 5 DAYS 05/01/18 17:46 Blood Blood Culture - Final NO GROWTH IN 5 DAYS 05/02/18 08:35 Sputum Gram Stain - Final 05/02/18 08:35 Sputum Sputum Culture - Final Pseudomonas Aeruginosa Staphylococcus Aureus Normal Analy Absent 05/01/18 17:46 Troponin I < 0.012 Impressions: Chest X-Ray 05/01/18 17:39 IMPRESSION: COPD. Atelectasis or early pneumonia left lower lobe. Assessment & Plan - Diagnosis (1) Chronic respiratory failure with hypoxia and hypercapnia Is this a current diagnosis for this admission?: Yes (2) Cardiac dysrhythmia Qualifiers: Arrhythmia type: unspecified cardiac arrhythmia Qualified Code(s): I49.9 - Cardiac arrhythmia, unspecified Is this a current diagnosis for this admission?: Yes (3) Recurrent colitis due to Clostridium difficile Is this a current diagnosis for this admission?: Yes (4) HTN (hypertension) Qualifiers: Hypertension type: essential hypertension Qualified Code(s): I10 - Es sential (primary) hypertension Is this a current diagnosis for this admission?: Yes (5) HLD (hyperlipidemia) Qualifiers: Hyperlipidemia type: pure hypercholesterolemia Qualified Code(s): E78.00 - Pure hypercholesterolemia, unspecified Is this a current diagnosis for this admission?: Yes (6) Long-term current use of opiate analgesic Is this a current diagnosis for this admission?: Yes (7) Chronic pain syndrome Is this a current diagnosis for this admission?: Yes (8) Mixed anxiety and depressive disorder Is this a current diagnosis for this admission?: Yes (9) E. coli UTI (urinary tract infection) Is this a current diagnosis for this admission?: Yes (10) Pseudomonas pneumonia Qualifiers: Laterality: left Lung location: lower lobe of lung Qualified Code(s): J15.1 - Pneumonia due to Pseudomonas Is this a current diagnosis for this admission?: Yes - Time Time Spent with patient: 25-34 minutes Medications reviewed and adjusted accordingly: Yes Anticipated discharge: Home with Homehealth - Inpatient Certification Based on my medical assessment, after consideration of the patient's comorbidities, presenting symptoms, or acuity I expect that the services needed warrant INPATIENT care.: Yes I certify that my determination is in accordance with my understanding of Medicare's requirements for reasonable and necessary INPATIENT services [42 CFR 412.3e].: Yes Medical Necessity: Significant Comorbidiites Make Outpatient Treatment Too Risky, Need Close Monitoring Due to Risk of Patient Decompensation, Need For IV Fluids, Need For Continuous Telemetry Monitoring, Need for IV Antibiotics, Risk of Complication if Not Cared For in Hospital, Risk of Diagnosis Which Will Require Inpatient Eval/Care/Monitoring Post Hospital Care: D/C [employer] 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
[2018-05-07] MEDS: MONTELUKAST SODIUM 10 MG TABLET PO SCH (17:55)
[2018-05-07] MEDS ORDERED: NYSTATIN CREAM 15 GM TP PRN (20:19)
[2018-05-07] MEDS ORDERED: NYSTATIN CREAM 15 GM ONE (20:48)
[2018-05-07] MEDS: ZOLPIDEM TARTRATE 5 MG TABLET PO PRN (22:16)
[2018-05-08] MEDS: METHYLPREDNISOLONE INJ 40 MG/1 ML SDV IV SCH ×2 (01:48→11:17)
[2018-05-08] MEDS: BUSPIRONE HCL 10 MG TABLET PO SCH ×3 (05:20→21:17)
[2018-05-08] MEDS: ALPRAZOLAM 0.5 MG TABLET PO PRN (06:59)
[2018-05-08] MEDS: OXYCODONE-ACETAMINOPHEN 5-325 MG TABLET PO PRN ×2 (06:59→15:20)
[2018-05-08] MEDS: ACETAZOLAMIDE 250 MG TABLET PO SCH ×2 (11:07→21:17)
[2018-05-08] MEDS: FLUTICASONE/UMECLIDIN/VILANTER 100-62.5-25 MCG/DOSE IH SCH (11:07)
[2018-05-08] MEDS: CITALOPRAM HYDROBROMIDE 20 MG TABLET PO SCH (11:08)
[2018-05-08] MEDS: ENOXAPARIN SODIUM INJ 40 MG/0.4 ML DISP.SYRIN SUBCUT SCH (11:08)
[2018-05-08] MEDS: LACTOBACILLUS ACIDOPHILUS 250 MG TAB PO SCH ×2 (11:08→18:07)
[2018-05-08] MEDS: ROPINIROLE HCL 1 MG TABLET PO SCH ×3 (11:09→18:06)
[2018-05-08] MEDS: FIDAXOMICIN 200 MG TABLET PO SCH ×2 (11:09→21:17)
[2018-05-08] MEDS: MEROPENEM 1 GM in NORMAL SALINE 50 ML IV SCH ×2 (11:17→21:18)
[2018-05-08] MEDS: NORMAL SALINE 1000 ML 1,000 ML IV PRN (13:39)
--- NOTE | 2018-05-08 13:41 | PDOC PROGRESS REPORT ---
Subjective Progress Note for:: 05/08/18 Subjective:: No diarrhea, nausea, vomiting, or abdominal pain. Breathing is okay on supplemental oxygen via nasal cannula. No chest pain. No fever or chills. Report yeast rash in breast skin fold bilaterally. Reason For Visit: DECOMPENSATED CHF WITH EXACERBATION,ACUTE ON Physical Exam Vital Signs: Temp Pulse Resp BP Pulse Ox 97.5 F 60 17 159/73 H 98 05/08/18 03:57 05/08/18 07:00 05/08/18 04:15 05/08/18 03:57 05/08/18 04:15 Intake & Output 05/07/18 05/08/18 05/09/18 06:59 06:59 06:59 Intake Total 2548 3056 Balance 2548 3056 Weight 48.2 kg 49.9 kg Physical Exam: General appearance: PRESENT: no acute distress, well-developed, well-nourished Head exam: PRESENT: atraumatic, normocephalic Eye exam: PRESENT: conjunctiva pink ABSENT: pallor, scleral icterus Respiratory exam: PRESENT: decreased breath sounds - at lung bases Cardiovascular exam: PRESENT: RRR, +S1, +S2. ABSENT: diastolic murmur, rubs, systolic murmur GI/Abdominal exam: PRESENT: normal bowel sounds, soft. ABSENT: distended, guarding, mass, organomegaly, rebound, tenderness Extremities exam: ABSENT: pedal edema Neurological exam: PRESENT: alert, awake, oriented to person, oriented to place, oriented to time, oriented to situation, CN II-XII grossly intact. ABSENT: motor sensory deficit Psychiatric exam: PRESENT: appropriate affect, normal mood. ABSENT: homicidal ideation, suicidal ideation Skin exam: PRESENT: dry, warm, poorly demarcated erythematous rash in breast skin fold Results Laboratory Results: 05/07/18 05:55 05/07/18 05:55 05/01/18 17:46 Troponin I < 0.012 Impressions: Chest X-Ray 05/01/18 17:39 IMPRESSION: COPD. Atelectasis or early pneumonia left lower lobe. Assessment & Plan - Diagnosis (1) Chronic respiratory failure with hypoxia and hypercapnia Is this a current diagnosis for this admission?: Yes (2) Recurrent colitis due to Clostridium difficile Is this a current diagnosis for this admission?: Yes (3) E. coli UTI (urinary tract infection) Is this a current diagnosis for this admission?: Yes (4) Pseudomonas pneumonia Qualifiers: Laterality: left Lung location: lower lobe of lung Qualified Code(s): J15.1 - Pneumonia due to Pseudomonas Is this a current diagnosis for this admission?: Yes (5) Cardiac dysrhythmia Qualifiers: Arrhythmia type: unspecified cardiac arrhythmia Qualified Code(s): I49.9 - Cardiac arrhythmia, unspecified Is this a current diagnosis for this admission?: Yes (6) HTN (hypertension) Qualifiers: Hypertension type: essential hypertension Qualified Code(s): I10 - Essential (primary) hypertension Is this a current diagnosis for this admission?: Yes (7) HLD (hyperlipidemia) Qualifiers: Hyperlipidemia type: pure hypercholesterolemia Qualified Code(s): E78.00 - Pure hypercholesterolemia, unspecified Is this a current diagnosis for this admission?: Yes (8) Long-term current use of opiate analgesic Is this a current diagnosis for this admission?: Yes (9) Chronic pain syndrome Is this a current diagnosis for this admission?: Yes (10) Mixed anxiety and depressive disorder Is this a current diagnosis for this admission?: Yes (11) Yeast dermatitis Is this a current diagnosis for this admission?: Yes Plan: Maintain on Nystatin cream therapy to affected areas tid. - Time Time Spent with patient: 25-34 minutes Medications reviewed and adjusted accordingly: Yes Anticipated discharge: Home with Homehealth Within: Other - Inpatient Certification Based on my medical assessment, after consideration of the patient's comorbidities, presenting symptoms, or acuity I expect that the services needed warrant INPATIENT care.: Yes I certify that my determination is in accordance with my understanding of Medicare's requirements for reasonable and necessary INPATIENT services [42 CFR 412.3e].: Yes Medical Necessity: Significant Comorbidiites Make Outpatient Treatment Too Risky, Need Close Monitoring Due to Risk of Patient Decompensation, Need For IV Fluids, Need For Continuous Telemetry Monitoring, Need for IV Antibiotics, Risk of Complication if Not Cared For in Hospital, Risk of Diagnosis Which Will Requ rodo Inpatient Eval/Care/Monitoring Post Hospital Care: D/C [employer] Associate Documentation - Plan Summary Plan Summary: Decrease IV Solu Medrol to 40 mg q12 hours. Continue all other current medication management. Obtain CBC with diff and CMP in AM.
[2018-05-08] MEDS: OXYCODONE HCL IR 5 MG TABLET PO PRN (15:19)
[2018-05-08] MEDS: NYSTATIN CREAM 15 GM TP SCH ×2 (15:22→18:08)
[2018-05-08] MEDS: MONTELUKAST SODIUM 10 MG TABLET PO SCH (18:05)
[2018-05-08] MEDS: ZOLPIDEM TARTRATE 5 MG TABLET PO PRN (21:17)
[2018-05-08] MEDS ORDERED: METHYLPREDNISOLONE INJ 40 MG/1 ML SDV IV SCH (22:00)
[2018-05-09] MEDS: ALPRAZOLAM 0.5 MG TABLET PO PRN ×3 (03:19→23:27)
[2018-05-09] MEDS: OXYCODONE HCL IR 5 MG TABLET PO PRN ×3 (03:19→23:28)
[2018-05-09] MEDS: OXYCODONE-ACETAMINOPHEN 5-325 MG TABLET PO PRN ×3 (03:20→23:27)
[2018-05-09 04:42] LABS: HEMOGLOBIN 12.7 g/dL (12.0-15.5); MEAN CORPUSCULAR HEMOGLOBIN 27.7 pg (27.0-33.4); MEAN CORPUSCULAR HGB CONC 31.8 g/dL (32.0-36.0); MEAN CORPUSCULAR VOLUME 87 fl (80-97); PLATELET COUNT 433 10^3/uL (150-450); RED BLOOD COUNT 4.58 10^6/uL (3.72-5.28); RED CELL DISTRIBUTION WIDTH 18.2 % (11.5-14.0); WHITE BLOOD COUNT 22.8 10^3/uL (4.0-10.5)
[2018-05-09 05:00] LABS: ALANINE AMINOTRANSFERASE 18 U/L (9-52); ALBUMIN 2.7 g/dL (3.5-5.0); ALKALINE PHOSPHATASE 99 U/L (38-126); ASPARTATE AMINO TRANSFERASE 14 U/L (14-36); BILIRUBIN,DIRECT 0.2 mg/dL (0.0-0.4); BILIRUBIN,TOTAL 0.2 mg/dL (0.2-1.3); BLOOD UREA NITROGEN 26 mg/dL (7-20); CALCIUM 8.7 mg/dL (8.4-10.2); CARBON DIOXIDE 25 mmol/L (22-30); CHLORIDE 108 mmol/L (98-107); GLUCOSE 100 mg/dL (75-110); POTASSIUM 4.3 mmol/L (3.6-5.0); SODIUM 137.1 mmol/L (137-145); TOTAL PROTEIN 5.9 g/dL (6.3-8.2)
[2018-05-09 05:04] LABS: ABSOLUTE LYMPHOCYTES# (MANUAL) 4.1 10^3/uL (0.5-4.7); ABSOLUTE MONOCYTES # (MANUAL) 0.2 10^3/uL (0.1-1.4); ABSOLUTE NEUTROPHILS# (MANUAL) 18.5 10^3/uL (1.7-8.2); BASOPHILS % (MANUAL) 0 % (0-2); EOSINOPHILS % (MANUAL) 0 % (0-6); LYMPHOCYTES % (MANUAL) 18 % (13-45); MONOCYTES % (MANUAL) 1 % (3-13); SEGMENTED NEUTROPHILS % (MAN) 81 % (42-78); TOTAL CELLS COUNTED 100
[2018-05-09 05:10] LABS: ANION GAP 5 (5-19); ANISOCYTOSIS 1+; OVALOCYTES 1+; POIKILOCYTOSIS 1+; SCHISTOCYTES SLIGHT; TEAR DROP CELLS SLIGHT; TOXIC GRANULATION 1+; TOXIC VACUOLATION PRESENT
[2018-05-09] MEDS: BUSPIRONE HCL 10 MG TABLET PO SCH ×3 (05:10→21:27)
[2018-05-09 05:11] LABS: PLATELET COMMENT ADEQUATE
[2018-05-09] MEDS: NORMAL SALINE 1000 ML 1,000 ML IV PRN (05:24)
[2018-05-09] MEDS: ACETAZOLAMIDE 250 MG TABLET PO SCH ×2 (09:22→21:28)
[2018-05-09] MEDS: MEROPENEM 1 GM in NORMAL SALINE 50 ML IV SCH ×2 (09:22→21:37)
[2018-05-09] MEDS: ENOXAPARIN SODIUM INJ 40 MG/0.4 ML DISP.SYRIN SUBCUT SCH (09:22)
[2018-05-09] MEDS: LACTOBACILLUS ACIDOPHILUS 250 MG TAB PO SCH ×2 (09:22→17:28)
[2018-05-09] MEDS: ROPINIROLE HCL 1 MG TABLET PO SCH ×3 (09:23→17:28)
[2018-05-09] MEDS: METHYLPREDNISOLONE INJ 40 MG/1 ML SDV IV SCH ×2 (09:23→21:27)
[2018-05-09] MEDS: FIDAXOMICIN 200 MG TABLET PO SCH ×2 (09:23→21:28)
[2018-05-09] MEDS: CITALOPRAM HYDROBROMIDE 20 MG TABLET PO SCH (09:23)
[2018-05-09] MEDS: NYSTATIN CREAM 15 GM TP SCH ×3 (09:24→17:28)
[2018-05-09] MEDS: FLUTICASONE/UMECLIDIN/VILANTER 100-62.5-25 MCG/DOSE IH SCH (09:25)
[2018-05-09] MEDS: MONTELUKAST SODIUM 10 MG TABLET PO SCH (17:28)
--- NOTE | 2018-05-09 18:55 | PDOC PROGRESS REPORT ---
Subjective Progress Note for:: 05/09/18 Subjective:: Patient reported improvement in her diarrhea, stool are formed but soft. No nausea, vomiting, or abdominal pain. No fever or chills. No chest pain. Breathing is okay on supplemental oxygen via nasal cannula and BiPAP support. Reason For Visit: DECOMPENSATED CHF WITH EXACERBATION,ACUTE ON Physical Exam Vital Signs: Temp Pulse Resp BP Pulse Ox 97.3 F 60 16 159/69 H 99 05/09/18 02:54 05/09/18 07:00 05/09/18 02:54 05/09/18 05:00 05/09/18 02:54 Intake & Output 05/08/18 05/09/18 05/10/18 06:59 06:59 06:59 Intake Total 3056 3342 Balance 3056 3342 Weight 49.9 kg 50 kg Physical Exam: General appearance: PRESENT: no acute distress, well-developed, well-nourished Head exam: PRESENT: atraumatic, normocephalic Eye exam: PRESENT: conjunctiva pink ABSENT: pallor, scleral icterus Respiratory exam: PRESENT: decreased breath sounds - at lung bases Cardiovascular exam: PRESENT: RRR, +S1, +S2. ABSENT: diastolic murmur, rubs, systolic murmur GI/Abdominal exam: PRESENT: normal bowel sounds, soft. ABSENT: distended, guarding, mass, organomegaly, rebound, tenderness Extremities exam: ABSENT: pedal edema Neurological exam: PRESENT: alert, awake, oriented to person, oriented to place, oriented to time, oriented to situation, CN II-XII grossly intact. ABSENT: motor sensory deficit Psychiatric exam: PRESENT: appropriate affect, normal mood. ABSENT: homicidal ideation, suicidal ideation Skin exam: PRESENT: dry, warm, improving rash in breast skin folds Results Laboratory Results: 05/09/18 04:30 05/09/18 04:30 05/09/18 05/09/18 04:30 04:30 WBC 22.8 H RBC 4.58 Hgb 12.7 Hct 40.0 MCV 87 MCH 27.7 MCHC 31.8 L RDW 18.2 H Plt Count 433 Seg Neutrophils % Not Reportable Lymphocytes % Not Reportable Monocytes % Not Reportable Eosinophils % Not Reportable Basophils % Not Reportable Absolute Neutrophils Not Reportable Absolute Lymphocytes Not Reportable Absolute Monocytes Not Reportable Absolute Eosinophils Not Reportable Absolute Basophils Not Reportable Sodium 137.1 Potassium 4.3 Chloride 108 H Carbon Dioxide 25 Anion Gap 5 BUN 26 H Creatinine 0.79 Est GFR ( Amer) > 60 Est GFR (Non-Af Amer) > 60 Glucose 100 Calcium 8.7 Total Bilirubin 0.2 AST 14 ALT 18 Alkaline Phosphatase 99 Total Protein 5.9 L Albumin 2.7 L 05/01/18 17:46 Troponin I < 0.012 Impressions: Chest X-Ray 05/01/18 17:39 IMPRESSION: COPD. Atelectasis or early pneumonia left lower lobe. Assessment & Plan - Diagnosis (1) Chronic respiratory failure with hypoxia and hypercapnia Is this a current diagnosis for this admission?: Yes (2) Recurrent colitis due to Clostridium difficile Is this a current diagnosis for this admission?: Yes (3) E. coli UTI (urinary tract infection) Is this a current diagnosis for this admission?: Yes (4) Pseudomonas pneumonia Qualifiers: Laterality: left Lung location: lower lobe of lung Qualified Code(s): J15.1 - Pneumonia due to Pseudomonas Is this a current diagnosis for this admission?: Yes (5) Cardiac dysrhythmia Qualifiers: Arrhythmia type: unspecified cardiac arrhythmia Qualified Code(s): I49.9 - Cardiac arrhythmia, unspecified Is this a current diagnosis for this admission?: Yes (6) HTN (hypertension) Qualifiers: Hypertension type: essential hypertension Qualified Code(s): I10 - Essential (primary) hypertension Is this a current diagnosis for this admission?: Yes (7) HLD (hyperlipidemia) Qualifiers: Hyperlipidemia type: pure hypercholesterolemia Qualified Code(s): E78.00 - Pure hypercholesterolemia, unspecified Is this a current diagnosis for this admission?: Yes (8) Long-term current use of opiate analgesic Is this a current diagnosis for this admission?: Yes (9) Chronic pain syndrome Is this a current diagnosis for this admission?: Yes (10) Mixed anxiety and depressive disorder Is this a current diagnosis for this admission?: Yes (11) Yeast dermatitis Is this a current diagnosis for this admission?: Yes - Time Time Spent with patient: 25-34 minutes Medications reviewed and adjusted accordingly: Yes Anticipated discharge: Home with Homehealth Within: Other - Inpatient Certification Based on my medical assessment, after consideration of the patient's comorbidities, presenting symptoms, or acuity I expect that the services needed warrant INPATIENT care.: Yes I certify that my determination is in accordance with my understanding of Medicare's requirements for reasonable and necessary INPATIENT services [42 CFR 412.3e].: Yes Medical Necessity: Significant Comorbidiites Make Outpatient Treatment Too Risky, Need Close Monitoring Due to Risk of Patient Decompensation, Need For IV Fluids, Need For Continuous Telemetry Monitoring, Need for Nebulizer Therapy and Monitoring of Response, Need for IV Antibiotics, Risk of Complication if Not Cared For in Hospital, Risk of Diagnosis Which Will Require Inpatient Eval/Care/Monitoring Post Hospital Care: D/C Container Coordinator Documentation - Plan Summary Plan Summary: D/C IV fluid. Heplock IV access site. Decrease IV Solu Medrol to 20 mg q12 hours. Continue all other current medication management.
[2018-05-09] MEDS: ZOLPIDEM TARTRATE 5 MG TABLET PO PRN (23:27)
[2018-05-10] MEDS: BUSPIRONE HCL 10 MG TABLET PO SCH ×3 (05:43→21:22)
[2018-05-10] MEDS: OXYCODONE-ACETAMINOPHEN 5-325 MG TABLET PO PRN ×2 (08:27→22:56)
[2018-05-10] MEDS: OXYCODONE HCL IR 5 MG TABLET PO PRN ×2 (08:27→22:57)
[2018-05-10] MEDS: ACETAZOLAMIDE 250 MG TABLET PO SCH ×2 (09:31→21:22)
[2018-05-10] MEDS: ENOXAPARIN SODIUM INJ 40 MG/0.4 ML DISP.SYRIN SUBCUT SCH (09:31)
[2018-05-10] MEDS: METHYLPREDNISOLONE INJ 40 MG/1 ML SDV IV SCH ×2 (09:31→21:23)
[2018-05-10] MEDS: MEROPENEM 1 GM in NORMAL SALINE 50 ML IV SCH ×2 (09:31→21:22)
[2018-05-10] MEDS: CITALOPRAM HYDROBROMIDE 20 MG TABLET PO SCH (09:32)
[2018-05-10] MEDS: ROPINIROLE HCL 1 MG TABLET PO SCH ×3 (09:32→18:03)
[2018-05-10] MEDS: FIDAXOMICIN 200 MG TABLET PO SCH ×2 (09:32→21:22)
[2018-05-10] MEDS: LACTOBACILLUS ACIDOPHILUS 250 MG TAB PO SCH ×2 (09:32→18:03)
[2018-05-10] MEDS: FLUTICASONE/UMECLIDIN/VILANTER 100-62.5-25 MCG/DOSE IH SCH (09:34)
[2018-05-10] MEDS: NYSTATIN CREAM 15 GM TP SCH ×3 (09:35→18:03)
[2018-05-10] MEDS: LEVALBUTEROL HCL NEB 1.25 MG/3 ML AMPUL NEB PRN (10:59)
[2018-05-10] MEDS: MONTELUKAST SODIUM 10 MG TABLET PO SCH (18:03)
--- NOTE | 2018-05-10 18:43 | PDOC PROGRESS REPORT ---
Subjective Progress Note for:: 05/10/18 Subjective:: Patient reported episode of blood on her tissue paper with bowel movement last night. No recurrence so far today. Frequent bowel movement persist but no lisa water diarrhea. No nausea, vomiting, or abdominal pain. No fever or chills. No chest pain. She reported satisfactory breathing on supplemental oxygen via nasal cannula and BiPAP support. Reason For Visit: DECOMPENSATED CHF WITH EXACERBATION,ACUTE ON Physical Exam Vital Signs: Temp Pulse Resp BP Pulse Ox 97.5 F 60 19 141/71 H 98 05/10/18 03:39 05/10/18 06:50 05/10/18 03:39 05/10/18 03:39 05/10/18 03:39 Intake & Output 05/09/18 05/10/18 05/11/18 06:59 06:59 06:59 Intake Total 3342 2597 Balance 3342 2597 Weight 50 kg 51.1 kg Physical Exam: General appearance: PRESENT: no acute distress Head exam: PRESENT: atraumatic, normocephalic Eye exam: PRESENT: conjunctiva pink ABSENT: pallor, scleral icterus Respiratory exam: PRESENT: decreased breath sounds - at lung bases Cardiovascular exam: PRESENT: RRR, +S1, +S2. ABSENT: diastolic murmur, rubs, systolic murmur GI/Abdominal exam: PRESENT: normal bowel sounds, soft. ABSENT: distended, gua rding, mass, organomegaly, rebound, tenderness Extremities exam: ABSENT: pedal edema Neurological exam: PRESENT: alert, awake, oriented to person, oriented to place, oriented to time, oriented to situation, CN II-XII grossly intact. ABSENT: motor sensory deficit Psychiatric exam: PRESENT: appropriate affect, normal mood. ABSENT: homicidal ideation, suicidal ideation Skin exam: PRESENT: dry, warm, improving rash in breast skin folds Results Laboratory Results: 05/09/18 04:30 05/09/18 04:30 05/01/18 17:46 Troponin I < 0.012 Impressions: Chest X-Ray 05/01/18 17:39 IMPRESSION: COPD. Atelectasis or early pneumonia left lower lobe. Assessment & Plan - Diagnosis (1) Chronic respiratory failure with hypoxia and hypercapnia Is this a current diagnosis for this admission?: Yes (2) Recurrent colitis due to Clostridium difficile Is this a current diagnosis for this admission?: Yes (3) E. coli UTI (urinary tract infection) Is this a current diagnosis for this admission?: Yes (4) Pseudomonas pneumonia Qualifiers: Laterality: left Lung location: lower lobe of lung Qualified Code(s): J15.1 - Pneumonia due to Pseudomonas Is this a current diagnosis for this admission?: Yes (5) Cardiac dysrhythmia Qualifiers: Arrhythmia type: unspecified cardiac arrhythmia Qualified Code(s): I49.9 - Cardiac arrhythmia, unspecified Is this a current diagnosis for this admission?: Yes (6) HTN (hypertension) Qualifiers: Hypertension type: essential hypertension Qualified Code(s): I10 - Essential (primary) hypertension Is this a current diagnosis for this admission?: Yes (7) HLD (hyperlipidemia) Qualifiers: Hyperlipidemia type: pure hypercholesterolemia Qualified Code(s): E78.00 - Pure hypercholesterolemia, unspecified Is this a current diagnosis for this admission?: Yes (8) Long-term current use of opiate analgesic Is this a current diagnosis for this admission?: Yes (9) Chronic pain syndrome Is this a current diagnosis for this admission?: Yes (10) Mixed anxiety and depressive disorder Is this a current diagnosis for this admission?: Yes (11) Yeast dermatitis Is this a current diagnosis for this admission?: Yes - Time Time Spent with patient: 25-34 minutes Medications reviewed and adjusted accordingly: Yes Anticipated discharge: Home with Homehealth Within: Other - Inpatient Certification Based on my medical assessment, after consideration of the patient's comorbidities, presenting symptoms, or acuity I expect that the services needed warrant INPATIENT care.: Yes I certify that my determination is in accordance with my understanding of Medicare's requirements for reasonable and necessary INPATIENT services [42 CFR 412.3e].: Yes Medical Necessity: Significant Comorbidiites Make Outpatient Treatment Too Risky, Need Close Monitoring Due to Risk of Patient Decompensation, Need For Continuous Telemetry Monitoring, Risk of Complication if Not Cared For in Hospital, Risk of Diagnosis Which Will Require Inpatient Eval/Care/Monitoring Post Hospital Care: D/C Street Commissioner Documentation - Plan Summary Plan Summary: Continue oral Dificid therapy and IV Meropenem coverage. D/C IV Solu Medrol. Obtain CBC with diff and BMP in AM. Continue all other current medication management.
[2018-05-10] MEDS: ZOLPIDEM TARTRATE 5 MG TABLET PO PRN (22:57)
[2018-05-10] MEDS: ALPRAZOLAM 0.5 MG TABLET PO PRN (22:57)
[2018-05-11] MEDS: BUSPIRONE HCL 10 MG TABLET PO SCH ×3 (05:30→21:48)
[2018-05-11 05:48] LABS: HEMATOCRIT 41.4 % (36.0-47.0); HEMOGLOBIN 13.1 g/dL (12.0-15.5); MEAN CORPUSCULAR HEMOGLOBIN 27.6 pg (27.0-33.4); MEAN CORPUSCULAR HGB CONC 31.6 g/dL (32.0-36.0); MEAN CORPUSCULAR VOLUME 87 fl (80-97); PLATELET COUNT 424 10^3/uL (150-450); RED BLOOD COUNT 4.75 10^6/uL (3.72-5.28); RED CELL DISTRIBUTION WIDTH 18.6 % (11.5-14.0); WHITE BLOOD COUNT 28.4 10^3/uL (4.0-10.5)
[2018-05-11 06:02] LABS: ANION GAP 7 (5-19); BLOOD UREA NITROGEN 30 mg/dL (7-20); CALCIUM 8.9 mg/dL (8.4-10.2); CARBON DIOXIDE 27 mmol/L (22-30); CHLORIDE 100 mmol/L (98-107); GLUCOSE 85 mg/dL (75-110); POTASSIUM 4.9 mmol/L (3.6-5.0)
[2018-05-11 06:10] LABS: ABSOLUTE LYMPHOCYTES# (MANUAL) 3.1 10^3/uL (0.5-4.7); ABSOLUTE MONOCYTES # (MANUAL) 0.6 10^3/uL (0.1-1.4); ABSOLUTE NEUTROPHILS# (MANUAL) 24.7 10^3/uL (1.7-8.2); BAND NEUTROPHILS % (MANUAL) 4 % (3-5); BASOPHILS % (MANUAL) 0 % (0-2); EOSINOPHILS % (MANUAL) 0 % (0-6); LYMPHOCYTES % (MANUAL) 11 % (13-45); MONOCYTES % (MANUAL) 2 % (3-13); SEGMENTED NEUTROPHILS % (MAN) 83 % (42-78); TOTAL CELLS COUNTED 100
[2018-05-11 06:11] LABS: ANISOCYTOSIS 2+; PLATELET COMMENT ADEQUATE; TOXIC VACUOLATION PRESENT
[2018-05-11] MEDS: OXYCODONE-ACETAMINOPHEN 5-325 MG TABLET PO PRN ×2 (07:07→16:41)
[2018-05-11] MEDS: OXYCODONE HCL IR 5 MG TABLET PO PRN ×2 (07:07→16:41)
[2018-05-11] MEDS: ROPINIROLE HCL 1 MG TABLET PO SCH ×3 (09:42→18:08)
[2018-05-11] MEDS: LACTOBACILLUS ACIDOPHILUS 250 MG TAB PO SCH ×2 (09:42→18:08)
[2018-05-11] MEDS: ALPRAZOLAM 0.5 MG TABLET PO PRN (09:42)
[2018-05-11] MEDS: CITALOPRAM HYDROBROMIDE 20 MG TABLET PO SCH (09:42)
[2018-05-11] MEDS: FIDAXOMICIN 200 MG TABLET PO SCH ×2 (09:42→21:48)
[2018-05-11] MEDS: ACETAZOLAMIDE 250 MG TABLET PO SCH ×2 (09:42→21:48)
[2018-05-11] MEDS: ENOXAPARIN SODIUM INJ 40 MG/0.4 ML DISP.SYRIN SUBCUT SCH (09:43)
[2018-05-11] MEDS: FLUTICASONE/UMECLIDIN/VILANTER 100-62.5-25 MCG/DOSE IH SCH (09:43)
[2018-05-11] MEDS: MEROPENEM 1 GM in NORMAL SALINE 50 ML IV SCH (09:43)
[2018-05-11] MEDS: NYSTATIN CREAM 15 GM TP SCH ×3 (09:43→18:10)
[2018-05-11] MEDS: LEVALBUTEROL HCL NEB 1.25 MG/3 ML AMPUL NEB PRN (10:42)
--- NOTE | 2018-05-11 18:04 | PDOC PROGRESS REPORT ---
Subjective Progress Note for:: 05/11/18 Subjective:: Patient reported improving diarrhea. No nausea, vomiting, or abdominal pain. No fever or chills. No chest pain. Satisfactory breathing on supplemental oxygen via nasal cannula and BiPAP support. Reason For Visit: DECOMPENSATED CHF WITH EXACERBATION,ACUTE ON Physical Exam Vital Signs: Temp Pulse Resp BP Pulse Ox 97.8 F 62 24 H 108/59 L 97 05/11/18 03:02 05/11/18 07:00 05/11/18 03:02 05/11/18 03:02 05/11/18 03:02 Intake & Output 05/10/18 05/11/18 05/12/18 06:59 06:59 06:59 Intake Total 2597 2125 Balance 2597 2125 Weight 51.1 kg 47.4 kg Physical Exam: General appearance: PRESENT: no acute distress Head exam: PRESENT: atraumatic, normocephalic Eye exam: PRESENT: conjunctiva pink ABSENT: pallor, scleral icterus Respiratory exam: PRESENT: decreased breath sounds - at lung bases Cardiovascular exam: PRESENT: RRR, +S1, +S2. ABSENT: diastolic murmur, rubs, systolic murmur GI/Abdominal exam: PRESENT: normal bowel sounds, soft. ABSENT: distended, guarding, mass, organomegaly, rebound, tenderness Extremities exam: ABSENT: pedal edema Neurological exam: PRESENT: alert, awake, oriented to person, oriented to place, oriented to time, oriented to situation, CN II-XII grossly intact. ABSENT: motor sensory deficit Psychiatric exam: PRESENT: appropriate affect, normal mood. ABSENT: homicidal ideation, suicidal ideation Skin exam: PRESENT: dry, warm, improving rash in breast skin folds Results Laboratory Results: 05/11/18 05:35 05/11/18 05:35 05/11/18 05/11/18 05:35 05:35 WBC 28.4 H RBC 4.75 Hgb 13.1 Hct 41.4 MCV 87 MCH 27.6 MCHC 31.6 L RDW 18.6 H Plt Count 424 Seg Neutrophils % Not Reportable Lymphocytes % Not Reportable Monocytes % Not Reportable Eosinophils % Not Reportable Basophils % Not Reportable Absolute Neutrophils Not Reportable Absolute Lymphocytes Not Reportable Absolute Monocytes Not Reportable Absolute Eosinophils Not Reportable Absolute Basophils Not Reportable Sodium 134.0 L Potassium 4.9 Chloride 100 Carbon Dioxide 27 Anion Gap 7 BUN 30 H Creatinine 0.76 Est GFR ( Amer) > 60 Est GFR (Non-Af Amer) > 60 Glucose 85 Calcium 8.9 05/01/18 17:46 Troponin I < 0.012 Impressions: Chest X-Ray 05/01/18 17:39 IMPRESSION: COPD. Atelectasis or early pneumonia left lower lobe. Assessment & Plan - Diagnosis (1) Chronic respiratory failure with hypoxia and hypercapnia Is this a current diagnosis for this admission?: Yes (2) Recurrent colitis due to Clostridium difficile Is this a current diagnosis for this admission?: Yes (3) E. coli UTI (urinary tract infection) Is this a current diagnosis for this admission?: Yes (4) Pseudomonas pneumonia Qualifiers: Laterality: left Lung location: lower lobe of lung Qualified Code(s): J15.1 - Pneumonia due to Pseudomonas Is this a current diagnosis for this admission?: Yes (5) Cardiac dysrhythmia Qualifiers: Arrhythmia type: unspecified cardiac arrhythmia Qualified Code(s): I49.9 - Cardiac arrhythmia, unspecified Is this a current diagnosis for this admission?: Yes (6) HTN (hypertension) Qualifiers: Hypertension type: essential hypertension Qualified Code(s): I10 - Essential (primary) hypertension Is this a current diagnosis for this admission?: Yes (7) HLD (hyperlipidemia) Qualifiers: Hyperlipidemia type: pure hypercholesterolemia Qualified Code(s): E78.00 - Pure hypercholesterolemia, unspecified Is this a current diagnosis for this admission?: Yes (8) Long-term current use of opiate analgesic Is this a current diagnosis for this admission?: Yes (9) Chronic pain syndrome Is this a current diagnosis for this admission?: Yes (10) Mixed anxiety and depressive disorder Is this a current diagnosis for this admission?: Yes (11) Yeast dermatitis Is this a current diagnosis for this admission?: Yes - Time Time Spent with patient: 25-34 minutes Medications reviewed and adjusted accordingly: Yes Anticipated discharge: Home with Homehealth Within: Other - Inpatient Certification Based on my medical assessment, after consideration of the patient's comorbidities, presenting symptoms, or acuity I expect that the services needed warrant INPATIENT care.: Yes I certify that my determination is in accordance with my understanding of Medicare's requirements for reasonable and necessary INPATIENT services [42 CFR 412.3e].: Yes Medical Necessity: Significant Comorbidiites Make Outpatient Treatment Too Risky, Need Close Monitoring Due to Risk of Patient Decompensation, Need For IV Fluids, Need For Continuous Telemetry Monitoring, Need for Nebulizer Therapy and Monitoring of Response, Need for IV Antibiotics, Risk of Complication if Not Cared For in Hospital, Risk of Diagnosis Which Will Require Inpatient Eval/Care/Monitoring Post Hospital Care: D/C Artist Color Separation Documentation - Plan Summary Plan Summary: Complete IV Meropenem tonight. D/C IV Solu Medrol. Start on Trelegy 1 puff po daily. Continue oral Dificid therapy. Start on IV N/S at 100 ml/hour. Obtain BMP and CBC with diff in am.
[2018-05-11] MEDS: MONTELUKAST SODIUM 10 MG TABLET PO SCH (18:08)
[2018-05-11] MEDS: NORMAL SALINE 1000 ML 1,000 ML IV PRN (19:35)
[2018-05-12] MEDS: ZOLPIDEM TARTRATE 5 MG TABLET PO PRN (00:48)
[2018-05-12] MEDS: ALPRAZOLAM 0.5 MG TABLET PO PRN ×2 (00:48→09:51)
[2018-05-12] MEDS: OXYCODONE-ACETAMINOPHEN 5-325 MG TABLET PO PRN ×2 (00:48→08:39)
[2018-05-12] MEDS: OXYCODONE HCL IR 5 MG TABLET PO PRN ×2 (00:49→08:39)
[2018-05-12] MEDS: BUSPIRONE HCL 10 MG TABLET PO SCH ×2 (05:41→15:12)
[2018-05-12] MEDS: NORMAL SALINE 1000 ML 1,000 ML IV PRN (05:41)
[2018-05-12 06:16] LABS: HEMATOCRIT 37.8 % (36.0-47.0); MEAN CORPUSCULAR HGB CONC 31.8 g/dL (32.0-36.0); MEAN CORPUSCULAR VOLUME 88 fl (80-97); PLATELET COUNT 395 10^3/uL (150-450); RED BLOOD COUNT 4.29 10^6/uL (3.72-5.28); RED CELL DISTRIBUTION WIDTH 19.1 % (11.5-14.0); WHITE BLOOD COUNT 17.9 10^3/uL (4.0-10.5)
[2018-05-12 06:31] LABS: BLOOD UREA NITROGEN 35 mg/dL (7-20); CALCIUM 8.4 mg/dL (8.4-10.2); CARBON DIOXIDE 25 mmol/L (22-30); CHLORIDE 106 mmol/L (98-107); GLUCOSE 82 mg/dL (75-110); POTASSIUM 4.5 mmol/L (3.6-5.0); SODIUM 135.4 mmol/L (137-145)
[2018-05-12 06:40] LABS: ANION GAP 3 (5-19)
[2018-05-12 07:00] LABS: ABSOLUTE LYMPHOCYTES# (MANUAL) 2.7 10^3/uL (0.5-4.7); ABSOLUTE MONOCYTES # (MANUAL) 2.7 10^3/uL (0.1-1.4); ABSOLUTE NEUTROPHILS# (MANUAL) 11.8 10^3/uL (1.7-8.2); BAND NEUTROPHILS % (MANUAL) 1 % (3-5); BASOPHILS % (MANUAL) 0 % (0-2); EOSINOPHILS % (MANUAL) 4 % (0-6); LYMPHOCYTES % (MANUAL) 12 % (13-45); MONOCYTES % (MANUAL) 15 % (3-13); SEGMENTED NEUTROPHILS % (MAN) 65 % (42-78); TOTAL CELLS COUNTED 100
[2018-05-12 07:02] LABS: ANISOCYTOSIS SLIGHT; HYPOCHROMASIA 2+; POLYCHROMASIA SLIGHT
[2018-05-12 07:03] LABS: PLATELET COMMENT ADEQUATE; PLATELET LARGE PRESENT
[2018-05-12] MEDS: ROPINIROLE HCL 1 MG TABLET PO SCH ×2 (09:51→15:13)
[2018-05-12] MEDS: LACTOBACILLUS ACIDOPHILUS 250 MG TAB PO SCH (09:51)
[2018-05-12] MEDS: ACETAZOLAMIDE 250 MG TABLET PO SCH (09:51)
[2018-05-12] MEDS: CITALOPRAM HYDROBROMIDE 20 MG TABLET PO SCH (09:51)
[2018-05-12] MEDS: ENOXAPARIN SODIUM INJ 40 MG/0.4 ML DISP.SYRIN SUBCUT SCH (09:51)
[2018-05-12] MEDS: NYSTATIN CREAM 15 GM TP SCH ×2 (09:51→15:13)
[2018-05-12] MEDS: FLUTICASONE/UMECLIDIN/VILANTER 100-62.5-25 MCG/DOSE IH SCH (09:52)
--- NOTE | 2018-05-12 16:49 | PDOC DISCHARGE SUMMARY ---
General - Admit/Disc Date/PCP Admission Date/Primary Care Provider: 05/01/18 20:05 SARITA CASTILLO Discharge Date: 05/12/18 - Discharge Diagnosis (1) Chronic respiratory failure with hypoxia and hypercapnia Is this a current diagnosis for this admission?: Yes (2) Recurrent colitis due to Clostridium difficile Is this a current diagnosis for this admission?: Yes (3) E. coli UTI (urinary tract infection) Is this a current diagnosis for this admission?: Yes (4) Pseudomonas pneumonia Is this a current diagnosis for this admission?: Yes (5) Cardiac dysrhythmia Is this a current diagnosis for this admission?: Yes (6) HTN (hypertension) Is this a current diagnosis for this admission?: Yes (7) HLD (hyperlipidemia) Is this a current diagnosis for this admission?: Yes (8) Long-term current use of opiate analgesic Is this a current diagnosis for this admission?: Yes (9) Chronic pain syndrome Is this a current diagnosis for this admission?: Yes (10) Mixed anxiety and depressive disorder Is this a current diagnosis for this admission?: Yes (11) Yeast dermatitis Is this a current diagnosis for this admission?: Yes - Additional Information Resuscitation Status: Full Code Prescriptions: Lactobacillus Acidophilus [Bacid 250 mg Tablet] 500 mg PO BID #60 tab Nystatin [Mycostatin Cream 15 gm] 1 applic TP TID #1 tube Oxycodone HCl/Acetaminophen [Percocet 7.5-325 mg Tablet] 1 tab PO Q8HP PRN #21 tablet PRN Reason: For Pain Home Medications: Acetazolamide [Diamox 250 mg Tab] 250 mg PO Q12 05/01/18 Alprazolam [Xanax 0.5 mg Tablet] 0.5 mg PO Q8HP PRN 05/01/18 Buspirone HCl [Buspar 15 mg Tablet] 7.5 mg PO Q8 05/01/18 Citalopram Hydrobromide [Celexa 40 mg Tablet] 40 mg PO DAILY 05/01/18 Fluticasone/Umeclidin/Vilanter [Trelegy 100-62.5-25 Mcg Ellipta 14 Dose/Dpi] 1 puff IH DAILY 05/01/18 Ipratropium/Albuterol Sulfate [Combivent Respimat 4 gm Mdi] 1 puff IH Q4HP PRN 05/01/18 Montelukast Sodium [Singulair 10 mg Tablet] 10 mg PO QPM 05/01/18 Ropinirole HCl [Requip] 1 mg PO TID 05/01/18 Zolpidem Tartrate [Ambien 5 mg Tablet] 5 mg PO HSP PRN 05/01/18 Lactobacillus Acidophilus [Bacid 250 mg Tablet] 500 mg PO BID #60 tab 05/12/18 Nystatin [Mycostatin Cream 15 gm] 1 applic TP TID #1 tube 05/12/18 Oxycodone HCl/Acetaminophen [Percocet 7.5-325 mg Tablet] 1 tab PO Q8HP PRN #21 tablet 05/12/18 History of Present Illness Patient complains of: Hypoxemia, Tachycardia History of Present Illness: SUSAN BINGHAM is a 77 year old female patient known to my practice who was referred to the ED by Dr. Whitaker, veterinarian small animal, for further evaluation due to episode of hypoxemia and tachycardia during her initial office consultation visit on the 05/01/2018. It reported that her heart rate was in the 130-140's with oxygen saturation at 88% while on 3L/min supplemental oxygen via nasal cannula. Patient and daughter reported persistent exertional dyspnea even on supplemental oxygen since her discharged home late last month following hospitalization for C. dificile colitis and exacerbated COPD. Patient claimed co mpliance with BiPAP usage at home while sleeping. she denied any fever but always felt cold. She reported associated palpitation, persistent productive coughing, use of her nebulizer machine and medication more than usual. There is persistent generalized weakness, fatigue, poor appetite and oral intake. Her Ed evaluation was significant for persistent hypoxemia, tachycardia, and leukocytosis with concern for possible pneumonia as per her chest X ray unofficial findings. She was advised hospitalization for further evaluation ad management. Her morbidities include C. 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 Hospital Course Hospital Course: Patient was managed as case of acute on chronic respiratory failure with need for supplemental oxygen and BiPAP support. Her chest X ray did suggest COPD with atelectasis versus early left lower lobe pneumonia. Her sputum culture revealed psuedomonas areuginosa and staphylococcus aureus , both sensitive to Meropenem. Her urine culture revealed E.Coli sensitive to Meropenem. Her stool C. difficle that was completed due to onset of diarrhea revealed positive status and she was managed with oral Dificid 200 mg po bid for total 10 days. Her severe leukocytosis is currently on downward trend. She denied any fever or chills. No chest pain or difficulty with breathing. No nausea, vomiting or abdominal pain. Her stool has been fairly formed. She is currently on Bacid probiotic and she will be discharged home on same 500mg p.o bid. 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 She was treated for skin yeast infection due to rash beneath her breast tissue fold bilaterally. I did emphasized medication ad lifestyle modification to patient during this hospital discharge visit. She will follow up in the office as instructed upon discharge. Physical Exam Vital Signs: Temp Pulse Resp BP Pulse Ox 97.5 F 76 18 106/61 95 05/12/18 07:15 05/12/18 14:00 05/12/18 07:15 05/12/18 07:15 05/12/18 09:05 Intake & Output 05/11/18 05/12/18 05/13/18 06:59 06:59 06:59 Intake Total 2125 2252 972 Balance 2125 2252 972 Weight 47.4 kg 48 kg Physical Exam: General appearance: PRESENT: no acute distress, Remain on supplemental oxygen via nasal cannula at 2L/min Head exam: PRESENT: atraumatic, normocephalic Eye exam: PRESENT: conjunctiva pink ABSENT: pallor, scleral icterus Ear exam: PRESENT: normal external ear exam Mouth exam: PRESENT: moist Respiratory exam: PRESENT: decreased breath sounds - at lung bases Cardiovascular exam: PRESENT: RRR, +S1, +S2. ABSENT: diastolic murmur, rubs, systolic murmur GI/Abdominal exam: PRESENT: normal bowel sounds, soft. ABSENT: distended, guarding, mass, organomegaly, rebound, tenderness Extremities exam: ABSENT: pedal edema Neurological exam: PRESENT: alert, awake, oriented to person, oriented to place, oriented to time, oriented to situation, CN II-XII grossly intact. ABSENT: motor sensory deficit Psychiatric exam: PRESENT: appropriate affect, normal mood. ABSENT: homicidal ideation, suicidal ideation Skin exam: PRESENT: dry, warm, improving rash in the breast fold region bilaterally Results Laboratory Results: 05/12/18 05:48 05/12/18 05:48 05/12/18 05/12/18 05:48 05:48 WBC 17.9 H RBC 4.29 Hgb 12.0 Hct 37.8 MCV 88 MCH 28.0 MCHC 31.8 L RDW 19.1 H Plt Count 395 Seg Neutrophils % Not Reportable Lymphocytes % Not Reportable Monocytes % Not Reportable Eosinophils % Not Reportable Basophils % Not Reportable Absolute Neutrophils Not Reportable Absolute Lymphocytes Not Reportable Absolute Monocytes Not Reportable Absolute Eosinophils Not Reportable Absolute Basophils Not Reportable Sodium 135.4 L Potassium 4.5 Chloride 106 Carbon Dioxide 25 Anion Gap 3 L BUN 35 H Creatinine 0.93 Est GFR ( Amer) > 60 Est GFR (Non-Af Amer) 59 L Glucose 82 Calcium 8.4 05/01/18 17:46 Troponin I < 0.012 Impressions: Chest X-Ray 05/01/18 17:39 IMPRESSION: COPD. Atelectasis or early pneumonia left lower lobe. Qualifiers - * PATIENT BEING DISCHARGED WITH ANY OF THE FOLLOWING DIAGNOSIS: No Plan Discharge Plan: Discharge home today. Follow up in the office as instructed upon discharge.
[2018-05-12 16:56] VITALS: BP 137/54
== END 2018-05-12 18:45 | disposition home health service (06) | DRG 189 ==
LOC: ER 16:47 → EH 20:05 → 3W 23:13
PROVIDERS: ADMIT Internal Medicine Geriatric Medicine; ATTEND Internal Medicine Geriatric Medicine
PROC: 5A09357 Assistance with Respiratory Ventilation, Less than 24 Consecutive Hours, Continuous Positive Airway Pressure (ICD-10-PCS; principal; 2018-05-10)
PROC: 3E0F3GC Introduction of Other Therapeutic Substance into Respiratory Tract, Percutaneous Approach (ICD-10-PCS; 2018-05-10)
DX: J96.12 Chronic respiratory failure with hypercapnia (principal); J15.1 Pneumonia due to Pseudomonas; A04.71 Enterocolitis due to Clostridium difficile, recurrent; E46 Unspecified protein-calorie malnutrition; K57.92 Diverticulitis of intestine, part unspecified, without perforation or abscess without bleeding; N39.0 Urinary tract infection, site not specified; Z68.1 Body mass index [BMI] 19.9 or less, adult; Z99.81 Dependence on supplemental oxygen; J44.9 Chronic obstructive pulmonary disease, unspecified; B37.2 Candidiasis of skin and nail; J96.11 Chronic respiratory failure with hypoxia; I49.9 Cardiac arrhythmia, unspecified; I10 Essential (primary) hypertension; E78.00 Pure hypercholesterolemia, unspecified; G89.4 Chronic pain syndrome; F41.8 Other specified anxiety disorders; B96.20 Unspecified Escherichia coli [E. coli] as the cause of diseases classified elsewhere; I45.6 Pre-excitation syndrome; G47.30 Sleep apnea, unspecified; K21.9 Gastro-esophageal reflux disease without esophagitis; M19.90 Unspecified osteoarthritis, unspecified site; Z96.642 Presence of left artificial hip joint; Z79.891 Long term (current) use of opiate analgesic; Z88.3 Allergy status to other anti-infective agents; Z86.711 Personal history of pulmonary embolism; Z87.01 Personal history of pneumonia (recurrent); Z86.14 Personal history of Methicillin resistant Staphylococcus aureus infection; Z95.0 Presence of cardiac pacemaker; Z79.51 Long term (current) use of inhaled steroids; Z87.891 Personal history of nicotine dependence
CPT/HCPCS: 36415; 71045; 80048; 80053; 81001; 82803; 83605; 84484; 85025; 85610; 87040; 87070; 87077; 87086; 87088; 87186; 87205; 87493; 93005; 93010; 94660; 96361; 96365; 99285; J0696; J1335; J1642; J1650; J2185; J2920; J2930; J3370; J3490; J7030; J7060

== ENCOUNTER 2018-05-31 16:59 | Inpatient (IN) | payer MEDICARE, OTHER ==
[2018-05-31] MEDS ORDERED: ALBUTEROL SULFATE 0.083% NEB 2.5 MG/3 ML AMPUL NEB ONE (17:17)
[2018-05-31] MEDS ORDERED: ALPRAZOLAM 0.5 MG TABLET PO ONE (17:18)
--- NOTE | 2018-05-31 17:23 | ER Document Report ---
ED General - General Stated Complaint: SHORT OF BREATH Time Seen by Provider: 05/31/18 17:05 Primary Care Provider: SARITA CASTILLO MD [Primary Care Provider] - Follow up as needed TRAVEL OUTSIDE OF THE [place] IN LAST 30 DAYS: No - HPI Notes: Patient is a 77-year-old female that presents to the emergency department for chief complaint of shortness of breath. Patient was sent by EMS from Dr. Whitaker's office for shortness of breath. Patient is a poor historian which limits HPI. She denies feeling short of breath currently but states she felt short of breath earlier. She is not sure if she is on any steroids but does believe she does breathing treatments at home. She denies any current shortness of breath. 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 She is not sure if she has congestive heart failure. She denies feeling lightheaded, fevers, nausea, abdominal pain, and cough with congestion. Past Medical History: CHF, COPD, WPW Past Surgical History: Reviewed in chart Social History: Reviewed in chart Family History: Reviewed and noncontributory for presenting illness Allergies: Reviewed, see documented allergy list. REVIEW OF SYSTEMS: CONSTITUTIONAL : No fever No chills No diaphoresis No recent illness EENT: No vision changes No congestion No sore throat CARDIOVASCULAR: No chest pain No palpitations RESPIRATORY: shortness of breath No cough No difficulty breathing GASTROINTESTINAL: No abdominal pain No nausea No vomiting No diarrhea GENITOURINARY: No dysuria No hematuria No difficulty urinating MUSCULOSKELETAL: No back pain No leg pain No arm pain SKIN: No rashes No lesions LYMPHATIC: No swollen, enlarged glands. NEUROLOGICAL: No lightheadedness No headache No weakness No paresthesias PSYCHIATRIC: No anxiety No depression PHYSICAL EXAMINATION: Vital signs reviewed, nursing noted reviewed. GENERAL: Well-appearing, well-nourished and in no acute distress. HEAD: Atraumatic, normocephalic. EYES: Eyes appear normal, extraocular movements intact, sclera anicteric, conjunctiva are normal. ENT: nares patent, oropharynx clear without exudates. Moist mucous membranes. NECK: Normal range of motion, supple without lymphadenopathy LUNGS: Tachypneic without rhonchi. Mild accessory muscle use. Lung sounds coarse to auscultation with basilar rhonchi and expiratory wheezing. HEART: Tachycardic rate and regular rhythm without murmurs ABDOMEN: Soft, nontender, normoactive bowel sounds. No rebound, guarding, or rigidity. No masses appreciated. EXTREMITIES: Nontender, good range of motion, no pitting or edema. NEUROLOGICAL: No focal neurological deficits. Moves all extremities spontaneously Motor and sensory grossly intact on exam. PSYCH: Normal mood, normal affect. SKIN: Warm, Dry, normal turgor, no rashes or lesions noted on exposed skin - Related Data Allergies/Adverse Reactions: erythromycin base [Erythromycin Base] Allergy (Unknown, Verified 05/31/18 17:23) Past Medical History - Social History Smoking Status: Former Smoker Family History: CAD - This is in not immediate family members., DM, Hyperlipidemia, Hypertension - Past Medical History Cardiac Medical History: Reports: Hx Hypercholesterolemia, Hx Hypertension, Hx Pulmonary Embolism Denies: Hx Coronary Artery Disease, Hx Heart Attack Pulmonary Medical History: Reports: Hx Asthma, Hx Bronchitis, Hx COPD, Hx Pneumonia, Hx Respiratory Failure, Hx Sleep Apnea Neurological Medical History: Denies: Hx Cerebrovascular Accident, Hx Seizures Endocrine Medical History: Denies: Hx Graves' Disease Renal/ Medical History: Reports: Hx Kidney Stones - 20 year ago. Denies: Hx Ovarian Cysts, Hx Peritoneal Dialysis, Hx Pelvic Inflammatory Disease Malignancy Medical History: GI Medical History: Reports: Hx Diverticulitis, Hx Gastroesophageal Reflux Disease, Hx Ulcer. Denies: Hx Irritable Bowel, Hx Liver Failure, Hx Panc reatitis Musculoskeletal Medical History: Denies Hx Arthritis, Denies Hx Multiple Sclerosis, Denies Hx Muscular Dystrophy Skin Medical History: Reports Hx MRSA Psychiatric Medical History: Reports: Hx Depression Denies: Hx Schizophrenia Traumatic Medical History: Denies: Hx Fractures, Hx Gunshot Wound Infectious Medical History: Denies: Hx HIV Past Surgical History: Reports: Hx Bowel Surgery - Old colostomy from a tear intestines resectioned, Hx Cardiac Surgery - pacemaker, Hx Colostomy - with reversal, 6 years ago, Hx Hysterectomy, Hx Orthopedic Surgery - left hip replacement 11/04/2014, RIGHT KNEE CYST REMOVAL, Hx Pacemaker - Immunizations Immunizations up to date: Yes Hx Diphtheria, Pertussis, Tetanus Vaccination: No Hx Pneumococcal Vaccination: 06/04/11 Physical Exam - Vital signs Vitals: Temp 99.1 F 05/31/18 17:01 Course - Re-evaluation Re-evalutation: 05/31/18 19:28 Vitals reviewed. Nursing notes reviewed. Patient presented tachycardic but blood pressure was initially stable. Patient received Solu-Medrol and DuoNeb by EMS prior to arrival. Her tachycardia persisted despite 500 mL fluid bolus. I did not aggressively give patient fluids because of her history of CHF and complaint of shortness of breath with rhonchi. Patient's blood pressure then dropped to 82 systolic with a rate of 144. I discussed her case with Dr. Montero who recommends amiodarone. Patient was given 150 mg amiodarone bolus and started on amiodarone infusion. This has greatly improved her heart rate. Current heart rate is 118 and blood pressure 107/62. Dr. Montero does request patient be transferred to a facility with an EP line fisher. I did discuss her care with Dr. Castillo who is her PCP and is in agreement with this plan of care. I have reached out to [facility] who states that they are currently on 24-hour deferment and recommend contacting a different facility. I have reached out to [facility] and I am currently awaiting a call back. Patient is improved, stable for transfer and in agreement with this plan of care Laboratory 05/31/18 05/31/18 05/31/18 16:13 16:13 16:13 WBC 15.4 H RBC 4.51 Hgb 12.8 Hct 39.8 MCV 88 MCH 28.4 MCHC 32.2 RDW 19.2 H Plt Count 515 H Seg Neutrophils % 46.4 Lymphocytes % 38.8 Monocytes % 12.7 Eosinophils % 1.8 Basophils % 0.3 Absolute Neutrophils 7.1 Absolute Lymphocytes 6.0 H Absolute Monocytes 2.0 H Absolute Eosinophils 0.3 Absolute Basophils 0.0 PT 13.8 INR 1.01 VBG pH VBG pCO2 VBG HCO3 VBG Base Excess Sodium 138.5 Potassium 4.2 Chloride 112 H Carbon Dioxide 19 L Anion Gap 8 BUN 12 Creatinine 1.07 Est GFR ( Amer) > 60 Est GFR (Non-Af Amer) 50 L Glucose 116 H Lactic Acid Calcium 9.6 Total Bilirubin 0.2 Direct Bilirubin 0.2 Neonat Total Bilirubin Not Reportable Neonat Direct Bilirubin Not Reportable Neonat Indirect Bili Not Reportable AST 20 ALT 18 Alkaline Phosphatase 93 Total Protein 6.8 Albumin 3.4 L 05/31/18 05/31/18 16:13 16:13 WBC RBC Hgb Hct MCV MCH MCHC RDW Plt Count Seg Neutrophils % Lymphocytes % Monocytes % Eosinophils % Basophils % Absolute Neutrophils Absolute Lymphocytes Absolute Monocytes Absolute Eosinophils Absolute Basophils PT INR VBG pH 7.32 VBG pCO2 43.9 VBG HCO3 22.3 VBG Base Excess -3.7 Sodium Potassium Chloride Carbon Dioxide Anion Gap BUN Creatinine Est GFR ( Amer) Est GFR (Non-Af Amer) Glucose Lactic Acid 0.8 Calcium Total Bilirubin Direct Bilirubin Neonat Total Bilirubin Neonat Direct Bilirubin Neonat Indirect Bili AST ALT Alkaline Phosphatase Total Protein Albumin Chest X-Ray 05/31/18 17:01 IMPRESSION: Similar interstitial markings in the lung bases, left greater than right. No consolidation or pleural effusion. 05/31/18 19:32 05/31/18 19:49 Patient's care was discussed with Dr. Hernandez at [facility]. He has accepted patient for transfer but states that there is a 24-hour wait for a bed placement currently. We discussed her case with Dr. Castillo who agrees to admit her to the hospital as long as Dr. Montero will follow in assist with management. Care was again discussed with Dr. Montero who agrees to manage this patient while she is waiting for a bed at [facility]. Patient's family is in agreement with this plan of care. - Vital Signs Vital signs: Temp Pulse Resp BP Pulse Ox 99.1 F 29 H 117/67 95 05/31/18 17:01 05/31/18 18:14 05/31/18 18:14 05/31/18 18:14 - Laboratory Result Diagrams: 05/31/18 16:13 05/31/18 16:13 Laboratory results interpreted by me: 05/31/18 05/31/18 16:13 16:13 WBC 15.4 H RDW 19.2 H Plt Count 515 H Absolute Lymphocytes 6.0 H Absolute Monocytes 2.0 H Chloride 112 H Carbon Dioxide 19 L Est GFR (Non-Af Amer) 50 L Glucose 116 H Albumin 3.4 L - EKG Interpretation by Me Additional EKG results interpreted by me: 05/31/18 17:21 Interpreted by myself 1710: Sinus tachycardia, rate 125, PVCs, LAFB, WPW Critical Care Note - Critical Care Note Total time excluding time spent on procedures (mins): 90 Comments: Critical care time 90 exclusive from separate billable procedures for a patient requiring complex medical decision making, and high potential for clinical deterioration. Time spent obtaining history from patient or surrogate, discussions with consultants, development of treatment plan with patient or surrogate, evaluation of patient's response to treatment, examination of patient, ordering and performing treatments and interventions, ordering and review of laboratory studies, re-evaluation of patient's condition, ordering and review of radiographic studies and review of old charts Discharge - Discharge Clinical Impression: WPW (Hkrvc-Cvdtchlmo-Xcyot syndrome), Tachyarrhythmia, Shortness of breath, COPD exacerbation Condition: Stable Disposition: ADMITTED INPATIENT Admitting Provider: Renetta Unit Admitted: ICU Referrals: SARITA CASTILLO MD [Primary Care Provider] - Follow up as needed
[2018-05-31 17:35] LABS: ABSOLUTE EOSINOPHILS # (AUTO) 0.3 10^3/uL (0.0-0.6); ABSOLUTE NEUT (AUTO) 7.1 10^3/uL (1.7-8.2); BASOPHILS % (AUTO) 0.3 % (0-2); EOSINOPHILS % (AUTO) 1.8 % (0-6); HEMATOCRIT 39.8 % (36.0-47.0); HEMOGLOBIN 12.8 g/dL (12.0-15.5); LYMPHOCYTES % (AUTO) 38.8 % (13-45); MEAN CORPUSCULAR HEMOGLOBIN 28.4 pg (27.0-33.4); MEAN CORPUSCULAR HGB CONC 32.2 g/dL (32.0-36.0); MEAN CORPUSCULAR VOLUME 88 fl (80-97); MONOCYTES % (AUTO) 12.7 % (3-13); PLATELET COUNT 515 10^3/uL (150-450); RED BLOOD COUNT 4.51 10^6/uL (3.72-5.28); RED CELL DISTRIBUTION WIDTH 19.2 % (11.5-14.0); SEGMENTED NEUTROPHILS % (AUTO) 46.4 % (42-78); TOTAL CELLS COUNTED % (AUTO) 100 %; WHITE BLOOD COUNT 15.4 10^3/uL (4.0-10.5)
[2018-05-31 17:36] LABS: VENOUS BLOOD BASE EXCESS -3.7 mmol/L; VENOUS BLOOD HCO3 22.3 mmol/L (20-32); VENOUS BLOOD PCO2 43.9 mmHg (35-63); VENOUS BLOOD PH 7.32 (7.30-7.42)
[2018-05-31 17:38] LABS: INTERNATIONAL RATION (INR) 1.01; PROTHROMBIN TIME 13.8 SEC (11.4-15.4)
[2018-05-31 17:56] LABS: ALANINE AMINOTRANSFERASE 18 U/L (9-52); ALBUMIN 3.4 g/dL (3.5-5.0); ALKALINE PHOSPHATASE 93 U/L (38-126); ANION GAP 8 (5-19); ASPARTATE AMINO TRANSFERASE 20 U/L (14-36); BILIRUBIN,DIRECT 0.2 mg/dL (0.0-0.4); BILIRUBIN,TOTAL 0.2 mg/dL (0.2-1.3); BLOOD UREA NITROGEN 12 mg/dL (7-20); CALCIUM 9.6 mg/dL (8.4-10.2); CARBON DIOXIDE 19 mmol/L (22-30); CHLORIDE 112 mmol/L (98-107); GLUCOSE 116 mg/dL (75-110); POTASSIUM 4.2 mmol/L (3.6-5.0); SODIUM 138.5 mmol/L (137-145); TOTAL PROTEIN 6.8 g/dL (6.3-8.2)
--- NOTE | 2018-05-31 17:57 | RADIOLOGY REPORT (SQ) ---
EXAM DESCRIPTION: CHEST SINGLE VIEW COMPLETED DATE/TIME: 05/31/2018 5:38 pm REASON FOR STUDY: BED 18 SEPSIS PROTOCOL COMPARISON: 05/01/2018 TECHNIQUE: Single frontal radiographic view of the chest acquired. NUMBER OF VIEWS: One view. LIMITATIONS: None. FINDINGS: LUNGS AND PLEURA: No pneumothorax. Similar interstitial markings in the lung bases, left greater than right. No consolidation or pleural effusion. MEDIASTINUM AND HILAR STRUCTURES: Stable. HEART AND VASCULAR STRUCTURES: Stable. BONES: No acute findings. HARDWARE: Right chest port. Cardiac pacer. OTHER: No other significant finding. IMPRESSION: Similar interstitial markings in the lung bases, left greater than right. No consolidat ion or pleural effusion. TECHNICAL DOCUMENTATION: JOB ID: [id number] [place]-72 2010 [employer]- All Rights Reserved Reading location - IP/workstation name: [employer]
[2018-05-31] MEDS ORDERED: AMIODARONE HCL 150 MG in DEXTROSE 5%-WATER 100 ML IV ONE (18:14)
--- NOTE | 2018-05-31 18:30 | EKG REPORT ---
SEVERITY:- ABNORMAL ECG - SINUS TACHYCARDIA VENTRICULAR PREMATURE COMPLEX LEFT ANTERIOR FASCICULAR BLOCK : Confirmed by: Ramakrishna Gerber MD 31-May-2018 18:30:07
[2018-05-31] MEDS ORDERED: DEXTROSE 5%-WATER 500 ML with AMIODARONE HCL 900 MG IV PRN ×2 (19:19)
[2018-05-31 20:07] LABS: APPEARANCE,URINE CLOUDY; BILIRUBIN,URINE NEGATIVE (NEGATIVE); GLUCOSE, URINE NEGATIVE (NEGATIVE); KETONES,URINE NEGATIVE (NEGATIVE); LEUKOCYTE ESTERASE,URINE TRACE (NEGATIVE); NITRITE,URINE NEGATIVE (NEGATIVE); PROTEIN,URINE NEGATIVE (NEGATIVE); URINE SPECIFIC GRAVITY 1.016; UROBILINOGEN,URINE NEGATIVE mg/dL (<2.0)
[2018-05-31 20:09] LABS: COLOR,URINE DARK YELLOW
[2018-05-31] MEDS: OXYCODONE HCL IR 5 MG TABLET PO PRN (22:39)
[2018-06-01] MEDS ORDERED: (PENDING PHARMACY ID) (Naloxone Hcl [Narcan] 4 MG) NASL PRN (02:03)
[2018-06-01] MEDS: ZOLPIDEM TARTRATE 5 MG TABLET PO PRN ×2 (03:18→22:29)
[2018-06-01] MEDS: LEVALBUTEROL HCL NEB 1.25 MG/3 ML AMPUL NEB SCH ×6 (03:54→23:38)
[2018-06-01] MEDS: ALPRAZOLAM 0.5 MG TABLET PO PRN ×2 (03:54→22:29)
[2018-06-01] MEDS: METHYLPREDNISOLONE INJ 125 MG/2 ML SDV IV SCH ×3 (05:21→21:23)
[2018-06-01] MEDS: ROPINIROLE HCL 1 MG TABLET PO SCH ×3 (05:22→21:22)
[2018-06-01] MEDS: OXYCODONE-ACETAMINOPHEN 5-325 MG TABLET PO SCH ×3 (05:22→21:21)
[2018-06-01] MEDS: OXYCODONE HCL IR 5 MG TABLET PO SCH ×3 (05:23→21:23)
[2018-06-01] MEDS: ROFLUMILAST 500 MCG TABLET PO SCH ×3 (05:56→21:22)
[2018-06-01] MEDS ORDERED: (PENDING PHARMACY ID) (Oxycodone Hcl/Acetaminophen [Endocet 7.5-325 Mg Tablet] 1 TAB) PO SCH (06:00)
[2018-06-01] MEDS ORDERED: (PENDING PHARMACY ID) (Buspirone Hcl [Buspar 15 Mg Tablet] 7.5 MG) PO SCH (06:00)
--- NOTE | 2018-06-01 08:08 | PDOC H&P ---
History of Present Illness Admission Date/PCP: 05/31/18 19:57 SARITA ANNA Patient complains of: Difficulty with breathing History of Present Illness: SUSAN BINGHAM is a 77 year old female patient known to my practice who was transferred to the ED from her legal examiner Dr Whitaker's office following her follow up office visit. There was concern for significant tachycardia and dyspnea. 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 She reported intermittent episodes of palpitation even at rest. She continue to experience intermittent episodes of COPD associated chest congestion and coughing. She denied any associated chest pain, dizziness, lightheadedness, or diaphoresis. No associated fever or chills but admitted to always feeling cold. No abdominal pain, diarrhea, nausea or vomiting. She reported compliance with her medications and usage of supplemental oxygen. There was concern for possible need for EP cardiology intervention upon arrival and evaluation in the ED. There was 24 hours waiting list at [facility] and [facility] at the time and patient did agree to stay at our facility for further care. There was consultation with Dr. Kulkarni, legal examiner, who has longstanding knowledge about patient's problem and he is opinion that she can be managed locally and no need for EP cardiology intervention at this time. She is in agreement to continue her care locally and she will be admitted for exacerbated COPD. 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 difficile colitis, mixed anxiety wit depression, osteoarthritis with chronic pain syndrome and chronic opioid dependency. Past Medical History Cardiac Medical History: Reports: Hyperlipidema, Hypertension, Pulmonary Embolism Denies: Coronary Artery Disease, Myocardial Infarction Pulmonary Medical History: Reports: Asthma, Bronchitis, Chronic Obstructive Pulmonary Disease (COPD), Pneumonia, Respiratory Failure, Sleep Apnea Neurological Medical History: Denies: Seizures Endocrine Medical History: Renal/ Medical History: Malignancy Medical History: GI Medical History: Reports: Diverticulitis, Gastroesophageal Reflux Disease Musculoskeltal Medical History: Denies: Arthritis Psychiatric Medical History: Reports: Depression Traumatic Medical History: Denies: Gunshot Wound Hematology: Denies: Anemia Infectious Medical History: Denies: HIV Past Surgical History Past Surgical History: Reports: Colostomy - with reversal, 6 years ago, Hysterectomy, Orthopedic Surgery - left hip replacement 11/04/2014, RIGHT KNEE CYST REMOVAL, Pacemaker Social History Smoking Status: Former Smoker Frequency of Alcohol Use: None Hx Recreational Drug Use: No Drugs: None Hx Prescription Drug Abuse: No - Advance Directive Resuscitation Status: Full Code Family History Family History: CAD - This is in not immediate family members., DM, Hyperlipidemia, Hypertension Parental Family History Reviewed: Yes Children Family History Reviewed: Yes Sibling(s) Family History Reviewed.: Yes Medication/Allergy Home Medications: Acetazolamide [Diamox 250 mg Tab] 250 mg PO Q12 05/31/18 Albuterol Sulfate [Ventolin 0.083% Neb 2.5 mg/3 mL Ampul] 3 ml NEB Q6HP PRN 05/31/18 Alprazolam [Xanax 0.5 mg Tablet] 0.5 mg PO Q8HP PRN 05/31/18 Buspirone HCl [Buspar 15 mg Tablet] 7.5 mg PO Q8 05/31/18 Citalopram Hydrobromide [Celexa 40 mg Tablet] 40 mg PO DAILY 05/31/18 Fluticasone/Umeclidin/Vilanter [Trelegy 100-62.5-25 Mcg Ellipta 14 Dose/Dpi] 1 puff IH DAILY 05/31/18 Ipratropium/Albuterol Sulfate [Combivent Respimat 4 gm Mdi] 1 puff IH Q4HP PRN 05/31/18 Lactobacillus Acidophilus [Acidophilus Lactobacilli] 500 mg PO BID 05/31/18 Montelukast Sodium [Singulair 10 mg Tablet] 10 mg PO QPM 05/31/18 Naloxone HCl [Narcan] 4 mg NASL DAILYP PRN 05/31/18 Oxycodone HCl/Acetaminophen [Endocet 7.5-325 mg Tablet] 1 tab PO Q8 05/31/18 Roflumilast [Daliresp 500 mcg Tablet] 500 mg PO Q8 05/31/18 Ropinirole HCl [Requip] 1 mg PO Q8 05/31/18 Zolpidem Tartrate [Ambien] 5 mg PO HSP PRN 05/31/18 Allergies/Adverse Reactions: erythromycin base [Erythromycin Base] Allergy (Unknown, Verified 05/31/18 17:23) Review of Systems Constitutional: PRESENT: weakness - generalized. ABSENT: chills, fever(s) Eyes: ABSENT: visual disturbances Ears: ABSENT: hearing changes Nose, Mouth, and Throat: ABSENT: as per HPI, headache(s), mouth pain, sore throat, vertigo, other Cardiovascular: PRESENT: dyspnea on exertion, palpitations - intermittently. ABSENT: chest pain, edema, orthropnea Respiratory: PRESENT: cough. ABSENT: dyspnea Gastrointestinal: ABSENT: abdominal pain, constipation, diarrhea, hematemesis, hematochezia, nausea, vomiting Genitourinary: ABSENT: dysuria, hematuria Musculoskeletal: ABSENT: joint swelling Integumentary: ABSENT: rash, wounds Neurological: ABSENT: abnormal gait, abnormal speech, confusion, dizziness, focal weakness, syncope Psychiatric: PRESENT: anxiety, depression Endocrine: PRESENT: cold intolerance. ABSENT: heat intolerance, polydipsia, polyphagia, polyuria Hematologic/Lymphatic: ABSENT: easy bleeding, easy bruising, lymphadenopathy Allergic/Immunologic: ABSENT: seasonal rhinorrhea Physical Exam Vital Signs: Temp Pulse Resp BP Pulse Ox 97.7 F 98 30 H 116/59 L 97 06/01/18 05:05 06/01/18 05:05 06/01/18 06:00 06/01/18 05:58 06/01/18 06:00 Intake & Output 05/31/18 06/01/18 06/02/18 06:59 06:59 06:59 Intake Total 132 Balance 132 Weight 47 kg General appearance: PRESENT: mild distress - on supplemental oxygen vias nasal cannula at 2L/min, thin Head exam: PRESENT: atraumatic, normocephalic Eye exam: PRESENT: conjunctiva pink, EOMI, PERRLA. ABSENT: scleral icterus Ear exam: PRESENT: normal external ear exam Mouth exam: PRESENT: moist Neck exam: PRESENT: full ROM. ABSENT: carotid bruit, JVD, lymphadenopathy, thyromegaly Respiratory exam: PRESENT: crackles, decreased breath sounds, prolonged expiratory phas, rhonchi, tachypnea. ABSENT: chest wall tenderness Cardiovascular exam: PRESENT: tachycardia. ABSENT: diastolic murmur, +S1, +S2, systolic murmur Vascular exam: ABSENT: pallor GI/Abdominal exam: PRESENT: normal bowel sounds, soft. ABSENT: distended, guarding, mass, organolmegaly, rebound, tenderness Rectal exam: PRESENT: deferred Extremities exam: ABSENT: pedal edema Musculoskeletal exam: PRESENT: normal inspection Neurological exam: PRESENT: alert, awake, oriented to person, oriented to place, oriented to time, oriented to situation, CN II-XII grossly intact. ABSENT: motor sensory deficit Psychiatric exam: PRESENT: appropriate affect, normal mood. ABSENT: homicidal ideation, suicidal ideation Skin exam: PRESENT: dry, warm Results Laboratory Results: 05/31/18 16:13 05/31/18 16:13 05/31/18 05/31/18 05/31/18 16:13 16:13 16:13 WBC 15.4 H RBC 4.51 Hgb 12.8 Hct 39.8 MCV 88 MCH 28.4 MCHC 32.2 RDW 19.2 H Plt Count 515 H Seg Neutrophils % 46.4 Lymphocytes % 38.8 Monocytes % 12.7 Eosinophils % 1.8 Basophils % 0.3 Absolute Neutrophils 7.1 Absolute Lymphocytes 6.0 H Absolute Monocytes 2.0 H Absolute Eosinophils 0.3 Absolute Basophils 0.0 VBG pH VBG pCO2 VBG HCO3 VBG Base Excess Sodium 138.5 Potassium 4.2 Chloride 112 H Carbon Dioxide 19 L Anion Gap 8 BUN 12 Creatinine 1.07 Est GFR ( Amer) > 60 Est GFR (Non-Af Amer) 50 L Glucose 116 H Lactic Acid 0.8 Calcium 9.6 Total Bilirubin 0.2 AST 20 ALT 18 Alkaline Phosphatase 93 Total Protein 6.8 Albumin 3.4 L Urine Color Urine Appearance Urine pH Ur Specific [place] Urine Protein Urine Glucose (UA) Urine Ketones Urine Blood Urine Nitrite Ur Leukocyte Esterase Urine WBC (Auto) 05/31/18 05/31/18 16:13 19:30 WBC RBC Hgb Hct MCV MCH MCHC RDW Plt Count Seg Neutrophils % Lymphocytes % Monocytes % Eosinophils % Basophils % Absolute Neutrophils Absolute Lymphocytes Absolute Monocytes Absolute Eosinophils Absolute Basophils VBG pH 7.32 VBG pCO2 43.9 VBG HCO3 22.3 VBG Base Excess -3.7 Sodium Potassium Chloride Carbon Dioxide Anion Gap BUN Creatinine Est GFR ( Amer) Est GFR (Non-Af Amer) Glucose Lactic Acid Calcium Total Bilirubin AST ALT Alkaline Phosphatase Total Protein Albumin Urine Color DARK YELLOW Urine Appearance CLOUDY Urine pH 6.0 Ur Specific [place] 1.016 Urine Protein NEGATIVE Urine Glucose (UA) NEGATIVE Urine Ketones NEGATIVE Urine Blood NEGATIVE Urine Nitrite NEGATIVE Ur Leukocyte Esterase TRACE H Urine WBC (Auto) 1 Impressions: Chest X-Ray 05/31/18 17:01 IMPRESSION: Similar interstitial markings in the lung bases, left greater than right. No consolidation or pleural effusion. Assessment & Plan - Diagnosis (1) COPD exacerbation Is this a current diagnosis for this admission?: Yes Plan: See admitting attending physician orders for details of care plan. (2) Chronic respiratory failure with hypoxia and hypercapnia Is this a current diagnosis for this admission?: Yes Plan: See admitting attending physician orders for details of care plan. (3) Tachyarrhythmia Is this a current diagnosis for this admission?: Yes Plan: See admitting attending physician orders for details of care plan. (4) WPW (Rsrse-Kdyidqgsj-Nrplu syndrome) Is this a current diagnosis for this admission?: Yes Plan: See admitting attending physician orders for details of care plan. (5) HTN (hypertension) Qualifiers: Hypertension type: essential hypertension Qualified Code(s): I10 - Essential (primary) hypertension Is this a current diagnosis for this admission?: Yes Plan: See admitting attending physician orders for details of care plan. (6) HLD (hyperlipidemia) Qualifiers: Hyperlipidemia type: pure hypercholesterolemia Qualified Code(s): E78.00 - Pure hypercholesterolemia, unspecified Is this a current diagnosis for this admission?: Yes Plan: See admitting attending physician orders for details of care plan. (7) Chronic pain syndrome Is this a current diagnosis for this admission?: Yes Plan: See admitting attending physician orders for details of care plan. (8) Long-term current use of opiate analgesic Is this a current diagnosis for this admission?: Yes Plan: See admitting attending physician orders for details of care plan. - Time Time Spent: 50 to 70 Minutes Medications reviewed and adjusted accordingly: Yes Anticipated discharge: Home with Homehealth Within: Other - Inpatient Certification Based on my medical assessment, after consideration of the patient's comorbidities, presenting symptoms, or acuity I expect that the services needed warrant INPATIENT care.: Yes I certify that my determination is in accordance with my understanding of Medicare's requirements for reasonable and necessary INPATIENT services [42 CFR 412.3e].: Yes Medical Necessity: Significant Comorbidiites Make Outpatient Treatment Too Risky, Need Close Monitoring Due to Risk of Patient Decompensation, Need For Continuous Telemetry Monitoring, Need for Nebulizer Therapy and Monitoring of Response, Need for Pain Control, Risk of Complication if Not Cared For in Hospital, Risk of Diagnosis Which Will Require Inpatient Eval/Care/Monitoring Post Hospital Care: D/C Fore[employer] Documentation - Plan Summary Plan Summary: See admitting attending physician orders for details of care plan.
[2018-06-01] MEDS: ENOXAPARIN SODIUM INJ 40 MG/0.4 ML DISP.SYRIN SUBCUT SCH (09:23)
[2018-06-01] MEDS: ACETAZOLAMIDE 250 MG TABLET PO SCH ×2 (09:23→21:22)
[2018-06-01] MEDS: CITALOPRAM HYDROBROMIDE 20 MG TABLET PO SCH (09:23)
[2018-06-01] MEDS: DILTIAZEM HCL 30 MG TABLET PO SCH ×3 (09:29→21:22)
[2018-06-01] MEDS: PANTOPRAZOLE SODIUM 40 MG TABLET.DR PO SCH (09:29)
[2018-06-01] MEDS: MONTELUKAST SODIUM 10 MG TABLET PO SCH (17:21)
[2018-06-02] MEDS: LEVALBUTEROL HCL NEB 1.25 MG/3 ML AMPUL NEB SCH ×6 (04:18→23:46)
[2018-06-02] MEDS: OXYCODONE HCL IR 5 MG TABLET PO SCH ×3 (06:46→21:27)
[2018-06-02] MEDS: OXYCODONE-ACETAMINOPHEN 5-325 MG TABLET PO SCH ×3 (06:46→21:28)
[2018-06-02] MEDS: DILTIAZEM HCL 30 MG TABLET PO SCH ×3 (06:49→21:21)
[2018-06-02] MEDS: PANTOPRAZOLE SODIUM 40 MG TABLET.DR PO SCH (07:00)
[2018-06-02] MEDS: METHYLPREDNISOLONE INJ 125 MG/2 ML SDV IV SCH ×3 (07:00→21:22)
[2018-06-02] MEDS: ROFLUMILAST 500 MCG TABLET PO SCH ×3 (07:00→21:22)
[2018-06-02] MEDS: ROPINIROLE HCL 1 MG TABLET PO SCH ×3 (07:02→21:22)
[2018-06-02] MEDS: ALPRAZOLAM 0.5 MG TABLET PO PRN ×2 (09:03→20:14)
[2018-06-02] MEDS: OXYCODONE HCL IR 5 MG TABLET PO PRN (09:04)
[2018-06-02] MEDS: ENOXAPARIN SODIUM INJ 40 MG/0.4 ML DISP.SYRIN SUBCUT SCH (09:05)
[2018-06-02] MEDS: ACETAZOLAMIDE 250 MG TABLET PO SCH ×2 (09:05→21:26)
[2018-06-02] MEDS: CITALOPRAM HYDROBROMIDE 20 MG TABLET PO SCH (09:05)
--- NOTE | 2018-06-02 16:52 | PDOC PROGRESS REPORT ---
Subjective Progress Note for:: 06/02/18 Subjective:: Patient denied any chest pain. Breathing is fair at rest as well as her heart rate. No fever or chills. No abdominal pain, nausea, or vomiting. Reason For Visit: COPD EXACERBATION Physical Exam Vital Signs: Temp Pulse Resp BP Pulse Ox 97.4 F 100 22 H 115/58 L 96 06/02/18 15:35 06/02/18 15:46 06/02/18 15:35 06/02/18 15:35 06/02/18 15:35 Intake & Output 06/01/18 06/02/18 06/03/18 06:59 06:59 06:59 Intake Total 132 360 Output Total 801 350 Balance 132 -441 -350 Weight 47 kg 48.9 kg General appearance: PRESENT: mild distress - on supplemental oxygen voa nasal cannula, thin Head exam: PRESENT: atraumatic, normocephalic Eye exam: PRESENT: conjunctiva pink. ABSENT: scleral icterus Mouth exam: PRESENT: moist Respiratory exam: PRESENT: crackles, decreased breath sounds, prolonged expiratory phas, rhonchi - minimal in expiratory phase Cardiovascular exam: PRESENT: RRR. ABSENT: diastolic murmur, rubs, systolic murmur Vascular exam: ABSENT: pallor GI/Abdominal exam: PRESENT: normal bowel sounds, soft. ABSENT: distended, gu arding, mass, organolmegaly, rebound, tenderness Extremities exam: ABSENT: pedal edema Musculoskeletal exam: PRESENT: normal inspection Neurological exam: PRESENT: alert, awake, oriented to person, oriented to place, oriented to time, oriented to situation, CN II-XII grossly intact. ABSENT: motor sensory deficit Psychiatric exam: PRESENT: appropriate affect, normal mood. ABSENT: homicidal ideation, suicidal ideation Skin exam: PRESENT: dry, warm Results Laboratory Results: 05/31/18 16:13 05/31/18 16:13 05/31/18 19:30 Catheterized Urine Urine Culture - Final NO GROWTH 2 DAYS Impressions: Chest X-Ray 05/31/18 17:01 IMPRESSION: Similar interstitial markings in the lung bases, left greater than right. No consolidation or pleural effusion. Assessment & Plan - Diagnosis (1) COPD exacerbation Is this a current diagnosis for this admission?: Yes (2) Chronic respiratory failure with hypoxia and hypercapnia Is this a current diagnosis for this admission?: Yes (3) Tachyarrhythmia Is this a current diagnosis for this admission?: Yes (4) WPW (Pbbfi-Txdhrsfjx-Wdint syndrome) Is this a current diagnosis for this admission?: Yes (5) HTN (hypertension) Qualifiers: Hypertension type: essential hypertension Qualified Code(s): I10 - Essential (primary) hypertension Is this a current diagnosis for this admission?: Yes (6) HLD (hyperlipidemia) Qualifiers: Hyperlipidemia type: pure hypercholesterolemia Qualified Code(s): E78.00 - Pure hypercholesterolemia, unspecified Is this a current diagnosis for this admission?: Yes (7) Chronic pain syndrome Is this a current diagnosis for this admission?: Yes (8) Long-term current use of opiate analgesic Is this a current diagnosis for this admission?: Yes - Time Time Spent with patient: 25-34 minutes Medications reviewed and adjusted accordingly: Yes Anticipated discharge: Home with Homehealth Within: Other - Inpatient Certification Based on my medical assessment, after consideration of the patient's comorbidities, presenting symptoms, or acuity I expect that the services needed warrant INPATIENT care.: Yes I certify that my determination is in accordance with my understanding of Medicare's requirements for reasonable and necessary INPATIENT services [42 CFR 412.3e].: Yes Medical Necessity: Significant Comorbidiites Make Outpatient Treatment Too Risky, Need Close Monitoring Due to Risk of Patient Decompensation, Need For Continuous Telemetry Monitoring, Need for Nebulizer Therapy and Monitoring of Response, Risk of Complication if Not Cared For in Hospital, Risk of Diagnosis Which Will Require Inpatient Eval/Care/Monitoring - Plan Summary Plan Summary: Continue current medication management. Follow up on blood and sputum culture.
[2018-06-02] MEDS: MONTELUKAST SODIUM 10 MG TABLET PO SCH (17:43)
[2018-06-03] MEDS: LEVALBUTEROL HCL NEB 1.25 MG/3 ML AMPUL NEB SCH ×5 (04:11→16:00)
[2018-06-03] MEDS: OXYCODONE HCL IR 5 MG TABLET PO SCH ×3 (06:23→22:31)
[2018-06-03] MEDS: OXYCODONE-ACETAMINOPHEN 5-325 MG TABLET PO SCH ×3 (06:23→22:32)
[2018-06-03] MEDS: ROFLUMILAST 500 MCG TABLET PO SCH ×3 (06:24→22:36)
[2018-06-03] MEDS: ROPINIROLE HCL 1 MG TABLET PO SCH ×3 (06:24→22:36)
[2018-06-03] MEDS: DILTIAZEM HCL 30 MG TABLET PO SCH ×3 (06:24→22:36)
[2018-06-03] MEDS: PANTOPRAZOLE SODIUM 40 MG TABLET.DR PO SCH (06:25)
[2018-06-03] MEDS: METHYLPREDNISOLONE INJ 125 MG/2 ML SDV IV SCH ×3 (06:25→22:37)
[2018-06-03] MEDS: CITALOPRAM HYDROBROMIDE 20 MG TABLET PO SCH (09:49)
[2018-06-03] MEDS: ACETAZOLAMIDE 250 MG TABLET PO SCH ×2 (09:49→22:36)
[2018-06-03] MEDS: ENOXAPARIN SODIUM INJ 40 MG/0.4 ML DISP.SYRIN SUBCUT SCH (09:49)
--- NOTE | 2018-06-03 16:50 | PDOC PROGRESS REPORT ---
Subjective Progress Note for:: 06/03/18 Subjective:: Patient was seen by the bedside Reason For Visit: COPD EXACERBATION Physical Exam Vital Signs: Temp Pulse Resp BP Pulse Ox 97.6 F 84 16 102/46 L 96 06/03/18 11:32 06/03/18 14:00 06/03/18 13:57 06/03/18 11:32 06/03/18 13:57 Intake & Output 06/02/18 06/03/18 06/04/18 06:59 06:59 06:59 Intake Total 360 1450 829 Output Total 801 1250 450 Balance -441 200 379 Weight 48.9 kg 50.4 kg General appearance: PRESENT: no acute distress Eye exam: PRESENT: PERRLA Respiratory exam: PRESENT: rhonchi Cardiovascular exam: PRESENT: +S1, +S2 GI/Abdominal exam: PRESENT: soft Neurological exam: PRESENT: alert Results Laboratory Results: 05/31/18 16:13 05/31/18 16:13 Impressions: Chest X-Ray 05/31/18 17:01 IMPRESSION: Similar interstitial markings in the lung bases, left greater than right. No consolidation or pleural effusion. Assessment & Plan - Diagnosis (1) Acute exacerbation of chronic obstructive pulmonary disease (COPD) Is this a current diagnosis for this admission?: Yes Plan: Continue present lines of management
[2018-06-03] MEDS: MONTELUKAST SODIUM 10 MG TABLET PO SCH (17:43)
[2018-06-03] MEDS: ALPRAZOLAM 0.5 MG TABLET PO PRN (22:35)
[2018-06-03] MEDS: ZOLPIDEM TARTRATE 5 MG TABLET PO PRN (22:36)
[2018-06-04] MEDS: DILTIAZEM HCL 30 MG TABLET PO SCH ×2 (06:58→15:17)
[2018-06-04] MEDS: PANTOPRAZOLE SODIUM 40 MG TABLET.DR PO SCH (06:58)
[2018-06-04] MEDS: ROPINIROLE HCL 1 MG TABLET PO SCH ×3 (06:59→21:13)
[2018-06-04] MEDS: ROFLUMILAST 500 MCG TABLET PO SCH ×3 (06:59→21:12)
[2018-06-04] MEDS: OXYCODONE HCL IR 5 MG TABLET PO SCH ×3 (07:00→21:13)
[2018-06-04] MEDS: OXYCODONE-ACETAMINOPHEN 5-325 MG TABLET PO SCH ×3 (07:01→21:13)
[2018-06-04] MEDS: METHYLPREDNISOLONE INJ 125 MG/2 ML SDV IV SCH ×3 (07:01→21:14)
[2018-06-04] MEDS: LEVALBUTEROL HCL NEB 1.25 MG/3 ML AMPUL NEB PRN (08:43)
[2018-06-04] MEDS: CITALOPRAM HYDROBROMIDE 20 MG TABLET PO SCH (09:17)
[2018-06-04] MEDS: ENOXAPARIN SODIUM INJ 40 MG/0.4 ML DISP.SYRIN SUBCUT SCH (09:17)
[2018-06-04] MEDS: ACETAZOLAMIDE 250 MG TABLET PO SCH ×2 (09:17→21:14)
[2018-06-04] MEDS: DILTIAZEM HCL 120 MG CAP.SR.24H PO SCH (15:31)
--- NOTE | 2018-06-04 16:17 | PDOC PROGRESS REPORT ---
Subjective Progress Note for:: 06/04/18 Subjective:: Patient was seen by the bedside Reason For Visit: COPD EXACERBATION Physical Exam Vital Signs: Temp Pulse Resp BP Pulse Ox 97.3 F 81 19 129/58 H 99 06/04/18 15:38 06/04/18 15:38 06/04/18 15:38 06/04/18 15:38 06/04/18 15:38 Intake & Output 06/03/18 06/04/18 06/05/18 06:59 06:59 06:59 Intake Total 1450 1266 256 Output Total 1250 725 Balance 200 541 256 Weight 50.4 kg 49.2 kg General appearance: PRESENT: no acute distress Eye exam: PRESENT: PERRLA Respiratory exam: PRESENT: clear to auscultation luci Cardiovascular exam: PRESENT: +S1, +S2 GI/Abdominal exam: PRESENT: soft Neurological exam: PRESENT: alert Results Laboratory Results: 05/31/18 16:13 05/31/18 16:13 Impressions: Chest X-Ray 05/31/18 17:01 IMPRESSION: Similar interstitial markings in the lung bases, left greater than right. No consolidation or pleural effusion. Assessment & Plan - Diagnosis (1) Acute exacerbation of chronic obstructive pulmonary disease (COPD) Is this a current diagnosis for this admission?: Yes Plan: Continue present lines of management
[2018-06-04 16:58] LABS: HEMATOCRIT 37.2 % (36.0-47.0); HEMOGLOBIN 12.2 g/dL (12.0-15.5); MEAN CORPUSCULAR HEMOGLOBIN 28.7 pg (27.0-33.4); MEAN CORPUSCULAR HGB CONC 32.8 g/dL (32.0-36.0); MEAN CORPUSCULAR VOLUME 88 fl (80-97); PLATELET COUNT 510 10^3/uL (150-450); RED BLOOD COUNT 4.25 10^6/uL (3.72-5.28); RED CELL DISTRIBUTION WIDTH 19.6 % (11.5-14.0); WHITE BLOOD COUNT 13.8 10^3/uL (4.0-10.5)
[2018-06-04 17:12] LABS: ANION GAP 12 (5-19); BLOOD UREA NITROGEN 29 mg/dL (7-20); CARBON DIOXIDE 19 mmol/L (22-30); CHLORIDE 107 mmol/L (98-107); GLUCOSE 177 mg/dL (75-110); POTASSIUM 3.6 mmol/L (3.6-5.0); SODIUM 137.5 mmol/L (137-145)
[2018-06-04] MEDS: MONTELUKAST SODIUM 10 MG TABLET PO SCH (18:00)
[2018-06-04] MEDS: ONDANSETRON HCL INJ/PF 4 MG/2 ML SDV IV PRN (18:02)
--- NOTE | 2018-06-04 20:54 | Progress Note ---
Provider Note Provider Note: CARDIOLOGY PROGRESS NOTE by Dr. Kathleen Montero on 06/02/2016.
--- NOTE | 2018-06-04 20:55 | Progress Note ---
Provider Note Provider Note: CARDIOLOGY PROGRESS NOTE by Dr. Kathleen Luz on 06/04/2018. SUBJECTIVE: She is less short of breath: And states she feels much better. She remains in sinus rhythm, there is no arrhythmia seen on the monitor. She has chronic orthopnea but no PND or leg edema. She has no chest pain. Review of the monitor shows no atrial or ventricular arrhythmias. There is no further multifocal atrial tachycardia seen. She is tolerating Cardizem at 30 mill grams p.o. every 8 hours. She does have chronic pain with pain all over her joints. OBJECTIVE: The patient appears to be chronically ill, at present in no major distress. She does have mild shortness of breath. Selected Entries 06/04/18 15:38 Temperature 97.3 F Temperature Axillary Source Pulse Rate 81 Respiratory 19 Rate Blood Pressure 129/58 H Blood Pressure 81 Mean BP Location Left Arm BP Position Supine O2 Sat by Pulse 99 Oximetry Oxygen Flow 2 Rate Oxygen Delivery Nasal Cannula Method HEAD: Is atraumatic normocephalic. EYES: Pupils are equal round regular reactive to light accommodation. Extraocular movements are normal. There is no conjunctival pallor. There is no scleral icterus. EARS: Tympanic membranes are intact. External auditory canals are clear. NOSE: There is no deviated nasal septum. There is no inflammation of the nasal mucous membrane. MOUTH: Mucous noted in the mouth are moist tongue is moist. There is no ulcers. There is no bleeding from the gums. THROAT: There is no redness of the oropharynx. There is no exudates. SKIN: There is no skin rashes or skin lesions. There is no particular ecchymosis. NECK: Is supple. There is JVD present carotids are equal there is no bruits. There is no lymphadenopathy. There is no goiter. There is no accessory muscle respiration use. Trachea central LUNGS: There is diminished air entry and prolonged expiration. There are few scattered rhonchi, without any wheezing or crackles. On percussion there is hyperresonance. There is no rales of CHF. HEART: S1-S2 is heard. S1 is of normal intensity. There is no S3 gallop. There is no S4 gallop. There is systolic murmur left sternal border and the apex there is no rub. ABDOMEN: Is obese. Nontender. There is no hepatosplenomegaly. Bowel sounds are well heard. There is no tender areas of masses. EXTREMITIES: Femorals are deep. Femorals are diminished. Leg pulses are diminished. There is mild bilateral pedal edema present. There is no DVT or cellulitis. There is no calf tenderness. There is no sinus or clubbing. Capillary refill is normal. BE[employer] SAL[employer] CONSULTANT: The patient is conscious awake alert oriented x3 with no focal deficits. PSYCHIATRIC: The patient judgment insight are intact her affect is normal. 06/04/18 06/04/18 16:30 16:30 WBC 13.8 H RBC 4.25 Hgb 12.2 Hct 37.2 MCV 88 MCH 28.7 MCHC 32.8 RDW 19.6 H Plt Count 510 H Sodium 137.5 Potassium 3.6 Chloride 107 Carbon Dioxide 19 L Anion Gap 12 BUN 29 H Creatinine 0.98 Est GFR (Non-Af Amer) 55 L Glucose 177 H Calcium 9.0 IMPRESSION/RECOMMENDATION: 1. Acute exacerbation of COPD: Continue antibiotics continue respiratory treatments. Continue oxygen. 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 2. Acute on chronic hypoxic respiratory failure. Continue nasal oxygen, and respiratory treatments and antibiotics. 3. Multifocal atrial tachycardia on admission. On Cardizem the patient is in sinus rhythm. Will change the patient to Cardizem CD 120 mg p.o. daily and stop the Cardizem 30 mg p.o. every 8 hours. 4. Hypertension: Blood pressure well controlled. 5. History of WPW syndrome: The patient is no preexcitation on her EKG at present admission. There is no arrhythmias. Hence this seems to be a dormant diagnosis. Initially what was told to me as being SVT is a patient with WPW syndrome, was indeed multifocal atrial tachycardia, with no preexcitation on the EKG. The GA interval was not short. There were no delta waves on the EKG. 6. Chronic pain syndrome and chronic opioid dependence. Medications reviewed. Medications changed. Management plan discussed with Dr. Avendano covering Dr. Jackson during the weekend. Medical decision making is of moderate to high complexity, in view of the deviation to change the patient's medication to a long-acting more. 40 minutes spent on this patient with more than 50% of time spent in direct patient care. Note that the patient is a full code. Her daughter is her surrogate healthcare decision maker.
[2018-06-04] MEDS: ALPRAZOLAM 0.5 MG TABLET PO PRN (21:53)
[2018-06-04] MEDS: ZOLPIDEM TARTRATE 5 MG TABLET PO PRN (21:53)
[2018-06-05] MEDS: METHYLPREDNISOLONE INJ 125 MG/2 ML SDV IV SCH ×3 (05:19→21:10)
[2018-06-05] MEDS: OXYCODONE-ACETAMINOPHEN 5-325 MG TABLET PO SCH ×3 (05:20→21:09)
[2018-06-05] MEDS: PANTOPRAZOLE SODIUM 40 MG TABLET.DR PO SCH (05:20)
[2018-06-05] MEDS: ROPINIROLE HCL 1 MG TABLET PO SCH ×3 (05:20→21:09)
[2018-06-05] MEDS: ROFLUMILAST 500 MCG TABLET PO SCH ×3 (05:20→21:09)
[2018-06-05] MEDS: OXYCODONE HCL IR 5 MG TABLET PO SCH ×3 (05:20→21:10)
[2018-06-05] MEDS: ACETAZOLAMIDE 250 MG TABLET PO SCH ×2 (09:11→21:09)
[2018-06-05] MEDS: ENOXAPARIN SODIUM INJ 40 MG/0.4 ML DISP.SYRIN SUBCUT SCH (09:11)
[2018-06-05] MEDS: CITALOPRAM HYDROBROMIDE 20 MG TABLET PO SCH (09:11)
[2018-06-05] MEDS: DILTIAZEM HCL 120 MG CAP.SR.24H PO SCH ×2 (09:11→21:11)
[2018-06-05] MEDS ORDERED: DILTIAZEM HCL 120 MG CAP.SR.24H PO SCH (10:00)
--- NOTE | 2018-06-05 12:15 | PDOC PROGRESS REPORT ---
Subjective Progress Note for:: 06/05/18 Subjective:: No chest pain. Occasional palpitation persist. Intermittent productive cough. Breathing remain labored with exertion. No fever or chills. No abdominal pain, nausea, or vomiting. Reason For Visit: COPD EXACERBATION Physical Exam Vital Signs: Temp Pulse Resp BP Pulse Ox 97.2 F 63 20 114/51 L 98 06/05/18 10:57 06/05/18 10:57 06/05/18 10:57 06/05/18 10:57 06/05/18 10:57 Intake & Output 06/04/18 06/05/18 06/06/18 06:59 06:59 06:59 Intake Total 1266 1204 Output Total 725 1400 Balance 541 -196 Weight 49.2 kg 47.3 kg Physical Exam: General appearance: PRESENT: mild distress - on supplemental oxygen via nasal cannula, thin Head exam: PRESENT: atraumatic, normocephalic Eye exam: PRESENT: conjunctiva pink. ABSENT: pallor, scleral icterus Mouth exam: PRESENT: moist Respiratory exam: PRESENT: crackles, decreased breath sounds, prolonged expiratory phase, rhonchi - minimal in expiratory phase Cardiovascular exam: PRESENT: RRR. ABSENT: diastolic murmur, rubs, systolic murmur GI/Abdominal exam: PRESENT: normal bowel sounds, soft. ABSENT: distended, guarding, mass, organomegaly, rebound, tenderness Extremities exam: ABSENT: pedal edema Musculoskeletal exam: PRESENT: normal inspection Neurological exam: PRESENT: alert, awake, oriented to person, oriented to place, oriented to time, oriented to situation, CN II-XII grossly intact. ABSENT: motor sensory deficit Psychiatric exam: PRESENT: appropriate affect, normal mood. ABSENT: homicidal ideation, suicidal ideation Skin exam: PRESENT: dry, warm Results Laboratory Results: 06/04/18 16:30 06/04/18 16:30 06/04/18 06/04/18 16:30 16:30 WBC 13.8 H RBC 4.25 Hgb 12.2 Hct 37.2 MCV 88 MCH 28.7 MCHC 32.8 RDW 19.6 H Plt Count 510 H Sodium 137.5 Potassium 3.6 Chloride 107 Carbon Dioxide 19 L Anion Gap 12 BUN 29 H Creatinine 0.98 Est GFR ( Amer) > 60 Est GFR (Non-Af Amer) 55 L Glucose 177 H Calcium 9.0 Impressions: Chest X-Ray 05/31/18 17:01 IMPRESSION: Similar interstitial markings in the lung bases, left greater than right. No consolidation or pleural effusion. Assessment & Plan - Diagnosis (1) COPD exacerbation Is this a current diagnosis for this admission?: Yes (2) Chronic respiratory failure with hypoxia and hypercapnia Is this a current diagnosis for this admission?: Yes (3) Tachyarrhythmia Is this a current diagnosis for this admission?: Yes (4) WPW (Sndxz-Jggapbesr-Uhhga syndrome) Is this a current diagnosis for this admission?: Yes (5) HTN (hypertension) Qualifiers: Hypertension type: essential hypertension Qualified Code(s): I10 - Essential (primary) hypertension Is this a current diagnosis for this admission?: Yes (6) HLD (hyperlipidemia) Qualifiers: Hyperlipidemia type: pure hypercholesterolemia Qualified Code(s): E78.00 - Pure hypercholesterolemia, unspecified Is this a current diagnosis for this admission?: Yes (7) Chronic pain syndrome Is this a current diagnosis for this admission?: Yes (8) Long-term current use of opiate analgesic Is this a current diagnosis for this admission?: Yes - Time Time Spent with patient: 25-34 minutes Medications reviewed and adjusted accordingly: Yes Anticipated discharge: Home with Homehealth - Inpatient Certification Based on my medical assessment, after consideration of the patient's comorbidities, presenting symptoms, or acuity I expect that the services needed warrant INPATIENT care.: Yes I certify that my determination is in accordance with my understanding of Medicare's requirements for reasonable and necessary INPATIENT services [42 CFR 412.3e].: Yes Medical Necessity: Significant Comorbidiites Make Outpatient Treatment Too Risky, Need Close Monitoring Due to Risk of Patient Decompensation, Need For IV Fluids, Need For Continuous Telemetry Monitoring, Need for Nebulizer Therapy and Monitoring of Response, Need for Pain Control, Risk of Complication if Not Cared For in Hospital, Risk of Diagnosis Which Will Require Inpatient Eval/Care/Monitoring Post 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 Emphasized need for pulmonary toileting and patient will like to provide her own supply of flutter device for use during this hospitalization. Continue all other current medication management. Laundry Agent input appreciated.
[2018-06-05] MEDS: ONDANSETRON HCL INJ/PF 4 MG/2 ML SDV IV PRN (16:23)
[2018-06-05] MEDS: MONTELUKAST SODIUM 10 MG TABLET PO SCH (17:25)
--- NOTE | 2018-06-05 20:41 | Progress Note ---
Provider Note Provider Note: CARDIOLOGY PROGRESS NOTE by Dr. Kathleen Montero on 06/05/2018. SUBJECTIVE: Although the patient states that shortness of breath is much better she still has scattered rhonchi, but no wheezing. She still become short of breath with minimal exertion, but does not appear to be short of breath at rest. There is chronic orthopnea but no PND, and there is no chest pain or discomfort. There is no atrial or ventricular arrhythmia seen on the monitor her heart rate is controlled but at times does go up. Her blood pressure is much improved. There is no TIA CVA symptoms. PHYSICAL EXAMINATION: The patient appears to be chronically ill. She also lived looks emaciated. At present at rest she is in no acute distress. Selected Entries 06/05/18 15:48 Temperature 97.9 F Temperature Oral Source Pulse Rate 63 Respiratory 16 Rate Blood Pressure 118/48 L Blood Pressure 71 Mean BP Location Right Arm BP Position Sitting Oxygen Flow 2.00 Rate Oxygen Delivery Nasal Cannula Method HEAD: Is atraumatic normocephalic. EYES: Pupils are equal round regular reactive to light accommodation. Extraocular movements are normal. There is no conjunctival pallor. There is no scleral icterus. EARS: Tympanic membranes are intact. External auditory canals are clear. NOSE: There is no deviated nasal septum. There is no inflammation of the nasal mucous membrane. MOUTH: Mucous noted in the mouth are moist tongue is moist. There is no ulcers. There is no bleeding from the gums. THROAT: There is no redness of the oropharynx. There is no exudates. SKIN: There is no skin rashes or skin lesions. There is no particular ecchymosis. NECK: Is supple. There is JVD present carotids are equal there is no bruits. There is no lymphadenopathy. There is no goiter. There is no accessory muscle respiration use. Trachea central LUNGS: There is diminished air entry and prolonged expiration. There are few scattered rhonchi, without any wheezing or crackles. On percussion there is hyperresonance. There is no rales of CHF. HEART: S1-S2 is heard. S1 is of normal intensity. There is no S3 gallop. There is no S4 gallop. There is systolic murmur left sternal border and the apex there is no rub. ABDOMEN: Is obese. Nontender. There is no hepatosplenomegaly. Bowel sounds are well heard. There is no tender areas of masses. EXTREMITIES: Femorals are deep. Femorals are diminished. Leg pulses are diminished. There is mild bilateral pedal edema present. There is n o DVT or cellulitis. There is no calf tenderness. There is no sinus or clubbing. Capillary refill is normal. EXPLOSIVE OPERATOR GRENADE: The patient is conscious awake alert oriented x3 with no focal deficits. PSYCHIATRIC: The patient judgment insight are intact her affect is normal. IMPRESSION/RECOMMENDATION: 1. Acute exacerbation of COPD: Continue antibiotics continue respiratory treatments. Continue oxygen. 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 2. Acute on chronic hypoxic respiratory failure. Continue nasal oxygen, and respiratory treatments and antibiotics. 3. Multifocal atrial tachycardia on admission. On Cardizem the patient is in sinus rhythm. Will increase Cardizem CD 120 mg p.o. hours. 4. Hypertension: Blood pressure well controlled. 5. History of WPW syndrome: The patient is no preexcitation on her EKG at present admission. There is no arrhythmias. Hence this seems to be a dormant diagnosis. Initially what was told to me as being SVT is a patient with WPW syndrome, was indeed multifocal atrial tachycardia, with no preexcitation on the EKG. The WI interval was not short. There were no delta waves on the EKG. 6. Chronic pain syndrome and chronic opioid dependence. Medications reviewed. Medications increased. Management plan discussed with attending physician Dr. Jackson. Medical decision making is of moderate to high complexity in view of the need to adjust the patient's medication. 40 minutes spent on the patient more than 50% of time spent in direct patient care. Will follow
[2018-06-05] MEDS: ALPRAZOLAM 0.5 MG TABLET PO PRN (21:54)
[2018-06-05] MEDS: ZOLPIDEM TARTRATE 5 MG TABLET PO PRN (21:54)
[2018-06-06] MEDS: PANTOPRAZOLE SODIUM 40 MG TABLET.DR PO SCH (05:11)
[2018-06-06] MEDS: OXYCODONE-ACETAMINOPHEN 5-325 MG TABLET PO SCH ×3 (05:11→21:23)
[2018-06-06] MEDS: OXYCODONE HCL IR 5 MG TABLET PO SCH ×3 (05:12→21:22)
[2018-06-06] MEDS: ROFLUMILAST 500 MCG TABLET PO SCH ×3 (05:12→21:24)
[2018-06-06] MEDS: ROPINIROLE HCL 1 MG TABLET PO SCH ×3 (05:12→21:24)
[2018-06-06] MEDS: METHYLPREDNISOLONE INJ 125 MG/2 ML SDV IV SCH ×3 (05:12→21:24)
[2018-06-06] MEDS: CITALOPRAM HYDROBROMIDE 20 MG TABLET PO SCH (09:21)
[2018-06-06] MEDS: ENOXAPARIN SODIUM INJ 40 MG/0.4 ML DISP.SYRIN SUBCUT SCH (09:21)
[2018-06-06] MEDS: ACETAZOLAMIDE 250 MG TABLET PO SCH ×2 (09:21→21:20)
[2018-06-06] MEDS: DILTIAZEM HCL 120 MG CAP.SR.24H PO SCH ×2 (09:22→21:23)
[2018-06-06 09:41] LABS: HEMATOCRIT 38.5 % (36.0-47.0); HEMOGLOBIN 12.1 g/dL (12.0-15.5); MEAN CORPUSCULAR HEMOGLOBIN 27.9 pg (27.0-33.4); MEAN CORPUSCULAR HGB CONC 31.4 g/dL (32.0-36.0); MEAN CORPUSCULAR VOLUME 89 fl (80-97); PLATELET COUNT 502 10^3/uL (150-450); RED BLOOD COUNT 4.34 10^6/uL (3.72-5.28); RED CELL DISTRIBUTION WIDTH 19.1 % (11.5-14.0); WHITE BLOOD COUNT 19.9 10^3/uL (4.0-10.5)
[2018-06-06 10:02] LABS: ALANINE AMINOTRANSFERASE 25 U/L (9-52); ALBUMIN 2.8 g/dL (3.5-5.0); ALKALINE PHOSPHATASE 53 U/L (38-126); ANION GAP 10 (5-19); ASPARTATE AMINO TRANSFERASE 16 U/L (14-36); BLOOD UREA NITROGEN 28 mg/dL (7-20); CALCIUM 8.7 mg/dL (8.4-10.2); CARBON DIOXIDE 20 mmol/L (22-30); CHLORIDE 106 mmol/L (98-107); GLUCOSE 278 mg/dL (75-110); POTASSIUM 3.4 mmol/L (3.6-5.0); SODIUM 135.7 mmol/L (137-145); TOTAL PROTEIN 5.7 g/dL (6.3-8.2)
[2018-06-06 10:09] LABS: BILIRUBIN,TOTAL < 0.1 mg/dL (0.2-1.3)
[2018-06-06 10:22] LABS: ABSOLUTE LYMPHOCYTES# (MANUAL) 0.6 10^3/uL (0.5-4.7); ABSOLUTE MONOCYTES # (MANUAL) 0.2 10^3/uL (0.1-1.4); ABSOLUTE NEUTROPHILS# (MANUAL) 19.1 10^3/uL (1.7-8.2); BAND NEUTROPHILS % (MANUAL) 3 % (3-5); BASOPHILS % (MANUAL) 0 % (0-2); EOSINOPHILS % (MANUAL) 0 % (0-6); LYMPHOCYTES % (MANUAL) 3 % (13-45); MONOCYTES % (MANUAL) 1 % (3-13); SEGMENTED NEUTROPHILS % (MAN) 89 % (42-78); TOTAL CELLS COUNTED 100
[2018-06-06 10:24] LABS: ANISOCYTOSIS 2+; BURR CELLS SLIGHT; POIKILOCYTOSIS SLIGHT; POLYCHROMASIA SLIGHT; SCHISTOCYTES SLIGHT; TEAR DROP CELLS SLIGHT
[2018-06-06 10:25] LABS: PLATELET COMMENT INCREASED
[2018-06-06 10:26] LABS: METAMYELOCYTES % (MANUAL) 4 % (0)
[2018-06-06] MEDS: ALPRAZOLAM 0.5 MG TABLET PO PRN ×2 (12:18→23:17)
[2018-06-06] MEDS: ONDANSETRON HCL INJ/PF 4 MG/2 ML SDV IV PRN (12:27)
[2018-06-06] MEDS: LEVALBUTEROL HCL NEB 1.25 MG/3 ML AMPUL NEB PRN (14:22)
[2018-06-06] MEDS: MONTELUKAST SODIUM 10 MG TABLET PO SCH (17:15)
[2018-06-06] MEDS ORDERED: GLUCAGON,HUMAN RECOMB 1 MG INJ IM PRN (20:21)
[2018-06-06] MEDS ORDERED: DEXTROSE 50%-WATER 25 GM/50 ML DISP.SYRIN IV PRN ×2 (20:21)
[2018-06-06] MEDS ORDERED: DEXTROSE 40% GEL 15 GM TUBE PO PRN ×2 (20:21)
--- NOTE | 2018-06-06 20:21 | PDOC PROGRESS REPORT ---
Subjective Progress Note for:: 06/06/18 Subjective:: No chest pain or palpitation. Remain at baseline breathing effort. Coughing remain productive. No fever or chills. No abdominal pain, nausea, or vomiting. Reason For Visit: COPD EXACERBATION Physical Exam Vital Signs: Temp Pulse Resp BP Pulse Ox 97.8 F 75 16 114/50 L 98 06/06/18 19:19 06/06/18 19:19 06/06/18 19:19 06/06/18 19:19 06/06/18 19:19 Intake & Output 06/05/18 06/06/18 06/07/18 06:59 06:59 06:59 Intake Total 1204 1951 573 Output Total 1400 675 950 Balance -196 1276 -377 Weight 47.3 kg 47.4 kg Physical Exam: General appearance: PRESENT: mild distress - on supplemental oxygen via nasal cannula, thin Head exam: PRESENT: atraumatic, normocephalic Eye exam: PRESENT: conjunctiva pink. ABSENT: pallor, scleral icterus Mouth exam: PRESENT: moist Respiratory exam: PRESENT: crackles, decreased breath sounds, prolonged expiratory phase, rhonchi - minimal in expiratory phase Cardiovascular exam: PRESENT: RRR. ABSENT: diastolic murmur, rubs, systolic murmur GI/Abdominal exam: PRESENT: normal bowel sounds, soft. ABSENT: distended, guarding, mass, organomegaly, rebound, tenderness Extremities exam: ABSENT: pedal edema Musculoskeletal exam: PRESENT: normal inspection Neurological exam: PRESENT: alert, awake, oriented to person, oriented to place, oriented to time, oriented to situation, CN II-XII grossly intact. ABSENT: motor sensory deficit Psychiatric exam: PRESENT: appropriate affect, normal mood. ABSENT: homicidal ideation, suicidal ideation Skin exam: PRESENT: dry, warm Results Laboratory Results: 06/06/18 08:56 06/06/18 08:56 06/06/18 06/06/18 08:56 08:56 WBC 19.9 H RBC 4.34 Hgb 12.1 Hct 38.5 MCV 89 MCH 27.9 MCHC 31.4 L RDW 19.1 H Plt Count 502 H Seg Neutrophils % Not Reportable Lymphocytes % Not Reportable Monocytes % Not Reportable Eosinophils % Not Reportable Basophils % Not Reportable Absolute Neutrophils Not Reportable Absolute Lymphocytes Not Reportable Absolute Monocytes Not Reportable Absolute Eosinophils Not Reportable Absolute Basophils Not Reportable Sodium 135.7 L Potassium 3.4 L Chloride 106 Carbon Dioxide 20 L Anion Gap 10 BUN 28 H Creatinine 0.90 Est GFR ( Amer) > 60 Est GFR (Non-Af Amer) > 60 Glucose 278 H Calcium 8.7 Total Bilirubin < 0.1 L AST 16 ALT 25 Alkaline Phosphatase 53 Total Protein 5.7 L Albumin 2.8 L 05/31/18 23:17 Blood Blood Culture - Final NO GROWTH IN 5 DAYS 05/31/18 16:13 Blood Blood Culture - Final NO GROWTH IN 5 DAYS Impressions: Chest X-Ray 05/31/18 17:01 IMPRESSION: Similar interstitial markings in the lung bases, left greater than right. No consolidation or pleural effusion. Assessment & Plan - Diagnosis (1) COPD exacerbation Is this a current diagnosis for this admission?: Yes (2) Chronic respiratory failure with hypoxia and hypercapnia Is this a current diagnosis for this admission?: Yes (3) Tachyarrhythmia Is this a current diagnosis for this admission?: Yes (4) WPW (Xleum-Csgxrwbji-Kdjtk syndrome) Is this a current diagnosis for this admission?: Yes (5) HTN (hypertension) Qualifiers: Hypertension type: essential hypertension Qualified Code(s): I10 - Essential (primary) hypertension Is this a current diagnosis for this admission?: Yes (6) HLD (hyperlipidemia) Qualifiers: Hyperlipidemia type: pure hypercholesterolemia Qualified Code(s): E78.00 - Pure hypercholesterolemia, unspecified Is this a current diagnosis for this admission?: Yes (7) Chronic pain syndrome Is this a current diagnosis for this admission?: Yes (8) Long-term current use of opiate analgesic Is this a current diagnosis for this admission?: Yes - Time Time Spent with patient: 25-34 minutes Medications reviewed and adjusted accordingly: Yes Anticipated discharge: Home with Homehealth Within: Other - Inpatient Certification Based on my medical assessment, after consideration of the patient's comorbidities, presenting symptoms, or acuity I expect that the services needed warrant INPATIENT care.: Yes I certify that my determination is in accordance with my understanding of Medicare's requirements for reasonable and necessary INPATIENT services [42 CFR 412.3e].: Yes Medical Necessity: Significant Comorbidiites Make Outpatient Treatment Too Risky, Need Close Monitoring Due to Risk of Patient Decompensation, Need For Continuous Telemetry Monitoring, Need for Nebulizer Therapy and Monitoring of Response, Risk of Complication if Not Cared For in Hospital, Risk of Diagnosis Which Will Require Inpatient Eval/Care/Monitoring Post 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 Start on Potassium replacement 40 mEq po q 4 hours x 2 doses. Obtain serum Mag level. Repeat CBC with diff, BMP in AM. Start on Humalog insulin sliding scale coverage for steroid induce hyperglycemi a.
--- NOTE | 2018-06-06 20:42 | Progress Note ---
Provider Note Provider Note: CARDIOLOGY PROGRES NOTE BY Dr.LAKSHMI ZHAO ON 06/06/18. SUBJECTIVE: Patient is breathing is back to baseline. She still has a productive cough. There is no chest pain or discomfort. There is no wheezing. The patient is afebrile. There is chronic orthopnea. But the PND or leg edema she has no chest pain or discomfort. There is no TIA CVA symptoms. There is no atrial or ventricular arrhythmias seen. There is no pauses or AV blocks on the current Cardizem medication. PHYSICAL EXAMINATION: The patient is in no acute distress, but she appears to be chronically ill and malnourished and cachectic. Selected Entries 06/06/18 15:48 Temperature 97.3 F Temperature Oral Source Pulse Rate 84 Respiratory 21 H Rate Blood Pressure 108/43 L Blood Pressure 64 Mean BP Location Right Arm BP Position Supine O2 Sat by Pulse 96 Oximetry Oxygen Flow 2.00 Rate Oxygen Delivery Nasal Cannula Method HEAD: Is atraumatic normocephalic. EYES: Pupils are equal round regular reactive to light accommodation. Extraocular movements are normal. There is no conjunctival pallor. There is no scleral icterus. EARS: Tympanic membranes are intact. External auditory canals are clear. NOSE: There is no deviated nasal septum. There is no inflammation of the nasal mucous membrane. MOUTH: Mucous noted in the mouth are moist tongue is moist. There is no ulcers. There is no bleeding from the gums. THROAT: There is no redness of the oropharynx. There is no exudates. SKIN: There is no skin rashes or skin lesions. There is no particular ecchymosis. NECK: Is supple. There is JVD present carotids are equal there is no bruits. There is no lymphadenopathy. There is no goiter. There is no accessory muscle respiration use. Trachea central LUNGS: There is diminished air entry and prolonged expiration. There are few scattered rhonchi, without any wheezing or crackles. On percussion there is hyperresonance. There is no rales of CHF. HEART: S1-S2 is heard. S1 is of normal intensity. There is no S3 gallop. There is no S4 gallop. There is systolic murmur left sternal border and the apex there is no rub. ABDOMEN: Is obese. Nontender. There is no hepatosplenomegaly. Bowel sounds are well heard. There is no tender areas of masses. EXTREMITIES: Femorals are deep. Femorals are diminished. Leg pulses are diminished. There is mild bilateral pedal edema present. There is no DVT or cellulitis. There is no calf tenderness. There is no sinus or c lubbing. Capillary refill is normal. CONTAINER WASHER: The patient is conscious awake alert oriented x3 with no focal deficits. PSYCHIATRIC: The patient judgment insight are intact her affect is normal. 06/06/18 06/06/18 08:56 08:56 WBC 19.9 H RBC 4.34 Hgb 12.1 Hct 38.5 MCV 89 MCH 27.9 MCHC 31.4 L RDW 19.1 H Plt Count 502 H Total Counted 100 Seg Neutrophils % Not Reportable Seg Neuts % (Manual) 89 H Sodium 135.7 L Potassium 3.4 L Chloride 106 Carbon Dioxide 20 L Anion Gap 10 BUN 28 H Creatinine 0.90 Est GFR (Non-Af Amer) > 60 Glucose 278 H Calcium 8.7 Total Bilirubin < 0.1 L Neonat Total Bilirubin Not Reportable Neonat Direct Bilirubin Not Reportable Neonat Indirect Bili Not Reportable AST 16 ALT 25 Alkaline Phosphatase 53 Total Protein 5.7 L Albumin 2.8 L IMPRESSION/RECOMMENDATION: 1. Acute exacerbation of COPD: Continue antibiotics continue respiratory treatments. Continue oxygen. 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 2. Acute on chronic hypoxic respiratory failure. Continue nasal oxygen, and respiratory treatments and antibiotics. 3. Multifocal atrial tachycardia on admission. On Cardizem the patient is in sinus rhythm. Will increase Cardizem CD 120 mg p.o. hours. 4. Hypertension: Blood pressure well controlled. 5. History of WPW syndrome: The patient is no preexcitation on her EKG at present admission. There is no arrhythmias. Hence this seems to be a dormant diagnosis. Initially what was told to me as being SVT is a patient with WPW syndrome, was indeed multifocal atrial tachycardia, with no preexcitation on the EKG. The CA interval was not short. There were no delta waves on the EKG. 6. Chronic pain syndrome and chronic opioid dependence\ Medications reviewed. Medication management plan discussed with Dr. Jackson. Medical decision making I was of moderate complexity. 40 minutes spent on this patient more than 50% of time spent in direct patient care. Cardiac status is stable. In view of this, as discussed with Dr. Jackson, will sign off the case. Will follow the patient has an outpatient.
[2018-06-06] MEDS: POTASSIUM CHLORIDE 10 MEQ CAPSULE.ER PO SCH ×2 (21:21→22:50)
[2018-06-06] MEDS: INSULIN LISPRO 100 UNIT/ML 3 ML VIAL SUBCUT SCH (21:42)
[2018-06-06] MEDS: ZOLPIDEM TARTRATE 5 MG TABLET PO PRN (23:17)
[2018-06-07] MEDS: ROFLUMILAST 500 MCG TABLET PO SCH ×3 (06:19→21:32)
[2018-06-07] MEDS: METHYLPREDNISOLONE INJ 125 MG/2 ML SDV IV SCH ×3 (06:19→21:33)
[2018-06-07] MEDS: ROPINIROLE HCL 1 MG TABLET PO SCH ×3 (06:19→21:32)
[2018-06-07] MEDS: OXYCODONE HCL IR 5 MG TABLET PO SCH ×3 (06:19→21:31)
[2018-06-07] MEDS: PANTOPRAZOLE SODIUM 40 MG TABLET.DR PO SCH (06:20)
[2018-06-07] MEDS: OXYCODONE-ACETAMINOPHEN 5-325 MG TABLET PO SCH ×3 (06:20→21:32)
[2018-06-07] MEDS: INSULIN LISPRO 100 UNIT/ML 3 ML VIAL SUBCUT SCH ×4 (10:25→21:33)
[2018-06-07] MEDS: ENOXAPARIN SODIUM INJ 40 MG/0.4 ML DISP.SYRIN SUBCUT SCH (10:33)
[2018-06-07] MEDS: CITALOPRAM HYDROBROMIDE 20 MG TABLET PO SCH (10:33)
[2018-06-07] MEDS: DILTIAZEM HCL 120 MG CAP.SR.24H PO SCH ×2 (10:33→21:32)
[2018-06-07] MEDS: ACETAZOLAMIDE 250 MG TABLET PO SCH ×2 (10:33→21:32)
[2018-06-07 12:27] LABS: PATH REVIEW PATHOLOGIST REVIEWED
[2018-06-07] MEDS: MONTELUKAST SODIUM 10 MG TABLET PO SCH (17:48)
--- NOTE | 2018-06-07 18:56 | PDOC PROGRESS REPORT ---
Subjective Progress Note for:: 06/07/18 Subjective:: No fever or chills. No chest pain or palpitation. Remain on supplemental oxygen via nasal cannula and BiPAP usage while sleeping. No abdominal pain, nausea, or vomiting. Reason For Visit: COPD EXACERBATION Physical Exam Vital Signs: Temp Pulse Resp BP Pulse Ox 97.3 F 60 20 115/60 97 06/07/18 03:36 06/07/18 03:36 06/07/18 03:36 06/07/18 03:36 06/07/18 04:00 Intake & Output 06/06/18 06/07/18 06/08/18 06:59 06:59 06:59 Intake Total 1951 573 Output Total 675 1350 Balance 1276 -777 Weight 47.4 kg 48.4 kg Physical Exam: General appearance: PRESENT: mild distress - on supplemental oxygen via nasal cannula, thin Head exam: PRESENT: atraumatic, normocephalic Eye exam: PRESENT: conjunctiva pink. ABSENT: pallor, scleral icterus Mouth exam: PRESENT: moist Respiratory exam: PRESENT: crackles, decreased breath sounds, prolonged expiratory phase, rhonchi - minimal in expiratory phase Cardiovascular exam: PRESENT: RRR. ABSENT: diastolic murmur, rubs, systolic murmur GI/Abdominal exam: PRESENT: normal bowel sounds, soft. ABSENT: distended, guarding, mass, organomegaly, rebound, tenderness Extremities exam: ABSENT: pedal edema Musculoskeletal exam: PRESENT: normal inspection Neurological exam: PRESENT: alert, awake, oriented to person, oriented to place, oriented to time, oriented to situation, CN II-XII grossly intact. ABSENT: motor sensory deficit Psychiatric exam: PRESENT: appropriate affect, normal mood. ABSENT: homicidal ideation, suicidal ideation Skin exam: PRESENT: dry, warm Results Laboratory Results: 06/06/18 08:56 06/06/18 08:56 06/06/18 06/06/18 06/07/18 08:56 08:56 00:28 WBC 19.9 H RBC 4.34 Hgb 12.1 Hct 38.5 MCV 89 MCH 27.9 MCHC 31.4 L RDW 19.1 H Plt Count 502 H Seg Neutrophils % Not Reportable Lymphocytes % Not Reportable Monocytes % Not Reportable Eosinophils % Not Reportable Basophils % Not Reportable Absolute Neutrophils Not Reportable Absolute Lymphocytes Not Reportable Absolute Monocytes Not Reportable Absolute Eosinophils Not Reportable Absolute Basophils Not Reportable Sodium 135.7 L Potassium 3.4 L Chloride 106 Carbon Dioxide 20 L Anion Gap 10 BUN 28 H Creatinine 0.90 Est GFR ( Amer) > 60 Est GFR (Non-Af Amer) > 60 Glucose 278 H Calcium 8.7 Magnesium 2.0 Total Bilirubin < 0.1 L AST 16 ALT 25 Alkaline Phosphatase 53 Total Protein 5.7 L Albumin 2.8 L Impressions: Chest X-Ray 05/31/18 17:01 IMPRESSION: Similar interstitial markings in the lung bases, left greater than right. No consolidation or pleural effusion. Assessment & Plan - Diagnosis (1) COPD exacerbation Is this a current diagnosis for this admission?: Yes (2) Chronic respiratory failure with hypoxia and hypercapnia Is this a current diagnosis for this admission?: Yes (3) Tachyarrhythmia Is this a current diagnosis for this admission?: Yes (4) WPW (Dickv-Danskkftu-Qywhu syndrome) Is this a current diagnosis for this admission?: Yes (5) HTN (hypertension) Qualifiers: Hypertension type: essential hypertension Qualified Code(s): I10 - Essential (primary) hypertension Is this a current diagnosis for this admission?: Yes (6) HLD (hyperlipidemia) Qualifiers: Hyperlipidemia type: pure hypercholesterolemia Qualified Code(s): E78.00 - Pure hypercholesterolemia, unspecified Is this a current diagnosis for this admission?: Yes (7) Chronic pain syndrome Is this a current diagnosis for this admission?: Yes (8) Long-term current use of opiate analgesic Is this a current diagnosis for this admission?: Yes - Time Time Spent with patient: 25-34 minutes Medications reviewed and adjusted accordingly: Yes Anticipated discharge: Home with Homehealth Within: Other - Inpatient Certification Based on my medical assessment, after consideration of the patient's comorbidities, presenting symptoms, or acuity I expect that the services needed warrant INPATIENT care.: Yes I certify that my determination is in accordance with my understanding of Medicare's requirements for reasonable and necessary INPATIENT services [42 CFR 412.3e].: Yes Medical Necessity: Significant Comorbidiites Make Outpatient Treatment Too Risky, Need Close Monitoring Due to Risk of Patient Decompensation, Need For Continuous Telemetry Monitoring, Need for Nebulizer Therapy and Monitoring of Response, Risk of Complication if Not Cared For in Hospital, Risk of Diagnosis Which Will Require Inpatient Eval/Care/Monitoring Post 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 Restart on Trelegy HFA. Continue all other current medication management.
[2018-06-07] MEDS: ALPRAZOLAM 0.5 MG TABLET PO PRN (21:37)
[2018-06-07] MEDS: ZOLPIDEM TARTRATE 5 MG TABLET PO PRN (21:37)
[2018-06-08] MEDS: METHYLPREDNISOLONE INJ 125 MG/2 ML SDV IV SCH (05:39)
[2018-06-08] MEDS: ROFLUMILAST 500 MCG TABLET PO SCH (05:40)
[2018-06-08] MEDS: ROPINIROLE HCL 1 MG TABLET PO SCH (05:40)
[2018-06-08] MEDS: PANTOPRAZOLE SODIUM 40 MG TABLET.DR PO SCH (05:40)
[2018-06-08] MEDS: INSULIN LISPRO 100 UNIT/ML 3 ML VIAL SUBCUT SCH (07:25)
--- NOTE | 2018-06-08 08:28 | PDOC DISCHARGE SUMMARY ---
General - Admit/Disc Date/PCP Admission Date/Primary Care Provider: 05/31/18 19:57 SARITA CASTILLO Discharge Date: 06/08/18 - Discharge Diagnosis (1) COPD exacerbation Is this a current diagnosis for this admission?: Yes (2) Chronic respiratory failure with hypoxia and hypercapnia Is this a current diagnosis for this admission?: Yes (3) Tachyarrhythmia Is this a current diagnosis for this admission?: Yes (4) WPW (Ldmwb-Inyrhthfq-Joxwd syndrome) Is this a current diagnosis for this admission?: Yes (5) HTN (hypertension) Is this a current diagnosis for this admission?: Yes (6) HLD (hyperlipidemia) Is this a current diagnosis for this admission?: Yes (7) Chronic pain syndrome Is this a current diagnosis for this admission?: Yes (8) Long-term current use of opiate analgesic Is this a current diagnosis for this admission?: Yes - Additional Information Resuscitation Status: Full Code Prescriptions: Diltiazem HCl [Cardizem Cd 120 mg Capsule] 120 mg PO Q12 #60 cap.sr.24h Prednisone [Deltasone 5 mg Tablet] 5 mg PO ASDIR PRN #28 tablet PRN Reason: Home Medications: Acetazolamide [Diamox 250 mg Tab] 250 mg PO Q12 05/31/18 Albuterol Sulfate [Ventolin 0.083% Neb 2.5 mg/3 mL Ampul] 3 ml NEB Q6HP PRN 05/31/18 Alprazolam [Xanax 0.5 mg Tablet] 0.5 mg PO Q8HP PRN 05/31/18 Buspirone HCl [Buspar 15 mg Tablet] 7.5 mg PO Q8 05/31/18 Citalopram Hydrobromide [Celexa 40 mg Tablet] 40 mg PO DAILY 05/31/18 Fluticasone/Umeclidin/Vilanter [Trelegy 100-62.5-25 Mcg Ellipta 14 Dose/Dpi] 1 puff IH DAILY 05/31/18 Ipratropium/Albuterol Sulfate [Combivent Respimat 4 gm Mdi] 1 puff IH Q4HP PRN 05/31/18 Lactobacillus Acidophilus [Acidophilus Lactobacilli] 500 mg PO BID 05/31/18 Montelukast Sodium [Singulair 10 mg Tablet] 10 mg PO QPM 05/31/18 Naloxone HCl [Narcan] 4 mg NASL DAILYP PRN 05/31/18 Oxycodone HCl/Acetaminophen [Endocet 7.5-325 mg Tablet] 1 tab PO Q8 05/31/18 Roflumilast [Daliresp 500 mcg Tablet] 500 mg PO Q8 05/31/18 Ropinirole HCl [Requip] 1 mg PO Q8 05/31/18 Zolpidem Tartrate [Ambien] 5 mg PO HSP PRN 05/31/18 Diltiazem HCl [Cardizem Cd 120 mg Capsule] 120 mg PO Q12 #60 cap.sr.24h 06/08/18 Prednisone [Deltasone 5 mg Tablet] 5 mg PO ASDIR PRN #28 tablet 06/08/18 History of Present Illness Patient complains of: Tachycardia, Dyspnea History of Present Illness: SUSAN BINGHAM is a 77 year old female patient known to my practice who was transferred to the ED from her water quality manager Dr Whitaker's office following her follow up office visit. There was concern for significant tachycardia and dyspnea. 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 She reported intermittent episodes of palpitation even at rest. She continue to experience intermittent episodes of COPD associated chest congestion and coughing. She denied any associated chest pain, dizziness, lightheadedness, or diaphoresis. No associated fever or chills but admitted to always feeling cold. No abdominal pain, diarrhea, nausea or vomiting. She reported compliance with her medications and usage of supplemental oxygen. There was concern for possible need for EP cardiology intervention upon arrival and evaluation in the ED. There was 24 hours waiting list at [facility] and [facility] at the time and patient did agree to stay at our facility for further care. There was consultation with Dr. Kulkarni, water quality manager, who has longstanding knowledge about patient's problem and he is opinion that she can be managed locally and no need for EP cardiology intervention at this time. She is in agreement to continue her care locally and she will be admitted for exacerbated COPD. 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 difficile colitis, mixed anxiety with depression, osteoarthritis with chronic pain syndrome and chronic opioid dependency. Hospital Course Hospital Course: Patient was admitted with concern for exacerbated COPD with tachyarrhythmia. She was treated with IV Solu Medrol and bronchodilators. She was seen in consultation by Dr. Kulkarni and subsequently started on Cardizem therapy. Patient's symptoms have improved on current medication management. She will be discharged home on Cardizem CD 120 mg p.o bid and tapering dose of Prednisone. She will have resumption of her [employer] services. She will follow up with Dr. Kulkarni and myself as instructed upon discharge. Physical Exam Vital Signs: Temp Pulse Resp BP Pulse Ox 97.5 F 60 20 129/64 H 99 06/07/18 23:52 06/08/18 02:00 06/07/18 23:52 06/07/18 23:52 06/07/18 23:52 Intake & Output 06/07/18 06/08/18 06/09/18 06:59 06:59 06:59 Intake Total 573 1717 Output Total 1350 1100 Balance -777 617 Weight 48.4 kg 47.5 kg Physical Exam: General appearance: PRESENT: mild distress - on supplemental oxygen via nasal cannula, thin Head exam: PRESENT: atraumatic, normocephalic Eye exam: PRESENT: conjunctiva pink. ABSENT: pallor, scleral icterus Mouth exam: PRESENT: moist Respiratory exam: PRESENT: scattered crackles improved with coughing, decreased breath sounds, prolonged expiratory phase, rhonchi - minimal in expiratory phase Cardiovascular exam: PRESENT: RRR. ABSENT: diastolic murmur, rubs, systolic murmur GI/Abdominal exam: PRESENT: normal bowel sounds, soft. ABSENT: distended, guarding, mass, organomegaly, rebound, tenderness Extremities exam: ABSENT: pedal edema Musculoskeletal exam: PRESENT: normal inspection Neurological exam: PRESENT: alert, awake, oriented to person, oriented to place, oriented to time, oriented to situation, CN II-XII grossly intact. ABSENT: motor sensory deficit Psychiatric exam: PRESENT: appropriate affect, normal mood. ABSENT: homicidal ideation, suicidal ideation Skin exam: PRESENT: dry, warm Results Laboratory Results: 06/06/18 08:56 06/06/18 08:56 Impressions: Chest X-Ray 05/31/18 17:01 IMPRESSION: Similar interstitial markings in the lung bases, left greater than right. No consolidation or pleural effusion. Qualifiers - * PATIENT BEING DISCHARGED WITH ANY OF THE FOLLOWING DIAGNOSIS: No Acute Heart Failure Is this a Heart Failure Patient?: No Plan Discharge Plan: D/C home today. Follow up with Dr. Kulkarni and myself as instructed upon discharge.
[2018-06-08] MEDS ORDERED: FLUTICASONE/UMECLIDIN/VILANTER 100-62.5-25 MCG/DOSE IH SCH (10:00)
[2018-06-08] MEDS ORDERED: LACTOBACILLUS ACIDOPHILUS 250 MG TAB PO SCH (10:00)
[2018-06-08] MEDS ORDERED: LACTOBACILLUS ACIDOPHILUS PO SCH (10:00)
[2018-06-08 10:06] VITALS: BP 124/59
[2018-06-08] MEDS: DILTIAZEM HCL 120 MG CAP.SR.24H PO SCH (10:15)
[2018-06-08] MEDS: CITALOPRAM HYDROBROMIDE 20 MG TABLET PO SCH (10:16)
[2018-06-08] MEDS: ACETAZOLAMIDE 250 MG TABLET PO SCH (10:19)
== END 2018-06-08 11:15 | disposition home health service (06) | DRG 189 ==
LOC: ER 16:59 → EH 19:57 → ICU 06-01 04:52 → 3S 06-02 11:22
PROVIDERS: ADMIT Internal Medicine Geriatric Medicine; ATTEND Internal Medicine Geriatric Medicine
DX: J96.21 Acute and chronic respiratory failure with hypoxia (principal); J44.1 Chronic obstructive pulmonary disease with (acute) exacerbation; I47.1 Supraventricular tachycardia; F11.20 Opioid dependence, uncomplicated; E46 Unspecified protein-calorie malnutrition; Z68.1 Body mass index [BMI] 19.9 or less, adult; J96.12 Chronic respiratory failure with hypercapnia; I45.6 Pre-excitation syndrome; I50.9 Heart failure, unspecified; I11.0 Hypertensive heart disease with heart failure; E78.00 Pure hypercholesterolemia, unspecified; G89.4 Chronic pain syndrome; K21.9 Gastro-esophageal reflux disease without esophagitis; Z95.0 Presence of cardiac pacemaker; Z79.51 Long term (current) use of inhaled steroids; Z79.899 Other long term (current) drug therapy
CPT/HCPCS: 36415; 71045; 80048; 80053; 81001; 82803; 82962; 83605; 83735; 85025; 85027; 85610; 87040; 87086; 87493; 93005; 93010; 94640; 94660; 96365; 99291; 99292; J0282; J1642; J1650; J1815; J2405; J2930; J3490; J7060

== ENCOUNTER 2018-08-08 16:01 | Inpatient (IN) | payer MEDICARE, OTHER ==
[2018-08-08] MEDS ORDERED: IPRATROPIUM/ALBUTEROL 0.5-2.5 MG/3 ML AMPUL NEB ONE (16:32)
--- NOTE | 2018-08-08 16:41 | ER Document Report ---
ED Medical Screen (RME) - General Chief Complaint: Shortness Of Breath Stated Complaint: SHORTNESS OF BREATH Time Seen by Provider: 08/08/18 16:32 Primary Care Provider: SARITA CASTILLO MD [Primary Care Provider] - Follow up as needed Mode of Arrival: Ambulatory Information source: Patient TRAVEL OUTSIDE OF THE [place] IN LAST 30 DAYS: No - HPI Notes: 08/08/18 16:33 Patient is a 77 yrs old female with a medical hx of COPD that presents to the emergency department for chief complaint of vomiting, SOB, productive cough for the last 3 days patient is on 3 L of nasal cannula at home. Worse with time, nothing makes better. Decreased eating and drinking. No rashes. ROS: Other than noted above, the 12 point review of systems was reviewed with the patient and were negative, all pertinent findings are included in the HPI. PHYSICAL EXAMINATION: Vital signs reviewed. GENERAL: Well-appearing, well-nourished and in no acute distress. HEAD: Atraumatic, normocephalic. EYES: Pupils equal round extraocular movements intact, conjunctiva are normal. ENT: Nares patent NECK: Normal range of motion CV: Tachycardia LUNGS: Wheezing throughout Musculoskeletal: Normal range of motion NEUROLOGICAL: Normal speech PSYCH: Normal mood, normal affect. MDM: Patient seen and examined for rapid initial assessment. Vital signs reviewed. A comprehensive ED assessment and evaluation of the patient, analysis of test results and completion of the medical decision making process will be conducted by additional ED providers. *Note is created using voice recognition software and may contain spelling, syntax or grammatical errors. 08/08/18 16:34 - Related Data Allergies/Adverse Reactions: erythromycin base [Erythromycin Base] Allergy (Unknown, Verified 05/31/18 17:23) Past Medical History - Social History Chew tobacco use (# tins/day): No Frequency of alcohol use: None Drug Abuse: None - Past Medical History Cardiac Medical History: Reports: Hx Hypercholesterolemia, Hx Hypertension, Hx Pulmonary Embolism Denies: Hx Coronary Artery Disease, Hx Heart Attack Pulmonary Medical History: Reports: Hx Asthma, Hx Bronchitis, Hx COPD, Hx Pneumonia, Hx Respiratory Failure, Hx Sleep Apnea Neurological Medical History: Denies: Hx Cerebrovascular Accident, Hx Seizures Endocrine Medical History: Denies: Hx Graves' Disease Renal/ Medical History: Reports: Hx Kidney Stones - 20 year ago. Denies: Hx Ovarian Cysts, Hx Peritoneal Dialysis, Hx Pelvic Inflammatory Disease Malignancy Medical History: GI Medical History: Reports: Hx Diverticulitis, Hx Gastroesophageal Reflux Disease, Hx Ulcer. Denies: Hx Irritable Bowel, Hx Liver Failure, Hx Pancreatitis Musculoskeltal Medical History: Denies Hx Arthritis, Denies Hx Multiple Sclerosis, Denies Hx Muscular Dystrophy, Denies Hx Systemic Lupus Erythematosus Skin Medical History: Reports Hx MRSA Psychiatric Medical History: Reports: Hx Depression Denies: Hx Schizophrenia Traumatic Medical History: Denies: Hx Fractures, Hx Gunshot Wound Infectious Medical History: Denies: Hx HIV Past Surgical History: Reports: Hx Bowel Surgery - Old colostomy from a tear intestines resectioned, Hx Cardiac Surgery - pacemaker, Hx Colostomy - with reversal, 6 years ago, Hx Hysterectomy, Hx Orthopedic Surgery - left hip replacement 11/04/2014, RIGHT KNEE CYST REMOVAL, Hx Pacemaker - Immunizations Immunizations up to date: Yes Hx Diphtheria, Pertussis, Tetanus Vaccination: No History of Influenza Vaccine for 11/2016 - 04/2017 Season: Unknown Physical Exam - Vital signs Vitals: Temp Pulse Resp BP Pulse Ox 98.6 F 129 H 40 H 116/69 92 08/08/18 16:01 08/08/18 16:01 08/08/18 16:01 08/08/18 16:01 08/08/18 16:01 Course - Vital Signs Vital signs: Temp Pulse Resp BP Pulse Ox 98.6 F 129 H 40 H 116/69 92 08/08/18 16:01 08/08/18 16:01 08/08/18 16:01 08/08/18 16:01 08/08/18 16:01 Doctor's Discharge - Discharge Referrals: SARITA CASTILLO MD [Primary Care Provider] - Follow up as needed
--- NOTE | 2018-08-08 17:12 | RADIOLOGY REPORT (SQ) ---
EXAM DESCRIPTION: CHEST SINGLE VIEW COMPLETED DATE/TIME: 08/08/2018 5:01 pm REASON FOR STUDY: sob COMPARISON: CT angio chest 03/08/2018 AP chest 04/02/2018, 05/01/2018, 05/31/2018 EXAM PARAMETERS: NUMBER OF VIEWS: One view. TECHNIQUE: Single frontal radiographic view of the chest acquired. RADIATION DOSE: NA LIMITATIONS: None. FINDINGS: LUNGS AND PLEURA: Obstructive lung disease with hyperlucency. Chronic increased interstit ial markings along the right and left lateral costophrenic sulci. No acute infiltrates. No pleural effusion or pneumothorax. MEDIASTINUM AND HILAR STRUCTURES: No masses. Contour normal. HEART AND VASCULAR STRUCTURES: No cardiomegaly. Huge central pulmonary arteries from pulmonary hyper tension BONES: No acute findings. HARDWARE: Right-sided permanent central line tip superior vena cava. Left-sided dual lead pacemaker OTHER: No other significant finding. IMPRESSION: Obstructive lung disease with pulmonary fibrosis at both bases. Huge central pulmonary arteries from pulmonary hypertension. No acute infiltrates. TECHNICAL DOCUMENTATION: JOB ID: [id number] [employer]- All Rights Reserved Reading location - IP/workstation name: [email or web address]
[2018-08-08 18:17] LABS: HEMATOCRIT 36.3 % (36.0-47.0); HEMOGLOBIN 11.4 g/dL (12.0-15.5); MEAN CORPUSCULAR HEMOGLOBIN 27.2 pg (27.0-33.4); MEAN CORPUSCULAR HGB CONC 31.4 g/dL (32.0-36.0); MEAN CORPUSCULAR VOLUME 86 fl (80-97); PLATELET COUNT 504 10^3/uL (150-450); RED BLOOD COUNT 4.21 10^6/uL (3.72-5.28); RED CELL DISTRIBUTION WIDTH 19.8 % (11.5-14.0)
[2018-08-08] MEDS ORDERED: MAGNESIUM SULFATE/D5W 1 GM/100 ML RTUPB IV ONE (18:19)
[2018-08-08] MEDS ORDERED: METHYLPREDNISOLONE INJ 125 MG/2 ML SDV IV ONE (18:19)
[2018-08-08 18:28] LABS: WHITE BLOOD COUNT 50.3 10^3/uL (4.0-10.5)
[2018-08-08 18:33] LABS: ALANINE AMINOTRANSFERASE 10 U/L (9-52); ALBUMIN 3.4 g/dL (3.5-5.0); ALKALINE PHOSPHATASE 111 U/L (38-126); ANION GAP 13 (5-19); ASPARTATE AMINO TRANSFERASE 22 U/L (14-36); BILIRUBIN,DIRECT 0.3 mg/dL (0.0-0.4); BILIRUBIN,TOTAL 0.4 mg/dL (0.2-1.3); BLOOD UREA NITROGEN 18 mg/dL (7-20); CALCIUM 9.5 mg/dL (8.4-10.2); CARBON DIOXIDE 19 mmol/L (22-30); CHLORIDE 101 mmol/L (98-107); CREATINE KINASE 22 U/L (30-135); GLUCOSE 138 mg/dL (75-110); POTASSIUM 3.5 mmol/L (3.6-5.0); SODIUM 132.8 mmol/L (137-145)
[2018-08-08 18:36] LABS: BAND NEUTROPHILS % (MANUAL) 3 % (3-5); BASOPHILS % (MANUAL) 1 % (0-2); EOSINOPHILS % (MANUAL) 0 % (0-6); LYMPHOCYTES % (MANUAL) 2 % (13-45); METAMYELOCYTES % (MANUAL) 1 % (0); MONOCYTES % (MANUAL) 8 % (3-13); SEGMENTED NEUTROPHILS % (MAN) 85 % (42-78); TOTAL CELLS COUNTED 100
[2018-08-08 18:39] LABS: ANISOCYTOSIS 1+; PLATELET COMMENT INCREASED; POLYCHROMASIA SLIGHT; TOXIC GRANULATION SLIGHT
[2018-08-08 18:43] LABS: CREATINE KINASE MB 0.52 ng/mL (<4.55); NT PRO BNP 2800 pg/mL (<450)
[2018-08-08 18:45] LABS: TROPONIN I < 0.012 ng/mL
[2018-08-08 22:19] LABS: ARTERIAL BLOOD BASE EXCESS -2.7 mmol/L; ARTERIAL BLOOD H2CO3 1.08 mmol/L (1.05-1.35); ARTERIAL BLOOD HCO3 21.6 mmol/L (20-24); ARTERIAL BLOOD PCO2 35.9 mmHg (35-45); ARTERIAL BLOOD PO2 80.9 mmHg (80-100); ARTERIAL BLOOD TOTAL CO2 22.7 mmol/L (21-25)
[2018-08-08 22:23] LABS: ARTERIAL BLOOD FIO2 2L
[2018-08-08] MEDS ORDERED: LEVOFLOXACIN 500 MG/D5W RTU 500 MG/100 ML RTUPB IV ONE (23:01)
--- NOTE | 2018-08-08 23:06 | ER Document Report ---
ED General - General Chief Complaint: Shortness Of Breath Stated Complaint: SHORTNESS OF BREATH Time Seen by Provider: 08/08/18 16:32 Primary Care Provider: SARITA CASTILLO MD [Primary Care Provider] - Follow up as needed Mode of Arrival: Ambulatory TRAVEL OUTSIDE OF THE [place] IN LAST 30 DAYS: No - HPI Notes: Patient is a 77-year-old female who presents emergency department for evaluation of increased shortness of breath, nausea, vomiting. Symptoms started over the last 2 days. She has had 2 episodes of nonbloody, nonbilious emesis. Normal bowel movements. She has had decreased oral intake. No lisa fevers. She has had a cough that is been nonproductive. She denies any pain. - Related Data Allergies/Adverse Reactions: erythromycin base [Erythromycin Base] Allergy (Unknown, Verified 05/31/18 17:23) Past Medical History - General Information source: Patient - Social History Smoking Status: Former Smoker Chew tobacco use (# tins/day): No Frequency of alcohol use: None Drug Abuse: None Family History: CAD - This is in not immediate family members., DM, Hyperlipidemia, Hypertension Patient has suicidal ideation: No Patient has homicidal ideation: No - Past Medical History Cardiac Medical History: Reports: Hx Hypercholesterolemia, Hx Hypertension, Hx Pulmonary Embolism Denies: Hx Coronary Artery Disease, Hx Heart Attack Pulmonary Medical History: Reports: Hx Asthma, Hx Bronchitis, Hx COPD, Hx Pneumonia, Hx Respiratory Failure, Hx Sleep Apnea Neurological Medical History: Denies: Hx Cerebrovascular Accident, Hx Seizures Endocrine Medical History: Denies: Hx Graves' Disease Renal/ Medical History: Reports: Hx Kidney Stones - 20 year ago. Denies: Hx Ovarian Cysts, Hx Peritoneal Dialysis, Hx Pelvic Inflammatory Disease Malignancy Medical History: GI Medical History: Reports: Hx Diverticulitis, Hx Gastroesophageal Reflux Disease, Hx Ulcer. Denies: Hx Irritable Bowel, Hx Liver Failure, Hx Pancreatitis Musculoskeletal Medical History: Denies Hx Arthritis, Denies Hx Multiple Sclerosis, Denies Hx Muscular Dystrophy, Denies Hx Systemic Lupus Erythematosus Skin Medical History: Reports Hx MRSA Psychiatric Medical History: Reports: Hx Depression Denies: Hx Schizophrenia Traumatic Medical History: Denies: Hx Fractures, Hx Gunshot Wound Infectious Medical History: Denies: Hx HIV Past Surgical History: Reports: Hx Bowel Surgery - Old colostomy from a tear intestines resectioned, Hx Cardiac Surgery - pacemaker, Hx Colostomy - with reversal, 6 years ago, Hx Hysterectomy, Hx Orthopedic Surgery - left hip replacement 11/04/2014, RIGHT KNEE CYST REMOVAL, Hx Pacemaker - Immunizations Immunizations up to date: Yes Hx Diphtheria, Pertussis, Tetanus Vaccination: No Hx Pneumococcal Vaccination: 06/04/11 Review of Systems - Review of Systems Constitutional: Malaise, Weakness EENT: No symptoms reported Cardiovascular: No symptoms reported Respiratory: See HPI Gastrointestinal: See HPI Genitourinary: No symptoms reported Musculoskeletal: No symptoms reported Skin: No symptoms reported Neurological/Psychological: No symptoms reported Physical Exam - Vital signs Vitals: Temp Pulse Resp BP Pulse Ox 98.6 F 129 H 40 H 116/69 92 08/08/18 16:01 08/08/18 16:01 08/08/18 16:01 08/08/18 16:01 08/08/18 16:01 - Notes Notes: This is a frail-appearing 77-year-old female who appears her stated age in mild distress. She is tachypneic with mildly increased work of breathing. She is frail in appearance. Vital signs reviewed, please refer to chart. Head is normocephalic, atraumatic. Pupils equal round, reactive to light. Neck is supple without meningismus. Heart is regular rate and rhythm. Lungs reveal prolonged expiratory phase and extensive wheezing throughout. Abdomen is soft, nontender, normoactive bowel sounds throughout. Extremities without cyanosis, clubbing. Posterior calves are nontender. Peripheral pulses are equal. Skin is warm and dry. Patient is awake, alert, neurological exam is nonfocal. Course - Re-evaluation Re-evalutation: 08/08/18 23:04 Patient is a 77-year-old female with history of significant COPD, oxygen depende nt, who presents emergency department for evaluation of increased difficulty breathing. She states on arrival she is chronically on 3 L of oxygen per nasal cannula. She was placed on that after breathing treatment, magnesium. She is feeling somewhat improved here in the emergency department. Laboratory investigations revealed a leukocytosis of over 50,000. The patient has had white cell counts that high in the past. I did further talk to the patient as well as her daughter. They state that they have not had further evaluation for this as far as they know. She is never had a bone marrow biopsy. Her chest x- ray fails to reveal any significant infiltrates, does show chronic changes ass ociated with COPD and pulmonary artery hypertension. ABG was performed, as the patient seemed to be very drowsy. On further questioning she is in fact only supposed to be on 2 L of oxygen per nasal cannula. She had an SPO2 of 97% on the 3 L. ABG was performed and was in fact excellent. She did not have further emesis here. Urinalysis is ordered and still pending. She has some very mild dehydration as noted on laboratory investigations, but given her history of CHF and her elevated proBNP, I do not feel inclined to give IV fluids at this time, particularly as she has stopped vomiting. Awaiting phone call from Dr. Castillo. 08/08/18 23:06 08/08/18 23:32 I am covering this patient for COPD exacerbation with Levaquin. I do not strongly suspect an overt source of infection. I am, however, covering her with the Levaquin, his urine is still pending. She remained stable, but this is a remarkable leukocytosis. She is mildly dry but could not tolerate significant IV fluids secondary to heart failure history. I spoke with Dr. Castillo who will admit the patient. 08/08/18 23:33 Patient's urine does not fact show elevated white blood cells. It is nitrite negative. It is sent for culture. Certainly that could be the etiology for her vomiting. The Levaquin already administered to cover for UTI. Again will admit the patient to telemetry. - Vital Signs Vital signs: Temp Pulse Resp BP Pulse Ox 98.6 F 129 H 27 H 107/56 L 97 08/08/18 16:01 08/08/18 16:01 08/08/18 20:01 08/08/18 21:01 08/08/18 21:01 - Laboratory Result Diagrams: 08/08/18 18:00 08/08/18 18:00 Laboratory results interpreted by me: 08/08/18 08/08/18 08/08/18 18:00 18:00 18:00 WBC 50.3 H* Hgb 11.4 L MCHC 31.4 L RDW 19.8 H Plt Count 504 H Seg Neuts % (Manual) 85 H Lymphocytes % (Manual) 2 L Metamyelocytes % 1 H Abs Neuts (Manual) 44.8 H Abs Monocytes (Manual) 4.0 H Abs Basophils (Manual) 0.5 H Sodium 132.8 L Potassium 3.5 L Carbon Dioxide 19 L Est GFR ( Amer) 55 L Est GFR (Non-Af Amer) 46 L Glucose 138 H Creatine Kinase 22 L NT-Pro-B Natriuret Pep 2800 H Albumin 3.4 L - Diagnostic Test Radiology reviewed: Reports reviewed Radiology results interpreted by me: 08/08/18 23:03 Chest X-Ray 08/08/18 16:32 IMPRESSION: Obstructive lung disease with pulmonary fibrosis at both bases. Huge central pulmonary arteries from pulmonary hypertension. No acute infiltrates. - EKG Interpretation by Me Additional EKG results interpreted by me: 08/08/18 23:03 Sinus mechanism with rate of 97 bpm. Left axis deviation. Nonspecific ST changes, but no acute changes concerning for ischemia or infarction. No significant change compared to prior study. Discharge - Discharge Clinical Impression: COPD exacerbation Leukocytosis Qualifiers: Leukocytosis type: unspecified Qualified Code(s): D72.829 - Elevated white blood cell count, unspecified Nausea and vomiting Qualifiers: Vomiting Intractability: non-intractable Condition: Stable Disposition: ADMITTED INPATIENT Admitting Provider: Renetta Unit Admitted: Telemetry Referrals: SARITA CASTILLO MD [Primary Care Provider] - Follow up as needed
[2018-08-08 23:32] LABS: APPEARANCE,URINE SLIGHTLY-CLOUDY; BILIRUBIN,URINE NEGATIVE (NEGATIVE); CALCIUM OXALATE CRYSTALS,URINE MODERATE /HPF; COLOR,URINE YELLOW; GLUCOSE, URINE NEGATIVE (NEGATIVE); KETONES,URINE NEGATIVE (NEGATIVE); LEUKOCYTE ESTERASE,URINE SMALL (NEGATIVE); NITRITE,URINE NEGATIVE (NEGATIVE); PROTEIN,URINE 30 mg/dL (NEGATIVE); URINE SPECIFIC GRAVITY 1.015; UROBILINOGEN,URINE NEGATIVE mg/dL (<2.0)
--- NOTE | 2018-08-09 00:17 | EKG REPORT ---
SEVERITY:- ABNORMAL ECG - SINUS RHYTHM LEFT ATRIAL ABNORMALITY LEFT ANTERIOR FASCICULAR BLOCK PROBABLE LEFT VENTRICULAR HYPERTROPHY : Confirmed by: Mervat Mancuso 09-Aug-2018 00:16:06
[2018-08-09] MEDS ORDERED: ROPINIROLE HCL 1 MG TABLET PO SCH ×4 (01:10→22:00)
[2018-08-09] MEDS ORDERED: LEVALBUTEROL HCL NEB 1.25 MG/3 ML AMPUL NEB SCH (01:12)
[2018-08-09] MEDS ORDERED: LEVALBUTEROL HCL NEB 1.25 MG/3 ML AMPUL NEB ONE (01:19)
[2018-08-09] MEDS ORDERED: ROPINIROLE HCL 1 MG TABLET ONE (01:50)
[2018-08-09] MEDS: LEVALBUTEROL HCL NEB 1.25 MG/3 ML AMPUL NEB SCH ×5 (04:15→19:45)
[2018-08-09] MEDS: ROPINIROLE HCL 1 MG TABLET PO SCH ×3 (05:52→21:46)
[2018-08-09] MEDS ORDERED: METHYLPREDNISOLONE INJ 125 MG/2 ML SDV IV SCH (06:00)
[2018-08-09] MEDS ORDERED: LEVOFLOXACIN 500 MG/D5W RTU 500 MG/100 ML RTUPB IV SCH (10:00)
[2018-08-09 10:17] LABS: PATH REVIEW PATHOLOGIST REVIEWED
[2018-08-09] MEDS: CEFEPIME 1 GM/D5W RTU 1 GM/50 ML RTUPB IV SCH ×2 (10:53→21:49)
[2018-08-09] MEDS: METHYLPREDNISOLONE INJ 125 MG/2 ML SDV IV SCH ×2 (14:42→21:47)
[2018-08-09] MEDS ORDERED: ALPRAZOLAM 0.5 MG TABLET PO PRN ×2 (15:13→15:30)
[2018-08-09] MEDS ORDERED: DILTIAZEM HCL 180 MG CAPSULE.CR PO SCH (15:30)
[2018-08-09] MEDS: ALPRAZOLAM 0.5 MG TABLET PO PRN (15:31)
[2018-08-09] MEDS ORDERED: (PENDING PHARMACY ID) (Zolpidem Tartrate [Ambien] 5 MG) PO PRN (17:37)
[2018-08-09] MEDS ORDERED: (PENDING PHARMACY ID) (Levalbuterol Hcl [Levalbuterol Concentrate] 1.25 MG) IH SCH (18:00)
[2018-08-09] MEDS ORDERED: (PENDING PHARMACY ID) (Ranitidine Hcl [Ranitidine Hcl] 150 MG) PO SCH (18:00)
[2018-08-09] MEDS: MONTELUKAST SODIUM 10 MG TABLET PO SCH (18:56)
[2018-08-09] MEDS: FAMOTIDINE 20 MG TABLET PO SCH (18:56)
--- NOTE | 2018-08-09 20:33 | PDOC H&P ---
History of Present Illness Admission Date/PCP: 08/08/18 23:46 SARITA OSMANDIIRINARoyce History of Present Illness: SUSAN BINGHAM is a 77 year old female known to my practice who presented to the ED due to worsening difficulty with breathing over last 2 days. There is associated productive coughing and longstanding history of end stage COPD. She denied any chest pain. There is intermittent increase heart rate. She reported associated ongoing diarrhea, nausea, and vomiting. Patient reported loss of appetite and poor oral intake. She admitted to chills but denied definite fever. She admitted to dizziness but denied vertigo or headache. Her ED evaluation was remarkable for reported episodes of vomiting, tachypnea and tachycardia, and significant leukocytosis with left shift. Her chest X ray suggested COPD with pulmonary fibrosis. Her morbidities include HTN, HLD, COPD, Pulmonary embolism, GERD, Recurrent C. difficile colitis. She was advised hospitalization for further evaluation and management. Past Medical History Cardiac Medical History: Reports: Hyperlipidema, Hypertension, Pulmonary Embolism Denies: Coronary Artery Disease, Myocardial Infarction Pulmonary Medical History: Reports: Asthma, Bronchitis, Chronic Obstructive Pulmonary Disease (COPD), Pneumonia, Respiratory Failure, Sleep Apnea Neurological Medical History: Denies: Seizures Endocrine Medical History: Renal/ Medical History: Malignancy Medical History: GI Medical History: Reports: Diverticulitis, Gastroesophageal Reflux Disease Musculoskeltal Medical History: Denies: Arthritis Psychiatric Medical History: Reports: Depression Traumatic Medical History: Denies: Gunshot Wound Hematology: Denies: Anemia Infectious Medical History: Denies: HIV Past Surgical History Past Surgical History: Reports: Colostomy - with reversal, 6 years ago, Hysterectomy, Orthopedic Surgery - left hip replacement 11/04/2014, RIGHT KNEE CYST REMOVAL, Pacemaker Social History Smoking Status: Former Smoker Number of Years Smokin Frequency of Alcohol Use: None Hx Recreational Drug Use: No Drugs: None Hx Prescription Drug Abuse: No - Advance Directive Resuscitation Status: Full Code Family History Family History: CAD - This is in not immediate family members., DM, Hyperlipidemia, Hypertension Parental Family History Reviewed: Yes Children Family History Reviewed: Yes Sibling(s) Family History Reviewed.: Yes Medication/Allergy Home Medications: Acetazolamide [Diamox 250 mg Tab] 250 mg PO Q12 05/31/18 Alprazolam [Xanax 0.5 mg Tablet] 0.5 mg PO Q8HP PRN 05/31/18 Buspirone HCl [Buspar 15 mg Tablet] 7.5 mg PO Q8 05/31/18 Citalopram Hydrobromide [Celexa 40 mg Tablet] 40 mg PO DAILY 05/31/18 Montelukast Sodium [Singulair 10 mg Tablet] 10 mg PO QPM 05/31/18 Naloxone HCl [Narcan] 4 mg NASL DAILYP PRN 05/31/18 Oxycodone HCl/Acetaminophen [Endocet 7.5-325 mg Tablet] 1 tab PO Q8 05/31/18 Roflumilast [Daliresp 500 mcg Tablet] 500 mg PO QHS 05/31/18 Ropinirole HCl [Requip] 1 mg PO Q8 05/31/18 Zolpidem Tartrate [Ambien] 5 mg PO HSP PRN 05/31/18 Diltiazem HCl [Diltiazem 24Hr Cd] 180 mg PO Q12 08/09/18 Levalbuterol HCl [Levalbuterol Concentrate] 1.25 mg IH Q6 08/09/18 Ranitidine HCl 150 mg PO BID 08/09/18 Allergies/Adverse Reactions: erythromycin base [Erythromycin Base] Allergy (Unknown, Verified 05/31/18 17:23) Review of Systems Constitutional: PRESENT: anorexia, chills Eyes: ABSENT: visual disturbances Ears: ABSENT: hearing changes Nose, Mouth, and Throat: ABSENT: as per HPI, headache(s), mouth pain, sore throat, vertigo, other Cardiovascular: PRESENT: dyspnea on exertion Respiratory: PRESENT: cough, dyspnea, sputum Gastrointestinal: PRESENT: diarrhea, nausea, vomiting Genitourinary: ABSENT: dysuria, hematuria Musculoskeletal: ABSENT: joint swelling Integumentary: ABSENT: rash, wounds Neurological: ABSENT: abnormal gait, abnormal speech, confusion, dizziness, focal weakness, syncope Psychiatric: PRESENT: anxiety Endocrine: ABSENT: cold intolerance, heat intolerance, polydipsia, polyuria Hematologic/Lymphatic: ABSENT: easy bleeding, easy bruising, lymphadenopathy Allergic/Immunologic: ABSENT: seasonal rhinorrhea Physical Exam Vital Signs: Temp Pulse Resp BP Pulse Ox 98.5 F 85 18 99/56 L 95 08/09/18 03:56 08/09/18 04:17 08/09/18 04:17 08/09/18 04:52 08/09/18 04:17 Intake & Output 08/08/18 08/09/18 08/10/18 06:59 06:59 06:59 Intake Total 200 Balance 200 Weight 45.5 kg General appearance: PRESENT: mild distress - o supplemetal oxygen vi nasal cannula, thin Head exam: PRESENT: atraumatic, normocephalic Eye exam: PRESENT: conjunctiva pink, EOMI, PERRLA. ABSENT: scleral icterus Ear exam: PRESENT: normal external ear exam Mouth exam: PRESENT: moist Neck exam: PRESENT: full ROM. ABSENT: carotid bruit, JVD, lymphadenopathy, thyromegaly Respiratory exam: PRESENT: crackles - scattered, decreased breath sounds, rhonchi, wheezes Cardiovascular exam: PRESENT: +S1, +S2, tachycardia. ABSENT: diastolic murmur, systolic murmur Vascular exam: ABSENT: pallor GI/Abdominal exam: PRESENT: normal bowel sounds, soft. ABSENT: distended, guard ing, mass, organolmegaly, rebound, tenderness Rectal exam: PRESENT: deferred Extremities exam: ABSENT: pedal edema Neurological exam: PRESENT: alert, awake, oriented to person, oriented to place, oriented to time, oriented to situation, CN II-XII grossly intact. ABSENT: motor sensory deficit Psychiatric exam: PRESENT: appropriate affect, normal mood. ABSENT: homicidal ideation, suicidal ideation Skin exam: PRESENT: dry, warm Results Laboratory Results: 08/08/18 18:00 08/08/18 18:00 08/08/18 08/08/18 08/08/18 17:20 18:00 18:00 WBC 50.3 H* RBC 4.21 Hgb 11.4 L Hct 36.3 MCV 86 MCH 27.2 MCHC 31.4 L RDW 19.8 H Plt Count 504 H Seg Neutrophils % Not Reportable Lymphocytes % Not Reportable Monocytes % Not Reportable Eosinophils % Not Reportable Basophils % Not Reportable Absolute Neutrophils Not Reportable Absolute Lymphocytes Not Reportable Absolute Monocytes Not Reportable Absolute Eosinophils Not Reportable Absolute Basophils Not Reportable Carbonic Acid HCO3/H2CO3 Ratio ABG pH ABG pCO2 ABG pO2 ABG HCO3 ABG O2 Saturation ABG Base Excess FiO2 Sodium 132.8 L Potassium 3.5 L Chloride 101 Carbon Dioxide 19 L Anion Gap 13 BUN 18 Creatinine 1.16 Est GFR ( Amer) 55 L Est GFR (Non-Af Amer) 46 L Glucose 138 H Calcium 9.5 Total Bilirubin 0.4 AST 22 ALT 10 Alkaline Phosphatase 111 Total Protein 8.0 Albumin 3.4 L Urine Color YELLOW Urine Appearance SLIGHTLY-CLOUDY Urine pH 5.0 Ur Specific [place] 1.015 Urine Protein 30 H Urine Glucose (UA) NEGATIVE Urine Ketones NEGATIVE Urine Blood NEGATIVE Urine Nitrite NEGATIVE Ur Leukocyte Esterase SMALL H Urine WBC (Auto) 33 Urine RBC (Auto) 1 08/08/18 22:00 WBC RBC Hgb Hct MCV MCH MCHC RDW Plt Count Seg Neutrophils % Lymphocytes % Monocytes % Eosinophils % Basophils % Absolute Neutrophils Absolute Lymphocytes Absolute Monocytes Absolute Eosinophils Absolute Basophils Carbonic Acid 1.08 HCO3/H2CO3 Ratio 20:1 ABG pH 7.40 ABG pCO2 35.9 ABG pO2 80.9 ABG HCO3 21.6 ABG O2 Saturation 96.0 ABG Base Excess -2.7 FiO2 2L Sodium Potassium Chloride Carbon Dioxide Anion Gap BUN Creatinine Est GFR ( Amer) Est GFR (Non-Af Amer) Glucose Calcium Total Bilirubin AST ALT Alkaline Phosphatase Total Protein Albumin Urine Color Urine Appearance Urine pH Ur Specific [place] Urine Protein Urine Glucose (UA) Urine Ketones Urine Blood Urine Nitrite Ur Leukocyte Esterase Urine WBC (Auto) Urine RBC (Auto) 08/08/18 08/08/18 18:00 18:00 Creatine Kinase 22 L CK-MB (CK-2) 0.52 Troponin I < 0.012 NT-Pro-B Natriuret Pep 2800 H Impressions: Chest X-Ray 08/08/18 16:32 IMPRESSION: Obstructive lung disease with pulmonary fibrosis at both bases. Huge central pulmonary arteries from pulmonary hypertension. No acute infiltrates. Assessment & Plan - Diagnosis (1) Acute exacerbation of chronic obstructive pulmonary disease (COPD) Is this a current diagnosis for this admission?: Yes Plan: See admitting attending physician orders for details about care plan. (2) Leucocytosis Qualifiers: Leukocytosis type: unspecified Qualified Code(s): D72.829 - Elevated white blood cell count, unspecified Is this a current diagnosis for this admission?: Yes Plan: See admitting attending physician orders for details about care plan. (3) Nausea and vomiting Qualifiers: Vomiting Intractability: non-intractable Is this a current diagnosis for this admission?: Yes Plan: See admitting attending physician orders for details about care plan. (4) End stage chronic obstructive pulmonary disease Is this a current diagnosis for this admission?: Yes Plan: See admitting attending physician orders for details about care plan. (5) Cardiac dysrhythmia Qualifiers: Arrhythmia type: unspecified cardiac arrhythmia Qualified Code(s): I49.9 - Cardiac arrhythmia, unspecified Is this a current diagnosis for this admission?: Yes Plan: See admitting attending physician orders for details about care plan. (6) Chronic pulmonary embolism Qualifiers: Pulmonary embolism type: unspecified Acute cor pulmonale presence: without acute cor pulmonale Qualified Code(s): I27.82 - Chronic pulmonary embolism Is this a current diagnosis for this admission?: Yes Plan: See admitting attending physician orders for details about care plan. (7) HTN (hypertension) Qualifiers: Hypertension type: essential hypertension Qualified Code(s): I10 - Essential (primary) hypertension Is this a current diagnosis for this admission?: Yes Plan: See admitting attending physician orders for details about care plan. (8) HLD (hyperlipidemia) Qualifiers: Hyperlipidemia type: pure hypercholesterolemia Qualified Code(s): E78.00 - Pure hypercholesterolemia, unspecified Is this a current diagnosis for this admission?: Yes Plan: See admitting attending physician orders for details about care plan. (9) GERD (gastroesophageal reflux disease) Qualifiers: Esophagitis presence: without esophagitis Qualified Code(s): K21.9 - Gastro-esophageal reflux disease without esophagitis Is this a current diagnosis for this admission?: Yes Plan: See admitting attending physician orders for details about care plan. (10) Chronic pain syndrome Is this a current diagnosis for this admission?: Yes Plan: See admitting attending physician orders for details about care plan. (11) Long-term current use of opiate analgesic Is this a current diagnosis for this admission?: Yes Plan: See admitting attending physician orders for details about care plan. (12) Mixed anxiety and depressive disorder Is this a current diagnosis for this admission?: Yes Plan: See admitting attending physician orders for details about care plan. - Time Time Spent: 50 to 70 Minutes Medications reviewed and adjusted accordingly: Yes Anticipated discharge: Home with Homehealth Within: Other - Inpatient Certification Based on my medical assessment, after consideration of the patient's comorbidities, presenting symptoms, or acuity I expect that the services needed warrant INPATIENT care.: Yes I certify that my determination is in accordance with my understanding of Medicare's requirements for reasonable and necessary INPATIENT services [42 CFR 412.3e].: Yes Medical Necessity: Significant Comorbidiites Make Outpatient Treatment Too R isky, Need Close Monitoring Due to Risk of Patient Decompensation, Need For IV Fluids, Need For Continuous Telemetry Monitoring, Need for IV Antibiotics, Risk of Complication if Not Cared For in Hospital, Risk of Diagnosis Which Will Require Inpatient Eval/Care/Monitoring Post Hospital Care: D/C Windows 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
--- NOTE | 2018-08-09 20:37 | ADVANCED CARE ---
- Diagnosis (1) Acute exacerbation of chronic obstructive pulmonary disease (COPD) Diagnosis Current: Yes (2) Leucocytosis Diagnosis Current: Yes (3) Nausea and vomiting Diagnosis Current: Yes (4) End stage chronic obstructive pulmonary disease Diagnosis Current: Yes (5) Cardiac dysrhythmia Diagnosis Current: Yes (6) Chronic pulmonary embolism Diagnosis Current: Yes (7) HTN (hypertension) Diagnosis Current: Yes (8) HLD (hyperlipidemia) Diagnosis Current: Yes (9) GERD (gastroesophageal reflux disease) Diagnosis Current: Yes (10) Chronic pain syndrome Diagnosis Current: Yes (11) Long-term current use of opiate analgesic Diagnosis Current: Yes (12) Mixed anxiety and depressive disorder Diagnosis Current: Yes Attendance: Patient, assigned nursing staff, and daughter via telephone. Resuscitation Status: Full Code Discussion: I discussed resuscitation options with patient and daughter, Julisa Dueñas, at this time she is a full code status. Care Planning Goals: Active treatment for her acute condition. Document(s) Completed: Order for full code status. She completed a MOST form during her prior admission at this hospital. Time Spent: 15-30 mins
[2018-08-09] MEDS: DILTIAZEM HCL 180 MG CAPSULE.CR PO SCH (21:47)
[2018-08-09] MEDS: ACETAZOLAMIDE 250 MG TABLET PO SCH (21:48)
[2018-08-09] MEDS: ROFLUMILAST 500 MCG TABLET PO SCH (21:48)
[2018-08-09] MEDS: LEVOFLOXACIN 250 MG/D5W RTU 250 MG/50 ML RTUPB IV SCH (21:51)
[2018-08-09] MEDS ORDERED: (PENDING PHARMACY ID) (Ropinirole Hcl [Requip] 1 MG) PO SCH (22:00)
[2018-08-09] MEDS: OXYCODONE-ACETAMINOPHEN 5-325 MG TABLET PO SCH (22:00)
[2018-08-09] MEDS ORDERED: (PENDING PHARMACY ID) (Diltiazem Hcl [Diltiazem 24hr Cd] 180 MG) PO SCH (22:00)
[2018-08-09] MEDS ORDERED: (PENDING PHARMACY ID) (Buspirone Hcl [Buspar 15 Mg Tablet] 7.5 MG) PO SCH (22:00)
[2018-08-09] MEDS ORDERED: ROFLUMILAST 500 MG PO SCH (22:00)
[2018-08-09] MEDS ORDERED: (PENDING PHARMACY ID) (Oxycodone Hcl/Acetaminophen [Endocet 7.5-325 Mg Tablet] 1 TAB) PO SCH (22:00)
[2018-08-09] MEDS: OXYCODONE HCL IR 5 MG TABLET PO SCH (22:00)
[2018-08-09] MEDS: ZOLPIDEM TARTRATE 5 MG TABLET PO PRN (22:05)
[2018-08-09] MEDS ORDERED: NALOXONE NASL PRN (23:45)
[2018-08-10] MEDS: LEVALBUTEROL HCL NEB 1.25 MG/3 ML AMPUL NEB SCH ×12 (00:18→23:45)
[2018-08-10] MEDS: OXYCODONE HCL IR 5 MG TABLET PO SCH ×3 (05:56→21:50)
[2018-08-10] MEDS: OXYCODONE-ACETAMINOPHEN 5-325 MG TABLET PO SCH ×3 (05:57→21:49)
[2018-08-10] MEDS: METHYLPREDNISOLONE INJ 125 MG/2 ML SDV IV SCH ×3 (05:57→21:51)
[2018-08-10 06:37] LABS: HEMATOCRIT 31.7 % (36.0-47.0); HEMOGLOBIN 9.9 g/dL (12.0-15.5); MEAN CORPUSCULAR HEMOGLOBIN 26.7 pg (27.0-33.4); MEAN CORPUSCULAR HGB CONC 31.4 g/dL (32.0-36.0); MEAN CORPUSCULAR VOLUME 85 fl (80-97); PLATELET COUNT 402 10^3/uL (150-450); RED BLOOD COUNT 3.72 10^6/uL (3.72-5.28); RED CELL DISTRIBUTION WIDTH 20.3 % (11.5-14.0)
[2018-08-10 06:42] LABS: WHITE BLOOD COUNT 40.6 10^3/uL (4.0-10.5)
[2018-08-10 06:50] LABS: ALANINE AMINOTRANSFERASE 8 U/L (9-52); ALBUMIN 2.9 g/dL (3.5-5.0); ALKALINE PHOSPHATASE 83 U/L (38-126); ANION GAP 10 (5-19); ASPARTATE AMINO TRANSFERASE 14 U/L (14-36); BILIRUBIN,DIRECT 0.2 mg/dL (0.0-0.4); BILIRUBIN,TOTAL 0.2 mg/dL (0.2-1.3); BLOOD UREA NITROGEN 27 mg/dL (7-20); CALCIUM 9.7 mg/dL (8.4-10.2); CARBON DIOXIDE 20 mmol/L (22-30); CHLORIDE 103 mmol/L (98-107); GLUCOSE 145 mg/dL (75-110); POTASSIUM 3.8 mmol/L (3.6-5.0); SODIUM 133.4 mmol/L (137-145); TOTAL PROTEIN 6.8 g/dL (6.3-8.2)
[2018-08-10 07:04] LABS: ABSOLUTE LYMPHOCYTES# (MANUAL) 0.4 10^3/uL (0.5-4.7); ABSOLUTE MONOCYTES # (MANUAL) 1.6 10^3/uL (0.1-1.4); ANISOCYTOSIS 2+; BAND NEUTROPHILS % (MANUAL) 3 % (3-5); BASOPHILS % (MANUAL) 0 % (0-2); EOSINOPHILS % (MANUAL) 0 % (0-6); LYMPHOCYTES % (MANUAL) 1 % (13-45); MONOCYTES % (MANUAL) 4 % (3-13); SEGMENTED NEUTROPHILS % (MAN) 92 % (42-78); TOTAL CELLS COUNTED 100
[2018-08-10 07:05] LABS: PLATELET COMMENT ADEQUATE
[2018-08-10] MEDS ORDERED: (PENDING PHARMACY ID) (Citalopram Hydrobromide [Celexa 40 Mg Tablet] 40 MG) PO SCH (10:00)
[2018-08-10] MEDS: FAMOTIDINE 20 MG TABLET PO SCH ×2 (10:23→17:48)
[2018-08-10] MEDS: DILTIAZEM HCL 180 MG CAPSULE.CR PO SCH ×2 (10:23→21:50)
[2018-08-10] MEDS: CITALOPRAM HYDROBROMIDE 20 MG TABLET PO SCH (10:23)
[2018-08-10] MEDS: CEFEPIME 1 GM/D5W RTU 1 GM/50 ML RTUPB IV SCH ×2 (10:23→21:51)
[2018-08-10] MEDS: ACETAZOLAMIDE 250 MG TABLET PO SCH ×2 (10:26→21:51)
--- NOTE | 2018-08-10 17:18 | PDOC PROGRESS REPORT ---
Subjective Progress Note for:: 08/10/18 Subjective:: Breathing is improving but continue to have productive cough. No significant diarrhea since last clinical evaluation. No abdominal pain, nausea, or vomiting. Reason For Visit: EXACERBATED COPD;PROBABLE SEPSIS Physical Exam Vital Signs: Temp Pulse Resp BP Pulse Ox 98.3 F 72 18 115/44 L 96 08/10/18 12:16 08/10/18 15:52 08/10/18 15:52 08/10/18 12:16 08/10/18 15:52 Intake & Output 08/09/18 08/10/18 08/11/18 06:59 06:59 06:59 Intake Total 200 150 50 Output Total 500 Balance 200 -350 50 Weight 45.5 kg 51.6 kg General appearance: PRESENT: mild distress - with use of supplemental oxygen via nasal cannula. Head exam: PRESENT: atraumatic, normocephalic Eye exam: PRESENT: conjunctiva pink. ABSENT: scleral icterus Ear exam: PRESENT: normal external ear exam Mouth exam: PRESENT: moist Respiratory exam: PRESENT: crackles, decreased breath sounds - at lung bases, rhonchi - expiratory phase Cardiovascular exam: PRESENT: RRR. ABSENT: diastolic murmur, rubs, systolic murmur Vascular exam: ABSENT: pallor GI/Abdominal exam: PRESENT: normal bowel sounds, soft. ABSENT: distended, guarding, mass, organolmegaly, rebound, tenderness Extremities exam: ABSENT: pedal edema Neurological exam: PRESENT: alert, awake, oriented to person, oriented to place, oriented to time, oriented to situation, CN II-XII grossly intact. ABSENT: motor sensory deficit Psychiatric exam: PRESENT: appropriate affect, normal mood. ABSENT: homicidal ideation, suicidal ideation Skin exam: PRESENT: dry, warm Results Laboratory Results: 08/10/18 06:19 08/10/18 06:19 08/10/18 08/10/18 06:19 06:19 WBC 40.6 H* RBC 3.72 Hgb 9.9 L Hct 31.7 L MCV 85 MCH 26.7 L MCHC 31.4 L RDW 20.3 H Plt Count 402 Seg Neutrophils % Not Reportable Lymphocytes % Not Reportable Monocytes % Not Reportable Eosinophils % Not Reportable Basophils % Not Reportable Absolute Neutrophils Not Reportable Absolute Lymphocytes Not Reportable Absolute Monocytes Not Reportable Absolute Eosinophils Not Reportable Absolute Basophils Not Reportable Sodium 133.4 L Potassium 3.8 Chloride 103 Carbon Dioxide 20 L Anion Gap 10 BUN 27 H Creatinine 1.00 Est GFR ( Amer) > 60 Est GFR (Non-Af Amer) 54 L Glucose 145 H Calcium 9.7 Total Bilirubin 0.2 AST 14 ALT 8 L Alkaline Phosphatase 83 Total Protein 6.8 Albumin 2.9 L 08/08/18 08/08/18 18:00 18:00 Creatine Kinase 22 L CK-MB (CK-2) 0.52 Troponin I < 0.012 NT-Pro-B Natriuret Pep 2800 H Impressions: Chest X-Ray 08/08/18 16:32 IMPRESSION: Obstructive lung disease with pulmonary fibrosis at both bases. Huge central pulmonary arteries from pulmonary hypertension. No acute infiltrates. Assessment & Plan - Diagnosis (1) Leucocytosis Qualifiers: Leukocytosis type: unspecified Qualified Code(s): D72.829 - Elevated white blood cell count, unspecified Is this a current diagnosis for this admission?: Yes (2) Acute exacerbation of chronic obstructive pulmonary disease (COPD) Is this a current diagnosis for this admission?: Yes (3) Nausea and vomiting Qualifiers: Vomiting Intractability: non-intractable Is this a current diagnosis for this admission?: Yes (4) End stage chronic obstructive pulmonary disease Is this a current diagnosis for this admission?: Yes (5) Cardiac dysrhythmia Qualifiers: Arrhythmia type: unspecified cardiac arrhythmia Qualified Code(s): I49.9 - Cardiac arrhythmia, unspecified Is this a current diagnosis for this admission?: Yes (6) Chronic pulmonary embolism Qualifiers: Pulmonary embolism type: unspecified Acute cor pulmonale presence: without acute cor pulmonale Qualified Code(s): I27.82 - Chronic pulmonary embolism Is this a current diagnosis for this admission?: Yes (7) HTN (hypertension) Qualifiers: Hypertension type: essential hypertension Qualified Code(s): I10 - Essential (primary) hypertension Is this a current diagnosis for this admission?: Yes (8) HLD (hyperlipidemia) Qualifiers: Hyperlipidemia type: pure hypercholesterolemia Qualified Code(s): E78.00 - Pure hypercholesterolemia, unspecified Is this a current diagnosis for this admission?: Yes (9) GERD (gastroesophageal reflux disease) Qualifiers: Esophagitis presence: without esophagitis Qualified Code(s): K21.9 - Gastro-esophageal reflux disease without esophagitis Is this a current diagnosis for this admission?: Yes (10) Chronic pain syndrome Is this a current diagnosis for this admission?: Yes (11) Long-term current use of opiate analgesic Is this a current diagnosis for this admission?: Yes (12) Mixed anxiety and depressive disorder Is this a current diagnosis for this admission?: Yes (13) UTI (urinary tract infection), bacterial Is this a current diagnosis for this admission?: Yes Plan: Continue IV Cefepime and Levofloxacin coverage. Follow up on organism identification and sensitivity. - Time Time Spent with patient: 25-34 minutes Medications reviewed and adjusted accordingly: Yes Anticipated discharge: Home with Homehealth Within: Other - Inpatient Certification Based on my medical assessment, after consideration of the patient's comorbidi ties, presenting symptoms, or acuity I expect that the services needed warrant INPATIENT care.: Yes I certify that my determination is in accordance with my understanding of Darci scherer's requirements for reasonable and necessary INPATIENT services [42 CFR 412.3e].: Yes Medical Necessity: Significant Comorbidiites Make Outpatient Treatment Too Risky, Need Close Monitoring Due to Risk of Patient Decompensation, Need For Continuous Telemetry Monitoring, Need for IV Antibiotics, Risk of Complication if Not Cared For in Hospital, Risk of Diagnosis Which Will Require Inpatient Eval/Care/Monitoring Post Hospital Care: D/C Sourcing Internship Documentation - Plan Summary Plan Summary: Continue current medication management. Emphasized compliance with BiPAP usage when sleeping. Patient is requesting for bedside commode upon discharge.
[2018-08-10] MEDS: MONTELUKAST SODIUM 10 MG TABLET PO SCH (17:48)
[2018-08-10] MEDS: ROFLUMILAST 500 MCG TABLET PO SCH (21:50)
[2018-08-10] MEDS: LEVOFLOXACIN 250 MG/D5W RTU 250 MG/50 ML RTUPB IV SCH (22:51)
[2018-08-11] MEDS: ALPRAZOLAM 0.5 MG TABLET PO PRN ×2 (00:04→22:21)
[2018-08-11] MEDS: OXYCODONE HCL IR 5 MG TABLET PO SCH ×3 (05:27→23:27)
[2018-08-11] MEDS: OXYCODONE-ACETAMINOPHEN 5-325 MG TABLET PO SCH ×3 (05:27→23:28)
[2018-08-11] MEDS: METHYLPREDNISOLONE INJ 125 MG/2 ML SDV IV SCH ×2 (05:27→14:37)
[2018-08-11] MEDS: DILTIAZEM HCL 180 MG CAPSULE.CR PO SCH ×2 (11:40→22:20)
[2018-08-11] MEDS: CEFEPIME 1 GM/D5W RTU 1 GM/50 ML RTUPB IV SCH ×2 (11:40→22:20)
[2018-08-11] MEDS: CITALOPRAM HYDROBROMIDE 20 MG TABLET PO SCH (11:40)
[2018-08-11] MEDS: FAMOTIDINE 20 MG TABLET PO SCH ×2 (11:40→18:26)
[2018-08-11] MEDS: ACETAZOLAMIDE 250 MG TABLET PO SCH ×2 (11:41→22:22)
[2018-08-11] MEDS: LEVALBUTEROL HCL NEB 1.25 MG/3 ML AMPUL NEB SCH ×3 (14:38→22:21)
--- NOTE | 2018-08-11 15:18 | PDOC PROGRESS REPORT ---
Subjective Progress Note for:: 08/11/18 Subjective:: Patient denied ongoing diarrhea. No abdominal pain, nausea, or vomiting. She continue to experience cough and productive cough. No fever or chills. Reason For Visit: EXACERBATED COPD;PROBABLE SEPSIS Physical Exam Vital Signs: Temp Pulse Resp BP Pulse Ox 97.5 F 76 23 H 111/38 L 97 08/11/18 04:02 08/11/18 07:00 08/11/18 04:02 08/11/18 04:02 08/11/18 09:20 Intake & Output 08/10/18 08/11/18 08/12/18 06:59 06:59 06:59 Intake Total 150 1450 480 Output Total 500 1275 250 Balance -350 175 230 Weight 51.6 kg 50.6 kg Physical Exam: General appearance: PRESENT: mild distress - with use of supplemental oxygen via nasal cannula. Head exam: PRESENT: atraumatic, normocephalic Eye exam: PRESENT: conjunctiva pink. ABSENT: pallor, scleral icterus Ear exam: PRESENT: normal external ear exam Mouth exam: PRESENT: moist Respiratory exam: PRESENT: crackles, decreased breath sounds - at lung bases, rhonchi - expiratory phase Cardiovascular exam: PRESENT: RRR. ABSENT: diastolic murmur, rubs, systolic murmur GI/Abdominal exam: PRESENT: normal bowel sounds, soft. ABSENT: distended, guarding, mass, organomegaly, rebound, tenderness Extremities exam: ABSENT: pedal edema Neurological exam: PRESENT: alert, awake, oriented to person, oriented to place, oriented to time, oriented to situation, CN II-XII grossly intact. ABSENT: motor sensory deficit Psychiatric exam: PRESENT: appropriate affect, normal mood. ABSENT: homicidal ideation, suicidal ideation Skin exam: PRESENT: dry, warm Results Laboratory Results: 08/10/18 06:19 08/10/18 06:19 08/08/18 17:20 Clean Catch Midstream Urine Culture - Final Klebsiella Pneumoniae 08/08/18 08/08/18 18:00 18:00 Creatine Kinase 22 L CK-MB (CK-2) 0.52 Troponin I < 0.012 NT-Pro-B Natriuret Pep 2800 H Impressions: Chest X-Ray 08/08/18 16:32 IMPRESSION: Obstructive lung disease with pulmonary fibrosis at both bases. Huge central pulmonary arteries from pulmonary hypertension. No acute infiltrates. Assessment & Plan - Diagnosis (1) Leucocytosis Qualifiers: Leukocytosis type: unspecified Qualified Code(s): D72.829 - Elevated white blood cell count, unspecified Is this a current diagnosis for this admission?: Yes (2) Acute exacerbation of chronic obstructive pulmonary disease (COPD) Is this a current diagnosis for this admission?: Yes (3) Nausea and vomiting Qualifiers: Vomiting Intractability: non-intractable Is this a current diagnosis for this admission?: Yes (4) End stage chronic obstructive pulmonary disease Is this a current diagnosis for this admission?: Yes (5) Cardiac dysrhythmia Qualifiers: Arrhythmia type: unspecified cardiac arrhythmia Qualified Code(s): I49.9 - Cardiac arrhythmia, unspecified Is this a current diagnosis for this admission?: Yes (6) Chronic pulmonary embolism Qualifiers: Pulmonary embolism type: unspecified Acute cor pulmonale presence: without acute cor pulmonale Qualified Code(s): I27.82 - Chronic pulmonary embolism Is this a current diagnosis for this admission?: Yes (7) HTN (hypertension) Qualifiers: Hypertension type: essential hypertension Qualified Code(s): I10 - Essential (primary) hypertension Is this a current diagnosis for this admission?: Yes (8) HLD (hyperlipidemia) Qualifiers: Hyperlipidemia type: pure hypercholesterolemia Qualified Code(s): E78.00 - Pure hypercholesterolemia, unspecified Is this a current diagnosis for this admission?: Yes (9) GERD (gastroesophageal reflux disease) Qualifiers: Esophagitis presence: without esophagitis Qualified Code(s): K21.9 - Gastro -esophageal reflux disease without esophagitis Is this a current diagnosis for this admission?: Yes (10) Chronic pain syndrome Is this a current diagnosis for this admission?: Yes (11) Long-term current use of opiate analgesic Is this a current diagnosis for this admission?: Yes (12) Mixed anxiety and depressive disorder Is this a current diagnosis for this admission?: Yes (13) UTI (urinary tract infection), bacterial Is this a current diagnosis for this admission?: Yes - Time Time Spent with patient: 25-34 minutes Medications reviewed and adjusted accordingly: Yes Anticipated discharge: Home with Homehealth Within: Other - Inpatient Certification Based on my medical assessment, after consideration of the patient's comorbidities, presenting symptoms, or acuity I expect that the services needed warrant INPATIENT care.: Yes I certify that my determination is in accordance with my understanding of Medicare's requirements for reasonable and necessary INPATIENT services [42 CFR 412.3e].: Yes Medical Necessity: Significant Comorbidiites Make Outpatient Treatment Too Risky, Need Close Monitoring Due to Risk of Patient Decompensation, Need For Continuous Telemetry Monitoring, Need for IV Antibiotics, Risk of Complication if Not Cared For in Hospital, Risk of Diagnosis Which Will Require Inpatient Eval/Care/Monitoring Post Hospital Care: D/C 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 Maintain on IV Cefepime and Levofloxacin coverage. Continue all other current medication management.
[2018-08-11] MEDS: MONTELUKAST SODIUM 10 MG TABLET PO SCH (18:26)
[2018-08-11] MEDS ORDERED: METHYLPREDNISOLONE INJ 125 MG/2 ML SDV IV SCH (22:00)
[2018-08-11] MEDS: METHYLPREDNISOLONE INJ 40 MG/1 ML SDV IV SCH (22:21)
[2018-08-11] MEDS: ROFLUMILAST 500 MCG TABLET PO SCH (22:21)
[2018-08-11] MEDS: ZOLPIDEM TARTRATE 5 MG TABLET PO PRN (22:21)
[2018-08-11] MEDS: LEVOFLOXACIN 250 MG/D5W RTU 250 MG/50 ML RTUPB IV SCH (22:22)
[2018-08-12 04:46] LABS: HEMATOCRIT 33.8 % (36.0-47.0); HEMOGLOBIN 10.5 g/dL (12.0-15.5); MEAN CORPUSCULAR HGB CONC 31.2 g/dL (32.0-36.0); MEAN CORPUSCULAR VOLUME 87 fl (80-97); PLATELET COUNT 479 10^3/uL (150-450); RED BLOOD COUNT 3.91 10^6/uL (3.72-5.28); RED CELL DISTRIBUTION WIDTH 19.7 % (11.5-14.0)
[2018-08-12 05:00] LABS: ALANINE AMINOTRANSFERASE 10 U/L (9-52); ALBUMIN 2.9 g/dL (3.5-5.0); ALKALINE PHOSPHATASE 93 U/L (38-126); ANION GAP 8 (5-19); ASPARTATE AMINO TRANSFERASE 14 U/L (14-36); BILIRUBIN,DIRECT 0.1 mg/dL (0.0-0.4); BILIRUBIN,TOTAL 0.1 mg/dL (0.2-1.3); BLOOD UREA NITROGEN 29 mg/dL (7-20); CALCIUM 9.9 mg/dL (8.4-10.2); CARBON DIOXIDE 23 mmol/L (22-30); CHLORIDE 108 mmol/L (98-107); GLUCOSE 124 mg/dL (75-110); SODIUM 138.7 mmol/L (137-145); TOTAL PROTEIN 6.8 g/dL (6.3-8.2)
[2018-08-12 05:07] LABS: ABSOLUTE LYMPHOCYTES# (MANUAL) 0.7 10^3/uL (0.5-4.7); ABSOLUTE MONOCYTES # (MANUAL) 1.3 10^3/uL (0.1-1.4); BAND NEUTROPHILS % (MANUAL) 7 % (3-5); BASOPHILS % (MANUAL) 0 % (0-2); EOSINOPHILS % (MANUAL) 0 % (0-6); LYMPHOCYTES % (MANUAL) 5 % (13-45); MONOCYTES % (MANUAL) 9 % (3-13); SEGMENTED NEUTROPHILS % (MAN) 79 % (42-78); TOTAL CELLS COUNTED 100
[2018-08-12 05:09] LABS: ANISOCYTOSIS 1+; HYPOCHROMASIA 1+; PLATELET COMMENT ADEQUATE; POLYCHROMASIA 1+
[2018-08-12] MEDS: LEVALBUTEROL HCL NEB 1.25 MG/3 ML AMPUL NEB SCH ×4 (05:30→22:22)
[2018-08-12] MEDS: OXYCODONE HCL IR 5 MG TABLET PO SCH ×3 (05:41→23:16)
[2018-08-12] MEDS: METHYLPREDNISOLONE INJ 40 MG/1 ML SDV IV SCH ×3 (05:43→22:21)
[2018-08-12] MEDS: OXYCODONE-ACETAMINOPHEN 5-325 MG TABLET PO SCH ×3 (05:43→23:16)
[2018-08-12] MEDS: CITALOPRAM HYDROBROMIDE 20 MG TABLET PO SCH (09:21)
[2018-08-12] MEDS: DILTIAZEM HCL 180 MG CAPSULE.CR PO SCH ×2 (09:21→22:21)
[2018-08-12] MEDS: ACETAZOLAMIDE 250 MG TABLET PO SCH ×2 (09:21→22:22)
[2018-08-12] MEDS: CEFEPIME 1 GM/D5W RTU 1 GM/50 ML RTUPB IV SCH ×2 (09:22→22:20)
[2018-08-12] MEDS: FAMOTIDINE 20 MG TABLET PO SCH ×2 (09:22→17:19)
--- NOTE | 2018-08-12 13:06 | PDOC PROGRESS REPORT ---
Subjective Progress Note for:: 08/12/18 Subjective:: Patient continue to coughing with minimal expectoration. Patient denied diarrhea, abdominal pain, nausea, or vomiting. No fever or chills. Reason For Visit: EXACERBATED COPD;PROBABLE SEPSIS Physical Exam Vital Signs: Temp Pulse Resp BP Pulse Ox 97.6 F 59 L 18 126/53 H 92 08/12/18 08:45 08/12/18 08:45 08/12/18 08:45 08/12/18 08:45 08/12/18 08:45 Intake & Output 08/11/18 08/12/18 08/13/18 06:59 06:59 06:59 Intake Total 1450 990 50 Output Total 1275 1590 Balance 175 -600 50 Weight 50.6 kg 50.7 kg Physical Exam: General appearance: PRESENT: mild distress - with use of supplemental oxygen via nasal cannula. Head exam: PRESENT: atraumatic, normocephalic Eye exam: PRESENT: conjunctiva pink. ABSENT: pallor, scleral icterus Ear exam: PRESENT: normal external ear exam Mouth exam: PRESENT: moist Respiratory exam: PRESENT: crackles, decreased breath sounds - at lung bases, rhonchi - expiratory phase Cardiovascular exam: PRESENT: RRR. ABSENT: diastolic murmur, rubs, systolic murmur GI/Abdominal exam: PRESENT: normal bowel sounds, soft. ABSENT: distended, guarding, mass, organomegaly, rebound, tenderness Extremities exam: ABSENT: pedal edema Neurological exam: PRESENT: alert, awake, oriented to person, oriented to place, oriented to time, oriented to situation, CN II-XII grossly intact. ABSENT: motor sensory deficit Psychiatric exam: PRESENT: appropriate affect, normal mood. ABSENT: homicidal ideation, suicidal ideation Skin exam: PRESENT: dry, warm Results Laboratory Results: 08/12/18 04:24 08/12/18 04:24 08/12/18 08/12/18 04:24 04:24 WBC 14.0 H RBC 3.91 Hgb 10.5 L Hct 33.8 L MCV 87 MCH 27.0 MCHC 31.2 L RDW 19.7 H Plt Count 479 H Seg Neutrophils % Not Reportable Lymphocytes % Not Reportable Monocytes % Not Reportable Eosinophils % Not Reportable Basophils % Not Reportable Absolute Neutrophils Not Reportable Absolute Lymphocytes Not Reportable Absolute Monocytes Not Reportable Absolute Eosinophils Not Reportable Absolute Basophils Not Reportable Sodium 138.7 Potassium 4.0 Chloride 108 H Carbon Dioxide 23 Anion Gap 8 BUN 29 H Creatinine 0.99 Est GFR ( Amer) > 60 Est GFR (Non-Af Amer) 55 L Glucose 124 H Calcium 9.9 Total Bilirubin 0.1 L AST 14 ALT 10 Alkaline Phosphatase 93 Total Protein 6.8 Albumin 2.9 L 08/08/18 17:20 Clean Catch Midstream Urine Culture - Final Klebsiella Pneumoniae 08/08/18 08/08/18 18:00 18:00 Creatine Kinase 22 L CK-MB (CK-2) 0.52 Troponin I < 0.012 NT-Pro-B Natriuret Pep 2800 H Impressions: Chest X-Ray 08/08/18 16:32 IMPRESSION: Obstructive lung disease with pulmonary fibrosis at both bases. Huge central pulmonary arteries from pulmonary hypertension. No acute infiltrates. Assessment & Plan - Diagnosis (1) UTI due to Klebsiella species Is this a current diagnosis for this admission?: Yes Plan: Continue current antibiotic therapy. (2) Acute exacerbation of chronic obstructive pulmonary disease (COPD) Is this a current diagnosis for this admission?: Yes (3) End stage chronic obstructive pulmonary disease Is this a current diagnosis for this admission?: Yes (4) Cardiac dysrhythmia Qualifiers: Arrhythmia type: unspecified cardiac arrhythmia Qualified Code(s): I49.9 - Cardiac arrhythmia, unspecified Is this a current diagnosis for this admission?: Yes (5) Chronic pulmonary embolism Qualifiers: Pulmonary embolism type: unspecified Acute cor pulmonale presence: without acute cor pulmonale Qualified Code(s): I27.82 - Chronic pulmonary embolism Is this a current diagnosis for this admission?: Yes (6) HTN (hypertension) Qualifiers: Hypertension type: essential hypertension Qualified Code(s): I10 - Essential (primary) hypertension Is this a current diagnosis for this admission?: Yes (7) HLD (hyperlipidemia) Qualifiers: Hyperlipidemia type: pure hypercholesterolemia Qualified Code(s): E78.00 - Pure hypercholesterolemia, unspecified Is this a current diagnosis for this admission?: Yes (8) GERD (gastroesophageal reflux disease) Qualifiers: Esophagitis presence: without esophagitis Qualified Code(s): K21.9 - Gastro-esophageal reflux disease without esophagitis Is this a current diagnosis for this admission?: Yes (9) Chronic pain syndrome Is this a current diagnosis for this admission?: Yes (10) Long-term current use of opiate analgesic Is this a current diagnosis for this admission?: Yes (11) Mixed anxiety and depressive disorder Is this a current diagnosis for this admission?: Yes - Time Time Spent with patient: 25-34 minutes Medications reviewed and adjusted accordingly: Yes Anticipated discharge: Home with Homehealth Within: Other - Inpatient Certification Based on my medical assessment, after consideration of the patient's comorbidities, presenting symptoms, or acuity I expect that the services needed warrant INPATIENT care.: Yes I certify that my determination is in accordance with my understanding of Medicare's requirements for reasonable and necessary INPATIENT services [42 CFR 412.3e].: Yes Medical Necessity: Significant Comorbidiites Make Outpatient Treatment Too Risky, Need Close Monitoring Due to Risk of Patient Decompensation, Need For IV Fluids, Need For Continuous Telemetry Monitoring, Need for Nebulizer Therapy and Monitoring of Response, Need for IV Antibiotics, Risk of Complication if Not Cared For in Hospital, Risk of Diagnosis Which Will Require Inpatient Eval/Care/Monitoring Post Hospital Care: D/C Shine Worker Documentation - Plan Summary Plan Summary: Continue IV antibiotic coverage. Decrease IV Solu Medrol to 40 mg q 12 hours.
[2018-08-12] MEDS: MONTELUKAST SODIUM 10 MG TABLET PO SCH (17:19)
[2018-08-12] MEDS: LEVOFLOXACIN 250 MG/D5W RTU 250 MG/50 ML RTUPB IV SCH (22:20)
[2018-08-12] MEDS: ALPRAZOLAM 0.5 MG TABLET PO PRN (22:21)
[2018-08-12] MEDS: ROFLUMILAST 500 MCG TABLET PO SCH (22:21)
[2018-08-12] MEDS: ZOLPIDEM TARTRATE 5 MG TABLET PO PRN (22:21)
[2018-08-13] MEDS: METHYLPREDNISOLONE INJ 40 MG/1 ML SDV IV SCH ×3 (05:43→22:45)
[2018-08-13] MEDS: OXYCODONE HCL IR 5 MG TABLET PO SCH ×3 (05:44→22:44)
[2018-08-13] MEDS: OXYCODONE-ACETAMINOPHEN 5-325 MG TABLET PO SCH ×3 (05:44→22:44)
[2018-08-13] MEDS: LEVALBUTEROL HCL NEB 1.25 MG/3 ML AMPUL NEB SCH ×4 (05:45→20:16)
[2018-08-13] MEDS: FAMOTIDINE 20 MG TABLET PO SCH ×2 (09:44→17:22)
[2018-08-13] MEDS: CEFEPIME 1 GM/D5W RTU 1 GM/50 ML RTUPB IV SCH ×2 (09:44→21:40)
[2018-08-13] MEDS: DILTIAZEM HCL 180 MG CAPSULE.CR PO SCH ×2 (09:44→21:41)
[2018-08-13] MEDS: ACETAZOLAMIDE 250 MG TABLET PO SCH ×2 (09:44→22:45)
[2018-08-13] MEDS: CITALOPRAM HYDROBROMIDE 20 MG TABLET PO SCH (09:44)
[2018-08-13] MEDS: MONTELUKAST SODIUM 10 MG TABLET PO SCH (17:22)
--- NOTE | 2018-08-13 18:01 | PDOC PROGRESS REPORT ---
Subjective Progress Note for:: 08/13/18 Subjective:: Patient reported less coughing and improvement in her breathing. Patient denied diarrhea, abdominal pain, nausea, or vomiting. No fever or chills. Reason For Visit: EXACERBATED COPD;PROBABLE SEPSIS Physical Exam Vital Signs: Temp Pulse Resp BP Pulse Ox 97.5 F 66 16 116/51 L 98 08/13/18 12:14 08/13/18 13:34 08/13/18 13:34 08/13/18 12:14 08/13/18 13:34 Intake & Output 08/12/18 08/13/18 08/14/18 06:59 06:59 06:59 Intake Total 990 1340 50 Output Total 1590 1450 Balance -600 -110 50 Weight 50.7 kg 50.5 kg Physical Exam: General appearance: PRESENT: mild distress - with use of supplemental oxygen via nasal cannula. Head exam: PRESENT: atraumatic, normocephalic Eye exam: PRESENT: conjunctiva pink. ABSENT: pallor, scleral icterus Ear exam: PRESENT: normal external ear exam Mouth exam: PRESENT: moist Respiratory exam: PRESENT: crackles, decreased breath sounds - at lung bases, rhonchi - expiratory phase Cardiovascular exam: PRESENT: RRR. ABSENT: diastolic murmur, rubs, systolic murmur GI/Abdominal exam: PRESENT: normal bowel sounds, soft. ABSENT: distended, guarding, mass, organomegaly, rebound, tenderness Extremities exam: ABSENT: pedal edema Neurological exam: PRESENT: alert, awake, oriented to person, oriented to place, oriented to time, oriented to situation, CN II-XII grossly intact. ABSENT: motor sensory deficit Psychiatric exam: PRESENT: appropriate affect, normal mood. ABSENT: homicidal ideation, suicidal ideation Skin exam: PRESENT: dry, warm Results Laboratory Results: 08/12/18 04:24 08/12/18 04:24 08/12/18 08:15 Sputum Gram Stain - Final 08/12/18 08:15 Sputum Sputum Culture - Final 08/08/18 08/08/18 18:00 18:00 Creatine Kinase 22 L CK-MB (CK-2) 0.52 Troponin I < 0.012 NT-Pro-B Natriuret Pep 2800 H Impressions: Chest X-Ray 08/08/18 16:32 IMPRESSION: Obstructive lung disease with pulmonary fibrosis at both bases. Huge central pulmonary arteries from pulmonary hypertension. No acute infiltrates. Assessment & Plan - Diagnosis (1) UTI due to Klebsiella species Is this a current diagnosis for this admission?: Yes (2) Acute exacerbation of chronic obstructive pulmonary disease (COPD) Is this a current diagnosis for this admission?: Yes (3) End stage chronic obstructive pulmonary disease Is this a current diagnosis for this admission?: Yes (4) Cardiac dysrhythmia Qualifiers: Arrhythmia type: unspecified cardiac arrhythmia Qualified Code(s): I49.9 - Cardiac arrhythmia, unspecified Is this a current diagnosis for this admission?: Yes (5) Chronic pulmonary embolism Qualifiers: Pulmonary embolism type: unspecified Acute cor pulmonale presence: without acute cor pulmonale Qualified Code(s): I27.82 - Chronic pulmonary embolism Is this a current diagnosis for this admission?: Yes (6) HTN (hypertension) Qualifiers: Hypertension type: essential hypertension Qualified Code(s): I10 - Essenti al (primary) hypertension Is this a current diagnosis for this admission?: Yes (7) HLD (hyperlipidemia) Qualifiers: Hyperlipidemia type: pure hypercholesterolemia Qualified Code(s): E78.00 - Pure hypercholesterolemia, unspecified Is this a current diagnosis for this admission?: Yes (8) GERD (gastroesophageal reflux disease) Qualifiers: Esophagitis presence: without esophagitis Qualified Code(s): K21.9 - Gastro-esophageal reflux disease without esophagitis Is this a current diagnosis for this admission?: Yes (9) Chronic pain syndrome Is this a current diagnosis for this admission?: Yes (10) Long-term current use of opiate analgesic Is this a current diagnosis for this admission?: Yes (11) Mixed anxiety and depressive disorder Is this a current diagnosis for this admission?: Yes - Time Time Spent with patient: 25-34 minutes Medications reviewed and adjusted accordingly: Yes Anticipated discharge: Home with Homehealth Within: Other - Inpatient Certification Based on my medical assessment, after consideration of the patient's comorbidities, presenting symptoms, or acuity I expect that the services needed warrant INPATIENT care.: Yes I certify that my determination is in accordance with my understanding of Medicare's requirements for reasonable and necessary INPATIENT services [42 CFR 412.3e].: Yes Medical Necessity: Significant Comorbidiites Make Outpatient Treatment Too Risky, Need Close Monitoring Due to Risk of Patient Decompensation, Need For Continuous Telemetry Monitoring, Need for IV Antibiotics, Risk of Complication if Not Cared For in Hospital, Risk of Diagnosis Which Will Require Inpatient Eval/Care/Monitoring Post Hospital Care: D/C New Order Clerk Documentation - Plan Summary Plan Summary: Continue current medication management. Encouraged use of bedside flutter device.
[2018-08-13] MEDS: ENOXAPARIN SODIUM INJ 40 MG/0.4 ML DISP.SYRIN SUBCUT SCH (21:40)
[2018-08-13] MEDS: ALPRAZOLAM 0.5 MG TABLET PO PRN (21:41)
[2018-08-13] MEDS: ROFLUMILAST 500 MCG TABLET PO SCH (21:41)
[2018-08-13] MEDS: ZOLPIDEM TARTRATE 5 MG TABLET PO PRN (21:41)
[2018-08-13] MEDS: LEVOFLOXACIN 250 MG/D5W RTU 250 MG/50 ML RTUPB IV SCH (21:42)
[2018-08-14] MEDS: LEVALBUTEROL HCL NEB 1.25 MG/3 ML AMPUL NEB SCH ×4 (01:48→20:25)
[2018-08-14] MEDS: OXYCODONE-ACETAMINOPHEN 5-325 MG TABLET PO SCH ×3 (05:34→22:32)
[2018-08-14] MEDS: OXYCODONE HCL IR 5 MG TABLET PO SCH ×3 (05:35→22:32)
[2018-08-14] MEDS: METHYLPREDNISOLONE INJ 40 MG/1 ML SDV IV SCH ×2 (05:35→14:27)
[2018-08-14] MEDS: FAMOTIDINE 20 MG TABLET PO SCH ×2 (10:15→17:23)
[2018-08-14] MEDS: CEFEPIME 1 GM/D5W RTU 1 GM/50 ML RTUPB IV SCH ×2 (10:15→21:39)
[2018-08-14] MEDS: ALPRAZOLAM 0.5 MG TABLET PO PRN ×2 (10:15→21:38)
[2018-08-14] MEDS: ACETAZOLAMIDE 250 MG TABLET PO SCH ×2 (10:15→21:39)
[2018-08-14] MEDS: DILTIAZEM HCL 180 MG CAPSULE.CR PO SCH ×2 (10:15→21:38)
[2018-08-14] MEDS: CITALOPRAM HYDROBROMIDE 20 MG TABLET PO SCH (10:16)
--- NOTE | 2018-08-14 14:46 | PDOC PROGRESS REPORT ---
Subjective Progress Note for:: 08/14/18 Subjective:: Patient continue to experience intermittent coughing with minimal sputum production. Usage of flutter device fair to aide expectoration. Patient denied diarrhea, abdominal pain, nausea, or vomiting. No fever or chills. Reason For Visit: EXACERBATED COPD;PROBABLE SEPSIS Physical Exam Vital Signs: Temp Pulse Resp BP Pulse Ox 97.7 F 95 20 134/57 H 96 08/14/18 12:01 08/14/18 12:01 08/14/18 12:01 08/14/18 12:01 08/14/18 12:01 Intake & Output 08/13/18 08/14/18 08/15/18 06:59 06:59 06:59 Intake Total 1340 990 50 Output Total 1450 2050 Balance -110 -1060 50 Weight 50.5 kg 51.7 kg Physical Exam: General appearance: PRESENT: mild distress - with use of supplemental oxygen via nasal cannula. Head exam: PRESENT: atraumatic, normocephalic Eye exam: PRESENT: conjunctiva pink. ABSENT: pallor, scleral icterus Ear exam: PRESENT: normal external ear exam Mouth exam: PRESENT: moist Respiratory exam: PRESENT: crackles, decreased breath sounds - at lung bases, rhonchi - expiratory phase Cardiovascular exam: PRESENT: RRR. ABSENT: diastolic murmur, rubs, systolic murmur GI/Abdominal exam: PRESENT: normal bowel sounds, soft. ABSENT: distended, guarding, mass, organomegaly, rebound, tenderness Extremities exam: ABSENT: pedal edema Neurological exam: PRESENT: alert, awake, oriented to person, oriented to place, oriented to time, oriented to situation, CN II-XII grossly intact. ABSENT: motor sensory deficit Psychiatric exam: PRESENT: appropriate affect, normal mood. ABSENT: homicidal ideation, suicidal ideation Skin exam: PRESENT: dry, warm Results Laboratory Results: 08/12/18 04:24 08/12/18 04:24 08/08/18 23:30 Blood Blood Culture - Final NO GROWTH IN 5 DAYS 08/08/18 18:00 Blood Blood Culture - Final NO GROWTH IN 5 DAYS 08/12/18 08:15 Sputum Gram Stain - Final 08/12/18 08:15 Sputum Sputum Culture - Final 08/08/18 08/08/18 18:00 18:00 Creatine Kinase 22 L CK-MB (CK-2) 0.52 Troponin I < 0.012 NT-Pro-B Natriuret Pep 2800 H Impressions: Chest X-Ray 08/08/18 16:32 IMPRESSION: Obstructive lung disease with pulmonary fibrosis at both bases. Huge central pulmonary arteries from pulmonary hypertension. No acute infiltrates. Assessment & Plan - Diagnosis (1) UTI due to Klebsiella species Is this a current diagnosis for this admission?: Yes (2) Acute exacerbation of chronic obstructive pulmonary disease (COPD) Is this a current diagnosis for this admission?: Yes (3) End stage chronic obstructive pulmonary disease Is this a current diagnosis for this admission?: Yes (4) Cardiac dysrhythmia Qualifiers: Arrhythmia type: unspecified cardiac arrhythmia Qualified Code(s): I49.9 - Cardiac arrhythmia, unspecified Is this a current diagnosis for this admission?: Yes (5) Chronic pulmonary embolism Qualifiers: Pulmonary embolism type: unspecified Acute cor pulmonale presence: without acute cor pulmonale Qualified Code(s): I27.82 - Chronic pulmonary embolism Is this a current diagnosis for this admission?: Yes (6) HTN (hypertension) Qualifiers: Hypertension type: essential hypertension Qualified Code(s): I10 - Essential (primary) hypertension Is this a current diagnosis for this admission?: Yes (7) HLD (hyperlipidemia) Qualifiers: Hyperlipidemia type: pure hypercholesterolemia Qualified Code(s): E78.00 - Pure hypercholesterolemia, unspecified Is this a current diagnosis for this admission?: Yes (8) GERD (gastroesophageal reflux disease) Qualifiers: Esophagitis presence: without esophagitis Qualified Code(s): K21.9 - Gastro-esophageal reflux disease without esophagitis Is this a current diagnosis for this admission?: Yes (9) Chronic pain syndrome Is this a current diagnosis for this admission?: Yes (10) Long-term current use of opiate analgesic Is this a current diagnosis for this admission?: Yes (11) Mixed anxiety and depressive disorder Is this a current diagnosis for this admission?: Yes - Time Time Spent with patient: 25-34 minutes Medications reviewed and adjusted accordingly: Yes Anticipated discharge: Home with Homehealth Within: Other - Inpatient Certification Based on my medical assessment, after consideration of the patient's comorbidities, presenting symptoms, or acuity I expect that the services needed warrant INPATIENT care.: Yes I certify that my determination is in accordance with my understanding of Medicare's requirements for reasonable and necessary INPATIENT services [42 CFR 412.3e].: Yes Medical Necessity: Significant Comorbidiites Make Outpatient Treatment Too Risky, Need Close Monitoring Due to Risk of Patient Decompensation, Need For Continuous Telemetry Monitoring, Need for IV Antibiotics, Risk of Complication if Not Cared For in Hospital, Risk of Diagnosis Which Will Require Inpatient Eval/Care/Monitoring Post Hospital Care: D/C Poultry Farm Worker Documentation - Plan Summary Plan Summary: Transition IV Levofloxacin to oral route at 250 mg p.o daily. Consider oral Cefdinir upon discharge. Obtain CBC with diff and CMP in am.
[2018-08-14] MEDS: MONTELUKAST SODIUM 10 MG TABLET PO SCH (17:23)
[2018-08-14] MEDS ORDERED: NORMAL SALINE 1000 ML 2,000 ML IV PRN (20:08)
[2018-08-14] MEDS: ENOXAPARIN SODIUM INJ 40 MG/0.4 ML DISP.SYRIN SUBCUT SCH (20:17)
[2018-08-14] MEDS ORDERED: DEXTROSE 50%-WATER SYRINGE 12.5 GM/25 ML DOSE IV PRN (20:30)
[2018-08-14] MEDS ORDERED: DEXTROSE 50%-WATER SYRINGE 25 GM/50 ML DOSE IV PRN (20:30)
[2018-08-14] MEDS ORDERED: INSULIN, REGULAR 100 UNIT/100 ML NORMAL SALINE IV PRN ×2 (20:30)
[2018-08-14] MEDS ORDERED: DEXTROSE 40% GEL 15 GM TUBE PO PRN (20:30)
[2018-08-14] MEDS ORDERED: GLUCAGON,HUMAN RECOMB 1 MG INJ IM PRN (20:30)
[2018-08-14] MEDS ORDERED: DEXTROSE 40% GEL 15 GM TUBE X 2 PO PRN (20:30)
[2018-08-14] MEDS: ZOLPIDEM TARTRATE 5 MG TABLET PO PRN (21:38)
[2018-08-14] MEDS: ROFLUMILAST 500 MCG TABLET PO SCH (21:38)
[2018-08-14] MEDS ORDERED: LEVOFLOXACIN 250 MG TABLET PO SCH (22:00)
[2018-08-15] MEDS: LEVALBUTEROL HCL NEB 1.25 MG/3 ML AMPUL NEB SCH ×4 (02:11→19:39)
[2018-08-15] MEDS: OXYCODONE-ACETAMINOPHEN 5-325 MG TABLET PO SCH ×3 (05:15→21:34)
[2018-08-15] MEDS: OXYCODONE HCL IR 5 MG TABLET PO SCH ×3 (05:15→21:34)
[2018-08-15 05:52] LABS: HEMATOCRIT 31.9 % (36.0-47.0); MEAN CORPUSCULAR HEMOGLOBIN 26.6 pg (27.0-33.4); MEAN CORPUSCULAR HGB CONC 31.2 g/dL (32.0-36.0); MEAN CORPUSCULAR VOLUME 85 fl (80-97); PLATELET COUNT 510 10^3/uL (150-450); RED BLOOD COUNT 3.75 10^6/uL (3.72-5.28); RED CELL DISTRIBUTION WIDTH 20.2 % (11.5-14.0)
[2018-08-15 05:59] LABS: WHITE BLOOD COUNT 31.5 10^3/uL (4.0-10.5)
[2018-08-15 06:06] LABS: ALANINE AMINOTRANSFERASE 28 U/L (9-52); ALBUMIN 2.6 g/dL (3.5-5.0); ALKALINE PHOSPHATASE 67 U/L (38-126); ANION GAP 5 (5-19); ASPARTATE AMINO TRANSFERASE 20 U/L (14-36); BILIRUBIN,DIRECT 0.1 mg/dL (0.0-0.4); BILIRUBIN,TOTAL 0.1 mg/dL (0.2-1.3); BLOOD UREA NITROGEN 35 mg/dL (7-20); CALCIUM 9.2 mg/dL (8.4-10.2); CARBON DIOXIDE 27 mmol/L (22-30); CHLORIDE 103 mmol/L (98-107); GLUCOSE 145 mg/dL (75-110); POTASSIUM 4.4 mmol/L (3.6-5.0); SODIUM 135.3 mmol/L (137-145); TOTAL PROTEIN 5.7 g/dL (6.3-8.2)
[2018-08-15 06:19] LABS: ABSOLUTE LYMPHOCYTES# (MANUAL) 2.8 10^3/uL (0.5-4.7); ABSOLUTE MONOCYTES # (MANUAL) 4.4 10^3/uL (0.1-1.4); BAND NEUTROPHILS % (MANUAL) 5 % (3-5); BASOPHILS % (MANUAL) 0 % (0-2); EOSINOPHILS % (MANUAL) 0 % (0-6); LYMPHOCYTES % (MANUAL) 9 % (13-45); MONOCYTES % (MANUAL) 14 % (3-13); SEGMENTED NEUTROPHILS % (MAN) 72 % (42-78); TOTAL CELLS COUNTED 100
[2018-08-15 06:20] LABS: ANISOCYTOSIS 3+; HYPOCHROMASIA 3+; PLATELET COMMENT INCREASED
[2018-08-15] MEDS: ALPRAZOLAM 0.5 MG TABLET PO PRN (06:35)
--- NOTE | 2018-08-15 08:00 | PDOC PROGRESS REPORT ---
Subjective Progress Note for:: 08/15/18 Subjective:: Patient denied definite diarrhea but no constipation. Her increase WBC may be due to recurrent C.difficile colitis. Patient denied abdominal pain, nausea, or vomiting. No fever or chills. No chest pain. Breathing remain stable on supplemental oxygen via nasal cannula. Reason For Visit: EXACERBATED COPD;PROBABLE SEPSIS Physical Exam Vital Signs: Temp Pulse Resp BP Pulse Ox 98.2 F 68 20 130/54 H 99 08/15/18 03:06 08/15/18 03:06 08/15/18 03:06 08/15/18 03:06 08/15/18 03:06 Intake & Output 08/14/18 08/15/18 08/16/18 06:59 06:59 06:59 Intake Total 990 1520 Output Total 2050 2350 Balance -1060 -830 Weight 51.7 kg 52.5 kg Physical Exam: General appearance: PRESENT: mild distress - with use of supplemental oxygen via nasal cannula. Head exam: PRESENT: atraumatic, normocephalic Eye exam: PRESENT: conjunctiva pink. ABSENT: pallor, scleral icterus Ear exam: PRESENT: normal external ear exam Mouth exam: PRESENT: moist Respiratory exam: PRESENT: crackles, decreased breath sounds - at lung bases, rhonchi - expiratory phase Cardiovascular exam: PRESENT: RRR. ABSENT: diastolic murmur, rubs, systolic murmur GI/Abdominal exam: PRESENT: normal bowel sounds, soft. ABSENT: distended, guarding, mass, organomegaly, rebound, tenderness Extremities exam: ABSENT: pedal edema Neurological exam: PRESENT: alert, awake, oriented to person, oriented to place, oriented to time, oriented to situation, CN II-XII grossly intact. ABSENT: motor sensory deficit Psychiatric exam: PRESENT: appropriate affect, normal mood. ABSENT: homicidal ideation, suicidal ideation Skin exam: PRESENT: dry, warm Results Laboratory Results: 08/15/18 05:24 08/15/18 05:24 08/15/18 08/15/18 05:24 05:24 WBC 31.5 H* RBC 3.75 Hgb 10.0 L Hct 31.9 L MCV 85 MCH 26.6 L MCHC 31.2 L RDW 20.2 H Plt Count 510 H Seg Neutrophils % Not Reportable Lymphocytes % Not Reportable Monocytes % Not Reportable Eosinophils % Not Reportable Basophils % Not Reportable Absolute Neutrophils Not Reportable Absolute Lymphocytes Not Reportable Absolute Monocytes Not Reportable Absolute Eosinophils Not Reportable Absolute Basophils Not Reportable Sodium 135.3 L Potassium 4.4 Chloride 103 Carbon Dioxide 27 Anion Gap 5 BUN 35 H Creatinine 0.79 Est GFR ( Amer) > 60 Est GFR (Non-Af Amer) > 60 Glucose 145 H Calcium 9.2 Total Bilirubin 0.1 L AST 20 ALT 28 Alkaline Phosphatase 67 Total Protein 5.7 L Albumin 2.6 L 08/08/18 08/08/18 18:00 18:00 Creatine Kinase 22 L CK-MB (CK-2) 0.52 Troponin I < 0.012 NT-Pro-B Natriuret Pep 2800 H Impressions: Chest X-Ray 08/08/18 16:32 IMPRESSION: Obstructive lung disease with pulmonary fibrosis at both bases. Huge central pulmonary arteries from pulmonary hypertension. No acute infiltrates. Assessment & Plan - Diagnosis (1) UTI due to Klebsiella species Is this a current diagnosis for this admission?: Yes (2) Acute exacerbation of chronic obstructive pulmonary disease (COPD) Is this a current diagnosis for this admission?: Yes (3) End stage chronic obstructive pulmonary disease Is this a current diagnosis for this admission?: Yes (4) Cardiac dysrhythmia Qualifiers: Arrhythmia type: unspecified cardiac arrhythmia Qualified Code(s): I49.9 - Cardiac arrhythmia, unspecified Is this a current diagnosis for this admission?: Yes (5) Chronic pulmonary embolism Qualifiers: Pulmonary embolism type: unspecified Acute cor pulmonale presence: without acute cor pulmonale Qualified Code(s): I27.82 - Chronic pulmonary embolism Is this a current diagnosis for this admission?: Yes (6) HTN (hypertension) Qualifiers: Hypertension type: essential hypertension Qualified Code(s): I10 - Essential (primary) hypertension Is this a current diagnosis for this admission?: Yes (7) HLD (hyperlipidemia) Qualifiers: Hyperlipidemia type: pure hypercholesterolemia Qualified Code(s): E78.00 - Pure hypercholesterolemia, unspecified Is this a current diagnosis for this admission?: Yes (8) GERD (gastroesophageal reflux disease) Qualifiers: Esophagitis presence: without esophagitis Qualified Code(s): K21.9 - Gastro-esophageal reflux disease without esophagitis Is this a current diagnosis for this admission?: Yes (9) Chronic pain syndrome Is this a current diagnosis for this admission?: Yes (10) Long-term current use of opiate analgesic Is this a current diagnosis for this admission?: Yes (11) Mixed anxiety and depressive disorder Is this a current diagnosis for this admission?: Yes - Time Time Spent with patient: 25-34 minutes Medications reviewed and adjusted accordingly: Yes Anticipated discharge: Home with Homehealth Within: Other - Inpatient Certification Based on my medical assessment, after consideration of the patient's comorbidities, presenting symptoms, or acuity I expect that the services needed warrant INPATIENT care.: Yes I certify that my determination is in accordance with my understanding of Medicare's requirements for reasonable and necessary INPATIENT services [42 CFR 412.3e].: Yes Medical Necessity: Significant Comorbidiites Make Outpatient Treatment Too Risky, Need Close Monitoring Due to Risk of Patient Decompensation, Need For Continuous Telemetry Monitoring, Need for Nebulizer Therapy and Monitoring of Response, Need for IV Antibiotics, Risk of Complication if Not Cared For in Hospital, Risk of Diagnosis Which Will Require Inpatient Eval/Care/Monitoring Post Hospital Care: D/C Metallurgical Technician Documentation - Plan Summary Plan Summary: D/C IV Cefepime and oral Levofloxacin. Decrease Prednisone to 10 mg po daily. Start on Dificil therapy fr presumed recurrent C.difficile colitis.
[2018-08-15] MEDS: PREDNISONE 10 MG TABLET PO SCH (09:44)
[2018-08-15] MEDS: FAMOTIDINE 20 MG TABLET PO SCH ×2 (09:44→21:33)
[2018-08-15] MEDS: DILTIAZEM HCL 180 MG CAPSULE.CR PO SCH ×2 (09:44→21:34)
[2018-08-15] MEDS: ACETAZOLAMIDE 250 MG TABLET PO SCH ×2 (09:45→21:35)
[2018-08-15] MEDS: CITALOPRAM HYDROBROMIDE 20 MG TABLET PO SCH (09:45)
[2018-08-15] MEDS: FIDAXOMICIN 200 MG TABLET PO SCH ×2 (10:00→21:34)
[2018-08-15] MEDS ORDERED: PREDNISONE 20 MG TABLET PO SCH ×2 (10:00)
--- NOTE | 2018-08-15 14:07 | RADIOLOGY REPORT (SQ) ---
EXAM DESCRIPTION: CHEST 2 VIEWS COMPLETED DATE/TIME: 08/15/2018 1:25 pm REASON FOR STUDY: COPD with leukocytosis r/o airspace disease proces COMPARISON: CT angio chest 03/08/2018 Chest films 04/02/2018, 05/01/2018, 05/31/2018, 08/08/2018 EXAM PARAMETERS: NUMBER OF VIEWS: two views TECHNIQUE: Digital Frontal and Lateral radiographic views of the chest acquired. RADIATION DOSE: NA LIMITATIONS: none FINDINGS: LUNGS AND PLEURA: Obstructive lung disease with hyperlucency and hyperinflation. Bandlike scarring in the right upper lobe and left lateral costophrenic sulcus. No fluffy alveolar infiltrat es worrisome for edema or pneumonia. No pleural effusion or pneumothorax MEDIASTINUM AND HILAR STRUCTURES: No masses or contour abnormalities. HEART AND VASCULAR STRUCTURES: No cardiomegaly BONES: Old right humeral neck fracture HARDWARE: Right permanent central line tip superior vena cava. Left-sided pacemaker OTHER: No other significant finding. IMPRESSION: Obstructive lung disease. No acute findings TECHNICAL DOCUMENTATION: JOB ID: [id number] [employer]- All Rights Reserved Reading location - IP/workstation name: [email or web address]
[2018-08-15] MEDS: MONTELUKAST SODIUM 10 MG TABLET PO SCH (21:33)
[2018-08-15] MEDS: ENOXAPARIN SODIUM INJ 40 MG/0.4 ML DISP.SYRIN SUBCUT SCH (21:34)
[2018-08-15] MEDS: ROFLUMILAST 500 MCG TABLET PO SCH (21:34)
[2018-08-16] MEDS: LEVALBUTEROL HCL NEB 1.25 MG/3 ML AMPUL NEB SCH ×4 (01:59→20:18)
[2018-08-16] MEDS: OXYCODONE-ACETAMINOPHEN 5-325 MG TABLET PO SCH ×2 (05:28→14:13)
[2018-08-16] MEDS: OXYCODONE HCL IR 5 MG TABLET PO SCH ×2 (05:29→14:13)
[2018-08-16 05:48] LABS: HEMATOCRIT 33.4 % (36.0-47.0); HEMOGLOBIN 10.3 g/dL (12.0-15.5); MEAN CORPUSCULAR HEMOGLOBIN 26.7 pg (27.0-33.4); MEAN CORPUSCULAR HGB CONC 30.8 g/dL (32.0-36.0); MEAN CORPUSCULAR VOLUME 87 fl (80-97); PLATELET COUNT 515 10^3/uL (150-450); RED BLOOD COUNT 3.86 10^6/uL (3.72-5.28); RED CELL DISTRIBUTION WIDTH 20.7 % (11.5-14.0); WHITE BLOOD COUNT 26.8 10^3/uL (4.0-10.5)
[2018-08-16 05:59] LABS: BLOOD UREA NITROGEN 30 mg/dL (7-20); CALCIUM 9.1 mg/dL (8.4-10.2); CHLORIDE 103 mmol/L (98-107); GLUCOSE 102 mg/dL (75-110); POTASSIUM 4.8 mmol/L (3.6-5.0)
[2018-08-16 06:05] LABS: CARBON DIOXIDE 31 mmol/L (22-30); SODIUM 135.8 mmol/L (137-145)
[2018-08-16 06:07] LABS: ANION GAP 2 (5-19)
[2018-08-16 06:27] LABS: ABSOLUTE LYMPHOCYTES# (MANUAL) 5.1 10^3/uL (0.5-4.7); ABSOLUTE MONOCYTES # (MANUAL) 1.9 10^3/uL (0.1-1.4); BAND NEUTROPHILS % (MANUAL) 2 % (3-5); BASOPHILS % (MANUAL) 0 % (0-2); EOSINOPHILS % (MANUAL) 0 % (0-6); LYMPHOCYTES % (MANUAL) 19 % (13-45); METAMYELOCYTES % (MANUAL) 2 % (0); MONOCYTES % (MANUAL) 7 % (3-13); SEGMENTED NEUTROPHILS % (MAN) 68 % (42-78); TOTAL CELLS COUNTED 100
[2018-08-16 06:29] LABS: MYELOCYTES % (MANUAL) 2 % (0); TOXIC VACUOLATION PRESENT
[2018-08-16 06:30] LABS: ANISOCYTOSIS 2+; HYPOCHROMASIA SLIGHT; OVALOCYTES SLIGHT; PLATELET CLUMPS PRESENT; PLATELET COMMENT INCREASED; POIKILOCYTOSIS SLIGHT; POLYCHROMASIA SLIGHT; TOXIC GRANULATION SLIGHT
--- NOTE | 2018-08-16 08:09 | PDOC PROGRESS REPORT ---
Subjective Progress Note for:: 08/16/18 Subjective:: Patient denied diarrhea nor constipation. No abdominal pain, nausea, or vomiting. No chest pain. Breathing remain stable on supplemental oxygen via nasal cannula. No fever or chills. Reason For Visit: EXACERBATED COPD;PROBABLE SEPSIS Physical Exam Vital Signs: Temp Pulse Resp BP Pulse Ox 98.4 F 64 16 119/54 L 100 08/16/18 03:03 08/16/18 07:40 08/16/18 07:40 08/16/18 03:03 08/16/18 07:40 Intake & Output 08/15/18 08/16/18 08/17/18 06:59 06:59 06:59 Intake Total 1520 1978 Output Total 2350 2800 Balance -830 -822 Weight 52.5 kg 51.3 kg Physical Exam: General appearance: PRESENT: mild distress - with use of supplemental oxygen via nasal cannula. Head exam: PRESENT: atraumatic, normocephalic Eye exam: PRESENT: conjunctiva pink. ABSENT: pallor, scleral icterus Ear exam: PRESENT: normal external ear exam Mouth exam: PRESENT: moist Respiratory exam: PRESENT: crackles, decreased breath sounds - at lung bases, rhonchi - expiratory phase Cardiovascular exam: PRESENT: RRR. ABSENT: diastolic murmur, rubs, systolic murmur GI/Abdominal exam: PRESENT: normal bowel sounds, soft. ABSENT: distended, gu arding, mass, organomegaly, rebound, tenderness Extremities exam: ABSENT: pedal edema Neurological exam: PRESENT: alert, awake, oriented to person, oriented to place, oriented to time, oriented to situation, CN II-XII grossly intact. ABSENT: motor sensory deficit Psychiatric exam: PRESENT: appropriate affect, normal mood. ABSENT: homicidal ideation, suicidal ideation Skin exam: PRESENT: dry, warm Results Laboratory Results: 08/16/18 05:29 08/16/18 05:29 08/16/18 08/16/18 05:29 05:29 WBC 26.8 H RBC 3.86 Hgb 10.3 L Hct 33.4 L MCV 87 MCH 26.7 L MCHC 30.8 L RDW 20.7 H Plt Count 515 H Seg Neutrophils % Not Reportable Lymphocytes % Not Reportable Monocytes % Not Reportable Eosinophils % Not Reportable Basophils % Not Reportable Absolute Neutrophils Not Reportable Absolute Lymphocytes Not Reportable Absolute Monocytes Not Reportable Absolute Eosinophils Not Reportable Absolute Basophils Not Reportable Sodium 135.8 L Potassium 4.8 Chloride 103 Carbon Dioxide 31 H Anion Gap 2 L BUN 30 H Creatinine 0.75 Est GFR ( Amer) > 60 Est GFR (Non-Af Amer) > 60 Glucose 102 Calcium 9.1 08/08/18 08/08/18 18:00 18:00 Creatine Kinase 22 L CK-MB (CK-2) 0.52 Troponin I < 0.012 NT-Pro-B Natriuret Pep 2800 H Impressions: Chest X-Ray 08/15/18 00:00 IMPRESSION: Obstructive lung disease. No acute findings Assessment & Plan - Diagnosis (1) UTI due to Klebsiella species Is this a current diagnosis for this admission?: Yes (2) Acute exacerbation of chronic obstructive pulmonary disease (COPD) Is this a current diagnosis for this admission?: Yes (3) End stage chronic obstructive pulmonary disease Is this a current diagnosis for this admission?: Yes (4) Cardiac dysrhythmia Qualifiers: Arrhythmia type: unspecified cardiac arrhythmia Qualified Code(s): I49.9 - Cardiac arrhythmia, unspecified Is this a current diagnosis for this admission?: Yes (5) Chronic pulmonary embolism Qualifiers: Pulmonary embolism type: unspecified Acute cor pulmonale presence: without acute cor pulmonale Qualified Code(s): I27.82 - Chronic pulmonary embolism Is this a current diagnosis for this admission?: Yes (6) HTN (hypertension) Qualifiers: Hypertension type: essential hypertension Qualified Code(s): I10 - Essential (primary) hypertension Is this a current diagnosis for this admission?: Yes (7) HLD (hyperlipidemia) Qualifiers: Hyperlipidemia type: pure hypercholesterolemia Qualified Code(s): E78.00 - Pure hypercholesterolemia, unspecified Is this a current diagnosis for this admission?: Yes (8) GERD (gastroesophageal reflux disease) Qualifiers: Esophagitis presence: without esophagitis Qualified Code(s): K21.9 - Gastro-esophageal reflux disease without esophagitis Is this a current diagnosis for this admission?: Yes (9) Chronic pain syndrome Is this a current diagnosis for this admission?: Yes (10) Long-term current use of opiate analgesic Is this a current diagnosis for this admission?: Yes (11) Mixed anxiety and depressive disorder Is this a current diagnosis for this admission?: Yes - Time Time Spent with patient: 25-34 minutes Medications reviewed and adjusted accordingly: Yes Anticipated discharge: Home with Homehealth Within: Other - Inpatient Certification Based on my medical assessment, after consideration of the patient's comorbidities, presenting symptoms, or acuity I expect that the services needed warrant INPATIENT care.: Yes I certify that my determination is in accordance with my understanding of Medicare's requirements for reasonable and necessary INPATIENT services [42 CFR 412.3e].: Yes Medical Necessity: Significant Comorbidiites Make Outpatient Treatment Too Risky, Need Close Monitoring Due to Risk of Patient Decompensation, Need For Continuous Telemetry Monitoring, Risk of Complication if Not Cared For in Hospital, Risk of Diagnosis Which Will Require Inpatient Eval/Care/Monitoring 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 Taper Prednisone to 7.5mg po daily. Continue other current medication management.
[2018-08-16] MEDS: FIDAXOMICIN 200 MG TABLET PO SCH ×2 (09:52→21:43)
[2018-08-16] MEDS: CITALOPRAM HYDROBROMIDE 20 MG TABLET PO SCH (09:52)
[2018-08-16] MEDS: ACETAZOLAMIDE 250 MG TABLET PO SCH ×2 (09:52→21:43)
[2018-08-16] MEDS: ALPRAZOLAM 0.5 MG TABLET PO PRN (09:53)
[2018-08-16] MEDS: FAMOTIDINE 20 MG TABLET PO SCH ×2 (09:53→17:49)
[2018-08-16] MEDS: PREDNISONE 10 MG TABLET PO SCH (09:53)
[2018-08-16] MEDS: DILTIAZEM HCL 180 MG CAPSULE.CR PO SCH ×2 (09:53→21:43)
[2018-08-16 10:12] LABS: PATH REVIEW PATHOLOGIST REVIEWED
[2018-08-16] MEDS: MONTELUKAST SODIUM 10 MG TABLET PO SCH (17:49)
[2018-08-16] MEDS: ENOXAPARIN SODIUM INJ 40 MG/0.4 ML DISP.SYRIN SUBCUT SCH (21:43)
[2018-08-16] MEDS: ROFLUMILAST 500 MCG TABLET PO SCH (21:43)
[2018-08-17] MEDS: LEVALBUTEROL HCL NEB 1.25 MG/3 ML AMPUL NEB SCH ×4 (02:08→20:08)
--- NOTE | 2018-08-17 08:26 | PDOC PROGRESS REPORT ---
Subjective Progress Note for:: 08/17/18 Subjective:: Patient denied diarrhea nor constipation. Her stool C. difficile toxin was reported positive. She will remain on oral Dificid treatment. No abdominal pain, nausea, or vomiting. No fever or chills. No chest pain. Breathing remain stable on supplemental oxygen via nasal cannula. She reported lower back and leg pain with request for opiate medication management for pain. Reason For Visit: EXACERBATED COPD;PROBABLE SEPSIS Physical Exam Vital Signs: Temp Pulse Resp BP Pulse Ox 98.0 F 63 18 116/51 L 100 08/17/18 07:44 08/17/18 07:44 08/17/18 07:44 08/17/18 07:44 08/17/18 07:44 Intake & Output 08/16/18 08/17/18 08/18/18 06:59 06:59 06:59 Intake Total 1978 1040 Output Total 2800 3401 Balance -822 -2361 Weight 51.3 kg 51.2 kg Physical Exam: General appearance: PRESENT: mild distress - with use of supplemental oxygen via nasal cannula. Head exam: PRESENT: atraumatic, normocephalic Eye exam: PRESENT: conjunctiva pink. ABSENT: pallor, scleral icterus Ear exam: PRESENT: normal external ear exam Mouth exam: PRESENT: moist Respiratory exam: PRESENT: crackles, decreased breath sounds - at lung bases, rhonchi - expiratory phase Cardiovascular exam: PRESENT: RRR. ABSENT: diastolic murmur, rubs, systolic murmur GI/Abdominal exam: PRESENT: normal bowel sounds, soft. ABSENT: distended, guarding, mass, organomegaly, rebound, tenderness Extremities exam: ABSENT: pedal edema Neurological exam: PRESENT: alert, awake, oriented to person, oriented to place, oriented to time, oriented to situation, CN II-XII grossly intact. ABSENT: motor sensory deficit Psychiatric exam: PRESENT: appropriate affect, normal mood. ABSENT: homicidal ideation, suicidal ideation Skin exam: PRESENT: dry, warm Results Laboratory Results: 08/16/18 05:29 08/16/18 05:29 08/08/18 08/08/18 18:00 18:00 Creatine Kinase 22 L CK-MB (CK-2) 0.52 Troponin I < 0.012 NT-Pro-B Natriuret Pep 2800 H Impressions: Chest X-Ray 08/15/18 00:00 IMPRESSION: Obstructive lung disease. No acute findings Assessment & Plan - Diagnosis (1) UTI due to Klebsiella species Is this a current diagnosis for this admission?: Yes (2) Recurrent Clostridium difficile diarrhea Is this a current diagnosis for this admission?: Yes Plan: Continue oral Dificid treatment. (3) Acute exacerbation of chronic obstructive pulmonary disease (COPD) Is this a current diagnosis for this admission?: Yes (4) End stage chronic obstructive pulmonary disease Is this a current diagnosis for this admission?: Yes (5) Cardiac dysrhythmia Qualifiers: Arrhythmia type: unspecified cardiac arrhythmia Qualified Code(s): I49.9 - Cardiac arrhythmia, unspecified Is this a current diagnosis for this admission?: Yes (6) Chronic pulmonary embolism Qualifiers: Pulmonary embolism type: unspecified Acute cor pulmonale presence: without acute cor pulmonale Qualified Code(s): I27.82 - Chronic pulmonary embolism Is this a current diagnosis for this admission?: Yes (7) HTN (hypertension) Qualifiers: Hypertension type: essential hypertension Qualified Code(s): I10 - Essential (primary) hypertension Is this a current diagnosis for this admission?: Yes (8) HLD (hyperlipidemia) Qualifiers: Hyperlipidemia type: pure hypercholesterolemia Qualified Code(s): E78.00 - Pure hypercholesterolemia, unspecified Is this a current diagnosis for this admission?: Yes (9) GERD (gastroesophageal reflux disease) Qualifiers: Esophagitis presence: without esophagitis Qualified Code(s): K21.9 - Gastro-esophageal reflux disease without esophagitis Is this a current diagnosis for this admission?: Yes (10) Chronic pain syndrome Is this a current diagnosis for this admission?: Yes (11) Long-term current use of opiate analgesic Is this a current diagnosis for this admission?: Yes (12) Mixed anxiety and depressive disorder Is this a current diagnosis for this admission?: Yes - Time Time Spent with patient: 25-34 minutes Medications reviewed and adjusted accordingly: Yes Anticipated discharge: Home with Homehealth Within: Other - Inpatient Certification Based on my medical assessment, after consideration of the patient's comorbidities, presenting symptoms, or acuity I expect that the services needed warrant INPATIENT care.: Yes I certify that my determination is in accordance with my understanding of Medicare's requirements for reasonable and necessary INPATIENT services [42 CFR 412.3e].: Yes Medical Necessity: Significant Comorbidiites Make Outpatient Treatment Too Risky, Need Close Monitoring Due to Risk of Patient Decompensation, Need For Continuous Telemetry Monitoring, Need for Nebulizer Therapy and Monitoring of Response, Risk of Complication if Not Cared For in Hospital, Risk of Diagnosis Which Will Require Inpatient Eval/Care/Monitoring 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 Her discharge is furter complicated due to high out of pocket cost of her Dificid management. She need 10 days course of treatment.
[2018-08-17] MEDS: DILTIAZEM HCL 180 MG CAPSULE.CR PO SCH ×2 (09:06→21:16)
[2018-08-17] MEDS: OXYCODONE HCL IR 5 MG TABLET PO SCH ×3 (09:06→21:17)
[2018-08-17] MEDS: CITALOPRAM HYDROBROMIDE 20 MG TABLET PO SCH (09:06)
[2018-08-17] MEDS: FAMOTIDINE 20 MG TABLET PO SCH ×2 (09:07→17:05)
[2018-08-17] MEDS: FIDAXOMICIN 200 MG TABLET PO SCH ×2 (09:07→21:18)
[2018-08-17] MEDS: ACETAZOLAMIDE 250 MG TABLET PO SCH ×2 (09:07→21:18)
[2018-08-17] MEDS: PREDNISONE 5 MG TABLET PO SCH (09:11)
[2018-08-17] MEDS: OXYCODONE-ACETAMINOPHEN 5-325 MG TABLET PO SCH ×2 (14:12→21:15)
[2018-08-17] MEDS: MONTELUKAST SODIUM 10 MG TABLET PO SCH (17:05)
[2018-08-17] MEDS: ZOLPIDEM TARTRATE 5 MG TABLET PO PRN ×2 (18:49→22:46)
[2018-08-17] MEDS: ROFLUMILAST 500 MCG TABLET PO SCH (21:16)
[2018-08-17] MEDS: ENOXAPARIN SODIUM INJ 40 MG/0.4 ML DISP.SYRIN SUBCUT SCH (21:17)
[2018-08-18] MEDS: LEVALBUTEROL HCL NEB 1.25 MG/3 ML AMPUL NEB SCH ×4 (01:57→20:43)
[2018-08-18] MEDS: OXYCODONE-ACETAMINOPHEN 5-325 MG TABLET PO SCH ×3 (06:28→21:52)
[2018-08-18] MEDS: OXYCODONE HCL IR 5 MG TABLET PO SCH ×3 (06:28→21:52)
[2018-08-18 06:57] LABS: HEMATOCRIT 34.6 % (36.0-47.0); HEMOGLOBIN 10.9 g/dL (12.0-15.5); MEAN CORPUSCULAR HGB CONC 31.4 g/dL (32.0-36.0); MEAN CORPUSCULAR VOLUME 86 fl (80-97); PLATELET COUNT 463 10^3/uL (150-450); RED BLOOD COUNT 4.02 10^6/uL (3.72-5.28); WHITE BLOOD COUNT 24.7 10^3/uL (4.0-10.5)
[2018-08-18 07:13] LABS: ANION GAP 5 (5-19); BLOOD UREA NITROGEN 26 mg/dL (7-20); CALCIUM 8.7 mg/dL (8.4-10.2); CARBON DIOXIDE 26 mmol/L (22-30); CHLORIDE 105 mmol/L (98-107); GLUCOSE 98 mg/dL (75-110); POTASSIUM 4.5 mmol/L (3.6-5.0); SODIUM 136.4 mmol/L (137-145)
[2018-08-18 08:25] LABS: ABSOLUTE LYMPHOCYTES# (MANUAL) 2.5 10^3/uL (0.5-4.7); ABSOLUTE MONOCYTES # (MANUAL) 0.5 10^3/uL (0.1-1.4); BAND NEUTROPHILS % (MANUAL) 3 % (3-5); BASOPHILS % (MANUAL) 0 % (0-2); EOSINOPHILS % (MANUAL) 1 % (0-6); LYMPHOCYTES % (MANUAL) 10 % (13-45); METAMYELOCYTES % (MANUAL) 12 % (0); MONOCYTES % (MANUAL) 2 % (3-13); SEGMENTED NEUTROPHILS % (MAN) 72 % (42-78); TOTAL CELLS COUNTED 100
[2018-08-18 08:26] LABS: ANISOCYTOSIS 3+; PLATELET COMMENT INCREASED; SCHISTOCYTES SLIGHT; TARGET CELLS SLIGHT
[2018-08-18] MEDS: DILTIAZEM HCL 180 MG CAPSULE.CR PO SCH ×2 (09:38→21:52)
[2018-08-18] MEDS: CITALOPRAM HYDROBROMIDE 20 MG TABLET PO SCH (09:39)
[2018-08-18] MEDS: PREDNISONE 5 MG TABLET PO SCH (09:39)
[2018-08-18] MEDS: ACETAZOLAMIDE 250 MG TABLET PO SCH ×2 (09:39→22:14)
[2018-08-18] MEDS: FIDAXOMICIN 200 MG TABLET PO SCH (09:39)
[2018-08-18] MEDS: FAMOTIDINE 20 MG TABLET PO SCH ×2 (09:39→18:00)
[2018-08-18 11:01] LABS: PATH REVIEW PATHOLOGIST REVIEWED
--- NOTE | 2018-08-18 17:20 | PDOC PROGRESS REPORT ---
Subjective Progress Note for:: 08/18/18 Subjective:: Patient reported constipation to nursing staff but did move her bowel satisfactorily later today. No abdominal pain, nausea, or vomiting. No fever or chills. She remain on Dificid therapy. No chest pain. Breathing remain stable on supplemental oxygen via nasal cannula. Reason For Visit: EXACERBATED COPD;PROBABLE SEPSIS Physical Exam Vital Signs: Temp Pulse Resp BP Pulse Ox 98.1 F 76 24 H 109/50 L 98 08/18/18 15:58 08/18/18 15:58 08/18/18 15:58 08/18/18 15:58 08/18/18 15:58 Intake & Output 08/17/18 08/18/18 08/19/18 06:59 06:59 06:59 Intake Total 1040 650 350 Output Total 3401 550 Balance -2361 100 350 Weight 51.2 kg 50.3 kg Physical Exam: General appearance: PRESENT: mild distress - with use of supplemental oxygen via nasal cannula. Head exam: PRESENT: atraumatic, normocephalic Eye exam: PRESENT: conjunctiva pink. ABSENT: pallor, scleral icterus Ear exam: PRESENT: normal external ear exam Mouth exam: PRESENT: moist Respiratory exam: PRESENT: crackles, decreased breath sounds - at lung bases, rhonchi - expiratory phase Cardiovascular exam: PRESENT: RRR. ABSENT: diastolic murmur, rubs, systolic murmur GI/Abdominal exam: PRESENT: normal bowel sounds, soft. ABSENT: distended, guarding, mass, organomegaly, rebound, tenderness Extremities exam: ABSENT: pedal edema Neurological exam: PRESENT: alert, awake, oriented to person, oriented to place, oriented to time, oriented to situation, CN II-XII grossly intact. ABSENT: motor sensory deficit Psychiatric exam: PRESENT: appropriate affect, normal mood. ABSENT: homicidal ideation, suicidal ideation Skin exam: PRESENT: dry, warm Results Laboratory Results: 08/18/18 05:43 08/18/18 05:43 08/18/18 08/18/18 05:43 05:43 WBC 24.7 H RBC 4.02 Hgb 10.9 L Hct 34.6 L MCV 86 MCH 27.0 MCHC 31.4 L RDW 21.0 H Plt Count 463 H Seg Neutrophils % Not Reportable Lymphocytes % Not Reportable Monocytes % Not Reportable Eosinophils % Not Reportable Basophils % Not Reportable Absolute Neutrophils Not Reportable Absolute Lymphocytes Not Reportable Absolute Monocytes Not Reportable Absolute Eosinophils Not Reportable Absolute Basophils Not Reportable Sodium 136.4 L Potassium 4.5 Chloride 105 Carbon Dioxide 26 Anion Gap 5 BUN 26 H Creatinine 0.76 Est GFR ( Amer) > 60 Est GFR (Non-Af Amer) > 60 Glucose 98 Calcium 8.7 08/08/18 08/08/18 18:00 18:00 Creatine Kinase 22 L CK-MB (CK-2) 0.52 Troponin I < 0.012 NT-Pro-B Natriuret Pep 2800 H Impressions: Chest X-Ray 08/15/18 00:00 IMPRESSION: Obstructive lung disease. No acute findings Assessment & Plan - Diagnosis (1) UTI due to Klebsiella species Is this a current diagnosis for this admission?: Yes (2) Recurrent Clostridium difficile diarrhea Is this a current diagnosis for this admission?: Yes (3) Acute exacerbation of chronic obstructive pulmonary disease (COPD) Is this a current diagnosis for this admission?: Yes (4) End stage chronic obstructive pulmonary disease Is this a current diagnosis for this admission?: Yes (5) Cardiac dysrhythmia Qualifiers: Arrhythmia type: unspecified cardiac arrhythmia Qualified Code(s): I49.9 - Cardiac arrhythmia, unspecified Is this a current diagnosis for this admission?: Yes (6) Chronic pulmonary embolism Qualifiers: Pulmonary embolism type: unspecified Acute cor pulmonale presence: without acute cor pulmonale Qualified Code(s): I27.82 - Chronic pulmonary embolism Is this a current diagnosis for this admission?: Yes (7) HTN (hypertension) Qualifiers: Hypertension type: essential hypertension Qualified Code(s): I10 - Essential (primary) hypertension Is this a current diagnosis for this admission?: Yes (8) HLD (hyperlipidemia) Qualifiers: Hyperlipidemia type: pure hypercholesterolemia Qualified Code(s): E78.00 - Pure hypercholesterolemia, unspecified Is this a current diagnosis for this admission?: Yes (9) GERD (gastroesophageal reflux disease) Qualifiers: Esophagitis presence: without esophagitis Qualified Code(s): K21.9 - Gastro-esophageal reflux disease without esophagitis Is this a current diagnosis for this admission?: Yes (10) Chronic pain syndrome Is this a current diagnosis for this admission?: Yes (11) Long-term current use of opiate analgesic Is this a current diagnosis for this admission?: Yes (12) Mixed anxiety and depressive disorder Is this a current diagnosis for this admission?: Yes - Time Time Spent with patient: 25-34 minutes Medications reviewed and adjusted accordingly: Yes Anticipated discharge: Home with Homehealth Within: Other - Inpatient Certification Based on my medical assessment, after consideration of the patient's comorbidities, presenting symptoms, or acuity I expect that the services needed warrant INPATIENT care.: Yes I certify that my determination is in accordance with my understanding of Medicare's requirements for reasonable and necessary INPATIENT services [42 CFR 412.3e].: Yes Medical Necessity: Significant Comorbidiites Make Outpatient Treatment Too [place]is [place], Need Close Monitoring Due to Risk of Patient Decompensation, Need For IV Fluids, Need For Continuous Telemetry Monitoring, Need for Nebulizer Therapy and Monitoring of Response, Risk of Complication if Not Cared For in Hospital, Risk of Diagnosis Which Will Require Inpatient Eval/Care/Monitoring 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
[2018-08-18] MEDS: MONTELUKAST SODIUM 10 MG TABLET PO SCH (18:00)
[2018-08-18] MEDS: ROFLUMILAST 500 MCG TABLET PO SCH (21:52)
[2018-08-18] MEDS: ENOXAPARIN SODIUM INJ 40 MG/0.4 ML DISP.SYRIN SUBCUT SCH (21:53)
[2018-08-19] MEDS: LEVALBUTEROL HCL NEB 1.25 MG/3 ML AMPUL NEB SCH ×4 (02:51→19:41)
[2018-08-19] MEDS: FIDAXOMICIN 200 MG TABLET PO SCH ×2 (04:11→17:37)
[2018-08-19] MEDS: OXYCODONE HCL IR 5 MG TABLET PO SCH ×3 (05:32→21:37)
[2018-08-19] MEDS: OXYCODONE-ACETAMINOPHEN 5-325 MG TABLET PO SCH ×3 (05:32→21:38)
[2018-08-19] MEDS: ALPRAZOLAM 0.5 MG TABLET PO PRN ×2 (08:08→17:37)
[2018-08-19] MEDS: DILTIAZEM HCL 180 MG CAPSULE.CR PO SCH ×2 (09:56→21:38)
[2018-08-19] MEDS: FAMOTIDINE 20 MG TABLET PO SCH ×2 (09:57→17:37)
[2018-08-19] MEDS: CITALOPRAM HYDROBROMIDE 20 MG TABLET PO SCH (09:57)
[2018-08-19] MEDS: ACETAZOLAMIDE 250 MG TABLET PO SCH ×2 (09:57→21:38)
[2018-08-19] MEDS: PREDNISONE 5 MG TABLET PO SCH (09:57)
--- NOTE | 2018-08-19 14:18 | PDOC PROGRESS REPORT ---
Subjective Progress Note for:: 08/19/18 Reason For Visit: EXACERBATED COPD;PROBABLE SEPSIS Physical Exam Vital Signs: Temp Pulse Resp BP Pulse Ox 98.2 F 71 18 116/52 L 100 08/19/18 11:12 08/19/18 11:12 08/19/18 11:12 08/19/18 11:12 08/19/18 11:12 Intake & Output 08/18/18 08/19/18 08/20/18 06:59 06:59 06:59 Intake Total 650 941 Output Total 550 1700 Balance 100 -759 Weight 50.3 kg 50.4 kg General appearance: PRESENT: no acute distress Eye exam: PRESENT: PERRLA Respiratory exam: PRESENT: clear to auscultation luci Cardiovascular exam: PRESENT: +S1, +S2 GI/Abdominal exam: PRESENT: soft Neurological exam: PRESENT: alert Results Laboratory Results: 08/18/18 05:43 08/18/18 05:43 08/08/18 08/08/18 18:00 18:00 Creatine Kinase 22 L CK-MB (CK-2) 0.52 Troponin I < 0.012 NT-Pro-B Natriuret Pep 2800 H Impressions: Chest X-Ray 08/15/18 00:00 IMPRESSION: Obstructive lung disease. No acute findings Assessment & Plan - Diagnosis (1) Clostridium difficile colitis Is this a current diagnosis for this admission?: Yes Plan: continue medication (2) Acute exacerbation of chronic obstructive airways disease Is this a current diagnosis for this admission?: Yes (3) Chronic pulmonary embolism Qualifiers: Pulmonary embolism type: unspecified Acute cor pulmonale presence: without acute cor pulmonale Qualified Code(s): I27.82 - Chronic pulmonary embolism Is this a current diagnosis for this admission?: Yes
[2018-08-19] MEDS: MONTELUKAST SODIUM 10 MG TABLET PO SCH (17:37)
[2018-08-19] MEDS: ROFLUMILAST 500 MCG TABLET PO SCH (21:38)
[2018-08-19] MEDS: ENOXAPARIN SODIUM INJ 40 MG/0.4 ML DISP.SYRIN SUBCUT SCH (21:39)
[2018-08-19] MEDS: ZOLPIDEM TARTRATE 5 MG TABLET PO PRN (21:42)
[2018-08-19] MEDS: NYSTATIN TOPICAL POWDER 15 GM TP SCH (22:11)
[2018-08-20] MEDS: LEVALBUTEROL HCL NEB 1.25 MG/3 ML AMPUL NEB SCH ×4 (02:07→20:38)
[2018-08-20] MEDS: OXYCODONE-ACETAMINOPHEN 5-325 MG TABLET PO SCH ×3 (05:06→21:25)
[2018-08-20] MEDS: OXYCODONE HCL IR 5 MG TABLET PO SCH ×3 (05:06→21:25)
[2018-08-20] MEDS: FIDAXOMICIN 200 MG TABLET PO SCH ×2 (05:07→18:39)
[2018-08-20] MEDS: DILTIAZEM HCL 180 MG CAPSULE.CR PO SCH ×2 (09:50→21:25)
[2018-08-20] MEDS: CITALOPRAM HYDROBROMIDE 20 MG TABLET PO SCH (09:50)
[2018-08-20] MEDS: FAMOTIDINE 20 MG TABLET PO SCH ×2 (09:50→18:39)
[2018-08-20] MEDS: PREDNISONE 5 MG TABLET PO SCH (09:51)
[2018-08-20] MEDS: ACETAZOLAMIDE 250 MG TABLET PO SCH ×2 (09:51→21:25)
[2018-08-20] MEDS: NYSTATIN TOPICAL POWDER 15 GM TP SCH ×2 (09:52→21:28)
[2018-08-20] MEDS: ALPRAZOLAM 0.5 MG TABLET PO PRN ×2 (09:53→21:25)
--- NOTE | 2018-08-20 15:36 | PDOC PROGRESS REPORT ---
Subjective Progress Note for:: 08/20/18 Subjective:: Patient seen by the bedside Reason For Visit: EXACERBATED COPD;PROBABLE SEPSIS Physical Exam Vital Signs: Temp Pulse Resp BP Pulse Ox 98.3 F 72 16 111/56 L 97 08/20/18 04:15 08/20/18 13:55 08/20/18 13:55 08/20/18 04:15 08/20/18 13:55 Intake & Output 08/19/18 08/20/18 08/21/18 06:59 06:59 06:59 Intake Total 941 1183 Output Total 1700 Balance -759 1183 Weight 50.4 kg 45.5 kg General appearance: PRESENT: no acute distress Eye exam: PRESENT: PERRLA Respiratory exam: PRESENT: clear to auscultation luci Cardiovascular exam: PRESENT: +S1, +S2 GI/Abdominal exam: PRESENT: soft Results Laboratory Results: 08/18/18 05:43 08/18/18 05:43 08/08/18 08/08/18 18:00 18:00 Creatine Kinase 22 L CK-MB (CK-2) 0.52 Troponin I < 0.012 NT-Pro-B Natriuret Pep 2800 H Impressions: Chest X-Ray 08/15/18 00:00 IMPRESSION: Obstructive lung disease. No acute findings Assessment & Plan - Diagnosis (1) Clostridium difficile colitis Is this a current diagnosis for this admission?: Yes Plan: continue medication (2) Acute exacerbation of chronic obstructive airways disease Is this a current diagnosis for this admission?: Yes (3) Chronic pulmonary embolism Qualifiers: Pulmonary embolism type: unspecified Acute cor pulmonale presence: without acute cor pulmonale Qualified Code(s): I27.82 - Chronic pulmonary embolism Is this a current diagnosis for this admission?: Yes
[2018-08-20] MEDS: MONTELUKAST SODIUM 10 MG TABLET PO SCH (18:39)
[2018-08-20] MEDS: ROFLUMILAST 500 MCG TABLET PO SCH (21:25)
[2018-08-20] MEDS: ZOLPIDEM TARTRATE 5 MG TABLET PO PRN (21:26)
[2018-08-20] MEDS: ENOXAPARIN SODIUM INJ 40 MG/0.4 ML DISP.SYRIN SUBCUT SCH (21:26)
[2018-08-21] MEDS: LEVALBUTEROL HCL NEB 1.25 MG/3 ML AMPUL NEB SCH ×4 (01:59→20:43)
[2018-08-21] MEDS: OXYCODONE HCL IR 5 MG TABLET PO SCH ×3 (05:13→22:27)
[2018-08-21] MEDS: FIDAXOMICIN 200 MG TABLET PO SCH ×2 (05:13→17:09)
[2018-08-21] MEDS: OXYCODONE-ACETAMINOPHEN 5-325 MG TABLET PO SCH ×3 (05:13→22:26)
[2018-08-21] MEDS: PREDNISONE 5 MG TABLET PO SCH (09:39)
[2018-08-21] MEDS: FAMOTIDINE 20 MG TABLET PO SCH ×2 (09:39→17:09)
[2018-08-21] MEDS: CITALOPRAM HYDROBROMIDE 20 MG TABLET PO SCH (09:39)
[2018-08-21] MEDS: ACETAZOLAMIDE 250 MG TABLET PO SCH ×2 (09:39→22:27)
[2018-08-21] MEDS: NYSTATIN TOPICAL POWDER 15 GM TP SCH ×2 (09:42→22:25)
[2018-08-21] MEDS: DILTIAZEM HCL 180 MG CAPSULE.CR PO SCH ×2 (09:44→22:26)
[2018-08-21 10:23] LABS: HEMATOCRIT 31.8 % (36.0-47.0); HEMOGLOBIN 10.1 g/dL (12.0-15.5); MEAN CORPUSCULAR HEMOGLOBIN 27.3 pg (27.0-33.4); MEAN CORPUSCULAR HGB CONC 31.7 g/dL (32.0-36.0); MEAN CORPUSCULAR VOLUME 86 fl (80-97); PLATELET COUNT 379 10^3/uL (150-450); RED BLOOD COUNT 3.68 10^6/uL (3.72-5.28); WHITE BLOOD COUNT 23.9 10^3/uL (4.0-10.5)
[2018-08-21 10:46] LABS: ANION GAP 7 (5-19); BLOOD UREA NITROGEN 31 mg/dL (7-20); CALCIUM 8.6 mg/dL (8.4-10.2); CARBON DIOXIDE 26 mmol/L (22-30); CHLORIDE 101 mmol/L (98-107); GLUCOSE 128 mg/dL (75-110); POTASSIUM 4.2 mmol/L (3.6-5.0); SODIUM 134.1 mmol/L (137-145)
[2018-08-21 10:57] LABS: ABSOLUTE LYMPHOCYTES# (MANUAL) 2.2 10^3/uL (0.5-4.7); ABSOLUTE MONOCYTES # (MANUAL) 1.7 10^3/uL (0.1-1.4); BAND NEUTROPHILS % (MANUAL) 2 % (3-5); BASOPHILS % (MANUAL) 0 % (0-2); EOSINOPHILS % (MANUAL) 0 % (0-6); LYMPHOCYTES % (MANUAL) 9 % (13-45); MONOCYTES % (MANUAL) 7 % (3-13); SEGMENTED NEUTROPHILS % (MAN) 82 % (42-78); TOTAL CELLS COUNTED 100
[2018-08-21 10:58] LABS: HYPERSEGMENTED NEUTROPHILS PRESENT; PLATELET COMMENT ADEQUATE
[2018-08-21 10:59] LABS: ANISOCYTOSIS 3+; HYPOCHROMASIA 1+; POIKILOCYTOSIS SLIGHT; TARGET CELLS SLIGHT
[2018-08-21] MEDS: MONTELUKAST SODIUM 10 MG TABLET PO SCH (17:09)
--- NOTE | 2018-08-21 18:01 | Progress Note ---
Provider Note Provider Note: ID Consult Note Asked to review patient's chart. Pt not seen or examined. Pt is a 77 year old woman with COPD who was admitted on 08/09/18 after she presented to the ED with complaint of difficulty breathing x 2 days with associated productive cough. She was managed for acute exacerbation of COPD. She received Levaquin from 08/09-08/13 and cefepime from 08/09-08/14. She also received Solu-medrol 125 mg, then 80 mg q8h, followed by 40 mg q8h, then a rapid prednisone taper down from there. The patient's initial WBC count was 50k on 08/08, then 41, then 14, then 31 on 08/15 and has been in the range of 24-27k since then. She has not had fever. Number of bowel movements has been recorded as being up to 4 on 08/14 and 4 on 08/16. Per nursing note from 08/17, the patient had 4 formed stools without mucus. Pt was not described as having increasing abdominal distention, abdominal pain, abnormal bowel sounds, or diarrhea in notes around the time her stool sample was sent for C difficile testing. Impression/Recommendations Clostridium difficile PCR of the stool is very sensitive but not very specific; the PCR cannot distinguish between colonization and true disease due to C difficile. Because of this, testing is recommended only in cases of diarrhea (>3 unformed stools/day), with no laxative use x 48h to otherwise account for diarrhea, and where there is high suspicion of disease. Leukocytosis is a nonspecific marker of inflammation and can go up in response to severe physiologic stress in addition to infection, and steroids also cause demargination of neutrophils and will increase the WBC count. If the patient's presentation was otherwise inconsistent with C difficile diarrhea, then Difficid should be discontinued, and the WBC count attributed to the patient's chronic comorbidities that may have primed her bone marrow to respond exuberantly, the stress of the severe COPD exacerbation, and the steroid use. However, if she did have diarrhea that is best explained by C difficile, then continuing Difficid to complete 10 days of treatment is reasonable. Which of these two scenarios is most likely is not clear to me based on chart review, but sometimes there are limitations to what is captured in the EHR or the ease at which it can be extracted remotely. Kamran Perez MD [facility] Infectious Diseases pager [phone]
--- NOTE | 2018-08-21 19:26 | PDOC PROGRESS REPORT ---
Subjective Progress Note for:: 08/21/18 Subjective:: Patient denied recurrent diarrhea. No abdominal pain, nausea, or vomiting. No fever or chills. No chest pain. Breathing remain stable on supplemental oxygen via nasal cannula. Reason For Visit: EXACERBATED COPD;PROBABLE SEPSIS Physical Exam Vital Signs: Temp Pulse Resp BP Pulse Ox 98.5 F 96 18 132/64 H 96 08/21/18 07:57 08/21/18 07:57 08/21/18 07:57 08/21/18 07:57 08/21/18 07:57 Intake & Output 08/20/18 08/21/18 08/22/18 06:59 06:59 06:59 Intake Total 1183 1307 Balance 1183 1307 Weight 45.5 kg 46 kg Physical Exam: General appearance: PRESENT: mild distress - with use of supplemental oxygen via nasal cannula. Head exam: PRESENT: atraumatic, normocephalic Eye exam: PRESENT: conjunctiva pink. ABSENT: pallor, scleral icterus Ear exam: PRESENT: normal external ear exam Mouth exam: PRESENT: moist Respiratory exam: PRESENT: crackles, decreased breath sounds - at lung bases, rhonchi - expiratory phase Cardiovascular exam: PRESENT: RRR. ABSENT: diastolic murmur, rubs, systolic murmur GI/Abdominal exam: PRESENT: normal bowel sounds, soft. ABSENT: distended, guarding, mass, organomegaly, rebound, tenderness Extremities exam: ABSENT: pedal edema Neurological exam: PRESENT: alert, awake, oriented to person, oriented to place, oriented to time, oriented to situation, CN II-XII grossly intact. ABSENT: motor sensory deficit Psychiatric exam: PRESENT: appropriate affect, normal mood. ABSENT: homicidal ideation, suicidal ideation Skin exam: PRESENT: dry, warm Results Laboratory Results: 08/18/18 05:43 08/18/18 05:43 08/08/18 08/08/18 18:00 18:00 Creatine Kinase 22 L CK-MB (CK-2) 0.52 Troponin I < 0.012 NT-Pro-B Natriuret Pep 2800 H Impressions: Chest X-Ray 08/15/18 00:00 IMPRESSION: Obstructive lung disease. No acute findings Assessment & Plan - Diagnosis (1) UTI due to Klebsiella species Is this a current diagnosis for this admission?: Yes (2) Recurrent Clostridium difficile diarrhea Is this a current diagnosis for this admission?: Yes (3) Acute exacerbation of chronic obstructive pulmonary disease (COPD) Is this a current diagnosis for this admission?: Yes (4) End stage chronic obstructive pulmonary disease Is this a current diagnosis for this admission?: Yes (5) Cardiac dysrhythmia Qualifiers: Arrhythmia type: unspecified cardiac arrhythmia Qualified Code(s): I49.9 - Cardiac arrhythmia, unspecified Is this a current diagnosis for this admission?: Yes (6) Chronic pulmonary embolism Qualifiers: Pulmonary embolism type: unspecified Acute cor pulmonale presence: without acute cor pulmonale Qualified Code(s): I27.82 - Chronic pulmonary embolism Is this a current diagnosis for this admission?: Yes (7) HTN (hypertension) Qualifiers: Hypertension type: essential hypertension Qualified Code(s): I10 - Essential (primary) hypertension Is this a current diagnosis for this admission?: Yes (8) HLD (hyperlipidemia) Qualifiers: Hyperlipidemia type: pure hypercholesterolemia Qualified Code(s): E78.00 - Pure hypercholesterolemia, unspecified Is this a current diagnosis for this admission?: Yes (9) GERD (gastroesophageal reflux disease) Qualifiers: Esophagitis presence: without esophagitis Qualified Code(s): K21.9 - Gastro-esophageal reflux disease without esophagitis Is this a current diagnosis for this admission?: Yes (10) Chronic pain syndrome Is this a current diagnosis for this admission?: Yes (11) Long-term current use of opiate analgesic Is this a current diagnosis for this admission?: Yes (12) Mixed anxiety and depressive disorder Is this a current diagnosis for this admission?: Yes - Time Time Spent with patient: 25-34 minutes Medications reviewed and adjusted accordingly: Yes Anticipated discharge: Home with Homehealth Within: Other - Inpatient Certification Based on my medical assessment, after consideration of the patient's comorbidities, presenting symptoms, or acuity I expect that the services needed warrant INPATIENT care.: Yes I certify that my determination is in accordance with my understanding of Medicare's requirements for reasonable and necessary INPATIENT services [42 CFR 412.3e].: Yes Medical Necessity: Significant Comorbidiites Make Outpatient Treatment Too Risky, Need Close Monitoring Due to Risk of Patient Decompensation, Need For Continuous Telemetry Monitoring, Need for Nebulizer Therapy and Monitoring of Response, Risk of Complication if Not Cared For in Hospital, Risk of Diagnosis Which Will Require Inpatient Eval/Care/Monitoring Post Hospital Care: D/C Bolt Header Documentation - Plan Summary Plan Summary: Decrease Predisone to 5 mg p.o daily. Continue all other current medication management. Obtain CBC with diff, BMP
[2018-08-21] MEDS: ALPRAZOLAM 0.5 MG TABLET PO PRN (22:27)
[2018-08-21] MEDS: ZOLPIDEM TARTRATE 5 MG TABLET PO PRN (22:27)
[2018-08-21] MEDS: ENOXAPARIN SODIUM INJ 40 MG/0.4 ML DISP.SYRIN SUBCUT SCH (22:27)
[2018-08-21] MEDS: ROFLUMILAST 500 MCG TABLET PO SCH (22:27)
[2018-08-22] MEDS: LEVALBUTEROL HCL NEB 1.25 MG/3 ML AMPUL NEB SCH ×4 (02:00→20:42)
[2018-08-22] MEDS: FIDAXOMICIN 200 MG TABLET PO SCH ×2 (05:51→17:11)
[2018-08-22] MEDS: OXYCODONE-ACETAMINOPHEN 5-325 MG TABLET PO SCH ×3 (05:51→22:31)
[2018-08-22] MEDS: OXYCODONE HCL IR 5 MG TABLET PO SCH ×3 (05:51→22:32)
[2018-08-22] MEDS: DILTIAZEM HCL 180 MG CAPSULE.CR PO SCH ×2 (09:47→22:32)
[2018-08-22] MEDS: PREDNISONE 5 MG TABLET PO SCH (09:48)
[2018-08-22] MEDS: CITALOPRAM HYDROBROMIDE 20 MG TABLET PO SCH (09:48)
[2018-08-22] MEDS: ACETAZOLAMIDE 250 MG TABLET PO SCH ×2 (09:49→22:32)
[2018-08-22] MEDS: FAMOTIDINE 20 MG TABLET PO SCH ×2 (09:49→17:11)
[2018-08-22] MEDS: NYSTATIN TOPICAL POWDER 15 GM TP SCH ×2 (09:50→22:33)
[2018-08-22] MEDS: ALPRAZOLAM 0.5 MG TABLET PO PRN ×2 (11:32→22:32)
[2018-08-22] MEDS: MONTELUKAST SODIUM 10 MG TABLET PO SCH (17:11)
--- NOTE | 2018-08-22 17:57 | PDOC PROGRESS REPORT ---
Subjective Progress Note for:: 08/22/18 Subjective:: Patient denied chest pain. Breathing at baseline. No abdominal pain, nausea, or vomiting. No fever or chills. Reason For Visit: EXACERBATED COPD;PROBABLE SEPSIS Physical Exam Vital Signs: Temp Pulse Resp BP Pulse Ox 98.0 F 74 21 H 127/53 H 99 08/22/18 10:39 08/22/18 14:03 08/22/18 14:12 08/22/18 10:39 08/22/18 14:03 Intake & Output 08/21/18 08/22/18 08/23/18 06:59 06:59 06:59 Intake Total 1307 1640 400 Output Total 700 300 Balance 1307 940 100 Weight 46 kg 50.7 kg Physical Exam: General appearance: PRESENT: mild distress - with use of supplemental oxygen via nasal cannula. Head exam: PRESENT: atraumatic, normocephalic Eye exam: PRESENT: conjunctiva pink. ABSENT: pallor, scleral icterus Ear exam: PRESENT: normal external ear exam Mouth exam: PRESENT: moist Respiratory exam: PRESENT: crackles, decreased breath sounds - at lung bases, rhonchi - expiratory phase Cardiovascular exam: PRESENT: RRR. ABSENT: diastolic murmur, rubs, systolic murmur GI/Abdominal exam: PRESENT: normal bowel sounds, soft. ABSENT: distended, guarding, mass, organomegaly, rebound, tenderness Extremities exam: ABSENT: pedal edema Neurological exam: PRESENT: alert, awake, oriented to person, oriented to place, oriented to time, oriented to situation, CN II-XII grossly intact. ABSENT: motor sensory deficit Psychiatric exam: PRESENT: appropriate affect, normal mood. ABSENT: homicidal ideation, suicidal ideation Skin exam: PRESENT: dry, warm Results Laboratory Results: 08/21/18 10:05 08/21/18 10:05 08/08/18 08/08/18 18:00 18:00 Creatine Kinase 22 L CK-MB (CK-2) 0.52 Troponin I < 0.012 NT-Pro-B Natriuret Pep 2800 H Impressions: Chest X-Ray 08/15/18 00:00 IMPRESSION: Obstructive lung disease. No acute findings Assessment & Plan - Diagnosis (1) UTI due to Klebsiella species Is this a current diagnosis for this admission?: Yes (2) Recurrent Clostridium difficile diarrhea Is this a current diagnosis for this admission?: Yes (3) Acute exacerbation of chronic obstructive pulmonary disease (COPD) Is this a current diagnosis for this admission?: Yes (4) End stage chronic obstructive pulmonary disease Is this a current diagnosis for this admission?: Yes (5) Cardiac dysrhythmia Qualifiers: Arrhythmia type: unspecified cardiac arrhythmia Qualified Code(s): I49.9 - Cardiac arrhythmia, unspecified Is this a current diagnosis for this admission?: Yes (6) Chronic pulmonary embolism Qualifiers: Pulmonary embolism type: unspecified Acute cor pulmonale presence: without acute cor pulmonale Qualified Code(s): I27.82 - Chronic pulmonary embolism Is this a current diagnosis for this admission?: Yes (7) HTN (hypertension) Qualifiers: Hypertension type: essential hypertension Qualified Code(s): I10 - Essent ial (primary) hypertension Is this a current diagnosis for this admission?: Yes (8) HLD (hyperlipidemia) Qualifiers: Hyperlipidemia type: pure hypercholesterolemia Qualified Code(s): E78.00 - Pure hypercholesterolemia, unspecified Is this a current diagnosis for this admission?: Yes (9) GERD (gastroesophageal reflux disease) Qualifiers: Esophagitis presence: without esophagitis Qualified Code(s): K21.9 - Gastro-esophageal reflux disease without esophagitis Is this a current diagnosis for this admission?: Yes (10) Chronic pain syndrome Is this a current diagnosis for this admission?: Yes (11) Long-term current use of opiate analgesic Is this a current diagnosis for this admission?: Yes (12) Mixed anxiety and depressive disorder Is this a current diagnosis for this admission?: Yes - Time Time Spent with patient: 25-34 minutes Medications reviewed and adjusted accordingly: Yes Anticipated discharge: Home with Homehealth Within: Other - Inpatient Certification Based on my medical assessment, after consideration of the patient's comorbidities, presenting symptoms, or acuity I expect that the services needed warrant INPATIENT care.: Yes I certify that my determination is in accordance with my understanding of Medicare's requirements for reasonable and necessary INPATIENT services [42 CFR 412.3e].: Yes Medical Necessity: Significant Comorbidiites Make Outpatient Treatment Too Risky, Need Close Monitoring Due to Risk of Patient Decompensation, Need For Continuous Telemetry Monitoring, Need for Nebulizer Therapy and Monitoring of Response, Risk of Complication if Not Cared For in Hospital, Risk of Diagnosis Which Will Require Inpatient Eval/Care/Monitoring Post Hospital Care: D/C Refrigeration Supervisor Documentation - Plan Summary Plan Summary: Continue current medication management. She is day # 8 on oral Dificid treatment.
[2018-08-22] MEDS: ROFLUMILAST 500 MCG TABLET PO SCH (22:31)
[2018-08-22] MEDS: ZOLPIDEM TARTRATE 5 MG TABLET PO PRN (22:31)
[2018-08-22] MEDS: ENOXAPARIN SODIUM INJ 40 MG/0.4 ML DISP.SYRIN SUBCUT SCH (22:32)
[2018-08-23] MEDS: LEVALBUTEROL HCL NEB 1.25 MG/3 ML AMPUL NEB SCH ×4 (01:41→21:12)
[2018-08-23] MEDS: FIDAXOMICIN 200 MG TABLET PO SCH ×2 (05:55→18:31)
[2018-08-23] MEDS: OXYCODONE HCL IR 5 MG TABLET PO SCH ×3 (05:55→22:02)
[2018-08-23] MEDS: OXYCODONE-ACETAMINOPHEN 5-325 MG TABLET PO SCH ×3 (05:55→22:04)
[2018-08-23] MEDS: DILTIAZEM HCL 180 MG CAPSULE.CR PO SCH ×2 (09:54→22:01)
[2018-08-23] MEDS: CITALOPRAM HYDROBROMIDE 20 MG TABLET PO SCH (09:54)
[2018-08-23] MEDS: FAMOTIDINE 20 MG TABLET PO SCH ×2 (09:54→18:31)
[2018-08-23] MEDS: ACETAZOLAMIDE 250 MG TABLET PO SCH ×2 (09:54→22:02)
[2018-08-23] MEDS: PREDNISONE 5 MG TABLET PO SCH (09:54)
[2018-08-23] MEDS: NYSTATIN TOPICAL POWDER 15 GM TP SCH ×2 (09:54→22:05)
[2018-08-23] MEDS: MONTELUKAST SODIUM 10 MG TABLET PO SCH (18:31)
--- NOTE | 2018-08-23 18:43 | PDOC PROGRESS REPORT ---
Subjective Progress Note for:: 08/23/18 Subjective:: No chest pain. Breathing remain at baseline. No abdominal pain, nausea, or vomiting. No fever or chills. Reason For Visit: EXACERBATED COPD;PROBABLE SEPSIS Physical Exam Vital Signs: Temp Pulse Resp BP Pulse Ox 98.1 F 60 20 109/50 L 97 08/23/18 04:09 08/23/18 07:00 08/23/18 04:09 08/23/18 04:09 08/23/18 04:09 Intake & Output 08/22/18 08/23/18 08/24/18 06:59 06:59 06:59 Intake Total 1640 880 Output Total 700 300 Balance 940 580 Weight 50.7 kg 50.5 kg Physical Exam: General appearance: PRESENT: mild distress - with use of supplemental oxygen via nasal cannula. Head exam: PRESENT: atraumatic, normocephalic Eye exam: PRESENT: conjunctiva pink. ABSENT: pallor, scleral icterus Ear exam: PRESENT: normal external ear exam Mouth exam: PRESENT: moist Respiratory exam: PRESENT: crackles, decreased breath sounds - at lung bases, rhonchi - expiratory phase Cardiovascular exam: PRESENT: RRR. ABSENT: diastolic murmur, rubs, systolic murmur GI/Abdominal exam: PRESENT: normal bowel sounds, soft. ABSENT: distended, guarding, mass, organomegaly, rebound, tenderness Extremities exam: ABSENT: pedal edema Neurological exam: PRESENT: alert, awake, oriented to person, oriented to place, oriented to time, oriented to situation, CN II-XII grossly intact. ABSENT: motor sensory deficit Psychiatric exam: PRESENT: appropriate affect, normal mood. ABSENT: homicidal ideation, suicidal ideation Skin exam: PRESENT: dry, warm Results Laboratory Results: 08/21/18 10:05 08/21/18 10:05 08/08/18 08/08/18 18:00 18:00 Creatine Kinase 22 L CK-MB (CK-2) 0.52 Troponin I < 0.012 NT-Pro-B Natriuret Pep 2800 H Impressions: Chest X-Ray 08/15/18 00:00 IMPRESSION: Obstructive lung disease. No acute findings Assessment & Plan - Diagnosis (1) UTI due to Klebsiella species Is this a current diagnosis for this admission?: Yes (2) Recurrent Clostridium difficile diarrhea Is this a current diagnosis for this admission?: Yes (3) Acute exacerbation of chronic obstructive pulmonary disease (COPD) Is this a current diagnosis for this admission?: Yes (4) End stage chronic obstructive pulmonary disease Is this a current diagnosis for this admission?: Yes (5) Cardiac dysrhythmia Qualifiers: Arrhythmia type: unspecified cardiac arrhythmia Qualified Code(s): I49.9 - Cardiac arrhythmia, unspecified Is this a current diagnosis for this admission?: Yes (6) Chronic pulmonary embolism Qualifiers: Pulmonary embolism type: unspecified Acute cor pulmonale presence: without acute cor pulmonale Qualified Code(s): I27.82 - Chronic pulmonary embolism Is this a current diagnosis for this admission?: Yes (7) HTN (hypertension) Qualifiers: Hypertension type: essential hypertension Qualified Code(s): I10 - Essential (primary) hypertension Is this a current diagnosis for this admission?: Yes (8) HLD (hyperlipidemia) Qualifiers: Hyperlipidemia type: pure hypercholesterolemia Qualified Code(s): E78.00 - Pure hypercholesterolemia, unspecified Is this a current diagnosis for this admission?: Yes (9) GERD (gastroesophageal reflux disease) Qualifiers: Esophagitis presence: without esophagitis Qualified Code(s): K21.9 - Ga stro-esophageal reflux disease without esophagitis Is this a current diagnosis for this admission?: Yes (10) Chronic pain syndrome Is this a current diagnosis for this admission?: Yes (11) Long-term current use of opiate analgesic Is this a current diagnosis for this admission?: Yes (12) Mixed anxiety and depressive disorder Is this a current diagnosis for this admission?: Yes - Time Time Spent with patient: 25-34 minutes Medications reviewed and adjusted accordingly: Yes Anticipated discharge: Home with Homehealth Within: Other - Inpatient Certification Based on my medical assessment, after consideration of the patient's comorbidities, presenting symptoms, or acuity I expect that the services needed warrant INPATIENT care.: Yes I certify that my determination is in accordance with my understanding of Medicare's requirements for reasonable and necessary INPATIENT services [42 CFR 412.3e].: Yes Medical Necessity: Significant Comorbidiites Make Outpatient Treatment Too Risky, Need Close Monitoring Due to Risk of Patient Decompensation, Need For Continuous Telemetry Monitoring, Risk of Complication if Not Cared For in Hospital, Risk of Diagnosis Which Will Require Inpatient Eval/Care/Monitoring Post Hospital Care: D/C Hosiery Pairer Documentation - Plan Summary Plan Summary: Continue current medication management. Day #9 on oral Dificid therapy. Obtain CBC with diff and CMP in am.
[2018-08-23] MEDS: ENOXAPARIN SODIUM INJ 40 MG/0.4 ML DISP.SYRIN SUBCUT SCH (22:04)
[2018-08-23] MEDS: ROFLUMILAST 500 MCG TABLET PO SCH (22:04)
[2018-08-23] MEDS: ALPRAZOLAM 0.5 MG TABLET PO PRN (22:06)
[2018-08-23] MEDS: ZOLPIDEM TARTRATE 5 MG TABLET PO PRN (22:06)
[2018-08-24] MEDS: LEVALBUTEROL HCL NEB 1.25 MG/3 ML AMPUL NEB SCH ×4 (01:46→20:18)
[2018-08-24] MEDS: FIDAXOMICIN 200 MG TABLET PO SCH ×2 (05:30→18:19)
[2018-08-24] MEDS: OXYCODONE HCL IR 5 MG TABLET PO SCH ×2 (05:30→21:29)
[2018-08-24] MEDS: OXYCODONE-ACETAMINOPHEN 5-325 MG TABLET PO SCH ×2 (05:31→21:28)
[2018-08-24 06:53] LABS: MEAN CORPUSCULAR HEMOGLOBIN 26.7 pg (27.0-33.4); MEAN CORPUSCULAR HGB CONC 30.4 g/dL (32.0-36.0); MEAN CORPUSCULAR VOLUME 88 fl (80-97); PLATELET COUNT 419 10^3/uL (150-450); RED BLOOD COUNT 3.76 10^6/uL (3.72-5.28); RED CELL DISTRIBUTION WIDTH 20.7 % (11.5-14.0); WHITE BLOOD COUNT 10.4 10^3/uL (4.0-10.5)
[2018-08-24 07:28] LABS: ALANINE AMINOTRANSFERASE 18 U/L (9-52); ALKALINE PHOSPHATASE 82 U/L (38-126); ANION GAP 7 (5-19); ASPARTATE AMINO TRANSFERASE 20 U/L (14-36); BILIRUBIN,DIRECT 0.3 mg/dL (0.0-0.4); BILIRUBIN,TOTAL 0.3 mg/dL (0.2-1.3); BLOOD UREA NITROGEN 28 mg/dL (7-20); CALCIUM 8.5 mg/dL (8.4-10.2); CARBON DIOXIDE 26 mmol/L (22-30); CHLORIDE 102 mmol/L (98-107); GLUCOSE 85 mg/dL (75-110); POTASSIUM 4.9 mmol/L (3.6-5.0); SODIUM 134.8 mmol/L (137-145); TOTAL PROTEIN 6.6 g/dL (6.3-8.2)
[2018-08-24 07:32] LABS: ABSOLUTE LYMPHOCYTES# (MANUAL) 2.7 10^3/uL (0.5-4.7); ABSOLUTE MONOCYTES # (MANUAL) 1.4 10^3/uL (0.1-1.4); BAND NEUTROPHILS % (MANUAL) 1 % (3-5); BASOPHILS % (MANUAL) 1 % (0-2); EOSINOPHILS % (MANUAL) 2 % (0-6); LYMPHOCYTES % (MANUAL) 26 % (13-45); METAMYELOCYTES % (MANUAL) 2 % (0); MONOCYTES % (MANUAL) 13 % (3-13); SEGMENTED NEUTROPHILS % (MAN) 55 % (42-78); TOTAL CELLS COUNTED 100
[2018-08-24 07:35] LABS: ANISOCYTOSIS 2+; HYPOCHROMASIA 1+; PLATELET COMMENT ADEQUATE
[2018-08-24] MEDS: DILTIAZEM HCL 180 MG CAPSULE.CR PO SCH ×2 (10:40→21:29)
[2018-08-24] MEDS: PREDNISONE 5 MG TABLET PO SCH (10:41)
[2018-08-24] MEDS: FAMOTIDINE 20 MG TABLET PO SCH ×2 (10:41→18:19)
[2018-08-24] MEDS: ACETAZOLAMIDE 250 MG TABLET PO SCH ×2 (10:41→21:34)
[2018-08-24] MEDS: CITALOPRAM HYDROBROMIDE 20 MG TABLET PO SCH (10:41)
[2018-08-24] MEDS: NYSTATIN TOPICAL POWDER 15 GM TP SCH ×2 (10:42→21:35)
[2018-08-24] MEDS: MONTELUKAST SODIUM 10 MG TABLET PO SCH (18:19)
--- NOTE | 2018-08-24 18:31 | PDOC PROGRESS REPORT ---
Subjective Progress Note for:: 08/24/18 Subjective:: No fever or chills. No abdominal pain, nausea, or vomiting. No diarrhea. No chest pain. Breathing remain at baseline on supplemental oxygen via nasal cannula and BiPAP support while sleeping. Reason For Visit: EXACERBATED COPD;PROBABLE SEPSIS Physical Exam Vital Signs: Temp Pulse Resp BP Pulse Ox 98.2 F 60 18 99/44 L 100 08/24/18 03:58 08/24/18 03:58 08/24/18 03:58 08/24/18 03:58 08/24/18 04:21 Intake & Output 08/23/18 08/24/18 08/25/18 06:59 06:59 06:59 Intake Total 880 1800 Output Total 300 2200 Balance 580 -400 Weight 50.5 kg 50 kg Physical Exam: General appearance: PRESENT: mild distress - with use of supplemental oxygen via nasal cannula. Head exam: PRESENT: atraumatic, normocephalic Eye exam: PRESENT: conjunctiva pink. ABSENT: pallor, scleral icterus Ear exam: PRESENT: normal external ear exam Mouth exam: PRESENT: moist Respiratory exam: PRESENT: crackles, decreased breath sounds - at lung bases, rhonchi - expiratory phase Cardiovascular exam: PRESENT: RRR. ABSENT: diastolic murmur, rubs, systolic murmur GI/Abdominal exam: PRESENT: normal bowel sounds, soft. ABSENT: distended, guarding, mass, organomegaly, rebound, tenderness Extremities exam: ABSENT: pedal edema Neurological exam: PRESENT: alert, awake, oriented to person, oriented to place, oriented to time, oriented to situation, CN II-XII grossly intact. ABSENT: motor sensory deficit Psychiatric exam: PRESENT: appropriate affect, normal mood. ABSENT: homicidal ideation, suicidal ideation Skin exam: PRESENT: dry, warm Results Laboratory Results: 08/24/18 05:56 08/24/18 05:56 08/24/18 08/24/18 05:56 05:56 WBC 10.4 RBC 3.76 Hgb 10.0 L Hct 33.0 L MCV 88 MCH 26.7 L MCHC 30.4 L RDW 20.7 H Plt Count 419 Seg Neutrophils % Not Reportable Lymphocytes % Not Reportable Monocytes % Not Reportable Eosinophils % Not Reportable Basophils % Not Reportable Absolute Neutrophils Not Reportable Absolute Lymphocytes Not Reportable Absolute Monocytes Not Reportable Absolute Eosinophils Not Reportable Absolute Basophils Not Reportable Sodium 134.8 L Potassium 4.9 Chloride 102 Carbon Dioxide 26 Anion Gap 7 BUN 28 H Creatinine 0.76 Est GFR ( Amer) > 60 Est GFR (Non-Af Amer) > 60 Glucose 85 Calcium 8.5 Total Bilirubin 0.3 AST 20 ALT 18 Alkaline Phosphatase 82 Total Protein 6.6 Albumin 3.0 L 08/08/18 08/08/18 18:00 18:00 Creatine Kinase 22 L CK-MB (CK-2) 0.52 Troponin I < 0.012 NT-Pro-B Natriuret Pep 2800 H Impressions: Chest X-Ray 08/15/18 00:00 IMPRESSION: Obstructive lung disease. No acute findings Assessment & Plan - Diagnosis (1) UTI due to Klebsiella species Is this a current diagnosis for this admission?: Yes (2) Recurrent Clostridium difficile diarrhea Is this a current diagnosis for this admission?: Yes (3) Acute exacerbation of chronic obstructive pulmonary disease (COPD) Is this a current diagnosis for this admission?: Yes (4) End stage chronic obstructive pulmonary disease Is this a current diagnosis for this admission?: Yes (5) Cardiac dysrhythmia Qualifiers: Arrhythmia type: unspecified cardiac arrhythmia Qualified Code(s): I49.9 - Cardiac arrhythmia, unspecified Is this a current diagnosis for this admission?: Yes (6) Chronic pulmonary embolism Qualifiers: Pulmonary embolism type: unspecified Acute cor pulmonale presence: without acute cor pulmonale Qualified Code(s): I27.82 - Chronic pulmonary embolism Is this a current diagnosis for this admission?: Yes (7) HTN (hypertension) Qualifiers: Hypertension type: essential hypertension Qualified Code(s): I10 - Essential (primary) hypertension Is this a current diagnosis for this admission?: Yes (8) HLD (hyperlipidemia) Qualifiers: Hyperlipidemia type: pure hypercholesterolemia Qualified Code(s): E78.00 - Pure hypercholesterolemia, unspecified Is this a current diagnosis for this admission?: Yes (9) GERD (gastroesophageal reflux disease) Qualifiers: Esophagitis presence: without esophagitis Qualified Code(s): K21.9 - Gastro-esophageal reflux disease without esophagitis Is this a current diagnosis for this admission?: Yes (10) Chronic pain syndrome Is this a current diagnosis for this admission?: Yes (11) Long-term current use of opiate analgesic Is this a current diagnosis for this admission?: Yes (12) Mixed anxiety and depressive disorder Is this a current diagnosis for this admission?: Yes - Time Time Spent with patient: 25-34 minutes Medications reviewed and adjusted accordingly: Yes Anticipated discharge: Home with Homehealth Within: Other - Inpatient Certification Based on my medical assessment, after consideration of the patient's comorbidities, presenting symptoms, or acuity I expect that the services needed warrant INPATIENT care.: Yes I certify that my determination is in accordance with my understanding of Medicare's requirements for reasonable and necessary INPATIENT services [42 CFR 412.3e].: Yes Medical Necessity: Significant Comorbidiites Make Outpatient Treatment Too Risky, Need Close Monitoring Due to Risk of Patient Decompensation, Need For Continuous Telemetry Monitoring, Need for Nebulizer Therapy and Monitoring of Response, Risk of Complication if Not Cared For in Hospital, Risk of Diagnosis Which Will Require Inpatient Eval/Care/Monitoring Post Hospital Care: D/C Rigger Helper Documentation - Plan Summary Plan Summary: Continue current medication therapy. Day # 10 for oral Dificid therapy. Request for PT evaluation. Possible discharge home tomorrow.
[2018-08-24] MEDS ORDERED: ZOLPIDEM TARTRATE 5 MG TABLET PO PRN (20:22)
[2018-08-24] MEDS: ROFLUMILAST 500 MCG TABLET PO SCH (21:28)
[2018-08-24] MEDS: ENOXAPARIN SODIUM INJ 40 MG/0.4 ML DISP.SYRIN SUBCUT SCH (21:28)
[2018-08-24] MEDS: ALPRAZOLAM 0.5 MG TABLET PO PRN (23:38)
[2018-08-25] MEDS: LEVALBUTEROL HCL NEB 1.25 MG/3 ML AMPUL NEB SCH ×2 (01:56→08:45)
[2018-08-25] MEDS ORDERED: ALPRAZOLAM 0.5 MG TABLET PO PRN (04:05)
[2018-08-25] MEDS: OXYCODONE-ACETAMINOPHEN 5-325 MG TABLET PO SCH (06:38)
[2018-08-25] MEDS: OXYCODONE HCL IR 5 MG TABLET PO SCH (06:38)
[2018-08-25] MEDS: FIDAXOMICIN 200 MG TABLET PO SCH (06:38)
[2018-08-25] MEDS: DILTIAZEM HCL 180 MG CAPSULE.CR PO SCH (09:23)
[2018-08-25] MEDS: FAMOTIDINE 20 MG TABLET PO SCH (09:24)
[2018-08-25] MEDS: CITALOPRAM HYDROBROMIDE 20 MG TABLET PO SCH (09:24)
[2018-08-25] MEDS: NYSTATIN TOPICAL POWDER 15 GM TP SCH (09:25)
[2018-08-25] MEDS: ACETAZOLAMIDE 250 MG TABLET PO SCH (09:25)
[2018-08-25] MEDS: PREDNISONE 5 MG TABLET PO SCH (09:25)
[2018-08-25 12:48] VITALS: BP 112/50
== END 2018-08-25 13:38 | disposition home health service (06) | DRG 190 ==
LOC: ER 16:01 → EH 23:46 → 3S 08-09 03:39
PROVIDERS: ADMIT Internal Medicine Geriatric Medicine; ATTEND Internal Medicine Geriatric Medicine
DX: J44.1 Chronic obstructive pulmonary disease with (acute) exacerbation (principal); A41.9 Sepsis, unspecified organism; N39.0 Urinary tract infection, site not specified; I27.82 Chronic pulmonary embolism; A04.71 Enterocolitis due to Clostridium difficile, recurrent; Z88.8 Allergy status to other drugs, medicaments and biological substances; E78.5 Hyperlipidemia, unspecified; I10 Essential (primary) hypertension; G47.30 Sleep apnea, unspecified; K57.90 Diverticulosis of intestine, part unspecified, without perforation or abscess without bleeding; K21.9 Gastro-esophageal reflux disease without esophagitis; Z87.11 Personal history of peptic ulcer disease; M19.90 Unspecified osteoarthritis, unspecified site; F32.9 Major depressive disorder, single episode, unspecified; Z86.14 Personal history of Methicillin resistant Staphylococcus aureus infection; Z87.891 Personal history of nicotine dependence; J84.10 Pulmonary fibrosis, unspecified; G89.4 Chronic pain syndrome; Z79.891 Long term (current) use of opiate analgesic; F41.9 Anxiety disorder, unspecified; B96.1 Klebsiella pneumoniae [K. pneumoniae] as the cause of diseases classified elsewhere
CPT/HCPCS: 36415; 36600; 71045; 71046; 80048; 80053; 81001; 82550; 82553; 82803; 83880; 84484; 85025; 87040; 87070; 87086; 87088; 87186; 87205; 87493; 93005; 93010; 94660; 99285; J0692; J1642; J1650; J1956; J2920; J2930; J3475; J3490; J7512; J7620

== ENCOUNTER → 2019-01-17 | Outpatient (CLI) | payer MEDICARE, OTHER ==
--- NOTE | 2019-01-17 12:59 | RADIOLOGY REPORT (SQ) ---
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 RADIATION DOSE: NA LIMITATIONS: none FINDINGS: LUNGS AND PLEURA: Lungs are hyperinflated and hyperlucent from obstructive disease. No gross acute infiltrates. No pleural effusion or pneumothorax. MEDIASTINUM AND HILAR STRUCTURES: Prominent central pulmonary arteries from pulmonary hypertension HEART AND VASCULAR STRUCTURES: No cardiomegaly. BONES: Chronic T11 greater than 50% compression deformity HARDWARE: Right-sided permanent central line tip superior vena cava. Left-sided dual lead pacemaker OTHER: No other significant finding. IMPRESSION: Obstructive lung disease. No acute infiltrates. TECHNICAL DOCUMENTATION: JOB ID: [id number] [employer]- All Rights Reserved Reading location - IP/workstation name: [email or web address]
== END ==
LOC: RAD 12:31
PROVIDERS: ATTEND Internal Medicine Pulmonary Disease
DX: J43.2 Centrilobular emphysema (principal)
CPT/HCPCS: 71046; 87070; 87077; 87205

== ENCOUNTER 2019-01-28 23:58 | Inpatient (IN) | payer MEDICARE, OTHER ==
[2019-01-29 00:29] LABS: ARTERIAL BLOOD BASE EXCESS -7.2 mmol/L; ARTERIAL BLOOD H2CO3 1.46 mmol/L (1.05-1.35); ARTERIAL BLOOD HCO3 20.2 mmol/L (20-24); ARTERIAL BLOOD O2 SATURATION 96.5 % (94-98); ARTERIAL BLOOD PCO2 48.6 mmHg (35-45); ARTERIAL BLOOD PH 7.24 (7.35-7.45); ARTERIAL BLOOD PO2 100.1 mmHg (80-100); ARTERIAL BLOOD TOTAL CO2 21.7 mmol/L (21-25)
[2019-01-29 00:30] LABS: ARTERIAL BLOOD FIO2 3L
[2019-01-29] MEDS ORDERED: NORMAL SALINE 1000 ML 1,000 ML IV ONE (00:56)
[2019-01-29 01:12] LABS: ALBUMIN 3.3 g/dL (3.5-5.0); ALKALINE PHOSPHATASE 106 U/L (38-126); ANION GAP 12 (5-19); ASPARTATE AMINO TRANSFERASE 27 U/L (14-36); BILIRUBIN,DIRECT 0.2 mg/dL (0.0-0.4); BILIRUBIN,TOTAL 0.3 mg/dL (0.2-1.3); BLOOD UREA NITROGEN 17 mg/dL (7-20); CALCIUM 8.8 mg/dL (8.4-10.2); CARBON DIOXIDE 18 mmol/L (22-30); CHLORIDE 108 mmol/L (98-107); GLUCOSE 155 mg/dL (75-110); POTASSIUM 3.1 mmol/L (3.6-5.0); TOTAL PROTEIN 6.5 g/dL (6.3-8.2)
[2019-01-29 01:17] LABS: HEMATOCRIT 37.2 % (36.0-47.0); HEMOGLOBIN 11.1 g/dL (12.0-15.5); MEAN CORPUSCULAR HEMOGLOBIN 26.1 pg (27.0-33.4); MEAN CORPUSCULAR HGB CONC 29.9 g/dL (32.0-36.0); MEAN CORPUSCULAR VOLUME 87 fl (80-97); PLATELET COUNT 320 10^3/uL (150-450); RED BLOOD COUNT 4.27 10^6/uL (3.72-5.28); RED CELL DISTRIBUTION WIDTH 19.4 % (11.5-14.0); WHITE BLOOD COUNT 22.7 10^3/uL (4.0-10.5)
--- NOTE | 2019-01-29 01:17 | EKG REPORT ---
SEVERITY:- ABNORMAL ECG - SINUS TACHYCARDIA LEFT ANTERIOR FASCICULAR BLOCK PROBABLE LVH WITH SECONDARY REPOL ABNRM : Confirmed by: Mervat Mancuso 29-Jan-2019 01:17:02
[2019-01-29 01:20] LABS: NT PRO BNP 492 pg/mL (<450)
--- NOTE | 2019-01-29 01:42 | RADIOLOGY REPORT (SQ) ---
EXAM DESCRIPTION: X-RAY CHEST- One View CLINICAL HISTORY: Dyspnea COMPARISON: January 17, 2019 TECHNIQUE: Single view of the chest. FINDINGS: There are overlying EKG leads. Left chest wall port terminates in the expected location of the superior vena cava. Hyperexpanded hyperlucent appearance is again noted consistent with chronic obstructive pulmonary disease. Increased interstitial markings in the bilateral lung bases is favored to represent chronic interstitial process. There are no new discrete air space infiltrates, pneumothoraces or pleural effusions. The pulmonary vascularity is stable in appearance. The cardiomediastinal silhouette is normal in size. Left chest wall cardiac pacer device remains in stable position. Osseous structures are grossly unchanged. IMPRESSION: Stable examination when compared with January 17, 2019 with redemonstration of findings compatible with chronic obstructive pulmonary process.
[2019-01-29 01:43] LABS: ABSOLUTE LYMPHOCYTES# (MANUAL) 2.5 10^3/uL (0.5-4.7); ABSOLUTE MONOCYTES # (MANUAL) 0.5 10^3/uL (0.1-1.4); ANISOCYTOSIS 2+; BASOPHILS % (MANUAL) 0 % (0-2); BURR CELLS SLIGHT; EOSINOPHILS % (MANUAL) 0 % (0-6); HYPOCHROMASIA SLIGHT; LYMPHOCYTES % (MANUAL) 11 % (13-45); MONOCYTES % (MANUAL) 2 % (3-13); OVALOCYTES 1+; PLATELET COMMENT ADEQUATE; POIKILOCYTOSIS 1+; SEGMENTED NEUTROPHILS % (MAN) 87 % (42-78); TOTAL CELLS COUNTED 100; TOXIC GRANULATION SLIGHT
[2019-01-29 02:08] LABS: TROPONIN I < 0.012 ng/mL
[2019-01-29 03:36] LABS: PHOSPHORUS 4.7 mg/dL (2.5-4.5)
[2019-01-29] MEDS ORDERED: 1/2 NORMAL SALINE 1,000 ML IV PRN (04:39)
[2019-01-29] MEDS ORDERED: IPRATROPIUM/ALBUTEROL 0.5-2.5 MG/3 ML AMPUL NEB ONE (04:45)
--- NOTE | 2019-01-29 04:51 | ER Document Report ---
Entered by MARY GAFFNEY SCRIBE 01/29/19 0014 Acting as scribe for:LILIA HARRINGTON IV, MD ED Respiratory Problem - General Stated Complaint: WEAKNESS Primary Care Provider: SARITA CASTILLO MD [Primary Care Provider] - Follow up as needed Mode of Arrival: Ambulatory Information source: Patient Notes: This 78 year old female patient presents to the emergency department today with complaints of respiratory distress. Patient has an extensive pulmonary history including COPD, pneumonia, and respiratory failure. TRAVEL OUTSIDE OF THE [place] IN LAST 30 DAYS: No - Related Data Allergies/Adverse Reactions: erythromycin base [Erythromycin Base] Allergy (Unknown, Verified 05/31/18 17:23) Past Medical History - General Information source: [facility] Records - Social History Smoking Status: Former Smoker Family History: CAD - This is in not immediate family members., DM, Hyperlipidemia, Hypertension - Past Medical History Cardiac Medical History: Reports: Hx Hypercholesterolemia, Hx Hypertension, Hx Pulmonary Embolism Pulmonary Medical History: Reports: Hx Asthma, Hx Bronchitis, Hx COPD, Hx Pneumonia, Hx Respiratory Failure, Hx Sleep Apnea Endocrine Medical History: Renal/ Medical History: Reports: Hx Kidney Stones - 20 year ago Malignancy Medical History: GI Medical History: Reports: Hx Diverticulitis, Hx Gastroesophageal Reflux Disease, Hx Ulcer Musculoskeletal Medical History: Skin Medical History: Reports Hx MRSA Psychiatric Medical History: Reports: Hx Depression Past Surgical History: Reports: Hx Bowel Surgery - Old colostomy from a tear intestines resectioned, Hx Cardiac Surgery - pacemaker, Hx Colostomy - with reversal, 6 years ago, Hx Hysterectomy, Hx Orthopedic Surgery - left hip replacement 11/04/2014, RIGHT KNEE CYST REMOVAL, Hx Pacemaker - Immunizations Immunizations up to date: Yes Hx Diphtheria, Pertussis, Tetanus Vaccination: No Hx Pneumococcal Vaccination: 06/04/11 Review of Systems - Review of Systems -: Yes ROS unobtainable due to patient's medical condition Physical Exam - Vital signs Vitals: Pulse Ox 95 01/28/19 23:59 - Notes Notes: Physical Exam: General: Alert. HEENT: Normocephalic. Atraumatic. PERRL. Extraocular movements intact. Oropharynx clear. Neck: Supple. Non-tender. Respiratory: No respiratory distress. Clear and equal breath sounds bilaterally. Cardiovascular: Tachycardic. Abdominal: Normal Inspection. Non-tender. No distension. Normal Bowel Sounds. Back: No gross abnormalities. Extremities: Moves all four extremities. Upper extremities: Normal inspection. Normal ROM. Lower extremities: Normal inspection. No edema. Normal ROM. Neurological: Normal cognition. AAOx4. Normal speech. Psychological: Normal affect. Normal Mood. Skin: Warm. Dry. Normal color. Course - Re-evaluation Re-evalutation: 01/29/19 02:59 Patient's poor prognosis discussed with patient's family. Family wants to attempt BiPAP with modifications to the mask to see if they can improve her respiratory status and not have to ultimately resort to intubating the patient for fear that she will not be able to come off the ventilator. - Vital Signs Vital signs: Temp Pulse Resp BP Pulse Ox 99.2 F 107 H 24 H 112/54 L 94 01/29/19 00:44 01/29/19 00:10 01/29/19 04:01 01/29/19 04:00 01/29/19 04:01 - Laboratory Result Diagrams: 01/29/19 00:15 01/29/19 00:15 Laboratory results interpreted by me: 01/29/19 01/29/19 01/29/19 00:05 00:15 00:15 WBC 22.7 H Hgb 11.1 L MCH 26.1 L MCHC 29.9 L RDW 19.4 H Seg Neuts % (Manual) 87 H Lymphocytes % (Manual) 11 L Monocytes % (Manual) 2 L Abs Neuts (Manual) 19.7 H Carbonic Acid 1.46 H ABG pH 7.24 L ABG pCO2 48.6 H ABG pO2 100.1 H Potassium 3.1 L Chloride 108 H Carbon Dioxide 18 L Est GFR (MDRD) Non-Af 57 L Glucose 155 H Phosphorus Magnesium NT-Pro-B Natriuret Pep Albumin 3.3 L 01/29/19 01/29/19 00:15 00:15 WBC Hgb MCH MCHC RDW Seg Neuts % (Manual) Lymphocytes % (Manual) Monocytes % (Manual) Abs Neuts (Manual) Carbonic Acid ABG pH ABG pCO2 ABG pO2 Potassium Chloride Carbon Dioxide Est GFR (MDRD) Non-Af Glucose Phosphorus 4.7 H Magnesium 3.4 H NT-Pro-B Natriuret Pep 492 H Albumin - EKG Interpretation by Me Additional EKG results interpreted by me: 01/29/19 02:16 EKG obtained on 01/29/2019 00 07 hours was interpreted by this MD. Findings: Sinus tachycardia, rate 107, normal axis, P waves proceed QRS complexes, QRS complexes appear narrow, ST segments are nonspecific. Impression: Sinus tachycardia with nonspecific ST segments. - Consults Dr. Avendano Time consulted: 02:16 Reason for consultation: 01/29/19 02:16 COPD exacerbation Consulted provider: will see as inpatient IMER DRISCOLL NP Time consulted: 03:00 Reason for consultation: 01/29/19 03:00 COPD EXACERBATION WITH PRIOR ADMISSIONS TO ICU Consulted provider: will come to ER Critical Care Note - Critical Care Note Total time excluding time spent on procedures (mins): 60 Discharge - Discharge Clinical Impression: Decompensated COPD with exacerbation (chronic obstructive pulmonary disease) Condition: Serious Disposition: ADMITTED OBSERVATION Admitting Provider: Jevon (Propeller Engineer) Unit Admitted: ICU Referrals: SARITA CASTILLO MD [Primary Care Provider] - Follow up as needed I personally performed the services described in the documentation, reviewed and edited the documentation which was dictated to the scribe in my presence, and it accurately records my words and actions.
[2019-01-29 06:00] LABS: APPEARANCE,URINE CLEAR; BILIRUBIN,URINE NEGATIVE (NEGATIVE); COLOR,URINE YELLOW; GLUCOSE, URINE NEGATIVE (NEGATIVE); KETONES,URINE NEGATIVE (NEGATIVE); LEUKOCYTE ESTERASE,URINE NEGATIVE (NEGATIVE); NITRITE,URINE NEGATIVE (NEGATIVE); PROTEIN,URINE NEGATIVE (NEGATIVE); URINE SPECIFIC GRAVITY 1.009; UROBILINOGEN,URINE NEGATIVE mg/dL (<2.0)
[2019-01-29] MEDS ORDERED: POTASSIUM CHLORIDE 10 MEQ TABLET.ER PO SCH (06:00)
[2019-01-29] MEDS ORDERED: MEROPENEM 1 GM in NORMAL SALINE 50 ML IV ONE (07:00)
--- NOTE | 2019-01-29 07:21 | RADIOLOGY REPORT (SQ) ---
EXAM DESCRIPTION: CT CHEST ANGIOGRAPHY WITHOUT THEN WITH IV CONTRAST, CT ABDOMEN PELVIS WITH IV CONTRAST COMPLETED DATE/TME: 01/29/2019 00:00 CLINICAL HISTORY: 78 years, Female, R/O PE, CP COMPARISON: CT chest dated 08/20/2016 TECHNIQUE: Axial CT images of the chest, abdomen, and pelvis were obtained after the administration of IV contrast. MPR and MIP reconstructions were performed. [facility] [id number] Images stored on PACS. All CT scanners at this facility use dose modulation, iterative reconstruction, and/or weight based dosing when appropriate to reduce radiation dose to as low as reasonably achievable (ALARA). [facility]: Dose Right [facility]: CareDose [facility]: Dose Right [facility]: Teradose 4D [facility]: Smart Royal Treatment [employer] LIMITATIONS: None. FINDINGS: Positive for acute pulmonary embolism within the branches of the right lower lobe. No evidence of right heart strain. The thyroid gland is normal. The central airways are patent. There are atherosclerotic calcific effusions of the coronary arteries. A left chest wall pacemaker is in place. There is no mediastinal lymphadenopathy. No pericardial effusion. There are severe centrilobular emphysema. There is no pneumothorax or pleural effusion. There is a 5 mm nodule within the left upper lobe which is larger and more prominent compared to the prior. There is a dependent consolidation along the right lower lobe. There is a mild chronic anterior wedge compression deformity of T11. The liver, gallbladder, pancreas, spleen, and adrenal glands are unremarkable. Bilateral renal cysts are noted. No evidence of hydronephrosis bilaterally. There is no intraperitoneal free air or fluid. There is no lymphadenopathy. There are atherosclerotic calcific effusions of the abdominal aorta and iliac branches without evidence of an aneurysm. The stomach and small bowel are unremarkable. The colon contains a moderate amount of stool. A Ravi catheter is in place. There are postsurgical changes to the bilateral femurs. No lytic or blastic bone lesion is identified. IMPRESSION: Positive for acute pulmonary embolism within the branches of the right lower lobe. No evidence of right heart strain. Consolidation along the dependent portion of the right lower lobe is likely due to atelectasis or pneumonia rather than pulmonary infarction. The above findings were discussed with and acknowledged by Dr. Escoto at 6:19 AM on 01/29/2019. Severe centrilobular emphysema with an enlarging left upper lobe mass which measures 5 mm, concerning for malignancy. No acute findings in the abdomen or pelvis. TECHNICAL DOCUMENTATION: Quality ID # [id number]: Final reports with documentation of one or more dose reduction techniques (e.g., Automated exposure control, adjustment of the mA and/or kV according to patient size, use of iterative reconstruction technique) copyright 2011 [employer]- All Rights Reserved
[2019-01-29] MEDS ORDERED: POTASSI CL 20 MEQ/50 ML RIDER 20 MEQ/50 ML RTUPB IV ONE (07:52)
[2019-01-29] MEDS ORDERED: DEXTROSE 50%-WATER 25 GM/50 ML DISP.SYRIN IV PRN ×2 (07:55)
[2019-01-29] MEDS ORDERED: GLUCAGON,HUMAN RECOMB 1 MG INJ SUBCUT PRN (07:55)
[2019-01-29] MEDS ORDERED: DEXTROSE 40% GEL 15 GM TUBE PO PRN ×2 (07:55)
[2019-01-29] MEDS: MEROPENEM 1 GM in NORMAL SALINE 50 ML IV SCH ×2 (08:00→17:15)
[2019-01-29] MEDS: RINGERS SOLUTION,LACTATED 1,000 ML IV PRN ×2 (08:00→15:03)
--- NOTE | 2019-01-29 08:00 | RADIOLOGY REPORT (SQ) ---
EXAM DESCRIPTION: US ABDOMEN COMPLETED DATE/TME: 01/29/2019 00:00 CLINICAL HISTORY: 78 years, Female, abdominal pain with gall bladder distension COMPARISON: CT dated 07/15/2017 TECHNIQUE: Grayscale and color images of the abdomen. LIMITATIONS: None. FINDINGS: The visualized portions of the pancreas and IVC appear unremarkable. There is atherosclerotic plaque involving the abdominal aorta without evidence of an aneurysm. The liver demonstrates increased echotexture and measures 17.6 cm. No focal hepatic lesions are identified. The hepatic veins and main portal vein are patent. The gallbladder appears normal. No evidence of cholelithiasis, wall thickening, or pericholecystic fluid. The common bile duct measures up to 2 mm in diameter. Both kidneys demonstrate increased echotexture. There is no evidence of hydronephrosis bilaterally. Bilateral renal cysts are noted. There is no ascites. The spleen measures 9.0 cm. IMPRESSION: Fatty liver. Echogenic kidneys, compatible with chronic medical renal disease. No evidence of cholelithiasis or acute cholecystitis. copyright 2010 [employer]- All Rights Reserved
[2019-01-29] MEDS ORDERED: HEPARIN SOD (PORCINE) 1,000 UNIT/ML 10 ML VIAL IV ONE (08:09)
[2019-01-29] MEDS ORDERED: VANCOMYCIN HCL 0 MG in DEXTROSE 5%-WATER 250 ML IV NR (08:15)
--- NOTE | 2019-01-29 08:28 | CRITICAL CARE ADMISSION REPORT ---
HPI Date:: 01/29/19 Time:: 03:45 Reason for ICU Reason:: COPD exacerbation with respiratory failure HPI: Mrs. Mitchell is a 78-year-old female with history of Agamz-Blxfnapwt-Sogeo syndrome status post pacemaker, COPD with chronic bronchitis, multiple pneumonias and urinary tract infections with the most recent pneumonia on 01/17/2019 due to Pseudomonas who presented with increasing shortness of breath over the past couple days, increasing cough from baseline with more sputum production that remains a yellowish baseline color, and weakness. To note, patient is on 3 L home O2 alternating BiPAP off and on throughout the day as needed. Per the ED physician, EMS provided magnesium, nebs, Solu-Medrol in route with no improvement. Patient SPO2 93% on room air in the ED with tachypnea respiratory rate 40s and was placed on BiPAP to assist with work of breathing. Upon my evaluation, patient continued to have mild scalene accessory muscle use with RR upper 30s to low 40s after having been on BiPAP for at least 15 minutes. Patient also endorses generalized abdominal pain for which there is no guarding, rigidity, or rebound tenderness, although there is a ventral hernia that is easily reducible. Patient also experiencing urinary frequency and dysuria for which she is having difficulty voiding and intermittently "trickles" on herself. Patient will be admitted to ICU for respiratory failure and further workup. History obtained from:: patient, daughters, ED physician, medical record - Diagnosis/Plan (1) Acute exacerbation of chronic obstructive pulmonary disease (COPD) Is this a current diagnosis for this admission?: Yes (2) Chronic bronchitis Qualifiers: Chronic bronchitis type: unspecified Qualified Code(s): J42 - Unspecified chronic bronchitis Is this a current diagnosis for this admission?: Yes (3) Hypercapnic respiratory failure Qualifiers: Chronicity: acute Qualified Code(s): J96.02 - Acute respiratory failure with hypercapnia Is this a current diagnosis for this admission?: Yes (4) Leukocytosis, unspecified Qualifiers: Leukocytosis type: unspecified Qualified Code(s): D72.829 - Elevated white blood cell count, unspecified Is this a current diagnosis for this admission?: Yes (5) Metabolic acidemia Is this a current diagnosis for this admission?: Yes (6) Protein calorie malnutrition Qualifiers: Protein-calorie malnutrition severity: unspecified severity Qualified Code(s): E46 - Unspecified protein-calorie malnutrition Is this a current diagnosis for this admission?: Yes (7) GERD (gastroesophageal reflux disease) Qualifiers: Is this a current diagnosis for this admission?: Yes (8) H/O cardiac pacemaker Is this a current diagnosis for this admission?: Yes Plan: due to Medeiros Parkinson White Syndrome (9) Mixed anxiety and depressive disorder Is this a current diagnosis for this admission?: Yes (10) Urinary retention Is this a current diagnosis for this admission?: Yes (11) HTN (hypertension) Qualifiers: Hypertension type: essential hypertension Qualified Code(s): I10 - Essential (primary) hypertension Is this a current diagnosis for this admission?: Yes Plan: (12) HLD (hyperlipidemia) Qualifiers: Hyperlipidemia type: unspecified Qualified Code(s): E78.5 - Hyperlipidemia, unspecified Is this a current diagnosis for this admission?: Yes (14) Osteoarthritis Qualifiers: Osteoarthritis location: unspecified site Osteoarthritis type: unspecified Qualified Code(s): M19.90 - Unspecified osteoarthritis, unspecified site Plan: Prn pain meds for now (15) Hypokalemia Is this a current diagnosis for this admission?: Yes (16) Hyperchloremia Is this a current diagnosis for this admission?: Yes (17) Low bicarbonate level Is this a current diagnosis for this admission?: Yes - . Plan Summary: Mrs. Mitchell will be admitted to the ICU monitor for worsening respiratory failure and remains a full code at this time. We will hold off on resuming her home Percocet for RLS and osteoarthritis at this time given the need for further diagnostic work-up. Can judiciously prescribe IV push pain meds with consideration of low-dose anxiolytics for her anxiety as indicated. Currently holding home p.o. depression medication pending further work-up, but will need to resume as soon as possible. Her BNP is not significantly elevated and troponin normal without evidence of ischemia or infarction on EKG. Given her history of hypertension, will order antihypertensive medications IV as needed to keep SBP less than 160. Will support respiratory status with nasal cannula/BiPAP as needed for work of breathing and obtain CTA chest to rule out acute pulmonary embolism. We will start the patient on grams twice daily of Solu-Medrol, duo nebs every 6 hours, PRN albuterol for shortness of breath/wheezing, obtain sputum culture/flu & MRSA swab/viral panel, and start empiric antibiotic therapy. Continue to monitor for increasing work of breathing necessitating the need for possible intubation, which the family truly hopes to avoid at this time communicating they are concerned that the patient will have difficulty coming off the ventilator. Start stress ulcer prophylaxis given history of reflux and ulcer until workup and plan complete. Continue n.p.o. status and obtain CT of the abdomen pelvis with IV contrast which will be the same contrast load as the PE study according to the tech I spoke to in radiology. I have discussed the importance and necessity of the study with [employer], the patient's daughter. She understands contrast-induced nephropathy as a potential adverse effect from IV contrast and agrees with proceeding for imaging. Provide gentle hydration with IV fluids and replete potassium. Given history of UTIs and current symptoms with urinary retention upon review of systems, will place indwelling urinary catheter to obtain urinalysis with culture as well as relief and strict I&O. Given leukocytosis and history of frequent pneumonia containing Pseudomonas species and UTIs, will start empiric meropenem which will provide intra-abdominal coverage as well as Pseudomonas. Keep skin underneath right breast dry and utilize antifungal cream as needed. For hyperglycemia, will check capillary glucose every 6 hours for now and if glucose greater than 180 will start insulin sliding scale coverage. To note patient is on steroids, so glucose may increase throughout the day. More to follow by Petrophysical Engineer throughout the day after imaging is completed. Update: patient noted to have RLL pulmonary embolism for which a heparin gtt will be initiated by Petrophysical Engineer at this time. Past Medical History Cardiac Medical History: Reports: Hyperlipidema, Hypertension, Pulmonary Embolism, Other - Jqwn-Iagszklgh-Hvcuf syndrome for which pt on Diltiazem &pacemaker inserted Denies: Atrial Fibrillation, Congestive Heart Failure, Coronary Artery Disease, Myocardial Infarction Pulmonary Medical History: Reports: Asthma, Bronchitis, Chronic Obstructive Pulmonary Disease (COPD), Pneumonia, Respiratory Failure, Sleep Apnea EENT Medical History: Denies: None Neurological Medical History: Denies: Hemorrhagic CVA, Ischemic CVA, Seizures Endocrine Medical History: Denies: None, Hyperthyroidism, Hypothyroidism Renal/ Medical History: Denies: Chronic Kidney Disease Malignancy Medical History: Reports: Other - has right chest wall mediport solely for difficult blood draws Denies: None GI Medical History: Reports: Diverticulitis, Gastroesophageal Reflux Disease - Hx ulcer, doesn't know if gastric or duodenal in nature Musculoskeltal Medical History: Reports: Arthritis Denies: Fibromyalgia, Gout Skin Medical History: Reports: Other - intermittently experiences Yeast dermatitis Denies: Eczema, Psoriasis Psychiatric Medical History: Reports: Depression, General Anxiety Disorder Traumatic Medical History: Reports: None Hematology: Denies: Anemia, Sickle Cell Disease, Bleeding Tendencies, Neutropenia Infectious Medical History: Reports: Clostridium Difficile - successfully treated with antibiotics, Methicillin-Resistant Staph Aureus - patient uncertain however it is on her hospital problem list from past Denies: HIV Past Surgical History Past Surgical History: Reports: Colostomy - from perf diverticulitis s/p colstomy reversal 6 years ago, Hysterectomy, Orthopedic Surgery - left hip replacement 11/04/2014, RIGHT KNEE CYST REMOVAL, Pacemaker - for kyog-dymxtedxj-odqzj syndrome Social/Family History - Social History Lives with: Other - daughter Smoking Status: Unknown if Ever Smoked Frequency of Alcohol Use: None Hx Recreational Drug Use: No Drugs: None Hx Prescription Drug Abuse: No - Family History Family History: CAD, DM, Hyperlipidemia, Hypertension - Medication/Allergies Home Medications: Acetazolamide [Diamox 250 mg Tab] 250 mg PO Q12 05/31/18 Alprazolam [Xanax 0.5 mg Tablet] 0.5 mg PO Q8HP PRN 05/31/18 Buspirone HCl [Buspar 15 mg Tablet] 7.5 mg PO Q8 05/31/18 Citalopram Hydrobromide [Celexa 40 mg Tablet] 40 mg PO DAILY 05/31/18 Montelukast Sodium [Singulair 10 mg Tablet] 10 mg PO QPM 05/31/18 Roflumilast [Daliresp 500 mcg Tablet] 500 mg PO QHS 05/31/18 Ropinirole HCl [Requip] 1 mg PO Q8 05/31/18 Zolpidem Tartrate [Ambien] 5 mg PO HSP PRN 05/31/18 Diltiazem HCl [Diltiazem 24Hr ER (Cd)] 180 mg PO Q12 08/09/18 Ranitidine HCl 150 mg PO BID 08/09/18 Levalbuterol Tartrate [Xopenex Hfa] 1 puff IH Q4HP PRN 01/29/19 Oxycodone HCl/Acetaminophen [Endocet 7.5-325 mg Tablet] 1 tab PO Q6HP PRN 01/29/19 Allergies/Adverse Reactions: erythromycin base [Erythromycin Base] Allergy (Unknown, Verified 05/31/18 17:23) Review of Systems Constitutional: PRESENT: anorexia - for a couple of days, though doesn't eat much at baseline per daughter, headache(s) - but no more frequent than normal per pt, weakness - slightly more than normal per pt report. ABSENT: chills, fever(s), night sweats Eyes: ABSENT: visual disturbances Ears: ABSENT: hearing changes - not acutely, but has been declining with age Nose, Mouth, and Throat: ABSENT: mouth pain, sore throat, vertigo Breasts: PRESENT: other - yeast dermatitis presently under R breast Cardiovascular: PRESENT: dyspnea on exertion, palpitations - "my heart feels like it's racing" "happens time to time at home". ABSENT: chest pain, edema Respiratory: PRESENT: cough - slight increase from normal, dyspnea, sputum - slight increase from baseline sputum production with chronic bronchitis; same yellowish color-no change. ABSENT: hemoptysis Gastrointestinal: PRESENT: abdominal pain - reports "prickly pain" and points to epigastric. ABSENT: coffee ground emesis, diarrhea, hematemesis, hematochezia, melena, nausea, vomiting Genitourinary: PRESENT: difficulty urinating, dysuria, other - new episodic incontinence "trickle" Musculoskeletal: ABSENT: joint swelling Integumentary: PRESENT: other - yeast dermatitis off/on under breast tissue; currently present under R breast. 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 ABSENT: abnormal speech, confusion, convulsions, dizziness, tingling, tremor(s), vertigo Psychiatric: PRESENT: anxiety, depression. ABSENT: hallucinations, homidical id eation, suicidal ideation Endocrine: ABSENT: cold intolerance, heat intolerance, polydipsia, polyphagia, polyuria Hematologic/Lymphatic: ABSENT: easy bleeding, easy bruising, lymphadenopathy Allergic/Immunologic: ABSENT: seasonal rhinorrhea Physical Exam Vital Signs: Temp Pulse Resp BP Pulse Ox 99.2 F 107 H 24 H 112/54 L 94 01/29/19 00:44 01/29/19 00:10 01/29/19 04:01 01/29/19 04:00 01/29/19 04:01 Intake & Output 01/27/19 01/28/19 01/29/19 06:59 06:59 06:59 Weight 56.699 kg Weight/Height Weight 56.699 kg Height 5 ft 1 in General appearance: PRESENT: cooperative, mild distress - with scalene accessory muscle use for respiration, thin, other - malnourished Head exam: PRESENT: atraumatic, normocephalic Eye exam: PRESENT: conjunctiva pink, EOMI, PERRLA. ABSENT: periorbital swelling, scleral icterus Ear exam: PRESENT: normal external ear exam Mouth exam: PRESENT: dry mucosa, moist, neck supple, tongue midline Throat exam: ABSENT: tonsillar erythema, tonsillar exudate Neck exam: PRESENT: full ROM. ABSENT: JVD, lymphadenopathy, tenderness, tracheal deviation Respiratory exam: PRESENT: accessory muscle use - mild scalene use, clear to auscultation luci, symmetrical. ABSENT: retraction Cardiovascular exam: PRESENT: RRR, +S1, +S2. ABSENT: diastolic murmur, gallop, rubs, systolic murmur Pulses: PRESENT: normal carotid pulses, +2 pedal pulses bilateral Vascular exam: PRESENT: normal capillary refill, pallor GI/Abdominal exam: PRESENT: diminished bowel sounds, hernia - chronic ventral hernia from ex-lap; easily reducible, soft. ABSENT: distended, guarding, rebound, rigid, tenderness Rectal exam: PRESENT: deferred Gentrourinary exam: ABSENT: erythema, urethral discharge Extremities exam: PRESENT: full ROM. ABSENT: clubbing, joint swelling, pedal edema Musculoskeletal exam: PRESENT: full ROM. ABSENT: tenderness Neurological exam: PRESENT: alert, awake, oriented to person, oriented to place, oriented to time, oriented to situation, CN II-XII grossly intact Psychiatric exam: PRESENT: appropriate affect Laboratory/Radiographs Laboratory Results: 01/29/19 00:15 01/29/19 00:15 01/29/19 01/29/19 01/29/19 00:05 00:15 00:15 WBC 22.7 H RBC 4.27 Hgb 11.1 L Hct 37.2 MCV 87 MCH 26.1 L MCHC 29.9 L RDW 19.4 H Plt Count 320 Seg Neutrophils % Not Reportable Carbonic Acid 1.46 H HCO3/H2CO3 Ratio 13:1 ABG pH 7.24 L ABG pCO2 48.6 H ABG pO2 100.1 H ABG HCO3 20.2 ABG O2 Saturation 96.5 ABG Base Excess -7.2 FiO2 3L Sodium 138.2 Potassium 3.1 L Chloride 108 H Carbon Dioxide 18 L Anion Gap 12 BUN 17 Creatinine 0.95 Est GFR ( Amer) > 60 Glucose 155 H Calcium 8.8 Phosphorus Magnesium Total Bilirubin 0.3 AST 27 Alkaline Phosphatase 106 Total Protein 6.5 Albumin 3.3 L 01/29/19 00:15 WBC RBC Hgb Hct MCV MCH MCHC RDW Plt Count Seg Neutrophils % Carbonic Acid HCO3/H2CO3 Ratio ABG pH ABG pCO2 ABG pO2 ABG HCO3 ABG O2 Saturation ABG Base Excess FiO2 Sodium Potassium Chloride Carbon Dioxide Anion Gap BUN Creatinine Est GFR ( Amer) Glucose Calcium Phosphorus 4.7 H Magnesium 3.4 H Total Bilirubin AST Alkaline Phosphatase Total Protein Albumin 01/29/19 00:15 Troponin I < 0.012 NT-Pro-B Natriuret Pep 492 H Impressions: Chest X-Ray 01/29/19 00:55 IMPRESSION: Stable examination when compared with January 17, 2019 with redemonstration of findings compatible with chronic obstructive pulmonary process. All labs, radiographs, diagnostic studies and EKGs were personally reviewed: Yes Critical Time Critical Time (minutes): 80 -: The care of a critically ill patient is dynamic. This note represents a static moment in the admission process. Orders and treatments may be given simultaneously and urgently, and time is not technical account representative of the treatment process. This patient requires Critical Care secondary to life threatening organ or limb dysfunction. Without Critical Care services, the patient is at risk for incre ased mortality and morbidity.
[2019-01-29] MEDS: IPRATROPIUM/ALBUTEROL 0.5-2.5 MG/3 ML AMPUL NEB SCH ×3 (08:37→20:57)
[2019-01-29 08:47] LABS: INTERNATIONAL RATION (INR) 1.08
[2019-01-29 08:48] LABS: PARTIAL THROMBOPLASTIN TIME 26.3 SEC (23.5-35.8)
[2019-01-29 08:50] LABS: APPEARANCE,URINE CLEAR; BILIRUBIN,URINE NEGATIVE (NEGATIVE); COLOR,URINE YELLOW; GLUCOSE, URINE NEGATIVE (NEGATIVE); HEMATOCRIT 34.2 % (36.0-47.0); HEMOGLOBIN 10.7 g/dL (12.0-15.5); KETONES,URINE NEGATIVE (NEGATIVE); LEUKOCYTE ESTERASE,URINE NEGATIVE (NEGATIVE); MEAN CORPUSCULAR HEMOGLOBIN 26.3 pg (27.0-33.4); MEAN CORPUSCULAR HGB CONC 31.3 g/dL (32.0-36.0); MEAN CORPUSCULAR VOLUME 84 fl (80-97); NITRITE,URINE NEGATIVE (NEGATIVE); PLATELET COUNT 335 10^3/uL (150-450); PROTEIN,URINE NEGATIVE (NEGATIVE); RED BLOOD COUNT 4.07 10^6/uL (3.72-5.28); RED CELL DISTRIBUTION WIDTH 19.2 % (11.5-14.0); URINE SPECIFIC GRAVITY 1.023; UROBILINOGEN,URINE NEGATIVE mg/dL (<2.0); WHITE BLOOD COUNT 14.9 10^3/uL (4.0-10.5)
[2019-01-29] MEDS: HEPARIN SODIUM,PORCINE/D5W 25,000 UNIT/250 ML RTUINJ IV PRN (09:00)
[2019-01-29 09:06] LABS: C-REACTIVE PROTEIN 68.8 mg/L (<10.0)
[2019-01-29 09:15] LABS: BASOPHILS % (MANUAL) 0 % (0-2); EOSINOPHILS % (MANUAL) 0 % (0-6)
[2019-01-29] MEDS ORDERED: POTASSIUM ACETATE IV ONE (09:15)
[2019-01-29] MEDS ORDERED: NORMAL SALINE IV ONE (09:15)
[2019-01-29 09:16] LABS: ABSOLUTE LYMPHOCYTES# (MANUAL) 0.4 10^3/uL (0.5-4.7); ABSOLUTE MONOCYTES # (MANUAL) 0.1 10^3/uL (0.1-1.4); ANISOCYTOSIS 1+; HYPERSEGMENTED NEUTROPHILS PRESENT; LYMPHOCYTES % (MANUAL) 3 % (13-45); MONOCYTES % (MANUAL) 1 % (3-13); PLATELET COMMENT ADEQUATE; SEGMENTED NEUTROPHILS % (MAN) 96 % (42-78); TOTAL CELLS COUNTED 100
[2019-01-29] MEDS: METHYLPREDNISOLONE INJ 40 MG/1 ML SDV IV SCH ×2 (09:52→21:35)
[2019-01-29] MEDS: FAMOTIDINE INJ/PF 20 MG/2 ML SDV IV SCH ×2 (09:53→21:35)
[2019-01-29] MEDS ORDERED: METHYLPREDNISOLONE INJ 40 MG/1 ML SDV IV SCH (10:00)
[2019-01-29] MEDS ORDERED: VANCOMYCIN HCL 1,000 MG in DEXTROSE 5%-WATER 250 ML IV ONE (10:00)
[2019-01-29] MEDS ORDERED: ENOXAPARIN SODIUM INJ 40 MG/0.4 ML DISP.SYRIN SUBCUT SCH (10:00)
--- NOTE | 2019-01-29 10:01 | PDOC CRITICAL CARE PROG REPORT ---
General Date:: 01/29/19 - Critical Care Attending Progress Note Resuscitation Status: Full Code Events in the past 12 to 24 Hours:: Pt is a 78 yo woman admitted several hours ago with acute on chronic respiratory failure, requiring bipap. She has a h/o severe COPD on home O2 and bipap as well as a h/o VTE. CTA of her chest revealed an acute RLL PE as well as PNA. She is currently of bipap and is lethargic, but easily arousable. Pt states that her breathing has improved and denies any abdominal pain. Reason for ICU Addmission:: COPD exacerbation with respiratory failure - Medications: Medications reviewed and adjusted accordingly: Yes Physical Exam Vital Signs: Temp Pulse Resp BP Pulse Ox 96.8 F L 77 16 133/49 H 99 01/29/19 06:54 01/29/19 08:39 01/29/19 08:39 01/29/19 06:54 01/29/19 08:39 Intake & Output 01/28/19 01/29/19 01/30/19 06:59 06:59 06:59 Intake Total 355 50 Balance 355 50 Weight 42 kg 42 kg Weight/Height Weight 42 kg Height 5 ft 1 in General appearance: PRESENT: no acute distress, well-developed, well-nourished Head exam: PRESENT: atraumatic, normocephalic Respiratory exam: PRESENT: decreased breath sounds, unlabored Cardiovascular exam: PRESENT: RRR GI/Abdominal exam: PRESENT: soft, other - NTND Gentrourinary exam: PRESENT: indwelling catheter Extremities exam: PRESENT: other - trace edema Neurological exam: PRESENT: other - lethargic, but arousable Laboratory/Radiographs Laboratory Results: 01/29/19 08:25 01/29/19 00:15 01/29/19 01/29/19 01/29/19 00:05 00:15 00:15 WBC 22.7 H RBC 4.27 Hgb 11.1 L Hct 37.2 MCV 87 MCH 26.1 L MCHC 29.9 L RDW 19.4 H Plt Count 320 Seg Neutrophils % Not Reportable Carbonic Acid 1.46 H HCO3/H2CO3 Ratio 13:1 ABG pH 7.24 L ABG pCO2 48.6 H ABG pO2 100.1 H ABG HCO3 20.2 ABG O2 Saturation 96.5 ABG Base Excess -7.2 FiO2 3L Sodium 138.2 Potassium 3.1 L Chloride 108 H Carbon Dioxide 18 L Anion Gap 12 BUN 17 Creatinine 0.95 Est GFR ( Amer) > 60 Glucose 155 H Calcium 8.8 Phosphorus Magnesium Total Bilirubin 0.3 AST 27 Alkaline Phosphatase 106 C-Reactive Protein Total Protein 6.5 Albumin 3.3 L Amylase Lipase Urine Color Urine Appearance Urine pH Ur Specific [place] Urine Protein Urine Glucose (UA) Urine Ketones Urine Blood Urine Nitrite Ur Leukocyte Esterase Urine WBC (Auto) Urine RBC (Auto) 01/29/19 01/29/19 01/29/19 00:15 05:34 08:25 WBC RBC Hgb Hct MCV MCH MCHC RDW Plt Count Seg Neutrophils % Carbonic Acid HCO3/H2CO3 Ratio ABG pH ABG pCO2 ABG pO2 ABG HCO3 ABG O2 Saturation ABG Base Excess FiO2 Sodium Potassium Chloride Carbon Dioxide Anion Gap BUN Creatinine Est GFR ( Amer) Glucose Calcium Phosphorus 4.7 H Magnesium 3.4 H Total Bilirubin AST Alkaline Phosphatase C-Reactive Protein 68.8 H Total Protein Albumin Amylase 70 Lipase 71.7 Urine Color YELLOW Urine Appearance CLEAR Urine pH 5.0 Ur Specific [place] 1.009 Urine Protein NEGATIVE Urine Glucose (UA) NEGATIVE Urine Ketones NEGATIVE Urine Blood NEGATIVE Urine Nitrite NEGATIVE Ur Leukocyte Esterase NEGATIVE Urine WBC (Auto) 3 Urine RBC (Auto) 1 01/29/19 01/29/19 08:25 08:25 WBC 14.9 H RBC 4.07 Hgb 10.7 L Hct 34.2 L MCV 84 MCH 26.3 L MCHC 31.3 L RDW 19.2 H Plt Count 335 Seg Neutrophils % Not Reportable Carbonic Acid HCO3/H2CO3 Ratio ABG pH ABG pCO2 ABG pO2 ABG HCO3 ABG O2 Saturation ABG Base Excess FiO2 Sodium Potassium Chloride Carbon Dioxide Anion Gap BUN Creatinine Est GFR ( Amer) Glucose Calcium Phosphorus Magnesium Total Bilirubin AST Alkaline Phosphatase C-Reactive Protein Total Protein Albumin Amylase Lipase Urine Color YELLOW Urine Appearance CLEAR Urine pH 5.0 Ur Specific [place] 1.023 Urine Protein NEGATIVE Urine Glucose (UA) NEGATIVE Urine Ketones NEGATIVE Urine Blood NEGATIVE Urine Nitrite NEGATIVE Ur Leukocyte Esterase NEGATIVE Urine WBC (Auto) 4 Urine RBC (Auto) 0 01/29/19 00:15 Troponin I < 0.012 NT-Pro-B Natriuret Pep 492 H Impressions: Abdomen Ultrasound 01/29/19 00:00 IMPRESSION: Fatty liver. Echogenic kidneys, compatible with chronic medical renal disease. No evidence of cholelithiasis or acute cholecystitis. copyright 2010 [employer]- All Rights Reserved Abdomen/Pelvis CT 01/29/19 00:00 IMPRESSION: Positive for acute pulmonary embolism within the branches of the right lower lobe. No evidence of right heart strain. Consolidation along the dependent portion of the right lower lobe is likely due to atelectasis or pneumonia rather than pulmonary infarction. The above findings were discussed with and acknowledged by Dr. Escoto at 6:19 AM on 01/29/2019. Severe centrilobular emphysema with an enlarging left upper lobe mass which measures 5 mm, concerning for malignancy. No acute findings in the abdomen or pelvis. TECHNICAL DOCUMENTATION: Quality ID # 436: Final reports with documentation of one or more dose reduction techniques (e.g., Automated exposure control, adjustment of the mA and/or kV according to patient size, use of iterative reconstruction technique) copyright 2010 [employer] All Rights Reserved Chest/Abdomen CTA 01/29/19 00:00 IMPRESSION: Positive for acute pulmonary embolism within the branches of the right lower lobe. No evidence of right heart strain. Consolidation along the dependent portion of the right lower lobe is likely due to atelectasis or pneumonia rather than pulmonary infarction. The above findings were discussed with and acknowledged by Dr. Escoto at 6:19 AM on 01/29/2019. Severe centrilobular emphysema with an enlarging left upper lobe mass which measures 5 mm, concerning for malignancy. No acute findings in the abdomen or pelvis. TECHNICAL DOCUMENTATION: Quality ID # 436: Final reports with documentation of one or more dose reduction techniques (e.g., Automated exposure control, adjustment of the mA and/or kV according to patient size, use of iterative reconstruction technique) copyright 2010 [employer]- All Rights Reserved Chest X-Ray 01/29/19 00:55 IMPRESSION: Stable examination when compared with January 17, 2019 with redemonstration of findings compatible with chronic obstructive pulmonary process. All labs, radiographs, diagnostic studies and EKGs were personally reviewed: Yes In addition, reports of radiographic and diagnostic studies were read: Yes Assessment and Plan - Diagnosis (1) Pulmonary embolism Qualifiers: Chronicity: acute Is this a current diagnosis for this admission?: Yes (2) Acute exacerbation of chronic obstructive airways disease Is this a current diagnosis for this admission?: Yes (3) Acute and chronic respiratory failure Qualifiers: Respiratory failure complication: hypoxia Qualified Code(s): J96.21 - Acute and chronic respiratory failure with hypoxia Is this a current diagnosis for this admission?: Yes (4) Pneumonia Qualifiers: Pneumonia type: due to unspecified organism Laterality: right Lung location: lower lobe of lung Qualified Code(s): J18.9 - Pneumonia, unspecified organism Is this a current diagnosis for this admission?: Yes (5) WPW (Fhzyl-Xpqndsoxj-Cdvsy syndrome) Is this a current diagnosis for this admission?: No (6) Sepsis Qualifiers: Sepsis type: sepsis due to unspecified organism Severe sepsis acute organ dysfunction type: acute respiratory failure Acute respiratory failure type: with hypoxia Severe sepsis shock status: without septic shock Is this a current diagnosis for this admission?: Yes Critical Time Critical Time (minutes): 40 Level of Care: ICU -: 1. The care of a critical patient is a dynamic process. This note is a chemical sales representative synopsis but static in nature. The timeframe for treatments given in order is not necessarily the actual time these treatments may have been done. 2. This patient requires critical care secondary to ongoing requirements for therapy not offered or safe outside the critical care environment. Transfer to a lower level of care will result in altered life or limb morbidity and mortality. 3. Multidisciplinary rounds completed. 4. ABCDE bundle addressed. Provider Note Provider Note: Assessment: critically ill 78 yo woman with acute on chronic respiratory failure, h/o VTE, acute RLL PE, PNA, sepsis, AECOPD, h/o PPM, h/o WPW Plan: 1. Respiratory: acute on chronic respiratory faiure. On home O2 Was started on bipap here. Is now on nasal cannula. Continue to monitor respiratory status closely 2. Pulmonary: HCAP. Start vanc and meropenem. Acute RLL PE. Will start heparin drip. AECOPD. Continue bronchodilators and steroids. Check for influenza 3. CV:heart rate and BP acceptable. Has PPM. H/o WPW 4. ID: sepsis, HCAP. Continue vanc and meropenem. Check for influenza. Cultures pending 5. GI/Surgery: CT A/P unremarkable 6. Heme: RLL PE. Start heparin infusion. Check LE DVT 7. Nutrition: NPO for now. 8. Endocrine: monitor blood sugars 9. Prophylaxis: No DVT prophylaxis is needed b/c pt on heparin drip for PE Critical care time= 40 min, excluding procedures
[2019-01-29] MEDS: OXYCODONE-ACETAMINOPHEN 5-325 MG TABLET PO PRN ×2 (10:47→18:34)
--- NOTE | 2019-01-29 10:57 | Progress Note ---
Provider Note Provider Note: I personally examined and evaluated the patient in both CT scan and in the ICU. Due to the complex nature of her case I am and patient at bedside reviewed CT scan and findings. I discussed the case, care, findings and plan with AMADOR Chan. In agreement with his findings. Addition to this and in addition to his note I am concerned that the patient may have an underlying process which has exacerbated her COPD. The 2 major systems that will cause her presentation are a pulmonary embolism and or an abdominal pathology. She presented with tachypnea and had a mixed mixed acid-base disorder. He has significant chronic comorbidities. On examination she is very thin with bitemporal muscle wasting. Appears chronically ill Her lungs are clear except for mild decrease at bases. She has a port in the right upper chest. Significant muscle atrophy. Her abdomen is soft and scaphoid. She does have a Driver's sign. There is no distention. Bowel sounds are hypoactive. Skin is non-mottled and there is no pallor. As noted in the critical care admission by AMADOR Chan she has a history that includes DVT/PE. Only reviewed the CAT scan of the abdomen and chest. The CT scan after formatting reveals a right lower lobe pulmonary embolism. I evaluated the abdominal CT which shows an enlarged gallbladder and evidence of chronic colonic distention including the rectosigmoid region. The distention is so much so that her bladder is distended despite a Ravi. Suspicious that her abdominal discomfort is related to urinary outlet obstruction. And her small muscle mass a creatinine 2.98 may represent subtle acute renal failure as well. She has a history of COPD/emphysema and now has a PE. She will need to be on anticoagulation. I have ordered amylase and lipase and an ultrasound of her abdomen to document, bile duct size as well. Patient is chronically ill with significant comorbidities. Diagnoses #1. Acute hypoxic respiratory failure secondary to 2. Acute PE 3. Protein calorie malnutrition moderate 4. SIRS with concern for sepsis. History of Pseudomonas. Have placed on meropenem The diagnosis to follow when work-up is complete. Have transferred services to Dr. Margret Forrest. Total critical care time 1 hour
[2019-01-29] MEDS: OXYCODONE HCL IR 5 MG TABLET PO PRN ×2 (11:02→18:31)
[2019-01-29] MEDS: NYSTATIN TOPICAL POWDER 15 GM TP SCH ×2 (11:31→21:33)
[2019-01-29] MEDS: CLOTRIMAZOLE 1% TOPICAL SOLN 10 ML TP SCH ×2 (15:03→21:34)
--- NOTE | 2019-01-29 15:57 | RADIOLOGY REPORT (SQ) ---
EXAM DESCRIPTION: VENOUS BILATERAL LOWER COMPLETED DATE/TIME: 01/29/2019 3:47 pm REASON FOR STUDY: edema COMPARISON: None. TECHNIQUE: Dynamic and static grimaldo scale and color images acquired of both lower extremity venous sy stems. Selected spectral images acquired with additional compression and augmentation maneuvers. Imag es stored on PACS. LIMITATIONS: None. FINDINGS: RIGHT LEG COMMON FEMORAL AND FEMORAL: Normal phasicity, compression and augmentation. No visualized echogenic m aterial on grimaldo scale. No defects on color images. POPLITEAL: Normal compression and augmentation. No visualized echogenic material on grimaldo scale. No de fects on color images. CALF VESSELS: Normal compression and augmentation. No visualized echogenic material on grimaldo scale. No defects on color image. GSV AND SSV: Normal compression. No visualized echogenic material on grimaldo scale. No defects on color images. ANY DEEP VENOUS INSUFFICIENCY: Not evaluated. ANY EVIDENCE OF POPLITEAL CYST: No. OTHER: No other significant finding. LEFT LEG COMMON FEMORAL AND FEMORAL: Normal phasicity, compression and augmentation. No visualized echogenic m aterial on grimaldo scale. No defects on color images. POPLITEAL: Normal compression and augmentation. No visualized echogenic material on grimaldo scale. No de fects on color images. CALF VESSELS: Normal compression and augmentation. No visualized echogenic material on grimaldo scale. No defects on color images. GSV AND SSV: Normal compression. No visualized echogenic material on grimaldo scale. No defects on color images. ANY DEEP VENOUS INSUFFICIENCY: Not evaluated. ANY EVIDENCE POPLITEAL CYST: No. OTHER: No other significant finding. IMPRESSION: NO EVIDENCE DVT OR SVT IN EITHER LEG. TECHNICAL DOCUMENTATION: JOB ID: [id number] [employer]- All Rights Reserved Reading location - IP/workstation name: [email or web address]
[2019-01-29 16:05] LABS: A TYPE INFLUENZA AG NEGATIVE (NEGATIVE); B INFLUENZA AG NEGATIVE (NEGATIVE)
[2019-01-29 21:20] LABS: ANION GAP 12 (5-19); BLOOD UREA NITROGEN 12 mg/dL (7-20); CALCIUM 9.2 mg/dL (8.4-10.2); CARBON DIOXIDE 21 mmol/L (22-30); CHLORIDE 106 mmol/L (98-107); GLUCOSE 107 mg/dL (75-110); POTASSIUM 3.9 mmol/L (3.6-5.0)
[2019-01-29] MEDS: HEPARIN SOD (PORCINE) 1,000 UNIT/ML 10 ML VIAL IV PRN (21:35)
[2019-01-29] MEDS ORDERED: ALPRAZOLAM 0.5 MG TABLET PO ONE (21:47)
[2019-01-30] MEDS: RINGERS SOLUTION,LACTATED 1,000 ML IV PRN ×2 (00:21→09:44)
[2019-01-30] MEDS: IPRATROPIUM/ALBUTEROL 0.5-2.5 MG/3 ML AMPUL NEB SCH ×4 (01:50→20:16)
[2019-01-30 03:35] LABS: HEMATOCRIT 31.8 % (36.0-47.0); HEMOGLOBIN 9.9 g/dL (12.0-15.5); MEAN CORPUSCULAR HEMOGLOBIN 25.9 pg (27.0-33.4); MEAN CORPUSCULAR HGB CONC 31.1 g/dL (32.0-36.0); MEAN CORPUSCULAR VOLUME 83 fl (80-97); PLATELET COUNT 337 10^3/uL (150-450); RED BLOOD COUNT 3.82 10^6/uL (3.72-5.28); RED CELL DISTRIBUTION WIDTH 18.8 % (11.5-14.0)
[2019-01-30 03:42] LABS: ANION GAP 7 (5-19); BLOOD UREA NITROGEN 12 mg/dL (7-20); CALCIUM 9.1 mg/dL (8.4-10.2); CARBON DIOXIDE 24 mmol/L (22-30); CHLORIDE 110 mmol/L (98-107); GLUCOSE 113 mg/dL (75-110); POTASSIUM 3.6 mmol/L (3.6-5.0)
[2019-01-30 03:57] LABS: ABSOLUTE LYMPHOCYTES# (MANUAL) 1.4 10^3/uL (0.5-4.7); ABSOLUTE MONOCYTES # (MANUAL) 0.3 10^3/uL (0.1-1.4); BASOPHILS % (MANUAL) 0 % (0-2); EOSINOPHILS % (MANUAL) 0 % (0-6); LYMPHOCYTES % (MANUAL) 4 % (13-45); MONOCYTES % (MANUAL) 1 % (3-13); SEGMENTED NEUTROPHILS % (MAN) 95 % (42-78); TOTAL CELLS COUNTED 100
[2019-01-30 04:05] LABS: ANISOCYTOSIS 1+; BURR CELLS SLIGHT; HYPOCHROMASIA SLIGHT; OVALOCYTES SLIGHT; POIKILOCYTOSIS SLIGHT; POLYCHROMASIA SLIGHT; SCHISTOCYTES SLIGHT; TOXIC GRANULATION 1+
[2019-01-30 04:06] LABS: PLATELET COMMENT ADEQUATE
[2019-01-30 04:08] LABS: WHITE BLOOD COUNT 34.7 10^3/uL (4.0-10.5)
[2019-01-30] MEDS: HEPARIN SOD (PORCINE) 1,000 UNIT/ML 10 ML VIAL IV PRN (04:32)
[2019-01-30] MEDS: MEROPENEM 1 GM in NORMAL SALINE 50 ML IV SCH ×2 (05:12→17:21)
[2019-01-30] MEDS: OXYCODONE-ACETAMINOPHEN 5-325 MG TABLET PO PRN ×3 (05:12→21:29)
[2019-01-30] MEDS: OXYCODONE HCL IR 5 MG TABLET PO PRN ×2 (05:13→13:22)
[2019-01-30] MEDS: CLOTRIMAZOLE 1% TOPICAL SOLN 10 ML TP SCH ×3 (05:20→21:32)
[2019-01-30] MEDS: FAMOTIDINE INJ/PF 20 MG/2 ML SDV IV SCH ×2 (09:44→21:29)
[2019-01-30] MEDS: NYSTATIN TOPICAL POWDER 15 GM TP SCH ×2 (09:45→21:30)
--- NOTE | 2019-01-30 09:45 | PDOC CRITICAL CARE PROG REPORT ---
General Date:: 01/30/19 - Critical Care Attending Note Resuscitation Status: Full Code Events in the past 12 to 24 Hours:: Pt is awake,alert, and talkative this am. She if off bipap. She states she feels much better and has no complaints. Reason for ICU Addmission:: COPD exacerbation with respiratory failure - Medications: Medications reviewed and adjusted accordingly: Yes Physical Exam Vital Signs: Temp Pulse Resp BP Pulse Ox 97.5 F 62 20 136/54 H 95 01/30/19 08:00 01/30/19 08:38 01/30/19 08:38 01/30/19 08:00 01/30/19 08:38 Intake & Output 01/29/19 01/30/19 01/31/19 06:59 06:59 06:59 Intake Total 355 2396 Output Total 2375 80 Balance 355 21 -80 Weight 42 kg 46 kg Weight/Height Weight 46 kg Height 5 ft 1 in General appearance: PRESENT: no acute distress, well-developed, well-nourished, other - awake and alert Head exam: PRESENT: atraumatic, normocephalic Respiratory exam: PRESENT: unlabored, other - coarse breathsounds throughout Cardiovascular exam: PRESENT: RRR, other - no mrg GI/Abdominal exam: PRESENT: soft, other - non-tender, non-distended Gentrourinary exam: PRESENT: indwelling catheter Extremities exam: PRESENT: other - no edema Musculoskeletal exam: PRESENT: other - Port-a-cath in right chest. Site is C/D/I Laboratory/Radiographs Laboratory Results: 01/30/19 03:00 01/30/19 03:00 01/29/19 01/30/19 01/30/19 20:45 03:00 03:00 WBC 34.7 H* D RBC 3.82 Hgb 9.9 L Hct 31.8 L MCV 83 MCH 25.9 L MCHC 31.1 L RDW 18.8 H Plt Count 337 Seg Neutrophils % Not Reportable Sodium 138.8 141.3 Potassium 3.9 3.6 Chloride 106 110 H Carbon Dioxide 21 L 24 Anion Gap 12 7 BUN 12 12 Creatinine 0.73 0.69 Est GFR ( Amer) > 60 > 60 Glucose 107 113 H Calcium 9.2 9.1 01/29/19 00:15 Blood Blood Culture (PCR) - Final Staphylococcus Species 01/29/19 08:25 Nasophary (Mrsa Only) MRSA Culture - Final NO MRSA RECOVERED 01/29/19 00:15 Troponin I < 0.012 NT-Pro-B Natriuret Pep 492 H Impressions: Abdomen Ultrasound 01/29/19 00:00 IMPRESSION: Fatty liver. Echogenic kidneys, compatible with chronic medical renal disease. No evidence of cholelithiasis or acute cholecystitis. copyright 2010 [employer]- All Rights Reserved Abdomen/Pelvis CT 01/29/19 00:00 IMPRESSION: Positive for acute pulmonary embolism within the branches of the right lower lobe. No evidence of right heart strain. Consolidation along the dependent portion of the right lower lobe is likely due to atelectasis or pneumonia rather than pulmonary infarction. The above findings were discussed with and acknowledged by Dr. Escoto at 6:19 AM on 01/29/2019. Severe centrilobular emphysema with an enlarging left upper lobe mass which measures 5 mm, concerning for malignancy. No acute findings in the abdomen or pelvis. TECHNICAL DOCUMENTATION: Quality ID # 436: Final reports with documentation of one or more dose reduction techniques (e.g., Automated exposure control, adjustment of the mA and/or kV according to patient size, use of iterative reconstruction technique) copyright 2010 [employer]- All Rights Reserved Chest/Abdomen CTA 01/29/19 00:00 IMPRESSION: Positive for acute pulmonary embolism within the branches of the right lower lobe. No evidence of right heart strain. Consolidation along the dependent portion of the right lower lobe is likely due to atelectasis or pneumonia rather than pulmonary infarction. The above findings were discussed with and acknowledged by Dr. Escoto at 6:19 AM on 01/29/2019. Severe centrilobular emphysema with an enlarging left upper lobe mass which measures 5 mm, concerning for malignancy. No acute findings in the abdomen or pelvis. TECHNICAL DOCUMENTATION: Quality ID # [id number]: Final reports with documentation of one or more dose reduction techniques (e.g., Automated exposure control, adjustment of the mA and/or kV according to patient size, use of iterative reconstruction technique) copyright 2010 [employer]- All Rights Reserved Venous Doppler Study 01/29/19 00:00 IMPRESSION: NO EVIDENCE DVT OR SVT IN EITHER LEG. Chest X-Ray 01/29/19 00:55 IMPRESSION: Stable examination when compared with January 17, 2019 with redemonstration of findings compatible with chronic obstructive pulmonary process. Assessment and Plan - Diagnosis (1) Pulmonary embolism Qualifiers: Chronicity: acute Is this a current diagnosis for this admission?: Yes (2) Acute exacerbation of chronic obstructive airways disease Is this a current diagnosis for this admission?: Yes (3) Acute and chronic respiratory failure Qualifiers: Respiratory failure complication: hypoxia Qualified Code(s): J96.21 - Acute and chronic respiratory failure with hypoxia Is this a current diagnosis for this admission?: Yes (4) Pneumonia Qualifiers: Pneumonia type: due to unspecified organism Laterality: right Lung location: lower lobe of lung Qualified Code(s): J18.9 - Pneumonia, unspecified organism Is this a current diagnosis for this admission?: Yes (5) WPW (Anmrt-Twtcrysuv-Xonnd syndrome) Is this a current diagnosis for this admission?: No (6) Sepsis Qualifiers: Sepsis type: sepsis due to unspecified organism Severe sepsis acute organ dysfunction type: acute respiratory failure Acute respiratory failure type: with hypoxia Severe sepsis shock status: without septic shock Is this a current diagnosis for this admission?: Yes Plan Summary: Assessment: critically ill 78 yo woman with acute on chronic respiratory failure, h/o VTE, acute RLL PE, PNA, sepsis, AECOPD, h/o PPM, h/o WPW, GPC bacteremia Plan: 1. Respiratory: acute on chronic respiratory faiure, resolved. Stable on NC. Continue bipap qhs and prn 2. Pulmonary: HCAP. Day 2 vanc and meropenem. Acute RLL PE. Continue heparin drip. AECOPD. Continue bronchodilators and wean steroids. 3. CV:heart rate and BP acceptable. Has PPM. H/o WPW 4. ID: sepsis, HCAP, bactermia with GPC. WBC increased to 34.7 today. Day 2 vanc and meropenem. Repeat blood cultures from a peripheral site. Hopefully her port-a-cath is not infected 5. Heme: RLL PE, continue heparin infusion. Will not start oral anticoagulation until it is clear that pt will not need to have her port-a-cath removed. 7. Nutrition: regular diet 8. Endocrine: monitor blood sugars 9. Prophylaxis: No DVT prophylaxis is needed b/c pt on heparin drip for PE 10. Monitor in ICU one more day. Critical Time Critical Time (minutes): 0 Level of Care: IMCU -: 1. The care of a critical patient is a dynamic process. This note is a technical services representative synopsis but static in nature. The timeframe for treatments given in order is not necessarily the actual time these treatments may have been done. 2. This patient requires critical care secondary to ongoing requirements for therapy not offered or safe outside the critical care environment. Transfer to a lower level of care will result in altered life or limb morbidity and mortality. 3. Multidisciplinary rounds completed. 4. ABCDE bundle addressed.
[2019-01-30] MEDS ORDERED: VANCOMYCIN HCL 500 MG in DEXTROSE 5%-WATER 100 ML IV SCH (10:00)
[2019-01-30] MEDS ORDERED: METHYLPREDNISOLONE INJ 40 MG/1 ML SDV IV SCH (10:00)
[2019-01-30 10:13] LABS: PATH REVIEW PATHOLOGIST REVIEWED
[2019-01-30] MEDS ORDERED: FUROSEMIDE INJ/PF 20 MG/2 ML SDV IV ONE (17:15)
[2019-01-30] MEDS: DILTIAZEM HCL 180 MG CAPSULE.CR PO SCH (17:21)
[2019-01-30] MEDS ORDERED: ALPRAZOLAM 0.5 MG TABLET PO ONE (21:45)
[2019-01-31] MEDS: OXYCODONE-ACETAMINOPHEN 5-325 MG TABLET PO PRN ×3 (02:02→23:31)
[2019-01-31] MEDS: OXYCODONE HCL IR 5 MG TABLET PO PRN ×3 (02:03→23:36)
[2019-01-31 02:07] LABS: ABSOLUTE LYMPHOCYTES (AUTO) 1.7 10^3/uL (0.5-4.7); ABSOLUTE MONOCYTES (AUTO) 1.7 10^3/uL (0.1-1.4); ABSOLUTE NEUT (AUTO) 25.5 10^3/uL (1.7-8.2); BASOPHILS % (AUTO) 0.2 % (0-2); HEMATOCRIT 32.5 % (36.0-47.0); HEMOGLOBIN 10.2 g/dL (12.0-15.5); LYMPHOCYTES % (AUTO) 5.8 % (13-45); MEAN CORPUSCULAR HEMOGLOBIN 25.8 pg (27.0-33.4); MEAN CORPUSCULAR HGB CONC 31.5 g/dL (32.0-36.0); MEAN CORPUSCULAR VOLUME 82 fl (80-97); PLATELET COUNT 353 10^3/uL (150-450); RED BLOOD COUNT 3.97 10^6/uL (3.72-5.28); TOTAL CELLS COUNTED % (AUTO) 100 %; WHITE BLOOD COUNT 28.9 10^3/uL (4.0-10.5)
[2019-01-31 02:23] LABS: ANION GAP 6 (5-19); BLOOD UREA NITROGEN 24 mg/dL (7-20); CALCIUM 9.3 mg/dL (8.4-10.2); CARBON DIOXIDE 28 mmol/L (22-30); CHLORIDE 105 mmol/L (98-107); GLUCOSE 124 mg/dL (75-110); POTASSIUM 3.8 mmol/L (3.6-5.0)
[2019-01-31] MEDS: HEPARIN SOD (PORCINE) 1,000 UNIT/ML 10 ML VIAL IV PRN (02:42)
[2019-01-31] MEDS: HEPARIN SODIUM,PORCINE/D5W 25,000 UNIT/250 ML RTUINJ IV PRN (02:43)
[2019-01-31] MEDS: IPRATROPIUM/ALBUTEROL 0.5-2.5 MG/3 ML AMPUL NEB SCH (02:58)
[2019-01-31] MEDS: CLOTRIMAZOLE 1% TOPICAL SOLN 10 ML TP SCH ×3 (05:06→23:29)
[2019-01-31] MEDS: MEROPENEM 1 GM in NORMAL SALINE 50 ML IV SCH ×2 (06:05→19:13)
--- NOTE | 2019-01-31 09:29 | PDOC CRITICAL CARE PROG REPORT ---
General Date:: 01/31/19 - Critical Care Attending Progress Note Resuscitation Status: Full Code Events in the past 12 to 24 Hours:: Pt has no complaints. Has been ambulatory. Is sitting on the side of the bed, face-timing with family members. Is off bipap and on nasal cannula. Reason for ICU Addmission:: COPD exacerbation with respiratory failure - Medications: Medications reviewed and adjusted accordingly: Yes Physical Exam Vital Signs: Temp Pulse Resp BP Pulse Ox 97.5 F 62 16 126/64 H 96 01/31/19 07:45 01/31/19 07:45 01/31/19 07:45 01/31/19 07:45 01/31/19 08:00 Intake & Output 01/30/19 01/31/19 02/01/19 06:59 06:59 06:59 Intake Total 2446 2848 Output Total 2375 3905 Balance 71 -1057 Weight 46 kg 46.7 kg Weight/Height Weight 46.7 kg Height 5 ft 1 in General appearance: PRESENT: no acute distress, thin, well-developed, well- nourished Head exam: PRESENT: atraumatic, normocephalic Respiratory exam: PRESENT: crackles, unlabored, wheezes Cardiovascular exam: PRESENT: RRR GI/Abdominal exam: PRESENT: soft, other - non-tender,non-distended Extremities exam: PRESENT: other - no edema Laboratory/Radiographs Laboratory Results: 01/31/19 01:55 01/31/19 01:55 01/31/19 01/31/19 01:55 01:55 WBC 28.9 H RBC 3.97 Hgb 10.2 L Hct 32.5 L MCV 82 MCH 25.8 L MCHC 31.5 L RDW 19.0 H Plt Count 353 Seg Neutrophils % 88.0 H Sodium 139.4 Potassium 3.8 Chloride 105 Carbon Dioxide 28 Anion Gap 6 BUN 24 H Creatinine 1.00 Est GFR ( Amer) > 60 Glucose 124 H Calcium 9.3 01/29/19 00:15 Blood Blood Culture (PCR) - Final Staphylococcus Species 01/29/19 08:25 Nasophary (Mrsa Only) MRSA Culture - Final NO MRSA RECOVERED 01/29/19 00:15 Troponin I < 0.012 NT-Pro-B Natriuret Pep 492 H Impressions: Abdomen Ultrasound 01/29/19 00:00 IMPRESSION: Fatty liver. Echogenic kidneys, compatible with chronic medical renal disease. No evidence of cholelithiasis or acute cholecystitis. copyright 2010 [employer]- All Rights Reserved Abdomen/Pelvis CT 01/29/19 00:00 IMPRESSION: Positive for acute pulmonary embolism within the branches of the right lower lobe. No evidence of right heart strain. Consolidation along the dependent portion of the right lower lobe is likely due to atelectasis or pneumonia rather than pulmonary infarction. The above findings were discussed with and acknowledged by Dr. Escoto at 6:19 AM on 01/29/2019. Severe centrilobular emphysema with an enlarging left upper lobe mass which measures 5 mm, concerning for malignancy. No acute findings in the abdomen or pelvis. TECHNICAL DOCUMENTATION: Quality ID # 436: Final reports with documentation of one or more dose reduction techniques (e.g., Automated exposure control, adjustment of the mA and/or kV according to patient size, use of iterative reconstruction technique) copyright 2010 [employer]- All Rights Reserved Chest/Abdomen CTA 01/29/19 00:00 IMPRESSION: Positive for acute pulmonary embolism within the branches of the right lower lobe. No evidence of right heart strain. Consolidation along the dependent portion of the right lower lobe is likely due to atelectasis or pneumonia rather than pulmonary infarction. The above findings were discussed with and acknowledged by Dr. Escoto at 6:19 AM on 01/29/2019. Severe centrilobular emphysema with an enlarging left upper lobe mass which measures 5 mm, concerning for malignancy. No acute findings in the abdomen or pelvis. TECHNICAL DOCUMENTATION: Quality ID # 436: Final reports with documentation of one or more dose reduction techniques (e.g., Automated exposure control, adjustment of the mA and/or kV according to patient size, use of iterative reconstruction technique) copyright 2010 [employer]- All Rights Reserved Venous Doppler Study 01/29/19 00:00 IMPRESSION: NO EVIDENCE DVT OR SVT IN EITHER LEG. Chest X-Ray 01/29/19 00:55 IMPRESSION: Stable examination when compared with January 17, 2019 with redemonstration of findings compatible with chronic obstructive pulmonary process. Assessment and Plan - Diagnosis (1) Pulmonary embolism Qualifiers: Chronicity: acute Is this a current diagnosis for this admission?: Yes (2) Acute exacerbation of chronic obstructive airways disease Is this a current diagnosis for this admission?: Yes (3) Acute and chronic respiratory failure Qualifiers: Respiratory failure complication: hypoxia Qualified Code(s): J96.21 - Acute and chronic respiratory failure with hypoxia Is this a current diagnosis for this admission?: Yes (4) Pneumonia Qualifiers: Pneumonia type: due to unspecified organism Laterality: right Lung location: lower lobe of lung Qualified Code(s): J18.9 - Pneumonia, unspecified organism Is this a current diagnosis for this admission?: Yes (5) WPW (Ownvy-Sznfeyghq-Xfnbi syndrome) Is this a current diagnosis for this admission?: No (6) Sepsis Qualifiers: Sepsis type: sepsis due to unspecified organism Severe sepsis acute organ dysfunction type: acute respiratory failure Acute respiratory failure type: with hypoxia Severe sepsis shock status: without septic shock Is this a current diagnosis for this admission?: Yes Plan Summary: Assessment: 78 yo woman with acute on chronic respiratory failure, h/o VTE, acute RLL PE, PNA, sepsis, AECOPD, h/o PPM, h/o WPW, GPC bacteremia Plan: 1. Respiratory: acute on chronic respiratory failure, resolved. Stable on NC. Continue bipap qhs and prn 2. Pulmonary: HCAP. Day 3 vanc and meropenem. Acute RLL PE. Continue heparin drip. AECOPD. Continue bronchodilators and stop steroids. Resume home COPD meds 3. CV:heart rate and BP acceptable. Have resumed home Cardizem. Has PPM. H/o WPW 4. ID: sepsis, HCAP, bactermia with GPC. WBC has decreased to 28.7 today. Day 3 vanc and meropenem. Repeat blood cultures from a peripheral site are pending. Hopefully her port-a-cath is not infected 5. Heme: RLL PE, continue heparin infusion. Will not start oral anticoagulation until it is clear that pt will not need to have her port-a-cath removed. 7. Nutrition: regular diet 8. Endocrine: monitor blood sugars 9. Prophylaxis: No DVT prophylaxis is needed b/c pt on heparin drip for PE 10. Stable for transfer to telemetry bed. Critical Time Critical Time (minutes): 0 Level of Care: TELE -: 1. The care of a critical patient is a dynamic process. This note is a sales representative printing supplies synopsis but static in nature. The timeframe for treatments given in order is not necessarily the actual time these treatments may have been done. 2. This patient requires critical care secondary to ongoing requirements for therapy not offered or safe outside the critical care environment. Transfer to a lower level of care will result in altered life or limb morbidity and mortality. 3. Multidisciplinary rounds completed. 4. ABCDE bundle addressed.
[2019-01-31] MEDS: VANCOMYCIN HCL 750 MG in DEXTROSE 5%-WATER 250 ML IV SCH (10:29)
[2019-01-31] MEDS: CITALOPRAM HYDROBROMIDE 20 MG TABLET PO SCH (10:30)
[2019-01-31] MEDS: DILTIAZEM HCL 180 MG CAPSULE.CR PO SCH (10:31)
[2019-01-31] MEDS: NYSTATIN TOPICAL POWDER 15 GM TP SCH ×2 (10:31→23:30)
[2019-01-31] MEDS: FAMOTIDINE 20 MG TABLET PO SCH ×2 (10:32→23:29)
[2019-01-31] MEDS: ROFLUMILAST 500 MCG TABLET PO SCH (10:32)
[2019-01-31] MEDS: MONTELUKAST SODIUM 10 MG TABLET PO SCH (23:29)
[2019-02-01] MEDS: MEROPENEM 1 GM in NORMAL SALINE 50 ML IV SCH ×2 (06:37→17:52)
[2019-02-01] MEDS: CLOTRIMAZOLE 1% TOPICAL SOLN 10 ML TP SCH ×3 (06:38→22:35)
[2019-02-01] MEDS: OXYCODONE-ACETAMINOPHEN 5-325 MG TABLET PO PRN (06:50)
[2019-02-01] MEDS: OXYCODONE HCL IR 5 MG TABLET PO PRN (06:51)
[2019-02-01 07:54] LABS: ABSOLUTE BASOPHILS # (AUTO) 0.1 10^3/uL (0.0-0.2); ABSOLUTE EOSINOPHILS # (AUTO) 0.1 10^3/uL (0.0-0.6); ABSOLUTE LYMPHOCYTES (AUTO) 3.3 10^3/uL (0.5-4.7); ABSOLUTE MONOCYTES (AUTO) 1.6 10^3/uL (0.1-1.4); ABSOLUTE NEUT (AUTO) 8.3 10^3/uL (1.7-8.2); BASOPHILS % (AUTO) 0.4 % (0-2); EOSINOPHILS % (AUTO) 0.6 % (0-6); HEMATOCRIT 33.2 % (36.0-47.0); HEMOGLOBIN 10.6 g/dL (12.0-15.5); LYMPHOCYTES % (AUTO) 24.9 % (13-45); MEAN CORPUSCULAR HEMOGLOBIN 26.3 pg (27.0-33.4); MEAN CORPUSCULAR HGB CONC 31.9 g/dL (32.0-36.0); MEAN CORPUSCULAR VOLUME 83 fl (80-97); MONOCYTES % (AUTO) 12.2 % (3-13); PLATELET COUNT 368 10^3/uL (150-450); RED BLOOD COUNT 4.03 10^6/uL (3.72-5.28); RED CELL DISTRIBUTION WIDTH 18.8 % (11.5-14.0); SEGMENTED NEUTROPHILS % (AUTO) 61.9 % (42-78); TOTAL CELLS COUNTED % (AUTO) 100 %; WHITE BLOOD COUNT 13.4 10^3/uL (4.0-10.5)
[2019-02-01 08:12] LABS: BLOOD UREA NITROGEN 15 mg/dL (7-20); CALCIUM 8.3 mg/dL (8.4-10.2); CHLORIDE 103 mmol/L (98-107); GLUCOSE 89 mg/dL (75-110)
[2019-02-01 08:17] LABS: ANION GAP 5 (5-19); CARBON DIOXIDE 32 mmol/L (22-30)
[2019-02-01] MEDS: HEPARIN SODIUM,PORCINE/D5W 25,000 UNIT/250 ML RTUINJ IV PRN (08:35)
[2019-02-01] MEDS: HEPARIN SOD (PORCINE) 1,000 UNIT/ML 10 ML VIAL IV PRN (08:36)
[2019-02-01] MEDS: ALBUTEROL SULFATE 0.083% NEB 2.5 MG/3 ML AMPUL NEB PRN (09:53)
[2019-02-01] MEDS: DILTIAZEM HCL 180 MG CAPSULE.CR PO SCH (10:20)
[2019-02-01] MEDS: FAMOTIDINE 20 MG TABLET PO SCH ×2 (10:20→22:34)
[2019-02-01] MEDS: VANCOMYCIN HCL 750 MG in DEXTROSE 5%-WATER 250 ML IV SCH (10:21)
[2019-02-01] MEDS: CITALOPRAM HYDROBROMIDE 20 MG TABLET PO SCH (10:25)
[2019-02-01] MEDS: NYSTATIN TOPICAL POWDER 15 GM TP SCH ×2 (10:26→22:35)
[2019-02-01] MEDS: ROFLUMILAST 500 MCG TABLET PO SCH (11:06)
--- NOTE | 2019-02-01 15:12 | PDOC PROGRESS REPORT ---
Subjective Progress Note for:: 02/01/19 Subjective:: Patient was transferred from ICU to medical floor, she has PE presently on IV heparin, this to be discontinued, start Eliquis. 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 at this point Reason For Visit: COPD EXACERBATION Physical Exam Vital Signs: Temp Pulse Resp BP Pulse Ox 98.1 F 70 19 110/58 L 96 02/01/19 12:00 02/01/19 12:00 02/01/19 12:00 02/01/19 12:00 02/01/19 12:00 Intake & Output 01/31/19 02/01/19 02/02/19 06:59 06:59 06:59 Intake Total 2898 744 787 Output Total 3905 900 Balance -1007 -156 787 Weight 46.7 kg 44 kg General appearance: PRESENT: no acute distress Eye exam: PRESENT: PERRLA Respiratory exam: PRESENT: clear to auscultation luci Cardiovascular exam: PRESENT: +S1, +S2 GI/Abdominal exam: PRESENT: soft Neurological exam: PRESENT: alert Results Laboratory Results: 02/01/19 05:10 02/01/19 05:10 02/01/19 02/01/19 05:10 05:10 WBC 13.4 H RBC 4.03 Hgb 10.6 L Hct 33.2 L MCV 83 MCH 26.3 L MCHC 31.9 L RDW 18.8 H Plt Count 368 Seg Neutrophils % 61.9 Sodium 139.6 Potassium 4.0 Chloride 103 Carbon Dioxide 32 H Anion Gap 5 BUN 15 Creatinine 0.97 Est GFR ( Amer) > 60 Glucose 89 Calcium 8.3 L 01/29/19 05:34 Catheterized Urine Legionella Urinary Antigen - Final 01/29/19 00:15 Blood Blood Culture (PCR) - Final Staphylococcus Species 01/29/19 00:15 Blood Blood Culture - Final Staphylococcus Epidermidis 01/29/19 05:34 Catheterized Urine Urine Culture - Final Pseudomonas Aeruginosa 01/29/19 00:15 Troponin I < 0.012 NT-Pro-B Natriuret Pep 492 H Impressions: Abdomen Ultrasound 01/29/19 00:00 IMPRESSION: Fatty liver. Echogenic kidneys, compatible with chronic medical renal disease. No evidence of cholelithiasis or acute cholecystitis. copyright 2011 [employer]- All Rights Reserved Abdomen/Pelvis CT 01/29/19 00:00 IMPRESSION: Positive for acute pulmonary embolism within the branches of the right lower lobe. No evidence of right heart strain. Consolidation along the dependent portion of the right lower lobe is likely due to atelectasis or pneumonia rather than pulmonary infarction. The above findings were discussed with and acknowledged by Dr. Escoto at 6:19 AM on 01/29/2019. Severe centrilobular emphysema with an enlarging left upper lobe mass which measures 5 mm, concerning for malignancy. No acute findings in the abdomen or pelvis. TECHNICAL DOCUMENTATION: Quality ID # 436: Final reports with documentation of one or more dose reduction techniques (e.g., Automated exposure control, adjustment of the mA and/or kV according to patient size, use of iterative reconstruction technique) copyright 2010 [employer]- All Rights Reserved Chest/Abdomen CTA 01/29/19 00:00 IMPRESSION: Positive for acute pulmonary embolism within the branches of the right lower lobe. No evidence of right heart strain. Consolidation along the dependent portion of the right lower lobe is likely due to atelectasis or pneumonia rather than pulmonary infarction. The above findings were discussed with and acknowledged by Dr. Escoto at 6:19 AM on 01/29/2019. Severe centrilobular emphysema with an enlarging left upper lobe mass which measures 5 mm, concerning for malignancy. No acute findings in the abdomen or pelvis. TECHNICAL DOCUMENTATION: Quality ID # [id number]: Final reports with documentation of one or more dose reduction techniques (e.g., Automated exposure control, adjustment of the mA and/or kV according to patient size, use of iterative reconstruction technique) copyright 2010 [employer]- All Rights Reserved Venous Doppler Study 01/29/19 00:00 IMPRESSION: NO EVIDENCE DVT OR SVT IN EITHER LEG. Chest X-Ray 01/29/19 00:55 IMPRESSION: Stable examination when compared with January 17, 2019 with redemonstration of findings compatible with chronic obstructive pulmonary process. Assessment & Plan - Diagnosis (1) Acute and chronic respiratory failure Qualifiers: Respiratory failure complication: hypoxia Qualified Code(s): J96.21 - Acute and chronic respiratory failure with hypoxia Is this a current diagnosis for this admission?: Yes (2) Pulmonary embolism Qualifiers: Chronicity: acute Is this a current diagnosis for this admission?: Yes Plan: Discontinue IV heparin, start p.o. Eliquis - Time Time Spent with patient: 25-34 minutes Level of Care: MEDICAL
[2019-02-01 15:36] LABS: ANTIMYELOPEROXIDASE (MPO) AB <9.0 U/mL (0.0-9.0)
[2019-02-01] MEDS: APIXABAN 5 MG TABLET PO SCH (17:52)
[2019-02-01] MEDS: MONTELUKAST SODIUM 10 MG TABLET PO SCH (22:34)
[2019-02-02] MEDS: MEROPENEM 1 GM in NORMAL SALINE 50 ML IV SCH ×2 (05:46→17:51)
[2019-02-02] MEDS: CLOTRIMAZOLE 1% TOPICAL SOLN 10 ML TP SCH ×3 (05:46→21:11)
[2019-02-02] MEDS: OXYCODONE-ACETAMINOPHEN 5-325 MG TABLET PO PRN ×2 (05:51→16:29)
[2019-02-02 08:06] LABS: ATYPICAL PANCA <1:20 titer (Neg:<1:20)
[2019-02-02] MEDS: VANCOMYCIN HCL 750 MG in DEXTROSE 5%-WATER 250 ML IV SCH (10:13)
[2019-02-02] MEDS: FAMOTIDINE 20 MG TABLET PO SCH ×2 (10:13→21:09)
[2019-02-02] MEDS: CITALOPRAM HYDROBROMIDE 20 MG TABLET PO SCH (10:13)
[2019-02-02] MEDS: ROFLUMILAST 500 MCG TABLET PO SCH (10:13)
[2019-02-02] MEDS: DILTIAZEM HCL 180 MG CAPSULE.CR PO SCH (10:13)
[2019-02-02] MEDS: APIXABAN 5 MG TABLET PO SCH ×2 (10:13→17:51)
[2019-02-02] MEDS: NYSTATIN TOPICAL POWDER 15 GM TP SCH ×2 (10:26→21:10)
[2019-02-02] MEDS: OXYCODONE HCL IR 5 MG TABLET PO PRN (16:28)
--- NOTE | 2019-02-02 18:48 | PDOC PROGRESS REPORT ---
Subjective Progress Note for:: 02/02/19 Subjective:: Patient denied any chest pain. Breathing remain laboured with efforts. No nausea, vomiting, or abdominal pain. No fever or chills. Reason For Visit: COPD EXACERBATION Physical Exam Vital Signs: Temp Pulse Resp BP Pulse Ox 97.6 F 65 16 129/59 H 95 02/02/19 12:00 02/02/19 14:30 02/02/19 14:30 02/02/19 12:00 02/02/19 14:30 Intake & Output 02/01/19 02/02/19 02/03/19 06:59 06:59 06:59 Intake Total 744 1312 250 Output Total 900 Balance -156 1312 250 Weight 44 kg 44.5 kg 44.5 kg General appearance: PRESENT: mild distress - on supplemental oxygen via nasal cannula, thin Head exam: PRESENT: atraumatic, normocephalic Ear exam: PRESENT: normal external ear exam Mouth exam: PRESENT: moist Respiratory exam: PRESENT: crackles, rhonchi, wheezes Cardiovascular exam: PRESENT: RRR. ABSENT: diastolic murmur, rubs, systolic murmur Vascular exam: ABSENT: pallor Extremities exam: ABSENT: pedal edema Neurological exam: PRESENT: alert, awake, oriented to person, oriented to place, oriented to time, oriented to situation, CN II-XII grossly intact. ABSENT: motor sensory deficit Psychiatric exam: PRESENT: appropriate affect, normal mood. ABSENT: homicidal ideation, suicidal ideation Skin exam: PRESENT: dry, warm, other - port-a-cath on anterior chest wall. Results Laboratory Results: 02/01/19 05:10 02/01/19 05:10 01/29/19 00:15 Blood Blood Culture (PCR) - Final Staphylococcus Species 01/29/19 00:15 Blood Blood Culture - Final Staphylococcus Epidermidis 01/29/19 05:34 Catheterized Urine Legionella Urinary Antigen - Final 01/29/19 00:15 Troponin I < 0.012 NT-Pro-B Natriuret Pep 492 H Impressions: Abdomen Ultrasound 01/29/19 00:00 IMPRESSION: Fatty liver. Echogenic kidneys, compatible with chronic medical renal disease. No evidence of cholelithiasis or acute cholecystitis. copyright 2011 [employer]- All Rights Reserved Abdomen/Pelvis CT 01/29/19 00:00 IMPRESSION: Positive for acute pulmonary embolism within the branches of the right lower lobe. No evidence of right heart strain. Consolidation along the dependent portion of the right lower lobe is likely due to atelectasis or pneumonia rather than pulmonary infarction. The above findings were discussed with and acknowledged by Dr. Escoto at 6:19 AM on 01/29/2019. Severe centrilobular emphysema with an enlarging left upper lobe mass which measures 5 mm, concerning for malignancy. No acute findings in the abdomen or pelvis. TECHNICAL DOCUMENTATION: Quality ID # [id number]: Final reports with documentation of one or more dose reduction techniques (e.g., Automated exposure control, adjustment of the mA and/or kV according to patient size, use of iterative reconstruction technique) copyright 2010 [employer]- All Rights Reserved Chest/Abdomen CTA 01/29/19 00:00 IMPRESSION: Positive for acute pulmonary embolism within the branches of the right lower lobe. No evidence of right heart strain. Consolidation along the dependent portion of the right lower lobe is likely due to atelectasis or pneumonia rather than pulmonary infarction. The above findings were discussed with and acknowledged by Dr. Escoto at 6:19 AM on 01/29/2019. Severe centrilobular emphysema with an enlarging left upper lobe mass which measures 5 mm, concerning for malignancy. No acute findings in the abdomen or pelvis. TECHNICAL DOCUMENTATION: Quality ID # [id number]: Final reports with documentation of one or more dose reduction techniques (e.g., Automated exposure control, adjustment of the mA and/or kV according to patient size, use of iterative reconstruction technique) copyright 2010 [employer]- All Rights Reserved Venous Doppler Study 01/29/19 00:00 IMPRESSION: NO EVIDENCE DVT OR SVT IN EITHER LEG. Chest X-Ray 01/29/19 00:55 IMPRESSION: Stable examination when compared with January 17, 2019 with redemonstration of findings compatible with chronic obstructive pulmonary process. Assessment & Plan - Diagnosis (1) COPD exacerbation Is this a current diagnosis for this admission?: Yes Plan: Continue current medication management. (2) Pulmonary embolism Qualifiers: Pulmonary embolism type: other Chronicity: chronic Acute cor pulmonale presence: without acute cor pulmonale Qualified Code(s): I27.82 - Chronic pulmonary embolism Is this a current diagnosis for this admission?: Yes Plan: Continue current medication management. (3) Pneumonia due to Pseudomonas aeruginosa Is this a current diagnosis for this admission?: Yes Plan: Continue current antibiotic coverage with IV Meropenem. (4) Cystitis due to Pseudomonas Is this a current diagnosis for this admission?: Yes Plan: Continue current antibiotic coverage with IV Meropenem. (5) Staphylococcus epidermidis bacteremia Is this a current diagnosis for this admission?: Yes Plan: Continue current antibiotic coverage with IV Vancomycin. (6) HTN (hypertension) Qualifiers: Hypertension type: essential hypertension Qualified Code(s): I10 - Essential (primary) hypertension Is this a current diagnosis for this admission?: Yes Plan: Continue current medication management. Obtain BMP, Magnesium, Phosphorus levels in AM. (7) HLD (hyperlipidemia) Qualifiers: Hyperlipidemia type: unspecified Qualified Code(s): E78.5 - Hyperlipidemia, unspecified Is this a current diagnosis for this admission?: Yes Plan: Continue current medication management. Obtain FLP in am. - Time Time Spent with patient: 35 or more minutes Level of Care: TELE Medications reviewed and adjusted accordingly: Yes Anticipated discharge: Home with Homehealth Within: Other - Inpatient Certification Based on my medical assessment, after consideration of the patient's comorbidities, presenting symptoms, or acuity I expect that the services needed warrant INPATIENT care.: Yes I certify that my determination is in accordance with my understanding of Medicare's requirements for reasonable and necessary INPATIENT services [42 CFR 412.3e].: Yes Medical Necessity: Significant Comorbidiites Make Outpatient Treatment Too Risky, Need Close Monitoring Due to Risk of Patient Decompensation, Need For IV Fluids, Need For Continuous Telemetry Monitoring, Need for Nebulizer Therapy and Monitoring of Response, Need for IV Antibiotics, Risk of Complication if Not Cared For in Hospital, Risk of Diagnosis Which Will Require Inpatient Eval/Care/Monitoring Post Hospital Care: D/C Forestry Fire Aide Documentation - See attending physician orders for details.
[2019-02-02] MEDS: MONTELUKAST SODIUM 10 MG TABLET PO SCH (21:09)
[2019-02-03] MEDS: OXYCODONE HCL IR 5 MG TABLET PO PRN ×3 (00:03→21:03)
[2019-02-03] MEDS: OXYCODONE-ACETAMINOPHEN 5-325 MG TABLET PO PRN ×3 (00:03→21:03)
[2019-02-03] MEDS: CLOTRIMAZOLE 1% TOPICAL SOLN 10 ML TP SCH ×3 (05:00→21:06)
[2019-02-03] MEDS: MEROPENEM 1 GM in NORMAL SALINE 50 ML IV SCH ×2 (06:14→17:57)
[2019-02-03] MEDS: CITALOPRAM HYDROBROMIDE 20 MG TABLET PO SCH (10:47)
[2019-02-03] MEDS: NYSTATIN TOPICAL POWDER 15 GM TP SCH ×2 (10:47→21:06)
[2019-02-03] MEDS: FAMOTIDINE 20 MG TABLET PO SCH ×2 (10:47→21:03)
[2019-02-03] MEDS: APIXABAN 5 MG TABLET PO SCH ×2 (10:47→18:35)
[2019-02-03] MEDS: DILTIAZEM HCL 180 MG CAPSULE.CR PO SCH (10:47)
[2019-02-03] MEDS: VANCOMYCIN HCL 750 MG in DEXTROSE 5%-WATER 250 ML IV SCH ×2 (10:47→18:59)
[2019-02-03] MEDS: ROFLUMILAST 500 MCG TABLET PO SCH (10:47)
[2019-02-03 11:34] LABS: VANCOMYCIN,TROUGH 8.9 ug/mL (5.0-20.0)
--- NOTE | 2019-02-03 11:57 | PDOC PROGRESS REPORT ---
Subjective Progress Note for:: 02/03/19 Subjective:: Patient denied any chest pain. Breathing remain laboured with efforts and she remain on supplemental oxygen via nasal cannula. No nausea, vomiting, diarrhea, or abdominal pain. No fever or chills. Reason For Visit: COPD EXACERBATION Physical Exam Vital Signs: Temp Pulse Resp BP Pulse Ox 98.2 F 87 16 119/64 96 02/03/19 00:00 02/03/19 07:16 02/03/19 07:16 02/03/19 07:16 02/03/19 07:16 Intake & Output 02/02/19 02/03/19 02/04/19 06:59 06:59 06:59 Intake Total 1312 350 Balance 1312 350 Weight 44.5 kg 45.2 kg Physical Exam: General appearance: PRESENT: mild distress - on supplemental oxygen via nasal c annula, thin Head exam: PRESENT: atraumatic, normocephalic Ear exam: PRESENT: normal external ear exam Eye exam: PRESENT: Conjunctiva pink ABSENT: pallor, sclera icterus Mouth exam: PRESENT: moist Respiratory exam: PRESENT: scattered crackles, rhonchi, wheezes Cardiovascular exam: PRESENT: RRR. ABSENT: diastolic murmur, rubs, systolic murmur Extremities exam: ABSENT: pedal edema Neurological exam: PRESENT: alert, awake, oriented to person, oriented to place, oriented to time, oriented to situation, CN II-XII grossly intact. ABSENT: motor sensory deficit Psychiatric exam: PRESENT: appropriate affect, normal mood. ABSENT: homicidal ideation, suicidal ideation Skin exam: PRESENT: dry, warm, other - port-a-cath on anterior chest wall. Results Laboratory Results: 02/01/19 05:10 02/03/19 10:45 02/03/19 10:45 Creatinine 0.79 Est GFR ( Amer) > 60 01/29/19 01:55 Blood Blood Culture - Final NO GROWTH IN 5 DAYS 01/29/19 00:15 Troponin I < 0.012 NT-Pro-B Natriuret Pep 492 H Impressions: Abdomen Ultrasound 01/29/19 00:00 IMPRESSION: Fatty liver. Echogenic kidneys, compatible with chronic medical renal disease. No evidence of cholelithiasis or acute cholecystitis. copyright 2010 [employer]- All Rights Reserved Abdomen/Pelvis CT 01/29/19 00:00 IMPRESSION: Positive for acute pulmonary embolism within the branches of the right lower lobe. No evidence of right heart strain. Consolidation along the dependent portion of the right lower lobe is likely due to atelectasis or pneumonia rather than pulmonary infarction. The above findings were discussed with and acknowledged by Dr. Escoto at 6:19 AM on 01/29/2019. Severe centrilobular emphysema with an enlarging left upper lobe mass which measures 5 mm, concerning for malignancy. No acute findings in the abdomen or pelvis. TECHNICAL DOCUMENTATION: Quality ID # 436: Final reports with documentation of one or more dose reduction techniques (e.g., Automated exposure control, adjustment of the mA and/or kV according to patient size, use of iterative reconstruction technique) copyright 2010 [employer]- All Rights Reserved Chest/Abdomen CTA 01/29/19 00:00 IMPRESSION: Positive for acute pulmonary embolism within the branches of the right lower lobe. No evidence of right heart strain. Consolidation along the dependent portion of the right lower lobe is likely due to atelectasis or pneumonia rather than pulmonary infarction. The above findings were discussed with and acknowledged by Dr. Escoto at 6:19 AM on 01/29/2019. Severe centrilobular emphysema with an enlarging left upper lobe mass which measures 5 mm, concerning for malignancy. No acute findings in the abdomen or pelvis. TECHNICAL DOCUMENTATION: Quality ID # [id number]: Final reports with documentation of one or more dose reduction techniques (e.g., Automated exposure control, adjustment of the mA and/or kV according to patient size, use of iterative reconstruction technique) copyright 2010 [employer]- All Rights Reserved Venous Doppler Study 01/29/19 00:00 IMPRESSION: NO EVIDENCE DVT OR SVT IN EITHER LEG. Chest X-Ray 01/29/19 00:55 IMPRESSION: Stable examination when compared with January 17, 2019 with redemonstration of findings compatible with chronic obstructive pulmonary process. Assessment & Plan - Diagnosis (1) COPD exacerbation Is this a current diagnosis for this admission?: Yes (2) Pulmonary embolism Qualifiers: Pulmonary embolism type: other Chronicity: chronic Acute cor pulmonale presence: without acute cor pulmonale Qualified Code(s): I27.82 - Chronic pulmonary embolism Is this a current diagnosis for this admission?: Yes (3) Pneumonia due to Pseudomonas aeruginosa Is this a current diagnosis for this admission?: Yes (4) Cystitis due to Pseudomonas Is this a current diagnosis for this admission?: Yes (5) Staphylococcus epidermidis bacteremia Is this a current diagnosis for this admission?: Yes (6) HTN (hypertension) Qualifiers: Hypertension type: essential hypertension Qualified Code(s): I10 - Essential (primary) hypertension Is this a current diagnosis for this admission?: Yes (7) HLD (hyperlipidemia) Qualifiers: Hyperlipidemia type: unspecified Qualified Code(s): E78.5 - Hyperlipidemia, unspecified Is this a current diagnosis for this admission?: Yes - Time Time Spent with patient: 25-34 minutes Level of Care: TELE Medications reviewed and adjusted accordingly: Yes Anticipated discharge: Home with Homehealth Within: Other - Inpatient Certification Based on my medical assessment, after consideration of the patient's comorbidities, presenting symptoms, or acuity I expect that the services needed warrant INPATIENT care.: Yes I certify that my determination is in accordance with my understanding of Medicare's requirements for reasonable and necessary INPATIENT services [42 CFR 412.3e].: Yes Medical Necessity: Significant Comorbidiites Make Outpatient Treatment Too R isky, Need Close Monitoring Due to Risk of Patient Decompensation, Need For IV Fluids, Need For Continuous Telemetry Monitoring, Need for Nebulizer Therapy and Monitoring of Response, Need for IV Antibiotics, Risk of Complication if Not Cared For in Hospital, Risk of Diagnosis Which Will Require Inpatient Eval/Care/Monitoring Post Hospital Care: D/C Principal Strategist Documentation - Plan Summary Plan Summary: Continue IV Meropenem and Vancomycin coverage. Follow up on blood culture findings. Obtain CBC with diff and CMP in AM.
[2019-02-03] MEDS: ALBUTEROL SULFATE 0.083% NEB 2.5 MG/3 ML AMPUL NEB PRN (16:31)
[2019-02-03] MEDS: MONTELUKAST SODIUM 10 MG TABLET PO SCH (21:03)
[2019-02-04] MEDS: CLOTRIMAZOLE 1% TOPICAL SOLN 10 ML TP SCH ×3 (06:03→21:09)
[2019-02-04] MEDS: OXYCODONE-ACETAMINOPHEN 5-325 MG TABLET PO PRN ×2 (06:03→13:20)
[2019-02-04] MEDS: MEROPENEM 1 GM in NORMAL SALINE 50 ML IV SCH ×2 (06:03→17:01)
[2019-02-04] MEDS: OXYCODONE HCL IR 5 MG TABLET PO PRN ×2 (06:04→13:21)
[2019-02-04 06:35] LABS: ABSOLUTE BASOPHILS # (AUTO) 0.1 10^3/uL (0.0-0.2); ABSOLUTE EOSINOPHILS # (AUTO) 0.5 10^3/uL (0.0-0.6); TOTAL CELLS COUNTED % (AUTO) 100 %
[2019-02-04 06:40] LABS: ABSOLUTE LYMPHOCYTES (AUTO) 2.6 10^3/uL (0.5-4.7); ABSOLUTE MONOCYTES (AUTO) 1.1 10^3/uL (0.1-1.4); ABSOLUTE NEUT (AUTO) 8.9 10^3/uL (1.7-8.2); BASOPHILS % (AUTO) 0.6 % (0-2); EOSINOPHILS % (AUTO) 3.9 % (0-6); HEMATOCRIT 35.1 % (36.0-47.0); HEMOGLOBIN 11.1 g/dL (12.0-15.5); LYMPHOCYTES % (AUTO) 19.6 % (13-45); MEAN CORPUSCULAR HEMOGLOBIN 26.2 pg (27.0-33.4); MEAN CORPUSCULAR HGB CONC 31.6 g/dL (32.0-36.0); MEAN CORPUSCULAR VOLUME 83 fl (80-97); MONOCYTES % (AUTO) 8.2 % (3-13); PLATELET COUNT 434 10^3/uL (150-450); RED BLOOD COUNT 4.24 10^6/uL (3.72-5.28); RED CELL DISTRIBUTION WIDTH 18.9 % (11.5-14.0); SEGMENTED NEUTROPHILS % (AUTO) 67.7 % (42-78); WHITE BLOOD COUNT 13.1 10^3/uL (4.0-10.5)
[2019-02-04 06:56] LABS: ALKALINE PHOSPHATASE 71 U/L (38-126); ASPARTATE AMINO TRANSFERASE 21 U/L (14-36); BILIRUBIN,DIRECT 0.1 mg/dL (0.0-0.4); BILIRUBIN,TOTAL 0.3 mg/dL (0.2-1.3); BLOOD UREA NITROGEN 20 mg/dL (7-20); CHLORIDE 98 mmol/L (98-107); GLUCOSE 84 mg/dL (75-110); POTASSIUM 4.4 mmol/L (3.6-5.0); TOTAL PROTEIN 5.9 g/dL (6.3-8.2)
[2019-02-04 07:01] LABS: CARBON DIOXIDE 37 mmol/L (22-30)
[2019-02-04 07:02] LABS: ANION GAP 4 (5-19)
[2019-02-04] MEDS: CITALOPRAM HYDROBROMIDE 20 MG TABLET PO SCH (09:46)
[2019-02-04] MEDS: FAMOTIDINE 20 MG TABLET PO SCH ×2 (09:47→21:07)
[2019-02-04] MEDS: APIXABAN 5 MG TABLET PO SCH ×2 (09:47→17:01)
[2019-02-04] MEDS: DILTIAZEM HCL 180 MG CAPSULE.CR PO SCH (09:49)
[2019-02-04] MEDS: ROFLUMILAST 500 MCG TABLET PO SCH (09:49)
[2019-02-04] MEDS: NYSTATIN TOPICAL POWDER 15 GM TP SCH ×2 (09:51→21:09)
[2019-02-04] MEDS: VANCOMYCIN HCL 750 MG in DEXTROSE 5%-WATER 250 ML IV SCH (11:52)
[2019-02-04] MEDS: ALBUTEROL SULFATE 0.083% NEB 2.5 MG/3 ML AMPUL NEB PRN (16:13)
--- NOTE | 2019-02-04 16:36 | PDOC PROGRESS REPORT ---
Subjective Progress Note for:: 02/04/19 Subjective:: Patient denied any chest pain. Patient remain on supplemental oxygen via nasal cannula. No nausea, vomiting, diarrhea, or abdominal pain. No fever or chills. Patient is requesting for restart of her Xanax ad Ambien due to anxiety and persistent insomnia. Reason For Visit: COPD EXACERBATION Physical Exam Vital Signs: Temp Pulse Resp BP Pulse Ox 98.1 F 67 16 111/61 97 02/04/19 07:34 02/04/19 07:34 02/04/19 07:34 02/04/19 07:34 02/04/19 07:34 Intake & Output 02/03/19 02/04/19 02/05/19 06:59 06:59 06:59 Intake Total 350 1043 Output Total 0 Balance 350 1043 Weight 45.2 kg 46.7 kg Physical Exam: General appearance: PRESENT: mild distress - on supplemental oxygen via nasal cannula, thin Head exam: PRESENT: atraumatic, normocephalic Ear exam: PRESENT: normal external ear exam Eye exam: PRESENT: Conjunctiva pink ABSENT: pallor, sclera icterus Mouth exam: PRESENT: moist Respiratory exam: PRESENT: scattered crackles, rhonchi, wheezes Cardiovascular exam: PRESENT: RRR. ABSENT: diastolic murmur, rubs, systolic murmur Extremities exam: ABSENT: pedal edema Neurological exam: PRESENT: alert, awake, oriented to person, oriented to place, oriented to time, oriented to situation, CN II-XII grossly intact. ABSENT: motor sensory deficit Psychiatric exam: PRESENT: appropriate affect, normal mood. ABSENT: homicidal ideation, suicidal ideation Skin exam: PRESENT: dry, warm, other - port-a-cath on anterior chest wall. Results Laboratory Results: 02/04/19 06:10 02/04/19 06:10 02/04/19 02/04/19 06:10 06:10 WBC 13.1 H RBC 4.24 Hgb 11.1 L Hct 35.1 L MCV 83 MCH 26.2 L MCHC 31.6 L RDW 18.9 H Plt Count 434 Seg Neutrophils % 67.7 Sodium 138.6 Potassium 4.4 Chloride 98 Carbon Dioxide 37 H Anion Gap 4 L BUN 20 Creatinine 0.69 Est GFR ( Amer) > 60 Glucose 84 Calcium 9.0 Total Bilirubin 0.3 AST 21 Alkaline Phosphatase 71 Total Protein 5.9 L Albumin 3.0 L 01/29/19 18:42 Sputum Gram Stain - Final 01/29/19 18:42 Sputum Sputum Culture - Final Pseudomonas Aeruginosa Greatly Reduced Normal Analy 01/29/19 00:15 Troponin I < 0.012 NT-Pro-B Natriuret Pep 492 H Impressions: Abdomen Ultrasound 01/29/19 00:00 IMPRESSION: Fatty liver. Echogenic kidneys, compatible with chronic medical renal disease. No evidence of cholelithiasis or acute cholecystitis. copyright 2010 [employer]- All Rights Reserved Abdomen/Pelvis CT 01/29/19 00:00 IMPRESSION: Positive for acute pulmonary embolism within the branches of the right lower lobe. No evidence of right heart strain. Consolidation along the dependent portion of the right lower lobe is likely due to atelectasis or pneumonia rather than pulmonary infarction. The above findings were discussed with and acknowledged by Dr. Escoto at 6:19 AM on 01/29/2019. Severe centrilobular emphysema with an enlarging left upper lobe mass which measures 5 mm, concerning for malignancy. No acute findings in the abdomen or pelvis. TECHNICAL DOCUMENTATION: Quality ID # 436: Final reports with documentation of one or more dose reduction techniques (e.g., Automated exposure control, adjustment of the mA and/or kV according to patient size, use of iterative reconstruction technique) copyright 2010 [employer]- All Rights Reserved Chest/Abdomen CTA 01/29/19 00:00 IMPRESSION: Positive for acute pulmonary embolism within the branches of the right lower lobe. No evidence of right heart strain. Consolidation along the dependent portion of the right lower lobe is likely due to atelectasis or pneumonia rather than pulmonary infarction. The above findings were discussed with and acknowledged by Dr. Escoto at 6:19 AM on 01/29/2019. Severe centrilobular emphysema with an enlarging left upper lobe mass which measures 5 mm, concerning for malignancy. No acute findings in the abdomen or pelvis. TECHNICAL DOCUMENTATION: Quality ID # [id number]: Final reports with documentation of one or more dose reduction techniques (e.g., Automated exposure control, adjustment of the mA and/or kV according to patient size, use of iterative reconstruction technique) copyright 2010 [employer]- All Rights Reserved Venous Doppler Study 01/29/19 00:00 IMPRESSION: NO EVIDENCE DVT OR SVT IN EITHER LEG. Chest X-Ray 01/29/19 00:55 IMPRESSION: Stable examination when compared with January 17, 2019 with redemonstration of findings compatible with chronic obstructive pulmonary process. Assessment & Plan - Diagnosis (1) COPD exacerbation Is this a current diagnosis for this admission?: Yes (2) Pulmonary embolism Qualifiers: Pulmonary embolism type: other Chronicity: chronic Acute cor pulmonale presence: without acute cor pulmonale Qualified Code(s): I27.82 - Chronic pulmonary embolism Is this a current diagnosis for this admission?: Yes (3) Pneumonia due to Pseudomonas aeruginosa Is this a current diagnosis for this admission?: Yes (4) Cystitis due to Pseudomonas Is this a current diagnosis for this admission?: Yes (5) Staphylococcus epidermidis bacteremia Is this a current diagnosis for this admission?: Yes (6) HTN (hypertension) Qualifiers: Hypertension type: essential hypertension Qualified Code(s): I10 - Essential (primary) hypertension Is this a current diagnosis for this admission?: Yes (7) HLD (hyperlipidemia) Qualifiers: Hyperlipidemia type: unspecified Qualified Code(s): E78.5 - Hyperlipidemia, unspecified Is this a current diagnosis for this admission?: Yes (8) Persistent insomnia Is this a current diagnosis for this admission?: Yes Plan: Restart on Preadmission Ambient therapy. (9) Mixed anxiety and depressive disorder Is this a current diagnosis for this admission?: Yes Plan: Restart on preadmission Xanax therapy. - Time Time Spent with patient: 25-34 minutes Level of Care: TELE Medications reviewed and adjusted accordingly: Yes Anticipated discharge: Home with Homehealth Within: Other - Inpatient Certification Based on my medical assessment, after consideration of the patient's comorbidities, presenting symptoms, or acuity I expect that the services needed warrant INPATIENT care.: Yes I certify that my determination is in accordance with my understanding of [facility]'s requirements for reasonable and necessary INPATIENT services [42 CFR 412.3e].: Yes Medical Necessity: Significant Comorbidiites Make Outpatient Treatment Too Risky, Need Close Monitoring Due to Risk of Patient Decompensation, Need For IV Fluids, Need For Continuous Telemetry Monitoring, Need for Nebulizer Therapy and Monitoring of Response, Need for IV Antibiotics, Risk of Complication if Not Cared For in Hospital, Risk of Diagnosis Which Will Require Inpatient Eval/Care/Monitoring Post Hospital Care: D/C Licensed Sales Producer Documentation - Plan Summary Plan Summary: Restart on Xanax and Ambien therapy. Maintain on current IV antibiotic coverage. Follow up on blood culture finding.
[2019-02-04] MEDS: ALPRAZOLAM 0.5 MG TABLET PO PRN (17:58)
[2019-02-04] MEDS ORDERED: OXYCODONE-ACETAMINOPHEN 5-325 MG TABLET PO PRN (18:05)
[2019-02-04] MEDS ORDERED: OXYCODONE HCL IR 5 MG TABLET PO PRN (18:05)
[2019-02-04] MEDS: MONTELUKAST SODIUM 10 MG TABLET PO SCH (21:07)
[2019-02-04] MEDS: ZOLPIDEM TARTRATE 5 MG TABLET PO PRN (22:04)
[2019-02-05] MEDS: CLOTRIMAZOLE 1% TOPICAL SOLN 10 ML TP SCH ×3 (05:32→22:53)
[2019-02-05] MEDS: MEROPENEM 1 GM in NORMAL SALINE 50 ML IV SCH ×2 (05:32→17:49)
[2019-02-05] MEDS: VANCOMYCIN HCL 750 MG in DEXTROSE 5%-WATER 250 ML IV SCH ×2 (06:33→23:03)
[2019-02-05] MEDS: OXYCODONE HCL IR 5 MG TABLET PO PRN ×2 (07:31→20:45)
[2019-02-05] MEDS: OXYCODONE-ACETAMINOPHEN 5-325 MG TABLET PO PRN ×2 (07:33→20:45)
[2019-02-05] MEDS: FAMOTIDINE 20 MG TABLET PO SCH ×2 (09:58→23:03)
[2019-02-05] MEDS: APIXABAN 5 MG TABLET PO SCH ×2 (09:58→17:48)
[2019-02-05] MEDS: CITALOPRAM HYDROBROMIDE 20 MG TABLET PO SCH (09:58)
[2019-02-05] MEDS: DILTIAZEM HCL 180 MG CAPSULE.CR PO SCH (09:58)
[2019-02-05] MEDS: ROFLUMILAST 500 MCG TABLET PO SCH (09:59)
[2019-02-05] MEDS: NYSTATIN TOPICAL POWDER 15 GM TP SCH ×2 (10:00→22:53)
[2019-02-05] MEDS: ALPRAZOLAM 0.5 MG TABLET PO PRN ×2 (12:27→23:03)
--- NOTE | 2019-02-05 12:48 | PDOC PROGRESS REPORT ---
Subjective Progress Note for:: 02/05/19 Subjective:: No chest pain. Breathing remain fair at rest but become labored with exertion. Patient remain on supplemental oxygen via nasal cannula. Patient reported poor appetite, po.o intake, and early satiety. No nausea, vomiting, diarrhea, or abdominal pain. No fever or chills. Reason For Visit: COPD EXACERBATION Physical Exam Vital Signs: Temp Pulse Resp BP Pulse Ox 97.7 F 82 18 110/65 100 02/05/19 07:38 02/05/19 07:38 02/05/19 07:38 02/05/19 07:38 02/05/19 07:38 Intake & Output 02/04/19 02/05/19 02/06/19 06:59 06:59 06:59 Intake Total 1043 350 250 Output Total 0 Balance 1043 350 250 Weight 46.7 kg 46.3 kg Physical Exam: General appearance: PRESENT: mild distress - on supplemental oxygen via nasal cannula, thin Head exam: PRESENT: atraumatic, normocephalic Ear exam: PRESENT: normal external ear exam Eye exam: PRESENT: Conjunctiva pink ABSENT: pallor, sclera icterus Mouth exam: PRESENT: moist Respiratory exam: PRESENT: scattered crackles, rhonchi, wheezes Cardiovascular exam: PRESENT: RRR. ABSENT: diastolic murmur, rubs, systolic murmur Extremities exam: ABSENT: pedal edema Neurological exam: PRESENT: alert, awake, oriented to person, oriented to place, oriented to time, oriented to situation, CN II-XII grossly intact. ABSENT: motor sensory deficit Psychiatric exam: PRESENT: appropriate affect, normal mood. ABSENT: homicidal ideation, suicidal ideation Skin exam: PRESENT: dry, warm, other - port-a-cath on anterior chest wall. Results Laboratory Results: 02/04/19 06:10 02/04/19 06:10 01/30/19 17:20 Blood Blood Culture - Final NO GROWTH IN 5 DAYS 01/30/19 17:29 Blood Blood Culture - Final NO GROWTH IN 5 DAYS 01/29/19 00:15 Troponin I < 0.012 NT-Pro-B Natriuret Pep 492 H Impressions: Abdomen Ultrasound 01/29/19 00:00 IMPRESSION: Fatty liver. Echogenic kidneys, compatible with chronic medical renal disease. No evidence of cholelithiasis or acute cholecystitis. copyright 2011 [employer] All Rights Reserved Abdomen/Pelvis CT 01/29/19 00:00 IMPRESSION: Positive for acute pulmonary embolism within the branches of the right lower lobe. No evidence of right heart strain. Consolidation along the dependent portion of the right lower lobe is likely due to atelectasis or pneumonia rather than pulmonary infarction. The above findings were discussed with and acknowledged by Dr. Escoto at 6:19 AM on 01/29/2019. Severe centrilobular emphysema with an enlarging left upper lobe mass which measures 5 mm, concerning for malignancy. No acute findings in the abdomen or pelvis. TECHNICAL DOCUMENTATION: Quality ID # [id number]: Final reports with documentation of one or more dose reduction techniques (e.g., Automated exposure control, adjustment of the mA and/or kV according to patient size, use of iterative reconstruction technique) copyright 2010 [employer] All Rights Reserved Chest/Abdomen CTA 01/29/19 00:00 IMPRESSION: Positive for acute pulmonary embolism within the branches of the right lower lobe. No evidence of right heart strain. Consolidation along the dependent portion of the right lower lobe is likely due to atelectasis or pneumonia rather than pulmonary infarction. The above findings were discussed with and acknowledged by Dr. Escoto at 6:19 AM on 01/29/2019. Severe centrilobular emphysema with an enlarging left upper lobe mass which measures 5 mm, concerning for malignancy. No acute findings in the abdomen or pelvis. TECHNICAL DOCUMENTATION: Quality ID # [id number]: Final reports with documentation of one or more dose reduction techniques (e.g., Automated exposure control, adjustment of the mA and/or kV according to patient size, use of iterative reconstruction technique) copyright 2010 [employer] All Rights Reserved Venous Doppler Study 01/29/19 00:00 IMPRESSION: NO EVIDENCE DVT OR SVT IN EITHER LEG. Chest X-Ray 01/29/19 00:55 IMPRESSION: Stable examination when compared with January 17, 2019 with redemonstration of findings compatible with chronic obstructive pulmonary process. Assessment & Plan - Diagnosis (1) COPD exacerbation Is this a current diagnosis for this admission?: Yes (2) Pulmonary embolism Qualifiers: Pulmonary embolism type: other Chronicity: chronic Acute cor pulmonale presence: without acute cor pulmonale Qualified Code(s): I27.82 - Chronic pulmonary embolism Is this a current diagnosis for this admission?: Yes (3) Pneumonia due to Pseudomonas aeruginosa Is this a current diagnosis for this admission?: Yes (4) Cystitis due to Pseudomonas Is this a current diagnosis for this admission?: Yes (5) Staphylococcus epidermidis bacteremia Is this a current diagnosis for this admission?: Yes (6) HTN (hypertension) Qualifiers: Hypertension type: essential hypertension Qualified Code(s): I10 - Essential (primary) hypertension Is this a current diagnosis for this admission?: Yes (7) HLD (hyperlipidemia) Qualifiers: Hyperlipidemia type: unspecified Qualified Code(s): E78.5 - Hyperlipidemia, unspecified Is this a current diagnosis for this admission?: Yes (8) Persistent insomnia Is this a current diagnosis for this admission?: Yes (9) Mixed anxiety and depressive disorder Is this a current diagnosis for this admission?: Yes - Time Time Spent with patient: 25-34 minutes Level of Care: IMCU Medications reviewed and adjusted accordingly: Yes Anticipated discharge: Home with Homehealth Within: Other - Inpatient Certification Based on my medical assessment, after consideration of the patient's comorbidities, presenting symptoms, or acuity I expect that the services needed warrant INPATIENT care.: Yes I certify that my determination is in accordance with my understanding of Medicare's requirements for reasonable and necessary INPATIENT services [42 CFR 412.3e].: Yes Medical Necessity: Significant Comorbidiites Make Outpatient Treatment Too Risky, Need Close Monitoring Due to Risk of Patient Decompensation, Need For IV Fluids, Need For Continuous Telemetry Monitoring, Need for Nebulizer Therapy and Monitoring of Response, Need for IV Antibiotics, Risk of Complication if Not Cared For in Hospital, Risk of Diagnosis Which Will Require Inpatient Eval/Care/Monitoring Post Hospital 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 Start on MVI with iron 1 tablet po daily. Obtain repeat chest X ray portable evaluation. Maintain on all other current medication management.
[2019-02-05] MEDS: MULTIVITAMINS W-IRON TABLET, CHEWABLE PO SCH (17:50)
[2019-02-05] MEDS: CYPROHEPTADINE HCL 4 MG TABLET PO SCH (17:54)
[2019-02-05] MEDS: MONTELUKAST SODIUM 10 MG TABLET PO SCH (23:03)
[2019-02-05] MEDS: ZOLPIDEM TARTRATE 5 MG TABLET PO PRN (23:03)
[2019-02-06] MEDS: OXYCODONE-ACETAMINOPHEN 5-325 MG TABLET PO PRN ×3 (03:11→17:38)
[2019-02-06] MEDS: OXYCODONE HCL IR 5 MG TABLET PO PRN ×3 (03:11→17:37)
[2019-02-06] MEDS: CLOTRIMAZOLE 1% TOPICAL SOLN 10 ML TP SCH ×3 (05:55→21:39)
[2019-02-06] MEDS: MEROPENEM 1 GM in NORMAL SALINE 50 ML IV SCH ×2 (06:12→17:38)
[2019-02-06] MEDS: CYPROHEPTADINE HCL 4 MG TABLET PO SCH ×2 (09:31→17:38)
[2019-02-06] MEDS: CITALOPRAM HYDROBROMIDE 20 MG TABLET PO SCH (09:32)
[2019-02-06] MEDS: FAMOTIDINE 20 MG TABLET PO SCH ×2 (09:32→21:37)
[2019-02-06] MEDS: ROFLUMILAST 500 MCG TABLET PO SCH (09:32)
[2019-02-06] MEDS: APIXABAN 5 MG TABLET PO SCH ×2 (09:32→17:38)
[2019-02-06] MEDS: MULTIVITAMINS W-IRON TABLET, CHEWABLE PO SCH (09:32)
[2019-02-06] MEDS: DILTIAZEM HCL 180 MG CAPSULE.CR PO SCH (09:32)
[2019-02-06] MEDS: NYSTATIN TOPICAL POWDER 15 GM TP SCH ×2 (09:33→21:38)
[2019-02-06] MEDS ORDERED: VANCOMYCIN HCL 500 MG in DEXTROSE 5%-WATER 100 ML IV SCH (12:00)
--- NOTE | 2019-02-06 17:56 | PDOC PROGRESS REPORT ---
Subjective Progress Note for:: 02/06/19 Subjective:: No chest pain. Patient continue to be oxygen dependent with supplemental oxygen via nasal cannula. Patient reported some improvement in her appetite and p.o intake so far today. No nausea, vomiting, diarrhea, or abdominal pain. No fever or chills. Reason For Visit: COPD EXACERBATION Physical Exam Vital Signs: Temp Pulse Resp BP Pulse Ox 97.9 F 97 17 109/68 100 02/06/19 16:05 02/06/19 16:05 02/06/19 16:05 02/06/19 16:05 02/06/19 16:05 Intake & Output 02/05/19 02/06/19 02/07/19 06:59 06:59 06:59 Intake Total 350 600 100 Balance 350 600 100 Weight 46.3 kg 46.2 kg General appearance: PRESENT: mild distress - on supplemental oxygen via nasal cannula, thin Head exam: PRESENT: atraumatic, normocephalic Ear exam: PRESENT: normal external ear exam Eye exam: PRESENT: Conjunctiva pink ABSENT: pallor, sclera icterus Mouth exam: PRESENT: moist Respiratory exam: PRESENT: scattered crackles, rhonchi, wheezes Cardiovascular exam: PRESENT: RRR. ABSENT: diastolic murmur, rubs, systolic murmur Extremities exam: ABSENT: pedal edema Neurological exam: PRESENT: alert, awake, oriented to person, oriented to place, oriented to time, oriented to situation, CN II-XII grossly intact. ABSENT: motor sensory deficit Psychiatric exam: PRESENT: appropriate affect, normal mood. ABSENT: homicidal ideation, suicidal ideation Skin exam: PRESENT: dry, warm, other - port-a-cath on anterior chest wall dressing is satisfactory. Results Laboratory Results: 02/04/19 06:10 02/04/19 06:10 01/29/19 00:15 Troponin I < 0.012 NT-Pro-B Natriuret Pep 492 H Impressions: Abdomen Ultrasound 01/29/19 00:00 IMPRESSION: Fatty liver. Echogenic kidneys, compatible with chronic medical renal disease. No evidence of cholelithiasis or acute cholecystitis. copyright 2010 [employer]- All Rights Reserved Abdomen/Pelvis CT 01/29/19 00:00 IMPRESSION: Positive for acute pulmonary embolism within the branches of the right lower lobe. No evidence of right heart strain. Consolidation along the dependent portion of the right lower lobe is likely due to atelectasis or pneumonia rather than pulmonary infarction. The above findings were discussed with and acknowledged by Dr. Escoto at 6:19 AM on 01/29/2019. Severe centrilobular emphysema with an enlarging left upper lobe mass which measures 5 mm, concerning for malignancy. No acute findings in the abdomen or pelvis. TECHNICAL DOCUMENTATION: Quality ID # [id number]: Final reports with documentation of one or more dose reduction techniques (e.g., Automated exposure control, adjustment of the mA and/or kV according to patient size, use of iterative reconstruction technique) copyright 2010 [employer]- All Rights Reserved Chest/Abdomen CTA 01/29/19 00:00 IMPRESSION: Positive for acute pulmonary embolism within the branches of the right lower lobe. No evidence of right heart strain. Consolidation along the dependent portion of the right lower lobe is likely due to atelectasis or pneumonia rather than pulmonary infarction. The above findings were discussed with and acknowledged by Dr. Escoto at 6:19 AM on 01/29/2019. Severe centrilobular emphysema with an enlarging left upper lobe mass which measures 5 mm, concerning for malignancy. No acute findings in the abdomen or pelvis. TECHNICAL DOCUMENTATION: Quality ID # [id number]: Final reports with documentation of one or more dose reduction techniques (e.g., Automated exposure control, adjustment of the mA and/or kV according to patient size, use of iterative reconstruction technique) copyright 2010 [employer]- All Rights Reserved Venous Doppler Study 01/29/19 00:00 IMPRESSION: NO EVIDENCE DVT OR SVT IN EITHER LEG. Chest X-Ray 01/29/19 00:55 IMPRESSION: Stable examination when compared with January 17, 2019 with redemonstration of findings compatible with chronic obstructive pulmonary process. Assessment & Plan - Diagnosis (1) COPD exacerbation Is this a current diagnosis for this admission?: Yes (2) Pulmonary embolism Qualifiers: Pulmonary embolism type: other Chronicity: chronic Acute cor pulmonale presence: without acute cor pulmonale Qualified Code(s): I27.82 - Chronic pulmonary embolism Is this a current diagnosis for this admission?: Yes (3) Pneumonia due to Pseudomonas aeruginosa Is this a current diagnosis for this admission?: Yes (4) Cystitis due to Pseudomonas Is this a current diagnosis for this admission?: Yes (5) Staphylococcus epidermidis bacteremia Is this a current diagnosis for this admission?: Yes (6) HTN (hypertension) Qualifiers: Hypertension type: essential hypertension Qualified Code(s): I10 - Essen tial (primary) hypertension Is this a current diagnosis for this admission?: Yes (7) HLD (hyperlipidemia) Qualifiers: Hyperlipidemia type: unspecified Qualified Code(s): E78.5 - Hyperlipidemia, unspecified Is this a current diagnosis for this admission?: Yes (8) Persistent insomnia Is this a current diagnosis for this admission?: Yes (9) Mixed anxiety and depressive disorder Is this a current diagnosis for this admission?: Yes - Time Time Spent with patient: 35 or more minutes Level of Care: TELE Medications reviewed and adjusted accordingly: Yes Anticipated discharge: Home with Homehealth Within: Other - Inpatient Certification Based on my medical assessment, after consideration of the patient's comorbidities, presenting symptoms, or acuity I expect that the services needed warrant INPATIENT care.: Yes I certify that my determination is in accordance with my understanding of [facility]'s requirements for reasonable and necessary INPATIENT services [42 CFR 412.3e].: Yes Medical Necessity: Significant Comorbidiites Make Outpatient Treatment Too Risky, Need Close Monitoring Due to Risk of Patient Decompensation, Need For IV Fluids, Need For Continuous Telemetry Monitoring, Need for Nebulizer Therapy and Monitoring of Response, Need for IV Antibiotics, Risk of Complication if Not Cared For in Hospital, Risk of Diagnosis Which Will Require Inpatient Eval/Care/Monitoring Post Hospital 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 Obtain CBC with diff and CMP in AM. Maintain on al other current medication management.
[2019-02-06] MEDS: MONTELUKAST SODIUM 10 MG TABLET PO SCH (21:36)
[2019-02-06] MEDS: ALPRAZOLAM 0.5 MG TABLET PO PRN (21:41)
[2019-02-06] MEDS: ZOLPIDEM TARTRATE 5 MG TABLET PO PRN (21:41)
[2019-02-07] MEDS: OXYCODONE-ACETAMINOPHEN 5-325 MG TABLET PO PRN ×3 (03:06→21:35)
[2019-02-07] MEDS: OXYCODONE HCL IR 5 MG TABLET PO PRN ×3 (03:07→21:35)
[2019-02-07] MEDS: MEROPENEM 1 GM in NORMAL SALINE 50 ML IV SCH ×2 (05:37→17:50)
[2019-02-07] MEDS: CLOTRIMAZOLE 1% TOPICAL SOLN 10 ML TP SCH ×3 (05:38→21:29)
[2019-02-07] MEDS: CITALOPRAM HYDROBROMIDE 20 MG TABLET PO SCH (10:35)
[2019-02-07] MEDS: NYSTATIN TOPICAL POWDER 15 GM TP SCH ×2 (10:35→21:29)
[2019-02-07] MEDS: CYPROHEPTADINE HCL 4 MG TABLET PO SCH ×2 (10:35→17:50)
[2019-02-07] MEDS: ROFLUMILAST 500 MCG TABLET PO SCH (10:35)
[2019-02-07] MEDS: FAMOTIDINE 20 MG TABLET PO SCH ×2 (10:35→21:35)
[2019-02-07] MEDS: MULTIVITAMINS W-IRON TABLET, CHEWABLE PO SCH (10:35)
[2019-02-07] MEDS: DILTIAZEM HCL 180 MG CAPSULE.CR PO SCH (10:35)
[2019-02-07] MEDS: APIXABAN 5 MG TABLET PO SCH ×2 (10:36→17:50)
[2019-02-07 11:26] LABS: VANCOMYCIN,TROUGH 17.1 ug/mL (5.0-20.0)
[2019-02-07] MEDS: ALPRAZOLAM 0.5 MG TABLET PO PRN (13:09)
--- NOTE | 2019-02-07 16:27 | PDOC PROGRESS REPORT ---
Subjective Progress Note for:: 02/07/19 Subjective:: No chest pain. Patient remain on supplemental oxygen. No nausea, vomiting, diarrhea, or abdominal pain. No fever or chills. Reason For Visit: COPD EXACERBATION Physical Exam Vital Signs: Temp Pulse Resp BP Pulse Ox 98.1 F 102 H 18 115/59 L 100 02/07/19 10:52 02/07/19 14:00 02/07/19 10:52 02/07/19 10:52 02/07/19 10:52 Intake & Output 02/06/19 02/07/19 02/08/19 06:59 06:59 06:59 Intake Total 600 150 50 Balance 600 150 50 Weight 46.2 kg 47.2 kg Physical Exam: General appearance: PRESENT: mild distress - on supplemental oxygen via nasal cannula, thin Head exam: PRESENT: atraumatic, normocephalic Ear exam: PRESENT: normal external ear exam Eye exam: PRESENT: Conjunctiva pink ABSENT: pallor, sclera icterus Mouth exam: PRESENT: moist Respiratory exam: PRESENT: scattered crackles, rhonchi, wheezes Cardiovascular exam: PRESENT: RRR. ABSENT: diastolic murmur, rubs, systolic murmur Extremities exam: ABSENT: pedal edema Neurological exam: PRESENT: alert, awake, oriented to person, oriented to place, oriented to time, oriented to situation, CN II-XII grossly intact. ABSENT: motor sensory deficit Psychiatric exam: PRESENT: appropriate affect, normal mood. ABSENT: homicidal ideation, suicidal ideation Skin exam: PRESENT: dry, warm, other - port-a-cath on anterior chest wall dressing is satisfactory. Results Laboratory Results: 02/04/19 06:10 02/07/19 10:45 02/07/19 10:45 Creatinine 0.94 Est GFR ( Amer) > 60 01/29/19 00:15 Troponin I < 0.012 NT-Pro-B Natriuret Pep 492 H Impressions: Abdomen Ultrasound 01/29/19 00:00 IMPRESSION: Fatty liver. Echogenic kidneys, compatible with chronic medical renal disease. No evidence of cholelithiasis or acute cholecystitis. copyright 2010 [employer]- All Rights Reserved Abdomen/Pelvis CT 01/29/19 00:00 IMPRESSION: Positive for acute pulmonary embolism within the branches of the right lower lobe. No evidence of right heart strain. Consolidation along the dependent portion of the right lower lobe is likely due to atelectasis or pneumonia rather than pulmonary infarction. The above findings were discussed with and acknowledged by Dr. Escoto at 6:19 AM on 01/29/2019. Severe centrilobular emphysema with an enlarging left upper lobe mass which measures 5 mm, concerning for malignancy. No acute findings in the abdomen or pelvis. TECHNICAL DOCUMENTATION: Quality ID # [id number]: Final reports with documentation of one or more dose reduction techniques (e.g., Automated exposure control, adjustment of the mA and/or kV according to patient size, use of iterative reconstruction technique) copyright 2010 [employer]- All Rights Reserved Chest/Abdomen CTA 01/29/19 00:00 IMPRESSION: Positive for acute pulmonary embolism within the branches of the right lower lobe. No evidence of right heart strain. Consolidation along the dependent portion of the right lower lobe is likely due to atelectasis or pneumonia rather than pulmonary infarction. The above findings were discussed with and acknowledged by Dr. Escoto at 6:19 AM on 01/29/2019. Severe centrilobular emphysema with an enlarging left upper lobe mass which measures 5 mm, concerning for malignancy. No acute findings in the abdomen or pelvis. TECHNICAL DOCUMENTATION: Quality ID # [id number]: Final reports with documentation of one or more dose reduction techniques (e.g., Automated exposure control, adjustment of the mA and/or kV according to patient size, use of iterative reconstruction technique) copyright 2010 [employer]- All Rights Reserved Venous Doppler Study 01/29/19 00:00 IMPRESSION: NO EVIDENCE DVT OR SVT IN EITHER LEG. Chest X-Ray 01/29/19 00:55 IMPRESSION: Stable examination when compared with January 17, 2019 with redemonstration of findings compatible with chronic obstructive pulmonary process. Assessment & Plan - Diagnosis (1) COPD exacerbation Is this a current diagnosis for this admission?: Yes (2) Pulmonary embolism Qualifiers: Pulmonary embolism type: other Chronicity: chronic Acute cor pulmonale presence: without acute cor pulmonale Qualified Code(s): I27.82 - Chronic pulmonary embolism Is this a current diagnosis for this admission?: Yes (3) Pneumonia due to Pseudomonas aeruginosa Is this a current diagnosis for this admission?: Yes (4) Cystitis due to Pseudomonas Is this a current diagnosis for this admission?: Yes (5) Staphylococcus epidermidis bacteremia Is this a current diagnosis for this admission?: Yes (6) HTN (hypertension) Qualifiers: Hypertension type: essential hypertension Qualified Code(s): I10 - Essential (primary) hypertension Is this a current diagnosis for this admission?: Yes (7) HLD (hyperlipidemia) Qualifiers: Hyperlipidemia type: unspecified Qualified Code(s): E78.5 - Hyperlipidemia, unspecified Is this a current diagnosis for this admission?: Yes (8) Persistent insomnia Is this a current diagnosis for this admission?: Yes (9) Mixed anxiety and depressive disorder Is this a current diagnosis for this admission?: Yes - Time Time Spent with patient: 25-34 minutes Level of Care: TELE Medications reviewed and adjusted accordingly: Yes Anticipated discharge: Home with Homehealth Within: Other - Inpatient Certification Based on my medical assessment, after consideration of the patient's comorbidities, presenting symptoms, or acuity I expect that the services needed warrant INPATIENT care.: Yes I certify that my determination is in accordance with my understanding of Medicare's requirements for reasonable and necessary INPATIENT services [42 CFR 412.3e].: Yes Medical Necessity: Significant Comorbidiites Make Outpatient Treatment Too Risky, Need Close Monitoring Due to Risk of Patient Decompensation, Need for IV Antibiotics, Risk of Complication if Not Cared For in Hospital, Risk of Diagnosis Which Will Require Inpatient Eval/Care/Monitoring Post Hospital Care: D/C Scrap Carrier Documentation - Plan Summary Plan Summary: Continue current medication management. IV Vancomycin has fallen off MAR after day # 8 of therapy. Continue IV Meropenem coverage on day # 9.
[2019-02-07] MEDS: MONTELUKAST SODIUM 10 MG TABLET PO SCH (21:34)
[2019-02-07] MEDS: ZOLPIDEM TARTRATE 5 MG TABLET PO PRN (21:35)
[2019-02-08] MEDS: CLOTRIMAZOLE 1% TOPICAL SOLN 10 ML TP SCH ×3 (06:00→22:07)
[2019-02-08] MEDS: MEROPENEM 1 GM in NORMAL SALINE 50 ML IV SCH ×2 (06:00→18:07)
[2019-02-08] MEDS: OXYCODONE-ACETAMINOPHEN 5-325 MG TABLET PO PRN ×3 (06:05→22:04)
[2019-02-08] MEDS: OXYCODONE HCL IR 5 MG TABLET PO PRN ×3 (06:06→22:04)
[2019-02-08] MEDS: NYSTATIN TOPICAL POWDER 15 GM TP SCH ×2 (10:05→22:07)
[2019-02-08] MEDS: CITALOPRAM HYDROBROMIDE 20 MG TABLET PO SCH (10:06)
[2019-02-08] MEDS: MULTIVITAMINS W-IRON TABLET, CHEWABLE PO SCH (10:07)
[2019-02-08] MEDS: FAMOTIDINE 20 MG TABLET PO SCH ×2 (10:07→22:03)
[2019-02-08] MEDS: CYPROHEPTADINE HCL 4 MG TABLET PO SCH ×2 (10:07→18:07)
[2019-02-08] MEDS: APIXABAN 5 MG TABLET PO SCH ×2 (10:07→18:07)
[2019-02-08] MEDS: DILTIAZEM HCL 180 MG CAPSULE.CR PO SCH (10:07)
[2019-02-08] MEDS: ROFLUMILAST 500 MCG TABLET PO SCH (10:07)
[2019-02-08] MEDS: ALPRAZOLAM 0.5 MG TABLET PO PRN (10:14)
[2019-02-08] MEDS: ALBUTEROL SULFATE 0.083% NEB 2.5 MG/3 ML AMPUL NEB PRN (13:36)
--- NOTE | 2019-02-08 20:13 | PDOC PROGRESS REPORT ---
Subjective Progress Note for:: 02/08/19 Subjective:: Patient remain on supplemental oxygen. There is baseline exertional dyspnea. No chest pain. No nausea, vomiting, diarrhea, or abdominal pain. No fever or chills. Reason For Visit: COPD EXACERBATION Physical Exam Vital Signs: Temp Pulse Resp BP Pulse Ox 97.8 F 98 19 107/61 93 02/08/19 15:37 02/08/19 15:37 02/08/19 15:37 02/08/19 15:37 02/08/19 15:37 Intake & Output 02/07/19 02/08/19 02/09/19 06:59 06:59 06:59 Intake Total 150 150 Balance 150 150 Weight 47.2 kg 44.7 kg Physical Exam: General appearance: PRESENT: mild distress - on supplemental oxygen via nasal cannula, thin Head exam: PRESENT: atraumatic, normocephalic Ear exam: PRESENT: normal external ear exam Eye exam: PRESENT: Conjunctiva pink ABSENT: pallor, sclera icterus Mouth exam: PRESENT: moist Respiratory exam: PRESENT: minimal scattered crackles, end expiratory rhonchi Cardiovascular exam: PRESENT: RRR. ABSENT: diastolic murmur, rubs, systolic murmur Extremities exam: ABSENT: pedal edema Neurological exam: PRESENT: alert, awake, oriented to person, oriented to place, oriented to time, oriented to situation, CN II-XII grossly intact. ABSENT: motor sensory deficit Psychiatric exam: PRESENT: appropriate affect, normal mood. ABSENT: homicidal ideation, suicidal ideation Skin exam: PRESENT: dry, warm, other - port-a-cath on anterior chest wall dressing is satisfactory. Results Laboratory Results: 02/04/19 06:10 02/07/19 10:45 01/29/19 00:15 Troponin I < 0.012 NT-Pro-B Natriuret Pep 492 H Impressions: Abdomen Ultrasound 01/29/19 00:00 IMPRESSION: Fatty liver. Echogenic kidneys, compatible with chronic medical renal disease. No evidence of cholelithiasis or acute cholecystitis. copyright 2010 [employer]- All Rights Reserved Abdomen/Pelvis CT 01/29/19 00:00 IMPRESSION: Positive for acute pulmonary embolism within the branches of the right lower lobe. No evidence of right heart strain. Consolidation along the dependent portion of the right lower lobe is likely due to atelectasis or pneumonia rather than pulmonary infarction. The above findings were discussed with and acknowledged by Dr. Escoto at 6:19 AM on 01/29/2019. Severe centrilobular emphysema with an enlarging left upper lobe mass which measures 5 mm, concerning for malignancy. No acute findings in the abdomen or pelvis. TECHNICAL DOCUMENTATION: Quality ID # [id number]: Final reports with documentation of one or more dose reduction techniques (e.g., Automated exposure control, adjustment of the mA and/or kV according to patient size, use of iterative reconstruction technique) copyright 2010 [employer]- All Rights Reserved Chest/Abdomen CTA 01/29/19 00:00 IMPRESSION: Positive for acute pulmonary embolism within the branches of the right lower lobe. No evidence of right heart strain. Consolidation along the dependent portion of the right lower lobe is likely due to atelectasis or pneumonia rather than pulmonary infarction. The above findings were discussed with and acknowledged by Dr. Escoto at 6:19 AM on 01/29/2019. Severe centrilobular emphysema with an enlarging left upper lobe mass which measures 5 mm, concerning for malignancy. No acute findings in the abdomen or pelvis. TECHNICAL DOCUMENTATION: Quality ID # [id number]: Final reports with documentation of one or more dose reduction techniques (e.g., Automated exposure control, adjustment of the mA and/or kV according to patient size, use of iterative reconstruction technique) copyright 2010 [employer]- All Rights Reserved Venous Doppler Study 01/29/19 00:00 IMPRESSION: NO EVIDENCE DVT OR SVT IN EITHER LEG. Chest X-Ray 01/29/19 00:55 IMPRESSION: Stable examination when compared with January 17, 2019 with redemonstration of findings compatible with chronic obstructive pulmonary process. Assessment & Plan - Diagnosis (1) COPD exacerbation Is this a current diagnosis for this admission?: Yes (2) Pulmonary embolism Qualifiers: Pulmonary embolism type: other Chronicity: chronic Acute cor pulmonale presence: without acute cor pulmonale Qualified Code(s): I27.82 - Chronic pulmonary embolism Is this a current diagnosis for this admission?: Yes (3) Pneumonia due to Pseudomonas aeruginosa Is this a current diagnosis for this admission?: Yes (4) Cystitis due to Pseudomonas Is this a current diagnosis for this admission?: Yes (5) Staphylococcus epidermidis bacteremia Is this a current diagnosis for this admission?: Yes (6) HTN (hypertension) Qualifiers: Hypertension type: essential hypertension Qualified Code(s): I10 - Essential (primary) hypertension Is this a current diagnosis for this admission?: Yes (7) HLD (hyperlipidemia) Qualifiers: Hyperlipidemia type: unspecified Qualified Code(s): E78.5 - Hyperlipidemia, unspecified Is this a current diagnosis for this admission?: Yes (8) Persistent insomnia Is this a current diagnosis for this admission?: Yes (9) Mixed anxiety and depressive disorder Is this a current diagnosis for this admission?: Yes - Time Time Spent with patient: 25-34 minutes Level of Care: TELE Medications reviewed and adjusted accordingly: Yes Anticipated discharge: Home with Homehealth Within: Other - Inpatient Certification Based on my medical assessment, after consideration of the patient's comorbidities, presenting symptoms, or acuity I expect that the services needed warrant INPATIENT care.: Yes I certify that my determination is in accordance with my understanding of Medicare's requirements for reasonable and necessary INPATIENT services [42 CFR 412.3e].: Yes Medical Necessity: Significant Comorbidiites Make Outpatient Treatment Too Risky, Need Close Monitoring Due to Risk of Patient Decompensation, Need For IV Fluids, Need For Continuous Telemetry Monitoring, Need for Nebulizer Therapy and Monitoring of Response, Need for Pain Control, Need for IV Antibiotics, Risk of Complication if Not Cared For in Hospital, Risk of Diagnosis Which Will Require Inpatient Eval/Care/Monitoring Post Hospital Care: D/C Authorization Manager Documentation - Plan Summary Plan Summary: D/C IV Meropenem after tonight's dose administration as day # 10 of therapy. Continue all other current mediation management.
[2019-02-08] MEDS: MONTELUKAST SODIUM 10 MG TABLET PO SCH (22:03)
[2019-02-08] MEDS: ZOLPIDEM TARTRATE 5 MG TABLET PO PRN (22:03)
[2019-02-09] MEDS: OXYCODONE-ACETAMINOPHEN 5-325 MG TABLET PO PRN (04:57)
[2019-02-09] MEDS: OXYCODONE HCL IR 5 MG TABLET PO PRN (04:57)
[2019-02-09] MEDS: CLOTRIMAZOLE 1% TOPICAL SOLN 10 ML TP SCH (05:01)
--- NOTE | 2019-02-09 08:39 | Progress Note ---
Provider Note Provider Note: [facility] ID Telephone Advice Consultation Chart reviewed. 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 She was readmitted on 01/29 with worsening shortness of breath requiring ICU and BiPAP. She was started on meropenem and on 02/01 she was transferred out of the unit with significant improvement in respiratory status. Blood cultures had Staphylococcus epidermidis and another CoNS. Urine culture positive for Pseudomonas and respiratory culture positive for Pseudomonas as well. CTA of chest demonstrated acute pulmonary embolism. She was started on Eliquis. She has been on meropenem, today is day 10. PMH: WPW syndrome PE COPD Hx pneumonia Hx UTIs PSH: Pacemaker Allergies: erythromycin base [Erythromycin Base] Allergy (Unknown, Verified 05/31/18 17:23) Medications: Acetazolamide [Diamox 250 mg Tab] 250 mg PO Q12 05/31/18 Alprazolam [Xanax 0.5 mg Tablet] 0.5 mg PO Q8HP PRN 05/31/18 Buspirone HCl [Buspar 15 mg Tablet] 7.5 mg PO Q8 05/31/18 Citalopram Hydrobromide [Celexa 40 mg Tablet] 40 mg PO DAILY 05/31/18 Montelukast Sodium [Singulair 10 mg Tablet] 10 mg PO QPM 05/31/18 Roflumilast [Daliresp 500 mcg Tablet] 500 mg PO QHS 05/31/18 Ropinirole HCl [Requip] 1 mg PO Q8 05/31/18 Zolpidem Tartrate [Ambien] 5 mg PO HSP PRN 05/31/18 Diltiazem HCl [Diltiazem 24Hr ER (Cd)] 180 mg PO Q12 08/09/18 Ranitidine HCl 150 mg PO BID 08/09/18 Levalbuterol Tartrate [Xopenex Hfa] 1 puff IH Q4HP PRN 01/29/19 Oxycodone HCl/Acetaminophen [Endocet 7.5-325 mg Tablet] 1 tab PO Q6HP PRN 01/29/19 Vital Signs: Temp Pulse Resp BP Pulse Ox 98.0 F 60 16 114/48 L 97 02/08/19 23:45 02/09/19 07:00 02/08/19 23:45 02/08/19 23:45 02/08/19 23:45 Intake & Output 02/08/19 02/09/19 02/10/19 06:59 06:59 06:59 Intake Total 150 50 Balance 150 50 Weight 44.7 kg 46 kg Weight/Height Weight 46 kg Height 5 ft 1 in Laboratories: 02/04/19 06:10 02/07/19 10:45 MCV 83 fl (80-97) 02/04/19 06:10 MCH 26.2 pg (27.0-33.4) L 02/04/19 06:10 MCHC 31.6 g/dL (32.0-36.0) L 02/04/19 06:10 RDW 18.9 % (11.5-14.0) H 02/04/19 06:10 Seg Neutrophils % 67.7 % (42-78) 02/04/19 06:10 Carbonic Acid 1.46 mmol/L (1.05-1.35) H 01/29/19 00:05 HCO3/H2CO3 Ratio 13:1 01/29/19 00:05 ABG pH 7.24 (7.35-7.45) L 01/29/19 00:05 ABG pCO2 48.6 mmHg (35-45) H 01/29/19 00:05 ABG pO2 100.1 mmHg (80-100) H 01/29/19 00:05 ABG HCO3 20.2 mmol/L (20-24) 01/29/19 00:05 ABG O2 Saturation 96.5 % (94-98) 01/29/19 00:05 ABG Base Excess -7.2 mmol/L 01/29/19 00:05 FiO2 3L 01/29/19 00:05 Chloride 98 mmol/L (98-107) 02/04/19 06:10 Carbon Dioxide 37 mmol/L (22-30) H 02/04/19 06:10 Anion Gap 4 (5-19) L 02/04/19 06:10 Est GFR ( Amer) > 60 (>60) 02/07/19 10:45 Glucose 84 mg/dL (75-110) 02/04/19 06:10 Calcium 9.0 mg/dL (8.4-10.2) 02/04/19 06:10 Phosphorus 4.7 mg/dL (2.5-4.5) H 01/29/19 00:15 Magnesium 3.4 mg/dL (1.6-2.3) H 01/29/19 00:15 Total Bilirubin 0.3 mg/dL (0.2-1.3) 02/04/19 06:10 AST 21 U/L (14-36) 02/04/19 06:10 Alkaline Phosphatase 71 U/L (38-126) 02/04/19 06:10 C-Reactive Protein 68.8 mg/L (<10.0) H 01/29/19 08:25 Total Protein 5.9 g/dL (6.3-8.2) L 02/04/19 06:10 Albumin 3.0 g/dL (3.5-5.0) L 02/04/19 06:10 Amylase 70 U/L (30-110) 01/29/19 08:25 Lipase 71.7 U/L (23-300) 01/29/19 08:25 Urine Color YELLOW 01/29/19 08:25 Urine Appearance CLEAR 01/29/19 08:25 Urine pH 5.0 (5.0-9.0) 01/29/19 08:25 Ur Specific [place] 1.023 01/29/19 08:25 Urine Protein NEGATIVE mg/dL (NEGATIVE) 01/29/19 08:25 Urine Glucose (UA) NEGATIVE mg/dL (NEGATIVE) 01/29/19 08:25 Urine Ketones NEGATIVE mg/dL (NEGATIVE) 01/29/19 08:25 Urine Blood NEGATIVE (NEGATIVE) 01/29/19 08:25 Urine Nitrite NEGATIVE (NEGATIVE) 01/29/19 08:25 Ur Leukocyte Esterase NEGATIVE (NEGATIVE) 01/29/19 08:25 Urine WBC (Auto) 4 /HPF 01/29/19 08:25 Urine RBC (Auto) 0 /HPF 01/29/19 08:25 01/29/19 00:15 Troponin I < 0.012 NT-Pro-B Natriuret Pep 492 H Microbiology: Blood culture 01/29 Staph epidermidis, CoNS 01/30 NGTD Resp culture 01/29 Pseudomonas aeruginosa Urine culture 01/29 Pseudomonas aeruginosa Radiology: Abdomen Ultrasound 01/29/19 00:00 IMPRESSION: Fatty liver. Echogenic kidneys, compatible with chronic medical renal disease. No evidence of cholelithiasis or acute cholecystitis. copyright 2010 [employer]- All Rights Reserved Abdomen/Pelvis CT 01/29/19 00:00 IMPRESSION: Positive for acute pulmonary embolism within the branches of the right lower lobe. No evidence of right heart strain. Consolidation along the dependent portion of the right lower lobe is likely due to atelectasis or pneumonia rather than pulmonary infarction. The above findings were discussed with and acknowledged by Dr. Escoto at 6:19 AM on 01/29/2019. Severe centrilobular emphysema with an enlarging left upper lobe mass which measures 5 mm, concerning for malignancy. No acute findings in the abdomen or pelvis. TECHNICAL DOCUMENTATION: Quality ID # [id number]: Final reports with documentation of one or more dose reduction techniques (e.g., Automated exposure control, adjustment of the mA and/or kV according to patient size, use of iterative reconstruction technique) copyright 2010 [employer]- All Rights Reserved Chest/Abdomen CTA 01/29/19 00:00 IMPRESSION: Positive for acute pulmonary embolism within the branches of the right lower lobe. No evidence of right heart strain. Consolidation along the dependent portion of the right lower lobe is likely due to atelectasis or pneumonia rather than pulmonary infarction. The above findings were discussed with and acknowledged by Dr. Escoto at 6:19 AM on 01/29/2019. Severe centrilobular emphysema with an enlarging left upper lobe mass which measures 5 mm, concerning for malignancy. No acute findings in the abdomen or pelvis. TECHNICAL DOCUMENTATION: Quality ID # [id number]: Final reports with documentation of one or more dose reduction techniques (e.g., Automated exposure control, adjustment of the mA and/or kV according to patient size, use of iterative reconstruction technique) copyright 2010 [employer]- All Rights Reserved Venous Doppler Study 01/29/19 00:00 IMPRESSION: NO EVIDENCE DVT OR SVT IN EITHER LEG. Chest X-Ray 01/29/19 00:55 IMPRESSION: Stable examination when compared with January 17, 2019 with redemonstration of findings compatible with chronic obstructive pulmonary process. Assessment and Recommendations: Patient with severe COPD admitted with respiratory failure, found with acute pul monary embolism. Respiratory culture positive for Pseudomonas. There was a consolidation noted, possible atelectasis. Due to her severe emphysema, she is probably colonized with this Pseudomonas aeruginosa. This bacteria is becoming resistant to multiple antibiotics as she has received therapy for possible pneumonias vs COPD exacerbation. There is high risk for this to become a MDRO, therefore should be very careful when choosing to treat this bacteria from respiratory cultures. She has completed 10 days of meropenem, can discontinue. In terms of blood culture results, she has a pacemaker and a port. She is at risk of true CoNS infection, however her repeat blood cultures are negative. If concerns of true CoNS bacteremia, can repeat blood cultures off antibiotics, as outpatient and if persistent growth, then concerns for true infection. Otherwise, no further recommendations as there were 2 different species of CoNS. Please call if any questions. [place] Davalos MD [facility] ID [phone]
[2019-02-09] MEDS: FAMOTIDINE 20 MG TABLET PO SCH (09:11)
[2019-02-09] MEDS: MULTIVITAMINS W-IRON TABLET, CHEWABLE PO SCH (09:11)
[2019-02-09] MEDS: CITALOPRAM HYDROBROMIDE 20 MG TABLET PO SCH (09:11)
[2019-02-09] MEDS: APIXABAN 5 MG TABLET PO SCH (09:11)
[2019-02-09] MEDS: DILTIAZEM HCL 180 MG CAPSULE.CR PO SCH (09:12)
[2019-02-09] MEDS: CYPROHEPTADINE HCL 4 MG TABLET PO SCH (09:12)
[2019-02-09] MEDS: ROFLUMILAST 500 MCG TABLET PO SCH (09:12)
[2019-02-09] MEDS: NYSTATIN TOPICAL POWDER 15 GM TP SCH (09:14)
--- NOTE | 2019-02-09 11:00 | PDOC DISCHARGE SUMMARY ---
Impression - Admit/DC Date/PCP Admission Date/Primary Care Provider: 01/29/19 04:29 SARITA CASTILLO Discharge Date: 02/09/19 - Discharge Diagnosis (1) COPD exacerbation Is this a current diagnosis for this admission?: Yes (2) Pulmonary embolism Is this a current diagnosis for this admission?: Yes (3) Pneumonia due to Pseudomonas aeruginosa Is this a current diagnosis for this admission?: Yes (4) Cystitis due to Pseudomonas Is this a current diagnosis for this admission?: Yes (5) Staphylococcus epidermidis bacteremia Is this a current diagnosis for this admission?: Yes (6) HTN (hypertension) Is this a current diagnosis for this admission?: Yes (7) HLD (hyperlipidemia) Is this a current diagnosis for this admission?: Yes (8) Persistent insomnia Is this a current diagnosis for this admission?: Yes (9) Mixed anxiety and depressive disorder Is this a current diagnosis for this admission?: Yes - Assessment Summary: Patient was admitted to ICU due to acute decompensation on chronic respiratory failure. She demonstrated right lower lobe acute pulmonary embolism. She was adequately managed and eventually downgraded to medical telemetry floor. She received adequate antibiotic coverage with IV Vancomycin and Meropenem for 8 and 10 days respectively due to staphy. epidermidis bacteremia and psuedomonas aeruginosa growth in sputum and urine culture respectively. She was supported respiratory jeff with BiPAP and has been off such support for several days. She is currently at baseline chronic respiratory failure from end stage COPD on supplemental oxygen. She will be discharge home today and followup in the office as instructed. - Additional Information Resuscitation Status: Full Code Discharge Diet: As Tolerated Discharge Activity: Activity As Tolerated, Slowly Increase Activity Referrals: SARITA CASTILLO MD [Primary Care Provider] - 02/20/19 10:00 am Prescriptions: Apixaban [Eliquis 5 mg Tablet] 5 mg PO BID #60 tablet Multivitamins W-Iron [Flintstones Chewable Multivit W/Fe Tab] 1 tab PO DAILY #30 tab.chew Nystatin [Mycostatin Topical Powder 15 gm] 1 applic TP Q12 #1 bottle Cyproheptadine HCl [Periactin 4 mg Tablet] 4 mg PO BID #60 tablet Home Medications: Acetazolamide [Diamox 250 mg Tab] 250 mg PO Q12 05/31/18 Alprazolam [Xanax 0.5 mg Tablet] 0.5 mg PO Q8HP PRN 05/31/18 Buspirone HCl [Buspar 15 mg Tablet] 7.5 mg PO Q8 05/31/18 Citalopram Hydrobromide [Celexa 40 mg Tablet] 40 mg PO DAILY 05/31/18 Montelukast Sodium [Singulair 10 mg Tablet] 10 mg PO QPM 05/31/18 Roflumilast [Daliresp 500 mcg Tablet] 500 mg PO QHS 05/31/18 Ropinirole HCl [Requip] 1 mg PO Q8 05/31/18 Zolpidem Tartrate [Ambien] 5 mg PO HSP PRN 05/31/18 Diltiazem HCl [Diltiazem 24Hr ER (Cd)] 180 mg PO Q12 08/09/18 Ranitidine HCl 150 mg PO BID 08/09/18 Levalbuterol Tartrate [Xopenex Hfa] 1 puff IH Q4HP PRN 01/29/19 Oxycodone HCl/Acetaminophen [Endocet 7.5-325 mg Tablet] 1 tab PO Q6HP PRN 01/29/19 Apixaban [Eliquis 5 mg Tablet] 5 mg PO BID #60 tablet 02/09/19 Cyproheptadine HCl [Periactin 4 mg Tablet] 4 mg PO BID #60 tablet 02/09/19 Multivitamins W-Iron [Flintstones Chewable Multivit W/Fe Tab] 1 tab PO DAILY #30 tab.chew 02/09/19 Nystatin [Mycostatin Topical Powder 15 gm] 1 applic TP Q12 #1 bottle 02/09/19 History of Present Illiness History of Present Illness: SUSAN MITCHELL is a 78 year old female Mrs. Mitchell is a 78-year-old female with history of Zhjov-Vbijmhgpe-Xqjza syndrome status post pacemaker, COPD with chronic bronchitis, multiple pneumonias and urinary tract infections with the most recent pneumonia on 01/17/2019 due to Pseudomonas who presented with increasing shortness of breath over the past couple days, increasing cough from baseline with more sputum production that remains a yellowish baseline color, and weakness. To note, patient is on 3 L home O2 alternating BiPAP off and on throughout the day as needed. Per the ED physician, EMS provided magnesium, nebs, Solu-Medrol in route with no improvement. Patient SPO2 93% on room air in the ED with tachypnea respiratory rate 40s and was placed on BiPAP to assist with work of breathing. Upon my evaluation, patient continued to have mild scalene accessory muscle use with RR upper 30s to low 40s after having been on BiPAP for at least 15 minutes. Patient also endorses generalized abdominal pain for which there is no guarding, rigidity, or rebound tenderness, although there is a ventral hernia that is easily reducible. Patient also experiencing urinary frequency and dysuria for which she is having difficulty voiding and intermittently "trickles" on herself. Patient will be admitted to ICU for respiratory failure and further workup. History obtained from: patient, daughters, ED physician, medical record Hospital Course Hospital Course: Patient was admitted to ICU due to acute decompensation on chronic respiratory failure. She demonstrated right lower lobe acute pulmonary embolism. She was adequately managed and eventually downgraded to medical telemetry floor. She received adequate antibiotic coverage with IV Vancomycin and Meropenem for 8 and 10 days respectively due to staphy. epidermidis bacteremia and psuedomonas aeruginosa growth in sputum and urine culture respectively. She was supported respiratory jeff with BiPAP and has been off such support for several days. She is currently at baseline chronic respiratory failure from end stage COPD on supplemental oxygen. She will be discharge home today and followup in the office as instructed. Physical Exam Vital Signs: Temp Pulse Resp BP Pulse Ox 97.8 F 99 18 101/55 L 94 02/09/19 07:25 02/09/19 10:33 02/09/19 10:33 02/09/19 07:25 02/09/19 10:33 Intake & Output 02/08/19 02/09/19 02/10/19 06:59 06:59 06:59 Intake Total 150 50 Balance 150 50 Weight 44.7 kg 46 kg General appearance: PRESENT: mild distress - on supplemental oxygen via nasal cannula, thin Head exam: PRESENT: atraumatic, normocephalic Ear exam: PRESENT: normal external ear exam Eye exam: PRESENT: Conjunctiva pink ABSENT: pallor, sclera icterus Mouth exam: PRESENT: moist Respiratory exam: PRESENT: minimal scattered crackles, end expiratory rhonchi Cardiovascular exam: PRESENT: RRR. ABSENT: diastolic murmur, rubs, systolic murmur Extremities exam: ABSENT: pedal edema Neurological exam: PRESENT: alert, awake, oriented to person, oriented to place, oriented to time, oriented to situation, CN II-XII grossly intact. ABSENT: motor sensory deficit Psychiatric exam: PRESENT: appropriate affect, normal mood. ABSENT: homicidal ideation, suicidal ideation Skin exam: PRESENT: dry, warm, other - port-a-cath on anterior chest wall dressing is satisfactory. Results Laboratory Results: WBC 13.1 10^3/uL (4.0-10.5) H 02/04/19 06:10 RBC 4.24 10^6/uL (3.72-5.28) 02/04/19 06:10 Hgb 11.1 g/dL (12.0-15.5) L 02/04/19 06:10 Hct 35.1 % (36.0-47.0) L 02/04/19 06:10 MCV 83 fl (80-97) 02/04/19 06:10 MCH 26.2 pg (27.0-33.4) L 02/04/19 06:10 MCHC 31.6 g/dL (32.0-36.0) L 02/04/19 06:10 RDW 18.9 % (11.5-14.0) H 02/04/19 06:10 Plt Count 434 10^3/uL (150-450) 02/04/19 06:10 Lymph % (Auto) 19.6 % (13-45) 02/04/19 06:10 Brooks % (Auto) 8.2 % (3-13) 02/04/19 06:10 Eos % (Auto) 3.9 % (0-6) 02/04/19 06:10 Baso % (Auto) 0.6 % (0-2) 02/04/19 06:10 Absolute Neuts (auto) 8.9 10^3/uL (1.7-8.2) H 02/04/19 06:10 Absolute Lymphs (auto) 2.6 10^3/uL (0.5-4.7) 02/04/19 06:10 Absolute Monos (auto) 1.1 10^3/uL (0.1-1.4) 02/04/19 06:10 Absolute Eos (auto) 0.5 10^3/uL (0.0-0.6) 02/04/19 06:10 Absolute Basos (auto) 0.1 10^3/uL (0.0-0.2) 02/04/19 06:10 Total Counted 100 01/30/19 03:00 Seg Neutrophils % 67.7 % (42-78) 02/04/19 06:10 Seg Neuts % (Manual) 95 % (42-78) H 01/30/19 03:00 Lymphocytes % (Manual) 4 % (13-45) L 01/30/19 03:00 Monocytes % (Manual) 1 % (3-13) L 01/30/19 03:00 Eosinophils % (Manual) 0 % (0-6) 01/30/19 03:00 Basophils % (Manual) 0 % (0-2) 01/30/19 03:00 Abs Neuts (Manual) 33.0 10^3/uL (1.7-8.2) H 01/30/19 03:00 Abs Lymphs (Manual) 1.4 10^3/uL (0.5-4.7) 01/30/19 03:00 Abs Monocytes (Manual) 0.3 10^3/uL (0.1-1.4) 01/30/19 03:00 Absolute Eos (Manual) 0.0 10^3/uL (0.0-0.6) 01/30/19 03:00 Abs Basophils (Manual) 0.0 10^3/uL (0.0-0.2) 01/30/19 03:00 Hypersegmented Neuts PRESENT 01/29/19 08:25 Toxic Granulation 1+ 01/30/19 03:00 Platelet Comment ADEQUATE 01/30/19 03:00 Polychromasia SLIGHT 01/30/19 03:00 Hypochromasia SLIGHT 01/30/19 03:00 Poikilocytosis SLIGHT 01/30/19 03:00 Anisocytosis 1+ 01/30/19 03:00 Ovalocytes SLIGHT 01/30/19 03:00 Frank Cells SLIGHT 01/30/19 03:00 Schistocytes SLIGHT 01/30/19 03:00 ESR 40 mm/hr (0-30) H 01/29/19 08:25 PT 14.0 SEC (11.4-15.4) 01/29/19 08:25 INR 1.08 01/29/19 08:25 APTT 27.0 SEC (23.5-35.8) 02/01/19 05:10 Carbonic Acid 1.46 mmol/L (1.05-1.35) H 01/29/19 00:05 HCO3/H2CO3 Ratio 13:1 01/29/19 00:05 ABG pH 7.24 (7.35-7.45) L 01/29/19 00:05 ABG pCO2 48.6 mmHg (35-45) H 01/29/19 00:05 ABG pO2 100.1 mmHg (80-100) H 01/29/19 00:05 ABG HCO3 20.2 mmol/L (20-24) 01/29/19 00:05 ABG Total CO2 21.7 mmol/L (21-25) 01/29/19 00:05 ABG O2 Saturation 96.5 % (94-98) 01/29/19 00:05 ABG Base Excess -7.2 mmol/L 01/29/19 00:05 FiO2 3L 01/29/19 00:05 Sodium 138.6 mmol/L (137-145) 02/04/19 06:10 Potassium 4.4 mmol/L (3.6-5.0) 02/04/19 06:10 Chloride 98 mmol/L (98-107) 02/04/19 06:10 Carbon Dioxide 37 mmol/L (22-30) H 02/04/19 06:10 Anion Gap 4 (5-19) L 02/04/19 06:10 BUN 20 mg/dL (7-20) 02/04/19 06:10 Creatinine 0.94 mg/dL (0.52-1.25) 02/07/19 10:45 Est GFR ( Amer) > 60 (>60) 02/07/19 10:45 Est GFR (MDRD) Non-Af 58 (>60) L 02/07/19 10:45 Glucose 84 mg/dL (75-110) 02/04/19 06:10 POC Glucose 111 mg/dL (70-110) H 01/30/19 12:04 Lactic Acid (Sepsis) 1.4 mmol/L (0.7-2.1) 01/29/19 00:15 Calcium 9.0 mg/dL (8.4-10.2) 02/04/19 06:10 Phosphorus 4.7 mg/dL (2.5-4.5) H 01/29/19 00:15 Magnesium 3.4 mg/dL (1.6-2.3) H 01/29/19 00:15 Total Bilirubin 0.3 mg/dL (0.2-1.3) 02/04/19 06:10 Direct Bilirubin 0.1 mg/dL (0.0-0.4) 02/04/19 06:10 Neonat Total Bilirubin Not Reportable 02/04/19 06:10 Neonat Direct Bilirubin Not Reportable 02/04/19 06:10 Neonat Indirect Bili Not Reportable 02/04/19 06:10 AST 21 U/L (14-36) 02/04/19 06:10 ALT 14 U/L (<35) 02/04/19 06:10 Alkaline Phosphatase 71 U/L (38-126) 02/04/19 06:10 Troponin I < 0.012 ng/mL 01/29/19 00:15 C-Reactive Protein 68.8 mg/L (<10.0) H 01/29/19 08:25 NT-Pro-B Natriuret Pep 492 pg/mL (<450) H 01/29/19 00:15 Total Protein 5.9 g/dL (6.3-8.2) L 02/04/19 06:10 Albumin 3.0 g/dL (3.5-5.0) L 02/04/19 06:10 Amylase 70 U/L (30-110) 01/29/19 08:25 Lipase 71.7 U/L (23-300) 01/29/19 08:25 Urine Color YELLOW 01/29/19 08:25 Urine Appearance CLEAR 01/29/19 08:25 Urine pH 5.0 (5.0-9.0) 01/29/19 08:25 Ur Specific Amity 1.023 01/29/19 08:25 Urine Protein NEGATIVE mg/dL (NEGATIVE) 01/29/19 08:25 Urine Glucose (UA) NEGATIVE mg/dL (NEGATIVE) 01/29/19 08:25 Urine Ketones NEGATIVE mg/dL (NEGATIVE) 01/29/19 08:25 Urine Blood NEGATIVE (NEGATIVE) 01/29/19 08:25 Urine Nitrite NEGATIVE (NEGATIVE) 01/29/19 08:25 Urine Bilirubin NEGATIVE (NEGATIVE) 01/29/19 08:25 Urine Urobilinogen NEGATIVE mg/dL (<2.0) 01/29/19 08:25 Ur Leukocyte Esterase NEGATIVE (NEGATIVE) 01/29/19 08:25 Urine WBC (Auto) 4 /HPF 01/29/19 08:25 Urine RBC (Auto) 0 /HPF 01/29/19 08:25 U Hyaline Cast (Auto) 1 /LPF 01/29/19 05:34 Squamous Epi Cells Auto <1 /HPF 01/29/19 08:25 Urine Mucus (Auto) RARE /LPF 01/29/19 08:25 Urine Ascorbic Acid NEGATIVE (NEGATIVE) 01/29/19 08:25 Time Trough Drawn 1045 02/07/19 10:45 Vancomycin Trough 17.1 ug/mL (5.0-20.0) 02/07/19 10:45 c-ANCA Antibody Comment titer (Neg:<1:20) 01/29/19 08:25 Anti-Proteinase 3 Intrp <3.5 U/mL (0.0-3.5) 01/29/19 08:25 Atypical p-ANCA <1:20 titer (Neg:<1:20) 01/29/19 08:25 p-ANCA Antibody <1:20 titer (Neg:<1:20) 01/29/19 08:25 Myeloperoxidase Ab <9.0 U/mL (0.0-9.0) 01/29/19 08:25 Influenza A (Rapid) NEGATIVE (NEGATIVE) 01/29/19 15:20 Influenza B (Rapid) NEGATIVE (NEGATIVE) 01/29/19 15:20 Slides for Path Review PATHOLOGIST REVIEWED 01/30/19 03:00 01/29/19 00:15 Troponin I < 0.012 NT-Pro-B Natriuret Pep 492 H Impressions: Abdomen Ultrasound 01/29/19 00:00 IMPRESSION: Fatty liver. Echogenic kidneys, compatible with chronic medical renal disease. No evidence of cholelithiasis or acute cholecystitis. copyright 2010 [employer]- All Rights Reserved Abdomen/Pelvis CT 01/29/19 00:00 IMPRESSION: Positive for acute pulmonary embolism within the branches of the right lower lobe. No evidence of right heart strain. Consolidation along the dependent portion of the right lower lobe is likely due to atelectasis or pneumonia rather than pulmonary infarction. The above findings were discussed with and acknowledged by Dr. Escoto at 6:19 AM on 01/29/2019. Severe centrilobular emphysema with an enlarging left upper lobe mass which measures 5 mm, concerning for malignancy. No acute findings in the abdomen or pelvis. TECHNICAL DOCUMENTATION: Quality ID # 436: Final reports with documentation of one or more dose reduction techniques (e.g., Automated exposure control, adjustment of the mA and/or kV according to patient size, use of iterative reconstruction technique) copyright 2010 [employer]- All Rights Reserved Chest/Abdomen CTA 01/29/19 00:00 IMPRESSION: Positive for acute pulmonary embolism within the branches of the right lower lobe. No evidence of right heart strain. Consolidation along the dependent portion of the right lower lobe is likely due to atelectasis or pneumonia rather than pulmonary infarction. The above findings were discussed with and acknowledged by Dr. Escoto at 6:19 AM on 01/29/2019. Severe centrilobular emphysema with an enlarging left upper lobe mass which measures 5 mm, concerning for malignancy. No acute findings in the abdomen or pelvis. TECHNICAL DOCUMENTATION: Quality ID # 436: Final reports with documentation of one or more dose reduction techniques (e.g., Automated exposure control, adjustment of the mA and/or kV according to patient size, use of iterative reconstruction technique) copyright 2010 [employer]- All Rights Reserved Venous Doppler Study 01/29/19 00:00 IMPRESSION: NO EVIDENCE DVT OR SVT IN EITHER LEG. Chest X-Ray 01/29/19 00:55 IMPRESSION: Stable examination when compared with January 17, 2019 with redemonstration of findings compatible with chronic obstructive pulmonary process. Plan Health Concerns: High readmission risk due to her end stage COPD oxygen dependent status. Plan of Treatment: Maintain on preadmission medication management. Goals: Maintain on preadmission medication management. Time Spent: Greater than 30 Minutes - counseling was done on medicationa nd lifestyle adjustment to decrease readmission risk. Stroke Is this a Stroke Patient?: No Acute Heart Failure - Is this a Heart Failure Patient?: No
[2019-02-09 12:58] VITALS: BP 115/48
== END 2019-02-09 13:00 | disposition home health service (06) | DRG 189 ==
LOC: ER 23:58 → EH 01-29 04:29 → ICU 01-29 05:21 → 4S 01-31 13:45
PROVIDERS: ADMIT Internal Medicine Geriatric Medicine; ATTEND Internal Medicine Geriatric Medicine
PROC: 5A09457 Assistance with Respiratory Ventilation, 24-96 Consecutive Hours, Continuous Positive Airway Pressure (ICD-10-PCS; principal; 2019-01-29)
DX: J96.02 Acute respiratory failure with hypercapnia (principal); I26.99 Other pulmonary embolism without acute cor pulmonale; J15.1 Pneumonia due to Pseudomonas; J44.1 Chronic obstructive pulmonary disease with (acute) exacerbation; E87.2 Acidosis; E44.0 Moderate protein-calorie malnutrition; Z68.1 Body mass index [BMI] 19.9 or less, adult; N39.0 Urinary tract infection, site not specified; R65.10 Systemic inflammatory response syndrome (SIRS) of non-infectious origin without acute organ dysfunction; J96.22 Acute and chronic respiratory failure with hypercapnia; E87.8 Other disorders of electrolyte and fluid balance, not elsewhere classified; K21.9 Gastro-esophageal reflux disease without esophagitis; E78.00 Pure hypercholesterolemia, unspecified; I45.6 Pre-excitation syndrome; E87.6 Hypokalemia; I10 Essential (primary) hypertension; R33.9 Retention of urine, unspecified; F41.8 Other specified anxiety disorders; G47.09 Other insomnia; B96.5 Pseudomonas (aeruginosa) (mallei) (pseudomallei) as the cause of diseases classified elsewhere; Z96.642 Presence of left artificial hip joint; Z95.0 Presence of cardiac pacemaker
CPT/HCPCS: 36415; 51702; 71045; 71275; 74177; 76700; 80048; 80053; 80202; 81001; 82150; 82565; 82803; 82962; 83516; 83605; 83690; 83735; 83880; 84100; 84484; 85025; 85610; 85652; 85730; 86140; 86256; 87040; 87070; 87077; 87086; 87088; 87150; 87186; 87205; 87804; 93005; 93010; 93970; 94660; 96360; 96361; 99233; 99291; J1642; J1644; J1940; J2185; J2920; J3370; J3480; J3490; J7030; J7060; J7120; J7620; S0028

== ENCOUNTER → 2019-04-23 | Outpatient (CLI) | payer MEDICARE, OTHER ==
--- NOTE | 2019-04-23 10:22 | RADIOLOGY REPORT (SQ) ---
EXAM DESCRIPTION: CHEST PA/LATERAL COMPLETED DATE/TIME: 04/23/2019 10:08 am REASON FOR STUDY: CHRONIC OBSTRUCTIVE PULMONARY DISEASE, UNSPECIFIED COMPARISON: 01/29/2019 EXAM PARAMETERS: NUMBER OF VIEWS: two views TECHNIQUE: Digital Frontal and Lateral radiographic views of the chest acquired. RADIATION DOSE: NA LIMITATIONS: none FINDINGS: LUNGS AND PLEURA: Persistent hyperexpansion. There chronic bilateral pleural and parenchy mal changes. Blunting of the costophrenic angles most likely pleural thickening. No focal consolida tion. MEDIASTINUM AND HILAR STRUCTURES: No masses or contour abnormalities. HEART AND VASCULAR STRUCTURES: Heart size is stable with prominent pulmonary arteries. No obvious ov ert failure. BONES: Stable wedge deformity in the lower dorsal spine. HARDWARE: None in the chest. OTHER: No other significant finding. IMPRESSION: COPD with chronic bilateral pleural and parenchymal changes. No significant interval ch luiz allowing for differences in technique. TECHNICAL DOCUMENTATION: JOB ID: [id number] 2010 [employer]- All Rights Reserved Reading location - IP/workstation name: [email or web address]
== END ==
LOC: RAD 09:46
PROVIDERS: ATTEND Internal Medicine Geriatric Medicine
DX: J44.9 Chronic obstructive pulmonary disease, unspecified (principal)
CPT/HCPCS: 71046

== ENCOUNTER 2019-05-31 15:39 | Inpatient (IN) | payer MEDICARE, OTHER ==
[2019-05-31 17:18] LABS: HEMATOCRIT 31.8 % (36.0-47.0); HEMOGLOBIN 9.3 g/dL (12.0-15.5); MEAN CORPUSCULAR HEMOGLOBIN 23.9 pg (27.0-33.4); MEAN CORPUSCULAR HGB CONC 29.2 g/dL (32.0-36.0); MEAN CORPUSCULAR VOLUME 82 fl (80-97); PLATELET COUNT 327 10^3/uL (150-450); RED BLOOD COUNT 3.89 10^6/uL (3.72-5.28); RED CELL DISTRIBUTION WIDTH 19.3 % (11.5-14.0)
[2019-05-31 17:25] LABS: A TYPE INFLUENZA AG NEGATIVE (NEGATIVE); B INFLUENZA AG NEGATIVE (NEGATIVE)
[2019-05-31 17:26] LABS: ALBUMIN 3.8 g/dL (3.5-5.0); ALKALINE PHOSPHATASE 97 U/L (38-126); ANION GAP 7 (5-19); ASPARTATE AMINO TRANSFERASE 21 U/L (14-36); BILIRUBIN,TOTAL 0.2 mg/dL (0.2-1.3); BLOOD UREA NITROGEN 18 mg/dL (7-20); CALCIUM 8.9 mg/dL (8.4-10.2); CARBON DIOXIDE 27 mmol/L (22-30); CHLORIDE 100 mmol/L (98-107); GLUCOSE 165 mg/dL (75-110); POTASSIUM 4.1 mmol/L (3.6-5.0); TOTAL PROTEIN 7.3 g/dL (6.3-8.2)
[2019-05-31 17:34] LABS: AMORPHOUS SEDIMENT,URINE TRACE /HPF; APPEARANCE,URINE CLOUDY; BILIRUBIN,URINE NEGATIVE (NEGATIVE); COLOR,URINE YELLOW; GLUCOSE, URINE NEGATIVE (NEGATIVE); KETONES,URINE NEGATIVE (NEGATIVE); LEUKOCYTE ESTERASE,URINE NEGATIVE (NEGATIVE); NITRITE,URINE NEGATIVE (NEGATIVE); PROTEIN,URINE 30 mg/dL (NEGATIVE); URINE SPECIFIC GRAVITY 1.016; UROBILINOGEN,URINE NEGATIVE mg/dL (<2.0)
[2019-05-31 17:39] LABS: ABSOLUTE LYMPHOCYTES# (MANUAL) 2.4 10^3/uL (0.5-4.7); ABSOLUTE MONOCYTES # (MANUAL) 2.1 10^3/uL (0.1-1.4); ANISOCYTOSIS 2+; BAND NEUTROPHILS % (MANUAL) 3 % (3-5); BASOPHILS % (MANUAL) 0 % (0-2); EOSINOPHILS % (MANUAL) 0 % (0-6); LYMPHOCYTES % (MANUAL) 7 % (13-45); MONOCYTES % (MANUAL) 7 % (3-13); PLATELET COMMENT ADEQUATE; SEGMENTED NEUTROPHILS % (MAN) 82 % (42-78); TOTAL CELLS COUNTED 100
[2019-05-31 17:45] LABS: WHITE BLOOD COUNT 30.6 10^3/uL (4.0-10.5)
--- NOTE | 2019-05-31 18:01 | RADIOLOGY REPORT (SQ) ---
EXAM DESCRIPTION: CHEST SINGLE VIEW IMAGES COMPLETED DATE/TIME: 05/31/2019 5:43 pm REASON FOR STUDY: SOB COMPARISON: CT chest 01/29/2019 Chest films 04/13/2019, 01/29/2019, 08/15/2018 EXAM PARAMETERS: NUMBER OF VIEWS: One view. TECHNIQUE: Single frontal radiographic view of the chest acquired. RADIATION DOSE: NA LIMITATIONS: None. FINDINGS: LUNGS AND PLEURA: Chronic scarring in the right upper lobe and both lung bases. No acute infiltrates. No pleural effusion. No pneumothorax. Upper lobes hyperlucent from obstructive disease MEDIASTINUM AND HILAR STRUCTURES: No masses. Prominent central pulmonary arteries worrisome for pulm onary hypertension. HEART AND VASCULAR STRUCTURES: No cardiomegaly. Prominent central pulmonary arteries worrisome for p ulmonary hypertension BONES: No acute findings. HARDWARE: Right-sided permanent central line tip superior vena cava. Left-sided pacemaker OTHER: No other significant finding. IMPRESSION: Obstructive lung disease with lung parenchymal scarring at the right upper lobe and both bases. No acute findings TECHNICAL DOCUMENTATION: JOB ID: [id number] [employer]- All Rights Reserved Reading location - IP/workstation name: [email or web address]
[2019-05-31] MEDS ORDERED: OXYCODONE HCL IR 5 MG TABLET PO ONE (18:18)
[2019-05-31] MEDS ORDERED: NORMAL SALINE 1000 ML 1,000 ML IV ONE (18:28)
[2019-05-31] MEDS ORDERED: ALBUTEROL SULFATE HFA (90 MCG/PUFF) 8 GM MDI IH ONE (18:32)
[2019-05-31] MEDS: ALBUTEROL SULFATE HFA (90 MCG/PUFF) 8 GM MDI (1 MDI/ER DISP) IH ONE ×2 (18:40→18:47)
[2019-05-31] MEDS ORDERED: NORMAL SALINE IV ONE (19:31)
--- NOTE | 2019-05-31 19:47 | ER Document Report ---
ED General - General Chief Complaint: Shortness Of Breath Stated Complaint: SHORTNESS OF BREATH Time Seen by Provider: 05/31/19 17:28 Primary Care Provider: SARITA CASTILLO MD [Primary Care Provider] - Follow up as needed Notes: 78-year-old female who presents emergency department via EMS after receiving an albuterol and Atrovent treatment as well as 125 mg of Solu-Medrol complaining of increasing shortness of breath, chest tightness, fevers and increasing sputum production for the past several days to possibly a week. Denies any known COVID exposure however she did attend the of her son who was recently hospitalized within the past week. Patient additionally complains of pain from her restless leg syndrome. States that she has not taken any of her pain medication for it yet today. TRAVEL OUTSIDE OF THE [place] IN LAST 30 DAYS: No - Related Data Allergies/Adverse Reactions: erythromycin base [Erythromycin Base] Allergy (Unknown, Verified 05/31/19 17:10) Past Medical History - General Information source: Patient, Relative - Social History Smoking Status: Former Smoker Chew tobacco use (# tins/day): No Frequency of alcohol use: None Drug Abuse: None Family History: CAD, DM, Hyperlipidemia, Hypertension Patient has suicidal ideation: No Patient has homicidal ideation: No - Past Medical History Cardiac Medical History: Reports: Hx Hypercholesterolemia, Hx Hypertension, Hx Pulmonary Embolism Denies: Hx Atrial Fibrillation, Hx Congestive Heart Failure, Hx Coronary Artery Disease, Hx Heart Attack Pulmonary Medical History: Reports: Hx Asthma, Hx Bronchitis, Hx COPD, Hx Pneumonia, Hx Respiratory Failure, Hx Sleep Apnea Neurological Medical History: Denies: Hx Cerebrovascular Accident, Hx Seizures, Hx Parkinson's Disease Endocrine Medical History: Denies: Hx Graves' Disease, Hx Hyperthyroidism, Hx Hypothyroidism Renal/ Medical History: Reports: Hx Kidney Stones - 20 year ago. Denies: Hx Ovarian Cysts, Hx Peritoneal Dialysis, Hx Pelvic Inflammatory Disease Malignancy Medical History: GI Medical History: Reports: Hx Diverticulitis, Hx Gastroesophageal Reflux Disease - Hx ulcer, doesn't know if gastric or duodenal in nature, Hx Ulcer. Denies: Hx Irritable Bowel, Hx Liver Failure, Hx Pancreatitis Musculoskeletal Medical History: Reports Hx Arthritis, Denies Hx Fibromyalgia, Denies Hx Gout, Denies Hx Multiple Sclerosis, Denies Hx Muscular Dystrophy, Denies Hx Systemic Lupus Erythematosus Skin Medical History: Denies Hx Eczema, Reports Hx MRSA, Denies Hx Psoriasis Psychiatric Medical History: Reports: Hx Depression Denies: Hx Schizophrenia Traumatic Medical History: Denies: Hx Fractures, Hx Gunshot Wound Infectious Medical History: Reports: Hx C-Diff - successfully treated with antibiotics, Hx MRSA - patient uncertain however it is on her hospital problem list from past. Denies: Hx HIV Past Surgical History: Reports: Hx Bowel Surgery - Old colostomy from a tear intestines resectioned, Hx Cardiac Surgery - pacemaker, Hx Colostomy - from perf diverticulitis s/p colstomy reversal 6 years ago, Hx Hysterectomy, Hx Orthopedic Surgery - left hip replacement 11/04/2014, RIGHT KNEE CYST REMOVAL, Hx Pacemaker - for [id number]-[id number]-[id number] syndrome - Immunizations Immunizations up to date: Yes Hx Diphtheria, Pertussis, Tetanus Vaccination: No Hx Pneumococcal Vaccination: 06/04/11 Review of Systems - Review of Systems Constitutional: Fever, Malaise, Weakness EENT: No symptoms reported Cardiovascular: See HPI, Chest pain Respiratory: Cough, Short of breath Gastrointestinal: No symptoms reported Musculoskeletal: See HPI - restless leg syndrome -: Yes All other systems reviewed and negative Physical Exam - Vital signs Vitals: Resp Pulse Ox 25 H 98 05/31/19 15:45 05/31/19 15:45 Interpretation: Tachypneic - Notes Notes: GENERAL: Alert, interacts well. No acute distress. HEAD: Normocephalic, atraumatic EYES: Pupils equal, round and reactive to light, extraocular movements intact. ENT: Oral mucosa moist, tongue midline. NECK: Full range of motion, supple, trachea midline. LUNGS: Tachypneic, diffuse expiratory wheezing, appears acutely short of breath, wet cough, speaks in 3-4 word sentences. HEART: mildly tachycardic rate and normal rhythm, no murmurs, gallops, rubs. ABDOMEN: Soft, nontender, nondistended, bowel sounds present in all 4 quadrants. EXTREMITIES: Moves all 4 extremities spontaneously, no edema, radial and dorsalis pedis pulses 2/4 bilaterally. No cyanosis. NEUROLOGICAL: Alert and oriented x3, normal speech, biceps and patellar DTRs 2+ bilaterally. PSYCH: Normal mood, normal affect. SKIN: Warm, Dry, normal turgor, no rashes or lesions noted. Course - Re-evaluation Re-evalutation: 05/31/19 20:20 CBC shows leukocytosis at 13.6, she has been even higher than this in the past, there is a stable anemia with a hemoglobin of 9.3. Somewhat lower than the past but not significantly lower, chemistries grossly unremarkable, troponin negative, urinalysis unremarkable, flu a and B are negative, strep is negative, chest x-ray shows scarring but no infiltrates. COVID testing is pending. Patient was given 6 puffs on an albuterol inhaler with spacer, patient's wheezing has improved but not completely resolved, patient remains tachypneic, when I have her walk to and from the door which is at most 15 feet she becomes quite tachypneic and her respiratory rate is 38, tachycardic to the 120s. Patient takes approximately 10 minutes to recover. Daughter states that this is the distance she would normally have to walk at home to get to and from her bed to her bathroom etc. Discussed case with Dr. Castillo who agrees to admit the patient to his service on the [facility] for a COPD flare. Given the patient's fever and her leukocytosis patient will also be started on Levaquin. - Vital Signs Vital signs: Temp Pulse Resp BP Pulse Ox 100.5 F H 23 H 101/48 L 99 05/31/19 16:46 05/31/19 19:01 05/31/19 19:01 05/31/19 19:01 - Laboratory Result Diagrams: 05/31/19 16:05 05/31/19 16:05 Laboratory results interpreted by me: 05/31/19 05/31/19 05/31/19 16:05 16:05 16:05 WBC 30.6 H* Hgb 9.3 L Hct 31.8 L MCH 23.9 L MCHC 29.2 L RDW 19.3 H Seg Neuts % (Manual) 82 H Lymphocytes % (Manual) 7 L Abs Neuts (Manual) 26.0 H Abs Monocytes (Manual) 2.1 H Sodium 134.3 L Est GFR ( Amer) 53 L Est GFR (MDRD) Non-Af 44 L Glucose 165 H Urine Protein 30 H Urine Ascorbic Acid 40 H - EKG Interpretation by Me Additional EKG results interpreted by me: 05/31/19 20:21 EKG shows sinus tachycardia at a rate of 100, left anterior hemiblock, no ST segment elevations, no ST segment depressions, occasional inverted T waves noted in V2 per my interpretation. Discharge - Discharge Clinical Impression: Decompensated COPD with exacerbation (chronic obstructive pulmonary disease) Condition: Fair Disposition: ADMITTED INPATIENT Admitting Provider: Renetta Unit Admitted: [facility] Referrals: SARITA CASTILLO MD [Primary Care Provider] - Follow up as needed
[2019-05-31] MEDS ORDERED: LEVOFLOXACIN 750 MG/D5W RTU 750 MG/150 ML RTUPB IV ONE (20:12)
[2019-05-31] MEDS ORDERED: ACETAMINOPHEN 325 MG TABLET PO PRN (22:35)
[2019-05-31] MEDS: NORMAL SALINE 1000 ML 1,000 ML IV PRN (23:08)
--- NOTE | 2019-05-31 23:57 | EKG REPORT ---
SEVERITY:- ABNORMAL ECG - SINUS TACHYCARDIA LEFT ANTERIOR FASCICULAR BLOCK CONSIDER LEFT VENTRICULAR HYPERTROPHY : Confirmed by: Mervat Mancuso 31-May-2019 23:57:19
[2019-06-01] MEDS: LEVALBUTEROL HCL NEB 1.25 MG/3 ML AMPUL NEB SCH ×4 (03:01→21:19)
[2019-06-01 04:34] LABS: C DIFFICILE GDH NEGATIVE (NEGATIVE)
[2019-06-01] MEDS: METHYLPREDNISOLONE INJ 125 MG/2 ML SDV IV SCH ×3 (06:17→21:02)
[2019-06-01] MEDS: PANTOPRAZOLE SODIUM 40 MG TABLET.DR PO SCH (06:17)
[2019-06-01 08:51] LABS: ARTERIAL BLOOD BASE EXCESS -3.5 mmol/L; ARTERIAL BLOOD H2CO3 1.51 mmol/L (1.05-1.35); ARTERIAL BLOOD HCO3 23.3 mmol/L (20-24); ARTERIAL BLOOD O2 SATURATION 95.3 % (94-98); ARTERIAL BLOOD PCO2 50.1 mmHg (35-45); ARTERIAL BLOOD PH 7.29 (7.35-7.45); ARTERIAL BLOOD PO2 85.7 mmHg (80-100); ARTERIAL BLOOD TOTAL CO2 24.9 mmol/L (21-25)
[2019-06-01 08:55] LABS: ARTERIAL BLOOD FIO2 2L
[2019-06-01] MEDS ORDERED: ENOXAPARIN SODIUM INJ 40 MG/0.4 ML DISP.SYRIN SUBCUT SCH (10:00)
[2019-06-01] MEDS: APIXABAN 5 MG TABLET PO SCH ×2 (11:04→17:16)
[2019-06-01] MEDS: OXYCODONE HCL IR 5 MG TABLET PO PRN ×3 (11:04→23:28)
[2019-06-01] MEDS: CEFEPIME 1 GM/D5W RTU 1 GM/50 ML RTUPB IV SCH ×2 (11:05→21:02)
[2019-06-01 12:51] LABS: PATH REVIEW PATHOLOGIST REVIEWED
[2019-06-01] MEDS ORDERED: (PENDING PHARMACY ID) (Zolpidem Tartrate [Ambien] 5 MG) PO PRN (15:29)
[2019-06-01] MEDS: ALPRAZOLAM 0.5 MG TABLET PO PRN (15:53)
--- NOTE | 2019-06-01 15:53 | PDOC H&P ---
History of Present Illness Admission Date/PCP: 05/31/19 20:30 SARITA ANNA Patient complains of: Shortness of breath History of Present Illness: SUSAN BINGHAM is a 78 year old female patient who presented to the ED via EMS due to worsening difficulty with breathing over preceding several days. She was suppose to have follow up office visit but due to worsening difficulty with breathing and desaturation she was advised to go to ED for more urgent eval uation. She reported associated tightness in her chest, episodes of fever, chronic coughing with increase sputum production. She was not sure about her chin virus infection status but attended service for one of her son who was recently hospitalize. She denied any recent travel or exposure to person with or suspected of chin virus infection. She was administered nebulizer therapy en route to the ED with IV Solu Medrol by he EMS personnel. Her initial ED evaluation was significant for severe leukocytosis. Her chest X ray was remarkable to chronic changes without acute cardiopulmonary process. Her influenza and rapid tests were reported as negative. She is currently under investigation for COVID-19 infection. Her morbidities are as listed below Past Medical History Cardiac Medical History: Reports: Hyperlipidema, Hypertension, Pulmonary Embolism Denies: Atrial Fibrillation, Congestive Heart Failure, Coronary Artery Disease, Myocardial Infarction Pulmonary Medical History: Reports: Asthma, Bronchitis, Chronic Obstructive Pulmonary Disease (COPD), Pneumonia, Respiratory Failure, Sleep Apnea Neurological Medical History: Denies: Seizures Endocrine Medical History: Denies: Hyperthyroidism, Hypothyroidism Renal/ Medical History: Malignancy Medical History: GI Medical History: Reports: Diverticulitis, Gastroesophageal Reflux Disease - Hx ulcer, doesn't know if gastric or duodenal in nature Musculoskeltal Medical History: Reports: Arthritis Denies: Fibromyalgia, Gout Skin Medical History: Denies: Eczema, Psoriasis Psychiatric Medical History: Reports: Depression Traumatic Medical History: Denies: Gunshot Wound Hematology: Denies: Anemia, Sickle Cell Disease, Bleeding Tendencies, Neutropenia Infectious Medical History: Reports: Clostridium Difficile - successfully treated with antibiotics, Methicillin-Resistant Staph Aureus - patient uncertain however it is on her hospital problem list from past Denies: HIV Past Surgical History Past Surgical History: Reports: Colostomy - from perf diverticulitis s/p colstomy reversal 6 years ago, Hysterectomy, Orthopedic Surgery - left hip replacement 11/04/2014, RIGHT KNEE CYST REMOVAL, Pacemaker - for [id number] syndrome Social History Smoking Status: Former Smoker Electronic Cigarette use?: No Number of Years Smokin Frequency of Alcohol Use: Rare Hx Recreational Drug Use: No Drugs: None Hx Prescription Drug Abuse: No - Advance Directive Resuscitation Status: Full Code Family History Family History: CAD, DM, Hyperlipidemia, Hypertension Parental Family History Reviewed: Yes Children Family History Reviewed: Yes Sibling(s) Family History Reviewed.: Yes Medication/Allergy Home Medications: Acetazolamide [Diamox 250 mg Tab] 250 mg PO Q12 05/31/18 Alprazolam [Xanax 0.5 mg Tablet] 0.5 mg PO Q8HP PRN 05/31/18 Buspirone HCl [Buspar 15 mg Tablet] 7.5 mg PO Q8 05/31/18 Citalopram Hydrobromide [Celexa 40 mg Tablet] 40 mg PO DAILY 05/31/18 Montelukast Sodium [Singulair 10 mg Tablet] 10 mg PO QPM 05/31/18 Roflumilast [Daliresp 500 mcg Tablet] 500 mg PO QHS 05/31/18 Ropinirole HCl [Requip] 1 mg PO Q8 05/31/18 Zolpidem Tartrate [Ambien] 5 mg PO HSP PRN 05/31/18 Diltiazem HCl [Diltiazem 24Hr ER (Cd)] 180 mg PO Q12 08/09/18 Ranitidine HCl 150 mg PO BID 08/09/18 Oxycodone HCl/Acetaminophen [Endocet 7.5-325 mg Tablet] 1 tab PO Q6HP PRN 01/29/19 Cyproheptadine HCl [Periactin 4 mg Tablet] 4 mg PO BID #60 tablet 02/09/19 Acetylcysteine [Mucomist 10% Neb 400 mg/4 mL Vial] 200 mg IH BID 06/01/19 Apixaban [Eliquis 5 mg Tablet] 5 mg PO Q12 06/01/19 Multivitamin [Daily Multiple Vitamin] 1 tab PO DAILY 06/01/19 Ondansetron [Zofran Odt 4 mg Tablet] 4 mg PO BIDP PRN 06/01/19 Allergies/Adverse Reactions: erythromycin base [Erythromycin Base] Allergy (Unknown, Verified 05/31/19 17:10) Review of Systems Constitutional: PRESENT: weakness. ABSENT: chills, fever(s), headache(s), weigh t gain, weight loss Eyes: ABSENT: visual disturbances Ears: ABSENT: hearing changes Cardiovascular: PRESENT: dyspnea on exertion, orthropnea. ABSENT: chest pain, edema, palpitations Respiratory: PRESENT: cough, sputum. ABSENT: hemoptysis Gastrointestinal: ABSENT: abdominal pain, constipation, diarrhea, hematemesis, hematochezia, nausea, vomiting Genitourinary: ABSENT: dysuria, hematuria Musculoskeletal: ABSENT: joint swelling Integumentary: ABSENT: rash, wounds Neurological: ABSENT: abnormal gait, abnormal speech, confusion, dizziness, focal weakness, syncope Psychiatric: ABSENT: anxiety, depression, homidical ideation, suicidal ideation Endocrine: ABSENT: cold intolerance, heat intolerance, menstrual abnormalities, polydipsia, polyuria Hematologic/Lymphatic: ABSENT: easy bleeding, easy bruising, lymphadenopathy Physical Exam Vital Signs: Temp Pulse Resp BP Pulse Ox 98.1 F 92 16 119/63 99 06/01/19 06:13 06/01/19 06:13 06/01/19 06:13 06/01/19 06:13 06/01/19 06:13 Intake & Output 05/31/19 06/01/19 06/02/19 06:59 06:59 06:59 Intake Total 2668 Output Total 1000 Balance 1668 Weight 49.8 kg General appearance: PRESENT: mild distress - on supplemental osygen, thin Head exam: PRESENT: atraumatic, normocephalic Eye exam: PRESENT: conjunctiva pink, EOMI, PERRLA. ABSENT: scleral icterus Ear exam: PRESENT: normal external ear exam Mouth exam: ABSENT: dry mucosa, neck supple Throat exam: ABSENT: post pharyngeal erythema Neck exam: PRESENT: full ROM. ABSENT: carotid bruit, JVD, lymphadenopathy, thyromegaly Respiratory exam: PRESENT: crackles, decreased breath sounds, prolonged expiratory phas, rhonchi, wheezes Cardiovascular exam: PRESENT: RRR, +S1, +S2. ABSENT: diastolic murmur, rubs, systolic murmur Vascular exam: ABSENT: pallor GI/Abdominal exam: PRESENT: normal bowel sounds, soft. ABSENT: distended, guarding, mass, organolmegaly, rebound, tenderness Rectal exam: PRESENT: deferred Extremities exam: ABSENT: pedal edema Musculoskeletal exam: PRESENT: ambulatory - [place] at home, deformity Neurological exam: PRESENT: alert, awake, oriented to person, oriented to place, oriented to time, oriented to situation, CN II-XII grossly intact. ABSENT: motor sensory deficit Psychiatric exam: PRESENT: agitated, anxious Skin exam: PRESENT: dry, warm Results Laboratory Results: 05/31/19 16:05 05/31/19 16:05 05/31/19 05/31/19 05/31/19 16:05 16:05 16:05 WBC 30.6 H* RBC 3.89 Hgb 9.3 L Hct 31.8 L MCV 82 MCH 23.9 L MCHC 29.2 L RDW 19.3 H Plt Count 327 Seg Neutrophils % Not Reportable Sodium 134.3 L Potassium 4.1 Chloride 100 Carbon Dioxide 27 Anion Gap 7 BUN 18 Creatinine 1.20 Est GFR ( Amer) 53 L Glucose 165 H Calcium 8.9 Total Bilirubin 0.2 AST 21 Alkaline Phosphatase 97 Total Protein 7.3 Albumin 3.8 Urine Color YELLOW Urine Appearance CLOUDY Urine pH 7.0 Ur Specific [place] 1.016 Urine Protein 30 H Urine Glucose (UA) NEGATIVE Urine Ketones NEGATIVE Urine Blood NEGATIVE Urine Nitrite NEGATIVE Ur Leukocyte Esterase NEGATIVE Urine WBC (Auto) 4 Urine RBC (Auto) 2 05/31/19 16:05 Troponin I < 0.012 Impressions: Chest X-Ray 05/31/19 16:52 IMPRESSION: Obstructive lung disease with lung parenchymal scarring at the right upper lobe and both bases. No acute findings Assessment & Plan - Diagnosis (1) Acute and chronic respiratory failure Qualifiers: Respiratory failure complication: hypoxia Qualified Code(s): J96.21 - Acute and chronic respiratory failure with hypoxia Is this a current diagnosis for this admission?: Yes Plan: See admitting physician orders for details about care plan. (2) Decompensated COPD with exacerbation (chronic obstructive pulmonary disease) Is this a current diagnosis for this admission?: Yes Plan: See admitting physician orders for details about care plan. (3) CAD (coronary artery disease) Qualifiers: Coronary Disease-Associated Artery/Lesion type: [place] artery Associated angina: without angina Is this a current diagnosis for this admission?: Yes Plan: See admitting physician orders for details about care plan. (4) Anemia of chronic disease Is this a current diagnosis for this admission?: Yes Plan: See admitting physician orders for details about care plan. (5) HTN (hypertension) Qualifiers: Hypertension type: essential hypertension Qualified Code(s): I10 - Essenti al (primary) hypertension Is this a current diagnosis for this admission?: Yes Plan: See admitting physician orders for details about care plan. - Time Time Spent: 50 to 70 Minutes Medications reviewed and adjusted accordingly: Yes Anticipated discharge: Home - Inpatient Certification Based on my medical assessment, after consideration of the patient's comorbidities, presenting symptoms, or acuity I expect that the services needed warrant INPATIENT care.: Yes - Plan Summary Plan Summary: See admitting physician orders for details about care plan.
[2019-06-01] MEDS ORDERED: (PENDING PHARMACY ID) (Buspirone Hcl [Buspar 15 Mg Tablet] 7.5 MG) PO SCH ×2 (16:00→22:00)
[2019-06-01] MEDS: OXYCODONE-ACETAMINOPHEN 5-325 MG TABLET PO PRN ×2 (17:15→23:27)
[2019-06-01] MEDS: MONTELUKAST SODIUM 10 MG TABLET PO SCH (17:21)
[2019-06-01] MEDS: DILTIAZEM HCL 180 MG CAPSULE.CR PO SCH (21:02)
[2019-06-01] MEDS: ROPINIROLE HCL 1 MG TABLET PO SCH (21:02)
[2019-06-01] MEDS: ACETAZOLAMIDE 250 MG TABLET PO SCH (21:03)
[2019-06-01] MEDS: CYPROHEPTADINE HCL 4 MG TABLET PO SCH (21:04)
[2019-06-01] MEDS: ZOLPIDEM TARTRATE 5 MG TABLET PO PRN (21:22)
[2019-06-01] MEDS ORDERED: (PENDING PHARMACY ID) (Diltiazem Hcl [Diltiazem 24hr Er (Cd)] 180 MG) PO SCH (22:00)
[2019-06-01] MEDS ORDERED: (PENDING PHARMACY ID) (Ropinirole Hcl [Requip] 1 MG) PO SCH (22:00)
[2019-06-01] MEDS: ACETYLCYSTEINE 10% NEB 400 MG/4 ML VIAL NEB SCH (22:05)
[2019-06-01] MEDS: LEVOFLOXACIN 500 MG/D5W RTU 500 MG/100 ML RTUPB IV SCH (23:28)
[2019-06-02] MEDS: LEVALBUTEROL HCL NEB 1.25 MG/3 ML AMPUL NEB SCH ×2 (02:21→09:55)
[2019-06-02] MEDS: ROPINIROLE HCL 1 MG TABLET PO SCH ×3 (05:54→21:05)
[2019-06-02] MEDS: PANTOPRAZOLE SODIUM 40 MG TABLET.DR PO SCH (05:54)
[2019-06-02] MEDS: METHYLPREDNISOLONE INJ 125 MG/2 ML SDV IV SCH ×3 (05:54→21:04)
[2019-06-02] MEDS: ALPRAZOLAM 0.5 MG TABLET PO PRN ×3 (05:54→22:01)
[2019-06-02] MEDS: OXYCODONE-ACETAMINOPHEN 5-325 MG TABLET PO PRN ×3 (06:10→18:11)
[2019-06-02] MEDS: OXYCODONE HCL IR 5 MG TABLET PO PRN ×3 (06:11→18:11)
[2019-06-02 06:17] LABS: TOTAL CELLS COUNTED % (AUTO) 100 %; WHITE BLOOD COUNT 18.4 10^3/uL (4.0-10.5)
[2019-06-02 06:26] LABS: ABSOLUTE LYMPHOCYTES (AUTO) 2.5 10^3/uL (0.5-4.7); ABSOLUTE MONOCYTES (AUTO) 0.5 10^3/uL (0.1-1.4); ABSOLUTE NEUT (AUTO) 15.3 10^3/uL (1.7-8.2); BASOPHILS % (AUTO) 0.1 % (0-2); HEMATOCRIT 27.5 % (36.0-47.0); HEMOGLOBIN 8.3 g/dL (12.0-15.5); LYMPHOCYTES % (AUTO) 13.8 % (13-45); MEAN CORPUSCULAR HEMOGLOBIN 23.6 pg (27.0-33.4); MEAN CORPUSCULAR HGB CONC 30.2 g/dL (32.0-36.0); MONOCYTES % (AUTO) 2.8 % (3-13); PLATELET COUNT 314 10^3/uL (150-450); RED BLOOD COUNT 3.52 10^6/uL (3.72-5.28); RED CELL DISTRIBUTION WIDTH 20.4 % (11.5-14.0); SEGMENTED NEUTROPHILS % (AUTO) 83.3 % (42-78)
[2019-06-02 06:38] LABS: ALBUMIN 3.1 g/dL (3.5-5.0); ALKALINE PHOSPHATASE 74 U/L (38-126); ANION GAP 7 (5-19); ASPARTATE AMINO TRANSFERASE 18 U/L (14-36); BLOOD UREA NITROGEN 16 mg/dL (7-20); CALCIUM 8.9 mg/dL (8.4-10.2); CARBON DIOXIDE 22 mmol/L (22-30); CHLORIDE 109 mmol/L (98-107); GLUCOSE 131 mg/dL (75-110); POTASSIUM 4.1 mmol/L (3.6-5.0); TOTAL PROTEIN 6.4 g/dL (6.3-8.2)
[2019-06-02 06:50] LABS: BILIRUBIN,TOTAL < 0.1 mg/dL (0.2-1.3)
[2019-06-02 07:00] LABS: MEAN CORPUSCULAR VOLUME 78 fl (80-97)
[2019-06-02] MEDS: MULTIVITAMIN TABLET PO SCH (09:02)
[2019-06-02] MEDS: CYPROHEPTADINE HCL 4 MG TABLET PO SCH ×2 (09:02→21:05)
[2019-06-02] MEDS: APIXABAN 5 MG TABLET PO SCH ×2 (09:02→17:01)
[2019-06-02] MEDS: ACETAZOLAMIDE 250 MG TABLET PO SCH ×2 (09:02→21:05)
[2019-06-02] MEDS: CITALOPRAM HYDROBROMIDE 20 MG TABLET PO SCH (09:02)
[2019-06-02] MEDS: CEFEPIME 1 GM/D5W RTU 1 GM/50 ML RTUPB IV SCH ×2 (09:03→21:05)
[2019-06-02] MEDS: DILTIAZEM HCL 180 MG CAPSULE.CR PO SCH ×2 (09:03→21:05)
[2019-06-02] MEDS: ACETYLCYSTEINE 10% NEB 400 MG/4 ML VIAL NEB SCH ×2 (09:55→21:42)
[2019-06-02] MEDS ORDERED: (PENDING PHARMACY ID) (Citalopram Hydrobromide [Celexa 40 Mg Tablet] 40 MG) PO SCH (10:00)
[2019-06-02] MEDS: NORMAL SALINE 1000 ML 1,000 ML IV PRN ×2 (12:10→22:11)
[2019-06-02] MEDS: ALBUTEROL SULFATE HFA (90 MCG/PUFF) 200 PUFF/8.5 GM MDI IH PRN (12:10)
[2019-06-02] MEDS: MONTELUKAST SODIUM 10 MG TABLET PO SCH (17:01)
--- NOTE | 2019-06-02 17:17 | PDOC PROGRESS REPORT ---
Subjective Progress Note for:: 06/02/19 Subjective:: No reported fever or chills. Breathing remain fair. No reported chest pain. No nausea, vomiting, or abdominal pain. Reason For Visit: COPD,POSSIBLE SEPSIS Physical Exam Vital Signs: Temp Pulse Resp BP Pulse Ox 98.4 F 85 18 123/60 100 06/02/19 11:35 06/02/19 11:35 06/02/19 11:35 06/02/19 11:35 06/02/19 11:35 Intake & Output 06/01/19 06/02/19 06/03/19 06:59 06:59 06:59 Intake Total 2668 2160 410 Output Total 1000 2275 400 Balance 1668 -115 10 Weight 49.8 kg 52.2 kg General appearance: PRESENT: mild distress - on supplemental oxygen via nasal cannula. maintain on HFA due to her pending chin virus infection status, non negative pressure room Eye exam: PRESENT: conjunctiva pink. ABSENT: scleral icterus Ear exam: PRESENT: normal external ear exam Mouth exam: PRESENT: moist Respiratory exam: PRESENT: decreased breath sounds, rhonchi Cardiovascular exam: PRESENT: RRR. ABSENT: diastolic murmur, rubs, systolic murmur Vascular exam: ABSENT: pallor GI/Abdominal exam: PRESENT: normal bowel sounds, soft. ABSENT: distended, guarding, mass, organolmegaly, rebound, tenderness Extremities exam: ABSENT: pedal edema Neurological exam: PRESENT: alert, awake, oriented to person, oriented to place, oriented to time, oriented to situation, CN II-XII grossly intact. ABSENT: mot or sensory deficit Psychiatric exam: PRESENT: agitated, anxious Skin exam: PRESENT: dry, warm Results Laboratory Results: 06/02/19 06:03 06/02/19 06:03 06/02/19 06/02/19 06:03 06:03 WBC 18.4 H RBC 3.52 L Hgb 8.3 L Hct 27.5 L MCV 78 L D MCH 23.6 L MCHC 30.2 L RDW 20.4 H Plt Count 314 Seg Neutrophils % 83.3 H Sodium 137.7 Potassium 4.1 Chloride 109 H Carbon Dioxide 22 Anion Gap 7 BUN 16 Creatinine 0.94 Est GFR ( Amer) > 60 Glucose 131 H Calcium 8.9 Total Bilirubin < 0.1 L AST 18 Alkaline Phosphatase 74 Total Protein 6.4 Albumin 3.1 L 05/31/19 16:05 Throat Throat Culture - Final NORMAL GER 05/31/19 16:05 Troponin I < 0.012 Impressions: Chest X-Ray 05/31/19 16:52 IMPRESSION: Obstructive lung disease with lung parenchymal scarring at the right upper lobe and both bases. No acute findings Assessment & Plan - Diagnosis (1) Acute and chronic respiratory failure Qualifiers: Respiratory failure complication: hypoxia Qualified Code(s): J96.21 - Acute and chronic respiratory failure with hypoxia Is this a current diagnosis for this admission?: Yes (2) Decompensated COPD with exacerbation (chronic obstructive pulmonary disease) Is this a current diagnosis for this admission?: Yes (3) CAD (coronary artery disease) Qualifiers: Coronary Disease-Associated Artery/Lesion type: [place] artery Associated angina: without angina Is this a current diagnosis for this admission?: Yes (4) Anemia of chronic disease Is this a current diagnosis for this admission?: Yes (5) HTN (hypertension) Qualifiers: Hypertension type: essential hypertension Qualified Code(s): I10 - Essential (primary) hypertension Is this a current diagnosis for this admission?: Yes - Time Time Spent with patient: 25-34 minutes Level of Care: IMCU Medications reviewed and adjusted accordingly: Yes Anticipated discharge: Home with Homehealth Within: Other - Inpatient Certification Based on my medical assessment, after consideration of the patient's comorbidities, presenting symptoms, or acuity I expect that the services needed warrant INPATIENT care.: Yes I certify that my determination is in accordance with my understanding of Medicare's requirements for reasonable and necessary INPATIENT services [42 CFR 412.3e].: Yes Medical Necessity: Significant Comorbidiites Make Outpatient Treatment Too Risky, Need Close Monitoring Due to Risk of Patient Decompensation, Need For IV Fluids, Need For Continuous Telemetry Monitoring, Need for Nebulizer Therapy and Monitoring of Response, Need for IV Antibiotics, Risk of Complication if Not Cared For in Hospital, Risk of Diagnosis Which Will Require Inpatient Eval/Care/Monitoring Post Hospital Care: D/C Manager Packaging Documentation - Plan Summary Plan Summary: Continue IV Levofloxacin and Cefepime coverage. Her leukocytosis significantly improved. I will decrease IV Solu Medrol to 60 mg q 8 hours. In view of her steroid therapy exposure on continuos bases before her admission, her sputum growth of Mihaela species is very suggestive of possible infection or colonization. I will add Diflucan to her therapy at this time.
[2019-06-02] MEDS ORDERED: CLOTRIMAZOLE 10 MG TROCHE ONE (18:14)
[2019-06-02] MEDS: CLOTRIMAZOLE 10 MG TROCHE PO SCH ×2 (18:23→21:05)
[2019-06-02] MEDS: ZOLPIDEM TARTRATE 5 MG TABLET PO PRN (21:05)
[2019-06-02] MEDS: LEVOFLOXACIN 500 MG/D5W RTU 500 MG/100 ML RTUPB IV SCH (22:01)
[2019-06-03] MEDS: OXYCODONE-ACETAMINOPHEN 5-325 MG TABLET PO PRN ×4 (00:12→21:22)
[2019-06-03] MEDS: OXYCODONE HCL IR 5 MG TABLET PO PRN ×4 (00:12→21:23)
[2019-06-03] MEDS ORDERED: CLOTRIMAZOLE 10 MG TROCHE ONE (05:43)
[2019-06-03] MEDS: ROPINIROLE HCL 1 MG TABLET PO SCH ×3 (06:15→21:21)
[2019-06-03] MEDS: METHYLPREDNISOLONE INJ 125 MG/2 ML SDV IV SCH ×3 (06:15→21:21)
[2019-06-03] MEDS: PANTOPRAZOLE SODIUM 40 MG TABLET.DR PO SCH (06:15)
[2019-06-03] MEDS: CLOTRIMAZOLE 10 MG TROCHE PO SCH ×5 (06:15→19:35)
[2019-06-03] MEDS: ALPRAZOLAM 0.5 MG TABLET PO PRN ×2 (06:31→14:47)
[2019-06-03 06:53] LABS: ABSOLUTE LYMPHOCYTES (AUTO) 1.6 10^3/uL (0.5-4.7); ABSOLUTE MONOCYTES (AUTO) 0.6 10^3/uL (0.1-1.4); ABSOLUTE NEUT (AUTO) 14.8 10^3/uL (1.7-8.2); HEMATOCRIT 26.3 % (36.0-47.0); LYMPHOCYTES % (AUTO) 9.2 % (13-45); MEAN CORPUSCULAR HEMOGLOBIN 23.6 pg (27.0-33.4); MEAN CORPUSCULAR HGB CONC 29.9 g/dL (32.0-36.0); MEAN CORPUSCULAR VOLUME 79 fl (80-97); MONOCYTES % (AUTO) 3.5 % (3-13); PLATELET COUNT 329 10^3/uL (150-450); RED BLOOD COUNT 3.33 10^6/uL (3.72-5.28); RED CELL DISTRIBUTION WIDTH 20.5 % (11.5-14.0); SEGMENTED NEUTROPHILS % (AUTO) 87.3 % (42-78); TOTAL CELLS COUNTED % (AUTO) 100 %
[2019-06-03 06:57] LABS: HEMOGLOBIN 7.8 g/dL (12.0-15.5)
[2019-06-03 07:02] LABS: ANION GAP 5 (5-19); BLOOD UREA NITROGEN 31 mg/dL (7-20); CALCIUM 8.7 mg/dL (8.4-10.2); CARBON DIOXIDE 23 mmol/L (22-30); CHLORIDE 109 mmol/L (98-107); GLUCOSE 124 mg/dL (75-110); POTASSIUM 4.2 mmol/L (3.6-5.0)
[2019-06-03] MEDS: NORMAL SALINE 1000 ML 1,000 ML IV PRN (09:07)
[2019-06-03] MEDS: CEFEPIME 1 GM/D5W RTU 1 GM/50 ML RTUPB IV SCH (09:07)
[2019-06-03] MEDS: CITALOPRAM HYDROBROMIDE 20 MG TABLET PO SCH (09:08)
[2019-06-03] MEDS: ACETAZOLAMIDE 250 MG TABLET PO SCH ×2 (09:08→21:25)
[2019-06-03] MEDS: CYPROHEPTADINE HCL 4 MG TABLET PO SCH ×2 (09:08→21:26)
[2019-06-03] MEDS: APIXABAN 5 MG TABLET PO SCH ×2 (09:09→17:01)
[2019-06-03] MEDS: MULTIVITAMIN TABLET PO SCH (09:09)
[2019-06-03] MEDS: DILTIAZEM HCL 180 MG CAPSULE.CR PO SCH ×3 (09:10→21:21)
[2019-06-03] MEDS: ACETYLCYSTEINE 10% NEB 400 MG/4 ML VIAL NEB SCH ×2 (09:49→21:03)
--- NOTE | 2019-06-03 14:57 | PDOC PROGRESS REPORT ---
Subjective Progress Note for:: 06/03/19 Subjective:: COVID-19 status is still pending. No reported fever or chills. Breathing remain fair. No reported chest pain. No nausea, vomiting, or abdominal pain. Reason For Visit: COPD,POSSIBLE SEPSIS Physical Exam Vital Signs: Temp Pulse Resp BP Pulse Ox 97.6 F 62 20 108/44 L 100 06/03/19 11:00 06/03/19 14:00 06/03/19 11:00 06/03/19 11:00 06/03/19 11:00 Intake & Output 06/02/19 06/03/19 06/04/19 06:59 06:59 06:59 Intake Total 2160 3042 1770 Output Total 2275 1650 Balance -115 1392 1770 Weight 52.2 kg 57.9 kg Physical Exam: General appearance: PRESENT: mild distress - on supplemental oxygen via nasal cannula. maintain on HFA due to her pending chin virus infection status, non negative pressure room Eye exam: PRESENT: conjunctiva pink. ABSENT: pallor, scleral icterus Ear exam: PRESENT: normal external ear exam Mouth exam: PRESENT: moist Respiratory exam: PRESENT: decreased breath sounds, minimal rhonchi Cardiovascular exam: PRESENT: RRR. ABSENT: diastolic murmur, rubs, systolic murmur GI/Abdominal exam: PRESENT: normal bowel sounds, soft. ABSENT: distended, guarding, mass, organomegaly, rebound, tenderness Extremities exam: ABSENT: pedal edema Neurological exam: PRESENT: alert, awake, oriented to person, oriented to place, oriented to time, oriented to situation, CN II-XII grossly intact. ABSENT: motor sensory deficit Psychiatric exam: PRESENT: agitated, anxious Skin exam: PRESENT: dry, warm Results Laboratory Results: 06/03/19 06:17 06/03/19 06:17 06/03/19 06/03/19 06:17 06:17 WBC 17.0 H RBC 3.33 L Hgb 7.8 L Hct 26.3 L MCV 79 L MCH 23.6 L MCHC 29.9 L RDW 20.5 H Plt Count 329 Seg Neutrophils % 87.3 H Sodium 137.1 Potassium 4.2 Chloride 109 H Carbon Dioxide 23 Anion Gap 5 BUN 31 H Creatinine 1.08 Est GFR ( Amer) > 60 Glucose 124 H Calcium 8.7 05/31/19 16:05 Throat Throat Culture - Final NORMAL GER 05/31/19 16:05 Troponin I < 0.012 Impressions: Chest X-Ray 05/31/19 16:52 IMPRESSION: Obstructive lung disease with lung parenchymal scarring at the right upper lobe and both bases. No acute findings Assessment & Plan - Diagnosis (1) Acute and chronic respiratory failure Qualifiers: Respiratory failure complication: hypoxia Qualified Code(s): J96.21 - Acute and chronic respiratory failure with hypoxia Is this a current diagnosis for this admission?: Yes (2) Decompensated COPD with exacerbation (chronic obstructive pulmonary disease) Is this a current diagnosis for this admission?: Yes (3) CAD (coronary artery disease) Qualifiers: Coronary Disease-Associated Artery/Lesion type: [place] artery Associated angina: without angina Is this a current diagnosis for this admission?: Yes (4) Anemia of chronic disease Is this a current diagnosis for this admission?: Yes (5) HTN (hypertension) Qualifiers: Hypertension type: essential hypertension Qualified Code(s): I10 - Essential (primary) hypertension Is this a current diagnosis for this admission?: Yes - Time Time Spent with patient: 25-34 minutes Level of Care: IMCU Medications reviewed and adjusted accordingly: Yes Anticipated discharge: Home with Homehealth Within: Other - Inpatient Certification Based on my medical assessment, after consideration of the patient's comorbidities, presenting symptoms, or acuity I expect that the services needed warrant INPATIENT care.: Yes I certify that my determination is in accordance with my understanding of Medicare's requirements for reasonable and necessary INPATIENT services [42 CFR 412.3e].: Yes Medical Necessity: Significant Comorbidiites Make Outpatient Treatment Too Ri shawanda, Need Close Monitoring Due to Risk of Patient Decompensation, Need For IV Fluids, Need For Continuous Telemetry Monitoring, Need for IV Antibiotics, Risk of Complication if Not Cared For in Hospital, Risk of Diagnosis Which Will Require Inpatient Eval/Care/Monitoring Post Hospital Care: D/C Make Up Editor Documentation - Plan Summary Plan Summary: Continue current medication management. Transfuse 2 units PRBC for anemia probable due to chronic disease.
[2019-06-03] MEDS ORDERED: NORMAL SALINE 250 ML IV PRN ×2 (15:02)
[2019-06-03] MEDS: MONTELUKAST SODIUM 10 MG TABLET PO SCH (17:01)
[2019-06-03] MEDS ORDERED: FUROSEMIDE INJ/PF 20 MG/2 ML SDV IV PRN (17:21)
[2019-06-04] MEDS: CEFEPIME 1 GM/D5W RTU 1 GM/50 ML RTUPB IV SCH ×3 (00:11→21:42)
[2019-06-04] MEDS: NORMAL SALINE 1000 ML 1,000 ML IV PRN ×3 (00:27→22:04)
[2019-06-04] MEDS: LEVOFLOXACIN 500 MG/D5W RTU 500 MG/100 ML RTUPB IV SCH ×2 (01:03→21:42)
[2019-06-04 03:14] LABS: HEMATOCRIT 36.2 % (36.0-47.0); RED BLOOD COUNT 4.38 10^6/uL (3.72-5.28); WHITE BLOOD COUNT 10.4 10^3/uL (4.0-10.5)
[2019-06-04 03:15] LABS: MEAN CORPUSCULAR HGB CONC 31.4 g/dL (32.0-36.0); PLATELET COUNT 315 10^3/uL (150-450)
[2019-06-04 03:16] LABS: HEMOGLOBIN 11.4 g/dL (12.0-15.5); MEAN CORPUSCULAR VOLUME 83 fl (80-97)
[2019-06-04 03:19] LABS: ABSOLUTE LYMPHOCYTES# (MANUAL) 0.8 10^3/uL (0.5-4.7); ABSOLUTE MONOCYTES # (MANUAL) 0.4 10^3/uL (0.1-1.4); BASOPHILS % (MANUAL) 0 % (0-2); EOSINOPHILS % (MANUAL) 0 % (0-6); LYMPHOCYTES % (MANUAL) 7 % (13-45); MONOCYTES % (MANUAL) 4 % (3-13); SEGMENTED NEUTROPHILS % (MAN) 88 % (42-78); TOTAL CELLS COUNTED 100
[2019-06-04 03:21] LABS: TOXIC GRANULATION 1+; TOXIC VACUOLATION PRESENT
[2019-06-04 03:22] LABS: ANISOCYTOSIS 2+; BURR CELLS 1+; OVALOCYTES 1+; PLATELET COMMENT ADEQUATE; POIKILOCYTOSIS 2+; TEAR DROP CELLS SLIGHT
[2019-06-04] MEDS: METHYLPREDNISOLONE INJ 125 MG/2 ML SDV IV SCH ×2 (05:48→13:02)
[2019-06-04] MEDS: PANTOPRAZOLE SODIUM 40 MG TABLET.DR PO SCH (05:49)
[2019-06-04] MEDS: ROPINIROLE HCL 1 MG TABLET PO SCH ×3 (05:49→21:41)
[2019-06-04] MEDS: CLOTRIMAZOLE 10 MG TROCHE PO SCH ×5 (06:00→18:51)
[2019-06-04] MEDS: ACETYLCYSTEINE 10% NEB 400 MG/4 ML VIAL NEB SCH ×2 (08:31→20:55)
[2019-06-04] MEDS: CYPROHEPTADINE HCL 4 MG TABLET PO SCH ×2 (09:11→21:41)
[2019-06-04] MEDS: DILTIAZEM HCL 180 MG CAPSULE.CR PO SCH ×2 (09:12→21:41)
[2019-06-04] MEDS: CITALOPRAM HYDROBROMIDE 20 MG TABLET PO SCH (09:12)
[2019-06-04] MEDS: ACETAZOLAMIDE 250 MG TABLET PO SCH ×2 (09:12→21:41)
[2019-06-04] MEDS: MULTIVITAMIN TABLET PO SCH (09:13)
[2019-06-04] MEDS: APIXABAN 5 MG TABLET PO SCH ×2 (09:13→18:46)
[2019-06-04] MEDS: ALPRAZOLAM 0.5 MG TABLET PO PRN ×2 (09:45→21:46)
--- NOTE | 2019-06-04 13:12 | PDOC PROGRESS REPORT ---
Subjective Progress Note for:: 06/04/19 Subjective:: Her COVID-19 status is still pending due to mismatch in her middle name at the lab. No reported fever or chills. Breathing remain fair. No reported chest pain. No nausea, vomiting, or abdominal pain. s/p transfusion with 2 units PRBC since last clinical evaluation. Reason For Visit: COPD,POSSIBLE SEPSIS Physical Exam Vital Signs: Temp Pulse Resp BP Pulse Ox 98.0 F 60 16 125/39 L 97 06/04/19 11:26 06/04/19 11:26 06/04/19 11:26 06/04/19 11:26 06/04/19 11:26 Intake & Output 06/03/19 06/04/19 06/05/19 06:59 06:59 06:59 Intake Total 3042 4237 1210 Output Total 1650 3000 Balance 1392 1237 1210 Weight 57.9 kg 57.6 kg Physical Exam: General appearance: PRESENT: mild distress - on supplemental oxygen via nasal cannula. Eye exam: PRESENT: conjunctiva pink. ABSENT: pallor, scleral icterus Ear exam: PRESENT: normal external ear exam Mouth exam: PRESENT: moist Respiratory exam: PRESENT: decreased breath sounds, minimal rhonchi Cardiovascular exam: PRESENT: RRR. ABSENT: diastolic murmur, rubs, systolic murmur GI/Abdominal exam: PRESENT: normal bowel sounds, soft. ABSENT: distended, guarding, mass, organomegaly, rebound, tenderness Extremities exam: ABSENT: pedal edema Neurological exam: PRESENT: alert, awake, oriented to person, oriented to place, oriented to time, oriented to situation, CN II-XII grossly intact. ABSENT: motor sensory deficit Psychiatric exam: PRESENT: agitated, anxious Skin exam: PRESENT: dry, warm Results Laboratory Results: 06/04/19 02:20 06/03/19 06:17 06/03/19 06/04/19 15:25 02:20 WBC 10.4 RBC 4.38 Hgb 11.4 L D Hct 36.2 MCV 83 D MCH 26.0 L MCHC 31.4 L RDW 19.0 H Plt Count 315 Seg Neutrophils % Not Reportable Blood Type O POSITIVE Antibody Screen NEGATIVE 05/31/19 18:47 Sputum Gram Stain - Final 05/31/19 18:47 Sputum Sputum Culture - Final C.albicans/C.dubliniensis Normal Analy 05/31/19 16:05 Troponin I < 0.012 Impressions: Chest X-Ray 05/31/19 16:52 IMPRESSION: Obstructive lung disease with lung parenchymal scarring at the r ight upper lobe and both bases. No acute findings Assessment & Plan - Diagnosis (1) Acute and chronic respiratory failure Qualifiers: Respiratory failure complication: hypoxia Qualified Code(s): J96.21 - Acute and chronic respiratory failure with hypoxia Is this a current diagnosis for this admission?: Yes (2) Decompensated COPD with exacerbation (chronic obstructive pulmonary disease) Is this a current diagnosis for this admission?: Yes (3) CAD (coronary artery disease) Qualifiers: Coronary Disease-Associated Artery/Lesion type: [place] artery Associated angina: without angina Is this a current diagnosis for this admission?: Yes (4) Anemia of chronic disease Is this a current diagnosis for this admission?: Yes (5) HTN (hypertension) Qualifiers: Hypertension type: essential hypertension Qualified Code(s): I10 - Essential (primary) hypertension Is this a current diagnosis for this admission?: Yes - Time Time Spent with patient: 25-34 minutes Level of Care: IMCU Medications reviewed and adjusted accordingly: Yes Anticipated discharge: Home with Homehealth Within: Other - Inpatient Certification Based on my medical assessment, after consideration of the patient's comorbidities, presenting symptoms, or acuity I expect that the services needed warrant INPATIENT care.: Yes I certify that my determination is in accordance with my understanding of Medicare's requirements for reasonable and necessary INPATIENT services [42 CFR 412.3e].: Yes Medical Necessity: Significant Comorbidiites Make Outpatient Treatment Too Risky, Need Close Monitoring Due to Risk of Patient Decompensation, Need For IV Fluids, Need For Continuous Telemetry Monitoring, Need for IV Antibiotics, Risk of Complication if Not Cared For in Hospital, Risk of Diagnosis Which Will Require Inpatient Eval/Care/Monitoring Post Hospital Care: D/C Catering Server Documentation - Plan Summary Plan Summary: Decrease IV Solu Medrol to 40 mg [id number]. Continue all other current medication management. Follow up on COVID-19 test status documentation
[2019-06-04] MEDS: METHYLPREDNISOLONE INJ 40 MG/1 ML SDV IV SCH ×2 (13:29→21:42)
[2019-06-04] MEDS: MONTELUKAST SODIUM 10 MG TABLET PO SCH (18:45)
[2019-06-04] MEDS: DOCUSATE SODIUM 100 MG CAPSULE PO PRN (21:41)
[2019-06-04] MEDS: ZOLPIDEM TARTRATE 5 MG TABLET PO PRN (21:46)
[2019-06-04] MEDS: OXYCODONE HCL IR 5 MG TABLET PO PRN (22:10)
[2019-06-04] MEDS: OXYCODONE-ACETAMINOPHEN 5-325 MG TABLET PO PRN (22:11)
[2019-06-04] MEDS: ALBUTEROL SULFATE HFA (90 MCG/PUFF) 200 PUFF/8.5 GM MDI IH PRN (23:41)
[2019-06-05] MEDS: PANTOPRAZOLE SODIUM 40 MG TABLET.DR PO SCH (06:00)
[2019-06-05] MEDS: ROPINIROLE HCL 1 MG TABLET PO SCH ×3 (06:00→21:46)
[2019-06-05] MEDS: CLOTRIMAZOLE 10 MG TROCHE PO SCH ×5 (06:00→18:43)
[2019-06-05] MEDS: METHYLPREDNISOLONE INJ 40 MG/1 ML SDV IV SCH ×3 (06:01→21:46)
--- NOTE | 2019-06-05 08:11 | PDOC PROGRESS REPORT ---
Subjective Progress Note for:: 06/05/19 Subjective:: Patient denied any chest pain. Breathing and cough with sputum production are improving. No reported fever or chills. No nausea, vomiting, or abdominal pain. Reason For Visit: COPD,POSSIBLE SEPSIS Physical Exam Vital Signs: Temp Pulse Resp BP Pulse Ox 97.5 F 70 21 H 123/64 96 06/05/19 03:57 06/05/19 03:57 06/05/19 03:57 06/05/19 03:57 06/05/19 03:57 Intake & Output 06/04/19 06/05/19 06/06/19 06:59 06:59 06:59 Intake Total 4237 4122 Output Total 3000 2900 Balance 1237 1222 Weight 57.6 kg Physical Exam: General appearance: PRESENT: mild distress - on supplemental oxygen via nasal cannula. Eye exam: PRESENT: conjunctiva pink. ABSENT: pallor, scleral icterus Ear exam: PRESENT: normal external ear exam Mouth exam: PRESENT: moist Respiratory exam: PRESENT: decreased breath sounds, minimal rhonchi Cardiovascular exam: PRESENT: RRR. ABSENT: diastolic murmur, rubs, systolic murmur GI/Abdominal exam: PRESENT: normal bowel sounds, soft. ABSENT: distended, guarding, mass, organomegaly, rebound, tenderness Extremities exam: ABSENT: pedal edema Neurological exam: PRESENT: alert, awake, oriented to person, oriented to place, oriented to time, oriented to situation, CN II-XII grossly intact. ABSENT: motor sensory deficit Psychiatric exam: PRESENT: agitated, anxious Skin exam: PRESENT: dry, warm Results Laboratory Results: 06/04/19 02:20 06/03/19 06:17 05/31/19 16:05 Troponin I < 0.012 Impressions: Chest X-Ray 05/31/19 16:52 IMPRESSION: Obstructive lung disease with lung parenchymal scarring at the right upper lobe and both bases. No acute findings Assessment & Plan - Diagnosis (1) Acute and chronic respiratory failure Qualifiers: Respiratory failure complication: hypoxia Qualified Code(s): J96.21 - Acute and chronic respiratory failure with hypoxia Is this a current diagnosis for this admission?: Yes (2) Decompensated COPD with exacerbation (chronic obstructive pulmonary disease) Is this a current diagnosis for this admission?: Yes (3) CAD (coronary artery disease) Qualifiers: Coronary Disease-Associated Artery/Lesion type: [place] artery Associated angina: without angina Is this a current diagnosis for this admission?: Yes (4) Anemia of chronic disease Is this a current diagnosis for this admission?: Yes (5) HTN (hypertension) Qualifiers: Hypertension type: essential hypertension Qualified Code(s): I10 - Essential (primary) hypertension Is this a current diagnosis for this admission?: Yes - Time Time Spent with patient: 25-34 minutes Level of Care: IMCU Medications reviewed and adjusted accordingly: Yes Anticipated discharge: Home with Homehealth Within: Other - Inpatient Certification Based on my medical assessment, after consideration of the patient's comorbidities, presenting symptoms, or acuity I expect that the services needed warrant INPATIENT care.: Yes I certify that my determination is in accordance with my understanding of Medicare's requirements for reasonable and necessary INPATIENT services [42 CFR 412.3e].: Yes Medical Necessity: Significant Comorbidiites Make Outpatient Treatment Too Risky, Need Close Monitoring Due to Risk of Patient Decompensation, Need For IV Fluids, Need For Continuous Telemetry Monitoring, Need for IV Antibiotics, Risk of Complication if Not Cared For in Hospital, Risk of Diagnosis Which Will Require Inpatient Eval/Care/Monitoring Post Hospital Care: D/C Director [employer] Documentation - Plan Summary Plan Summary: Continue IV Cefepime and Levofloxacin coverage. Decrease IV Solu Medrol , to 40 mg q 12 hours. Follow up on blood culture. Obtain CBC with diff, BMP in am.
[2019-06-05] MEDS: ACETYLCYSTEINE 10% NEB 400 MG/4 ML VIAL NEB SCH ×2 (08:57→21:47)
[2019-06-05] MEDS: NORMAL SALINE 1000 ML 1,000 ML IV PRN ×2 (09:36→18:43)
[2019-06-05] MEDS: CEFEPIME 1 GM/D5W RTU 1 GM/50 ML RTUPB IV SCH ×2 (09:37→21:45)
[2019-06-05] MEDS: DILTIAZEM HCL 180 MG CAPSULE.CR PO SCH ×2 (09:38→21:45)
[2019-06-05] MEDS: APIXABAN 5 MG TABLET PO SCH ×2 (09:39→17:11)
[2019-06-05] MEDS: CITALOPRAM HYDROBROMIDE 20 MG TABLET PO SCH (09:39)
[2019-06-05] MEDS: CYPROHEPTADINE HCL 4 MG TABLET PO SCH ×2 (09:39→21:46)
[2019-06-05] MEDS: MULTIVITAMIN TABLET PO SCH (09:39)
[2019-06-05] MEDS: ACETAZOLAMIDE 250 MG TABLET PO SCH ×2 (09:39→21:45)
[2019-06-05] MEDS: OXYCODONE-ACETAMINOPHEN 5-325 MG TABLET PO PRN ×2 (10:49→21:52)
[2019-06-05] MEDS: OXYCODONE HCL IR 5 MG TABLET PO PRN ×2 (10:49→21:50)
[2019-06-05] MEDS: ALPRAZOLAM 0.5 MG TABLET PO PRN ×2 (10:49→21:50)
[2019-06-05] MEDS: DOCUSATE SODIUM 100 MG CAPSULE PO PRN (10:51)
[2019-06-05] MEDS: MONTELUKAST SODIUM 10 MG TABLET PO SCH (17:11)
[2019-06-05] MEDS: LEVOFLOXACIN 500 MG/D5W RTU 500 MG/100 ML RTUPB IV SCH (21:45)
[2019-06-05] MEDS: ZOLPIDEM TARTRATE 5 MG TABLET PO PRN (21:50)
[2019-06-06] MEDS: METHYLPREDNISOLONE INJ 40 MG/1 ML SDV IV SCH (06:07)
[2019-06-06] MEDS: CLOTRIMAZOLE 10 MG TROCHE PO SCH ×5 (06:07→19:00)
[2019-06-06] MEDS: NORMAL SALINE 1000 ML 1,000 ML IV PRN ×2 (06:07→17:13)
[2019-06-06] MEDS: ROPINIROLE HCL 1 MG TABLET PO SCH ×3 (06:07→22:46)
[2019-06-06] MEDS: PANTOPRAZOLE SODIUM 40 MG TABLET.DR PO SCH (06:07)
[2019-06-06 06:12] LABS: HEMATOCRIT 37.6 % (36.0-47.0); MEAN CORPUSCULAR HEMOGLOBIN 25.8 pg (27.0-33.4); MEAN CORPUSCULAR HGB CONC 31.5 g/dL (32.0-36.0); MEAN CORPUSCULAR VOLUME 82 fl (80-97); PLATELET COUNT 349 10^3/uL (150-450); RED BLOOD COUNT 4.61 10^6/uL (3.72-5.28); RED CELL DISTRIBUTION WIDTH 19.6 % (11.5-14.0); WHITE BLOOD COUNT 11.7 10^3/uL (4.0-10.5)
[2019-06-06 06:30] LABS: BLOOD UREA NITROGEN 33 mg/dL (7-20); CALCIUM 8.5 mg/dL (8.4-10.2); CARBON DIOXIDE 27 mmol/L (22-30); GLUCOSE 119 mg/dL (75-110); POTASSIUM 4.3 mmol/L (3.6-5.0)
[2019-06-06 06:35] LABS: CHLORIDE 108 mmol/L (98-107)
[2019-06-06 06:37] LABS: ANION GAP 3 (5-19)
[2019-06-06 06:43] LABS: ABSOLUTE LYMPHOCYTES# (MANUAL) 0.4 10^3/uL (0.5-4.7); ABSOLUTE MONOCYTES # (MANUAL) 0.4 10^3/uL (0.1-1.4); BASOPHILS % (MANUAL) 0 % (0-2); EOSINOPHILS % (MANUAL) 0 % (0-6); LYMPHOCYTES % (MANUAL) 3 % (13-45); MONOCYTES % (MANUAL) 3 % (3-13); SEGMENTED NEUTROPHILS % (MAN) 94 % (42-78); TOTAL CELLS COUNTED 100
[2019-06-06 06:44] LABS: TOXIC GRANULATION SLIGHT; TOXIC VACUOLATION PRESENT
[2019-06-06 06:45] LABS: ANISOCYTOSIS 2+; HYPOCHROMASIA SLIGHT; TEAR DROP CELLS SLIGHT
[2019-06-06 06:46] LABS: PLATELET COMMENT ADEQUATE
[2019-06-06 06:47] LABS: HEMOGLOBIN 11.9 g/dL (12.0-15.5)
[2019-06-06] MEDS: ACETYLCYSTEINE 10% NEB 400 MG/4 ML VIAL NEB SCH (07:51)
--- NOTE | 2019-06-06 08:42 | PDOC PROGRESS REPORT ---
Subjective Progress Note for:: 06/06/19 Subjective:: Patient denied any chest pain. Breathing is getting better. Refusing Mucomyst therapy. Less coughing and sputum production. No reported fever or chills. No nausea, vomiting, or abdominal pain. Reason For Visit: COPD,POSSIBLE SEPSIS Physical Exam Vital Signs: Temp Pulse Resp BP Pulse Ox 97.6 F 60 16 125/57 L 96 06/06/19 03:29 06/06/19 07:00 06/06/19 03:29 06/06/19 03:29 06/06/19 03:29 Intake & Output 06/05/19 06/06/19 06/07/19 06:59 06:59 06:59 Intake Total 4122 6338 Output Total 2900 4800 Balance 1222 1538 Weight 52.1 kg Physical Exam: General appearance: PRESENT: mild distress - on supplemental oxygen via nasal cannula. Eye exam: PRESENT: conjunctiva pink. ABSENT: pallor, scleral icterus Ear exam: PRESENT: normal external ear exam Mouth exam: PRESENT: moist Respiratory exam: PRESENT: decreased breath sounds, minimal rhonchi Cardiovascular exam: PRESENT: RRR. ABSENT: diastolic murmur, rubs, systolic murmur GI/Abdominal exam: PRESENT: normal bowel sounds, soft. ABSENT: distended, g uarding, mass, organomegaly, rebound, tenderness Extremities exam: ABSENT: pedal edema Neurological exam: PRESENT: alert, awake, oriented to person, oriented to place, oriented to time, oriented to situation, CN II-XII grossly intact. ABSENT: motor sensory deficit Psychiatric exam: PRESENT: agitated, anxious Skin exam: PRESENT: dry, warm Results Laboratory Results: 06/06/19 05:50 06/06/19 05:50 06/05/19 06/06/19 06/06/19 20:45 05:50 05:50 WBC 11.7 H RBC 4.61 Hgb 11.9 L Hct 37.6 MCV 82 MCH 25.8 L MCHC 31.5 L RDW 19.6 H Plt Count 349 Seg Neutrophils % Not Reportable Sodium 137.8 Potassium 4.3 Chloride 108 H Carbon Dioxide 27 Anion Gap 3 L BUN 33 H Creatinine 0.90 Est GFR ( Amer) > 60 Glucose 119 H Calcium 8.5 Stool Occult Blood NEGATIVE 05/31/19 17:47 Blood Blood Culture - Final NO GROWTH IN 5 DAYS 05/31/19 16:05 Blood Blood Culture - Final NO GROWTH IN 5 DAYS 05/31/19 16:05 Troponin I < 0.012 Impressions: Chest X-Ray 05/31/19 16:52 IMPRESSION: Obstructive lung disease with lung parenchymal scarring at the right upper lobe and both bases. No acute findings Assessment & Plan - Diagnosis (1) Acute and chronic respiratory failure Qualifiers: Respiratory failure complication: hypoxia Qualified Code(s): J96.21 - Acute and chronic respiratory failure with hypoxia Is this a current diagnosis for this admission?: Yes (2) Decompensated COPD with exacerbation (chronic obstructive pulmonary disease) Is this a current diagnosis for this admission?: Yes (3) CAD (coronary artery disease) Qualifiers: Coronary Disease-Associated Artery/Lesion type: [place] artery Associated angina: without angina Is this a current diagnosis for this admission?: Yes (4) Anemia of chronic disease Is this a current diagnosis for this admission?: Yes (5) HTN (hypertension) Qualifiers: Hypertension type: essential hypertension Qualified Code(s): I10 - Essential (primary) hypertension Is this a current diagnosis for this admission?: Yes - Time Time Spent with patient: 25-34 minutes Level of Care: IMCU Anticipated discharge: Home with Homehealth Within: Other - Inpatient Certification Based on my medical assessment, after consideration of the patient's comorbidities, presenting symptoms, or acuity I expect that the services needed warrant INPATIENT care.: Yes I certify that my determination is in accordance with my understanding of Medicare's requirements for reasonable and necessary INPATIENT services [42 CFR 412.3e].: Yes Medical Necessity: Significant Comorbidiites Make Outpatient Treatment Too Risky, Need Close Monitoring Due to Risk of Patient Decompensation, Need For IV Fluids, Need For Continuous Telemetry Monitoring, Need for Nebulizer Therapy and Monitoring of Response, Need for IV Antibiotics, Risk of Complication if Not Cared For in Hospital, Risk of Diagnosis Which Will Require Inpatient Eval/Care/Monitoring Post Hospital 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 D/C IV Solu Medrol. Start on tapering dose of oral Prednisone at 15 mg po daily. D/c Mucomyst and Albuterol HFA.
[2019-06-06] MEDS: ACETAZOLAMIDE 250 MG TABLET PO SCH ×2 (10:00→22:45)
[2019-06-06] MEDS: CITALOPRAM HYDROBROMIDE 20 MG TABLET PO SCH (10:00)
[2019-06-06] MEDS: APIXABAN 5 MG TABLET PO SCH ×2 (10:00→17:11)
[2019-06-06] MEDS: DILTIAZEM HCL 180 MG CAPSULE.CR PO SCH ×2 (10:00→22:45)
[2019-06-06] MEDS: CEFEPIME 1 GM/D5W RTU 1 GM/50 ML RTUPB IV SCH ×2 (10:01→22:47)
[2019-06-06] MEDS: PREDNISONE 20 MG TABLET PO SCH (10:01)
[2019-06-06] MEDS: MULTIVITAMIN TABLET PO SCH (10:01)
[2019-06-06] MEDS: CYPROHEPTADINE HCL 4 MG TABLET PO SCH ×2 (10:03→22:45)
[2019-06-06] MEDS: ALPRAZOLAM 0.5 MG TABLET PO PRN ×2 (10:12→22:45)
[2019-06-06] MEDS: LEVALBUTEROL HCL NEB 1.25 MG/3 ML AMPUL NEB PRN (10:35)
[2019-06-06] MEDS: OXYCODONE HCL IR 5 MG TABLET PO PRN ×2 (14:30→22:45)
[2019-06-06] MEDS: OXYCODONE-ACETAMINOPHEN 5-325 MG TABLET PO PRN ×2 (14:35→22:46)
[2019-06-06] MEDS: MONTELUKAST SODIUM 10 MG TABLET PO SCH (17:11)
[2019-06-06] MEDS: ZOLPIDEM TARTRATE 5 MG TABLET PO PRN (22:45)
[2019-06-06] MEDS: LEVOFLOXACIN 500 MG/D5W RTU 500 MG/100 ML RTUPB IV SCH (22:47)
[2019-06-07] MEDS: ROPINIROLE HCL 1 MG TABLET PO SCH ×3 (06:06→22:21)
[2019-06-07] MEDS: CLOTRIMAZOLE 10 MG TROCHE PO SCH ×5 (06:06→19:03)
[2019-06-07] MEDS: PANTOPRAZOLE SODIUM 40 MG TABLET.DR PO SCH (06:06)
[2019-06-07] MEDS: NORMAL SALINE 1000 ML 1,000 ML IV PRN ×2 (06:06→17:32)
[2019-06-07] MEDS: ALPRAZOLAM 0.5 MG TABLET PO PRN ×2 (09:26→18:06)
[2019-06-07] MEDS: ACETAZOLAMIDE 250 MG TABLET PO SCH ×2 (09:26→22:22)
[2019-06-07] MEDS: DILTIAZEM HCL 180 MG CAPSULE.CR PO SCH ×2 (09:26→22:20)
[2019-06-07] MEDS: CITALOPRAM HYDROBROMIDE 20 MG TABLET PO SCH (09:26)
[2019-06-07] MEDS: MULTIVITAMIN TABLET PO SCH (09:26)
[2019-06-07] MEDS: APIXABAN 5 MG TABLET PO SCH ×2 (09:26→17:30)
[2019-06-07] MEDS: PREDNISONE 20 MG TABLET PO SCH (09:26)
[2019-06-07] MEDS: CEFEPIME 1 GM/D5W RTU 1 GM/50 ML RTUPB IV SCH (09:26)
[2019-06-07] MEDS: OXYCODONE HCL IR 5 MG TABLET PO PRN ×2 (09:33→22:21)
[2019-06-07] MEDS: OXYCODONE-ACETAMINOPHEN 5-325 MG TABLET PO PRN ×3 (09:34→23:32)
[2019-06-07] MEDS: CYPROHEPTADINE HCL 4 MG TABLET PO SCH ×2 (09:34→22:21)
[2019-06-07] MEDS: LEVALBUTEROL HCL NEB 1.25 MG/3 ML AMPUL NEB PRN ×2 (11:06→15:16)
[2019-06-07] MEDS: CEFPODOXIME 200 MG TABLET PO SCH ×2 (17:22→22:22)
[2019-06-07] MEDS: MONTELUKAST SODIUM 10 MG TABLET PO SCH (17:31)
--- NOTE | 2019-06-07 18:23 | PDOC PROGRESS REPORT ---
Subjective Progress Note for:: 06/07/19 Subjective:: Patient denied any chest pain. She remain on supplemental oxygen via nasal cannula. There is coughing and sputum production. No reported fever or chills. No nausea, vomiting, or abdominal pain. Reason For Visit: COPD,POSSIBLE SEPSIS Physical Exam Vital Signs: Temp Pulse Resp BP Pulse Ox 98.3 F 66 18 138/54 H 94 06/07/19 08:42 06/07/19 08:42 06/07/19 08:42 06/07/19 08:42 06/07/19 08:42 Intake & Output 06/06/19 06/07/19 06/08/19 06:59 06:59 06:59 Intake Total 6338 3710 Output Total 4800 1000 Balance 1538 2710 Weight 52.1 kg 52.9 kg Physical Exam: General appearance: PRESENT: mild distress - on supplemental oxygen via nasal cannula. Eye exam: PRESENT: conjunctiva pink. ABSENT: pallor, scleral icterus Ear exam: PRESENT: normal external ear exam Mouth exam: PRESENT: moist Respiratory exam: PRESENT: decreased breath sounds, minimal rhonchi Cardiovascular exam: PRESENT: RRR. ABSENT: diastolic murmur, rubs, systolic murmur GI/Abdominal exam: PRESENT: normal bowel sounds, soft. ABSENT: distended, guarding, mass, organomegaly, rebound, tenderness Extremities exam: ABSENT: pedal edema Neurological exam: PRESENT: alert, awake, oriented to person, oriented to place, oriented to time, oriented to situation, CN II-XII grossly intact. ABSENT: motor sensory deficit Psychiatric exam: PRESENT: agitated, anxious Skin exam: PRESENT: dry, warm Results Laboratory Results: 06/06/19 05:50 06/06/19 05:50 05/31/19 16:05 Troponin I < 0.012 Impressions: Chest X-Ray 05/31/19 16:52 IMPRESSION: Obstructive lung disease with lung parenchymal scarring at the right upper lobe and both bases. No acute findings Assessment & Plan - Diagnosis (1) Acute and chronic respiratory failure Qualifiers: Respiratory failure complication: hypoxia Qualified Code(s): J96.21 - Acute and chronic respiratory failure with hypoxia Is this a current diagnosis for this admission?: Yes (2) Decompensated COPD with exacerbation (chronic obstructive pulmonary disease) Is this a current diagnosis for this admission?: Yes (3) CAD (coronary artery disease) Qualifiers: Coronary Disease-Associated Artery/Lesion type: [place] artery Associated angina: without angina Is this a current diagnosis for this admission?: Yes (4) Anemia of chronic disease Is this a current diagnosis for this admission?: Yes (5) HTN (hypertension) Qualifiers: Hypertension type: essential hypertension Qualified Code(s): I10 - Essential (primary) hypertension Is this a current diagnosis for this admission?: Yes - Time Time Spent with patient: 25-34 minutes Level of Care: IMCU Medications reviewed and adjusted accordingly: Yes Anticipated discharge: Home with Homehealth Within: Other - Inpatient Certification Based on my medical assessment, after consideration of the patient's comorbidities, presenting symptoms, or acuity I expect that the services needed warrant INPATIENT care.: Yes I certify that my determination is in accordance with my understanding of Medicare's requirements for reasonable and necessary INPATIENT services [42 CFR 412.3e].: Yes Medical Necessity: Significant Comorbidiites Make Outpatient Treatment Too Risky, Need Close Monitoring Due to Risk of Patient Decompensation, Need For IV Fluids, Need For Continuous Telemetry Monitoring, Need for Nebulizer Therapy and Monitoring of Response, Need for IV Antibiotics, Risk of Complication if Not Cared For in Hospital, Risk of Diagnosis Which Will Require Inpatient Eval/Care/Monitoring Post Hospital Care: D/C [employer] T[employer] Installer Documentation - Plan Summary Plan Summary: D/C IV Levofloxacin and Cefepime. Start on oral Levofloxacin and Cefpodoxime therapy. Heplock IV fluid. Maintain on all other current medication management.
[2019-06-07] MEDS ORDERED: ONDANSETRON HCL INJ/PF 4 MG/2 ML SDV IV PRN (18:24)
[2019-06-07] MEDS ORDERED: LEVOFLOXACIN 500 MG TABLET PO SCH (22:00)
[2019-06-07] MEDS: ZOLPIDEM TARTRATE 5 MG TABLET PO PRN (22:22)
[2019-06-08] MEDS: LEVALBUTEROL HCL NEB 1.25 MG/3 ML AMPUL NEB PRN ×2 (01:58→09:27)
[2019-06-08] MEDS: PANTOPRAZOLE SODIUM 40 MG TABLET.DR PO SCH (05:29)
[2019-06-08] MEDS: ROPINIROLE HCL 1 MG TABLET PO SCH ×2 (05:29→13:53)
[2019-06-08] MEDS: OXYCODONE-ACETAMINOPHEN 5-325 MG TABLET PO PRN (05:35)
[2019-06-08] MEDS: DILTIAZEM HCL 180 MG CAPSULE.CR PO SCH (09:28)
[2019-06-08] MEDS: MULTIVITAMIN TABLET PO SCH (09:28)
[2019-06-08] MEDS: ALPRAZOLAM 0.5 MG TABLET PO PRN (09:29)
[2019-06-08] MEDS: CITALOPRAM HYDROBROMIDE 20 MG TABLET PO SCH (09:29)
[2019-06-08] MEDS: PREDNISONE 20 MG TABLET PO SCH (09:30)
[2019-06-08] MEDS: APIXABAN 5 MG TABLET PO SCH (09:30)
[2019-06-08] MEDS: ACETAZOLAMIDE 250 MG TABLET PO SCH (09:30)
[2019-06-08] MEDS: CLOTRIMAZOLE 10 MG TROCHE PO SCH ×3 (09:31→13:53)
[2019-06-08] MEDS: CYPROHEPTADINE HCL 4 MG TABLET PO SCH (09:32)
[2019-06-08] MEDS: CEFPODOXIME 200 MG TABLET PO SCH (09:33)
[2019-06-08] MEDS ORDERED: OXYCODONE HCL IR 5 MG TABLET PO PRN (09:44)
[2019-06-08] MEDS ORDERED: OXYCODONE-ACETAMINOPHEN 5-325 MG TABLET PO PRN (09:44)
--- NOTE | 2019-06-08 14:12 | PDOC DISCHARGE SUMMARY ---
Impression - Admit/DC Date/PCP Admission Date/Primary Care Provider: 05/31/19 20:30 SARITA CASTILLO Discharge Date: 06/08/19 - Discharge Diagnosis (1) Acute and chronic respiratory failure Is this a current diagnosis for this admission?: Yes (2) Decompensated COPD with exacerbation (chronic obstructive pulmonary disease) Is this a current diagnosis for this admission?: Yes (3) CAD (coronary artery disease) Is this a current diagnosis for this admission?: Yes (4) Anemia of chronic disease Is this a current diagnosis for this admission?: Yes (5) HTN (hypertension) Is this a current diagnosis for this admission?: Yes - Assessment Summary: Patient presented via EMS with decompensated respiratory function. She was admitted as a case of exacerbated COPD with concern for COVID-19 infection. She eventually tested negative for COVID-19 infection at this time. She was subsequently transferred to IMCU floor and continue on IV Solu Medrol, IV levofloxacin, and Cefepime therapy. he was eventually transition to oral Prednisone, Levofloxacin and cefpodoxime therapy. Her blood culture was no growth x 5 days of incubation. Her chest X ray on admission was devoid of any acute cardiopulmonary process. She will be discharged home on 5 days of Levofloxacin and Cefpodoxime therapy. She will follow up in the office or through telehealth as instructed upon discharge. - Additional Information Resuscitation Status: Full Code Referrals: SARITA CASTILLO MD [Primary Care Provider] - 06/13/19 10:00 am Prescriptions: Prednisone [Deltasone 5 mg Tablet] 5 mg PO ASDIR PRN #15 tablet PRN Reason: Levofloxacin [Levaquin 500 mg Tablet] 500 mg PO QHS #5 tablet Cefpodoxime Proxetil [Vantin 200 mg Tablet] 200 mg PO Q12 #10 tablet Home Medications: Acetazolamide [Diamox 250 mg Tab] 250 mg PO Q12 05/31/18 Alprazolam [Xanax 0.5 mg Tablet] 0.5 mg PO Q8HP PRN 05/31/18 Buspirone HCl [Buspar 15 mg Tablet] 7.5 mg PO Q8 05/31/18 Citalopram Hydrobromide [Celexa 40 mg Tablet] 40 mg PO DAILY 05/31/18 Montelukast Sodium [Singulair 10 mg Tablet] 10 mg PO QPM 05/31/18 Roflumilast [Daliresp 500 mcg Tablet] 500 mg PO QHS 05/31/18 Ropinirole HCl [Requip] 1 mg PO Q8 05/31/18 Zolpidem Tartrate [Ambien] 5 mg PO HSP PRN 05/31/18 Diltiazem HCl [Diltiazem 24Hr ER (Cd)] 180 mg PO Q12 08/09/18 Ranitidine HCl 150 mg PO BID 08/09/18 Oxycodone HCl/Acetaminophen [Endocet 7.5-325 mg Tablet] 1 tab PO Q6HP PRN 01/29/19 Cyproheptadine HCl [Periactin 4 mg Tablet] 4 mg PO BID #60 tablet 02/09/19 Acetylcysteine [Mucomist 10% Neb 400 mg/4 mL Vial] 200 mg IH BID 06/01/19 Apixaban [Eliquis 5 mg Tablet] 5 mg PO Q12 06/01/19 Multivitamin [Daily Multiple Vitamin] 1 tab PO DAILY 06/01/19 Ondansetron [Zofran Odt 4 mg Tablet] 4 mg PO BIDP PRN 06/01/19 Cefpodoxime Proxetil [Vantin 200 mg Tablet] 200 mg PO Q12 #10 tablet 06/08/19 Levofloxacin [Levaquin 500 mg Tablet] 500 mg PO QHS #5 tablet 06/08/19 Prednisone [Deltasone 5 mg Tablet] 5 mg PO ASDIR PRN #15 tablet 06/08/19 History of Present Illiness History of Present Illness: SUSAN BINGHAM is a 78 year old female patient who presented to the ED via EMS due to worsening difficulty with breathing over preceding several days. She was suppose to have follow up office visit but due to worsening difficulty with breathing and desaturation she was advised to go to ED for more urgent evaluation. She reported associated tightness in her chest, episodes of fever, chronic coughing with increase sputum production. She was not sure about her chin virus infection status but attended service for one of her son who was recently hospitalize. She denied any recent travel or exposure to person with or suspected of chin virus infection. She was administered nebulizer therapy en route to the ED with IV Solu Medrol by the EMS personnel. Her initial ED evaluation was significant for severe leukocytosis. Her chest X ray was remarkable to chronic changes without acute cardiopulmonary process. Her influenza and rapid tests were reported as negative. She is currently under investigation for COVID-19 infection. Her morbidities are as listed below Hospital Course Hospital Course: Patient presented via EMS with decompensated respiratory function. She was admitted as a case of exacerbated COPD with concern for COVID-19 infection. She eventually tested negative for COVID-19 infection at this time. She was subsequently transferred to [facility] floor and continue on IV Solu Medrol, IV levofloxacin, and Cefepime therapy. he was eventually transition to oral Prednisone, Levofloxacin and cefpodoxime therapy. Her blood culture was no growth x 5 days of incubation. Her chest X ray on admission was devoid of any acute cardiopulmonary process. She will be discharged home on 5 days of Levofloxacin and Cefpodoxime therapy. She will follow up in the office or through telehealth as instructed upon discharge. Physical Exam Vital Signs: Temp Pulse Resp BP Pulse Ox 98.0 F 73 18 131/51 H 95 06/08/19 11:47 06/08/19 11:47 06/08/19 11:47 06/08/19 11:47 06/08/19 11:47 Intake & Output 06/07/19 06/08/19 06/09/19 06:59 06:59 06:59 Intake Total 3710 2315 650 Output Total 1000 2000 400 Balance 2710 315 250 Weight 52.9 kg 55 kg General appearance: PRESENT: mild distress - remain on supplemental oxygen via nasal cannula. Eye exam: PRESENT: conjunctiva pink. ABSENT: pallor, scleral icterus Ear exam: PRESENT: normal external ear exam Mouth exam: PRESENT: moist Respiratory exam: PRESENT: decreased breath sounds, minimal rhonchi Cardiovascular exam: PRESENT: RRR. ABSENT: diastolic murmur, rubs, systolic murmur GI/Abdominal exam: PRESENT: normal bowel sounds, soft. ABSENT: distended, guarding, mass, organomegaly, rebound, tenderness Extremities exam: ABSENT: pedal edema Neurological exam: PRESENT: alert, awake, oriented to person, oriented to place, oriented to time, oriented to situation, CN II-XII grossly intact. ABSENT: motor sensory deficit Psychiatric exam: PRESENT: agitated, anxious Skin exam: PRESENT: dry, warm Results Laboratory Results: WBC 11.7 10^3/uL (4.0-10.5) H 06/06/19 05:50 RBC 4.61 10^6/uL (3.72-5.28) 06/06/19 05:50 Hgb 11.9 g/dL (12.0-15.5) L 06/06/19 05:50 Hct 37.6 % (36.0-47.0) 06/06/19 05:50 MCV 82 fl (80-97) 06/06/19 05:50 MCH 25.8 pg (27.0-33.4) L 06/06/19 05:50 MCHC 31.5 g/dL (32.0-36.0) L 06/06/19 05:50 RDW 19.6 % (11.5-14.0) H 06/06/19 05:50 Plt Count 349 10^3/uL (150-450) 06/06/19 05:50 Lymph % (Auto) Not Reportable 06/06/19 05:50 Gem % (Auto) Not Reportable 06/06/19 05:50 Eos % (Auto) Not Reportable 06/06/19 05:50 Baso % (Auto) Not Reportable 06/06/19 05:50 Absolute Neuts (auto) Not Reportable 06/06/19 05:50 Absolute Lymphs (auto) Not Reportable 06/06/19 05:50 Absolute Monos (auto) Not Reportable 06/06/19 05:50 Absolute Eos (auto) Not Reportable 06/06/19 05:50 Absolute Basos (auto) Not Reportable 06/06/19 05:50 Total Counted 100 06/06/19 05:50 Seg Neutrophils % Not Reportable 06/06/19 05:50 Seg Neuts % (Manual) 94 % (42-78) H 06/06/19 05:50 Band Neutrophils % 3 % (3-5) 05/31/19 16:05 Lymphocytes % (Manual) 3 % (13-45) L 06/06/19 05:50 Atypical Lymphs % 1 % (0) 06/04/19 02:20 Monocytes % (Manual) 3 % (3-13) 06/06/19 05:50 Eosinophils % (Manual) 0 % (0-6) 06/06/19 05:50 Basophils % (Manual) 0 % (0-2) 06/06/19 05:50 Abs Neuts (Manual) 11.0 10^3/uL (1.7-8.2) H 06/06/19 05:50 Abs Lymphs (Manual) 0.4 10^3/uL (0.5-4.7) L 06/06/19 05:50 Abs Monocytes (Manual) 0.4 10^3/uL (0.1-1.4) 06/06/19 05:50 Absolute Eos (Manual) 0.0 10^3/uL (0.0-0.6) 06/06/19 05:50 Abs Basophils (Manual) 0.0 10^3/uL (0.0-0.2) 06/06/19 05:50 Toxic Granulation SLIGHT 06/06/19 05:50 Toxic Vacuolation PRESENT 06/06/19 05:50 Platelet Comment ADEQUATE 06/06/19 05:50 Hypochromasia SLIGHT 06/06/19 05:50 Poikilocytosis 2+ 06/04/19 02:20 Anisocytosis 2+ 06/06/19 05:50 Tear Drop Cells SLIGHT 06/06/19 05:50 Ovalocytes 1+ 06/04/19 02:20 [place] Cells 1+ 06/04/19 02:20 Carbonic Acid 1.51 mmol/L (1.05-1.35) H 06/01/19 08:30 HCO3/H2CO3 Ratio 15:1 06/01/19 08:30 ABG pH 7.29 (7.35-7.45) L 06/01/19 08:30 ABG pCO2 50.1 mmHg (35-45) H 06/01/19 08:30 ABG pO2 85.7 mmHg (80-100) 06/01/19 08:30 ABG HCO3 23.3 mmol/L (20-24) 06/01/19 08:30 ABG Total CO2 24.9 mmol/L (21-25) 06/01/19 08:30 ABG O2 Saturation 95.3 % (94-98) 06/01/19 08:30 ABG Base Excess -3.5 mmol/L 06/01/19 08:30 FiO2 2L 06/01/19 08:30 Sodium 137.8 mmol/L (137-145) 06/06/19 05:50 Potassium 4.3 mmol/L (3.6-5.0) 06/06/19 05:50 Chloride 108 mmol/L (98-107) H 06/06/19 05:50 Carbon Dioxide 27 mmol/L (22-30) 06/06/19 05:50 Anion Gap 3 (5-19) L 06/06/19 05:50 BUN 33 mg/dL (7-20) H 06/06/19 05:50 Creatinine 0.90 mg/dL (0.52-1.25) 06/06/19 05:50 Est GFR ( Amer) > 60 (>60) 06/06/19 05:50 Est GFR (MDRD) Non-Af > 60 (>60) 06/06/19 05:50 Glucose 119 mg/dL (75-110) H 06/06/19 05:50 Calcium 8.5 mg/dL (8.4-10.2) 06/06/19 05:50 Total Bilirubin < 0.1 mg/dL (0.2-1.3) L 06/02/19 06:03 Direct Bilirubin Not Reportable 06/02/19 06:03 Neonat Total Bilirubin Not Reportable 06/02/19 06:03 Neonat Direct Bilirubin Not Reportable 06/02/19 06:03 Neonat Indirect Bili Not Reportable 06/02/19 06:03 AST 18 U/L (14-36) 06/02/19 06:03 ALT 11 U/L (<35) 06/02/19 06:03 Alkaline Phosphatase 74 U/L (38-126) 06/02/19 06:03 Troponin I < 0.012 ng/mL 05/31/19 16:05 Total Protein 6.4 g/dL (6.3-8.2) 06/02/19 06:03 Albumin 3.1 g/dL (3.5-5.0) L 06/02/19 06:03 Urine Color YELLOW 05/31/19 16:05 Urine Appearance CLOUDY 05/31/19 16:05 Urine pH 7.0 (5.0-9.0) 05/31/19 16:05 Ur Specific Leo 1.016 05/31/19 16:05 Urine Protein 30 mg/dL (NEGATIVE) H 05/31/19 16:05 Urine Glucose (UA) NEGATIVE mg/dL (NEGATIVE) 05/31/19 16:05 Urine Ketones NEGATIVE mg/dL (NEGATIVE) 05/31/19 16:05 Urine Blood NEGATIVE (NEGATIVE) 05/31/19 16:05 Urine Nitrite NEGATIVE (NEGATIVE) 05/31/19 16:05 Urine Bilirubin NEGATIVE (NEGATIVE) 05/31/19 16:05 Urine Urobilinogen NEGATIVE mg/dL (<2.0) 05/31/19 16:05 Ur Leukocyte Esterase NEGATIVE (NEGATIVE) 05/31/19 16:05 Urine WBC (Auto) 4 /HPF 05/31/19 16:05 Urine RBC (Auto) 2 /HPF 05/31/19 16:05 Squamous Epi Cells Auto <1 /HPF 05/31/19 16:05 Amorphous Sediment Auto TRACE /HPF 05/31/19 16:05 Urine Mucus (Auto) RARE /LPF 05/31/19 16:05 Urine Ascorbic Acid 40 (NEGATIVE) H 05/31/19 16:05 Stool Occult Blood NEGATIVE (NEGATIVE) 06/05/19 20:45 Stl C. Difficile GDH Ag NEGATIVE (NEGATIVE) 05/31/19 18:52 Stl C.difficile Tox A&B NEGATIVE (NEGATIVE) 05/31/19 18:52 COVID-19 Source NASOPHARYNGEAL 05/31/19 20:20 COVID-19 (CLEVE) NOT DETECTED 05/31/19 20:20 Influenza A (Rapid) NEGATIVE (NEGATIVE) 05/31/19 16:05 Influenza B (Rapid) NEGATIVE (NEGATIVE) 05/31/19 16:05 Group A Strep Rapid NEGATIVE (NEGATIVE) 05/31/19 16:05 Slides for Path Review PATHOLOGIST REVIEWED 05/31/19 16:05 Blood Type O POSITIVE 06/03/19 15:25 Antibody Screen NEGATIVE 06/03/19 15:25 Crossmatch See Detail 06/03/19 15:25 05/31/19 16:05 Troponin I < 0.012 Impressions: Chest X-Ray 05/31/19 16:52 IMPRESSION: Obstructive lung disease with lung parenchymal scarring at the right upper lobe and both bases. No acute findings Plan Health Concerns: High risk for readmission due to end stage of her COPD. Plan of Treatment: Close post acute care follow up and continue community support. Goals: Reduce readmission risk level. Stroke Is this a Stroke Patient?: No Acute Heart Failure - Is this a Heart Failure Patient?: No
[2019-06-08 14:56] VITALS: BP 134/49
== END 2019-06-08 15:34 | disposition home or self-care (01) | DRG 189 ==
LOC: ER 15:39 → EH 20:30 → 5 21:30 → 4W 06-04 16:08 → 3W 06-04 16:41
PROVIDERS: ADMIT Internal Medicine Geriatric Medicine; ATTEND Internal Medicine Geriatric Medicine
PROC: 30233N1 Transfusion of Nonautologous Red Blood Cells into Peripheral Vein, Percutaneous Approach (ICD-10-PCS; principal; 2019-06-03)
DX: J96.21 Acute and chronic respiratory failure with hypoxia (principal); J44.1 Chronic obstructive pulmonary disease with (acute) exacerbation; E78.00 Pure hypercholesterolemia, unspecified; I10 Essential (primary) hypertension; D64.9 Anemia, unspecified; K21.9 Gastro-esophageal reflux disease without esophagitis; I25.10 Atherosclerotic heart disease of native coronary artery without angina pectoris; G25.81 Restless legs syndrome; Z96.642 Presence of left artificial hip joint; Z03.818 Encounter for observation for suspected exposure to other biological agents ruled out; Z86.711 Personal history of pulmonary embolism; Z95.0 Presence of cardiac pacemaker; Z79.84 Long term (current) use of oral hypoglycemic drugs; Z79.891 Long term (current) use of opiate analgesic; Z79.899 Other long term (current) drug therapy
CPT/HCPCS: 36415; 36430; 36600; 71045; 80048; 80053; 81001; 82272; 82803; 84484; 85025; 86850; 86900; 86901; 86920; 87040; 87070; 87205; 87324; 87449; 87635; 87804; 87880; 93005; 93010; 94640; 96360; 99285; J0692; J1642; J1940; J1956; J2920; J2930; J3490; J7030; J7050; J7512; P9016

== ENCOUNTER → 2019-10-31 | Outpatient (CLI) | payer MEDICARE, OTHER ==
--- NOTE | 2019-10-31 17:25 | RADIOLOGY REPORT (SQ) ---
EXAM DESCRIPTION: CHEST PA/LATERAL IMAGES COMPLETED DATE/TIME: 10/31/2019 4:50 pm REASON FOR STUDY: BRONCHITIS, NOT SPECIFIED ACUTE OR CHRONIC J40 BRONCHITIS, NOT SPECIFIED AC TELLER OR CHRONIC COMPARISON: 05/31/2019. NUMBER OF VIEWS: Two view. TECHNIQUE: Frontal and lateral radiographic views of the chest acquired. LIMITATIONS: None. FINDINGS: LUNGS AND PLEURA: Chronic scarring. No opacities, masses or pneumothorax. No pleural effu ruchi. Attenuated blood vessels and flattened radha-diaphragms. MEDIASTINUM AND HILAR STRUCTURES: No masses. No contour abnormalities. HEART AND VASCULAR STRUCTURES: Heart normal in size and contour. No evidence for failure. BONES: No acute findings. Chronic changes in the spine. HARDWARE: Vascular port. Pacemaker. OTHER: No other significant finding. IMPRESSION: COPD. CHRONIC SCARRING. NO ACUTE RADIOGRAPHIC FINDING IN THE CHEST. TECHNICAL DOCUMENTATION: JOB ID: [id number] 2010 [employer]- All Rights Reserved Reading location - IP/workstation name: [email or web address]
[2019-10-31 18:01] LABS: ABSOLUTE BASOPHILS # (AUTO) 0.1 10^3/uL (0.0-0.2); ABSOLUTE EOSINOPHILS # (AUTO) 0.2 10^3/uL (0.0-0.6); ABSOLUTE LYMPHOCYTES (AUTO) 2.4 10^3/uL (0.5-4.7); ABSOLUTE MONOCYTES (AUTO) 1.2 10^3/uL (0.1-1.4); ABSOLUTE NEUT (AUTO) 10.4 10^3/uL (1.7-8.2); BASOPHILS % (AUTO) 0.6 % (0-2); EOSINOPHILS % (AUTO) 1.3 % (0-6); HEMATOCRIT 36.9 % (36.0-47.0); HEMOGLOBIN 11.6 g/dL (12.0-15.5); LYMPHOCYTES % (AUTO) 16.8 % (13-45); MEAN CORPUSCULAR HEMOGLOBIN 27.6 pg (27.0-33.4); MEAN CORPUSCULAR HGB CONC 31.4 g/dL (32.0-36.0); MEAN CORPUSCULAR VOLUME 88 fl (80-97); MONOCYTES % (AUTO) 8.4 % (3-13); PLATELET COUNT 387 10^3/uL (150-450); RED CELL DISTRIBUTION WIDTH 16.2 % (11.5-14.0); SEGMENTED NEUTROPHILS % (AUTO) 72.9 % (42-78); TOTAL CELLS COUNTED % (AUTO) 100 %; WHITE BLOOD COUNT 14.3 10^3/uL (4.0-10.5)
== END ==
LOC: OD 16:07
PROVIDERS: ATTEND Internal Medicine Pulmonary Disease
DX: J40 Bronchitis, not specified as acute or chronic (principal); J44.9 Chronic obstructive pulmonary disease, unspecified
CPT/HCPCS: 36415; 71046; 85025; 87070; 87077; 87205

== ENCOUNTER → 2019-11-13 | Day surgery (SDC) | payer MEDICARE, OTHER ==
[~2019-11-13] MED LIST changes: -CEFAZOLIN 1 GM/D5W RTU 1 GM/50 ML RTUPB IV ONE; -CEFAZOLIN 1 GM/D5W RTU 1 GM/50 ML RTUPB IV PRN; +CEFEPIME HCL 2 GM in DEXTROSE 5%-WATER 50 ML IV ONE; -DEXTROSE 5%-1/2 NORMAL SALINE 1,000 ML IV PRN; -DIAZEPAM 5 MG TABLET ONE; -DIAZEPAM 5 MG TABLET PO PRN; +NORMAL SALINE 10 ML SDV (AFTER EACH USE) IV PRN; +NORMAL SALINE 10 ML SDV (SCHEDULED) IV SCH; -OXYCODONE-ACETAMINOPHEN 5-325 MG TABLET ONE; -OXYCODONE-ACETAMINOPHEN 5-325 MG TABLET PO PRN
--- NOTE | 2019-11-13 11:27 | RADIOLOGY REPORT (SQ) ---
EXAM DESCRIPTION: PICC INSERTION IMAGES COMPLETED DATE/TIME: 11/13/2019 10:58 am REASON FOR STUDY: OTHER BACTERIAL INFECTIONS OF UNSPECIFIED SITE A49.8 OTHER BACTERIAL INFECTIONS O F UNSPECIFIED SITE COMPARISON: None. FLUOROSCOPY TIME: 8.43 minutes 1 images saved to PACS. TECHNIQUE: Fluoroscopic and ultrasound guided PICC placement. LIMITATIONS: None. PROCEDURE: After written consent and assessment were obtained, the patient was brought into the fluo roscopy room and placed supine on the table. Ultrasound evaluation of potential access sites were per formed. After successfully identifying a patent left upper extremity brachiocephalic vein, the left a rm was prepped and draped in a sterile fashion along with the ultrasound probe. The entry site was an esthetized with 1% lidocaine. A 21 gauge 7 cm needle was advanced through the skin and into the brach iocephalic vein under live ultrasound guidance. An ultrasound image was saved to PACS confirming acc ess site. A .018 guide wire was then inserted through the needle and into the venous system. The nee dle was then removed and an 11 blade scalpel was used to make a 1cm skin incision. A 5 fr peel-away sheath was advanced over the wire and into the venous system. A measurement was then made using the e xisting wire and live fluoroscopic guidance. The wire was then removed and the catheter trimmed. The PICC was advanced through the peel-away sheath and into the venous system. The PICC could not be adv anced into the SVC beyond the junction where the right edenilson cath and left pacer wires coincide. Mul tiple unsuccessful attempts were made using a 0.35 glidewire and a 5 [place] Kumpe catheter. Therefor e the catheter was trimmed and placed with the tip in the left brachiocephalic vein as a midline cath eter. The peel-away sheath was removed and the catheter was adhered to the patients arm with a stat lock. The catheter was then aspirated and flushed and a sterile bandage was placed over the access si te. A fluoroscopic spot image was saved to PACS confirming the catheter tip within the left brachioc ephalic vein. This catheter should not be used for power injections. IMPRESSION: SUCCESSFUL PLACEMENT OF A 5 FR SINGLE LUMEN 37 CM PICC IN THE LEFT BRACHIOCEPHALIC VEIN. SEE ABOVE FOR DETAILS. A MIDLINE CATHETER, THIS LINE SHOULD NOT BE USED FOR POWER INJECTIONS. COMMENT: Patient medication list reviewed: Yes- Quality ID# [id number]:Eligible professional attests to doc umenting in the medical record they obtained, updated, or reviewed the patient's current medications. . Quality ID 145: Final reports for procedures using fluoroscopy that document radiation exposure dionicio fredy, or exposure time and number of fluorographic images (if radiation exposure indices are not avail able) Quality ID #76: The patient was prepped and draped using maximum sterile barrier technique including cap, mask, sterile gown, sterile gloves, a large sterile sheet, hand hygiene, and 2% Chlorhexidine fo r cutaneous antisepsis. When ultrasound is used, sterile ultrasound techniques are followed requiring sterile gel and sterile probes. TECHNICAL DOCUMENTATION: JOB ID: [id number] 2010 [employer]- All Rights Reserved rev Reading location - IP/workstation name: [email or web address]
[2019-11-13 15:19] VITALS: BP 112/53
== END ==
LOC: RAD 09:07
PROVIDERS: ATTEND Internal Medicine Pulmonary Disease
DX: Z45.2 Encounter for adjustment and management of vascular access device (principal); A49.8 Other bacterial infections of unspecified site
CPT/HCPCS: 96365; 36573; C1887; C1769; J0692; J7060; J1642

== ENCOUNTER → 2019-12-12 | Outpatient (CLI) | payer MEDICARE, OTHER ==
--- NOTE | 2019-12-13 14:26 | RADIOLOGY REPORT (SQ) ---
EXAM DESCRIPTION: CT CHEST WITHOUT IMAGES COMPLETED DATE/TIME: 12/12/2019 2:26 pm REASON FOR STUDY: PULMONARY NODULE R91.1 SOLITARY PULMONARY NODULE COMPARISON: 01/29/2019 TECHNIQUE: CT scan performed of the chest without intravenous contrast. Images reviewed with lung, soft tissue and bone windows. Reconstructed coronal and sagittal MPR images reviewed. All images st ored on PACS. All CT scanners at this facility use dose modulation, iterative reconstruction, and/or weight based d osing when appropriate to reduce radiation dose to as low as reasonably achievable (ALARA). [facility]: Dose Right [facility]: CareDose [facility]: Dose Right [facility]: Teradose 4D [facility]: [employer] RADIATION DOSE: mGy. LIMITATIONS: No technical limitations. FINDINGS: LUNGS AND PLEURA: Marked centrilobular emphysematous changes are present. There is pleura l/parenchymal scarring in the lung bases, there is greater opacification in the right base than the l eft. There is a relatively stable left upper lobe pulmonary nodule that measures 10.2 x 6.4 mm on im age 26. This has a sub solid appearance. On the most analogous image of the previous study this marilyn sures 10.3 x 5.4 mm. HILAR AND MEDIASTINAL STRUCTURES: There are some small nonspecific mediastinal nodes. HEART AND VASCULAR STRUCTURES: No aneurysm. No pericardial effusion. Coronary artery calcifications are present. UPPER ABDOMEN: No significant findings. Limited exam. THYROID AND OTHER SOFT TISSUES: No masses. No adenopathy. BONES: Compression changes at T11 are stable. HARDWARE: None in the chest. OTHER: No other significant findings. IMPRESSION: Marked pulmonary emphysema. Relatively stable left upper lobe pulmonary nodule. Airspa ce disease in the right lower lobe, likely atelectasis. There is mild pleural/ parenchymal scarring in both lower lobes. Stable compression changes at T11. COMMENT: Fleischner Criteria for Ground Glass Nodules: >6-8 mm part solid single nodule: CT 3-6 mo to confirm persistence, if unchanged solid component janett ins < [address] should be performed for 5 yrs. TECHNICAL DOCUMENTATION: JOB ID: [id number] Quality ID # [id number]: Final reports with documentation of one or more dose reduction techniques (e.g., Au tomated exposure control, adjustment of the mA and/or kV according to patient size, use of iterative reconstruction technique) 2010 [employer]- All Rights Reserved Reading location - IP/workstation name: [email or web address]
== END ==
LOC: RAD 14:09
PROVIDERS: ATTEND Internal Medicine Pulmonary Disease
DX: J43.9 Emphysema, unspecified (principal); R91.1 Solitary pulmonary nodule
CPT/HCPCS: 71250